=== PATIENT | female | born 1950 | race Caucasian/White ===

== ENCOUNTER 2016-10-14 11:25 | Emergency (ER) | payer OTHER ==
[~2016-10-14] VITALS: Ht 167.6 cm; Wt 85.0 kg
[~2016-10-14 11:25] MED LIST: ATOR40TA PO; ATOR40TA49 PO; ECASA PO; METO25 PO; THIA100T PO; WARF5 PO; WARF5TAB PO
[2016-10-14 11:29] VITALS: BP 147/74; PULSE 93; RESP 15; TEMP 97.9; O2SAT 95
--- NOTE | 2016-10-14 13:16 | PD ---
HPI Chief Complaint: General Weakness Time Seen by Provider: 13:06 Travel History International Travel<30 days: No Contact w/Intl Traveler<30days: No Traveled to known affect area: No History of Present Illness HPI The patient was seen and examined in the presence of the nurse. This patient complains of generalized weakness. Duration is one month. Severity is mild to moderate. No alleviating factors. She denies fever or vomiting or diarrhea or melena or rectal bleeding. She denies feeling depressed or anxious. She has not followed up with her primary physician for this. PFSH Past Medical History Hx Anticoagulant Therapy: Yes (WARFARIN) Cerebrovascular Accident: Yes Diminished Hearing: No Genitourinary: No Hypertension: Yes Musculoskeletal: No Neurologic: No Reproductive: No Respiratory: No ?: Not Menopausal: Yes Social History Alcohol Use: Yes (Last drank 2 weeks ago. ) Tobacco Use: No Substance Use: Yes Allergies-Medications (Allergen,Severity, Reaction): Coded Allergies: No Known Allergies (Unverified , 10/14/16) Reported Meds & Prescriptions Reported Meds & Active Scripts Active Coumadin (Warfarin Sod) 5 Mg Tab 5 Mg PO DAILY@16 30 Days Vitamin B1 (Thiamine HCl) 100 Mg Tab 100 Mg PO DAILY 30 Days Metoprolol Tartrate 25 mg (Metoprolol Tartrate) 25 Mg Tab 12.5 Mg PO Q12HR 30 Days Lipitor 40 Mg Tab (Atorvastatin Calcium) 40 Mg Tab 40 Mg PO HS 30 Days Aspirin EC (Aspirin) 325 Mg Tab 81 Mg PO DAILY 30 Days Review of Systems General / Constitutional: No: Fever Eyes: No: Visual changes HENT: No: Headaches Cardiovascular: No: Chest Pain or Discomfort Respiratory: No: Shortness of Breath Gastrointestinal: No: Abdominal Pain Genitourinary: No: Dysuria Musculoskeletal: Positive: Weakness, No: Pain Skin: No Rash Neurologic: Positive: Weakness Psychiatric: No: Depression Endocrine: No: Polydipsia Hematologic/Lymphatic: No: Easy Bruising Physical Exam Narrative GENERAL: Well-nourished, well-developed patient in no apparent distress. SKIN: Warm and dry. HEAD: Atraumatic. Normocephalic. EYES: Pupils equal and round. No scleral icterus. No injection or drainage. ENT: No nasal bleeding or discharge. Mucous membranes pink and moist. NECK: Trachea midline. No JVD. CARDIOVASCULAR: Regular rate and rhythm. No murmur appreciated. RESPIRATORY: No accessory muscle use. Clear to auscultation. Breath sounds equal bilaterally. GASTROINTESTINAL: Abdomen soft, non-tender, nondistended. Hepatic and splenic margins not palpable. MUSCULOSKELETAL: No obvious deformities. No clubbing. No cyanosis. No edema. NEUROLOGICAL: Awake and alert. No obvious cranial nerve deficits. Motor grossly within normal limits. Normal speech. PSYCHIATRIC: Appropriate mood and affect; insight and judgment normal. Data Data Last Documented VS Vital Signs Date Time Temp Pulse Resp B/P Pulse Ox O2 Delivery O2 Flow Rate FiO2 10/14/16 13:15 16 96 Room Air 10/14/16 11:29 97.9 93 147/74 Orders Complete Blood Count With Diff (10/14/16 13:09) Comprehensive Metabolic Panel (10/14/16 13:09) Urinalysis - C+S If Indicated (10/14/16 13:09) Labs Laboratory Tests Test 10/14/16 13:43 White Blood Count 8.3 TH/MM3 Red Blood Count 4.33 MIL/MM3 Hemoglobin 12.9 GM/DL Hematocrit 37.6 % Mean Corpuscular Volume 87.0 FL Mean Corpuscular Hemoglobin 29.7 PG Mean Corpuscular Hemoglobin 34.2 % Concent Red Cell Distribution Width 13.4 % Platelet Count 300 TH/MM3 Mean Platelet Volume 10.4 FL Neutrophils (%) (Auto) 57.8 % Lymphocytes (%) (Auto) 31.0 % Monocytes (%) (Auto) 5.8 % Eosinophils (%) (Auto) 4.0 % Basophils (%) (Auto) 1.4 % Neutrophils # (Auto) 4.8 TH/MM3 Lymphocytes # (Auto) 2.6 TH/MM3 Monocytes # (Auto) 0.5 TH/MM3 Eosinophils # (Auto) 0.3 TH/MM3 Basophils # (Auto) 0.1 TH/MM3 CBC Comment AUTO DIFF Differential Comment AUTO DIFF CONFIRMED Platelet Estimate NORMAL Platelet Morphology Comment HYPOGRAN Urine Color YELLOW Urine Turbidity CLEAR Urine pH 6.5 Urine Specific [place] 1.021 Urine Protein NEG mg/dL Urine Glucose (UA) NEG mg/dL Urine Ketones NEG mg/dL Urine Occult Blood NEG Urine Nitrite NEG Urine Bilirubin NEG Urine Urobilinogen 2.0 MG/DL Urine Leukocyte Esterase MOD Urine RBC 1 /hpf Urine WBC 3 /hpf Urine Squamous Epithelial 1 /hpf Cells Urine Bacteria RARE /hpf Urine Mucus FEW /lpf Microscopic Urinalysis Comment CULT NOT INDICATED Sodium Level 141 MEQ/L Potassium Level 4.9 MEQ/L Chloride Level 107 MEQ/L Carbon Dioxide Level 25.6 MEQ/L Anion Gap 8 MEQ/L Blood Urea Nitrogen 20 MG/DL Creatinine 0.93 MG/DL Estimat Glomerular Filtration 61 ML/MIN Rate Random Glucose 106 MG/DL Calcium Level 9.2 MG/DL Total Bilirubin 0.5 MG/DL Aspartate Amino Transf 50 U/L (AST/SGOT) Alanine Aminotransferase 33 U/L (ALT/SGPT) Alkaline Phosphatase 78 U/L Total Protein 8.0 GM/DL Albumin 3.9 GM/DL [facility] Medical Decision Making Medical Screen Exam Complete: Yes Emergency Medical Condition: Yes Medical Record Reviewed: Yes Differential Diagnosis Anemia, renal failure, flu syndrome, depression Narrative Course I have reviewed the patient's electronic medical record. Was seen here last year for adjustment disorder with depressed mood as well as intoxication of alcohol IV placed CBC is normal Metabolic profile is normal LFTs are normal Urinalysis is negative Patient's examination and vital signs are normal. Etiology of her jaws weakness is unclear but she is very stable for outpatient follow-up Diagnosis Primary Impression: Generalized weakness Additional Instructions: The patient was advised to follow up with their physician and return if they worsen. Med/Other Pt SpecificInfo: Other Disposition: 01 DISCHARGE HOME Condition: Stable Raul Ballard MD Oct 14, 2016 13:15
[2016-10-14 14:32] LABS: BACTERIA, URINE RARE /hpf; BLOOD, URINE NEG (NEG); COMMENT (UR) CULT NOT INDICATED; CULTURE IF INDICATED CULT NOT INDICATED; GLUCOSE,URINE NEG (NEG); KETONE, URINE NEG (NEG); MUCUS URINE FEW /lpf (OCC); NITRITE,URINE NEG (NEG); PH, URINE 6.5 (5.0-8.5); SQUAMOUS EPITHELIAL CELL URINE 1 /hpf (0-5); URINE COLOR YELLOW (YELLW/STRAW)
[2016-10-14 14:33] LABS: AUTOMATED NEUTROPHIL # 4.8 TH/MM3 (1.8-7.7); BASOPHIL # 0.1 TH/MM3 (0-0.2); BASOPHIL % 1.4 % (0.0-2.0); EOSINOPHIL # 0.3 TH/MM3 (0-0.4); HEMATOCRIT 37.6 % (35.0-46.0); LYMPHOCYTE # 2.6 TH/MM3 (1.0-4.8); MEAN CORPUSCULAR HEMOGLOBIN 29.7 PG (27.0-34.0); MEAN CORPUSCULAR HGB CONC 34.2 % (32.0-36.0); MONO % 5.8 % (0.0-8.0); NEUT % 57.8 % (16.0-70.0); PLATELET COUNT 300 TH/MM3 (150-450); RED BLOOD COUNT 4.33 MIL/MM3 (4.00-5.30); RED CELL DISTRIBUTION WIDTH 13.4 % (11.6-17.2); WHITE BLOOD COUNT 8.3 TH/MM3 (4.0-11.0)
[2016-10-14 14:37] LABS: HEMO FLAGS AUTO DIFF
[2016-10-14 14:49] LABS: ALKALINE PHOSPHATASE 78 U/L (45-117); TOTAL BILIRUBIN ADULT 0.5 MG/DL (0.2-1.0)
[2016-10-14 15:00] LABS: ALT (GPT) 33 U/L (10-53); ANION GAP 8 MEQ/L (5-15); AST (GOT) 50 U/L (15-37); BICARBONATE 25.6 MEQ/L (21.0-32.0); BLOOD UREA NITROGEN 20 MG/DL (7-18); CHLORIDE 107 MEQ/L (98-107); GLOMERULAR FILTRATION RATE 61 ML/MIN (>89); SODIUM (NA) 141 MEQ/L (136-145)
[2016-10-14 15:07] LABS: PLATELET ESTIMATE SMEAR NORMAL (NORMAL); PLATELET MORPHOLOGY HYPOGRAN (NORMAL); SCAN/DIFF AUTO DIFF CONFIRMED
[2016-10-14 15:18] LABS: POTASSIUM 4.9 MEQ/L (3.5-5.1)
[2016-10-14 16:30] VITALS: BP 132/76
[2016-10-28] MEDS ORDERED: VENTAER INH (11:56)
[2016-10-28] MEDS ORDERED: ALBU0.08 NEB (11:56)
[2016-10-28] MEDS ORDERED: ADVA250A INH (11:56)
[2016-10-28] MEDS ORDERED: METH125I2 IM (11:57)
== END 2016-10-14 16:35 | disposition home or self-care (01) ==
LOC: NEPE 11:25 → MERGE 11:25 → NEPE 16:35
DX: R53.1 Weakness (principal); I10 Essential (primary) hypertension; Z79.01 Long term (current) use of anticoagulants
CPT/HCPCS: 80053; 81001; 85025; 99284

== ENCOUNTER 2016-11-04 13:04 | Inpatient (IN) | payer OTHER ==
[2016-11-04] VITALS (7 sets, daily range): BP systolic 129–185; BP diastolic 67–91; PULSE 70–79; RESP 16–20; TEMP 98.2; O2SAT 90–99
[~2016-11-04] VITALS: Ht 165.1 cm; Wt 83.0 kg
[~2016-11-04 13:04] MED LIST changes: +ADVA250A INH; +ALBU0.08 NEB; -ATOR40TA PO; +VENTAER INH; -WARF5TAB PO
--- NOTE | 2016-11-04 13:21 | PD ---
Physical Exam Date Seen by Provider: Nov 04, 2016 Time Seen by Provider: 13:14 Narrative Patient seen in Triage with New onset difficulty with Speech and weakness and difficulty with walking. patient Denies MORGAN. Patient and Daughter are unsure of last time Normal. Patient denies Fever or Chills. Patient Oriented X3 but slow to respond. Patient has normal Finger to nose testing. Cannot spell WORLD backwards. Patient able to Ambulate. Vital Signs Stable. Patient awaiting Bed Placement. Data Data Last Documented VS Vital Signs Date Time Temp Pulse Resp B/P Pulse Ox O2 Delivery O2 Flow Rate FiO2 11/04/16 13:07 98.2 76 20 185/91 92 Room Air [facility] Medical Record Reviewed: Yes Supervised Visit with ANGEL: Yes Condition: Stable Panchito Douglas Nov 04, 2016 13:21
[2016-11-04] MEDS ORDERED: SODIUM CHLORIDE 0.9% FLUSH 10 ML FLUSH IVF PRN (13:45)
[2016-11-04 14:05] LABS: AUTOMATED NEUTROPHIL # 5.2 TH/MM3 (1.8-7.7); BASOPHIL # 0.1 TH/MM3 (0-0.2); BASOPHIL % 0.9 % (0.0-2.0); EOSINOPHIL # 0.1 TH/MM3 (0-0.4); EOSINOPHIL % 1.8 % (0.0-4.0); HEMATOCRIT 41.7 % (35.0-46.0); HEMO FLAGS DIFF FINAL; LYMPH % 24.6 % (9.0-44.0); MEAN CELL VOLUME 84.8 FL (80.0-100.0); MEAN CORPUSCULAR HEMOGLOBIN 28.3 PG (27.0-34.0); MEAN CORPUSCULAR HGB CONC 33.4 % (32.0-36.0); MONO % 7.8 % (0.0-8.0); NEUT % 64.9 % (16.0-70.0); PLATELET COUNT 267 TH/MM3 (150-450); RED BLOOD COUNT 4.92 MIL/MM3 (4.00-5.30); RED CELL DISTRIBUTION WIDTH 13.5 % (11.6-17.2)
[2016-11-04 14:12] LABS: APTT (PATIENT) 28.9 SEC (24.3-30.1)
[2016-11-04 14:17] LABS: ALT (GPT) 50 U/L (10-53); ANION GAP 7 MEQ/L (5-15); AST (GOT) 14 U/L (15-37); BICARBONATE 25.9 MEQ/L (21.0-32.0); BLOOD UREA NITROGEN 18 MG/DL (7-18); CHLORIDE 111 MEQ/L (98-107); GLOMERULAR FILTRATION RATE 76 ML/MIN (>89); POTASSIUM 3.5 MEQ/L (3.5-5.1); SODIUM (NA) 144 MEQ/L (136-145)
[2016-11-04 14:21] LABS: ALKALINE PHOSPHATASE 81 U/L (45-117); TOTAL BILIRUBIN ADULT 0.4 MG/DL (0.2-1.0)
[2016-11-04 14:23] LABS: BACTERIA, URINE FEW /hpf; BLOOD, URINE NEG (NEG); GLUCOSE,URINE NEG (NEG); HYALINE CAST, URINE 1 /lpf (RARE); KETONE, URINE NEG (NEG); MUCUS URINE FEW /lpf (OCC); NITRITE,URINE NEG (NEG); PH, URINE 5.5 (5.0-8.5); SQUAMOUS EPITHELIAL CELL URINE 2 /hpf (0-5); URINE COLOR DARK-YELLOW (YELLW/STRAW)
[2016-11-04 14:24] LABS: CREATINE KINASE 36 U/L (26-192)
[2016-11-04 14:25] LABS: COMMENT (UR) CATH-CULTURE IND; CULTURE IF INDICATED CATH CULTURE IND
[2016-11-04 14:27] LABS: AMPHETAMINE, URINE NEG (NEG); BARBITURATES, URINE NEG (NEG); COCAINE, URINE NEG (NEG)
--- NOTE | 2016-11-04 14:28 | RADRPT ---
EXAM DATE/TIME: 11/04/2016 13:44 [facility] COMPARISON: MRI BRAIN W/O CONTRAST, April 13, 2016, 12:37. CT BRAIN W/O CONTRAST, April 12, 2016, 10:48. INDICATIONS : Aphasia and unsteady gait with left facial droop. RADIATION DOSE: 56.35 CTDIvol (mGy) MEDICAL HISTORY : Stroke. Hypertension. SURGICAL HISTORY : None. ENCOUNTER: Initial ACUITY: 1 day PAIN SCALE: 0/10 LOCATION: cranial TECHNIQUE: Multiple contiguous axial images were obtained of the head. Using automated exposure control and adj ustment of the mA and/or kV according to patient size, radiation dose was kept as low as reasonably a chievable to obtain optimal diagnostic quality images. FINDINGS: CEREBRUM: There is 4.8 x 3.6 cm area of hypodensity in the left frontal lobe that is new compared to the prior studies of April 2016. There is mild mass effect on the anterior horns of the lateral ventricles and 3 mm midline shift to the left frontal lobe. No evidence of acute hemorrhage. POSTERIOR FOSSA: The cerebellum and brainstem are intact. The 4th ventricle is midline. The cerebellopontine angle i s unremarkable. EXTRACRANIAL: The visualized portion of the orbits is intact. SKULL: The calvaria is intact. No evidence of skull fracture. CONCLUSION: Prominent area of left frontal hypodensity indicating an acute infarct in the distrib ution of the left anterior cerebral artery/anterior division middle cerebral artery. Mild mass effect on the anterior horns of the lateral ventricle and mild left to right midline shift. No evidence of acute hemorrhage. Sami Mccarthy MD on November 04, 2016 at 14:14 Board Certified Radiologist. This report was verified electronically.
--- NOTE | 2016-11-04 14:30 | RADRPT ---
EXAM DATE/TIME: 11/04/2016 13:41 [facility] COMPARISON: CHEST SINGLE AP, April 12, 2016, 10:14. INDICATIONS : Patient has had stroke like symptoms since this morning. MEDICAL HISTORY : Hypertension. SURGICAL HISTORY : None. ENCOUNTER: Initial ACUITY: 1 day PAIN SCORE: 0/10 LOCATION: Bilateral chest FINDINGS: The cardiac silhouette is enlarged in transverse diameter. The lungs are free of acute parenchymal op acity. No effusions are identified. The aortic knob is prominent with tortuosity of the descending th oracic aorta. CONCLUSION: 1. Cardiomegaly. No acute pulmonary disease. Terrence Redd MD on November 04, 2016 at 14:16 Board Certified Radiologist. This report was verified electronically.
--- NOTE | 2016-11-04 14:56 | PD ---
HPI Chief Complaint: Neuro Symptoms/ Deficits Time Seen by Provider: 14:51 Travel History International Travel<30 days: No Contact w/Intl Traveler<30days: No Traveled to known affect area: No History of Present Illness HPI 65-year-old female with history of hypertension, CAD, VT, CVA, presents to emergency department for evaluation. She thinks she may have had a stroke. Patient's daughter states that she went to pick her up this morning and noticed that she was acting differently. She states she was very slow to respond and seemed "in a daze." She states when she spoke to her on the phone this morning she seemed very tired in the same way. The patient states that she woke up "in a fog." Denies any headache. No head trauma. No other focal deficits or weakness. Patient has not had any chest or tightness. She has had no recent illnesses, fever, or chills. Patient has not taken any of her prescribed Coumadin, antihypertensives, or antipsychotics for several months by her own will. She has no other symptoms to report at this time. PFSH Past Medical History Hx Anticoagulant Therapy: Yes (WARFARIN) Anxiety: Yes Depression: Yes Cardiovascular Problems: Yes Cerebrovascular Accident: Yes Diminished Hearing: No Genitourinary: No Hypertension: Yes Musculoskeletal: No Neurologic: No Reproductive: No Respiratory: No Myocardial Infarction: Yes (2016) Tetanus Vaccination: Unknown Influenza Vaccination: No ?: Not Menopausal: Yes : 3 Para: 3 Miscarriage: 0 : 0 Past Surgical History Surgical History: No Previous Surgery Social History Alcohol Use: Yes (HX) Tobacco Use: No Substance Use: No Allergies-Medications (Allergen,Severity, Reaction): Coded Allergies: No Known Allergies (Unverified , 10/14/16) Reported Meds & Prescriptions Reported Meds & Active Scripts Active No Active Prescriptions or Reported Medications Review of Systems Except as stated in HPI: all other systems reviewed are Neg Physical Exam Narrative GENERAL: Well-nourished female patient, in no acute distress SKIN: Focused skin assessment warm/dry. HEAD: Atraumatic. Normocephalic. Slight right sided facial paralysis noted most at rest. EYES: Pupils equal and round. No scleral icterus. No injection or drainage. EOMI. ENT: No nasal bleeding or discharge. Mucous membranes pink and moist. NECK: Trachea midline. No JVD. CARDIOVASCULAR: Regular rate and rhythm. No murmur appreciated. RESPIRATORY: No accessory muscle use. Clear to auscultation. Breath sounds equal bilaterally. GASTROINTESTINAL: Abdomen soft, non-tender, nondistended. Hepatic and splenic margins not palpable. MUSCULOSKELETAL: No obvious deformities. No clubbing. No cyanosis. No edema. Slight weakness in the right upper extremity when compared to left on ediscovery project manager strength. No pronator drift. Equal strength bilateral lower extremities. NEUROLOGICAL: Awake and alert. No obvious cranial nerve deficits. Motor grossly within normal limits. Delayed response but Clear speech. PSYCHIATRIC: Flat affect. Data Data Last Documented VS Vital Signs Date Time Temp Pulse Resp B/P Pulse Ox O2 Delivery O2 Flow Rate FiO2 11/04/16 13:42 96 Nasal Cannula 2 11/04/16 13:35 73 17 11/04/16 13:07 98.2 185/91 Orders Electrocardiogram (11/04/16 13:38) Prothrombin Time / Inr (Pt) (11/04/16 13:38) Act Partial Throm Time (Ptt) (11/04/16 13:38) Complete Blood Count With Diff (11/04/16 13:38) Comprehensive Metabolic Panel (11/04/16 13:38) Creatine Kinase (Cpk) (11/04/16 13:38) Drug Screen, Random Urine (11/04/16 13:38) Troponin I (11/04/16 13:38) Urinalysis - C+S If Indicated (11/04/16 13:38) Ct Brain W/O Iv Contrast(Rout) (11/04/16 13:38) Chest, Single Ap (11/04/16 13:38) Ecg Monitoring (11/04/16 13:38) Iv Access Insert/Monitor (11/04/16 13:38) Oximetry (11/04/16 13:38) Sodium Chloride 0.9% Flush (Ns Flush) (11/04/16 13:45) Urine Culture (11/04/16 14:10) Aspirin (Aspirin) (11/04/16 15:15) Consult Neurology (11/04/16 ) Labs Laboratory Tests Test 11/04/16 11/04/16 13:44 14:10 White Blood Count 8.0 TH/MM3 Red Blood Count 4.92 MIL/MM3 Hemoglobin 13.9 GM/DL Hematocrit 41.7 % Mean Corpuscular Volume 84.8 FL Mean Corpuscular Hemoglobin 28.3 PG Mean Corpuscular Hemoglobin 33.4 % Concent Red Cell Distribution Width 13.5 % Platelet Count 267 TH/MM3 Mean Platelet Volume 9.4 FL Neutrophils (%) (Auto) 64.9 % Lymphocytes (%) (Auto) 24.6 % Monocytes (%) (Auto) 7.8 % Eosinophils (%) (Auto) 1.8 % Basophils (%) (Auto) 0.9 % Neutrophils # (Auto) 5.2 TH/MM3 Lymphocytes # (Auto) 2.0 TH/MM3 Monocytes # (Auto) 0.6 TH/MM3 Eosinophils # (Auto) 0.1 TH/MM3 Basophils # (Auto) 0.1 TH/MM3 CBC Comment DIFF FINAL Differential Comment Prothrombin Time 11.0 SEC Prothromb Time International 1.0 RATIO Ratio Activated Partial 28.9 SEC Thromboplast Time Sodium Level 144 MEQ/L Potassium Level 3.5 MEQ/L Chloride Level 111 MEQ/L Carbon Dioxide Level 25.9 MEQ/L Anion Gap 7 MEQ/L Blood Urea Nitrogen 18 MG/DL Creatinine 0.77 MG/DL Estimat Glomerular Filtration 76 ML/MIN Rate Random Glucose 105 MG/DL Calcium Level 9.3 MG/DL Total Bilirubin 0.4 MG/DL Aspartate Amino Transf 14 U/L (AST/SGOT) Alanine Aminotransferase 50 U/L (ALT/SGPT) Alkaline Phosphatase 81 U/L Total Creatine Kinase 36 U/L Troponin I LESS THAN 0.02 NG/ML Total Protein 7.6 GM/DL Albumin 3.7 GM/DL Urine Color DARK-YELLOW Urine Turbidity HAZY Urine pH 5.5 Urine Specific [place] 1.033 Urine Protein TRACE mg/dL Urine Glucose (UA) NEG mg/dL Urine Ketones NEG mg/dL Urine Occult Blood NEG Urine Nitrite NEG Urine Bilirubin NEG Urine Urobilinogen 2.0 MG/DL Urine Leukocyte Esterase SMALL Urine RBC LESS THAN 1 /hpf Urine WBC 4 /hpf Urine Squamous Epithelial 2 /hpf Cells Urine Bacteria FEW /hpf Urine Hyaline Casts 1 /lpf Urine Mucus FEW /lpf Microscopic Urinalysis Comment CATH-CULTURE IND Urine Opiates Screen NEG Urine Barbiturates Screen NEG Urine Amphetamines Screen NEG Urine Benzodiazepines Screen NEG Urine Cocaine Screen NEG Urine Cannabinoids Screen NEG MDM Medical Decision Making Medical Screen Exam Complete: Yes Emergency Medical Condition: Yes Medical Record Reviewed: Yes Differential Diagnosis CVA versus TIA versus electrolyte abnormality Narrative Course 65-year-old female presents to the emergency department. Patient appears without distress. She is slow to respond to my questions but answers them appropriately. Questionable right sided facial paralysis at rest with slight weakness in ediscovery project manager strength of the right upper extremity. CT imaging of the brain is complete and shows Last Impressions Head CT 11/04/16 1338 Signed Impressions: Service Date/Time: October 13:44 - CONCLUSION: Prominent area of left frontal hypodensity indicating an acute infarct in the distribution of the left anterior cerebral artery/anterior division middle cerebral artery. Mild mass effect on the anterior horns of the lateral ventricle and mild left to right midline shift. No evidence of acute hemorrhage. Sami Mccarthy MD Chest X-Ray 11/04/168 Signed Impressions: Service Date/Time: October 13:41 - CONCLUSION: 1. Cardiomegaly. No acute pulmonary disease. Terrence Redd MD CBC and CMP are without acute concern. Troponin is less than 0.02. Urinalysis is hazy with small leukocyte esterase, few bacteria, few mucus. Culture is indicated. I discussed the patient with my attending physician Dr. Ballard. Will wait on culture to treat UTI. A call has a place to Dr. Mcnulty. [id number] Mcnulty regarding CT results. He requests admission to medicine. Aspirin 325 mg daily. He will come and evaluate her in the emergency department. A call has been made to [facility] for admission. Diagnosis Primary Impression: CVA (cerebral vascular accident) Qualified Code: I63.9 - Cerebrovascular accident (CVA), unspecified mechanism Admitting Information Admitting Physician Requests: Admit Scripts No Active Prescriptions or Reported Meds Condition: Stable Shaina Fuentes Nov 04, 2016 14:56
[2016-11-04] MEDS ORDERED: ASPIRIN 325 MG TAB PO ONE (15:15)
[2016-11-04] MEDS ORDERED: SODIUM CHLORIDE 0.9% FLUSH 10 ML FLUSH IV FLUSH PRN (15:30)
[2016-11-04] MEDS ORDERED: DEXTROSE 50% IN WATER 50 ML VIAL(D50) IV PUSH PRN (15:30)
[2016-11-04] MEDS ORDERED: GLUCAGON 1 MG/ML VIAL IM/SQ PRN (15:30)
[2016-11-04] MEDS: SODIUM CHLOR 0.9% 1000 ML INJ 1,000 ML IV SCH (15:55)
[2016-11-04] MEDS: INSULIN ASPART SUPPLEMENTAL SCALE SQ SCH ×2 (16:00→21:00)
[2016-11-04] MEDS ORDERED: RESP: ALBUTEROL 2.5 MG/IPRATROPIUM 0.5 MG NEB (PRN) NEB (16:45)
[2016-11-04] MEDS ORDERED: ENALAPRILAT 1.25 MG/ML VIAL IV PRN (16:45)
--- NOTE | 2016-11-04 16:51 | MB ---
cc: DALLAS HARO M.D. DATE OF CONSULTATION: 11/04/2016 REASON FOR CONSULTATION Stroke. HISTORY OF PRESENT ILLNESS Ms. Rivas is a 65-year-old female who has a history of previous stroke many years ago for which she was on Coumadin but no longer takes Coumadin. This morning she woke up and was having some trouble with her thoughts, was feeling somewhat vague, some difficulty getting words out and thought she had some mild weakness on the right side. She woke up with these symptoms. She came to the emergency room and on CT scan she was found to have a left hemisphere stroke. PAST MEDICAL HISTORY She has a history of previous stroke in the past a number of years ago. No known history of atrial fibrillation, history of coronary artery disease, [place], hypertension. ALLERGIES NONE KNOWN. MEDICATIONS Medications at home are none. NEUROLOGIC EXAMINATION VITAL SIGNS: Blood pressure is 185/91, pulse 76, respirations 20, temperature 98 degrees. Higher cortical function: She is alert, oriented x2. Her speech is somewhat slow but is fluent. No evidence of any definite aphasia. She follows commands well. Cranial nerves intact. On motor exam she has got 5/5 strength of all groups. There is a mild pronator drift right upper extremity. She does have weakness of the right leg at 4/5. Fine motor skills are normal. Reflexes 2+ symmetric in the upper and lower extremities. IMAGING CT of the brain shows an area of hypodensity in the left frontal area consistent with acute stroke in the distribution of the left anterior cerebral artery. LABORATORY DATA The white count is 8000, hemoglobin 13.9, hematocrit 41%, platelets 267,000. PT 11, INR 1, APTT 28.9. Sodium is 144, potassium 3.5, chloride 111, CO2 is 25.9, the BUN is 18, creatinine 0.77, GFR 76, glucose 105, AST 14, ALT is 50. Tox screen negative. EKG sinus rhythm. IMPRESSION Left anterior cerebral artery distribution stroke. RECOMMENDATIONS Start aspirin 325 mg daily. We will obtain an MRI/MRA of the brain, lipid panel, carotid ultrasound and echocardiogram. Monitor cardiac telemetry, rule out atrial fibrillation. MD LINDA Muñiz/RAF /3:29 PM /4:39 PM
--- NOTE | 2016-11-04 16:58 | HHI.HP ---
HPI Service [facility] Primary Care Physician Ronda Mims MD Admission Diagnosis Acute CVA Diagnoses: Chief Complaint: Feeling down Travel History International Travel<30 Days: No Contact w/Intl Traveler <30 Da: No Traveled to Known Affected Are: No History of Present Illness 65-year-old female with past medical history of CAD, CVA, COPD, HTN who presented for altered mental status. The patient states that she's been feeling down for the past few days. She denies any acute worsening today. She complains of feeling generally weak, no focal weakness. She complains of some lightheadedness. She denies any chest pain, shortness breath, palpitations, vision changes, headache, slurred speech. She states she's been able to ambulate. Reportedly, the patient's daughter had noted that the patient was acting strange today and was slow to respond. The patient denies any recent illness, fever, chills, nausea, vomiting, diarrhea. The patient states that she is only taking breathing treatments at home, on no other medications. She states the date is November 08, 2016, knows she's in [place], knows her date. Review of Systems Except as stated in HPI: all other systems reviewed are Neg Past Family Social History Past Medical History Hypertension Coronary artery disease with history of [place] COPD Past Surgical History None Reported Medications "Breathing treatments" Allergies: Coded Allergies: No Known Allergies (Unverified , 10/14/16) Active Ordered Medications Current Medications Medications (Trade) Dose Ordered Sig/Ora Route Start Time Stop Time Status Last Admin (NS Flush) 2 ml BID IV FLUSH 11/04/16 21:00 Sodium Chloride 2 ml 2 ml UNSCH PRN IV FLUSH 11/04/16 15:30 (NS 1000 ml Inj) 1,000 ml @ 70 mls/hr [id number] IV 11/04/16 15:29 11/04/16 15:55 (Aspirin) 325 mg DAILY PO 11/05/16 09:00 (D50w (Vial) Inj) 25 ml UNSCH PRN IV PUSH 11/04/16 15:30 (Glucagon Inj) 1 mg UNSCH PRN IM/SQ 11/04/16 15:30 Family History Reviewed, patient denies any pertinent family history related to current chief complaint Social History 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 In no acute distress. Slow to respond sometimes. Avoids eye contact. SKIN: Warm and dry. No lesions noted. HEENT: Normocephalic. Pupils equal and round. Mucous membranes pink and moist. CARDIOVASCULAR: Regular rate and rhythm. No murmur appreciated. RESPIRATORY: No accessory muscle use. Clear to auscultation. Breath sounds equal bilaterally. GASTROINTESTINAL: Abdomen soft, non-tender, nondistended. Bowel sounds x4. MUSCULOSKELETAL: No obvious deformities. No clubbing or cyanosis. No edema. NEUROLOGICAL: Awake and alert. No focal neurological deficits. Moves upper and lower extremities spontaneously. Normal speech. Cranial nerves grossly intact. Strength 5/5. PSYCHIATRIC: Appropriate mood and a bit odd affect; insight and judgment fair to normal. Laboratory Laboratory Tests Test 11/04/16 11/04/16 13:44 14:10 White Blood Count 8.0 Red Blood Count 4.92 Hemoglobin 13.9 Hematocrit 41.7 Mean Corpuscular Volume 84.8 Mean Corpuscular Hemoglobin 28.3 Mean Corpuscular Hemoglobin 33.4 Concent Red Cell Distribution Width 13.5 Platelet Count 267 Mean Platelet Volume 9.4 Neutrophils (%) (Auto) 64.9 Lymphocytes (%) (Auto) 24.6 Monocytes (%) (Auto) 7.8 Eosinophils (%) (Auto) 1.8 Basophils (%) (Auto) 0.9 Neutrophils # (Auto) 5.2 Lymphocytes # (Auto) 2.0 Monocytes # (Auto) 0.6 Eosinophils # (Auto) 0.1 Basophils # (Auto) 0.1 CBC Comment DIFF FINAL Differential Comment Prothrombin Time 11.0 Prothromb Time International 1.0 Ratio Activated Partial 28.9 Thromboplast Time Sodium Level 144 Potassium Level 3.5 Chloride Level 111 Carbon Dioxide Level 25.9 Anion Gap 7 Blood Urea Nitrogen 18 Creatinine 0.77 Estimat Glomerular Filtration 76 Rate Random Glucose 105 Calcium Level 9.3 Total Bilirubin 0.4 Aspartate Amino Transf 14 (AST/SGOT) Alanine Aminotransferase 50 (ALT/SGPT) Alkaline Phosphatase 81 Total Creatine Kinase 36 Troponin I LESS THAN 0.02 Total Protein 7.6 Albumin 3.7 Urine Color DARK-YELLOW Urine Turbidity HAZY Urine pH 5.5 Urine Specific [place] 1.033 Urine Protein TRACE Urine Glucose (UA) NEG Urine Ketones NEG Urine Occult Blood NEG Urine Nitrite NEG Urine Bilirubin NEG Urine Urobilinogen 2.0 Urine Leukocyte Esterase SMALL Urine RBC LESS THAN 1 Urine WBC 4 Urine Squamous Epithelial 2 Cells Urine Bacteria FEW Urine Hyaline Casts 1 Urine Mucus FEW Microscopic Urinalysis Comment CATH-CULTURE IND Urine Opiates Screen NEG Urine Barbiturates Screen NEG Urine Amphetamines Screen NEG Urine Benzodiazepines Screen NEG Urine Cocaine Screen NEG Urine Cannabinoids Screen NEG Date/Time Procedure Status Source Growth 11/04/16 14:10 Urine Culture Received Urine Catheterized Urine Pending Result Diagram: 11/04/16 1344 11/04/16 1344 Imaging Last Impressions Head CT 11/04/168 Signed Impressions: Service Date/Time: October 13:44 - CONCLUSION: Prominent area of left frontal hypodensity indicating an acute infarct in the distribution of the left anterior cerebral artery/anterior division middle cerebral artery. Mild mass effect on the anterior horns of the lateral ventricle and mild left to right midline shift. No evidence of acute hemorrhage. Sami Mccarthy MD Chest X-Ray 11/04/168 Signed Impressions: Service Date/Time: October 13:41 - CONCLUSION: 1. Cardiomegaly. No acute pulmonary disease. 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 Previously on Coumadin. Head CT today shows prominent area of left frontal hypodensity indicating an possible acute infarct. Neuro exam nonfocal. UDS clean. Neurology contacted from the ED. -Stroke workup, stroke navigator consult, neuro checks -Brain MRI/MRA, carotid ultrasound, echocardiogram -Telemetry monitoring -PT/OT/ST -Started on aspirin -Permissive hypertension, IVF, head of bed flat -Swallow eval prior to diet -Check hemoglobin A1c and lipid profile COPD: O2 and nebs as needed. Abnormal UA: UA with evidence of questionable UTI, however urine sent for culture. No specific urinary complaints. Empiric Macrobid and follow-up urine culture. DVT prophylaxis: SCDs Written by Cristiano Feliz, acting as scribe for Dr. Pacheco on 11/04/16 at 16:56. Discussed Condition With Patient Cristiano Feliz Nov 04, 2016 16:58 Prabha Pacheco MD Nov 05, 2016 12:44
[2016-11-04] MEDS: NITROFURANTOIN MONOHYD MACROCR 100 MG CAP PO SCH (17:31)
--- NOTE | 2016-11-04 17:36 | RADRPT ---
EXAM DATE/TIME: 11/04/2016 17:04 [facility] COMPARISON: CT BRAIN W/O CONTRAST, November 04, 2016, 13:44. MRI BRAIN W/O CONTRAST, April 13, 2016, 12:37. INDICATIONS : CVA. Left sided facial droop, left sided weakness and slurred speech. MEDICAL HISTORY : Myocardial infarction. Hypertension. Stroke SURGICAL HISTORY : None. ENCOUNTER: Initial ACUITY: 1 day PAIN SCORE: 0/10 LOCATION: Head. TECHNIQUE: Multiplanar, multisequence MRI of the brain was performed without contrast. FINDINGS: CEREBRUM: 6.8 x 3.7 cm area of restricted diffusion in the left frontal lobe with corresponding abnormality on ADC map images indicating an acute infarct. Correlating hyperintensity is seen on the T2-weighted ly ges. Multiple small scattered foci of restricted diffusion are noted in the high frontoparietal regio ns bilaterally. There is a 1.3 cm area of restricted diffusion in the paramidline right frontal lobe immediately adjacent to the left frontal lobe infarct. 1.3 cm area of restricted diffusion in the lef t caudate nucleus. Focal 3 mm left to right frontal lobe midline shift. The ventricles are normal for age. No evidence of hemorrhage. No extraaxial fluid collections are seen. The pituitary gland and suprasellar cistern are normal in configuration. WHITE MATTER: No significant signal abnormalities are seen in the white matter. POSTERIOR FOSSA: The cerebellum and brainstem are intact. The 4th ventricle is midline. The cerebellopontine angle is unremarkable. The cerebellar tonsils are normal in position. EXTRACRANIAL: The visualized portions of the orbits and paranasal sinuses are unremarkable. CONCLUSION: Multiple acute infarcts. Large acute infarct in the anterior left frontal lobe involv ing left JOE and anterior MCA distributions. 1 cm acute infarct in the paramidline right frontal lobe . 1 cm infarct in the left caudate nucleus. Multiple small scattered infarcts bilaterally in the fron toparietal lobes. The multifocal nature of the abnormality suggests embolic infarcts. No evidence of hemorrhage. There is mass effect with mild left to right frontal midline shift. Sami Mccarthy MD on November 04, 2016 at 17:27 Board Certified Radiologist. This report was verified electronically.
--- NOTE | 2016-11-04 17:49 | RADRPT ---
EXAM DATE/TIME: 11/04/2016 17:04 [facility] COMPARISON: MRI BRAIN W/O CONTRAST, November 04, 2016, 17:04. MRA BRAIN W/O CONTRAST, April 13, 2016, 12:37. INDICATIONS : CVA. Left sided weakness, left sided facial droop and aphasia. MEDICAL HISTORY : Myocardial infarction. Hypertension. Stroke SURGICAL HISTORY : None. ENCOUNTER: Initial ACUITY: 1 day PAIN SCORE: 0/10 LOCATION: Head. Please note a normal MRA of the brain does not entirely exclude the possibility of a small aneurysm, nor the possibility of distal intracranial vessel disease. TECHNIQUE: 3D time of flight MRA was performed. Source images, multiplanar STS MIP, and 3D volume MIP reconstru ctions were reviewed. FINDINGS: The appearance is very similar to the 2016 exam. Poor signal is seen within the intercavernous ICAs b ilaterally as well as the M1 segments bilaterally. There is poor signal within the A1 segments bilate rally. The poor signal within the left A1 segment is a new finding. There is collateralization as the re is some signal within the peripheral branches of the MCA territories and JOE territories bilateral ly. A focal high grade stenosis is again noted involving the left P1 origin. CONCLUSION: 1. Similar to the 2016 exam with poor flow involving both ICAs and M1 segments. There is collateraliz ation to the peripheral distribution of the middle cerebral arteries bilaterally. 2. Interval development of poor flow within the left A1 segment. The right A1 segment remains without flow. There is faint signal within the anterior cerebral arteries bilaterally suggesting collaterali zation. 3. Unchanged high-grade stenosis of the left P1 origin. Peña Diana Jr., MD on November 04, 2016 at 17:34 Board Certified Radiologist. This report was verified electronically.
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
[2016-11-04 19:00] LABS: HEMOGLOBIN A1a 0.8 %; HEMOGLOBIN A1b 1.6 %; HEMOGLOBIN Ao 86.5 %; HEMOGLOBIN LA1C 2.1 %; HEMOGLOBIN P3 3.6 %
[2016-11-04] MEDS: SODIUM CHLORIDE 0.9% FLUSH 10 ML FLUSH IV FLUSH SCH (20:50)
[2016-11-05] VITALS (12 sets, daily range): BP systolic 112–198; BP diastolic 55–122; PULSE 67–125; RESP 18; TEMP 97.1–98.1; O2SAT 93–98
[2016-11-05] MEDS: SODIUM CHLOR 0.9% 1000 ML INJ 1,000 ML IV SCH ×2 (05:47→20:05)
[2016-11-05] MEDS: INSULIN ASPART SUPPLEMENTAL SCALE SQ SCH ×4 (07:00→21:00)
--- NOTE | 2016-11-05 08:48 | EC ---
Study Study Date:11/04/2016 STUDY CONCLUSIONS SUMMARY - Left ventricle: The cavity size was normal. Wall thickness was normal. Systolic function was normal. The estimated ejection fraction was in the range of 55% to 60%. Hypokinesis of the anteroseptal myocardium. - Mitral valve: Severe regurgitation. If LV function is below 40, please consider prescribing an ACEI or ARB or document rationale for non-use. PROCEDURE DATA STUDY STATUS: Elective. Procedure: Transthoracic echocardiography. Image quality was good. Scanning was performed from the parasternal, apical, and subcostal acoustic windows. Study completion: The patient tolerated the procedure well. Transthoracic echocardiography. M-mode, complete 2D, complete spectral Doppler, and color Doppler. Patient status: Inpatient. CARDIAC ANATOMY LEFT VENTRICLE: The cavity size was normal. Wall thickness was normal. Systolic function was normal. The estimated ejection fraction was in the range of 55% to 60%. Regional wall motion abnormalities: Hypokinesis of the anteroseptal myocardium. AORTIC VALVE: Trileaflet; normal thickness leaflets. Doppler: Transvalvular velocity was within the normal range. There was no stenosis. No regurgitation. AORTA: Aortic root: The aortic root was normal in size. MITRAL VALVE: Structurally normal valve. Doppler: Transvalvular velocity was within the normal range. There was no evidence for stenosis. Severe regurgitation. Mean gradient: 2mm Hg (D). Peak gradient: 5mm Hg (D). LEFT ATRIUM: The atrium was normal in size. RIGHT VENTRICLE: The cavity size was normal. Wall thickness was normal. PULMONIC VALVE: Doppler: Transvalvular velocity was within the normal range. There was no evidence for stenosis. No regurgitation. TRICUSPID VALVE: Structurally normal valve. Doppler: Transvalvular velocity was within the normal range. No regurgitation. PULMONARY ARTERY: The main pulmonary artery was normal-sized. Systolic pressure was within the normal range. RIGHT ATRIUM: The atrium was normal in size. PERICARDIUM: There was no pericardial effusion. SYSTEMIC VEINS: Inferior vena cava: The vessel was normal in size. BASIC MEASUREMENTS ADULT Normal Left ventricle LV internal dimension, ED, chordal level, 50 mm 43-52 PLAX LV internal dimension, ES, chordal level, *39.2 mm 23-38 PLAX Fractional shortening, chordal level, PLAX *22 % >29 LV posterior wall thickness, ED 7.37 mm IVS/LVPW ratio, ED *1.64 <1.3 Ventricular septum Septal thickness, ED 12.1 mm Aortic valve Leaflet separation 18 mm 15-26 Left atrium Anterior-posterior dimension 40 mm Right ventricle RV internal dimension, ED, PLAX *18.8 mm 19-38 BASIC MEASUREMENTS ADULT Normal Aortic valve Leaflet separation 18 mm 15-26 Aorta Root diameter, ED 32 mm 20-37 DOPPLER MEASUREMENTS ADULT Normal Main pulmonary artery Pressure, S 13 mm Hg =30 Aortic valve Peak velocity, S 158 cm/s VTI, S 45 cm Mitral valve Peak E-wave velocity 82.4 cm/s Peak A-wave velocity 49.9 cm/s Mean velocity, D 71.9 cm/s Mean gradient, D 2 mm Hg Peak gradient, D 5 mm Hg Peak E/A ratio 1.7 Maximal regurgitant velocity 592 cm/s Tricuspid valve Regurgitant peak velocity 138 cm/s Peak RV-RA gradient, S 8 mm Hg Maximal regurgitant velocity 138 cm/s Systemic veins Estimated CVP 5 mm Hg Right ventricle RV pressure, S 13 mm Hg <30 LEGEND: Mean values are shown as u=mean value. Asterisk (*) meza values outside specified normal range. Prepared and signed by Aldo Sethi [id number]
[2016-11-05] MEDS: SODIUM CHLORIDE 0.9% FLUSH 10 ML FLUSH IV FLUSH SCH ×2 (09:00→21:00)
[2016-11-05 09:05] LABS: HDL CHOLESTEROL 35.8 MG/DL (40.0-60.0)
[2016-11-05] MEDS: NITROFURANTOIN MONOHYD MACROCR 100 MG CAP PO SCH ×2 (09:15→18:42)
[2016-11-05] MEDS: ASPIRIN 325 MG TAB PO SCH (09:15)
[2016-11-05] MEDS: HEPARIN SODIUM - SQ 10,000 UNITS/ML VIAL SQ SCH ×2 (12:55→21:24)
--- NOTE | 2016-11-05 13:08 | HHI.PR ---
Subjective Remarks pt's daughter told me that the pt never been compliant to her meds including ( coumadin 0which she was supposed to be on Objective Vitals Vital Signs Date Time Temp Pulse Resp B/P Pulse Ox O2 Delivery O2 Flow Rate FiO2 11/05/16 12:00 98.1 72 18 137/69 95 11/05/16 10:28 96 21 11/05/16 08:00 97.4 70 18 112/55 93 11/05/16 07:00 67 11/05/16 04:00 97.4 83 18 160/78 98 11/05/16 02:00 97.4 85 18 164/82 98 11/05/16 01:28 78 18 153/65 98 Nasal Cannula 2 11/04/16 21:22 79 18 143/74 95 Nasal Cannula 2 11/04/16 20:27 72 16 138/67 98 Nasal Cannula 2 11/04/16 19:18 75 17 129/70 99 Nasal Cannula 2 11/04/16 16:08 94 Nasal Cannula 1.00 11/04/16 15:56 70 17 151/73 97 Nasal Cannula 2 11/04/16 13:42 96 Nasal Cannula 2 11/04/16 13:42 90 Room Air 11/04/16 13:35 73 17 93 Room Air I/O 11/04/16 11/04/16 11/04/16 11/05/16 11/05/16 11/05/16 07:00 15:00 23:00 07:00 15:00 23:00 Intake Total 240 ml 200 ml Balance 240 ml 200 ml Intake Oral 240 ml 200 ml # Voids 1 Result Diagram: 11/04/16 1344 11/04/16 1344 Imaging Last Impressions Head CT 11/04/168 Signed Impressions: Service Date/Time: October 13:44 - CONCLUSION: Prominent area of left frontal hypodensity indicating an acute infarct in the distribution of the left anterior cerebral artery/anterior division middle cerebral artery. Mild mass effect on the anterior horns of the lateral ventricle and mild left to right midline shift. No evidence of acute hemorrhage. Sami Mccarthy MD Chest X-Ray 11/04/161337 Signed Impressions: Service Date/Time: October 13:41 - CONCLUSION: 1. Cardiomegaly. No acute pulmonary disease. Terrence Redd MD Head Magnetic Resonance Angiography 11/04/16 Signed Impressions: Service Date/Time: October 17:04 - CONCLUSION: 1. Similar to the 2016 exam with poor flow involving both ICAs and M1 segments. There is collateralization to the peripheral distribution of the middle cerebral arteries bilaterally. 2. Interval development of poor flow within the left A1 segment. The right A1 segment remains without flow. There is faint signal within the anterior cerebral arteries bilaterally suggesting collateralization. 3. Unchanged high-grade stenosis of the left P1 origin. Peña Diana Jr., MD Carotid Artery Ultrasound 11/04/16 Signed Impressions: Service Date/Time: October 17:35 - CONCLUSION: Elevation of the peak systolic velocity of the right proximal internal carotid artery as well as the ICA/CCA ratio suggestive of 50-69%% stenosis of the right proximal internal carotid artery. Roderick Christopher MD Brain MRI 11/04/16 Signed Impressions: Service Date/Time: October 17:04 - CONCLUSION: No evidence of hemorrhage. There is mass effect with mild left to right frontal midline shift. Sami Mccarthy MD Objective Remarks GENERAL: This is a well-nourished, well-developed patient, in no apparent distress. SKIN: No rashes, warm and dry HEAD: Atraumatic. Normocephalic. EYES: Pupils equal round and reactive. Extraocular motions intact. No scleral icterus. ENT: Nose without bleeding, or drainage, Airway patent. NECK: Trachea midline. Supple CARDIOVASCULAR: Regular rate and rhythm without murmurs, gallops, or rubs. RESPIRATORY: Fair air entry bilaterally. No wheezes, rales, or rhonchi. GASTROINTESTINAL: Abdomen soft, non-tender, nondistended. Positive bowel sounds MUSCULOSKELETAL: Extremities without clubbing, cyanosis, or edema. Pedal pulses appreciated NEUROLOGICAL: Cranial nerves II-12 intact, Awake and alert. Moves all extremity. Normal speech.no focal neurological deficit A/P Assessment and Plan 65-year-old female with past medical history of CAD, CVA, COPD, HTN who presented for altered mental status Acute left hemispheric stroke distributed in the frontal lobe MRI of the brain showed Multiple acute infarcts. Large acute infarct in the anterior left frontal lobe involving left JOE and anterior MCA distributions. 1 cm acute infarct in the paramidline right frontal lobe. 1 cm infarct in the left caudate nucleus. Multiple small scattered infarcts bilaterally in the frontoparietal lobes. The multifocal nature of the abnormality suggests embolic infarcts. 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 Previously on Coumadin. Head CT today shows prominent area of left frontal hypodensity indicating an possible acute infarct. Neuro exam nonfocal. UDS clean. Neurology contacted from the ED. -Stroke workup, stroke navigator consult, neuro checks -Brain MRI/MRA, carotid ultrasound all reviewed personally by ks ultrasound showing 50-69%, 2-D echo pending -Telemetry monitoring -PT/OT/ST -Started on aspirin -Permissive hypertension, IVF, head of bed flat -Swallow eval prior to diet - Pending hemoglobin A1c, - lipid profile showing LDL of 104 otherwise within normal limit will defer for neurology to decide on starting statin COPD: O2 and nebs as needed. Abnormal UA: UA with evidence of questionable UTI, however urine sent for culture. No specific urinary complaints. Empiric Macrobid and follow-up urine culture. DVT prophylaxis: Prabha Medina MD Nov 05, 2016 13:08
--- NOTE | 2016-11-05 17:00 | EKG ---
Date Performed: 11/04/2016 Time Performed: 14:02:36 PTAGE: 65 years EKG: Sinus rhythm MODERATE VOLTAGE CRITERIA FOR LVH, CONSIDER NORMAL VARIANT INFERIOR MYOCARDIAL INFARCTION ANTEROSEPT AL MYOCARDIAL INFARCTION ABNORMAL ECG Compared to prior tracing no significant change PREVIOUS TRACING : 04/12/2016 22.36 DOCTOR: Cezar Bean Interpretating Date/Time 02/02/2017 14:30:17
--- NOTE | 2016-11-05 18:32 | HHI.PR ---
Review/Management Diagnosis multiple bialteral CVA, most prominent in left frontal--probably embolic diminished flow in Bilateral ICA, MCA. Plan continue asa for now, but will likely require anticoagulation in near future. Would not anticoagulate now due to hemorrhagic risk CTA neck and brain to follow up on MRA findings---r/o vasculitis start statin for elevated LDL. Diagnosis/Plan: Subjective Subjective Comments No acute events reported still has difficulty expressing words. Active Medications Current Medications Medications (Trade) Dose Ordered Sig/Ora Route Start Time Stop Time Status Last Admin (NS Flush) 2 ml BID IV FLUSH 11/04/16 21:00 11/05/16 09:00 Sodium Chloride 2 ml 2 ml UNSCH PRN IV FLUSH 11/04/16 15:30 (NS 1000 ml Inj) 1,000 ml @ 70 mls/hr [id number] IV 11/04/16 15:29 11/04/16 15:55 (Aspirin) 325 mg DAILY PO 11/05/16 09:00 11/05/16 09:15 (D50w (Vial) Inj) 25 ml UNSCH PRN IV PUSH 11/04/16 15:30 (Glucagon Inj) 1 mg UNSCH PRN IM/SQ 11/04/16 15:30 (Vasotec Inj) 1.25 mg Q4H PRN IV 11/04/16 16:45 (Macrobid) 100 mg BIDPC PO 11/04/16 18:00 11/05/16 09:15 (Heparin Inj) 5,000 units Q8HR SQ 11/05/16 14:00 11/05/16 12:55 Allergies Allergies Coded Allergies No Known Allergies (Unverified10/14/16) Exam I&O / VS 11/04/16 11/04/16 11/05/16 15:00 23:00 07:00 Intake Total 240 ml 200 ml Balance 240 ml 200 ml Intake Oral 240 ml 200 ml # Voids 1 Vital Signs Date Time Temp Pulse Resp B/P Pulse Ox O2 Delivery O2 Flow Rate FiO2 11/05/16 17:18 95 21 11/05/16 16:00 97.7 85 18 135/86 95 11/05/16 15:00 85 11/05/16 12:00 98.1 72 18 137/69 95 11/05/16 10:28 96 21 11/05/16 08:00 97.4 70 18 112/55 93 11/05/16 07:00 67 11/05/16 04:00 97.4 83 18 160/78 98 11/05/16 02:00 97.4 85 18 164/82 98 11/05/16 01:28 78 18 153/65 98 Nasal Cannula 2 11/04/16 21:22 79 18 143/74 95 Nasal Cannula 2 11/04/16 20:27 72 16 138/67 98 Nasal Cannula 2 11/04/16 19:18 75 17 129/70 99 Nasal Cannula 2 Exam Comments alert, moderate expressive aphasia. follows commands cn intact motor 5/5 bue and ble Objective Radiology Results MRA brain--reduced flow in bilateral ICA, M1 segments and posterior circulation carotid US---right ICA stenosis echo--anteroseptal hypokinesies in septum MRI brain--several bilateral strokes, largest in left frontal --likely embolic. Micro and Labs Laboratory Tests Test 11/05/16 08:21 Triglycerides Level 114 Cholesterol Level 163 LDL Cholesterol 104 HDL Cholesterol 35.8 Cholesterol/HDL Ratio 4.55 Date/Time Procedure Status Source Growth 11/04/16 14:10 Urine Culture - Preliminary Resulted Urine Catheterized Urine IMMATURE GROWTH - REINCUBATE [place] Mcnulty PhD Nov 05, 2016 18:32
[2016-11-05] MEDS ORDERED: IOHEXOL 350 MG/ML 10 ML VIAL (for RAD DIAG) IV ONE (20:08)
--- NOTE | 2016-11-05 21:29 | RADRPT ---
EXAM DATE/TIME: 11/05/2016 19:50 [facility] COMPARISON: MRA BRAIN W/O CONTRAST, November 04, 2016, 17:04. CTA BRAIN W 3D RECON, April 15, 2016, 10:35. INDICATIONS : Acute cerebrovascular accident. Abnormal MRA brain. IV CONTRAST: 75 cc Omnipaque 350 (iohexol) IV ; Cumulative dose for multiple exams. RADIATION DOSE: 14.25 CTDIvol (mGy) ; Combined studies MEDICAL HISTORY : Cerebrovascular disease. Hypertension. SURGICAL HISTORY : None. ENCOUNTER: Initial ACUITY: 1 day PAIN SCALE: 0/10 LOCATION: Cranial TECHNIQUE: Volumetric scanning was performed using a multi-row detector CT scanner. The data was post processed with a variety of visualization algorithms including full volume maximum intensity projection, multi -planar sliding thin slab reformation, curved planar reformation, and surface rendering techniques. Using automated exposure control and adjustment of the mA and/or kV according to patient size, radiat ion dose was kept as low as reasonably achievable to obtain optimal diagnostic quality images. FINDINGS: Again, there is poor flow within the proximal middle cerebral arteries bilaterally with visualization of the distal branches of the middle cerebral arteries. Again the findings are similar to previous examination in April of 2016 and are suggestive of vasculitis or moyamoya variant. There is evid ence of filling of the anterior cerebral arteries bilaterally which is somewhat decreased compared to April of 2016 suggesting some degree of vasculitis involving the anterior cerebral arteries on t paula's examination which was not present in April of 2016. The posterior circulation is well raeann led and is normal in appearance. No stenosis or occlusion of the basilar artery or posterior cerebra l arteries is noted on today's examination. No aneurysm formation is noted. CONCLUSION: 1. Chronic poor visualization of the proximal middle cerebral arteries bilaterally with filling of th e distal branches of the middle cerebral arteries. The findings are consistent with probable chronic vasculitis or moyamoya variant. There is filling of the anterior cerebral arteries bilaterally which is somewhat decreased compared to the previous examination in April of 2016 suggesting interval development of vasculitis involving the anterior cerebral arteries on today's examination. 2. Normal appearing posterior circulation. Roderick Christopher MD on November 05, 2016 at 21:11 Board Certified Radiologist. This report was verified electronically.
--- NOTE | 2016-11-05 21:35 | RADRPT ---
EXAM DATE/TIME: 11/05/2016 19:50 [facility] COMPARISON: CTA CAROTID ARTERIES W 3D RECON, April 15, 2016, 10:35. INDICATIONS : Acute cerebrovascular accident. Abnormal ultrasound. IV CONTRAST: 75 cc Omnipaque 350 (iohexol) IV ; Cumulative dose for multiple exams. RADIATION DOSE: 14.25 CTDIvol (mGy) ; Combined studies MEDICAL HISTORY : Cerebrovascular disease. Hypertension. SURGICAL HISTORY : None. ENCOUNTER: Initial ACUITY: 1 day PAIN SCALE: 0/10 LOCATION: Neck Elevated flow velocities and ICA/CCA ratios have been found to correlate with increased degrees of vessel stenosis, calculated as percentage of diameter relative to a normal segment of distal ICA/CCA. TECHNIQUE: Volumetric scanning was performed using a multirow detector CT scanner. The data was post processed with a variety of visualization algorithms including full-volume maximum intensity projection, multip lanar sliding thin-slab reformation, curved-planar reformation, and surface-rendering techniques. Us ing automated exposure control and adjustment of the mA and/or kV according to patient size, radiatio n dose was kept as low as reasonably achievable to obtain optimal diagnostic quality images. FINDINGS: There is evidence of occlusion of the right proximal internal carotid artery with no significant tayla nstitution distally. The left proximal internal carotid artery demonstrates very minimal stenosis se condary to partially calcified atherosclerotic plaque. The bilateral common and external carotid art eries are patent. The arch is unremarkable with a normal three vessel configuration. No stenosis or occlusion of the great vessels is noted. The vertebral arteries are patent bilaterally. CONCLUSION: 1. Occlusion of the right proximal internal carotid artery. 2. Very minimal stenosis involving the left proximal internal carotid artery. Roderick Christopher MD on November 05, 2016 at 21:18 Board Certified Radiologist. This report was verified electronically.
[2016-11-06] VITALS (8 sets, daily range): BP systolic 130–149; BP diastolic 59–84; PULSE 61–93; RESP 18; TEMP 97.2–99.1; O2SAT 95–99
[2016-11-06] MEDS: HEPARIN SODIUM - SQ 10,000 UNITS/ML VIAL SQ SCH ×3 (06:06→22:46)
[2016-11-06] MEDS: INSULIN ASPART SUPPLEMENTAL SCALE SQ SCH ×4 (06:08→21:00)
[2016-11-06] MEDS: ASPIRIN 325 MG TAB PO SCH (08:31)
[2016-11-06] MEDS: NITROFURANTOIN MONOHYD MACROCR 100 MG CAP PO SCH ×2 (08:32→18:27)
[2016-11-06] MEDS: SODIUM CHLORIDE 0.9% FLUSH 10 ML FLUSH IV FLUSH SCH ×2 (08:32→21:00)
[2016-11-06] MEDS ORDERED: ATORVASTATIN 20 MG TAB PO SCH (09:00)
[2016-11-06] MEDS: SODIUM CHLOR 0.9% 1000 ML INJ 1,000 ML IV SCH (10:23)
--- NOTE | 2016-11-06 11:55 | HHI.PR ---
Subjective Remarks Patient is laying in bed, she has a lab affect but she still follow commands, she told me she is not, she denied headache blurry vision chest pain or shortness of breath her daughter was at the bedside she told me that the behavior of her mother is definitely not the normal. Neurology recommending anticoagulation later on,Also Order CTA or brain Objective Vitals Vital Signs Date Time Temp Pulse Resp B/P Pulse Ox O2 Delivery O2 Flow Rate FiO2 11/06/16 09:00 97.2 88 18 149/80 98 11/06/16 04:00 97.4 68 18 130/59 95 11/06/16 00:00 97.3 80 18 132/84 95 11/06/16 00:00 97.3 80 18 132/84 95 11/05/16 20:00 190/115 11/05/16 20:00 97.1 125 198/122 94 11/05/16 19:00 73 11/05/16 17:18 95 21 11/05/16 16:00 97.7 85 18 135/86 95 11/05/16 15:00 85 11/05/16 12:00 98.1 72 18 137/69 95 I/O 11/05/16 11/05/16 11/05/16 11/06/16 11/06/16 11/06/16 07:00 15:00 23:00 07:00 15:00 23:00 Intake Total 200 ml 440 ml Balance 200 ml 440 ml Intake Oral 200 ml 440 ml # Voids 2 3 # Bowel Movements 2 1 Result Diagram: 11/04/16 1344 11/04/16 1344 Objective Remarks GENERAL: This is a well-nourished, well-developed patient, in no apparent distress. SKIN: No rashes, warm and dry HEAD: Atraumatic. Normocephalic. EYES: Pupils equal round and reactive. Extraocular motions intact. No scleral icterus. ENT: Nose without bleeding, or drainage, Airway patent. NECK: Trachea midline. Supple CARDIOVASCULAR: Regular rate and rhythm without murmurs, gallops, or rubs. RESPIRATORY: Fair air entry bilaterally. No wheezes, rales, or rhonchi. GASTROINTESTINAL: Abdomen soft, non-tender, nondistended. Positive bowel sounds MUSCULOSKELETAL: Extremities without clubbing, cyanosis, or edema. Pedal pulses appreciated NEUROLOGICAL: Cranial nerves II-12 intact, Awake and alert. Moves all extremity. Normal speech.Flat affect A/P Assessment and Plan 11/06: Appreciate neurology recommendation, patient will need anticoagulation later on, will avoid now due to risk of hemorrhage Started on Lipitor, continue neurochecks, discussed with the nurse, more of flat affect and behavior changes consistent with frontal lobe stroke A/P: 65-year-old female with past medical history of CAD, CVA, COPD, HTN who presented for altered mental status Acute multiple left hemispheric stroke distributed in the frontal lobe MRI of the brain showed Multiple acute infarcts. Large acute infarct in the anterior left frontal lobe involving left JOE and anterior MCA distributions. 1 cm acute infarct in the paramidline right frontal lobe. 1 cm infarct in the left caudate nucleus. Multiple small scattered infarcts bilaterally in the frontoparietal lobes. The multifocal nature of the abnormality suggests embolic infarcts. 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 Previously on Coumadin. Head CT today shows prominent area of left frontal hypodensity indicating an possible acute infarct. Neuro exam nonfocal. UDS clean. Neurology contacted from the ED. -Stroke workup, stroke navigator consult, neuro checks -Brain MRI/MRA, carotid ultrasound all reviewed personally by [facility] showing right carotid stenosis 50-69%, 2-D echo pending -Telemetry monitoring -PT/OT/ST -Started on aspirin -Permissive hypertension, IVF, head of bed flat -Swallow eval prior to diet - Pending hemoglobin A1c, - lipid profile showing LDL of 104, started Lipitor 20 mg daily COPD: O2 and nebs as needed. Abnormal UA: UA with evidence of questionable UTI, however urine sent for culture. No specific urinary complaints. Empiric Macrobid and follow-up urine culture. DVT prophylaxis: Prabha Medina MD Nov 06, 2016 11:55
--- NOTE | 2016-11-06 15:40 | RADRPT ---
EXAM DATE/TIME: 11/06/2016 15:21 [facility] COMPARISON: MRI BRAIN W/O CONTRAST, November 04, 2016, 17:04. CT BRAIN W/O CONTRAST, November 04, 2016, 13:44. INDICATIONS : Altered mental status. RADIATION DOSE: 49.01 CTDIvol (mGy) MEDICAL HISTORY : Stroke. Cardiovascular disease Hypertension. SURGICAL HISTORY : None. ENCOUNTER: Initial ACUITY: 1 day PAIN SCALE: Non-responsive LOCATION: cranial TECHNIQUE: Multiple contiguous axial images were obtained of the head. Using automated exposure control and adj ustment of the mA and/or kV according to patient size, radiation dose was kept as low as reasonably a chievable to obtain optimal diagnostic quality images. FINDINGS: CEREBRUM: Encephalomalacia in the left frontal and anterior parietal region is similar in distribution to prior examination 2 days ago. No evidence of hemorrhage. There is no midline shift. The old infarction in the white matter left mid convexity parietal region measuring 8 mm is stable in size. No evidence of blood products. No extra-axial fluid or blood. MRI had demonstrated several other small in acut e infarctions; these are not discernible on the CT. POSTERIOR FOSSA: The cerebellum and brainstem are intact. The 4th ventricle is midline. The cerebellopontine angle i s unremarkable. EXTRACRANIAL: The visualized portion of the orbits is intact. SKULL: The calvaria is intact. No evidence of skull fracture. CONCLUSION: Stable size and appearance to the acute left frontal and anterior parietal infarction and compared to CT. No evidence of acute blood products. No new CT findings. Peña Pak MD on November 06, 2016 at 15:34 Board Certified Radiologist. This report was verified electronically.
[2016-11-06] MEDS ORDERED: SODIUM CHLOR 0.9% 1000 ML INJ 1,000 ML IV SCH (18:00)
--- NOTE | 2016-11-06 18:00 | HHI.PR ---
Subjective Remarks talking alittle less acc to nurse Objective Vital Signs Date Time Temp Pulse Resp B/P Pulse Ox O2 Delivery O2 Flow Rate FiO2 11/06/16 17:49 97.7 74 18 138/71 98 11/06/16 13:59 99.1 76 18 148/68 96 11/06/16 09:00 97.2 88 18 149/80 98 11/06/16 08:05 61 11/06/16 04:00 97.4 68 18 130/59 95 11/06/16 00:00 97.3 80 18 132/84 95 11/06/16 00:00 97.3 80 18 132/84 95 11/05/16 20:00 190/115 11/05/16 20:00 97.1 125 198/122 94 11/05/16 19:00 73 I/O 11/05/16 11/05/16 11/05/16 11/06/16 11/06/16 11/06/16 07:00 15:00 23:00 07:00 15:00 23:00 Intake Total 200 ml 440 ml 360 ml Balance 200 ml 440 ml 360 ml Intake Oral 200 ml 440 ml 360 ml # Voids 2 3 2 # Bowel Movements 2 1 Result Diagram: 11/04/16 1344 11/04/16 1344 Objective Remarks vff face sym abulic 5/5 bue and ble toes down Assessment and Plan Assessment and Plan abulic can say some things some confusion and likley some aphasia cta r ica occluded and cta clint less fillling than 2016 she had left>r cva now and likely arango arango disease needs to see [facility] or tertiary center transfer was off her coumadin little to no flow in bilat mca kepp perfusion pressure up recheck mri for any inc cva Terrence Flores MD Nov 06, 2016 18:00
--- NOTE | 2016-11-06 19:44 | RADRPT ---
EXAM DATE/TIME: 11/06/2016 19:02 [facility] COMPARISON: MRI BRAIN W/O CONTRAST, November 04, 2016, 17:04. INDICATIONS : Altered mental status. Unresponsive. MEDICAL HISTORY : Hypertension. Myocardial infarction. CVA SURGICAL HISTORY : None. ENCOUNTER: Initial ACUITY: 1 day PAIN SCORE: 0/10 LOCATION: cranial TECHNIQUE: Multiplanar, multisequence MRI of the brain was performed without contrast. FINDINGS: SUPRATENTORIAL: The overall pattern of multifocal acute infarction is unchanged from prior exam 11/04/16 with a large area of restricted diffusion in the left frontal and parietal region extending to the corpus callosum and with multiple other smaller areas of restricted diffusion in the left high convexity medial beto etal region, right frontal, right mid parietal and right premotor gyrus. There are no new areas rest ricted diffusion. No evidence of acute blood products. No extra-axial fluid collections. The ventr icles are stable in size. No evidence of midline shift. POSTERIOR FOSSA: The cerebellum and brainstem are intact. The 4th ventricle is midline. The cerebellopontine angle is unremarkable. The cerebellar tonsils are normal in position. EXTRACRANIAL: The visualized portions of the orbits and paranasal sinuses are unremarkable. CONCLUSION: Stable distribution and size to the nonhemorrhagic acute infarctions multifocal supratentorial brain with the largest area of involvement in left frontal parietal region. Peña Pak MD on November 06, 2016 at 19:38 Board Certified Radiologist. This report was verified electronically.
[2016-11-08 13:52] LABS: ANA SCREEN NEG (NEG)
[2016-11-08 15:53] LABS: RAPID PLASMA REAGIN SCREEN NON-REACTIVE (NON-REACTVE)
== END 2016-11-07 00:14 | disposition short-term general hospital (02) | DRG 64 ==
LOC: NEPE 13:04 → MERGE 15:46 → NEDA 15:46 → NEDH 19:49 → N05B 11-05 01:45
PROVIDERS: ADMIT Hospitalist; ATTEND Hospitalist
DX: I63.423 Cerebral infarction due to embolism of bilateral anterior cerebral arteries (principal); G93.40 Encephalopathy, unspecified; I67.5 Moyamoya disease; I63.413 Cerebral infarction due to embolism of bilateral middle cerebral arteries; I11.9 Hypertensive heart disease without heart failure; R29.810 Facial weakness; J44.9 Chronic obstructive pulmonary disease, unspecified; I25.2 Old myocardial infarction; I25.10 Atherosclerotic heart disease of native coronary artery without angina pectoris; I65.21 Occlusion and stenosis of right carotid artery; R47.01 Aphasia; F32.9 Major depressive disorder, single episode, unspecified; F41.9 Anxiety disorder, unspecified; Z86.73 Personal history of transient ischemic attack (TIA), and cerebral infarction without residual deficits; Z91.14 Patient's other noncompliance with medication regimen
CPT/HCPCS: 70450; 70496; 70498; 70544; 70551; 71010; 80053; 80061; 80307; 81001; 81240; 81241; 82550; 82948; 83036; 84484; 85025; 85303; 85306; 85610; 85652; 85730; 86038; 86147; 86592; 87086; 93005; 93306; 93880; J1644; J7030; Q9967

== ENCOUNTER 2016-11-17 20:40 | Inpatient (IN) | payer MEDICAID, OTHER ==
[~2016-11-17] VITALS: Ht 165.1 cm; Wt 88.4 kg
[~2016-11-17 20:40] MED LIST changes: -ATOR40TA49 PO; -ECASA PO; -METO25 PO; -THIA100T PO; -WARF5 PO
[2016-11-17 23:00] VITALS: O2SAT 100
[2016-11-17 23:10] VITALS: BP 133/77; PULSE 80; PULSE 81; RESP 17; TEMP 98.5; O2SAT 100
[2016-11-18] VITALS (20 sets, daily range): BP systolic 94–142; BP diastolic 52–74; PULSE 64–90; RESP 11–13; TEMP 98.1–99.3; O2SAT 98–100
[2016-11-18 02:39] LABS: BLOOD GAS BASE EXCESS 4.7 mmol/L (-2-2); BLOOD GAS CARBOXYHEMOGLOBIN 1.5 % (0-4); BLOOD GAS HCO3 28 mmol/L (22-26); BLOOD GAS METHEMOGLOBIN 0.8 % (0-2); BLOOD GAS O2 HGB SATURATION 97 % (90-100); BLOOD GAS OXYGEN CONTENT 12.3 Vol % (12.0-20.0); BLOOD GAS PCO2 35 mmHg (38-42); BLOOD GAS PO2 180 mmHg (61-120); BLOOD GAS TOTAL HGB 8.7 G/DL (12.0-16.0); TEMP CORR TO 98.6
[2016-11-18 02:42] LABS: CRITICAL VALUE YES; FIO2 40 %; OXYGEN DEVICE VENTILATOR; VENT SETTINGS AC 12/500/PEEP5
[2016-11-18 02:43] LABS: DRAW SITE RT RADIAL; NUMBER OF ARTERIAL PUNCTURES 1; STAT NO; ULNAR PULSE PRESENT
[2016-11-18] MEDS ORDERED: MISCELLANEOUS NURSING INFORMATION XX SCH (03:30)
[2016-11-18] MEDS ORDERED: CHLORHEXIDINE GLUCONATE 2 % 1 PACK (2 CLOTHS) TOP PRN (03:30)
[2016-11-18] MEDS: CHLORHEXIDINE GLUCONATE 2 % 1 PACK (2 CLOTHS) TOP SCH (04:00)
[2016-11-18] MEDS: RESP: ALBUTEROL 2.5 MG/IPRATROPIUM 0.5 MG NEB (SCH) INH ×4 (04:02→20:48)
[2016-11-18 04:17] LABS: BLOOD GAS BASE EXCESS 4.7 mmol/L (-2-2); BLOOD GAS CARBOXYHEMOGLOBIN 1.6 % (0-4); BLOOD GAS HCO3 29 mmol/L (22-26); BLOOD GAS METHEMOGLOBIN 0.8 % (0-2); BLOOD GAS O2 HGB SATURATION 97 % (90-100); BLOOD GAS OXYGEN CONTENT 12.5 Vol % (12.0-20.0); BLOOD GAS PCO2 40 mmHg (38-42); BLOOD GAS PO2 146 mmHg (61-120); TEMP CORR TO 98.6
[2016-11-18 04:18] LABS: CRITICAL VALUE NO; DRAW SITE RT RADIAL; FIO2 40 %; NUMBER OF ARTERIAL PUNCTURES 1; OXYGEN DEVICE VENTILATOR; STAT NO; ULNAR PULSE PRESENT; VENT SETTINGS AC 10/450/PEEP5
[2016-11-18 04:50] LABS: AUTOMATED NEUTROPHIL # 8.4 TH/MM3 (1.8-7.7); BASOPHIL # 0.1 TH/MM3 (0-0.2); BASOPHIL % 0.9 % (0.0-2.0); EOSINOPHIL # 0.3 TH/MM3 (0-0.4); EOSINOPHIL % 2.9 % (0.0-4.0); HEMATOCRIT 27.6 % (35.0-46.0); HEMO FLAGS DIFF FINAL; LYMPH % 13.7 % (9.0-44.0); LYMPHOCYTE # 1.5 TH/MM3 (1.0-4.8); MEAN CELL VOLUME 85.4 FL (80.0-100.0); MEAN CORPUSCULAR HEMOGLOBIN 27.8 PG (27.0-34.0); MEAN CORPUSCULAR HGB CONC 32.6 % (32.0-36.0); MONO % 5.8 % (0.0-8.0); NEUT % 76.7 % (16.0-70.0); PLATELET COUNT 296 TH/MM3 (150-450); RED BLOOD COUNT 3.23 MIL/MM3 (4.00-5.30); RED CELL DISTRIBUTION WIDTH 14.2 % (11.6-17.2)
--- NOTE | 2016-11-18 04:55 | RADRPT ---
EXAM DATE/TIME: 11/18/2016 04:06 [facility] COMPARISON: CHEST SINGLE AP, November 04, 2016, 13:41. INDICATIONS : Shortness of breath, possible pulmonary disease. MEDICAL HISTORY : Hypertension. Myocardial infarction. CVA SURGICAL HISTORY : None. ENCOUNTER: Initial ACUITY: 1 day PAIN SCORE: 0/10 LOCATION: Bilateral chest FINDINGS: A single view of the chest demonstrates interstitial densities and left lower lobe density. Heart mil dly enlarged. Endotracheal tube with tip 4.5 cm above ted. Nasogastric tube tip in stomach. The c ardiomediastinal contours are unremarkable. Osseous structures are intact. CONCLUSION: 1. Interval development of interstitial densities likely interstitial edema. 2. Left lower lobe density likely atelectasis. Jason Dominguez MD on November 18, 2016 at 4:51 Board Certified Radiologist. This report was verified electronically.
[2016-11-18 05:14] LABS: MAGNESIUM 2.4 MG/DL (1.5-2.5)
[2016-11-18] MEDS: HEPARIN SODIUM - SQ 10,000 UNITS/ML VIAL SQ SCH ×3 (06:12→21:05)
[2016-11-18] MEDS: SODIUM CHLOR 0.9% 1000 ML INJ 1,000 ML IV SCH ×2 (06:13→15:29)
[2016-11-18] MEDS: FOLIC ACID 1 MG TAB OG-TUBE SCH (08:55)
[2016-11-18] MEDS: PANTOPRAZOLE SODIUM 40 MG VIAL IV SCH (08:55)
[2016-11-18] MEDS: levETIRAcetam INJ 500 MG in SODIUM CHLORIDE 0.9% INJ 100 ML IV SCH ×2 (08:55→20:47)
[2016-11-18] MEDS: levETIRAcetam 1000 MG INJ 100 ML IV SCH ×2 (08:55→20:47)
[2016-11-18] MEDS: ATORVASTATIN 40 MG TAB PO SCH (08:55)
[2016-11-18] MEDS: DOCUSATE SODIUM 100 MG CAP OG-TUBE SCH ×2 (08:56→20:47)
[2016-11-18] MEDS: ASPIRIN 81 MG CHEW TAB NG SCH (08:59)
[2016-11-18] MEDS: BROMOCRIPTINE MESYLATE 2.5 MG TAB OG-TUBE SCH ×2 (09:00→20:46)
[2016-11-18] MEDS: SODIUM CHLORIDE 0.9% FLUSH 10 ML FLUSH IV FLUSH SCH ×2 (09:01→19:58)
[2016-11-18] MEDS: CHLORHEXIDINE 0.12% (ORAL KIT) 15 ML CUP MT SCH ×2 (09:02→20:48)
[2016-11-18 09:19] LABS: BICARBONATE 28.7 MEQ/L (21.0-32.0); POTASSIUM 4.5 MEQ/L (3.5-5.1)
--- NOTE | 2016-11-18 09:28 | MB ---
cc: ADINA TRINH M.D. DATE OF CONSULTATION 11/18/2026 HISTORY OF PRESENT ILLNESS The patient is a 65-year-old woman with a history of stroke in the fall of last year on Coumadin but had come off of it. She woke up on 11/03/2016, had trouble getting her thoughts together, difficulty getting her words out, was found have left frontal more than right frontal infarct and history of Moyamoya disease. She was sent up to the [facility]. Initially when Dr. Mcnulty saw her in 11/04/2016 she was following commands. She had normal strength except some weakness in the right lower extremity, 4/5. She had some abulia, possibly a slight aphasia. She went up to the [facility]; they did an arteriogram consistent with Moyamoya. They were going to go an extracranial/intracranial bypass but then she had a seizure wound up being intubated and was in status epilepticus and then found to have a new right frontal infarct and was still intubated and subsequently transferred back here on Dilantin and Keppra as they felt there was nothing acutely to do. I am asked to see her again. I had seen her on 11/06/2016 covering for the weekend. She was abulic but could say some things. She had some confusion, some aphasia. CTA showed a right internal carotid artery occlusion and the JOE was filling less than it was in 2016. She had very poor flow in the MCAs bilateral proximally. She had a left greater than right stroke. She had an MRI of 11/06/2016 which showed a moderate to moderately large-sized left frontal infarct, an infarct on the medial right frontal lobe was small and some other few scattered infarcts in the right frontal and JOE territory. No hemorrhage was noted. CURRENT MEDICATIONS 1. Protonix. 2. Colace. 3. 325 of aspirin done NG tube. 4. Keppra 1500 q. 12. 5. Lipitor. 6. Bromocriptine 2.5 q. 12. 7. Folic acid. 8. Subcu heparin 5000 q. 8. 9. Some p.r.n. narcotics. PAST MEDICAL HISTORY 1. CAD. 2. Stroke. 3. COPD. 4. Hypertension. MEDICATIONS Just some inhalers when she initially had come in. ALLERGIES No known drug allergies. 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 Does not drink in general. Not a smoker or drug user. FAMILY HISTORY Unable to obtain. PHYSICAL EXAMINATION VITAL SIGNS: 99.3, generally afebrile. 142/74, 77, 98% O2 sats on the vent. GENERAL: She is on the ventilator. NECK: No left carotid bruit. On the right I could not get to that region. HEART: Regular rhythm. I do not detect a murmur. NEUROLOGIC: The pupils are equal. There is no reaction to threat bilaterally. With a pinch she does open her eyes but again no reaction to threat bilaterally. The toes are downgoing to mute bilaterally. She has a normal tone in upper and lower extremities bilaterally, not following any commands. LABORATORY DATA Hematocrit 27.6, otherwise CBC is normal. Sed rate was 17 on last admission. ABGs 7.47, 41, 46. Basic metabolic profile essentially normal. Hemoglobin A1c normal. Calcium, phosphorus, LFTs all normal on the last admission as was the CPK and troponin. LDL cholesterol was 104. B12 was 1200. TSH was slightly elevated at 5.2 last fall. RPR has been negative as was hepatitis screen. MINISTERIO has been normal. IgM antiphospholipid antibody was elevated at 17.5 on last admission. UA on last admission was essentially normal. Urine drug screen was negative. Dilantin level this morning 12.4. Hyper-coag screen otherwise was negative. Prothrombin screen was negative. Albumin was normal in the past. She is no longer on Dilantin here. IMPRESSION AND PLAN Moyamoya disease, evidently bilateral. Significant infarct now. Recheck an MRI of her brain and an EEG and further recommendations at that time. MD ALICE Kendall/LONNY /8:21 AM /9:11 AM
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
--- NOTE | 2016-11-18 12:48 | HHI.HP ---
[facility] Service Critical Care Medicine Primary Care Physician Unknown Admission Diagnosis Diagnosis: (1) Moyamoya disease Diagnosis: Secondary (2) Seizure (3) CVA (cerebral vascular accident) Diagnosis: Principal (4) Respiratory failure, acute Diagnosis: Secondary (5) COPD (chronic obstructive pulmonary disease) Diagnosis: Secondary Travel History International Travel<30 Days: No Contact w/Intl Traveler <30 Da: No Traveled to Known Affected Are: No History of Present Illness 65-year-old female with past medical history of stroke for which she at one point was on warfarin but had been discontinued. She was was admitted to [facility] emergency department 11/04/16 with difficulty getting her thoughts together. She was found to have multifocal nonhemorrhagic infarcts in left frontal and parietal regions, right frontal lobe and history of moyamoya disease. She was initially awake and following commands with weakness of RLE and some aphasia. She was transferred to [facility] where he had an cerebral angiogram consistent with moyamoya. There were plans to perform extracranial/intracranial bypass. However she had a seizure and ended up being intubated for status either 11/09 or 11/10.. She was found to have a new right frontal infarct area and she was started on Dilantin and Keppra and it was felt that she would not be a candidate for intervention. She has been intubated 9-10 days and apparently she has been tolerating C Pap trials to some extent but mental status prevents extubation. Treating team was discussing with family trach/PEG. Apparently family requested transfer back to [place] because they live locally here and wanted her closer to home. Apparently she had been sedated initially with propofol but then was on Precedex from 11/12-11/14. Appears she has been off all continuous sedation since 11/14. Past Family Social History Allergies: Coded Allergies: No Known Allergies (Unverified , 10/14/16) Past Medical History Hypertension Coronary artery disease with history of myocardial infarction COPD Past Surgical History None Reported Medications Nutren 1.5 goal rate 50 mL/h Tylenol when necessary Aspirin 325 mg by mouth daily Lipitor 40 g by mouth daily Bromocriptine 2.5 mill grams by mouth twice a day Colace 100 mg by mouth twice a day Folic acid 1 mg by mouth daily Heparin 5000 units subcutaneous every 8 hours Pantoprazole daily Multivitamin daily Thiamine 100 mg by mouth daily Venlafaxine 25 mg by mouth daily Family History Unable to obtain from patient due to clinical condition. Social History She used to drink wine. No history of tobacco or illicit drug use. Physical Exam Vital Signs Vital Signs Date Time Temp Pulse Resp B/P Pulse Ox O2 Delivery O2 Flow Rate FiO2 11/18/16 11:50 99 40 11/18/16 08:10 99 40 11/18/16 08:00 99.1 75 12 94/52 99 11/18/16 08:00 75 11/18/16 08:00 40 11/18/16 06:45 40 11/18/16 06:00 77 11/18/16 04:01 98 40 11/18/16 04:00 90 11/18/16 04:00 99.3 90 13 142/74 98 11/18/16 02:00 79 11/18/16 01:15 99 40 11/18/16 00:00 73 11/17/16 23:10 98.5 80 17 133/77 100 11/17/16 23:10 81 11/17/16 23:00 100 40 11/17/16 23:00 100 40 Physical Exam GENERAL: Critically ill-appearing female SKIN: Warm and dry. HEAD: Atraumatic. Normocephalic. EYES: Pupils equal and round, 3 mm and reactive. No scleral icterus. No injection or drainage. ENT: No nasal bleeding or discharge. Mucous membranes pink and moist. NECK: Trachea midline. No JVD. CARDIOVASCULAR: Regular rate and rhythm. 2/6 systolic murmur left sternal border. RESPIRATORY: On mechanical ventilation, not over breathing the vent on current settings. Clear to auscultation. Breath sounds equal bilaterally. GASTROINTESTINAL: Abdomen soft, non-tender, nondistended. Bowel sounds present MUSCULOSKELETAL: Extremities without clubbing, cyanosis. NEUROLOGICAL: Eyes open intermittently and open to deep noxious stimuli. She does not track or respond to visual threat. Babinski's are upgoing bilaterally. There is extensor posturing of left upper extremity to noxious stimuli. Appears to withdraw and then extend with right upper extremity to noxious stimuli. Laboratory Laboratory Tests Test 11/17/16 11/18/16 11/18/16 11/18/16 23:30 02:28 04:09 04:35 Nasal Screen MRSA (PCR) NEGATIVE Blood Gas Puncture Site RT RADIAL RT RADIAL Blood Gas Patient Temperature 98.6 98.6 Blood Gas HCO3 28 29 Blood Gas Base Excess 4.7 4.7 Blood Gas Oxygen Saturation 97 97 Arterial Blood pH 7.51 7.47 Arterial Blood Partial 35 40 Pressure CO2 Arterial Blood Partial 180 146 Pressure O2 Arterial Blood Oxygen Content 12.3 12.5 Arterial Blood 1.5 1.6 Carboxyhemoglobin Arterial Blood Methemoglobin 0.8 0.8 Blood Gas Hemoglobin 8.7 9.0 Oxygen Delivery Device VENTILATOR VENTILATOR Blood Gas Ventilator Setting AC AC 12/500/PEEP5 10/450/PEEP5 Blood Gas Inspired Oxygen 40 40 White Blood Count 11.0 Red Blood Count 3.23 Hemoglobin 9.0 Hematocrit 27.6 Mean Corpuscular Volume 85.4 Mean Corpuscular Hemoglobin 27.8 Mean Corpuscular Hemoglobin 32.6 Concent Red Cell Distribution Width 14.2 Platelet Count 296 Mean Platelet Volume 8.7 Neutrophils (%) (Auto) 76.7 Lymphocytes (%) (Auto) 13.7 Monocytes (%) (Auto) 5.8 Eosinophils (%) (Auto) 2.9 Basophils (%) (Auto) 0.9 Neutrophils # (Auto) 8.4 Lymphocytes # (Auto) 1.5 Monocytes # (Auto) 0.6 Eosinophils # (Auto) 0.3 Basophils # (Auto) 0.1 CBC Comment DIFF FINAL Differential Comment Sodium Level 139 Potassium Level 4.5 Chloride Level 102 Carbon Dioxide Level 28.7 Anion Gap 8 Blood Urea Nitrogen 26 Creatinine 0.64 Estimat Glomerular Filtration 94 Rate Random Glucose 103 Calcium Level 8.9 Phosphorus Level 4.1 Magnesium Level 2.4 Aspartate Amino Transf 40 (AST/SGOT) Alanine Aminotransferase 55 (ALT/SGPT) Ammonia 33 Phenytoin (Dilantin) Level 1.4 Result Diagram: 11/18/16 0435 11/18/16 0435 Assessment and Plan Assessment and Plan NEURO: Bifrontal strokes Moyamoya Seizures Keppra 1500 mg IV twice a day Continue aspirin 325 mg by mouth daily Continue bromocriptine 2.5 mg by mouth twice a day Continue atorvastatin 40 mg by mouth daily Obtain EEG Neurology consult to assist with anticonvulsant management Has been evaluated tertiary care center and felt to not be a candidate for further intervention. RESP: Respiratory failure COPD She has been on mechanical ventilation for 9-10 days. At this point will need to discuss with family wishes for trach/PEG versus comfort measures as her mental status precludes safe extubation. Check CXR. CV: Coronary artery disease with prior myocardial infarction Hypertension Statin as per above GI: Dysphagia Jevity 1.5 @60 mL per hour. Follow-up nutrition recommendations. GI consult for PEG if that is what family wants. FEN/RENAL: Brown in place. Monitor intake and output. Monitor electrolytes. Replace electrolyte as indicated per ICU electrolyte replacement protocol. ID: Monitor for signs and symptoms of infection. Patient did complete antibiotic course with Unasyn for aspiration pneumonia HEME: Obtain CBC ENDO: Euglycemic PROPH: Heparin 5000 units subcutaneous q8 hours for DVT prophylaxis. Protonix 40 mg IV daily for stress ulcer prophylaxis. ACCESS: Peripheral IV providing adequate access at this time. No invasive lines from outside hospital. Palliative care medicine consult to assist family with determination of goals of care. Discussed with counseling case manager who indicates patient placement will be challenging. Level 3 H and P Martha Sepulveda MD Nov 18, 2016 12:47
[2016-11-18] MEDS ORDERED: MAGNESIUM SULFATE INJ 2 GM in SODIUM CHLORIDE 0.9% INJ 96 ML IV PRN (13:30)
[2016-11-18] MEDS ORDERED: MAGNESIUM OXIDE 400 MG TAB PO PRN (13:30)
[2016-11-18] MEDS ORDERED: POTASSIUM CHLOR 20 MEQ PREMIX 100 ML IV PRN (13:30)
[2016-11-18] MEDS ORDERED: POTASSIUM PHOSPHATE MONOBASIC 500 MG TAB PO PRN (13:30)
[2016-11-18] MEDS ORDERED: POTASSIUM PHOSPHATE MONOBASIC 500 MG TAB PO/TUBE PRN (13:30)
[2016-11-18] MEDS ORDERED: POTASSIUM CHLOR 40 MEQ PREMIX 100 ML IV PRN ×2 (13:30)
[2016-11-18] MEDS ORDERED: SODIUM PHOSPHATE INJ 30 MMOL in SODIUM CHLOR 0.9% 250 ML INJ 240 ML IV PRN (13:30)
[2016-11-18] MEDS ORDERED: POTASSIUM CHLORIDE 25 MEQ EFFERVESCENT TAB PO PRN (13:30)
[2016-11-18] MEDS ORDERED: MAGNESIUM SULFATE INJ 4 GM in SODIUM CHLORIDE 0.9% INJ 92 ML IV PRN (13:30)
[2016-11-18] MEDS ORDERED: POTASSIUM PHOSPHATE INJ 30 MMOL in SODIUM CHLOR 0.9% 250 ML INJ 250 ML IV PRN (13:30)
--- NOTE | 2016-11-18 18:58 | RADRPT ---
EXAM DATE/TIME: 11/18/2016 18:14 [facility] COMPARISON: CTA BRAIN W 3D RECON, November 05, 2016, 19:50. CTA CAROTID ARTERIES W 3D RECON, November 05, 2016, 19:50. MRI BRAIN W/O CONTRAST, November 06, 2016, 19:02. INDICATIONS : CVA. MEDICAL HISTORY : Hypertension. Chronic obstructive pulmonary disease. Myocardial infarction. Coronary artery disease. SURGICAL HISTORY : None. ENCOUNTER: Subsequent ACUITY: 3 weeks PAIN SCORE: Nonresponsive. LOCATION: Head. TECHNIQUE: Multiplanar, multisequence MRI of the brain was performed without contrast. FINDINGS: Evolving left frontal cortical infarction is noted. There is been interval substantial infarction inv olving the right frontal region the rostrum of the corpus callosum is involved. There is mild raysa sive deformity of the ventricular system. There is no definite evidence of macroscopic hemorrhage at present. CONCLUSION: Large evolving bifrontal infarctions Nghia Pacheco MD on November 18, 2016 at 18:52 Board Certified Radiologist. This report was verified electronically.
--- NOTE | 2016-11-18 22:18 | MG ---
cc: SUZANNE CORNEJO MD Lab No: [id number] Date: 11/18/16 Age: 65 Sex: F [birth year]: 12/21/1960 A 65-year-old female with a history of seizure, stroke, mental status changes. 4-5 Hz theta activity, 20-60 microvolts with admixed 1-3 Hz delta activity occurring. Mild phase reversal type pattern T3-T5 region epoch 54 and 53 a couple of sharp transient epoch 77 T3 in addition to phase reversal at T3 epoch 78, T3-T5 sharp wave epoch 88. Limited driving with photic stimulation. Good EEG variability reactivity. Tiny phase reversal epoch 111 T3. Single lead EKG showing sinus rhythm. INTERPRETATION Moderate encephalopathy with suggestion of left temporal region cortical irritability. No active seizures. Clinical correlation. Suzanne Cornejo MD MG/ /9:06 PM /10:13 PM
[2016-11-19] VITALS (19 sets, daily range): BP systolic 90–132; BP diastolic 40–78; PULSE 52–86; RESP 11–17; TEMP 97.6–100.3; O2SAT 93–100
[2016-11-19] MEDS: SODIUM CHLOR 0.9% 1000 ML INJ 1,000 ML IV SCH (03:14)
[2016-11-19] MEDS: RESP: ALBUTEROL 2.5 MG/IPRATROPIUM 0.5 MG NEB (SCH) INH ×4 (03:44→20:08)
[2016-11-19] MEDS: CHLORHEXIDINE GLUCONATE 2 % 1 PACK (2 CLOTHS) TOP SCH (04:00)
[2016-11-19] MEDS: HEPARIN SODIUM - SQ 10,000 UNITS/ML VIAL SQ SCH ×2 (05:18→14:20)
[2016-11-19 05:30] LABS: AUTOMATED NEUTROPHIL # 6.5 TH/MM3 (1.8-7.7); BASOPHIL # 0.1 TH/MM3 (0-0.2); BASOPHIL % 0.7 % (0.0-2.0); EOSINOPHIL # 0.3 TH/MM3 (0-0.4); EOSINOPHIL % 3.1 % (0.0-4.0); HEMATOCRIT 27.4 % (35.0-46.0); HEMO FLAGS DIFF FINAL; LYMPH % 17.5 % (9.0-44.0); LYMPHOCYTE # 1.6 TH/MM3 (1.0-4.8); MEAN CELL VOLUME 85.5 FL (80.0-100.0); MEAN CORPUSCULAR HEMOGLOBIN 27.9 PG (27.0-34.0); MEAN CORPUSCULAR HGB CONC 32.6 % (32.0-36.0); MONO % 6.1 % (0.0-8.0); NEUT % 72.6 % (16.0-70.0); PLATELET COUNT 286 TH/MM3 (150-450); RED CELL DISTRIBUTION WIDTH 13.8 % (11.6-17.2); WHITE BLOOD COUNT 8.9 TH/MM3 (4.0-11.0)
[2016-11-19 05:36] LABS: BICARBONATE 29.1 MEQ/L (21.0-32.0); POTASSIUM 4.2 MEQ/L (3.5-5.1)
--- NOTE | 2016-11-19 08:10 | HHI.PR ---
Objective Vital Signs Date Time Temp Pulse Resp B/P Pulse Ox O2 Delivery O2 Flow Rate FiO2 11/19/16 04:14 98 40 11/19/16 04:00 83 11/19/16 04:00 40 11/19/16 04:00 98.9 83 11 129/78 98 11/19/16 02:00 75 11/19/16 01:14 93 40 11/19/16 00:00 98.1 64 11 90/52 100 11/19/16 00:00 40 11/19/16 00:00 64 11/18/16 22:12 98 40 11/18/16 22:00 64 11/18/16 20:00 98.1 68 11 109/64 100 11/18/16 20:00 40 11/18/16 20:00 68 11/18/16 19:45 99 40 11/18/16 18:15 100 100 11/18/16 18:00 76 11/18/16 16:02 99 40 11/18/16 16:00 40 11/18/16 16:00 99.1 76 11 112/62 99 11/18/16 16:00 76 11/18/16 14:00 73 11/18/16 12:00 98.7 79 11 108/63 99 11/18/16 12:00 79 11/18/16 12:00 40 11/18/16 11:50 99 40 11/18/16 10:00 82 11/18/16 08:10 99 40 I/O 11/18/16 11/18/16 11/18/16 11/19/16 11/19/16 11/19/16 07:00 15:00 23:00 07:00 15:00 23:00 Intake Total 125 ml 940 ml 585 ml 861 ml Output Total 450 ml 300 ml 275 ml 250 ml Balance -325 ml 640 ml 310 ml 611 ml Intake Oral 0 ml 0 ml IV Total 125 ml 940 ml 494 ml 670 ml Tube Feeding 31 ml 131 ml Other 60 ml 60 ml Output Urine Total 450 ml 300 ml 275 ml 250 ml # Bowel Movements 0 0 Result Diagram: 11/19/16 0502 11/19/16 0502 Objective Remarks not following commands pupils = does moves eyes around a little no rxt threat Assessment and Plan Assessment and Plan imp huge r frontal cva and inc size left frontal cva may eventually awaken in next 6 months eeg some left sharps stay on keppra no anticoag now due to size of cva px overall not great Terrence Flores MD Nov 19, 2016 08:10
[2016-11-19] MEDS: levETIRAcetam 1000 MG INJ 100 ML IV SCH ×2 (08:19→19:51)
[2016-11-19] MEDS: levETIRAcetam INJ 500 MG in SODIUM CHLORIDE 0.9% INJ 100 ML IV SCH ×2 (08:22→19:51)
[2016-11-19] MEDS: ATORVASTATIN 40 MG TAB PO SCH (08:22)
[2016-11-19] MEDS: CHLORHEXIDINE 0.12% (ORAL KIT) 15 ML CUP MT SCH ×2 (08:23→19:50)
[2016-11-19] MEDS: PANTOPRAZOLE SODIUM 40 MG VIAL IV SCH (08:23)
[2016-11-19] MEDS: DOCUSATE SODIUM 100 MG CAP OG-TUBE SCH ×2 (08:23→19:50)
[2016-11-19] MEDS: ASPIRIN 81 MG CHEW TAB NG SCH (08:23)
[2016-11-19] MEDS: BROMOCRIPTINE MESYLATE 2.5 MG TAB OG-TUBE SCH ×2 (08:23→19:50)
[2016-11-19] MEDS: SODIUM CHLORIDE 0.9% FLUSH 10 ML FLUSH IV FLUSH SCH ×2 (08:28→19:51)
[2016-11-19] MEDS: FOLIC ACID 1 MG TAB OG-TUBE SCH (09:00)
--- NOTE | 2016-11-19 12:36 | HHI.HCPN ---
Reason for visit a. To assist with evaluation and management of symptoms including: encephalopathy, seizure, dyspnea. b. To assist medical decision maker(s) with: better understanding of current medical conditions; weighing benefits/burdens of medical treatment options; making medical treatment decisions. . (Grecia Ernst) Subjective/Interval History Remains on vent, unsedated, responds to painful stimuli, breathing over vent rate spontaneously, eupneic. Family/friend interactions Contact established with daughter Ruby with plan for family meeting today () after 2 pm. (Grecia Ernst) Family/friend interactions met with patient 2 daughters at bedside approximately 20 minutes.+With Jennifer DICKERSON. Discussion included: * Palliative care role, team members, reason for consult * Patient and/or family understanding of current medical conditions, prognosis , treatment options * Review of expected trajectory and possible treatments going forward including tracheostomy and PEG tube;for now it sounds as if they are leaning towards proceeding with tracheostomy and PEG to give the patient more time for them to monitor for any signs of recovery. They're going to talk more as a family over the weekend. * CODE STATUS[] for now full code family will talk about further no decisions made at this time * Palliative care contact information provided (Yuridia Almeida) Advance Directives Living Will: Never completed Health Care Surrogate: Never completed Durable Power of [employer]: Never completed (Grecia Ernst) Advance Directive Specifics Health Care Surrogate(s): No known written advance directives. Patient currently incapacitated to make her healthcare decisions. According to [place] statutes health care proxy decision-making falls to the majority of adult children. Patient has 3 children. . (Grecia Ernst) Objective Vital Signs Date Time Temp Pulse Resp B/P Pulse Ox O2 Delivery O2 Flow Rate FiO2 11/19/16 10:53 98 35 11/19/16 10:00 80 11/19/16 08:47 99 35 11/19/16 08:00 98.4 80 14 132/75 98 11/19/16 08:00 40 11/19/16 08:00 80 11/19/16 04:14 98 40 11/19/16 04:00 83 11/19/16 04:00 40 11/19/16 04:00 98.9 83 11 129/78 98 11/19/16 02:00 75 11/19/16 01:14 93 40 11/19/16 00:00 98.1 64 11 90/52 100 11/19/16 00:00 40 11/19/16 00:00 64 11/18/16 22:12 98 40 11/18/16 22:00 64 11/18/16 20:00 98.1 68 11 109/64 100 11/18/16 20:00 40 11/18/16 20:00 68 11/18/16 19:45 99 40 11/18/16 18:15 100 100 11/18/16 18:00 76 11/18/16 16:02 99 40 11/18/16 16:00 40 11/18/16 16:00 99.1 76 11 112/62 99 11/18/16 16:00 76 11/18/16 14:00 73 Intake & Output 11/19/16 11/19/16 07:00 19:00 Intake Total 1446 ml Output Total 525 ml Balance 921 ml Intake Oral 0 ml IV Total 1164 ml Tube Feeding 162 ml Other 120 ml Output Urine Total 525 ml # Bowel Movements 0 Physical Exam CONSTITUTIONAL/GENERAL: critically ill patient, on mechanical ventilation. TUBES/LINES/DRAINS:NG right nare, ETT, PIV right AC, PIV left FA, Brown, SCDs, multipodus boots. SKIN: No jaundice, rashes, or lesions. Ecchymoses on upper extremities. No wounds seen anteriorly. Skin temperature appropriate. Not diaphoretic. HEAD: Atraumatic. Normocephalic. EYES: Pupils equal and round and reactive. No scleral icterus. No injection or drainage. NECK: Trachea midline. No JVD. CARDIOVASCULAR: Regular rate and rhythm with 2/6 systolic murmur left sternal border. RESPIRATORY/CHEST: Symmetric, unlabored respirations. Clear to auscultation. Breath sounds equal bilaterally. No wheezes, rales, or rhonchi. GASTROINTESTINAL: Abdomen soft, nondistended. No guarding. Bowel sounds hypoactive. GENITOURINARY: Without palpable bladder distension. Brown catheter in place. MUSCULOSKELETAL: Extremities without clubbing, cyanosis. + edema. No mottling or clubbing. NEUROLOGICAL: Does not open eyes to voice, exam. Extensor posturing right upper extremity to noxious stimuli. No withdraw to noxious stimuli left upper or bilateral lower extremities. PSYCHIATRIC: off sedation. Limited clinical assessment, non-responsive, no signs of anxiety or delirium (Grecia Ernst) Diagnostic Tests Laboratory Laboratory Tests Test 11/17/16 11/18/16 11/18/16 11/18/16 23:30 02:28 04:09 04:35 Nasal Screen MRSA (PCR) NEGATIVE (NEGATIVE) Blood Gas Puncture Site RT RADIAL RT RADIAL Blood Gas Patient Temperature 98.6 98.6 Blood Gas HCO3 28 mmol/L 29 mmol/L (22-26) (22-26) Blood Gas Base Excess 4.7 mmol/L 4.7 mmol/L (-2-2) (-2-2) Blood Gas Oxygen Saturation 97 % (90-100) 97 % (90-100) Arterial Blood pH 7.51 7.47 (7.380-7.420) (7.380-7.420) Arterial Blood Partial 35 mmHg (38-42) 40 mmHg (38-42) Pressure CO2 Arterial Blood Partial 180 mmHg 146 mmHg Pressure O2 (61-120) (61-120) Arterial Blood Oxygen Content 12.3 Vol % 12.5 Vol % (12.0-20.0) (12.0-20.0) Arterial Blood 1.5 % (0-4) 1.6 % (0-4) Carboxyhemoglobin Arterial Blood Methemoglobin 0.8 % (0-2) 0.8 % (0-2) Blood Gas Hemoglobin 8.7 G/DL 9.0 G/DL (12.0-16.0) (12.0-16.0) Oxygen Delivery Device VENTILATOR VENTILATOR Blood Gas Ventilator Setting AC AC 12/500/PEEP5 10/450/PEEP5 Blood Gas Inspired Oxygen 40 % 40 % White Blood Count 11.0 TH/MM3 (4.0-11.0) Red Blood Count 3.23 MIL/MM3 (4.00-5.30) Hemoglobin 9.0 GM/DL (11.6-15.3) Hematocrit 27.6 % (35.0-46.0) Mean Corpuscular Volume 85.4 FL (80.0-100.0) Mean Corpuscular Hemoglobin 27.8 PG (27.0-34.0) Mean Corpuscular Hemoglobin 32.6 % Concent (32.0-36.0) Red Cell Distribution Width 14.2 % (11.6-17.2) Platelet Count 296 TH/MM3 (150-450) Mean Platelet Volume 8.7 FL (7.0-11.0) Neutrophils (%) (Auto) 76.7 % (16.0-70.0) Lymphocytes (%) (Auto) 13.7 % (9.0-44.0) Monocytes (%) (Auto) 5.8 % (0.0-8.0) Eosinophils (%) (Auto) 2.9 % (0.0-4.0) Basophils (%) (Auto) 0.9 % (0.0-2.0) Neutrophils # (Auto) 8.4 TH/MM3 (1.8-7.7) Lymphocytes # (Auto) 1.5 TH/MM3 (1.0-4.8) Monocytes # (Auto) 0.6 TH/MM3 (0-0.9) Eosinophils # (Auto) 0.3 TH/MM3 (0-0.4) Basophils # (Auto) 0.1 TH/MM3 (0-0.2) CBC Comment DIFF FINAL Differential Comment Sodium Level 139 MEQ/L (136-145) Potassium Level 4.5 MEQ/L (3.5-5.1) Chloride Level 102 MEQ/L (98-107) Carbon Dioxide Level 28.7 MEQ/L (21.0-32.0) Anion Gap 8 MEQ/L (5-15) Blood Urea Nitrogen 26 MG/DL (7-18) Creatinine 0.64 MG/DL (0.50-1.00) Estimat Glomerular Filtration 94 ML/MIN (>89) Rate Random Glucose 103 MG/DL (74-106) Calcium Level 8.9 MG/DL (8.5-10.1) Phosphorus Level 4.1 MG/DL (2.5-4.9) Magnesium Level 2.4 MG/DL (1.5-2.5) Aspartate Amino Transf 40 U/L (15-37) (AST/SGOT) Alanine Aminotransferase 55 U/L (10-53) (ALT/SGPT) Ammonia 33 MCMOL/L (11-32) Phenytoin (Dilantin) Level 1.4 MCG/ML (10.0-20.0) Test 11/19/16 05:02 White Blood Count 8.9 TH/MM3 (4.0-11.0) Red Blood Count 3.20 MIL/MM3 (4.00-5.30) Hemoglobin 8.9 GM/DL (11.6-15.3) Hematocrit 27.4 % (35.0-46.0) Mean Corpuscular Volume 85.5 FL (80.0-100.0) Mean Corpuscular Hemoglobin 27.9 PG (27.0-34.0) Mean Corpuscular Hemoglobin 32.6 % Concent (32.0-36.0) Red Cell Distribution Width 13.8 % (11.6-17.2) Platelet Count 286 TH/MM3 (150-450) Mean Platelet Volume 9.5 FL (7.0-11.0) Neutrophils (%) (Auto) 72.6 % (16.0-70.0) Lymphocytes (%) (Auto) 17.5 % (9.0-44.0) Monocytes (%) (Auto) 6.1 % (0.0-8.0) Eosinophils (%) (Auto) 3.1 % (0.0-4.0) Basophils (%) (Auto) 0.7 % (0.0-2.0) Neutrophils # (Auto) 6.5 TH/MM3 (1.8-7.7) Lymphocytes # (Auto) 1.6 TH/MM3 (1.0-4.8) Monocytes # (Auto) 0.5 TH/MM3 (0-0.9) Eosinophils # (Auto) 0.3 TH/MM3 (0-0.4) Basophils # (Auto) 0.1 TH/MM3 (0-0.2) CBC Comment DIFF FINAL Differential Comment Sodium Level 139 MEQ/L (136-145) Potassium Level 4.2 MEQ/L (3.5-5.1) Chloride Level 104 MEQ/L (98-107) Carbon Dioxide Level 29.1 MEQ/L (21.0-32.0) Anion Gap 6 MEQ/L (5-15) Blood Urea Nitrogen 28 MG/DL (7-18) Creatinine 0.68 MG/DL (0.50-1.00) Estimat Glomerular Filtration 87 ML/MIN (>89) Rate Random Glucose 110 MG/DL (74-106) Calcium Level 8.5 MG/DL (8.5-10.1) (Grecia Ernst) Result Diagram: 11/19/16 0502 11/19/16 0502 Imaging Last Impressions Brain MRI 11/18/16 0825 Signed Impressions: Service Date/Time: November 18:14 - CONCLUSION: Large evolving bifrontal infarctions Nghia Pacheco MD Chest X-Ray 11/18/16 0000 Signed Impressions: Service Date/Time: November 04:06 - CONCLUSION: 1. Interval development of interstitial densities likely interstitial edema. 2. Left lower lobe density likely atelectasis. Jason Dominguez MD (Grecia Ernst) Assessment and Plan Disease Oriented Problem List: (1) (2) (3) Comment: On Keppra . (4) Symptom Scale: (1) 0-10 Scale: 0 (2) 0-10 Scale: Unable to quantify (3) 0-10 Scale: Unable to quantify Comment: On mechanical ventilation Pertinent Non-Medical Issues Psychosocial: Single. Has 2 daughters and one son. Spiritual: unknown. Legal: Ethical issues impacting care: No known concerns at this time. . Important Contacts * Ruby Rob, daughter: [phone] * Stephanie Rivas, daughter: [phone] * Dwight Rivas, son: [phone] . Prognosis MRI/EEG reviewed by neurology, prognosis felt to be poor, infarct noted to be huge. Patient may wake some in 6 months. Given extent of infarct, I would not expect patient to regain significant functional or cognitive status. Code Status: Full Code Plan * Patient is incapacitated to make healthcare decisions. No known written advanced directives. According to [place] Statutes, health care proxy decision making falls to majority of adult children. Patient has 2 daughters (Ruby, Stephanie) and 1 son (Dwight). TELEPHONE CONTACT MADE WITH RUBY AND PLAN FOR FAMILY MEETING TODAY WITH RUBY AND STEPHANIE AFTER 2PM WAS MADE, DWIGHT UNABLE TO ATTEND TODAY. * FULL CODE * Palliative care introduced palliative care service via telephone to nadeem Joyce, offered family meeting. Ruby will attempt to coordinate family meeting and notified palliative care. At this time she indicates children desire continued aggressive care. DaughterRuby indicates she does not think patient would want to be prolonged on life support, however indicates she and her siblings are thinking they may need "more time" to give her a chance to make sure she is just not slow to wake up. This will be reviewed at today's meeting. * MRI/EEG completed, poor prognosis per Dr. Riley's note. * Palliative care will continue to follow in a supportive role at this time. * SYMPTOMS: Seizure: currently controlled on Keppra. Weakness: due to prolonged hospital course, bilateral infarcts. Dyspnea: remains on mech vent. Off sedation. Vent rate 10, respirations 15. No signs of tachypnea now, will continue to monitor. Encephalopathy: minimally responsive at this time off sedation. Will monitor. Constipation: no BM since 11/15. Will initiate stool softener and dulcolax suppository. * Palliative care number provided. * Palliative care will continue to follow to assist with symptom management and clarification of treatment goals as needed. . (Grecia Ernst) Plan * 1600 Goalsmet with family at length at bedside. They appear to have a good overall understanding of conditions and possible trajectory. For now it sounds as if they are leaning towards proceeding with tracheostomy and PEG to give the patient more time for them to monitor for any signs of recovery. They're going to talk more as a family over the weekend, they will additionally review CODE STATUS so for now patient to remain full code. (Yuridia Almeida) Collaborating Comments Dual visit seen with Alicia DICKERSON Pt essentially nonresponsive to stimuli-- does posture slightly to pain. Appears comfortable. Initially seen no family present, they will arrive later, plan to meet after 2pm today. Later met w family @ beside (2/3 children) . (see subjective detail) PE: CONSTITUTIONAL/GENERAL: critically ill patient, on mechanical ventilation, appears comfortable CARDIOVASCULAR: Regular rate and rhythm RESPIRATORY/CHEST: Symmetric, unlabored respirations via ETT to mech vent. Clear to auscultation. GASTROINTESTINAL: Abdomen soft, nondistended. Bowel sounds hypoactive. (Yuridia Almeida) Collaborating Comments . Chart reviewed. Cased discussed with palliative care COMPUTER TECH. Above COMPUTER TECH note reviewed and I concur. . (Stephen Lombardo MD) Grecia Ernst Nov 19, 2016 12:36 Yuridia Almeida Nov 19, 2016 16:42 Stephen Lombardo MD January 03, 2017 15:36
[2016-11-19] MEDS ORDERED: BISACODYL 10 MG SUPP RECTAL PRN (12:45)
--- NOTE | 2016-11-19 14:55 | HHI.CCPN ---
Subjective Remarks/Hospital Course 65-year-old female with past medical history of stroke for which she at one point was on warfarin but had been discontinued. She was was admitted to [facility] emergency department 11/04/16 with difficulty getting her thoughts together. She was found to have multifocal nonhemorrhagic infarcts in left frontal and parietal regions, right frontal lobe and history of moyamoya disease. She was initially awake and following commands with weakness of RLE and some aphasia. She was transferred to [facility] where he had an cerebral angiogram consistent with moyamoya. There were plans to perform extracranial/intracranial bypass. However she had a seizure and ended up being intubated for status either 11/09 or 11/10.. She was found to have a new right frontal infarct area and she was started on Dilantin and Keppra and it was felt that she would not be a candidate for intervention. She has been intubated 9-10 days and apparently she has been tolerating C Pap trials to some extent but mental status prevents extubation. Treating team was discussing with family trach/PEG. Apparently family requested transfer back to [place] because they live locally here and wanted her closer to home. Apparently she had been sedated initially with propofol but then was on Precedex from 11/12-11/14. Appears she has been off all continuous sedation since 11/14. Subjective 11/19 No acute events overnight. Palliative care has been consult at family meeting is scheduled for today. After family meeting will will discuss placement of tracheostomy and/or and PEG, based on family's wishes. Objective Vital Signs Date Time Temp Pulse Resp B/P Pulse Ox O2 Delivery O2 Flow Rate FiO2 11/19/16 14:00 86 11/19/16 12:55 97 35 11/19/16 12:00 97.6 16 116/40 Intake and Output 11/18/16 11/18/16 11/19/16 08:00 16:00 00:00 Intake Total 125 ml 940 ml 585 ml Output Total 450 ml 300 ml 275 ml Balance -325 ml 640 ml 310 ml Result Diagram: 11/19/16 0502 11/19/16 0502 Objective Remarks GENERAL: Critically ill-appearing female SKIN: Warm and dry. HEAD: Atraumatic. Normocephalic. EYES: Pupils equal and round, 3 mm and reactive. No scleral icterus. No injection or drainage. ENT: No nasal bleeding or discharge. Mucous membranes pink and moist. NECK: Trachea midline. No JVD. CARDIOVASCULAR: Regular rate and rhythm. 2/6 systolic murmur left sternal border. RESPIRATORY: On mechanical ventilation, not over breathing the vent on current settings. Clear to auscultation. Breath sounds equal bilaterally. GASTROINTESTINAL: Abdomen soft, non-tender, nondistended. Bowel sounds present MUSCULOSKELETAL: Extremities without clubbing, cyanosis. NEUROLOGICAL: Eyes open intermittently and open to only deep noxious stimuli. She does not track or respond to visual threat. Babinski's are upgoing bilaterally. There is extensor posturing of left upper extremity to noxious stimuli. Appears to withdraw and then extend with right upper extremity to noxious stimuli. Urinary Catheter: Yes Date of Insertion: Nov 19, 2016 A/P Assessment and Plan NEURO: Bifrontal strokes Moyamoya Seizures Keppra 1500 mg IV twice a day Continue aspirin 325 mg by mouth daily Continue bromocriptine 2.5 mg by mouth twice a day Continue atorvastatin 40 mg by mouth daily EEG-noted sharp spikes Neurology consult to assist with anticonvulsant management Has been evaluated tertiary care center and felt to not be a candidate for further intervention. RESP: Respiratory failure COPD She has been on mechanical ventilation for 9-10 days. Post meeting with palliative, plan for possible tracheostomy/PEG 11/18 CXR no active disease CV: Coronary artery disease with prior myocardial infarction Hypertension Statin as per above GI: Dysphagia Jevity 1.5 @60 mL per hour. Follow-up nutrition recommendations. GI consult for PEG dependent on family meeting. Bowel regimen FEN/RENAL: Brown in place. Monitor intake and output. Monitor electrolytes. Replace electrolyte as indicated per ICU electrolyte replacement protocol. ID: Monitor for signs and symptoms of infection. Patient did complete antibiotic course with Unasyn for aspiration pneumonia HEME: Obtain CBC ENDO: Euglycemic PROPH: Hold DVT prophylaxis per neurology secondary to bilateral CVAs. Protonix 40 mg IV daily for stress ulcer prophylaxis. ACCESS: Peripheral IV providing adequate access at this time. No invasive lines from outside hospital. Palliative care medicine consult to assist family with determination of goals of care. Discussed with adult protective caseworker who indicates patient placement will be challenging. Level 3 Physician Nieves Childs MD Nov 19, 2016 14:55
[2016-11-19] MEDS: SENNOSIDES SYRUP 8.8 MG/5 ML CUP PO SCH (19:50)
[2016-11-19] MEDS: DOCUSATE SODIUM 100 MG/10 ML UDC PO SCH (19:50)
[2016-11-20] VITALS (17 sets, daily range): BP systolic 122–143; BP diastolic 59–81; PULSE 81–91; RESP 16–22; TEMP 98.7–99.7; O2SAT 97–99
[2016-11-20] MEDS: CHLORHEXIDINE GLUCONATE 2 % 1 PACK (2 CLOTHS) TOP SCH ×2 (01:19→21:10)
[2016-11-20] MEDS: RESP: ALBUTEROL 2.5 MG/IPRATROPIUM 0.5 MG NEB (SCH) INH ×4 (03:43→20:00)
[2016-11-20 05:13] LABS: HEMATOCRIT 27.9 % (35.0-46.0); MEAN CELL VOLUME 86.6 FL (80.0-100.0); MEAN CORPUSCULAR HEMOGLOBIN 28.6 PG (27.0-34.0); PLATELET COUNT 298 TH/MM3 (150-450); RED BLOOD COUNT 3.22 MIL/MM3 (4.00-5.30); RED CELL DISTRIBUTION WIDTH 14.1 % (11.6-17.2); REVIEW FLAG FINAL; WHITE BLOOD COUNT 9.6 TH/MM3 (4.0-11.0)
[2016-11-20 05:32] LABS: BICARBONATE 25.5 MEQ/L (21.0-32.0); MAGNESIUM 2.3 MG/DL (1.5-2.5); POTASSIUM 3.9 MEQ/L (3.5-5.1)
[2016-11-20] MEDS: CHLORHEXIDINE 0.12% (ORAL KIT) 15 ML CUP MT SCH ×2 (08:19→20:00)
[2016-11-20] MEDS: PANTOPRAZOLE SODIUM 40 MG VIAL IV SCH (08:20)
[2016-11-20] MEDS: SODIUM CHLORIDE 0.9% FLUSH 10 ML FLUSH IV FLUSH SCH ×2 (08:20→21:10)
[2016-11-20] MEDS: levETIRAcetam 1000 MG INJ 100 ML IV SCH ×2 (08:20→21:10)
[2016-11-20] MEDS: DOCUSATE SODIUM 100 MG/10 ML UDC PO SCH ×2 (08:22→21:10)
[2016-11-20] MEDS: SENNOSIDES SYRUP 8.8 MG/5 ML CUP PO SCH ×2 (08:22→21:09)
[2016-11-20] MEDS: FOLIC ACID 1 MG TAB OG-TUBE SCH (08:23)
[2016-11-20] MEDS: ASPIRIN 81 MG CHEW TAB NG SCH (08:23)
[2016-11-20] MEDS: ATORVASTATIN 40 MG TAB PO SCH (08:23)
[2016-11-20] MEDS: BROMOCRIPTINE MESYLATE 2.5 MG TAB OG-TUBE SCH ×2 (08:23→21:09)
[2016-11-20] MEDS: levETIRAcetam INJ 500 MG in SODIUM CHLORIDE 0.9% INJ 100 ML IV SCH ×2 (09:00→21:09)
[2016-11-20] MEDS: ACETAMINOPHEN/HYDROcodone 325 MG/5 MG TAB PO PRN ×2 (16:54→21:15)
--- NOTE | 2016-11-20 17:45 | HHI.CCPN ---
Subjective Remarks/Hospital Course 65-year-old female with past medical history of stroke for which she at one point was on warfarin but had been discontinued. She was was admitted to [facility] emergency department 11/04/16 with difficulty getting her thoughts together. She was found to have multifocal nonhemorrhagic infarcts in left frontal and parietal regions, right frontal lobe and history of moyamoya disease. She was initially awake and following commands with weakness of RLE and some aphasia. She was transferred to [facility] where he had an cerebral angiogram consistent with moyamoya. There were plans to perform extracranial/intracranial bypass. However she had a seizure and ended up being intubated for status either 11/09 or 11/10.. She was found to have a new right frontal infarct area and she was started on Dilantin and Keppra and it was felt that she would not be a candidate for intervention. She has been intubated 9-10 days and apparently she has been tolerating C Pap trials to some extent but mental status prevents extubation. Treating team was discussing with family trach/PEG. Apparently family requested transfer back to [place] because they live locally here and wanted her closer to home. Apparently she had been sedated initially with propofol but then was on Precedex from 11/12-11/14. Appears she has been off all continuous sedation since 11/14. Subjective 11/19 No acute events overnight. Palliative care has been consult at family meeting is scheduled for today. After family meeting will will discuss placement of tracheostomy and/or and PEG, based on family's wishes. 11/20: Afebrile .Change in neurological status. Consult placed for tracheostomy and PEG placement as requested by family yesterday. Objective Vital Signs Date Time Temp Pulse Resp B/P Pulse Ox O2 Delivery O2 Flow Rate FiO2 11/20/16 16:00 99.4 90 17 129/68 98 11/20/16 16:00 35 Intake and Output 11/19/16 11/19/16 11/20/16 08:00 16:00 00:00 Intake Total 861 ml 723 ml 990 ml Output Total 250 ml 275 ml 250 ml Balance 611 ml 448 ml 740 ml Result Diagram: 11/20/16 0410 11/20/16 0426 Objective Remarks GENERAL: Critically ill-appearing female SKIN: Warm and dry. HEAD: Atraumatic. Normocephalic. EYES: Pupils equal and round, 3 mm and reactive. No scleral icterus. No injection or drainage. ENT: No nasal bleeding or discharge. Mucous membranes pink and moist. NECK: Trachea midline. No JVD. CARDIOVASCULAR: Regular rate and rhythm. 2/6 systolic murmur left sternal border. RESPIRATORY: On mechanical ventilation, not over breathing the vent on current settings. Clear to auscultation. Breath sounds equal bilaterally. GASTROINTESTINAL: Abdomen soft, non-tender, nondistended. Bowel sounds present MUSCULOSKELETAL: Extremities without clubbing, cyanosis. NEUROLOGICAL: Eyes open intermittently and open to only deep noxious stimuli. She does not track or respond to visual threat. Babinski's are upgoing bilaterally. There is extensor posturing of left upper extremity to noxious stimuli. Appears to withdraw and then extend with right upper extremity to noxious stimuli. Date of Insertion: Nov 19, 2016 A/P Assessment and Plan NEURO: Bifrontal strokes Moyamoya Seizures Keppra 1500 mg IV twice a day Continue aspirin 325 mg by mouth daily Continue bromocriptine 2.5 mg by mouth twice a day Continue atorvastatin 40 mg by mouth daily EEG-noted sharp spikes Neurology consult to assist with anticonvulsant management Has been evaluated tertiary care center and felt to not be a candidate for further intervention. RESP: Respiratory failure COPD She has been on mechanical ventilation for 9-10 days. Post meeting with palliative, plan for possible tracheostomy/PEG 11/18 CXR no active disease Tracheostomy planned general surgery consulted CV: Coronary artery disease with prior myocardial infarction Hypertension Statin as per above GI: Dysphagia Jevity 1.5 @60 mL per hour. Follow-up nutrition recommendations. GI consulted for PEG placement Bowel regimen-MiraLAX added to regimen FEN/RENAL: Brown in place. Monitor intake and output. Monitor electrolytes. Replace electrolyte as indicated per ICU electrolyte replacement protocol. ID: Monitor for signs and symptoms of infection. Patient did complete antibiotic course with Unasyn for aspiration pneumonia HEME: Obtain CBC ENDO: Euglycemic PROPH: Hold DVT prophylaxis per neurology secondary to bilateral CVAs. Protonix 40 mg IV daily for stress ulcer prophylaxis. ACCESS: Peripheral IV providing adequate access at this time. No invasive lines from outside hospital. Palliative care medicine consult to assist family with determination of goals of care. Level 3 Physician Nieves Childs MD Nov 20, 2016 17:45
--- NOTE | 2016-11-20 21:38 | MB ---
cc: JUAN CREWS MD DATE OF CONSULTATION 11/20/2016 REASON FOR CONSULTATION Tracheostomy placement. HISTORY OF PRESENT ILLNESS The patient is a 65-year-old female with a history of stroke in the fall of last year. The patient had come off of Coumadin and was found to have bilateral frontal infarct with history of Moyamoya disease. MEDICATIONS Currently include 1. MiraLax daily 2. Senna daily, 3. Colace liquid daily 4. Potassium supplements, 5. Magnesium supplements. 6. Protonix 40 mg IV daily 7. Aspirin 324 mg per NG daily 8. Levetiracetam q.12 h by IV 9. Atorvastatin 40 mg p.o. daily, 10. Parlodel 2.5 mg q.12 h, 11. Folic acid 1 mg daily, 12. DuoNebs q.6 h, 13. [place] 5/325 as needed 14. Morphine 2 mg IV as needed. PHYSICAL EXAMINATION GENERAL: A female who opens her eyes but does not follow commands. VITAL SIGNS: BP 129/68, respirations 17, 98% sat on 35% FIO2. Temperature 99.4. HEENT: Sclerae anicteric. CHEST: Clear to auscultation. CARDIAC: Regular rate and rhythm. ABDOMEN: Soft. NECK: Supple and minimally swollen. The trachea can be easily palpated. NEUROLOGIC: As noted above, The patient does not follow commands. LABORATORY DATA Hemoglobin 9.2, platelets 298,000. Chemistries - BUN and creatinine are 24 and 0.58, glucose is 138. Coags are not in the chart. IMAGING STUDIES Chest x-ray from 11/18 shows interstitial edema and left lower lobe density likely atelectasis. ASSESSMENT Bilateral frontal lobe infarcts. Family wishes everything to be done. I have spoken with Dr. Blankenship and we will attempt to do a tracheostomy early next week depending on availability of the videoscope. If the family changes their mind, please let me know as this procedure is not urgent. MD OSEAS Barnes/ /8:53 PM /9:23 PM
[2016-11-21] VITALS (19 sets, daily range): BP systolic 104–160; BP diastolic 61–95; PULSE 70–92; RESP 13–17; TEMP 98.2–99.8; O2SAT 97–99
[2016-11-21] MEDS: RESP: ALBUTEROL 2.5 MG/IPRATROPIUM 0.5 MG NEB (SCH) INH ×4 (03:38→19:27)
[2016-11-21] MEDS: MORPHINE SULFATE 4 MG/ML INJ IV PRN ×2 (04:22→10:20)
[2016-11-21 06:55] LABS: BICARBONATE 26.7 MEQ/L (21.0-32.0); MAGNESIUM 2.2 MG/DL (1.5-2.5); POTASSIUM 3.9 MEQ/L (3.5-5.1)
[2016-11-21] MEDS ORDERED: BISACODYL 10 MG SUPP RECTAL ONE (08:00)
[2016-11-21] MEDS: CHLORHEXIDINE 0.12% (ORAL KIT) 15 ML CUP MT SCH ×2 (08:12→20:53)
[2016-11-21] MEDS: levETIRAcetam 1000 MG INJ 100 ML IV SCH ×2 (08:13→20:53)
[2016-11-21] MEDS: DOCUSATE SODIUM 100 MG/10 ML UDC PO SCH ×2 (08:14→20:53)
[2016-11-21] MEDS: levETIRAcetam INJ 500 MG in SODIUM CHLORIDE 0.9% INJ 100 ML IV SCH ×2 (08:14→20:53)
[2016-11-21] MEDS: PANTOPRAZOLE SODIUM 40 MG VIAL IV SCH (08:14)
[2016-11-21] MEDS: SENNOSIDES SYRUP 8.8 MG/5 ML CUP PO SCH ×2 (08:14→20:53)
[2016-11-21] MEDS: ASPIRIN 81 MG CHEW TAB NG SCH (08:15)
[2016-11-21] MEDS: SODIUM CHLORIDE 0.9% FLUSH 10 ML FLUSH IV FLUSH SCH ×2 (08:15→20:54)
[2016-11-21] MEDS: BROMOCRIPTINE MESYLATE 2.5 MG TAB OG-TUBE SCH ×2 (08:15→20:53)
[2016-11-21] MEDS: ATORVASTATIN 40 MG TAB PO SCH (08:15)
[2016-11-21] MEDS: FOLIC ACID 1 MG TAB OG-TUBE SCH (08:15)
--- NOTE | 2016-11-21 14:26 | HHI.CCPN ---
Subjective Remarks/Hospital Course 65-year-old female with past medical history of stroke for which she at one point was on warfarin but had been discontinued. She was was admitted to [facility] emergency department 11/04/16 with difficulty getting her thoughts together. She was found to have multifocal nonhemorrhagic infarcts in left frontal and parietal regions, right frontal lobe and history of moyamoya disease. She was initially awake and following commands with weakness of RLE and some aphasia. She was transferred to [facility] where he had an cerebral angiogram consistent with moyamoya. There were plans to perform extracranial/intracranial bypass. However she had a seizure and ended up being intubated for status either 11/09 or 11/10.. She was found to have a new right frontal infarct area and she was started on Dilantin and Keppra and it was felt that she would not be a candidate for intervention. She has been intubated 9-10 days and apparently she has been tolerating C Pap trials to some extent but mental status prevents extubation. Treating team was discussing with family trach/PEG. Apparently family requested transfer back to [place] because they live locally here and wanted her closer to home. Apparently she had been sedated initially with propofol but then was on Precedex from 11/12-11/14. Appears she has been off all continuous sedation since 11/14. Subjective 11/19 No acute events overnight. Palliative care has been consult at family meeting is scheduled for today. After family meeting will will discuss placement of tracheostomy and/or and PEG, based on family's wishes. 11/20: Afebrile .No change in neurological status. Consult placed for tracheostomy and PEG placement as requested by family yesterday. 11/21: Afebrile. Tracheostomy plan for some time next week with general surgery , will try to coordinate with GI for PEG placement. Objective Vital Signs Date Time Temp Pulse Resp B/P Pulse Ox O2 Delivery O2 Flow Rate FiO2 11/21/16 12:11 97 35 11/21/16 12:00 98.2 78 13 104/61 Intake and Output 11/20/16 11/20/16 11/21/16 08:00 16:00 00:00 Intake Total 1199 ml 1055 ml 1040 ml Output Total 200 ml 325 ml 400 ml Balance 999 ml 730 ml 640 ml Result Diagram: 11/20/16 0410 11/21/16 0612 Objective Remarks GENERAL: Critically ill-appearing female SKIN: Warm and dry. HEAD: Atraumatic. Normocephalic. EYES: Pupils equal and round, 3 mm and reactive. No scleral icterus. No injection or drainage. ENT: No nasal bleeding or discharge. Mucous membranes pink and moist. NECK: Trachea midline. No JVD. CARDIOVASCULAR: Regular rate and rhythm. 2/6 systolic murmur left sternal border. RESPIRATORY: On mechanical ventilation, not over breathing the vent on current settings. Clear to auscultation. Breath sounds equal bilaterally. GASTROINTESTINAL: Abdomen soft, non-tender, nondistended. Bowel sounds present MUSCULOSKELETAL: Extremities without clubbing, cyanosis. NEUROLOGICAL: Eyes open intermittently and open to only deep noxious stimuli. She does not track or respond to visual threat. Babinski's are upgoing bilaterally. There is extensor posturing of left upper extremity to noxious stimuli. Appears to withdraw and then extend with right upper extremity to noxious stimuli. Urinary Catheter: Yes Date of Insertion: Nov 19, 2016 Vascular Central Line Catheter: No A/P Assessment and Plan NEURO: Bifrontal strokes Moyamoya Seizures Keppra 1500 mg IV twice a day Continue aspirin 325 mg by mouth daily Continue bromocriptine 2.5 mg by mouth twice a day Continue atorvastatin 40 mg by mouth daily EEG-noted sharp spikes Neurology consult to assist with anticonvulsant management Has been evaluated tertiary care center and felt to not be a candidate for further intervention. RESP: Respiratory failure COPD She has been on mechanical ventilation for 9-10 days. Post meeting with palliative, plan for possible tracheostomy/PEG 11/18 CXR no active disease Tracheostomy planned for next week with general surgery consulted CV: Coronary artery disease with prior myocardial infarction Hypertension Statin as per above GI: Dysphagia Constipation Jevity 1.5 @60 mL per hour. Follow-up nutrition recommendations. GI consulted for PEG placement Bowel regimen-MiraLAX added to regimen FEN/RENAL: Brown in place. Monitor intake and output. Monitor electrolytes. Replace electrolyte as indicated per ICU electrolyte replacement protocol. ID: Monitor for signs and symptoms of infection. Patient did complete antibiotic course with Unasyn for aspiration pneumonia HEME: Obtain CBC ENDO: Euglycemic PROPH: Hold DVT prophylaxis per neurology secondary to bilateral CVAs. Protonix 40 mg IV daily for stress ulcer prophylaxis. ACCESS: Peripheral IV providing adequate access at this time. Palliative care medicine consult to assist family with determination of goals of care. Level 3 Physician Nieves Childs MD Nov 21, 2016 14:26
[2016-11-21] MEDS: POLYETHYLENE GLYCOL 17 GM PKG PO SCH (17:53)
--- NOTE | 2016-11-21 18:58 | MB ---
cc: KIARA KENNEY M.D. DATE OF CONSULTATION: 11/21/2016. REASON FOR CONSULTATION: Dysphagia evaluation for possible PEG-tube. DATE OF : 1950. REFERRING PHYSICIAN: Dr. Nichols. HISTORY OF PRESENT ILLNESS: Thank you for the consultation. This is an unfortunate 65-year-old white female who apparently had a stroke and multifocal nonhemorrhagic infarction in the left frontal and parietal regions. The patient was taking Coumadin. The patient is currently intubated, not responsive and it seems will need long-term ventilation so Dr. Aleman was asked to place take a trache and I was asked to evaluate for possible PEG-tube. The patient has been intubated for a few days and it is anticipated that she will be intubated for a while. PAST MEDICAL HISTORY: Her past medical history is significant for: 1. COPD. 2. Coronary artery disease. 3. Hypertension. ALLERGIES: NO KNOWN DRUG ALLERGIES. MEDICATIONS: Medications reviewed in the chart. PAST SURGICAL HISTORY: None. FAMILY HISTORY: Noncontributory. SOCIAL HISTORY: No tobacco or drugs. She used to drink some alcohol. PHYSICAL EXAMINATION: GENERAL: The patient is sedated, intubated. VITAL SIGNS: Vital signs are stable. No fever. HEAD, EYES, EARS, NOSE, THROAT: Pupils are round and reactive to light. No scleral icterus. NECK: The neck is supple. No jugular venous distention. CARDIAC: Regular rate and rhythm. 2/6 systolic ejection murmur. CHEST: The patient is ventilated, clear. ABDOMEN: Abdomen soft and nondistended. Positive bowel sounds. No hepatosplenomegaly. EXTREMITIES: No clubbing or cyanosis. Some edema. NEUROLOGIC: Neurologically the patient is sedated and intubated. PSYCHIATRIC: Psychologically cannot assess. LABORATORY DATA: White count 9.6, hemoglobin 9.2, platelet 298,000. INR 1.0. BUN 21, creatinine 0.49, AST on the 13th was 40 and 55. IMAGING STUDIES: Brain MRI showed large evolving infarction. ASSESSMENT AND PLAN: 65-year-old lady who has history of stroke. The patient seems to be dependent on intubation and mechanical ventilation and seems like she will be that for a long time. I think PEG-tube is reasonable because of family wants everything done medically and she might be intubated for an extended period of time. We will obtain a consent. Will plan on putting a PEG-tube and will give antibiotics per protocol. Her INR is stable and will proceed accordingly. MD KHURRAM Alvarez/BERYL /3:41 PM /6:52 PM
[2016-11-21] MEDS: CHLORHEXIDINE GLUCONATE 2 % 1 PACK (2 CLOTHS) TOP SCH (20:54)
[2016-11-22] VITALS (20 sets, daily range): BP systolic 108–131; BP diastolic 61–80; PULSE 72–94; RESP 10–17; TEMP 98–99.1; O2SAT 96–98
[2016-11-22] MEDS: RESP: ALBUTEROL 2.5 MG/IPRATROPIUM 0.5 MG NEB (SCH) INH (03:35)
[2016-11-22] MEDS ORDERED: ceFAZolin 2 GM PREMIX 50 ML IV ONE (05:00)
[2016-11-22] MEDS: MORPHINE SULFATE 4 MG/ML INJ IV PRN ×3 (05:53→21:23)
[2016-11-22] MEDS ORDERED: GLUCAGON 1 MG/ML VIAL OTHER PRN (08:00)
[2016-11-22] MEDS ORDERED: DEXTROSE 50% IN WATER 50 ML VIAL(D50) IV PUSH PRN (08:00)
[2016-11-22] MEDS: INSULIN NovoLIN REGULAR SUPPLEMENTAL SCALE SQ SCH ×3 (08:00→20:00)
[2016-11-22] MEDS: CHLORHEXIDINE 0.12% (ORAL KIT) 15 ML CUP MT SCH ×2 (08:02→21:17)
--- NOTE | 2016-11-22 08:06 | HHI.CCPN ---
Subjective Remarks/Hospital Course 65-year-old female with past medical history of stroke for which she at one point was on warfarin but had been discontinued. She was was admitted to [facility] emergency department 11/04/16 with difficulty getting her thoughts together. She was found to have multifocal nonhemorrhagic infarcts in left frontal and parietal regions, right frontal lobe and history of moyamoya disease. She was initially awake and following commands with weakness of RLE and some aphasia. She was transferred to [facility] where he had an cerebral angiogram consistent with moyamoya. There were plans to perform extracranial/intracranial bypass. However she had a seizure and ended up being intubated for status either 11/09 or 11/10.. She was found to have a new right frontal infarct area and she was started on Dilantin and Keppra and it was felt that she would not be a candidate for intervention. She has been intubated 9-10 days and apparently she has been tolerating C Pap trials to some extent but mental status prevents extubation. Treating team was discussing with family trach/PEG. Apparently family requested transfer back to [place] because they live locally here and wanted her closer to home. Apparently she had been sedated initially with propofol but then was on Precedex from 11/12-11/14. Appears she has been off all continuous sedation since 11/14. Subjective 11/19 No acute events overnight. Palliative care has been consult at family meeting is scheduled for today. After family meeting will will discuss placement of tracheostomy and/or and PEG, based on family's wishes. 11/20: Afebrile .No change in neurological status. Consult placed for tracheostomy and PEG placement as requested by family yesterday. 11/21: Afebrile. Tracheostomy plan for some time next week with general surgery , will try to coordinate with GI for PEG placement. 11/22 No acute events overnight. FOr PEG tube placement today. Afebrile. On no sedation. Objective Vital Signs Date Time Temp Pulse Resp B/P Pulse Ox O2 Delivery O2 Flow Rate FiO2 11/22/16 06:00 79 11/22/16 04:15 96 35 11/22/16 04:00 98.6 17 110/68 Intake and Output 11/21/16 11/21/16 11/22/16 08:00 16:00 00:00 Intake Total 909 ml 1550 ml 1065 ml Output Total 400 ml 400 ml 350 ml Balance 509 ml 1150 ml 715 ml Result Diagram: 11/20/16 0410 11/21/16 0612 Imaging Last Impressions Brain MRI 11/18/16 0825 Signed Impressions: Service Date/Time: November 18:14 - CONCLUSION: Large evolving bifrontal infarctions Nghia Pacheco MD Chest X-Ray 11/18/16 0000 Signed Impressions: Service Date/Time: November 04:06 - CONCLUSION: 1. Interval development of interstitial densities likely interstitial edema. 2. Left lower lobe density likely atelectasis. Jason Dominguez MD Objective Remarks GENERAL: Patient is 65 yo intubated SKIN: Warm and dry. HEAD: Normocephalic. EYES: No scleral icterus. No injection or drainage. NECK: Supple, trachea midline. No JVD or lymphadenopathy. Orally intubated CARDIOVASCULAR: Regular rate and rhythm without murmurs, gallops, or rubs. RESPIRATORY: Breath sounds equal bilaterally. No accessory muscle use. GASTROINTESTINAL: Abdomen soft, non-tender, nondistended. MUSCULOSKELETAL: No cyanosis, or edema. Neuro: Intubated, unresponsive and does not follow commands. Date of Insertion: Nov 19, 2016 A/P Assessment and Plan NEURO: Bifrontal strokes Moyamoya Seizures Keppra 1500 mg IV twice a day Continue aspirin 325 mg by mouth daily Continue bromocriptine 2.5 mg by mouth twice a day Continue atorvastatin 40 mg by mouth daily EEG-noted sharp spikes Neurology is following Has been evaluated tertiary care center and felt to not be a candidate for further intervention. RESP: Respiratory failure COPD Continue with vent support keep sat >92% Post meeting with palliative, plan for tracheostomy/PEG Check CXR Bronchodilators, ICU vent bundle. CV: Coronary artery disease with prior myocardial infarction Hypertension Monitor HR and BP keep MAP>65mmHg. Continue with ASA and Statins GI: Dysphagia Jevity 1.5 @60 mL per hour on hold for PEG tube placement today On Protonix 40mg IV daily for GI prophylaxis : Monitor renal function, I/O's, electrolytes replacement per protocol. d/c IVF ID: Monitor for signs and symptoms of infection. Patient did complete antibiotic course with Unasyn for aspiration pneumonia HEME: Monitor CBC ENDO: Euglycemic PROPH: Hold DVT prophylaxis per neurology secondary to bilateral CVAs. Protonix 40 mg IV daily for stress ulcer prophylaxis. ACCESS: Peripheral IV providing adequate access at this time. Palliative care medicine is following Check labs today Level 3 Missael Oneill MD Nov 22, 2016 08:06
[2016-11-22 08:46] LABS: AUTOMATED NEUTROPHIL # 7.4 TH/MM3 (1.8-7.7); BASOPHIL # 0.1 TH/MM3 (0-0.2); BASOPHIL % 1.3 % (0.0-2.0); EOSINOPHIL # 0.4 TH/MM3 (0-0.4); EOSINOPHIL % 4.3 % (0.0-4.0); HEMATOCRIT 28.1 % (35.0-46.0); HEMO FLAGS DIFF FINAL; LYMPH % 16.4 % (9.0-44.0); LYMPHOCYTE # 1.7 TH/MM3 (1.0-4.8); MEAN CELL VOLUME 84.9 FL (80.0-100.0); MEAN CORPUSCULAR HEMOGLOBIN 28.4 PG (27.0-34.0); MEAN CORPUSCULAR HGB CONC 33.5 % (32.0-36.0); MONO % 5.7 % (0.0-8.0); NEUT % 72.3 % (16.0-70.0); PLATELET COUNT 378 TH/MM3 (150-450); RED BLOOD COUNT 3.31 MIL/MM3 (4.00-5.30); RED CELL DISTRIBUTION WIDTH 14.2 % (11.6-17.2); WHITE BLOOD COUNT 10.3 TH/MM3 (4.0-11.0)
[2016-11-22] MEDS: levETIRAcetam 1000 MG INJ 100 ML IV SCH ×2 (08:47→21:19)
[2016-11-22] MEDS: levETIRAcetam INJ 500 MG in SODIUM CHLORIDE 0.9% INJ 100 ML IV SCH ×2 (08:48→21:20)
[2016-11-22] MEDS: PANTOPRAZOLE SODIUM 40 MG VIAL IV SCH (08:48)
[2016-11-22] MEDS: SODIUM CHLORIDE 0.9% FLUSH 10 ML FLUSH IV FLUSH SCH ×2 (08:48→21:21)
--- NOTE | 2016-11-22 08:48 | RADRPT ---
EXAM DATE/TIME: 11/22/2016 08:00 [facility] COMPARISON: CHEST SINGLE AP, November 18, 2016, 4:06. INDICATIONS : Respiratory failure. MEDICAL HISTORY : None. SURGICAL HISTORY : None. ENCOUNTER: Subsequent ACUITY: 4 - 6 days PAIN SCORE: Non-responsive. LOCATION: Chest FINDINGS: An endotracheal tube has its tip approximately 4 cm above the ted. A nasogastric tube has its tip below diaphragm. The heart is mildly enlarged. There is interval worsening of pulmonary vascular c ongestion which is now in moderate in degree. Small bilateral pleural effusions are noted. CONCLUSION: 1. Worsening pulmonary vascular congestion which is now moderate in degree. 2. Small bilateral pleural effusions. 3. Stable cardiomegaly. 4. Endotracheal tube and nasogastric tube remain in good positions. Roderick Christopher MD on November 22, 2016 at 8:30 Board Certified Radiologist. This report was verified electronically.
[2016-11-22] MEDS: ASPIRIN 81 MG CHEW TAB NG SCH (08:49)
[2016-11-22] MEDS: BROMOCRIPTINE MESYLATE 2.5 MG TAB OG-TUBE SCH ×2 (08:49→21:21)
[2016-11-22] MEDS: DOCUSATE SODIUM 100 MG/10 ML UDC PO SCH ×2 (08:50→21:00)
[2016-11-22] MEDS: SENNOSIDES SYRUP 8.8 MG/5 ML CUP PO SCH ×2 (08:50→21:00)
[2016-11-22] MEDS: FOLIC ACID 1 MG TAB OG-TUBE SCH (08:50)
[2016-11-22] MEDS: ATORVASTATIN 40 MG TAB PO SCH (08:50)
[2016-11-22] MEDS: POLYETHYLENE GLYCOL 17 GM PKG PO SCH (08:50)
[2016-11-22 09:06] LABS: ANION GAP 5 MEQ/L (5-15); AST (GOT) 43 U/L (15-37); BICARBONATE 27.7 MEQ/L (21.0-32.0); BLOOD UREA NITROGEN 21 MG/DL (7-18); CHLORIDE 107 MEQ/L (98-107); GLOMERULAR FILTRATION RATE 112 ML/MIN (>89); MAGNESIUM 2.4 MG/DL (1.5-2.5); POTASSIUM 4.3 MEQ/L (3.5-5.1); SODIUM (NA) 140 MEQ/L (136-145)
[2016-11-22 09:09] LABS: ALKALINE PHOSPHATASE 106 U/L (45-117); ALT (GPT) 70 U/L (10-53); TOTAL BILIRUBIN ADULT 0.5 MG/DL (0.2-1.0)
[2016-11-22] MEDS: RESP: ALBUTEROL 2.5 MG/IPRATROPIUM 0.5 MG NEB (SCH) NEB ×3 (09:47→20:40)
[2016-11-22] MEDS: BUMETANIDE INJ 1 MG/4 ML VIAL IV PUSH SCH (12:28)
[2016-11-22] MEDS ORDERED: PROPOFOL 200 MG/20 ML AMP IV ONE (14:32)
--- NOTE | 2016-11-22 14:48 | GIPROC ---
[facility] [address] [facility]. [facility], [id number] EGD WITH PEG PROCEDURE REPORT EXAM DATE: 11/22/2016 PATIENT NAME: Hamida Rivas MR#: [id number] BIRTHDATE: 1950 ATTENDING: Antoinette Ruiz MD ORDER #: [id number] RN LACTATION CONSULTANT: Geovanni Tamayo Stienbarger, Terrie, and Azalea Freeman STATUS: inpatient INDICATIONS: The patient is a 65 yr old female here for an EGD with PEG due to dysphagia, feeding difficulties, ventilator dependent PROCEDURE PERFORMED: EGD with PEG placement MEDICATIONS: Per Anesthesia and None. TOPICAL ANESTHETIC: none CONSENT: The patient understands the risks and benefits of the procedure and understands that these risks include, but are not limited to: sedation, allergic reaction, infection, perforation and/or bleeding. Alternative means of evaluation and treatment include, among others: physical exam, x-rays, and/or surgical intervention. The patient elects to proceed with this endoscopic procedure. medical equipment was checked for proper function. Hand hygiene and appropriate measures for infection prevention was taken. After the risks, benefits and alternatives of the procedure were thoroughly explained, Informed consent was verified, confirmed and timeout was successfully executed by the treatment team. The patient was anesthetized with topical anesthesia and the Pentax [id number] endoscope was introduced through the mouth and advanced to the second portion of the duodenum. The instrument was slowly withdrawn as the mucosa was fully examined. The upper, middle, and distal third of the esophagus were carefully inspected and no abnormalities were noted. The z-line was well seen at the GEJ. The endoscope was pushed into the fundus which was normal including a retroflexed view. The antrum, first and second part of the duodenum were unremarkable. The stomach was then inflated with air, and by a combination of transillumination and manual palpation, the site for the gastrostomy tube placement was selected and marked on the anterior abdominal wall. The skin of the anterior abdomen was surgically prepped and draped with sterile towels. Utilizing strict sterile technique, the selected site was then anesthetized with 1% xylocaine by injection into the skin and subcutaneous tissue. A 1 cm incision was made through the skin and subcutaneous tissue, and the needle/cannula assembly was then passed through the abdominal wall and through the anterior wall of the stomach, maintaining visualization with the endoscope. A snare device previously placed through the instrument channel was then opened and placed around the cannula, the needle was removed, and the insertion wire was passed through the cannula and into the stomach lumen. The snare was then loosened from the cannula, and repositioned to snare the insertion wire. The snare was then pulled up to the endoscope distal tip, and the scope was then withdrawn bringing with it the snare and insertion wire. The insertion wire was then released from the snare, and then loop-attached to the gastrostomy tube. Using the "pull technique", the G-tube was then pulled into place by traction on the insertion wire at the abdominal wall end. The G-tube insertion site was then cleansed once again, and the external bolster was placed over the tube to secure it to the abdominal wall. A sterile dressing was then applied, and the procedure terminated. a hiatal hernia The gastroscope was then slowly withdrawn and removed. ADVERSE EVENT: There were no complications. IMPRESSIONS: 1. The upper, middle, and distal third of the esophagus were carefully inspected and no abnormalities were noted. The z-line was well seen at the GEJ. The endoscope was pushed into the fundus which was normal including a retroflexed view. The antrum, first and second part of the duodenum were unremarkable. 2. A hiatal hernia RECOMMENDATIONS: 1. Anti-reflux regimen 2. Continue PPI 3. abdominal binder 4. may use peg for medications only today 5. start tf in am REPEAT EXAM: procedure as needed Antoinette Ruiz MD eSigned: Antoinette Ruiz MD 11/22/2016 2:47 PM cc: PATIENT NAME: Hamida Rivas MR#: [id number]
[2016-11-22] MEDS ORDERED: MISC INFORMATION OTHER ONE (15:45)
--- NOTE | 2016-11-22 16:24 | RADRPT ---
EXAM DATE/TIME: 11/22/2016 15:36 [facility] COMPARISON: No previous studies available for comparison. INDICATIONS : Increased lab values. MEDICAL HISTORY : Myocardial infarction. Stroke Hypertension. Seizures. SURGICAL HISTORY : PEG tube. ENCOUNTER: Initial ACUITY: 1 day PAIN SCORE: Nonresponsive. LOCATION: Bilateral upper quadrant MEASUREMENTS: LIVER: 15.0 cm length COMMON DUCT: 3 mm RIGHT KIDNEY: 10.3 x 4.8 x 4.4 cm SPLEEN: 11.3 cm length FINDINGS: Approximate 2 cm gallstone is present without gallbladder wall thickening, or pericholecystic fluid. The visualized liver, head of the pancreas, and right kidney appear grossly intact for technique. Bi lateral pleural effusions are seen. IMPRESSION: Cholelithiasis and bilateral pleural effusions. Jackson Murillo MD on November 22, 2016 at 16:21 Board Certified Radiologist. This report was verified electronically.
[2016-11-23] VITALS (16 sets, daily range): BP systolic 101–155; BP diastolic 57–84; PULSE 69–87; RESP 10–20; TEMP 98.4–99.3; O2SAT 94–98
[2016-11-23] MEDS: INSULIN NovoLIN REGULAR SUPPLEMENTAL SCALE SQ SCH ×4 (02:00→20:00)
[2016-11-23] MEDS: CHLORHEXIDINE GLUCONATE 2 % 1 PACK (2 CLOTHS) TOP SCH (02:42)
[2016-11-23] MEDS: RESP: ALBUTEROL 2.5 MG/IPRATROPIUM 0.5 MG NEB (SCH) NEB ×4 (04:04→20:28)
[2016-11-23 05:16] LABS: AUTOMATED NEUTROPHIL # 7.1 TH/MM3 (1.8-7.7); BASOPHIL % 0.4 % (0.0-2.0); EOSINOPHIL # 0.3 TH/MM3 (0-0.4); EOSINOPHIL % 3.2 % (0.0-4.0); HEMATOCRIT 26.1 % (35.0-46.0); HEMO FLAGS DIFF FINAL; LYMPH % 11.3 % (9.0-44.0); MEAN CELL VOLUME 83.8 FL (80.0-100.0); MEAN CORPUSCULAR HEMOGLOBIN 28.5 PG (27.0-34.0); MONO % 5.9 % (0.0-8.0); NEUT % 79.2 % (16.0-70.0); PLATELET COUNT 373 TH/MM3 (150-450); RED BLOOD COUNT 3.11 MIL/MM3 (4.00-5.30); RED CELL DISTRIBUTION WIDTH 14.2 % (11.6-17.2)
[2016-11-23 05:36] LABS: BICARBONATE 28.3 MEQ/L (21.0-32.0); POTASSIUM 3.9 MEQ/L (3.5-5.1)
[2016-11-23] MEDS: BUMETANIDE INJ 1 MG/4 ML VIAL IV PUSH SCH (08:53)
[2016-11-23] MEDS: DOCUSATE SODIUM 100 MG/10 ML UDC PO SCH ×2 (08:53→19:53)
[2016-11-23] MEDS: POLYETHYLENE GLYCOL 17 GM PKG PO SCH (08:53)
[2016-11-23] MEDS: levETIRAcetam INJ 500 MG in SODIUM CHLORIDE 0.9% INJ 100 ML IV SCH ×2 (08:53→19:52)
[2016-11-23] MEDS: levETIRAcetam 1000 MG INJ 100 ML IV SCH ×2 (08:53→19:52)
[2016-11-23] MEDS: PANTOPRAZOLE SODIUM 40 MG VIAL IV SCH (08:53)
[2016-11-23] MEDS: BROMOCRIPTINE MESYLATE 2.5 MG TAB OG-TUBE SCH ×2 (08:53→22:25)
[2016-11-23] MEDS: FOLIC ACID 1 MG TAB OG-TUBE SCH (08:54)
[2016-11-23] MEDS: SENNOSIDES SYRUP 8.8 MG/5 ML CUP PO SCH ×2 (08:54→19:53)
[2016-11-23] MEDS: SODIUM CHLORIDE 0.9% FLUSH 10 ML FLUSH IV FLUSH SCH ×2 (08:55→19:53)
[2016-11-23] MEDS: CHLORHEXIDINE 0.12% (ORAL KIT) 15 ML CUP MT SCH ×2 (08:56→19:52)
[2016-11-23] MEDS: ATORVASTATIN 40 MG TAB PO SCH (08:59)
[2016-11-23] MEDS: ASPIRIN 81 MG CHEW TAB NG SCH (08:59)
--- NOTE | 2016-11-23 09:04 | HHI.CCPN ---
Subjective Remarks/Hospital Course 65-year-old female with past medical history of stroke for which she at one point was on warfarin but had been discontinued. She was was admitted to [facility] emergency department 11/04/16 with difficulty getting her thoughts together. She was found to have multifocal nonhemorrhagic infarcts in left frontal and parietal regions, right frontal lobe and history of moyamoya disease. She was initially awake and following commands with weakness of RLE and some aphasia. She was transferred to [facility] where he had an cerebral angiogram consistent with moyamoya. There were plans to perform extracranial/intracranial bypass. However she had a seizure and ended up being intubated for status either 11/09 or 11/10.. She was found to have a new right frontal infarct area and she was started on Dilantin and Keppra and it was felt that she would not be a candidate for intervention. She has been intubated 9-10 days and apparently she has been tolerating C Pap trials to some extent but mental status prevents extubation. Treating team was discussing with family trach/PEG. Apparently family requested transfer back to [facility] because they live locally here and wanted her closer to home. Apparently she had been sedated initially with propofol but then was on Precedex from 11/12-11/14. Appears she has been off all continuous sedation since 11/14. Subjective 11/19 No acute events overnight. Palliative care has been consult at family meeting is scheduled for today. After family meeting will will discuss placement of tracheostomy and/or and PEG, based on family's wishes. 11/20: Afebrile .No change in neurological status. Consult placed for tracheostomy and PEG placement as requested by family yesterday. 11/21: Afebrile. Tracheostomy plan for some time next week with general surgery , will try to coordinate with GI for PEG placement. 11/22 No acute events overnight. FOr PEG tube placement today. Afebrile. On no sedation. 11/23 Patient remains intubated on no sedation s/p PEG tube placement yesterday for trach today. Afebrile. Objective Vital Signs Date Time Temp Pulse Resp B/P Pulse Ox O2 Delivery O2 Flow Rate FiO2 11/23/16 08:05 96 35 11/23/16 06:00 81 11/23/16 04:00 98.5 20 124/69 Intake and Output 11/22/16 11/22/16 11/23/16 08:00 16:00 00:00 Intake Total 622 ml 531 ml 335 ml Output Total 300 ml 800 ml 1305 ml Balance 322 ml -269 ml -970 ml Result Diagram: 11/23/16 0434 11/23/16 0434 Other Results Laboratory Tests Test 11/23/16 04:34 White Blood Count 9.0 TH/MM3 Red Blood Count 3.11 MIL/MM3 Hemoglobin 8.9 GM/DL Hematocrit 26.1 % Mean Corpuscular Volume 83.8 FL Mean Corpuscular Hemoglobin 28.5 PG Mean Corpuscular Hemoglobin 34.0 % Concent Red Cell Distribution Width 14.2 % Platelet Count 373 TH/MM3 Mean Platelet Volume 9.0 FL Neutrophils (%) (Auto) 79.2 % Lymphocytes (%) (Auto) 11.3 % Monocytes (%) (Auto) 5.9 % Eosinophils (%) (Auto) 3.2 % Basophils (%) (Auto) 0.4 % Neutrophils # (Auto) 7.1 TH/MM3 Lymphocytes # (Auto) 1.0 TH/MM3 Monocytes # (Auto) 0.5 TH/MM3 Eosinophils # (Auto) 0.3 TH/MM3 Basophils # (Auto) 0.0 TH/MM3 CBC Comment DIFF FINAL Differential Comment Sodium Level 140 MEQ/L Potassium Level 3.9 MEQ/L Chloride Level 103 MEQ/L Carbon Dioxide Level 28.3 MEQ/L Anion Gap 9 MEQ/L Blood Urea Nitrogen 22 MG/DL Creatinine 0.56 MG/DL Estimat Glomerular Filtration 109 ML/MIN Rate Random Glucose 83 MG/DL Calcium Level 8.6 MG/DL Imaging Last Impressions Chest X-Ray 11/22/16 0000 Signed Impressions: Service Date/Time: Tuesday, November 22, 2016 08:00 - CONCLUSION: 1. Worsening pulmonary vascular congestion which is now moderate in degree. 2. Small bilateral pleural effusions. 3. Stable cardiomegaly. 4. Endotracheal tube and nasogastric tube remain in good positions. Roderick Christopher MD Brain MRI 11/18/16 0825 Signed Impressions: Service Date/Time: November 18:14 - CONCLUSION: Large evolving bifrontal infarctions Nghia Pacheco MD Objective Remarks GENERAL: Patient is 65 yo intubated SKIN: Warm and dry. HEAD: Normocephalic. EYES: No scleral icterus. No injection or drainage. NECK: Supple, trachea midline. No JVD or lymphadenopathy. Orally intubated CARDIOVASCULAR: Regular rate and rhythm without murmurs, gallops, or rubs. RESPIRATORY: Breath sounds equal bilaterally. No accessory muscle use. GASTROINTESTINAL: Abdomen soft, non-tender, nondistended. MUSCULOSKELETAL: No cyanosis, or edema. Neuro: Intubated, unresponsive and does not follow commands. Date of Insertion: Nov 19, 2016 A/P Assessment and Plan NEURO: Bifrontal strokes Moyamoya Seizures Keppra 1500 mg IV twice a day Hold aspirin for trach today Continue bromocriptine 2.5 mg by mouth twice a day Continue atorvastatin 40 mg by mouth daily EEG-noted sharp spikes Neurology is following Has been evaluated tertiary care center and felt to not be a candidate for further intervention. RESP: Respiratory failure COPD Continue with vent support keep sat >92% Bronchodilators, ICU vent bundle. For trach today CV: Coronary artery disease with prior myocardial infarction Hypertension Monitor HR and BP keep MAP>65mmHg. Continue with ASA, hold statin for increase LFT GI: Dysphagia s/p PEG tube placement 11/22 TF(Jevity 1.5 @60 mL per hour) on hold for trach tube placement today On Protonix 40mg IV daily for GI prophylaxis Monitor LFT's. US liver: Cholelithiasis : Monitor renal function, I/O's, electrolytes replacement per protocol. On Bumex 1mg daily ID: Monitor for signs and symptoms of infection. s/p Unasyn course for aspiration pneumonia HEME: Monitor CBC ENDO: Euglycemic PROPH: Hold DVT prophylaxis per neurology secondary to bilateral CVAs. Protonix 40 mg IV daily for stress ulcer prophylaxis. ACCESS: Peripheral IV providing adequate access at this time. Palliative care medicine is following Level 3 Missael Oneill MD Nov 23, 2016 09:04
[2016-11-23] MEDS ORDERED: VECURONIUM BROMIDE 10 MG VIAL IV PUSH ONE (09:15)
[2016-11-23] MEDS ORDERED: MIDAZOLAM HCL 5 MG/ML VIAL (1 ML) IV PUSH ONE (09:15)
[2016-11-23] MEDS ORDERED: fentaNYL CITRATE 250 MCG/5 ML AMP IV PUSH ONE (09:15)
[2016-11-23] MEDS: ACETAMINOPHEN 325 MG TAB PO PRN (15:52)
[2016-11-23] MEDS: MORPHINE SULFATE 4 MG/ML INJ IV PRN (22:22)
[2016-11-23] MEDS ORDERED: METOPROLOL TARTRATE 5 MG/5 ML VIAL IV PUSH PRN (22:45)
[2016-11-24] VITALS (13 sets, daily range): BP systolic 107–163; BP diastolic 60–97; PULSE 68–82; RESP 10–26; TEMP 98.2–98.9; O2SAT 97–100
[2016-11-24] MEDS: INSULIN NovoLIN REGULAR SUPPLEMENTAL SCALE SQ SCH ×4 (02:00→20:00)
[2016-11-24] MEDS: CHLORHEXIDINE GLUCONATE 2 % 1 PACK (2 CLOTHS) TOP SCH (02:52)
[2016-11-24] MEDS: RESP: ALBUTEROL 2.5 MG/IPRATROPIUM 0.5 MG NEB (SCH) NEB ×3 (03:39→21:27)
[2016-11-24 05:22] LABS: AUTOMATED NEUTROPHIL # 5.3 TH/MM3 (1.8-7.7); BASOPHIL % 0.6 % (0.0-2.0); EOSINOPHIL # 0.3 TH/MM3 (0-0.4); EOSINOPHIL % 4.6 % (0.0-4.0); HEMATOCRIT 26.6 % (35.0-46.0); HEMO FLAGS DIFF FINAL; LYMPH % 16.8 % (9.0-44.0); LYMPHOCYTE # 1.2 TH/MM3 (1.0-4.8); MEAN CELL VOLUME 84.1 FL (80.0-100.0); MEAN CORPUSCULAR HEMOGLOBIN 28.1 PG (27.0-34.0); MEAN CORPUSCULAR HGB CONC 33.4 % (32.0-36.0); MONO % 6.2 % (0.0-8.0); NEUT % 71.8 % (16.0-70.0); PLATELET COUNT 389 TH/MM3 (150-450); RED BLOOD COUNT 3.17 MIL/MM3 (4.00-5.30); RED CELL DISTRIBUTION WIDTH 13.7 % (11.6-17.2); WHITE BLOOD COUNT 7.3 TH/MM3 (4.0-11.0)
[2016-11-24 05:45] LABS: ALKALINE PHOSPHATASE 127 U/L (45-117); ALT (GPT) 46 U/L (10-53); ANION GAP 10 MEQ/L (5-15); AST (GOT) 38 U/L (15-37); BICARBONATE 29.2 MEQ/L (21.0-32.0); BLOOD UREA NITROGEN 23 MG/DL (7-18); CHLORIDE 102 MEQ/L (98-107); GLOMERULAR FILTRATION RATE 112 ML/MIN (>89); MAGNESIUM 2.1 MG/DL (1.5-2.5); POTASSIUM 3.4 MEQ/L (3.5-5.1); SODIUM (NA) 141 MEQ/L (136-145); TOTAL BILIRUBIN ADULT 0.5 MG/DL (0.2-1.0)
[2016-11-24] MEDS: levETIRAcetam INJ 500 MG in SODIUM CHLORIDE 0.9% INJ 100 ML IV SCH ×2 (08:07→22:22)
[2016-11-24] MEDS: POLYETHYLENE GLYCOL 17 GM PKG PO SCH (08:08)
[2016-11-24] MEDS: SENNOSIDES SYRUP 8.8 MG/5 ML CUP PO SCH ×2 (08:08→22:22)
[2016-11-24] MEDS: ASPIRIN 81 MG CHEW TAB NG SCH (08:08)
[2016-11-24] MEDS: BUMETANIDE INJ 1 MG/4 ML VIAL IV PUSH SCH (08:08)
[2016-11-24] MEDS: levETIRAcetam 1000 MG INJ 100 ML IV SCH ×2 (08:08→22:21)
[2016-11-24] MEDS: PANTOPRAZOLE SODIUM 40 MG VIAL IV SCH (08:08)
[2016-11-24] MEDS: BROMOCRIPTINE MESYLATE 2.5 MG TAB OG-TUBE SCH ×2 (08:08→22:23)
[2016-11-24] MEDS: DOCUSATE SODIUM 100 MG/10 ML UDC PO SCH ×2 (08:08→22:23)
[2016-11-24] MEDS: FOLIC ACID 1 MG TAB OG-TUBE SCH (08:08)
[2016-11-24] MEDS: SODIUM CHLORIDE 0.9% FLUSH 10 ML FLUSH IV FLUSH SCH ×2 (08:09→22:23)
[2016-11-24] MEDS: CHLORHEXIDINE 0.12% (ORAL KIT) 15 ML CUP MT SCH ×2 (08:11→20:00)
[2016-11-24] MEDS: POTASSIUM CHLOR 20 MEQ PREMIX 100 ML IV PRN (09:15)
--- NOTE | 2016-11-24 09:48 | HHI.CCPN ---
Subjective Remarks/Hospital Course 65-year-old female with past medical history of stroke for which she at one point was on warfarin but had been discontinued. She was was admitted to [facility] emergency department 11/04/16 with difficulty getting her thoughts together. She was found to have multifocal nonhemorrhagic infarcts in left frontal and parietal regions, right frontal lobe and history of moyamoya disease. She was initially awake and following commands with weakness of RLE and some aphasia. She was transferred to [facility] where he had an cerebral angiogram consistent with moyamoya. There were plans to perform extracranial/intracranial bypass. However she had a seizure and ended up being intubated for status either 11/09 or 11/10.. She was found to have a new right frontal infarct area and she was started on Dilantin and Keppra and it was felt that she would not be a candidate for intervention. She has been intubated 9-10 days and apparently she has been tolerating C Pap trials to some extent but mental status prevents extubation. Treating team was discussing with family trach/PEG. Apparently family requested transfer back to [place] because they live locally here and wanted her closer to home. Apparently she had been sedated initially with propofol but then was on Precedex from 11/12-11/14. Appears she has been off all continuous sedation since 11/14. Subjective 11/19 No acute events overnight. Palliative care has been consult at family meeting is scheduled for today. After family meeting will will discuss placement of tracheostomy and/or and PEG, based on family's wishes. 11/20: Afebrile .No change in neurological status. Consult placed for tracheostomy and PEG placement as requested by family yesterday. 11/21: Afebrile. Tracheostomy plan for some time next week with general surgery , will try to coordinate with GI for PEG placement. 11/22 No acute events overnight. FOr PEG tube placement today. Afebrile. On no sedation. 11/23 Patient remains intubated on no sedation s/p PEG tube placement yesterday for trach today. Afebrile. 11/24 No acute events overnight. For trach today. Afebrile. Objective Vital Signs Date Time Temp Pulse Resp B/P Pulse Ox O2 Delivery O2 Flow Rate FiO2 11/24/16 08:32 97 35 11/24/16 04:00 79 11/24/16 04:00 98.8 19 107/97 Intake and Output 11/23/16 11/23/16 11/24/16 08:00 16:00 00:00 Intake Total 290 ml 492 ml Output Total 150 ml 1800 ml 375 ml Balance -150 ml -1510 ml 117 ml Result Diagram: 11/24/16 0436 11/24/16 0436 Other Results Laboratory Tests Test 11/24/16 04:36 White Blood Count 7.3 TH/MM3 Red Blood Count 3.17 MIL/MM3 Hemoglobin 8.9 GM/DL Hematocrit 26.6 % Mean Corpuscular Volume 84.1 FL Mean Corpuscular Hemoglobin 28.1 PG Mean Corpuscular Hemoglobin 33.4 % Concent Red Cell Distribution Width 13.7 % Platelet Count 389 TH/MM3 Mean Platelet Volume 9.3 FL Neutrophils (%) (Auto) 71.8 % Lymphocytes (%) (Auto) 16.8 % Monocytes (%) (Auto) 6.2 % Eosinophils (%) (Auto) 4.6 % Basophils (%) (Auto) 0.6 % Neutrophils # (Auto) 5.3 TH/MM3 Lymphocytes # (Auto) 1.2 TH/MM3 Monocytes # (Auto) 0.5 TH/MM3 Eosinophils # (Auto) 0.3 TH/MM3 Basophils # (Auto) 0.0 TH/MM3 CBC Comment DIFF FINAL Differential Comment Sodium Level 141 MEQ/L Potassium Level 3.4 MEQ/L Chloride Level 102 MEQ/L Carbon Dioxide Level 29.2 MEQ/L Anion Gap 10 MEQ/L Blood Urea Nitrogen 23 MG/DL Creatinine 0.55 MG/DL Estimat Glomerular Filtration 112 ML/MIN Rate Random Glucose 95 MG/DL Calcium Level 8.5 MG/DL Phosphorus Level 3.2 MG/DL Magnesium Level 2.1 MG/DL Total Bilirubin 0.5 MG/DL Aspartate Amino Transf 38 U/L (AST/SGOT) Alanine Aminotransferase 46 U/L (ALT/SGPT) Alkaline Phosphatase 127 U/L Total Protein 6.4 GM/DL Albumin 2.1 GM/DL Imaging Last Impressions Chest X-Ray 11/22/16 0000 Signed Impressions: Service Date/Time: Tuesday, November 22, 2016 08:00 - CONCLUSION: 1. Worsening pulmonary vascular congestion which is now moderate in degree. 2. Small bilateral pleural effusions. 3. Stable cardiomegaly. 4. Endotracheal tube and nasogastric tube remain in good positions. Roderick Christopher MD Brain MRI 11/18/16 0825 Signed Impressions: Service Date/Time: November 18:14 - CONCLUSION: Large evolving bifrontal infarctions Nghia Pacheco MD Objective Remarks GENERAL: Patient is 65 yo intubated SKIN: Warm and dry. HEAD: Normocephalic. EYES: No scleral icterus. No injection or drainage. NECK: Supple, trachea midline. No JVD or lymphadenopathy. Orally intubated CARDIOVASCULAR: Regular rate and rhythm without murmurs, gallops, or rubs. RESPIRATORY: Breath sounds equal bilaterally. No accessory muscle use. GASTROINTESTINAL: Abdomen soft, non-tender, nondistended. MUSCULOSKELETAL: No cyanosis, or edema. Neuro: Intubated, unresponsive and does not follow commands. Date of Insertion: Nov 19, 2016 A/P Assessment and Plan NEURO: Bifrontal strokes Moyamoya Seizures Keppra 1500 mg IV twice a day Hold aspirin for trach today Continue bromocriptine 2.5 mg by mouth twice a day Continue atorvastatin 40 mg by mouth daily EEG-noted sharp spikes Neurology is following Has been evaluated tertiary care center and felt to not be a candidate for further intervention. RESP: Respiratory failure COPD Continue with vent support keep sat >92% Bronchodilators, ICU vent bundle. For trach today CV: Coronary artery disease with prior myocardial infarction Hypertension Monitor HR and BP keep MAP>65mmHg. Continue with ASA, hold statin for increase LFT GI: Dysphagia s/p PEG tube placement 11/22 TF(Jevity 1.5 @60 mL per hour) on hold for trach tube placement today On Protonix 40mg IV daily for GI prophylaxis Monitor LFT's. US liver: Cholelithiasis : Monitor renal function, I/O's, electrolytes replacement per protocol. On Bumex 1mg daily. Will need K replacement today. ID: Monitor for signs and symptoms of infection. s/p Unasyn course for aspiration pneumonia HEME: Monitor CBC ENDO: Euglycemic PROPH: Hold DVT prophylaxis per neurology secondary to bilateral CVAs. Protonix 40 mg IV daily for stress ulcer prophylaxis. ACCESS: Peripheral IV providing adequate access at this time. Palliative care medicine is following Level 3 Missael Oneill MD Nov 24, 2016 09:48
[2016-11-24] MEDS ORDERED: VECURONIUM BROMIDE 10 MG VIAL IV PUSH ONE (12:30)
[2016-11-24] MEDS ORDERED: MIDAZOLAM HCL 2 MG/2 ML VIAL IV PUSH ONE (12:30)
--- NOTE | 2016-11-24 14:50 | RADRPT ---
EXAM DATE/TIME: 11/24/2016 14:13 [place] COMPARISON: CHEST SINGLE AP, November 22, 2016, 8:00. INDICATIONS : Trach placement. MEDICAL HISTORY : Hypertension. Chronic obstructive pulmonary disease. Myocardial infarction. SURGICAL HISTORY : None. ENCOUNTER: Subsequent ACUITY: 2 weeks PAIN SCORE: Non-responsive. LOCATION: Bilateral chest FINDINGS: Trach tube is in good position. The heart is enlarged. Mild interstitial edema is present. [place] dative changes are present in both bases, worse on the left than the right. CONCLUSION: Trach tube in good position. Kenneth Frost MD FACR on November 24, 2016 at 14:46 Board Certified Radiologist. This report was verified electronically.
[2016-11-25] VITALS (18 sets, daily range): BP systolic 142–158; BP diastolic 70–90; PULSE 72–90; RESP 14–20; TEMP 98.1–99.4; O2SAT 95–100
[2016-11-25] MEDS: INSULIN NovoLIN REGULAR SUPPLEMENTAL SCALE SQ SCH ×4 (02:00→20:00)
[2016-11-25] MEDS: RESP: ALBUTEROL 2.5 MG/IPRATROPIUM 0.5 MG NEB (SCH) NEB ×4 (03:12→19:48)
[2016-11-25] MEDS: CHLORHEXIDINE GLUCONATE 2 % 1 PACK (2 CLOTHS) TOP SCH (04:00)
[2016-11-25] MEDS: ONDANSETRON HCL 4 MG/2 ML VIAL IV PRN (05:15)
[2016-11-25 06:32] LABS: BASOPHIL % 0.4 % (0.0-2.0); EOSINOPHIL # 0.1 TH/MM3 (0-0.4); EOSINOPHIL % 1.5 % (0.0-4.0); HEMATOCRIT 27.8 % (35.0-46.0); HEMO FLAGS DIFF FINAL; LYMPH % 5.7 % (9.0-44.0); LYMPHOCYTE # 0.5 TH/MM3 (1.0-4.8); MEAN CELL VOLUME 83.6 FL (80.0-100.0); MEAN CORPUSCULAR HEMOGLOBIN 28.1 PG (27.0-34.0); MEAN CORPUSCULAR HGB CONC 33.6 % (32.0-36.0); MONO % 4.4 % (0.0-8.0); PLATELET COUNT 394 TH/MM3 (150-450); RED BLOOD COUNT 3.33 MIL/MM3 (4.00-5.30); RED CELL DISTRIBUTION WIDTH 13.8 % (11.6-17.2); WHITE BLOOD COUNT 9.1 TH/MM3 (4.0-11.0)
[2016-11-25 07:11] LABS: BICARBONATE 30.1 MEQ/L (21.0-32.0); POTASSIUM 3.9 MEQ/L (3.5-5.1)
[2016-11-25] MEDS: levETIRAcetam INJ 500 MG in SODIUM CHLORIDE 0.9% INJ 100 ML IV SCH ×2 (08:08→20:58)
[2016-11-25] MEDS: levETIRAcetam 1000 MG INJ 100 ML IV SCH ×2 (08:08→20:52)
[2016-11-25] MEDS: PANTOPRAZOLE SODIUM 40 MG VIAL IV SCH (08:09)
[2016-11-25] MEDS: BUMETANIDE INJ 1 MG/4 ML VIAL IV PUSH SCH (08:09)
[2016-11-25] MEDS: DOCUSATE SODIUM 100 MG/10 ML UDC PO SCH ×2 (08:10→20:53)
[2016-11-25] MEDS: POLYETHYLENE GLYCOL 17 GM PKG PO SCH (08:10)
[2016-11-25] MEDS: SENNOSIDES SYRUP 8.8 MG/5 ML CUP PO SCH ×2 (08:10→20:53)
[2016-11-25] MEDS: SODIUM CHLORIDE 0.9% FLUSH 10 ML FLUSH IV FLUSH SCH ×2 (08:10→20:53)
[2016-11-25] MEDS: BROMOCRIPTINE MESYLATE 2.5 MG TAB OG-TUBE SCH ×2 (08:10→20:53)
[2016-11-25] MEDS: ASPIRIN 81 MG CHEW TAB NG SCH (08:11)
[2016-11-25] MEDS: FOLIC ACID 1 MG TAB OG-TUBE SCH (08:15)
[2016-11-25] MEDS: CHLORHEXIDINE 0.12% (ORAL KIT) 15 ML CUP MT SCH ×2 (08:26→20:00)
--- NOTE | 2016-11-25 08:32 | HHI.CCPN ---
Subjective Remarks/Hospital Course 65-year-old female with past medical history of stroke for which she at one point was on warfarin but had been discontinued. She was was admitted to [facility] emergency department 11/04/16 with difficulty getting her thoughts together. She was found to have multifocal nonhemorrhagic infarcts in left frontal and parietal regions, right frontal lobe and history of moyamoya disease. She was initially awake and following commands with weakness of RLE and some aphasia. She was transferred to [facility] where he had an cerebral angiogram consistent with moyamoya. There were plans to perform extracranial/intracranial bypass. However she had a seizure and ended up being intubated for status either 11/09 or 11/10.. She was found to have a new right frontal infarct area and she was started on Dilantin and Keppra and it was felt that she would not be a candidate for intervention. She has been intubated 9-10 days and apparently she has been tolerating C Pap trials to some extent but mental status prevents extubation. Treating team was discussing with family trach/PEG. Apparently family requested transfer back to [place] because they live locally here and wanted her closer to home. Apparently she had been sedated initially with propofol but then was on Precedex from 11/12-11/14. Appears she has been off all continuous sedation since 11/14. Subjective 11/19 No acute events overnight. Palliative care has been consult at family meeting is scheduled for today. After family meeting will will discuss placement of tracheostomy and/or and PEG, based on family's wishes. 11/20: Afebrile .No change in neurological status. Consult placed for tracheostomy and PEG placement as requested by family yesterday. 11/21: Afebrile. Tracheostomy plan for some time next week with general surgery , will try to coordinate with GI for PEG placement. 11/22 No acute events overnight. FOr PEG tube placement today. Afebrile. On no sedation. 11/23 Patient remains intubated on no sedation s/p PEG tube placement yesterday for trach today. Afebrile. 11/24 No acute events overnight. For trach today. Afebrile. 11/25 Patient s/p trach yesterday had an episode of emesis overnight and tube feeds placed on hold. Afebrile. Objective Vital Signs Date Time Temp Pulse Resp B/P Pulse Ox O2 Delivery O2 Flow Rate FiO2 11/25/16 06:00 72 11/25/16 04:37 96 35 11/25/16 04:00 98.7 15 143/90 Intake and Output 11/24/16 11/24/16 11/25/16 08:00 16:00 00:00 Intake Total 545 ml 460 ml Output Total 175 ml 1450 ml 250 ml Balance -175 ml -905 ml 210 ml Result Diagram: 11/25/1618 11/25/1618 Other Results Laboratory Tests Test 11/25/16 06:18 White Blood Count 9.1 TH/MM3 Red Blood Count 3.33 MIL/MM3 Hemoglobin 9.3 GM/DL Hematocrit 27.8 % Mean Corpuscular Volume 83.6 FL Mean Corpuscular Hemoglobin 28.1 PG Mean Corpuscular Hemoglobin 33.6 % Concent Red Cell Distribution Width 13.8 % Platelet Count 394 TH/MM3 Mean Platelet Volume 8.1 FL Neutrophils (%) (Auto) 88.0 % Lymphocytes (%) (Auto) 5.7 % Monocytes (%) (Auto) 4.4 % Eosinophils (%) (Auto) 1.5 % Basophils (%) (Auto) 0.4 % Neutrophils # (Auto) 8.0 TH/MM3 Lymphocytes # (Auto) 0.5 TH/MM3 Monocytes # (Auto) 0.4 TH/MM3 Eosinophils # (Auto) 0.1 TH/MM3 Basophils # (Auto) 0.0 TH/MM3 CBC Comment DIFF FINAL Differential Comment Sodium Level 140 MEQ/L Potassium Level 3.9 MEQ/L Chloride Level 102 MEQ/L Carbon Dioxide Level 30.1 MEQ/L Anion Gap 8 MEQ/L Blood Urea Nitrogen 21 MG/DL Creatinine 0.51 MG/DL Estimat Glomerular Filtration 122 ML/MIN Rate Random Glucose 108 MG/DL Calcium Level 8.6 MG/DL Imaging Last Impressions Chest X-Ray 11/22/16 0000 Signed Impressions: Service Date/Time: Tuesday, November 22, 2016 08:00 - CONCLUSION: 1. Worsening pulmonary vascular congestion which is now moderate in degree. 2. Small bilateral pleural effusions. 3. Stable cardiomegaly. 4. Endotracheal tube and nasogastric tube remain in good positions. Roderick Christopher MD Brain MRI 11/18/16 0825 Signed Impressions: Service Date/Time: November 18:14 - CONCLUSION: Large evolving bifrontal infarctions Nghia Pacheco MD Objective Remarks GENERAL: Patient is 65 yo intubated SKIN: Warm and dry. HEAD: Normocephalic. EYES: No scleral icterus. No injection or drainage. NECK: Supple, trachea midline. No JVD or lymphadenopathy. Trach in place CARDIOVASCULAR: Regular rate and rhythm without murmurs, gallops, or rubs. RESPIRATORY: Breath sounds equal bilaterally. No accessory muscle use. GASTROINTESTINAL: Abdomen soft, non-tender, nondistended. PEG tube in place MUSCULOSKELETAL: No cyanosis, or edema. Neuro: Intubated, unresponsive and does not follow commands. Date of Insertion: Nov 19, 2016 A/P Assessment and Plan NEURO: Bifrontal strokes Moyamoya Seizures Keppra 1500 mg IV twice a day Hold aspirin for trach today Continue bromocriptine 2.5 mg by mouth twice a day Continue atorvastatin 40 mg by mouth daily EEG-noted sharp spikes Neurology is following Has been evaluated tertiary care center and felt to not be a candidate for further intervention. RESP: Respiratory failure COPD Continue with vent support keep sat >92% Bronchodilators, ICU vent bundle. SBT trials as nikolas s/p trach 11/24. Pulm toilet, trach care CV: Coronary artery disease with prior myocardial infarction Hypertension Monitor HR and BP keep MAP>65mmHg. Continue with ASA, statin on hold for increase LFT GI: Dysphagia s/p PEG tube placement 11/22 Resume TF(Jevity 1.5 with goal rate 60 mL per hour) monitor for residuals On Protonix 40mg IV daily for GI prophylaxis Monitor LFT's. US liver: Cholelithiasis : Monitor renal function, I/O's, electrolytes replacement per protocol. On Bumex 1mg daily. ID: Monitor for signs and symptoms of infection. s/p Unasyn course for aspiration pneumonia Check sputum cx and UA with cx if indicated. HEME: Monitor CBC ENDO: Euglycemic PROPH: Hold DVT prophylaxis per neurology secondary to bilateral CVAs. Protonix 40 mg IV daily for stress ulcer prophylaxis. ACCESS: Peripheral IV providing adequate access at this time. Palliative care medicine is following Level 3 Missael Oneill MD Nov 25, 2016 08:32
[2016-11-25 08:54] LABS: INDIRECT BILIRUBIN 0.4 MG/DL (0.0-0.8); TOTAL BILIRUBIN ADULT 0.6 MG/DL (0.2-1.0)
--- NOTE | 2016-11-25 12:21 | HHI.HCPN ---
Reason for visit a. To assist with evaluation and management of symptoms including: encephalopathy, seizure, dyspnea. b. To assist medical decision maker(s) with: better understanding of current medical conditions; weighing benefits/burdens of medical treatment options; making medical treatment decisions. . Subjective/Interval History Pt seen to follow up on comfort post trach/PEG earlier this week. She remains on mech vent, no sedation. Nsg reports periods of eye opening, no consistent tracking. No following of commands.Episode of emesis overnight, TF held. Tube feeding resumed this morning. + Bowel movements, last BM 11/23. Labs stable/unremarkable. CXR yesterday notes tracheostomy in good position. Mild interstitial edema. Consolidative changes bilateral bases, left worse than right. Patient seen in room, dual visit with Alicia DICKERSON. No visitors present. She is lethargic, on mechanical vent.+ Spontaneous respirations on CPAP. Slight eye opening/blinking to allow in vigorous verbal stimuli. Does not keep eyes open, does not track examiner. Does not follow any commands. Does not withdraw extremities to pain. Right upper extremity is somewhat rigid when ROM attempted. No signs of distress or pain. Following exam call to daughter to provide update, voicemail left. . Advance Directives Living Will: Never completed Health Care Surrogate: Never completed Durable Power of Therapist Respiratory: Never completed Advance Directive Specifics Health Care Surrogate(s): No known written advance directives. Patient currently incapacitated to make her healthcare decisions. According to [place] statutes health care proxy decision-making falls to the majority of adult children. Patient has 3 children. . Objective Vital Signs Date Time Temp Pulse Resp B/P Pulse Ox O2 Delivery O2 Flow Rate FiO2 11/25/16 11:25 100 35 11/25/16 10:00 78 11/25/16 09:10 99 35 11/25/16 09:10 35 11/25/16 08:18 40 11/25/16 08:00 35 11/25/16 08:00 80 11/25/16 08:00 99.4 76 14 142/74 98 11/25/16 06:00 72 11/25/16 04:37 96 35 11/25/16 04:00 98.7 81 15 143/90 98 11/25/16 04:00 81 11/25/16 04:00 35 11/25/16 02:00 79 4/20/17 01:30 98 35 11/25/16 00:00 35 11/25/16 00:00 81 11/25/16 00:00 98.7 81 15 143/90 98 11/24/16 22:00 72 11/24/16 21:27 97 35 11/24/16 20:00 74 11/24/16 20:00 98.7 74 10 151/80 98 11/24/16 20:00 35 11/24/16 16:00 98.4 69 21 133/79 100 11/24/16 16:00 35 11/24/16 14:00 35 11/24/16 13:45 99 100 Intake & Output 11/25/16 11/25/16 07:00 19:00 Intake Total 775 ml Output Total 500 ml Balance 275 ml IV Total 205 ml Tube Feeding 390 ml Tube Irrigant 180 ml Output Urine Total 500 ml # Bowel Movements 0 Physical Exam CONSTITUTIONAL/GENERAL: critically ill patient, on mechanical ventilation. TUBES/LINES/DRAINS:NG right nare, ETT, PIV Upper extremity, Tracheostomy, Brown , SCDs, multipodus boots. CARDIOVASCULAR: Regular rate and rhythm RESPIRATORY/CHEST: trach midline. Symmetric, unlabored respirations via trach to mech vent. Clear to auscultation. GASTROINTESTINAL: Abdomen soft, nondistended. Bowel sounds active. +PEG LUQ site asymptomatic, +TF infusing GENITOURINARY: Without palpable bladder distension. Brown catheter in place- clear dark yellow urine. NEUROLOGICAL: Slight eye opening/flutter to vigorous verbal stimuli. Extremities with no withdrawal to pain, slight rigidity to right upper extremity with range of motion. PSYCHIATRIC: off sedation. Limited clinical assessment, non-responsive, no signs of anxiety or delirium Diagnostic Tests Laboratory Laboratory Tests Test 11/23/16 11/24/16 11/25/16 04:34 04:36 06:18 White Blood Count 9.0 TH/MM3 7.3 TH/MM3 9.1 TH/MM3 (4.0-11.0) (4.0-11.0) (4.0-11.0) Red Blood Count 3.11 MIL/MM3 3.17 MIL/MM3 3.33 MIL/MM3 (4.00-5.30) (4.00-5.30) (4.00-5.30) Hemoglobin 8.9 GM/DL 8.9 GM/DL 9.3 GM/DL (11.6-15.3) (11.6-15.3) (11.6-15.3) Hematocrit 26.1 % 26.6 % 27.8 % (35.0-46.0) (35.0-46.0) (35.0-46.0) Mean Corpuscular Volume 83.8 FL 84.1 FL 83.6 FL (80.0-100.0) (80.0-100.0) (80.0-100.0) Mean Corpuscular Hemoglobin 28.5 PG 28.1 PG 28.1 PG (27.0-34.0) (27.0-34.0) (27.0-34.0) Mean Corpuscular Hemoglobin 34.0 % 33.4 % 33.6 % Concent (32.0-36.0) (32.0-36.0) (32.0-36.0) Red Cell Distribution Width 14.2 % 13.7 % 13.8 % (11.6-17.2) (11.6-17.2) (11.6-17.2) Platelet Count 373 TH/MM3 389 TH/MM3 394 TH/MM3 (150-450) (150-450) (150-450) Mean Platelet Volume 9.0 FL 9.3 FL 8.1 FL (7.0-11.0) (7.0-11.0) (7.0-11.0) Neutrophils (%) (Auto) 79.2 % 71.8 % 88.0 % (16.0-70.0) (16.0-70.0) (16.0-70.0) Lymphocytes (%) (Auto) 11.3 % 16.8 % 5.7 % (9.0-44.0) (9.0-44.0) (9.0-44.0) Monocytes (%) (Auto) 5.9 % (0.0-8.0) 6.2 % (0.0-8.0) 4.4 % (0.0-8.0) Eosinophils (%) (Auto) 3.2 % (0.0-4.0) 4.6 % (0.0-4.0) 1.5 % (0.0-4.0) Basophils (%) (Auto) 0.4 % (0.0-2.0) 0.6 % (0.0-2.0) 0.4 % (0.0-2.0) Neutrophils # (Auto) 7.1 TH/MM3 5.3 TH/MM3 8.0 TH/MM3 (1.8-7.7) (1.8-7.7) (1.8-7.7) Lymphocytes # (Auto) 1.0 TH/MM3 1.2 TH/MM3 0.5 TH/MM3 (1.0-4.8) (1.0-4.8) (1.0-4.8) Monocytes # (Auto) 0.5 TH/MM3 0.5 TH/MM3 0.4 TH/MM3 (0-0.9) (0-0.9) (0-0.9) Eosinophils # (Auto) 0.3 TH/MM3 0.3 TH/MM3 0.1 TH/MM3 (0-0.4) (0-0.4) (0-0.4) Basophils # (Auto) 0.0 TH/MM3 0.0 TH/MM3 0.0 TH/MM3 (0-0.2) (0-0.2) (0-0.2) CBC Comment DIFF FINAL DIFF FINAL DIFF FINAL Differential Comment Sodium Level 140 MEQ/L 141 MEQ/L 140 MEQ/L (136-145) (136-145) (136-145) Potassium Level 3.9 MEQ/L 3.4 MEQ/L 3.9 MEQ/L (3.5-5.1) (3.5-5.1) (3.5-5.1) Chloride Level 103 MEQ/L 102 MEQ/L 102 MEQ/L (98-107) (98-107) (98-107) Carbon Dioxide Level 28.3 MEQ/L 29.2 MEQ/L 30.1 MEQ/L (21.0-32.0) (21.0-32.0) (21.0-32.0) Anion Gap 9 MEQ/L (5-15) 10 MEQ/L (5-15) 8 MEQ/L (5-15) Blood Urea Nitrogen 22 MG/DL (7-18) 23 MG/DL (7-18) 21 MG/DL (7-18) Creatinine 0.56 MG/DL 0.55 MG/DL 0.51 MG/DL (0.50-1.00) (0.50-1.00) (0.50-1.00) Estimat Glomerular Filtration 109 ML/MIN 112 ML/MIN 122 ML/MIN Rate (>89) (>89) (>89) Random Glucose 83 MG/DL 95 MG/DL 108 MG/DL (74-106) (74-106) (74-106) Calcium Level 8.6 MG/DL 8.5 MG/DL 8.6 MG/DL (8.5-10.1) (8.5-10.1) (8.5-10.1) Phosphorus Level 3.2 MG/DL (2.5-4.9) Magnesium Level 2.1 MG/DL (1.5-2.5) Total Bilirubin 0.5 MG/DL 0.6 MG/DL (0.2-1.0) (0.2-1.0) Aspartate Amino Transf 38 U/L (15-37) 44 U/L (15-37) (AST/SGOT) Alanine Aminotransferase 46 U/L (10-53) 43 U/L (10-53) (ALT/SGPT) Alkaline Phosphatase 127 U/L 128 U/L (45-117) (45-117) Total Protein 6.4 GM/DL 6.4 GM/DL (6.4-8.2) (6.4-8.2) Albumin 2.1 GM/DL 2.2 GM/DL (3.4-5.0) (3.4-5.0) Direct Bilirubin 0.2 MG/DL (0.0-0.2) Indirect Bilirubin 0.4 MG/DL (0.0-0.8) Result Diagram: 11/25/1618 11/25/1618 Imaging Last Impressions Chest X-Ray 11/22/16 0000 Signed Impressions: Service Date/Time: Tuesday, November 22, 2016 08:00 - CONCLUSION: 1. Worsening pulmonary vascular congestion which is now moderate in degree. 2. Small bilateral pleural effusions. 3. Stable cardiomegaly. 4. Endotracheal tube and nasogastric tube remain in good positions. Roderick Christopher MD Brain MRI 11/18/16 0825 Signed Impressions: Service Date/Time: November 18:14 - CONCLUSION: Large evolving bifrontal infarctions Nghia Pacheco MD Assessment and Plan Disease Oriented Problem List: (1) CVA (cerebral vascular accident) (2) Moyamoya disease (3) Seizure Comment: On Keppra . (4) Generalized weakness Symptom Scale: (1) Seizure 0-10 Scale: 0 (2) Generalized weakness 0-10 Scale: Unable to quantify (3) Dyspnea 0-10 Scale: Unable to quantify Comment: On mechanical ventilation Pertinent Non-Medical Issues Psychosocial: Single. Has 2 daughters and one son. Spiritual: unknown. Legal: Ethical issues impacting care: No known concerns at this time. . Important Contacts * Maria Del Carmen Rivas, daughter: [phone] * Marcelo Rivas, daughter: [phone] * Dwight Rivas, son: [phone] . Prognosis MRI/EEG reviewed by neurology, prognosis felt to be poor, infarct noted to be huge. Patient may wake some in 6 months. Given extent of infarct, I would not expect patient to regain significant functional or cognitive status. Code Status: Full Code Plan * Patient is incapacitated to make healthcare decisions. No known written advanced directives. According to [place] Statutes, health care proxy decision making falls to majority of adult children. Patient has 2 daughters (Marcelo Joyce) and 1 son (Dwight). * CODE STATUSFULL CODE * GOALS: prev met with 2/3 family members. Goals have been aggressive, they verbalized they want to cont all available treatments to give pt more time for possible recovery. Attempted to reach dtr to provide update today 11/25, VM left. * SYMPTOMS: Seizure: currently controlled on Keppra. No reported seizures. Weakness: due to prolonged hospital course, bilateral infarcts. Not regaining any purposeful or spontaneous movements as of yet. Dyspnea: remains on mech vent. Off sedation tolerating CPAP. No signs of tachypnea now, will continue to monitor. Encephalopathy: minimally responsive at this time off sedation. Will monitor. Constipation: resolved. Last BM 11/23 * Palliative care will continue to follow during hospital course as condition evolves, to assist patient/decision-maker with understanding of medical conditions, weighing benefits/burdens of treatment options, for clarification of goals of treatment. Additionally will assist with any symptoms of palliative concern. . Attestation To help prompt me to consider important information that might be impacting today's encounter and assessment, information from prior notes written by myself or my colleagues may have been "brought forward" into today's note. My signature on this note, however, is an attestation that I personally performed the exam, history, and/or decision-making noted today, and, unless otherwise indicated, the interactions with patient, family, and staff as well as the review of records all occurred today. I also attest that the listed assessment and stated plan reflect my best clinical judgment today based on the combination of historical information, prior notes, and today's exam/ interactions. When time spent is documented, it refers only to time spent today by the signer, or if indicated, combined time spent today by collaborating physician/nurse practitioner. Yuridia Almeida Nov 25, 2016 12:21
[2016-11-25 14:28] LABS: BACTERIA, URINE MOD /hpf; BLOOD, URINE NEG (NEG); COMMENT (UR) CULTURE INDICATED; CULTURE IF INDICATED CULTURE INDICATED; GLUCOSE,URINE NEG (NEG); HYALINE CAST, URINE 4 /lpf (RARE); KETONE, URINE 10 mg/dL (NEG); MUCUS URINE FEW /lpf (OCC); NITRITE,URINE NEG (NEG); PH, URINE 5.5 (5.0-8.5); SQUAMOUS EPITHELIAL CELL URINE 1 /hpf (0-5); URINE COLOR YELLOW (YELLW/STRAW)
--- NOTE | 2016-11-25 22:56 | HHI.PR ---
Subjective Subjective Notes No issues overnight Objective Vitals/I&O Vital Signs Date Time Temp Pulse Resp B/P Pulse Ox O2 Delivery O2 Flow Rate FiO2 11/25/16 22:00 89 11/25/16 20:00 35 11/25/16 20:00 98.1 19 156/78 97 Labs Laboratory Tests Test 11/25/16 11/25/16 06:18 13:15 White Blood Count 9.1 Red Blood Count 3.33 Hemoglobin 9.3 Hematocrit 27.8 Mean Corpuscular Volume 83.6 Mean Corpuscular Hemoglobin 28.1 Mean Corpuscular Hemoglobin 33.6 Concent Red Cell Distribution Width 13.8 Platelet Count 394 Mean Platelet Volume 8.1 Neutrophils (%) (Auto) 88.0 Lymphocytes (%) (Auto) 5.7 Monocytes (%) (Auto) 4.4 Eosinophils (%) (Auto) 1.5 Basophils (%) (Auto) 0.4 Neutrophils # (Auto) 8.0 Lymphocytes # (Auto) 0.5 Monocytes # (Auto) 0.4 Eosinophils # (Auto) 0.1 Basophils # (Auto) 0.0 CBC Comment DIFF FINAL Differential Comment Sodium Level 140 Potassium Level 3.9 Chloride Level 102 Carbon Dioxide Level 30.1 Anion Gap 8 Blood Urea Nitrogen 21 Creatinine 0.51 Estimat Glomerular Filtration 122 Rate Random Glucose 108 Calcium Level 8.6 Total Bilirubin 0.6 Direct Bilirubin 0.2 Indirect Bilirubin 0.4 Aspartate Amino Transf 44 (AST/SGOT) Alanine Aminotransferase 43 (ALT/SGPT) Alkaline Phosphatase 128 Total Protein 6.4 Albumin 2.2 Urine Color YELLOW Urine Turbidity CLEAR Urine pH 5.5 Urine Specific Ramona 1.018 Urine Protein NEG Urine Glucose (UA) NEG Urine Ketones 10 Urine Occult Blood NEG Urine Nitrite NEG Urine Bilirubin NEG Urine Urobilinogen 4.0 Urine Leukocyte Esterase MOD Urine RBC 3 Urine WBC 27 Urine Squamous Epithelial 1 Cells Urine Bacteria MOD Urine Hyaline Casts 4 Urine Mucus FEW Microscopic Urinalysis Comment CULTURE INDICATED Date/Time Procedure Status Source Growth 11/25/16 13:15 Urine Culture Received Urine Catheterized Urine Pending 11/25/16 13:15 Gram Stain Received Sputum Endotracheal Pending 11/25/16 13:15 Sputum Culture Received Sputum Endotracheal Pending Narrative Exam Trach site with no new drainage Good lung volumes A/P Assessment and Plan POD #1 perc trach Doing well Plan: Will sign off and see as needed. Lenny Aleman MD Nov 25, 2016 22:56
[2016-11-26] VITALS (17 sets, daily range): BP systolic 125–167; BP diastolic 59–83; PULSE 80–99; RESP 16–19; TEMP 98.1–100.5; O2SAT 94–100
[2016-11-26] MEDS: INSULIN NovoLIN REGULAR SUPPLEMENTAL SCALE SQ SCH ×4 (02:00→20:00)
[2016-11-26] MEDS: RESP: ALBUTEROL 2.5 MG/IPRATROPIUM 0.5 MG NEB (SCH) NEB ×2 (03:01→07:49)
[2016-11-26] MEDS: ONDANSETRON HCL 4 MG/2 ML VIAL IV PRN (03:20)
[2016-11-26] MEDS: CHLORHEXIDINE GLUCONATE 2 % 1 PACK (2 CLOTHS) TOP SCH (04:00)
[2016-11-26 06:48] LABS: AUTOMATED NEUTROPHIL # 9.6 TH/MM3 (1.8-7.7); BASOPHIL # 0.1 TH/MM3 (0-0.2); BASOPHIL % 0.8 % (0.0-2.0); HEMATOCRIT 28.7 % (35.0-46.0); HEMO FLAGS DIFF FINAL; LYMPH % 5.5 % (9.0-44.0); LYMPHOCYTE # 0.6 TH/MM3 (1.0-4.8); MEAN CELL VOLUME 83.4 FL (80.0-100.0); MEAN CORPUSCULAR HEMOGLOBIN 28.1 PG (27.0-34.0); MEAN CORPUSCULAR HGB CONC 33.8 % (32.0-36.0); MONO % 4.9 % (0.0-8.0); NEUT % 88.8 % (16.0-70.0); PLATELET COUNT 443 TH/MM3 (150-450); RED BLOOD COUNT 3.44 MIL/MM3 (4.00-5.30); RED CELL DISTRIBUTION WIDTH 14.1 % (11.6-17.2); WHITE BLOOD COUNT 10.9 TH/MM3 (4.0-11.0)
[2016-11-26 07:04] LABS: POTASSIUM 3.6 MEQ/L (3.5-5.1)
[2016-11-26] MEDS: ASPIRIN 81 MG CHEW TAB NG SCH (08:00)
[2016-11-26] MEDS: FOLIC ACID 1 MG TAB OG-TUBE SCH (08:01)
[2016-11-26] MEDS: BROMOCRIPTINE MESYLATE 2.5 MG TAB OG-TUBE SCH ×2 (08:01→21:39)
[2016-11-26] MEDS: POLYETHYLENE GLYCOL 17 GM PKG PO SCH (08:02)
[2016-11-26] MEDS: BUMETANIDE INJ 1 MG/4 ML VIAL IV PUSH SCH (08:02)
[2016-11-26] MEDS: PANTOPRAZOLE SODIUM 40 MG VIAL IV SCH (08:02)
[2016-11-26] MEDS: DOCUSATE SODIUM 100 MG/10 ML UDC PO SCH ×2 (08:03→21:39)
[2016-11-26] MEDS: SENNOSIDES SYRUP 8.8 MG/5 ML CUP PO SCH ×2 (08:03→21:39)
[2016-11-26] MEDS: levETIRAcetam INJ 500 MG in SODIUM CHLORIDE 0.9% INJ 100 ML IV SCH ×2 (08:03→21:38)
[2016-11-26] MEDS: levETIRAcetam 1000 MG INJ 100 ML IV SCH ×2 (08:03→21:39)
[2016-11-26] MEDS: CHLORHEXIDINE 0.12% (ORAL KIT) 15 ML CUP MT SCH ×2 (08:04→20:00)
--- NOTE | 2016-11-26 08:21 | HHI.PR ---
Subjective Remarks no change Objective Vital Signs Date Time Temp Pulse Resp B/P Pulse Ox O2 Delivery O2 Flow Rate FiO2 11/26/16 07:51 35 11/26/16 07:51 99 35 11/26/16 06:00 85 11/26/16 04:04 100 35 11/26/16 04:00 80 11/26/16 04:00 98.7 80 16 136/62 100 11/26/16 04:00 35 11/26/16 02:00 92 11/26/16 00:05 100 35 11/26/16 00:00 35 11/26/16 00:00 98.1 88 18 167/80 100 11/26/16 00:00 84 11/25/16 22:00 89 11/25/16 20:00 35 11/25/16 20:00 98.1 85 19 156/78 97 11/25/16 20:00 85 11/25/16 19:46 95 35 11/25/16 18:00 83 11/25/16 16:08 95 35 11/25/16 16:00 84 11/25/16 16:00 98.7 90 20 158/80 95 11/25/16 16:00 35 11/25/16 14:00 83 11/25/16 12:00 35 11/25/16 12:00 80 11/25/16 12:00 98.5 76 15 143/70 98 11/25/16 11:25 100 35 11/25/16 10:00 78 11/25/16 09:10 99 35 11/25/16 09:10 35 I/O 11/25/16 11/25/16 11/25/16 11/26/16 11/26/16 11/26/16 07:00 15:00 23:00 07:00 15:00 23:00 Intake Total 315 ml 175 ml 490 ml 304 ml Output Total 250 ml 1350 ml 250 ml 250 ml Balance 65 ml -1175 ml 240 ml 54 ml IV Total 100 ml 0 ml Tube Feeding 255 ml 115 ml 290 ml 304 ml Tube Irrigant 60 ml Other 60 ml 100 ml Output Urine Total 250 ml 1350 ml 250 ml 250 ml # Bowel Movements 0 0 0 0 Result Diagram: 11/26/1660111/26/16601 Objective Remarks not following commands pupils = does moves eyes around a little no rxt threat no command following Assessment and Plan Assessment and Plan imp huge r frontal cva and inc size left frontal cva may eventually awaken in next 6 months eeg some left sharps stay on keppra no anticoag now due to size of cva px overall not great no change this week Terrence Flores MD Nov 26, 2016 08:21
[2016-11-26] MEDS: SODIUM CHLORIDE 0.9% FLUSH 10 ML FLUSH IV FLUSH SCH ×2 (08:25→21:40)
--- NOTE | 2016-11-26 09:07 | HHI.CCPN ---
Subjective Remarks/Hospital Course 65-year-old female with past medical history of stroke for which she at one point was on warfarin but had been discontinued. She was was admitted to [facility] emergency department 11/04/16 with difficulty getting her thoughts together. She was found to have multifocal nonhemorrhagic infarcts in left frontal and parietal regions, right frontal lobe and history of moyamoya disease. She was initially awake and following commands with weakness of RLE and some aphasia. She was transferred to [facility] where he had an cerebral angiogram consistent with moyamoya. There were plans to perform extracranial/intracranial bypass. However she had a seizure and ended up being intubated for status either 11/09 or 11/10.. She was found to have a new right frontal infarct area and she was started on Dilantin and Keppra and it was felt that she would not be a candidate for intervention. She has been intubated 9-10 days and apparently she has been tolerating C Pap trials to some extent but mental status prevents extubation. Treating team was discussing with family trach/PEG. Apparently family requested transfer back to [place] because they live locally here and wanted her closer to home. Apparently she had been sedated initially with propofol but then was on Precedex from 11/12-11/14. Appears she has been off all continuous sedation since 11/14. Subjective 11/19 No acute events overnight. Palliative care has been consult at family meeting is scheduled for today. After family meeting will will discuss placement of tracheostomy and/or and PEG, based on family's wishes. 11/20: Afebrile .No change in neurological status. Consult placed for tracheostomy and PEG placement as requested by family yesterday. 11/21: Afebrile. Tracheostomy plan for some time next week with general surgery , will try to coordinate with GI for PEG placement. 11/22 No acute events overnight. FOr PEG tube placement today. Afebrile. On no sedation. 11/23 Patient remains intubated on no sedation s/p PEG tube placement yesterday for trach today. Afebrile. 11/24 No acute events overnight. For trach today. Afebrile. 11/25 Patient s/p trach yesterday had an episode of emesis overnight and tube feeds placed on hold. Afebrile. 11/26 Patient is on ventilator via trach tolerated tube feeds during day however she had another episdoe of emesis overnight and tube feeds placed on hold. Objective Vital Signs Date Time Temp Pulse Resp B/P Pulse Ox O2 Delivery O2 Flow Rate FiO2 11/26/16 08:00 99.1 95 18 157/78 99 11/26/16 08:00 35 Intake and Output 11/25/16 11/25/16 11/26/16 08:00 16:00 00:00 Intake Total 315 ml 175 ml 490 ml Output Total 250 ml 1350 ml 250 ml Balance 65 ml -1175 ml 240 ml Result Diagram: 11/26/16 0602 11/26/16 0602 Other Results Laboratory Tests Test 11/25/16 11/26/16 13:15 06:02 Urine Color YELLOW Urine Turbidity CLEAR Urine pH 5.5 Urine Specific Crozier 1.018 Urine Protein NEG mg/dL Urine Glucose (UA) NEG mg/dL Urine Ketones 10 mg/dL Urine Occult Blood NEG Urine Nitrite NEG Urine Bilirubin NEG Urine Urobilinogen 4.0 MG/DL Urine Leukocyte Esterase MOD Urine RBC 3 /hpf Urine WBC 27 /hpf Urine Squamous Epithelial 1 /hpf Cells Urine Bacteria MOD /hpf Urine Hyaline Casts 4 /lpf Urine Mucus FEW /lpf Microscopic Urinalysis Comment CULTURE INDICATED White Blood Count 10.9 TH/MM3 Red Blood Count 3.44 MIL/MM3 Hemoglobin 9.7 GM/DL Hematocrit 28.7 % Mean Corpuscular Volume 83.4 FL Mean Corpuscular Hemoglobin 28.1 PG Mean Corpuscular Hemoglobin 33.8 % Concent Red Cell Distribution Width 14.1 % Platelet Count 443 TH/MM3 Mean Platelet Volume 9.1 FL Neutrophils (%) (Auto) 88.8 % Lymphocytes (%) (Auto) 5.5 % Monocytes (%) (Auto) 4.9 % Eosinophils (%) (Auto) 0.0 % Basophils (%) (Auto) 0.8 % Neutrophils # (Auto) 9.6 TH/MM3 Lymphocytes # (Auto) 0.6 TH/MM3 Monocytes # (Auto) 0.5 TH/MM3 Eosinophils # (Auto) 0.0 TH/MM3 Basophils # (Auto) 0.1 TH/MM3 CBC Comment DIFF FINAL Differential Comment Sodium Level 140 MEQ/L Potassium Level 3.6 MEQ/L Chloride Level 101 MEQ/L Carbon Dioxide Level 30.0 MEQ/L Anion Gap 9 MEQ/L Blood Urea Nitrogen 17 MG/DL Creatinine 0.49 MG/DL Estimat Glomerular Filtration 128 ML/MIN Rate Random Glucose 124 MG/DL Calcium Level 8.7 MG/DL Imaging Last Impressions Chest X-Ray 11/22/16 0000 Signed Impressions: Service Date/Time: Tuesday, November 22, 2016 08:00 - CONCLUSION: 1. Worsening pulmonary vascular congestion which is now moderate in degree. 2. Small bilateral pleural effusions. 3. Stable cardiomegaly. 4. Endotracheal tube and nasogastric tube remain in good positions. Roderick Christopher MD Brain MRI 11/18/16 0825 Signed Impressions: Service Date/Time: November 18:14 - CONCLUSION: Large evolving bifrontal infarctions Nghia Pacheco MD Objective Remarks GENERAL: Patient is 65 yo intubated SKIN: Warm and dry. HEAD: Normocephalic. EYES: No scleral icterus. No injection or drainage. NECK: Supple, trachea midline. No JVD or lymphadenopathy. Trach in place CARDIOVASCULAR: Regular rate and rhythm without murmurs, gallops, or rubs. RESPIRATORY: Breath sounds equal bilaterally. No accessory muscle use. GASTROINTESTINAL: Abdomen soft, non-tender, nondistended. PEG tube in place MUSCULOSKELETAL: No cyanosis, or edema. Neuro: Intubated, unresponsive and does not follow commands. Date of Insertion: Nov 19, 2016 A/P Assessment and Plan NEURO: Bifrontal strokes Moyamoya Seizures Keppra 1500 mg IV twice a day Continue ASA Continue bromocriptine 2.5 mg by mouth twice a day Continue atorvastatin 40 mg by mouth daily EEG-noted sharp spikes Neurology is following Has been evaluated tertiary care center and felt to not be a candidate for further intervention. RESP: Respiratory failure COPD Continue with vent support keep sat >92% Bronchodilators, ICU vent bundle. SBT trials as nikolas s/p trach 11/24. Pulm toilet, trach care CV: Coronary artery disease with prior myocardial infarction Hypertension Monitor HR and BP keep MAP>65mmHg. Continue with ASA, statin on hold for increase LFT GI: Dysphagia s/p PEG tube placement 11/22 Resume TF(Jevity 1.5 with goal rate 60 mL per hour) monitor for residuals On Protonix 40mg IV daily for GI prophylaxis Monitor LFT's. US liver: Cholelithiasis Check KUB abdomen r/o ileus Bowel regimen with Colace, Senna , Marcela lax, add Lactulose. : Monitor renal function, I/O's, electrolytes replacement per protocol. On Bumex 1mg daily. ID: Add Rocephin for UTI. Monitor for signs and symptoms of infection. s/p Unasyn course for aspiration pneumonia Follow up on sputum and urine cxs. HEME: Monitor CBC ENDO: Euglycemic PROPH: Hold DVT prophylaxis per neurology secondary to bilateral CVAs. Protonix 40 mg IV daily for stress ulcer prophylaxis. ACCESS: Peripheral IV providing adequate access at this time. Palliative care medicine is following Level 3 Missael Oneill MD Nov 26, 2016 09:07
[2016-11-26] MEDS ORDERED: cefTRIAXone INJ 1,000 MG in SODIUM CHLORIDE 0.9% INJ 100 ML IV SCH (10:00)
--- NOTE | 2016-11-26 10:17 | RADRPT ---
EXAM DATE/TIME: 11/26/2016 10:18 [facility] COMPARISON: No previous studies available for comparison. INDICATIONS : Evaluate for ileus. MEDICAL HISTORY : Hypertension. Chronic obstructive pulmonary disease. Cardiovascular disease. Large evolving bifro ntal infarctions SURGICAL HISTORY : None. ENCOUNTER: Subsequent ACUITY: 4 - 6 days PAIN SCORE: Non-responsive. LOCATION: Abdomen. FINDINGS: The bowel gas is nonspecific. There are no signs of obstruction or free air for technique. No defini te calcified stones are identified for technique. The stomach is distended with air measuring almost 27.4 cm in size. G-tube is in place. CONCLUSION: Distended stomach otherwise nonspecific abdomen. Jackson Murillo MD on November 26, 2016 at 10:13 Board Certified Radiologist. This report was verified electronically.
[2016-11-26] MEDS: LACTULOSE SYRUP 20 GM/30 ML CUP PO SCH ×2 (10:29→21:38)
[2016-11-27] VITALS (19 sets, daily range): BP systolic 121–136; BP diastolic 72–88; PULSE 69–95; RESP 14–20; TEMP 99–101.3; O2SAT 94–100
[2016-11-27] MEDS: INSULIN NovoLIN REGULAR SUPPLEMENTAL SCALE SQ SCH ×4 (02:00→20:00)
[2016-11-27] MEDS ORDERED: VANCOMYCIN INJ 1,000 MG in SODIUM CHLOR 0.9% 250 ML INJ 250 ML IV ONE (03:45)
[2016-11-27] MEDS ORDERED: Vancomycin Consult Pharmacy 1 EA OTHER SCH (03:45)
[2016-11-27] MEDS: CHLORHEXIDINE GLUCONATE 2 % 1 PACK (2 CLOTHS) TOP SCH (04:00)
[2016-11-27] MEDS: ACETAMINOPHEN 325 MG TAB PO PRN (04:01)
[2016-11-27] MEDS: PIPERACIL-TAZO 4.5 GM PREMIX 100 ML IV SCH ×4 (04:01→21:43)
[2016-11-27] MEDS ORDERED: GELATIN 12 MM/7 MM FOAM ONE ×2 (04:08→05:38)
[2016-11-27] MEDS ORDERED: VANCOMYCIN 1,500 MG/NS 500 ML IV ONE ×2 (05:00)
[2016-11-27 05:53] LABS: AUTOMATED NEUTROPHIL # 8.9 TH/MM3 (1.8-7.7); BASOPHIL # 0.1 TH/MM3 (0-0.2); BASOPHIL % 0.5 % (0.0-2.0); EOSINOPHIL # 0.1 TH/MM3 (0-0.4); EOSINOPHIL % 0.9 % (0.0-4.0); HEMATOCRIT 26.7 % (35.0-46.0); HEMO FLAGS DIFF FINAL; LYMPH % 7.4 % (9.0-44.0); LYMPHOCYTE # 0.8 TH/MM3 (1.0-4.8); MEAN CELL VOLUME 84.6 FL (80.0-100.0); MEAN CORPUSCULAR HEMOGLOBIN 28.5 PG (27.0-34.0); MEAN CORPUSCULAR HGB CONC 33.7 % (32.0-36.0); MONO % 4.8 % (0.0-8.0); NEUT % 86.4 % (16.0-70.0); PLATELET COUNT 404 TH/MM3 (150-450); RED BLOOD COUNT 3.16 MIL/MM3 (4.00-5.30); RED CELL DISTRIBUTION WIDTH 14.3 % (11.6-17.2); WHITE BLOOD COUNT 10.3 TH/MM3 (4.0-11.0)
[2016-11-27 06:25] LABS: BICARBONATE 31.5 MEQ/L (21.0-32.0)
[2016-11-27] MEDS: LACTULOSE SYRUP 20 GM/30 ML CUP PO SCH ×2 (07:53→20:08)
[2016-11-27] MEDS: POLYETHYLENE GLYCOL 17 GM PKG PO SCH (07:53)
[2016-11-27] MEDS: DOCUSATE SODIUM 100 MG/10 ML UDC PO SCH ×2 (07:53→20:08)
[2016-11-27] MEDS: BROMOCRIPTINE MESYLATE 2.5 MG TAB OG-TUBE SCH ×2 (07:53→20:08)
[2016-11-27] MEDS: FOLIC ACID 1 MG TAB OG-TUBE SCH (07:53)
[2016-11-27] MEDS: BUMETANIDE INJ 1 MG/4 ML VIAL IV PUSH SCH (07:54)
[2016-11-27] MEDS: PANTOPRAZOLE SODIUM 40 MG VIAL IV SCH (07:54)
[2016-11-27] MEDS: SENNOSIDES SYRUP 8.8 MG/5 ML CUP PO SCH ×2 (07:54→20:08)
[2016-11-27] MEDS: SODIUM CHLORIDE 0.9% FLUSH 10 ML FLUSH IV FLUSH SCH ×2 (07:55→20:09)
[2016-11-27] MEDS: levETIRAcetam 1000 MG INJ 100 ML IV SCH ×2 (07:55→20:08)
[2016-11-27] MEDS: POTASSIUM CHLOR 20 MEQ PREMIX 100 ML IV PRN ×4 (07:55→14:13)
[2016-11-27] MEDS: levETIRAcetam INJ 500 MG in SODIUM CHLORIDE 0.9% INJ 100 ML IV SCH ×2 (07:55→20:09)
[2016-11-27] MEDS: CHLORHEXIDINE 0.12% (ORAL KIT) 15 ML CUP MT SCH ×2 (07:56→20:00)
[2016-11-27] MEDS: ASPIRIN 81 MG CHEW TAB NG SCH (07:56)
--- NOTE | 2016-11-27 08:15 | HHI.CCPN ---
Subjective Remarks/Hospital Course 65-year-old female with past medical history of stroke for which she at one point was on warfarin but had been discontinued. She was was admitted to [facility] emergency department 11/04/16 with difficulty getting her thoughts together. She was found to have multifocal nonhemorrhagic infarcts in left frontal and parietal regions, right frontal lobe and history of moyamoya disease. She was initially awake and following commands with weakness of RLE and some aphasia. She was transferred to [facility] where he had an cerebral angiogram consistent with moyamoya. There were plans to perform extracranial/intracranial bypass. However she had a seizure and ended up being intubated for status either 11/09 or 11/10.. She was found to have a new right frontal infarct area and she was started on Dilantin and Keppra and it was felt that she would not be a candidate for intervention. She has been intubated 9-10 days and apparently she has been tolerating C Pap trials to some extent but mental status prevents extubation. Treating team was discussing with family trach/PEG. Apparently family requested transfer back to [place] because they live locally here and wanted her closer to home. Apparently she had been sedated initially with propofol but then was on Precedex from 11/12-11/14. Appears she has been off all continuous sedation since 11/14. Subjective 11/19 No acute events overnight. Palliative care has been consult at family meeting is scheduled for today. After family meeting will will discuss placement of tracheostomy and/or and PEG, based on family's wishes. 11/20: Afebrile .No change in neurological status. Consult placed for tracheostomy and PEG placement as requested by family yesterday. 11/21: Afebrile. Tracheostomy plan for some time next week with general surgery , will try to coordinate with GI for PEG placement. 11/22 No acute events overnight. FOr PEG tube placement today. Afebrile. On no sedation. 11/23 Patient remains intubated on no sedation s/p PEG tube placement yesterday for trach today. Afebrile. 11/24 No acute events overnight. For trach today. Afebrile. 11/25 Patient s/p trach yesterday had an episode of emesis overnight and tube feeds placed on hold. Afebrile. 11/26 Patient is on ventilator via trach tolerated tube feeds during day however she had another episode of emesis overnight and tube feeds placed on hold. 11/27 Patient noted to have bloody secretions with suctioning and around trach site. Spiked fever with : 101.3 at 3am. Tolerated CPAP x 4 hrs and TP 2.5 hrs yesterday. Objective Vital Signs Date Time Temp Pulse Resp B/P Pulse Ox O2 Delivery O2 Flow Rate FiO2 11/27/16 06:00 83 11/27/16 04:14 94 35 11/27/16 04:00 99.3 19 136/77 11/26/16 20:00 Mechanical Ventilator Intake and Output 11/26/16 11/26/16 11/27/16 08:00 16:00 00:00 Intake Total 304 ml 380 ml 497 ml Output Total 250 ml 1100 ml 200 ml Balance 54 ml -720 ml 297 ml Result Diagram: 11/27/16 0516 11/27/16 0516 Other Results Laboratory Tests Test 11/27/16 05:16 White Blood Count 10.3 TH/MM3 Red Blood Count 3.16 MIL/MM3 Hemoglobin 9.0 GM/DL Hematocrit 26.7 % Mean Corpuscular Volume 84.6 FL Mean Corpuscular Hemoglobin 28.5 PG Mean Corpuscular Hemoglobin 33.7 % Concent Red Cell Distribution Width 14.3 % Platelet Count 404 TH/MM3 Mean Platelet Volume 8.7 FL Neutrophils (%) (Auto) 86.4 % Lymphocytes (%) (Auto) 7.4 % Monocytes (%) (Auto) 4.8 % Eosinophils (%) (Auto) 0.9 % Basophils (%) (Auto) 0.5 % Neutrophils # (Auto) 8.9 TH/MM3 Lymphocytes # (Auto) 0.8 TH/MM3 Monocytes # (Auto) 0.5 TH/MM3 Eosinophils # (Auto) 0.1 TH/MM3 Basophils # (Auto) 0.1 TH/MM3 CBC Comment DIFF FINAL Differential Comment Sodium Level 139 MEQ/L Potassium Level 3.0 MEQ/L Chloride Level 99 MEQ/L Carbon Dioxide Level 31.5 MEQ/L Anion Gap 9 MEQ/L Blood Urea Nitrogen 20 MG/DL Creatinine 0.66 MG/DL Estimat Glomerular Filtration 90 ML/MIN Rate Random Glucose 140 MG/DL Calcium Level 8.4 MG/DL Imaging Last Impressions Abdomen X-Ray 11/26/16 0000 Signed Impressions: Service Date/Time: Saturday, November 26, 2016 10:18 - CONCLUSION: Distended stomach otherwise nonspecific abdomen. K. David Murillo MD Chest X-Ray 11/22/16 0000 Signed Impressions: Service Date/Time: Tuesday, November 22, 2016 08:00 - CONCLUSION: 1. Worsening pulmonary vascular congestion which is now moderate in degree. 2. Small bilateral pleural effusions. 3. Stable cardiomegaly. 4. Endotracheal tube and nasogastric tube remain in good positions. Roderick Christopher MD Brain MRI 11/18/16 0825 Signed Impressions: Service Date/Time: November 18:14 - CONCLUSION: Large evolving bifrontal infarctions Nghia Pacheco MD Objective Remarks GENERAL: Patient is 65 yo intubated SKIN: Warm and dry. HEAD: Normocephalic. EYES: No scleral icterus. No injection or drainage. NECK: Supple, trachea midline. No JVD or lymphadenopathy. Trach in place CARDIOVASCULAR: Regular rate and rhythm without murmurs, gallops, or rubs. RESPIRATORY: Breath sounds equal bilaterally. No accessory muscle use. GASTROINTESTINAL: Abdomen soft, non-tender, nondistended. PEG tube in place MUSCULOSKELETAL: No cyanosis, or edema. Neuro: Intubated, unresponsive and does not follow commands. Date of Insertion: Nov 19, 2016 A/P Assessment and Plan NEURO: Bifrontal strokes Moyamoya Seizures Keppra 1500 mg IV twice a day Continue ASA Continue bromocriptine 2.5 mg by mouth twice a day Continue atorvastatin 40 mg by mouth daily EEG-noted sharp spikes Neurology is following Has been evaluated tertiary care center and felt to not be a candidate for further intervention. RESP: Respiratory failure COPD Continue with vent support keep sat >92% Bronchodilators, ICU vent bundle. SBT trials as nikolas s/p trach 11/24. Pulm toilet, trach care Check CXR today - patient noted to have bloody secretions around trach site and with suctioning - surgery follow up. CV: Coronary artery disease with prior myocardial infarction Hypertension Monitor HR and BP keep MAP>65mmHg. Continue with ASA, statin on hold for increase LFT GI: Dysphagia s/p PEG tube placement 11/22 Resume TF(Jevity 1.5 with goal rate 60 mL per hour) monitor for residuals On Protonix 40mg IV daily for GI prophylaxis Monitor LFT's. US liver: Cholelithiasis KUB abdomen : Distended stomach Bowel regimen with Colace, Senna , Marcela lax, Lactulose. : Monitor renal function, I/O's, electrolytes replacement per protocol. On Bumex 1mg daily. Will need K replacement today ID: [id number] Sputum cx: Staph species, GNR 11/25 Urine: GNR Continue with Zosyn, Vanco. Monitor for signs and symptoms of infection. Follow up on sputum and urine cxs. Check BC x 2 sets HEME: Monitor CBC ENDO: Euglycemic PROPH: Hold DVT prophylaxis per neurology secondary to bilateral CVAs. Protonix 40 mg IV daily for stress ulcer prophylaxis. ACCESS: Peripheral IV providing adequate access at this time. Palliative care medicine is following Level 3 Missael Oneill MD Nov 27, 2016 08:15
--- NOTE | 2016-11-27 10:05 | RADRPT ---
EXAM DATE/TIME: 11/27/2016 08:27 [place] COMPARISON: CHEST SINGLE AP, November 24, 2016, 14:13. INDICATIONS : Bloody secretions around trach site. MEDICAL HISTORY : Hypertension. Chronic obstructive pulmonary disease. Myocardial infarcti on. SURGICAL HISTORY : None. ENCOUNTER: Subsequent ACUITY: 1 day PAIN SCORE: Non-responsive. LOCATION: Bilateral chest. FINDINGS: There is a tracheostomy tube in place. The heart size is borderline enlarged. The patient does appe ar rotated towards the right. There is increased density at the left base with some silhouetting of the left hemidiaphragm. The right lung is free of focal consolidation. CONCLUSION: Left base atelectasis, consolidation and suspected effusion. Nghia Camacho MD on November 27, 2016 at 10:01 Board Certified Radiologist. This report was verified electronically.
[2016-11-27] MEDS: VANCOMYCIN INJ 1,000 MG in SODIUM CHLOR 0.9% 250 ML INJ 250 ML IV SCH (16:07)
[2016-11-28] VITALS (18 sets, daily range): BP systolic 109–141; BP diastolic 60–86; PULSE 69–86; RESP 11–22; TEMP 98.8–99.2; O2SAT 98–100
[2016-11-28] MEDS: INSULIN NovoLIN REGULAR SUPPLEMENTAL SCALE SQ SCH ×4 (02:00→20:00)
[2016-11-28] MEDS: PIPERACIL-TAZO 4.5 GM PREMIX 100 ML IV SCH ×4 (03:12→22:18)
[2016-11-28] MEDS: CHLORHEXIDINE GLUCONATE 2 % 1 PACK (2 CLOTHS) TOP SCH (04:00)
[2016-11-28] MEDS: VANCOMYCIN INJ 1,000 MG in SODIUM CHLOR 0.9% 250 ML INJ 250 ML IV SCH ×2 (04:24→16:12)
[2016-11-28 06:04] LABS: AUTOMATED NEUTROPHIL # 6.5 TH/MM3 (1.8-7.7); BASOPHIL # 0.1 TH/MM3 (0-0.2); BASOPHIL % 0.9 % (0.0-2.0); EOSINOPHIL # 0.3 TH/MM3 (0-0.4); EOSINOPHIL % 3.2 % (0.0-4.0); HEMATOCRIT 24.6 % (35.0-46.0); HEMO FLAGS DIFF FINAL; LYMPH % 12.7 % (9.0-44.0); LYMPHOCYTE # 1.1 TH/MM3 (1.0-4.8); MEAN CELL VOLUME 83.8 FL (80.0-100.0); MEAN CORPUSCULAR HGB CONC 33.4 % (32.0-36.0); MONO % 7.1 % (0.0-8.0); NEUT % 76.1 % (16.0-70.0); PLATELET COUNT 351 TH/MM3 (150-450); RED BLOOD COUNT 2.94 MIL/MM3 (4.00-5.30); RED CELL DISTRIBUTION WIDTH 14.4 % (11.6-17.2); WHITE BLOOD COUNT 8.6 TH/MM3 (4.0-11.0)
[2016-11-28 06:24] LABS: ANION GAP 9 MEQ/L (5-15); AST (GOT) 33 U/L (15-37); BICARBONATE 30.5 MEQ/L (21.0-32.0); BLOOD UREA NITROGEN 16 MG/DL (7-18); CHLORIDE 102 MEQ/L (98-107); GLOMERULAR FILTRATION RATE 109 ML/MIN (>89); MAGNESIUM 2.1 MG/DL (1.5-2.5); POTASSIUM 3.6 MEQ/L (3.5-5.1); SODIUM (NA) 141 MEQ/L (136-145)
[2016-11-28 06:26] LABS: ALKALINE PHOSPHATASE 92 U/L (45-117); ALT (GPT) 33 U/L (10-53); TOTAL BILIRUBIN ADULT 0.5 MG/DL (0.2-1.0)
--- NOTE | 2016-11-28 07:32 | HHI.CCPN ---
Subjective Remarks/Hospital Course 65-year-old female with past medical history of stroke for which she at one point was on warfarin but had been discontinued. She was was admitted to [facility] emergency department 11/04/16 with difficulty getting her thoughts together. She was found to have multifocal nonhemorrhagic infarcts in left frontal and parietal regions, right frontal lobe and history of moyamoya disease. She was initially awake and following commands with weakness of RLE and some aphasia. She was transferred to [facility] where he had an cerebral angiogram consistent with moyamoya. There were plans to perform extracranial/intracranial bypass. However she had a seizure and ended up being intubated for status either 11/09 or 11/10.. She was found to have a new right frontal infarct area and she was started on Dilantin and Keppra and it was felt that she would not be a candidate for intervention. She has been intubated 9-10 days and apparently she has been tolerating C Pap trials to some extent but mental status prevents extubation. Treating team was discussing with family trach/PEG. Apparently family requested transfer back to [place] because they live locally here and wanted her closer to home. Apparently she had been sedated initially with propofol but then was on Precedex from 11/12-11/14. Appears she has been off all continuous sedation since 11/14. Subjective 11/19 No acute events overnight. Palliative care has been consult at family meeting is scheduled for today. After family meeting will will discuss placement of tracheostomy and/or and PEG, based on family's wishes. 11/20: Afebrile .No change in neurological status. Consult placed for tracheostomy and PEG placement as requested by family yesterday. 11/21: Afebrile. Tracheostomy plan for some time next week with general surgery , will try to coordinate with GI for PEG placement. 11/22 No acute events overnight. FOr PEG tube placement today. Afebrile. On no sedation. 11/23 Patient remains intubated on no sedation s/p PEG tube placement yesterday for trach today. Afebrile. 11/24 No acute events overnight. For trach today. Afebrile. 11/25 Patient s/p trach yesterday had an episode of emesis overnight and tube feeds placed on hold. Afebrile. 11/26 Patient is on ventilator via trach tolerated tube feeds during day however she had another episode of emesis overnight and tube feeds placed on hold. 11/27 Patient noted to have bloody secretions with suctioning and around trach site. Spiked fever with : 101.3 at 3am. Tolerated CPAP x 4 hrs and TP 2.5 hrs yesterday. 11/28 No acute events overnight. Afebrile. Tolerated CPAP x 2 hrs yesterday. Bloody secretions resolved. Afebrile. Objective Vital Signs Date Time Temp Pulse Resp B/P Pulse Ox O2 Delivery O2 Flow Rate FiO2 11/28/16 06:00 69 11/28/16 04:12 99 35 11/28/16 04:00 99.2 14 111/60 11/26/16 20:00 Mechanical Ventilator Intake and Output 11/27/16 11/27/16 11/28/16 08:00 16:00 00:00 Intake Total 828 ml 898 ml 929 ml Output Total 250 ml 1475 ml 250 ml Balance 578 ml -577 ml 679 ml Result Diagram: 11/28/16 0515 11/28/16 0515 Other Results Laboratory Tests Test 11/27/16 11/28/16 20:03 05:15 Potassium Level 3.6 MEQ/L 3.6 MEQ/L White Blood Count 8.6 TH/MM3 Red Blood Count 2.94 MIL/MM3 Hemoglobin 8.2 GM/DL Hematocrit 24.6 % Mean Corpuscular Volume 83.8 FL Mean Corpuscular Hemoglobin 28.0 PG Mean Corpuscular Hemoglobin 33.4 % Concent Red Cell Distribution Width 14.4 % Platelet Count 351 TH/MM3 Mean Platelet Volume 8.7 FL Neutrophils (%) (Auto) 76.1 % Lymphocytes (%) (Auto) 12.7 % Monocytes (%) (Auto) 7.1 % Eosinophils (%) (Auto) 3.2 % Basophils (%) (Auto) 0.9 % Neutrophils # (Auto) 6.5 TH/MM3 Lymphocytes # (Auto) 1.1 TH/MM3 Monocytes # (Auto) 0.6 TH/MM3 Eosinophils # (Auto) 0.3 TH/MM3 Basophils # (Auto) 0.1 TH/MM3 CBC Comment DIFF FINAL Differential Comment Sodium Level 141 MEQ/L Chloride Level 102 MEQ/L Carbon Dioxide Level 30.5 MEQ/L Anion Gap 9 MEQ/L Blood Urea Nitrogen 16 MG/DL Creatinine 0.56 MG/DL Estimat Glomerular Filtration 109 ML/MIN Rate Random Glucose 112 MG/DL Calcium Level 8.4 MG/DL Phosphorus Level 2.6 MG/DL Magnesium Level 2.1 MG/DL Total Bilirubin 0.5 MG/DL Aspartate Amino Transf 33 U/L (AST/SGOT) Alanine Aminotransferase 33 U/L (ALT/SGPT) Alkaline Phosphatase 92 U/L Total Protein 5.8 GM/DL Albumin 2.1 GM/DL Imaging Last Impressions Chest X-Ray 11/27/16 0000 Signed Impressions: Service Date/Time: Sunday, November 27, 2016 08:27 - CONCLUSION: Left base atelectasis, consolidation and suspected effusion. Nghia Camacho MD Abdomen X-Ray 11/26/16 0000 Signed Impressions: Service Date/Time: Saturday, November 26, 2016 10:18 - CONCLUSION: Distended stomach otherwise nonspecific abdomen. Jackson Murillo MD Brain MRI 11/18/16 0825 Signed Impressions: Service Date/Time: November 18:14 - CONCLUSION: Large evolving bifrontal infarctions Nghia Pacheco MD Objective Remarks GENERAL: Patient is 65 yo intubated SKIN: Warm and dry. HEAD: Normocephalic. EYES: No scleral icterus. No injection or drainage. NECK: Supple, trachea midline. No JVD or lymphadenopathy. Trach in place CARDIOVASCULAR: Regular rate and rhythm without murmurs, gallops, or rubs. RESPIRATORY: Breath sounds equal bilaterally. No accessory muscle use. GASTROINTESTINAL: Abdomen soft, non-tender, nondistended. PEG tube in place MUSCULOSKELETAL: No cyanosis, or edema. Neuro: Intubated, unresponsive and does not follow commands. Date of Insertion: Nov 19, 2016 A/P Assessment and Plan NEURO: Bifrontal strokes Moyamoya Seizures Keppra 1500 mg IV twice a day Continue ASA Continue bromocriptine 2.5 mg by mouth twice a day Continue atorvastatin 40 mg by mouth daily EEG-noted sharp spikes Neurology is following Has been evaluated tertiary care center and felt to not be a candidate for further intervention. RESP: Respiratory failure COPD Continue with vent support keep sat >92% Bronchodilators, ICU vent bundle. SBT trials as nikolas s/p trach 11/24. Pulm toilet, trach care CXR 11/27 Left base atelectasis vs consolidation CV: Coronary artery disease with prior myocardial infarction Hypertension Monitor HR and BP keep MAP>65mmHg. Continue with ASA, resume statin ( elevated LFT resolved) GI: Dysphagia s/p PEG tube placement 11/22 Continue TF(Jevity 1.5 with goal rate 60 mL per hour) monitor for residuals On Protonix 40mg IV daily for GI prophylaxis Monitor LFT's. US liver: Cholelithiasis KUB abdomen : Distended stomach Bowel regimen with Colace, Senna , Marcela lax, Lactulose. : Monitor renal function, I/O's, electrolytes replacement per protocol. On Bumex 1mg daily. ID: 11/[id number] Sputum cx: Staph species, Kleb pneumonia 11/25 Urine: Kleb pneumonia Continue with Zosyn, Vanco. Monitor for signs and symptoms of infection. Follow up on BC from 11/27 HEME: Monitor CBC ENDO: Euglycemic PROPH: Hold DVT prophylaxis per neurology secondary to bilateral CVAs. Protonix 40 mg IV daily for stress ulcer prophylaxis. ACCESS: Peripheral IV providing adequate access at this time. Palliative care medicine is following Level 3 Missael Oneill MD Nov 28, 2016 07:32
[2016-11-28] MEDS: CHLORHEXIDINE 0.12% (ORAL KIT) 15 ML CUP MT SCH ×2 (07:51→20:00)
[2016-11-28] MEDS: levETIRAcetam 1000 MG INJ 100 ML IV SCH ×2 (08:49→20:57)
[2016-11-28] MEDS: SODIUM CHLORIDE 0.9% FLUSH 10 ML FLUSH IV FLUSH SCH ×2 (08:49→20:57)
[2016-11-28] MEDS: BUMETANIDE INJ 1 MG/4 ML VIAL IV PUSH SCH (08:49)
[2016-11-28] MEDS: PANTOPRAZOLE SODIUM 40 MG VIAL IV SCH (08:49)
[2016-11-28] MEDS: DOCUSATE SODIUM 100 MG/10 ML UDC PO SCH ×2 (08:50→20:56)
[2016-11-28] MEDS: SENNOSIDES SYRUP 8.8 MG/5 ML CUP PO SCH ×2 (08:50→20:56)
[2016-11-28] MEDS: levETIRAcetam INJ 500 MG in SODIUM CHLORIDE 0.9% INJ 100 ML IV SCH ×2 (08:50→20:57)
[2016-11-28] MEDS: POLYETHYLENE GLYCOL 17 GM PKG PO SCH (08:50)
[2016-11-28] MEDS: LACTULOSE SYRUP 20 GM/30 ML CUP PO SCH ×2 (08:50→20:57)
[2016-11-28] MEDS: ASPIRIN 81 MG CHEW TAB NG SCH (08:51)
[2016-11-28] MEDS: FOLIC ACID 1 MG TAB OG-TUBE SCH (08:51)
[2016-11-28] MEDS: BROMOCRIPTINE MESYLATE 2.5 MG TAB OG-TUBE SCH ×2 (08:51→20:57)
[2016-11-28] MEDS ORDERED: PHARMACY ORDERED LAB ONE (15:45)
[2016-11-29] VITALS (18 sets, daily range): BP systolic 106–139; BP diastolic 56–98; PULSE 58–98; RESP 12–20; TEMP 97.9–101; O2SAT 97–100
[2016-11-29] MEDS: INSULIN NovoLIN REGULAR SUPPLEMENTAL SCALE SQ SCH ×3 (02:00→13:06)
[2016-11-29] MEDS: CHLORHEXIDINE GLUCONATE 2 % 1 PACK (2 CLOTHS) TOP SCH (04:00)
[2016-11-29] MEDS: PIPERACIL-TAZO 4.5 GM PREMIX 100 ML IV SCH (04:00)
[2016-11-29 05:46] LABS: BASOPHIL # 0.1 TH/MM3 (0-0.2); BASOPHIL % 0.8 % (0.0-2.0); EOSINOPHIL # 0.4 TH/MM3 (0-0.4); EOSINOPHIL % 6.1 % (0.0-4.0); HEMATOCRIT 27.5 % (35.0-46.0); HEMO FLAGS DIFF FINAL; LYMPH % 17.5 % (9.0-44.0); LYMPHOCYTE # 1.3 TH/MM3 (1.0-4.8); MEAN CELL VOLUME 83.9 FL (80.0-100.0); MEAN CORPUSCULAR HEMOGLOBIN 27.4 PG (27.0-34.0); MEAN CORPUSCULAR HGB CONC 32.7 % (32.0-36.0); MONO % 6.5 % (0.0-8.0); NEUT % 69.1 % (16.0-70.0); PLATELET COUNT 355 TH/MM3 (150-450); RED BLOOD COUNT 3.28 MIL/MM3 (4.00-5.30); RED CELL DISTRIBUTION WIDTH 14.5 % (11.6-17.2); WHITE BLOOD COUNT 7.3 TH/MM3 (4.0-11.0)
[2016-11-29 06:09] LABS: BICARBONATE 34.1 MEQ/L (21.0-32.0); MAGNESIUM 2.2 MG/DL (1.5-2.5); POTASSIUM 3.4 MEQ/L (3.5-5.1)
[2016-11-29] MEDS: CHLORHEXIDINE 0.12% (ORAL KIT) 15 ML CUP MT SCH (08:00)
[2016-11-29] MEDS: LACTULOSE SYRUP 20 GM/30 ML CUP PO SCH (08:16)
[2016-11-29] MEDS: DOCUSATE SODIUM 100 MG/10 ML UDC PO SCH (08:16)
[2016-11-29] MEDS: BROMOCRIPTINE MESYLATE 2.5 MG TAB OG-TUBE SCH (08:16)
[2016-11-29] MEDS: SENNOSIDES SYRUP 8.8 MG/5 ML CUP PO SCH (08:16)
[2016-11-29] MEDS: levETIRAcetam INJ 500 MG in SODIUM CHLORIDE 0.9% INJ 100 ML IV SCH (08:16)
[2016-11-29] MEDS: ASPIRIN 81 MG CHEW TAB NG SCH (08:17)
[2016-11-29] MEDS: POLYETHYLENE GLYCOL 17 GM PKG PO SCH (08:17)
[2016-11-29] MEDS: levETIRAcetam 1000 MG INJ 100 ML IV SCH (08:17)
[2016-11-29] MEDS: PANTOPRAZOLE SODIUM 40 MG VIAL IV SCH (08:17)
[2016-11-29] MEDS: FOLIC ACID 1 MG TAB OG-TUBE SCH (08:17)
[2016-11-29] MEDS: ATORVASTATIN 40 MG TAB PO SCH (08:18)
[2016-11-29] MEDS: BUMETANIDE INJ 1 MG/4 ML VIAL IV PUSH SCH (08:18)
[2016-11-29] MEDS: SODIUM CHLORIDE 0.9% FLUSH 10 ML FLUSH IV FLUSH SCH (08:18)
--- NOTE | 2016-11-29 09:44 | HHI.CCPN ---
Subjective Remarks/Hospital Course 65-year-old female with past medical history of stroke for which she at one point was on warfarin but had been discontinued. She was was admitted to [facility] emergency department 11/04/16 with difficulty getting her thoughts together. She was found to have multifocal nonhemorrhagic infarcts in left frontal and parietal regions, right frontal lobe and history of moyamoya disease. She was initially awake and following commands with weakness of RLE and some aphasia. She was transferred to [facility] where he had an cerebral angiogram consistent with moyamoya. There were plans to perform extracranial/intracranial bypass. However she had a seizure and ended up being intubated for status either 11/09 or 11/10.. She was found to have a new right frontal infarct area and she was started on Dilantin and Keppra and it was felt that she would not be a candidate for intervention. She has been intubated 9-10 days and apparently she has been tolerating C Pap trials to some extent but mental status prevents extubation. Treating team was discussing with family trach/PEG. Apparently family requested transfer back to [place] because they live locally here and wanted her closer to home. Apparently she had been sedated initially with propofol but then was on Precedex from 11/12-11/14. Appears she has been off all continuous sedation since 11/14. Subjective 11/19 No acute events overnight. Palliative care has been consult at family meeting is scheduled for today. After family meeting will will discuss placement of tracheostomy and/or and PEG, based on family's wishes. 11/20: Afebrile .No change in neurological status. Consult placed for tracheostomy and PEG placement as requested by family yesterday. 11/21: Afebrile. Tracheostomy plan for some time next week with general surgery , will try to coordinate with GI for PEG placement. 11/22 No acute events overnight. FOr PEG tube placement today. Afebrile. On no sedation. 11/23 Patient remains intubated on no sedation s/p PEG tube placement yesterday for trach today. Afebrile. 11/24 No acute events overnight. For trach today. Afebrile. 11/25 Patient s/p trach yesterday had an episode of emesis overnight and tube feeds placed on hold. Afebrile. 11/26 Patient is on ventilator via trach tolerated tube feeds during day however she had another episode of emesis overnight and tube feeds placed on hold. 11/27 Patient noted to have bloody secretions with suctioning and around trach site. Spiked fever with : 101.3 at 3am. Tolerated CPAP x 4 hrs and TP 2.5 hrs yesterday. 11/28 No acute events overnight. Afebrile. Tolerated CPAP x 2 hrs yesterday. Bloody secretions resolved. Afebrile. 11/29 Patient remains on ventilator via trach on sedation tolerating CPAP trials.. Objective Vital Signs Date Time Temp Pulse Resp B/P Pulse Ox O2 Delivery O2 Flow Rate FiO2 11/29/16 09:00 100 35 11/29/16 08:00 98.0 83 12 139/91 11/26/16 20:00 Mechanical Ventilator Intake and Output 11/28/16 11/28/16 11/29/16 08:00 16:00 00:00 Intake Total 532 ml 698 ml 873 ml Output Total 200 ml 950 ml 200 ml Balance 332 ml -252 ml 673 ml Result Diagram: 11/29/16 0522 11/29/16 05 Other Results Laboratory Tests Test 11/28/16 11/29/16 15:45 05:22 Vancomycin Level Trough 25.2 MCG/ML White Blood Count 7.3 TH/MM3 Red Blood Count 3.28 MIL/MM3 Hemoglobin 9.0 GM/DL Hematocrit 27.5 % Mean Corpuscular Volume 83.9 FL Mean Corpuscular Hemoglobin 27.4 PG Mean Corpuscular Hemoglobin 32.7 % Concent Red Cell Distribution Width 14.5 % Platelet Count 355 TH/MM3 Mean Platelet Volume 8.1 FL Neutrophils (%) (Auto) 69.1 % Lymphocytes (%) (Auto) 17.5 % Monocytes (%) (Auto) 6.5 % Eosinophils (%) (Auto) 6.1 % Basophils (%) (Auto) 0.8 % Neutrophils # (Auto) 5.0 TH/MM3 Lymphocytes # (Auto) 1.3 TH/MM3 Monocytes # (Auto) 0.5 TH/MM3 Eosinophils # (Auto) 0.4 TH/MM3 Basophils # (Auto) 0.1 TH/MM3 CBC Comment DIFF FINAL Differential Comment Sodium Level 138 MEQ/L Potassium Level 3.4 MEQ/L Chloride Level 99 MEQ/L Carbon Dioxide Level 34.1 MEQ/L Anion Gap 5 MEQ/L Blood Urea Nitrogen 17 MG/DL Creatinine 0.58 MG/DL Estimat Glomerular Filtration 105 ML/MIN Rate Random Glucose 110 MG/DL Calcium Level 8.3 MG/DL Phosphorus Level 2.8 MG/DL Magnesium Level 2.2 MG/DL Imaging Last Impressions Chest X-Ray 11/27/16 0000 Signed Impressions: Service Date/Time: Sunday, November 27, 2016 08:27 - CONCLUSION: Left base atelectasis, consolidation and suspected effusion. Nghia Camacho MD Abdomen X-Ray 11/26/16 0000 Signed Impressions: Service Date/Time: Saturday, November 26, 2016 10:18 - CONCLUSION: Distended stomach otherwise nonspecific abdomen. Jackson Murillo MD Brain MRI 11/18/16 0825 Signed Impressions: Service Date/Time: November 18:14 - CONCLUSION: Large evolving bifrontal infarctions Nghia Pacheco MD Objective Remarks GENERAL: Patient is 65 yo intubated SKIN: Warm and dry. HEAD: Normocephalic. EYES: No scleral icterus. No injection or drainage. NECK: Supple, trachea midline. No JVD or lymphadenopathy. Trach in place CARDIOVASCULAR: Regular rate and rhythm without murmurs, gallops, or rubs. RESPIRATORY: Breath sounds equal bilaterally. No accessory muscle use. GASTROINTESTINAL: Abdomen soft, non-tender, nondistended. PEG tube in place MUSCULOSKELETAL: No cyanosis, or edema. Neuro: Intubated, unresponsive and does not follow commands. Date of Insertion: Nov 19, 2016 A/P Assessment and Plan NEURO: Bifrontal strokes Moyamoya Seizures Keppra 1500 mg IV twice a day Continue ASA Continue bromocriptine 2.5 mg by mouth twice a day Continue atorvastatin 40 mg by mouth daily EEG-noted sharp spikes Neurology is following Has been evaluated tertiary care center and felt to not be a candidate for further intervention. RESP: Respiratory failure COPD Continue with vent support keep sat >92% Bronchodilators, ICU vent bundle. SBT trials as nikolas s/p trach 11/24. Pulm toilet, trach care CXR 11/27 Left base atelectasis vs consolidation CV: Coronary artery disease with prior myocardial infarction Hypertension Monitor HR and BP keep MAP>65mmHg. Continue with ASA, statin GI: Dysphagia s/p PEG tube placement 11/22 Continue TF(Jevity 1.5 with goal rate 60 mL per hour) monitor for residuals On Protonix 40mg IV daily for GI prophylaxis Monitor LFT's. US liver: Cholelithiasis KUB abdomen : Distended stomach Bowel regimen with Colace, Senna , Marcela lax, Lactulose. : Monitor renal function, I/O's, electrolytes replacement per protocol. On Bumex 1mg daily. ID: 11/25 Sputum cx: Staph species, Kleb pneumonia both species sensitive to Rocephin 11/25 Urine: Kleb pneumonia Follow up on from 11/27- NGTD d/c Zosyn and Vanco and place on Rocephin 1gram daily. Monitor for signs and symptoms of infection. HEME: Monitor CBC ENDO: Euglycemic PROPH: Hold DVT prophylaxis per neurology secondary to bilateral CVAs. Protonix 40 mg IV daily for stress ulcer prophylaxis. ACCESS: Peripheral IV providing adequate access at this time. Palliative care medicine is following Level 3 Missael Oneill MD Nov 29, 2016 09:44
[2016-11-29] MEDS: cefTRIAXone INJ 1,000 MG in SODIUM CHLORIDE 0.9% INJ 100 ML IV SCH (10:50)
--- NOTE | 2016-11-29 11:11 | HHI.HCPN ---
Reason for visit a. To assist with evaluation and management of symptoms including: encephalopathy, seizure, dyspnea. b. To assist medical decision maker(s) with: better understanding of current medical conditions; weighing benefits/burdens of medical treatment options; making medical treatment decisions. . Subjective/Interval History Pt seen to follow up on comfort post trach/PEG last week, provide update to family. She remains on mech vent, no sedation. tolerating CPAP for a few hrs a day, still req. high psv, today 15. Tolerating TF. + Bowel movements, last BM . Labs stable/unremarkable. + low grade fever T max 100.0. Urine, sputum cult from 11/25 + Klebsiella pneumoniae,+ sputum-positive staph aureus . Blood cultures 11/26 pending, no growth to date. CXR 11/27=Left base atelectasis, consolidation and suspected effusion. Patient seen in room, dual visit with Alicia DICKERSON. No visitors present. She is lethargic, on mechanical vent.+ Spontaneous respirations on CPAP. Slight eye opening/blinking to vigorous verbal stimuli. Does not track examiner , does not remain awake consistently. No following of commands. Does not withdraw extremities to pain.+ Twitching to right side of mouth, cheek during exam. No apparent distress. . Family/friend interactions Following exam call to daughter Maria Del Carmen -spoke with her approximately 10 minutes. review most recent diagnostics, clinical assessments, treatments in place, overall prognosis. She indicates patient has been opening her eyes when she visits her she feels like she is more alert when family is present. I did explore the patient is not showing signs of processing surroundings though her eyes are open. Goals remain aggressive. . Advance Directives Living Will: Never completed Health Care Surrogate: Never completed Durable Power of Fundraising Sale Representative: Never completed Advance Directive Specifics Health Care Surrogate(s): No known written advance directives. Patient currently incapacitated to make her healthcare decisions. According to [place] statutes health care proxy decision-making falls to the majority of adult children. Patient has 3 children. . Objective Vital Signs Date Time Temp Pulse Resp B/P Pulse Ox O2 Delivery O2 Flow Rate FiO2 11/29/16 09:00 100 35 11/29/16 08:00 98.0 83 12 139/91 100 11/29/16 08:00 35 11/29/16 08:00 83 11/29/16 06:00 58 11/29/16 04:13 100 35 11/29/16 04:00 35 11/29/16 04:00 100.0 86 13 139/98 100 11/29/16 04:00 86 11/29/16 02:00 85 11/29/16 01:23 100 35 11/29/16 00:00 35 11/29/16 00:00 98.6 80 12 127/74 100 11/29/16 00:00 80 11/28/16 22:00 82 11/28/16 21:10 100 35 11/28/16 20:00 98.8 83 22 133/68 99 11/28/16 20:00 35 11/28/16 20:00 83 11/28/16 18:00 86 11/28/16 16:00 99.1 71 22 127/67 99 11/28/16 16:00 35 11/28/16 16:00 72 11/28/16 15:43 100 35 11/28/16 14:00 83 11/28/16 12:00 35 11/28/16 12:00 99.0 71 16 109/61 100 11/28/16 12:00 71 11/28/16 11:57 98 35 Intake & Output 11/29/16 11/29/16 07:00 19:00 Intake Total 1478 ml Output Total 350 ml Balance 1128 ml IV Total 786 ml Tube Feeding 572 ml Other 120 ml Output Urine Total 350 ml # Bowel Movements 0 Physical Exam CONSTITUTIONAL/GENERAL: critically ill patient, on mechanical ventilation. TUBES/LINES/DRAINS: PIV Upper extremity, Tracheostomy, PEG, Brown, SCDs, multipodus boots. CARDIOVASCULAR: Regular rate and rhythm RESPIRATORY/CHEST: trach midline.+ Dried red secretions around site. Symmetric , unlabored respirations via trach to mech vent. Clear to auscultation. GASTROINTESTINAL: Abdomen soft, nondistended. Bowel sounds active. +PEG LUQ site asymptomatic, +TF infusing GENITOURINARY: Without palpable bladder distension. Brown catheter in place- clear dark yellow urine. NEUROLOGICAL: Slight eye opening to vigorous verbal stimuli--does not keep eyes open. Does not track examiner. Extremities with no withdrawal to pain. + Twitching to right side of mouth, cheek during exam. PSYCHIATRIC: off sedation. Limited clinical assessment, non-responsive, no signs of anxiety . Diagnostic Tests Laboratory Laboratory Tests Test 11/27/16 11/27/16 11/28/16 11/28/16 05:16 20:03 05:15 15:45 White Blood Count 10.3 TH/MM3 8.6 TH/MM3 (4.0-11.0) (4.0-11.0) Red Blood Count 3.16 MIL/MM3 2.94 MIL/MM3 (4.00-5.30) (4.00-5.30) Hemoglobin 9.0 GM/DL 8.2 GM/DL (11.6-15.3) (11.6-15.3) Hematocrit 26.7 % 24.6 % (35.0-46.0) (35.0-46.0) Mean Corpuscular Volume 84.6 FL 83.8 FL (80.0-100.0) (80.0-100.0) Mean Corpuscular Hemoglobin 28.5 PG 28.0 PG (27.0-34.0) (27.0-34.0) Mean Corpuscular Hemoglobin 33.7 % 33.4 % Concent (32.0-36.0) (32.0-36.0) Red Cell Distribution Width 14.3 % 14.4 % (11.6-17.2) (11.6-17.2) Platelet Count 404 TH/MM3 351 TH/MM3 (150-450) (150-450) Mean Platelet Volume 8.7 FL 8.7 FL (7.0-11.0) (7.0-11.0) Neutrophils (%) (Auto) 86.4 % 76.1 % (16.0-70.0) (16.0-70.0) Lymphocytes (%) (Auto) 7.4 % 12.7 % (9.0-44.0) (9.0-44.0) Monocytes (%) (Auto) 4.8 % (0.0-8.0) 7.1 % (0.0-8.0) Eosinophils (%) (Auto) 0.9 % (0.0-4.0) 3.2 % (0.0-4.0) Basophils (%) (Auto) 0.5 % (0.0-2.0) 0.9 % (0.0-2.0) Neutrophils # (Auto) 8.9 TH/MM3 6.5 TH/MM3 (1.8-7.7) (1.8-7.7) Lymphocytes # (Auto) 0.8 TH/MM3 1.1 TH/MM3 (1.0-4.8) (1.0-4.8) Monocytes # (Auto) 0.5 TH/MM3 0.6 TH/MM3 (0-0.9) (0-0.9) Eosinophils # (Auto) 0.1 TH/MM3 0.3 TH/MM3 (0-0.4) (0-0.4) Basophils # (Auto) 0.1 TH/MM3 0.1 TH/MM3 (0-0.2) (0-0.2) CBC Comment DIFF FINAL DIFF FINAL Differential Comment Sodium Level 139 MEQ/L 141 MEQ/L (136-145) (136-145) Potassium Level 3.0 MEQ/L 3.6 MEQ/L 3.6 MEQ/L (3.5-5.1) (3.5-5.1) (3.5-5.1) Chloride Level 99 MEQ/L 102 MEQ/L (98-107) (98-107) Carbon Dioxide Level 31.5 MEQ/L 30.5 MEQ/L (21.0-32.0) (21.0-32.0) Anion Gap 9 MEQ/L (5-15) 9 MEQ/L (5-15) Blood Urea Nitrogen 20 MG/DL (7-18) 16 MG/DL (7-18) Creatinine 0.66 MG/DL 0.56 MG/DL (0.50-1.00) (0.50-1.00) Estimat Glomerular Filtration 90 ML/MIN (>89) 109 ML/MIN Rate (>89) Random Glucose 140 MG/DL 112 MG/DL (74-106) (74-106) Calcium Level 8.4 MG/DL 8.4 MG/DL (8.5-10.1) (8.5-10.1) Phosphorus Level 2.6 MG/DL (2.5-4.9) Magnesium Level 2.1 MG/DL (1.5-2.5) Total Bilirubin 0.5 MG/DL (0.2-1.0) Aspartate Amino Transf 33 U/L (15-37) (AST/SGOT) Alanine Aminotransferase 33 U/L (10-53) (ALT/SGPT) Alkaline Phosphatase 92 U/L (45-117) Total Protein 5.8 GM/DL (6.4-8.2) Albumin 2.1 GM/DL (3.4-5.0) Vancomycin Level Trough 25.2 MCG/ML (5.0-10.0) Test 11/29/16 05:22 White Blood Count 7.3 TH/MM3 (4.0-11.0) Red Blood Count 3.28 MIL/MM3 (4.00-5.30) Hemoglobin 9.0 GM/DL (11.6-15.3) Hematocrit 27.5 % (35.0-46.0) Mean Corpuscular Volume 83.9 FL (80.0-100.0) Mean Corpuscular Hemoglobin 27.4 PG (27.0-34.0) Mean Corpuscular Hemoglobin 32.7 % Concent (32.0-36.0) Red Cell Distribution Width 14.5 % (11.6-17.2) Platelet Count 355 TH/MM3 (150-450) Mean Platelet Volume 8.1 FL (7.0-11.0) Neutrophils (%) (Auto) 69.1 % (16.0-70.0) Lymphocytes (%) (Auto) 17.5 % (9.0-44.0) Monocytes (%) (Auto) 6.5 % (0.0-8.0) Eosinophils (%) (Auto) 6.1 % (0.0-4.0) Basophils (%) (Auto) 0.8 % (0.0-2.0) Neutrophils # (Auto) 5.0 TH/MM3 (1.8-7.7) Lymphocytes # (Auto) 1.3 TH/MM3 (1.0-4.8) Monocytes # (Auto) 0.5 TH/MM3 (0-0.9) Eosinophils # (Auto) 0.4 TH/MM3 (0-0.4) Basophils # (Auto) 0.1 TH/MM3 (0-0.2) CBC Comment DIFF FINAL Differential Comment Sodium Level 138 MEQ/L (136-145) Potassium Level 3.4 MEQ/L (3.5-5.1) Chloride Level 99 MEQ/L (98-107) Carbon Dioxide Level 34.1 MEQ/L (21.0-32.0) Anion Gap 5 MEQ/L (5-15) Blood Urea Nitrogen 17 MG/DL (7-18) Creatinine 0.58 MG/DL (0.50-1.00) Estimat Glomerular Filtration 105 ML/MIN Rate (>89) Random Glucose 110 MG/DL (74-106) Calcium Level 8.3 MG/DL (8.5-10.1) Phosphorus Level 2.8 MG/DL (2.5-4.9) Magnesium Level 2.2 MG/DL (1.5-2.5) Result Diagram: 11/29/1652111/29/16521 Microbiology Microbiology Date/Time Procedure Status Source Growth 11/27/16 09:40 Aerobic Blood Culture - Preliminary Resulted Blood Peripheral NO GROWTH IN 1 DAY 11/27/16 09:40 Anaerobic Blood Culture - Preliminary Resulted Blood Peripheral NO GROWTH IN 1 DAY 11/27/16 09:45 Aerobic Blood Culture - Preliminary Resulted Blood Peripheral NO GROWTH IN 1 DAY 11/27/16 09:45 Anaerobic Blood Culture - Preliminary Resulted Blood Peripheral NO GROWTH IN 1 DAY Imaging Last Impressions Chest X-Ray 11/27/16 0000 Signed Impressions: Service Date/Time: Sunday, November 27, 2016 08:27 - CONCLUSION: Left base atelectasis, consolidation and suspected effusion. Nghia Camacho MD Abdomen X-Ray 11/26/16 0000 Signed Impressions: Service Date/Time: Saturday, November 26, 2016 10:18 - CONCLUSION: Distended stomach otherwise nonspecific abdomen. Jackson Murillo MD Brain MRI 11/18/16 0825 Signed Impressions: Service Date/Time: November 18:14 - CONCLUSION: Large evolving bifrontal infarctions Nghia Pacheco MD Assessment and Plan Disease Oriented Problem List: (1) CVA (cerebral vascular accident) (2) Moyamoya disease (3) Seizure Comment: On Keppra . (4) Generalized weakness Symptom Scale: (1) Seizure 0-10 Scale: 0 (2) Generalized weakness 0-10 Scale: Unable to quantify (3) Dyspnea 0-10 Scale: Unable to quantify Comment: On mechanical ventilation Pertinent Non-Medical Issues Psychosocial: Single. Has 2 daughters and one son. Spiritual: unknown. Legal: Ethical issues impacting care: No known concerns at this time. . Important Contacts * Maria Del Carmen Rivas, daughter: [phone] * Marcelo Rivas, daughter: [phone] * Dwight Rivas, son: [phone] . Prognosis MRI/EEG reviewed by neurology, prognosis felt to be poor, infarct noted to be huge. Patient may wake some in 6 months. Given extent of infarct, I would not expect patient to regain significant functional or cognitive status. Code Status: Full Code Plan * Patient is incapacitated to make healthcare decisions. No known written advanced directives. According to [place] Statutes, health care proxy decision making falls to majority of adult children. Patient has 2 daughters (Marcelo Joyce) and 1 son (Dwight). * CODE STATUSFULL CODE * GOALS: prev met with 2/3 family members. Goals have been aggressive, they verbalized they want to cont all available treatments to give pt more time for possible recovery. Update provided to daughter 11/29/16, goals remain aggressive. * SYMPTOMS: Seizure: hx seizures 2/ CVA --visualize right facial twitching today/ patient remains on Keppra Weakness: due to prolonged hospital course, bilateral infarcts. Not regaining any purposeful or spontaneous movements as of yet. Dyspnea: remains on mech vent. Off sedation tolerating CPAP. still req. high psv (15) No signs of tachypnea now, will continue to monitor. Encephalopathy: minimally responsive at this time off sedation. Will monitor. Constipation: resolved. Last 11/28 * Palliative care will continue to follow during hospital course as condition evolves, to assist patient/decision-maker with understanding of medical conditions, weighing benefits/burdens of treatment options, for clarification of goals of treatment. Additionally will assist with any symptoms of palliative concern. . Attestation To help prompt me to consider important information that might be impacting today's encounter and assessment, information from prior notes written by myself or my colleagues may have been "brought forward" into today's note. My signature on this note, however, is an attestation that I personally performed the exam, history, and/or decision-making noted today, and, unless otherwise indicated, the interactions with patient, family, and staff as well as the review of records all occurred today. I also attest that the listed assessment and stated plan reflect my best clinical judgment today based on the combination of historical information, prior notes, and today's exam/ interactions. When time spent is documented, it refers only to time spent today by the signer, or if indicated, combined time spent today by collaborating physician/nurse practitioner. Yuridia Almeida Nov 29, 2016 11:10
[2016-11-29 11:55] LABS: BLOOD, URINE NEG (NEG); CALCIUM OXALATE CRYSTALS,URINE RARE /hpf; GLUCOSE,URINE NEG (NEG); HYALINE CAST, URINE 4 /lpf (RARE); KETONE, URINE NEG (NEG); MUCUS URINE FEW /lpf (OCC); NITRITE,URINE NEG (NEG); SQUAMOUS EPITHELIAL CELL URINE 1 /hpf (0-5); TRANSITIONAL EPI CELLS, URINE <1 /hpf; URINE COLOR YELLOW (YELLW/STRAW)
[2016-11-29 12:00] LABS: COMMENT (UR) CATH-CULTURE IND; CULTURE IF INDICATED CATH CULTURE IND
[2016-11-29] MEDS: MORPHINE SULFATE 4 MG/ML INJ IV PRN (14:55)
[2016-11-29] MEDS ORDERED: VANCOMYCIN INJ 1,250 MG in SODIUM CHLOR 0.9% 250 ML INJ 250 ML IV SCH (16:00)
[2016-11-30] VITALS (19 sets, daily range): BP systolic 123–135; BP diastolic 64–80; PULSE 83–96; RESP 12–22; TEMP 98.8–100.4; O2SAT 96–100
[2016-11-30] MEDS: CHLORHEXIDINE GLUCONATE 2 % 1 PACK (2 CLOTHS) TOP SCH (04:00)
[2016-11-30 05:45] LABS: AUTOMATED NEUTROPHIL # 15.8 TH/MM3 (1.8-7.7); BASOPHIL % 0.1 % (0.0-2.0); EOSINOPHIL # 0.2 TH/MM3 (0-0.4); EOSINOPHIL % 1.1 % (0.0-4.0); HEMATOCRIT 28.1 % (35.0-46.0); HEMO FLAGS DIFF FINAL; LYMPH % 5.2 % (9.0-44.0); LYMPHOCYTE # 0.9 TH/MM3 (1.0-4.8); MEAN CELL VOLUME 82.8 FL (80.0-100.0); MEAN CORPUSCULAR HEMOGLOBIN 27.5 PG (27.0-34.0); MEAN CORPUSCULAR HGB CONC 33.2 % (32.0-36.0); MONO % 3.4 % (0.0-8.0); NEUT % 90.2 % (16.0-70.0); PLATELET COUNT 388 TH/MM3 (150-450); RED BLOOD COUNT 3.39 MIL/MM3 (4.00-5.30); RED CELL DISTRIBUTION WIDTH 15.2 % (11.6-17.2); WHITE BLOOD COUNT 17.5 TH/MM3 (4.0-11.0)
[2016-11-30 05:49] LABS: BICARBONATE 31.3 MEQ/L (21.0-32.0); POTASSIUM 3.8 MEQ/L (3.5-5.1)
[2016-11-30] MEDS: INSULIN NovoLIN REGULAR SUPPLEMENTAL SCALE SQ SCH ×3 (08:00→20:00)
--- NOTE | 2016-11-30 08:26 | HHI.CCPN ---
Subjective Remarks/Hospital Course 65-year-old female with past medical history of stroke for which she at one point was on warfarin but had been discontinued. She was was admitted to [facility] emergency department 11/04/16 with difficulty getting her thoughts together. She was found to have multifocal nonhemorrhagic infarcts in left frontal and parietal regions, right frontal lobe and history of moyamoya disease. She was initially awake and following commands with weakness of RLE and some aphasia. She was transferred to [facility] where he had an cerebral angiogram consistent with moyamoya. There were plans to perform extracranial/intracranial bypass. However she had a seizure and ended up being intubated for status either 11/09 or 11/10.. She was found to have a new right frontal infarct area and she was started on Dilantin and Keppra and it was felt that she would not be a candidate for intervention. She has been intubated 9-10 days and apparently she has been tolerating C Pap trials to some extent but mental status prevents extubation. Treating team was discussing with family trach/PEG. Apparently family requested transfer back to [place] because they live locally here and wanted her closer to home. Apparently she had been sedated initially with propofol but then was on Precedex from 11/12-11/14. Appears she has been off all continuous sedation since 11/14. Subjective 11/19 No acute events overnight. Palliative care has been consult at family meeting is scheduled for today. After family meeting will will discuss placement of tracheostomy and/or and PEG, based on family's wishes. 11/20: Afebrile .No change in neurological status. Consult placed for tracheostomy and PEG placement as requested by family yesterday. 11/21: Afebrile. Tracheostomy plan for some time next week with general surgery , will try to coordinate with GI for PEG placement. 11/22 No acute events overnight. FOr PEG tube placement today. Afebrile. On no sedation. 11/23 Patient remains intubated on no sedation s/p PEG tube placement yesterday for trach today. Afebrile. 11/24 No acute events overnight. For trach today. Afebrile. 11/25 Patient s/p trach yesterday had an episode of emesis overnight and tube feeds placed on hold. Afebrile. 11/26 Patient is on ventilator via trach tolerated tube feeds during day however she had another episode of emesis overnight and tube feeds placed on hold. 11/27 Patient noted to have bloody secretions with suctioning and around trach site. Spiked fever with : 101.3 at 3am. Tolerated CPAP x 4 hrs and TP 2.5 hrs yesterday. 11/28 No acute events overnight. Afebrile. Tolerated CPAP x 2 hrs yesterday. Bloody secretions resolved. Afebrile. 11/29 Patient remains on ventilator via trach on sedation tolerating CPAP trials. 11/30 Patient spiked fever with T: 101.0 last night. On ventilator via trach. Tolerating tube feeds. Objective Vital Signs Date Time Temp Pulse Resp B/P Pulse Ox O2 Delivery O2 Flow Rate FiO2 11/30/16 06:00 84 11/30/16 04:31 100 35 11/30/16 04:00 100.4 14 131/77 11/26/16 20:00 Mechanical Ventilator Intake and Output 11/29/16 11/29/16 11/30/16 08:00 16:00 00:00 Intake Total 605 ml 667 ml 658 ml Output Total 150 ml 1100 ml 300 ml Balance 455 ml -433 ml 358 ml Result Diagram: 11/30/16 0439 11/30/16 0439 Other Results Laboratory Tests Test 11/29/16 11/30/16 10:45 04:39 Urine Color YELLOW Urine Turbidity HAZY Urine pH 7.0 Urine Specific [place] 1.014 Urine Protein NEG mg/dL Urine Glucose (UA) NEG mg/dL Urine Ketones NEG mg/dL Urine Occult Blood NEG Urine Nitrite NEG Urine Bilirubin NEG Urine Urobilinogen 2.0 MG/DL Urine Leukocyte Esterase MOD Urine RBC 1 /hpf Urine WBC 17 /hpf Urine Squamous Epithelial 1 /hpf Cells Urine Transitional Epithelial <1 /hpf Cells Urine Calcium Oxalate Crystals RARE /hpf Urine Hyaline Casts 4 /lpf Urine Mucus FEW /lpf Microscopic Urinalysis Comment CATH-CULTURE IND White Blood Count 17.5 TH/MM3 Red Blood Count 3.39 MIL/MM3 Hemoglobin 9.3 GM/DL Hematocrit 28.1 % Mean Corpuscular Volume 82.8 FL Mean Corpuscular Hemoglobin 27.5 PG Mean Corpuscular Hemoglobin 33.2 % Concent Red Cell Distribution Width 15.2 % Platelet Count 388 TH/MM3 Mean Platelet Volume 8.5 FL Neutrophils (%) (Auto) 90.2 % Lymphocytes (%) (Auto) 5.2 % Monocytes (%) (Auto) 3.4 % Eosinophils (%) (Auto) 1.1 % Basophils (%) (Auto) 0.1 % Neutrophils # (Auto) 15.8 TH/MM3 Lymphocytes # (Auto) 0.9 TH/MM3 Monocytes # (Auto) 0.6 TH/MM3 Eosinophils # (Auto) 0.2 TH/MM3 Basophils # (Auto) 0.0 TH/MM3 CBC Comment DIFF FINAL Differential Comment Sodium Level 137 MEQ/L Potassium Level 3.8 MEQ/L Chloride Level 99 MEQ/L Carbon Dioxide Level 31.3 MEQ/L Anion Gap 7 MEQ/L Blood Urea Nitrogen 14 MG/DL Creatinine 0.53 MG/DL Estimat Glomerular Filtration 117 ML/MIN Rate Random Glucose 118 MG/DL Calcium Level 8.1 MG/DL Imaging Last Impressions Chest X-Ray 11/27/16 0000 Signed Impressions: Service Date/Time: Sunday, November 27, 2016 08:27 - CONCLUSION: Left base atelectasis, consolidation and suspected effusion. Nghia Camacho MD Abdomen X-Ray 11/26/16 0000 Signed Impressions: Service Date/Time: Saturday, November 26, 2016 10:18 - CONCLUSION: Distended stomach otherwise nonspecific abdomen. K. David Murillo MD Brain MRI 11/18/16 0825 Signed Impressions: Service Date/Time: November 18:14 - CONCLUSION: Large evolving bifrontal infarctions Nghia Pacheco MD Objective Remarks GENERAL: Patient is 65 yo on ventilator via trach SKIN: Warm and dry. HEAD: Normocephalic. EYES: No scleral icterus. No injection or drainage. NECK: Supple, trachea midline. No JVD or lymphadenopathy. Trach in place CARDIOVASCULAR: Regular rate and rhythm without murmurs, gallops, or rubs. RESPIRATORY: Breath sounds equal bilaterally. No accessory muscle use. GASTROINTESTINAL: Abdomen soft, non-tender, nondistended. PEG tube in place MUSCULOSKELETAL: No cyanosis, or edema. Neuro: unresponsive and does not follow commands. Date of Insertion: Nov 19, 2016 A/P Assessment and Plan NEURO: Bifrontal strokes Moyamoya Seizures Keppra 1500 mg IV twice a day Continue ASA Continue bromocriptine 2.5 mg by mouth twice a day Continue atorvastatin 40 mg by mouth daily EEG-noted sharp spikes Neurology is following Has been evaluated tertiary care center and felt to not be a candidate for further intervention. RESP: Respiratory failure COPD Continue with vent support keep sat >92% Bronchodilators, ICU vent bundle. SBT trials as nikolas s/p trach 11/24. Pulm toilet, trach care CXR 11/27 Left base atelectasis vs consolidation CV: Coronary artery disease with prior myocardial infarction Hypertension Monitor HR and BP keep MAP>65mmHg. Continue with ASA, statin GI: Dysphagia s/p PEG tube placement 11/22 Continue TF(Jevity 1.5 with goal rate 60 mL per hour) monitor for residuals On Protonix 40mg IV daily for GI prophylaxis Monitor LFT's ( resolved) US liver: Cholelithiasis KUB abdomen : Distended stomach Bowel regimen with Colace, Senna , Marcela lax, Lactulose. : Monitor renal function, I/O's, electrolytes replacement per protocol. On Bumex 1mg daily. ID: [id number] Sputum cx: Staph species, Kleb pneumonia both sensitive to Rocephin 11/25 Urine: Kleb pneumonia Follow up on BC from 11/27- NGTD on Rocephin 1gram daily. Monitor for signs and symptoms of infection. Check BC x 2 sets today, followup on sputum and urine cx 11/29 HEME: Monitor CBC ENDO: Euglycemic PROPH: Hold DVT prophylaxis per neurology secondary to bilateral CVAs. Protonix 40 mg IV daily for stress ulcer prophylaxis. ACCESS: Peripheral IV providing adequate access at this time. Palliative care medicine is following Level 3 Missael Oneill MD Nov 30, 2016 08:26
[2016-11-30] MEDS: CHLORHEXIDINE 0.12% (ORAL KIT) 15 ML CUP MT SCH (08:57)
[2016-11-30] MEDS: levETIRAcetam 1000 MG INJ 100 ML IV SCH ×2 (08:58→21:46)
[2016-11-30] MEDS: levETIRAcetam INJ 500 MG in SODIUM CHLORIDE 0.9% INJ 100 ML IV SCH ×2 (08:59→21:46)
[2016-11-30] MEDS: SODIUM CHLORIDE 0.9% FLUSH 10 ML FLUSH IV FLUSH SCH (09:00)
[2016-11-30] MEDS: ATORVASTATIN 40 MG TAB PO SCH (09:01)
[2016-11-30] MEDS: ASPIRIN 81 MG CHEW TAB NG SCH (09:01)
[2016-11-30] MEDS: POLYETHYLENE GLYCOL 17 GM PKG PO SCH (09:01)
[2016-11-30] MEDS: DOCUSATE SODIUM 100 MG/10 ML UDC PO SCH ×2 (09:01→21:46)
[2016-11-30] MEDS: BROMOCRIPTINE MESYLATE 2.5 MG TAB OG-TUBE SCH ×2 (09:01→21:46)
[2016-11-30] MEDS: SENNOSIDES SYRUP 8.8 MG/5 ML CUP PO SCH ×2 (09:01→21:46)
[2016-11-30] MEDS: LACTULOSE SYRUP 20 GM/30 ML CUP PO SCH ×2 (09:01→21:45)
[2016-11-30] MEDS: PANTOPRAZOLE SODIUM 40 MG VIAL IV SCH (09:02)
[2016-11-30] MEDS: FOLIC ACID 1 MG TAB OG-TUBE SCH (09:02)
[2016-11-30] MEDS: BUMETANIDE INJ 1 MG/4 ML VIAL IV PUSH SCH (09:02)
[2016-11-30 09:41] LABS: AUTOMATED NEUTROPHIL # 14.9 TH/MM3 (1.8-7.7); BASOPHIL % 0.2 % (0.0-2.0); EOSINOPHIL # 0.2 TH/MM3 (0-0.4); EOSINOPHIL % 1.2 % (0.0-4.0); HEMO FLAGS DIFF FINAL; LYMPHOCYTE # 1.2 TH/MM3 (1.0-4.8); MEAN CORPUSCULAR HEMOGLOBIN 26.4 PG (27.0-34.0); MEAN CORPUSCULAR HGB CONC 31.8 % (32.0-36.0); MONO % 3.9 % (0.0-8.0); NEUT % 87.7 % (16.0-70.0); PLATELET COUNT 336 TH/MM3 (150-450); RED BLOOD COUNT 3.49 MIL/MM3 (4.00-5.30); RED CELL DISTRIBUTION WIDTH 14.9 % (11.6-17.2)
[2016-11-30] MEDS: cefTRIAXone INJ 1,000 MG in SODIUM CHLORIDE 0.9% INJ 100 ML IV SCH (11:38)
[2016-12-01] VITALS (18 sets, daily range): BP systolic 120–146; BP diastolic 61–79; PULSE 83–92; RESP 12–21; TEMP 98.3–99.8; O2SAT 14–100
--- NOTE | 2016-12-01 03:50 | RADRPT ---
EXAM DATE/TIME: 12/01/2016 02:37 [facility] COMPARISON: CHEST SINGLE AP, November 27, 2016, 8:27. INDICATIONS : Short of breath. MEDICAL HISTORY : Hypertension. Chronic obstructive pulmonary disease. Myocardial infarction. SURGICAL HISTORY : None. ENCOUNTER: Subsequent ACUITY: 2 weeks PAIN SCORE: Non-responsive. LOCATION: Bilateral chest FINDINGS: The tracheostomy tube remains in place. There is no evidence of pneumothorax. The right lung is clear and well-aerated. There is improving infiltrate in the left lung base. No new infiltrates are seen. No significant pleural effusions. Heart size is stable. CONCLUSION: Improving left lower lung infiltrate. Clif Jacobo MD on December 01, 2016 at 3:48 Board Certified Radiologist. This report was verified electronically.
[2016-12-01] MEDS: CHLORHEXIDINE GLUCONATE 2 % 1 PACK (2 CLOTHS) TOP SCH ×2 (04:00→20:19)
[2016-12-01 06:13] LABS: AUTOMATED NEUTROPHIL # 12.9 TH/MM3 (1.8-7.7); BASOPHIL % 0.2 % (0.0-2.0); EOSINOPHIL # 0.3 TH/MM3 (0-0.4); EOSINOPHIL % 1.9 % (0.0-4.0); HEMATOCRIT 28.4 % (35.0-46.0); HEMO FLAGS DIFF FINAL; LYMPH % 5.8 % (9.0-44.0); LYMPHOCYTE # 0.8 TH/MM3 (1.0-4.8); MEAN CELL VOLUME 83.1 FL (80.0-100.0); MEAN CORPUSCULAR HEMOGLOBIN 27.5 PG (27.0-34.0); MEAN CORPUSCULAR HGB CONC 33.1 % (32.0-36.0); MONO % 3.2 % (0.0-8.0); NEUT % 88.9 % (16.0-70.0); PLATELET COUNT 370 TH/MM3 (150-450); RED BLOOD COUNT 3.42 MIL/MM3 (4.00-5.30); RED CELL DISTRIBUTION WIDTH 15.1 % (11.6-17.2); WHITE BLOOD COUNT 14.5 TH/MM3 (4.0-11.0)
[2016-12-01 06:29] LABS: BICARBONATE 28.3 MEQ/L (21.0-32.0); POTASSIUM 3.7 MEQ/L (3.5-5.1)
[2016-12-01] MEDS: INSULIN NovoLIN REGULAR SUPPLEMENTAL SCALE SQ SCH ×3 (08:00→20:00)
[2016-12-01] MEDS: CHLORHEXIDINE 0.12% (ORAL KIT) 15 ML CUP MT SCH ×2 (08:45→21:33)
[2016-12-01] MEDS: SODIUM CHLORIDE 0.9% FLUSH 10 ML FLUSH IV FLUSH SCH ×2 (08:45→21:34)
[2016-12-01] MEDS: levETIRAcetam 1000 MG INJ 100 ML IV SCH ×2 (08:46→21:33)
[2016-12-01] MEDS: PANTOPRAZOLE SODIUM 40 MG VIAL IV SCH (08:46)
[2016-12-01] MEDS: levETIRAcetam INJ 500 MG in SODIUM CHLORIDE 0.9% INJ 100 ML IV SCH ×2 (08:46→21:33)
[2016-12-01] MEDS: FOLIC ACID 1 MG TAB OG-TUBE SCH (08:47)
[2016-12-01] MEDS: BUMETANIDE INJ 1 MG/4 ML VIAL IV PUSH SCH (08:47)
[2016-12-01] MEDS: POLYETHYLENE GLYCOL 17 GM PKG PO SCH (08:47)
[2016-12-01] MEDS: LACTULOSE SYRUP 20 GM/30 ML CUP PO SCH ×2 (08:47→21:33)
[2016-12-01] MEDS: DOCUSATE SODIUM 100 MG/10 ML UDC PO SCH ×2 (08:47→21:33)
[2016-12-01] MEDS: SENNOSIDES SYRUP 8.8 MG/5 ML CUP PO SCH ×2 (08:47→21:00)
[2016-12-01] MEDS: BROMOCRIPTINE MESYLATE 2.5 MG TAB OG-TUBE SCH ×2 (08:47→21:34)
[2016-12-01] MEDS: ASPIRIN 81 MG CHEW TAB NG SCH (08:47)
[2016-12-01] MEDS: ATORVASTATIN 40 MG TAB PO SCH (08:48)
[2016-12-01] MEDS: cefTRIAXone INJ 1,000 MG in SODIUM CHLORIDE 0.9% INJ 100 ML IV SCH (10:25)
--- NOTE | 2016-12-01 11:10 | MP ---
cc: JUAN CREWS M.D. DATE OF SURGERY: 11/24/2016 PROCEDURE Percutaneous tracheostomy. PREOPERATIVE DIAGNOSIS Ventilator dependence secondary to CVA. POSTOPERATIVE DIAGNOSIS Ventilator dependence secondary to CVA. ANESTHESIA IV sedation. SURGEON Ash LINE PALLETIZER Missael Oneill COMPLICATIONS None. DRAINS None. SPECIMEN None. PROCEDURE IN DETAIL Please see Dr. Oneill's note for the bronchoscopic portion of the procedure. After this was performed. The trach tapes were loosened and the neck was then sterilely prepped and draped. A timeout was taken confirming the correct patient, site and procedure to be performed. The skin and subcutaneous tissue was infiltrated with local anesthetic and a transverse incision made two fingerbreadths above the sternal notch. While observing with the bronchoscope the undersigned inserted an 18-gauge needle with an angiocatheter into the trachea. The needle was withdrawn and a guidewire passed down the angiocatheter. The guidewire was seen to pass into the ted. The angiocatheter was removed. A tracheal punch was passed over the guidewire and seen to be in the trachea. A white catheter guide and Blue Rhino were then slid over the green guidewire. This was removed and a #8 percutaneous tracheostomy tube with a 28-Malawian tracheostomy guide was slid over both the white catheter guide and green guidewire. This was seen by direct visualization with the bronchoscope to pass into the trachea. The green guidewire, white catheter guide and 28-Malawian tracheostomy guide were all removed. Dr. Oneill then visualized via the bronchoscope the trachea by placing the scope into the tracheostomy. At this point the balloon was inflated, the obturator inserted, and the circuit switched over to the tracheostomy tube. The tracheostomy tube was secured in place with four 2-0 Prolene sutures. A tracheostomy dressing was applied underneath this and a Velcro strap applied around the neck. A stat. chest x-ray was obtained which demonstrated no pneumothorax. The patient tolerated the procedure well. MD OSEAS Barnes/SANJEEV /12:39 PM /10:57 AM
--- NOTE | 2016-12-01 15:01 | HHI.CCPN ---
Subjective Remarks/Hospital Course 65-year-old female with past medical history of stroke for which she at one point was on warfarin but had been discontinued. She was was admitted to [facility] emergency department 11/04/16 with difficulty getting her thoughts together. She was found to have multifocal nonhemorrhagic infarcts in left frontal and parietal regions, right frontal lobe and history of moyamoya disease. She was initially awake and following commands with weakness of RLE and some aphasia. She was transferred to [facility] where he had an cerebral angiogram consistent with moyamoya. There were plans to perform extracranial/intracranial bypass. However she had a seizure and ended up being intubated for status either 11/09 or 11/10.. She was found to have a new right frontal infarct area and she was started on Dilantin and Keppra and it was felt that she would not be a candidate for intervention. She has been intubated 9-10 days and apparently she has been tolerating C Pap trials to some extent but mental status prevents extubation. Treating team was discussing with family trach/PEG. Apparently family requested transfer back to [place] because they live locally here and wanted her closer to home. Apparently she had been sedated initially with propofol but then was on Precedex from 11/12-11/14. Appears she has been off all continuous sedation since 11/14. Subjective 11/19 No acute events overnight. Palliative care has been consult at family meeting is scheduled for today. After family meeting will will discuss placement of tracheostomy and/or and PEG, based on family's wishes. 11/20: Afebrile .No change in neurological status. Consult placed for tracheostomy and PEG placement as requested by family yesterday. 11/21: Afebrile. Tracheostomy plan for some time next week with general surgery , will try to coordinate with GI for PEG placement. 11/22 No acute events overnight. FOr PEG tube placement today. Afebrile. On no sedation. 11/23 Patient remains intubated on no sedation s/p PEG tube placement yesterday for trach today. Afebrile. 11/24 No acute events overnight. For trach today. Afebrile. 11/25 Patient s/p trach yesterday had an episode of emesis overnight and tube feeds placed on hold. Afebrile. 11/26 Patient is on ventilator via trach tolerated tube feeds during day however she had another episode of emesis overnight and tube feeds placed on hold. 11/27 Patient noted to have bloody secretions with suctioning and around trach site. Spiked fever with : 101.3 at 3am. Tolerated CPAP x 4 hrs and TP 2.5 hrs yesterday. 11/28 No acute events overnight. Afebrile. Tolerated CPAP x 2 hrs yesterday. Bloody secretions resolved. Afebrile. 11/29 Patient remains on ventilator via trach on sedation tolerating CPAP trials. 11/30 Patient spiked fever with T: 101.0 last night. On ventilator via trach. Tolerating tube feeds. 12/01: Remains on mechanical ventilation via tracheostomy. Objective Vital Signs Date Time Temp Pulse Resp B/P Pulse Ox O2 Delivery O2 Flow Rate FiO2 12/01/16 14:50 98 35 12/01/16 14:00 91 12/01/16 12:00 98.4 19 129/69 Intake and Output 11/30/16 11/30/16 12/01/16 08:00 16:00 00:00 Intake Total 449 ml 1230 ml 658 ml Output Total 400 ml 1125 ml 400 ml Balance 49 ml 105 ml 258 ml Result Diagram: 12/01/16 0540 12/01/16 0540 Other Results Microbiology Date/Time Procedure Status Source Growth 11/29/16 10:45 Gram Stain - Final Complete Sputum Endotracheal 11/29/16 10:45 Sputum Culture - Final Complete Klebsiella Pneumoniae 11/29/16 10:45 Urine Culture - Final Complete Urine Catheterized Urine Klebsiella Pneumoniae Imaging Last Impressions Chest X-Ray 11/27/16 0000 Signed Impressions: Service Date/Time: Sunday, November 27, 2016 08:27 - CONCLUSION: Left base atelectasis, consolidation and suspected effusion. Nghia Camacho MD Abdomen X-Ray 11/26/16 0000 Signed Impressions: Service Date/Time: Saturday, November 26, 2016 10:18 - CONCLUSION: Distended stomach otherwise nonspecific abdomen. Jackson Murillo MD Brain MRI 11/18/16 0825 Signed Impressions: Service Date/Time: November 18:14 - CONCLUSION: Large evolving bifrontal infarctions Nghia Pacheco MD Objective Remarks GENERAL: Patient is 65 yo on ventilator via trach SKIN: Warm and dry. HEAD: Normocephalic. EYES: No scleral icterus. No injection or drainage. NECK: Supple, trachea midline. No JVD or lymphadenopathy. Trach in place CARDIOVASCULAR: Regular rate and rhythm without murmurs, gallops, or rubs. RESPIRATORY: Breath sounds equal bilaterally. No accessory muscle use. GASTROINTESTINAL: Abdomen soft, non-tender, nondistended. PEG tube in place MUSCULOSKELETAL: No cyanosis, or edema. Neuro: unresponsive and does not follow commands. Date of Insertion: Nov 19, 2016 A/P Assessment and Plan NEURO: Bifrontal strokes Moyamoya Seizures Keppra 1500 mg IV twice a day Continue ASA Continue bromocriptine 2.5 mg by mouth twice a day Continue atorvastatin 40 mg by mouth daily EEG-noted sharp spikes Neurology is following Has been evaluated tertiary care center and felt to not be a candidate for further intervention. RESP: Respiratory failure COPD Continue with vent support keep sat >92% Bronchodilators, ICU vent bundle. SBT trials as nikolas s/p trach 11/24. Pulm toilet, trach care CXR 11/27 Left base atelectasis vs consolidation CV: Coronary artery disease with prior myocardial infarction Hypertension Monitor HR and BP keep MAP>65mmHg. Continue with ASA, statin GI: Dysphagia s/p PEG tube placement 11/22 Continue TF(Jevity 1.5 with goal rate 60 mL per hour) monitor for residuals On Protonix 40mg IV daily for GI prophylaxis Monitor LFT's ( resolved) US liver: Cholelithiasis KUB abdomen : Distended stomach Bowel regimen with Colace, Senna , Marcela lax, Lactulose. : Monitor renal function, I/O's, electrolytes replacement per protocol. On Bumex 1mg daily. ID: 11/25 Sputum cx: Staph species, Kleb pneumonia both sensitive to Rocephin 11/25 Urine: Kleb pneumonia Follow up on BC from 11/27- NGTD on Rocephin 1gram daily. Monitor for signs and symptoms of infection. Check BC x 2 sets drawn on 11/30, followup on sputum and urine cx 11/29 HEME: Monitor CBC ENDO: Euglycemic PROPH: Hold DVT prophylaxis per neurology secondary to bilateral CVAs. Protonix 40 mg IV daily for stress ulcer prophylaxis. ACCESS: Peripheral IV providing adequate access at this time. Palliative care medicine is following Level 3 Redi Mcbride MD Dec 01, 2016 15:01
[2016-12-01] MEDS ORDERED: PHARMACY ORDERED LAB ONE (15:45)
[2016-12-02] VITALS (17 sets, daily range): BP systolic 133–150; BP diastolic 64–86; PULSE 75–99; RESP 13–24; TEMP 98.3–99.3; O2SAT 97–100
[2016-12-02] MEDS: INSULIN NovoLIN REGULAR SUPPLEMENTAL SCALE SQ SCH ×4 (01:30→20:00)
[2016-12-02] MEDS: CHLORHEXIDINE 0.12% (ORAL KIT) 15 ML CUP MT SCH ×2 (08:00→20:56)
[2016-12-02] MEDS: SODIUM CHLORIDE 0.9% FLUSH 10 ML FLUSH IV FLUSH SCH ×2 (09:00→20:59)
[2016-12-02] MEDS: ASPIRIN 81 MG CHEW TAB NG SCH (09:14)
[2016-12-02] MEDS: ATORVASTATIN 40 MG TAB PO SCH (09:14)
[2016-12-02] MEDS: BROMOCRIPTINE MESYLATE 2.5 MG TAB OG-TUBE SCH ×2 (09:14→20:59)
[2016-12-02] MEDS: FOLIC ACID 1 MG TAB OG-TUBE SCH (09:14)
[2016-12-02] MEDS: levETIRAcetam 1000 MG INJ 100 ML IV SCH ×2 (09:15→20:57)
[2016-12-02] MEDS: levETIRAcetam INJ 500 MG in SODIUM CHLORIDE 0.9% INJ 100 ML IV SCH ×2 (09:15→20:58)
[2016-12-02] MEDS: PANTOPRAZOLE SODIUM 40 MG VIAL IV SCH (09:15)
[2016-12-02] MEDS: POLYETHYLENE GLYCOL 17 GM PKG PO SCH (09:16)
[2016-12-02] MEDS: BUMETANIDE INJ 1 MG/4 ML VIAL IV PUSH SCH (09:16)
[2016-12-02] MEDS: LACTULOSE SYRUP 20 GM/30 ML CUP PO SCH ×2 (09:17→20:59)
[2016-12-02] MEDS: DOCUSATE SODIUM 100 MG/10 ML UDC PO SCH ×2 (09:17→20:59)
[2016-12-02] MEDS: SENNOSIDES SYRUP 8.8 MG/5 ML CUP PO SCH ×2 (09:17→20:59)
--- NOTE | 2016-12-02 11:18 | HHI.CCPN ---
Subjective Remarks/Hospital Course 65-year-old female with past medical history of stroke for which she at one point was on warfarin but had been discontinued. She was was admitted to [facility] emergency department 11/04/16 with difficulty getting her thoughts together. She was found to have multifocal nonhemorrhagic infarcts in left frontal and parietal regions, right frontal lobe and history of moyamoya disease. She was initially awake and following commands with weakness of RLE and some aphasia. She was transferred to [facility] where he had an cerebral angiogram consistent with moyamoya. There were plans to perform extracranial/intracranial bypass. However she had a seizure and ended up being intubated for status either 11/09 or 11/10.. She was found to have a new right frontal infarct area and she was started on Dilantin and Keppra and it was felt that she would not be a candidate for intervention. She has been intubated 9-10 days and apparently she has been tolerating C Pap trials to some extent but mental status prevents extubation. Treating team was discussing with family trach/PEG. Apparently family requested transfer back to [place] because they live locally here and wanted her closer to home. Apparently she had been sedated initially with propofol but then was on Precedex from 11/12-11/14. Appears she has been off all continuous sedation since 11/14. Subjective 11/19 No acute events overnight. Palliative care has been consult at family meeting is scheduled for today. After family meeting will will discuss placement of tracheostomy and/or and PEG, based on family's wishes. 11/20: Afebrile .No change in neurological status. Consult placed for tracheostomy and PEG placement as requested by family yesterday. 11/21: Afebrile. Tracheostomy plan for some time next week with general surgery , will try to coordinate with GI for PEG placement. 11/22 No acute events overnight. FOr PEG tube placement today. Afebrile. On no sedation. 11/23 Patient remains intubated on no sedation s/p PEG tube placement yesterday for trach today. Afebrile. 11/24 No acute events overnight. For trach today. Afebrile. 11/25 Patient s/p trach yesterday had an episode of emesis overnight and tube feeds placed on hold. Afebrile. 11/26 Patient is on ventilator via trach tolerated tube feeds during day however she had another episode of emesis overnight and tube feeds placed on hold. 11/27 Patient noted to have bloody secretions with suctioning and around trach site. Spiked fever with : 101.3 at 3am. Tolerated CPAP x 4 hrs and TP 2.5 hrs yesterday. 11/28 No acute events overnight. Afebrile. Tolerated CPAP x 2 hrs yesterday. Bloody secretions resolved. Afebrile. 11/29 Patient remains on ventilator via trach on sedation tolerating CPAP trials. 11/30 Patient spiked fever with T: 101.0 last night. On ventilator via trach. Tolerating tube feeds. 12/01: Remains on mechanical ventilation via tracheostomy. 12/02: Remains encephalopathic, on mechanical ventilation via tracheostomy. Tolerating tube feeds. Off all sedation. Objective Vital Signs Date Time Temp Pulse Resp B/P Pulse Ox O2 Delivery O2 Flow Rate FiO2 12/02/16 10:00 90 12/02/16 08:18 35 12/02/16 08:18 100 12/02/16 04:00 98.3 14 136/78 Intake and Output 12/01/16 12/01/16 12/01/16 07:59 15:59 23:59 Intake Total 616 ml 820 ml 620 ml Output Total 300 ml 975 ml 400 ml Balance 316 ml -155 ml 220 ml Result Diagram: 12/01/16 0540 12/01/16 0540 Imaging Last Impressions Chest X-Ray 11/27/16 0000 Signed Impressions: Service Date/Time: Sunday, November 27, 2016 08:27 - CONCLUSION: Left base atelectasis, consolidation and suspected effusion. Nghia Camacho MD Abdomen X-Ray 11/26/16 0000 Signed Impressions: Service Date/Time: Saturday, November 26, 2016 10:18 - CONCLUSION: Distended stomach otherwise nonspecific abdomen. Jackson Murillo MD Brain MRI 11/18/16 0825 Signed Impressions: Service Date/Time: November 18:14 - CONCLUSION: Large evolving bifrontal infarctions Nghia Pacheco MD Objective Remarks GENERAL: Patient is 65 yo on ventilator via trach SKIN: Warm and dry. HEAD: Normocephalic. EYES: No scleral icterus. No injection or drainage. NECK: Supple, trachea midline. No JVD or lymphadenopathy. Trach in place CARDIOVASCULAR: Regular rate and rhythm without murmurs, gallops, or rubs. RESPIRATORY: Breath sounds equal bilaterally. No accessory muscle use. GASTROINTESTINAL: Abdomen soft, non-tender, nondistended. PEG tube in place MUSCULOSKELETAL: No cyanosis, or edema. Neuro: unresponsive and does not follow commands. Date of Insertion: Nov 19, 2016 A/P Assessment and Plan NEURO: Bifrontal strokes Moyamoya Seizures Keppra 1500 mg IV twice a day Continue ASA Continue bromocriptine 2.5 mg by mouth twice a day Continue atorvastatin 40 mg by mouth daily EEG-noted sharp spikes Neurology is following Has been evaluated tertiary care center and felt to not be a candidate for further intervention. RESP: Respiratory failure COPD Continue with vent support keep sat >92% Bronchodilators, ICU vent bundle. SBT trials as nikolas s/p trach 11/24. Pulm toilet, trach care CXR 11/27 Left base atelectasis vs consolidation CV: Coronary artery disease with prior myocardial infarction Hypertension Monitor HR and BP keep MAP>65mmHg. Continue with ASA, statin GI: Dysphagia s/p PEG tube placement 11/22 Continue TF(Jevity 1.5 with goal rate 60 mL per hour) monitor for residuals On Protonix 40mg IV daily for GI prophylaxis Monitor LFT's ( resolved) US liver: Cholelithiasis KUB abdomen : Distended stomach Bowel regimen with Colace, Senna , Marcela lax, Lactulose. : Monitor renal function, I/O's, electrolytes replacement per protocol. On Bumex 1mg daily. ID: 11/25 Sputum cx: Staph species, Kleb pneumonia both sensitive to Rocephin 11/25 Urine: Kleb pneumonia Follow up on BC from 11/27- NGTD on Rocephin 1gram daily. Monitor for signs and symptoms of infection. Check BC x 2 sets drawn on 11/30, followup on sputum and urine cx 11/29 HEME: Monitor CBC ENDO: Euglycemic PROPH: Hold DVT prophylaxis per neurology secondary to bilateral CVAs. Protonix 40 mg IV daily for stress ulcer prophylaxis. ACCESS: Peripheral IV providing adequate access at this time. Palliative care medicine is following Level 3 Reid Mcbride MD Dec 02, 2016 11:18
[2016-12-02] MEDS: cefTRIAXone INJ 1,000 MG in SODIUM CHLORIDE 0.9% INJ 100 ML IV SCH (12:11)
[2016-12-03] VITALS (19 sets, daily range): BP systolic 120–152; BP diastolic 65–92; PULSE 71–99; RESP 16–19; TEMP 99–99.6; O2SAT 96–100
[2016-12-03] MEDS: INSULIN NovoLIN REGULAR SUPPLEMENTAL SCALE SQ SCH ×4 (01:20→20:00)
[2016-12-03] MEDS: CHLORHEXIDINE GLUCONATE 2 % 1 PACK (2 CLOTHS) TOP SCH (03:15)
[2016-12-03 05:22] LABS: AUTOMATED NEUTROPHIL # 7.7 TH/MM3 (1.8-7.7); BASOPHIL % 0.3 % (0.0-2.0); EOSINOPHIL # 0.5 TH/MM3 (0-0.4); HEMATOCRIT 27.6 % (35.0-46.0); HEMO FLAGS DIFF FINAL; LYMPH % 9.2 % (9.0-44.0); LYMPHOCYTE # 0.9 TH/MM3 (1.0-4.8); MEAN CELL VOLUME 82.7 FL (80.0-100.0); MEAN CORPUSCULAR HEMOGLOBIN 26.5 PG (27.0-34.0); MEAN CORPUSCULAR HGB CONC 32.1 % (32.0-36.0); MONO % 6.5 % (0.0-8.0); PLATELET COUNT 327 TH/MM3 (150-450); RED BLOOD COUNT 3.34 MIL/MM3 (4.00-5.30); RED CELL DISTRIBUTION WIDTH 14.8 % (11.6-17.2); WHITE BLOOD COUNT 9.8 TH/MM3 (4.0-11.0)
[2016-12-03 05:44] LABS: ALT (GPT) 40 U/L (10-53); ANION GAP 8 MEQ/L (5-15); AST (GOT) 38 U/L (15-37); BICARBONATE 29.5 MEQ/L (21.0-32.0); BLOOD UREA NITROGEN 17 MG/DL (7-18); CHLORIDE 103 MEQ/L (98-107); GLOMERULAR FILTRATION RATE 152 ML/MIN (>89); POTASSIUM 3.8 MEQ/L (3.5-5.1); SODIUM (NA) 140 MEQ/L (136-145)
[2016-12-03 05:46] LABS: ALKALINE PHOSPHATASE 106 U/L (45-117); TOTAL BILIRUBIN ADULT 0.3 MG/DL (0.2-1.0)
[2016-12-03] MEDS: levETIRAcetam INJ 500 MG in SODIUM CHLORIDE 0.9% INJ 100 ML IV SCH ×2 (09:00→21:11)
[2016-12-03] MEDS: SODIUM CHLORIDE 0.9% FLUSH 10 ML FLUSH IV FLUSH SCH ×2 (09:00→21:12)
[2016-12-03] MEDS: POLYETHYLENE GLYCOL 17 GM PKG PO SCH (09:42)
[2016-12-03] MEDS: levETIRAcetam 1000 MG INJ 100 ML IV SCH ×2 (09:42→21:11)
[2016-12-03] MEDS: ASPIRIN 81 MG CHEW TAB NG SCH (09:42)
[2016-12-03] MEDS: DOCUSATE SODIUM 100 MG/10 ML UDC PO SCH ×2 (09:43→21:11)
[2016-12-03] MEDS: ATORVASTATIN 40 MG TAB PO SCH (09:43)
[2016-12-03] MEDS: FOLIC ACID 1 MG TAB OG-TUBE SCH (09:43)
[2016-12-03] MEDS: BROMOCRIPTINE MESYLATE 2.5 MG TAB OG-TUBE SCH ×2 (09:43→21:12)
[2016-12-03] MEDS: PANTOPRAZOLE SODIUM 40 MG VIAL IV SCH (09:43)
[2016-12-03] MEDS: LACTULOSE SYRUP 20 GM/30 ML CUP PO SCH ×2 (09:44→21:10)
[2016-12-03] MEDS: BUMETANIDE INJ 1 MG/4 ML VIAL IV PUSH SCH (09:44)
[2016-12-03] MEDS: cefTRIAXone INJ 1,000 MG in SODIUM CHLORIDE 0.9% INJ 100 ML IV SCH (09:44)
[2016-12-03] MEDS: SENNOSIDES SYRUP 8.8 MG/5 ML CUP PO SCH ×2 (09:44→21:10)
--- NOTE | 2016-12-03 16:26 | HHI.CCPN ---
Subjective Remarks/Hospital Course 65-year-old female with past medical history of stroke for which she at one point was on warfarin but had been discontinued. She was was admitted to [facility] emergency department 11/04/16 with difficulty getting her thoughts together. She was found to have multifocal nonhemorrhagic infarcts in left frontal and parietal regions, right frontal lobe and history of moyamoya disease. She was initially awake and following commands with weakness of RLE and some aphasia. She was transferred to [facility] where he had an cerebral angiogram consistent with moyamoya. There were plans to perform extracranial/intracranial bypass. However she had a seizure and ended up being intubated for status either 11/09 or 11/10.. She was found to have a new right frontal infarct area and she was started on Dilantin and Keppra and it was felt that she would not be a candidate for intervention. She has been intubated 9-10 days and apparently she has been tolerating C Pap trials to some extent but mental status prevents extubation. Treating team was discussing with family trach/PEG. Apparently family requested transfer back to [place] because they live locally here and wanted her closer to home. Apparently she had been sedated initially with propofol but then was on Precedex from 11/12-11/14. Appears she has been off all continuous sedation since 11/14. Subjective 11/19 No acute events overnight. Palliative care has been consult at family meeting is scheduled for today. After family meeting will will discuss placement of tracheostomy and/or and PEG, based on family's wishes. 11/20: Afebrile .No change in neurological status. Consult placed for tracheostomy and PEG placement as requested by family yesterday. 11/21: Afebrile. Tracheostomy plan for some time next week with general surgery , will try to coordinate with GI for PEG placement. 11/22 No acute events overnight. FOr PEG tube placement today. Afebrile. On no sedation. 11/23 Patient remains intubated on no sedation s/p PEG tube placement yesterday for trach today. Afebrile. 11/24 No acute events overnight. For trach today. Afebrile. 11/25 Patient s/p trach yesterday had an episode of emesis overnight and tube feeds placed on hold. Afebrile. 11/26 Patient is on ventilator via trach tolerated tube feeds during day however she had another episode of emesis overnight and tube feeds placed on hold. 11/27 Patient noted to have bloody secretions with suctioning and around trach site. Spiked fever with : 101.3 at 3am. Tolerated CPAP x 4 hrs and TP 2.5 hrs yesterday. 11/28 No acute events overnight. Afebrile. Tolerated CPAP x 2 hrs yesterday. Bloody secretions resolved. Afebrile. 11/29 Patient remains on ventilator via trach on sedation tolerating CPAP trials. 11/30 Patient spiked fever with T: 101.0 last night. On ventilator via trach. Tolerating tube feeds. 12/01: Remains on mechanical ventilation via tracheostomy. 12/02: Remains encephalopathic, on mechanical ventilation via tracheostomy. Tolerating tube feeds. Off all sedation. 12/03: Remains encephalopathic, on mechanical ventilation via tracheostomy. Remains off all sedation. Tolerating PEG feeds Objective Vital Signs Date Time Temp Pulse Resp B/P Pulse Ox O2 Delivery O2 Flow Rate FiO2 12/03/16 12:38 96 T-piece 6.00 40 12/03/16 12:00 88 12/03/16 04:00 99.5 16 136/82 Intake and Output 12/02/16 12/02/16 12/02/16 07:59 15:59 23:59 Intake Total 420 ml 1462 ml 1143 ml Output Total 380 ml 1070 ml 425 ml Balance 40 ml 392 ml 718 ml Result Diagram: 12/03/16 0430 12/03/16 0430 Imaging Last Impressions Chest X-Ray 11/27/16 0000 Signed Impressions: Service Date/Time: Sunday, November 27, 2016 08:27 - CONCLUSION: Left base atelectasis, consolidation and suspected effusion. Nghia Camacho MD Abdomen X-Ray 11/26/16 0000 Signed Impressions: Service Date/Time: Saturday, November 26, 2016 10:18 - CONCLUSION: Distended stomach otherwise nonspecific abdomen. Jackson Murillo MD Brain MRI 11/18/16 0825 Signed Impressions: Service Date/Time: November 18:14 - CONCLUSION: Large evolving bifrontal infarctions Nghia Pacheco MD Objective Remarks GENERAL: Patient is 65 yo on ventilator via trach SKIN: Warm and dry. HEAD: Normocephalic. EYES: No scleral icterus. No injection or drainage. NECK: Supple, trachea midline. No JVD or lymphadenopathy. Trach in place CARDIOVASCULAR: Regular rate and rhythm without murmurs, gallops, or rubs. RESPIRATORY: Breath sounds equal bilaterally. No accessory muscle use. GASTROINTESTINAL: Abdomen soft, non-tender, nondistended. PEG tube in place MUSCULOSKELETAL: No cyanosis, or edema. Neuro: unresponsive and does not follow commands. Date of Insertion: Nov 19, 2016 A/P Assessment and Plan NEURO: Bifrontal strokes Moyamoya Seizures Keppra 1500 mg IV twice a day Continue ASA Continue bromocriptine 2.5 mg by mouth twice a day Continue atorvastatin 40 mg by mouth daily EEG-noted sharp spikes Neurology is following Has been evaluated tertiary care center and felt to not be a candidate for further intervention. RESP: Respiratory failure COPD Continue with vent support keep sat >92% Bronchodilators, ICU vent bundle. SBT trials as nikolas s/p trach 11/24. Pulm toilet, trach care CXR 11/27 Left base atelectasis vs consolidation CV: Coronary artery disease with prior myocardial infarction Hypertension Monitor HR and BP keep MAP>65mmHg. Continue with ASA, statin GI: Dysphagia s/p PEG tube placement 11/22 Continue TF(Jevity 1.5 with goal rate 60 mL per hour) monitor for residuals On Protonix 40mg IV daily for GI prophylaxis Monitor LFT's ( resolved) US liver: Cholelithiasis KUB abdomen : Distended stomach Bowel regimen with Colace, Senna , Marcela lax, Lactulose. : Monitor renal function, I/O's, electrolytes replacement per protocol. On Bumex 1mg daily. ID: 11/25 Sputum cx: Staph species, Kleb pneumonia both sensitive to Rocephin 11/25 Urine: Kleb pneumonia Follow up on BC from 11/27- NGTD on Rocephin 1gram daily. Monitor for signs and symptoms of infection. Check BC x 2 sets drawn on 11/30, followup on sputum and urine cx 11/29 HEME: Monitor CBC ENDO: Euglycemic PROPH: Hold DVT prophylaxis per neurology secondary to bilateral CVAs. Protonix 40 mg IV daily for stress ulcer prophylaxis. ACCESS: Peripheral IV providing adequate access at this time. Palliative care medicine is following Level 3 Reid Mcbride MD Dec 03, 2016 16:26
[2016-12-03] MEDS: CHLORHEXIDINE 0.12% (ORAL KIT) 15 ML CUP MT SCH ×2 (20:00→21:13)
[2016-12-04] VITALS (18 sets, daily range): BP systolic 132–142; BP diastolic 73–85; PULSE 80–99; RESP 18–24; TEMP 98.5–99.4; O2SAT 100
[2016-12-04] MEDS: CHLORHEXIDINE GLUCONATE 2 % 1 PACK (2 CLOTHS) TOP SCH (04:00)
[2016-12-04] MEDS: INSULIN NovoLIN REGULAR SUPPLEMENTAL SCALE SQ SCH ×3 (08:00→19:59)
[2016-12-04] MEDS: LACTULOSE SYRUP 20 GM/30 ML CUP PO SCH ×2 (09:27→21:08)
[2016-12-04] MEDS: BUMETANIDE INJ 1 MG/4 ML VIAL IV PUSH SCH (09:27)
[2016-12-04] MEDS: DOCUSATE SODIUM 100 MG/10 ML UDC PO SCH ×2 (09:27→21:08)
[2016-12-04] MEDS: BROMOCRIPTINE MESYLATE 2.5 MG TAB OG-TUBE SCH ×2 (09:27→21:09)
[2016-12-04] MEDS: ATORVASTATIN 40 MG TAB PO SCH (09:27)
[2016-12-04] MEDS: POLYETHYLENE GLYCOL 17 GM PKG PO SCH (09:27)
[2016-12-04] MEDS: PANTOPRAZOLE SODIUM 40 MG VIAL IV SCH (09:28)
[2016-12-04] MEDS: SODIUM CHLORIDE 0.9% FLUSH 10 ML FLUSH IV FLUSH SCH ×2 (09:28→21:09)
[2016-12-04] MEDS: levETIRAcetam INJ 500 MG in SODIUM CHLORIDE 0.9% INJ 100 ML IV SCH ×2 (09:28→21:08)
[2016-12-04] MEDS: ASPIRIN 81 MG CHEW TAB NG SCH (09:28)
[2016-12-04] MEDS: levETIRAcetam 1000 MG INJ 100 ML IV SCH ×2 (09:34→21:09)
[2016-12-04] MEDS: FOLIC ACID 1 MG TAB OG-TUBE SCH (09:34)
[2016-12-04] MEDS: SENNOSIDES SYRUP 8.8 MG/5 ML CUP PO SCH ×2 (09:34→21:08)
[2016-12-04] MEDS: CHLORHEXIDINE 0.12% (ORAL KIT) 15 ML CUP MT SCH ×2 (09:53→19:59)
[2016-12-04] MEDS: cefTRIAXone INJ 1,000 MG in SODIUM CHLORIDE 0.9% INJ 100 ML IV SCH (12:13)
--- NOTE | 2016-12-04 13:49 | HHI.CCPN ---
Subjective Remarks/Hospital Course 65-year-old female with past medical history of stroke for which she at one point was on warfarin but had been discontinued. She was was admitted to [facility] emergency department 11/04/16 with difficulty getting her thoughts together. She was found to have multifocal nonhemorrhagic infarcts in left frontal and parietal regions, right frontal lobe and history of moyamoya disease. She was initially awake and following commands with weakness of RLE and some aphasia. She was transferred to [facility] where he had an cerebral angiogram consistent with moyamoya. There were plans to perform extracranial/intracranial bypass. However she had a seizure and ended up being intubated for status either 11/09 or 11/10.. She was found to have a new right frontal infarct area and she was started on Dilantin and Keppra and it was felt that she would not be a candidate for intervention. She has been intubated 9-10 days and apparently she has been tolerating C Pap trials to some extent but mental status prevents extubation. Treating team was discussing with family trach/PEG. Apparently family requested transfer back to [place] because they live locally here and wanted her closer to home. Apparently she had been sedated initially with propofol but then was on Precedex from 11/12-11/14. Appears she has been off all continuous sedation since 11/14. Subjective 11/19 No acute events overnight. Palliative care has been consult at family meeting is scheduled for today. After family meeting will will discuss placement of tracheostomy and/or and PEG, based on family's wishes. 11/20: Afebrile .No change in neurological status. Consult placed for tracheostomy and PEG placement as requested by family yesterday. 11/21: Afebrile. Tracheostomy plan for some time next week with general surgery , will try to coordinate with GI for PEG placement. 11/22 No acute events overnight. FOr PEG tube placement today. Afebrile. On no sedation. 11/23 Patient remains intubated on no sedation s/p PEG tube placement yesterday for trach today. Afebrile. 11/24 No acute events overnight. For trach today. Afebrile. 11/25 Patient s/p trach yesterday had an episode of emesis overnight and tube feeds placed on hold. Afebrile. 11/26 Patient is on ventilator via trach tolerated tube feeds during day however she had another episode of emesis overnight and tube feeds placed on hold. 11/27 Patient noted to have bloody secretions with suctioning and around trach site. Spiked fever with : 101.3 at 3am. Tolerated CPAP x 4 hrs and TP 2.5 hrs yesterday. 11/28 No acute events overnight. Afebrile. Tolerated CPAP x 2 hrs yesterday. Bloody secretions resolved. Afebrile. 11/29 Patient remains on ventilator via trach on sedation tolerating CPAP trials. 11/30 Patient spiked fever with T: 101.0 last night. On ventilator via trach. Tolerating tube feeds. 12/01: Remains on mechanical ventilation via tracheostomy. 12/02: Remains encephalopathic, on mechanical ventilation via tracheostomy. Tolerating tube feeds. Off all sedation. 12/03: Remains encephalopathic, on mechanical ventilation via tracheostomy. Remains off all sedation. Tolerating PEG feeds 12/04: Opens eyes however remains encephalopathic and not following commands. On mechanical ventilation via tracheostomy. Tolerated TPs during daytime yesterday. Tolerating PEG feeds. Objective Vital Signs Date Time Temp Pulse Resp B/P Pulse Ox O2 Delivery O2 Flow Rate FiO2 12/04/16 12:00 35 12/04/16 12:00 98 12/04/16 12:00 100 12/04/16 12:00 99.4 24 135/76 12/03/16 12:38 T-piece 6.00 Intake and Output 12/03/16 12/03/16 12/04/16 08:00 16:00 00:00 Intake Total 546 ml 1298 ml 1014 ml Output Total 300 ml 1000 ml 650 ml Balance 246 ml 298 ml 364 ml Result Diagram: 12/03/16 0430 12/03/16 0430 Imaging Last Impressions Chest X-Ray 11/27/16 0000 Signed Impressions: Service Date/Time: Sunday, November 27, 2016 08:27 - CONCLUSION: Left base atelectasis, consolidation and suspected effusion. Nghia Camacho MD Abdomen X-Ray 11/26/16 0000 Signed Impressions: Service Date/Time: Saturday, November 26, 2016 10:18 - CONCLUSION: Distended stomach otherwise nonspecific abdomen. K. David Murillo MD Brain MRI 11/18/16 0825 Signed Impressions: Service Date/Time: November 18:14 - CONCLUSION: Large evolving bifrontal infarctions Nghia Pacheco MD Objective Remarks GENERAL: Patient is 65 yo on ventilator via trach SKIN: Warm and dry. HEAD: Normocephalic. EYES: No scleral icterus. No injection or drainage. NECK: Supple, trachea midline. No JVD or lymphadenopathy. Trach in place CARDIOVASCULAR: Regular rate and rhythm without murmurs, gallops, or rubs. RESPIRATORY: Breath sounds equal bilaterally. No accessory muscle use. GASTROINTESTINAL: Abdomen soft, non-tender, nondistended. PEG tube in place MUSCULOSKELETAL: No cyanosis, or edema. Neuro: Opens eyes however remains encephalopathic and does not follow commands. Date of Insertion: Nov 19, 2016 A/P Assessment and Plan NEURO: Bifrontal strokes Moyamoya Seizures Keppra 1500 mg IV twice a day Continue ASA Continue bromocriptine 2.5 mg by mouth twice a day Continue atorvastatin 40 mg by mouth daily EEG-noted sharp spikes Neurology is following Has been evaluated tertiary care center and felt to not be a candidate for further intervention. RESP: Respiratory failure COPD Continue with vent support keep sat >92% Bronchodilators, ICU vent bundle. SBT trials as nikolas s/p trach 11/24. Pulm toilet, trach care CXR 11/27 Left base atelectasis vs consolidation CV: Coronary artery disease with prior myocardial infarction Hypertension Monitor HR and BP keep MAP>65mmHg. Continue with ASA, statin GI: Dysphagia s/p PEG tube placement 11/22 Continue TF(Jevity 1.5 with goal rate 60 mL per hour) monitor for residuals On Protonix 40mg IV daily for GI prophylaxis Monitor LFT's ( resolved) US liver: Cholelithiasis KUB abdomen : Distended stomach Bowel regimen with Colace, Senna , Marcela lax, Lactulose. : Monitor renal function, I/O's, electrolytes replacement per protocol. On Bumex 1mg daily. ID: [id number] Sputum cx: Staph species, Kleb pneumonia both sensitive to Rocephin 11/25 Urine: Kleb pneumonia Follow up on BC from 11/27- NGTD on Rocephin 1gram daily. Monitor for signs and symptoms of infection. BC x 2 sets drawn on 11/30 with no growth, sputum and urine cx 11/29 growing klebsiella HEME: Monitor CBC ENDO: Euglycemic PROPH: Hold DVT prophylaxis per neurology secondary to bilateral CVAs. Protonix 40 mg IV daily for stress ulcer prophylaxis. ACCESS: Peripheral IV providing adequate access at this time. Palliative care medicine is following Level 3 Reid Mcbride MD Dec 04, 2016 13:49
[2016-12-04] MEDS: RESP: ALBUTEROL 2.5 MG/3 ML NEB (PRN) INH (19:49)
[2016-12-05] VITALS (17 sets, daily range): BP systolic 123–142; BP diastolic 65–91; PULSE 82–101; RESP 19–26; TEMP 98.4–99.1; O2SAT 100
[2016-12-05] MEDS: INSULIN NovoLIN REGULAR SUPPLEMENTAL SCALE SQ SCH ×4 (02:00→19:27)
[2016-12-05] MEDS: RESP: ALBUTEROL 2.5 MG/3 ML NEB (PRN) INH ×2 (03:25→20:55)
[2016-12-05] MEDS: CHLORHEXIDINE GLUCONATE 2 % 1 PACK (2 CLOTHS) TOP SCH (04:00)
[2016-12-05] MEDS: CHLORHEXIDINE 0.12% (ORAL KIT) 15 ML CUP MT SCH ×2 (08:02→19:28)
[2016-12-05] MEDS: DOCUSATE SODIUM 100 MG/10 ML UDC PO SCH ×2 (08:03→22:23)
[2016-12-05] MEDS: LACTULOSE SYRUP 20 GM/30 ML CUP PO SCH ×2 (08:03→22:23)
[2016-12-05] MEDS: levETIRAcetam INJ 500 MG in SODIUM CHLORIDE 0.9% INJ 100 ML IV SCH ×2 (08:03→22:22)
[2016-12-05] MEDS: levETIRAcetam 1000 MG INJ 100 ML IV SCH ×2 (08:03→22:23)
[2016-12-05] MEDS: POLYETHYLENE GLYCOL 17 GM PKG PO SCH (08:03)
[2016-12-05] MEDS: SENNOSIDES SYRUP 8.8 MG/5 ML CUP PO SCH ×2 (08:03→22:23)
[2016-12-05] MEDS: FOLIC ACID 1 MG TAB OG-TUBE SCH (08:03)
[2016-12-05] MEDS: BUMETANIDE INJ 1 MG/4 ML VIAL IV PUSH SCH (08:04)
[2016-12-05] MEDS: SODIUM CHLORIDE 0.9% FLUSH 10 ML FLUSH IV FLUSH SCH ×2 (08:04→21:00)
[2016-12-05] MEDS: ASPIRIN 81 MG CHEW TAB NG SCH (08:04)
[2016-12-05] MEDS: ATORVASTATIN 40 MG TAB PO SCH (08:04)
[2016-12-05] MEDS: PANTOPRAZOLE SODIUM 40 MG VIAL IV SCH (08:04)
[2016-12-05] MEDS: BROMOCRIPTINE MESYLATE 2.5 MG TAB OG-TUBE SCH ×2 (09:00→22:23)
[2016-12-05] MEDS: cefTRIAXone INJ 1,000 MG in SODIUM CHLORIDE 0.9% INJ 100 ML IV SCH (14:40)
--- NOTE | 2016-12-05 16:33 | HHI.CCPN ---
Subjective Remarks/Hospital Course 65-year-old female with past medical history of stroke for which she at one point was on warfarin but had been discontinued. She was was admitted to [facility] emergency department 11/04/16 with difficulty getting her thoughts together. She was found to have multifocal nonhemorrhagic infarcts in left frontal and parietal regions, right frontal lobe and history of moyamoya disease. She was initially awake and following commands with weakness of RLE and some aphasia. She was transferred to [facility] where he had an cerebral angiogram consistent with moyamoya. There were plans to perform extracranial/intracranial bypass. However she had a seizure and ended up being intubated for status either 11/09 or 11/10.. She was found to have a new right frontal infarct area and she was started on Dilantin and Keppra and it was felt that she would not be a candidate for intervention. She has been intubated 9-10 days and apparently she has been tolerating C Pap trials to some extent but mental status prevents extubation. Treating team was discussing with family trach/PEG. Apparently family requested transfer back to [place] because they live locally here and wanted her closer to home. Apparently she had been sedated initially with propofol but then was on Precedex from 11/12-11/14. Appears she has been off all continuous sedation since 11/14. Subjective 11/19 No acute events overnight. Palliative care has been consult at family meeting is scheduled for today. After family meeting will will discuss placement of tracheostomy and/or and PEG, based on family's wishes. 11/20: Afebrile .No change in neurological status. Consult placed for tracheostomy and PEG placement as requested by family yesterday. 11/21: Afebrile. Tracheostomy plan for some time next week with general surgery , will try to coordinate with GI for PEG placement. 11/22 No acute events overnight. FOr PEG tube placement today. Afebrile. On no sedation. 11/23 Patient remains intubated on no sedation s/p PEG tube placement yesterday for trach today. Afebrile. 11/24 No acute events overnight. For trach today. Afebrile. 11/25 Patient s/p trach yesterday had an episode of emesis overnight and tube feeds placed on hold. Afebrile. 11/26 Patient is on ventilator via trach tolerated tube feeds during day however she had another episode of emesis overnight and tube feeds placed on hold. 11/27 Patient noted to have bloody secretions with suctioning and around trach site. Spiked fever with : 101.3 at 3am. Tolerated CPAP x 4 hrs and TP 2.5 hrs yesterday. 11/28 No acute events overnight. Afebrile. Tolerated CPAP x 2 hrs yesterday. Bloody secretions resolved. Afebrile. 11/29 Patient remains on ventilator via trach on sedation tolerating CPAP trials. 11/30 Patient spiked fever with T: 101.0 last night. On ventilator via trach. Tolerating tube feeds. 12/01: Remains on mechanical ventilation via tracheostomy. 12/02: Remains encephalopathic, on mechanical ventilation via tracheostomy. Tolerating tube feeds. Off all sedation. 12/03: Remains encephalopathic, on mechanical ventilation via tracheostomy. Remains off all sedation. Tolerating PEG feeds 12/04: Opens eyes however remains encephalopathic and not following commands. On mechanical ventilation via tracheostomy. Tolerated TPs during daytime yesterday. Tolerating PEG feeds. 01/04: Remains encephalopathic, on mech vent via trach. Daily C Pap trials. Objective Vital Signs Date Time Temp Pulse Resp B/P Pulse Ox O2 Delivery O2 Flow Rate FiO2 12/05/16 16:00 35 12/05/16 16:00 101 12/05/16 16:00 99.1 26 142/81 100 12/03/16 12:38 T-piece 6.00 Intake and Output 12/04/16 12/04/16 12/05/16 08:00 16:00 00:00 Intake Total 717 ml 1027 ml 701 ml Output Total 300 ml 1650 ml 400 ml Balance 417 ml -623 ml 301 ml Result Diagram: 12/03/16 0430 12/03/16 0430 Imaging Last Impressions Chest X-Ray 11/27/16 0000 Signed Impressions: Service Date/Time: Sunday, November 27, 2016 08:27 - CONCLUSION: Left base atelectasis, consolidation and suspected effusion. Nghia Camacho MD Abdomen X-Ray 11/26/16 0000 Signed Impressions: Service Date/Time: Saturday, November 26, 2016 10:18 - CONCLUSION: Distended stomach otherwise nonspecific abdomen. Jackson Murillo MD Brain MRI 11/18/16 0825 Signed Impressions: Service Date/Time: November 18:14 - CONCLUSION: Large evolving bifrontal infarctions Nghia Pacheco MD Objective Remarks GENERAL: Patient is 65 yo on ventilator via trach SKIN: Warm and dry. HEAD: Normocephalic. EYES: No scleral icterus. No injection or drainage. NECK: Supple, trachea midline. No JVD or lymphadenopathy. Trach in place CARDIOVASCULAR: Regular rate and rhythm without murmurs, gallops, or rubs. RESPIRATORY: Breath sounds equal bilaterally. No accessory muscle use. GASTROINTESTINAL: Abdomen soft, non-tender, nondistended. PEG tube in place MUSCULOSKELETAL: No cyanosis, or edema. Neuro: Opens eyes however remains encephalopathic and does not follow commands. Date of Insertion: Nov 19, 2016 A/P Assessment and Plan NEURO: Bifrontal strokes Moyamoya Seizures Keppra 1500 mg IV twice a day Continue ASA Continue bromocriptine 2.5 mg by mouth twice a day Continue atorvastatin 40 mg by mouth daily EEG-noted sharp spikes Neurology is following Has been evaluated tertiary care center and felt to not be a candidate for further intervention. RESP: Respiratory failure COPD Continue with vent support keep sat >92% Bronchodilators, ICU vent bundle. SBT trials as nikolas s/p trach 11/24. Pulm toilet, trach care CXR 11/27 Left base atelectasis vs consolidation CV: Coronary artery disease with prior myocardial infarction Hypertension Monitor HR and BP keep MAP>65mmHg. Continue with ASA, statin GI: Dysphagia s/p PEG tube placement 11/22 Continue TF(Jevity 1.5 with goal rate 60 mL per hour) monitor for residuals On Protonix 40mg IV daily for GI prophylaxis Monitor LFT's ( resolved) US liver: Cholelithiasis KUB abdomen : Distended stomach Bowel regimen with Colace, Senna , Marcela lax, Lactulose. : Monitor renal function, I/O's, electrolytes replacement per protocol. On Bumex 1mg daily. ID: 11/25 Sputum cx: Staph species, Kleb pneumonia both sensitive to Rocephin 11/25 Urine: Kleb pneumonia Follow up on BC from 11/27- NGTD on Rocephin 1gram daily. Monitor for signs and symptoms of infection. BC x 2 sets drawn on 11/30 with no growth, sputum and urine cx 11/29 growing klebsiella HEME: Monitor CBC ENDO: Euglycemic PROPH: Hold DVT prophylaxis per neurology secondary to bilateral CVAs. Protonix 40 mg IV daily for stress ulcer prophylaxis. ACCESS: Peripheral IV providing adequate access at this time. Palliative care medicine is following Case management eval for LTAC placement. Level 3 Reid Mcbride MD Dec 05, 2016 16:33
[2016-12-06] VITALS (18 sets, daily range): BP systolic 114–137; BP diastolic 59–75; PULSE 90–101; RESP 21–28; TEMP 98.4–99.5; O2SAT 100
[2016-12-06] MEDS: INSULIN NovoLIN REGULAR SUPPLEMENTAL SCALE SQ SCH ×4 (02:00→20:00)
[2016-12-06] MEDS: CHLORHEXIDINE GLUCONATE 2 % 1 PACK (2 CLOTHS) TOP SCH (02:37)
[2016-12-06] MEDS: RESP: ALBUTEROL 2.5 MG/3 ML NEB (PRN) INH (03:26)
[2016-12-06 06:19] LABS: AUTOMATED NEUTROPHIL # 10.2 TH/MM3 (1.8-7.7); BASOPHIL % 0.4 % (0.0-2.0); EOSINOPHIL # 0.5 TH/MM3 (0-0.4); EOSINOPHIL % 4.1 % (0.0-4.0); HEMATOCRIT 26.1 % (35.0-46.0); HEMO FLAGS DIFF FINAL; LYMPH % 8.7 % (9.0-44.0); LYMPHOCYTE # 1.1 TH/MM3 (1.0-4.8); MEAN CELL VOLUME 81.8 FL (80.0-100.0); MONO % 3.4 % (0.0-8.0); NEUT % 83.4 % (16.0-70.0); PLATELET COUNT 371 TH/MM3 (150-450); RED BLOOD COUNT 3.19 MIL/MM3 (4.00-5.30); RED CELL DISTRIBUTION WIDTH 15.2 % (11.6-17.2); WHITE BLOOD COUNT 12.3 TH/MM3 (4.0-11.0)
[2016-12-06 06:42] LABS: ALKALINE PHOSPHATASE 118 U/L (45-117); ALT (GPT) 49 U/L (10-53); ANION GAP 10 MEQ/L (5-15); AST (GOT) 42 U/L (15-37); BICARBONATE 29.9 MEQ/L (21.0-32.0); BLOOD UREA NITROGEN 19 MG/DL (7-18); CHLORIDE 96 MEQ/L (98-107); GLOMERULAR FILTRATION RATE 131 ML/MIN (>89); POTASSIUM 4.2 MEQ/L (3.5-5.1); SODIUM (NA) 136 MEQ/L (136-145); TOTAL BILIRUBIN ADULT 0.3 MG/DL (0.2-1.0)
[2016-12-06] MEDS: POLYETHYLENE GLYCOL 17 GM PKG PO SCH (09:00)
[2016-12-06] MEDS: SENNOSIDES SYRUP 8.8 MG/5 ML CUP PO SCH ×2 (09:00→20:20)
[2016-12-06] MEDS: LACTULOSE SYRUP 20 GM/30 ML CUP PO SCH ×2 (09:00→20:20)
[2016-12-06] MEDS: levETIRAcetam 1000 MG INJ 100 ML IV SCH ×2 (09:15→20:20)
[2016-12-06] MEDS: levETIRAcetam INJ 500 MG in SODIUM CHLORIDE 0.9% INJ 100 ML IV SCH ×2 (09:15→20:20)
[2016-12-06] MEDS: ATORVASTATIN 40 MG TAB PO SCH (09:16)
[2016-12-06] MEDS: BUMETANIDE INJ 1 MG/4 ML VIAL IV PUSH SCH (09:16)
[2016-12-06] MEDS: FOLIC ACID 1 MG TAB OG-TUBE SCH (09:16)
[2016-12-06] MEDS: PANTOPRAZOLE SODIUM 40 MG VIAL IV SCH (09:16)
[2016-12-06] MEDS: ASPIRIN 81 MG CHEW TAB NG SCH (09:17)
[2016-12-06] MEDS: DOCUSATE SODIUM 100 MG/10 ML UDC PO SCH ×2 (09:17→20:20)
[2016-12-06] MEDS: BROMOCRIPTINE MESYLATE 2.5 MG TAB OG-TUBE SCH ×2 (09:17→20:21)
[2016-12-06] MEDS: CHLORHEXIDINE 0.12% (ORAL KIT) 15 ML CUP MT SCH ×2 (09:28→20:20)
[2016-12-06] MEDS: SODIUM CHLORIDE 0.9% FLUSH 10 ML FLUSH IV FLUSH SCH ×2 (09:29→20:20)
[2016-12-06] MEDS: cefTRIAXone INJ 1,000 MG in SODIUM CHLORIDE 0.9% INJ 100 ML IV SCH (13:10)
[2016-12-06] MEDS ORDERED: MAGNESIUM SULFATE 2 GM/NS 100 ML IV ONE ×2 (15:30)
--- NOTE | 2016-12-06 18:53 | HHI.CCPN ---
Subjective Remarks/Hospital Course 65-year-old female with past medical history of stroke for which she at one point was on warfarin but had been discontinued. She was was admitted to [facility] emergency department 11/04/16 with difficulty getting her thoughts together. She was found to have multifocal nonhemorrhagic infarcts in left frontal and parietal regions, right frontal lobe and history of moyamoya disease. She was initially awake and following commands with weakness of RLE and some aphasia. She was transferred to [facility] where he had an cerebral angiogram consistent with moyamoya. There were plans to perform extracranial/intracranial bypass. However she had a seizure and ended up being intubated for status either 11/09 or 11/10.. She was found to have a new right frontal infarct area and she was started on Dilantin and Keppra and it was felt that she would not be a candidate for intervention. She has been intubated 9-10 days and apparently she has been tolerating C Pap trials to some extent but mental status prevents extubation. Treating team was discussing with family trach/PEG. Apparently family requested transfer back to [place] because they live locally here and wanted her closer to home. Apparently she had been sedated initially with propofol but then was on Precedex from 11/12-11/14. Appears she has been off all continuous sedation since 11/14. Subjective 11/19 No acute events overnight. Palliative care has been consult at family meeting is scheduled for today. After family meeting will will discuss placement of tracheostomy and/or and PEG, based on family's wishes. 11/20: Afebrile .No change in neurological status. Consult placed for tracheostomy and PEG placement as requested by family yesterday. 11/21: Afebrile. Tracheostomy plan for some time next week with general surgery , will try to coordinate with GI for PEG placement. 11/22 No acute events overnight. FOr PEG tube placement today. Afebrile. On no sedation. 11/23 Patient remains intubated on no sedation s/p PEG tube placement yesterday for trach today. Afebrile. 11/24 No acute events overnight. For trach today. Afebrile. 11/25 Patient s/p trach yesterday had an episode of emesis overnight and tube feeds placed on hold. Afebrile. 11/26 Patient is on ventilator via trach tolerated tube feeds during day however she had another episode of emesis overnight and tube feeds placed on hold. 11/27 Patient noted to have bloody secretions with suctioning and around trach site. Spiked fever with : 101.3 at 3am. Tolerated CPAP x 4 hrs and TP 2.5 hrs yesterday. 11/28 No acute events overnight. Afebrile. Tolerated CPAP x 2 hrs yesterday. Bloody secretions resolved. Afebrile. 11/29 Patient remains on ventilator via trach on sedation tolerating CPAP trials. 11/30 Patient spiked fever with T: 101.0 last night. On ventilator via trach. Tolerating tube feeds. 12/01: Remains on mechanical ventilation via tracheostomy. 12/02: Remains encephalopathic, on mechanical ventilation via tracheostomy. Tolerating tube feeds. Off all sedation. 12/03: Remains encephalopathic, on mechanical ventilation via tracheostomy. Remains off all sedation. Tolerating PEG feeds 12/04: Opens eyes however remains encephalopathic and not following commands. On mechanical ventilation via tracheostomy. Tolerated TPs during daytime yesterday. Tolerating PEG feeds. 12/05: Remains encephalopathic, on mech vent via trach. Daily C Pap trials. 12/06: Remains encephalopathic. Has spontaneous eye opening however not tracking. Remains on mechanical ventilation via tracheostomy. Daily C Pap trials ongoing. Objective Vital Signs Date Time Temp Pulse Resp B/P Pulse Ox O2 Delivery O2 Flow Rate FiO2 12/06/16 18:02 94 12/06/16 17:47 100 35 12/06/16 16:00 99.5 24 116/72 12/03/16 12:38 T-piece 6.00 Intake and Output 12/05/16 12/05/16 12/06/16 08:00 16:00 00:00 Intake Total 707 ml 1050 ml 673 ml Output Total 500 ml 1600 ml 550 ml Balance 207 ml -550 ml 123 ml Result Diagram: 12/06/16 0531 12/06/16 0531 Imaging Last Impressions Chest X-Ray 11/27/16 0000 Signed Impressions: Service Date/Time: Sunday, November 27, 2016 08:27 - CONCLUSION: Left base atelectasis, consolidation and suspected effusion. Nghia Camahco MD Abdomen X-Ray 11/26/16 0000 Signed Impressions: Service Date/Time: Saturday, November 26, 2016 10:18 - CONCLUSION: Distended stomach otherwise nonspecific abdomen. KKristin Murillo MD Brain MRI 11/18/16 0825 Signed Impressions: Service Date/Time: November 18:14 - CONCLUSION: Large evolving bifrontal infarctions Nghia Pacheco MD Objective Remarks GENERAL: Patient is 65 yo on ventilator via trach SKIN: Warm and dry. HEAD: Normocephalic. EYES: No scleral icterus. No injection or drainage. NECK: Supple, trachea midline. No JVD or lymphadenopathy. Trach in place CARDIOVASCULAR: Regular rate and rhythm without murmurs, gallops, or rubs. RESPIRATORY: Breath sounds equal bilaterally. No accessory muscle use. GASTROINTESTINAL: Abdomen soft, non-tender, nondistended. PEG tube in place MUSCULOSKELETAL: No cyanosis, or edema. Neuro: Opens eyes however remains encephalopathic and does not follow commands. Date of Insertion: Nov 19, 2016 A/P Assessment and Plan NEURO: Bifrontal strokes Moyamoya Seizures Keppra 1500 mg IV twice a day Continue ASA Continue bromocriptine 2.5 mg by mouth twice a day Continue atorvastatin 40 mg by mouth daily EEG-noted sharp spikes Neurology is following Has been evaluated tertiary care center and felt to not be a candidate for further intervention. RESP: Respiratory failure COPD Continue with vent support keep sat >92% Bronchodilators, ICU vent bundle. SBT trials as nikolas s/p trach 11/24. Pulm toilet, trach care CXR 11/27 Left base atelectasis vs consolidation CV: Coronary artery disease with prior myocardial infarction Hypertension Monitor HR and BP keep MAP>65mmHg. Continue with ASA, statin GI: Dysphagia s/p PEG tube placement 11/22 Continue TF(Jevity 1.5 with goal rate 60 mL per hour) monitor for residuals On Protonix 40mg IV daily for GI prophylaxis Monitor LFT's ( resolved) US liver: Cholelithiasis KUB abdomen : Distended stomach Bowel regimen with Colace, Senna , Marcela lax, Lactulose. : Monitor renal function, I/O's, electrolytes replacement per protocol. On Bumex 1mg daily. ID: 11/25 Sputum cx: Staph species, Kleb pneumonia both sensitive to Rocephin 11/25 Urine: Kleb pneumonia Follow up on BC from 11/27- NGTD on Rocephin 1gram daily. Monitor for signs and symptoms of infection. BC x 2 sets drawn on 11/30 with no growth, sputum and urine cx 11/29 growing klebsiella HEME: Monitor CBC ENDO: Euglycemic PROPH: Hold DVT prophylaxis per neurology secondary to bilateral CVAs. Protonix 40 mg IV daily for stress ulcer prophylaxis. ACCESS: Peripheral IV providing adequate access at this time. Palliative care medicine is following Case management eval for LTAC placement. Level 3 Reid Mcbride MD December 06, 2016 18:53
[2016-12-07] VITALS (19 sets, daily range): BP systolic 124–135; BP diastolic 60–75; PULSE 85–98; RESP 17–20; TEMP 98.5–99.2; O2SAT 100
[2016-12-07] MEDS: INSULIN NovoLIN REGULAR SUPPLEMENTAL SCALE SQ SCH ×4 (02:00→20:00)
[2016-12-07] MEDS: CHLORHEXIDINE GLUCONATE 2 % 1 PACK (2 CLOTHS) TOP SCH (04:00)
[2016-12-07] MEDS: levETIRAcetam 1000 MG INJ 100 ML IV SCH ×2 (08:51→20:39)
[2016-12-07] MEDS: levETIRAcetam INJ 500 MG in SODIUM CHLORIDE 0.9% INJ 100 ML IV SCH ×2 (08:51→20:39)
[2016-12-07] MEDS: PANTOPRAZOLE SODIUM 40 MG VIAL IV SCH (08:52)
[2016-12-07] MEDS: DOCUSATE SODIUM 100 MG/10 ML UDC PO SCH ×2 (08:52→20:39)
[2016-12-07] MEDS: ASPIRIN 81 MG CHEW TAB NG SCH (08:52)
[2016-12-07] MEDS: BUMETANIDE INJ 1 MG/4 ML VIAL IV PUSH SCH (08:52)
[2016-12-07] MEDS: BROMOCRIPTINE MESYLATE 2.5 MG TAB OG-TUBE SCH ×2 (08:52→20:39)
[2016-12-07] MEDS: FOLIC ACID 1 MG TAB OG-TUBE SCH (08:53)
[2016-12-07] MEDS: ATORVASTATIN 40 MG TAB PO SCH (08:53)
[2016-12-07] MEDS: SODIUM CHLORIDE 0.9% FLUSH 10 ML FLUSH IV FLUSH SCH ×2 (08:54→20:39)
[2016-12-07] MEDS: CHLORHEXIDINE 0.12% (ORAL KIT) 15 ML CUP MT SCH ×2 (08:54→20:40)
[2016-12-07] MEDS: POLYETHYLENE GLYCOL 17 GM PKG PO SCH (09:00)
[2016-12-07] MEDS: SENNOSIDES SYRUP 8.8 MG/5 ML CUP PO SCH ×2 (09:00→20:39)
[2016-12-07] MEDS: LACTULOSE SYRUP 20 GM/30 ML CUP PO SCH ×2 (09:00→20:39)
[2016-12-07] MEDS: cefTRIAXone INJ 1,000 MG in SODIUM CHLORIDE 0.9% INJ 100 ML IV SCH (11:27)
--- NOTE | 2016-12-07 19:12 | HHI.CCPN ---
Subjective Remarks/Hospital Course 65-year-old female with past medical history of stroke for which she at one point was on warfarin but had been discontinued. She was was admitted to [facility] emergency department 11/04/16 with difficulty getting her thoughts together. She was found to have multifocal nonhemorrhagic infarcts in left frontal and parietal regions, right frontal lobe and history of moyamoya disease. She was initially awake and following commands with weakness of RLE and some aphasia. She was transferred to [facility] where he had an cerebral angiogram consistent with moyamoya. There were plans to perform extracranial/intracranial bypass. However she had a seizure and ended up being intubated for status either 11/09 or 11/10.. She was found to have a new right frontal infarct area and she was started on Dilantin and Keppra and it was felt that she would not be a candidate for intervention. She has been intubated 9-10 days and apparently she has been tolerating C Pap trials to some extent but mental status prevents extubation. Treating team was discussing with family trach/PEG. Apparently family requested transfer back to [place] because they live locally here and wanted her closer to home. Apparently she had been sedated initially with propofol but then was on Precedex from 11/12-11/14. Appears she has been off all continuous sedation since 11/14. Subjective 11/19 No acute events overnight. Palliative care has been consult at family meeting is scheduled for today. After family meeting will will discuss placement of tracheostomy and/or and PEG, based on family's wishes. 11/20: Afebrile .No change in neurological status. Consult placed for tracheostomy and PEG placement as requested by family yesterday. 11/21: Afebrile. Tracheostomy plan for some time next week with general surgery , will try to coordinate with GI for PEG placement. 11/22 No acute events overnight. FOr PEG tube placement today. Afebrile. On no sedation. 11/23 Patient remains intubated on no sedation s/p PEG tube placement yesterday for trach today. Afebrile. 11/24 No acute events overnight. For trach today. Afebrile. 11/25 Patient s/p trach yesterday had an episode of emesis overnight and tube feeds placed on hold. Afebrile. 11/26 Patient is on ventilator via trach tolerated tube feeds during day however she had another episode of emesis overnight and tube feeds placed on hold. 11/27 Patient noted to have bloody secretions with suctioning and around trach site. Spiked fever with : 101.3 at 3am. Tolerated CPAP x 4 hrs and TP 2.5 hrs yesterday. 11/28 No acute events overnight. Afebrile. Tolerated CPAP x 2 hrs yesterday. Bloody secretions resolved. Afebrile. 11/29 Patient remains on ventilator via trach on sedation tolerating CPAP trials. 11/30 Patient spiked fever with T: 101.0 last night. On ventilator via trach. Tolerating tube feeds. 12/01: Remains on mechanical ventilation via tracheostomy. 12/02: Remains encephalopathic, on mechanical ventilation via tracheostomy. Tolerating tube feeds. Off all sedation. 12/03: Remains encephalopathic, on mechanical ventilation via tracheostomy. Remains off all sedation. Tolerating PEG feeds 12/04: Opens eyes however remains encephalopathic and not following commands. On mechanical ventilation via tracheostomy. Tolerated TPs during daytime yesterday. Tolerating PEG feeds. 12/05: Remains encephalopathic, on mech vent via trach. Daily C Pap trials. 12/06: Remains encephalopathic. Has spontaneous eye opening however not tracking. Remains on mechanical ventilation via tracheostomy. Daily C Pap trials ongoing. 12/07: Remains encephalopathic. On mechanical ventilation via tracheostomy. Daily C Pap trials. Objective Vital Signs Date Time Temp Pulse Resp B/P Pulse Ox O2 Delivery O2 Flow Rate FiO2 12/07/16 18:00 89 12/07/16 16:06 100 35 12/07/16 16:00 98.5 18 135/65 12/03/16 12:38 T-piece 6.00 Intake and Output 12/06/16 12/06/16 12/07/16 08:00 16:00 00:00 Intake Total 513 ml 981 ml 707 ml Output Total 300 ml 1425 ml 550 ml Balance 213 ml -444 ml 157 ml Result Diagram: 12/06/16 0531 12/06/16 0531 Imaging Last Impressions Chest X-Ray 11/27/16 0000 Signed Impressions: Service Date/Time: Sunday, November 27, 2016 08:27 - CONCLUSION: Left base atelectasis, consolidation and suspected effusion. Nghia Camacho MD Abdomen X-Ray 11/26/16 0000 Signed Impressions: Service Date/Time: Saturday, November 26, 2016 10:18 - CONCLUSION: Distended stomach otherwise nonspecific abdomen. KKristin Murillo MD Brain MRI 11/18/16 0825 Signed Impressions: Service Date/Time: November 18:14 - CONCLUSION: Large evolving bifrontal infarctions Nghia Pacheco MD Objective Remarks GENERAL: Patient is 65 yo on ventilator via trach SKIN: Warm and dry. HEAD: Normocephalic. EYES: No scleral icterus. No injection or drainage. NECK: Supple, trachea midline. No JVD or lymphadenopathy. Trach in place CARDIOVASCULAR: Regular rate and rhythm without murmurs, gallops, or rubs. RESPIRATORY: Breath sounds equal bilaterally. No accessory muscle use. GASTROINTESTINAL: Abdomen soft, non-tender, nondistended. PEG tube in place MUSCULOSKELETAL: No cyanosis, or edema. Neuro: Opens eyes however remains encephalopathic and does not follow commands. Date of Insertion: Nov 19, 2016 A/P Assessment and Plan NEURO: Bifrontal strokes Moyamoya Seizures Keppra 1500 mg IV twice a day Continue ASA Continue bromocriptine 2.5 mg by mouth twice a day Continue atorvastatin 40 mg by mouth daily EEG-noted sharp spikes Neurology is following Has been evaluated tertiary care center and felt to not be a candidate for further intervention. RESP: Respiratory failure COPD Continue with vent support keep sat >92% Bronchodilators, ICU vent bundle. SBT trials as nikolas s/p trach 11/24. Pulm toilet, trach care CXR 11/27 Left base atelectasis vs consolidation CV: Coronary artery disease with prior myocardial infarction Hypertension Monitor HR and BP keep MAP>65mmHg. Continue with ASA, statin GI: Dysphagia s/p PEG tube placement 11/22 Continue TF(Jevity 1.5 with goal rate 60 mL per hour) monitor for residuals On Protonix 40mg IV daily for GI prophylaxis Monitor LFT's ( resolved) US liver: Cholelithiasis KUB abdomen : Distended stomach Bowel regimen with Colace, Senna , Marcela lax, Lactulose. : Monitor renal function, I/O's, electrolytes replacement per protocol. On Bumex 1mg daily. ID: 11/25 Sputum cx: Staph species, Kleb pneumonia both sensitive to Rocephin 11/25 Urine: Kleb pneumonia Follow up on BC from 11/27- NGTD on Rocephin 1gram daily. Monitor for signs and symptoms of infection. BC x 2 sets drawn on 11/30 with no growth, sputum and urine cx 11/29 growing klebsiella HEME: Monitor CBC ENDO: Euglycemic PROPH: Hold DVT prophylaxis per neurology secondary to bilateral CVAs. Protonix 40 mg IV daily for stress ulcer prophylaxis. ACCESS: Peripheral IV providing adequate access at this time. Palliative care medicine is following Case management eval for LTAC placement. Level 3 Reid Mcbride MD December 07, 2016 19:12
[2016-12-08] VITALS (22 sets, daily range): BP systolic 110–141; BP diastolic 55–78; PULSE 59–98; RESP 16–49; TEMP 98.6–99.4; O2SAT 96–100
[2016-12-08] MEDS: INSULIN NovoLIN REGULAR SUPPLEMENTAL SCALE SQ SCH ×4 (01:41→20:00)
[2016-12-08] MEDS: CHLORHEXIDINE GLUCONATE 2 % 1 PACK (2 CLOTHS) TOP SCH (04:00)
[2016-12-08] MEDS: CHLORHEXIDINE 0.12% (ORAL KIT) 15 ML CUP MT SCH ×2 (07:16→21:12)
[2016-12-08] MEDS: DOCUSATE SODIUM 100 MG/10 ML UDC PO SCH ×2 (08:48→21:13)
[2016-12-08] MEDS: FOLIC ACID 1 MG TAB OG-TUBE SCH (08:48)
[2016-12-08] MEDS: levETIRAcetam 1000 MG INJ 100 ML IV SCH ×2 (08:48→21:13)
[2016-12-08] MEDS: ATORVASTATIN 40 MG TAB PO SCH (08:48)
[2016-12-08] MEDS: ASPIRIN 81 MG CHEW TAB NG SCH (08:48)
[2016-12-08] MEDS: BUMETANIDE INJ 1 MG/4 ML VIAL IV PUSH SCH (08:48)
[2016-12-08] MEDS: BROMOCRIPTINE MESYLATE 2.5 MG TAB OG-TUBE SCH ×2 (08:48→21:13)
[2016-12-08] MEDS: LACTULOSE SYRUP 20 GM/30 ML CUP PO SCH ×2 (08:49→21:13)
[2016-12-08] MEDS: SODIUM CHLORIDE 0.9% FLUSH 10 ML FLUSH IV FLUSH SCH ×2 (08:49→21:00)
[2016-12-08] MEDS: POLYETHYLENE GLYCOL 17 GM PKG PO SCH (08:49)
[2016-12-08] MEDS: SENNOSIDES SYRUP 8.8 MG/5 ML CUP PO SCH ×2 (08:49→21:13)
[2016-12-08] MEDS: PANTOPRAZOLE SODIUM 40 MG VIAL IV SCH (08:49)
[2016-12-08] MEDS: levETIRAcetam INJ 500 MG in SODIUM CHLORIDE 0.9% INJ 100 ML IV SCH ×2 (08:52→21:14)
[2016-12-08] MEDS: cefTRIAXone INJ 1,000 MG in SODIUM CHLORIDE 0.9% INJ 100 ML IV SCH (10:12)
--- NOTE | 2016-12-08 11:27 | HHI.HCPN ---
Reason for visit a. To assist with evaluation and management of symptoms including: encephalopathy, seizure, dyspnea. b. To assist medical decision maker(s) with: better understanding of current medical conditions; weighing benefits/burdens of medical treatment options; making medical treatment decisions. . Subjective/Interval History Pt seen to follow up on comfort , provide update to family. She is s/p trach/PEG. Tolerating CPAP trials alt with T piece. Has had no sedation for > week. Tolerating TF. + Bowel movements, last BM 12/06, x4. Labs stable/unremarkable, last labs 12/06. No new imaging. Will need termite control technician placement- coverage pending per CM. No improvement or changed in neuro status. Patient seen in room, No visitors present. Radio is on. On T piece 35% fio2. Initially w eyes closed, opens eyes slightly to verbal stimuli. Keeps eyes open during stimuli. Does not track examiner. does not follow commands, no withdrawal to pain stimuli on 4 extremities. No apparent distress. Following exam call to pt dtr to provide update.She indicates pt seems to be opening eyes much more appears alert when they visit, and seems to track them at times. Review current condition, underlying condition, prognosis, current assessment/tx in place. She has questions RE termite control technician placement, review pt expected to remain dependent for all care, LTAC placement would be pending financial coverage for, may anticipate xfer to medical floor out of icu in coming days if does not require CPAP/mech vent and remains stable. All questions answered. She is appreciative of weekly updates. . Advance Directives Living Will: Never completed Health Care Surrogate: Never completed Durable Power of Take Away Worker: Never completed Advance Directive Specifics Health Care Surrogate(s): No known written advance directives. Patient currently incapacitated to make her healthcare decisions. According to [place] statutes health care proxy decision-making falls to the majority of adult children. Patient has 3 children. . Objective Vital Signs Date Time Temp Pulse Resp B/P Pulse Ox O2 Delivery O2 Flow Rate FiO2 12/08/16 10:00 96 12/08/16 08:06 100 35 12/08/16 08:00 35 12/08/16 08:00 96 12/08/16 08:00 99.4 97 24 137/67 98 12/08/16 06:00 93 12/08/16 04:22 100 35 12/08/16 04:00 35 12/08/16 04:00 95 12/08/16 04:00 98.6 95 24 128/69 100 12/08/16 02:00 93 12/08/16 00:45 100 35 12/08/16 00:00 99.0 92 36 125/70 100 12/08/16 00:00 92 12/08/16 00:00 35 12/07/16 22:00 91 12/07/16 21:11 100 35 12/07/16 20:00 92 12/07/16 20:00 35 12/07/16 20:00 98.9 92 20 131/65 100 12/07/16 18:00 89 12/07/16 16:06 100 35 12/07/16 16:00 98.5 89 18 135/65 100 12/07/16 16:00 35 12/07/16 16:00 89 12/07/16 14:00 85 12/07/16 12:07 35 12/07/16 12:06 98.8 88 17 125/60 100 12/07/16 12:05 88 Intake & Output 12/08/16 12/08/16 07:00 19:00 Intake Total 1158 ml Output Total 1300 ml Balance -142 ml Intake Oral 0 ml IV Total 285 ml Tube Feeding 753 ml Other 120 ml Output Urine Total 1300 ml # Bowel Movements 0 Physical Exam CONSTITUTIONAL/GENERAL: critically ill patient, lethargic, on T piece TUBES/LINES/DRAINS: PIV LALI extremity, Tracheostomy, PEG, Brown, SCDs, multipodus boots. CARDIOVASCULAR: Regular rate and rhythm RESPIRATORY/CHEST: trach midline. Symmetric, unlabored respirations via trach to 35% fio2 T piece . Clear to auscultation. GASTROINTESTINAL: Abdomen soft, nondistended. Bowel sounds active. +PEG LUQ site asymptomatic, +TF infusing GENITOURINARY: Without palpable bladder distension. Brown catheter in place- clear dark yellow urine. NEUROLOGICAL: Slight eye opening verbal stimuli--keeps eyes open w any stimuli. Does not track examiner. Extremities with no withdrawal to pain. PSYCHIATRIC: off sedation > 1 week. Limited clinical assessment, non-responsive , no signs of anxiety . Diagnostic Tests Laboratory Laboratory Tests Test 12/06/16 05:31 White Blood Count 12.3 TH/MM3 (4.0-11.0) Red Blood Count 3.19 MIL/MM3 (4.00-5.30) Hemoglobin 8.6 GM/DL (11.6-15.3) Hematocrit 26.1 % (35.0-46.0) Mean Corpuscular Volume 81.8 FL (80.0-100.0) Mean Corpuscular Hemoglobin 27.0 PG (27.0-34.0) Mean Corpuscular Hemoglobin 33.0 % Concent (32.0-36.0) Red Cell Distribution Width 15.2 % (11.6-17.2) Platelet Count 371 TH/MM3 (150-450) Mean Platelet Volume 8.2 FL (7.0-11.0) Neutrophils (%) (Auto) 83.4 % (16.0-70.0) Lymphocytes (%) (Auto) 8.7 % (9.0-44.0) Monocytes (%) (Auto) 3.4 % (0.0-8.0) Eosinophils (%) (Auto) 4.1 % (0.0-4.0) Basophils (%) (Auto) 0.4 % (0.0-2.0) Neutrophils # (Auto) 10.2 TH/MM3 (1.8-7.7) Lymphocytes # (Auto) 1.1 TH/MM3 (1.0-4.8) Monocytes # (Auto) 0.4 TH/MM3 (0-0.9) Eosinophils # (Auto) 0.5 TH/MM3 (0-0.4) Basophils # (Auto) 0.0 TH/MM3 (0-0.2) CBC Comment DIFF FINAL Differential Comment Sodium Level 136 MEQ/L (136-145) Potassium Level 4.2 MEQ/L (3.5-5.1) Chloride Level 96 MEQ/L (98-107) Carbon Dioxide Level 29.9 MEQ/L (21.0-32.0) Anion Gap 10 MEQ/L (5-15) Blood Urea Nitrogen 19 MG/DL (7-18) Creatinine 0.48 MG/DL (0.50-1.00) Estimat Glomerular Filtration 131 ML/MIN Rate (>89) Random Glucose 133 MG/DL (74-106) Calcium Level 8.4 MG/DL (8.5-10.1) Magnesium Level 2.2 MG/DL (1.5-2.5) Total Bilirubin 0.3 MG/DL (0.2-1.0) Aspartate Amino Transf 42 U/L (15-37) (AST/SGOT) Alanine Aminotransferase 49 U/L (10-53) (ALT/SGPT) Alkaline Phosphatase 118 U/L (45-117) Total Protein 6.8 GM/DL (6.4-8.2) Albumin 2.1 GM/DL (3.4-5.0) Result Diagram: 12/06/1631 12/06/1631 Imaging Last Impressions Chest X-Ray 12/01/16 0000 Signed Impressions: Service Date/Time: Thursday, December 01, 2016 02:37 - CONCLUSION: Improving left lower lung infiltrate. Clif Jacobo MD Abdomen X-Ray 11/26/16 0000 Signed Impressions: Service Date/Time: Saturday, November 26, 2016 10:18 - CONCLUSION: Distended stomach otherwise nonspecific abdomen. KKristin Murillo MD Brain MRI 11/18/16 0825 Signed Impressions: Service Date/Time: November 18:14 - CONCLUSION: Large evolving bifrontal infarctions Nghia Pacheco MD Assessment and Plan Disease Oriented Problem List: (1) CVA (cerebral vascular accident) (2) Moyamoya disease (3) Seizure Comment: On Keppra . (4) Generalized weakness Symptom Scale: (1) Seizure 0-10 Scale: 0 (2) Generalized weakness 0-10 Scale: Unable to quantify (3) Dyspnea 0-10 Scale: Unable to quantify Comment: On mechanical ventilation Pertinent Non-Medical Issues Psychosocial: Single. Has 2 daughters and one son. Spiritual: unknown. Legal: Ethical issues impacting care: No known concerns at this time. . Important Contacts * Maria Del Carmen Rivas, daughter: [phone] * Marcelo Rivas, daughter: [phone] * Dwight Rivas, son: [phone] . Prognosis MRI/EEG reviewed by neurology, prognosis felt to be poor, infarct noted to be huge. Patient may wake some in 6 months. Given extent of infarct, I would not expect patient to regain significant functional or cognitive status. Code Status: Full Code Plan * Patient is incapacitated to make healthcare decisions. No known written advanced directives. According to [place] Statutes, health care proxy decision making falls to majority of adult children. Patient has 2 daughters (Marcelo Joyce) and 1 son (Dwight). * CODE STATUSFULL CODE * GOALS: prev met with 2/3 family members. Goals have been aggressive, they verbalized they want to cont all available treatments to give pt more time for possible recovery. Update provided to daughter 12/08/16, goals remain aggressive. * SYMPTOMS: Seizure: hx seizures 2/2 CVA --patient remains on Keppra ; no visualized sz reported Weakness: due to prolonged hospital course, bilateral infarcts. Not regaining any purposeful or spontaneous movements as of yet. Dyspnea: remains on mech vent. Off sedation. tolerating CPAP zohaib with T Piece . No signs of tachypnea now, will continue to monitor. Encephalopathy: minimally responsive at this time off sedation > 1 week. Will monitor. Constipation: resolved. Last BM 12/06 x4 * Palliative care will continue to follow during hospital course as condition evolves, to assist patient/decision-maker with understanding of medical conditions, weighing benefits/burdens of treatment options, for clarification of goals of treatment. Additionally will assist with any symptoms of palliative concern. . Attestation To help prompt me to consider important information that might be impacting today's encounter and assessment, information from prior notes written by myself or my colleagues may have been "brought forward" into today's note. My signature on this note, however, is an attestation that I personally performed the exam, history, and/or decision-making noted today, and, unless otherwise indicated, the interactions with patient, family, and staff as well as the review of records all occurred today. I also attest that the listed assessment and stated plan reflect my best clinical judgment today based on the combination of historical information, prior notes, and today's exam/ interactions. When time spent is documented, it refers only to time spent today by the signer, or if indicated, combined time spent today by collaborating physician/nurse practitioner. Yuridia Almeida December 08, 2016 11:27
--- NOTE | 2016-12-08 20:36 | HHI.CCPN ---
Subjective Remarks/Hospital Course 65-year-old female with past medical history of stroke for which she at one point was on warfarin but had been discontinued. She was was admitted to [facility] emergency department 11/04/16 with difficulty getting her thoughts together. She was found to have multifocal nonhemorrhagic infarcts in left frontal and parietal regions, right frontal lobe and history of moyamoya disease. She was initially awake and following commands with weakness of RLE and some aphasia. She was transferred to [facility] where he had an cerebral angiogram consistent with moyamoya. There were plans to perform extracranial/intracranial bypass. However she had a seizure and ended up being intubated for status either 11/09 or 11/10.. She was found to have a new right frontal infarct area and she was started on Dilantin and Keppra and it was felt that she would not be a candidate for intervention. She has been intubated 9-10 days and apparently she has been tolerating C Pap trials to some extent but mental status prevents extubation. Treating team was discussing with family trach/PEG. Apparently family requested transfer back to [place] because they live locally here and wanted her closer to home. Apparently she had been sedated initially with propofol but then was on Precedex from 11/12-11/14. Appears she has been off all continuous sedation since 11/14. Subjective 11/19 No acute events overnight. Palliative care has been consult at family meeting is scheduled for today. After family meeting will will discuss placement of tracheostomy and/or and PEG, based on family's wishes. 11/20: Afebrile .No change in neurological status. Consult placed for tracheostomy and PEG placement as requested by family yesterday. 11/21: Afebrile. Tracheostomy plan for some time next week with general surgery , will try to coordinate with GI for PEG placement. 11/22 No acute events overnight. FOr PEG tube placement today. Afebrile. On no sedation. 11/23 Patient remains intubated on no sedation s/p PEG tube placement yesterday for trach today. Afebrile. 11/24 No acute events overnight. For trach today. Afebrile. 11/25 Patient s/p trach yesterday had an episode of emesis overnight and tube feeds placed on hold. Afebrile. 11/26 Patient is on ventilator via trach tolerated tube feeds during day however she had another episode of emesis overnight and tube feeds placed on hold. 11/27 Patient noted to have bloody secretions with suctioning and around trach site. Spiked fever with : 101.3 at 3am. Tolerated CPAP x 4 hrs and TP 2.5 hrs yesterday. 11/28 No acute events overnight. Afebrile. Tolerated CPAP x 2 hrs yesterday. Bloody secretions resolved. Afebrile. 11/29 Patient remains on ventilator via trach on sedation tolerating CPAP trials. 11/30 Patient spiked fever with T: 101.0 last night. On ventilator via trach. Tolerating tube feeds. 12/01: Remains on mechanical ventilation via tracheostomy. 12/02: Remains encephalopathic, on mechanical ventilation via tracheostomy. Tolerating tube feeds. Off all sedation. 12/03: Remains encephalopathic, on mechanical ventilation via tracheostomy. Remains off all sedation. Tolerating PEG feeds 12/04: Opens eyes however remains encephalopathic and not following commands. On mechanical ventilation via tracheostomy. Tolerated TPs during daytime yesterday. Tolerating PEG feeds. 12/05: Remains encephalopathic, on mech vent via trach. Daily C Pap trials. 12/06: Remains encephalopathic. Has spontaneous eye opening however not tracking. Remains on mechanical ventilation via tracheostomy. Daily C Pap trials ongoing. 12/07: Remains encephalopathic. On mechanical ventilation via tracheostomy. Daily C Pap trials. 12/08: Remains encephalopathic, on mechanical ventilation via tracheostomy. No significant neurologic improvement. Daily C Pap trials ongoing. Objective Vital Signs Date Time Temp Pulse Resp B/P Pulse Ox O2 Delivery O2 Flow Rate FiO2 12/08/16 18:00 93 25 127/65 99 12/08/16 16:00 98.6 12/08/16 10:30 T-Piece 40 Intake and Output 12/07/16 12/07/16 12/08/16 08:00 16:00 00:00 Intake Total 583 ml 907 ml 698 ml Output Total 350 ml 1150 ml 900 ml Balance 233 ml -243 ml -202 ml Result Diagram: 12/06/16 0531 12/06/16 0531 Imaging Last Impressions Chest X-Ray 11/27/16 0000 Signed Impressions: Service Date/Time: Sunday, November 27, 2016 08:27 - CONCLUSION: Left base atelectasis, consolidation and suspected effusion. Nghia Camacho MD Abdomen X-Ray 11/26/16 0000 Signed Impressions: Service Date/Time: Saturday, November 26, 2016 10:18 - CONCLUSION: Distended stomach otherwise nonspecific abdomen. Jackson Murillo MD Brain MRI 11/18/16 0825 Signed Impressions: Service Date/Time: November 18:14 - CONCLUSION: Large evolving bifrontal infarctions Nghia Pacheco MD Objective Remarks GENERAL: Patient is 65 yo on ventilator via trach SKIN: Warm and dry. HEAD: Normocephalic. EYES: No scleral icterus. No injection or drainage. NECK: Supple, trachea midline. No JVD or lymphadenopathy. Trach in place CARDIOVASCULAR: Regular rate and rhythm without murmurs, gallops, or rubs. RESPIRATORY: Breath sounds equal bilaterally. No accessory muscle use. GASTROINTESTINAL: Abdomen soft, non-tender, nondistended. PEG tube in place MUSCULOSKELETAL: No cyanosis, or edema. Neuro: Opens eyes however remains encephalopathic and does not follow commands. Date of Insertion: Nov 19, 2016 A/P Assessment and Plan NEURO: Bifrontal strokes Moyamoya Seizures Keppra 1500 mg IV twice a day Continue ASA Continue bromocriptine 2.5 mg by mouth twice a day Continue atorvastatin 40 mg by mouth daily EEG-noted sharp spikes Neurology is following Has been evaluated tertiary care center and felt to not be a candidate for further intervention. RESP: Respiratory failure COPD Continue with vent support keep sat >92% Bronchodilators, ICU vent bundle. SBT trials as nikolas s/p trach 11/24. Pulm toilet, trach care CXR 11/27 Left base atelectasis vs consolidation CV: Coronary artery disease with prior myocardial infarction Hypertension Monitor HR and BP keep MAP>65mmHg. Continue with ASA, statin GI: Dysphagia s/p PEG tube placement 11/22 Continue TF(Jevity 1.5 with goal rate 60 mL per hour) monitor for residuals On Protonix 40mg IV daily for GI prophylaxis Monitor LFT's ( resolved) US liver: Cholelithiasis KUB abdomen : Distended stomach Bowel regimen with Colace, Senna , Marcela lax, Lactulose. : Monitor renal function, I/O's, electrolytes replacement per protocol. On Bumex 1mg daily. ID: 11/25 Sputum cx: Staph species, Kleb pneumonia both sensitive to Rocephin 11/25 Urine: Kleb pneumonia Follow up on BC from 11/27- NGTD on Rocephin 1gram daily. Monitor for signs and symptoms of infection. BC x 2 sets drawn on 11/30 with no growth, sputum and urine cx 11/29 growing klebsiella HEME: Monitor CBC ENDO: Euglycemic PROPH: Hold DVT prophylaxis per neurology secondary to bilateral CVAs. Protonix 40 mg IV daily for stress ulcer prophylaxis. ACCESS: Peripheral IV providing adequate access at this time. Palliative care medicine is following Case management eval for LTAC placement. Level 3 Reid Mcbride MD December 08, 2016 20:36
[2016-12-09] VITALS (19 sets, daily range): BP systolic 120–155; BP diastolic 63–89; PULSE 83–100; RESP 21–30; TEMP 97.8–98.7; O2SAT 93–100
[2016-12-09] MEDS: INSULIN NovoLIN REGULAR SUPPLEMENTAL SCALE SQ SCH ×4 (02:00→19:30)
[2016-12-09] MEDS: CHLORHEXIDINE GLUCONATE 2 % 1 PACK (2 CLOTHS) TOP SCH (04:00)
[2016-12-09 04:55] LABS: HEMATOCRIT 27.1 % (35.0-46.0); MEAN CELL VOLUME 80.8 FL (80.0-100.0); MEAN CORPUSCULAR HEMOGLOBIN 26.1 PG (27.0-34.0); MEAN CORPUSCULAR HGB CONC 32.3 % (32.0-36.0); PLATELET COUNT 413 TH/MM3 (150-450); RED BLOOD COUNT 3.35 MIL/MM3 (4.00-5.30); RED CELL DISTRIBUTION WIDTH 15.4 % (11.6-17.2); WHITE BLOOD COUNT 10.6 TH/MM3 (4.0-11.0)
[2016-12-09 05:01] LABS: HEMO FLAGS AUTO DIFF
[2016-12-09 05:15] LABS: ALKALINE PHOSPHATASE 137 U/L (45-117); ALT (GPT) 54 U/L (10-53); ANION GAP 9 MEQ/L (5-15); AST (GOT) 45 U/L (15-37); BICARBONATE 30.2 MEQ/L (21.0-32.0); BLOOD UREA NITROGEN 20 MG/DL (7-18); CHLORIDE 98 MEQ/L (98-107); GLOMERULAR FILTRATION RATE 144 ML/MIN (>89); MAGNESIUM 2.2 MG/DL (1.5-2.5); POTASSIUM 4.4 MEQ/L (3.5-5.1); SODIUM (NA) 137 MEQ/L (136-145); TOTAL BILIRUBIN ADULT 0.4 MG/DL (0.2-1.0)
[2016-12-09 07:23] LABS: BANDS 8 % (0-6); EOSINOPHILS 4 % (0-4); NEUTROPHIL # MANUAL DIFF 8.6 TH/MM3 (1.8-7.7); POLYS (SEG NEUTROPHILS) 73 % (16-70); WBC DIFF SAMPLE 100
[2016-12-09 07:24] LABS: PLATELET ESTIMATE SMEAR HIGH (NORMAL); PLATELET MORPHOLOGY NORMAL (NORMAL); SCAN/DIFF FINAL DIFF MANUAL
[2016-12-09] MEDS: CHLORHEXIDINE 0.12% (ORAL KIT) 15 ML CUP MT SCH ×2 (07:26→21:39)
[2016-12-09] MEDS: ATORVASTATIN 40 MG TAB PO SCH (11:47)
[2016-12-09] MEDS: ASPIRIN 81 MG CHEW TAB NG SCH (11:47)
[2016-12-09] MEDS: BROMOCRIPTINE MESYLATE 2.5 MG TAB OG-TUBE SCH ×2 (11:47→21:36)
[2016-12-09] MEDS: FOLIC ACID 1 MG TAB OG-TUBE SCH (11:47)
[2016-12-09] MEDS: levETIRAcetam 1000 MG INJ 100 ML IV SCH ×2 (11:48→21:36)
[2016-12-09] MEDS: PANTOPRAZOLE SODIUM 40 MG VIAL IV SCH (11:48)
[2016-12-09] MEDS: BUMETANIDE INJ 1 MG/4 ML VIAL IV PUSH SCH (11:48)
[2016-12-09] MEDS: SENNOSIDES SYRUP 8.8 MG/5 ML CUP PO SCH ×2 (11:48→21:36)
[2016-12-09] MEDS: LACTULOSE SYRUP 20 GM/30 ML CUP PO SCH ×2 (11:48→21:36)
[2016-12-09] MEDS: DOCUSATE SODIUM 100 MG/10 ML UDC PO SCH ×2 (11:48→21:36)
[2016-12-09] MEDS: POLYETHYLENE GLYCOL 17 GM PKG PO SCH (11:49)
[2016-12-09] MEDS: SODIUM CHLORIDE 0.9% FLUSH 10 ML FLUSH IV FLUSH SCH ×2 (11:49→21:00)
[2016-12-09] MEDS: cefTRIAXone INJ 1,000 MG in SODIUM CHLORIDE 0.9% INJ 100 ML IV SCH (11:49)
[2016-12-09] MEDS: levETIRAcetam INJ 500 MG in SODIUM CHLORIDE 0.9% INJ 100 ML IV SCH ×2 (11:49→21:36)
--- NOTE | 2016-12-09 17:50 | HHI.CCPN ---
Subjective Remarks/Hospital Course 65-year-old female with past medical history of stroke for which she at one point was on warfarin but had been discontinued. She was was admitted to [facility] emergency department 11/04/16 with difficulty getting her thoughts together. She was found to have multifocal nonhemorrhagic infarcts in left frontal and parietal regions, right frontal lobe and history of moyamoya disease. She was initially awake and following commands with weakness of RLE and some aphasia. She was transferred to [facility] where he had an cerebral angiogram consistent with moyamoya. There were plans to perform extracranial/intracranial bypass. However she had a seizure and ended up being intubated for status either 11/09 or 11/10.. She was found to have a new right frontal infarct area and she was started on Dilantin and Keppra and it was felt that she would not be a candidate for intervention. She has been intubated 9-10 days and apparently she has been tolerating C Pap trials to some extent but mental status prevents extubation. Treating team was discussing with family trach/PEG. Apparently family requested transfer back to [place] because they live locally here and wanted her closer to home. Apparently she had been sedated initially with propofol but then was on Precedex from 11/12-11/14. Appears she has been off all continuous sedation since 11/14. Subjective 11/19 No acute events overnight. Palliative care has been consult at family meeting is scheduled for today. After family meeting will will discuss placement of tracheostomy and/or and PEG, based on family's wishes. 11/20: Afebrile .No change in neurological status. Consult placed for tracheostomy and PEG placement as requested by family yesterday. 11/21: Afebrile. Tracheostomy plan for some time next week with general surgery , will try to coordinate with GI for PEG placement. 11/22 No acute events overnight. FOr PEG tube placement today. Afebrile. On no sedation. 11/23 Patient remains intubated on no sedation s/p PEG tube placement yesterday for trach today. Afebrile. 11/24 No acute events overnight. For trach today. Afebrile. 11/25 Patient s/p trach yesterday had an episode of emesis overnight and tube feeds placed on hold. Afebrile. 11/26 Patient is on ventilator via trach tolerated tube feeds during day however she had another episode of emesis overnight and tube feeds placed on hold. 11/27 Patient noted to have bloody secretions with suctioning and around trach site. Spiked fever with : 101.3 at 3am. Tolerated CPAP x 4 hrs and TP 2.5 hrs yesterday. 11/28 No acute events overnight. Afebrile. Tolerated CPAP x 2 hrs yesterday. Bloody secretions resolved. Afebrile. 11/29 Patient remains on ventilator via trach on sedation tolerating CPAP trials. 11/30 Patient spiked fever with T: 101.0 last night. On ventilator via trach. Tolerating tube feeds. 12/01: Remains on mechanical ventilation via tracheostomy. 12/02: Remains encephalopathic, on mechanical ventilation via tracheostomy. Tolerating tube feeds. Off all sedation. 12/03: Remains encephalopathic, on mechanical ventilation via tracheostomy. Remains off all sedation. Tolerating PEG feeds 12/04: Opens eyes however remains encephalopathic and not following commands. On mechanical ventilation via tracheostomy. Tolerated TPs during daytime yesterday. Tolerating PEG feeds. 12/05: Remains encephalopathic, on mech vent via trach. Daily C Pap trials. 12/06: Remains encephalopathic. Has spontaneous eye opening however not tracking. Remains on mechanical ventilation via tracheostomy. Daily C Pap trials ongoing. 12/07: Remains encephalopathic. On mechanical ventilation via tracheostomy. Daily C Pap trials. 12/08: Remains encephalopathic, on mechanical ventilation via tracheostomy. No significant neurologic improvement. Daily C Pap trials ongoing. 12/09: Patient has been maintained on trach collar for greater than 24 hours. Mental status unchanged. Objective Vital Signs Date Time Temp Pulse Resp B/P Pulse Ox O2 Delivery O2 Flow Rate FiO2 12/09/16 16:00 91 12/09/16 16:00 98.7 23 122/66 98 12/09/16 07:38 T-piece 40 Intake and Output 12/08/16 12/08/16 12/09/16 08:00 16:00 00:00 Intake Total 460 ml 759 ml 717 ml Output Total 400 ml 2000 ml 500 ml Balance 60 ml -1241 ml 217 ml Result Diagram: 12/09/16 0420 12/09/16 0420 Imaging Last Impressions Chest X-Ray 11/27/16 0000 Signed Impressions: Service Date/Time: Sunday, November 27, 2016 08:27 - CONCLUSION: Left base atelectasis, consolidation and suspected effusion. Nghia Camacho MD Abdomen X-Ray 11/26/16 0000 Signed Impressions: Service Date/Time: Saturday, November 26, 2016 10:18 - CONCLUSION: Distended stomach otherwise nonspecific abdomen. Jackson Murillo MD Brain MRI 11/18/16 0825 Signed Impressions: Service Date/Time: November 18:14 - CONCLUSION: Large evolving bifrontal infarctions Nghia Pacheco MD Objective Remarks GENERAL: Patient is 65 yo on ventilator via trach SKIN: Warm and dry. HEAD: Normocephalic. EYES: No scleral icterus. No injection or drainage. NECK: Supple, trachea midline. No JVD or lymphadenopathy. Trach in place CARDIOVASCULAR: Regular rate and rhythm without murmurs, gallops, or rubs. RESPIRATORY: Breath sounds equal bilaterally. No accessory muscle use. GASTROINTESTINAL: Abdomen soft, non-tender, nondistended. PEG tube in place MUSCULOSKELETAL: No cyanosis, or edema. Neuro: Opens eyes however remains encephalopathic and does not follow commands. Urinary Catheter: Yes Date of Insertion: Nov 19, 2016 A/P Assessment and Plan NEURO: Bifrontal strokes Moyamoya Seizures Keppra 1500 mg IV twice a day Continue ASA Continue bromocriptine 2.5 mg by mouth twice a day Continue atorvastatin 40 mg by mouth daily EEG-noted sharp spikes Neurology is following Has been evaluated tertiary care center and felt to not be a candidate for further intervention. RESP: Respiratory failure COPD Continue with vent support keep sat >92% Bronchodilators, ICU vent bundle. SBT trials as nikolas s/p trach 11/24. Pulm toilet, trach care CXR 11/27 Left base atelectasis vs consolidation CV: Coronary artery disease with prior myocardial infarction Hypertension Monitor HR and BP keep MAP>65mmHg. Continue with ASA, statin GI: Dysphagia s/p PEG tube placement 11/22 Continue TF(Jevity 1.5 with goal rate 60 mL per hour) monitor for residuals On Protonix 40mg IV daily for GI prophylaxis Monitor LFT's ( resolved) US liver: Cholelithiasis KUB abdomen : Distended stomach Bowel regimen with Colace, Senna , Miralax, Lactulose. : Monitor renal function, I/O's, electrolytes replacement per protocol. On Bumex 1mg daily. ID: 11/[id number] Sputum cx: Staph species, Kleb pneumonia both sensitive to Rocephin 11/25 Urine: Kleb pneumonia Follow up on BC from 11/27- NGTD on Rocephin 1gram daily. Monitor for signs and symptoms of infection. BC x 2 sets drawn on 11/30 with no growth, sputum and urine cx 11/29 growing klebsiella HEME: Monitor CBC ENDO: Euglycemic PROPH: Hold DVT prophylaxis per neurology secondary to bilateral CVAs. Protonix 40 mg IV daily for stress ulcer prophylaxis. ACCESS: Peripheral IV providing adequate access at this time. Palliative care medicine is following Case management continued evaluation for LTAC placement. Level 3 Physician Nieves Childs MD December 09, 2016 17:50
[2016-12-10] VITALS (20 sets, daily range): BP systolic 111–154; BP diastolic 58–78; PULSE 81–99; RESP 18–25; TEMP 97.5–99.1; O2SAT 94–100
[2016-12-10] MEDS: INSULIN NovoLIN REGULAR SUPPLEMENTAL SCALE SQ SCH ×4 (01:37→19:48)
[2016-12-10] MEDS: CHLORHEXIDINE GLUCONATE 2 % 1 PACK (2 CLOTHS) TOP SCH (04:00)
[2016-12-10] MEDS: LACTULOSE SYRUP 20 GM/30 ML CUP PO SCH ×2 (09:00→20:02)
[2016-12-10] MEDS: ATORVASTATIN 40 MG TAB PO SCH (09:52)
[2016-12-10] MEDS: SENNOSIDES SYRUP 8.8 MG/5 ML CUP PO SCH ×2 (09:52→20:02)
[2016-12-10] MEDS: BROMOCRIPTINE MESYLATE 2.5 MG TAB OG-TUBE SCH ×2 (09:52→20:02)
[2016-12-10] MEDS: ASPIRIN 81 MG CHEW TAB NG SCH (09:52)
[2016-12-10] MEDS: DOCUSATE SODIUM 100 MG/10 ML UDC PO SCH ×2 (09:52→20:02)
[2016-12-10] MEDS: POLYETHYLENE GLYCOL 17 GM PKG PO SCH (09:52)
[2016-12-10] MEDS: FOLIC ACID 1 MG TAB OG-TUBE SCH (09:52)
[2016-12-10] MEDS: CHLORHEXIDINE 0.12% (ORAL KIT) 15 ML CUP MT SCH ×2 (09:53→19:48)
[2016-12-10] MEDS: PANTOPRAZOLE SODIUM 40 MG VIAL IV SCH (09:53)
[2016-12-10] MEDS: levETIRAcetam INJ 500 MG in SODIUM CHLORIDE 0.9% INJ 100 ML IV SCH ×2 (09:56→20:02)
[2016-12-10] MEDS: cefTRIAXone INJ 1,000 MG in SODIUM CHLORIDE 0.9% INJ 100 ML IV SCH (09:56)
[2016-12-10] MEDS: BUMETANIDE INJ 1 MG/4 ML VIAL IV PUSH SCH (09:56)
[2016-12-10] MEDS: SODIUM CHLORIDE 0.9% FLUSH 10 ML FLUSH IV FLUSH SCH ×2 (09:57→20:02)
[2016-12-10] MEDS: levETIRAcetam 1000 MG INJ 100 ML IV SCH ×2 (09:57→20:01)
--- NOTE | 2016-12-10 17:19 | HHI.CCPN ---
Subjective Remarks/Hospital Course 65-year-old female with past medical history of stroke for which she at one point was on warfarin but had been discontinued. She was was admitted to [facility] emergency department 11/04/16 with difficulty getting her thoughts together. She was found to have multifocal nonhemorrhagic infarcts in left frontal and parietal regions, right frontal lobe and history of moyamoya disease. She was initially awake and following commands with weakness of RLE and some aphasia. She was transferred to [facility] where he had an cerebral angiogram consistent with moyamoya. There were plans to perform extracranial/intracranial bypass. However she had a seizure and ended up being intubated for status either 11/09 or 11/10.. She was found to have a new right frontal infarct area and she was started on Dilantin and Keppra and it was felt that she would not be a candidate for intervention. She has been intubated 9-10 days and apparently she has been tolerating C Pap trials to some extent but mental status prevents extubation. Treating team was discussing with family trach/PEG. Apparently family requested transfer back to [place] because they live locally here and wanted her closer to home. Apparently she had been sedated initially with propofol but then was on Precedex from 11/12-11/14. Appears she has been off all continuous sedation since 11/14. Subjective 11/19 No acute events overnight. Palliative care has been consult at family meeting is scheduled for today. After family meeting will will discuss placement of tracheostomy and/or and PEG, based on family's wishes. 11/20: Afebrile .No change in neurological status. Consult placed for tracheostomy and PEG placement as requested by family yesterday. 11/21: Afebrile. Tracheostomy plan for some time next week with general surgery , will try to coordinate with GI for PEG placement. 11/22 No acute events overnight. FOr PEG tube placement today. Afebrile. On no sedation. 11/23 Patient remains intubated on no sedation s/p PEG tube placement yesterday for trach today. Afebrile. 11/24 No acute events overnight. For trach today. Afebrile. 11/25 Patient s/p trach yesterday had an episode of emesis overnight and tube feeds placed on hold. Afebrile. 11/26 Patient is on ventilator via trach tolerated tube feeds during day however she had another episode of emesis overnight and tube feeds placed on hold. 11/27 Patient noted to have bloody secretions with suctioning and around trach site. Spiked fever with : 101.3 at 3am. Tolerated CPAP x 4 hrs and TP 2.5 hrs yesterday. 11/28 No acute events overnight. Afebrile. Tolerated CPAP x 2 hrs yesterday. Bloody secretions resolved. Afebrile. 11/29 Patient remains on ventilator via trach on sedation tolerating CPAP trials. 11/30 Patient spiked fever with T: 101.0 last night. On ventilator via trach. Tolerating tube feeds. 12/01: Remains on mechanical ventilation via tracheostomy. 12/02: Remains encephalopathic, on mechanical ventilation via tracheostomy. Tolerating tube feeds. Off all sedation. 12/03: Remains encephalopathic, on mechanical ventilation via tracheostomy. Remains off all sedation. Tolerating PEG feeds 12/04: Opens eyes however remains encephalopathic and not following commands. On mechanical ventilation via tracheostomy. Tolerated TPs during daytime yesterday. Tolerating PEG feeds. 12/05: Remains encephalopathic, on mech vent via trach. Daily C Pap trials. 12/06: Remains encephalopathic. Has spontaneous eye opening however not tracking. Remains on mechanical ventilation via tracheostomy. Daily C Pap trials ongoing. 12/07: Remains encephalopathic. On mechanical ventilation via tracheostomy. Daily C Pap trials. 12/08: Remains encephalopathic, on mechanical ventilation via tracheostomy. No significant neurologic improvement. Daily C Pap trials ongoing. 12/09: Patient has been maintained on trach collar for greater than 24 hours. Mental status unchanged. 12/10: Patient continues on trach collar at 28% FiO2. Antibiotics discontinued. Repeat urine culture obtained. Objective Vital Signs Date Time Temp Pulse Resp B/P Pulse Ox O2 Delivery O2 Flow Rate FiO2 12/10/16 17:07 98.9 12/10/16 16:00 86 22 118/70 12/10/16 15:00 98 12/10/16 08:54 T-piece 6.00 28 Intake and Output 12/09/16 12/09/16 12/10/16 08:00 16:00 00:00 Intake Total 427 ml 607 ml 793 ml Output Total 550 ml 1850 ml 1400 ml Balance -123 ml -1243 ml -607 ml Result Diagram: 12/09/16 0420 12/09/16 0420 Imaging Last Impressions Chest X-Ray 11/27/16 0000 Signed Impressions: Service Date/Time: Sunday, November 27, 2016 08:27 - CONCLUSION: Left base atelectasis, consolidation and suspected effusion. Nghia Camacho MD Abdomen X-Ray 11/26/16 0000 Signed Impressions: Service Date/Time: Saturday, November 26, 2016 10:18 - CONCLUSION: Distended stomach otherwise nonspecific abdomen. Jackson Murillo MD Brain MRI 11/18/16 0825 Signed Impressions: Service Date/Time: November 18:14 - CONCLUSION: Large evolving bifrontal infarctions Nghia Pacheco MD Objective Remarks GENERAL: Patient is 65 yo on ventilator via trach SKIN: Warm and dry. HEAD: Normocephalic. EYES: No scleral icterus. No injection or drainage. NECK: Supple, trachea midline. No JVD or lymphadenopathy. Trach in place CARDIOVASCULAR: Regular rate and rhythm without murmurs, gallops, or rubs. RESPIRATORY: Breath sounds equal bilaterally. No accessory muscle use. GASTROINTESTINAL: Abdomen soft, non-tender, nondistended. PEG tube in place MUSCULOSKELETAL: No cyanosis, or edema. Neuro: Opens eyes however remains encephalopathic and does not follow commands. Urinary Catheter: Yes Date of Insertion: Nov 19, 2016 A/P Assessment and Plan NEURO: Bifrontal strokes Moyamoya Seizures Keppra 1500 mg IV twice a day Continue ASA Continue bromocriptine 2.5 mg by mouth twice a day Continue atorvastatin 40 mg by mouth daily EEG-noted sharp spikes Neurology is following Has been evaluated tertiary care center and felt to not be a candidate for further intervention. RESP: Respiratory failure COPD Continue with vent support keep sat >92% Bronchodilators, ICU vent bundle. SBT trials as nikolas s/p trach 11/24. Pulm toilet, trach care CXR 11/27 Left base atelectasis vs consolidation CV: Coronary artery disease with prior myocardial infarction Hypertension Monitor HR and BP keep MAP>65mmHg. Continue with ASA, statin GI: Dysphagia s/p PEG tube placement 11/22 Continue TF(Jevity 1.5 with goal rate 60 mL per hour) monitor for residuals On Protonix 40mg IV daily for GI prophylaxis Monitor LFT's ( resolved) US liver: Cholelithiasis KUB abdomen : Distended stomach Bowel regimen with Colace, Senna , Miralax, Lactulose. : Monitor renal function, I/O's, electrolytes replacement per protocol. On Bumex 1mg daily. ID: 11/25 Sputum cx: Staph species, Kleb pneumonia both sensitive to Rocephin 11/25 Urine: Kleb pneumonia Follow up on BC from 11/27- NGTD on Rocephin 1gram daily. Monitor for signs and symptoms of infection. Discontinued 12/10 BC x 2 sets drawn on 11/30 with no growth, sputum and urine cx 11/29 growing klebsiella Repeat urine culture HEME: Monitor CBC ENDO: Euglycemic PROPH: Hold DVT prophylaxis per neurology secondary to bilateral CVAs. Protonix 40 mg IV daily for stress ulcer prophylaxis. ACCESS: Peripheral IV providing adequate access at this time. Palliative care medicine is following Case management continued evaluation for LTAC placement. Level 3 Physician Nieves Childs MD December 10, 2016 17:19
[2016-12-11] VITALS (19 sets, daily range): BP systolic 111–138; BP diastolic 60–83; PULSE 80–97; RESP 17–22; TEMP 97.7–99; O2SAT 94–100
[2016-12-11] MEDS: CHLORHEXIDINE GLUCONATE 2 % 1 PACK (2 CLOTHS) TOP SCH (01:48)
[2016-12-11] MEDS: INSULIN NovoLIN REGULAR SUPPLEMENTAL SCALE SQ SCH ×4 (01:48→20:00)
[2016-12-11] MEDS: CHLORHEXIDINE 0.12% (ORAL KIT) 15 ML CUP MT SCH ×2 (08:00→20:39)
[2016-12-11] MEDS: LACTULOSE SYRUP 20 GM/30 ML CUP PO SCH ×2 (08:29→20:39)
[2016-12-11] MEDS: ASPIRIN 81 MG CHEW TAB NG SCH (08:29)
[2016-12-11] MEDS: DOCUSATE SODIUM 100 MG/10 ML UDC PO SCH ×2 (08:29→20:40)
[2016-12-11] MEDS: POLYETHYLENE GLYCOL 17 GM PKG PO SCH (08:29)
[2016-12-11] MEDS: BROMOCRIPTINE MESYLATE 2.5 MG TAB OG-TUBE SCH ×2 (08:30→20:39)
[2016-12-11] MEDS: PANTOPRAZOLE SODIUM 40 MG VIAL IV SCH (08:30)
[2016-12-11] MEDS: BUMETANIDE INJ 1 MG/4 ML VIAL IV PUSH SCH (08:30)
[2016-12-11] MEDS: SENNOSIDES SYRUP 8.8 MG/5 ML CUP PO SCH ×2 (08:30→20:40)
[2016-12-11] MEDS: FOLIC ACID 1 MG TAB OG-TUBE SCH (08:30)
[2016-12-11] MEDS: levETIRAcetam 1000 MG INJ 100 ML IV SCH ×2 (08:30→20:41)
[2016-12-11] MEDS: ATORVASTATIN 40 MG TAB PO SCH (08:30)
[2016-12-11] MEDS: levETIRAcetam INJ 500 MG in SODIUM CHLORIDE 0.9% INJ 100 ML IV SCH ×2 (08:31→20:41)
[2016-12-11] MEDS: SODIUM CHLORIDE 0.9% FLUSH 10 ML FLUSH IV FLUSH SCH ×2 (08:31→20:40)
--- NOTE | 2016-12-11 11:11 | HHI.PR ---
Subjective Remarks no change still Objective Vital Signs Date Time Temp Pulse Resp B/P Pulse Ox O2 Delivery O2 Flow Rate FiO2 12/11/16 08:37 98 T-piece 6.00 28 12/11/16 07:00 99 T-Piece 6.00 35 12/11/16 06:00 82 12/11/16 04:00 98.8 91 21 131/75 100 12/11/16 04:00 91 12/11/16 02:00 87 12/11/16 00:00 90 12/11/16 00:00 99.0 90 21 128/75 98 12/10/16 22:00 90 12/10/16 20:17 99 T-piece 28 12/10/16 20:00 99.1 95 22 123/67 95 12/10/16 20:00 95 12/10/16 19:00 94 T-Piece 35 12/10/16 18:00 85 20 122/58 94 12/10/16 18:00 93 12/10/16 17:07 98.9 12/10/16 17:00 93 22 135/73 12/10/16 16:00 86 22 118/70 12/10/16 16:00 86 22 118/70 12/10/16 15:00 87 20 123/74 98 12/10/16 14:00 90 12/10/16 14:00 88 24 132/70 96 12/10/16 13:00 81 18 125/59 97 12/10/16 12:00 98.1 12/10/16 12:00 95 12/10/16 12:00 82 18 120/65 95 I/O 12/10/16 12/10/16 12/10/16 12/11/16 12/11/16 12/11/16 07:00 15:00 23:00 07:00 15:00 23:00 Intake Total 617 ml 1146 ml 843 ml 532 ml Output Total 900 ml 1900 ml 1000 ml 500 ml Balance -283 ml -754 ml -157 ml 32 ml IV Total 100 ml 403 ml 332 ml 72 ml Tube Feeding 457 ml 503 ml 411 ml 400 ml Other 60 ml 240 ml 100 ml 60 ml Output Urine Total 900 ml 1900 ml 1000 ml 500 ml # Bowel Movements 1 0 0 Result Diagram: 12/09/16 0420 12/09/16 0420 Objective Remarks not following commands pupils = does moves eyes around a little no rxt threat no command following no change Assessment and Plan Assessment and Plan imp huge r frontal cva and inc size left frontal cva may eventually awaken in next 6 months eeg some left sharps stay on keppra no anticoag now due to size of cva px overall not great no change trached and pegged Terrence Flores MD December 11, 2016 11:11
--- NOTE | 2016-12-11 13:58 | HHI.CCPN ---
Subjective Remarks/Hospital Course 65-year-old female with past medical history of stroke for which she at one point was on warfarin but had been discontinued. She was was admitted to [facility] emergency department 11/04/16 with difficulty getting her thoughts together. She was found to have multifocal nonhemorrhagic infarcts in left frontal and parietal regions, right frontal lobe and history of moyamoya disease. She was initially awake and following commands with weakness of RLE and some aphasia. She was transferred to [facility] where he had an cerebral angiogram consistent with moyamoya. There were plans to perform extracranial/intracranial bypass. However she had a seizure and ended up being intubated for status either 11/09 or 11/10.. She was found to have a new right frontal infarct area and she was started on Dilantin and Keppra and it was felt that she would not be a candidate for intervention. She has been intubated 9-10 days and apparently she has been tolerating C Pap trials to some extent but mental status prevents extubation. Treating team was discussing with family trach/PEG. Apparently family requested transfer back to [place] because they live locally here and wanted her closer to home. Apparently she had been sedated initially with propofol but then was on Precedex from 11/12-11/14. Appears she has been off all continuous sedation since 11/14. Subjective 11/19 No acute events overnight. Palliative care has been consult at family meeting is scheduled for today. After family meeting will will discuss placement of tracheostomy and/or and PEG, based on family's wishes. 11/20: Afebrile .No change in neurological status. Consult placed for tracheostomy and PEG placement as requested by family yesterday. 11/21: Afebrile. Tracheostomy plan for some time next week with general surgery , will try to coordinate with GI for PEG placement. 11/22 No acute events overnight. FOr PEG tube placement today. Afebrile. On no sedation. 11/23 Patient remains intubated on no sedation s/p PEG tube placement yesterday for trach today. Afebrile. 11/24 No acute events overnight. For trach today. Afebrile. 11/25 Patient s/p trach yesterday had an episode of emesis overnight and tube feeds placed on hold. Afebrile. 11/26 Patient is on ventilator via trach tolerated tube feeds during day however she had another episode of emesis overnight and tube feeds placed on hold. 11/27 Patient noted to have bloody secretions with suctioning and around trach site. Spiked fever with : 101.3 at 3am. Tolerated CPAP x 4 hrs and TP 2.5 hrs yesterday. 11/28 No acute events overnight. Afebrile. Tolerated CPAP x 2 hrs yesterday. Bloody secretions resolved. Afebrile. 11/29 Patient remains on ventilator via trach on sedation tolerating CPAP trials. 11/30 Patient spiked fever with T: 101.0 last night. On ventilator via trach. Tolerating tube feeds. 12/01: Remains on mechanical ventilation via tracheostomy. 12/02: Remains encephalopathic, on mechanical ventilation via tracheostomy. Tolerating tube feeds. Off all sedation. 12/03: Remains encephalopathic, on mechanical ventilation via tracheostomy. Remains off all sedation. Tolerating PEG feeds 12/04: Opens eyes however remains encephalopathic and not following commands. On mechanical ventilation via tracheostomy. Tolerated TPs during daytime yesterday. Tolerating PEG feeds. 12/05: Remains encephalopathic, on mech vent via trach. Daily C Pap trials. 12/06: Remains encephalopathic. Has spontaneous eye opening however not tracking. Remains on mechanical ventilation via tracheostomy. Daily C Pap trials ongoing. 12/07: Remains encephalopathic. On mechanical ventilation via tracheostomy. Daily C Pap trials. 12/08: Remains encephalopathic, on mechanical ventilation via tracheostomy. No significant neurologic improvement. Daily C Pap trials ongoing. 12/09: Patient has been maintained on trach collar for greater than 24 hours. Mental status unchanged. 12/10: Patient continues on trach collar at 28% FiO2. Antibiotics discontinued. Repeat urine culture obtained. 12/11: No acute events overnight. Trach sutures removed today. The patient continues on trach collar 28%. Afebrile Objective Vital Signs Date Time Temp Pulse Resp B/P Pulse Ox O2 Delivery O2 Flow Rate FiO2 12/11/16 11:00 92 21 133/68 95 12/11/16 08:37 T-piece 6.00 28 12/11/16 04:00 98.8 Intake and Output 12/10/16 12/10/16 12/11/16 08:00 16:00 00:00 Intake Total 617 ml 1146 ml 843 ml Output Total 900 ml 1900 ml 1000 ml Balance -283 ml -754 ml -157 ml Result Diagram: 12/09/1641912/09/16419 Imaging Last Impressions Chest X-Ray 11/27/16 0000 Signed Impressions: Service Date/Time: Sunday, November 27, 2016 08:27 - CONCLUSION: Left base atelectasis, consolidation and suspected effusion. Nghia Camacho MD Abdomen X-Ray 11/26/16 0000 Signed Impressions: Service Date/Time: Saturday, November 26, 2016 10:18 - CONCLUSION: Distended stomach otherwise nonspecific abdomen. Jackson Murillo MD Brain MRI 11/18/16 0825 Signed Impressions: Service Date/Time: November 18:14 - CONCLUSION: Large evolving bifrontal infarctions Nghia Pacheco MD Objective Remarks BP 126/74 P 91 RR 20 O2 [id number]% GENERAL: Patient is 65 yo on ventilator via trach SKIN: Warm and dry. HEAD: Normocephalic. EYES: No scleral icterus. No injection or drainage. NECK: Supple, trachea midline. No JVD or lymphadenopathy. Trach in place CARDIOVASCULAR: Regular rate and rhythm without murmurs, gallops, or rubs. RESPIRATORY: Breath sounds equal bilaterally. No accessory muscle use. GASTROINTESTINAL: Abdomen soft, non-tender, nondistended. PEG tube in place MUSCULOSKELETAL: No cyanosis, or edema. Neuro: Opens eyes however remains encephalopathic and does not follow commands. Urinary Catheter: Yes Date of Insertion: Nov 19, 2016 A/P Assessment and Plan NEURO: Bifrontal strokes Moyamoya Seizures Keppra 1500 mg IV twice a day Continue ASA Continue bromocriptine 2.5 mg by mouth twice a day Continue atorvastatin 40 mg by mouth daily EEG-noted sharp spikes Neurology is following-Dr. Flores Has been evaluated tertiary care center and felt to not be a candidate for further intervention. RESP: Respiratory failure COPD Continue with vent support keep sat >92% Bronchodilators, ICU vent bundle s/p trach 11/24. Pulm toilet, trach care CXR 11/27 Left base atelectasis vs consolidation 12/09 -Trach collar 28% at 6 L/m CV: Coronary artery disease with prior myocardial infarction Hypertension Monitor HR and BP keep MAP>65mmHg. Continue with ASA, statin GI: Dysphagia s/p PEG tube placement 11/22 Continue TF(Jevity 1.5 with goal rate 60 mL per hour) monitor for residuals On Protonix 40mg IV daily for GI prophylaxis Monitor LFT's ( resolved) US liver: Cholelithiasis KUB abdomen : Distended stomach Bowel regimen with Colace, Senna , Miralax, Lactulose. BM 12/10 : Monitor renal function, I/O's, electrolytes replacement per protocol. On Bumex 1mg daily. ID: 11/25 Sputum cx: Staph species, Kleb pneumonia both sensitive to Rocephin 11/25 Urine: Kleb pneumonia Follow up on BC from 11/27- NGTD on Rocephin 1gram daily. Monitor for signs and symptoms of infection. Discontinued 12/10 BC x 2 sets drawn on 11/30 with no growth, sputum and urine cx 11/29 growing klebsiella 12/09 Repeat urine [id number] results HEME: Monitor CBC ENDO: Euglycemic PROPH: Hold DVT prophylaxis per neurology secondary to bilateral CVAs. Protonix 40 mg IV daily for stress ulcer prophylaxis. ACCESS: Peripheral IV's x 2. Palliative care medicine is following Case management continued evaluation for LTAC placement. Level 3 Physician Nieves Childs MD December 11, 2016 13:58
[2016-12-12] VITALS (14 sets, daily range): BP systolic 125–144; BP diastolic 62–74; PULSE 80–103; RESP 18–22; TEMP 98.1–99.1; O2SAT 96–100
[2016-12-12] MEDS: INSULIN NovoLIN REGULAR SUPPLEMENTAL SCALE SQ SCH ×4 (00:48→20:00)
[2016-12-12] MEDS: CHLORHEXIDINE GLUCONATE 2 % 1 PACK (2 CLOTHS) TOP SCH (04:00)
[2016-12-12 05:06] LABS: HEMATOCRIT 27.4 % (35.0-46.0); MEAN CELL VOLUME 80.1 FL (80.0-100.0); MEAN CORPUSCULAR HEMOGLOBIN 26.3 PG (27.0-34.0); MEAN CORPUSCULAR HGB CONC 32.8 % (32.0-36.0); PLATELET COUNT 556 TH/MM3 (150-450); RED BLOOD COUNT 3.42 MIL/MM3 (4.00-5.30); RED CELL DISTRIBUTION WIDTH 15.6 % (11.6-17.2); REVIEW FLAG FINAL; WHITE BLOOD COUNT 8.1 TH/MM3 (4.0-11.0)
[2016-12-12 05:27] LABS: BICARBONATE 33.6 MEQ/L (21.0-32.0); MAGNESIUM 2.3 MG/DL (1.5-2.5)
[2016-12-12] MEDS: levETIRAcetam 1000 MG INJ 100 ML IV SCH ×2 (08:17→21:05)
[2016-12-12] MEDS: PANTOPRAZOLE SODIUM 40 MG VIAL IV SCH (08:18)
[2016-12-12] MEDS: SENNOSIDES SYRUP 8.8 MG/5 ML CUP PO SCH ×2 (08:18→21:06)
[2016-12-12] MEDS: CHLORHEXIDINE 0.12% (ORAL KIT) 15 ML CUP MT SCH ×2 (08:18→21:07)
[2016-12-12] MEDS: SODIUM CHLORIDE 0.9% FLUSH 10 ML FLUSH IV FLUSH SCH ×2 (08:18→21:06)
[2016-12-12] MEDS: BROMOCRIPTINE MESYLATE 2.5 MG TAB OG-TUBE SCH ×2 (08:19→21:06)
[2016-12-12] MEDS: POLYETHYLENE GLYCOL 17 GM PKG PO SCH (08:19)
[2016-12-12] MEDS: levETIRAcetam INJ 500 MG in SODIUM CHLORIDE 0.9% INJ 100 ML IV SCH ×2 (08:19→21:05)
[2016-12-12] MEDS: FOLIC ACID 1 MG TAB OG-TUBE SCH (08:19)
[2016-12-12] MEDS: LACTULOSE SYRUP 20 GM/30 ML CUP PO SCH ×2 (08:19→21:06)
[2016-12-12] MEDS: ASPIRIN 81 MG CHEW TAB NG SCH (08:20)
[2016-12-12] MEDS: BUMETANIDE INJ 1 MG/4 ML VIAL IV PUSH SCH (08:20)
[2016-12-12] MEDS: DOCUSATE SODIUM 100 MG/10 ML UDC PO SCH ×2 (08:20→21:06)
[2016-12-12] MEDS: ATORVASTATIN 40 MG TAB PO SCH (08:21)
--- NOTE | 2016-12-12 14:40 | HHI.CCPN ---
Subjective Remarks/Hospital Course 65-year-old female with past medical history of stroke for which she at one point was on warfarin but had been discontinued. She was was admitted to [facility] emergency department 11/04/16 with difficulty getting her thoughts together. She was found to have multifocal nonhemorrhagic infarcts in left frontal and parietal regions, right frontal lobe and history of moyamoya disease. She was initially awake and following commands with weakness of RLE and some aphasia. She was transferred to [facility] where he had an cerebral angiogram consistent with moyamoya. There were plans to perform extracranial/intracranial bypass. However she had a seizure and ended up being intubated for status either 11/09 or 11/10.. She was found to have a new right frontal infarct area and she was started on Dilantin and Keppra and it was felt that she would not be a candidate for intervention. She has been intubated 9-10 days and apparently she has been tolerating C Pap trials to some extent but mental status prevents extubation. Treating team was discussing with family trach/PEG. Apparently family requested transfer back to [place] because they live locally here and wanted her closer to home. Apparently she had been sedated initially with propofol but then was on Precedex from 11/12-11/14. Appears she has been off all continuous sedation since 11/14. Subjective 11/19 No acute events overnight. Palliative care has been consult at family meeting is scheduled for today. After family meeting will will discuss placement of tracheostomy and/or and PEG, based on family's wishes. 11/20: Afebrile .No change in neurological status. Consult placed for tracheostomy and PEG placement as requested by family yesterday. 11/21: Afebrile. Tracheostomy plan for some time next week with general surgery , will try to coordinate with GI for PEG placement. 11/22 No acute events overnight. FOr PEG tube placement today. Afebrile. On no sedation. 11/23 Patient remains intubated on no sedation s/p PEG tube placement yesterday for trach today. Afebrile. 11/24 No acute events overnight. For trach today. Afebrile. 11/25 Patient s/p trach yesterday had an episode of emesis overnight and tube feeds placed on hold. Afebrile. 11/26 Patient is on ventilator via trach tolerated tube feeds during day however she had another episode of emesis overnight and tube feeds placed on hold. 11/27 Patient noted to have bloody secretions with suctioning and around trach site. Spiked fever with : 101.3 at 3am. Tolerated CPAP x 4 hrs and TP 2.5 hrs yesterday. 11/28 No acute events overnight. Afebrile. Tolerated CPAP x 2 hrs yesterday. Bloody secretions resolved. Afebrile. 11/29 Patient remains on ventilator via trach on sedation tolerating CPAP trials. 11/30 Patient spiked fever with T: 101.0 last night. On ventilator via trach. Tolerating tube feeds. 12/01: Remains on mechanical ventilation via tracheostomy. 12/02: Remains encephalopathic, on mechanical ventilation via tracheostomy. Tolerating tube feeds. Off all sedation. 12/03: Remains encephalopathic, on mechanical ventilation via tracheostomy. Remains off all sedation. Tolerating PEG feeds 12/04: Opens eyes however remains encephalopathic and not following commands. On mechanical ventilation via tracheostomy. Tolerated TPs during daytime yesterday. Tolerating PEG feeds. 12/05: Remains encephalopathic, on mech vent via trach. Daily C Pap trials. 12/06: Remains encephalopathic. Has spontaneous eye opening however not tracking. Remains on mechanical ventilation via tracheostomy. Daily C Pap trials ongoing. 12/07: Remains encephalopathic. On mechanical ventilation via tracheostomy. Daily C Pap trials. 12/08: Remains encephalopathic, on mechanical ventilation via tracheostomy. No significant neurologic improvement. Daily C Pap trials ongoing. 12/09: Patient has been maintained on trach collar for greater than 24 hours. Mental status unchanged. 12/10: Patient continues on trach collar at 28% FiO2. Antibiotics discontinued. Repeat urine culture obtained. 12/11: No acute events overnight. Trach sutures removed today. The patient continues on trach collar 28%. Afebrile 12/12: The patient remains encephalopathic. Patient's on trach collar continues on 28% FiO2. Urine culture negative. Objective Vital Signs Date Time Temp Pulse Resp B/P Pulse Ox O2 Delivery O2 Flow Rate FiO2 12/12/16 09:50 96 T-piece 6.00 28 12/12/16 06:00 89 12/12/16 04:00 98.2 20 134/74 Intake and Output 12/11/16 12/11/1617 08:00 16:00 00:00 Intake Total 532 ml 1132 ml 645 ml Output Total 500 ml 1800 ml 400 ml Balance 32 ml -668 ml 245 ml Result Diagram: 12/12/16 0416 12/12/16 0416 Other Results Microbiology Date/Time Procedure Status Source Growth 12/10/16 20:20 Urine Culture - Final Complete Urine Catheterized Urine NO GROWTH IN 48 HOURS. Imaging Last Impressions Chest X-Ray 11/27/16 0000 Signed Impressions: Service Date/Time: Sunday, November 27, 2016 08:27 - CONCLUSION: Left base atelectasis, consolidation and suspected effusion. Nghia Camacho MD Abdomen X-Ray 11/26/16 0000 Signed Impressions: Service Date/Time: Saturday, November 26, 2016 10:18 - CONCLUSION: Distended stomach otherwise nonspecific abdomen. Jackson Murillo MD Brain MRI 11/18/16 0825 Signed Impressions: Service Date/Time: November 18:14 - CONCLUSION: Large evolving bifrontal infarctions Nghia Pacheco MD Objective Remarks BP 128/66 P 88 RR 16 O2 [id number]% GENERAL: Patient is 65 yo on ventilator via trach, nonresponsive SKIN: Warm and dry. HEAD: Normocephalic. EYES: No scleral icterus. No injection or drainage. NECK: Supple, trachea midline. No JVD or lymphadenopathy. Trach in place CARDIOVASCULAR: Regular rate and rhythm without murmurs, gallops, or rubs. RESPIRATORY: Breath sounds equal bilaterally. No accessory muscle use. GASTROINTESTINAL: Abdomen soft, non-tender, nondistended. PEG tube in place MUSCULOSKELETAL: No cyanosis, or edema. Neuro: Opens eyes however remains encephalopathic and does not follow commands. Date of Insertion: Nov 19, 2016 A/P Assessment and Plan NEURO: Bifrontal strokes Moyamoya Seizures Keppra 1500 mg IV twice a day Continue ASA Continue bromocriptine 2.5 mg by mouth twice a day Continue atorvastatin 40 mg by mouth daily EEG-noted sharp spikes Neurology is following-Dr. Flores Has been evaluated tertiary care center and felt to not be a candidate for further intervention. RESP: Respiratory failure COPD Continue with vent support keep sat >92% Bronchodilators, ICU vent bundle s/p trach 11/24. Pulm toilet, trach care CXR 4/22 Left base atelectasis vs consolidation 12/09 -Trach collar 28% at 6 L/m CV: Coronary artery disease with prior myocardial infarction Hypertension Monitor HR and BP keep MAP>65mmHg. Continue with ASA, statin GI: Dysphagia s/p PEG tube placement 11/22 Continue TF(Jevity 1.5 with goal rate 60 mL per hour) monitor for residuals- minimal On Protonix 40mg IV daily for GI prophylaxis Monitor LFT's ( resolved) US liver: Cholelithiasis Bowel regimen with Colace, Senna , Miralax, Lactulose. BM 12/10 : Monitor renal function, I/O's, electrolytes replacement per protocol. On Bumex 1mg daily. ID: 11/25 Sputum cx: Staph species, Kleb pneumonia both sensitive to Rocephin 11/25 Urine: Kleb pneumonia Follow up on BC from 11/27- NGTD on Rocephin 1gram daily. Monitor for signs and symptoms of infection. Discontinued 12/10 BC x 2 sets drawn on 11/30 with no growth, sputum and urine cx 11/29 growing klebsiella 12/09 Repeat urine [id number] results HEME: Monitor CBC ENDO: Euglycemic PROPH: Hold DVT prophylaxis per neurology secondary to bilateral CVAs. Protonix 40 mg IV daily for stress ulcer prophylaxis. ACCESS: Peripheral IV's x 2. Palliative care medicine is following Case management continued evaluation for LTAC placement. Level 3 Physician Nieves Childs MD December 12, 2016 14:40
[2016-12-13] VITALS (13 sets, daily range): BP systolic 119–159; BP diastolic 60–85; PULSE 71–105; RESP 17–22; TEMP 98.1–98.8; O2SAT 93–97
[2016-12-13] MEDS: INSULIN NovoLIN REGULAR SUPPLEMENTAL SCALE SQ SCH ×3 (02:00→20:00)
[2016-12-13] MEDS: CHLORHEXIDINE GLUCONATE 2 % 1 PACK (2 CLOTHS) TOP SCH (04:00)
[2016-12-13] MEDS: CHLORHEXIDINE 0.12% (ORAL KIT) 15 ML CUP MT SCH ×2 (08:00→21:10)
[2016-12-13] MEDS: levETIRAcetam 1000 MG INJ 100 ML IV SCH ×2 (10:04→21:09)
[2016-12-13] MEDS: ASPIRIN 81 MG CHEW TAB NG SCH (10:05)
[2016-12-13] MEDS: ATORVASTATIN 40 MG TAB PO SCH (10:05)
[2016-12-13] MEDS: levETIRAcetam INJ 500 MG in SODIUM CHLORIDE 0.9% INJ 100 ML IV SCH ×2 (10:05→21:09)
[2016-12-13] MEDS: LACTULOSE SYRUP 20 GM/30 ML CUP PO SCH ×2 (10:06→21:08)
[2016-12-13] MEDS: BUMETANIDE INJ 1 MG/4 ML VIAL IV PUSH SCH (10:06)
[2016-12-13] MEDS: DOCUSATE SODIUM 100 MG/10 ML UDC PO SCH ×2 (10:06→21:08)
[2016-12-13] MEDS: SENNOSIDES SYRUP 8.8 MG/5 ML CUP PO SCH ×2 (10:06→21:00)
[2016-12-13] MEDS: POLYETHYLENE GLYCOL 17 GM PKG PO SCH (10:06)
[2016-12-13] MEDS: BROMOCRIPTINE MESYLATE 2.5 MG TAB OG-TUBE SCH ×2 (10:07→21:08)
[2016-12-13] MEDS: FOLIC ACID 1 MG TAB OG-TUBE SCH (10:07)
[2016-12-13] MEDS: PANTOPRAZOLE SODIUM 40 MG VIAL IV SCH (10:07)
[2016-12-13] MEDS: SODIUM CHLORIDE 0.9% FLUSH 10 ML FLUSH IV FLUSH SCH ×2 (10:07→21:09)
--- NOTE | 2016-12-13 19:03 | HHI.CCPN ---
Subjective Remarks/Hospital Course 65-year-old female with past medical history of stroke for which she at one point was on warfarin but had been discontinued. She was was admitted to [facility] emergency department 11/04/16 with difficulty getting her thoughts together. She was found to have multifocal nonhemorrhagic infarcts in left frontal and parietal regions, right frontal lobe and history of moyamoya disease. She was initially awake and following commands with weakness of RLE and some aphasia. She was transferred to [facility] where he had an cerebral angiogram consistent with moyamoya. There were plans to perform extracranial/intracranial bypass. However she had a seizure and ended up being intubated for status either 11/09 or 11/10.. She was found to have a new right frontal infarct area and she was started on Dilantin and Keppra and it was felt that she would not be a candidate for intervention. She has been intubated 9-10 days and apparently she has been tolerating C Pap trials to some extent but mental status prevents extubation. Treating team was discussing with family trach/PEG. Apparently family requested transfer back to [place] because they live locally here and wanted her closer to home. Apparently she had been sedated initially with propofol but then was on Precedex from 11/12-11/14. Appears she has been off all continuous sedation since 11/14. Subjective 11/19 No acute events overnight. Palliative care has been consult at family meeting is scheduled for today. After family meeting will will discuss placement of tracheostomy and/or and PEG, based on family's wishes. 11/20: Afebrile .No change in neurological status. Consult placed for tracheostomy and PEG placement as requested by family yesterday. 11/21: Afebrile. Tracheostomy plan for some time next week with general surgery , will try to coordinate with GI for PEG placement. 11/22 No acute events overnight. FOr PEG tube placement today. Afebrile. On no sedation. 11/23 Patient remains intubated on no sedation s/p PEG tube placement yesterday for trach today. Afebrile. 11/24 No acute events overnight. For trach today. Afebrile. 11/25 Patient s/p trach yesterday had an episode of emesis overnight and tube feeds placed on hold. Afebrile. 11/26 Patient is on ventilator via trach tolerated tube feeds during day however she had another episode of emesis overnight and tube feeds placed on hold. 11/27 Patient noted to have bloody secretions with suctioning and around trach site. Spiked fever with : 101.3 at 3am. Tolerated CPAP x 4 hrs and TP 2.5 hrs yesterday. 11/28 No acute events overnight. Afebrile. Tolerated CPAP x 2 hrs yesterday. Bloody secretions resolved. Afebrile. 11/29 Patient remains on ventilator via trach on sedation tolerating CPAP trials. 11/30 Patient spiked fever with T: 101.0 last night. On ventilator via trach. Tolerating tube feeds. 12/01: Remains on mechanical ventilation via tracheostomy. 12/02: Remains encephalopathic, on mechanical ventilation via tracheostomy. Tolerating tube feeds. Off all sedation. 12/03: Remains encephalopathic, on mechanical ventilation via tracheostomy. Remains off all sedation. Tolerating PEG feeds 12/04: Opens eyes however remains encephalopathic and not following commands. On mechanical ventilation via tracheostomy. Tolerated TPs during daytime yesterday. Tolerating PEG feeds. 12/05: Remains encephalopathic, on mech vent via trach. Daily C Pap trials. 12/06: Remains encephalopathic. Has spontaneous eye opening however not tracking. Remains on mechanical ventilation via tracheostomy. Daily C Pap trials ongoing. 12/07: Remains encephalopathic. On mechanical ventilation via tracheostomy. Daily C Pap trials. 12/08: Remains encephalopathic, on mechanical ventilation via tracheostomy. No significant neurologic improvement. Daily C Pap trials ongoing. 12/09: Patient has been maintained on trach collar for greater than 24 hours. Mental status unchanged. 12/10: Patient continues on trach collar at 28% FiO2. Antibiotics discontinued. Repeat urine culture obtained. 12/11: No acute events overnight. Trach sutures removed today. The patient continues on trach collar 28%. Afebrile 12/12: The patient remains encephalopathic. Patient's on trach collar continues on 28% FiO2. Urine culture negative. 12/13: The patient was noted to have a slight increase in respiratory rate, appeared to be slightly labored breathing. Patient suctioned well, and closely monitored with resolution of symptomatology. The patient remains encephalopathic. Doing well on trach collar. Objective Vital Signs Date Time Temp Pulse Resp B/P Pulse Ox O2 Delivery O2 Flow Rate FiO2 12/13/16 18:00 76 12/13/16 16:00 98.1 17 119/60 94 12/13/16 09:51 T-piece 6.00 28 Intake and Output 12/12/16 12/12/16 12/13/16 08:00 16:00 00:00 Intake Total 616 ml 802 ml 729 ml Output Total 350 ml 1500 ml 650 ml Balance 266 ml -698 ml 79 ml Result Diagram: 12/12/16 0416 12/12/16 0416 Other Results Microbiology Date/Time Procedure Status Source Growth 12/10/16 20:20 Urine Culture - Final Complete Urine Catheterized Urine NO GROWTH IN 48 HOURS. Imaging Last Impressions Chest X-Ray 11/27/16 0000 Signed Impressions: Service Date/Time: Sunday, November 27, 2016 08:27 - CONCLUSION: Left base atelectasis, consolidation and suspected effusion. Nghia aCmacho MD Abdomen X-Ray 11/26/16 0000 Signed Impressions: Service Date/Time: Saturday, November 26, 2016 10:18 - CONCLUSION: Distended stomach otherwise nonspecific abdomen. KKristin Murillo MD Brain MRI 11/18/16 0825 Signed Impressions: Service Date/Time: November 18:14 - CONCLUSION: Large evolving bifrontal infarctions Nghia Pacheco MD Objective Remarks BP 143/66 P 109 RR 26 O2 [id number]% GENERAL: Patient is 65 yo on ventilator via trach, nonresponsive SKIN: Warm and dry. HEAD: Normocephalic. EYES: No scleral icterus. No injection or drainage. NECK: Supple, trachea midline. No JVD or lymphadenopathy. Trach in place CARDIOVASCULAR: Regular rate and rhythm without murmurs, gallops, or rubs. RESPIRATORY: Breath sounds equal bilaterally. No accessory muscle use. GASTROINTESTINAL: Abdomen soft, non-tender, nondistended. PEG tube in place MUSCULOSKELETAL: No cyanosis, or edema. Neuro: Opens eyes however remains encephalopathic and does not follow commands. Date of Insertion: Nov 19, 2016 A/P Assessment and Plan NEURO: Bifrontal strokes Moyamoya Seizures Keppra 1500 mg IV twice a day Continue ASA Continue bromocriptine 2.5 mg by mouth BID Atorvastatin 40 mg by mouth daily EEG-noted sharp spikes Neurology is following-Dr. Flores Has been evaluated tertiary care center and felt to not be a candidate for further intervention. RESP: Respiratory failure COPD Continue with vent support keep sat >92% Bronchodilators, ICU vent bundle s/p trach 11/24. Pulm toilet, trach care CXR 11/27 Left base atelectasis vs consolidation 12/09 -Trach collar 28% at 6 L/m CV: Coronary artery disease with prior myocardial infarction Hypertension Monitor HR and BP keep MAP>65mmHg. Continue with ASA, statin GI: Dysphagia s/p PEG tube placement 11/22 Continue TF(Jevity 1.5 with goal rate 60 mL per hour) monitor for residuals- minimal On Protonix 40mg IV daily for GI prophylaxis Monitor LFT's ( resolved) US liver: Cholelithiasis Bowel regimen with Colace, Senna , Miralax, Lactulose. BM 12/13 : Monitor renal function, I/O's, electrolytes replacement per protocol. On Bumex 1mg daily. ID: 11/25 Sputum cx: Staph species, Kleb pneumonia both sensitive to Rocephin 11/25 Urine: Kleb pneumonia Follow up on BC from 11/27- NGTD on Rocephin 1gram daily. Monitor for signs and symptoms of infection. Discontinued 12/10 BC x 2 sets drawn on 11/30 with no growth, sputum and urine cx 11/29 growing klebsiella 12/09 Repeat urine culture -NGTD HEME: Monitor CBC ENDO: Euglycemic PROPH: Hold DVT prophylaxis per neurology secondary to bilateral CVAs. Protonix 40 mg IV daily for stress ulcer prophylaxis. ACCESS: Peripheral IV's x 2. Palliative care medicine is following Case management continued evaluation for LTAC placement. Level 3 Physician Nieves Childs MD December 13, 2016 19:03
[2016-12-14] VITALS (25 sets, daily range): BP systolic 113–169; BP diastolic 56–96; PULSE 82–107; RESP 16–21; TEMP 98.2–98.6; O2SAT 94–100
[2016-12-14] MEDS: INSULIN NovoLIN REGULAR SUPPLEMENTAL SCALE SQ SCH ×4 (02:00→20:00)
[2016-12-14] MEDS: CHLORHEXIDINE GLUCONATE 2 % 1 PACK (2 CLOTHS) TOP SCH (02:15)
[2016-12-14 06:03] LABS: HEMATOCRIT 29.9 % (35.0-46.0); MEAN CELL VOLUME 82.9 FL (80.0-100.0); MEAN CORPUSCULAR HEMOGLOBIN 27.7 PG (27.0-34.0); MEAN CORPUSCULAR HGB CONC 33.5 % (32.0-36.0); PLATELET COUNT 615 TH/MM3 (150-450); RED CELL DISTRIBUTION WIDTH 15.9 % (11.6-17.2); REVIEW FLAG FINAL
[2016-12-14 06:27] LABS: BICARBONATE 30.2 MEQ/L (21.0-32.0); MAGNESIUM 2.4 MG/DL (1.5-2.5); POTASSIUM 3.9 MEQ/L (3.5-5.1)
[2016-12-14] MEDS: CHLORHEXIDINE 0.12% (ORAL KIT) 15 ML CUP MT SCH (08:22)
[2016-12-14] MEDS: levETIRAcetam 1000 MG INJ 100 ML IV SCH ×2 (08:24→20:42)
[2016-12-14] MEDS: PANTOPRAZOLE SODIUM 40 MG VIAL IV SCH (08:24)
[2016-12-14] MEDS: FOLIC ACID 1 MG TAB OG-TUBE SCH (08:24)
[2016-12-14] MEDS: DOCUSATE SODIUM 100 MG/10 ML UDC PO SCH ×2 (08:24→20:42)
[2016-12-14] MEDS: LACTULOSE SYRUP 20 GM/30 ML CUP PO SCH ×2 (08:24→20:43)
[2016-12-14] MEDS: ATORVASTATIN 40 MG TAB PO SCH (08:24)
[2016-12-14] MEDS: SENNOSIDES SYRUP 8.8 MG/5 ML CUP PO SCH ×2 (08:25→20:42)
[2016-12-14] MEDS: POLYETHYLENE GLYCOL 17 GM PKG PO SCH (08:25)
[2016-12-14] MEDS: BROMOCRIPTINE MESYLATE 2.5 MG TAB OG-TUBE SCH ×2 (08:25→20:43)
[2016-12-14] MEDS: ASPIRIN 81 MG CHEW TAB NG SCH (08:25)
[2016-12-14] MEDS: SODIUM CHLORIDE 0.9% FLUSH 10 ML FLUSH IV FLUSH SCH ×2 (08:25→20:43)
[2016-12-14] MEDS: BUMETANIDE INJ 1 MG/4 ML VIAL IV PUSH SCH (08:25)
[2016-12-14] MEDS: levETIRAcetam INJ 500 MG in SODIUM CHLORIDE 0.9% INJ 100 ML IV SCH ×2 (09:41→20:42)
--- NOTE | 2016-12-14 15:43 | HHI.CCPN ---
Subjective Remarks/Hospital Course 65-year-old female with past medical history of stroke for which she at one point was on warfarin but had been discontinued. She was was admitted to [facility] emergency department 11/04/16 with difficulty getting her thoughts together. She was found to have multifocal nonhemorrhagic infarcts in left frontal and parietal regions, right frontal lobe and history of moyamoya disease. She was initially awake and following commands with weakness of RLE and some aphasia. She was transferred to [facility] where he had an cerebral angiogram consistent with moyamoya. There were plans to perform extracranial/intracranial bypass. However she had a seizure and ended up being intubated for status either 11/09 or 11/10.. She was found to have a new right frontal infarct area and she was started on Dilantin and Keppra and it was felt that she would not be a candidate for intervention. She has been intubated 9-10 days and apparently she has been tolerating C Pap trials to some extent but mental status prevents extubation. Treating team was discussing with family trach/PEG. Apparently family requested transfer back to [place] because they live locally here and wanted her closer to home. Apparently she had been sedated initially with propofol but then was on Precedex from 11/12-11/14. Appears she has been off all continuous sedation since 11/14. Subjective 11/19 No acute events overnight. Palliative care has been consult at family meeting is scheduled for today. After family meeting will will discuss placement of tracheostomy and/or and PEG, based on family's wishes. 11/20: Afebrile .No change in neurological status. Consult placed for tracheostomy and PEG placement as requested by family yesterday. 11/21: Afebrile. Tracheostomy plan for some time next week with general surgery , will try to coordinate with GI for PEG placement. 11/22 No acute events overnight. FOr PEG tube placement today. Afebrile. On no sedation. 11/23 Patient remains intubated on no sedation s/p PEG tube placement yesterday for trach today. Afebrile. 11/24 No acute events overnight. For trach today. Afebrile. 11/25 Patient s/p trach yesterday had an episode of emesis overnight and tube feeds placed on hold. Afebrile. 11/26 Patient is on ventilator via trach tolerated tube feeds during day however she had another episode of emesis overnight and tube feeds placed on hold. 11/27 Patient noted to have bloody secretions with suctioning and around trach site. Spiked fever with : 101.3 at 3am. Tolerated CPAP x 4 hrs and TP 2.5 hrs yesterday. 11/28 No acute events overnight. Afebrile. Tolerated CPAP x 2 hrs yesterday. Bloody secretions resolved. Afebrile. 11/29 Patient remains on ventilator via trach on sedation tolerating CPAP trials. 11/30 Patient spiked fever with T: 101.0 last night. On ventilator via trach. Tolerating tube feeds. 12/01: Remains on mechanical ventilation via tracheostomy. 12/02: Remains encephalopathic, on mechanical ventilation via tracheostomy. Tolerating tube feeds. Off all sedation. 12/03: Remains encephalopathic, on mechanical ventilation via tracheostomy. Remains off all sedation. Tolerating PEG feeds 12/04: Opens eyes however remains encephalopathic and not following commands. On mechanical ventilation via tracheostomy. Tolerated TPs during daytime yesterday. Tolerating PEG feeds. 12/05: Remains encephalopathic, on mech vent via trach. Daily C Pap trials. 12/06: Remains encephalopathic. Has spontaneous eye opening however not tracking. Remains on mechanical ventilation via tracheostomy. Daily C Pap trials ongoing. 12/07: Remains encephalopathic. On mechanical ventilation via tracheostomy. Daily C Pap trials. 12/08: Remains encephalopathic, on mechanical ventilation via tracheostomy. No significant neurologic improvement. Daily C Pap trials ongoing. 12/09: Patient has been maintained on trach collar for greater than 24 hours. Mental status unchanged. 12/10: Patient continues on trach collar at 28% FiO2. Antibiotics discontinued. Repeat urine culture obtained. 12/11: No acute events overnight. Trach sutures removed today. The patient continues on trach collar 28%. Afebrile 12/12: The patient remains encephalopathic. Patient's on trach collar continues on 28% FiO2. Urine culture negative. 12/13: The patient was noted to have a slight increase in respiratory rate, appeared to be slightly labored breathing. Patient suctioned well, and closely monitored with resolution of symptomatology. The patient remains encephalopathic. Doing well on trach collar 12/14: The patient was noted to have thickened yellow tracheal secretions, culture and Gram stain sent. The patient remains encephalopathic. Continues on FiO2 of 28% Objective Vital Signs Date Time Temp Pulse Resp B/P Pulse Ox O2 Delivery O2 Flow Rate FiO2 12/14/16 14:00 86 12/14/16 14:00 16 118/59 98 12/14/16 12:00 98.5 12/14/16 11:37 T-piece 28 12/14/16 07:00 4.00 Intake and Output 12/13/16 12/13/16 12/13/16 07:59 15:59 23:59 Intake Total 579 ml 746 ml 810 ml Output Total 500 ml 1600 ml 650 ml Balance 79 ml -854 ml 160 ml Result Diagram: 12/14/16 0453 12/14/16 0453 Imaging Last Impressions Chest X-Ray 12/01/16 0000 Signed Impressions: Service Date/Time: Thursday, December 01, 2016 02:37 - CONCLUSION: Improving left lower lung infiltrate. Clif Jacobo MD Abdomen X-Ray 11/26/16 0000 Signed Impressions: Service Date/Time: Saturday, November 26, 2016 10:18 - CONCLUSION: Distended stomach otherwise nonspecific abdomen. Jackson Murillo MD Brain MRI 11/18/16 0825 Signed Impressions: Service Date/Time: November 18:14 - CONCLUSION: Large evolving bifrontal infarctions Nghia Pacheco MD Last Impressions Chest X-Ray 11/27/16 0000 Signed Impressions: Service Date/Time: Sunday, November 27, 2016 08:27 - CONCLUSION: Left base atelectasis, consolidation and suspected effusion. Nghia Camacho MD Abdomen X-Ray 11/26/16 0000 Signed Impressions: Service Date/Time: Saturday, November 26, 2016 10:18 - CONCLUSION: Distended stomach otherwise nonspecific abdomen. Jackson Murillo MD Brain MRI 11/18/16 0825 Signed Impressions: Service Date/Time: November 18:14 - CONCLUSION: Large evolving bifrontal infarctions Nghia Pacheco MD Objective Remarks BP 118/59 P 90 RR 18 O2 [id number]% GENERAL: Patient is 65 yo on ventilator via trach, nonresponsive SKIN: Warm and dry. HEAD: Normocephalic. EYES: No scleral icterus. No injection or drainage. NECK: Supple, trachea midline. No JVD or lymphadenopathy. Trach in place CARDIOVASCULAR: Regular rate and rhythm without murmurs, gallops, or rubs. RESPIRATORY: Breath sounds equal bilaterally. No accessory muscle use. GASTROINTESTINAL: Abdomen soft, non-tender, nondistended. PEG tube in place MUSCULOSKELETAL: No cyanosis, or edema. Neuro: Opens eyes however remains encephalopathic and does not follow commands. Date of Insertion: Nov 19, 2016 A/P Assessment and Plan NEURO: Bifrontal strokes Moyamoya Seizures Keppra 1500 mg IV twice a day Continue ASA Continue bromocriptine 2.5 mg by mouth BID Atorvastatin 40 mg by mouth daily EEG-noted sharp spikes Neurology is following-Dr. Flores Has been evaluated tertiary care center and felt to not be a candidate for further intervention. RESP: Respiratory failure COPD Continue with vent support keep sat >92% Bronchodilators, ICU vent bundle s/p trach 11/24. Pulm toilet, trach care CXR 11/27 Left base atelectasis vs consolidation 12/09 -Trach collar 28% at 6 L/m 12/14 thickened secretions sputum culture obtained CV: Coronary artery disease with prior myocardial infarction Hypertension Monitor HR and BP keep MAP>65mmHg. Continue with ASA, statin GI: Dysphagia s/p PEG tube placement 11/22 Continue TF(Jevity 1.5 with goal rate 60 mL per hour) monitor for residuals- minimal On Protonix 40mg IV daily for GI prophylaxis Monitor LFT's ( resolved) US liver: Cholelithiasis Bowel regimen with Colace, Senna , Miralax, Lactulose. BM 12/13 : Monitor renal function, I/O's, electrolytes replacement per protocol. On Bumex 1mg daily. ID: 11/25 Sputum cx: Staph species, Kleb pneumonia both sensitive to Rocephin 11/25 Urine: Kleb pneumonia Follow up on BC from 11/27- NGTD on Rocephin 1gram daily. Monitor for signs and symptoms of infection. Discontinued 12/10 BC x 2 sets drawn on 11/30 with no growth, sputum and urine cx 11/29 growing klebsiella 12/09 Repeat urine culture -NGTD m 12/14 Sputum culture follow-up results HEME: Monitor CBC- ENDO: Euglycemic PROPH: Hold DVT prophylaxis per neurology secondary to bilateral CVAs. Protonix 40 mg IV daily for stress ulcer prophylaxis. ACCESS: Peripheral IV's x 2. Palliative care medicine is following Case management continued evaluation for LTAC placement. Level 3 Dispo: Discussed with RN BSN at bedside Physician Nieves Childs MD December 14, 2016 15:43
[2016-12-14] MEDS ORDERED: BISACODYL 10 MG SUPP RECTAL PRN (15:45)
--- NOTE | 2016-12-14 16:57 | HHI.HCPN ---
Reason for visit a. To assist with evaluation and management of symptoms including: encephalopathy, seizure, dyspnea. b. To assist medical decision maker(s) with: better understanding of current medical conditions; weighing benefits/burdens of medical treatment options; making medical treatment decisions. . (Yuridia Almeida) Subjective/Interval History Pt seen to follow up on comfort , provide update to family. She is s/p trach/PEG. has been on T piece since 12/08. Episode tachypnea earlier, required sx. Has had no sedation for > week. Tolerating TF. + Bowel movements , last BM 12/13. Labs stable/unremarkable. Will need termite exterminator helper placement- coverage pending per CM, applications/requests to local facilities, no accepting facility yet. Patient seen in room, No visitors present. On T piece 28% fio2. opens eyes spontaneously. Keeps eyes open during stimuli.+blink to threat. Does not track examiner. does not follow commands, no withdrawal to pain stimuli on 4 extremities. + Following exam call to pt dtr Cata to provide update. Review current condition, underlying condition, prognosis, current assessment/tx in place, discharge planning/placement process. All questions answered. She is appreciative of weekly updates. She requests I call her sister Marcelo to provide her update as well. called Marcelo VM left. 1700-- Marcelo later called me back. Provided update/general review of conditions /prognosis. She indicates family would like additional meeting with neurology to discuss pt condition, options etc. She requests additional CT scans and MRI brain to determine if pt has had additional strokes-- review that pt has had no clinical changes and that is not routine to obtain ongoing CTs/MRI unless indicated by condition change etc. She indicates family still wants repeat CT, advise I will share with neurology. She also requests "entire body scan" to make sure other organs are working. Review pt labs WNL, other body systems clinical assess WNL and no indication of organ failure and further body imaging not warranted. All questions answered, she is appreciative of updates. Wants neurology meeting w family soon. . (Yuridia Almeida) Advance Directives Living Will: Never completed Health Care Surrogate: Never completed Durable Power of Information Technology Technician: Never completed (Yuridia Almeida) Advance Directive Specifics Health Care Surrogate(s): No known written advance directives. Patient currently incapacitated to make her healthcare decisions. According to [place] statutes health care proxy decision-making falls to the majority of adult children. Patient has 3 children. . (Yuridia Almeida) Objective Vital Signs Date Time Temp Pulse Resp B/P Pulse Ox O2 Delivery O2 Flow Rate FiO2 12/14/16 14:00 86 12/14/16 14:00 86 16 118/59 98 12/14/16 13:00 97 19 142/72 99 12/14/16 12:00 91 12/14/16 12:00 98.5 91 17 113/56 99 12/14/16 11:37 98 T-piece 28 12/14/16 11:00 99 18 147/77 100 12/14/16 10:00 102 19 159/74 95 12/14/16 10:00 102 12/14/16 10:00 102 19 159/74 95 12/14/16 09:00 107 21 169/96 96 12/14/16 08:00 98.6 104 21 163/85 96 12/14/16 08:00 104 12/14/16 07:00 T-Piece 4.00 28 12/14/16 07:00 101 21 157/86 96 12/14/16 06:00 93 12/14/16 04:00 97 18 158/75 94 12/14/16 04:00 97 12/14/16 02:00 100 12/14/16 01:34 97 T-piece 4.00 28 12/14/16 00:00 90 12/14/16 00:00 98.5 90 20 163/78 94 12/13/16 22:00 100 12/13/16 20:00 98.8 95 22 152/79 95 12/13/16 20:00 71 12/13/16 19:00 T-Piece 6.00 28 12/13/16 18:00 76 Intake & Output 12/14/16 12/14/16 06:59 18:59 Intake Total 1415 ml 730 ml Output Total 1000 ml 800 ml Balance 415 ml -70 ml IV Total 455 ml 193 ml Tube Feeding 880 ml 397 ml Tube Irrigant 80 ml Other 140 ml Output Urine Total 1000 ml 800 ml Stool Total 0 ml Physical Exam CONSTITUTIONAL/GENERAL: critically ill patient, lethargic, on T piece TUBES/LINES/DRAINS: PIV LALI extremity, Tracheostomy, PEG, Brown, SCDs, multipodus boots. CARDIOVASCULAR: Regular rate and rhythm RESPIRATORY/CHEST: trach midline. Symmetric, unlabored respirations via trach to 35% fio2 T piece . Clear to auscultation. GASTROINTESTINAL: Abdomen soft, nondistended. Bowel sounds active. +PEG LUQ site asymptomatic, +TF infusing GENITOURINARY: Without palpable bladder distension. Brown catheter in place- clear dark yellow urine. NEUROLOGICAL: Slight eye opening verbal stimuli--keeps eyes open w any stimuli. Does not track examiner. Extremities with no withdrawal to pain. PSYCHIATRIC: off sedation > 1 week. Limited clinical assessment, non-responsive , no signs of anxiety . (Yuridia Almeida) Diagnostic Tests Laboratory Laboratory Tests Test 12/12/16 12/14/16 04:16 04:53 White Blood Count 8.1 TH/MM3 7.0 TH/MM3 (4.0-11.0) (4.0-11.0) Red Blood Count 3.42 MIL/MM3 3.60 MIL/MM3 (4.00-5.30) (4.00-5.30) Hemoglobin 9.0 GM/DL 10.0 GM/DL (11.6-15.3) (11.6-15.3) Hematocrit 27.4 % 29.9 % (35.0-46.0) (35.0-46.0) Mean Corpuscular Volume 80.1 FL 82.9 FL (80.0-100.0) (80.0-100.0) Mean Corpuscular Hemoglobin 26.3 PG 27.7 PG (27.0-34.0) (27.0-34.0) Mean Corpuscular Hemoglobin 32.8 % 33.5 % Concent (32.0-36.0) (32.0-36.0) Red Cell Distribution Width 15.6 % 15.9 % (11.6-17.2) (11.6-17.2) Platelet Count 556 TH/MM3 615 TH/MM3 (150-450) (150-450) Mean Platelet Volume 7.5 FL 7.7 FL (7.0-11.0) (7.0-11.0) Sodium Level 139 MEQ/L 139 MEQ/L (136-145) (136-145) Potassium Level 4.0 MEQ/L 3.9 MEQ/L (3.5-5.1) (3.5-5.1) Chloride Level 100 MEQ/L 99 MEQ/L (98-107) (98-107) Carbon Dioxide Level 33.6 MEQ/L 30.2 MEQ/L (21.0-32.0) (21.0-32.0) Anion Gap 5 MEQ/L (5-15) 10 MEQ/L (5-15) Blood Urea Nitrogen 21 MG/DL (7-18) 26 MG/DL (7-18) Creatinine 0.44 MG/DL 0.47 MG/DL (0.50-1.00) (0.50-1.00) Estimat Glomerular Filtration 144 ML/MIN 134 ML/MIN Rate (>89) (>89) Random Glucose 111 MG/DL 129 MG/DL (74-106) (74-106) Calcium Level 8.9 MG/DL 9.5 MG/DL (8.5-10.1) (8.5-10.1) Phosphorus Level 3.7 MG/DL 4.0 MG/DL (2.5-4.9) (2.5-4.9) Magnesium Level 2.3 MG/DL 2.4 MG/DL (1.5-2.5) (1.5-2.5) (Yuridia Almeida) Result Diagram: 12/14/1645212/14/16452 Assessment and Plan Disease Oriented Problem List: (1) CVA (cerebral vascular accident) (2) Moyamoya disease (3) Seizure Comment: On Keppra . (4) Generalized weakness Symptom Scale: (1) Seizure 0-10 Scale: 0 (2) Generalized weakness 0-10 Scale: Unable to quantify (3) Dyspnea 0-10 Scale: Unable to quantify Comment: On mechanical ventilation Pertinent Non-Medical Issues Psychosocial: Single. Has 2 daughters and one son. Spiritual: unknown. Legal: Ethical issues impacting care: No known concerns at this time. . Important Contacts * Maria Del Carmen Rivas, daughter: [phone] * Marcelo Rivas, daughter: [phone] * Dwight Rivas, son: [phone] . Prognosis MRI/EEG reviewed by neurology, prognosis felt to be poor, infarct noted to be huge. Patient may wake some in 6 months. Given extent of infarct, I would not expect patient to regain significant functional or cognitive status. Code Status: Full Code Plan * Patient is incapacitated to make healthcare decisions. No known written advanced directives. According to [place] Statutes, health care proxy decision making falls to majority of adult children. Patient has 2 daughters (Marcelo Joyce) and 1 son (Dwight). * CODE STATUSFULL CODE * GOALS: prev met with 2/3 family members. Goals have been aggressive, they verbalized they want to cont all available treatments to give pt more time for possible recovery. Update provided to daughter Maria Del Carmen 12/14/16, goals remain aggressive. Later spoke with other daughter (Marcelo). Family is requesting follow up meeting with neurology to review condition and options, and additional brain imaging. Will attempt to contact neurology to notify of this. * SYMPTOMS: Seizure: hx seizures 2/2 CVA --patient remains on Keppra ; no visualized sz reported Weakness: due to prolonged hospital course, bilateral infarcts. Not regaining any purposeful or spontaneous movements as of yet. Dyspnea: remains on mech vent. Off sedation. tolerating T Piece . No signs of tachypnea now, reported episode earlier, requiring sx. will continue to monitor. Encephalopathy: minimally responsive at this time off sedation > 1 week. Will monitor. Constipation: resolved. Last 12/13 * Palliative care will continue to follow during hospital course as condition evolves, to assist patient/decision-maker with understanding of medical conditions, weighing benefits/burdens of treatment options, for clarification of goals of treatment. Additionally will assist with any symptoms of palliative concern. . (Yuridia Almeida) Attestation To help prompt me to consider important information that might be impacting today's encounter and assessment, information from prior notes written by myself or my colleagues may have been "brought forward" into today's note. My signature on this note, however, is an attestation that I personally performed the exam, history, and/or decision-making noted today, and, unless otherwise indicated, the interactions with patient, family, and staff as well as the review of records all occurred today. I also attest that the listed assessment and stated plan reflect my best clinical judgment today based on the combination of historical information, prior notes, and today's exam/ interactions. When time spent is documented, it refers only to time spent today by the signer, or if indicated, combined time spent today by collaborating physician/nurse practitioner. (Yuridia Almeida) Collaborating MD Comments . Chart reviewed. Cased discussed with palliative care COLLEGE ADMISSIONS COUNSELOR. Above COLLEGE ADMISSIONS COUNSELOR note reviewed and I concur. . (Stephen Lombardo MD) Yuridia Almeida December 14, 2016 16:57 Stephen Lombardo MD January 03, 2017 16:06
[2016-12-15] VITALS (23 sets, daily range): BP systolic 121–174; BP diastolic 57–91; PULSE 89–105; RESP 13–17; TEMP 98.2–99.3; O2SAT 93–98
[2016-12-15] MEDS: INSULIN NovoLIN REGULAR SUPPLEMENTAL SCALE SQ SCH ×4 (02:00→20:00)
[2016-12-15] MEDS: CHLORHEXIDINE 0.12% (ORAL KIT) 15 ML CUP MT SCH ×3 (02:15→21:14)
[2016-12-15] MEDS: CHLORHEXIDINE GLUCONATE 2 % 1 PACK (2 CLOTHS) TOP SCH (02:16)
[2016-12-15] MEDS: RESP: ALBUTEROL 2.5 MG/3 ML NEB (PRN) INH (02:40)
[2016-12-15] MEDS: SODIUM CHLORIDE 0.9% FLUSH 10 ML FLUSH IV FLUSH SCH ×2 (09:00→21:13)
[2016-12-15] MEDS: POLYETHYLENE GLYCOL 17 GM PKG PO SCH (09:49)
[2016-12-15] MEDS: levETIRAcetam INJ 500 MG in SODIUM CHLORIDE 0.9% INJ 100 ML IV SCH ×2 (09:49→21:13)
[2016-12-15] MEDS: ASPIRIN 81 MG CHEW TAB NG SCH (09:49)
[2016-12-15] MEDS: PANTOPRAZOLE SODIUM 40 MG VIAL IV SCH (09:49)
[2016-12-15] MEDS: DOCUSATE SODIUM 100 MG/10 ML UDC PO SCH ×2 (09:49→21:13)
[2016-12-15] MEDS: levETIRAcetam 1000 MG INJ 100 ML IV SCH ×2 (09:49→21:13)
[2016-12-15] MEDS: SENNOSIDES SYRUP 8.8 MG/5 ML CUP PO SCH ×2 (09:50→21:13)
[2016-12-15] MEDS: FOLIC ACID 1 MG TAB OG-TUBE SCH (09:50)
[2016-12-15] MEDS: ATORVASTATIN 40 MG TAB PO SCH (09:50)
[2016-12-15] MEDS: BUMETANIDE INJ 1 MG/4 ML VIAL IV PUSH SCH (09:50)
[2016-12-15] MEDS: BROMOCRIPTINE MESYLATE 2.5 MG TAB OG-TUBE SCH ×2 (09:50→21:13)
[2016-12-15] MEDS: LACTULOSE SYRUP 20 GM/30 ML CUP PO SCH ×2 (09:50→21:13)
--- NOTE | 2016-12-15 17:21 | HHI.CCPN ---
Subjective Remarks/Hospital Course 65-year-old female with past medical history of stroke for which she at one point was on warfarin but had been discontinued. She was was admitted to [facility] emergency department 11/04/16 with difficulty getting her thoughts together. She was found to have multifocal nonhemorrhagic infarcts in left frontal and parietal regions, right frontal lobe and history of moyamoya disease. She was initially awake and following commands with weakness of RLE and some aphasia. She was transferred to [facility] where he had an cerebral angiogram consistent with moyamoya. There were plans to perform extracranial/intracranial bypass. However she had a seizure and ended up being intubated for status either 11/09 or 11/10.. She was found to have a new right frontal infarct area and she was started on Dilantin and Keppra and it was felt that she would not be a candidate for intervention. She has been intubated 9-10 days and apparently she has been tolerating C Pap trials to some extent but mental status prevents extubation. Treating team was discussing with family trach/PEG. Apparently family requested transfer back to [place] because they live locally here and wanted her closer to home. Apparently she had been sedated initially with propofol but then was on Precedex from 11/12-11/14. Appears she has been off all continuous sedation since 11/14. Subjective 11/19 No acute events overnight. Palliative care has been consult at family meeting is scheduled for today. After family meeting will will discuss placement of tracheostomy and/or and PEG, based on family's wishes. 11/20: Afebrile .No change in neurological status. Consult placed for tracheostomy and PEG placement as requested by family yesterday. 11/21: Afebrile. Tracheostomy plan for some time next week with general surgery , will try to coordinate with GI for PEG placement. 11/22 No acute events overnight. FOr PEG tube placement today. Afebrile. On no sedation. 11/23 Patient remains intubated on no sedation s/p PEG tube placement yesterday for trach today. Afebrile. 11/24 No acute events overnight. For trach today. Afebrile. 11/25 Patient s/p trach yesterday had an episode of emesis overnight and tube feeds placed on hold. Afebrile. 11/26 Patient is on ventilator via trach tolerated tube feeds during day however she had another episode of emesis overnight and tube feeds placed on hold. 11/27 Patient noted to have bloody secretions with suctioning and around trach site. Spiked fever with : 101.3 at 3am. Tolerated CPAP x 4 hrs and TP 2.5 hrs yesterday. 11/28 No acute events overnight. Afebrile. Tolerated CPAP x 2 hrs yesterday. Bloody secretions resolved. Afebrile. 11/29 Patient remains on ventilator via trach on sedation tolerating CPAP trials. 11/30 Patient spiked fever with T: 101.0 last night. On ventilator via trach. Tolerating tube feeds. 12/01: Remains on mechanical ventilation via tracheostomy. 12/02: Remains encephalopathic, on mechanical ventilation via tracheostomy. Tolerating tube feeds. Off all sedation. 12/03: Remains encephalopathic, on mechanical ventilation via tracheostomy. Remains off all sedation. Tolerating PEG feeds 12/04: Opens eyes however remains encephalopathic and not following commands. On mechanical ventilation via tracheostomy. Tolerated TPs during daytime yesterday. Tolerating PEG feeds. 12/05: Remains encephalopathic, on mech vent via trach. Daily C Pap trials. 12/06: Remains encephalopathic. Has spontaneous eye opening however not tracking. Remains on mechanical ventilation via tracheostomy. Daily C Pap trials ongoing. 12/07: Remains encephalopathic. On mechanical ventilation via tracheostomy. Daily C Pap trials. 12/08: Remains encephalopathic, on mechanical ventilation via tracheostomy. No significant neurologic improvement. Daily C Pap trials ongoing. 12/09: Patient has been maintained on trach collar for greater than 24 hours. Mental status unchanged. 12/10: Patient continues on trach collar at 28% FiO2. Antibiotics discontinued. Repeat urine culture obtained. 12/11: No acute events overnight. Trach sutures removed today. The patient continues on trach collar 28%. Afebrile 12/12: The patient remains encephalopathic. Patient's on trach collar continues on 28% FiO2. Urine culture negative. 12/13: The patient was noted to have a slight increase in respiratory rate, appeared to be slightly labored breathing. Patient suctioned well, and closely monitored with resolution of symptomatology. The patient remains encephalopathic. Doing well on trach collar 12/14: The patient was noted to have thickened yellow tracheal secretions, culture and Gram stain sent. The patient remains encephalopathic. Continues on FiO2 of 28% 12/15: Afebrile .Remains encephalopathic. The patient continues on trach collar. Sputum culture still pending. Objective Vital Signs Date Time Temp Pulse Resp B/P Pulse Ox O2 Delivery O2 Flow Rate FiO2 12/15/16 11:54 94 T-piece 6.00 28 12/15/16 11:00 91 14 131/68 12/15/16 08:00 98.5 Intake and Output 12/14/16 12/14/16 12/15/16 08:00 16:00 00:00 Intake Total 605 ml 730 ml 580 ml Output Total 350 ml 800 ml 350 ml Balance 255 ml -70 ml 230 ml Result Diagram: 12/14/16 0453 12/14/16 0453 Imaging Last Impressions Chest X-Ray 12/01/16 0000 Signed Impressions: Service Date/Time: Thursday, December 01, 2016 02:37 - CONCLUSION: Improving left lower lung infiltrate. Clif Jacobo MD Abdomen X-Ray 11/26/16 0000 Signed Impressions: Service Date/Time: Saturday, November 26, 2016 10:18 - CONCLUSION: Distended stomach otherwise nonspecific abdomen. Jackson Murillo MD Brain MRI 11/18/16 0825 Signed Impressions: Service Date/Time: November 18:14 - CONCLUSION: Large evolving bifrontal infarctions Nghia Pacheco MD Last Impressions Chest X-Ray 11/27/16 0000 Signed Impressions: Service Date/Time: Sunday, November 27, 2016 08:27 - CONCLUSION: Left base atelectasis, consolidation and suspected effusion. Nghia Camacho MD Abdomen X-Ray 11/26/16 0000 Signed Impressions: Service Date/Time: Saturday, November 26, 2016 10:18 - CONCLUSION: Distended stomach otherwise nonspecific abdomen. Jackson Murillo MD Brain MRI 11/18/16 0825 Signed Impressions: Service Date/Time: November 18:14 - CONCLUSION: Large evolving bifrontal infarctions Nghia Pacheco MD Objective Remarks BP 122/64 P 86 RR 21 O2 [id number] GENERAL: Patient is 65 yo on ventilator via trach, nonresponsive SKIN: Warm and dry. HEAD: Normocephalic. EYES: No scleral icterus. No injection or drainage. NECK: Supple, trachea midline. No JVD or lymphadenopathy. Trach in place CARDIOVASCULAR: Regular rate and rhythm without murmurs, gallops, or rubs. RESPIRATORY: Breath sounds equal bilaterally. No accessory muscle use. GASTROINTESTINAL: Abdomen soft, non-tender, nondistended. PEG tube in place MUSCULOSKELETAL: No cyanosis, or edema. Neuro: Opens eyes however remains encephalopathic and does not follow commands. Date of Insertion: Nov 19, 2016 A/P Assessment and Plan NEURO: Bifrontal strokes Moyamoya Seizures Keppra 1500 mg IV twice a day Continue ASA Continue bromocriptine 2.5 mg by mouth BID Atorvastatin 40 mg by mouth daily EEG-noted sharp spikes Neurology is following-Dr. Flores Has been evaluated tertiary care center and felt to not be a candidate for further intervention. RESP: Respiratory failure COPD Continue with vent support keep sat >92% Bronchodilators, ICU vent bundle s/p trach 11/24. Pulm toilet, trach care CXR 11/27 Left base atelectasis vs consolidation 12/09 -Trach collar 28% at 6 L/m 12/14 thickened secretions sputum culture CV: Coronary artery disease with prior myocardial infarction Hypertension Monitor HR and BP keep MAP>65mmHg. Continue with ASA, statin GI: Dysphagia s/p PEG tube placement 11/22 Continue TF(Jevity 1.5 with goal rate 60 mL per hour) monitor for residuals- minimal On Protonix 40mg IV daily for GI prophylaxis Monitor LFT's ( resolved) US liver: Cholelithiasis Bowel regimen with Colace, Senna , Miralax, Lactulose. BM 12/15 : Monitor renal function, I/O's, electrolytes replacement per protocol. On Bumex 1mg daily. ID: 11/25 Sputum cx: Staph species, Kleb pneumonia both sensitive to Rocephin 11/25 Urine: Kleb pneumonia Follow up on BC from 11/27- NGTD on Rocephin 1gram daily. Monitor for signs and symptoms of infection. Discontinued 12/10 BC x 2 sets drawn on 11/30 with no growth, sputum and urine cx 11/29 growing klebsiella 12/09 Repeat urine culture -NGTD 12/14 Sputum culture follow-up results HEME: Monitor CBC, lab draws every 2-3 days ENDO: Euglycemic PROPH: Hold DVT prophylaxis per neurology secondary to bilateral CVAs. Protonix 40 mg IV daily for stress ulcer prophylaxis. ACCESS: Peripheral IV's x 2. Palliative care medicine is following Case management continued evaluation for LTAC placement. Level 3 Dispo: Discussed with MOTORS AND CONTROLS TESTER at bedside Physician Nieves Childs MD December 15, 2016 17:21
[2016-12-16] VITALS (19 sets, daily range): BP systolic 131–161; BP diastolic 60–84; PULSE 89–119; RESP 14–23; TEMP 97.9–100.3; O2SAT 89–97
[2016-12-16] MEDS: INSULIN NovoLIN REGULAR SUPPLEMENTAL SCALE SQ SCH ×4 (02:00→20:00)
[2016-12-16] MEDS: CHLORHEXIDINE GLUCONATE 2 % 1 PACK (2 CLOTHS) TOP SCH (03:33)
[2016-12-16 06:00] LABS: HEMATOCRIT 30.9 % (35.0-46.0); MEAN CELL VOLUME 80.7 FL (80.0-100.0); MEAN CORPUSCULAR HEMOGLOBIN 26.5 PG (27.0-34.0); MEAN CORPUSCULAR HGB CONC 32.8 % (32.0-36.0); PLATELET COUNT 569 TH/MM3 (150-450); RED BLOOD COUNT 3.83 MIL/MM3 (4.00-5.30); RED CELL DISTRIBUTION WIDTH 16.3 % (11.6-17.2); REVIEW FLAG FINAL; WHITE BLOOD COUNT 8.1 TH/MM3 (4.0-11.0)
[2016-12-16 06:25] LABS: BICARBONATE 33.7 MEQ/L (21.0-32.0); MAGNESIUM 2.4 MG/DL (1.5-2.5)
[2016-12-16] MEDS: PANTOPRAZOLE SODIUM 40 MG VIAL IV SCH (08:59)
[2016-12-16] MEDS: SENNOSIDES SYRUP 8.8 MG/5 ML CUP PO SCH ×2 (08:59→21:24)
[2016-12-16] MEDS: BUMETANIDE INJ 1 MG/4 ML VIAL IV PUSH SCH (08:59)
[2016-12-16] MEDS: FOLIC ACID 1 MG TAB OG-TUBE SCH (08:59)
[2016-12-16] MEDS: LACTULOSE SYRUP 20 GM/30 ML CUP PO SCH ×2 (08:59→21:24)
[2016-12-16] MEDS: levETIRAcetam INJ 500 MG in SODIUM CHLORIDE 0.9% INJ 100 ML IV SCH ×2 (09:00→21:24)
[2016-12-16] MEDS: ASPIRIN 81 MG CHEW TAB NG SCH (09:00)
[2016-12-16] MEDS: POLYETHYLENE GLYCOL 17 GM PKG PO SCH (09:00)
[2016-12-16] MEDS: SODIUM CHLORIDE 0.9% FLUSH 10 ML FLUSH IV FLUSH SCH ×2 (09:00→21:25)
[2016-12-16] MEDS: levETIRAcetam 1000 MG INJ 100 ML IV SCH ×2 (09:00→21:22)
[2016-12-16] MEDS: ATORVASTATIN 40 MG TAB PO SCH (09:00)
[2016-12-16] MEDS: DOCUSATE SODIUM 100 MG/10 ML UDC PO SCH ×2 (09:01→21:24)
[2016-12-16] MEDS: CHLORHEXIDINE 0.12% (ORAL KIT) 15 ML CUP MT SCH ×2 (09:02→20:00)
[2016-12-16] MEDS: BROMOCRIPTINE MESYLATE 2.5 MG TAB OG-TUBE SCH ×2 (09:04→21:27)
--- NOTE | 2016-12-16 15:17 | HHI.CCPN ---
Subjective Remarks/Hospital Course 65-year-old female with past medical history of stroke for which she at one point was on warfarin but had been discontinued. She was was admitted to [facility] emergency department 11/04/16 with difficulty getting her thoughts together. She was found to have multifocal nonhemorrhagic infarcts in left frontal and parietal regions, right frontal lobe and history of moyamoya disease. She was initially awake and following commands with weakness of RLE and some aphasia. She was transferred to [facility] where he had an cerebral angiogram consistent with moyamoya. There were plans to perform extracranial/intracranial bypass. However she had a seizure and ended up being intubated for status either 11/09 or 11/10.. She was found to have a new right frontal infarct area and she was started on Dilantin and Keppra and it was felt that she would not be a candidate for intervention. She has been intubated 9-10 days and apparently she has been tolerating C Pap trials to some extent but mental status prevents extubation. Treating team was discussing with family trach/PEG. Apparently family requested transfer back to [place] because they live locally here and wanted her closer to home. Apparently she had been sedated initially with propofol but then was on Precedex from 11/12-11/14. Appears she has been off all continuous sedation since 11/14. Subjective 11/19 No acute events overnight. Palliative care has been consult at family meeting is scheduled for today. After family meeting will will discuss placement of tracheostomy and/or and PEG, based on family's wishes. 11/20: Afebrile .No change in neurological status. Consult placed for tracheostomy and PEG placement as requested by family yesterday. 11/21: Afebrile. Tracheostomy plan for some time next week with general surgery , will try to coordinate with GI for PEG placement. 11/22 No acute events overnight. FOr PEG tube placement today. Afebrile. On no sedation. 11/23 Patient remains intubated on no sedation s/p PEG tube placement yesterday for trach today. Afebrile. 11/24 No acute events overnight. For trach today. Afebrile. 11/25 Patient s/p trach yesterday had an episode of emesis overnight and tube feeds placed on hold. Afebrile. 11/26 Patient is on ventilator via trach tolerated tube feeds during day however she had another episode of emesis overnight and tube feeds placed on hold. 11/27 Patient noted to have bloody secretions with suctioning and around trach site. Spiked fever with : 101.3 at 3am. Tolerated CPAP x 4 hrs and TP 2.5 hrs yesterday. 11/28 No acute events overnight. Afebrile. Tolerated CPAP x 2 hrs yesterday. Bloody secretions resolved. Afebrile. 11/29 Patient remains on ventilator via trach on sedation tolerating CPAP trials. 11/30 Patient spiked fever with T: 101.0 last night. On ventilator via trach. Tolerating tube feeds. 12/01: Remains on mechanical ventilation via tracheostomy. 12/02: Remains encephalopathic, on mechanical ventilation via tracheostomy. Tolerating tube feeds. Off all sedation. 12/03: Remains encephalopathic, on mechanical ventilation via tracheostomy. Remains off all sedation. Tolerating PEG feeds 12/04: Opens eyes however remains encephalopathic and not following commands. On mechanical ventilation via tracheostomy. Tolerated TPs during daytime yesterday. Tolerating PEG feeds. 12/05: Remains encephalopathic, on mech vent via trach. Daily C Pap trials. 12/06: Remains encephalopathic. Has spontaneous eye opening however not tracking. Remains on mechanical ventilation via tracheostomy. Daily C Pap trials ongoing. 12/07: Remains encephalopathic. On mechanical ventilation via tracheostomy. Daily C Pap trials. 12/08: Remains encephalopathic, on mechanical ventilation via tracheostomy. No significant neurologic improvement. Daily C Pap trials ongoing. 12/09: Patient has been maintained on trach collar for greater than 24 hours. Mental status unchanged. 12/10: Patient continues on trach collar at 28% FiO2. Antibiotics discontinued. Repeat urine culture obtained. 12/11: No acute events overnight. Trach sutures removed today. The patient continues on trach collar 28%. Afebrile 12/12: The patient remains encephalopathic. Patient's on trach collar continues on 28% FiO2. Urine culture negative. 12/13: The patient was noted to have a slight increase in respiratory rate, appeared to be slightly labored breathing. Patient suctioned well, and closely monitored with resolution of symptomatology. The patient remains encephalopathic. Doing well on trach collar 12/14: The patient was noted to have thickened yellow tracheal secretions, culture and Gram stain sent. The patient remains encephalopathic. Continues on FiO2 of 28% 12/15: Afebrile .Remains encephalopathic. The patient continues on trach collar. Sputum culture still pending. 12/16: Afebrile. Sputum culture resulted staph aureus, and gram-negative rods. ID following. The patient remains encephalopathic. Continues on trach collar with FiO2 28%. Objective Vital Signs Date Time Temp Pulse Resp B/P Pulse Ox O2 Delivery O2 Flow Rate FiO2 12/16/16 12:00 98.0 107 18 131/60 92 12/16/16 12:00 T-Piece 28 12/15/16 22:25 6.00 Intake and Output 12/15/16 12/15/16 12/16/16 08:00 16:00 00:00 Intake Total 520 ml 864 ml 693 ml Output Total 350 ml 1000 ml 350 ml Balance 170 ml -136 ml 343 ml Result Diagram: 12/16/16 0529 12/16/16 0529 Imaging Last Impressions Chest X-Ray 12/01/16 0000 Signed Impressions: Service Date/Time: Thursday, December 01, 2016 02:37 - CONCLUSION: Improving left lower lung infiltrate. Clif Jacobo MD Abdomen X-Ray 11/26/16 0000 Signed Impressions: Service Date/Time: Saturday, November 26, 2016 10:18 - CONCLUSION: Distended stomach otherwise nonspecific abdomen. Jackson Murillo MD Brain MRI 11/18/16 0825 Signed Impressions: Service Date/Time: November 18:14 - CONCLUSION: Large evolving bifrontal infarctions Nghia Pacheco MD Last Impressions Chest X-Ray 11/27/16 0000 Signed Impressions: Service Date/Time: Sunday, November 27, 2016 08:27 - CONCLUSION: Left base atelectasis, consolidation and suspected effusion. Nghia Camacho MD Abdomen X-Ray 11/26/16 0000 Signed Impressions: Service Date/Time: Saturday, November 26, 2016 10:18 - CONCLUSION: Distended stomach otherwise nonspecific abdomen. Jackson Murillo MD Brain MRI 11/18/16 0825 Signed Impressions: Service Date/Time: November 18:14 - CONCLUSION: Large evolving bifrontal infarctions Nghia Pacheco MD Objective Remarks BP 138/94 P 104 RR 21 O2 [id number]% GENERAL: Patient is 65 yo on ventilator via trach, nonresponsive SKIN: Warm and dry. HEAD: Normocephalic. EYES: No scleral icterus. No injection or drainage. NECK: Supple, trachea midline. No JVD or lymphadenopathy. Trach in place CARDIOVASCULAR: Regular rate and rhythm without murmurs, gallops, or rubs. RESPIRATORY: Breath sounds equal bilaterally. No accessory muscle use. GASTROINTESTINAL: Abdomen soft, non-tender, nondistended. PEG tube in place MUSCULOSKELETAL: No cyanosis, or edema. Neuro: Opens eyes however remains encephalopathic and does not follow commands. Urinary Catheter: Yes Date of Insertion: Nov 19, 2016 A/P Assessment and Plan NEURO: Bifrontal strokes Moyamoya Seizures Keppra 1500 mg IV twice a day Continue ASA Continue bromocriptine 2.5 mg by mouth BID Atorvastatin 40 mg by mouth daily EEG-noted sharp spikes Neurology is following-Dr. Flores Has been evaluated tertiary care center and felt to not be a candidate for further intervention. RESP: Respiratory failure COPD Continue with vent support keep sat >92% Bronchodilators, ICU vent bundle s/p trach 11/24. Pulm toilet, trach care CXR 11/27 Left base atelectasis vs consolidation 12/09 -Trach collar 28% at 6 L/m 12/14 thickened secretions sputum culture CV: Coronary artery disease with prior myocardial infarction Hypertension Monitor HR and BP keep MAP>65mmHg. Continue with ASA, statin GI: Dysphagia s/p PEG tube placement 11/22 Continue TF(Jevity 1.5 with goal rate 60 mL per hour) monitor for residuals- minimal On Protonix 40mg IV daily for GI prophylaxis Monitor LFT's ( resolved) US liver: Cholelithiasis Bowel regimen with Colace, Senna , Miralax, Lactulose. BM 12/16 : Monitor renal function, I/O's, electrolytes replacement per protocol. On Bumex 1mg daily. ID: 11/25 Sputum cx: Staph species, Kleb pneumonia both sensitive to Rocephin 11/25 Urine: Kleb pneumonia Follow up on BC from 11/27- NGTD on Rocephin 1gram daily. Monitor for signs and symptoms of infection. Discontinued 12/10 BC x 2 sets drawn on 11/30 with no growth, sputum and urine cx 11/29 growing klebsiella 12/09 Repeat urine culture -NGTD 12/14 Sputum culture -staph aureus, gram negative rods HEME: Monitor CBC, lab draws every 2-3 days ENDO: Euglycemic PROPH: Hold DVT prophylaxis per neurology secondary to bilateral CVAs. Protonix 40 mg IV daily for stress ulcer prophylaxis. ACCESS: Peripheral IV's x 2. Palliative care medicine is following Case management continued evaluation for LTAC placement. Level 3 Dispo: Discussed with SENIOR TEST ENGINEER at bedside Physician Nieves Childs MD December 16, 2016 15:17
[2016-12-16] MEDS: ACETAMINOPHEN/HYDROcodone 325 MG/5 MG TAB PO PRN (21:29)
[2016-12-17] VITALS (20 sets, daily range): BP systolic 105–142; BP diastolic 51–84; PULSE 79–116; RESP 15–22; TEMP 97.7–100.4; O2SAT 92–96
[2016-12-17] MEDS: INSULIN NovoLIN REGULAR SUPPLEMENTAL SCALE SQ SCH ×3 (01:29→20:00)
[2016-12-17] MEDS: CHLORHEXIDINE GLUCONATE 2 % 1 PACK (2 CLOTHS) TOP SCH (02:47)
--- NOTE | 2016-12-17 05:31 | RADRPT ---
EXAM DATE/TIME: 12/17/2016 02:52 [facility] COMPARISON: CHEST SINGLE AP, December 01, 2016, 2:37. INDICATIONS : Shortness of breath. MEDICAL HISTORY : Hypertension. Chronic obstructive pulmonary disease. Myocardial infarction. SURGICAL HISTORY : None. ENCOUNTER: Subsequent ACUITY: 1 month PAIN SCORE: Non-responsive. LOCATION: Bilateral chest FINDINGS: The tracheostomy tube remains in place. There is no pneumothorax. There is improving aeration of the left lung base compared to the prior study. No new infiltrates are seen. There are no pleural effusio ns. The heart size is stable. CONCLUSION: Improving aeration of the left lower lung compared to the prior study. No new infiltrates. Clif Jacobo MD on December 17, 2016 at 5:29 Board Certified Radiologist. This report was verified electronically.
--- NOTE | 2016-12-17 08:03 | HHI.CCPN ---
Subjective Remarks/Hospital Course 65-year-old female with past medical history of stroke for which she at one point was on warfarin but had been discontinued. She was was admitted to [facility] emergency department 11/04/16 with difficulty getting her thoughts together. She was found to have multifocal nonhemorrhagic infarcts in left frontal and parietal regions, right frontal lobe and history of moyamoya disease. She was initially awake and following commands with weakness of RLE and some aphasia. She was transferred to [facility] where he had an cerebral angiogram consistent with moyamoya. There were plans to perform extracranial/intracranial bypass. However she had a seizure and ended up being intubated for status either 11/09 or 11/10.. She was found to have a new right frontal infarct area and she was started on Dilantin and Keppra and it was felt that she would not be a candidate for intervention. She has been intubated 9-10 days and apparently she has been tolerating C Pap trials to some extent but mental status prevents extubation. Treating team was discussing with family trach/PEG. Apparently family requested transfer back to [place] because they live locally here and wanted her closer to home. Apparently she had been sedated initially with propofol but then was on Precedex from 11/12-11/14. Appears she has been off all continuous sedation since 11/14. Subjective 11/19 No acute events overnight. Palliative care has been consult at family meeting is scheduled for today. After family meeting will will discuss placement of tracheostomy and/or and PEG, based on family's wishes. 11/20: Afebrile .No change in neurological status. Consult placed for tracheostomy and PEG placement as requested by family yesterday. 11/21: Afebrile. Tracheostomy plan for some time next week with general surgery , will try to coordinate with GI for PEG placement. 11/22 No acute events overnight. FOr PEG tube placement today. Afebrile. On no sedation. 11/23 Patient remains intubated on no sedation s/p PEG tube placement yesterday for trach today. Afebrile. 11/24 No acute events overnight. For trach today. Afebrile. 11/25 Patient s/p trach yesterday had an episode of emesis overnight and tube feeds placed on hold. Afebrile. 11/26 Patient is on ventilator via trach tolerated tube feeds during day however she had another episode of emesis overnight and tube feeds placed on hold. 11/27 Patient noted to have bloody secretions with suctioning and around trach site. Spiked fever with : 101.3 at 3am. Tolerated CPAP x 4 hrs and TP 2.5 hrs yesterday. 11/28 No acute events overnight. Afebrile. Tolerated CPAP x 2 hrs yesterday. Bloody secretions resolved. Afebrile. 11/29 Patient remains on ventilator via trach on sedation tolerating CPAP trials. 11/30 Patient spiked fever with T: 101.0 last night. On ventilator via trach. Tolerating tube feeds. 12/01: Remains on mechanical ventilation via tracheostomy. 12/02: Remains encephalopathic, on mechanical ventilation via tracheostomy. Tolerating tube feeds. Off all sedation. 12/03: Remains encephalopathic, on mechanical ventilation via tracheostomy. Remains off all sedation. Tolerating PEG feeds 12/04: Opens eyes however remains encephalopathic and not following commands. On mechanical ventilation via tracheostomy. Tolerated TPs during daytime yesterday. Tolerating PEG feeds. 12/05: Remains encephalopathic, on mech vent via trach. Daily C Pap trials. 12/06: Remains encephalopathic. Has spontaneous eye opening however not tracking. Remains on mechanical ventilation via tracheostomy. Daily C Pap trials ongoing. 12/07: Remains encephalopathic. On mechanical ventilation via tracheostomy. Daily C Pap trials. 12/08: Remains encephalopathic, on mechanical ventilation via tracheostomy. No significant neurologic improvement. Daily C Pap trials ongoing. 12/09: Patient has been maintained on trach collar for greater than 24 hours. Mental status unchanged. 12/10: Patient continues on trach collar at 28% FiO2. Antibiotics discontinued. Repeat urine culture obtained. 12/11: No acute events overnight. Trach sutures removed today. The patient continues on trach collar 28%. Afebrile 12/12: The patient remains encephalopathic. Patient's on trach collar continues on 28% FiO2. Urine culture negative. 12/13: The patient was noted to have a slight increase in respiratory rate, appeared to be slightly labored breathing. Patient suctioned well, and closely monitored with resolution of symptomatology. The patient remains encephalopathic. Doing well on trach collar 12/14: The patient was noted to have thickened yellow tracheal secretions, culture and Gram stain sent. The patient remains encephalopathic. Continues on FiO2 of 28% 12/15: Afebrile .Remains encephalopathic. The patient continues on trach collar. Sputum culture still pending. 12/16: Afebrile. Sputum culture resulted staph aureus, and gram-negative rods. ID following. The patient remains encephalopathic. Continues on trach collar with FiO2 28%. 12/17 No events overnight. Afebrile. On TP's with 28% FIO2. CXR this morning improved aeration of left lower lung. Objective Vital Signs Date Time Temp Pulse Resp B/P Pulse Ox O2 Delivery O2 Flow Rate FiO2 12/17/16 06:00 79 12/17/16 04:00 97.9 22 128/84 94 12/16/16 22:12 T-piece 6.00 28 Intake and Output 12/16/16 12/16/16 12/17/16 08:00 16:00 00:00 Intake Total 466 ml 767 ml 742 ml Output Total 350 ml 800 ml 650 ml Balance 116 ml -33 ml 92 ml Result Diagram: 12/16/16 0529 12/16/16 0529 Imaging Last Impressions Chest X-Ray 12/17/16 0600 Signed Impressions: Service Date/Time: Saturday, December 17, 2016 02:52 - CONCLUSION: Improving aeration of the left lower lung compared to the prior study. No new infiltrates. Clif Jacobo MD Abdomen X-Ray 11/26/16 0000 Signed Impressions: Service Date/Time: Saturday, November 26, 2016 10:18 - CONCLUSION: Distended stomach otherwise nonspecific abdomen. Jackson Murillo MD Brain MRI 11/18/16 0825 Signed Impressions: Service Date/Time: November 18:14 - CONCLUSION: Large evolving bifrontal infarctions Nghia Pacheco MD Objective Remarks GENERAL: Patient is 65 yo on ventilator via trach, nonresponsive SKIN: Warm and dry. HEAD: Normocephalic. EYES: No scleral icterus. No injection or drainage. NECK: Supple, trachea midline. No JVD or lymphadenopathy. Trach in place CARDIOVASCULAR: Regular rate and rhythm without murmurs, gallops, or rubs. RESPIRATORY: Breath sounds equal bilaterally. No accessory muscle use. GASTROINTESTINAL: Abdomen soft, non-tender, nondistended. PEG tube in place MUSCULOSKELETAL: No cyanosis, or edema. Neuro: Opens eyes however remains encephalopathic and does not follow commands. Date of Insertion: Nov 19, 2016 A/P Assessment and Plan NEURO: Bifrontal strokes Moyamoya Seizures Keppra 1500 mg IV twice a day Continue ASA Continue bromocriptine 2.5 mg by mouth BID Atorvastatin 40 mg by mouth daily EEG-noted sharp spikes Neurology is following-Dr. Flores Has been evaluated tertiary care center and felt to not be a candidate for further intervention. RESP: Respiratory failure COPD Continue with oxygen keep sat >92% Bronchodilators, ICU vent bundle s/p trach 11/24. Pulm toilet, trach care CXR today improved aeration of left lower lung, CV: Coronary artery disease with prior myocardial infarction Hypertension Monitor HR and BP keep MAP>65mmHg. Continue with ASA, statin GI: Dysphagia s/p PEG tube placement 11/22 Continue TF(Jevity 1.5 with goal rate 60 mL per hour) monitor for residuals- minimal On Protonix 40mg IV daily for GI prophylaxis Monitor LFT's ( resolved) US liver: Cholelithiasis Bowel regimen with Colace, Senna , Miralax, Lactulose. : Monitor renal function, I/O's, electrolytes replacement per protocol. d/c Bumex ID: 11/25 Sputum cx: Staph species, Kleb pneumonia both sensitive to Rocephin 11/25 Urine: Kleb pneumonia BC from 11/27- NGTD BC x 2 sets drawn on 11/30 with no growth, sputum and urine cx 11/29 growing klebsiella 12/09 Repeat urine culture -NGTD 12/15 Sputum culture -staph aureus, gram negative rods- likely colonized. Patient is afebrile with no evidence of leukocytosis, CXR today overall improved. Off abx monitor for signs of infections ( Fever, WBC) HEME: Monitor CBC, ENDO: Euglycemic PROPH: Hold DVT prophylaxis per neurology secondary to bilateral CVAs. Protonix 40 mg IV daily for stress ulcer prophylaxis. ACCESS: Peripheral IV's x 2. Palliative care medicine is following Case management continued evaluation for LTAC placement. Level 3 Dispo: Discussed with 1ST GRADE TEACHER at bedside Missael Oneill MD December 17, 2016 08:03
[2016-12-17 08:27] LABS: HEMATOCRIT 31.1 % (35.0-46.0); MEAN CELL VOLUME 80.2 FL (80.0-100.0); MEAN CORPUSCULAR HGB CONC 32.4 % (32.0-36.0); PLATELET COUNT 548 TH/MM3 (150-450); RED BLOOD COUNT 3.87 MIL/MM3 (4.00-5.30); RED CELL DISTRIBUTION WIDTH 16.2 % (11.6-17.2); REVIEW FLAG FINAL; WHITE BLOOD COUNT 9.8 TH/MM3 (4.0-11.0)
[2016-12-17] MEDS: levETIRAcetam 1000 MG INJ 100 ML IV SCH ×2 (08:47→20:37)
[2016-12-17] MEDS: FOLIC ACID 1 MG TAB OG-TUBE SCH (08:49)
[2016-12-17] MEDS: BROMOCRIPTINE MESYLATE 2.5 MG TAB OG-TUBE SCH ×2 (08:49→20:38)
[2016-12-17] MEDS: ATORVASTATIN 40 MG TAB PO SCH (08:49)
[2016-12-17] MEDS: ASPIRIN 81 MG CHEW TAB NG SCH (08:49)
[2016-12-17] MEDS: levETIRAcetam INJ 500 MG in SODIUM CHLORIDE 0.9% INJ 100 ML IV SCH ×2 (08:49→20:43)
[2016-12-17] MEDS: PANTOPRAZOLE SODIUM 40 MG VIAL IV SCH (08:50)
[2016-12-17] MEDS: SODIUM CHLORIDE 0.9% FLUSH 10 ML FLUSH IV FLUSH SCH ×2 (08:50→20:39)
[2016-12-17 09:00] LABS: BICARBONATE 33.2 MEQ/L (21.0-32.0); MAGNESIUM 2.3 MG/DL (1.5-2.5); POTASSIUM 3.4 MEQ/L (3.5-5.1)
[2016-12-17] MEDS: POLYETHYLENE GLYCOL 17 GM PKG PO SCH (09:00)
[2016-12-17] MEDS: CHLORHEXIDINE 0.12% (ORAL KIT) 15 ML CUP MT SCH ×2 (09:03→20:00)
--- NOTE | 2016-12-17 12:00 | HHI.HCPN ---
Reason for visit a. To assist with evaluation and management of symptoms including: encephalopathy, seizure, dyspnea. b. To assist medical decision maker(s) with: better understanding of current medical conditions; weighing benefits/burdens of medical treatment options; making medical treatment decisions. . (Yuridia Almeida) Subjective/Interval History Pt seen to follow up on comfort , provide update to family. She is s/p trach/PEG. on T piece since 12/08. no sedation approx 2 week. Tolerating TF. + Bowel movements.+thick secretions midweek-- sputum culture sent 12/15, = staph aureus, and gram-negative rods. ID following. . CXR today = improved aeration of left lower lung. Will need terminal system operator placement- coverage pending per CM, applications/requests to local facilities, no accepting facility yet. Patient seen in room, No visitors present. On T piece 28% fio2. opens eyes spontaneously. Keeps eyes open during stimuli.+blink to threat. Does not track examiner. does not follow commands, no withdrawal to pain stimuli . D/w primary nurse, informed nurse family requesting update from neuro. Following exam call to pt dtcarolina Joyce -- earlier this week spoke to both dtrs. VM left for Maria Del Carmen today. . Family/friend interactions Call back from aliyah Joyce later, she indicates the family has spoken and requests dnr status. call back to dtcarolina Robertson to verify this, she indicates that she changed her mind , and that Maria Del Carmen and Dylan wanted DNR but that she does not agree. She would like a family meeting with her siblings, palliative if possible. She states she is not ready for DNR. She is going to talk more to her siblings this weekend; for now I will hold off on entering DNR. Call placed again to Maria Del Carmen-- review my conversation leonel Robertson. She indicates Marcelo is struggling w pt prognosis. Maria Del Carmen does not feel Ms Rivas would want resuscitation at this point. She seems to understand Ms Rivas overall prognosis , feels she does not currently have good quality of life. She is in agreement holding off on DNR until family can all be on same page. They will talk more over weekend, and possible family meeting w [facility] planned for Wednesday 12/20. ( Yuridia Almeida) Advance Directives Living Will: Never completed Health Care Surrogate: Never completed Durable Power of Morning Nanny: Never completed (Yuridia Almeida) Advance Directive Specifics Health Care Surrogate(s): No known written advance directives. Patient currently incapacitated to make her healthcare decisions. According to [place] statutes health care proxy decision-making falls to the majority of adult children. Patient has 3 children. . (Yuridia Almeida) Objective Vital Signs Date Time Temp Pulse Resp B/P Pulse Ox O2 Delivery O2 Flow Rate FiO2 12/17/16 08:01 95 T-piece 28 12/17/16 06:00 79 12/17/16 04:00 97.9 107 22 128/84 94 12/17/16 04:00 93 12/17/16 02:00 91 12/17/16 00:00 97.7 97 15 129/69 95 12/17/16 00:00 89 12/16/16 22:12 92 T-piece 6.00 28 12/16/16 22:00 92 12/16/16 20:00 111 12/16/16 20:00 100.3 119 23 155/84 94 12/16/16 20:00 T-Piece 28 Humidified 12/16/16 18:00 109 20 142/75 93 12/16/16 18:00 109 12/16/16 17:00 106 12/16/16 17:00 106 23 140/68 93 12/16/16 16:00 110 20 138/77 93 12/16/16 16:00 110 12/16/16 16:00 98.0 107 18 131/60 92 12/16/16 14:00 102 12/16/16 12:00 98.0 107 18 131/60 92 12/16/16 12:00 107 12/16/16 12:00 T-Piece 28 Intake & Output 12/17/16 12/17/16 07:00 19:00 Intake Total 1213 ml Output Total 1050 ml Balance 163 ml Intake Oral 0 ml IV Total 217 ml Tube Feeding 816 ml Other 180 ml Output Urine Total 1050 ml # Bowel Movements 1 Physical Exam CONSTITUTIONAL/GENERAL: minimally responsive, on T piece TUBES/LINES/DRAINS: PIV LALI extremity, Tracheostomy, PEG, Brown, SCDs, multipodus boots. CARDIOVASCULAR: Regular rate and rhythm RESPIRATORY/CHEST: trach midline. Symmetric, unlabored respirations via trach to 28% fio2 T piece . Clear to auscultation. GASTROINTESTINAL: Abdomen soft, nondistended. Bowel sounds active. +PEG LUQ site asymptomatic, +TF infusing GENITOURINARY: Without palpable bladder distension. Brown catheter in place- clear yellow urine. NEUROLOGICAL: Eyes open spontaneous. Does not track examiner. Extremities with no withdrawal to pain. PSYCHIATRIC: off sedation > 2 week. Limited clinical assessment, non-responsive , no signs of anxiety . (Yuridia Almeida) Diagnostic Tests Laboratory Laboratory Tests Test 12/16/16 12/17/16 05:29 08:00 White Blood Count 8.1 TH/MM3 9.8 TH/MM3 (4.0-11.0) (4.0-11.0) Red Blood Count 3.83 MIL/MM3 3.87 MIL/MM3 (4.00-5.30) (4.00-5.30) Hemoglobin 10.2 GM/DL 10.1 GM/DL (11.6-15.3) (11.6-15.3) Hematocrit 30.9 % 31.1 % (35.0-46.0) (35.0-46.0) Mean Corpuscular Volume 80.7 FL 80.2 FL (80.0-100.0) (80.0-100.0) Mean Corpuscular Hemoglobin 26.5 PG 26.0 PG (27.0-34.0) (27.0-34.0) Mean Corpuscular Hemoglobin 32.8 % 32.4 % Concent (32.0-36.0) (32.0-36.0) Red Cell Distribution Width 16.3 % 16.2 % (11.6-17.2) (11.6-17.2) Platelet Count 569 TH/MM3 548 TH/MM3 (150-450) (150-450) Mean Platelet Volume 7.7 FL 7.9 FL (7.0-11.0) (7.0-11.0) Sodium Level 141 MEQ/L 143 MEQ/L (136-145) (136-145) Potassium Level 4.0 MEQ/L 3.4 MEQ/L (3.5-5.1) (3.5-5.1) Chloride Level 100 MEQ/L 102 MEQ/L (98-107) (98-107) Carbon Dioxide Level 33.7 MEQ/L 33.2 MEQ/L (21.0-32.0) (21.0-32.0) Anion Gap 7 MEQ/L (5-15) 8 MEQ/L (5-15) Blood Urea Nitrogen 32 MG/DL (7-18) 32 MG/DL (7-18) Creatinine 0.49 MG/DL 0.47 MG/DL (0.50-1.00) (0.50-1.00) Estimat Glomerular Filtration 128 ML/MIN 134 ML/MIN Rate (>89) (>89) Random Glucose 102 MG/DL 146 MG/DL (74-106) (74-106) Calcium Level 9.2 MG/DL 9.0 MG/DL (8.5-10.1) (8.5-10.1) Phosphorus Level 3.6 MG/DL 3.6 MG/DL (2.5-4.9) (2.5-4.9) Magnesium Level 2.4 MG/DL 2.3 MG/DL (1.5-2.5) (1.5-2.5) (Yuridia Almeida) Result Diagram: 12/17/16 0800 12/17/16 0800 Microbiology Microbiology Date/Time Procedure Status Source Growth 12/15/16 04:00 Gram Stain - Final Complete Sputum Endotracheal 12/15/16 04:00 Sputum Culture - Final Complete Staphylococcus Aureus Pseudomonas Aeruginosa Imaging Last Impressions Chest X-Ray 12/17/16 0600 Signed Impressions: Service Date/Time: Saturday, December 17, 2016 02:52 - CONCLUSION: Improving aeration of the left lower lung compared to the prior study. No new infiltrates. Clif Jacobo MD Abdomen X-Ray 11/26/16 0000 Signed Impressions: Service Date/Time: Saturday, November 26, 2016 10:18 - CONCLUSION: Distended stomach otherwise nonspecific abdomen. Jackson Murillo MD Brain MRI 11/18/16 0825 Signed Impressions: Service Date/Time: November 18:14 - CONCLUSION: Large evolving bifrontal infarctions Nghia Pacheco MD (Yuridia Almeida) Assessment and Plan Disease Oriented Problem List: (1) CVA (cerebral vascular accident) (2) Moyamoya disease (3) Seizure Comment: On Keppra . (4) Generalized weakness Symptom Scale: (1) Seizure 0-10 Scale: 0 (2) Generalized weakness 0-10 Scale: Unable to quantify (3) Dyspnea 0-10 Scale: Unable to quantify Comment: On mechanical ventilation Pertinent Non-Medical Issues Psychosocial: Single. Has 2 daughters and one son. Spiritual: unknown. Legal: Ethical issues impacting care: No known concerns at this time. . Important Contacts * Maria Del Carmen Riavs, daughter: [phone] * Marcelo Rivas, daughter: [phone] * Dwight Rivas, son: [phone] . Prognosis MRI/EEG reviewed by neurology, prognosis felt to be poor, infarct noted to be huge. Patient may wake some in 6 months. Given extent of infarct, I would not expect patient to regain significant functional or cognitive status. Code Status: Full Code Plan * Patient is incapacitated to make healthcare decisions. No known written advanced directives. According to [place] Statutes, health care proxy decision making falls to majority of adult children. Patient has 2 daughters (Marcelo Joyce) and 1 son (Dwight). * CODE STATUSFULL CODE * GOALS: prev met with 2/3 family members. Goals have been aggressive, they verbalized they want to cont all available treatments to give pt more time for possible recovery. Update provided to daughter Maria Del Carmen 12/14/16, goals remain aggressive. Later spoke with other daughter (Marcelo). Family is requesting follow up meeting with neurology, or phone call to review condition and options , and requesting additional brain imaging. call to Dr ulloa office to notify of this request, left message with wet mix operator Spoke with Both with 2 patient daughters today 12/17 (separate phone conversations); they're having discussions regarding CODE STATUS, nadeem Robertson is struggling with DNR for now patient to remain full code. They're going to talk more as a family over the weekend, possible palliative meeting with family Tuesday12/20/16. * SYMPTOMS: Seizure: hx seizures 2/2 CVA --patient remains on Keppra ; no visualized sz reported Weakness: due to prolonged hospital course, bilateral infarcts. Not regaining any purposeful or spontaneous movements as of yet. Dyspnea: remains on mech vent. Off sedation. tolerating T Piece . No signs of tachypnea now, reported episode earlier, requiring sx. will continue to monitor. Encephalopathy: minimally responsive at this time off sedation > 1 week. Will monitor. Constipation: resolved. Last BM 12/13 * Palliative care will continue to follow during hospital course as condition evolves, to assist patient/decision-maker with understanding of medical conditions, weighing benefits/burdens of treatment options, for clarification of goals of treatment. Additionally will assist with any symptoms of palliative concern. . (Yuridia Almeida) Attestation To help prompt me to consider important information that might be impacting today's encounter and assessment, information from prior notes written by myself or my colleagues may have been "brought forward" into today's note. My signature on this note, however, is an attestation that I personally performed the exam, history, and/or decision-making noted today, and, unless otherwise indicated, the interactions with patient, family, and staff as well as the review of records all occurred today. I also attest that the listed assessment and stated plan reflect my best clinical judgment today based on the combination of historical information, prior notes, and today's exam/ interactions. When time spent is documented, it refers only to time spent today by the signer, or if indicated, combined time spent today by collaborating physician/nurse practitioner. (Yuridia Almeida) Collaborating MD Comments . Chart reviewed. Case discussed with palliative care JEWELRY DEPARTMENT SUPERVISOR. I have reviewed above JAYLA note and I concur. . (Stephen Lombardo MD) Yuridia Almeida December 17, 2016 12:00 Stephen Lombardo MD January 04, 2017 12:32
[2016-12-17] MEDS: LACTULOSE SYRUP 20 GM/30 ML CUP PO SCH (20:37)
[2016-12-17] MEDS: DOCUSATE SODIUM 100 MG/10 ML UDC PO SCH (20:38)
[2016-12-17] MEDS: SENNOSIDES SYRUP 8.8 MG/5 ML CUP PO SCH (20:38)
--- NOTE | 2016-12-17 22:30 | RADRPT ---
EXAM DATE/TIME: 12/17/2016 21:37 [facility] COMPARISON: MRI BRAIN W/O CONTRAST, November 18, 2016, 18:14. INDICATIONS : Decreased level of consciousness. MEDICAL HISTORY : Unknown. SURGICAL HISTORY : Unknown. ENCOUNTER: Initial ACUITY: 1 day PAIN SCORE: 0/10 LOCATION: cranial TECHNIQUE: Multiplanar, multisequence MRI of the brain was performed without contrast. FINDINGS: Extensive bifrontal signal changes are again noted with some additional interval extension of signal change into the orbitofrontal and basilar frontal region on the left by comparison to most recent pre vious exam. Mild ventricular displacement has decreased. There is no evidence of macroscopic hemorrha ge. CONCLUSION: Evolving bifrontal signal changes as described Nghia Pacheco MD on December 17, 2016 at 22:23 Board Certified Radiologist. This report was verified electronically.
[2016-12-18] VITALS (16 sets, daily range): BP systolic 125–148; BP diastolic 65–79; PULSE 72–114; RESP 15–35; TEMP 97.5–101.4; O2SAT 91–97
[2016-12-18] MEDS: INSULIN NovoLIN REGULAR SUPPLEMENTAL SCALE SQ SCH ×4 (02:00→20:00)
[2016-12-18] MEDS: CHLORHEXIDINE GLUCONATE 2 % 1 PACK (2 CLOTHS) TOP SCH (03:03)
[2016-12-18 06:55] LABS: HEMATOCRIT 31.7 % (35.0-46.0); MEAN CELL VOLUME 81.6 FL (80.0-100.0); MEAN CORPUSCULAR HEMOGLOBIN 26.9 PG (27.0-34.0); PLATELET COUNT 550 TH/MM3 (150-450); RED BLOOD COUNT 3.88 MIL/MM3 (4.00-5.30); RED CELL DISTRIBUTION WIDTH 16.7 % (11.6-17.2); WHITE BLOOD COUNT 8.4 TH/MM3 (4.0-11.0)
[2016-12-18 06:58] LABS: HEMO FLAGS AUTO DIFF
[2016-12-18 07:18] LABS: BICARBONATE 31.2 MEQ/L (21.0-32.0); MAGNESIUM 2.5 MG/DL (1.5-2.5); POTASSIUM 3.8 MEQ/L (3.5-5.1)
[2016-12-18] MEDS: FOLIC ACID 1 MG TAB OG-TUBE SCH (07:44)
[2016-12-18] MEDS: BROMOCRIPTINE MESYLATE 2.5 MG TAB OG-TUBE SCH ×2 (07:45→20:22)
[2016-12-18] MEDS: ASPIRIN 81 MG CHEW TAB NG SCH (07:45)
[2016-12-18] MEDS: levETIRAcetam INJ 500 MG in SODIUM CHLORIDE 0.9% INJ 100 ML IV SCH ×2 (07:45→20:22)
[2016-12-18] MEDS: PANTOPRAZOLE SODIUM 40 MG VIAL IV SCH (07:46)
[2016-12-18] MEDS: levETIRAcetam 1000 MG INJ 100 ML IV SCH ×2 (07:46→20:22)
[2016-12-18] MEDS: ATORVASTATIN 40 MG TAB PO SCH (07:47)
[2016-12-18] MEDS: SODIUM CHLORIDE 0.9% FLUSH 10 ML FLUSH IV FLUSH SCH ×2 (07:47→20:23)
[2016-12-18 08:15] LABS: BANDS 4 % (0-6); BASOPHILS 2 % (0-2); EOSINOPHILS 3 % (0-4); PLATELET ESTIMATE SMEAR HIGH (NORMAL); PLATELET MORPHOLOGY NORMAL (NORMAL); POLYS (SEG NEUTROPHILS) 56 % (16-70); SCAN/DIFF FINAL DIFF MANUAL; WBC DIFF SAMPLE 100
[2016-12-18] MEDS: CHLORHEXIDINE 0.12% (ORAL KIT) 15 ML CUP MT SCH ×2 (08:26→20:00)
[2016-12-18] MEDS: LACTULOSE SYRUP 20 GM/30 ML CUP PO SCH ×2 (09:00→20:24)
[2016-12-18] MEDS: SENNOSIDES SYRUP 8.8 MG/5 ML CUP PO SCH ×2 (09:00→20:24)
[2016-12-18] MEDS: POLYETHYLENE GLYCOL 17 GM PKG PO SCH (09:00)
[2016-12-18] MEDS: DOCUSATE SODIUM 100 MG/10 ML UDC PO SCH ×2 (09:00→20:24)
--- NOTE | 2016-12-18 17:35 | HHI.CCPN ---
Subjective Remarks/Hospital Course 65-year-old female with past medical history of stroke for which she at one point was on warfarin but had been discontinued. She was was admitted to [facility] emergency department 11/04/16 with difficulty getting her thoughts together. She was found to have multifocal nonhemorrhagic infarcts in left frontal and parietal regions, right frontal lobe and history of moyamoya disease. She was initially awake and following commands with weakness of RLE and some aphasia. She was transferred to [facility] where he had an cerebral angiogram consistent with moyamoya. There were plans to perform extracranial/intracranial bypass. However she had a seizure and ended up being intubated for status either 11/09 or 11/10.. She was found to have a new right frontal infarct area and she was started on Dilantin and Keppra and it was felt that she would not be a candidate for intervention. She has been intubated 9-10 days and apparently she has been tolerating C Pap trials to some extent but mental status prevents extubation. Treating team was discussing with family trach/PEG. Apparently family requested transfer back to [place] because they live locally here and wanted her closer to home. Apparently she had been sedated initially with propofol but then was on Precedex from 11/12-11/14. Appears she has been off all continuous sedation since 11/14. Subjective 11/19 No acute events overnight. Palliative care has been consult at family meeting is scheduled for today. After family meeting will will discuss placement of tracheostomy and/or and PEG, based on family's wishes. 11/20: Afebrile .No change in neurological status. Consult placed for tracheostomy and PEG placement as requested by family yesterday. 11/21: Afebrile. Tracheostomy plan for some time next week with general surgery , will try to coordinate with GI for PEG placement. 11/22 No acute events overnight. FOr PEG tube placement today. Afebrile. On no sedation. 11/23 Patient remains intubated on no sedation s/p PEG tube placement yesterday for trach today. Afebrile. 11/24 No acute events overnight. For trach today. Afebrile. 11/25 Patient s/p trach yesterday had an episode of emesis overnight and tube feeds placed on hold. Afebrile. 11/26 Patient is on ventilator via trach tolerated tube feeds during day however she had another episode of emesis overnight and tube feeds placed on hold. 11/27 Patient noted to have bloody secretions with suctioning and around trach site. Spiked fever with : 101.3 at 3am. Tolerated CPAP x 4 hrs and TP 2.5 hrs yesterday. 11/28 No acute events overnight. Afebrile. Tolerated CPAP x 2 hrs yesterday. Bloody secretions resolved. Afebrile. 11/29 Patient remains on ventilator via trach on sedation tolerating CPAP trials. 11/30 Patient spiked fever with T: 101.0 last night. On ventilator via trach. Tolerating tube feeds. 12/01: Remains on mechanical ventilation via tracheostomy. 12/02: Remains encephalopathic, on mechanical ventilation via tracheostomy. Tolerating tube feeds. Off all sedation. 12/03: Remains encephalopathic, on mechanical ventilation via tracheostomy. Remains off all sedation. Tolerating PEG feeds 12/04: Opens eyes however remains encephalopathic and not following commands. On mechanical ventilation via tracheostomy. Tolerated TPs during daytime yesterday. Tolerating PEG feeds. 12/05: Remains encephalopathic, on mech vent via trach. Daily C Pap trials. 12/06: Remains encephalopathic. Has spontaneous eye opening however not tracking. Remains on mechanical ventilation via tracheostomy. Daily C Pap trials ongoing. 12/07: Remains encephalopathic. On mechanical ventilation via tracheostomy. Daily C Pap trials. 12/08: Remains encephalopathic, on mechanical ventilation via tracheostomy. No significant neurologic improvement. Daily C Pap trials ongoing. 12/09: Patient has been maintained on trach collar for greater than 24 hours. Mental status unchanged. 12/10: Patient continues on trach collar at 28% FiO2. Antibiotics discontinued. Repeat urine culture obtained. 12/11: No acute events overnight. Trach sutures removed today. The patient continues on trach collar 28%. Afebrile 12/12: The patient remains encephalopathic. Patient's on trach collar continues on 28% FiO2. Urine culture negative. 12/13: The patient was noted to have a slight increase in respiratory rate, appeared to be slightly labored breathing. Patient suctioned well, and closely monitored with resolution of symptomatology. The patient remains encephalopathic. Doing well on trach collar 12/14: The patient was noted to have thickened yellow tracheal secretions, culture and Gram stain sent. The patient remains encephalopathic. Continues on FiO2 of 28% 12/15: Afebrile .Remains encephalopathic. The patient continues on trach collar. Sputum culture still pending. 12/16: Afebrile. Sputum culture resulted staph aureus, and gram-negative rods. ID following. The patient remains encephalopathic. Continues on trach collar with FiO2 28%. 12/17:No events overnight. Afebrile. On TP's with 28% FIO2. CXR this morning improved aeration of left lower lung. 12/18:Patient remains encephalopathic. No acute issues overnight. Continues on trach collar. Sputum culture resulted Pseudomonas, and staph aureus will begin antibiotics. Objective Vital Signs Date Time Temp Pulse Resp B/P Pulse Ox O2 Delivery O2 Flow Rate FiO2 12/18/16 16:00 114 12/18/16 16:00 97.5 27 137/69 96 12/18/16 08:52 T-piece 6.00 28 Intake and Output 12/17/16 12/17/16 12/18/16 08:00 16:00 00:00 Intake Total 471 ml 912 ml 658 ml Output Total 400 ml 450 ml 650 ml Balance 71 ml 462 ml 8 ml Result Diagram: 12/18/16 0552 12/18/16 0552 Imaging Last Impressions Chest X-Ray 12/17/16 0600 Signed Impressions: Service Date/Time: Saturday, December 17, 2016 02:52 - CONCLUSION: Improving aeration of the left lower lung compared to the prior study. No new infiltrates. Clif Jacobo MD Abdomen X-Ray 11/26/16 0000 Signed Impressions: Service Date/Time: Saturday, November 26, 2016 10:18 - CONCLUSION: Distended stomach otherwise nonspecific abdomen. Jackson Murillo MD Brain MRI 11/18/16 0825 Signed Impressions: Service Date/Time: November 18:14 - CONCLUSION: Large evolving bifrontal infarctions Nghia Pacheco MD Objective Remarks GENERAL: Patient is 65 yo on ventilator via trach, nonresponsive SKIN: Warm and dry. HEAD: Normocephalic. EYES: No scleral icterus. No injection or drainage. NECK: Supple, trachea midline. No JVD or lymphadenopathy. Trach in place CARDIOVASCULAR: Regular rate and rhythm without murmurs, gallops, or rubs. RESPIRATORY: Breath sounds equal bilaterally. No accessory muscle use. GASTROINTESTINAL: Abdomen soft, non-tender, nondistended. PEG tube in place MUSCULOSKELETAL: No cyanosis, or edema. Neuro: Opens eyes however remains encephalopathic and does not follow commands. Date of Insertion: Nov 19, 2016 A/P Assessment and Plan NEURO: Bifrontal strokes Moyamoya Seizures Keppra 1500 mg IV twice a day Continue ASA Continue bromocriptine 2.5 mg by mouth BID Atorvastatin 40 mg by mouth daily EEG-noted sharp spikes Neurology is following-Dr. Flores Has been evaluated tertiary care center and felt to not be a candidate for further intervention. RESP: Respiratory failure COPD Continue with oxygen keep sat >92% Bronchodilators, ICU vent bundle s/p trach 11/24. Pulm toilet, trach care CXR today improved aeration of left lower lung, CV: Coronary artery disease with prior myocardial infarction Hypertension Monitor HR and BP keep MAP>65mmHg. Continue with ASA, statin GI: Dysphagia s/p PEG tube placement 11/22 Continue TF(Jevity 1.5 with goal rate 60 mL per hour) monitor for residuals- minimal On Protonix 40mg IV daily for GI prophylaxis Monitor LFT's ( resolved) US liver: Cholelithiasis Bowel regimen with Colace, Senna , Miralax, Lactulose. BM 12/18 : Monitor renal function, I/O's, electrolytes replacement per protocol. d/c Bumex ID: [id number] Sputum cx: Staph species, Kleb pneumonia both sensitive to Rocephin 11/25 Urine: Kleb pneumonia BC from 11/27- NGTD BC x 2 sets drawn on 11/30 with no growth, sputum and urine cx 11/29 growing klebsiella 12/09 Repeat urine culture -NGTD 12/15 Sputum culture -staph aureus, gram negative rods- likely colonized. Patient is afebrile with no evidence of leukocytosis, CXR today overall improved. Off abx monitor for signs of infections ( Fever, WBC) HEME: Monitor CBC, ENDO: Euglycemic PROPH: Hold DVT prophylaxis per neurology secondary to bilateral CVAs. Protonix 40 mg IV daily for stress ulcer prophylaxis. ACCESS: Peripheral IV's x 2. Palliative care medicine is following Case management continued evaluation for LTAC placement. Level 3 Dispo: Discussed with BREAKER TABLE WORKER at bedside Physician Nieves Childs MD December 18, 2016 17:35
[2016-12-18] MEDS: ACETAMINOPHEN/HYDROcodone 325 MG/5 MG TAB PO PRN (20:23)
[2016-12-18] MEDS: ACETAMINOPHEN 325 MG TAB PO PRN (20:23)
[2016-12-19] VITALS (13 sets, daily range): BP systolic 125–145; BP diastolic 63–80; PULSE 84–107; RESP 15–34; TEMP 98.7–100.2; O2SAT 91–96
[2016-12-19] MEDS: RESP: ALBUTEROL 2.5 MG/3 ML NEB (PRN) INH (00:11)
[2016-12-19] MEDS: INSULIN NovoLIN REGULAR SUPPLEMENTAL SCALE SQ SCH ×5 (02:00→23:45)
[2016-12-19] MEDS: ACETAMINOPHEN 325 MG TAB PO PRN (02:56)
[2016-12-19] MEDS: CHLORHEXIDINE GLUCONATE 2 % 1 PACK (2 CLOTHS) TOP SCH (03:43)
[2016-12-19] MEDS: CHLORHEXIDINE 0.12% (ORAL KIT) 15 ML CUP MT SCH ×2 (08:15→20:00)
[2016-12-19] MEDS: levETIRAcetam 1000 MG INJ 100 ML IV SCH ×2 (08:16→20:29)
[2016-12-19] MEDS: ASPIRIN 81 MG CHEW TAB NG SCH (08:17)
[2016-12-19] MEDS: PANTOPRAZOLE SODIUM 40 MG VIAL IV SCH (08:17)
[2016-12-19] MEDS: SODIUM CHLORIDE 0.9% FLUSH 10 ML FLUSH IV FLUSH SCH ×2 (08:17→20:30)
[2016-12-19] MEDS: levETIRAcetam INJ 500 MG in SODIUM CHLORIDE 0.9% INJ 100 ML IV SCH ×2 (08:17→20:30)
[2016-12-19] MEDS: FOLIC ACID 1 MG TAB OG-TUBE SCH (08:18)
[2016-12-19] MEDS: ATORVASTATIN 40 MG TAB PO SCH (08:18)
[2016-12-19] MEDS: BROMOCRIPTINE MESYLATE 2.5 MG TAB OG-TUBE SCH ×2 (08:18→20:30)
[2016-12-19] MEDS: POLYETHYLENE GLYCOL 17 GM PKG PO SCH (09:00)
[2016-12-19] MEDS: SENNOSIDES SYRUP 8.8 MG/5 ML CUP PO SCH ×2 (09:00→20:31)
[2016-12-19] MEDS: LACTULOSE SYRUP 20 GM/30 ML CUP PO SCH ×2 (09:00→20:31)
[2016-12-19] MEDS: DOCUSATE SODIUM 100 MG/10 ML UDC PO SCH ×2 (09:00→20:30)
--- NOTE | 2016-12-19 09:57 | HHI.CCPN ---
Subjective Remarks/Hospital Course 65-year-old female with past medical history of stroke for which she at one point was on warfarin but had been discontinued. She was was admitted to [facility] emergency department 11/04/16 with difficulty getting her thoughts together. She was found to have multifocal nonhemorrhagic infarcts in left frontal and parietal regions, right frontal lobe and history of moyamoya disease. She was initially awake and following commands with weakness of RLE and some aphasia. She was transferred to [facility] where he had an cerebral angiogram consistent with moyamoya. There were plans to perform extracranial/intracranial bypass. However she had a seizure and ended up being intubated for status either 11/09 or 11/10.. She was found to have a new right frontal infarct area and she was started on Dilantin and Keppra and it was felt that she would not be a candidate for intervention. She has been intubated 9-10 days and apparently she has been tolerating C Pap trials to some extent but mental status prevents extubation. Treating team was discussing with family trach/PEG. Apparently family requested transfer back to [place] because they live locally here and wanted her closer to home. Apparently she had been sedated initially with propofol but then was on Precedex from 11/12-11/14. Appears she has been off all continuous sedation since 11/14. Subjective 11/19 No acute events overnight. Palliative care has been consult at family meeting is scheduled for today. After family meeting will will discuss placement of tracheostomy and/or and PEG, based on family's wishes. 11/20: Afebrile .No change in neurological status. Consult placed for tracheostomy and PEG placement as requested by family yesterday. 11/21: Afebrile. Tracheostomy plan for some time next week with general surgery , will try to coordinate with GI for PEG placement. 11/22 No acute events overnight. FOr PEG tube placement today. Afebrile. On no sedation. 11/23 Patient remains intubated on no sedation s/p PEG tube placement yesterday for trach today. Afebrile. 11/24 No acute events overnight. For trach today. Afebrile. 11/25 Patient s/p trach yesterday had an episode of emesis overnight and tube feeds placed on hold. Afebrile. 11/26 Patient is on ventilator via trach tolerated tube feeds during day however she had another episode of emesis overnight and tube feeds placed on hold. 11/27 Patient noted to have bloody secretions with suctioning and around trach site. Spiked fever with : 101.3 at 3am. Tolerated CPAP x 4 hrs and TP 2.5 hrs yesterday. 11/28 No acute events overnight. Afebrile. Tolerated CPAP x 2 hrs yesterday. Bloody secretions resolved. Afebrile. 11/29 Patient remains on ventilator via trach on sedation tolerating CPAP trials. 11/30 Patient spiked fever with T: 101.0 last night. On ventilator via trach. Tolerating tube feeds. 12/01: Remains on mechanical ventilation via tracheostomy. 12/02: Remains encephalopathic, on mechanical ventilation via tracheostomy. Tolerating tube feeds. Off all sedation. 12/03: Remains encephalopathic, on mechanical ventilation via tracheostomy. Remains off all sedation. Tolerating PEG feeds 12/04: Opens eyes however remains encephalopathic and not following commands. On mechanical ventilation via tracheostomy. Tolerated TPs during daytime yesterday. Tolerating PEG feeds. 12/05: Remains encephalopathic, on mech vent via trach. Daily C Pap trials. 12/06: Remains encephalopathic. Has spontaneous eye opening however not tracking. Remains on mechanical ventilation via tracheostomy. Daily C Pap trials ongoing. 12/07: Remains encephalopathic. On mechanical ventilation via tracheostomy. Daily C Pap trials. 12/08: Remains encephalopathic, on mechanical ventilation via tracheostomy. No significant neurologic improvement. Daily C Pap trials ongoing. 12/09: Patient has been maintained on trach collar for greater than 24 hours. Mental status unchanged. 12/10: Patient continues on trach collar at 28% FiO2. Antibiotics discontinued. Repeat urine culture obtained. 12/11: No acute events overnight. Trach sutures removed today. The patient continues on trach collar 28%. Afebrile 12/12: The patient remains encephalopathic. Patient's on trach collar continues on 28% FiO2. Urine culture negative. 12/13: The patient was noted to have a slight increase in respiratory rate, appeared to be slightly labored breathing. Patient suctioned well, and closely monitored with resolution of symptomatology. The patient remains encephalopathic. Doing well on trach collar 12/14: The patient was noted to have thickened yellow tracheal secretions, culture and Gram stain sent. The patient remains encephalopathic. Continues on FiO2 of 28% 12/15: Afebrile .Remains encephalopathic. The patient continues on trach collar. Sputum culture still pending. 12/16: Afebrile. Sputum culture resulted staph aureus, and gram-negative rods. ID following. The patient remains encephalopathic. Continues on trach collar with FiO2 28%. 12/17:No events overnight. Afebrile. On TP's with 28% FIO2. CXR this morning improved aeration of left lower lung. 12/18:Patient remains encephalopathic. No acute issues overnight. Continues on trach collar. Sputum culture resulted Pseudomonas, and staph aureus will begin antibiotics. 12/19: Patient spiked a temp last evening 101.4, T piece FiO2 concentration was increased to 33%, now decreased back to 28%. Patient was placed on vancomycin and Zosyn. Objective Vital Signs Date Time Temp Pulse Resp B/P Pulse Ox O2 Delivery O2 Flow Rate FiO2 12/19/16 09:05 96 T-piece 6.00 28 12/19/16 08:00 107 12/19/16 04:00 100.2 15 129/80 Intake and Output 12/18/16 12/18/16 12/19/16 08:00 16:00 00:00 Intake Total 673 ml 730 ml 838 ml Output Total 500 ml 400 ml 350 ml Balance 173 ml 330 ml 488 ml Result Diagram: 12/18/16 0552 12/18/16 0552 Imaging Last Impressions Chest X-Ray 12/17/16 0600 Signed Impressions: Service Date/Time: Saturday, December 17, 2016 02:52 - CONCLUSION: Improving aeration of the left lower lung compared to the prior study. No new infiltrates. Clif Jacobo MD Abdomen X-Ray 11/26/16 0000 Signed Impressions: Service Date/Time: Saturday, November 26, 2016 10:18 - CONCLUSION: Distended stomach otherwise nonspecific abdomen. K. David Murillo MD Brain MRI 11/18/16 0825 Signed Impressions: Service Date/Time: November 18:14 - CONCLUSION: Large evolving bifrontal infarctions Nghia Pacheco MD Objective Remarks BP 117/55 P 82 94% O2 saturation GENERAL: Patient is 65 yo on ventilator via trach, nonresponsive SKIN: Warm and dry. HEAD: Normocephalic. EYES: No scleral icterus. No injection or drainage. NECK: Supple, trachea midline. No JVD or lymphadenopathy. Trach in place CARDIOVASCULAR: Regular rate and rhythm without murmurs, gallops, or rubs. RESPIRATORY: Breath sounds equal bilaterally. No accessory muscle use. GASTROINTESTINAL: Abdomen soft, non-tender, nondistended. PEG tube in place MUSCULOSKELETAL: No cyanosis, or edema. Neuro: Opens eyes however remains encephalopathic and does not follow commands. Urinary Catheter: Yes Date of Insertion: Nov 19, 2016 A/P Assessment and Plan NEURO: Bifrontal strokes Moyamoya Seizures Keppra 1500 mg IV twice a day Continue ASA Continue bromocriptine 2.5 mg by mouth BID Atorvastatin 40 mg by mouth daily EEG-noted sharp spikes Neurology is following-Dr. Flores Has been evaluated tertiary care center and felt to not be a candidate for further intervention. RESP: Respiratory failure COPD Continue with oxygen keep sat >92% Bronchodilators, ICU vent bundle s/p trach 11/24. Pulm toilet, trach care Trach collar FiO2 28% CV: Coronary artery disease with prior myocardial infarction Hypertension Monitor HR and BP keep MAP>65mmHg. Continue with ASA, statin GI: Dysphagia s/p PEG tube placement 11/22 Continue TF(Jevity 1.5 with goal rate 60 mL per hour) monitor for residuals- minimal On Protonix 40mg IV daily for GI prophylaxis Monitor LFT's ( resolved) US liver: Cholelithiasis Bowel regimen with Colace, Senna , Miralax, Lactulose. BM 12/19 : Monitor renal function, I/O's, electrolytes replacement per protocol. d/c Bumex ID: [id number] Sputum cx: Staph species, Kleb pneumonia both sensitive to Rocephin 11/25 Urine: Kleb pneumonia BC from 11/27- NGTD BC x 2 sets drawn on 11/30 with no growth, sputum and urine cx 11/29 growing klebsiella 12/09 Repeat urine culture -NGTD 12/15 Sputum culture -staph aureus, Pseudomonas- 12/18 placed on vancomycin , and Zosyn (day 1) Off abx monitor for signs of infections ( Fever, WBC) HEME: Monitor CBC, ENDO: Euglycemic PROPH: Hold DVT prophylaxis per neurology secondary to bilateral CVAs. Protonix 40 mg IV daily for stress ulcer prophylaxis. ACCESS: Peripheral IV's x 2. Palliative care medicine is following Case management continued evaluation for LTAC placement. Level 3 Dispo: Discussed with TREASURY REPRESENTATIVE at bedside Physician Nieves Childs MD December 19, 2016 09:57
[2016-12-19] MEDS: PIPERACIL-TAZO 3.375 GM PREMIX 50 ML IV SCH ×3 (10:00→20:31)
[2016-12-19] MEDS ORDERED: Vancomycin Consult Pharmacy 1 EA OTHER SCH (10:00)
[2016-12-19] MEDS: VANCOMYCIN 1,000 MG/NS 250 ML IV SCH ×4 (11:16→23:45)
[2016-12-20] VITALS (15 sets, daily range): BP systolic 113–135; BP diastolic 58–69; PULSE 87–104; RESP 13–20; TEMP 97.7–99.5; O2SAT 92–97
[2016-12-20] MEDS: CHLORHEXIDINE GLUCONATE 2 % 1 PACK (2 CLOTHS) TOP SCH (02:56)
[2016-12-20] MEDS: PIPERACIL-TAZO 3.375 GM PREMIX 50 ML IV SCH ×4 (02:56→21:39)
[2016-12-20 06:49] LABS: HEMATOCRIT 31.7 % (35.0-46.0); MEAN CELL VOLUME 81.7 FL (80.0-100.0); MEAN CORPUSCULAR HEMOGLOBIN 26.5 PG (27.0-34.0); MEAN CORPUSCULAR HGB CONC 32.4 % (32.0-36.0); PLATELET COUNT 468 TH/MM3 (150-450); RED BLOOD COUNT 3.88 MIL/MM3 (4.00-5.30); RED CELL DISTRIBUTION WIDTH 16.7 % (11.6-17.2); REVIEW FLAG FINAL; WHITE BLOOD COUNT 9.4 TH/MM3 (4.0-11.0)
[2016-12-20] MEDS: INSULIN NovoLIN REGULAR SUPPLEMENTAL SCALE SQ SCH ×3 (08:00→20:00)
[2016-12-20] MEDS: levETIRAcetam 1000 MG INJ 100 ML IV SCH ×2 (08:37→20:09)
[2016-12-20] MEDS: levETIRAcetam INJ 500 MG in SODIUM CHLORIDE 0.9% INJ 100 ML IV SCH ×2 (08:42→20:08)
[2016-12-20] MEDS: PANTOPRAZOLE SODIUM 40 MG VIAL IV SCH (08:42)
[2016-12-20] MEDS: SODIUM CHLORIDE 0.9% FLUSH 10 ML FLUSH IV FLUSH SCH ×2 (08:42→20:09)
[2016-12-20] MEDS: ASPIRIN 81 MG CHEW TAB NG SCH (08:42)
[2016-12-20] MEDS: ATORVASTATIN 40 MG TAB PO SCH (08:43)
[2016-12-20] MEDS: BROMOCRIPTINE MESYLATE 2.5 MG TAB OG-TUBE SCH ×2 (08:43→20:08)
[2016-12-20] MEDS: FOLIC ACID 1 MG TAB OG-TUBE SCH (08:43)
[2016-12-20] MEDS: CHLORHEXIDINE 0.12% (ORAL KIT) 15 ML CUP MT SCH ×2 (08:45→20:08)
[2016-12-20] MEDS: DOCUSATE SODIUM 100 MG/10 ML UDC PO SCH ×2 (08:47→20:09)
[2016-12-20] MEDS: SENNOSIDES SYRUP 8.8 MG/5 ML CUP PO SCH ×2 (08:48→20:09)
[2016-12-20] MEDS: POLYETHYLENE GLYCOL 17 GM PKG PO SCH (08:48)
[2016-12-20] MEDS: LACTULOSE SYRUP 20 GM/30 ML CUP PO SCH ×2 (08:48→20:09)
[2016-12-20] MEDS: VANCOMYCIN 1,000 MG/NS 250 ML IV SCH ×4 (09:30→22:58)
--- NOTE | 2016-12-20 17:50 | HHI.CCPN ---
Subjective Remarks/Hospital Course 65-year-old female with past medical history of stroke for which she at one point was on warfarin but had been discontinued. She was was admitted to [facility] emergency department 11/04/16 with difficulty getting her thoughts together. She was found to have multifocal nonhemorrhagic infarcts in left frontal and parietal regions, right frontal lobe and history of moyamoya disease. She was initially awake and following commands with weakness of RLE and some aphasia. She was transferred to [facility] where he had an cerebral angiogram consistent with moyamoya. There were plans to perform extracranial/intracranial bypass. However she had a seizure and ended up being intubated for status either 11/09 or 11/10.. She was found to have a new right frontal infarct area and she was started on Dilantin and Keppra and it was felt that she would not be a candidate for intervention. She has been intubated 9-10 days and apparently she has been tolerating C Pap trials to some extent but mental status prevents extubation. Treating team was discussing with family trach/PEG. Apparently family requested transfer back to [place] because they live locally here and wanted her closer to home. Apparently she had been sedated initially with propofol but then was on Precedex from 11/12-11/14. Appears she has been off all continuous sedation since 11/14. Subjective 11/19 No acute events overnight. Palliative care has been consult at family meeting is scheduled for today. After family meeting will will discuss placement of tracheostomy and/or and PEG, based on family's wishes. 11/20: Afebrile .No change in neurological status. Consult placed for tracheostomy and PEG placement as requested by family yesterday. 11/21: Afebrile. Tracheostomy plan for some time next week with general surgery , will try to coordinate with GI for PEG placement. 11/22 No acute events overnight. FOr PEG tube placement today. Afebrile. On no sedation. 11/23 Patient remains intubated on no sedation s/p PEG tube placement yesterday for trach today. Afebrile. 11/24 No acute events overnight. For trach today. Afebrile. 11/25 Patient s/p trach yesterday had an episode of emesis overnight and tube feeds placed on hold. Afebrile. 11/26 Patient is on ventilator via trach tolerated tube feeds during day however she had another episode of emesis overnight and tube feeds placed on hold. 11/27 Patient noted to have bloody secretions with suctioning and around trach site. Spiked fever with : 101.3 at 3am. Tolerated CPAP x 4 hrs and TP 2.5 hrs yesterday. 11/28 No acute events overnight. Afebrile. Tolerated CPAP x 2 hrs yesterday. Bloody secretions resolved. Afebrile. 11/29 Patient remains on ventilator via trach on sedation tolerating CPAP trials. 11/30 Patient spiked fever with T: 101.0 last night. On ventilator via trach. Tolerating tube feeds. 12/01: Remains on mechanical ventilation via tracheostomy. 12/02: Remains encephalopathic, on mechanical ventilation via tracheostomy. Tolerating tube feeds. Off all sedation. 12/03: Remains encephalopathic, on mechanical ventilation via tracheostomy. Remains off all sedation. Tolerating PEG feeds 12/04: Opens eyes however remains encephalopathic and not following commands. On mechanical ventilation via tracheostomy. Tolerated TPs during daytime yesterday. Tolerating PEG feeds. 12/05: Remains encephalopathic, on mech vent via trach. Daily C Pap trials. 12/06: Remains encephalopathic. Has spontaneous eye opening however not tracking. Remains on mechanical ventilation via tracheostomy. Daily C Pap trials ongoing. 12/07: Remains encephalopathic. On mechanical ventilation via tracheostomy. Daily C Pap trials. 12/08: Remains encephalopathic, on mechanical ventilation via tracheostomy. No significant neurologic improvement. Daily C Pap trials ongoing. 12/09: Patient has been maintained on trach collar for greater than 24 hours. Mental status unchanged. 12/10: Patient continues on trach collar at 28% FiO2. Antibiotics discontinued. Repeat urine culture obtained. 12/11: No acute events overnight. Trach sutures removed today. The patient continues on trach collar 28%. Afebrile 12/12: The patient remains encephalopathic. Patient's on trach collar continues on 28% FiO2. Urine culture negative. 12/13: The patient was noted to have a slight increase in respiratory rate, appeared to be slightly labored breathing. Patient suctioned well, and closely monitored with resolution of symptomatology. The patient remains encephalopathic. Doing well on trach collar 12/14: The patient was noted to have thickened yellow tracheal secretions, culture and Gram stain sent. The patient remains encephalopathic. Continues on FiO2 of 28% 12/15: Afebrile .Remains encephalopathic. The patient continues on trach collar. Sputum culture still pending. 12/16: Afebrile. Sputum culture resulted staph aureus, and gram-negative rods. ID following. The patient remains encephalopathic. Continues on trach collar with FiO2 28%. 12/17:No events overnight. Afebrile. On TP's with 28% FIO2. CXR this morning improved aeration of left lower lung. 12/18:Patient remains encephalopathic. No acute issues overnight. Continues on trach collar. Sputum culture resulted Pseudomonas, and staph aureus will begin antibiotics. 12/19: Patient spiked a temp last evening 101.4, T piece FiO2 concentration was increased to 33%, now decreased back to 28%. Patient was placed on vancomycin and Zosyn. 12/20: Afebrile .Sputum cultures yesterday revealed Pseudomonas, and staph aureus. The patient continues on antibiotics, and trach collar. Objective Vital Signs Date Time Temp Pulse Resp B/P Pulse Ox O2 Delivery O2 Flow Rate FiO2 12/20/16 16:00 99.5 96 15 135/62 92 12/20/16 09:54 T-piece 12/20/16 07:00 28 12/19/16 20:00 6.00 Intake and Output 12/19/16 12/19/16 12/20/16 08:00 16:00 00:00 Intake Total 532 ml 1040 ml 798 ml Output Total 500 ml 375 ml 500 ml Balance 32 ml 665 ml 298 ml Result Diagram: 12/20/16 0557 12/20/16 0557 Imaging Last Impressions Chest X-Ray 12/17/16 0600 Signed Impressions: Service Date/Time: Saturday, December 17, 2016 02:52 - CONCLUSION: Improving aeration of the left lower lung compared to the prior study. No new infiltrates. Clif Jacobo MD Abdomen X-Ray 11/26/16 0000 Signed Impressions: Service Date/Time: Saturday, November 26, 2016 10:18 - CONCLUSION: Distended stomach otherwise nonspecific abdomen. Jackson Mruillo MD Brain MRI 11/18/16 0825 Signed Impressions: Service Date/Time: November 18:14 - CONCLUSION: Large evolving bifrontal infarctions Nghia Pacheco MD Objective Remarks GENERAL: Patient is 65 yo on ventilator via trach, nonresponsive SKIN: Warm and dry. HEAD: Normocephalic. EYES: No scleral icterus. No injection or drainage. NECK: Supple, trachea midline. No JVD or lymphadenopathy. Trach in place CARDIOVASCULAR: Regular rate and rhythm without murmurs, gallops, or rubs. RESPIRATORY: Breath sounds equal bilaterally. No accessory muscle use. GASTROINTESTINAL: Abdomen soft, non-tender, nondistended. PEG tube in place MUSCULOSKELETAL: No cyanosis, or edema. Neuro: Opens eyes however remains encephalopathic and does not follow commands. Date of Insertion: Nov 19, 2016 A/P Assessment and Plan NEURO: Bifrontal strokes Moyamoya Seizures Keppra 1500 mg IV twice a day Continue ASA Continue bromocriptine 2.5 mg by mouth BID Atorvastatin 40 mg by mouth daily EEG-noted sharp spikes Neurology is following-Dr. Flores Has been evaluated tertiary care center and felt to not be a candidate for further intervention. RESP: Respiratory failure COPD Multilobular pneumonia Continue with oxygen keep sat >92% Bronchodilators, ICU vent bundle s/p trach 11/24. Pulm toilet, trach care Trach collar FiO2 28% CV: Coronary artery disease with prior myocardial infarction Hypertension Monitor HR and BP keep MAP>65mmHg. Continue with ASA, statin GI: Dysphagia s/p PEG tube placement 11/22 Continue TF(Jevity 1.5 with goal rate 60 mL per hour) monitor for residuals- minimal On Protonix 40mg IV daily for GI prophylaxis Monitor LFT's ( resolved) US liver: Cholelithiasis Bowel regimen with Colace, Senna , Miralax, Lactulose. BM 12/19 : Monitor renal function, I/O's, electrolytes replacement per protocol. d/c Bumex ID: [id number] Sputum cx: Staph species, Kleb pneumonia both sensitive to Rocephin 11/25 Urine: Kleb pneumonia BC from 11/27- NGTD BC x 2 sets drawn on 11/30 with no growth, sputum and urine cx 11/29 growing klebsiella 12/09 Repeat urine culture -NGTD 12/15 Sputum culture -staph aureus, Pseudomonas- 12/18 placed on vancomycin , and Zosyn (day 2) Off abx monitor for signs of infections ( Fever, WBC) HEME: Monitor CBC, ENDO: Euglycemic PROPH: Hold DVT prophylaxis per neurology secondary to bilateral CVAs. Protonix 40 mg IV daily for stress ulcer prophylaxis. ACCESS: Peripheral IV's x 2. Palliative care medicine is following Case management continued evaluation for LTAC placement. Level 3 Dispo: Discussed with DIRECTOR OF ASSESSMENT at bedside Physician Nieves Childs MD December 20, 2016 17:50
[2016-12-20] MEDS ORDERED: PHARMACY ORDERED LAB ONE (22:45)
[2016-12-21] VITALS (14 sets, daily range): BP systolic 125–160; BP diastolic 69–90; PULSE 90–109; RESP 19–22; TEMP 98–99.4; O2SAT 91–96
[2016-12-21] MEDS: INSULIN NovoLIN REGULAR SUPPLEMENTAL SCALE SQ SCH ×4 (01:44→20:00)
[2016-12-21] MEDS: CHLORHEXIDINE GLUCONATE 2 % 1 PACK (2 CLOTHS) TOP SCH (03:59)
[2016-12-21] MEDS: PIPERACIL-TAZO 3.375 GM PREMIX 50 ML IV SCH ×4 (03:59→21:43)
--- NOTE | 2016-12-21 07:51 | HHI.PR ---
Objective Vital Signs Date Time Temp Pulse Resp B/P Pulse Ox O2 Delivery O2 Flow Rate FiO2 12/21/16 06:00 109 12/21/16 04:00 100 12/21/16 04:00 98.9 100 19 136/72 92 12/21/16 02:00 99 12/21/16 00:00 99.4 96 19 125/69 92 12/21/16 00:00 96 12/20/16 22:00 97 12/20/16 21:00 94 T-piece 5.00 28 12/20/16 20:00 99.0 99 19 131/69 92 12/20/16 20:00 99 12/20/16 19:03 94 T-piece 28 12/20/16 19:00 95 T-Piece 28 Humidified 12/20/16 18:00 96 12/20/16 16:00 96 12/20/16 16:00 99.5 96 15 135/62 92 12/20/16 14:00 94 12/20/16 12:00 98.3 90 16 115/58 92 12/20/16 12:00 90 12/20/16 10:00 104 12/20/16 09:54 97 T-piece 12/20/16 08:00 87 12/20/16 08:00 98.0 97 13 113/59 95 I/O 12/20/16 12/20/16 12/20/16 12/21/16 12/21/16 12/21/16 07:00 15:00 23:00 07:00 15:00 23:00 Intake Total 1142 ml 1060 ml 934 ml 792 ml Output Total 1350 ml 300 ml 400 ml 450 ml Balance -208 ml 760 ml 534 ml 342 ml IV Total 583 ml 557 ml 346 ml 359 ml Tube Feeding 439 ml 443 ml 498 ml 433 ml Other 120 ml 60 ml 90 ml Output Urine Total 1350 ml 300 ml 400 ml 450 ml # Bowel Movements 1 0 0 1 Result Diagram: 12/20/16 0557 12/20/16 0557 Objective Remarks not following commands pupils = does moves eyes around and tracks me and rxt to threat nl no command following Assessment and Plan Assessment and Plan imp huge r frontal cva and inc size left frontal cva may eventually awaken and interact more mri no change resolving cva eeg some left sharps stay on keppra no anticoag now due to size of cva trached and pegged I THINK SHE LOOKS BETTER AND EVENTUALLY MAY INTERACT MORE AND SPEAK WE WILL HAVE TO WAIT AND SEE SOME DAMAGE TO LANGUAGE AREA IN FRONT I THINK BY MRI ANDREW DW DAUGHTER Sandra,Terrence Haynes MD December 21, 2016 07:51
[2016-12-21] MEDS: CHLORHEXIDINE 0.12% (ORAL KIT) 15 ML CUP MT SCH ×2 (08:00→20:26)
[2016-12-21] MEDS: BROMOCRIPTINE MESYLATE 2.5 MG TAB OG-TUBE SCH ×2 (08:30→20:26)
[2016-12-21] MEDS: levETIRAcetam INJ 500 MG in SODIUM CHLORIDE 0.9% INJ 100 ML IV SCH (08:30)
[2016-12-21] MEDS: PANTOPRAZOLE SODIUM 40 MG VIAL IV SCH (08:30)
[2016-12-21] MEDS: ASPIRIN 81 MG CHEW TAB NG SCH (08:30)
[2016-12-21] MEDS: levETIRAcetam 1000 MG INJ 100 ML IV SCH (08:30)
[2016-12-21] MEDS: SODIUM CHLORIDE 0.9% FLUSH 10 ML FLUSH IV FLUSH SCH ×2 (08:30→20:27)
[2016-12-21] MEDS: FOLIC ACID 1 MG TAB OG-TUBE SCH (08:30)
[2016-12-21] MEDS: POLYETHYLENE GLYCOL 17 GM PKG PO SCH (08:31)
[2016-12-21] MEDS: LACTULOSE SYRUP 20 GM/30 ML CUP PO SCH ×2 (08:31→20:27)
[2016-12-21] MEDS: ATORVASTATIN 40 MG TAB PO SCH (08:31)
[2016-12-21] MEDS: SENNOSIDES SYRUP 8.8 MG/5 ML CUP PO SCH ×2 (08:31→20:27)
[2016-12-21] MEDS: DOCUSATE SODIUM 100 MG/10 ML UDC PO SCH ×2 (08:31→20:27)
[2016-12-21] MEDS ORDERED: VANCOMYCIN INJ 1,250 MG in SODIUM CHLOR 0.9% 250 ML INJ 250 ML IV SCH (11:00)
--- NOTE | 2016-12-21 11:43 | HHI.CCPN ---
Subjective Remarks/Hospital Course 65-year-old female with past medical history of stroke for which she at one point was on warfarin but had been discontinued. She was was admitted to [facility] emergency department 11/04/16 with difficulty getting her thoughts together. She was found to have multifocal nonhemorrhagic infarcts in left frontal and parietal regions, right frontal lobe and history of moyamoya disease. She was initially awake and following commands with weakness of RLE and some aphasia. She was transferred to [facility] where he had an cerebral angiogram consistent with moyamoya. There were plans to perform extracranial/intracranial bypass. However she had a seizure and ended up being intubated for status either 11/09 or 11/10.. She was found to have a new right frontal infarct area and she was started on Dilantin and Keppra and it was felt that she would not be a candidate for intervention. She has been intubated 9-10 days and apparently she has been tolerating C Pap trials to some extent but mental status prevents extubation. Treating team was discussing with family trach/PEG. Apparently family requested transfer back to [place] because they live locally here and wanted her closer to home. Apparently she had been sedated initially with propofol but then was on Precedex from 11/12-11/14. Appears she has been off all continuous sedation since 11/14. 11/19 No acute events overnight. Palliative care has been consult at family meeting is scheduled for today. After family meeting will will discuss placement of tracheostomy and/or and PEG, based on family's wishes. 11/20: Afebrile .No change in neurological status. Consult placed for tracheostomy and PEG placement as requested by family yesterday. 11/21: Afebrile. Tracheostomy plan for some time next week with general surgery , will try to coordinate with GI for PEG placement. 11/22 No acute events overnight. FOr PEG tube placement today. Afebrile. On no sedation. 11/23 Patient remains intubated on no sedation s/p PEG tube placement yesterday for trach today. Afebrile. 11/24 No acute events overnight. For trach today. Afebrile. 11/25 Patient s/p trach yesterday had an episode of emesis overnight and tube feeds placed on hold. Afebrile. 11/26 Patient is on ventilator via trach tolerated tube feeds during day however she had another episode of emesis overnight and tube feeds placed on hold. 11/27 Patient noted to have bloody secretions with suctioning and around trach site. Spiked fever with : 101.3 at 3am. Tolerated CPAP x 4 hrs and TP 2.5 hrs yesterday. 11/28 No acute events overnight. Afebrile. Tolerated CPAP x 2 hrs yesterday. Bloody secretions resolved. Afebrile. 11/29 Patient remains on ventilator via trach on sedation tolerating CPAP trials. 11/30 Patient spiked fever with T: 101.0 last night. On ventilator via trach. Tolerating tube feeds. 12/01: Remains on mechanical ventilation via tracheostomy. 12/02: Remains encephalopathic, on mechanical ventilation via tracheostomy. Tolerating tube feeds. Off all sedation. 12/03: Remains encephalopathic, on mechanical ventilation via tracheostomy. Remains off all sedation. Tolerating PEG feeds 12/04: Opens eyes however remains encephalopathic and not following commands. On mechanical ventilation via tracheostomy. Tolerated TPs during daytime yesterday. Tolerating PEG feeds. 12/05: Remains encephalopathic, on mech vent via trach. Daily C Pap trials. 12/06: Remains encephalopathic. Has spontaneous eye opening however not tracking. Remains on mechanical ventilation via tracheostomy. Daily C Pap trials ongoing. 12/07: Remains encephalopathic. On mechanical ventilation via tracheostomy. Daily C Pap trials. 12/08: Remains encephalopathic, on mechanical ventilation via tracheostomy. No significant neurologic improvement. Daily C Pap trials ongoing. 12/09: Patient has been maintained on trach collar for greater than 24 hours. Mental status unchanged. 12/10: Patient continues on trach collar at 28% FiO2. Antibiotics discontinued. Repeat urine culture obtained. 12/11: No acute events overnight. Trach sutures removed today. The patient continues on trach collar 28%. Afebrile 12/12: The patient remains encephalopathic. Patient's on trach collar continues on 28% FiO2. Urine culture negative. 12/13: The patient was noted to have a slight increase in respiratory rate, appeared to be slightly labored breathing. Patient suctioned well, and closely monitored with resolution of symptomatology. The patient remains encephalopathic. Doing well on trach collar 12/14: The patient was noted to have thickened yellow tracheal secretions, culture and Gram stain sent. The patient remains encephalopathic. Continues on FiO2 of 28% 12/15: Afebrile .Remains encephalopathic. The patient continues on trach collar. Sputum culture still pending. 12/16: Afebrile. Sputum culture resulted staph aureus, and gram-negative rods. ID following. The patient remains encephalopathic. Continues on trach collar with FiO2 28%. 12/17:No events overnight. Afebrile. On TP's with 28% FIO2. CXR this morning improved aeration of left lower lung. 12/18:Patient remains encephalopathic. No acute issues overnight. Continues on trach collar. Sputum culture resulted Pseudomonas, and staph aureus will begin antibiotics. 12/19: Patient spiked a temp last evening 101.4, T piece FiO2 concentration was increased to 33%, now decreased back to 28%. Patient was placed on vancomycin and Zosyn. 12/20: Afebrile .Sputum cultures yesterday revealed Pseudomonas, and staph aureus. The patient continues on antibiotics, and trach collar. Subjective 12/21: Currently afebrile. On T piece FiO2 28% tolerating well. Some secretions noted. Tolerating tube feeds. Positive BM Objective Vital Signs Date Time Temp Pulse Resp B/P Pulse Ox O2 Delivery O2 Flow Rate FiO2 12/21/16 10:00 109 12/21/16 08:44 95 T-piece 5.00 28 12/21/16 08:00 98.7 21 160/90 Intake and Output 12/20/16 12/20/16 12/21/16 08:00 16:00 00:00 Intake Total 1142 ml 1060 ml 934 ml Output Total 1350 ml 300 ml 400 ml Balance -208 ml 760 ml 534 ml Result Diagram: 12/20/16 0557 12/20/16 0557 Imaging Last Impressions Chest X-Ray 12/17/16 0600 Signed Impressions: Service Date/Time: Saturday, December 17, 2016 02:52 - CONCLUSION: Improving aeration of the left lower lung compared to the prior study. No new infiltrates. Clif Jacobo MD Brain MRI 12/17/16 0000 Signed Impressions: Service Date/Time: Saturday, December 17, 2016 21:37 - CONCLUSION: Evolving bifrontal signal changes as described Nghia Pacheco MD Abdomen X-Ray 11/26/16 0000 Signed Impressions: Service Date/Time: Saturday, November 26, 2016 10:18 - CONCLUSION: Distended stomach otherwise nonspecific abdomen. Jackson Murillo MD Objective Remarks GENERAL: Patient is 65 yo on ventilator via trach collar and currently nonresponsive SKIN: Warm and dry. Unresponsive HEAD: Normocephalic. EYES: No scleral icterus. No injection or drainage. NECK: Supple, trachea midline. No JVD or lymphadenopathy. Trach in place without erythema CARDIOVASCULAR: Regular rate and rhythm S1, S2 no S4 without murmur without murmurs, gallops, or rubs. RESPIRATORY: Breath sounds equal bilaterally. No accessory muscle use. GASTROINTESTINAL: Abdomen soft, non-tender, nondistended. PEG tube in place and is clean dry and intact without erythema MUSCULOSKELETAL: Trace nonpitting lower extremity edema Neuro: Opens eyes however remains encephalopathic and does not follow commands. Date of Insertion: Nov 19, 2016 A/P Assessment and Plan NEURO/PSYCH: Bilateral frontal CVA left greater than right Moyamoya - confirmed by arteriogram at [facility] 10/22 Seizure disorder NOS Noted significant JOE/MCA disease bilaterally from previous imaging of brain Keppra 1500 mg switch to by PEG twice a day for seizures or will be continued Continue ASA 324 mg daily Continue bromocriptine 2.5 mg by mouth BID EEG-noted sharp spikes Neurology is following-Dr. Flores Has been evaluated tertiary care center and felt to not be a candidate for further intervention. RESP: Vent dependent respiratory failure COPD Multilobular pneumonia Continue with oxygen keep sat >92% Bronchodilators 4 times a day ICU vent bundle s/p trach 11/[address] Aleman. Pulm toilet, trach care Trach collar FiO2 28% CV: Coronary artery disease with prior myocardial infarction Hypertension Right ICA occlusion Dyslipidemia Monitor HR and BP keep MAP>65mmHg. Continue with ASA 324 mg daily and, atorvastatin 40 mg by mouth daily for dyslipidemia Echocardiogram revealed EF 55-60%. Severe MR. Normal systolic function GI: Dysphagia s/p PEG tube placement 11/22 Cholelithiasis Continue TF(Jevity 1.5 with goal rate 60 mL per hour) monitor for residuals- minimal On Pepcid 20 mg by PEG twice a dayfor GI prophylaxis Monitor LFT's ( resolved) US liver: Cholelithiasis Bowel regimen with Colace, Senna , Miralax, Lactulose. /Renal: Monitor renal function, Accurate I/O's, ID: Klebsiella/MSSA pneumonia 12/18 placed on Zosyn (day 3) discontinued vancomycin Pertinent cultures 11/25 Sputum cx: Staph species, Kleb pneumonia both sensitive to Rocephin 11/25 Urine: Kleb pneumonia BC from 11/27- NGTD BC x 2 sets drawn on 11/30 with no growth, sputum and urine cx 11/29 growing klebsiella 12/09 Repeat urine culture -NGTD 12/15 Sputum culture -MSSA, Pseudomonas- HEME: Thrombocytosis Leukocytosis Monitor CBC, ENDO: Euglycemic currently not requiring insulin scale insulin PROPH: Hold DVT prophylaxis per neurology secondary to bilateral CVAs. Pepcid 20 mg twice a day daily for stress ulcer prophylaxis. ACCESS: Peripheral IV's x 2. Palliative care medicine is following Case management continued evaluation for LTAC placement. Level 2 Dispo: Discussed with TAX ASSOCIATE at bedside Bipin Shah MD December 21, 2016 11:43
[2016-12-21] MEDS: RESP: ALBUTEROL 2.5 MG/IPRATROPIUM 0.5 MG NEB (SCH) NEB ×3 (11:58→20:59)
[2016-12-21] MEDS: FAMOTIDINE 20 MG TAB NG SCH (20:26)
[2016-12-21] MEDS: levETIRAcetam 500 MG/5 ML UDC NG SCH (20:26)
[2016-12-22] VITALS (17 sets, daily range): BP systolic 95–148; BP diastolic 50–84; PULSE 83–109; RESP 15–30; TEMP 97.7–98.2; O2SAT 92–98
[2016-12-22] MEDS: INSULIN NovoLIN REGULAR SUPPLEMENTAL SCALE SQ SCH ×4 (02:00→20:00)
[2016-12-22] MEDS: CHLORHEXIDINE GLUCONATE 2 % 1 PACK (2 CLOTHS) TOP SCH (04:00)
[2016-12-22] MEDS: PIPERACIL-TAZO 3.375 GM PREMIX 50 ML IV SCH ×4 (04:36→21:28)
--- NOTE | 2016-12-22 04:56 | RADRPT ---
EXAM DATE/TIME: 12/22/2016 04:18 [place] COMPARISON: CHEST SINGLE AP, December 17, 2016, 2:52. INDICATIONS : Shortness of breath. MEDICAL HISTORY : Hypertension. Chronic obstructive pulmonary disease. Myocardial infarction. SURGICAL HISTORY : None. ENCOUNTER: Subsequent ACUITY: 1 week PAIN SCORE: 0/10 LOCATION: Bilateral chest FINDINGS: A single view of the chest demonstrates the lungs to be symmetrically aerated without evidence of mas s, infiltrate or effusion. The tracheostomy tube remains in place. The cardiomediastinal contours ar e unremarkable. Osseous structures are intact. There is overlying electrocardiogram leads. CONCLUSION: No acute disease. Lenny Kerns MD on December 22, 2016 at 4:53 Board Certified Radiologist. This report was verified electronically.
[2016-12-22 06:02] LABS: AUTOMATED NEUTROPHIL # 5.9 TH/MM3 (1.8-7.7); BASOPHIL # 0.1 TH/MM3 (0-0.2); BASOPHIL % 0.7 % (0.0-2.0); EOSINOPHIL # 0.6 TH/MM3 (0-0.4); EOSINOPHIL % 6.2 % (0.0-4.0); HEMATOCRIT 28.8 % (35.0-46.0); HEMO FLAGS DIFF FINAL; LYMPH % 22.1 % (9.0-44.0); LYMPHOCYTE # 2.1 TH/MM3 (1.0-4.8); MEAN CELL VOLUME 80.7 FL (80.0-100.0); MEAN CORPUSCULAR HEMOGLOBIN 25.3 PG (27.0-34.0); MEAN CORPUSCULAR HGB CONC 31.4 % (32.0-36.0); MONO % 7.8 % (0.0-8.0); NEUT % 63.2 % (16.0-70.0); PLATELET COUNT 401 TH/MM3 (150-450); RED BLOOD COUNT 3.57 MIL/MM3 (4.00-5.30); RED CELL DISTRIBUTION WIDTH 16.9 % (11.6-17.2); WHITE BLOOD COUNT 9.4 TH/MM3 (4.0-11.0)
[2016-12-22 06:37] LABS: ALKALINE PHOSPHATASE 100 U/L (45-117); ALT (GPT) 69 U/L (10-53); ANION GAP 6 MEQ/L (5-15); AST (GOT) 38 U/L (15-37); BICARBONATE 29.4 MEQ/L (21.0-32.0); BLOOD UREA NITROGEN 23 MG/DL (7-18); CHLORIDE 110 MEQ/L (98-107); GLOMERULAR FILTRATION RATE 140 ML/MIN (>89); MAGNESIUM 2.4 MG/DL (1.5-2.5); POTASSIUM 3.8 MEQ/L (3.5-5.1); SODIUM (NA) 145 MEQ/L (136-145); TOTAL BILIRUBIN ADULT 0.3 MG/DL (0.2-1.0)
[2016-12-22] MEDS: CHLORHEXIDINE 0.12% (ORAL KIT) 15 ML CUP MT SCH ×2 (07:43→21:29)
[2016-12-22] MEDS: ATORVASTATIN 40 MG TAB PO SCH (07:45)
[2016-12-22] MEDS: BROMOCRIPTINE MESYLATE 2.5 MG TAB OG-TUBE SCH ×2 (07:45→21:34)
[2016-12-22] MEDS: FOLIC ACID 1 MG TAB OG-TUBE SCH (07:45)
[2016-12-22] MEDS: ASPIRIN 81 MG CHEW TAB NG SCH (07:45)
[2016-12-22] MEDS: FAMOTIDINE 20 MG TAB NG SCH ×2 (07:45→21:34)
[2016-12-22] MEDS: SODIUM CHLORIDE 0.9% FLUSH 10 ML FLUSH IV FLUSH SCH ×2 (07:46→21:28)
[2016-12-22] MEDS: levETIRAcetam 500 MG/5 ML UDC NG SCH ×2 (07:46→21:28)
[2016-12-22] MEDS: SENNOSIDES SYRUP 8.8 MG/5 ML CUP PO SCH ×2 (07:48→21:28)
[2016-12-22] MEDS: POLYETHYLENE GLYCOL 17 GM PKG PO SCH (07:48)
[2016-12-22] MEDS: LACTULOSE SYRUP 20 GM/30 ML CUP PO SCH ×2 (07:48→21:28)
[2016-12-22] MEDS: DOCUSATE SODIUM 100 MG/10 ML UDC PO SCH ×2 (07:48→21:28)
--- NOTE | 2016-12-22 08:51 | HHI.CCPN ---
Subjective Remarks/Hospital Course 65-year-old female with past medical history of stroke for which she at one point was on warfarin but had been discontinued. She was was admitted to [facility] emergency department 11/04/16 with difficulty getting her thoughts together. She was found to have multifocal nonhemorrhagic infarcts in left frontal and parietal regions, right frontal lobe and history of moyamoya disease. She was initially awake and following commands with weakness of RLE and some aphasia. She was transferred to [facility] where he had an cerebral angiogram consistent with moyamoya. There were plans to perform extracranial/intracranial bypass. However she had a seizure and ended up being intubated for status either 11/09 or 11/10.. She was found to have a new right frontal infarct area and she was started on Dilantin and Keppra and it was felt that she would not be a candidate for intervention. She has been intubated 9-10 days and apparently she has been tolerating C Pap trials to some extent but mental status prevents extubation. Treating team was discussing with family trach/PEG. Apparently family requested transfer back to [place] because they live locally here and wanted her closer to home. Apparently she had been sedated initially with propofol but then was on Precedex from 11/12-11/14. Appears she has been off all continuous sedation since 11/14. 11/19 No acute events overnight. Palliative care has been consult at family meeting is scheduled for today. After family meeting will will discuss placement of tracheostomy and/or and PEG, based on family's wishes. 11/20: Afebrile .No change in neurological status. Consult placed for tracheostomy and PEG placement as requested by family yesterday. 11/21: Afebrile. Tracheostomy plan for some time next week with general surgery , will try to coordinate with GI for PEG placement. 11/22 No acute events overnight. FOr PEG tube placement today. Afebrile. On no sedation. 11/23 Patient remains intubated on no sedation s/p PEG tube placement yesterday for trach today. Afebrile. 11/24 No acute events overnight. For trach today. Afebrile. 11/25 Patient s/p trach yesterday had an episode of emesis overnight and tube feeds placed on hold. Afebrile. 11/26 Patient is on ventilator via trach tolerated tube feeds during day however she had another episode of emesis overnight and tube feeds placed on hold. 11/27 Patient noted to have bloody secretions with suctioning and around trach site. Spiked fever with : 101.3 at 3am. Tolerated CPAP x 4 hrs and TP 2.5 hrs yesterday. 11/28 No acute events overnight. Afebrile. Tolerated CPAP x 2 hrs yesterday. Bloody secretions resolved. Afebrile. 11/29 Patient remains on ventilator via trach on sedation tolerating CPAP trials. 11/30 Patient spiked fever with T: 101.0 last night. On ventilator via trach. Tolerating tube feeds. 12/01: Remains on mechanical ventilation via tracheostomy. 12/02: Remains encephalopathic, on mechanical ventilation via tracheostomy. Tolerating tube feeds. Off all sedation. 12/03: Remains encephalopathic, on mechanical ventilation via tracheostomy. Remains off all sedation. Tolerating PEG feeds 12/04: Opens eyes however remains encephalopathic and not following commands. On mechanical ventilation via tracheostomy. Tolerated TPs during daytime yesterday. Tolerating PEG feeds. 12/05: Remains encephalopathic, on mech vent via trach. Daily C Pap trials. 12/06: Remains encephalopathic. Has spontaneous eye opening however not tracking. Remains on mechanical ventilation via tracheostomy. Daily C Pap trials ongoing. 12/07: Remains encephalopathic. On mechanical ventilation via tracheostomy. Daily C Pap trials. 12/08: Remains encephalopathic, on mechanical ventilation via tracheostomy. No significant neurologic improvement. Daily C Pap trials ongoing. 12/09: Patient has been maintained on trach collar for greater than 24 hours. Mental status unchanged. 12/10: Patient continues on trach collar at 28% FiO2. Antibiotics discontinued. Repeat urine culture obtained. 12/11: No acute events overnight. Trach sutures removed today. The patient continues on trach collar 28%. Afebrile 12/12: The patient remains encephalopathic. Patient's on trach collar continues on 28% FiO2. Urine culture negative. 12/13: The patient was noted to have a slight increase in respiratory rate, appeared to be slightly labored breathing. Patient suctioned well, and closely monitored with resolution of symptomatology. The patient remains encephalopathic. Doing well on trach collar 12/14: The patient was noted to have thickened yellow tracheal secretions, culture and Gram stain sent. The patient remains encephalopathic. Continues on FiO2 of 28% 12/15: Afebrile .Remains encephalopathic. The patient continues on trach collar. Sputum culture still pending. 12/16: Afebrile. Sputum culture resulted staph aureus, and gram-negative rods. ID following. The patient remains encephalopathic. Continues on trach collar with FiO2 28%. 12/17:No events overnight. Afebrile. On TP's with 28% FIO2. CXR this morning improved aeration of left lower lung. 12/18:Patient remains encephalopathic. No acute issues overnight. Continues on trach collar. Sputum culture resulted Pseudomonas, and staph aureus will begin antibiotics. 12/19: Patient spiked a temp last evening 101.4, T piece FiO2 concentration was increased to 33%, now decreased back to 28%. Patient was placed on vancomycin and Zosyn. 12/20: Afebrile .Sputum cultures yesterday revealed Pseudomonas, and staph aureus. The patient continues on antibiotics, and trach collar. 12/21: Currently afebrile. On T piece FiO2 28% tolerating well. Some secretions noted. Tolerating tube feeds. Positive BM Subjective 12/22: Afebrile. On T piece. Minimal secretions. Tolerating tube feeds. Positive BM. Awake and interactive. Objective Vital Signs Date Time Temp Pulse Resp B/P Pulse Ox O2 Delivery O2 Flow Rate FiO2 12/22/16 06:00 102 12/22/16 04:00 97.8 17 120/59 92 12/21/16 20:59 T-piece 6.00 28 Intake and Output 12/21/16 12/21/16 12/22/16 08:00 16:00 00:00 Intake Total 792 ml 1014 ml 761 ml Output Total 450 ml 300 ml 450 ml Balance 342 ml 714 ml 311 ml Result Diagram: 12/22/16 0519 12/22/16 0519 Imaging Last Impressions Chest X-Ray 12/22/16 0600 Signed Impressions: Service Date/Time: Thursday, December 22, 2016 04:18 - CONCLUSION: No acute disease. Lenny Kerns MD Brain MRI 12/17/16 0000 Signed Impressions: Service Date/Time: Saturday, December 17, 2016 21:37 - CONCLUSION: Evolving bifrontal signal changes as described Nghia Pacheco MD Abdomen X-Ray 4/21/17 0000 Signed Impressions: Service Date/Time: Saturday, November 26, 2016 10:18 - CONCLUSION: Distended stomach otherwise nonspecific abdomen. Jackson Murillo MD Objective Remarks GENERAL: Patient is 65 yo on ventilator via trach collar and currently nonresponsive SKIN: Warm and dry. Unresponsive HEAD: Normocephalic. EYES: No scleral icterus. No injection or drainage. NECK: Supple, trachea midline. No JVD or lymphadenopathy. Trach in place without erythema CARDIOVASCULAR: Regular rate and rhythm S1, S2 no S4 without murmur without murmurs, gallops, or rubs. RESPIRATORY: Breath sounds equal bilaterally. No accessory muscle use. GASTROINTESTINAL: Abdomen soft, non-tender, nondistended. PEG tube in place and is clean dry and intact without erythema MUSCULOSKELETAL: Trace nonpitting lower extremity edema Neuro: Opens eyes however remains encephalopathic and does not follow commands. 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 Flores Has been evaluated tertiary care center and felt to not be a candidate for further intervention. RESP: Vent dependent respiratory failure COPD Multilobular pneumonia Continue with oxygen keep sat >92% Bronchodilators 4 times a day ICU vent bundle s/p trach 11/[address] Aleman. Pulm toilet, trach care Trach collar FiO2 28% CV: Coronary artery disease with prior myocardial infarction Hypertension Right ICA occlusion Dyslipidemia Monitor HR and BP keep MAP>65mmHg. Continue with ASA 324 mg daily and, atorvastatin 40 mg by mouth daily for dyslipidemia Echocardiogram revealed EF 55-60%. Severe MR. Normal systolic function GI: Dysphagia s/p PEG tube placement 11/22 Cholelithiasis Continue TF(Jevity 1.5 with goal rate 60 mL per hour) monitor for residuals- minimal On Pepcid 20 mg by PEG twice a dayfor GI prophylaxis Monitor LFT's ( resolved) US liver: Cholelithiasis Bowel regimen with Colace, Senna , Miralax, Lactulose. /Renal: Monitor renal function, Accurate I/O's, ID: Klebsiella/MSSA pneumonia 12/18 placed on Zosyn (day 4) discontinued vancomycin Pertinent cultures 11/25 Sputum cx: Staph species, Kleb pneumonia both sensitive to Rocephin 11/25 Urine: Kleb pneumonia BC from 11/27- NGTD BC x 2 sets drawn on 11/30 with no growth, sputum and urine cx 11/29 growing klebsiella 12/09 Repeat urine culture -NGTD 12/15 Sputum culture -MSSA, Pseudomonas- HEME: Normocytic anemia Monitor CBC intermittently ENDO: Euglycemic currently not requiring insulin scale insulin PROPH: Hold DVT prophylaxis per neurology secondary to bilateral CVAs. Pepcid 20 mg twice a day daily for stress ulcer prophylaxis. ACCESS: Peripheral IV's x 2. Palliative care medicine is following Case management continued evaluation for LTAC placement. Level 2 Bipin Shah MD December 22, 2016 08:51
[2016-12-22] MEDS: RESP: ALBUTEROL 2.5 MG/IPRATROPIUM 0.5 MG NEB (SCH) NEB ×4 (09:10→20:08)
--- NOTE | 2016-12-22 15:17 | HHI.HCPN ---
Reason for visit a. To assist with evaluation and management of symptoms including: encephalopathy, seizure, dyspnea. b. To assist medical decision maker(s) with: better understanding of current medical conditions; weighing benefits/burdens of medical treatment options; making medical treatment decisions. . Subjective/Interval History Seen to follow up on comfort, neurological status. Seen today with no family in the room. Family meeting previously scheduled for 12/20, however, no family came to the meeting. There is some difference of opinion between the sister Maria Del Carmen, who feels that her mother would not wish to live in this condition, and the sister, Marcelo, who wishes more aggressive measures. There is also one son who is more in agreement with Teresa that a DNR status would be more appropriate. Separate telephone conversations were held between JAYLA Guthrie and the sister's Maria Del Carmen and Marcelo with the resulting decision to hold off on DNR until all family members can come to an agreement. Neurology was contacted to update the family at the request of the sister, Marcelo. Dr. Flores did evaluate the patient and felt that she looked better and may eventually interact and possibly speak however feels that some damage was done to the language area per his interpretation on the MRI. She remains on Keppra for seizure prophylaxis. 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 She remains on full support including tube feeding she is tolerating well. She remains mildly anemic by current lab studies with hemoglobin 9.0 and hematocrit 28.8 with stable chemistries total albumin has shown minimal improvement to 2.3 from a low of 1.9. Sputum cultures done 12/15 shows staph aureus and pseudomonas aeruginosa resistant to Levaquin but sensitive to Zosyn which she is currently receiving. Chest x-ray shows no acute disease. She shows minimal response to painful stimuli opens her eyes spontaneously but not to command. Blinks to visual threat but does not track examiner. She is pending placement and I did discuss this with the director of casework, Rita Nichols , who states that she is still pending SSI/Medicaid and at this time has no payor source and has been declined by all queried facilities. Case management continues to follow the SSI/Medicaid application to facilitate processing. . Advance Directives Living Will: Never completed Health Care Surrogate: Never completed Durable Power of Transportation Sales Consultant: Never completed Advance Directive Specifics Health Care Surrogate(s): No known written advance directives. Patient currently incapacitated to make her healthcare decisions. According to [place] statutes health care proxy decision-making falls to the majority of adult children. Patient has 3 children. . Objective Vital Signs Date Time Temp Pulse Resp B/P Pulse Ox O2 Delivery O2 Flow Rate FiO2 12/22/16 14:00 89 12/22/16 12:00 97.9 89 17 95/50 95 12/22/16 12:00 83 12/22/16 10:00 97 12/22/16 09:11 95 T-piece 6.00 28 12/22/16 08:00 97 12/22/16 08:00 98.2 97 22 148/78 92 12/22/16 07:00 91 T-Piece 28 Humidified 12/22/16 06:00 102 12/22/16 04:00 89 12/22/16 04:00 97.8 89 17 120/59 92 12/22/16 02:00 99 12/22/16 01:00 85 12/22/16 00:00 95 12/22/16 00:00 98.2 95 28 134/74 94 12/22/16 00:00 95 12/21/16 22:00 90 12/21/16 20:59 96 T-piece 6.00 28 12/21/16 20:00 98.0 100 19 141/69 96 12/21/16 20:00 100 12/21/16 19:00 95 T-Piece 28 Humidified 12/21/16 18:00 100 12/21/16 16:00 108 12/21/16 16:00 98.8 108 22 146/85 95 Intake & Output 12/22/16 12/22/16 06:59 18:59 Intake Total 1239 ml 599 ml Output Total 800 ml 250 ml Balance 439 ml 349 ml IV Total 299 ml 126 ml Tube Feeding 820 ml 423 ml Tube Irrigant 50 ml Other 120 ml Output Urine Total 800 ml 250 ml # Bowel Movements 1 Physical Exam CONSTITUTIONAL/GENERAL: minimally responsive, on T piece TUBES/LINES/DRAINS: PIV LALI extremity, Tracheostomy, PEG, Brown, SCDs, multipodus boots. CARDIOVASCULAR: Regular rate and rhythm, S1, S2 no murmur or gallop RESPIRATORY/CHEST: trach midline. Symmetric, unlabored respirations via trach to 28% fio2 T piece . Clear to auscultation. GASTROINTESTINAL: Abdomen soft, nondistended. Bowel sounds active. +PEG LUQ site asymptomatic, +TF infusing GENITOURINARY: Without palpable bladder distension. Brown catheter in place- clear yellow urine. NEUROLOGICAL: Eyes open spontaneous. Does not track examiner. Extremities with no withdrawal to pain but some facial grimacing to painful stimuli. PSYCHIATRIC: off sedation > 2 week. Limited clinical assessment, non-responsive , no signs of anxiety . Diagnostic Tests Laboratory Laboratory Tests Test 12/20/16 12/20/16 12/22/16 05:57 22:39 05:19 White Blood Count 9.4 TH/MM3 9.4 TH/MM3 (4.0-11.0) (4.0-11.0) Red Blood Count 3.88 MIL/MM3 3.57 MIL/MM3 (4.00-5.30) (4.00-5.30) Hemoglobin 10.3 GM/DL 9.0 GM/DL (11.6-15.3) (11.6-15.3) Hematocrit 31.7 % 28.8 % (35.0-46.0) (35.0-46.0) Mean Corpuscular Volume 81.7 FL 80.7 FL (80.0-100.0) (80.0-100.0) Mean Corpuscular Hemoglobin 26.5 PG 25.3 PG (27.0-34.0) (27.0-34.0) Mean Corpuscular Hemoglobin 32.4 % 31.4 % Concent (32.0-36.0) (32.0-36.0) Red Cell Distribution Width 16.7 % 16.9 % (11.6-17.2) (11.6-17.2) Platelet Count 468 TH/MM3 401 TH/MM3 (150-450) (150-450) Mean Platelet Volume 8.8 FL 8.6 FL (7.0-11.0) (7.0-11.0) Creatinine 0.51 MG/DL 0.45 MG/DL (0.50-1.00) (0.50-1.00) Estimat Glomerular Filtration 122 ML/MIN 140 ML/MIN Rate (>89) (>89) Vancomycin Level Trough 12.4 MCG/ML (5.0-10.0) Neutrophils (%) (Auto) 63.2 % (16.0-70.0) Lymphocytes (%) (Auto) 22.1 % (9.0-44.0) Monocytes (%) (Auto) 7.8 % (0.0-8.0) Eosinophils (%) (Auto) 6.2 % (0.0-4.0) Basophils (%) (Auto) 0.7 % (0.0-2.0) Neutrophils # (Auto) 5.9 TH/MM3 (1.8-7.7) Lymphocytes # (Auto) 2.1 TH/MM3 (1.0-4.8) Monocytes # (Auto) 0.7 TH/MM3 (0-0.9) Eosinophils # (Auto) 0.6 TH/MM3 (0-0.4) Basophils # (Auto) 0.1 TH/MM3 (0-0.2) CBC Comment DIFF FINAL Differential Comment Sodium Level 145 MEQ/L (136-145) Potassium Level 3.8 MEQ/L (3.5-5.1) Chloride Level 110 MEQ/L (98-107) Carbon Dioxide Level 29.4 MEQ/L (21.0-32.0) Anion Gap 6 MEQ/L (5-15) Blood Urea Nitrogen 23 MG/DL (7-18) Random Glucose 114 MG/DL (74-106) Calcium Level 8.6 MG/DL (8.5-10.1) Phosphorus Level 3.3 MG/DL (2.5-4.9) Magnesium Level 2.4 MG/DL (1.5-2.5) Total Bilirubin 0.3 MG/DL (0.2-1.0) Aspartate Amino Transf 38 U/L (15-37) (AST/SGOT) Alanine Aminotransferase 69 U/L (10-53) (ALT/SGPT) Alkaline Phosphatase 100 U/L (45-117) Total Protein 6.8 GM/DL (6.4-8.2) Albumin 2.3 GM/DL (3.4-5.0) Result Diagram: 12/22/16 0519 12/22/16 05 Imaging Last Impressions Chest X-Ray 12/22/16 0600 Signed Impressions: Service Date/Time: Thursday, December 22, 2016 04:18 - CONCLUSION: No acute disease. Lenny Kerns MD Brain MRI 12/17/16 0000 Signed Impressions: Service Date/Time: Saturday, December 17, 2016 21:37 - CONCLUSION: Evolving bifrontal signal changes as described Nghia Pacheco MD Abdomen X-Ray 11/26/16 0000 Signed Impressions: Service Date/Time: Saturday, November 26, 2016 10:18 - CONCLUSION: Distended stomach otherwise nonspecific abdomen. K. David Murillo MD Procedures 11/22 - PEG placement 11/30 - tracheostomy Assessment and Plan Disease Oriented Problem List: (1) CVA (cerebral vascular accident) (2) Moyamoya disease (3) Seizure Comment: On Keppra . (4) Generalized weakness Symptom Scale: (1) Seizure 0-10 Scale: 0 (2) Generalized weakness 0-10 Scale: Unable to quantify (3) Dyspnea 0-10 Scale: Unable to quantify Comment: On mechanical ventilation Pertinent Non-Medical Issues Psychosocial: Single. Has 2 daughters and one son. Spiritual: unknown. Legal: Ethical issues impacting care: No known concerns at this time. . Important Contacts * Maria Del Carmen Rivas, daughter: [phone] * Marcelo Rivas, daughter: [phone] * Dwight Rivas, son: [phone] . Prognosis MRI/EEG reviewed by neurology, prognosis felt to be poor, infarct noted to be huge. Repeat MRI done 12/[address] Flores and he feels that she may regain some ability to speak but does note that the infarct was a huge right frontal CVA and increased size of the left frontal CVA. EEG showed some left "sharps" and his recommendation was to continue Keppra. Prognosis remains poor in light of the most current studies. Code Status: Full Code Plan * Patient is incapacitated to make healthcare decisions. No known written advanced directives. According to [place] Statutes, health care proxy decision making falls to majority of adult children. Patient has 2 daughters (Marcelo Joyce) and 1 son (Dwight). * CODE STATUSFULL CODE * GOALS: Currently remain aggressive. There are differing opinions between the 2 daughters regarding DNR status and repeat neurology evaluation has been requested and completed. MRI showed an increasing size of the left frontal CVA which is felt to indicate some damage to the language area, however Dr. Flores states that he feels eventually she may speak and interact more. As the daughter Marcelo, is struggling with the DNR option, it was the opinion of the other daughter, Maria Del Carmen, that they would continue full CODE STATUS at this time until the family could reach a consensus. A family meeting was potentially scheduled for 12/20/16 however, family members did not make contact. * SYMPTOMS: Seizure: hx seizures 2/2 CVA; EEG showed "left sharps" and was continued per neurology. Weakness: due to prolonged hospital course, bilateral infarcts. Not regaining any purposeful or spontaneous movements as of yet. PT continues to follow working with bed mobility requiring maximum assistance Dyspnea: Off sedation. tolerating T Piece . No signs of tachypnea, or dyspnea. She remains at risk for complications due to severe mitral regurgitation, tracheostomy and immobility. Encephalopathy: minimally responsive at this time off sedation > 2 week. Will monitor. Constipation: Regular stooling via rectal tube. In summary the patient remains encephalopathic with a poor prognosis. Neurology is of the opinion that the patient may possibly regain some function in the future however does note the huge size of the infarct. Family members continue to struggle with the patient's prognosis and resuscitation status. We will continue conversations to assist their understanding of the patient's function to facilitate their decision-making. Placement continues to be difficult due to lack of a payor source. Case management is following. Palliative care will continue to follow during hospital course as condition evolves, to assist patient/decision-maker with understanding of medical conditions, weighing benefits/burdens of treatment options, for clarification of goals of treatment. Additionally will assist with any symptoms of palliative concern. . Attestation To help prompt me to consider important information that might be impacting today's encounter and assessment, information from prior notes written by myself or my colleagues may have been "brought forward" into today's note. My signature on this note, however, is an attestation that I personally performed the exam, history, and/or decision-making noted today, and, unless otherwise indicated, the interactions with patient, family, and staff as well as the review of records all occurred today. I also attest that the listed assessment and stated plan reflect my best clinical judgment today based on the combination of historical information, prior notes, and today's exam/ interactions. When time spent is documented, it refers only to time spent today by the signer, or if indicated, combined time spent today by collaborating physician/nurse practitioner. Grecia Ernst December 22, 2016 3:17 pm
[2016-12-23] VITALS (16 sets, daily range): BP systolic 105–144; BP diastolic 64–80; PULSE 95–109; RESP 17–28; TEMP 98–99; O2SAT 93–97
[2016-12-23] MEDS: INSULIN NovoLIN REGULAR SUPPLEMENTAL SCALE SQ SCH ×4 (02:00→19:55)
[2016-12-23] MEDS: CHLORHEXIDINE GLUCONATE 2 % 1 PACK (2 CLOTHS) TOP SCH (04:00)
[2016-12-23] MEDS: PIPERACIL-TAZO 3.375 GM PREMIX 50 ML IV SCH ×4 (04:14→19:54)
[2016-12-23] MEDS: ACETAMINOPHEN/HYDROcodone 325 MG/5 MG TAB PO PRN ×2 (04:14→09:23)
[2016-12-23] MEDS: RESP: ALBUTEROL 2.5 MG/IPRATROPIUM 0.5 MG NEB (SCH) NEB ×4 (07:58→21:20)
[2016-12-23] MEDS: CHLORHEXIDINE 0.12% (ORAL KIT) 15 ML CUP MT SCH ×2 (08:00→19:56)
--- NOTE | 2016-12-23 08:52 | HHI.CCPN ---
Subjective Remarks/Hospital Course 65-year-old female with past medical history of stroke for which she at one point was on warfarin but had been discontinued. She was was admitted to [facility] emergency department 11/04/16 with difficulty getting her thoughts together. She was found to have multifocal nonhemorrhagic infarcts in left frontal and parietal regions, right frontal lobe and history of moyamoya disease. She was initially awake and following commands with weakness of RLE and some aphasia. She was transferred to [facility] where he had an cerebral angiogram consistent with moyamoya. There were plans to perform extracranial/intracranial bypass. However she had a seizure and ended up being intubated for status either 11/09 or 11/10.. She was found to have a new right frontal infarct area and she was started on Dilantin and Keppra and it was felt that she would not be a candidate for intervention. She has been intubated 9-10 days and apparently she has been tolerating C Pap trials to some extent but mental status prevents extubation. Treating team was discussing with family trach/PEG. Apparently family requested transfer back to [place] because they live locally here and wanted her closer to home. Apparently she had been sedated initially with propofol but then was on Precedex from 11/12-11/14. Appears she has been off all continuous sedation since 11/14. 11/19 No acute events overnight. Palliative care has been consult at family meeting is scheduled for today. After family meeting will will discuss placement of tracheostomy and/or and PEG, based on family's wishes. 11/20: Afebrile .No change in neurological status. Consult placed for tracheostomy and PEG placement as requested by family yesterday. 11/21: Afebrile. Tracheostomy plan for some time next week with general surgery , will try to coordinate with GI for PEG placement. 11/22 No acute events overnight. FOr PEG tube placement today. Afebrile. On no sedation. 11/23 Patient remains intubated on no sedation s/p PEG tube placement yesterday for trach today. Afebrile. 11/24 No acute events overnight. For trach today. Afebrile. 11/25 Patient s/p trach yesterday had an episode of emesis overnight and tube feeds placed on hold. Afebrile. 11/26 Patient is on ventilator via trach tolerated tube feeds during day however she had another episode of emesis overnight and tube feeds placed on hold. 11/27 Patient noted to have bloody secretions with suctioning and around trach site. Spiked fever with : 101.3 at 3am. Tolerated CPAP x 4 hrs and TP 2.5 hrs yesterday. 11/28 No acute events overnight. Afebrile. Tolerated CPAP x 2 hrs yesterday. Bloody secretions resolved. Afebrile. 11/29 Patient remains on ventilator via trach on sedation tolerating CPAP trials. 11/30 Patient spiked fever with T: 101.0 last night. On ventilator via trach. Tolerating tube feeds. 12/01: Remains on mechanical ventilation via tracheostomy. 12/02: Remains encephalopathic, on mechanical ventilation via tracheostomy. Tolerating tube feeds. Off all sedation. 12/03: Remains encephalopathic, on mechanical ventilation via tracheostomy. Remains off all sedation. Tolerating PEG feeds 12/04: Opens eyes however remains encephalopathic and not following commands. On mechanical ventilation via tracheostomy. Tolerated TPs during daytime yesterday. Tolerating PEG feeds. 12/05: Remains encephalopathic, on mech vent via trach. Daily C Pap trials. 12/06: Remains encephalopathic. Has spontaneous eye opening however not tracking. Remains on mechanical ventilation via tracheostomy. Daily C Pap trials ongoing. 12/07: Remains encephalopathic. On mechanical ventilation via tracheostomy. Daily C Pap trials. 12/08: Remains encephalopathic, on mechanical ventilation via tracheostomy. No significant neurologic improvement. Daily C Pap trials ongoing. 12/09: Patient has been maintained on trach collar for greater than 24 hours. Mental status unchanged. 12/10: Patient continues on trach collar at 28% FiO2. Antibiotics discontinued. Repeat urine culture obtained. 12/11: No acute events overnight. Trach sutures removed today. The patient continues on trach collar 28%. Afebrile 12/12: The patient remains encephalopathic. Patient's on trach collar continues on 28% FiO2. Urine culture negative. 12/13: The patient was noted to have a slight increase in respiratory rate, appeared to be slightly labored breathing. Patient suctioned well, and closely monitored with resolution of symptomatology. The patient remains encephalopathic. Doing well on trach collar 12/14: The patient was noted to have thickened yellow tracheal secretions, culture and Gram stain sent. The patient remains encephalopathic. Continues on FiO2 of 28% 12/15: Afebrile .Remains encephalopathic. The patient continues on trach collar. Sputum culture still pending. 12/16: Afebrile. Sputum culture resulted staph aureus, and gram-negative rods. ID following. The patient remains encephalopathic. Continues on trach collar with FiO2 28%. 12/17:No events overnight. Afebrile. On TP's with 28% FIO2. CXR this morning improved aeration of left lower lung. 12/18:Patient remains encephalopathic. No acute issues overnight. Continues on trach collar. Sputum culture resulted Pseudomonas, and staph aureus will begin antibiotics. 12/19: Patient spiked a temp last evening 101.4, T piece FiO2 concentration was increased to 33%, now decreased back to 28%. Patient was placed on vancomycin and Zosyn. 12/20: Afebrile .Sputum cultures yesterday revealed Pseudomonas, and staph aureus. The patient continues on antibiotics, and trach collar. 12/21: Currently afebrile. On T piece FiO2 28% tolerating well. Some secretions noted. Tolerating tube feeds. Positive BM 12/22: Afebrile. On T piece. Minimal secretions. Tolerating tube feeds. Positive BM. Awake and interactive. Subjective 12/23: Resting comfortably in bed in no acute distress. Currently on trach collar trials. Tmax 99. Tolerating tube feeding. One bowel movement. Objective Vital Signs Date Time Temp Pulse Resp B/P Pulse Ox O2 Delivery O2 Flow Rate FiO2 12/23/16 08:00 98.6 98 28 105/64 95 12/23/16 07:00 T-Piece 28 Humidified 12/22/16 20:08 6.00 Intake and Output 12/22/16 12/22/16 12/23/16 08:00 16:00 00:00 Intake Total 478 ml 599 ml 693 ml Output Total 350 ml 250 ml 600 ml Balance 128 ml 349 ml 93 ml Result Diagram: 12/22/16 0512/22/16 05 Imaging Last Impressions Chest X-Ray 12/22/16 0600 Signed Impressions: Service Date/Time: Thursday, December 22, 2016 04:18 - CONCLUSION: No acute disease. Lenny Kerns MD Brain MRI 12/17/16 0000 Signed Impressions: Service Date/Time: Saturday, December 17, 2016 21:37 - CONCLUSION: Evolving bifrontal signal changes as described Nghia Pacheco MD Abdomen X-Ray 11/26/16 0000 Signed Impressions: Service Date/Time: Saturday, November 26, 2016 10:18 - CONCLUSION: Distended stomach otherwise nonspecific abdomen. Jackson Murillo MD Objective Remarks GENERAL: Patient is 65 yo on ventilator via trach collar with eyes open SKIN: Warm and dry. HEAD: Normocephalic. EYES: No scleral icterus. No injection or drainage. NECK: Supple, trachea midline. No JVD or lymphadenopathy. Trach in place without erythema CARDIOVASCULAR: Regular rate and rhythm S1, S2 no S4 without murmur without murmurs, gallops, or rubs. RESPIRATORY: Breath sounds equal bilaterally. No accessory muscle use. GASTROINTESTINAL: Abdomen soft, non-tender, nondistended. PEG tube in place and is clean dry and intact without erythema MUSCULOSKELETAL: Trace nonpitting lower extremity edema Neuro: Opens eyes and looking [id number]. Withdraws to pain. 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 Flores Has been evaluated tertiary care center and felt to not be a candidate for further intervention. RESP: Vent dependent respiratory failure COPD Multilobular pneumonia Continue with oxygen keep sat >92% Bronchodilators 4 times a day ICU vent bundle s/p trach 11/[address] Aleman. Pulm toilet, trach care Trach collar FiO2 28% CV: Coronary artery disease with prior myocardial infarction Hypertension Right ICA occlusion Dyslipidemia Monitor HR and BP keep MAP>65mmHg. Continue with ASA 324 mg daily and, atorvastatin 40 mg by mouth daily for dyslipidemia Echocardiogram revealed EF 55-60%. Severe MR. Normal systolic function GI: Dysphagia s/p PEG tube placement 11/22 Cholelithiasis Continue TF(Jevity 1.5 with goal rate 60 mL per hour) monitor for residuals- minimal On Pepcid 20 mg by PEG twice a day for GI prophylaxis Monitor LFT's ( resolved) US liver: Cholelithiasis Bowel regimen with Colace, Senna , Miralax, Lactulose. /Renal: Monitor renal function, Accurate I/O's, ID: Klebsiella/MSSA pneumonia 12/18 placed on Zosyn (day 6 of 8) discontinued vancomycin after 3 days Pertinent cultures 11/25 Sputum cx: Staph species, Kleb pneumonia both sensitive to Rocephin 11/25 Urine: Kleb pneumonia BC from 11/27- NGTD BC x 2 sets drawn on 11/30 with no growth, sputum and urine cx 11/29 growing klebsiella 12/09 Repeat urine culture -NGTD 12/15 Sputum culture -MSSA, Pseudomonas- HEME: Normocytic anemia Monitor CBC intermittently ENDO: Euglycemic currently not requiring insulin scale insulin PROPH: Hold DVT prophylaxis per neurology secondary to bilateral CVAs. Pepcid 20 mg twice a day daily for stress ulcer prophylaxis. ACCESS: Peripheral IV's x 2. Palliative care medicine is following Case management continued evaluation for LTAC placement. Level 2 Bipin Shah MD December 23, 2016 08:51
[2016-12-23] MEDS: SODIUM CHLORIDE 0.9% FLUSH 10 ML FLUSH IV FLUSH SCH ×2 (09:00→19:55)
[2016-12-23] MEDS: SENNOSIDES SYRUP 8.8 MG/5 ML CUP PO SCH ×2 (09:00→19:56)
[2016-12-23] MEDS: ASPIRIN 81 MG CHEW TAB NG SCH (09:19)
[2016-12-23] MEDS: LACTULOSE SYRUP 20 GM/30 ML CUP PO SCH ×2 (09:19→19:55)
[2016-12-23] MEDS: levETIRAcetam 500 MG/5 ML UDC NG SCH ×2 (09:19→19:54)
[2016-12-23] MEDS: FAMOTIDINE 20 MG TAB NG SCH ×2 (09:20→19:55)
[2016-12-23] MEDS: BROMOCRIPTINE MESYLATE 2.5 MG TAB OG-TUBE SCH ×2 (09:20→19:55)
[2016-12-23] MEDS: FOLIC ACID 1 MG TAB OG-TUBE SCH (09:20)
[2016-12-23] MEDS: ATORVASTATIN 40 MG TAB PO SCH (09:23)
[2016-12-23] MEDS: DOCUSATE SODIUM 100 MG/10 ML UDC PO SCH ×2 (09:23→19:57)
[2016-12-23] MEDS: POLYETHYLENE GLYCOL 17 GM PKG PO SCH (09:23)
[2016-12-23] MEDS ORDERED: PHARMACY ORDERED LAB ONE (10:45)
[2016-12-24] VITALS (14 sets, daily range): BP systolic 104–150; BP diastolic 55–98; PULSE 94–113; RESP 19–22; TEMP 98.1–98.6; O2SAT 94–97
[2016-12-24] MEDS: INSULIN NovoLIN REGULAR SUPPLEMENTAL SCALE SQ SCH ×4 (02:00→19:53)
[2016-12-24] MEDS: PIPERACIL-TAZO 3.375 GM PREMIX 50 ML IV SCH ×4 (02:58→19:52)
[2016-12-24] MEDS: CHLORHEXIDINE GLUCONATE 2 % 1 PACK (2 CLOTHS) TOP SCH (02:59)
[2016-12-24] MEDS: POLYETHYLENE GLYCOL 17 GM PKG PO SCH (07:49)
[2016-12-24] MEDS: CHLORHEXIDINE 0.12% (ORAL KIT) 15 ML CUP MT SCH ×2 (07:49→19:56)
[2016-12-24] MEDS: BROMOCRIPTINE MESYLATE 2.5 MG TAB OG-TUBE SCH ×2 (07:49→19:51)
[2016-12-24] MEDS: levETIRAcetam 500 MG/5 ML UDC NG SCH ×2 (07:49→19:52)
[2016-12-24] MEDS: DOCUSATE SODIUM 100 MG/10 ML UDC PO SCH ×2 (07:49→19:52)
[2016-12-24] MEDS: SENNOSIDES SYRUP 8.8 MG/5 ML CUP PO SCH ×2 (07:50→19:53)
[2016-12-24] MEDS: ASPIRIN 81 MG CHEW TAB NG SCH (07:50)
[2016-12-24] MEDS: LACTULOSE SYRUP 20 GM/30 ML CUP PO SCH ×2 (07:50→19:56)
[2016-12-24] MEDS: FOLIC ACID 1 MG TAB OG-TUBE SCH (07:50)
[2016-12-24] MEDS: ATORVASTATIN 40 MG TAB PO SCH (07:50)
[2016-12-24] MEDS: FAMOTIDINE 20 MG TAB NG SCH ×2 (07:50→19:52)
[2016-12-24] MEDS: RESP: ALBUTEROL 2.5 MG/IPRATROPIUM 0.5 MG NEB (SCH) NEB ×4 (08:03→19:58)
[2016-12-24] MEDS: SODIUM CHLORIDE 0.9% FLUSH 10 ML FLUSH IV FLUSH SCH ×2 (09:00→19:53)
[2016-12-24 10:11] LABS: MEAN CORPUSCULAR HEMOGLOBIN 25.9 PG (27.0-34.0); MEAN CORPUSCULAR HGB CONC 32.3 % (32.0-36.0); PLATELET COUNT 406 TH/MM3 (150-450); RED BLOOD COUNT 3.87 MIL/MM3 (4.00-5.30); RED CELL DISTRIBUTION WIDTH 17.4 % (11.6-17.2); REVIEW FLAG FINAL; WHITE BLOOD COUNT 10.7 TH/MM3 (4.0-11.0)
[2016-12-24 10:43] LABS: ALKALINE PHOSPHATASE 115 U/L (45-117); ALT (GPT) 57 U/L (10-53); ANION GAP 10 MEQ/L (5-15); AST (GOT) 32 U/L (15-37); BICARBONATE 26.2 MEQ/L (21.0-32.0); BLOOD UREA NITROGEN 20 MG/DL (7-18); CHLORIDE 106 MEQ/L (98-107); GLOMERULAR FILTRATION RATE 140 ML/MIN (>89); MAGNESIUM 2.5 MG/DL (1.5-2.5); POTASSIUM 3.8 MEQ/L (3.5-5.1); SODIUM (NA) 142 MEQ/L (136-145); TOTAL BILIRUBIN ADULT 0.4 MG/DL (0.2-1.0)
[2016-12-24] MEDS: ACETAMINOPHEN/HYDROcodone 325 MG/5 MG TAB PO PRN (12:50)
--- NOTE | 2016-12-24 12:58 | HHI.CCPN ---
Subjective Remarks/Hospital Course 65-year-old female with past medical history of stroke for which she at one point was on warfarin but had been discontinued. She was was admitted to [facility] emergency department 11/04/16 with difficulty getting her thoughts together. She was found to have multifocal nonhemorrhagic infarcts in left frontal and parietal regions, right frontal lobe and history of moyamoya disease. She was initially awake and following commands with weakness of RLE and some aphasia. She was transferred to [facility] where he had an cerebral angiogram consistent with moyamoya. There were plans to perform extracranial/intracranial bypass. However she had a seizure and ended up being intubated for status either 11/09 or 11/10.. She was found to have a new right frontal infarct area and she was started on Dilantin and Keppra and it was felt that she would not be a candidate for intervention. She has been intubated 9-10 days and apparently she has been tolerating C Pap trials to some extent but mental status prevents extubation. Treating team was discussing with family trach/PEG. Apparently family requested transfer back to [place] because they live locally here and wanted her closer to home. Apparently she had been sedated initially with propofol but then was on Precedex from 11/12-11/14. Appears she has been off all continuous sedation since 11/14. 11/19 No acute events overnight. Palliative care has been consult at family meeting is scheduled for today. After family meeting will will discuss placement of tracheostomy and/or and PEG, based on family's wishes. 11/20: Afebrile .No change in neurological status. Consult placed for tracheostomy and PEG placement as requested by family yesterday. 11/21: Afebrile. Tracheostomy plan for some time next week with general surgery , will try to coordinate with GI for PEG placement. 11/22 No acute events overnight. FOr PEG tube placement today. Afebrile. On no sedation. 11/23 Patient remains intubated on no sedation s/p PEG tube placement yesterday for trach today. Afebrile. 11/24 No acute events overnight. For trach today. Afebrile. 11/25 Patient s/p trach yesterday had an episode of emesis overnight and tube feeds placed on hold. Afebrile. 11/26 Patient is on ventilator via trach tolerated tube feeds during day however she had another episode of emesis overnight and tube feeds placed on hold. 11/27 Patient noted to have bloody secretions with suctioning and around trach site. Spiked fever with : 101.3 at 3am. Tolerated CPAP x 4 hrs and TP 2.5 hrs yesterday. 11/28 No acute events overnight. Afebrile. Tolerated CPAP x 2 hrs yesterday. Bloody secretions resolved. Afebrile. 11/29 Patient remains on ventilator via trach on sedation tolerating CPAP trials. 11/30 Patient spiked fever with T: 101.0 last night. On ventilator via trach. Tolerating tube feeds. 12/01: Remains on mechanical ventilation via tracheostomy. 12/02: Remains encephalopathic, on mechanical ventilation via tracheostomy. Tolerating tube feeds. Off all sedation. 12/03: Remains encephalopathic, on mechanical ventilation via tracheostomy. Remains off all sedation. Tolerating PEG feeds 12/04: Opens eyes however remains encephalopathic and not following commands. On mechanical ventilation via tracheostomy. Tolerated TPs during daytime yesterday. Tolerating PEG feeds. 12/05: Remains encephalopathic, on mech vent via trach. Daily C Pap trials. 12/06: Remains encephalopathic. Has spontaneous eye opening however not tracking. Remains on mechanical ventilation via tracheostomy. Daily C Pap trials ongoing. 12/07: Remains encephalopathic. On mechanical ventilation via tracheostomy. Daily C Pap trials. 12/08: Remains encephalopathic, on mechanical ventilation via tracheostomy. No significant neurologic improvement. Daily C Pap trials ongoing. 12/09: Patient has been maintained on trach collar for greater than 24 hours. Mental status unchanged. 12/10: Patient continues on trach collar at 28% FiO2. Antibiotics discontinued. Repeat urine culture obtained. 12/11: No acute events overnight. Trach sutures removed today. The patient continues on trach collar 28%. Afebrile 12/12: The patient remains encephalopathic. Patient's on trach collar continues on 28% FiO2. Urine culture negative. 12/13: The patient was noted to have a slight increase in respiratory rate, appeared to be slightly labored breathing. Patient suctioned well, and closely monitored with resolution of symptomatology. The patient remains encephalopathic. Doing well on trach collar 12/14: The patient was noted to have thickened yellow tracheal secretions, culture and Gram stain sent. The patient remains encephalopathic. Continues on FiO2 of 28% 12/15: Afebrile .Remains encephalopathic. The patient continues on trach collar. Sputum culture still pending. 12/16: Afebrile. Sputum culture resulted staph aureus, and gram-negative rods. ID following. The patient remains encephalopathic. Continues on trach collar with FiO2 28%. 12/17:No events overnight. Afebrile. On TP's with 28% FIO2. CXR this morning improved aeration of left lower lung. 12/18:Patient remains encephalopathic. No acute issues overnight. Continues on trach collar. Sputum culture resulted Pseudomonas, and staph aureus will begin antibiotics. 12/19: Patient spiked a temp last evening 101.4, T piece FiO2 concentration was increased to 33%, now decreased back to 28%. Patient was placed on vancomycin and Zosyn. 12/20: Afebrile .Sputum cultures yesterday revealed Pseudomonas, and staph aureus. The patient continues on antibiotics, and trach collar. 12/21: Currently afebrile. On T piece FiO2 28% tolerating well. Some secretions noted. Tolerating tube feeds. Positive BM 12/22: Afebrile. On T piece. Minimal secretions. Tolerating tube feeds. Positive BM. Awake and interactive. 12/23: Resting comfortably in bed in no acute distress. Currently on trach collar trials. Tmax 99. Tolerating tube feeding. One bowel movement. Subjective 12/24: Currently on trach collar. Afebrile. Tolerating tube feeds. Positive BM. Looks at you with eyes. Objective Vital Signs Date Time Temp Pulse Resp B/P Pulse Ox O2 Delivery O2 Flow Rate FiO2 12/24/16 12:00 98.6 108 22 150/98 97 12/24/16 08:04 Trach Collar 6.00 28 Intake and Output 12/23/16 12/23/16 12/24/16 08:00 16:00 00:00 Intake Total 532 ml 576 ml 805 ml Output Total 500 ml 650 ml 550 ml Balance 32 ml -74 ml 255 ml Result Diagram: 12/24/16 0947 12/24/16 0947 Imaging Last Impressions Chest X-Ray 12/22/16 0600 Signed Impressions: Service Date/Time: Thursday, December 22, 2016 04:18 - CONCLUSION: No acute disease. Lenny Kerns MD Brain MRI 12/17/16 0000 Signed Impressions: Service Date/Time: Saturday, December 17, 2016 21:37 - CONCLUSION: Evolving bifrontal signal changes as described Ngiha Pacheco MD Abdomen X-Ray 11/26/16 0000 Signed Impressions: Service Date/Time: Saturday, November 26, 2016 10:18 - CONCLUSION: Distended stomach otherwise nonspecific abdomen. Jackson Murillo MD Objective Remarks GENERAL: Patient is 65 yo on ventilator via trach collar with eyes open SKIN: Warm and dry. HEAD: Normocephalic. EYES: No scleral icterus. No injection or drainage. NECK: Supple, trachea midline. No JVD or lymphadenopathy. Trach in place without erythema CARDIOVASCULAR: Regular rate and rhythm S1, S2 no S4 without murmur without murmurs, gallops, or rubs. RESPIRATORY: Breath sounds equal bilaterally. No accessory muscle use. GASTROINTESTINAL: Abdomen soft, non-tender, nondistended. PEG tube in place and is clean dry and intact without erythema MUSCULOSKELETAL: Trace nonpitting lower extremity edema Neuro: Opens eyes and looking [id number]. Withdraws to pain. 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 Flores Has been evaluated tertiary care center [place] and felt to not be a candidate for further intervention. RESP: Vent dependent respiratory failure COPD Multilobular pneumonia Continue with oxygen keep sat >92% Bronchodilators with DuoNeb's 4 times a day ICU vent bundle s/p trach 11/[address] Aleman. Pulm toilet, trach care Trach collar FiO2 28% CV: Coronary artery disease with prior myocardial infarction Hypertension Right ICA occlusion Dyslipidemia Monitor HR and BP keep MAP>65mmHg. Continue with ASA 324 mg daily and, atorvastatin 40 mg by mouth daily for dyslipidemia Echocardiogram revealed EF 55-60%. Severe MR. Normal systolic function GI: Dysphagia s/p PEG tube placement 11/22 Cholelithiasis Continue TF(Jevity 1.5 with goal rate 60 mL per hour) monitor for residuals- minimal On Pepcid 20 mg by PEG twice a day for GI prophylaxis Monitor LFT's ( resolved) US liver: Cholelithiasis Bowel regimen with Colace, Senna , Miralax, Lactulose. /Renal: Monitor renal function, Accurate I/O's, ID: Klebsiella/MSSA pneumonia 12/18 placed on Zosyn (day of ) discontinued vancomycin after 3 days Pertinent cultures 11/25 Sputum cx: Staph species, Kleb pneumonia both sensitive to Rocephin 11/25 Urine: Kleb pneumonia BC from 11/27- NGTD BC x 2 sets drawn on 11/30 with no growth, sputum and urine cx 11/29 growing klebsiella 12/09 Repeat urine culture -NGTD 12/15 Sputum culture -MSSA, Pseudomonas- HEME: Normocytic anemia Monitor CBC intermittently ENDO: Euglycemic currently not requiring insulin scale insulin PROPH: Hold DVT prophylaxis per neurology secondary to bilateral CVAs. Pepcid 20 mg twice a day daily for stress ulcer prophylaxis. ACCESS: Peripheral IV's x 2. Palliative care medicine is following Case management continued evaluation for LTAC placement. Level 2 Patient is stable from a critical care medicine standpoint. We'll assign care to hospitalist in a.m. 12/25 consult pulmonology for tracheostomy management Bipin Shah MD December 24, 2016 12:58
--- NOTE | 2016-12-24 19:26 | MB ---
cc: YANIQUE ERICKSON DATE OF CONSULTATION 12/24/[address] Shah REASON FOR CONSULTATION Evaluate for trache management HISTORY OF PRESENT ILLNESS Ms. Rivas is a pleasant 65-year-old female with history of CVA. The patient was admitted into this hospital. She was on Coumadin which was discontinued. She had multifocal lesions. She was sent to [facility] and she was diagnosed with Jensen Jensen disease with angiogram and she was being planned for extracranial bypass. She developed seizure disorder and the procedure was postponed. She had developed respiratory failure, required tracheostomy tube. Currently she is on trache collar. She has significant amount of secretions and requires frequent suctioning, does not have any fever. PAST MEDICAL HISTORY 1. History of multiple strokes 2. Jensen Jensen disease, 3. Coronary artery disease, 4. COPD, 5. Hypertension. MEDICATIONS Currently 1. Famotidine 20 mg a day 2. Keppra 1500 mg q. 12-hour. 3. Albuterol/Atrovent nebulizer treatment. 4. Zosyn IV. 5. Metoprolol 5 mg p.r.n. 6. Insulin on sliding scale. 7. Colace twice a day. 8. Aspirin 324 mg a day. 9. Lipitor 40 mg a day, 10. Bromocriptine 2.5 mg q. 12-hour. 11. Folic acid 1 mg a day. ALLERGIES PABLO RELAXING MEDICATION. SOCIAL HISTORY She has a history of alcohol use in the past. No smoking. FAMILY HISTORY Noncontributory. PHYSICAL EXAMINATION GENERAL: Elderly female, opens eyes, looks around. She is on trache collar. VITAL SIGNS: Her blood pressure 135/65, heart rate 113, respiration 22, temperature 98.6 HEENT: Pupils are equal and reactive. NECK: Supple. She has a tracheostomy tube in place. CHEST: Equal bilaterally. No rhonchi. CARDIOVASCULAR: S1, S2 normal. ABDOMEN: Soft, nondistended. She has PEG tube in place. EXTREMITIES: No edema. LABORATORY FINDINGS WBC count is 10.7, hemoglobin 10, hematocrit 31, MCV 80, platelet count 406, INR 1.0. Sodium 142, potassium 3.8, chloride 106, CO2 26, BUN 20, creatinine 0.45. IMAGING STUDIES Her chest x-ray done on 12/22 shows no acute disease. IMPRESSION 1. Respiratory failure status post tracheostomy tube. 2. CVA 3. Jensen Jensen disease 4. COPD. 5. History of coronary artery disease. PLAN She will be maintained on tracheostomy tube. I will put her on T-tube which will facilitate frequent suctioning and avoid infections. Continue aerosol treatment and antibiotics and continue tube feeding. Further treatment will depend on the course in the hospital. Thank you, Dr. Shah, for this consultation. MD EDGAR Ryder/ /6:14 PM /7:07 PM [email or web address]
[2016-12-25] VITALS (17 sets, daily range): BP systolic 100–140; BP diastolic 54–85; PULSE 95–111; RESP 19–27; TEMP 98.2–99.9; O2SAT 92–97
[2016-12-25] MEDS: INSULIN NovoLIN REGULAR SUPPLEMENTAL SCALE SQ SCH ×4 (02:00→20:17)
[2016-12-25] MEDS: CHLORHEXIDINE GLUCONATE 2 % 1 PACK (2 CLOTHS) TOP SCH ×2 (02:51→20:19)
[2016-12-25] MEDS: PIPERACIL-TAZO 3.375 GM PREMIX 50 ML IV SCH ×4 (02:51→20:17)
[2016-12-25] MEDS: RESP: ALBUTEROL 2.5 MG/3 ML NEB (PRN) INH (04:02)
--- NOTE | 2016-12-25 05:55 | RADRPT ---
EXAM DATE/TIME: 12/25/2016 04:09 [place] COMPARISON: CHEST SINGLE AP, December 22, 2016, 4:18. INDICATIONS : Shortness of breath, possible pulmonary disease. MEDICAL HISTORY : Hypertension. Chronic obstructive pulmonary disease. Myocardial infarction. SURGICAL HISTORY : None. ENCOUNTER: Subsequent ACUITY: 1 week PAIN SCORE: Non-responsive. LOCATION: Bilateral chest FINDINGS: Tracheostomy in satisfactory position. Mild cardiomegaly. Hazy opacity in the lungs could represent e colette changes of edema. No significant effusion. CONCLUSION: 1. Questionable early changes of edema. Dependent atelectasis. Tracheostomy unchanged. Samuel Simons MD on December 25, 2016 at 5:52 Board Certified Radiologist. This report was verified electronically.
[2016-12-25 05:57] LABS: HEMATOCRIT 29.6 % (35.0-46.0); MEAN CELL VOLUME 80.3 FL (80.0-100.0); MEAN CORPUSCULAR HEMOGLOBIN 24.9 PG (27.0-34.0); PLATELET COUNT 343 TH/MM3 (150-450); RED BLOOD COUNT 3.69 MIL/MM3 (4.00-5.30); RED CELL DISTRIBUTION WIDTH 16.8 % (11.6-17.2); REVIEW FLAG FINAL; WHITE BLOOD COUNT 8.8 TH/MM3 (4.0-11.0)
[2016-12-25 06:10] LABS: BICARBONATE 27.8 MEQ/L (21.0-32.0); MAGNESIUM 2.3 MG/DL (1.5-2.5); POTASSIUM 3.5 MEQ/L (3.5-5.1)
[2016-12-25] MEDS: RESP: ALBUTEROL 2.5 MG/IPRATROPIUM 0.5 MG NEB (SCH) NEB ×4 (07:44→20:04)
[2016-12-25] MEDS: DOCUSATE SODIUM 100 MG/10 ML UDC PO SCH ×2 (09:00→20:18)
[2016-12-25] MEDS: POLYETHYLENE GLYCOL 17 GM PKG PO SCH (09:00)
[2016-12-25] MEDS: LACTULOSE SYRUP 20 GM/30 ML CUP PO SCH ×2 (09:00→20:18)
[2016-12-25] MEDS: SENNOSIDES SYRUP 8.8 MG/5 ML CUP PO SCH ×2 (09:00→20:18)
[2016-12-25] MEDS: levETIRAcetam 500 MG/5 ML UDC NG SCH ×2 (09:53→20:18)
[2016-12-25] MEDS: ATORVASTATIN 40 MG TAB PO SCH (09:53)
[2016-12-25] MEDS: CHLORHEXIDINE 0.12% (ORAL KIT) 15 ML CUP MT SCH ×2 (09:53→20:16)
[2016-12-25] MEDS: FOLIC ACID 1 MG TAB OG-TUBE SCH (09:54)
[2016-12-25] MEDS: BROMOCRIPTINE MESYLATE 2.5 MG TAB OG-TUBE SCH ×2 (09:54→20:17)
[2016-12-25] MEDS: ASPIRIN 81 MG CHEW TAB NG SCH (09:54)
[2016-12-25] MEDS: FAMOTIDINE 20 MG TAB NG SCH ×2 (09:55→20:17)
[2016-12-25] MEDS: SODIUM CHLORIDE 0.9% FLUSH 10 ML FLUSH IV FLUSH SCH ×2 (09:55→20:18)
--- NOTE | 2016-12-25 15:41 | HHI.PR ---
Subjective Remarks Follow-up bilateral frontal stroke, respiratory failure, pneumonia. Patient is alert, does not follow any commands. Tracks with her eyes. Remains afebrile. Objective Vitals Vital Signs Date Time Temp Pulse Resp B/P Pulse Ox O2 Delivery O2 Flow Rate FiO2 12/25/16 11:00 106 27 140/74 94 12/25/16 10:00 103 19 127/62 92 12/25/16 09:00 108 22 131/85 96 12/25/16 08:00 98.7 100 23 122/70 95 12/25/16 07:44 93 Trach Collar 8.00 35 12/25/16 07:00 T-Piece 28 Humidified 12/25/16 06:00 95 12/25/16 04:00 98 12/25/16 04:00 98.3 111 25 131/79 96 12/25/16 02:00 109 12/25/16 00:00 98.2 100 21 113/65 95 12/25/16 00:00 102 12/24/16 22:00 99 12/24/16 20:00 98.5 94 19 104/55 96 12/24/16 20:00 105 12/24/16 19:58 95 Trach Collar 5.00 28 12/24/16 19:00 96 T-Piece 28 Humidified 12/24/16 18:00 104 12/24/16 16:00 98.6 113 22 135/65 97 12/24/16 16:00 104 I/O 12/24/16 12/24/16 12/24/16 12/25/16 12/25/16 12/25/16 07:00 15:00 23:00 07:00 15:00 23:00 Intake Total 1270 ml 611 ml 739 ml 598 ml Output Total 450 ml 450 ml 500 ml 600 ml Balance 820 ml 161 ml 239 ml -2 ml IV Total 785 ml 125 ml 185 ml 83 ml Tube Feeding 365 ml 366 ml 434 ml 415 ml Other 120 ml 120 ml 120 ml 100 ml Output Urine Total 450 ml 450 ml 500 ml 600 ml # Bowel Movements 0 0 1 Result Diagram: 12/25/16 0532 12/25/16 0532 Imaging Last Impressions Chest X-Ray 12/25/16 0600 Signed Impressions: Service Date/Time: Sunday, December 25, 2016 04:09 - CONCLUSION: 1. Questionable early changes of edema. Dependent atelectasis. Tracheostomy unchanged. Samuel Simons MD Brain MRI 12/17/16 0000 Signed Impressions: Service Date/Time: Saturday, December 17, 2016 21:37 - CONCLUSION: Evolving bifrontal signal changes as described Nghia Pacheco MD Abdomen X-Ray 11/26/16 0000 Signed Impressions: Service Date/Time: Saturday, November 26, 2016 10:18 - CONCLUSION: Distended stomach otherwise nonspecific abdomen. K. David Murillo MD Objective Remarks GENERAL: Alert, eyes open, does not respond to verbal commands. Currently on T piece. SKIN: Warm and dry. HEAD: Normocephalic. EYES: No scleral icterus. No injection or drainage. NECK: Supple, trachea midline. No JVD or lymphadenopathy. CARDIOVASCULAR: Regular rhythm, tachycardic without murmurs, gallops, or rubs. RESPIRATORY: Breath sounds equal bilaterally. No accessory muscle use. GASTROINTESTINAL: Abdomen soft, non-tender, nondistended. MUSCULOSKELETAL: No cyanosis, or edema. Procedures 11/24/2016 Percutaneous tracheostomy. 11/18/2016 Moderate encephalopathy with suggestion of left temporal region cortical irritability. No active seizures. Clinical correlation. 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 Rivas is a 66-year-old female with a history of stroke who was admitted to the [facility] on 11/04/2016 due to difficulty getting her thoughts together. She was found to have multifocal nonhemorrhagic infarctions in the frontal and parietal regions. She was initially awake and following commands with weakness of RLE and some aphasia. She was transferred to [facility] where he had an cerebral angiogram consistent with moyamoya. There were plans to perform extracranial/intracranial bypass. However she had a seizure and ended up being intubated for status either 11/09 or 11/10.. She was found to have a new right frontal infarct area and she was started on Dilantin and Keppra and it was felt that she would not be a candidate for intervention. She has been intubated 9-10 days and apparently she has been tolerating C Pap trials to some extent but mental status prevents extubation. Treating team was discussing with family trach/PEG. Apparently family requested transfer back to [place] because they live locally here and wanted her closer to home. Patient remained under critical care medicine until 12/24/2016. - Bilateral frontal CVA - Moyamoya - confirmed by arteriogram at [facility] October 2016. - Seizure disorder Noted significant JOE/MCA disease bilaterally from previous imaging of brain Keppra 1500 mg switch to by PEG twice a day for seizures Continue ASA 324 mg daily, atorvastatin 40 mg by mouth daily Continue bromocriptine 2.5 mg by mouth BID EEG-noted sharp spikes Neurology is following at a distance-Dr. Flores Has been evaluated tertiary care center [place] and felt to not be a candidate for further intervention. - COPD - Acute respiratory failure - currently on T piece. - Multilobar pneumonia Status post tracheostomy on 11/24/2016. Pulmonary following. Continue Zosyn 3.375 g every 6 hours DuoNeb when necessary - Nutrition - continue Jevity 1.5 through PEG tube. Full code. SCDs. Famotidine twice a day Discharge plan: Difficult placement. Lucy Clayton DO December 25, 2016 3:41 pm
[2016-12-25] MEDS: ACETAMINOPHEN 325 MG TAB PO PRN (16:54)
[2016-12-26] VITALS (14 sets, daily range): BP systolic 113–143; BP diastolic 64–77; PULSE 91–125; RESP 21–25; TEMP 97.8–98.9; O2SAT 89–100
[2016-12-26] MEDS: PIPERACIL-TAZO 3.375 GM PREMIX 50 ML IV SCH ×4 (03:14→21:50)
[2016-12-26] MEDS: INSULIN NovoLIN REGULAR SUPPLEMENTAL SCALE SQ SCH ×4 (03:16→20:00)
[2016-12-26] MEDS: RESP: ALBUTEROL 2.5 MG/IPRATROPIUM 0.5 MG NEB (SCH) NEB ×4 (07:47→21:23)
[2016-12-26] MEDS: CHLORHEXIDINE 0.12% (ORAL KIT) 15 ML CUP MT SCH ×2 (08:00→20:00)
[2016-12-26] MEDS: SODIUM CHLORIDE 0.9% FLUSH 10 ML FLUSH IV FLUSH SCH ×2 (09:00→21:39)
[2016-12-26] MEDS: levETIRAcetam 500 MG/5 ML UDC NG SCH ×2 (09:00→21:49)
[2016-12-26] MEDS: SENNOSIDES SYRUP 8.8 MG/5 ML CUP PO SCH ×2 (09:00→21:00)
[2016-12-26] MEDS: POLYETHYLENE GLYCOL 17 GM PKG PO SCH (09:45)
[2016-12-26] MEDS: FAMOTIDINE 20 MG TAB NG SCH ×2 (09:45→21:49)
[2016-12-26] MEDS: FOLIC ACID 1 MG TAB OG-TUBE SCH (09:45)
[2016-12-26] MEDS: LACTULOSE SYRUP 20 GM/30 ML CUP PO SCH ×2 (09:46→21:00)
[2016-12-26] MEDS: DOCUSATE SODIUM 100 MG/10 ML UDC PO SCH ×2 (09:46→21:00)
[2016-12-26] MEDS: BROMOCRIPTINE MESYLATE 2.5 MG TAB OG-TUBE SCH ×2 (09:52→21:49)
[2016-12-26] MEDS: ATORVASTATIN 40 MG TAB PO SCH (09:52)
[2016-12-26] MEDS: ASPIRIN 81 MG CHEW TAB NG SCH (09:52)
--- NOTE | 2016-12-26 13:57 | HHI.PR ---
Subjective Remarks Follow-up bilateral frontal stroke, respiratory failure, pneumonia. Patient has her eyes open, tracks with her eyes. However, non-verbal and does not follow any commands. Objective Vitals Vital Signs Date Time Temp Pulse Resp B/P Pulse Ox O2 Delivery O2 Flow Rate FiO2 12/26/16 12:00 95 12/26/16 10:00 95 12/26/16 08:00 98 12/26/16 07:47 99 T-piece 8.00 35 12/26/16 07:00 T-Piece 30 Humidified 12/26/16 06:05 102 12/26/16 04:00 97.8 100 22 138/77 97 12/26/16 04:00 100 12/26/16 02:00 101 12/26/16 00:00 98.4 103 25 113/74 89 12/26/16 00:00 103 12/25/16 22:00 100 12/25/16 20:04 97 Trach Collar 8.00 35 12/25/16 20:00 98.9 107 26 134/74 97 12/25/16 20:00 107 12/25/16 19:00 98 Trach Collar 28 Humidified 12/25/16 16:00 98.8 109 22 121/63 93 12/25/16 15:00 104 27 111/71 92 12/25/16 14:00 104 21 100/54 92 I/O 12/25/16 12/25/16 12/25/16 12/26/16 12/26/16 12/26/16 07:00 15:00 23:00 07:00 15:00 23:00 Intake Total 598 ml 830 ml 857 ml 487 ml Output Total 600 ml 375 ml 650 ml 425 ml Balance -2 ml 455 ml 207 ml 62 ml IV Total 83 ml 115 ml 128 ml 152 ml Tube Feeding 415 ml 515 ml 509 ml 335 ml Tube Irrigant 200 ml 220 ml Other 100 ml Output Urine Total 600 ml 375 ml 650 ml 425 ml # Bowel Movements 1 1 1 Result Diagram: 12/25/16 0532 12/25/16 0532 Objective Remarks GENERAL: Alert, eyes open, does not respond to verbal commands. Currently on T piece. SKIN: Warm and dry. HEAD: Normocephalic. EYES: No scleral icterus. No injection or drainage. NECK: Supple, trachea midline. No JVD or lymphadenopathy. CARDIOVASCULAR: Regular rhythm, tachycardic without murmurs, gallops, or rubs. RESPIRATORY: Breath sounds equal bilaterally. No accessory muscle use. GASTROINTESTINAL: Abdomen soft, non-tender, nondistended. MUSCULOSKELETAL: No cyanosis, or edema. Procedures 11/24/2016 Percutaneous tracheostomy. 11/18/2016 Moderate encephalopathy with suggestion of left temporal region cortical irritability. No active seizures. Clinical correlation. 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 Rivas is a 66-year-old female with a history of stroke who was admitted to the [facility] on 11/04/2016 due to difficulty getting her thoughts together. She was found to have multifocal nonhemorrhagic infarctions in the frontal and parietal regions. She was initially awake and following commands with weakness of RLE and some aphasia. She was transferred to [facility] where he had an cerebral angiogram consistent with moyamoya. There were plans to perform extracranial/intracranial bypass. However she had a seizure and ended up being intubated for status either 4/4 or 4/5.. She was found to have a new right frontal infarct area and she was started on Dilantin and Keppra and it was felt that she would not be a candidate for intervention. She has been intubated 9-10 days and apparently she has been tolerating C Pap trials to some extent but mental status prevents extubation. Treating team was discussing with family trach/PEG. Apparently family requested transfer back to [place] because they live locally here and wanted her closer to home. Patient remained under critical care medicine until 12/24/2016. - Bilateral frontal CVA - Moyamoya - confirmed by arteriogram at [facility] October 2016. - Seizure disorder Noted significant JOE/MCA disease bilaterally from previous imaging of brain Keppra 1500 mg switch to by PEG twice a day for seizures Continue ASA 324 mg daily, atorvastatin 40 mg by mouth daily Continue bromocriptine 2.5 mg by mouth BID EEG-noted sharp spikes Neurology is following at a distance-Dr. Flores Has been evaluated tertiary care center [facility] and felt to not be a candidate for further intervention. - COPD - Acute respiratory failure - currently on T piece. - Multilobar pneumonia Status post tracheostomy on 11/24/2016. Pulmonary following. Continue Zosyn 3.375 g every 6 hours DuoNeb when necessary - Nutrition - continue Jevity 1.5 through PEG tube. Full code. SCDs. Famotidine twice a day 12/26/2016 : No acute change in management. Lucy Clayton DO December 26, 2016 1:57 pm
[2016-12-26] MEDS: MORPHINE SULFATE 4 MG/ML INJ IV PRN (17:19)
[2016-12-26] MEDS: CHLORHEXIDINE GLUCONATE 2 % 1 PACK (2 CLOTHS) TOP SCH (21:50)
[2016-12-27] VITALS (14 sets, daily range): BP systolic 91–145; BP diastolic 51–106; PULSE 85–113; RESP 13–23; TEMP 97.3–98.2; O2SAT 92–99
[2016-12-27] MEDS: INSULIN NovoLIN REGULAR SUPPLEMENTAL SCALE SQ SCH ×4 (02:00→21:28)
[2016-12-27] MEDS: PIPERACIL-TAZO 3.375 GM PREMIX 50 ML IV SCH ×4 (04:20→21:29)
[2016-12-27] MEDS: RESP: ALBUTEROL 2.5 MG/IPRATROPIUM 0.5 MG NEB (SCH) NEB ×4 (08:36→20:29)
[2016-12-27] MEDS: SODIUM CHLORIDE 0.9% FLUSH 10 ML FLUSH IV FLUSH SCH ×2 (09:00→21:27)
[2016-12-27] MEDS: LACTULOSE SYRUP 20 GM/30 ML CUP PO SCH ×2 (10:04→21:00)
[2016-12-27] MEDS: levETIRAcetam 500 MG/5 ML UDC NG SCH ×2 (10:04→21:27)
[2016-12-27] MEDS: DOCUSATE SODIUM 100 MG/10 ML UDC PO SCH ×2 (10:04→21:00)
[2016-12-27] MEDS: FAMOTIDINE 20 MG TAB NG SCH ×2 (10:05→21:29)
[2016-12-27] MEDS: SENNOSIDES SYRUP 8.8 MG/5 ML CUP PO SCH ×2 (10:05→21:00)
[2016-12-27] MEDS: ATORVASTATIN 40 MG TAB PO SCH (10:05)
[2016-12-27] MEDS: POLYETHYLENE GLYCOL 17 GM PKG PO SCH (10:05)
[2016-12-27] MEDS: FOLIC ACID 1 MG TAB OG-TUBE SCH (10:05)
[2016-12-27] MEDS: BROMOCRIPTINE MESYLATE 2.5 MG TAB OG-TUBE SCH ×2 (10:05→21:29)
[2016-12-27] MEDS: ASPIRIN 81 MG CHEW TAB NG SCH (10:05)
--- NOTE | 2016-12-27 15:26 | HHI.PR ---
Subjective Remarks In bed, she is sleepy. Doesn't appear in acute distress. Opens eyes, doesn't follow commands. No change. VSS. Objective Vitals Vital Signs Date Time Temp Pulse Resp B/P Pulse Ox O2 Delivery O2 Flow Rate FiO2 12/27/16 14:00 93 12/27/16 12:00 97 12/27/16 10:00 98 12/27/16 08:38 98 T-piece 6.00 35 12/27/16 08:00 85 12/27/16 08:00 94 Trach Collar 28 Humidified 12/27/16 06:00 100 12/27/16 04:00 97.3 86 17 91/52 92 12/27/16 04:00 86 12/27/16 02:00 96 12/27/16 00:00 93 12/27/16 00:00 97.5 93 13 96/51 96 12/26/16 22:00 91 12/26/16 21:26 97 Trach Collar 35 12/26/16 20:00 98.1 92 21 113/64 96 12/26/16 20:00 92 12/26/16 19:00 96 Trach Collar 28 Humidified 12/26/16 18:00 91 12/26/16 17:24 18 12/26/16 16:00 98.9 125 21 142/68 94 12/26/16 16:00 98 I/O 12/26/16 12/26/16 12/26/16 12/27/16 12/27/16 12/27/16 07:00 15:00 23:00 07:00 15:00 23:00 Intake Total 487 ml 962 ml 301 ml 475 ml Output Total 425 ml 670 ml 250 ml 250 ml Balance 62 ml 292 ml 51 ml 225 ml IV Total 152 ml 225 ml 54 ml 130 ml Tube Feeding 335 ml 737 ml 247 ml 345 ml Output Urine Total 425 ml 670 ml 250 ml 250 ml # Bowel Movements 1 Result Diagram: 12/25/16 0532 12/25/16 0532 Imaging Last Impressions Chest X-Ray 12/25/16 0600 Signed Impressions: Service Date/Time: Sunday, December 25, 2016 04:09 - CONCLUSION: 1. Questionable early changes of edema. Dependent atelectasis. Tracheostomy unchanged. Samuel Simons MD Brain MRI 12/17/16 0000 Signed Impressions: Service Date/Time: Saturday, December 17, 2016 21:37 - CONCLUSION: Evolving bifrontal signal changes as described Nghia Pacheco MD Abdomen X-Ray 11/26/16 0000 Signed Impressions: Service Date/Time: Saturday, November 26, 2016 10:18 - CONCLUSION: Distended stomach otherwise nonspecific abdomen. Jackson Murillo MD Objective Remarks GENERAL: Alert, sleepy, eyes open, does not respond to verbal commands. Currently on T piece. SKIN: Warm and dry. HEAD: Normocephalic. EYES: No scleral icterus. No injection or drainage. NECK: Supple, trachea midline. No JVD or lymphadenopathy. CARDIOVASCULAR: Regular rhythm, tachycardic without murmurs, gallops, or rubs. RESPIRATORY: Breath sounds equal bilaterally. No accessory muscle use. GASTROINTESTINAL: Abdomen soft, obese, non-tender, nondistended. MUSCULOSKELETAL: No cyanosis, or edema. Procedures 11/24/2016 Percutaneous tracheostomy. 11/18/2016 Moderate encephalopathy with suggestion of left temporal region cortical irritability. No active seizures. Clinical correlation. 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 Rivas is a 66-year-old female with a history of stroke who was admitted to the [facility] on 11/04/2016 due to difficulty getting her thoughts together. She was found to have multifocal nonhemorrhagic infarctions in the frontal and parietal regions. She was initially awake and following commands with weakness of RLE and some aphasia. She was transferred to [facility] where he had an cerebral angiogram consistent with moyamoya. There were plans to perform extracranial/intracranial bypass. However she had a seizure and ended up being intubated for status either 11/09 or 11/10.. She was found to have a new right frontal infarct area and she was started on Dilantin and Keppra and it was felt that she would not be a candidate for intervention. She has been intubated 9-10 days and apparently she has been tolerating C Pap trials to some extent but mental status prevents extubation. Treating team was discussing with family trach/PEG. Apparently family requested transfer back to [place] because they live locally here and wanted her closer to home. Patient remained under critical care medicine until 12/24/2016. - Bilateral frontal CVA - Moyamoya - confirmed by arteriogram at [facility] October 2016. - Seizure disorder Noted significant JOE/MCA disease bilaterally from previous imaging of brain Keppra 1500 mg switch to by PEG twice a day for seizures Continue ASA 324 mg daily, atorvastatin 40 mg by mouth daily Continue bromocriptine 2.5 mg by mouth BID EEG-noted sharp spikes Neurology is following at a distance-Dr. Flores Has been evaluated tertiary care center [place] and felt to not be a candidate for further intervention. - COPD - Acute respiratory failure - currently on T piece. - Multilobar pneumonia Status post tracheostomy on 11/24/2016. Pulmonary following. Continue Zosyn 3.375 g every 6 hours DuoNeb when necessary - Nutrition - continue Jevity 1.5 through PEG tube. Full code. SCDs. Famotidine twice a day 12/26/2016 : No acute change in management. 12/27/16: continue same management . Will monitor patient in ICU. Watch pulm status, suction as need. Case management consult for DC plan. Angela Trejo MD December 27, 2016 15:26
--- NOTE | 2016-12-27 17:42 | HHI.HCPN ---
Reason for visit a. To assist with evaluation and management of symptoms including: encephalopathy, seizure, dyspnea, weakness, constipation. b. To assist medical decision maker(s) with: better understanding of current medical conditions; weighing benefits/burdens of medical treatment options; making medical treatment decisions. . (Grecia Ernst) Subjective/Interval History Seen to follow up on comfort, neurological status. Seen today with no family in the room. Her eyes are open and she looks at examiner, tracks to the left, but has difficulty tracking to the right. Interacts by blinking more consistently to noxious stimuli. 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 She remains on full support including tube feeding she is tolerating well. She remains mildly anemic by current lab studies with hemoglobin 9.2 and hematocrit 29.6 with stable chemistries total albumin has shown minimal improvement to 2.4 from a low of 1.9. Sputum cultures done 12/25 shows staph aureus and pseudomonas aeruginosa final sensitivity pending. Chest x-ray shows no acute disease. She shows minimal response to painful stimuli opens her eyes spontaneously but not to command. Blinks to visual threat. She is pending placement and has so far been declined by all queried facilities. . Family/friend interactions Spoke with daughter, Maria Del Carmen, to update and discussed pertinent physical findings. She states Dr. Flores has not contacted her to update her regarding the findings most recent MRI. These were discussed with her as well as Dr. Flores's impressions from his note. She states that her mother does have a significant other, Patrick, that she encourages visitation as he provides her additional stimulation. The goals remain aggressive as sister, Marcelo, is hopeful for some recovery. Per the sister Maria Del Carmen, she remains a full code. ( Grecia Ernst) Advance Directives Living Will: Never completed Health Care Surrogate: Never completed Durable Power of Ultrasound Specialist: Never completed (Grecia Ernst) Advance Directive Specifics Health Care Surrogate(s): No known written advance directives. Patient currently incapacitated to make her healthcare decisions. According to [place] statutes health care proxy decision-making falls to the majority of adult children. Patient has 3 children. . (Sujata,Grecia E. AUTOMOTIVE TECHNOLOGY INSTRUCTOR) Objective Vital Signs Date Time Temp Pulse Resp B/P Pulse Ox O2 Delivery O2 Flow Rate FiO2 12/27/16 16:00 98.0 107 17 137/68 95 12/27/16 16:00 96 12/27/16 14:00 93 12/27/16 12:00 97 12/27/16 12:00 98.2 113 18 145/106 97 12/27/16 10:00 98 12/27/16 08:38 98 T-piece 6.00 35 12/27/16 08:00 85 12/27/16 08:00 97.9 104 15 113/86 96 12/27/16 08:00 94 Trach Collar 28 Humidified 12/27/16 06:00 100 12/27/16 04:00 97.3 86 17 91/52 92 12/27/16 04:00 86 12/27/16 02:00 96 12/27/16 00:00 93 12/27/16 00:00 97.5 93 13 96/51 96 12/26/16 22:00 91 12/26/16 21:26 97 Trach Collar 35 12/26/16 20:00 98.1 92 21 113/64 96 12/26/16 20:00 92 12/26/16 19:00 96 Trach Collar 28 Humidified 12/26/16 18:00 91 12/26/16 17:24 18 Intake & Output 12/27/16 12/27/16 06:59 18:59 Intake Total 776 ml 667 ml Output Total 500 ml 350 ml Balance 276 ml 317 ml IV Total 184 ml 226 ml Tube Feeding 592 ml 441 ml Output Urine Total 500 ml 350 ml Physical Exam CONSTITUTIONAL/GENERAL: Awake, alert, eyes open, on T piece TUBES/LINES/DRAINS: PIV LALI extremity, Tracheostomy, PEG, Brown, SCDs, multipodus boots. CARDIOVASCULAR: Regular rate and rhythm, S1, S2 no murmur or gallop RESPIRATORY/CHEST: trach midline. Symmetric, unlabored respirations via trach to 35% fio2 T piece . Clear to auscultation. GASTROINTESTINAL: Abdomen soft, nondistended. Bowel sounds active. +PEG LUQ site asymptomatic, +TF infusing GENITOURINARY: Without palpable bladder distension. Brown catheter in place- clear yellow urine. NEUROLOGICAL: Eyes open, tracking examiner. Blinks eyes to note discomfort to noxious stimuli as requested by examiner consistently in all 4 extremities. PSYCHIATRIC: no signs of anxiety . (Grecia Ernst) Diagnostic Tests Laboratory Laboratory Tests Test 12/25/16 05:32 White Blood Count 8.8 TH/MM3 (4.0-11.0) Red Blood Count 3.69 MIL/MM3 (4.00-5.30) Hemoglobin 9.2 GM/DL (11.6-15.3) Hematocrit 29.6 % (35.0-46.0) Mean Corpuscular Volume 80.3 FL (80.0-100.0) Mean Corpuscular Hemoglobin 24.9 PG (27.0-34.0) Mean Corpuscular Hemoglobin 31.0 % Concent (32.0-36.0) Red Cell Distribution Width 16.8 % (11.6-17.2) Platelet Count 343 TH/MM3 (150-450) Mean Platelet Volume 8.9 FL (7.0-11.0) Sodium Level 144 MEQ/L (136-145) Potassium Level 3.5 MEQ/L (3.5-5.1) Chloride Level 108 MEQ/L (98-107) Carbon Dioxide Level 27.8 MEQ/L (21.0-32.0) Anion Gap 8 MEQ/L (5-15) Blood Urea Nitrogen 21 MG/DL (7-18) Creatinine 0.44 MG/DL (0.50-1.00) Estimat Glomerular Filtration 144 ML/MIN Rate (>89) Random Glucose 127 MG/DL (74-106) Calcium Level 8.8 MG/DL (8.5-10.1) Phosphorus Level 3.4 MG/DL (2.5-4.9) Magnesium Level 2.3 MG/DL (1.5-2.5) (Grecia Ernst) Result Diagram: 12/25/16 0532 12/25/16 0532 Microbiology Microbiology Date/Time Procedure Status Source Growth 12/25/16 04:55 Gram Stain - Final Resulted Sputum Oral Tracheal Aspirate 12/25/16 04:55 Sputum Culture - Preliminary Resulted Staphylococcus Aureus Pseudomonas Aeruginosa Imaging Last Impressions Chest X-Ray 12/25/16 0600 Signed Impressions: Service Date/Time: Sunday, December 25, 2016 04:09 - CONCLUSION: 1. Questionable early changes of edema. Dependent atelectasis. Tracheostomy unchanged. Samuel Simons MD Brain MRI 12/17/16 0000 Signed Impressions: Service Date/Time: Saturday, December 17, 2016 21:37 - CONCLUSION: Evolving bifrontal signal changes as described Nghia Pacheco MD Abdomen X-Ray 11/26/16 0000 Signed Impressions: Service Date/Time: Saturday, November 26, 2016 10:18 - CONCLUSION: Distended stomach otherwise nonspecific abdomen. K. David Murillo MD Procedures 11/22 - PEG placement 11/30 - tracheostomy (Grecia Ernst) Assessment and Plan Disease Oriented Problem List: (1) CVA (cerebral vascular accident) (2) Moyamoya disease (3) Seizure Comment: On Keppra . (4) Generalized weakness Symptom Scale: (1) Seizure 0-10 Scale: 0 (2) Generalized weakness 0-10 Scale: Unable to quantify (3) Dyspnea 0-10 Scale: Unable to quantify Comment: On mechanical ventilation (4) Constipation 0-10 Scale: Unable to quantify (5) Encephalopathy 0-10 Scale: Unable to quantify Pertinent Non-Medical Issues Psychosocial: Single. Has 2 daughters and one son. Spiritual: unknown. Legal: Ethical issues impacting care: No known concerns at this time. . Important Contacts * Maria Del Carmen Rivas, daughter: [phone] * Marcelo Rvias, daughter: [phone] * Dwight Rivas, son: [phone] . Prognosis MRI/EEG reviewed by neurology, prognosis felt to be poor, infarct noted to be huge. Repeat MRI done 12/[address] Flores and he feels that she may regain some ability to speak but does note that the infarct was a huge right frontal CVA and increased size of the left frontal CVA. EEG showed some left "sharps" and his recommendation was to continue Keppra. Prognosis remains poor in light of the most current studies. Code Status: Full Code Plan * Patient is incapacitated to make healthcare decisions. No known written advanced directives. According to [place] Statutes, health care proxy decision making falls to majority of adult children. Patient has 2 daughters (Maria Del Carmen, Marcelo) and 1 son (Dwight). * CODE STATUSFULL CODE * GOALS: Currently remain aggressive. There are differing opinions between the 2 daughters regarding DNR status and repeat neurology evaluation has been requested and completed. MRI showed an increasing size of the left frontal CVA which is felt to indicate some damage to the language area, however Dr. Flores states that he feels eventually she may speak and interact more. As the daughter Marcelo, is struggling with the DNR option, it was the opinion of the other daughter, Maria Del Carmen, that they would continue full CODE STATUS at this time until the family could reach a consensus. Per my conversation with Maria Del Carmen , 12/27/16 they would continue aggressive measures at this time. SYMPTOMS: * Seizure: hx seizures 2/2 CVA; EEG showed "left sharps" and was continued per neurology. She remains on Keppra with no seizures. * Weakness: due to prolonged hospital course, bilateral infarcts. Not regaining any purposeful or spontaneous movements as of yet. PT continues to follow working with bed mobility requiring maximum assistance. Placement is pending. She has thus far been declined by all queried facilities. Case management following. * Dyspnea: Off sedation. tolerating T Piece. Sputum culture shows Staphylococcus aureus and pseudomonas aeruginosa unchanged since sputum culture done 12/15 showing the same 2 organisms. Final sensitivity is pending. No signs of tachypnea, or dyspnea. She remains at risk for complications due to severe mitral regurgitation, tracheostomy and immobility. * Encephalopathy: Improving alertness and response at this time. Dr. Flores following. Continuing to update family to facilitate decision-making. * Constipation: Resolved with regular bowel movements. In summary the patient remains encephalopathic with a poor prognosis. Neurology is of the opinion that the patient may possibly regain some function in the future however does note the huge size of the infarct. Family members continue to struggle with the patient's prognosis and resuscitation status. We will continue conversations to assist their understanding of the patient's function to facilitate their decision-making. Placement continues to be difficult due to lack of a payor source. Case management is following. Palliative care will continue to follow during hospital course as condition evolves, to assist patient/decision-maker with understanding of medical conditions, weighing benefits/burdens of treatment options, for clarification of goals of treatment. Additionally will assist with any symptoms of palliative concern. . (Grecia Ernst) Attestation To help prompt me to consider important information that might be impacting today's encounter and assessment, information from prior notes written by myself or my colleagues may have been "brought forward" into today's note. My signature on this note, however, is an attestation that I personally performed the exam, history, and/or decision-making noted today, and, unless otherwise indicated, the interactions with patient, family, and staff as well as the review of records all occurred today. I also attest that the listed assessment and stated plan reflect my best clinical judgment today based on the combination of historical information, prior notes, and today's exam/ interactions. When time spent is documented, it refers only to time spent today by the signer, or if indicated, combined time spent today by collaborating physician/nurse practitioner. (Grecia Ernst) Collaborating MD Comments . Chart reviewed. Case discussed with palliative care AUTOMOTIVE TECHNOLOGY INSTRUCTOR. I have reviewed above AUTOMOTIVE TECHNOLOGY INSTRUCTOR note and I concur. . (Stephen Lombardo MD) Grecia Ernst December 27, 2016 17:42 Stephen Lombardo MD January 04, 2017 12:41
--- NOTE | 2016-12-27 18:55 | HHI.PR ---
Subjective Remarks 66 YOWF with Rf, s/p trach H/O CVA,Arango Arango disease On trach collar Awake, does't follow commands No fever No sig trach secretions. Objective Vital Signs Vital Signs Date Time Temp Pulse Resp B/P Pulse Ox O2 Delivery O2 Flow Rate FiO2 12/27/16 18:00 94 12/27/16 16:00 98.0 107 17 137/68 95 12/27/16 16:00 96 12/27/16 14:00 93 12/27/16 12:00 97 12/27/16 12:00 98.2 113 18 145/106 97 12/27/16 10:00 98 12/27/16 08:38 98 T-piece 6.00 35 12/27/16 08:00 85 12/27/16 08:00 97.9 104 15 113/86 96 12/27/16 08:00 94 Trach Collar 28 Humidified 12/27/16 06:00 100 12/27/16 04:00 97.3 86 17 91/52 92 12/27/16 04:00 86 12/27/16 02:00 96 12/27/16 00:00 93 12/27/16 00:00 97.5 93 13 96/51 96 12/26/16 22:00 91 12/26/16 21:26 97 Trach Collar 35 12/26/16 20:00 98.1 92 21 113/64 96 12/26/16 20:00 92 12/26/16 19:00 96 Trach Collar 28 Humidified I/O 12/26/16 12/26/16 12/26/16 12/27/16 12/27/16 12/27/16 07:00 15:00 23:00 07:00 15:00 23:00 Intake Total 487 ml 962 ml 301 ml 475 ml 667 ml Output Total 425 ml 670 ml 250 ml 250 ml 350 ml Balance 62 ml 292 ml 51 ml 225 ml 317 ml IV Total 152 ml 225 ml 54 ml 130 ml 226 ml Tube Feeding 335 ml 737 ml 247 ml 345 ml 441 ml Output Urine Total 425 ml 670 ml 250 ml 250 ml 350 ml # Bowel Movements 1 Result Diagram: 12/25/16 0532 12/25/16 0532 Objective Remarks GENERAL: MBMN WF, on Trach collar SKIN: Warm and dry. HEAD: Normocephalic. EYES: No scleral icterus. No injection or drainage. NECK: Supple, trachea midline. No JVD or lymphadenopathy. has trach CARDIOVASCULAR: Regular rate and rhythm without murmurs, gallops, or rubs. RESPIRATORY: Breath sounds equal bilaterally. No accessory muscle use. GASTROINTESTINAL: Abdomen soft, non-tender, nondistended. has PEG MUSCULOSKELETAL: No cyanosis, or edema. BACK: Nontender without obvious deformity. No CVA tenderness. A/P Assessment and Plan RF, s/P Trach CVA Arango arango disease CAD COPD PLAN: Aerosol nebs Cont trach collar supplement 02 Cont TF Vernon Marx MD December 27, 2016 18:54
[2016-12-27] MEDS: CHLORHEXIDINE 0.12% (ORAL KIT) 15 ML CUP MT SCH (21:26)
[2016-12-27] MEDS: CHLORHEXIDINE GLUCONATE 2 % 1 PACK (2 CLOTHS) TOP SCH (21:30)
[2016-12-28] VITALS (16 sets, daily range): BP systolic 103–147; BP diastolic 58–85; PULSE 91–108; RESP 15–29; TEMP 98–99; O2SAT 89–99
[2016-12-28] MEDS: INSULIN NovoLIN REGULAR SUPPLEMENTAL SCALE SQ SCH ×4 (02:00→20:00)
[2016-12-28] MEDS: RESP: ALBUTEROL 2.5 MG/3 ML NEB (PRN) INH (03:54)
[2016-12-28] MEDS: PIPERACIL-TAZO 3.375 GM PREMIX 50 ML IV SCH ×4 (04:21→21:52)
--- NOTE | 2016-12-28 07:08 | HHI.PR ---
Subjective Remarks Patient is in bed. She is nonverbal. Eyes open , appears tracking. She is calm, appears in nad. No events overnight. VSS. Objective Vitals Vital Signs Date Time Temp Pulse Resp B/P Pulse Ox O2 Delivery O2 Flow Rate FiO2 12/28/16 04:00 96 12/28/16 04:00 98.0 96 21 120/75 94 12/28/16 02:00 104 12/28/16 00:00 98 12/28/16 00:00 99.0 98 22 126/75 95 12/27/16 22:00 99 12/27/16 20:29 99 T-piece 6.00 28 12/27/16 20:00 104 12/27/16 20:00 97 T-Piece 28 Humidified 12/27/16 20:00 97.9 104 23 142/77 96 12/27/16 18:00 94 12/27/16 16:00 98.0 107 17 137/68 95 12/27/16 16:00 96 12/27/16 14:00 93 12/27/16 12:00 97 12/27/16 12:00 98.2 113 18 145/106 97 12/27/16 10:00 98 12/27/16 08:38 98 T-piece 6.00 35 12/27/16 08:00 85 12/27/16 08:00 97.9 104 15 113/86 96 12/27/16 08:00 94 Trach Collar 28 Humidified I/O 12/27/16 12/27/16 12/27/16 12/28/16 12/28/16 12/28/16 07:00 15:00 23:00 07:00 15:00 23:00 Intake Total 475 ml 667 ml 441 ml 290 ml Output Total 250 ml 350 ml 500 ml 300 ml Balance 225 ml 317 ml -59 ml -10 ml IV Total 130 ml 226 ml 182 ml 67 ml Tube Feeding 345 ml 441 ml 259 ml 223 ml Output Urine Total 250 ml 350 ml 500 ml 300 ml # Bowel Movements 1 Result Diagram: 12/25/16 0532 12/25/16 0532 Imaging Last Impressions Chest X-Ray 12/25/16 0600 Signed Impressions: Service Date/Time: Sunday, December 25, 2016 04:09 - CONCLUSION: 1. Questionable early changes of edema. Dependent atelectasis. Tracheostomy unchanged. Samuel Simons MD Brain MRI 12/17/16 0000 Signed Impressions: Service Date/Time: Saturday, December 17, 2016 21:37 - CONCLUSION: Evolving bifrontal signal changes as described Nghia Pacheco MD Abdomen X-Ray 11/26/16 0000 Signed Impressions: Service Date/Time: Saturday, November 26, 2016 10:18 - CONCLUSION: Distended stomach otherwise nonspecific abdomen. K. David Murillo MD Objective Remarks GENERAL: Alert, sleepy, eyes open, does not respond to verbal commands. Currently on T piece. SKIN: Warm and dry. HEAD: Normocephalic. EYES: No scleral icterus. No injection or drainage. NECK: Supple, trachea midline. No JVD or lymphadenopathy. CARDIOVASCULAR: Regular rhythm, tachycardic without murmurs, gallops, or rubs. RESPIRATORY: Breath sounds equal bilaterally. No accessory muscle use. GASTROINTESTINAL: Abdomen soft, obese, non-tender, nondistended. MUSCULOSKELETAL: No cyanosis, or edema. Procedures 11/24/2016 Percutaneous tracheostomy. 11/18/2016 Moderate encephalopathy with suggestion of left temporal region cortical irritability. No active seizures. Clinical correlation. 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 Rivas is a 66-year-old female with a history of stroke who was admitted to the [facility] on 11/04/2016 due to difficulty getting her thoughts together. She was found to have multifocal nonhemorrhagic infarctions in the frontal and parietal regions. She was initially awake and following commands with weakness of RLE and some aphasia. She was transferred to [facility] where he had an cerebral angiogram consistent with moyamoya. There were plans to perform extracranial/intracranial bypass. However she had a seizure and ended up being intubated for status either 11/09 or 11/10.. She was found to have a new right frontal infarct area and she was started on Dilantin and Keppra and it was felt that she would not be a candidate for intervention. She has been intubated 9-10 days and apparently she has been tolerating C Pap trials to some extent but mental status prevents extubation. Treating team was discussing with family trach/PEG. Apparently family requested transfer back to [place] because they live locally here and wanted her closer to home. Patient remained under critical care medicine until 12/24/2016. - Bilateral frontal CVA - Moyamoya - confirmed by arteriogram at [facility] October 2016. - Seizure disorder Noted significant JOE/MCA disease bilaterally from previous imaging of brain Keppra 1500 mg switch to by PEG twice a day for seizures Continue ASA 324 mg daily, atorvastatin 40 mg by mouth daily Continue bromocriptine 2.5 mg by mouth BID EEG-noted sharp spikes Neurology is following at a distance-Dr. Flores Has been evaluated tertiary care center [place] and felt to not be a candidate for further intervention. - COPD - Acute respiratory failure - currently on T piece. - Multilobar pneumonia Status post tracheostomy on 11/24/2016. Pulmonary following. Continue Zosyn 3.375 g every 6 hours DuoNeb when necessary - Nutrition - continue Jevity 1.5 through PEG tube. Full code. SCDs. Famotidine twice a day 12/26/2016 : No acute change in management. 12/27/16: continue same management . Will monitor patient in ICU. Watch pulm status, suction as need. Case management consult for DC plan. 12/28/16: VSS. Patient at baseline. no change in management. Fairly stable, can transfer to med/surg floor, need close nursing obs. Angela Trejo MD December 28, 2016 07:08
[2016-12-28] MEDS: CHLORHEXIDINE 0.12% (ORAL KIT) 15 ML CUP MT SCH ×2 (08:00→20:32)
[2016-12-28] MEDS: RESP: ALBUTEROL 2.5 MG/IPRATROPIUM 0.5 MG NEB (SCH) NEB ×2 (08:19→12:04)
[2016-12-28] MEDS: levETIRAcetam 500 MG/5 ML UDC NG SCH ×2 (08:53→21:51)
[2016-12-28] MEDS: FOLIC ACID 1 MG TAB OG-TUBE SCH (08:53)
[2016-12-28] MEDS: ATORVASTATIN 40 MG TAB PO SCH (08:54)
[2016-12-28] MEDS: BROMOCRIPTINE MESYLATE 2.5 MG TAB OG-TUBE SCH ×2 (08:54→21:51)
[2016-12-28] MEDS: FAMOTIDINE 20 MG TAB NG SCH ×2 (08:54→21:51)
[2016-12-28] MEDS: ASPIRIN 81 MG CHEW TAB NG SCH (08:55)
[2016-12-28] MEDS: SODIUM CHLORIDE 0.9% FLUSH 10 ML FLUSH IV FLUSH SCH ×2 (08:55→20:32)
[2016-12-28] MEDS: POLYETHYLENE GLYCOL 17 GM PKG PO SCH (08:56)
[2016-12-28] MEDS: DOCUSATE SODIUM 100 MG/10 ML UDC PO SCH ×2 (08:56→21:51)
[2016-12-28] MEDS: LACTULOSE SYRUP 20 GM/30 ML CUP PO SCH ×2 (08:56→21:51)
[2016-12-28] MEDS: SENNOSIDES SYRUP 8.8 MG/5 ML CUP PO SCH ×2 (08:56→21:51)
--- NOTE | 2016-12-28 18:56 | HHI.PR ---
Subjective Remarks 66 YOWF with Rf, s/p trach H/O CVA,Arango Arango disease On trach collar Awake, does't follow commands No fever No significant trach secretions. Objective Vital Signs Vital Signs Date Time Temp Pulse Resp B/P Pulse Ox O2 Delivery O2 Flow Rate FiO2 12/28/16 18:00 91 12/28/16 16:00 108 12/28/16 16:00 98.3 103 22 127/79 94 12/28/16 14:00 93 12/28/16 12:00 98.5 104 20 137/79 95 12/28/16 12:00 106 12/28/16 10:00 96 12/28/16 08:19 99 T-piece 6.00 28 12/28/16 08:00 98 12/28/16 08:00 98.9 98 23 120/62 95 12/28/16 07:00 97 T-Piece 28 Humidified 12/28/16 06:00 96 12/28/16 04:00 96 12/28/16 04:00 98.0 96 21 120/75 94 12/28/16 02:00 104 12/28/16 00:00 98 12/28/16 00:00 99.0 98 22 126/75 95 12/27/16 22:00 99 12/27/16 20:29 99 T-piece 6.00 28 12/27/16 20:00 104 12/27/16 20:00 97 T-Piece 28 Humidified 12/27/16 20:00 97.9 104 23 142/77 96 I/O 12/27/16 12/27/16 12/27/16 12/28/16 12/28/16 12/28/16 06:59 14:59 22:59 06:59 14:59 22:59 Intake Total 475 ml 667 ml 441 ml 290 ml 588 ml Output Total 250 ml 350 ml 500 ml 300 ml 400 ml Balance 225 ml 317 ml -59 ml -10 ml 188 ml IV Total 130 ml 226 ml 182 ml 67 ml 62 ml Tube Feeding 345 ml 441 ml 259 ml 223 ml 466 ml Other 60 ml Output Urine Total 250 ml 350 ml 500 ml 300 ml 400 ml # Bowel Movements 1 1 Result Diagram: 12/25/16 0532 12/25/16 0532 Objective Remarks GENERAL: MBMN WF, on Trach collar SKIN: Warm and dry. HEAD: Normocephalic. EYES: No scleral icterus. No injection or drainage. NECK: Supple, trachea midline. No JVD or lymphadenopathy. has trach CARDIOVASCULAR: Regular rate and rhythm without murmurs, gallops, or rubs. RESPIRATORY: Breath sounds equal bilaterally. No accessory muscle use. GASTROINTESTINAL: Abdomen soft, non-tender, nondistended. has PEG MUSCULOSKELETAL: No cyanosis, or edema. BACK: Nontender without obvious deformity. No CVA tenderness. A/P Assessment and Plan RF, S/P Trach CVA Arango arango disease CAD COPD PLAN: Aerosol nebs Cont trach collar supplement 02 Cont TF Vernon Marx MD December 28, 2016 18:56
[2016-12-29] VITALS (14 sets, daily range): BP systolic 98–160; BP diastolic 54–87; PULSE 86–99; RESP 14–23; TEMP 97.6–98.6; O2SAT 88–100
[2016-12-29] MEDS: INSULIN NovoLIN REGULAR SUPPLEMENTAL SCALE SQ SCH ×4 (02:26→20:49)
[2016-12-29] MEDS: CHLORHEXIDINE GLUCONATE 2 % 1 PACK (2 CLOTHS) TOP SCH (03:58)
[2016-12-29] MEDS: PIPERACIL-TAZO 3.375 GM PREMIX 50 ML IV SCH ×4 (03:58→20:45)
--- NOTE | 2016-12-29 08:13 | HHI.PR ---
Subjective Remarks In bed, eyes open appears tracking at times. opens eyes when calling her name. No events overnight. She is noted however with some secretions. Needs frequent suctioning. No n/v/d/c. Satting well on T piece. Objective Vitals Vital Signs Date Time Temp Pulse Resp B/P Pulse Ox O2 Delivery O2 Flow Rate FiO2 12/29/16 08:12 100 T-piece 6.00 28 12/29/16 06:00 93 12/29/16 04:00 98.0 92 18 110/63 96 12/29/16 04:00 92 12/29/16 03:00 95 19 115/68 96 12/29/16 02:00 92 12/29/16 02:00 92 19 129/65 95 12/29/16 01:00 86 14 98/54 88 12/29/16 00:00 98.2 95 20 129/74 96 12/29/16 00:00 95 12/28/16 23:00 95 17 127/73 96 12/28/16 22:00 96 29 120/82 91 12/28/16 22:00 96 Trach Collar 6.00 28 12/28/16 22:00 96 12/28/16 21:00 97 19 123/85 92 12/28/16 20:00 99 12/28/16 20:00 97 T-Piece 28 Humidified 12/28/16 20:00 98.3 99 20 147/78 97 12/28/16 19:00 91 15 103/58 89 12/28/16 18:00 91 12/28/16 16:00 108 12/28/16 16:00 98.3 103 22 127/79 94 12/28/16 14:00 93 12/28/16 12:00 98.5 104 20 137/79 95 12/28/16 12:00 106 12/28/16 10:00 96 12/28/16 08:19 99 T-piece 6.00 28 I/O 12/28/16 12/28/16 12/28/16 12/29/16 12/29/16 12/29/16 07:00 15:00 23:00 07:00 15:00 23:00 Intake Total 290 ml 588 ml 461 ml 632 ml Output Total 300 ml 400 ml 300 ml 450 ml Balance -10 ml 188 ml 161 ml 182 ml IV Total 67 ml 62 ml 67 ml 173 ml Tube Feeding 223 ml 466 ml 334 ml 399 ml Other 60 ml 60 ml 60 ml Output Urine Total 300 ml 400 ml 300 ml 450 ml Tube Feeding Residual Discard 0 ml # Bowel Movements 1 1 2 Result Diagram: 12/25/16 0532 12/25/16 0532 Imaging Last Impressions Chest X-Ray 12/25/16 0600 Signed Impressions: Service Date/Time: Sunday, December 25, 2016 04:09 - CONCLUSION: 1. Questionable early changes of edema. Dependent atelectasis. Tracheostomy unchanged. Samuel Simons MD Brain MRI 12/17/16 0000 Signed Impressions: Service Date/Time: Saturday, December 17, 2016 21:37 - CONCLUSION: Evolving bifrontal signal changes as described Nghia Pacheco MD Abdomen X-Ray 11/26/16 0000 Signed Impressions: Service Date/Time: Saturday, November 26, 2016 10:18 - CONCLUSION: Distended stomach otherwise nonspecific abdomen. K. David Murillo MD Objective Remarks GENERAL: Alert, sleepy, eyes open, does not respond to verbal commands. Currently on T piece. SKIN: Warm and dry. HEAD: Normocephalic. EYES: No scleral icterus. No injection or drainage. NECK: Supple, trachea midline. No JVD or lymphadenopathy. CARDIOVASCULAR: Regular rhythm, tachycardic without murmurs, gallops, or rubs. RESPIRATORY: Breath sounds equal bilaterally. No accessory muscle use. GASTROINTESTINAL: Abdomen soft, obese, non-tender, nondistended. MUSCULOSKELETAL: No cyanosis, or edema. Procedures 11/24/2016 Percutaneous tracheostomy. 11/18/2016 Moderate encephalopathy with suggestion of left temporal region cortical irritability. No active seizures. Clinical correlation. 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 Rivas is a 66-year-old female with a history of stroke who was admitted to the [facility] on 11/04/2016 due to difficulty getting her thoughts together. She was found to have multifocal nonhemorrhagic infarctions in the frontal and parietal regions. She was initially awake and following commands with weakness of RLE and some aphasia. She was transferred to [facility] where he had an cerebral angiogram consistent with moyamoya. There were plans to perform extracranial/intracranial bypass. However she had a seizure and ended up being intubated for status either 11/09 or 11/10.. She was found to have a new right frontal infarct area and she was started on Dilantin and Keppra and it was felt that she would not be a candidate for intervention. She has been intubated 9-10 days and apparently she has been tolerating C Pap trials to some extent but mental status prevents extubation. Treating team was discussing with family trach/PEG. Apparently family requested transfer back to [place] because they live locally here and wanted her closer to home. Patient remained under critical care medicine until 12/24/2016. - Bilateral frontal CVA - Moyamoya - confirmed by arteriogram at [facility] October 2016. - Seizure disorder Noted significant JOE/MCA disease bilaterally from previous imaging of brain Keppra 1500 mg switch to by PEG twice a day for seizures Continue ASA 324 mg daily, atorvastatin 40 mg by mouth daily Continue bromocriptine 2.5 mg by mouth BID EEG-noted sharp spikes Neurology is following at a distance-Dr. Flores Has been evaluated tertiary care center [facility] and felt to not be a candidate for further intervention. - COPD - Acute respiratory failure - currently on T piece. - Multilobar pneumonia Status post tracheostomy on 11/24/2016. Pulmonary following. Continue Zosyn 3.375 g every 6 hours DuoNeb when necessary - Nutrition - continue Jevity 1.5 through PEG tube. Full code. SCDs. Famotidine twice a day Patient needs LTAC likely 12/26/2016 : No acute change in management. 12/27/16: continue same management . Will monitor patient in ICU. Watch pulm status, suction as need. Case management consult for DC plan. 12/28/16: VSS. Patient at baseline. no change in management. Fairly stable, can transfer to med/surg floor, need close nursing obs. 12/29/16: VSS. With secretions. Start levsin, suction frequently.Monitor VS. patient needs LTAC Angela Trejo MD December 29, 2016 08:13
[2016-12-29] MEDS: levETIRAcetam 500 MG/5 ML UDC NG SCH ×2 (09:00→20:46)
[2016-12-29] MEDS: SENNOSIDES SYRUP 8.8 MG/5 ML CUP PO SCH ×2 (09:00→20:47)
[2016-12-29] MEDS: SODIUM CHLORIDE 0.9% FLUSH 10 ML FLUSH IV FLUSH SCH ×2 (09:00→20:44)
[2016-12-29] MEDS: DOCUSATE SODIUM 100 MG/10 ML UDC PO SCH ×2 (09:00→20:45)
[2016-12-29] MEDS: POLYETHYLENE GLYCOL 17 GM PKG PO SCH (09:00)
[2016-12-29] MEDS: LACTULOSE SYRUP 20 GM/30 ML CUP PO SCH ×2 (09:00→20:44)
[2016-12-29] MEDS: FAMOTIDINE 20 MG TAB NG SCH ×2 (09:01→20:45)
[2016-12-29] MEDS: ASPIRIN 81 MG CHEW TAB NG SCH (09:01)
[2016-12-29] MEDS: ATORVASTATIN 40 MG TAB PO SCH (09:01)
[2016-12-29] MEDS: FOLIC ACID 1 MG TAB OG-TUBE SCH (09:01)
[2016-12-29] MEDS: BROMOCRIPTINE MESYLATE 2.5 MG TAB OG-TUBE SCH ×2 (09:01→20:45)
[2016-12-29] MEDS: CHLORHEXIDINE 0.12% (ORAL KIT) 15 ML CUP MT SCH ×2 (09:07→20:44)
--- NOTE | 2016-12-29 15:41 | HHI.PR ---
Subjective Remarks 66 YOWF with Rf, s/p trach H/O CVA,Arango Arango disease On trach collar Awake, does't follow commands No fever Small amount of trach secretions.. Objective Vital Signs Vital Signs Date Time Temp Pulse Resp B/P Pulse Ox O2 Delivery O2 Flow Rate FiO2 12/29/16 12:00 93 12/29/16 12:00 98.2 93 17 146/76 95 12/29/16 10:00 99 12/29/16 08:12 100 T-piece 6.00 28 12/29/16 08:00 98 12/29/16 08:00 97.6 97 22 150/87 98 12/29/16 07:00 98 T-Piece 28 Humidified 12/29/16 06:00 93 12/29/16 04:00 98.0 92 18 110/63 96 12/29/16 04:00 92 12/29/16 03:00 95 19 115/68 96 12/29/16 02:00 92 12/29/16 02:00 92 19 129/65 95 12/29/16 01:00 86 14 98/54 88 12/29/16 00:00 98.2 95 20 129/74 96 12/29/16 00:00 95 12/28/16 23:00 95 17 127/73 96 12/28/16 22:00 96 29 120/82 91 12/28/16 22:00 96 Trach Collar 6.00 28 12/28/16 22:00 96 12/28/16 21:00 97 19 123/85 92 12/28/16 20:00 99 12/28/16 20:00 97 T-Piece 28 Humidified 12/28/16 20:00 98.3 99 20 147/78 97 12/28/16 19:00 91 15 103/58 89 12/28/16 18:00 91 12/28/16 16:00 108 12/28/16 16:00 98.3 103 22 127/79 94 I/O 12/28/16 12/28/16 12/28/16 12/29/16 12/29/16 12/29/16 07:00 15:00 23:00 07:00 15:00 23:00 Intake Total 290 ml 588 ml 461 ml 632 ml 974 ml Output Total 300 ml 400 ml 300 ml 450 ml 250 ml Balance -10 ml 188 ml 161 ml 182 ml 724 ml IV Total 67 ml 62 ml 67 ml 173 ml 65 ml Tube Feeding 223 ml 466 ml 334 ml 399 ml 849 ml Other 60 ml 60 ml 60 ml 60 ml Output Urine Total 300 ml 400 ml 300 ml 450 ml 250 ml Tube Feeding Residual Discard 0 ml # Bowel Movements 1 1 2 1 Result Diagram: 12/25/1653112/25/16531 Objective Remarks GENERAL: MBMN WF, on Trach collar SKIN: Warm and dry. HEAD: Normocephalic. EYES: No scleral icterus. No injection or drainage. NECK: Supple, trachea midline. No JVD or lymphadenopathy. has trach CARDIOVASCULAR: Regular rate and rhythm without murmurs, gallops, or rubs. RESPIRATORY: Breath sounds equal bilaterally. No accessory muscle use. GASTROINTESTINAL: Abdomen soft, non-tender, nondistended. has PEG MUSCULOSKELETAL: No cyanosis, or edema. BACK: Nontender without obvious deformity. No CVA tenderness. A/P Assessment and Plan RF, S/P Trach CVA Arango arango disease CAD COPD PLAN: Aerosol nebs Cont trach collar supplement 02 Cont TF Vernon Marx MD December 29, 2016 15:41
[2016-12-30] VITALS (11 sets, daily range): BP systolic 111–165; BP diastolic 61–91; PULSE 85–104; RESP 17–22; TEMP 98.1–98.8; O2SAT 91–97
[2016-12-30] MEDS: INSULIN NovoLIN REGULAR SUPPLEMENTAL SCALE SQ SCH ×4 (02:00→19:50)
[2016-12-30] MEDS: CHLORHEXIDINE GLUCONATE 2 % 1 PACK (2 CLOTHS) TOP SCH ×2 (03:07→19:33)
[2016-12-30] MEDS: PIPERACIL-TAZO 3.375 GM PREMIX 50 ML IV SCH ×4 (03:12→20:11)
--- NOTE | 2016-12-30 07:38 | HHI.PR ---
Subjective Remarks Ms. Rivas is a 66-year-old female with a history of stroke who was admitted to the [facility] on 11/04/2016 due to difficulty getting her thoughts together. She was found to have multifocal nonhemorrhagic infarctions in the frontal and parietal regions. She was initially awake and following commands with weakness of RLE and some aphasia. She was transferred to [facility] where he had an cerebral angiogram consistent with moyamoya. There were plans to perform extracranial/intracranial bypass. However she had a seizure and ended up being intubated for status either 4/ or 4/.. She was found to have a new right frontal infarct area and she was started on Dilantin and Keppra and it was felt that she would not be a candidate for intervention. She has been intubated 9-10 days and apparently she has been tolerating C Pap trials to some extent but mental status prevents extubation. Treating team was discussing with family trach/PEG. Apparently family requested transfer back to [place] because they live locally here and wanted her closer to home. Patient remained under critical care medicine until 12/24/2016. 12/30: Seen in intensive care unit, stable discussed with nurse and with Nurse Charge Rn awaiting for Placement. Objective Vital Signs Date Time Temp Pulse Resp B/P Pulse Ox O2 Delivery O2 Flow Rate FiO2 12/30/16 04:00 98.6 87 22 111/61 96 12/30/16 00:00 98.8 90 22 130/71 96 12/29/16 20:00 98.6 97 20 137/70 91 12/29/16 19:44 99 T-piece 12/29/16 19:00 92 T-Piece 28 12/29/16 16:00 98.0 97 23 160/85 94 12/29/16 16:00 97 12/29/16 14:00 96 12/29/16 12:00 93 12/29/16 12:00 98.2 93 17 146/76 95 12/29/16 10:00 99 12/29/16 08:12 100 T-piece 6.00 28 12/29/16 08:00 98 12/29/16 08:00 97.6 97 22 150/87 98 I/O 12/29/16 12/29/16 12/29/16 12/30/16 12/30/16 12/30/16 07:00 15:00 23:00 07:00 15:00 23:00 Intake Total 632 ml 974 ml 705 ml 738 ml Output Total 450 ml 250 ml 200 ml 400 ml Balance 182 ml 724 ml 505 ml 338 ml IV Total 173 ml 65 ml 98 ml 111 ml Tube Feeding 399 ml 849 ml 407 ml 427 ml Albumin 100 ml Other 60 ml 60 ml 200 ml 100 ml Output Urine Total 450 ml 250 ml 200 ml 400 ml # Bowel Movements 2 1 Imaging Last Impressions Chest X-Ray 12/25/16 0600 Signed Impressions: Service Date/Time: Sunday, December 25, 2016 04:09 - CONCLUSION: 1. Questionable early changes of edema. Dependent atelectasis. Tracheostomy unchanged. Samuel Simons MD Brain MRI 12/17/16 0000 Signed Impressions: Service Date/Time: Saturday, December 17, 2016 21:37 - CONCLUSION: Evolving bifrontal signal changes as described Nghia Pacheco MD Abdomen X-Ray 11/26/16 0000 Signed Impressions: Service Date/Time: Saturday, November 26, 2016 10:18 - CONCLUSION: Distended stomach otherwise nonspecific abdomen. Jackson Murillo MD Procedures 11/24/2016 Percutaneous tracheostomy. Other Results No new laboratory. Objective Remarks GENERAL: Alert, sleepy, eyes open, does not respond to verbal commands. Currently on T piece. SKIN: Warm and dry. HEAD: Normocephalic. EYES: No scleral icterus. No injection or drainage. NECK: Supple, trachea midline. No JVD or lymphadenopathy. CARDIOVASCULAR: Regular rhythm, tachycardic without murmurs, gallops, or rubs. RESPIRATORY: Breath sounds equal bilaterally. No accessory muscle use. GASTROINTESTINAL: Abdomen soft, obese, non-tender, nondistended. MUSCULOSKELETAL: No cyanosis, or edema. Medications and IVs Current Medications Medications (Trade) Dose Ordered Sig/Ora Route Start Time Stop Time Status Last Admin (Peridex 0.12% Liq) 15 ml BID@08,20 MT 11/18/16 08:00 12/29/16 20:44 (NS Flush) 2 ml BID IV FLUSH 11/18/16 09:00 12/29/16 20:44 (Tylenol) 650 mg Q6H PRN PO 11/18/16 03:30 12/25/16 16:54 ([place] 5-325 Mg) 1 tab Q4H PRN PO 11/18/16 03:30 12/24/16 12:50 (Morphine Inj) 2 mg Q2H PRN IV 11/18/16 03:30 12/26/16 17:19 (Zofran Inj) 4 mg Q6H PRN IV 11/18/16 03:30 11/26/16 03:20 Miscellaneous Information 1 Q361D XX 11/18/16 03:30 11/18/16 03:30 (Chlorhexidine 2% Cloth) 3 pack Taper DAILY@04 TOP 11/18/16 04:00 11/14/17 03:59 12/30/16 03:07 (Chlorhexidine 2% Cloth) 3 pack UNSCH PRN TOP 11/18/16 03:30 (Aspirin Chew) 324 mg DAILY NG 11/18/16 09:00 12/29/16 09:01 (Lipitor) 40 mg DAILY PO 11/18/16 09:00 12/29/16 09:01 (Parlodel) 2.5 mg Q12HR OG-TUBE 11/18/16 09:00 12/29/16 20:45 Folic Acid 1 mg 1 mg DAILY OG-TUBE 11/18/16 09:00 12/29/16 09:01 Potassium Chloride 100 ml @ 50 mls/hr Q2H PRN IV 11/18/16 13:30 (KCl 20 Meq Premix Inj) 100 ml @ 50 mls/hr Q2H PRN IV 11/18/16 13:30 11/27/16 14:13 Potassium Bicarb/ Potassium Chloride 50 meq 50 meq UNSCH PRN PO 11/18/16 13:30 11/29/16 06:20 Potassium Chloride 100 ml @ 25 mls/hr UNSCH PRN IV 11/18/16 13:30 Potassium Chloride 100 ml @ 50 mls/hr Q2H PRN IV 11/18/16 13:30 11/24/16 06:27 (Magnesium Sulfate Inj/NS Inj) 100 ml @ 50 mls/hr UNSCH PRN IV 11/18/16 13:30 Magnesium Oxide 800 mg 800 mg UNSCH PRN PO 11/18/16 13:30 (Magnesium Sulfate Inj/NS Inj) 100 ml @ 50 mls/hr UNSCH PRN IV 11/18/16 13:30 Potassium Phosphate 2000 mg 2,000 mg Q4H PRN PO 11/18/16 13:30 (Sodium Phosphate Inj/NS 250 ml Inj) 250 ml @ 42 mls/hr UNSCH PRN IV 11/18/16 13:30 Potassium Phosphate 2000 mg 2,000 mg UNSCH PRN PO/TUBE 11/18/16 13:30 (Potassium Phosphate Inj/NS 250 ml Inj) 260 ml @ 42 mls/hr UNSCH PRN IV 11/18/16 13:30 (Senna Liq) 8.8 mg BID PO 11/19/16 21:00 12/29/16 20:47 (Colace Liq) 100 mg Q12HR PO 11/19/16 21:00 12/29/16 20:45 (Miralax) 17 gm DAILY PO 11/21/16 18:00 12/27/16 10:05 (D50w (Vial) Inj) 25 ml UNSCH PRN IV PUSH 11/22/16 08:00 (Glucagon Inj) 1 mg UNSCH PRN OTHER 11/22/16 08:00 (NovoLIN R SUPPLEMENTAL SCALE) 1 Q6H SQ 11/22/16 08:00 12/29/16 20:49 (Lopressor Inj) 5 mg Q6H PRN IV PUSH 11/23/16 22:45 (Lactulose Liq) 15 ml BID PO 11/26/16 09:00 12/29/16 20:44 Bisacodyl 10 mg 10 mg DAILY PRN RECTAL 12/14/16 15:45 (Zosyn 3.375 Gm Premix) 50 ml @ 100 mls/hr Q6H IV 12/19/16 10:00 12/30/16 03:12 (Pepcid) 20 mg BID NG 12/21/16 21:00 12/29/16 20:45 (Keppra Liq) 1,500 mg Q12HR NG 12/21/16 21:00 12/29/16 20:46 (Levsin Liq) 0.125 mg Q4H PRN PO 12/28/16 07:15 A/P Assessment and Plan - Bilateral frontal CVA - Moyamoya - confirmed by arteriogram at [facility] October 2016. - Seizure disorder Noted significant JOE/MCA disease bilaterally from previous imaging of brain Keppra 1500 mg switch to by PEG twice a day for seizures Continue ASA 324 mg daily, atorvastatin 40 mg by mouth daily Continue bromocriptine 2.5 mg by mouth BID EEG-noted sharp spikes Neurology is following at a distance-Dr. Flores Has been evaluated tertiary care center [place] and felt to not be a candidate for further intervention. - COPD stable - Acute respiratory failure - currently on T piece. - Multilobar pneumonia Status post tracheostomy on 11/24/2016. Pulmonary following. Continue Zosyn 3.375 g every 6 hours DuoNeb when necessary - Nutrition - continue Jevity 1.5 through PEG tube. Full code. SCDs. Famotidine twice a day Discharge Planning Discussed with Nurse Charge Rn awaiting for placement. Adrian Chang MD December 30, 2016 07:38
[2016-12-30] MEDS: ASPIRIN 81 MG CHEW TAB NG SCH (08:37)
[2016-12-30] MEDS: levETIRAcetam 500 MG/5 ML UDC NG SCH ×2 (08:37→19:53)
[2016-12-30] MEDS: SODIUM CHLORIDE 0.9% FLUSH 10 ML FLUSH IV FLUSH SCH ×2 (08:37→19:39)
[2016-12-30] MEDS: ATORVASTATIN 40 MG TAB PO SCH (08:38)
[2016-12-30] MEDS: FAMOTIDINE 20 MG TAB NG SCH ×2 (08:38→19:54)
[2016-12-30] MEDS: FOLIC ACID 1 MG TAB OG-TUBE SCH (08:38)
[2016-12-30] MEDS: DOCUSATE SODIUM 100 MG/10 ML UDC PO SCH ×2 (08:50→19:53)
[2016-12-30] MEDS: SENNOSIDES SYRUP 8.8 MG/5 ML CUP PO SCH ×2 (08:50→19:53)
[2016-12-30] MEDS: POLYETHYLENE GLYCOL 17 GM PKG PO SCH (08:50)
[2016-12-30] MEDS: LACTULOSE SYRUP 20 GM/30 ML CUP PO SCH ×2 (08:50→19:53)
[2016-12-30] MEDS: CHLORHEXIDINE 0.12% (ORAL KIT) 15 ML CUP MT SCH ×2 (08:51→19:39)
[2016-12-30] MEDS: BROMOCRIPTINE MESYLATE 2.5 MG TAB OG-TUBE SCH ×2 (08:54→19:54)
--- NOTE | 2016-12-30 17:33 | HHI.HCPN ---
Reason for visit a. To assist with evaluation and management of symptoms including: encephalopathy, seizure, dyspnea, weakness, constipation. b. To assist medical decision maker(s) with: better understanding of current medical conditions; weighing benefits/burdens of medical treatment options; making medical treatment decisions. . (Grecia Ernst) Subjective/Interval History Seen to follow up on comfort, neurological status. Seen today with no family in the room. Her eyes are open, she makes eye contact and tracks to the left, but has difficulty tracking to the right. Interacts by blinking more consistently to examiner's questions and noxious stimuli. 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 She remains on full support including tube feeding which she is tolerating well. She remains mildly anemic by current lab studies with hemoglobin 9.2 and hematocrit 29.6 with stable chemistries total albumin has shown minimal improvement to 2.4 from a low of 1.9. Sputum cultures done 12/25 shows staph aureus and pseudomonas aeruginosa sensitive to Zosyn which she is currently receiving. Chest x-ray shows no acute disease. She interacts with examiner blinking to yes and no questions consistently. She also blinks to indicate pain when noxious stimuli applied. She is pending placement and has so far been declined by all queried facilities. . Family/friend interactions Contacted the daughter, Marcelo, via telephone and updated her as to the opinion of neurology regarding the most recent MRI and EEG as well as the patient's current clinical status including physical exam findings from today. We did discuss the possibility of recurrent seizures, recurrent strokes, sepsis, pneumonia, cardiac events, thromboembolic events and other complications of immobility and long-term hospitalization. We did discuss CODE STATUS again as these complications may necessitate revisiting those decisions. Currently patient is a full code because Marcelo is uncomfortable making that decision and her sister, Maria Del Carmen, who prefers a DNR status, is willing to continue full CODE STATUS until consensus can be reached. Marcelo became quite tearful and emotional and stated that her mother had never had that discussion with them and she would like to wait a little longer to see if her mother's condition improves enough to be able to have her mother's input. I did advise her that we would continue to update her on her mother's clinical status and continue to support her and her siblings in those decisions and provided her with contact information for any further questions or concerns. (Grecia Ernst) Advance Directives Living Will: Never completed Health Care Surrogate: Never completed Durable Power of Hairspring Vibrator: Never completed (Grecia Ernst) Advance Directive Specifics Health Care Surrogate(s): No known written advance directives. Patient currently incapacitated to make her healthcare decisions. According to [place] statutes health care proxy decision-making falls to the majority of adult children. Patient has 3 children. . (Grecia Ernst) Objective Vital Signs Date Time Temp Pulse Resp B/P Pulse Ox O2 Delivery O2 Flow Rate FiO2 12/30/16 16:00 98.1 100 17 164/83 97 12/30/16 16:00 100 12/30/16 16:00 97 T-Piece 28 Humidified 12/30/16 14:00 87 12/30/16 12:00 91 T-Piece 28 Humidified 12/30/16 12:00 98.4 86 21 132/71 91 12/30/16 12:00 86 12/30/16 10:00 85 12/30/16 08:28 96 T-piece 5.00 28 12/30/16 08:00 96 T-Piece 28 Humidified 12/30/16 08:00 93 12/30/16 08:00 98.8 93 22 130/78 96 12/30/16 04:00 98.6 87 22 111/61 96 12/30/16 00:00 98.8 90 22 130/71 96 12/29/16 20:00 98.6 97 20 137/70 91 12/29/16 19:44 99 T-piece 28 12/29/16 19:00 92 T-Piece 28 Humidified Intake & Output 12/30/16 12/30/16 06:59 18:59 Intake Total 1443 ml 823 ml Output Total 600 ml 350 ml Balance 843 ml 473 ml IV Total 209 ml 104 ml Tube Feeding 834 ml 479 ml Albumin 100 ml Other 300 ml 240 ml Output Urine Total 600 ml 350 ml # Bowel Movements 1 Physical Exam CONSTITUTIONAL/GENERAL: Awake, alert, eyes open, interacting on T piece TUBES/LINES/DRAINS: PIV LFA , Tracheostomy, PEG, Brown, SCDs, multipodus boots. CARDIOVASCULAR: Regular rate and rhythm, S1, S2 no murmur or gallop RESPIRATORY/CHEST: trach midline. Symmetric, unlabored respirations via trach to 28% FIO2 on T piece . Clear to auscultation. GASTROINTESTINAL: Abdomen soft, nondistended. Bowel sounds active. +PEG LUQ site asymptomatic, +TF infusing GENITOURINARY: Without palpable bladder distension. Brown catheter in place- clear yellow urine. NEUROLOGICAL: Eyes open, tracking examiner. Blinks eyes to note discomfort to noxious stimuli as requested by examiner consistently in all 4 extremities. PSYCHIATRIC: no signs of anxiety . (Grecia Ernst) Diagnostic Tests Procedures 11/22 - PEG placement 11/30 - tracheostomy (Grecia Ernst) Assessment and Plan Disease Oriented Problem List: (1) CVA (cerebral vascular accident) (2) Moyamoya disease (3) Seizure Comment: On Keppra . (4) Generalized weakness Symptom Scale: (1) Seizure 0-10 Scale: Unable to quantify (2) Generalized weakness 0-10 Scale: Unable to quantify (3) Dyspnea 0-10 Scale: Unable to quantify (4) Constipation 0-10 Scale: Unable to quantify (5) Encephalopathy 0-10 Scale: Unable to quantify Pertinent Non-Medical Issues Psychosocial: Single. Has 2 daughters and one son. Spiritual: unknown. Legal: Ethical issues impacting care: No known concerns at this time. . Important Contacts * Maria Del Carmen Rivas, daughter: [phone] * Marcelo Rivas, daughter: [phone] * Dwight Rivas, son: [phone] . Prognosis MRI/EEG reviewed by neurology, prognosis felt to be poor, infarct noted to be huge. Repeat MRI done 12/[address] Flores and he feels that she may regain some ability to speak but does note that the infarct was a huge right frontal CVA and increased size of the left frontal CVA. EEG showed some left "sharps" and his recommendation was to continue Keppra. Prognosis remains poor in light of the most current studies. Code Status: Full Code Plan * Patient is incapacitated to make healthcare decisions. No known written advanced directives. According to [place] Statutes, health care proxy decision making falls to majority of adult children. Patient has 2 daughters (Maria Del Carmen, Marcelo) and 1 son (Dwight). * CODE STATUSFULL CODE * GOALS: Currently remain aggressive. There are differing opinions between the 2 daughters regarding DNR status and repeat neurology evaluation has been requested and completed. MRI showed an increasing size of the left frontal CVA which is felt to indicate some damage to the language area, however Dr. Flores states that he feels eventually she may speak and interact more. As the daughter Marcelo, is struggling with the DNR option, it was the opinion of the other daughter, Maria Del Carmen, that they would continue full CODE STATUS at this time until the family could reach a consensus. Per my conversation with Maria Del Carmen , 12/27/16 and my conversation with Marcelo, 12/30/16, they would continue aggressive measures at this time. SYMPTOMS: * Seizure: hx seizures 2/2 CVA; EEG showed "left sharps" and was continued per neurology. She remains on Keppra with no seizures. * Weakness: due to prolonged hospital course, bilateral infarcts. Not regaining any purposeful or spontaneous movements as of yet. PT continues to follow working with bed mobility requiring maximum assistance. Placement is pending. She has thus far been declined by all queried facilities. Case management following. * Dyspnea: Off sedation. tolerating T Piece. Sputum culture shows Staphylococcus aureus and pseudomonas aeruginosa unchanged since sputum culture done 12/15 showing the same 2 organisms. Sensitive to Zosyn which she is receiving. No signs of tachypnea, or dyspnea. She remains at risk for complications due to severe mitral regurgitation, tracheostomy and immobility. * Encephalopathy: Improving alertness and response at this time. Dr. Flores following. Continuing to update family to facilitate decision-making. * Constipation: Resolved with regular bowel movements. Palliative care will continue to follow during hospital course as condition evolves, to assist patient/decision-maker with understanding of medical conditions, weighing benefits/burdens of treatment options, for clarification of goals of treatment. Additionally will assist with any symptoms of palliative concern. . (Grecia Ernst) Attestation To help prompt me to consider important information that might be impacting today's encounter and assessment, information from prior notes written by myself or my colleagues may have been "brought forward" into today's note. My signature on this note, however, is an attestation that I personally performed the exam, history, and/or decision-making noted today, and, unless otherwise indicated, the interactions with patient, family, and staff as well as the review of records all occurred today. I also attest that the listed assessment and stated plan reflect my best clinical judgment today based on the combination of historical information, prior notes, and today's exam/ interactions. When time spent is documented, it refers only to time spent today by the signer, or if indicated, combined time spent today by collaborating physician/nurse practitioner. (Grecia Ernst) Collaborating MD Comments . Chart reviewed. Case discussed with palliative care JEWELRY TECHNICIAN. Above JEWELRY TECHNICIAN note reviewed and I concur. . (Stephen Lombardo MD) Grecia Ernst December 30, 2016 17:33 Stephen Lombardo MD January 04, 2017 16:41
--- NOTE | 2016-12-30 18:38 | HHI.PR ---
Subjective Remarks 66 YOWF with Rf, s/p trach H/O CVA,Arango Arango disease On trach collar Awake, does't follow commands No fever Small amount of trach secretions.. Objective Vital Signs Vital Signs Date Time Temp Pulse Resp B/P Pulse Ox O2 Delivery O2 Flow Rate FiO2 12/30/16 18:00 98 12/30/16 16:00 98.1 100 17 164/83 97 12/30/16 16:00 100 12/30/16 16:00 97 T-Piece 28 Humidified 12/30/16 14:00 87 12/30/16 12:00 91 T-Piece 28 Humidified 12/30/16 12:00 98.4 86 21 132/71 91 12/30/16 12:00 86 12/30/16 10:00 85 12/30/16 08:28 96 T-piece 5.00 28 12/30/16 08:00 96 T-Piece 28 Humidified 12/30/16 08:00 93 12/30/16 08:00 98.8 93 22 130/78 96 12/30/16 04:00 98.6 87 22 111/61 96 12/30/16 00:00 98.8 90 22 130/71 96 12/29/16 20:00 98.6 97 20 137/70 91 12/29/16 19:44 99 T-piece 28 12/29/16 19:00 92 T-Piece 28 Humidified I/O 12/29/16 12/29/16 12/29/16 12/30/16 12/30/16 12/30/16 07:00 15:00 23:00 07:00 15:00 23:00 Intake Total 632 ml 974 ml 705 ml 738 ml 823 ml Output Total 450 ml 250 ml 200 ml 400 ml 350 ml Balance 182 ml 724 ml 505 ml 338 ml 473 ml IV Total 173 ml 65 ml 98 ml 111 ml 104 ml Tube Feeding 399 ml 849 ml 407 ml 427 ml 479 ml Albumin 100 ml Other 60 ml 60 ml 200 ml 100 ml 240 ml Output Urine Total 450 ml 250 ml 200 ml 400 ml 350 ml # Bowel Movements 2 1 1 Objective Remarks GENERAL: MBMN WF, on Trach collar SKIN: Warm and dry. HEAD: Normocephalic. EYES: No scleral icterus. No injection or drainage. NECK: Supple, trachea midline. No JVD or lymphadenopathy. has trach CARDIOVASCULAR: Regular rate and rhythm without murmurs, gallops, or rubs. RESPIRATORY: Breath sounds equal bilaterally. No accessory muscle use. GASTROINTESTINAL: Abdomen soft, non-tender, nondistended. has PEG MUSCULOSKELETAL: No cyanosis, or edema. BACK: Nontender without obvious deformity. No CVA tenderness. A/P Assessment and Plan RF, S/P Trach CVA Arango arango disease CAD COPD PLAN: Aerosol nebs Cont trach collar supplement 02 Cont TF DW RN Downsize trach#6 Vernon Marx MD December 30, 2016 18:38
[2016-12-31] VITALS (23 sets, daily range): BP systolic 120–173; BP diastolic 73–100; PULSE 91–152; RESP 11–37; TEMP 98–99.8; O2SAT 88–98
[2016-12-31] MEDS: INSULIN NovoLIN REGULAR SUPPLEMENTAL SCALE SQ SCH ×4 (01:50→19:39)
[2016-12-31] MEDS: PIPERACIL-TAZO 3.375 GM PREMIX 50 ML IV SCH ×4 (02:26→19:53)
[2016-12-31] MEDS: CHLORHEXIDINE 0.12% (ORAL KIT) 15 ML CUP MT SCH ×2 (08:00→19:43)
[2016-12-31] MEDS: LACTULOSE SYRUP 20 GM/30 ML CUP PO SCH ×2 (08:38→19:43)
[2016-12-31] MEDS: DOCUSATE SODIUM 100 MG/10 ML UDC PO SCH ×2 (08:38→19:43)
[2016-12-31] MEDS: FAMOTIDINE 20 MG TAB NG SCH ×2 (08:39→19:43)
[2016-12-31] MEDS: ASPIRIN 81 MG CHEW TAB NG SCH (08:39)
[2016-12-31] MEDS: BROMOCRIPTINE MESYLATE 2.5 MG TAB OG-TUBE SCH ×2 (08:39→19:48)
[2016-12-31] MEDS: ACETAMINOPHEN/HYDROcodone 325 MG/5 MG TAB PO PRN ×2 (08:40→19:15)
[2016-12-31] MEDS: FOLIC ACID 1 MG TAB OG-TUBE SCH (08:40)
[2016-12-31] MEDS: ATORVASTATIN 40 MG TAB PO SCH (08:40)
[2016-12-31] MEDS: levETIRAcetam 500 MG/5 ML UDC NG SCH ×2 (08:41→19:43)
[2016-12-31] MEDS: SENNOSIDES SYRUP 8.8 MG/5 ML CUP PO SCH ×2 (08:41→19:43)
[2016-12-31] MEDS: POLYETHYLENE GLYCOL 17 GM PKG PO SCH (08:41)
[2016-12-31] MEDS: SODIUM CHLORIDE 0.9% FLUSH 10 ML FLUSH IV FLUSH SCH ×2 (09:00→19:43)
--- NOTE | 2016-12-31 14:35 | HHI.PR ---
Subjective Remarks Ms. Rivas is a 66-year-old female with a history of stroke who was admitted to the [facility] on 11/04/2016 due to difficulty getting her thoughts together. She was found to have multifocal nonhemorrhagic infarctions in the frontal and parietal regions. She was initially awake and following commands with weakness of RLE and some aphasia. She was transferred to [facility] where he had an cerebral angiogram consistent with moyamoya. There were plans to perform extracranial/intracranial bypass. However she had a seizure and ended up being intubated for status either 4/4 or 4/5.. She was found to have a new right frontal infarct area and she was started on Dilantin and Keppra and it was felt that she would not be a candidate for intervention. She has been intubated 9-10 days and apparently she has been tolerating C Pap trials to some extent but mental status prevents extubation. Treating team was discussing with family trach/PEG. Apparently family requested transfer back to [place] because they live locally here and wanted her closer to home. Patient remained under critical care medicine until 12/24/2016. 12/31: Patient stable discussed again today with Purchasing Administrative Assistant continue awaiting for placement, ict security specialist and health promotion specialist following. Objective Vital Signs Date Time Temp Pulse Resp B/P Pulse Ox O2 Delivery O2 Flow Rate FiO2 12/31/16 12:00 98.3 99 18 156/94 97 12/31/16 12:00 97 T-Piece 28 Humidified 12/31/16 12:00 98 12/31/16 10:00 98 12/31/16 08:00 97 T-Piece 28 Humidified 12/31/16 08:00 98.0 92 17 140/75 97 12/31/16 08:00 98 12/31/16 07:20 98 12/31/16 06:00 98 12/31/16 04:00 98.7 92 17 143/75 97 12/31/16 04:00 97 T-Piece 28 Humidified 12/31/16 04:00 98 12/31/16 02:00 98 12/31/16 00:00 98 12/31/16 00:00 95 T-Piece 28 Humidified 12/31/16 00:00 98.3 152 17 165/82 97 12/30/16 22:00 98 12/30/16 20:00 95 T-Piece 28 Humidified 12/30/16 20:00 98 12/30/16 20:00 98.1 104 17 165/91 97 12/30/16 18:00 98 12/30/16 16:00 98.1 100 17 164/83 97 12/30/16 16:00 100 12/30/16 16:00 97 T-piece 28 12/30/16 16:00 97 T-Piece 28 Humidified I/O 12/30/16 12/30/16 12/30/16 12/31/16 12/31/16 12/31/16 07:00 15:00 23:00 07:00 15:00 23:00 Intake Total 738 ml 823 ml 661 ml 615 ml Output Total 400 ml 350 ml 375 ml 450 ml Balance 338 ml 473 ml 286 ml 165 ml IV Total 111 ml 104 ml 111 ml 115 ml Tube Feeding 427 ml 479 ml 425 ml 375 ml Albumin 100 ml Other 100 ml 240 ml 125 ml 125 ml Output Urine Total 400 ml 350 ml 375 ml 450 ml # Bowel Movements 1 1 2 Imaging Last Impressions Chest X-Ray 12/25/16 0600 Signed Impressions: Service Date/Time: Sunday, December 25, 2016 04:09 - CONCLUSION: 1. Questionable early changes of edema. Dependent atelectasis. Tracheostomy unchanged. Samuel Simons MD Brain MRI 12/17/16 0000 Signed Impressions: Service Date/Time: Saturday, December 17, 2016 21:37 - CONCLUSION: Evolving bifrontal signal changes as described Nghia Pacheco MD Abdomen X-Ray 11/26/16 0000 Signed Impressions: Service Date/Time: Saturday, November 26, 2016 10:18 - CONCLUSION: Distended stomach otherwise nonspecific abdomen. K. David Murillo MD Procedures 11/24/2016 Percutaneous tracheostomy. Other Results No new laboratory Objective Remarks GENERAL: Alert, sleepy, eyes open, does not respond to verbal commands. Currently on T piece. SKIN: Warm and dry. HEAD: Normocephalic. EYES: No scleral icterus. No injection or drainage. NECK: Supple, trachea midline. No JVD or lymphadenopathy. CARDIOVASCULAR: Regular rhythm, tachycardic without murmurs, gallops, or rubs. RESPIRATORY: Breath sounds equal bilaterally. No accessory muscle use. GASTROINTESTINAL: Abdomen soft, obese, non-tender, nondistended. PEG tube in place. MUSCULOSKELETAL: No cyanosis, or edema. Medications and IVs Current Medications Medications (Trade) Dose Ordered Sig/Ora Route Start Time Stop Time Status Last Admin (Peridex 0.12% Liq) 15 ml BID@08,20 MT 11/18/16 08:00 12/30/16 19:39 (NS Flush) 2 ml BID IV FLUSH 11/18/16 09:00 12/31/16 09:00 (Tylenol) 650 mg Q6H PRN PO 11/18/16 03:30 12/25/16 16:54 ([place] 5-325 Mg) 1 tab Q4H PRN PO 11/18/16 03:30 12/31/16 08:40 (Morphine Inj) 2 mg Q2H PRN IV 11/18/16 03:30 12/26/16 17:19 (Zofran Inj) 4 mg Q6H PRN IV 11/18/16 03:30 11/26/16 03:20 Miscellaneous Information 1 Q361D XX 11/18/16 03:30 11/18/16 03:30 (Chlorhexidine 2% Cloth) Taper DAILY@04 TOP 11/18/16 04:00 11/14/17 03:59 12/30/16 19:33 (Chlorhexidine 2% Cloth) 3 pack UNSCH PRN TOP 11/18/16 03:30 (Aspirin Chew) 324 mg DAILY NG 11/18/16 09:00 12/31/16 08:39 (Lipitor) 40 mg DAILY PO 11/18/16 09:00 12/31/16 08:40 (Parlodel) 2.5 mg Q12HR OG-TUBE 11/18/16 09:00 12/31/16 08:39 Folic Acid 1 mg 1 mg DAILY OG-TUBE 11/18/16 09:00 12/31/16 08:40 Potassium Chloride 100 ml @ 50 mls/hr Q2H PRN IV 11/18/16 13:30 (KCl 20 Meq Premix Inj) 100 ml @ 50 mls/hr Q2H PRN IV 11/18/16 13:30 11/27/16 14:13 Potassium Bicarb/ Potassium Chloride 50 meq 50 meq UNSCH PRN PO 11/18/16 13:30 11/29/16 06:20 Potassium Chloride 100 ml @ 25 mls/hr UNSCH PRN IV 11/18/16 13:30 Potassium Chloride 100 ml @ 50 mls/hr Q2H PRN IV 11/18/16 13:30 11/24/16 06:27 (Magnesium Sulfate Inj/NS Inj) 100 ml @ 50 mls/hr UNSCH PRN IV 11/18/16 13:30 Magnesium Oxide 800 mg 800 mg UNSCH PRN PO 11/18/16 13:30 (Magnesium Sulfate Inj/NS Inj) 100 ml @ 50 mls/hr UNSCH PRN IV 11/18/16 13:30 Potassium Phosphate 2000 mg 2,000 mg Q4H PRN PO 11/18/16 13:30 (Sodium Phosphate Inj/NS 250 ml Inj) 250 ml @ 42 mls/hr UNSCH PRN IV 11/18/16 13:30 Potassium Phosphate 2000 mg 2,000 mg UNSCH PRN PO/TUBE 11/18/16 13:30 (Potassium Phosphate Inj/NS 250 ml Inj) 260 ml @ 42 mls/hr UNSCH PRN IV 11/18/16 13:30 (Senna Liq) 8.8 mg BID PO 11/19/16 21:00 12/31/16 08:41 (Colace Liq) 100 mg Q12HR PO 11/19/16 21:00 12/31/16 08:38 (Miralax) 17 gm DAILY PO 11/21/16 18:00 12/31/16 08:41 (D50w (Vial) Inj) 25 ml UNSCH PRN IV PUSH 11/22/16 08:00 (Glucagon Inj) 1 mg UNSCH PRN OTHER 11/22/16 08:00 (NovoLIN R SUPPLEMENTAL SCALE) 1 Q6H SQ 11/22/16 08:00 12/30/16 19:50 (Lopressor Inj) 5 mg Q6H PRN IV PUSH 11/23/16 22:45 (Lactulose Liq) 15 ml BID PO 11/26/16 09:00 12/31/16 08:38 Bisacodyl 10 mg 10 mg DAILY PRN RECTAL 12/14/16 15:45 (Zosyn 3.375 Gm Premix) 50 ml @ 100 mls/hr Q6H IV 12/19/16 10:00 5/26/17 10:00 (Pepcid) 20 mg BID NG 12/21/16 21:00 12/31/16 08:39 (Keppra Liq) 1,500 mg Q12HR NG 12/21/16 21:00 12/31/16 08:41 (Levsin Liq) 0.125 mg Q4H PRN PO 12/28/16 07:15 A/P Assessment and Plan - Bilateral frontal CVA - Moyamoya - confirmed by arteriogram at [facility] October 2016. - Seizure disorder Noted significant JOE/MCA disease bilaterally from previous imaging of brain Keppra 1500 mg switch to by PEG twice a day for seizures Continue ASA 324 mg daily, atorvastatin 40 mg by mouth daily Continue bromocriptine 2.5 mg by mouth BID EEG-noted sharp spikes Neurology is following at a distance-Dr. Flores Has been evaluated tertiary care center [place] and felt to not be a candidate for further intervention. - COPD stable - Acute respiratory failure - currently on T piece. - Multilobar pneumonia Status post tracheostomy on 11/24/2016. Pulmonary following. Continue Zosyn 3.375 g every 6 hours DuoNeb when necessary - Nutrition - continue Jevity 1.5 through PEG tube. Full code. SCDs. Famotidine twice a day No changes to anterior assessment. Discharge Planning Discussed with Purchasing Administrative Assistant awaiting for placement. Adrian Chang MD December 31, 2016 14:35
[2016-12-31] MEDS: MORPHINE SULFATE 4 MG/ML INJ IV PRN (16:18)
--- NOTE | 2016-12-31 17:00 | HHI.PR ---
Subjective Remarks 66 YOWF with Rf, s/p trach H/O CVA,Arango Arango disease On trach collar Awake, does't follow commands No fever no new complaint Objective Vital Signs Vital Signs Date Time Temp Pulse Resp B/P Pulse Ox O2 Delivery O2 Flow Rate FiO2 12/31/16 16:00 98 12/31/16 16:00 97 T-Piece 28 Humidified 12/31/16 16:00 98.3 99 18 166/100 97 12/31/16 14:00 98 12/31/16 12:00 98.3 99 18 156/94 97 12/31/16 12:00 97 T-Piece 28 Humidified 12/31/16 12:00 98 12/31/16 10:00 98 12/31/16 08:00 97 T-Piece 28 Humidified 12/31/16 08:00 98.0 92 17 140/75 97 12/31/16 08:00 98 12/31/16 07:20 98 12/31/16 06:00 98 12/31/16 04:00 98.7 92 17 143/75 97 12/31/16 04:00 97 T-Piece 28 Humidified 12/31/16 04:00 98 12/31/16 02:00 98 12/31/16 00:00 98 12/31/16 00:00 95 T-Piece 28 Humidified 12/31/16 00:00 98.3 152 17 165/82 97 12/30/16 22:00 98 12/30/16 20:00 95 T-Piece 28 Humidified 12/30/16 20:00 98 12/30/16 20:00 98.1 104 17 165/91 97 12/30/16 18:00 98 I/O 12/30/16 12/30/16 12/30/16 12/31/16 12/31/16 12/31/16 07:00 15:00 23:00 07:00 15:00 23:00 Intake Total 738 ml 823 ml 661 ml 615 ml 574 ml Output Total 400 ml 350 ml 375 ml 450 ml 525 ml Balance 338 ml 473 ml 286 ml 165 ml 49 ml IV Total 111 ml 104 ml 111 ml 115 ml 110 ml Tube Feeding 427 ml 479 ml 425 ml 375 ml 364 ml Albumin 100 ml Other 100 ml 240 ml 125 ml 125 ml 100 ml Output Urine Total 400 ml 350 ml 375 ml 450 ml 525 ml # Bowel Movements 1 1 2 2 Objective Remarks GENERAL: MBMN WF, on Trach collar SKIN: Warm and dry. HEAD: Normocephalic. EYES: No scleral icterus. No injection or drainage. NECK: Supple, trachea midline. No JVD or lymphadenopathy. has trach CARDIOVASCULAR: Regular rate and rhythm without murmurs, gallops, or rubs. RESPIRATORY: Breath sounds equal bilaterally. No accessory muscle use. GASTROINTESTINAL: Abdomen soft, non-tender, nondistended. has PEG MUSCULOSKELETAL: No cyanosis, or edema. BACK: Nontender without obvious deformity. No CVA tenderness. A/P Assessment and Plan RF, S/P Trach CVA Arango arango disease CAD COPD PLAN: Aerosol nebs Cont trach collar supplement 02 Cont TF Vernon Catalan RN, MD December 31, 2016 17:00
[2016-12-31] MEDS: RESP: ALBUTEROL 2.5 MG/3 ML NEB (PRN) INH ×2 (18:18→19:19)
[2016-12-31] MEDS: ACETAMINOPHEN 325 MG TAB PO PRN (19:15)
--- NOTE | 2016-12-31 19:39 | HHI.PR ---
Subjective Remarks Patient became hypoxemic and tachypneic after attempted trach change. Diffuse rhonchi noted, temp 99.7. Moving air well now and sats 96% on 28%. Presently she is comfortable and we will not formally re-consult. [facility] will call me with any acute respiratory problems tonight. Objective Vital Signs Date Time Temp Pulse Resp B/P Pulse Ox O2 Delivery O2 Flow Rate FiO2 12/31/16 18:00 104 17 173/95 91 12/31/16 18:00 98 12/31/16 17:30 108 23 151/90 93 12/31/16 17:00 100 24 153/89 95 12/31/16 16:30 101 37 151/91 88 12/31/16 16:22 101 11 148/83 90 12/31/16 16:19 103 26 167/90 88 12/31/16 16:00 98 12/31/16 16:00 109 26 166/100 93 12/31/16 16:00 97 T-Piece 28 Humidified 12/31/16 16:00 98.3 99 18 166/100 97 12/31/16 15:00 104 20 96 12/31/16 14:00 98 12/31/16 14:00 100 21 96 12/31/16 13:00 98 20 95 12/31/16 12:00 98.3 99 18 156/94 97 12/31/16 12:00 97 T-Piece 28 Humidified 12/31/16 12:00 98 12/31/16 12:00 99 23 156/94 94 12/31/16 11:00 93 20 96 12/31/16 10:00 98 12/31/16 10:00 100 22 96 12/31/16 09:00 98 23 92 12/31/16 08:00 97 T-Piece 28 Humidified 12/31/16 08:00 91 19 140/79 94 12/31/16 08:00 98.0 92 17 140/75 97 12/31/16 08:00 98 12/31/16 07:20 98 12/31/16 06:00 98 12/31/16 04:00 98.7 92 17 143/75 97 12/31/16 04:00 97 T-Piece 28 Humidified 12/31/16 04:00 98 12/31/16 02:00 98 12/31/16 00:00 98 12/31/16 00:00 95 T-Piece 28 Humidified 12/31/16 00:00 98.3 152 17 165/82 97 12/30/16 22:00 98 12/30/16 20:00 95 T-Piece 28 Humidified 12/30/16 20:00 98 12/30/16 20:00 98.1 104 17 165/91 97 I/O 12/30/16 12/30/16 12/30/16 12/31/16 12/31/16 12/31/16 07:00 15:00 23:00 07:00 15:00 23:00 Intake Total 738 ml 823 ml 661 ml 615 ml 574 ml Output Total 400 ml 350 ml 375 ml 450 ml 525 ml Balance 338 ml 473 ml 286 ml 165 ml 49 ml IV Total 111 ml 104 ml 111 ml 115 ml 110 ml Tube Feeding 427 ml 479 ml 425 ml 375 ml 364 ml Albumin 100 ml Other 100 ml 240 ml 125 ml 125 ml 100 ml Output Urine Total 400 ml 350 ml 375 ml 450 ml 525 ml # Bowel Movements 1 1 2 2 Procedures 11/24/2016 Percutaneous tracheostomy. Patrick Avila MD December 31, 2016 19:39
[2016-12-31] MEDS: CHLORHEXIDINE GLUCONATE 2 % 1 PACK (2 CLOTHS) TOP SCH (19:48)
--- NOTE | 2016-12-31 20:47 | RADRPT ---
EXAM DATE/TIME: 12/31/2016 19:39 [place] COMPARISON: CHEST SINGLE AP, December 25, 2016, 4:09. INDICATIONS : Hypoxia. Respiratory failure. MEDICAL HISTORY : Stroke. SURGICAL HISTORY : None. ENCOUNTER: Subsequent ACUITY: 4 - 6 days PAIN SCORE: Non-responsive. LOCATION: Bilateral chest FINDINGS: A single view of the chest demonstrates the lungs to be symmetrically aerated without evidence of mas s, infiltrate or effusion. Unchanged mild cardiomegaly. Tracheostomy tube. Osseous structures are int act. CONCLUSION: Stable cardiomegaly. Clear lungs. Peña Diana Jr., MD on December 31, 2016 at 20:45 Board Certified Radiologist. This report was verified electronically.
[2016-12-31 22:00] LABS: AUTOMATED NEUTROPHIL # 7.8 TH/MM3 (1.8-7.7); BASOPHIL # 0.1 TH/MM3 (0-0.2); BASOPHIL % 0.9 % (0.0-2.0); EOSINOPHIL # 0.3 TH/MM3 (0-0.4); EOSINOPHIL % 2.7 % (0.0-4.0); HEMATOCRIT 31.5 % (35.0-46.0); HEMO FLAGS DIFF FINAL; LYMPH % 15.3 % (9.0-44.0); LYMPHOCYTE # 1.6 TH/MM3 (1.0-4.8); MEAN CELL VOLUME 79.3 FL (80.0-100.0); MEAN CORPUSCULAR HEMOGLOBIN 25.4 PG (27.0-34.0); MONO % 5.3 % (0.0-8.0); NEUT % 75.8 % (16.0-70.0); PLATELET COUNT 371 TH/MM3 (150-450); RED BLOOD COUNT 3.97 MIL/MM3 (4.00-5.30); RED CELL DISTRIBUTION WIDTH 17.8 % (11.6-17.2); WHITE BLOOD COUNT 10.2 TH/MM3 (4.0-11.0)
[2017-01-01] VITALS (29 sets, daily range): BP systolic 99–160; BP diastolic 56–92; PULSE 81–109; RESP 16–25; TEMP 98.1–101.4; O2SAT 91–98
[2017-01-01] MEDS: INSULIN NovoLIN REGULAR SUPPLEMENTAL SCALE SQ SCH ×4 (01:30→19:15)
[2017-01-01] MEDS: PIPERACIL-TAZO 3.375 GM PREMIX 50 ML IV SCH ×4 (03:00→19:18)
[2017-01-01] MEDS: BROMOCRIPTINE MESYLATE 2.5 MG TAB OG-TUBE SCH ×2 (08:00→19:17)
[2017-01-01] MEDS: DOCUSATE SODIUM 100 MG/10 ML UDC PO SCH ×2 (08:00→19:18)
[2017-01-01] MEDS: ATORVASTATIN 40 MG TAB PO SCH (08:00)
[2017-01-01] MEDS: CHLORHEXIDINE 0.12% (ORAL KIT) 15 ML CUP MT SCH ×2 (08:00→19:18)
[2017-01-01] MEDS: FOLIC ACID 1 MG TAB OG-TUBE SCH (08:00)
[2017-01-01] MEDS: FAMOTIDINE 20 MG TAB NG SCH ×2 (08:00→19:17)
[2017-01-01] MEDS: LACTULOSE SYRUP 20 GM/30 ML CUP PO SCH ×2 (08:00→19:18)
[2017-01-01] MEDS: ASPIRIN 81 MG CHEW TAB NG SCH (08:00)
[2017-01-01] MEDS: SENNOSIDES SYRUP 8.8 MG/5 ML CUP PO SCH ×2 (08:01→19:18)
[2017-01-01] MEDS: POLYETHYLENE GLYCOL 17 GM PKG PO SCH (08:01)
[2017-01-01] MEDS: levETIRAcetam 500 MG/5 ML UDC NG SCH ×2 (08:01→19:17)
--- NOTE | 2017-01-01 08:11 | HHI.PR ---
Subjective Remarks Ms. Rivas is a 66-year-old female with a history of stroke who was admitted to the [facility] on 11/04/2016 due to difficulty getting her thoughts together. She was found to have multifocal nonhemorrhagic infarctions in the frontal and parietal regions. She was initially awake and following commands with weakness of RLE and some aphasia. She was transferred to [facility] where he had an cerebral angiogram consistent with moyamoya. There were plans to perform extracranial/intracranial bypass. However she had a seizure and ended up being intubated for status either 4/ or 4/.. She was found to have a new right frontal infarct area and she was started on Dilantin and Keppra and it was felt that she would not be a candidate for intervention. She has been intubated 9-10 days and apparently she has been tolerating C Pap trials to some extent but mental status prevents extubation. Treating team was discussing with family trach/PEG. Apparently family requested transfer back to [place] because they live locally here and wanted her closer to home. Patient remained under critical care medicine until 12/24/2016. 12/31: Patient stable discussed again today with Evidence Custodian continue awaiting for placement, hematology specialist and employee placement specialist following. 01/01: Seen in her bedroom in intensive Care Unit, discussed with nurse Miss Marrufo, no nausea, vomit or diarrhea, status post downgrade of her Tracheostomy tube interacts more with her surroundings, Neurology specialist Following. hematology specialist following. Objective Vital Signs Date Time Temp Pulse Resp B/P Pulse Ox O2 Delivery O2 Flow Rate FiO2 01/01/17 06:00 95 01/01/17 04:00 98.3 93 17 126/79 91 01/01/17 04:00 81 01/01/17 04:00 97 T-Piece 28 Humidified 01/01/17 02:00 81 01/01/17 00:00 97 T-Piece 28 Humidified 01/01/17 00:00 81 01/01/17 00:00 98.1 82 17 123/62 91 12/31/16 22:00 98 12/31/16 20:00 99.8 95 17 120/73 91 12/31/16 20:00 95 T-Piece 28 Humidified 12/31/16 20:00 98 12/31/16 19:15 98 T-piece 5.00 28 12/31/16 18:00 104 17 173/95 91 12/31/16 18:00 98 12/31/16 17:30 108 23 151/90 93 12/31/16 17:00 100 24 153/89 95 12/31/16 16:30 101 37 151/91 88 12/31/16 16:22 101 11 148/83 90 12/31/16 16:19 103 26 167/90 88 12/31/16 16:00 98 12/31/16 16:00 109 26 166/100 93 12/31/16 16:00 97 T-Piece 28 Humidified 12/31/16 16:00 98.3 99 18 166/100 97 12/31/16 15:00 104 20 96 12/31/16 14:00 98 12/31/16 14:00 100 21 96 12/31/16 13:00 98 20 95 12/31/16 12:00 98.3 99 18 156/94 97 12/31/16 12:00 97 T-Piece 28 Humidified 12/31/16 12:00 98 12/31/16 12:00 99 23 156/94 94 12/31/16 11:00 93 20 96 12/31/16 10:00 98 12/31/16 10:00 100 22 96 12/31/16 09:00 98 23 92 I/O 12/31/16 12/31/16 12/31/16 01/01/17 01/01/17 01/01/17 07:00 15:00 23:00 07:00 15:00 23:00 Intake Total 615 ml 574 ml 625 ml 653 ml Output Total 450 ml 525 ml 425 ml 375 ml Balance 165 ml 49 ml 200 ml 278 ml IV Total 115 ml 110 ml 125 ml 111 ml Tube Feeding 375 ml 364 ml 375 ml 417 ml Other 125 ml 100 ml 125 ml 125 ml Output Urine Total 450 ml 525 ml 425 ml 375 ml # Bowel Movements 2 2 1 1 Result Diagram: 12/31/16 2143 Imaging Last Impressions Chest X-Ray 12/31/16 0000 Signed Impressions: Service Date/Time: Saturday, December 31, 2016 19:39 - CONCLUSION: Stable cardiomegaly. Clear lungs. Peña Diana Jr., MD Brain MRI 12/17/16 0000 Signed Impressions: Service Date/Time: Saturday, December 17, 2016 21:37 - CONCLUSION: Evolving bifrontal signal changes as described Nghia Pacheco MD Abdomen X-Ray 11/26/16 0000 Signed Impressions: Service Date/Time: Saturday, November 26, 2016 10:18 - CONCLUSION: Distended stomach otherwise nonspecific abdomen. Jackson Murillo MD Procedures 11/24/2016 Percutaneous tracheostomy. Other Results Laboratory Tests Test 12/31/16 21:43 White Blood Count 10.2 TH/MM3 Red Blood Count 3.97 MIL/MM3 Hemoglobin 10.1 GM/DL Hematocrit 31.5 % Mean Corpuscular Volume 79.3 FL Mean Corpuscular Hemoglobin 25.4 PG Mean Corpuscular Hemoglobin 32.0 % Concent Red Cell Distribution Width 17.8 % Platelet Count 371 TH/MM3 Mean Platelet Volume 8.8 FL Neutrophils (%) (Auto) 75.8 % Lymphocytes (%) (Auto) 15.3 % Monocytes (%) (Auto) 5.3 % Eosinophils (%) (Auto) 2.7 % Basophils (%) (Auto) 0.9 % Neutrophils # (Auto) 7.8 TH/MM3 Lymphocytes # (Auto) 1.6 TH/MM3 Monocytes # (Auto) 0.5 TH/MM3 Eosinophils # (Auto) 0.3 TH/MM3 Basophils # (Auto) 0.1 TH/MM3 CBC Comment DIFF FINAL Differential Comment Objective Remarks GENERAL: Alert, sleepy, eyes open, does not respond to verbal commands. Currently on T piece. SKIN: Warm and dry. HEAD: Normocephalic. EYES: No scleral icterus. No injection or drainage. NECK: Supple, trachea midline. No JVD or lymphadenopathy. CARDIOVASCULAR: Regular rhythm, tachycardic without murmurs, gallops, or rubs. RESPIRATORY: Breath sounds equal bilaterally. No accessory muscle use. GASTROINTESTINAL: Abdomen soft, obese, non-tender, nondistended. PEG tube in place. MUSCULOSKELETAL: No cyanosis, or edema. Medications and IVs Current Medications Medications (Trade) Dose Ordered Sig/Ora Route Start Time Stop Time Status Last Admin (Peridex 0.12% Liq) 15 ml BID@08,20 MT 11/18/16 08:00 12/31/16 19:43 (NS Flush) 2 ml BID IV FLUSH 11/18/16 09:00 12/31/16 19:43 (Tylenol) 650 mg Q6H PRN PO 11/18/16 03:30 12/31/16 19:15 ([place] 5-325 Mg) 1 tab Q4H PRN PO 11/18/16 03:30 12/31/16 19:15 (Morphine Inj) 2 mg Q2H PRN IV 11/18/16 03:30 12/31/16 16:18 (Zofran Inj) 4 mg Q6H PRN IV 11/18/16 03:30 11/26/16 03:20 Miscellaneous Information 1 Q361D XX 11/18/16 03:30 11/18/16 03:30 (Chlorhexidine 2% Cloth) Taper DAILY@04 TOP 11/18/16 04:00 11/14/17 03:59 12/31/16 19:48 (Chlorhexidine 2% Cloth) 3 pack UNSCH PRN TOP 11/18/16 03:30 (Aspirin Chew) 324 mg DAILY NG 11/18/16 09:00 01/01/17 08:00 (Lipitor) 40 mg DAILY PO 11/18/16 09:00 01/01/17 08:00 (Parlodel) 2.5 mg Q12HR OG-TUBE 11/18/16 09:00 01/01/17 08:00 Folic Acid 1 mg 1 mg DAILY OG-TUBE 11/18/16 09:00 01/01/17 08:00 Potassium Chloride 100 ml @ 50 mls/hr Q2H PRN IV 11/18/16 13:30 (KCl 20 Meq Premix Inj) 100 ml @ 50 mls/hr Q2H PRN IV 11/18/16 13:30 11/27/16 14:13 Potassium Bicarb/ Potassium Chloride 50 meq 50 meq UNSCH PRN PO 11/18/16 13:30 11/29/16 06:20 Potassium Chloride 100 ml @ 25 mls/hr UNSCH PRN IV 11/18/16 13:30 Potassium Chloride 100 ml @ 50 mls/hr Q2H PRN IV 11/18/16 13:30 11/24/16 06:27 (Magnesium Sulfate Inj/NS Inj) 100 ml @ 50 mls/hr UNSCH PRN IV 11/18/16 13:30 Magnesium Oxide 800 mg 800 mg UNSCH PRN PO 11/18/16 13:30 (Magnesium Sulfate Inj/NS Inj) 100 ml @ 50 mls/hr UNSCH PRN IV 11/18/16 13:30 Potassium Phosphate 2000 mg 2,000 mg Q4H PRN PO 11/18/16 13:30 (Sodium Phosphate Inj/NS 250 ml Inj) 250 ml @ 42 mls/hr UNSCH PRN IV 11/18/16 13:30 Potassium Phosphate 2000 mg 2,000 mg UNSCH PRN PO/TUBE 11/18/16 13:30 (Potassium Phosphate Inj/NS 250 ml Inj) 260 ml @ 42 mls/hr UNSCH PRN IV 11/18/16 13:30 (Senna Liq) 8.8 mg BID PO 11/19/16 21:00 01/01/17 08:01 (Colace Liq) 100 mg Q12HR PO 11/19/16 21:00 01/01/17 08:00 (Miralax) 17 gm DAILY PO 11/21/16 18:00 01/01/17 08:01 (D50w (Vial) Inj) 25 ml UNSCH PRN IV PUSH 11/22/16 08:00 (Glucagon Inj) 1 mg UNSCH PRN OTHER 11/22/16 08:00 (NovoLIN R SUPPLEMENTAL SCALE) 1 Q6H SQ 11/22/16 08:00 01/01/17 01:30 (Lopressor Inj) 5 mg Q6H PRN IV PUSH 11/23/16 22:45 (Lactulose Liq) 15 ml BID PO 11/26/16 09:00 01/01/17 08:00 Bisacodyl 10 mg 10 mg DAILY PRN RECTAL 12/14/16 15:45 (Zosyn 3.375 Gm Premix) 50 ml @ 100 mls/hr Q6H IV 12/19/16 10:00 01/01/17 03:00 (Pepcid) 20 mg BID NG 12/21/16 21:00 01/01/17 08:00 (Keppra Liq) 1,500 mg Q12HR NG 12/21/16 21:00 01/01/17 08:01 (Levsin Liq) 0.125 mg Q4H PRN PO 12/28/16 07:15 A/P Assessment and Plan - Bilateral frontal CVA - Moyamoya - confirmed by arteriogram at [facility] October 2016. - Seizure disorder Noted significant JOE/MCA disease bilaterally from previous imaging of brain Keppra 1500 mg switch to by PEG twice a day for seizures Continue ASA 324 mg daily, atorvastatin 40 mg by mouth daily Continue bromocriptine 2.5 mg by mouth BID EEG-noted sharp spikes Neurology is following at a distance-Dr. Flores Has been evaluated tertiary care center [place] and felt to not be a candidate for further intervention. - COPD stable - Acute respiratory failure - currently on T piece. - Multilobar pneumonia Status post tracheostomy on 11/24/2016. Pulmonary following. Continue Zosyn 3.375 g every 6 hours DuoNeb when necessary - Nutrition - continue Jevity 1.5 through PEG tube. Full code. SCDs. Famotidine twice a day Status post Downgrade of her Tracheostomy tube, next step to cap it. Discharge Planning Discussed with Patient in the room and Nurse Miss Marrufo. Adrian Chang MD January 01, 2017 08:11
[2017-01-01] MEDS: ACETAMINOPHEN/HYDROcodone 325 MG/5 MG TAB PO PRN (08:14)
[2017-01-01] MEDS: SODIUM CHLORIDE 0.9% FLUSH 10 ML FLUSH IV FLUSH SCH ×2 (09:00→19:18)
--- NOTE | 2017-01-01 12:10 | HHI.PR ---
Objective Vital Signs Date Time Temp Pulse Resp B/P Pulse Ox O2 Delivery O2 Flow Rate FiO2 01/01/17 10:00 98 01/01/17 09:39 97 T-Piece 28 Humidified 01/01/17 08:46 98 T-piece 6.00 28 01/01/17 08:00 97 T-Piece 28 Humidified 01/01/17 08:00 98 01/01/17 08:00 98.8 107 18 160/90 95 01/01/17 06:00 95 01/01/17 04:00 98.3 93 17 126/79 91 01/01/17 04:00 81 01/01/17 04:00 97 T-Piece 28 Humidified 01/01/17 02:00 81 01/01/17 00:00 97 T-Piece 28 Humidified 01/01/17 00:00 81 01/01/17 00:00 98.1 82 17 123/62 91 12/31/16 22:00 98 12/31/16 20:00 99.8 95 17 120/73 91 12/31/16 20:00 95 T-Piece 28 Humidified 12/31/16 20:00 98 12/31/16 19:15 98 T-piece 5.00 28 12/31/16 18:00 104 17 173/95 91 12/31/16 18:00 98 12/31/16 17:30 108 23 151/90 93 12/31/16 17:00 100 24 153/89 95 12/31/16 16:30 101 37 151/91 88 12/31/16 16:22 101 11 148/83 90 12/31/16 16:19 103 26 167/90 88 12/31/16 16:00 98 12/31/16 16:00 109 26 166/100 93 12/31/16 16:00 97 T-Piece 28 Humidified 12/31/16 16:00 98.3 99 18 166/100 97 12/31/16 15:00 104 20 96 12/31/16 14:00 98 12/31/16 14:00 100 21 96 12/31/16 13:00 98 20 95 I/O 12/31/16 12/31/16 12/31/16 01/01/17 01/01/17 01/01/17 07:00 15:00 23:00 07:00 15:00 23:00 Intake Total 615 ml 574 ml 625 ml 653 ml Output Total 450 ml 525 ml 425 ml 375 ml Balance 165 ml 49 ml 200 ml 278 ml IV Total 115 ml 110 ml 125 ml 111 ml Tube Feeding 375 ml 364 ml 375 ml 417 ml Other 125 ml 100 ml 125 ml 125 ml Output Urine Total 450 ml 525 ml 425 ml 375 ml # Bowel Movements 2 2 1 1 Result Diagram: 12/31/16 2143 Procedures 11/24/2016 Percutaneous tracheostomy. Objective Remarks not following commands pupils = does moves eyes around and tracks me and rxt to threat nl no command following no change Assessment and Plan Assessment and Plan imp huge r frontal cva and inc size left frontal cva may eventually awaken and interact more mri no change resolving cva eeg some left sharps stay on keppra no anticoag now due to size of cva trached and pegged I THINK SHE LOOKS BETTER AND EVENTUALLY MAY INTERACT MORE AND SPEAK WE WILL HAVE TO WAIT AND SEE SOME DAMAGE TO LANGUAGE AREA IN FRONT I THINK BY MRI no change here Terrence Flores MD January 01, 2017 12:10
[2017-01-01] MEDS: MORPHINE SULFATE 4 MG/ML INJ IV PRN (14:33)
[2017-01-01] MEDS: ACETAMINOPHEN 325 MG TAB PO PRN (16:01)
--- NOTE | 2017-01-01 16:12 | HHI.PR ---
Subjective Remarks 66 YOWF with Rf, s/p trach H/O CVA,Arango Arango disease On trach collar Awake, does't follow commands No fever Trach changed to size 6 Objective Vital Signs Vital Signs Date Time Temp Pulse Resp B/P Pulse Ox O2 Delivery O2 Flow Rate FiO2 01/01/17 14:00 98 01/01/17 12:00 98 01/01/17 12:00 101.4 109 18 144/84 97 01/01/17 12:00 97 T-Piece 28 Humidified 01/01/17 10:30 98 6.00 28 01/01/17 10:00 98 01/01/17 09:39 97 T-Piece 28 Humidified 01/01/17 08:46 98 T-piece 6.00 28 01/01/17 08:01 98 01/01/17 08:01 100.4 107 18 160/90 95 01/01/17 08:01 97 T-Piece 28 Humidified 01/01/17 08:00 97 T-Piece 28 Humidified 01/01/17 08:00 98 01/01/17 08:00 98.8 107 18 160/90 95 01/01/17 06:00 95 01/01/17 04:00 98.3 93 17 126/79 91 01/01/17 04:00 81 01/01/17 04:00 97 T-Piece 28 Humidified 01/01/17 02:00 81 01/01/17 00:00 97 T-Piece 28 Humidified 01/01/17 00:00 81 01/01/17 00:00 98.1 82 17 123/62 91 12/31/16 22:00 98 12/31/16 20:00 99.8 95 17 120/73 91 12/31/16 20:00 95 T-Piece 28 Humidified 12/31/16 20:00 98 12/31/16 19:15 98 T-piece 5.00 28 12/31/16 18:00 104 17 173/95 91 12/31/16 18:00 98 12/31/16 17:30 108 23 151/90 93 12/31/16 17:00 100 24 153/89 95 12/31/16 16:30 101 37 151/91 88 12/31/16 16:22 101 11 148/83 90 12/31/16 16:19 103 26 167/90 88 I/O 12/31/16 12/31/16 12/31/16 01/01/17 01/01/17 01/01/17 07:00 15:00 23:00 07:00 15:00 23:00 Intake Total 615 ml 574 ml 625 ml 653 ml 836 ml Output Total 450 ml 525 ml 425 ml 375 ml 450 ml Balance 165 ml 49 ml 200 ml 278 ml 386 ml IV Total 115 ml 110 ml 125 ml 111 ml 150 ml Tube Feeding 375 ml 364 ml 375 ml 417 ml 586 ml Other 125 ml 100 ml 125 ml 125 ml 100 ml Output Urine Total 450 ml 525 ml 425 ml 375 ml 450 ml # Bowel Movements 2 2 1 1 1 Result Diagram: 12/31/162142 Objective Remarks GENERAL: MBMN WF, on Trach collar SKIN: Warm and dry. HEAD: Normocephalic. EYES: No scleral icterus. No injection or drainage. NECK: Supple, trachea midline. No JVD or lymphadenopathy. has trach CARDIOVASCULAR: Regular rate and rhythm without murmurs, gallops, or rubs. RESPIRATORY: Breath sounds equal bilaterally. No accessory muscle use. GASTROINTESTINAL: Abdomen soft, non-tender, nondistended. has PEG MUSCULOSKELETAL: No cyanosis, or edema. BACK: Nontender without obvious deformity. No CVA tenderness. A/P Assessment and Plan RF, S/P Trach CVA Arango arango disease CAD COPD PLAN: Aerosol nebs Cont trach collar supplement 02 Cont TF Vernon Catalan RN, MD January 01, 2017 16:12
[2017-01-01] MEDS: RESP: ALBUTEROL 2.5 MG/3 ML NEB (PRN) INH (20:44)
[2017-01-01] MEDS: CHLORHEXIDINE GLUCONATE 2 % 1 PACK (2 CLOTHS) TOP SCH (21:38)
[2017-01-02] VITALS (14 sets, daily range): BP systolic 129–161; BP diastolic 65–87; PULSE 89–111; RESP 15–18; TEMP 98.3–100.5; O2SAT 93–97
[2017-01-02] MEDS: INSULIN NovoLIN REGULAR SUPPLEMENTAL SCALE SQ SCH ×4 (01:17→20:00)
[2017-01-02] MEDS: PIPERACIL-TAZO 3.375 GM PREMIX 50 ML IV SCH ×4 (01:36→21:43)
[2017-01-02] MEDS: CHLORHEXIDINE 0.12% (ORAL KIT) 15 ML CUP MT SCH ×2 (08:00→21:39)
--- NOTE | 2017-01-02 08:08 | HHI.PR ---
Subjective Remarks Ms. Rivas is a 66-year-old female with a history of stroke who was admitted to the [facility] on 11/04/2016 due to difficulty getting her thoughts together. She was found to have multifocal nonhemorrhagic infarctions in the frontal and parietal regions. She was initially awake and following commands with weakness of RLE and some aphasia. She was transferred to [facility] where he had an cerebral angiogram consistent with moyamoya. There were plans to perform extracranial/intracranial bypass. However she had a seizure and ended up being intubated for status either 11/09 or 11/10.. She was found to have a new right frontal infarct area and she was started on Dilantin and Keppra and it was felt that she would not be a candidate for intervention. She has been intubated 9-10 days and apparently she has been tolerating C Pap trials to some extent but mental status prevents extubation. Treating team was discussing with family trach/PEG. Apparently family requested transfer back to [place] because they live locally here and wanted her closer to home. Patient remained under critical care medicine until 12/24/2016. 12/31: Patient stable discussed again today with Installment Account Checker continue awaiting for placement, microchip specialist and relations specialist following. 01/01: Seen in her bedroom in intensive Care Unit, discussed with nurse Miss Marrufo, status post downgrade of her Tracheostomy tube interacts more with her surroundings, Neurology specialist Following. microchip specialist following. 01/02: Seen in Intensive Care unit, discussed with nurse Miss Bhakta no changes to anterior assessments, she is not having nausea, vomit or diarrhea. Objective Vital Signs Date Time Temp Pulse Resp B/P Pulse Ox O2 Delivery O2 Flow Rate FiO2 01/02/17 06:00 103 01/02/17 04:00 103 01/02/17 04:00 98.7 105 18 130/87 97 01/02/17 04:00 95 T-Piece Humidified 01/02/17 02:00 103 01/02/17 00:00 103 01/02/17 00:00 98.3 89 18 129/65 97 01/02/17 00:00 97 T-Piece 28 Humidified 01/01/17 22:00 103 01/01/17 20:45 95 T-piece 28 01/01/17 20:00 103 01/01/17 20:00 98.7 103 18 141/73 97 01/01/17 20:00 95 T-Piece 28 Humidified 01/01/17 18:00 98 01/01/17 16:30 93 16 129/76 94 01/01/17 16:00 98 01/01/17 16:00 98.9 94 18 99/56 97 01/01/17 16:00 98 19 132/86 92 01/01/17 16:00 97 T-Piece 28 Humidified 01/01/17 15:30 101 20 138/89 91 01/01/17 15:00 96 17 121/69 92 01/01/17 14:30 106 24 142/88 91 01/01/17 14:00 98 01/01/17 14:00 107 24 153/92 94 01/01/17 13:30 102 22 155/72 94 01/01/17 13:00 107 24 147/79 93 01/01/17 12:30 105 24 144/84 94 01/01/17 12:00 98 01/01/17 12:00 101.4 109 18 144/84 97 01/01/17 12:00 106 23 140/88 94 01/01/17 12:00 97 T-Piece 28 Humidified 01/01/17 11:30 101 24 143/86 93 01/01/17 11:00 105 22 143/76 94 01/01/17 10:30 98 6.00 28 01/01/17 10:30 101 23 151/85 94 01/01/17 10:00 98 01/01/17 10:00 94 16 134/76 96 01/01/17 09:39 97 T-Piece 28 Humidified 01/01/17 09:30 101 25 141/86 95 01/01/17 09:23 101 22 145/84 94 01/01/17 09:00 101 22 160/90 95 01/01/17 08:46 98 T-piece 6.00 28 01/01/17 08:30 94 20 145/88 94 I/O 01/01/17 01/01/17 01/01/17 01/02/17 01/02/17 01/02/17 07:00 15:00 23:00 07:00 15:00 23:00 Intake Total 653 ml 836 ml 722 ml 636 ml Output Total 375 ml 450 ml 450 ml 375 ml Balance 278 ml 386 ml 272 ml 261 ml IV Total 111 ml 150 ml 147 ml 111 ml Tube Feeding 417 ml 586 ml 475 ml 425 ml Other 125 ml 100 ml 100 ml 100 ml Output Urine Total 375 ml 450 ml 450 ml 375 ml # Bowel Movements 1 1 1 2 Result Diagram: 12/31/16 2143 Imaging Last Impressions Chest X-Ray 12/31/16 0000 Signed Impressions: Service Date/Time: Saturday, December 31, 2016 19:39 - CONCLUSION: Stable cardiomegaly. Clear lungs. Peña Diana Jr., MD Brain MRI 12/17/16 0000 Signed Impressions: Service Date/Time: Saturday, December 17, 2016 21:37 - CONCLUSION: Evolving bifrontal signal changes as described Nghia Pacheco MD Abdomen X-Ray 11/26/16 0000 Signed Impressions: Service Date/Time: Saturday, November 26, 2016 10:18 - CONCLUSION: Distended stomach otherwise nonspecific abdomen. K. David Murillo MD Procedures 11/24/2016 Percutaneous tracheostomy. Other Results Laboratory Tests Test 12/31/16 21:43 White Blood Count 10.2 TH/MM3 Red Blood Count 3.97 MIL/MM3 Hemoglobin 10.1 GM/DL Hematocrit 31.5 % Mean Corpuscular Volume 79.3 FL Mean Corpuscular Hemoglobin 25.4 PG Mean Corpuscular Hemoglobin 32.0 % Concent Red Cell Distribution Width 17.8 % Platelet Count 371 TH/MM3 Mean Platelet Volume 8.8 FL Neutrophils (%) (Auto) 75.8 % Lymphocytes (%) (Auto) 15.3 % Monocytes (%) (Auto) 5.3 % Eosinophils (%) (Auto) 2.7 % Basophils (%) (Auto) 0.9 % Neutrophils # (Auto) 7.8 TH/MM3 Lymphocytes # (Auto) 1.6 TH/MM3 Monocytes # (Auto) 0.5 TH/MM3 Eosinophils # (Auto) 0.3 TH/MM3 Basophils # (Auto) 0.1 TH/MM3 CBC Comment DIFF FINAL Differential Comment Objective Remarks GENERAL: Alert, sleepy, eyes open, does not respond to verbal commands. Currently on T piece. SKIN: Warm and dry. HEAD: Normocephalic. EYES: No scleral icterus. No injection or drainage. NECK: Supple, trachea midline. No JVD or lymphadenopathy. CARDIOVASCULAR: Regular rhythm, tachycardic without murmurs, gallops, or rubs. RESPIRATORY: Breath sounds equal bilaterally. No accessory muscle use. GASTROINTESTINAL: Abdomen soft, obese, non-tender, nondistended. PEG tube in place. MUSCULOSKELETAL: No cyanosis, or edema. Medications and IVs Current Medications Medications (Trade) Dose Ordered Sig/Ora Route Start Time Stop Time Status Last Admin (Peridex 0.12% Liq) 15 ml BID@08,20 MT 11/18/16 08:00 01/01/17 19:18 (NS Flush) 2 ml BID IV FLUSH 11/18/16 09:00 01/01/17 19:18 (Tylenol) 650 mg Q6H PRN PO 11/18/16 03:30 01/01/17 16:01 ([place] 5-325 Mg) 1 tab Q4H PRN PO 11/18/16 03:30 01/01/17 08:14 (Morphine Inj) 2 mg Q2H PRN IV 11/18/16 03:30 01/01/17 14:33 (Zofran Inj) 4 mg Q6H PRN IV 11/18/16 03:30 11/26/16 03:20 Miscellaneous Information 1 Q361D XX 11/18/16 03:30 11/18/16 03:30 (Chlorhexidine 2% Cloth) Taper DAILY@04 TOP 11/18/16 04:00 11/14/17 03:59 01/01/17 21:38 (Chlorhexidine 2% Cloth) 3 pack UNSCH PRN TOP 11/18/16 03:30 (Aspirin Chew) 324 mg DAILY NG 11/18/16 09:00 01/01/17 08:00 (Lipitor) 40 mg DAILY PO 11/18/16 09:00 01/01/17 08:00 (Parlodel) 2.5 mg Q12HR OG-TUBE 11/18/16 09:00 01/01/17 19:17 Folic Acid 1 mg 1 mg DAILY OG-TUBE 11/18/16 09:00 01/01/17 08:00 Potassium Chloride 100 ml @ 50 mls/hr Q2H PRN IV 11/18/16 13:30 (KCl 20 Meq Premix Inj) 100 ml @ 50 mls/hr Q2H PRN IV 11/18/16 13:30 11/27/16 14:13 Potassium Bicarb/ Potassium Chloride 50 meq 50 meq UNSCH PRN PO 11/18/16 13:30 11/29/16 06:20 Potassium Chloride 100 ml @ 25 mls/hr UNSCH PRN IV 11/18/16 13:30 Potassium Chloride 100 ml @ 50 mls/hr Q2H PRN IV 11/18/16 13:30 11/24/16 06:27 (Magnesium Sulfate Inj/NS Inj) 100 ml @ 50 mls/hr UNSCH PRN IV 11/18/16 13:30 Magnesium Oxide 800 mg 800 mg UNSCH PRN PO 11/18/16 13:30 (Magnesium Sulfate Inj/NS Inj) 100 ml @ 50 mls/hr UNSCH PRN IV 11/18/16 13:30 Potassium Phosphate 2000 mg 2,000 mg Q4H PRN PO 11/18/16 13:30 (Sodium Phosphate Inj/NS 250 ml Inj) 250 ml @ 42 mls/hr UNSCH PRN IV 11/18/16 13:30 Potassium Phosphate 2000 mg 2,000 mg UNSCH PRN PO/TUBE 11/18/16 13:30 (Potassium Phosphate Inj/NS 250 ml Inj) 260 ml @ 42 mls/hr UNSCH PRN IV 11/18/16 13:30 (Senna Liq) 8.8 mg BID PO 11/19/16 21:00 01/01/17 19:18 (Colace Liq) 100 mg Q12HR PO 11/19/16 21:00 01/01/17 19:18 (Miralax) 17 gm DAILY PO 11/21/16 18:00 01/01/17 08:01 (D50w (Vial) Inj) 25 ml UNSCH PRN IV PUSH 11/22/16 08:00 (Glucagon Inj) 1 mg UNSCH PRN OTHER 11/22/16 08:00 (NovoLIN R SUPPLEMENTAL SCALE) 1 Q6H SQ 11/22/16 08:00 01/02/17 01:17 (Lopressor Inj) 5 mg Q6H PRN IV PUSH 11/23/16 22:45 (Lactulose Liq) 15 ml BID PO 11/26/16 09:00 01/01/17 19:18 Bisacodyl 10 mg 10 mg DAILY PRN RECTAL 12/14/16 15:45 (Zosyn 3.375 Gm Premix) 50 ml @ 100 mls/hr Q6H IV 12/19/16 10:00 01/02/17 01:36 (Pepcid) 20 mg BID NG 12/21/16 21:00 01/01/17 19:17 (Keppra Liq) 1,500 mg Q12HR NG 12/21/16 21:00 01/01/17 19:17 (Levsin Liq) 0.125 mg Q4H PRN PO 12/28/16 07:15 A/P Assessment and Plan - Bilateral frontal CVA - Moyamoya - confirmed by arteriogram at [facility] October 2016. - Seizure disorder Noted significant JOE/MCA disease bilaterally from previous imaging of brain Keppra 1500 mg switch to by PEG twice a day for seizures Continue ASA 324 mg daily, atorvastatin 40 mg by mouth daily Continue bromocriptine 2.5 mg by mouth BID EEG-noted sharp spikes Neurology is following at a distance-Dr. Flroes Has been evaluated tertiary care center [place] and felt to not be a candidate for further intervention. - COPD stable - Acute respiratory failure - currently on T piece. decreased Tracheostomy tube size by microchip specialist. - Multilobar pneumonia Status post tracheostomy on 11/24/2016. Pulmonary following. Continue Zosyn 3.375 g every 6 hours DuoNeb when necessary -Anemia iron deficiency stable will give Iron IV. - Nutrition - continue Jevity 1.5 through PEG tube. Full code. SCDs. Famotidine twice a day Status post Downgrade of her Tracheostomy tube, next step to cap it. No changes to anterior assessment. Laboratory was reviewed. Discharge Planning Discussed with Patient in the room and Nurse Adrian Ni MD January 02, 2017 08:08
[2017-01-02] MEDS: SODIUM CHLORIDE 0.9% FLUSH 10 ML FLUSH IV FLUSH SCH ×2 (09:00→21:37)
[2017-01-02 09:26] LABS: BICARBONATE 28.9 MEQ/L (21.0-32.0); MAGNESIUM 2.4 MG/DL (1.5-2.5); POTASSIUM 3.9 MEQ/L (3.5-5.1)
[2017-01-02] MEDS: levETIRAcetam 500 MG/5 ML UDC NG SCH ×2 (09:28→21:37)
[2017-01-02] MEDS: FOLIC ACID 1 MG TAB OG-TUBE SCH (09:29)
[2017-01-02] MEDS: LACTULOSE SYRUP 20 GM/30 ML CUP PO SCH ×2 (09:29→21:38)
[2017-01-02] MEDS: ASPIRIN 81 MG CHEW TAB NG SCH (09:29)
[2017-01-02] MEDS: FAMOTIDINE 20 MG TAB NG SCH ×2 (09:29→21:37)
[2017-01-02] MEDS: POLYETHYLENE GLYCOL 17 GM PKG PO SCH (09:29)
[2017-01-02] MEDS: SENNOSIDES SYRUP 8.8 MG/5 ML CUP PO SCH ×2 (09:29→21:38)
[2017-01-02] MEDS: BROMOCRIPTINE MESYLATE 2.5 MG TAB OG-TUBE SCH ×2 (09:29→21:43)
[2017-01-02] MEDS: DOCUSATE SODIUM 100 MG/10 ML UDC PO SCH ×2 (09:29→21:37)
[2017-01-02] MEDS: ATORVASTATIN 40 MG TAB PO SCH (09:29)
[2017-01-02] MEDS: IRON SUCROSE INJ 100 MG in SODIUM CHLORIDE 0.9% INJ 100 ML IV SCH (16:45)
--- NOTE | 2017-01-02 19:05 | HHI.PR ---
Subjective Remarks 66 YOWF with Rf, s/p trach H/O CVA,Arango Arango disease On trach collar Awake, does't follow commands No fever. Objective Vital Signs Vital Signs Date Time Temp Pulse Resp B/P Pulse Ox O2 Delivery O2 Flow Rate FiO2 01/02/17 18:00 103 01/02/17 16:00 111 01/02/17 16:00 98.5 102 15 161/85 95 01/02/17 16:00 94 T-Piece 28 Humidified 01/02/17 14:00 102 01/02/17 12:00 95 T-Piece 28 Humidified 01/02/17 12:00 98.5 104 16 150/80 93 01/02/17 12:00 104 01/02/17 10:00 104 01/02/17 09:20 97 T-piece 28 01/02/17 08:00 96 T-Piece 28 Humidified 01/02/17 08:00 98.3 107 17 146/86 95 01/02/17 08:00 110 01/02/17 06:00 103 01/02/17 04:00 103 01/02/17 04:00 98.7 105 18 130/87 97 01/02/17 04:00 95 T-Piece 28 Humidified 01/02/17 02:00 103 01/02/17 00:00 103 01/02/17 00:00 98.3 89 18 129/65 97 01/02/17 00:00 97 T-Piece 28 Humidified 01/01/17 22:00 103 01/01/17 20:45 95 T-piece 28 01/01/17 20:00 103 01/01/17 20:00 98.7 103 18 141/73 97 01/01/17 20:00 95 T-Piece 28 Humidified I/O 01/01/17 01/01/17 01/01/17 01/02/17 01/02/17 01/02/17 07:00 15:00 23:00 07:00 15:00 23:00 Intake Total 653 ml 836 ml 722 ml 636 ml 960 ml Output Total 375 ml 450 ml 450 ml 375 ml 650 ml Balance 278 ml 386 ml 272 ml 261 ml 310 ml IV Total 111 ml 150 ml 147 ml 111 ml 180 ml Tube Feeding 417 ml 586 ml 475 ml 425 ml 780 ml Other 125 ml 100 ml 100 ml 100 ml Output Urine Total 375 ml 450 ml 450 ml 375 ml 650 ml # Bowel Movements 1 1 1 2 1 Result Diagram: 12/31/16 2143 01/02/17 0844 Objective Remarks GENERAL: MBMN WF, on Trach collar SKIN: Warm and dry. HEAD: Normocephalic. EYES: No scleral icterus. No injection or drainage. NECK: Supple, trachea midline. No JVD or lymphadenopathy. has trach CARDIOVASCULAR: Regular rate and rhythm without murmurs, gallops, or rubs. RESPIRATORY: Breath sounds equal bilaterally. No accessory muscle use. GASTROINTESTINAL: Abdomen soft, non-tender, nondistended. has PEG MUSCULOSKELETAL: No cyanosis, or edema. BACK: Nontender without obvious deformity. No CVA tenderness. A/P Assessment and Plan RF, S/P Trach CVA Arango arango disease CAD COPD PLAN: Aerosol nebs Cont trach collar supplement 02 Cont TF DW Vernon Wagner MD January 02, 2017 19:05
[2017-01-02] MEDS: ACETAMINOPHEN/HYDROcodone 325 MG/5 MG TAB PO PRN (22:19)
[2017-01-03] VITALS (31 sets, daily range): BP systolic 133–160; BP diastolic 73–109; PULSE 79–121; RESP 16–29; TEMP 97.9–98.7; O2SAT 84–96
[2017-01-03] MEDS: INSULIN NovoLIN REGULAR SUPPLEMENTAL SCALE SQ SCH ×4 (02:00→20:00)
[2017-01-03] MEDS: PIPERACIL-TAZO 3.375 GM PREMIX 50 ML IV SCH ×4 (03:26→21:36)
[2017-01-03] MEDS: CHLORHEXIDINE GLUCONATE 2 % 1 PACK (2 CLOTHS) TOP SCH (04:00)
[2017-01-03] MEDS: ASPIRIN 81 MG CHEW TAB NG SCH (09:00)
[2017-01-03] MEDS: SODIUM CHLORIDE 0.9% FLUSH 10 ML FLUSH IV FLUSH SCH ×2 (09:00→21:35)
[2017-01-03] MEDS: SENNOSIDES SYRUP 8.8 MG/5 ML CUP PO SCH ×2 (09:00→21:35)
[2017-01-03] MEDS: POLYETHYLENE GLYCOL 17 GM PKG PO SCH (10:01)
[2017-01-03] MEDS: DOCUSATE SODIUM 100 MG/10 ML UDC PO SCH ×2 (10:01→21:35)
[2017-01-03] MEDS: levETIRAcetam 500 MG/5 ML UDC NG SCH ×2 (10:01→21:35)
[2017-01-03] MEDS: FOLIC ACID 1 MG TAB OG-TUBE SCH (10:01)
[2017-01-03] MEDS: LACTULOSE SYRUP 20 GM/30 ML CUP PO SCH ×2 (10:01→21:35)
[2017-01-03] MEDS: ATORVASTATIN 40 MG TAB PO SCH (10:02)
[2017-01-03] MEDS: CHLORHEXIDINE 0.12% (ORAL KIT) 15 ML CUP MT SCH ×2 (10:02→21:33)
[2017-01-03] MEDS: FAMOTIDINE 20 MG TAB NG SCH ×2 (10:02→21:35)
[2017-01-03] MEDS: BROMOCRIPTINE MESYLATE 2.5 MG TAB OG-TUBE SCH ×2 (10:02→21:38)
--- NOTE | 2017-01-03 13:03 | HHI.PR ---
Subjective Remarks Ms. Rivas is a 66-year-old female with a history of stroke who was admitted to the [facility] on 11/04/2016 due to difficulty getting her thoughts together. She was found to have multifocal nonhemorrhagic infarctions in the frontal and parietal regions. She was initially awake and following commands with weakness of RLE and some aphasia. She was transferred to [facility] where he had an cerebral angiogram consistent with moyamoya. There were plans to perform extracranial/intracranial bypass. However she had a seizure and ended up being intubated for status either 11/09 or 11/10.. She was found to have a new right frontal infarct area and she was started on Dilantin and Keppra and it was felt that she would not be a candidate for intervention. She has been intubated 9-10 days and apparently she has been tolerating C Pap trials to some extent but mental status prevents extubation. Treating team was discussing with family trach/PEG. Apparently family requested transfer back to [place] because they live locally here and wanted her closer to home. Patient remained under critical care medicine until 12/24/2016. 12/31: Patient stable discussed again today with Account Executive Sales Representative continue awaiting for placement, web marketing specialist and energy conservation specialist following. 01/01: Seen in her bedroom in intensive Care Unit, discussed with nurse Miss Marrufo, status post downgrade of her Tracheostomy tube interacts more with her surroundings, Neurology specialist Following. web marketing specialist following. 01/02: Seen in Intensive Care unit. 01/03: stable no changes discussed with nurse Objective Vital Signs Date Time Temp Pulse Resp B/P Pulse Ox O2 Delivery O2 Flow Rate FiO2 01/03/17 10:00 88 01/03/17 08:00 102 01/03/17 08:00 96 T-Piece 28 Humidified 01/03/17 07:52 94 T-piece 6.00 28 01/03/17 06:30 97 19 138/73 93 01/03/17 06:15 105 23 94 01/03/17 06:00 112 01/03/17 06:00 112 22 160/86 94 01/03/17 05:45 121 28 84 01/03/17 05:30 101 29 140/109 91 01/03/17 05:15 101 22 93 01/03/17 05:00 100 22 147/84 93 01/03/17 04:45 99 22 94 01/03/17 04:30 98 23 149/80 93 01/03/17 04:15 90 18 90 01/03/17 04:00 96 T-Piece 28 Humidified 01/03/17 04:00 95 21 147/81 92 01/03/17 04:00 95 01/03/17 04:00 98.5 01/03/17 03:45 96 20 93 01/03/17 03:30 98 23 146/81 93 01/03/17 03:15 99 21 92 01/03/17 03:00 100 25 155/82 93 01/03/17 02:45 99 23 94 01/03/17 02:30 97 21 148/82 91 01/03/17 02:30 97 21 148/82 91 01/03/17 02:00 99 24 150/84 94 01/03/17 01:30 99 22 153/81 92 01/03/17 01:00 100 23 150/80 93 01/03/17 00:30 100 22 146/73 90 01/03/17 00:00 97 T-Piece 28 Humidified 01/03/17 00:00 101 01/03/17 00:00 97.9 101 16 146/74 93 01/03/17 00:00 101 24 146/74 93 01/02/17 22:00 104 01/02/17 20:44 97 T-piece 6.00 01/02/17 20:00 96 T-Piece 28 Humidified 01/02/17 20:00 106 01/02/17 20:00 100.5 106 17 161/86 94 01/02/17 18:00 103 01/02/17 16:00 111 01/02/17 16:00 98.5 102 15 161/85 95 01/02/17 16:00 94 T-Piece 28 Humidified 01/02/17 14:00 102 I/O 01/02/17 01/02/17 01/02/17 01/03/17 01/03/17 01/03/17 07:00 15:00 23:00 07:00 15:00 23:00 Intake Total 636 ml 960 ml 704 ml 588 ml Output Total 375 ml 650 ml 275 ml 500 ml Balance 261 ml 310 ml 429 ml 88 ml IV Total 111 ml 180 ml 228 ml 50 ml Tube Feeding 425 ml 780 ml 326 ml 438 ml Other 100 ml 150 ml 100 ml Output Urine Total 375 ml 650 ml 275 ml 500 ml # Bowel Movements 2 1 1 Result Diagram: 12/31/16 2143 01/02/17 0844 Imaging Last Impressions Chest X-Ray 12/31/16 0000 Signed Impressions: Service Date/Time: Saturday, December 31, 2016 19:39 - CONCLUSION: Stable cardiomegaly. Clear lungs. Peña Diana Jr., MD Brain MRI 12/17/16 0000 Signed Impressions: Service Date/Time: Saturday, December 17, 2016 21:37 - CONCLUSION: Evolving bifrontal signal changes as described Nghia Pacheco MD Abdomen X-Ray 11/26/16 0000 Signed Impressions: Service Date/Time: Saturday, November 26, 2016 10:18 - CONCLUSION: Distended stomach otherwise nonspecific abdomen. Jackson Murillo MD Procedures 11/24/2016 Percutaneous tracheostomy. Other Results Laboratory Tests Test 12/31/16 01/02/17 21:43 08:44 White Blood Count 10.2 TH/MM3 Red Blood Count 3.97 MIL/MM3 Hemoglobin 10.1 GM/DL Hematocrit 31.5 % Mean Corpuscular Volume 79.3 FL Mean Corpuscular Hemoglobin 25.4 PG Mean Corpuscular Hemoglobin 32.0 % Concent Red Cell Distribution Width 17.8 % Platelet Count 371 TH/MM3 Mean Platelet Volume 8.8 FL Neutrophils (%) (Auto) 75.8 % Lymphocytes (%) (Auto) 15.3 % Monocytes (%) (Auto) 5.3 % Eosinophils (%) (Auto) 2.7 % Basophils (%) (Auto) 0.9 % Neutrophils # (Auto) 7.8 TH/MM3 Lymphocytes # (Auto) 1.6 TH/MM3 Monocytes # (Auto) 0.5 TH/MM3 Eosinophils # (Auto) 0.3 TH/MM3 Basophils # (Auto) 0.1 TH/MM3 CBC Comment DIFF FINAL Differential Comment Sodium Level 146 MEQ/L Potassium Level 3.9 MEQ/L Chloride Level 110 MEQ/L Carbon Dioxide Level 28.9 MEQ/L Anion Gap 7 MEQ/L Blood Urea Nitrogen 22 MG/DL Creatinine 0.48 MG/DL Estimat Glomerular Filtration 130 ML/MIN Rate Random Glucose 144 MG/DL Calcium Level 9.0 MG/DL Phosphorus Level 3.1 MG/DL Magnesium Level 2.4 MG/DL Objective Remarks GENERAL: Alert, sleepy, eyes open, does not respond to verbal commands. Currently on T piece. SKIN: Warm and dry. HEAD: Normocephalic. EYES: No scleral icterus. No injection or drainage. NECK: Supple, trachea midline. No JVD or lymphadenopathy. CARDIOVASCULAR: Regular rhythm, tachycardic without murmurs, gallops, or rubs. RESPIRATORY: Breath sounds equal bilaterally. No accessory muscle use. GASTROINTESTINAL: Abdomen soft, obese, non-tender, nondistended. PEG tube in place. MUSCULOSKELETAL: No cyanosis, or edema. Medications and IVs Current Medications Medications (Trade) Dose Ordered Sig/Ora Route Start Time Stop Time Status Last Admin (Peridex 0.12% Liq) 15 ml BID@08,20 MT 11/18/16 08:00 01/03/17 10:02 (NS Flush) 2 ml BID IV FLUSH 11/18/16 09:00 01/03/17 09:00 (Tylenol) 650 mg Q6H PRN PO 11/18/16 03:30 01/01/17 16:01 (Herman 5-325 Mg) 1 tab Q4H PRN PO 11/18/16 03:30 01/02/17 22:19 (Morphine Inj) 2 mg Q2H PRN IV 11/18/16 03:30 01/01/17 14:33 (Zofran Inj) 4 mg Q6H PRN IV 11/18/16 03:30 11/26/16 03:20 Miscellaneous Information 1 Q361D XX 11/18/16 03:30 11/18/16 03:30 (Chlorhexidine 2% Cloth) Taper DAILY@04 TOP 11/18/16 04:00 11/14/17 03:59 01/01/17 21:38 (Chlorhexidine 2% Cloth) 3 pack UNSCH PRN TOP 11/18/16 03:30 (Aspirin Chew) 324 mg DAILY NG 11/18/16 09:00 01/03/17 09:00 (Lipitor) 40 mg DAILY PO 11/18/16 09:00 01/03/17 10:02 (Parlodel) 2.5 mg Q12HR OG-TUBE 11/18/16 09:00 01/03/17 10:02 Folic Acid 1 mg 1 mg DAILY OG-TUBE 11/18/16 09:00 01/03/17 10:01 Potassium Chloride 100 ml @ 50 mls/hr Q2H PRN IV 11/18/16 13:30 (KCl 20 Meq Premix Inj) 100 ml @ 50 mls/hr Q2H PRN IV 11/18/16 13:30 11/27/16 14:13 Potassium Bicarb/ Potassium Chloride 50 meq 50 meq UNSCH PRN PO 11/18/16 13:30 11/29/16 06:20 Potassium Chloride 100 ml @ 25 mls/hr UNSCH PRN IV 11/18/16 13:30 Potassium Chloride 100 ml @ 50 mls/hr Q2H PRN IV 11/18/16 13:30 11/24/16 06:27 (Magnesium Sulfate Inj/NS Inj) 100 ml @ 50 mls/hr UNSCH PRN IV 11/18/16 13:30 Magnesium Oxide 800 mg 800 mg UNSCH PRN PO 11/18/16 13:30 (Magnesium Sulfate Inj/NS Inj) 100 ml @ 50 mls/hr UNSCH PRN IV 11/18/16 13:30 Potassium Phosphate 2000 mg 2,000 mg Q4H PRN PO 11/18/16 13:30 (Sodium Phosphate Inj/NS 250 ml Inj) 250 ml @ 42 mls/hr UNSCH PRN IV 11/18/16 13:30 Potassium Phosphate 2000 mg 2,000 mg UNSCH PRN PO/TUBE 11/18/16 13:30 (Potassium Phosphate Inj/NS 250 ml Inj) 260 ml @ 42 mls/hr UNSCH PRN IV 11/18/16 13:30 (Senna Liq) 8.8 mg BID PO 11/19/16 21:00 01/03/17 09:00 (Colace Liq) 100 mg Q12HR PO 11/19/16 21:00 01/03/17 10:01 (Miralax) 17 gm DAILY PO 11/21/16 18:00 01/03/17 10:01 (D50w (Vial) Inj) 25 ml UNSCH PRN IV PUSH 11/22/16 08:00 (Glucagon Inj) 1 mg UNSCH PRN OTHER 11/22/16 08:00 (NovoLIN R SUPPLEMENTAL SCALE) 1 Q6H SQ 11/22/16 08:00 01/03/17 08:00 (Lopressor Inj) 5 mg Q6H PRN IV PUSH 11/23/16 22:45 (Lactulose Liq) 15 ml BID PO 11/26/16 09:00 01/03/17 10:01 Bisacodyl 10 mg 10 mg DAILY PRN RECTAL 12/14/16 15:45 (Zosyn 3.375 Gm Premix) 50 ml @ 100 mls/hr Q6H IV 12/19/16 10:00 01/03/17 10:01 (Pepcid) 20 mg BID NG 12/21/16 21:00 01/03/17 10:02 (Keppra Liq) 1,500 mg Q12HR NG 12/21/16 21:00 01/03/17 10:01 Hyoscyamine Sulfate 0.125 mg 0.125 mg Q4H PRN PO 12/28/16 07:15 (Venofer Inj/NS Inj) 105 ml @ 105 mls/hr Q24H IV 01/02/17 15:00 01/04/17 15:59 01/02/17 16:45 A/P Assessment and Plan - 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 - Seizure disorder Noted significant JOE/MCA disease bilaterally from previous imaging of brain Keppra 1500 mg switch to by PEG twice a day for seizures Continue ASA 324 mg daily, atorvastatin 40 mg by mouth daily Continue bromocriptine 2.5 mg by mouth BID EEG-noted sharp spikes Neurology is following at a distance-Dr. Flores Has been evaluated tertiary care center [place] and felt to not be a candidate for further intervention. - COPD stable - Acute respiratory failure - currently on T piece. decreased Tracheostomy tube size by web marketing specialist. - Multilobar pneumonia Status post tracheostomy on 11/24/2016. Pulmonary following. Continue Zosyn 3.375 g every 6 hours DuoNeb when necessary -Anemia iron deficiency stable will give Iron IV. - Nutrition - continue Jevity 1.5 through PEG tube. Full code. SCDs. Famotidine twice a day Status post Downgrade of her Tracheostomy tube, next step to cap it. No changes to anterior assessment. Laboratory was reviewed. Discharge Planning Discussed with Patient in the room and Nurse Adrian Ni MD January 03, 2017 13:03
[2017-01-03] MEDS: IRON SUCROSE INJ 100 MG in SODIUM CHLORIDE 0.9% INJ 100 ML IV SCH (16:46)
--- NOTE | 2017-01-03 17:03 | HHI.PR ---
Subjective Remarks 66 YOWF with Rf, s/p trach H/O CVA,Arango Arango disease On trach collar Awake, does't follow commands No fever. No new complaint Objective Vital Signs Vital Signs Date Time Temp Pulse Resp B/P Pulse Ox O2 Delivery O2 Flow Rate FiO2 01/03/17 16:00 94 T-Piece 28 Humidified 01/03/17 16:00 81 01/03/17 14:00 85 01/03/17 12:00 95 T-Piece 28 Humidified 01/03/17 12:00 95 01/03/17 10:00 88 01/03/17 08:00 102 01/03/17 08:00 96 T-Piece 28 Humidified 01/03/17 07:52 94 T-piece 6.00 28 01/03/17 06:30 97 19 138/73 93 01/03/17 06:15 105 23 94 01/03/17 06:00 112 01/03/17 06:00 112 22 160/86 94 01/03/17 05:45 121 28 84 01/03/17 05:30 101 29 140/109 91 01/03/17 05:15 101 22 93 01/03/17 05:00 100 22 147/84 93 01/03/17 04:45 99 22 94 01/03/17 04:30 98 23 149/80 93 01/03/17 04:15 90 18 90 01/03/17 04:00 96 T-Piece 28 Humidified 01/03/17 04:00 95 21 147/81 92 01/03/17 04:00 95 01/03/17 04:00 98.5 01/03/17 03:45 96 20 93 01/03/17 03:30 98 23 146/81 93 01/03/17 03:15 99 21 92 01/03/17 03:00 100 25 155/82 93 01/03/17 02:45 99 23 94 01/03/17 02:30 97 21 148/82 91 01/03/17 02:30 97 21 148/82 91 01/03/17 02:00 99 24 150/84 94 01/03/17 01:30 99 22 153/81 92 01/03/17 01:00 100 23 150/80 93 01/03/17 00:30 100 22 146/73 90 01/03/17 00:00 97 T-Piece 28 Humidified 01/03/17 00:00 101 01/03/17 00:00 97.9 101 16 146/74 93 01/03/17 00:00 101 24 146/74 93 01/02/17 22:00 104 01/02/17 20:44 97 T-piece 6.00 28 01/02/17 20:00 96 T-Piece 28 Humidified 01/02/17 20:00 106 01/02/17 20:00 100.5 106 17 161/86 94 01/02/17 18:00 103 I/O 01/02/17 01/02/17 01/02/17 01/03/17 01/03/17 01/03/17 06:59 14:59 22:59 06:59 14:59 22:59 Intake Total 636 ml 960 ml 704 ml 588 ml 660 ml Output Total 375 ml 650 ml 275 ml 500 ml 351 ml Balance 261 ml 310 ml 429 ml 88 ml 309 ml IV Total 111 ml 180 ml 228 ml 50 ml 56 ml Tube Feeding 425 ml 780 ml 326 ml 438 ml 604 ml Other 100 ml 150 ml 100 ml Output Urine Total 375 ml 650 ml 275 ml 500 ml 350 ml Stool Total 1 ml # Bowel Movements 2 1 1 Result Diagram: 12/31/16 2143 01/02/17 0844 Objective Remarks GENERAL: MBMN WF, on Trach collar SKIN: Warm and dry. HEAD: Normocephalic. EYES: No scleral icterus. No injection or drainage. NECK: Supple, trachea midline. No JVD or lymphadenopathy. has trach CARDIOVASCULAR: Regular rate and rhythm without murmurs, gallops, or rubs. RESPIRATORY: Breath sounds equal bilaterally. No accessory muscle use. GASTROINTESTINAL: Abdomen soft, non-tender, nondistended. has PEG MUSCULOSKELETAL: No cyanosis, or edema. BACK: Nontender without obvious deformity. No CVA tenderness. A/P Assessment and Plan RF, S/P Trach CVA Arango arango disease CAD COPD PLAN: Aerosol nebs Cont trach collar supplement 02 Cont TF DW Vernon Wagner MD January 03, 2017 17:03
[2017-01-04] VITALS (13 sets, daily range): BP systolic 130–160; BP diastolic 71–87; PULSE 80–106; RESP 15–19; TEMP 98–99.1; O2SAT 92–98
[2017-01-04] MEDS: INSULIN NovoLIN REGULAR SUPPLEMENTAL SCALE SQ SCH ×4 (02:00→20:00)
[2017-01-04] MEDS: CHLORHEXIDINE GLUCONATE 2 % 1 PACK (2 CLOTHS) TOP SCH (04:00)
[2017-01-04] MEDS: PIPERACIL-TAZO 3.375 GM PREMIX 50 ML IV SCH ×3 (08:39→22:16)
[2017-01-04] MEDS: CHLORHEXIDINE 0.12% (ORAL KIT) 15 ML CUP MT SCH ×2 (08:39→20:00)
[2017-01-04] MEDS: ASPIRIN 81 MG CHEW TAB NG SCH (08:40)
[2017-01-04] MEDS: SODIUM CHLORIDE 0.9% FLUSH 10 ML FLUSH IV FLUSH SCH ×2 (08:40→20:20)
[2017-01-04] MEDS: BROMOCRIPTINE MESYLATE 2.5 MG TAB OG-TUBE SCH ×2 (08:41→20:21)
[2017-01-04] MEDS: FAMOTIDINE 20 MG TAB NG SCH ×2 (08:41→20:20)
[2017-01-04] MEDS: ATORVASTATIN 40 MG TAB PO SCH (08:41)
[2017-01-04] MEDS: FOLIC ACID 1 MG TAB OG-TUBE SCH (08:41)
[2017-01-04] MEDS: LACTULOSE SYRUP 20 GM/30 ML CUP PO SCH ×2 (08:42→20:20)
[2017-01-04] MEDS: DOCUSATE SODIUM 100 MG/10 ML UDC PO SCH ×2 (08:42→20:20)
[2017-01-04] MEDS: POLYETHYLENE GLYCOL 17 GM PKG PO SCH (08:43)
[2017-01-04] MEDS: SENNOSIDES SYRUP 8.8 MG/5 ML CUP PO SCH ×2 (08:43→20:20)
[2017-01-04] MEDS: levETIRAcetam 500 MG/5 ML UDC NG SCH ×2 (08:51→20:20)
[2017-01-04] MEDS: IRON SUCROSE INJ 100 MG in SODIUM CHLORIDE 0.9% INJ 100 ML IV SCH (13:33)
[2017-01-04] MEDS: COLLAGENASE OINT 30 GM TUBE TOPICAL SCH (15:24)
--- NOTE | 2017-01-04 16:16 | HHI.PR ---
Subjective Remarks Appears in nad. Less secretions. opens eyes. no change. Objective Vitals Vital Signs Date Time Temp Pulse Resp B/P Pulse Ox O2 Delivery O2 Flow Rate FiO2 01/04/17 12:00 97 01/04/17 12:00 98.0 97 19 131/79 92 01/04/17 12:00 92 T-Piece 28 01/04/17 10:00 85 01/04/17 08:00 98 T-Piece 28 01/04/17 08:00 81 01/04/17 08:00 98.2 81 15 140/71 98 01/04/17 06:00 92 01/04/17 04:00 99.1 83 18 139/79 97 01/04/17 04:00 95 T-Piece 28 01/04/17 04:00 83 01/04/17 02:00 82 01/04/17 00:00 80 01/04/17 00:00 95 T-Piece 28 Humidified 01/04/17 00:00 98.5 80 17 136/74 95 01/03/17 22:00 79 01/03/17 20:00 82 01/03/17 20:00 94 T-Piece 28 Humidified 01/03/17 20:00 98.6 82 21 133/78 94 01/03/17 20:00 96 T-piece 28 01/03/17 18:00 92 I/O 01/03/17 01/03/17 01/03/17 01/04/17 01/04/17 01/04/17 07:00 15:00 23:00 07:00 15:00 23:00 Intake Total 588 ml 660 ml 388 ml 462 ml Output Total 500 ml 351 ml 250 ml 241 ml Balance 88 ml 309 ml 138 ml 221 ml Intake Oral 0 ml 0 ml IV Total 50 ml 56 ml 50 ml 0 ml Tube Feeding 438 ml 604 ml 238 ml 362 ml Other 100 ml 100 ml 100 ml Output Urine Total 500 ml 350 ml 250 ml 240 ml Stool Total 1 ml 1 ml # Bowel Movements 1 Result Diagram: 12/31/16 2143 01/02/17 0844 Imaging Last Impressions Chest X-Ray 12/31/16 0000 Signed Impressions: Service Date/Time: Saturday, December 31, 2016 19:39 - CONCLUSION: Stable cardiomegaly. Clear lungs. Peña Diana Jr., MD Brain MRI 12/17/16 0000 Signed Impressions: Service Date/Time: Saturday, December 17, 2016 21:37 - CONCLUSION: Evolving bifrontal signal changes as described Nghia Pacheco MD Abdomen X-Ray 11/26/16 0000 Signed Impressions: Service Date/Time: Saturday, November 26, 2016 10:18 - CONCLUSION: Distended stomach otherwise nonspecific abdomen. Jackson Murillo MD Objective Remarks GENERAL: Alert, sleepy, eyes open, does not respond to verbal commands. Currently on T piece. SKIN: Warm and dry. HEAD: Normocephalic. EYES: No scleral icterus. No injection or drainage. NECK: Supple, trachea midline. No JVD or lymphadenopathy. CARDIOVASCULAR: Regular rhythm, tachycardic without murmurs, gallops, or rubs. RESPIRATORY: Breath sounds equal bilaterally. No accessory muscle use. GASTROINTESTINAL: Abdomen soft, obese, non-tender, nondistended. MUSCULOSKELETAL: No cyanosis, or edema. Procedures 11/24/2016 Percutaneous tracheostomy. 11/18/2016 Moderate encephalopathy with suggestion of left temporal region cortical irritability. No active seizures. Clinical correlation. 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 Rivas is a 66-year-old female with a history of stroke who was admitted to the [facility] on 11/04/2016 due to difficulty getting her thoughts together. She was found to have multifocal nonhemorrhagic infarctions in the frontal and parietal regions. She was initially awake and following commands with weakness of RLE and some aphasia. She was transferred to [facility] where he had an cerebral angiogram consistent with moyamoya. There were plans to perform extracranial/intracranial bypass. However she had a seizure and ended up being intubated for status either 11/09 or 11/10.. She was found to have a new right frontal infarct area and she was started on Dilantin and Keppra and it was felt that she would not be a candidate for intervention. She has been intubated 9-10 days and apparently she has been tolerating C Pap trials to some extent but mental status prevents extubation. Treating team was discussing with family trach/PEG. Apparently family requested transfer back to [place] because they live locally here and wanted her closer to home. Patient remained under critical care medicine until 12/24/2016. 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 October 2016. Seizure disorder Noted significant JOE/MCA disease bilaterally from previous imaging of brain Keppra 1500 mg switch to by PEG twice a day for seizures Continue ASA 324 mg daily, atorvastatin 40 mg by mouth daily Continue bromocriptine 2.5 mg by mouth BID EEG-noted sharp spikes Neurology is following at a distance-Dr. Flores Has been evaluated tertiary care center [place] and felt to not be a candidate for further intervention. - COPD stable - Acute respiratory failure - currently on T piece. decreased Tracheostomy tube size by transition of care specialist. - Multilobar pneumonia Status post tracheostomy on 11/24/2016. Pulmonary following. Continue Zosyn 3.375 g every 6 hours DuoNeb when necessary -Anemia iron deficiency stable will give Iron IV. - Nutrition - continue Jevity 1.5 through PEG tube. Full code. SCDs. Famotidine twice a day Status post Downgrade of her Tracheostomy tube, next step to cap it. No changes to anterior assessment. Laboratory was reviewed. Patient needs LTAC Angela Trejo MD January 04, 2017 16:16
--- NOTE | 2017-01-04 19:06 | HHI.PR ---
Subjective Remarks 66 YOWF with Rf, s/p trach H/O CVA,Arango Arango disease On trach collar Awake, does't follow commands No fever. Objective Vital Signs Vital Signs Date Time Temp Pulse Resp B/P Pulse Ox O2 Delivery O2 Flow Rate FiO2 01/04/17 18:00 101 01/04/17 16:00 97 T-Piece 28 01/04/17 16:00 94 01/04/17 16:00 98.3 94 18 130/84 97 01/04/17 14:00 86 01/04/17 12:00 97 01/04/17 12:00 98.0 97 19 131/79 92 01/04/17 12:00 92 T-Piece 28 01/04/17 10:00 85 01/04/17 08:00 98 T-Piece 28 01/04/17 08:00 81 01/04/17 08:00 98.2 81 15 140/71 98 01/04/17 06:00 92 01/04/17 04:00 99.1 83 18 139/79 97 01/04/17 04:00 95 T-Piece 28 01/04/17 04:00 83 01/04/17 02:00 82 01/04/17 00:00 80 01/04/17 00:00 95 T-Piece 28 Humidified 01/04/17 00:00 98.5 80 17 136/74 95 01/03/17 22:00 79 01/03/17 20:00 82 01/03/17 20:00 94 T-Piece 28 Humidified 01/03/17 20:00 98.6 82 21 133/78 94 01/03/17 20:00 96 T-piece 28 I/O 01/03/17 01/03/17 01/03/17 01/04/17 01/04/17 01/04/17 07:00 15:00 23:00 07:00 15:00 23:00 Intake Total 588 ml 660 ml 388 ml 462 ml 562 ml Output Total 500 ml 351 ml 250 ml 241 ml 251 ml Balance 88 ml 309 ml 138 ml 221 ml 311 ml Intake Oral 0 ml 0 ml 0 ml IV Total 50 ml 56 ml 50 ml 0 ml 0 ml Tube Feeding 438 ml 604 ml 238 ml 362 ml 502 ml Other 100 ml 100 ml 100 ml 60 ml Output Urine Total 500 ml 350 ml 250 ml 240 ml 250 ml Stool Total 1 ml 1 ml 1 ml # Bowel Movements 1 Result Diagram: 12/31/16 2143 01/02/17 0844 Objective Remarks GENERAL: MBMN WF, on Trach collar SKIN: Warm and dry. HEAD: Normocephalic. EYES: No scleral icterus. No injection or drainage. NECK: Supple, trachea midline. No JVD or lymphadenopathy. has trach CARDIOVASCULAR: Regular rate and rhythm without murmurs, gallops, or rubs. RESPIRATORY: Breath sounds equal bilaterally. No accessory muscle use. GASTROINTESTINAL: Abdomen soft, non-tender, nondistended. has PEG MUSCULOSKELETAL: No cyanosis, or edema. BACK: Nontender without obvious deformity. No CVA tenderness. A/P Assessment and Plan RF, S/P Trach CVA Arango arango disease CAD COPD PLAN: Aerosol nebs Cont trach collar supplement 02 Cont TF DW Vernon Wagner MD January 04, 2017 19:05
[2017-01-04] MEDS: RESP: ALBUTEROL 2.5 MG/3 ML NEB (PRN) INH (20:35)
[2017-01-05] VITALS (14 sets, daily range): BP systolic 117–166; BP diastolic 56–101; PULSE 96–111; RESP 17–23; TEMP 98.1–99.4; O2SAT 89–97
[2017-01-05] MEDS: INSULIN NovoLIN REGULAR SUPPLEMENTAL SCALE SQ SCH ×4 (02:00→21:20)
[2017-01-05] MEDS: CHLORHEXIDINE GLUCONATE 2 % 1 PACK (2 CLOTHS) TOP SCH (04:00)
[2017-01-05] MEDS: PIPERACIL-TAZO 3.375 GM PREMIX 50 ML IV SCH ×4 (04:32→21:29)
[2017-01-05] MEDS: CHLORHEXIDINE 0.12% (ORAL KIT) 15 ML CUP MT SCH ×2 (08:32→21:15)
[2017-01-05] MEDS: ASPIRIN 81 MG CHEW TAB NG SCH (08:36)
[2017-01-05] MEDS: SODIUM CHLORIDE 0.9% FLUSH 10 ML FLUSH IV FLUSH SCH ×2 (08:36→21:15)
[2017-01-05] MEDS: ATORVASTATIN 40 MG TAB PO SCH (08:37)
[2017-01-05] MEDS: FAMOTIDINE 20 MG TAB NG SCH ×2 (08:37→21:28)
[2017-01-05] MEDS: POLYETHYLENE GLYCOL 17 GM PKG PO SCH (08:37)
[2017-01-05] MEDS: LACTULOSE SYRUP 20 GM/30 ML CUP PO SCH ×2 (08:37→21:30)
[2017-01-05] MEDS: levETIRAcetam 500 MG/5 ML UDC NG SCH ×2 (08:37→21:29)
[2017-01-05] MEDS: FOLIC ACID 1 MG TAB OG-TUBE SCH (08:37)
[2017-01-05] MEDS: SENNOSIDES SYRUP 8.8 MG/5 ML CUP PO SCH ×2 (08:37→21:30)
[2017-01-05] MEDS: DOCUSATE SODIUM 100 MG/10 ML UDC PO SCH ×2 (08:38→21:30)
[2017-01-05] MEDS: COLLAGENASE OINT 30 GM TUBE TOPICAL SCH (08:38)
--- NOTE | 2017-01-05 08:58 | HHI.PR ---
Subjective Remarks Opens eyes, appears in nad. No events overnight. No change, at baseline. Objective Vitals Vital Signs Date Time Temp Pulse Resp B/P Pulse Ox O2 Delivery O2 Flow Rate FiO2 01/05/17 08:38 96 T-piece 6.00 28 01/05/17 06:00 99 01/05/17 04:00 102 01/05/17 04:00 98.4 102 23 146/77 95 01/05/17 04:00 95 T-Piece 28 01/05/17 02:00 109 01/05/17 00:00 98.1 96 17 117/56 89 01/05/17 00:00 94 T-Piece 01/05/17 00:00 96 01/04/17 22:00 96 01/04/17 20:36 95 Nasal Cannula 6.00 28 01/04/17 20:00 106 01/04/17 20:00 94 T-Piece 01/04/17 20:00 98.4 106 17 160/87 94 01/04/17 18:00 101 01/04/17 16:00 97 T-Piece 01/04/17 16:00 94 01/04/17 16:00 98.3 94 18 130/84 97 01/04/17 14:00 86 01/04/17 12:00 97 01/04/17 12:00 98.0 97 19 131/79 92 01/04/17 12:00 92 T-Piece 01/04/17 10:00 85 I/O 01/04/17 01/04/17 01/04/17 01/05/17 01/05/17 01/05/17 07:00 15:00 23:00 07:00 15:00 23:00 Intake Total 462 ml 562 ml 469 ml 531 ml Output Total 241 ml 251 ml 240 ml 401 ml Balance 221 ml 311 ml 229 ml 130 ml Intake Oral 0 ml 0 ml 0 ml 0 ml IV Total 0 ml 0 ml 74 ml 131 ml Tube Feeding 362 ml 502 ml 395 ml 400 ml Other 100 ml 60 ml Output Urine Total 240 ml 250 ml 240 ml 400 ml Stool Total 1 ml 1 ml 0 ml 1 ml Result Diagram: 01/02/17 0844 Imaging Last Impressions Chest X-Ray 12/31/16 0000 Signed Impressions: Service Date/Time: Saturday, December 31, 2016 19:39 - CONCLUSION: Stable cardiomegaly. Clear lungs. Peña Diana Jr., MD Brain MRI 12/17/16 0000 Signed Impressions: Service Date/Time: Saturday, December 17, 2016 21:37 - CONCLUSION: Evolving bifrontal signal changes as described Nghia Pacheco MD Abdomen X-Ray 11/26/16 0000 Signed Impressions: Service Date/Time: Saturday, November 26, 2016 10:18 - CONCLUSION: Distended stomach otherwise nonspecific abdomen. K. David Murillo MD Objective Remarks GENERAL: Alert, sleepy, eyes open, does not respond to verbal commands. Currently on T piece. SKIN: Warm and dry. HEAD: Normocephalic. EYES: No scleral icterus. No injection or drainage. NECK: Supple, trachea midline. No JVD or lymphadenopathy. CARDIOVASCULAR: Regular rhythm, tachycardic without murmurs, gallops, or rubs. RESPIRATORY: Breath sounds equal bilaterally. No accessory muscle use. GASTROINTESTINAL: Abdomen soft, obese, non-tender, nondistended. MUSCULOSKELETAL: No cyanosis, or edema. Procedures 11/24/2016 Percutaneous tracheostomy. 11/18/2016 Moderate encephalopathy with suggestion of left temporal region cortical irritability. No active seizures. Clinical correlation. 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 Rivas is a 66-year-old female with a history of stroke who was admitted to the [facility] on 11/04/2016 due to difficulty getting her thoughts together. She was found to have multifocal nonhemorrhagic infarctions in the frontal and parietal regions. She was initially awake and following commands with weakness of RLE and some aphasia. She was transferred to [facility] where he had an cerebral angiogram consistent with moyamoya. There were plans to perform extracranial/intracranial bypass. However she had a seizure and ended up being intubated for status either 11/09 or 11/10.. She was found to have a new right frontal infarct area and she was started on Dilantin and Keppra and it was felt that she would not be a candidate for intervention. She has been intubated 9-10 days and apparently she has been tolerating C Pap trials to some extent but mental status prevents extubation. Treating team was discussing with family trach/PEG. Apparently family requested transfer back to [place] because they live locally here and wanted her closer to home. Patient remained under critical care medicine until 12/24/2016. Bilateral frontal CVA Moyamoya - confirmed by arteriogram at [facility] October 2016. Seizure disorder Noted significant JOE/MCA disease bilaterally from previous imaging of brain Keppra 1500 mg switch to by PEG twice a day for seizures Continue ASA 324 mg daily, atorvastatin 40 mg by mouth daily Continue bromocriptine 2.5 mg by mouth BID EEG-noted sharp spikes Neurology is following at a distance-Dr. Flores Has been evaluated tertiary care center [place] and felt to not be a candidate for further intervention. - COPD stable - Acute respiratory failure - currently on T piece. decreased Tracheostomy tube size by auricular detoxification specialist. - Multilobar pneumonia Status post tracheostomy on 11/24/2016. Pulmonary following. Continue Zosyn 3.375 g every 6 hours DuoNeb when necessary -Anemia iron deficiency stable will give Iron IV. - Nutrition - continue Jevity 1.5 through PEG tube. Full code. SCDs. Famotidine twice a day Status post Downgrade of her Tracheostomy tube, next step to cap it. No changes to anterior assessment. Laboratory was reviewed. Patient needs LTAC Angela Trejo MD January 05, 2017 08:57
[2017-01-05] MEDS: BROMOCRIPTINE MESYLATE 2.5 MG TAB OG-TUBE SCH ×2 (11:43→21:28)
--- NOTE | 2017-01-05 20:20 | HHI.PR ---
Subjective Remarks 66 YOWF with Rf, s/p trach H/O CVA,Arango Arango disease On trach collar Awake, does't follow commands No fever. no new complaint Objective Vital Signs Vital Signs Date Time Temp Pulse Resp B/P Pulse Ox O2 Delivery O2 Flow Rate FiO2 01/05/17 18:00 107 01/05/17 16:00 95 T-Piece 28 01/05/17 16:00 102 01/05/17 16:00 99.4 102 21 165/89 95 01/05/17 14:00 98 01/05/17 12:00 99.1 104 20 141/80 95 01/05/17 12:00 99.1 102 18 153/91 96 01/05/17 12:00 96 T-Piece 28 01/05/17 12:00 102 01/05/17 10:00 107 01/05/17 08:38 96 T-piece 6.00 28 01/05/17 08:00 104 01/05/17 08:00 98.8 104 20 141/80 95 01/05/17 08:00 95 T-Piece 28 01/05/17 06:00 99 01/05/17 04:00 102 01/05/17 04:00 98.4 102 23 146/77 95 01/05/17 04:00 95 T-Piece 28 01/05/17 02:00 109 01/05/17 00:00 98.1 96 17 117/56 89 01/05/17 00:00 94 T-Piece 28 01/05/17 00:00 96 01/04/17 22:00 96 01/04/17 20:36 95 Nasal Cannula 6.00 28 I/O 01/04/17 01/04/17 01/04/17 01/05/17 01/05/17 01/05/17 07:00 15:00 23:00 07:00 15:00 23:00 Intake Total 462 ml 562 ml 469 ml 531 ml 523 ml Output Total 241 ml 251 ml 240 ml 401 ml 352 ml Balance 221 ml 311 ml 229 ml 130 ml 171 ml Intake Oral 0 ml 0 ml 0 ml 0 ml 0 ml IV Total 0 ml 0 ml 74 ml 131 ml 94 ml Tube Feeding 362 ml 502 ml 395 ml 400 ml 429 ml Other 100 ml 60 ml Output Urine Total 240 ml 250 ml 240 ml 400 ml 350 ml Stool Total 1 ml 1 ml 0 ml 1 ml 2 ml Result Diagram: 01/02/17 0844 Objective Remarks GENERAL: MBMN WF, on Trach collar SKIN: Warm and dry. HEAD: Normocephalic. EYES: No scleral icterus. No injection or drainage. NECK: Supple, trachea midline. No JVD or lymphadenopathy. has trach CARDIOVASCULAR: Regular rate and rhythm without murmurs, gallops, or rubs. RESPIRATORY: Breath sounds equal bilaterally. No accessory muscle use. GASTROINTESTINAL: Abdomen soft, non-tender, nondistended. has PEG MUSCULOSKELETAL: No cyanosis, or edema. BACK: Nontender without obvious deformity. No CVA tenderness. A/P Assessment and Plan RF, S/P Trach CVA Arango arango disease CAD COPD PLAN: Aerosol nebs Cont trach collar supplement 02 Cont TF DW RN cont same treatment plan Vernon Marx MD January 05, 2017 20:20
[2017-01-06] VITALS (14 sets, daily range): BP systolic 148–164; BP diastolic 73–99; PULSE 90–119; RESP 16–23; TEMP 98.3–99.1; O2SAT 93–98
[2017-01-06] MEDS: CHLORHEXIDINE GLUCONATE 2 % 1 PACK (2 CLOTHS) TOP SCH (02:00)
[2017-01-06] MEDS: INSULIN NovoLIN REGULAR SUPPLEMENTAL SCALE SQ SCH ×4 (02:21→21:49)
[2017-01-06] MEDS: PIPERACIL-TAZO 3.375 GM PREMIX 50 ML IV SCH ×4 (04:30→21:50)
[2017-01-06] MEDS: CHLORHEXIDINE 0.12% (ORAL KIT) 15 ML CUP MT SCH (08:01)
[2017-01-06] MEDS: ASPIRIN 81 MG CHEW TAB NG SCH (08:02)
[2017-01-06] MEDS: FAMOTIDINE 20 MG TAB NG SCH ×2 (08:02→21:00)
[2017-01-06] MEDS: levETIRAcetam 500 MG/5 ML UDC NG SCH ×2 (08:02→21:52)
[2017-01-06] MEDS: ATORVASTATIN 40 MG TAB PO SCH (08:02)
[2017-01-06] MEDS: FOLIC ACID 1 MG TAB OG-TUBE SCH (08:02)
[2017-01-06] MEDS: SENNOSIDES SYRUP 8.8 MG/5 ML CUP PO SCH ×2 (08:03→21:00)
[2017-01-06] MEDS: DOCUSATE SODIUM 100 MG/10 ML UDC PO SCH ×2 (08:03→21:00)
[2017-01-06] MEDS: COLLAGENASE OINT 30 GM TUBE TOPICAL SCH (08:03)
[2017-01-06] MEDS: POLYETHYLENE GLYCOL 17 GM PKG PO SCH (08:03)
[2017-01-06] MEDS: LACTULOSE SYRUP 20 GM/30 ML CUP PO SCH ×2 (08:03→21:00)
[2017-01-06] MEDS: SODIUM CHLORIDE 0.9% FLUSH 10 ML FLUSH IV FLUSH SCH (08:04)
--- NOTE | 2017-01-06 09:25 | HHI.PR ---
Subjective Remarks Breakthrough seizures in the morning. Had approx 10 min left arm seizure this am. Otherwise VSS. Dr Flores has been notified. Patient is in bed, she has her eyes opened, no seizure at this time. Patient appears in nad. Objective Vitals Vital Signs Date Time Temp Pulse Resp B/P Pulse Ox O2 Delivery O2 Flow Rate FiO2 01/06/17 06:00 95 01/06/17 04:00 97 T-Piece 28 01/06/17 04:00 98.8 95 17 152/75 97 01/06/17 04:00 95 01/06/17 02:00 90 01/06/17 00:10 97 T-piece 7.00 28 01/06/17 00:00 93 T-Piece 28 01/06/17 00:00 99.0 103 23 162/99 93 01/06/17 00:00 119 01/05/17 22:00 111 01/05/17 20:12 97 T-piece 6.00 28 01/05/17 20:00 99.1 108 23 166/101 93 01/05/17 20:00 93 T-Piece 28 01/05/17 20:00 108 01/05/17 18:00 107 01/05/17 16:00 95 T-Piece 28 01/05/17 16:00 102 01/05/17 16:00 99.4 102 21 165/89 95 01/05/17 14:00 98 01/05/17 12:00 99.1 104 20 141/80 95 01/05/17 12:00 99.1 102 18 153/91 96 01/05/17 12:00 96 T-Piece 28 01/05/17 12:00 102 01/05/17 10:00 107 I/O 01/05/17 01/05/17 01/05/17 01/06/17 01/06/17 01/06/17 07:00 15:00 23:00 07:00 15:00 23:00 Intake Total 531 ml 523 ml 771 ml 422 ml Output Total 401 ml 352 ml 375 ml 251 ml Balance 130 ml 171 ml 396 ml 171 ml Intake Oral 0 ml 0 ml IV Total 131 ml 94 ml 140 ml 76 ml Tube Feeding 400 ml 429 ml 541 ml 286 ml Tube Irrigant 90 ml 60 ml Output Urine Total 400 ml 350 ml 375 ml 250 ml Stool Total 1 ml 2 ml 1 ml Result Diagram: 01/02/17 0844 Imaging Last Impressions Chest X-Ray 12/31/16 0000 Signed Impressions: Service Date/Time: Saturday, December 31, 2016 19:39 - CONCLUSION: Stable cardiomegaly. Clear lungs. Peña Diana Jr., MD Brain MRI 12/17/16 0000 Signed Impressions: Service Date/Time: Saturday, December 17, 2016 21:37 - CONCLUSION: Evolving bifrontal signal changes as described Nghia Pacheco MD Abdomen X-Ray 11/26/16 0000 Signed Impressions: Service Date/Time: Saturday, November 26, 2016 10:18 - CONCLUSION: Distended stomach otherwise nonspecific abdomen. K. David Murillo MD Objective Remarks GENERAL: Alert, sleepy, eyes open, does not respond to verbal commands. Currently on T piece. SKIN: Warm and dry. HEAD: Normocephalic. EYES: No scleral icterus. No injection or drainage. NECK: Supple, trachea midline. No JVD or lymphadenopathy. CARDIOVASCULAR: Regular rhythm, tachycardic without murmurs, gallops, or rubs. RESPIRATORY: Breath sounds equal bilaterally. No accessory muscle use. GASTROINTESTINAL: Abdomen soft, obese, non-tender, nondistended. MUSCULOSKELETAL: No cyanosis, or edema. Procedures 11/24/2016 Percutaneous tracheostomy. 11/18/2016 Moderate encephalopathy with suggestion of left temporal region cortical irritability. No active seizures. Clinical correlation. 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 Rivas is a 66-year-old female with a history of stroke who was admitted to the [facility] on 11/04/2016 due to difficulty getting her thoughts together. She was found to have multifocal nonhemorrhagic infarctions in the frontal and parietal regions. She was initially awake and following commands with weakness of RLE and some aphasia. She was transferred to [facility] where he had an cerebral angiogram consistent with moyamoya. There were plans to perform extracranial/intracranial bypass. However she had a seizure and ended up being intubated for status either 11/09 or 11/10.. She was found to have a new right frontal infarct area and she was started on Dilantin and Keppra and it was felt that she would not be a candidate for intervention. She has been intubated 9-10 days and apparently she has been tolerating C Pap trials to some extent but mental status prevents extubation. Treating team was discussing with family trach/PEG. Apparently family requested transfer back to [place] because they live locally here and wanted her closer to home. Patient remained under critical care medicine until 12/24/2016. Bilateral large frontal CVA Moyamoya - confirmed by arteriogram at [facility] October 2016. Seizure disorder Breakthrough seizures noted 01/06/17. Dr Flores neuro following . Plan for EEG and MRI. Continue keppra. Started tegretol per neuro. 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 Added tegretol as noted breaktrheough seizures 01/06. EEG, MRI pending Continue ASA 324 mg daily, atorvastatin 40 mg by mouth daily Continue bromocriptine 2.5 mg by mouth BID EEG-noted sharp spikes Neurology is following at a distance-Dr. Flores Has been evaluated tertiary care center [place] and felt to not be a candidate for further intervention. - COPD stable - Acute respiratory failure - currently on T piece. decreased Tracheostomy tube size by medicaid specialist. - Multilobar pneumonia Status post tracheostomy on 11/24/2016. Pulmonary following. Continue Zosyn 3.375 g every 6 hours DuoNeb when necessary -Anemia iron deficiency stable will give Iron IV. - Nutrition - continue Jevity 1.5 through PEG tube. Full code. SCDs. Famotidine twice a day Status post Downgrade of her Tracheostomy tube, next step to cap it. No changes to anterior assessment. Laboratory was reviewed. Patient needs LTAC Dc pending improvement Patient had breakthrough seizures, EEG, MRI pending. Cont keppra and added tegretol. Keep patient in ICU for now per Dr Flores neuro Angela Trejo MD Jan 06, 2017 09:24
--- NOTE | 2017-01-06 09:34 | HHI.PR ---
Subjective Remarks had 10 min left arm sz this am on keppra 1500 bid Objective Vital Signs Date Time Temp Pulse Resp B/P Pulse Ox O2 Delivery O2 Flow Rate FiO2 01/06/17 06:00 95 01/06/17 04:00 97 T-Piece 28 01/06/17 04:00 98.8 95 17 152/75 97 01/06/17 04:00 95 01/06/17 02:00 90 01/06/17 00:10 97 T-piece 7.00 28 01/06/17 00:00 93 T-Piece 28 01/06/17 00:00 99.0 103 23 162/99 93 01/06/17 00:00 119 01/05/17 22:00 111 01/05/17 20:12 97 T-piece 6.00 28 01/05/17 20:00 99.1 108 23 166/101 93 01/05/17 20:00 93 T-Piece 01/05/17 20:00 108 01/05/17 18:00 107 01/05/17 16:00 95 T-Piece 28 01/05/17 16:00 102 01/05/17 16:00 99.4 102 21 165/89 95 01/05/17 14:00 98 01/05/17 12:00 99.1 104 20 141/80 95 01/05/17 12:00 99.1 102 18 153/91 96 01/05/17 12:00 96 T-Piece 01/05/17 12:00 102 01/05/17 10:00 107 I/O 01/05/17 01/05/17 01/05/17 01/06/17 01/06/17 01/06/17 07:00 15:00 23:00 07:00 15:00 23:00 Intake Total 531 ml 523 ml 771 ml 422 ml Output Total 401 ml 352 ml 375 ml 251 ml Balance 130 ml 171 ml 396 ml 171 ml Intake Oral 0 ml 0 ml IV Total 131 ml 94 ml 140 ml 76 ml Tube Feeding 400 ml 429 ml 541 ml 286 ml Tube Irrigant 90 ml 60 ml Output Urine Total 400 ml 350 ml 375 ml 250 ml Stool Total 1 ml 2 ml 1 ml Result Diagram: 01/02/17 0844 Procedures 11/24/2016 Percutaneous tracheostomy. Objective Remarks not following commands pupils = does moves eyes around and tracks me and rxt to threat nl no command following no change stable now no left arm jerk now Assessment and Plan Assessment and Plan imp huge r frontal cva and inc size left frontal cva may eventually awaken and interact more mri no change resolving cva eeg some left sharps stay on keppra no anticoag now due to size of cva trached and pegged I THINK SHE LOOKS BETTER AND EVENTUALLY MAY INTERACT MORE AND SPEAK WE WILL HAVE TO WAIT AND SEE SOME DAMAGE TO LANGUAGE AREA IN FRONT I THINK BY MRI no change here 01/06/17 focal sz add tegretol check eeg and mri Terrence Flores MD Jan 06, 2017 09:34
[2017-01-06] MEDS: carBAMazepine SUSP 200 MG/10 ML UDC PEG SCH ×2 (10:32→21:51)
[2017-01-06] MEDS: BROMOCRIPTINE MESYLATE 2.5 MG TAB OG-TUBE SCH (10:32)
--- NOTE | 2017-01-06 16:19 | RADRPT ---
EXAM DATE/TIME: 01/06/2017 14:19 [place] COMPARISON: MRI BRAIN W/O CONTRAST, November 18, 2016, 18:14. MRI BRAIN W/O CONTRAST, December 17, 2016, 21:37. INDICATIONS : Seizures. MEDICAL HISTORY : Hypertension. Seizures. SURGICAL HISTORY : None. ENCOUNTER: Sequela ACUITY: 2 months PAIN SCORE: Nonresponsive. LOCATION: head. TECHNIQUE: Multiplanar, multisequence MRI of the brain was performed without contrast. FINDINGS: CEREBRUM: Large areas of signal abnormality are again seen in the frontal lobes bilaterally. There is evidence of evolutionary changes. No new signal abnormality or mass effect. No evidence of hemorrhage. WHITE MATTER: No significant signal abnormalities are seen in the white matter. POSTERIOR FOSSA: The cerebellum and brainstem are intact. The 4th ventricle is midline. The cerebellopontine angle is unremarkable. The cerebellar tonsils are normal in position. DIFFUSION IMAGING: No new restricted diffusion. EXTRACRANIAL: The visualized portions of the orbits and paranasal sinuses are unremarkable. CONCLUSION: Continued evolutionary changes of large bilateral frontal lobe infarcts. Sami Mccarthy MD on January 06, 2017 at 16:15 Board Certified Radiologist. This report was verified electronically.
--- NOTE | 2017-01-06 19:46 | HHI.PR ---
Subjective Remarks 66 YOWF with Rf, s/p trach H/O CVA,Arango Arango disease On trach collar Awake, does't follow commands No fever. no new complaint Objective Vital Signs Vital Signs Date Time Temp Pulse Resp B/P Pulse Ox O2 Delivery O2 Flow Rate FiO2 01/06/17 18:00 109 01/06/17 17:21 96 T-piece 6.00 28 01/06/17 16:00 99.1 100 22 148/88 98 01/06/17 16:00 100 01/06/17 16:00 96 T-Piece 28 01/06/17 14:00 103 01/06/17 12:00 98.3 95 21 153/73 96 01/06/17 12:00 95 T-Piece 28 01/06/17 12:00 106 01/06/17 10:00 104 01/06/17 08:00 96 T-Piece 28 01/06/17 08:00 98.6 96 21 153/73 96 01/06/17 08:00 96 01/06/17 06:00 95 01/06/17 04:00 97 T-Piece 01/06/17 04:00 98.8 95 17 152/75 97 01/06/17 04:00 95 01/06/17 02:00 90 01/06/17 00:10 97 T-piece 7.00 01/06/17 00:00 93 T-Piece 01/06/17 00:00 99.0 103 23 162/99 93 01/06/17 00:00 119 01/05/17 22:00 111 01/05/17 20:12 97 T-piece 6.00 01/05/17 20:00 99.1 108 23 166/101 93 01/05/17 20:00 93 T-Piece 01/05/17 20:00 108 I/O 01/05/17 01/05/17 01/05/17 01/06/17 01/06/17 01/06/17 07:00 15:00 23:00 07:00 15:00 23:00 Intake Total 531 ml 523 ml 771 ml 422 ml 634 ml Output Total 401 ml 352 ml 375 ml 251 ml 376 ml Balance 130 ml 171 ml 396 ml 171 ml 258 ml Intake Oral 0 ml 0 ml IV Total 131 ml 94 ml 140 ml 76 ml 89 ml Tube Feeding 400 ml 429 ml 541 ml 286 ml 425 ml Tube Irrigant 90 ml 60 ml 120 ml Output Urine Total 400 ml 350 ml 375 ml 250 ml 375 ml Stool Total 1 ml 2 ml 1 ml 1 ml Result Diagram: 01/02/17 0844 Objective Remarks GENERAL: MBMN WF, on Trach collar SKIN: Warm and dry. HEAD: Normocephalic. EYES: No scleral icterus. No injection or drainage. NECK: Supple, trachea midline. No JVD or lymphadenopathy. has trach CARDIOVASCULAR: Regular rate and rhythm without murmurs, gallops, or rubs. RESPIRATORY: Breath sounds equal bilaterally. No accessory muscle use. GASTROINTESTINAL: Abdomen soft, non-tender, nondistended. has PEG MUSCULOSKELETAL: No cyanosis, or edema. BACK: Nontender without obvious deformity. No CVA tenderness. A/P Assessment and Plan RF, S/P Trach CVA Arango arango disease CAD COPD PLAN: Aerosol nebs Cont trach collar supplement 02 Cont TF DW Vernon Wagner MD Jan 06, 2017 19:46
[2017-01-07] VITALS (23 sets, daily range): BP systolic 106–161; BP diastolic 59–109; PULSE 91–128; RESP 14–34; TEMP 98.4–100.1; O2SAT 92–99
[2017-01-07] MEDS: INSULIN NovoLIN REGULAR SUPPLEMENTAL SCALE SQ SCH ×4 (02:00→21:29)
[2017-01-07] MEDS: BROMOCRIPTINE MESYLATE 2.5 MG TAB OG-TUBE SCH ×3 (04:10→21:29)
[2017-01-07] MEDS: PIPERACIL-TAZO 3.375 GM PREMIX 50 ML IV SCH ×4 (04:11→21:30)
--- NOTE | 2017-01-07 05:13 | MG ---
cc: DRE SEYMOUR Lab No: Date: 01/06/2017 Age: 66 Sex: F Race: DATE OF 1950 MEDICAL HISTORY The patient does not follow commands. Bifrontal infarction. Recent stroke November 2016. MEDICATIONS 1. Keppra progressively in the hospital. 2. Lipitor. 3. Folic acid. DESCRIPTION The background activity was 5-6 Hz theta superimposed by excessive beta activity. This is associated with polymorphic high amplitude delta and theta waves throughout the recording. The EEG was contaminated with excessive movement artifact. Phase reversal at left frontal region. No hyperventilation was performed. Unable to do photic stimulation. There is marked slowing in the bifrontal regions, more so to the right hemisphere. There were no electrographic seizures noted. INTERPRETATION This is an abnormal EEG with moderate to severe encephalopathy with notable bifrontal slowing, right greater than the left hemisphere region. This may be related to a structural lesion. No electrographic seizures were noted. Absence of electrographic seizures does not without diagnosis of epilepsy. Clinical correlation is recommended. MD ROSENDO Norris/LONNY /4:32 PM /5:04 AM MTDMike
[2017-01-07 06:06] LABS: AUTOMATED NEUTROPHIL # 6.8 TH/MM3 (1.8-7.7); BASOPHIL # 0.1 TH/MM3 (0-0.2); BASOPHIL % 0.7 % (0.0-2.0); EOSINOPHIL # 0.4 TH/MM3 (0-0.4); EOSINOPHIL % 4.3 % (0.0-4.0); HEMATOCRIT 32.1 % (35.0-46.0); HEMO FLAGS DIFF FINAL; LYMPH % 18.4 % (9.0-44.0); LYMPHOCYTE # 1.7 TH/MM3 (1.0-4.8); MEAN CELL VOLUME 80.5 FL (80.0-100.0); MEAN CORPUSCULAR HEMOGLOBIN 26.3 PG (27.0-34.0); MEAN CORPUSCULAR HGB CONC 32.6 % (32.0-36.0); MONO % 4.9 % (0.0-8.0); NEUT % 71.7 % (16.0-70.0); PLATELET COUNT 319 TH/MM3 (150-450); RED BLOOD COUNT 3.98 MIL/MM3 (4.00-5.30); RED CELL DISTRIBUTION WIDTH 18.5 % (11.6-17.2); WHITE BLOOD COUNT 9.4 TH/MM3 (4.0-11.0)
[2017-01-07 06:34] LABS: BICARBONATE 31.9 MEQ/L (21.0-32.0); POTASSIUM 3.6 MEQ/L (3.5-5.1)
[2017-01-07] MEDS: CHLORHEXIDINE 0.12% (ORAL KIT) 15 ML CUP MT SCH (07:04)
[2017-01-07] MEDS: COLLAGENASE OINT 30 GM TUBE TOPICAL SCH (09:00)
[2017-01-07] MEDS: SODIUM CHLORIDE 0.9% FLUSH 10 ML FLUSH IV FLUSH SCH (09:00)
[2017-01-07] MEDS: LACTULOSE SYRUP 20 GM/30 ML CUP PO SCH ×2 (09:00→21:00)
[2017-01-07] MEDS: POLYETHYLENE GLYCOL 17 GM PKG PO SCH (09:00)
[2017-01-07] MEDS: DOCUSATE SODIUM 100 MG/10 ML UDC PO SCH ×2 (09:00→21:00)
[2017-01-07] MEDS: SENNOSIDES SYRUP 8.8 MG/5 ML CUP PO SCH ×2 (09:00→21:30)
--- NOTE | 2017-01-07 09:32 | HHI.PR ---
Subjective Remarks had 10 min left arm szyest am on keppra 1500 bid Objective Vital Signs Date Time Temp Pulse Resp B/P Pulse Ox O2 Delivery O2 Flow Rate FiO2 01/07/17 08:00 94 T-Piece 6.00 28 01/07/17 08:00 100 01/07/17 08:00 98.4 102 24 140/83 96 01/07/17 06:00 102 01/07/17 04:00 96 01/07/17 04:00 94 T-Piece 6.00 28 01/07/17 04:00 100.1 96 20 118/59 96 01/07/17 02:00 128 01/07/17 01:30 96 T-piece 6.00 28 01/07/17 00:00 106 01/07/17 00:00 93 T-Piece 28 01/07/17 00:00 99.5 107 14 143/91 93 01/06/17 22:00 99 01/06/17 20:00 93 T-Piece 01/06/17 20:00 104 01/06/17 20:00 98.4 104 16 164/82 94 01/06/17 18:00 109 01/06/17 17:21 96 T-piece 6.00 28 01/06/17 16:00 99.1 100 22 148/88 98 01/06/17 16:00 100 01/06/17 16:00 96 T-Piece 28 01/06/17 14:00 103 01/06/17 12:00 98.3 95 21 153/73 96 01/06/17 12:00 95 T-Piece 01/06/17 12:00 106 01/06/17 10:00 104 I/O 01/06/17 01/06/17 01/06/17 01/07/17 01/07/17 01/07/17 07:00 15:00 23:00 07:00 15:00 23:00 Intake Total 422 ml 634 ml 512 ml 484 ml Output Total 251 ml 376 ml 301 ml 400 ml Balance 171 ml 258 ml 211 ml 84 ml IV Total 76 ml 89 ml 88 ml 124 ml Tube Feeding 286 ml 425 ml 424 ml 360 ml Tube Irrigant 60 ml 120 ml Output Urine Total 250 ml 375 ml 300 ml 400 ml Stool Total 1 ml 1 ml 1 ml # Bowel Movements 1 Result Diagram: 01/07/1751617 0517 Procedures 11/24/2016 Percutaneous tracheostomy. Objective Remarks not following commands pupils = does moves eyes around and tracks me and rxt to threat nl no command following no change stable now no left arm jerk now Assessment and Plan Assessment and Plan imp huge r frontal cva and inc size left frontal cva may eventually awaken and interact more mri no change resolving cva eeg some left sharps stay on keppra no anticoag now due to size of cva trached and pegged I THINK SHE LOOKS BETTER AND EVENTUALLY MAY INTERACT MORE AND SPEAK WE WILL HAVE TO WAIT AND SEE SOME DAMAGE TO LANGUAGE AREA IN FRONT I THINK BY MRI no change here 01/06/17 focal sz add tegretol check eeg and mri - 01/07/17 no more sz mri not new eeg neg on cbz 4.6 and keppra follow level i will be out of town call neuro isf any new sz Terrence Flores MD Jan 07, 2017 09:32
[2017-01-07] MEDS: levETIRAcetam 500 MG/5 ML UDC NG SCH ×2 (09:40→21:30)
[2017-01-07] MEDS: FOLIC ACID 1 MG TAB OG-TUBE SCH (09:40)
[2017-01-07] MEDS: FAMOTIDINE 20 MG TAB NG SCH ×2 (09:40→21:29)
[2017-01-07] MEDS: ATORVASTATIN 40 MG TAB PO SCH (09:40)
[2017-01-07] MEDS: carBAMazepine SUSP 200 MG/10 ML UDC PEG SCH ×2 (09:40→21:29)
[2017-01-07] MEDS: ASPIRIN 81 MG CHEW TAB NG SCH (09:40)
--- NOTE | 2017-01-07 10:52 | HHI.HCPN ---
Reason for visit a. To assist with evaluation and management of symptoms including: encephalopathy, seizure, dyspnea, weakness, constipation. b. To assist medical decision maker(s) with: better understanding of current medical conditions; weighing benefits/burdens of medical treatment options; making medical treatment decisions. . Subjective/Interval History Seen to follow up on comfort, neurological status; palliative rcvd VM from carolina Joyce prior to arrival to unit, requesting update. Nsg reports approx 10 min seizure yesterday, noted to left arm. Neurology following-- repeat MRI, EEG ordered. EEG without sz activity noted, +mod to severe encephalopathy. MRI with no new findings/no changes from prior exam. VSS. low grade temp 100.1. WBC wnl. other labs unremarkable. Cont to tolerate 28% T piece x several weeks. Tolerating TF via peg. No changes in neuro assessment. manager terminal placement pending facility acceptance. Pt seen in room no visitors present. She is with eyes closed, opens some to loud verbal touch. Does not track me. No withdraw to pain on extremities, + blinks to pain. Eyes closed/lethargic when not stimulating pt. Following exam call to carolina Joyce, she has questions RE neuro assess, seizure , recent diagnostics. Review EEG, MRI findings, neuro recommendations. Review current clinical assess, other recent diagnostics. All questions answered. She indicates she has occasionally seen a twitching motion which she wondered if it was sz activity. Advise she can notify nsg if she sees when visiting, pt remains at risk for ongoing sz r/t brain injury/neuro prognosis. D/w primary RN. . Advance Directives Living Will: Never completed Health Care Surrogate: Never completed Durable Power of Artificial Stone Applicator: Never completed Advance Directive Specifics Health Care Surrogate(s): No known written advance directives. Patient currently incapacitated to make her healthcare decisions. According to [place] statutes health care proxy decision-making falls to the majority of adult children. Patient has 3 children. . Objective Vital Signs Date Time Temp Pulse Resp B/P Pulse Ox O2 Delivery O2 Flow Rate FiO2 01/07/17 08:00 94 T-Piece 6.00 28 01/07/17 08:00 100 01/07/17 08:00 98.4 102 24 140/83 96 01/07/17 06:00 102 01/07/17 04:00 96 01/07/17 04:00 94 T-Piece 6.00 28 01/07/17 04:00 100.1 96 20 118/59 96 01/07/17 02:00 128 01/07/17 01:30 96 T-piece 6.00 28 01/07/17 00:00 106 01/07/17 00:00 93 T-Piece 28 01/07/17 00:00 99.5 107 14 143/91 93 01/06/17 22:00 99 01/06/17 20:00 93 T-Piece 28 01/06/17 20:00 104 01/06/17 20:00 98.4 104 16 164/82 94 01/06/17 18:00 109 01/06/17 17:21 96 T-piece 6.00 28 01/06/17 16:00 99.1 100 22 148/88 98 01/06/17 16:00 100 01/06/17 16:00 96 T-Piece 28 01/06/17 14:00 103 01/06/17 12:00 98.3 95 21 153/73 96 01/06/17 12:00 95 T-Piece 01/06/17 12:00 106 Intake & Output 01/07/17 01/07/17 07:00 19:00 Intake Total 996 ml Output Total 701 ml Balance 295 ml IV Total 212 ml Tube Feeding 784 ml Output Urine Total 700 ml Stool Total 1 ml # Bowel Movements 1 Physical Exam CONSTITUTIONAL/GENERAL: lethargic, minimally responsive pt on tpiece. TUBES/LINES/DRAINS: PIV LFA , Tracheostomy, PEG, Brown, SCDs, multipodus boots. CARDIOVASCULAR: Regular rate and rhythm, no murmur. RESPIRATORY/CHEST: trach midline. Symmetric, unlabored respirations via trach to 28% FIO2 on T piece . Clear to auscultation. GASTROINTESTINAL: Abdomen soft, nondistended. Bowel sounds active. +PEG LUQ site asymptomatic, +TF infusing GENITOURINARY: Without palpable bladder distension. Brown catheter in place- clear yellow urine. NEUROLOGICAL: Eyes closed, intermittently opens to stimuli. Does not track examiner. Blinks to pain stimuli to extremities. No withdrawal to pain stimuli to extremities. Does not keep eyes open/lethargic. PSYCHIATRIC: limited assess due to clinical condition-- no signs of anxiety or distress . Diagnostic Tests Laboratory Laboratory Tests Test 01/06/17 01/07/17 10:25 05:17 Carbamazepine (Tegretol) Level LESS THAN 0.5 4.6 MCG/ML MCG/ML (4.0-12.0) (4.0-12.0) White Blood Count 9.4 TH/MM3 (4.0-11.0) Red Blood Count 3.98 MIL/MM3 (4.00-5.30) Hemoglobin 10.5 GM/DL (11.6-15.3) Hematocrit 32.1 % (35.0-46.0) Mean Corpuscular Volume 80.5 FL (80.0-100.0) Mean Corpuscular Hemoglobin 26.3 PG (27.0-34.0) Mean Corpuscular Hemoglobin 32.6 % Concent (32.0-36.0) Red Cell Distribution Width 18.5 % (11.6-17.2) Platelet Count 319 TH/MM3 (150-450) Mean Platelet Volume 9.0 FL (7.0-11.0) Neutrophils (%) (Auto) 71.7 % (16.0-70.0) Lymphocytes (%) (Auto) 18.4 % (9.0-44.0) Monocytes (%) (Auto) 4.9 % (0.0-8.0) Eosinophils (%) (Auto) 4.3 % (0.0-4.0) Basophils (%) (Auto) 0.7 % (0.0-2.0) Neutrophils # (Auto) 6.8 TH/MM3 (1.8-7.7) Lymphocytes # (Auto) 1.7 TH/MM3 (1.0-4.8) Monocytes # (Auto) 0.5 TH/MM3 (0-0.9) Eosinophils # (Auto) 0.4 TH/MM3 (0-0.4) Basophils # (Auto) 0.1 TH/MM3 (0-0.2) CBC Comment DIFF FINAL Differential Comment Sodium Level 151 MEQ/L (136-145) Potassium Level 3.6 MEQ/L (3.5-5.1) Chloride Level 112 MEQ/L (98-107) Carbon Dioxide Level 31.9 MEQ/L (21.0-32.0) Anion Gap 7 MEQ/L (5-15) Blood Urea Nitrogen 23 MG/DL (7-18) Creatinine 0.48 MG/DL (0.50-1.00) Estimat Glomerular Filtration 130 ML/MIN Rate (>89) Random Glucose 108 MG/DL (74-106) Calcium Level 8.8 MG/DL (8.5-10.1) Result Diagram: 01/07/17 0517 01/07/17 0517 Imaging Last Impressions Brain MRI 01/06/17 0000 Signed Impressions: Service Date/Time: January 14:19 - CONCLUSION: Continued evolutionary changes of large bilateral frontal lobe infarcts. Sami Mccarthy MD Chest X-Ray 12/31/16 0000 Signed Impressions: Service Date/Time: Saturday, December 31, 2016 19:39 - CONCLUSION: Stable cardiomegaly. Clear lungs. Peña Diana Jr., MD Abdomen X-Ray 11/26/16 0000 Signed Impressions: Service Date/Time: Saturday, November 26, 2016 10:18 - CONCLUSION: Distended stomach otherwise nonspecific abdomen. K. David Murillo MD Procedures 11/22 - PEG placement 11/30 - tracheostomy Assessment and Plan Disease Oriented Problem List: (1) CVA (cerebral vascular accident) (2) Moyamoya disease (3) Seizure Comment: On Keppra . (4) Generalized weakness Symptom Scale: (1) Seizure 0-10 Scale: Unable to quantify (2) Generalized weakness 0-10 Scale: Unable to quantify (3) Dyspnea 0-10 Scale: Unable to quantify (4) Constipation 0-10 Scale: Unable to quantify (5) Encephalopathy 0-10 Scale: Unable to quantify Pertinent Non-Medical Issues Psychosocial: Single. Has 2 daughters and one son. Spiritual: unknown. Legal: Patient is incapacitated to make healthcare decisions. No known written advanced directives. According to [place] Statutes, health care proxy decision making falls to majority of adult children. Patient has 2 daughters (Marcelo Joyce) and 1 son (Dwight). Ethical issues impacting care: No known concerns at this time. . Important Contacts * Maria Del Carmen Rivas, daughter: [phone] * Marcelo Rivas, daughter: [phone] * Dwight Rivas, son: [phone] . Prognosis MRI/EEG reviewed by neurology, prognosis felt to be poor, infarct noted to be huge. Repeat MRI done 12/[address] Flores and he feels that she may regain some ability to speak but does note that the infarct was a huge right frontal CVA and increased size of the left frontal CVA. EEG showed some left "sharps" and his recommendation was to continue Keppra. Prognosis remains poor in light of the most current studies. Code Status: Full Code Plan * Patient is incapacitated to make healthcare decisions. No known written advanced directives. According to [place] Statutes, health care proxy decision making falls to majority of adult children. Patient has 2 daughters (Marcelo Joyce) and 1 son (Dwight). * CODE STATUSFULL CODE * GOALS: Currently remain aggressive. There are differing opinions between the 2 daughters regarding DNR status ; they would continue full CODE STATUS until the family could reach a consensus. SYMPTOMS: * Seizure: hx seizures 2/2 CVA; EEG showed "left sharps" and was continued per neurology. She remains on Keppra, + sz reported yesterday (repeat eeg= no seizure, + mod to severe encephalopathy) Tegratol added by neuro * Weakness: due to prolonged hospital course, bilateral infarcts. Not regaining any purposeful or spontaneous movements as of yet. PT continues to follow working with bed mobility requiring maximum assistance, not demonstrating any participation. Placement is pending. She has thus far been declined by all queried facilities. Case management following. * Dyspnea: Off sedation. tolerating T Piece. Prior Sputum culture shows Staphylococcus aureus and pseudomonas aeruginosa unchanged since sputum culture done 12/15 showing the same 2 organisms. Sensitive to Zosyn. No signs of tachypnea, or dyspnea. She remains at risk for complications due to severe mitral regurgitation, tracheostomy and immobility. * Encephalopathy: no change in alertness or responsiveness. Dr. Flores following. Repeat MRI with no changes. repeat eeg= no seizure, + mod to severe encephalopathy * Constipation: Resolved with regular bowel movements. Palliative care will continue to follow during hospital course as condition evolves, to assist patient/decision-maker with understanding of medical conditions, weighing benefits/burdens of treatment options, for clarification of goals of treatment. Additionally will assist with any symptoms of palliative concern. . Attestation To help prompt me to consider important information that might be impacting today's encounter and assessment, information from prior notes written by myself or my colleagues may have been "brought forward" into today's note. My signature on this note, however, is an attestation that I personally performed the exam, history, and/or decision-making noted today, and, unless otherwise indicated, the interactions with patient, family, and staff as well as the review of records all occurred today. I also attest that the listed assessment and stated plan reflect my best clinical judgment today based on the combination of historical information, prior notes, and today's exam/ interactions. When time spent is documented, it refers only to time spent today by the signer, or if indicated, combined time spent today by collaborating physician/nurse practitioner. Yuridia Almeida Jan 07, 2017 10:52
--- NOTE | 2017-01-07 13:55 | HHI.PR ---
Subjective Remarks No new seizures overnight. VSS. No change. Objective Vitals Vital Signs Date Time Temp Pulse Resp B/P Pulse Ox O2 Delivery O2 Flow Rate FiO2 01/07/17 12:00 92 01/07/17 12:00 99.2 96 21 121/67 96 01/07/17 11:00 97 19 138/96 97 01/07/17 10:00 102 01/07/17 10:00 91 18 139/79 99 01/07/17 09:00 94 14 133/84 98 01/07/17 08:38 99 T-piece 5.00 28 01/07/17 08:00 94 T-Piece 6.00 28 01/07/17 08:00 100 01/07/17 08:00 98.4 102 24 140/83 96 01/07/17 08:00 102 24 140/83 96 01/07/17 07:00 95 19 137/77 96 01/07/17 06:00 102 01/07/17 04:00 96 01/07/17 04:00 94 T-Piece 6.00 01/07/17 04:00 100.1 96 20 118/59 96 01/07/17 02:00 128 01/07/17 01:30 96 T-piece 6.00 01/07/17 00:00 106 01/07/17 00:00 93 T-Piece 01/07/17 00:00 99.5 107 14 143/91 93 01/06/17 22:00 99 01/06/17 20:00 93 T-Piece 01/06/17 20:00 104 01/06/17 20:00 98.4 104 16 164/82 94 01/06/17 18:00 109 01/06/17 17:21 96 T-piece 6.00 28 01/06/17 16:00 99.1 100 22 148/88 98 01/06/17 16:00 100 01/06/17 16:00 96 T-Piece 01/06/17 14:00 103 I/O 01/06/17 01/06/17 01/06/17 01/07/17 01/07/17 01/07/17 07:00 15:00 23:00 07:00 15:00 23:00 Intake Total 422 ml 634 ml 512 ml 484 ml Output Total 251 ml 376 ml 301 ml 400 ml Balance 171 ml 258 ml 211 ml 84 ml IV Total 76 ml 89 ml 88 ml 124 ml Tube Feeding 286 ml 425 ml 424 ml 360 ml Tube Irrigant 60 ml 120 ml Output Urine Total 250 ml 375 ml 300 ml 400 ml Stool Total 1 ml 1 ml 1 ml # Bowel Movements 1 Result Diagram: 01/07/1751601/07/17516 Imaging Last Impressions Brain MRI 01/06/17 0000 Signed Impressions: Service Date/Time: January 14:19 - CONCLUSION: Continued evolutionary changes of large bilateral frontal lobe infarcts. Sami Mccarthy MD Chest X-Ray 12/31/16 0000 Signed Impressions: Service Date/Time: Saturday, December 31, 2016 19:39 - CONCLUSION: Stable cardiomegaly. Clear lungs. Peña Diana Jr., MD Abdomen X-Ray 11/26/16 0000 Signed Impressions: Service Date/Time: Saturday, November 26, 2016 10:18 - CONCLUSION: Distended stomach otherwise nonspecific abdomen. K. David Murillo MD Objective Remarks GENERAL: Alert, sleepy, eyes open, does not respond to verbal commands. Currently on T piece. SKIN: Warm and dry. HEAD: Normocephalic. EYES: No scleral icterus. No injection or drainage. NECK: Supple, trachea midline. No JVD or lymphadenopathy. CARDIOVASCULAR: Regular rhythm, tachycardic without murmurs, gallops, or rubs. RESPIRATORY: Breath sounds equal bilaterally. No accessory muscle use. GASTROINTESTINAL: Abdomen soft, obese, non-tender, nondistended. MUSCULOSKELETAL: No cyanosis, or edema. Procedures 11/24/2016 Percutaneous tracheostomy. 11/18/2016 Moderate encephalopathy with suggestion of left temporal region cortical irritability. No active seizures. Clinical correlation. 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 Rivas is a 66-year-old female with a history of stroke who was admitted to the [facility] on 11/04/2016 due to difficulty getting her thoughts together. She was found to have multifocal nonhemorrhagic infarctions in the frontal and parietal regions. She was initially awake and following commands with weakness of RLE and some aphasia. She was transferred to [facility] where he had an cerebral angiogram consistent with moyamoya. There were plans to perform extracranial/intracranial bypass. However she had a seizure and ended up being intubated for status either 11/09 or 11/10.. She was found to have a new right frontal infarct area and she was started on Dilantin and Keppra and it was felt that she would not be a candidate for intervention. She has been intubated 9-10 days and apparently she has been tolerating C Pap trials to some extent but mental status prevents extubation. Treating team was discussing with family trach/PEG. Apparently family requested transfer back to [place] because they live locally here and wanted her closer to home. Patient remained under critical care medicine until 12/24/2016. Bilateral large frontal CVA Moyamoya - confirmed by arteriogram at [facility] October 2016. Seizure disorder Breakthrough seizures noted 01/06/17. Dr Flores neuro following. Repeat EEG no seizures and MRI no new findings. Continue keppra. Started tegretol per neuro. 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 Added tegretol as noted breaktrheough seizures 01/06. EEG, MRI no new changes. Continue ASA 324 mg daily, atorvastatin 40 mg by mouth daily Continue bromocriptine 2.5 mg by mouth BID EEG-noted sharp spikes Neurology is following at a distance-Dr. Flores Has been evaluated tertiary care center [place] and felt to not be a candidate for further intervention. - COPD stable - Acute respiratory failure - currently on T piece. decreased Tracheostomy tube size by [employer] redevelopment specialist. - Multilobar pneumonia Status post tracheostomy on 11/24/2016. Pulmonary following. Continue Zosyn 3.375 g every 6 hours DuoNeb when necessary -Anemia iron deficiency stable will give Iron IV. - Nutrition - continue Jevity 1.5 through PEG tube. Full code. SCDs. Famotidine twice a day Status post Downgrade of her Tracheostomy tube, next step to cap it. No changes to anterior assessment. Laboratory was reviewed. Patient needs LTAC Dc pending improvement and clearance from consultants. Patient had breakthrough seizures, EEG, MRI no new changes. Angela Trejo MD Jan 07, 2017 13:55
--- NOTE | 2017-01-07 18:11 | HHI.PR ---
Subjective Remarks 66 YOWF with Rf, s/p trach H/O CVA,Arango Arango disease On trach collar Awake, does't follow commands No fever. Objective Vital Signs Vital Signs Date Time Temp Pulse Resp B/P Pulse Ox O2 Delivery O2 Flow Rate FiO2 01/07/17 18:00 93 01/07/17 16:00 104 01/07/17 16:00 98.4 102 22 140/73 97 01/07/17 15:00 100 27 129/83 96 01/07/17 14:00 100 20 98 01/07/17 14:00 101 01/07/17 13:00 97 26 122/76 95 01/07/17 12:00 92 01/07/17 12:00 99.2 96 21 121/67 96 01/07/17 11:00 97 19 138/96 97 01/07/17 10:00 102 01/07/17 10:00 91 18 139/79 99 01/07/17 09:00 94 14 133/84 98 01/07/17 08:38 99 T-piece 5.00 28 01/07/17 08:00 94 T-Piece 6.00 28 01/07/17 08:00 100 01/07/17 08:00 98.4 102 24 140/83 96 01/07/17 08:00 102 24 140/83 96 01/07/17 07:00 95 19 137/77 96 01/07/17 06:00 102 01/07/17 04:00 96 01/07/17 04:00 94 T-Piece 6.00 01/07/17 04:00 100.1 96 20 118/59 96 01/07/17 02:00 128 01/07/17 01:30 96 T-piece 6.00 28 01/07/17 00:00 106 01/07/17 00:00 93 T-Piece 28 01/07/17 00:00 99.5 107 14 143/91 93 01/06/17 22:00 99 01/06/17 20:00 93 T-Piece 28 01/06/17 20:00 104 01/06/17 20:00 98.4 104 16 164/82 94 I/O 01/06/17 01/06/17 01/06/17 01/07/17 01/07/17 01/07/17 06:59 14:59 22:59 06:59 14:59 22:59 Intake Total 422 ml 634 ml 512 ml 484 ml 626 ml Output Total 251 ml 376 ml 301 ml 400 ml 400 ml Balance 171 ml 258 ml 211 ml 84 ml 226 ml IV Total 76 ml 89 ml 88 ml 124 ml 98 ml Tube Feeding 286 ml 425 ml 424 ml 360 ml 528 ml Tube Irrigant 60 ml 120 ml Output Urine Total 250 ml 375 ml 300 ml 400 ml 400 ml Stool Total 1 ml 1 ml 1 ml # Bowel Movements 1 Result Diagram: 01/07/1751601/07/17516 Objective Remarks GENERAL: MBMN WF, on Trach collar SKIN: Warm and dry. HEAD: Normocephalic. EYES: No scleral icterus. No injection or drainage. NECK: Supple, trachea midline. No JVD or lymphadenopathy. has trach CARDIOVASCULAR: Regular rate and rhythm without murmurs, gallops, or rubs. RESPIRATORY: Breath sounds equal bilaterally. No accessory muscle use. GASTROINTESTINAL: Abdomen soft, non-tender, nondistended. has PEG MUSCULOSKELETAL: No cyanosis, or edema. BACK: Nontender without obvious deformity. No CVA tenderness. A/P Assessment and Plan RF, S/P Trach CVA Arango arango disease CAD COPD SZ disorder PLAN: Aerosol nebs Cont trach collar supplement 02 Cont TF DW Vernon Wagner MD Jan 07, 2017 18:11
[2017-01-08] VITALS (14 sets, daily range): BP systolic 116–131; BP diastolic 60–79; PULSE 94–115; RESP 17–24; TEMP 98.5–100; O2SAT 95–100
[2017-01-08] MEDS: INSULIN NovoLIN REGULAR SUPPLEMENTAL SCALE SQ SCH ×4 (02:00→20:00)
[2017-01-08] MEDS: PIPERACIL-TAZO 3.375 GM PREMIX 50 ML IV SCH ×4 (04:22→22:56)
[2017-01-08] MEDS: SODIUM CHLORIDE 0.9% FLUSH 10 ML FLUSH IV FLUSH SCH ×3 (04:23→21:02)
--- NOTE | 2017-01-08 07:47 | HHI.PR ---
Subjective Remarks Brief episode of right hand twitching overnight, will do EEG. Otherwise VSS. Objective Vitals Vital Signs Date Time Temp Pulse Resp B/P Pulse Ox O2 Delivery O2 Flow Rate FiO2 01/08/17 06:00 105 01/08/17 04:00 98.7 99 24 131/79 97 01/08/17 04:00 99 01/08/17 02:00 102 01/08/17 00:00 99.4 94 18 126/70 96 01/08/17 00:00 102 01/07/17 23:00 94 15 106/59 92 01/07/17 22:00 102 01/07/17 22:00 110 27 156/100 96 01/07/17 21:00 110 31 158/109 93 01/07/17 20:45 95 T-piece 5.00 01/07/17 20:00 111 26 161/93 96 01/07/17 20:00 99.1 103 18 161/93 98 01/07/17 20:00 94 T-Piece 01/07/17 20:00 103 01/07/17 18:00 100 34 131/73 97 01/07/17 18:00 93 01/07/17 17:00 103 27 133/89 96 01/07/17 16:00 104 01/07/17 16:00 98.4 102 22 140/73 97 01/07/17 15:00 100 27 129/83 96 01/07/17 14:00 100 20 98 01/07/17 14:00 101 01/07/17 13:00 97 26 122/76 95 01/07/17 12:00 92 01/07/17 12:00 99.2 96 21 121/67 96 01/07/17 11:00 97 19 138/96 97 01/07/17 10:00 102 01/07/17 10:00 91 18 139/79 99 01/07/17 09:00 94 14 133/84 98 01/07/17 08:38 99 T-piece 5.00 01/07/17 08:00 94 T-Piece 6.00 01/07/17 08:00 100 01/07/17 08:00 98.4 102 24 140/83 96 01/07/17 08:00 102 24 140/83 96 I/O 6/2/17 01/07/17 01/07/17 01/08/17 01/08/17 01/08/17 07:00 15:00 23:00 07:00 15:00 23:00 Intake Total 484 ml 626 ml 650 ml 484 ml Output Total 400 ml 400 ml 300 ml 400 ml Balance 84 ml 226 ml 350 ml 84 ml IV Total 124 ml 98 ml 180 ml 80 ml Tube Feeding 360 ml 528 ml 470 ml 404 ml Output Urine Total 400 ml 400 ml 300 ml 400 ml # Bowel Movements 1 1 Result Diagram: 01/07/17 0517 01/07/17 0517 Imaging Last Impressions Brain MRI 01/06/17 0000 Signed Impressions: Service Date/Time: January 14:19 - CONCLUSION: Continued evolutionary changes of large bilateral frontal lobe infarcts. Sami Mccarthy MD Chest X-Ray 12/31/16 0000 Signed Impressions: Service Date/Time: Saturday, December 31, 2016 19:39 - CONCLUSION: Stable cardiomegaly. Clear lungs. Peña Diana Jr., MD Abdomen X-Ray 11/26/16 0000 Signed Impressions: Service Date/Time: Saturday, November 26, 2016 10:18 - CONCLUSION: Distended stomach otherwise nonspecific abdomen. K. David Murillo MD Objective Remarks GENERAL: Alert, sleepy, eyes open, does not respond to verbal commands. Currently on T piece. SKIN: Warm and dry. HEAD: Normocephalic. EYES: No scleral icterus. No injection or drainage. NECK: Supple, trachea midline. No JVD or lymphadenopathy. CARDIOVASCULAR: Regular rhythm, tachycardic without murmurs, gallops, or rubs. RESPIRATORY: Breath sounds equal bilaterally. No accessory muscle use. GASTROINTESTINAL: Abdomen soft, obese, non-tender, nondistended. MUSCULOSKELETAL: No cyanosis, or edema. Procedures 11/24/2016 Percutaneous tracheostomy. 11/18/2016 Moderate encephalopathy with suggestion of left temporal region cortical irritability. No active seizures. Clinical correlation. 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 Rivas is a 66-year-old female with a history of stroke who was admitted to the [facility] on 11/04/2016 due to difficulty getting her thoughts together. She was found to have multifocal nonhemorrhagic infarctions in the frontal and parietal regions. She was initially awake and following commands with weakness of RLE and some aphasia. She was transferred to [facility] where he had an cerebral angiogram consistent with moyamoya. There were plans to perform extracranial/intracranial bypass. However she had a seizure and ended up being intubated for status either 11/09 or 11/10.. She was found to have a new right frontal infarct area and she was started on Dilantin and Keppra and it was felt that she would not be a candidate for intervention. She has been intubated 9-10 days and apparently she has been tolerating C Pap trials to some extent but mental status prevents extubation. Treating team was discussing with family trach/PEG. Apparently family requested transfer back to [place] because they live locally here and wanted her closer to home. Patient remained under critical care medicine until 12/24/2016. Bilateral large frontal CVA Moyamoya - confirmed by arteriogram at [facility] October 2016. Seizure disorder Breakthrough seizures noted 01/06/17. Dr Flores neuro following. Repeat EEG no seizures and MRI no new findings. Continue keppra. Started tegretol per neuro. Brief episode of seizure -twitching of right arm overnight . Will repeat EEG. Neurology notified. 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 Added tegretol as noted breaktrheough seizures 01/06. EEG, MRI no new changes. Continue ASA 324 mg daily, atorvastatin 40 mg by mouth daily Continue bromocriptine 2.5 mg by mouth BID EEG-noted sharp spikes Neurology is following at a distance-Dr. Flores Has been evaluated tertiary care center [place] and felt to not be a candidate for further intervention. - COPD stable - Acute respiratory failure - currently on T piece. decreased Tracheostomy tube size by field support specialist. - Multilobar pneumonia Status post tracheostomy on 11/24/2016. Pulmonary following. Continue Zosyn 3.375 g every 6 hours DuoNeb when necessary -Anemia iron deficiency stable will give Iron IV. - Nutrition - continue Jevity 1.5 through PEG tube. Full code. SCDs. Famotidine twice a day Status post Downgrade of her Tracheostomy tube, next step to cap it. No changes to anterior assessment. Laboratory was reviewed. Patient needs LTAC Dc pending improvement and clearance from consultants. Patient had breakthrough seizures 01/06 EEG, MRI no new changes. Seizure episode overnight 01/08, EEG pending , neuro notified Angela Trejo MD Jan 08, 2017 07:47
[2017-01-08] MEDS: CHLORHEXIDINE 0.12% (ORAL KIT) 15 ML CUP MT SCH ×2 (08:17→20:42)
[2017-01-08] MEDS: ASPIRIN 81 MG CHEW TAB NG SCH (08:18)
[2017-01-08] MEDS: ATORVASTATIN 40 MG TAB PO SCH (08:18)
[2017-01-08] MEDS: POLYETHYLENE GLYCOL 17 GM PKG PO SCH (08:18)
[2017-01-08] MEDS: levETIRAcetam 500 MG/5 ML UDC NG SCH ×2 (08:18→20:43)
[2017-01-08] MEDS: FAMOTIDINE 20 MG TAB NG SCH ×2 (08:18→20:44)
[2017-01-08] MEDS: carBAMazepine SUSP 200 MG/10 ML UDC PEG SCH ×2 (08:19→20:43)
[2017-01-08] MEDS: LACTULOSE SYRUP 20 GM/30 ML CUP PO SCH ×2 (08:19→20:43)
[2017-01-08] MEDS: DOCUSATE SODIUM 100 MG/10 ML UDC PO SCH ×2 (08:19→20:44)
[2017-01-08] MEDS: BROMOCRIPTINE MESYLATE 2.5 MG TAB OG-TUBE SCH ×2 (08:19→20:44)
[2017-01-08] MEDS: FOLIC ACID 1 MG TAB OG-TUBE SCH (08:19)
[2017-01-08] MEDS: SENNOSIDES SYRUP 8.8 MG/5 ML CUP PO SCH ×2 (08:19→20:43)
[2017-01-08] MEDS: COLLAGENASE OINT 30 GM TUBE TOPICAL SCH (08:21)
--- NOTE | 2017-01-08 13:34 | HHI.PR ---
Subjective Remarks 66 YOWF with Rf, s/p trach H/O CVA,Arango Arango disease On trach collar Awake, does't follow commands No fever. Had twitching movements of hand Objective Vital Signs Vital Signs Date Time Temp Pulse Resp B/P Pulse Ox O2 Delivery O2 Flow Rate FiO2 01/08/17 08:06 97 T-piece 5.00 28 01/08/17 08:00 98 01/08/17 08:00 99.0 98 22 118/75 100 01/08/17 08:00 100 T-Piece 28 01/08/17 06:00 105 01/08/17 04:00 98.7 99 24 131/79 97 01/08/17 04:00 99 01/08/17 02:00 102 01/08/17 00:00 99.4 94 18 126/70 96 01/08/17 00:00 102 01/07/17 23:00 94 15 106/59 92 01/07/17 22:00 102 01/07/17 22:00 110 27 156/100 96 01/07/17 21:00 110 31 158/109 93 01/07/17 20:45 95 T-piece 5.00 01/07/17 20:00 111 26 161/93 96 01/07/17 20:00 99.1 103 18 161/93 98 01/07/17 20:00 94 T-Piece 01/07/17 20:00 103 01/07/17 18:00 100 34 131/73 97 01/07/17 18:00 93 01/07/17 17:00 103 27 133/89 96 01/07/17 16:00 104 01/07/17 16:00 98.4 102 22 140/73 97 01/07/17 15:00 100 27 129/83 96 01/07/17 14:00 100 20 98 01/07/17 14:00 101 I/O 01/07/17 01/07/17 01/07/17 01/08/17 01/08/17 01/08/17 07:00 15:00 23:00 07:00 15:00 23:00 Intake Total 484 ml 626 ml 650 ml 484 ml Output Total 400 ml 400 ml 300 ml 400 ml Balance 84 ml 226 ml 350 ml 84 ml IV Total 124 ml 98 ml 180 ml 80 ml Tube Feeding 360 ml 528 ml 470 ml 404 ml Output Urine Total 400 ml 400 ml 300 ml 400 ml # Bowel Movements 1 1 Result Diagram: 01/07/1751601/07/17516 Objective Remarks GENERAL: MBMN WF, on Trach collar SKIN: Warm and dry. HEAD: Normocephalic. EYES: No scleral icterus. No injection or drainage. NECK: Supple, trachea midline. No JVD or lymphadenopathy. has trach CARDIOVASCULAR: Regular rate and rhythm without murmurs, gallops, or rubs. RESPIRATORY: Breath sounds equal bilaterally. No accessory muscle use. GASTROINTESTINAL: Abdomen soft, non-tender, nondistended. has PEG MUSCULOSKELETAL: No cyanosis, or edema. BACK: Nontender without obvious deformity. No CVA tenderness. A/P Assessment and Plan RF, S/P Trach CVA Arango arango disease CAD COPD SZ disorder PLAN: Aerosol nebs Cont trach collar supplement 02 Cont TF Vernon Catalan RN, MD Jan 08, 2017 13:34
[2017-01-08] MEDS: CHLORHEXIDINE GLUCONATE 2 % 1 PACK (2 CLOTHS) TOP SCH (19:46)
[2017-01-08] MEDS: RESP: ALBUTEROL 2.5 MG/3 ML NEB (PRN) INH (22:43)
[2017-01-09] VITALS (14 sets, daily range): BP systolic 128–171; BP diastolic 73–96; PULSE 98–116; RESP 24–35; TEMP 98.5–99.4; O2SAT 95–98
[2017-01-09] MEDS: INSULIN NovoLIN REGULAR SUPPLEMENTAL SCALE SQ SCH ×4 (02:00→20:00)
[2017-01-09] MEDS: PIPERACIL-TAZO 3.375 GM PREMIX 50 ML IV SCH ×2 (05:56→09:04)
[2017-01-09] MEDS: ASPIRIN 81 MG CHEW TAB NG SCH (07:57)
[2017-01-09] MEDS: POLYETHYLENE GLYCOL 17 GM PKG PO SCH (07:58)
[2017-01-09] MEDS: SODIUM CHLORIDE 0.9% FLUSH 10 ML FLUSH IV FLUSH SCH ×2 (07:58→20:20)
[2017-01-09] MEDS: LACTULOSE SYRUP 20 GM/30 ML CUP PO SCH ×2 (07:58→20:20)
[2017-01-09] MEDS: DOCUSATE SODIUM 100 MG/10 ML UDC PO SCH ×2 (07:59→20:20)
[2017-01-09] MEDS: FOLIC ACID 1 MG TAB OG-TUBE SCH (07:59)
[2017-01-09] MEDS: levETIRAcetam 500 MG/5 ML UDC NG SCH ×2 (07:59→20:20)
[2017-01-09] MEDS: ATORVASTATIN 40 MG TAB PO SCH (07:59)
[2017-01-09] MEDS: carBAMazepine SUSP 200 MG/10 ML UDC PEG SCH ×2 (07:59→20:20)
[2017-01-09] MEDS: FAMOTIDINE 20 MG TAB NG SCH ×2 (07:59→20:21)
[2017-01-09] MEDS: SENNOSIDES SYRUP 8.8 MG/5 ML CUP PO SCH ×2 (08:00→20:20)
[2017-01-09] MEDS: CHLORHEXIDINE 0.12% (ORAL KIT) 15 ML CUP MT SCH ×2 (08:00→20:20)
[2017-01-09] MEDS: COLLAGENASE OINT 30 GM TUBE TOPICAL SCH (08:00)
[2017-01-09] MEDS: HYOSCYAMINE SOLN 0.125 MG/ML 15 ML BTL PO PRN (08:03)
[2017-01-09] MEDS: BROMOCRIPTINE MESYLATE 2.5 MG TAB OG-TUBE SCH ×2 (09:00→20:21)
--- NOTE | 2017-01-09 11:18 | HHI.PR ---
Subjective Remarks Follow up for CVA Pt encountered laying a bed, eyes open, not responding to commands. Pt's RN reported pt with thick secretions, otherwise stable. Other than above, no new issues reported or noted. Objective Vitals Vital Signs Date Time Temp Pulse Resp B/P Pulse Ox O2 Delivery O2 Flow Rate FiO2 01/09/17 08:00 107 01/09/17 08:00 99.1 101 24 128/76 95 01/09/17 08:00 98 T-Piece 28 01/09/17 07:35 98 T-piece 6.00 28 01/09/17 06:00 113 01/09/17 04:00 98.5 115 29 152/89 96 01/09/17 04:00 115 01/09/17 02:00 116 01/09/17 00:00 98.6 109 35 153/86 96 01/09/17 00:00 109 01/08/17 22:00 115 01/08/17 20:06 98 T-piece 6.00 28 01/08/17 20:00 97 01/08/17 20:00 98.5 97 17 116/60 98 01/08/17 20:00 98 T-Piece 28 01/08/17 18:00 107 01/08/17 16:00 101 01/08/17 16:00 100.0 95 24 122/69 95 01/08/17 14:00 108 01/08/17 12:00 97 01/08/17 12:00 99.0 97 22 129/62 96 I/O 01/08/17 01/08/17 01/08/17 01/09/17 01/09/17 01/09/17 07:00 15:00 23:00 07:00 15:00 23:00 Intake Total 484 ml 661 ml 450 ml 464 ml Output Total 400 ml 440 ml 300 ml 400 ml Balance 84 ml 221 ml 150 ml 64 ml IV Total 80 ml 111 ml 50 ml 50 ml Tube Feeding 404 ml 550 ml 400 ml 414 ml Output Urine Total 400 ml 440 ml 300 ml 400 ml # Bowel Movements 1 1 1 Result Diagram: 01/07/1751601/07/17516 Imaging Last Impressions Brain MRI 01/06/17 0000 Signed Impressions: Service Date/Time: January 14:19 - CONCLUSION: Continued evolutionary changes of large bilateral frontal lobe infarcts. Sami R Mccarthy, MD Chest X-Ray 12/31/16 0000 Signed Impressions: Service Date/Time: Saturday, December 31, 2016 19:39 - CONCLUSION: Stable cardiomegaly. Clear lungs. Peña Diana Jr., MD Abdomen X-Ray 11/26/16 0000 Signed Impressions: Service Date/Time: Saturday, November 26, 2016 10:18 - CONCLUSION: Distended stomach otherwise nonspecific abdomen. K. David Murillo MD Objective Remarks GENERAL: Pt encountered laying a bed, T-piece in place, eyes open and closing, in NAD. SKIN: Warm and dry. HEAD: Normocephalic. EYES: No scleral icterus. No injection or drainage. NECK: Supple, t-piece in place. CARDIOVASCULAR: Tachycardic rate and regular rhythm without murmurs, gallops, or rubs. RESPIRATORY: Breath sounds equal bilaterally. On respirator. GASTROINTESTINAL: Abdomen soft, non-tender, nondistended. G-tube in place MUSCULOSKELETAL: No cyanosis, or edema. bilateral SCD's in place as were bilateral off loading boots. Neurological: Pt not responding to commands, no spontaneous movement observed except for eye blink. Pt being prepared for EEG as permit technician was observed to place electrodes. Procedures 11/24/2016 Percutaneous tracheostomy. 11/18/2016 Moderate encephalopathy with suggestion of left temporal region cortical irritability. No active seizures. Clinical correlation. Medications and IVs Current Medications Medications (Trade) Dose Ordered Sig/Ora Route Start Time Stop Time Status Last Admin (Peridex 0.12% Liq) 15 ml BID@08,20 MT 11/18/16 08:00 01/09/17 08:00 (NS Flush) 2 ml BID IV FLUSH 11/18/16 09:00 01/09/17 07:58 (Tylenol) 650 mg Q6H PRN PO 11/18/16 03:30 01/01/17 16:01 (Adrian 5-325 Mg) 1 tab Q4H PRN PO 11/18/16 03:30 01/02/17 22:19 (Morphine Inj) 2 mg Q2H PRN IV 11/18/16 03:30 01/01/17 14:33 (Zofran Inj) 4 mg Q6H PRN IV 11/18/16 03:30 11/26/16 03:20 Miscellaneous Information 1 Q361D XX 11/18/16 03:30 11/18/16 03:30 (Chlorhexidine 2% Cloth) Taper DAILY@04 TOP 11/18/16 04:00 11/14/17 03:59 01/06/17 02:00 (Chlorhexidine 2% Cloth) 3 pack UNSCH PRN TOP 11/18/16 03:30 (Aspirin Chew) 324 mg DAILY NG 11/18/16 09:00 01/09/17 07:57 (Lipitor) 40 mg DAILY PO 11/18/16 09:00 01/09/17 07:59 (Parlodel) 2.5 mg Q12HR OG-TUBE 11/18/16 09:00 01/08/17 20:44 Folic Acid 1 mg 1 mg DAILY OG-TUBE 11/18/16 09:00 01/09/17 07:59 Potassium Chloride 100 ml @ 50 mls/hr Q2H PRN IV 11/18/16 13:30 (KCl 20 Meq Premix Inj) 100 ml @ 50 mls/hr Q2H PRN IV 11/18/16 13:30 11/27/16 14:13 Potassium Bicarb/ Potassium Chloride 50 meq 50 meq UNSCH PRN PO 11/18/16 13:30 11/29/16 06:20 Potassium Chloride 100 ml @ 25 mls/hr UNSCH PRN IV 11/18/16 13:30 Potassium Chloride 100 ml @ 50 mls/hr Q2H PRN IV 11/18/16 13:30 11/24/16 06:27 (Magnesium Sulfate Inj/NS Inj) 100 ml @ 50 mls/hr UNSCH PRN IV 11/18/16 13:30 Magnesium Oxide 800 mg 800 mg UNSCH PRN PO 11/18/16 13:30 (Magnesium Sulfate Inj/NS Inj) 100 ml @ 50 mls/hr UNSCH PRN IV 11/18/16 13:30 Potassium Phosphate 2000 mg 2,000 mg Q4H PRN PO 11/18/16 13:30 (Sodium Phosphate Inj/NS 250 ml Inj) 250 ml @ 42 mls/hr UNSCH PRN IV 11/18/16 13:30 Potassium Phosphate 2000 mg 2,000 mg UNSCH PRN PO/TUBE 11/18/16 13:30 (Potassium Phosphate Inj/NS 250 ml Inj) 260 ml @ 42 mls/hr UNSCH PRN IV 11/18/16 13:30 (Senna Liq) 8.8 mg BID PO 11/19/16 21:00 01/09/17 08:00 (Colace Liq) 100 mg Q12HR PO 11/19/16 21:00 01/09/17 07:59 (Miralax) 17 gm DAILY PO 11/21/16 18:00 01/09/17 07:58 (D50w (Vial) Inj) 25 ml UNSCH PRN IV PUSH 11/22/16 08:00 (Glucagon Inj) 1 mg UNSCH PRN OTHER 11/22/16 08:00 (NovoLIN R SUPPLEMENTAL SCALE) 1 Q6H SQ 11/22/16 08:00 01/09/17 09:03 (Lopressor Inj) 5 mg Q6H PRN IV PUSH 11/23/16 22:45 (Lactulose Liq) 15 ml BID PO 11/26/16 09:00 01/09/17 07:58 Bisacodyl 10 mg 10 mg DAILY PRN RECTAL 12/14/16 15:45 (Zosyn 3.375 Gm Premix) 50 ml @ 100 mls/hr Q6H IV 12/19/16 10:00 01/09/17 09:04 (Pepcid) 20 mg BID NG 12/21/16 21:00 01/09/17 07:59 (Keppra Liq) 1,500 mg Q12HR NG 12/21/16 21:00 01/09/17 07:59 (Levsin Liq) 0.125 mg Q4H PRN PO 12/28/16 07:15 01/09/17 08:03 (Santyl Oint) 1 applic DAILY TOPICAL 01/04/17 11:30 01/09/17 08:00 (TEGretol LIQ) 200 mg Q12HR PEG 01/06/17 09:00 01/09/17 07:59 (Free Water) 200 ml Q8HR G-TUBE 01/09/17 14:00 UNV Urinary Catheter: Yes Assessment to: Continue Brown insert reason: Prolonged Immobilization Date of Insertion: Nov 19, 2016 A/P Problem List: (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 She was was admitted to [facility] emergency department 11/04/16 with difficulty getting her thoughts together. She was found to have multifocal nonhemorrhagic infarcts in left frontal and parietal regions, right frontal lobe and history of moyamoya disease. She was initially awake and following commands with weakness of RLE and some aphasia. She was transferred to [facility] where he had an cerebral angiogram consistent with moyamoya. There were plans to perform extracranial/intracranial bypass. However she had a seizure and ended up being intubated for status either 4 or 11/10.. She was found to have a new right frontal infarct area and she was started on Dilantin and Keppra and it was felt that she would not be a candidate for intervention. She has been intubated 9-10 days and apparently she has been tolerating C Pap trials to some extent but mental status prevents extubation. Treating team was discussing with family trach/PEG. Apparently family requested transfer back to [place] because they live locally here and wanted her closer to home. Patient remained under critical care medicine until 12/24/2016. Bilateral large frontal CVA Moyamoya - confirmed by arteriogram at [facility] October 2016. Seizure disorder Breakthrough seizures noted 01/06/17. Dr Flores neuro following. Repeat EEG no seizures and MRI no new findings. Continue keppra. Started tegretol per neuro. Brief episode of seizure -twitching of right arm overnight . Will repeat EEG. Neurology notified. 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 Added Tegretol as noted breakthrough seizures 01/06. EEG, MRI no new changes. Continue ASA 324 mg daily, atorvastatin 40 mg by mouth daily Continue bromocriptine 2.5 mg by mouth BID EEG-noted sharp spikes Neurology is following at a distance-Dr. Flores Has been evaluated tertiary care center [place] and felt to not be a candidate for further intervention. - COPD stable - Acute respiratory failure - currently on T piece. decreased Tracheostomy tube size by recruiter specialist. - Multilobar pneumonia Status post tracheostomy on 11/24/2016. Pulmonary following. Continue Zosyn 3.375 g every 6 hours DuoNeb when necessary -Anemia iron deficiency stable will give Iron IV. -Acute hypernatremia Sodium has been trending upwards. While pt has been receiving magnesium sulfate in Sodium chloride, the levels may not be enough to warrant the observed elevation. Discussed with Dr. Trejo and she has ordered free water. Check labs in am - Nutrition - continue Jevity 1.5 through PEG tube. Full code. SCDs. Famotidine twice a day Status post Downgrade of her Tracheostomy tube, next step to cap it. No changes to anterior assessment. Laboratory was reviewed. Patient needs LTAC Dc pending improvement and clearance from consultants. Patient had breakthrough seizures 01/06 EEG, MRI no new changes. Seizure episode overnight 01/08, EEG pending , neuro notified Case discussed with pt's RN (Aldo) and Dr. Trejo Discharge Planning Per CM note of 01/06, placement is continuing to be pursued. Trell Torres Jr. MADISYN Jan 09, 2017 11:18
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
--- NOTE | 2017-01-09 12:36 | RADRPT ---
EXAM DATE/TIME: 01/09/2017 11:56 [place] COMPARISON: CHEST SINGLE AP, December 31, 2016, 19:39. INDICATIONS : Evaluate for pneumonia MEDICAL HISTORY : Stroke. SURGICAL HISTORY : None. ENCOUNTER: Subsequent ACUITY: 4 - 6 days PAIN SCORE: Non-responsive. LOCATION: Bilateral chest FINDINGS: Single AP view of the chest. Tracheostomy tube remains in place. Cardiac silhouette is enlarged but u nchanged. Mild new bilateral pulmonary vasculature indistinctness suggesting mild pulmonary edema/pul monary vascular congestion. No evidence of pleural effusion or pneumothorax. CONCLUSION: Mild bilateral pulmonary vasculature indistinctness suggesting pulmonary vascular congestion/mild pul monary edema. Sami Mccarthy MD on January 09, 2017 at 12:33 Board Certified Radiologist. This report was verified electronically.
[2017-01-09] MEDS: FREE WATER G-TUBE SCH ×2 (14:00→20:21)
--- NOTE | 2017-01-09 14:29 | HHI.PR ---
Subjective Remarks 66 YOWF with Rf, s/p trach H/O CVA,Arango Arango disease On trach collar Awake, does't follow commands No fever. Seen by ID, gordy mcguire Objective Vital Signs Vital Signs Date Time Temp Pulse Resp B/P Pulse Ox O2 Delivery O2 Flow Rate FiO2 01/09/17 12:00 108 01/09/17 12:00 99.0 109 28 137/73 97 01/09/17 10:00 109 01/09/17 08:00 107 01/09/17 08:00 99.1 101 24 128/76 95 01/09/17 08:00 98 T-Piece 28 01/09/17 07:35 98 T-piece 6.00 28 01/09/17 06:00 113 01/09/17 04:00 98.5 115 29 152/89 96 01/09/17 04:00 115 01/09/17 02:00 116 01/09/17 00:00 98.6 109 35 153/86 96 01/09/17 00:00 109 01/08/17 22:00 115 01/08/17 20:06 98 T-piece 6.00 28 01/08/17 20:00 97 01/08/17 20:00 98.5 97 17 116/60 98 01/08/17 20:00 98 T-Piece 28 01/08/17 18:00 107 01/08/17 16:00 101 01/08/17 16:00 100.0 95 24 122/69 95 I/O 01/08/17 01/08/17 01/08/17 01/09/17 01/09/17 01/09/17 07:00 15:00 23:00 07:00 15:00 23:00 Intake Total 484 ml 661 ml 450 ml 464 ml Output Total 400 ml 440 ml 300 ml 400 ml Balance 84 ml 221 ml 150 ml 64 ml IV Total 80 ml 111 ml 50 ml 50 ml Tube Feeding 404 ml 550 ml 400 ml 414 ml Output Urine Total 400 ml 440 ml 300 ml 400 ml # Bowel Movements 1 1 1 Result Diagram: 01/07/1751601/07/17516 Objective Remarks GENERAL: MBMN WF, on Trach collar SKIN: Warm and dry. HEAD: Normocephalic. EYES: No scleral icterus. No injection or drainage. NECK: Supple, trachea midline. No JVD or lymphadenopathy. has trach CARDIOVASCULAR: Regular rate and rhythm without murmurs, gallops, or rubs. RESPIRATORY: Breath sounds equal bilaterally. No accessory muscle use. GASTROINTESTINAL: Abdomen soft, non-tender, nondistended. has PEG MUSCULOSKELETAL: No cyanosis, or edema. BACK: Nontender without obvious deformity. No CVA tenderness. A/P Assessment and Plan RF, S/P Trach CVA Arango arango disease CAD COPD SZ disorder PLAN: Aerosol nebs Cont trach collar supplement 02 Cont TF DW RN Tobra nebs per ID Vernon Marx MD Jan 09, 2017 14:28
[2017-01-09] MEDS: CHLORHEXIDINE GLUCONATE 2 % 1 PACK (2 CLOTHS) TOP SCH (19:50)
[2017-01-09] MEDS: RESP: TOBRAMYCIN SULFATE 80 MG/2 ML NEB NEB SCH (20:03)
[2017-01-10] VITALS (14 sets, daily range): BP systolic 131–157; BP diastolic 60–90; PULSE 73–115; RESP 24–32; TEMP 98.1–99.9; O2SAT 92–100
[2017-01-10] MEDS: INSULIN NovoLIN REGULAR SUPPLEMENTAL SCALE SQ SCH ×4 (02:00→20:00)
[2017-01-10 05:09] LABS: AUTOMATED NEUTROPHIL # 8.4 TH/MM3 (1.8-7.7); BASOPHIL # 0.1 TH/MM3 (0-0.2); BASOPHIL % 0.6 % (0.0-2.0); EOSINOPHIL # 0.3 TH/MM3 (0-0.4); EOSINOPHIL % 2.2 % (0.0-4.0); HEMATOCRIT 35.7 % (35.0-46.0); HEMO FLAGS DIFF FINAL; LYMPH % 20.9 % (9.0-44.0); LYMPHOCYTE # 2.4 TH/MM3 (1.0-4.8); MEAN CELL VOLUME 81.7 FL (80.0-100.0); MEAN CORPUSCULAR HGB CONC 30.6 % (32.0-36.0); MONO % 4.8 % (0.0-8.0); NEUT % 71.5 % (16.0-70.0); PLATELET COUNT 297 TH/MM3 (150-450); RED BLOOD COUNT 4.37 MIL/MM3 (4.00-5.30); RED CELL DISTRIBUTION WIDTH 18.6 % (11.6-17.2); WHITE BLOOD COUNT 11.7 TH/MM3 (4.0-11.0)
[2017-01-10 05:22] LABS: POTASSIUM 3.9 MEQ/L (3.5-5.1)
[2017-01-10] MEDS: FREE WATER G-TUBE SCH ×3 (05:36→21:55)
[2017-01-10] MEDS: CHLORHEXIDINE 0.12% (ORAL KIT) 15 ML CUP MT SCH ×2 (07:34→20:00)
--- NOTE | 2017-01-10 08:06 | HHI.PR ---
Subjective Remarks With coupious secretions, tachycardic. suctioned by the nurse at bedside. No seizures resported by the nurse overnight. Objective Vitals Vital Signs Date Time Temp Pulse Resp B/P Pulse Ox O2 Delivery O2 Flow Rate FiO2 01/10/17 06:00 108 01/10/17 04:00 98.8 115 32 151/88 94 01/10/17 04:00 115 01/10/17 02:00 111 01/10/17 00:00 98.1 106 24 133/71 93 01/10/17 00:00 106 01/09/17 22:00 98 01/09/17 22:00 115 01/09/17 20:03 96 T-piece 5.00 28 01/09/17 20:00 115 01/09/17 20:00 95 T-Piece 28 01/09/17 20:00 99.4 115 29 171/96 95 01/09/17 18:00 112 01/09/17 16:00 99.3 106 26 147/84 95 01/09/17 16:00 106 01/09/17 14:00 113 01/09/17 12:00 108 01/09/17 12:00 99.0 109 28 137/73 97 01/09/17 10:00 109 I/O 01/09/17 01/09/17 01/09/17 01/10/17 01/10/17 01/10/17 07:00 15:00 23:00 07:00 15:00 23:00 Intake Total 464 ml 925 ml 426 ml 625 ml Output Total 400 ml 440 ml 325 ml 375 ml Balance 64 ml 485 ml 101 ml 250 ml IV Total 50 ml 161 ml Tube Feeding 414 ml 564 ml 226 ml 425 ml Other 200 ml 200 ml 200 ml Output Urine Total 400 ml 440 ml 325 ml 375 ml # Bowel Movements 1 1 1 Result Diagram: 01/10/17 0428 01/10/17 0428 Imaging Last Impressions Chest X-Ray 01/09/17 0000 Signed Impressions: Service Date/Time: Monday, January 09, 2017 11:56 - CONCLUSION: Mild bilateral pulmonary vasculature indistinctness suggesting pulmonary vascular congestion/mild pulmonary edema. Sami Mccarthy MD Brain MRI 01/06/17 0000 Signed Impressions: Service Date/Time: January 14:19 - CONCLUSION: Continued evolutionary changes of large bilateral frontal lobe infarcts. Sami Mccarthy MD Abdomen X-Ray 11/26/16 0000 Signed Impressions: Service Date/Time: Saturday, November 26, 2016 10:18 - CONCLUSION: Distended stomach otherwise nonspecific abdomen. Jacksno Murillo MD Objective Remarks GENERAL: Alert, sleepy, eyes open, does not respond to verbal commands. Currently on T piece. SKIN: Warm and dry. HEAD: Normocephalic. EYES: No scleral icterus. No injection or drainage. NECK: Supple, trachea midline. No JVD or lymphadenopathy. CARDIOVASCULAR: Regular rhythm, tachycardic without murmurs, gallops, or rubs. RESPIRATORY: Breath sounds equal bilaterally. No accessory muscle use. GASTROINTESTINAL: Abdomen soft, obese, non-tender, nondistended. MUSCULOSKELETAL: No cyanosis, or edema. Procedures 11/24/2016 Percutaneous tracheostomy. 11/18/2016 Moderate encephalopathy with suggestion of left temporal region cortical irritability. No active seizures. Clinical correlation. 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 Rivas is a 66-year-old female with a history of stroke who was admitted to the [facility] on 11/04/2016 due to difficulty getting her thoughts together. She was found to have multifocal nonhemorrhagic infarctions in the frontal and parietal regions. She was initially awake and following commands with weakness of RLE and some aphasia. She was transferred to [facility] where he had an cerebral angiogram consistent with moyamoya. There were plans to perform extracranial/intracranial bypass. However she had a seizure and ended up being intubated for status either 4/4 or 4/5.. She was found to have a new right frontal infarct area and she was started on Dilantin and Keppra and it was felt that she would not be a candidate for intervention. She has been intubated 9-10 days and apparently she has been tolerating C Pap trials to some extent but mental status prevents extubation. Treating team was discussing with family trach/PEG. Apparently family requested transfer back to [place] because they live locally here and wanted her closer to home. Patient remained under critical care medicine until 12/24/2016. Bilateral large frontal CVA Moyamoya - confirmed by arteriogram at [facility] October 2016. Seizure disorder Breakthrough seizures noted 01/06/17. Dr Flores neuro following. Repeat EEG no seizures and MRI no new findings. Continue keppra. Started tegretol per neuro. Brief episode of seizure -twitching of right arm overnight 01/08/. Will repeat EEG. Neurology notified. 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 Added tegretol as noted breaktrheough seizures 01/06. EEG, MRI no new changes. Continue ASA 324 mg daily, atorvastatin 40 mg by mouth daily Continue bromocriptine 2.5 mg by mouth BID EEG-noted sharp spikes Neurology is following at a distance-Dr. Flores Has been evaluated tertiary care center [place] and felt to not be a candidate for further intervention. - COPD stable - Acute respiratory failure - currently on T piece. decreased Tracheostomy tube size by sports medicine specialist. - Multilobar pneumonia Status post tracheostomy on 11/24/2016. Pulmonary following. Continue Zosyn 3.375 g every 6 hours DuoNeb when necessary -Hypernatremia 2.2 likely zosyn. Consult ID for abx recommendations. Started flush water 200 cc Q8Hrs. Monitor BMP. -Anemia iron deficiency stable will give Iron IV. - Nutrition - continue Jevity 1.5 through PEG tube. Full code. SCDs. Famotidine twice a day Status post Downgrade of her Tracheostomy tube, next step to cap it. No changes to anterior assessment. Laboratory was reviewed. Patient needs LTAC Dc pending improvement and clearance from consultants. Patient had breakthrough seizures 01/06 EEG, MRI no new changes. Seizure episode overnight 01/08, EEG no new seizures. Hyponatremia 2/2 zosyn ID will eval for change of abx. Started free water 2000 cc q8 hrs , monitor Na Angela Trejo MD Jan 10, 2017 08:06
[2017-01-10] MEDS: SENNOSIDES SYRUP 8.8 MG/5 ML CUP PO SCH ×2 (08:19→20:00)
[2017-01-10] MEDS: SODIUM CHLORIDE 0.9% FLUSH 10 ML FLUSH IV FLUSH SCH ×2 (08:19→20:01)
[2017-01-10] MEDS: POLYETHYLENE GLYCOL 17 GM PKG PO SCH (08:19)
[2017-01-10] MEDS: ATORVASTATIN 40 MG TAB PO SCH (08:20)
[2017-01-10] MEDS: FAMOTIDINE 20 MG TAB NG SCH ×2 (08:20→20:00)
[2017-01-10] MEDS: BROMOCRIPTINE MESYLATE 2.5 MG TAB OG-TUBE SCH ×2 (08:20→20:00)
[2017-01-10] MEDS: RESP: TOBRAMYCIN SULFATE 80 MG/2 ML NEB NEB SCH ×2 (08:20→21:24)
[2017-01-10] MEDS: FOLIC ACID 1 MG TAB OG-TUBE SCH (08:20)
[2017-01-10] MEDS: ASPIRIN 81 MG CHEW TAB NG SCH (08:20)
[2017-01-10] MEDS: COLLAGENASE OINT 30 GM TUBE TOPICAL SCH (08:20)
[2017-01-10] MEDS: LACTULOSE SYRUP 20 GM/30 ML CUP PO SCH ×2 (08:20→20:00)
[2017-01-10] MEDS: carBAMazepine SUSP 200 MG/10 ML UDC PEG SCH ×2 (08:21→20:00)
[2017-01-10] MEDS: DOCUSATE SODIUM 100 MG/10 ML UDC PO SCH ×2 (08:21→20:00)
[2017-01-10] MEDS: levETIRAcetam 500 MG/5 ML UDC NG SCH ×2 (08:21→20:00)
--- NOTE | 2017-01-10 09:35 | MG ---
cc: DRE LEMA MD Lab No: Date: 01/10/2017 Age: 66 Sex: F Race: DATE OF 1950 MEDICAL HISTORY History of recent stroke. Seizures. Weakness. Heart attack. Hypertension. Depression, anxiety. Substance abuse. MEDICATIONS 1. Tegretol. 2. Pepcid. 3. Keppra. 4. Piperacillin. 5. Lactulose. 6. Lipitor. 7. Glycerine. 8. Aspirin. 9. Folate. DESCRIPTION The background activity on the EEG is polymorphic, delta and theta of high amplitude. There is bilateral frontal slowing greater on the right than the left. Photic stimulation did not elicit driving response. Hyperventilation was not done. There were no electrographic seizures or epileptiform discharges. INTERPRETATION This is an abnormal EEG with bifrontal slowing, right greater than the left that may indicate moderate to severe encephalopathy, may be related to structural lesion. The absence of the electrographic seizures of epileptiform discharges does not rule out the diagnosis of epilepsy. Clinical correlation. Dre Lema MD RGO/SSB /8:35 AM /9:25 AM MTDD
--- NOTE | 2017-01-10 11:23 | HHI.IDPN ---
Subjective Subjective Remarks Ms. Rivas is a 66-year-old female with past medical history significant for stroke who was on warfarin but had discontinued it, prior history of moyamoya disease. With this background patient was admitted to [facility] on November 04, 2016 with history of difficulty getting her thoughts together. She was found to have multifocal nonhemorrhagic infarcts in the left frontal and parietal regions, right frontal lobe and history of moyamoya disease. Review of records it appears that there were plans for extracranial intracranial bypass. However she had a seizure and ended up being intubated for status epilepticus. Subsequently she was found to have a new right frontal infarct and she was started on Dilantin and Keppra and deemed to be a suitable candidate for any further surgical intervention at that point. At the request of the family patient was transferred back to [facility]. At [place] palliative care has been involved and per review of the records it appears that patient is currently full code and patient's family agreed to a trach and PEG tube placement. Upon further review of records it appears that patient isn't being treated for pneumonia due to a fever on November 27 with Zosyn IV and cultures with MSSA and pseudomonas aeruginosa. No reported seizures recently. Neurologically patient opens eyes spontaneously, but remains nonresponsive does not follow any commands. At the time of my evaluation patient is is in the [facility]MC currently not on any pressors, has a Brown in place. RN reports take white secretions moderate amounts. Infectious disease is consulted for evaluation and management of fever and pneumonia in a patient with multiple strokes. Overnight events reviewed. No fevers No rash No diarrhea Neuro unchanged. Antibiotics Tobramycin nebs Lines Line sites with no e.o infection. Past Medical History reviewed Allergies: Uncoded Allergies: YES, CAN'T REM. RELAXING MED. (Adverse Reaction, Intermediate, NECK TWISTS TO SIDE, 12/07/09) Objective . Vital Signs Date Time Temp Pulse Resp B/P Pulse Ox O2 Delivery O2 Flow Rate FiO2 01/10/17 10:00 98 01/10/17 08:21 92 T-piece 6.00 28 01/10/17 08:00 92 T-Piece 28 01/10/17 08:00 99.1 106 24 131/60 92 01/10/17 08:00 106 01/10/17 06:00 108 01/10/17 04:00 98.8 115 32 151/88 94 01/10/17 04:00 115 01/10/17 02:00 111 01/10/17 00:00 98.1 106 24 133/71 93 01/10/17 00:00 106 01/09/17 22:00 98 01/09/17 22:00 115 01/09/17 20:03 96 T-piece 5.00 28 01/09/17 20:00 115 01/09/17 20:00 95 T-Piece 28 01/09/17 20:00 99.4 115 29 171/96 95 01/09/17 18:00 112 01/09/17 16:00 99.3 106 26 147/84 95 01/09/17 16:00 106 01/09/17 14:00 113 01/09/17 12:00 108 01/09/17 12:00 99.0 109 28 137/73 97 01/09/17 01/09/17 01/10/17 15:00 23:00 07:00 Intake Total 925 ml 426 ml 625 ml Output Total 440 ml 325 ml 375 ml Balance 485 ml 101 ml 250 ml IV Total 161 ml Tube Feeding 564 ml 226 ml 425 ml Other 200 ml 200 ml 200 ml Output Urine Total 440 ml 325 ml 375 ml # Bowel Movements 1 1 . Laboratory Tests Test 01/10/17 04:28 White Blood Count 11.7 TH/MM3 Red Blood Count 4.37 MIL/MM3 Hemoglobin 10.9 GM/DL Hematocrit 35.7 % Mean Corpuscular Volume 81.7 FL Mean Corpuscular Hemoglobin 25.0 PG Mean Corpuscular Hemoglobin 30.6 % Concent Red Cell Distribution Width 18.6 % Platelet Count 297 TH/MM3 Mean Platelet Volume 9.3 FL Neutrophils (%) (Auto) 71.5 % Lymphocytes (%) (Auto) 20.9 % Monocytes (%) (Auto) 4.8 % Eosinophils (%) (Auto) 2.2 % Basophils (%) (Auto) 0.6 % Neutrophils # (Auto) 8.4 TH/MM3 Lymphocytes # (Auto) 2.4 TH/MM3 Monocytes # (Auto) 0.6 TH/MM3 Eosinophils # (Auto) 0.3 TH/MM3 Basophils # (Auto) 0.1 TH/MM3 CBC Comment DIFF FINAL Differential Comment Laboratory Tests Test 01/09/17 01/10/17 15:19 04:28 Procalcitonin 0.34 ng/mL Sodium Level 152 MEQ/L Potassium Level 3.9 MEQ/L Chloride Level 114 MEQ/L Carbon Dioxide Level 29.0 MEQ/L Anion Gap 9 MEQ/L Blood Urea Nitrogen 24 MG/DL Creatinine 0.54 MG/DL Estimat Glomerular Filtration 114 ML/MIN Rate Random Glucose 158 MG/DL Calcium Level 8.2 MG/DL Imaging Last Impressions Chest X-Ray 01/09/17 0000 Signed Impressions: Service Date/Time: Monday, January 09, 2017 11:56 - CONCLUSION: Mild bilateral pulmonary vasculature indistinctness suggesting pulmonary vascular congestion/mild pulmonary edema. Sami Mccarthy MD Brain MRI 01/06/17 0000 Signed Impressions: Service Date/Time: January 14:19 - CONCLUSION: Continued evolutionary changes of large bilateral frontal lobe infarcts. Smai Mccarthy MD Abdomen X-Ray 11/26/16 0000 Signed Impressions: Service Date/Time: Saturday, November 26, 2016 10:18 - CONCLUSION: Distended stomach otherwise nonspecific abdomen. KKristin Murillo MD Assessment & Plan Remarks Possible Tracheobronchitis New fevers: DDX: Infection, stroke/central, drug induced. Bilateral frontal CVA left greater than right Moyamoya - confirmed by arteriogram at [facility] 10/22 Seizure disorder NOS Vent dependent respiratory failure COPD Coronary artery disease with prior myocardial infarction Hypertension Right ICA occlusion Dyslipidemia Recs Normal Procalcitonin Continue Tobramycin nebs stop date in chart. Continue Levisin. Reviewed CXR Follow cultures Follow clinically. d/w RN and Cheyenne Rg MD Jan 10, 2017 11:22 Cheyenne Mcbride MD Jan 10, 2017 11:22
--- NOTE | 2017-01-10 18:27 | HHI.PR ---
Subjective Remarks 66 YOWF with Rf, s/p trach H/O CVA,Arango Arango disease On trach collar Awake, does't follow commands No fever.lot of trach secretions Requires frequent trach suction Objective Vital Signs Vital Signs Date Time Temp Pulse Resp B/P Pulse Ox O2 Delivery O2 Flow Rate FiO2 01/10/17 16:00 99.9 105 26 143/90 96 01/10/17 16:00 105 01/10/17 14:00 94 01/10/17 12:00 99.0 95 26 134/79 94 01/10/17 12:00 95 01/10/17 10:00 98 01/10/17 08:21 92 T-piece 6.00 28 01/10/17 08:00 92 T-Piece 28 01/10/17 08:00 99.1 106 24 131/60 92 01/10/17 08:00 106 01/10/17 06:00 108 01/10/17 04:00 98.8 115 32 151/88 94 01/10/17 04:00 115 01/10/17 02:00 111 01/10/17 00:00 98.1 106 24 133/71 93 01/10/17 00:00 106 01/09/17 22:00 98 01/09/17 22:00 115 01/09/17 20:03 96 T-piece 5.00 28 01/09/17 20:00 115 01/09/17 20:00 95 T-Piece 28 01/09/17 20:00 99.4 115 29 171/96 95 I/O 01/09/17 01/09/17 01/09/17 01/10/17 01/10/17 01/10/17 07:00 15:00 23:00 07:00 15:00 23:00 Intake Total 464 ml 925 ml 426 ml 625 ml 615 ml Output Total 400 ml 440 ml 325 ml 375 ml 400 ml Balance 64 ml 485 ml 101 ml 250 ml 215 ml IV Total 50 ml 161 ml Tube Feeding 414 ml 564 ml 226 ml 425 ml 355 ml Tube Irrigant 60 ml Other 200 ml 200 ml 200 ml 200 ml Output Urine Total 400 ml 440 ml 325 ml 375 ml 400 ml # Bowel Movements 1 1 1 2 Result Diagram: 01/10/17 0428 01/10/17 0428 Objective Remarks GENERAL: MBMN WF, on Trach collar SKIN: Warm and dry. HEAD: Normocephalic. EYES: No scleral icterus. No injection or drainage. NECK: Supple, trachea midline. No JVD or lymphadenopathy. has trach CARDIOVASCULAR: Regular rate and rhythm without murmurs, gallops, or rubs. RESPIRATORY: Breath sounds equal bilaterally. No accessory muscle use. GASTROINTESTINAL: Abdomen soft, non-tender, nondistended. has PEG MUSCULOSKELETAL: No cyanosis, or edema. BACK: Nontender without obvious deformity. No CVA tenderness. A/P Assessment and Plan RF, S/P Trach CVA Arango arango disease CAD COPD SZ disorder PLAN: Aerosol nebs Cont trach collar supplement 02 Cont TF DW RN Tobra nebs per ID Trach suction prn. Vernon Marx MD Jan 10, 2017 18:27
[2017-01-11] VITALS (14 sets, daily range): BP systolic 134–147; BP diastolic 71–97; PULSE 97–115; RESP 24–44; TEMP 97.9–99.1; O2SAT 92–100
[2017-01-11] MEDS: INSULIN NovoLIN REGULAR SUPPLEMENTAL SCALE SQ SCH ×4 (01:55→19:55)
[2017-01-11] MEDS: CHLORHEXIDINE GLUCONATE 2 % 1 PACK (2 CLOTHS) TOP SCH (01:55)
[2017-01-11] MEDS: FREE WATER G-TUBE SCH ×3 (04:43→21:47)
[2017-01-11 06:32] LABS: BASOPHIL # 0.1 TH/MM3 (0-0.2); BASOPHIL % 0.8 % (0.0-2.0); EOSINOPHIL # 0.3 TH/MM3 (0-0.4); EOSINOPHIL % 2.5 % (0.0-4.0); HEMATOCRIT 33.8 % (35.0-46.0); HEMO FLAGS DIFF FINAL; LYMPH % 16.7 % (9.0-44.0); MEAN CELL VOLUME 80.6 FL (80.0-100.0); MEAN CORPUSCULAR HEMOGLOBIN 25.2 PG (27.0-34.0); MEAN CORPUSCULAR HGB CONC 31.3 % (32.0-36.0); MONO % 4.6 % (0.0-8.0); NEUT % 75.4 % (16.0-70.0); PLATELET COUNT 262 TH/MM3 (150-450); RED BLOOD COUNT 4.19 MIL/MM3 (4.00-5.30); RED CELL DISTRIBUTION WIDTH 18.7 % (11.6-17.2); WHITE BLOOD COUNT 11.9 TH/MM3 (4.0-11.0)
[2017-01-11 06:53] LABS: MAGNESIUM 2.4 MG/DL (1.5-2.5); POTASSIUM 3.6 MEQ/L (3.5-5.1)
--- NOTE | 2017-01-11 07:45 | HHI.PR ---
Subjective Remarks No seizures overnight. Some secretions. Appears in nad. Objective Vitals Vital Signs Date Time Temp Pulse Resp B/P Pulse Ox O2 Delivery O2 Flow Rate FiO2 01/11/17 06:00 100 01/11/17 04:00 98.9 109 30 141/71 92 01/11/17 04:00 105 01/11/17 02:00 115 01/11/17 00:00 107 01/11/17 00:00 99.0 108 44 142/89 97 01/10/17 22:00 107 01/10/17 21:24 100 T-piece 6.00 28 01/10/17 20:00 109 01/10/17 20:00 98.7 109 27 157/89 97 01/10/17 20:00 97 T-Piece 28 01/10/17 18:00 73 01/10/17 16:00 99.9 105 26 143/90 96 01/10/17 16:00 105 01/10/17 14:00 94 01/10/17 12:00 99.0 95 26 134/79 94 01/10/17 12:00 95 01/10/17 10:00 98 01/10/17 08:21 92 T-piece 6.00 28 01/10/17 08:00 92 T-Piece 28 01/10/17 08:00 99.1 106 24 131/60 92 01/10/17 08:00 106 I/O 01/10/17 01/10/17 01/10/17 01/11/17 01/11/17 01/11/17 07:00 15:00 23:00 07:00 15:00 23:00 Intake Total 625 ml 615 ml 530 ml 560 ml Output Total 375 ml 400 ml 250 ml 250 ml Balance 250 ml 215 ml 280 ml 310 ml Tube Feeding 425 ml 355 ml 500 ml 360 ml Tube Irrigant 60 ml Other 200 ml 200 ml 30 ml 200 ml Output Urine Total 375 ml 400 ml 250 ml 250 ml # Bowel Movements 1 2 Result Diagram: 01/11/1721 01/11/17520 Imaging Last Impressions Chest X-Ray 01/09/17 0000 Signed Impressions: Service Date/Time: Monday, January 09, 2017 11:56 - CONCLUSION: Mild bilateral pulmonary vasculature indistinctness suggesting pulmonary vascular congestion/mild pulmonary edema. Sami Mccarthy MD Brain MRI 01/06/17 0000 Signed Impressions: Service Date/Time: January 14:19 - CONCLUSION: Continued evolutionary changes of large bilateral frontal lobe infarcts. Sami Mccarthy MD Abdomen X-Ray 11/26/16 0000 Signed Impressions: Service Date/Time: Saturday, November 26, 2016 10:18 - CONCLUSION: Distended stomach otherwise nonspecific abdomen. K. David Murillo MD Objective Remarks GENERAL: Alert, sleepy, eyes open, does not respond to verbal commands. Currently on T piece. SKIN: Warm and dry. HEAD: Normocephalic. EYES: No scleral icterus. No injection or drainage. NECK: Supple, trachea midline. No JVD or lymphadenopathy. CARDIOVASCULAR: Regular rhythm, tachycardic without murmurs, gallops, or rubs. RESPIRATORY: Breath sounds equal bilaterally. No accessory muscle use. GASTROINTESTINAL: Abdomen soft, obese, non-tender, nondistended. MUSCULOSKELETAL: No cyanosis, or edema. Procedures 11/24/2016 Percutaneous tracheostomy. 11/18/2016 Moderate encephalopathy with suggestion of left temporal region cortical irritability. No active seizures. Clinical correlation. 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 Rivas is a 66-year-old female with a history of stroke who was admitted to the [facility] on 11/04/2016 due to difficulty getting her thoughts together. She was found to have multifocal nonhemorrhagic infarctions in the frontal and parietal regions. She was initially awake and following commands with weakness of RLE and some aphasia. She was transferred to [facility] where he had an cerebral angiogram consistent with moyamoya. There were plans to perform extracranial/intracranial bypass. However she had a seizure and ended up being intubated for status either 11/09 or 11/10.. She was found to have a new right frontal infarct area and she was started on Dilantin and Keppra and it was felt that she would not be a candidate for intervention. She has been intubated 9-10 days and apparently she has been tolerating C Pap trials to some extent but mental status prevents extubation. Treating team was discussing with family trach/PEG. Apparently family requested transfer back to [place] because they live locally here and wanted her closer to home. Patient remained under critical care medicine until 12/24/2016. Bilateral large frontal CVA Moyamoya - confirmed by arteriogram at [facility] October 2016. Seizure disorder Breakthrough seizures noted 01/06/17. Dr Flores neuro following. Repeat EEG no seizures and MRI no new findings. Continue keppra. Started tegretol per neuro. Brief episode of seizure -twitching of right arm overnight . Will repeat EEG. Neurology notified. 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 Added tegretol as noted breaktrheough seizures 01/06. EEG, MRI no new changes. Continue ASA 324 mg daily, atorvastatin 40 mg by mouth daily Continue bromocriptine 2.5 mg by mouth BID EEG-noted sharp spikes Neurology is following at a distance-Dr. Flores Has been evaluated tertiary care center [place] and felt to not be a candidate for further intervention. - COPD stable - Acute respiratory failure - currently on T piece. decreased Tracheostomy tube size by patient support specialist. - Multilobar pneumonia Status post tracheostomy on 11/24/2016. Pulmonary following. DC Zosyn 3.375 g every 6 hours. On tobramycin with nebulizers last dose 01/20 per ID DuoNeb when necessary. ID consulted, appreciate recommendations. -Hypernatremia, improving. - 2.2 likely zosyn. Consult ID for abx recommendations. DC zosyn. Started flush water 200 cc Q8Hrs. Monitor BMP. -Anemia iron deficiency stable will give Iron IV. - Nutrition - continue Jevity 1.5 through PEG tube. Full code. SCDs. Famotidine twice a day Status post Downgrade of her Tracheostomy tube, next step to cap it. No changes to anterior assessment. Laboratory was reviewed. Patient needs LTAC Dc pending improvement and clearance from consultants. Patient had breakthrough seizures 01/06 EEG, MRI no new changes. Seizure episode overnight 01/08, EEG no new seizures. Hyponatremia / zosyn ID will eval for change of abx, DC zosyn started tobramycin with nebs. Started free water 2000 cc q8 hrs, monitor Na Angela Trejo MD Jan 11, 2017 07:45
[2017-01-11] MEDS: RESP: TOBRAMYCIN SULFATE 80 MG/2 ML NEB NEB SCH ×2 (08:22→20:46)
[2017-01-11] MEDS: CHLORHEXIDINE 0.12% (ORAL KIT) 15 ML CUP MT SCH ×2 (08:26→19:55)
[2017-01-11] MEDS: levETIRAcetam 500 MG/5 ML UDC NG SCH ×2 (08:26→19:54)
[2017-01-11] MEDS: COLLAGENASE OINT 30 GM TUBE TOPICAL SCH (08:26)
[2017-01-11] MEDS: POLYETHYLENE GLYCOL 17 GM PKG PO SCH (08:26)
[2017-01-11] MEDS: carBAMazepine SUSP 200 MG/10 ML UDC PEG SCH ×2 (08:26→19:54)
[2017-01-11] MEDS: DOCUSATE SODIUM 100 MG/10 ML UDC PO SCH ×2 (08:27→19:54)
[2017-01-11] MEDS: FOLIC ACID 1 MG TAB OG-TUBE SCH (08:27)
[2017-01-11] MEDS: ASPIRIN 81 MG CHEW TAB NG SCH (08:27)
[2017-01-11] MEDS: LACTULOSE SYRUP 20 GM/30 ML CUP PO SCH ×2 (08:27→19:54)
[2017-01-11] MEDS: FAMOTIDINE 20 MG TAB NG SCH ×2 (08:27→19:55)
[2017-01-11] MEDS: ATORVASTATIN 40 MG TAB PO SCH (08:27)
[2017-01-11] MEDS: SENNOSIDES SYRUP 8.8 MG/5 ML CUP PO SCH ×2 (08:28→19:54)
[2017-01-11] MEDS: SODIUM CHLORIDE 0.9% FLUSH 10 ML FLUSH IV FLUSH SCH ×2 (08:28→19:55)
[2017-01-11] MEDS: ACETAMINOPHEN/HYDROcodone 325 MG/5 MG TAB PO PRN (08:38)
[2017-01-11] MEDS: BROMOCRIPTINE MESYLATE 2.5 MG TAB OG-TUBE SCH ×2 (08:38→19:55)
[2017-01-11] MEDS ORDERED: TOBR40IN5 NEB (08:43)
[2017-01-11] MEDS ORDERED: BROM2.5 OG-TUBE (08:43)
[2017-01-11] MEDS ORDERED: ATOR40TA16 PO (08:43)
[2017-01-11] MEDS ORDERED: LEVE500S NG (08:43)
[2017-01-11] MEDS ORDERED: ASPI81CH25 NG (08:43)
[2017-01-11] MEDS ORDERED: HYOS0.1231 PO (08:43)
[2017-01-11] MEDS ORDERED: FAMO20TA2 NG (08:43)
[2017-01-11] MEDS ORDERED: DOCU100S PO (08:43)
[2017-01-11] MEDS ORDERED: CARB100S2 PO (08:43)
[2017-01-11] MEDS ORDERED: COLL30T TOPICAL (08:43)
[2017-01-11] MEDS ORDERED: NORC5TAB PO (08:44)
--- NOTE | 2017-01-11 19:18 | HHI.PR ---
Subjective Remarks 66 YOWF with Rf, s/p trach H/O CVA,Arango Arango disease On trach collar Awake, does't follow commands No fever.lot of trach secretions Requires frequent trach suction Breathing better today Objective Vital Signs Vital Signs Date Time Temp Pulse Resp B/P Pulse Ox O2 Delivery O2 Flow Rate FiO2 01/11/17 18:00 97 01/11/17 16:00 107 01/11/17 16:00 99.1 107 26 134/90 95 01/11/17 14:00 107 01/11/17 12:00 98.9 105 24 134/77 94 01/11/17 12:00 105 01/11/17 11:22 24 01/11/17 10:00 101 01/11/17 08:28 100 T-piece 6.00 28 01/11/17 08:00 107 01/11/17 08:00 93 T-Piece 28 01/11/17 08:00 97.9 107 28 147/80 93 01/11/17 06:00 100 01/11/17 04:00 98.9 109 30 141/71 92 01/11/17 04:00 105 01/11/17 02:00 115 01/11/17 00:00 107 01/11/17 00:00 99.0 108 44 142/89 97 01/10/17 22:00 107 01/10/17 21:24 100 T-piece 6.00 28 01/10/17 20:00 109 01/10/17 20:00 98.7 109 27 157/89 97 01/10/17 20:00 97 T-Piece 28 I/O 01/10/17 01/10/17 01/10/17 01/11/17 01/11/17 01/11/17 07:00 15:00 23:00 07:00 15:00 23:00 Intake Total 625 ml 615 ml 530 ml 560 ml 727 ml Output Total 375 ml 400 ml 250 ml 250 ml 325 ml Balance 250 ml 215 ml 280 ml 310 ml 402 ml Tube Feeding 425 ml 355 ml 500 ml 360 ml 527 ml Tube Irrigant 60 ml Other 200 ml 200 ml 30 ml 200 ml 200 ml Output Urine Total 375 ml 400 ml 250 ml 250 ml 325 ml # Bowel Movements 1 2 2 Result Diagram: 01/11/1752001/11/17520 Objective Remarks GENERAL: MBMN WF, on Trach collar SKIN: Warm and dry. HEAD: Normocephalic. EYES: No scleral icterus. No injection or drainage. NECK: Supple, trachea midline. No JVD or lymphadenopathy. has trach CARDIOVASCULAR: Regular rate and rhythm without murmurs, gallops, or rubs. RESPIRATORY: Breath sounds equal bilaterally. No accessory muscle use. GASTROINTESTINAL: Abdomen soft, non-tender, nondistended. has PEG MUSCULOSKELETAL: No cyanosis, or edema. BACK: Nontender without obvious deformity. No CVA tenderness. A/P Assessment and Plan RF, S/P Trach CVA Arango arango disease CAD COPD SZ disorder PLAN: Aerosol nebs Cont trach collar supplement 02 Cont TF DW RN Trach suction prn. Vernon Marx MD Jan 11, 2017 19:18
[2017-01-11] MEDS: RESP: ALBUTEROL 2.5 MG/3 ML NEB (PRN) INH (20:30)
[2017-01-12] VITALS (19 sets, daily range): BP systolic 106–156; BP diastolic 59–95; PULSE 91–119; RESP 15–27; TEMP 98.8–99.1; O2SAT 87–100
[2017-01-12] MEDS: INSULIN NovoLIN REGULAR SUPPLEMENTAL SCALE SQ SCH ×4 (01:26→20:00)
[2017-01-12] MEDS: CHLORHEXIDINE GLUCONATE 2 % 1 PACK (2 CLOTHS) TOP SCH (03:20)
[2017-01-12] MEDS: RESP: ALBUTEROL 2.5 MG/3 ML NEB (PRN) INH (03:56)
[2017-01-12] MEDS: MORPHINE SULFATE 4 MG/ML INJ IV PRN (04:30)
[2017-01-12] MEDS: FREE WATER G-TUBE SCH ×3 (04:33→21:38)
[2017-01-12] MEDS: CHLORHEXIDINE 0.12% (ORAL KIT) 15 ML CUP MT SCH ×2 (07:59→20:00)
[2017-01-12] MEDS: DOCUSATE SODIUM 100 MG/10 ML UDC PO SCH ×2 (08:00→21:38)
[2017-01-12] MEDS: LACTULOSE SYRUP 20 GM/30 ML CUP PO SCH ×2 (08:00→21:38)
[2017-01-12] MEDS: SENNOSIDES SYRUP 8.8 MG/5 ML CUP PO SCH ×2 (08:00→21:38)
[2017-01-12] MEDS: ASPIRIN 81 MG CHEW TAB NG SCH (08:00)
[2017-01-12] MEDS: levETIRAcetam 500 MG/5 ML UDC NG SCH ×2 (08:00→21:37)
[2017-01-12] MEDS: carBAMazepine SUSP 200 MG/10 ML UDC PEG SCH ×2 (08:00→21:38)
[2017-01-12] MEDS: POLYETHYLENE GLYCOL 17 GM PKG PO SCH (08:00)
[2017-01-12] MEDS: FAMOTIDINE 20 MG TAB NG SCH ×2 (08:00→21:37)
[2017-01-12] MEDS: ATORVASTATIN 40 MG TAB PO SCH (08:01)
[2017-01-12] MEDS: FOLIC ACID 1 MG TAB OG-TUBE SCH (08:01)
[2017-01-12] MEDS: SODIUM CHLORIDE 0.9% FLUSH 10 ML FLUSH IV FLUSH SCH ×2 (08:01→21:36)
[2017-01-12] MEDS: BROMOCRIPTINE MESYLATE 2.5 MG TAB OG-TUBE SCH ×2 (08:01→21:37)
[2017-01-12] MEDS: RESP: TOBRAMYCIN SULFATE 80 MG/2 ML NEB NEB SCH ×2 (08:11→21:14)
--- NOTE | 2017-01-12 16:17 | HHI.IDPN ---
Subjective Subjective Remarks Ms. Rivas is a 66-year-old female with past medical history significant for stroke who was on warfarin but had discontinued it, prior history of moyamoya disease. With this background patient was admitted to [facility] on November 04, 2016 with history of difficulty getting her thoughts together. She was found to have multifocal nonhemorrhagic infarcts in the left frontal and parietal regions, right frontal lobe and history of moyamoya disease. Review of records it appears that there were plans for extracranial intracranial bypass. However she had a seizure and ended up being intubated for status epilepticus. Subsequently she was found to have a new right frontal infarct and she was started on Dilantin and Keppra and deemed to be a suitable candidate for any further surgical intervention at that point. At the request of the family patient was transferred back to [facility]. At [place] palliative care has been involved and per review of the records it appears that patient is currently full code and patient's family agreed to a trach and PEG tube placement. Upon further review of records it appears that patient isn't being treated for pneumonia due to a fever on November 27 with Zosyn IV and cultures with MSSA and pseudomonas aeruginosa. No reported seizures recently. Neurologically patient opens eyes spontaneously, but remains nonresponsive does not follow any commands. At the time of my evaluation patient is is in the [facility]MC currently not on any pressors, has a Brown in place. RN reports take white secretions moderate amounts. Infectious disease is consulted for evaluation and management of fever and pneumonia in a patient with multiple strokes. Overnight events reviewed. No fevers No rash No diarrhea Neuro unchanged. Antibiotics Tobramycin nebs Lines Line sites with no e.o infection. Past Medical History reviewed Allergies: Uncoded Allergies: YES, CAN'T REM. RELAXING MED. (Adverse Reaction, Intermediate, NECK TWISTS TO SIDE, 12/07/09) Objective . Vital Signs Date Time Temp Pulse Resp B/P Pulse Ox O2 Delivery O2 Flow Rate FiO2 01/12/17 15:00 106 25 127/87 89 01/12/17 14:00 104 26 119/77 87 01/12/17 13:00 92 21 107/67 91 01/12/17 12:00 98.8 104 27 113/77 94 01/12/17 12:00 98 01/12/17 11:00 91 18 106/59 94 6/7/17 10:00 98 01/12/17 10:00 102 26 126/78 89 01/12/17 09:00 94 15 120/74 92 01/12/17 08:13 94 T-piece 6.00 28 01/12/17 08:00 98 01/12/17 08:00 99.1 101 22 126/76 91 01/12/17 08:00 99 T-Piece 28 01/12/17 06:00 98 01/12/17 04:38 20 01/12/17 04:00 119 01/12/17 04:00 98.9 113 23 156/95 99 01/12/17 02:00 117 01/12/17 00:00 104 01/12/17 00:00 98.8 104 27 146/90 96 01/11/17 22:00 101 01/11/17 20:30 98 T-piece 6.00 28 01/11/17 20:00 101 01/11/17 20:00 99 T-Piece 28 01/11/17 20:00 98.7 101 28 134/97 99 01/11/17 18:00 97 01/11/17 01/11/17 01/12/17 15:00 23:00 07:00 Intake Total 727 ml 461 ml 389 ml Output Total 325 ml 250 ml 200 ml Balance 402 ml 211 ml 189 ml IV Total 389 ml Tube Feeding 527 ml 461 ml Other 200 ml Output Urine Total 325 ml 250 ml 200 ml # Bowel Movements 2 . Laboratory Tests Test 01/11/17 05:21 White Blood Count 11.9 TH/MM3 Red Blood Count 4.19 MIL/MM3 Hemoglobin 10.6 GM/DL Hematocrit 33.8 % Mean Corpuscular Volume 80.6 FL Mean Corpuscular Hemoglobin 25.2 PG Mean Corpuscular Hemoglobin 31.3 % Concent Red Cell Distribution Width 18.7 % Platelet Count 262 TH/MM3 Mean Platelet Volume 10.0 FL Neutrophils (%) (Auto) 75.4 % Lymphocytes (%) (Auto) 16.7 % Monocytes (%) (Auto) 4.6 % Eosinophils (%) (Auto) 2.5 % Basophils (%) (Auto) 0.8 % Neutrophils # (Auto) 9.0 TH/MM3 Lymphocytes # (Auto) 2.0 TH/MM3 Monocytes # (Auto) 0.5 TH/MM3 Eosinophils # (Auto) 0.3 TH/MM3 Basophils # (Auto) 0.1 TH/MM3 CBC Comment DIFF FINAL Differential Comment Laboratory Tests Test 01/11/17 05:21 Sodium Level 151 MEQ/L Potassium Level 3.6 MEQ/L Chloride Level 115 MEQ/L Carbon Dioxide Level 28.0 MEQ/L Anion Gap 8 MEQ/L Blood Urea Nitrogen 23 MG/DL Creatinine 0.45 MG/DL Estimat Glomerular Filtration 140 ML/MIN Rate Random Glucose 141 MG/DL Calcium Level 8.7 MG/DL Phosphorus Level 3.0 MG/DL Magnesium Level 2.4 MG/DL Imaging Last Impressions Chest X-Ray 01/09/17 0000 Signed Impressions: Service Date/Time: Monday, January 09, 2017 11:56 - CONCLUSION: Mild bilateral pulmonary vasculature indistinctness suggesting pulmonary vascular congestion/mild pulmonary edema. Sami Mccarthy MD Brain MRI 01/06/17 0000 Signed Impressions: Service Date/Time: January 14:19 - CONCLUSION: Continued evolutionary changes of large bilateral frontal lobe infarcts. Sami Mccarthy MD Abdomen X-Ray 11/26/16 0000 Signed Impressions: Service Date/Time: Saturday, November 26, 2016 10:18 - CONCLUSION: Distended stomach otherwise nonspecific abdomen. K. David Murillo MD Assessment & Plan Remarks Possible Tracheobronchitis New fevers: DDX: Infection, stroke/central, drug induced. Bilateral frontal CVA left greater than right Moyamoya - confirmed by arteriogram at [facility] 10/22 Seizure disorder NOS Vent dependent respiratory failure COPD Coronary artery disease with prior myocardial infarction Hypertension Right ICA occlusion Dyslipidemia Recs Normal Procalcitonin Continue Tobramycin nebs Continue Levisin. Reviewed CXR Follow cultures Follow clinically. d/w RN and Will sign off please call back if any change in clinical condition or questions. I will be OOT from 01/13/17 to 01/16/17. covering for me 01/13/17 to 01/14/17. Dr Mcmahon covering for me the weekend. Cheyenne Mcbride MD Jan 12, 2017 16:16
[2017-01-12] MEDS: COLLAGENASE OINT 30 GM TUBE TOPICAL SCH (16:26)
--- NOTE | 2017-01-12 18:25 | HHI.PR ---
Subjective Remarks 66 YOWF with Rf, s/p trach H/O CVA,Arango Arango disease On trach collar Awake, does't follow commands No fever.lot of trach secretions Requires frequent trach suction No new complaint reported Objective Vital Signs Vital Signs Date Time Temp Pulse Resp B/P Pulse Ox O2 Delivery O2 Flow Rate FiO2 01/12/17 17:00 98 01/12/17 16:00 97 01/12/17 15:00 106 25 127/87 89 01/12/17 15:00 106 01/12/17 14:00 104 26 119/77 87 01/12/17 14:00 104 01/12/17 13:00 92 21 107/67 91 01/12/17 12:00 98.8 104 27 113/77 94 01/12/17 12:00 98 01/12/17 11:00 91 18 106/59 94 01/12/17 10:00 98 01/12/17 10:00 102 26 126/78 89 01/12/17 09:00 94 15 120/74 92 01/12/17 08:13 94 T-piece 6.00 28 01/12/17 08:00 98 01/12/17 08:00 99.1 101 22 126/76 91 01/12/17 08:00 99 T-Piece 28 01/12/17 06:00 98 01/12/17 04:38 20 01/12/17 04:00 119 01/12/17 04:00 98.9 113 23 156/95 99 01/12/17 02:00 117 01/12/17 00:00 104 01/12/17 00:00 98.8 104 27 146/90 96 01/11/17 22:00 101 01/11/17 20:30 98 T-piece 6.00 28 01/11/17 20:00 101 01/11/17 20:00 99 T-Piece 28 01/11/17 20:00 98.7 101 28 134/97 99 I/O 01/11/17 01/11/17 01/11/17 01/12/17 01/12/17 01/12/17 07:00 15:00 23:00 07:00 15:00 23:00 Intake Total 560 ml 727 ml 461 ml 389 ml 811 ml Output Total 250 ml 325 ml 250 ml 200 ml 400 ml Balance 310 ml 402 ml 211 ml 189 ml 411 ml IV Total 389 ml 0 ml Tube Feeding 360 ml 527 ml 461 ml 611 ml Other 200 ml 200 ml 200 ml Output Urine Total 250 ml 325 ml 250 ml 200 ml 400 ml # Bowel Movements 2 1 Result Diagram: 01/11/1752001/11/17520 Objective Remarks GENERAL: MBMN WF, on Trach collar SKIN: Warm and dry. HEAD: Normocephalic. EYES: No scleral icterus. No injection or drainage. NECK: Supple, trachea midline. No JVD or lymphadenopathy. has trach CARDIOVASCULAR: Regular rate and rhythm without murmurs, gallops, or rubs. RESPIRATORY: Breath sounds equal bilaterally. No accessory muscle use. GASTROINTESTINAL: Abdomen soft, non-tender, nondistended. has PEG MUSCULOSKELETAL: No cyanosis, or edema. BACK: Nontender without obvious deformity. No CVA tenderness. A/P Assessment and Plan RF, S/P Trach CVA Arango arango disease CAD COPD SZ disorder PLAN: Aerosol nebs Cont trach collar supplement 02 Cont TF PARTHA RN Trach suction prn. Vernon Marx MD Jan 12, 2017 18:25
[2017-01-13] VITALS (19 sets, daily range): BP systolic 109–158; BP diastolic 63–93; PULSE 94–116; RESP 18–26; TEMP 98.9–99.4; O2SAT 88–98
[2017-01-13] MEDS: INSULIN NovoLIN REGULAR SUPPLEMENTAL SCALE SQ SCH ×4 (02:00→20:00)
[2017-01-13] MEDS: CHLORHEXIDINE GLUCONATE 2 % 1 PACK (2 CLOTHS) TOP SCH (04:00)
[2017-01-13] MEDS: FREE WATER G-TUBE SCH ×3 (06:00→21:26)
[2017-01-13] MEDS: CHLORHEXIDINE 0.12% (ORAL KIT) 15 ML CUP MT SCH ×2 (07:46→21:28)
[2017-01-13] MEDS: COLLAGENASE OINT 30 GM TUBE TOPICAL SCH (07:46)
[2017-01-13] MEDS: FOLIC ACID 1 MG TAB OG-TUBE SCH (07:47)
[2017-01-13] MEDS: LACTULOSE SYRUP 20 GM/30 ML CUP PO SCH ×2 (07:47→21:26)
[2017-01-13] MEDS: ATORVASTATIN 40 MG TAB PO SCH (07:47)
[2017-01-13] MEDS: DOCUSATE SODIUM 100 MG/10 ML UDC PO SCH ×2 (07:47→21:26)
[2017-01-13] MEDS: FAMOTIDINE 20 MG TAB NG SCH ×2 (07:47→21:27)
[2017-01-13] MEDS: levETIRAcetam 500 MG/5 ML UDC NG SCH ×2 (07:47→21:27)
[2017-01-13] MEDS: BROMOCRIPTINE MESYLATE 2.5 MG TAB OG-TUBE SCH ×2 (07:47→21:27)
[2017-01-13] MEDS: ASPIRIN 81 MG CHEW TAB NG SCH (07:47)
[2017-01-13] MEDS: carBAMazepine SUSP 200 MG/10 ML UDC PEG SCH ×2 (07:47→21:26)
[2017-01-13] MEDS: SENNOSIDES SYRUP 8.8 MG/5 ML CUP PO SCH ×2 (07:48→21:26)
[2017-01-13] MEDS: POLYETHYLENE GLYCOL 17 GM PKG PO SCH (07:48)
[2017-01-13] MEDS: SODIUM CHLORIDE 0.9% FLUSH 10 ML FLUSH IV FLUSH SCH ×2 (07:48→21:27)
[2017-01-13] MEDS: RESP: TOBRAMYCIN SULFATE 80 MG/2 ML NEB NEB SCH ×2 (08:50→21:39)
[2017-01-13] MEDS: JUVEN POWDER 1 PACK G-TUBE SCH ×2 (09:00→21:00)
[2017-01-13] MEDS: HYOSCYAMINE SOLN 0.125 MG/ML 15 ML BTL PO PRN ×2 (09:01→17:11)
--- NOTE | 2017-01-13 12:29 | HHI.PR ---
Subjective Remarks In bed. No events overnight. No seizures. Patient however is noted with more secretions. Discussed with the nurse to administer levsin and also for suctioning more often. Objective Vitals Vital Signs Date Time Temp Pulse Resp B/P Pulse Ox O2 Delivery O2 Flow Rate FiO2 01/13/17 08:50 98 T-piece 5.00 28 01/13/17 08:00 99.0 104 18 131/71 97 01/13/17 08:00 104 01/13/17 08:00 97 T-Piece 28 01/13/17 07:00 101 01/13/17 07:00 101 22 139/76 95 01/13/17 06:00 114 01/13/17 04:00 99.2 116 18 150/85 98 01/13/17 04:00 116 01/13/17 02:00 114 01/13/17 00:00 108 01/13/17 00:00 99.4 108 21 158/93 96 01/12/17 22:00 101 01/12/17 21:17 99 T-piece 6.00 28 01/12/17 20:00 99.0 104 18 125/79 100 01/12/17 20:00 100 T-Piece 28 01/12/17 20:00 102 01/12/17 18:00 106 20 123/82 91 01/12/17 18:00 106 01/12/17 17:00 98 20 118/84 98 01/12/17 17:00 98 01/12/17 16:00 97 01/12/17 16:00 98.9 97 18 137/68 93 01/12/17 15:00 106 25 127/87 89 01/12/17 15:00 106 01/12/17 14:00 104 26 119/77 87 01/12/17 14:00 104 01/12/17 13:00 92 21 107/67 91 I/O 01/12/17 01/12/17 01/12/17 01/13/17 01/13/17 01/13/17 07:00 15:00 23:00 07:00 15:00 23:00 Intake Total 389 ml 811 ml 597 ml 312 ml Output Total 200 ml 400 ml 300 ml 200 ml Balance 189 ml 411 ml 297 ml 112 ml IV Total 389 ml 0 ml 0 ml 0 ml Tube Feeding 611 ml 397 ml 252 ml Other 200 ml 200 ml 60 ml Output Urine Total 200 ml 400 ml 300 ml 200 ml # Bowel Movements 1 0 0 Result Diagram: 01/11/17 0521 01/11/17 0521 Imaging Last Impressions Chest X-Ray 01/09/17 0000 Signed Impressions: Service Date/Time: Monday, January 09, 2017 11:56 - CONCLUSION: Mild bilateral pulmonary vasculature indistinctness suggesting pulmonary vascular congestion/mild pulmonary edema. Sami Mccarthy MD Brain MRI 01/06/17 0000 Signed Impressions: Service Date/Time: January 14:19 - CONCLUSION: Continued evolutionary changes of large bilateral frontal lobe infarcts. Sami Mccarthy MD Abdomen X-Ray 11/26/16 0000 Signed Impressions: Service Date/Time: Saturday, November 26, 2016 10:18 - CONCLUSION: Distended stomach otherwise nonspecific abdomen. Jackson Murillo MD Objective Remarks GENERAL: Alert, sleepy, eyes open, does not respond to verbal commands. Currently on T piece. SKIN: Warm and dry. HEAD: Normocephalic. EYES: No scleral icterus. No injection or drainage. NECK: Supple, trachea midline. No JVD or lymphadenopathy. CARDIOVASCULAR: Regular rhythm, tachycardic without murmurs, gallops, or rubs. RESPIRATORY: Breath sounds equal bilaterally. No accessory muscle use. GASTROINTESTINAL: Abdomen soft, obese, non-tender, nondistended. MUSCULOSKELETAL: No cyanosis, or edema. Procedures 11/24/2016 Percutaneous tracheostomy. 11/18/2016 Moderate encephalopathy with suggestion of left temporal region cortical irritability. No active seizures. Clinical correlation. 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 Rivas is a 66-year-old female with a history of stroke who was admitted to the [facility] on 11/04/2016 due to difficulty getting her thoughts together. She was found to have multifocal nonhemorrhagic infarctions in the frontal and parietal regions. She was initially awake and following commands with weakness of RLE and some aphasia. She was transferred to [facility] where he had an cerebral angiogram consistent with moyamoya. There were plans to perform extracranial/intracranial bypass. However she had a seizure and ended up being intubated for status either 11/09 or 11/10.. She was found to have a new right frontal infarct area and she was started on Dilantin and Keppra and it was felt that she would not be a candidate for intervention. She has been intubated 9-10 days and apparently she has been tolerating C Pap trials to some extent but mental status prevents extubation. Treating team was discussing with family trach/PEG. Apparently family requested transfer back to [place] because they live locally here and wanted her closer to home. Patient remained under critical care medicine until 12/24/2016. Bilateral large frontal CVA Moyamoya - confirmed by arteriogram at [facility] October 2016. Seizure disorder Breakthrough seizures noted 01/06/17. Dr Flores neuro following. Repeat EEG no seizures and MRI no new findings. Continue keppra. Started tegretol per neuro. Brief episode of seizure -twitching of right arm overnight . Will repeat EEG. Neurology notified. 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 Added tegretol as noted breaktrheough seizures 01/06. EEG, MRI no new changes. Continue ASA 324 mg daily, atorvastatin 40 mg by mouth daily Continue bromocriptine 2.5 mg by mouth BID EEG-noted sharp spikes Neurology is following at a distance-Dr. Flores Has been evaluated tertiary care center [place] and felt to not be a candidate for further intervention. - COPD stable - Acute respiratory failure - currently on T piece. decreased Tracheostomy tube size by vendor specialist. - Multilobar pneumonia Status post tracheostomy on 11/24/2016. Pulmonary following. DC Zosyn 3.375 g every 6 hours. On tobramycin with nebulizers last dose 01/20 per ID DuoNeb when necessary. ID consulted, appreciate recommendations. -Hypernatremia, improving. - 2.2 likely zosyn. Consult ID for abx recommendations. DC zosyn. Started flush water 200 cc Q8Hrs. Monitor BMP. -Anemia iron deficiency stable will give Iron IV. - Nutrition - continue Jevity 1.5 through PEG tube. Full code. SCDs. Famotidine twice a day Status post Downgrade of her Tracheostomy tube, next step to cap it. No changes to anterior assessment. Laboratory was reviewed. Patient needs LTAC Dc pending improvement and clearance from consultants. Patient had breakthrough seizures 01/06 EEG, MRI no new changes. Seizure episode overnight 01/08, EEG no new seizures. Hyponatremia 2/2 zosyn ID will eval for change of abx, DC zosyn started tobramycin with nebs. Started free water 2000 cc q8 hrs, monitor Na Angela Trejo MD Jan 13, 2017 12:29
[2017-01-13 14:10] LABS: BICARBONATE 28.3 MEQ/L (21.0-32.0); POTASSIUM 4.3 MEQ/L (3.5-5.1)
--- NOTE | 2017-01-13 14:20 | HHI.HCPN ---
Reason for visit a. To assist with evaluation and management of symptoms including: encephalopathy, seizure, dyspnea, weakness, constipation. b. To assist medical decision maker(s) with: better understanding of current medical conditions; weighing benefits/burdens of medical treatment options; making medical treatment decisions. . Subjective/Interval History Seen to follow up on comfort, neurological status. No new witnessed seizures. Afebrile, ID has signed off. +tobramycin nebs. + copious secretions req. suctioning, + levsin. last labs 01/11, wbc 11. Remains on t-piece 28% fio2. Possible wean to trach cap. No changes in neuro assess reported- cont to be nonresponsive. 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 Pt seen in room no visitors present. She is with eyes closed, opens some to loud verbal + vigorous touch. Possible tracking. No withdraw to pain on extremities, +grimace to pain. Eyes closed/lethargic when not stimulating pt. After exam call to dtcarolina Joyce to provide update--VM left. D/w primary RN. . Advance Directives Living Will: Never completed Health Care Surrogate: Never completed Durable Power of Tipple Operator: Never completed Advance Directive Specifics Health Care Surrogate(s): No known written advance directives. Patient currently incapacitated to make her healthcare decisions. According to [place] statutes health care proxy decision-making falls to the majority of adult children. Patient has 3 children. . Objective Vital Signs Date Time Temp Pulse Resp B/P Pulse Ox O2 Delivery O2 Flow Rate FiO2 01/13/17 08:50 98 T-piece 5.00 28 01/13/17 08:00 99.0 104 18 131/71 97 01/13/17 08:00 104 01/13/17 08:00 97 T-Piece 28 01/13/17 07:00 101 01/13/17 07:00 101 22 139/76 95 01/13/17 06:00 114 01/13/17 04:00 99.2 116 18 150/85 98 01/13/17 04:00 116 01/13/17 02:00 114 01/13/17 00:00 108 01/13/17 00:00 99.4 108 21 158/93 96 01/12/17 22:00 101 01/12/17 21:17 99 T-piece 6.00 28 01/12/17 20:00 99.0 104 18 125/79 100 01/12/17 20:00 100 T-Piece 28 01/12/17 20:00 102 01/12/17 18:00 106 20 123/82 91 01/12/17 18:00 106 01/12/17 17:00 98 20 118/84 98 01/12/17 17:00 98 01/12/17 16:00 97 01/12/17 16:00 98.9 97 18 137/68 93 01/12/17 15:00 106 25 127/87 89 01/12/17 15:00 106 Intake & Output 01/13/17 01/13/17 07:00 19:00 Intake Total 909 ml Output Total 500 ml Balance 409 ml IV Total 0 ml Tube Feeding 649 ml Other 260 ml Output Urine Total 500 ml # Bowel Movements 0 Physical Exam CONSTITUTIONAL/GENERAL: lethargic, minimally responsive pt on tpiece. TUBES/LINES/DRAINS: PIV LFA , Tracheostomy, PEG, Brown, SCDs, multipodus boots. CARDIOVASCULAR: Regular rate and rhythm, no murmur. RESPIRATORY/CHEST: trach midline. Symmetric, unlabored respirations via trach to 28% FIO2 on T piece .+ mod amt beige secretions visible in trach tubing. Clear to auscultation. GASTROINTESTINAL: Abdomen soft, nondistended. Bowel sounds active. +PEG LUQ site asymptomatic, +TF infusing GENITOURINARY: Without palpable bladder distension. Brown catheter in place- clear yellow urine. NEUROLOGICAL: Eyes closed, intermittently opens to stimuli. Does not track examiner. +grimaces to pain stimuli to extremities. No withdrawal to pain stimuli to extremities. PSYCHIATRIC: limited assess due to clinical condition-- no signs of anxiety or distress . Diagnostic Tests Laboratory Laboratory Tests Test 01/11/17 05:21 White Blood Count 11.9 TH/MM3 (4.0-11.0) Red Blood Count 4.19 MIL/MM3 (4.00-5.30) Hemoglobin 10.6 GM/DL (11.6-15.3) Hematocrit 33.8 % (35.0-46.0) Mean Corpuscular Volume 80.6 FL (80.0-100.0) Mean Corpuscular Hemoglobin 25.2 PG (27.0-34.0) Mean Corpuscular Hemoglobin 31.3 % Concent (32.0-36.0) Red Cell Distribution Width 18.7 % (11.6-17.2) Platelet Count 262 TH/MM3 (150-450) Mean Platelet Volume 10.0 FL (7.0-11.0) Neutrophils (%) (Auto) 75.4 % (16.0-70.0) Lymphocytes (%) (Auto) 16.7 % (9.0-44.0) Monocytes (%) (Auto) 4.6 % (0.0-8.0) Eosinophils (%) (Auto) 2.5 % (0.0-4.0) Basophils (%) (Auto) 0.8 % (0.0-2.0) Neutrophils # (Auto) 9.0 TH/MM3 (1.8-7.7) Lymphocytes # (Auto) 2.0 TH/MM3 (1.0-4.8) Monocytes # (Auto) 0.5 TH/MM3 (0-0.9) Eosinophils # (Auto) 0.3 TH/MM3 (0-0.4) Basophils # (Auto) 0.1 TH/MM3 (0-0.2) CBC Comment DIFF FINAL Differential Comment Sodium Level 151 MEQ/L (136-145) Potassium Level 3.6 MEQ/L (3.5-5.1) Chloride Level 115 MEQ/L (98-107) Carbon Dioxide Level 28.0 MEQ/L (21.0-32.0) Anion Gap 8 MEQ/L (5-15) Blood Urea Nitrogen 23 MG/DL (7-18) Creatinine 0.45 MG/DL (0.50-1.00) Estimat Glomerular Filtration 140 ML/MIN Rate (>89) Random Glucose 141 MG/DL (74-106) Calcium Level 8.7 MG/DL (8.5-10.1) Phosphorus Level 3.0 MG/DL (2.5-4.9) Magnesium Level 2.4 MG/DL (1.5-2.5) Carbamazepine (Tegretol) Level 7.3 MCG/ML (4.0-12.0) Result Diagram: 01/11/17 0521 01/11/17 0521 Procedures 11/22 - PEG placement 11/30 - tracheostomy Assessment and Plan Disease Oriented Problem List: (1) CVA (cerebral vascular accident) (2) Moyamoya disease (3) Seizure Comment: On Keppra . (4) Generalized weakness Symptom Scale: (1) Seizure 0-10 Scale: Unable to quantify (2) Generalized weakness 0-10 Scale: Unable to quantify (3) Dyspnea 0-10 Scale: Unable to quantify (4) Constipation 0-10 Scale: Unable to quantify (5) Encephalopathy 0-10 Scale: Unable to quantify Pertinent Non-Medical Issues Psychosocial: Single. Has 2 daughters and one son. Spiritual: unknown. Legal: Patient is incapacitated to make healthcare decisions. No known written advanced directives. According to [place] Statutes, health care proxy decision making falls to majority of adult children. Patient has 2 daughters (Marcelo Joyce) and 1 son (Dwight). Ethical issues impacting care: No known concerns at this time. . Important Contacts * Maria Del Carmen Rivas, daughter: [phone] * Marcelo Rivas, daughter: [phone] * Dwight Rivas, son: [phone] . Prognosis MRI/EEG reviewed by neurology, prognosis felt to be poor, infarct noted to be huge. Repeat MRI done 12/[address] Flores and he feels that she may regain some ability to speak but does note that the infarct was a huge right frontal CVA and increased size of the left frontal CVA. EEG showed some left "sharps" and his recommendation was to continue Keppra. Prognosis remains poor in light of the most current studies. Code Status: Full Code Plan * Patient is incapacitated to make healthcare decisions. No known written advanced directives. According to [place] Statutes, health care proxy decision making falls to majority of adult children. Patient has 2 daughters (Marcelo Joyce) and 1 son (Dwight). * CODE STATUSFULL CODE * GOALS: Goals remain aggressive. There are differing opinions between the 2 daughters regarding DNR status ; they would continue full CODE STATUS until the family could reach a consensus. SYMPTOMS: * Seizure: hx seizures 2/2 CVA; EEG showed "left sharps" and was continued per neurology. She remains on Keppra, + sz reported last week (repeat eeg= no seizure, + mod to severe encephalopathy) Tegratol added by neuro. no new witnessed sz activity * Weakness: due to prolonged hospital course, bilateral infarcts. Not regaining any purposeful or spontaneous movements as of yet. PT continues to follow working with bed mobility requiring maximum assistance, not demonstrating any participation. Placement is pending. She has thus far been declined by all queried facilities. Case management following. * Dyspnea: Off sedation. tolerating T Piece. Prior Sputum culture shows Staphylococcus aureus and pseudomonas aeruginosa unchanged since sputum culture done 12/15 showing the same 2 organisms. zosyn d/c, now w tobramycin nebs. + copious beige secretions req freq. sx. No signs of tachypnea, or dyspnea. She remains at risk for complications due to severe mitral regurgitation, tracheostomy and immobility. * Encephalopathy: no change in alertness or responsiveness. Dr. Flores following. Repeat MRI with no changes. recent repeat eeg= no seizure, + mod to severe encephalopathy * Constipation: Resolved with regular bowel movements. Palliative care will continue to follow during hospital course as condition evolves, to assist patient/decision-maker with understanding of medical conditions, weighing benefits/burdens of treatment options, for clarification of goals of treatment. Additionally will assist with any symptoms of palliative concern. . Attestation To help prompt me to consider important information that might be impacting today's encounter and assessment, information from prior notes written by myself or my colleagues may have been "brought forward" into today's note. My signature on this note, however, is an attestation that I personally performed the exam, history, and/or decision-making noted today, and, unless otherwise indicated, the interactions with patient, family, and staff as well as the review of records all occurred today. I also attest that the listed assessment and stated plan reflect my best clinical judgment today based on the combination of historical information, prior notes, and today's exam/ interactions. When time spent is documented, it refers only to time spent today by the signer, or if indicated, combined time spent today by collaborating physician/nurse practitioner. Yuridia Almeida Jan 13, 2017 14:20
--- NOTE | 2017-01-13 18:54 | HHI.PR ---
Subjective Remarks 66 YOWF with Rf, s/p trach H/O CVA,Arango Arango disease On trach collar Awake, does't follow commands No fever.lot of trach secretions Requires frequent trach suction had Levsin twice today. Objective Vital Signs Vital Signs Date Time Temp Pulse Resp B/P Pulse Ox O2 Delivery O2 Flow Rate FiO2 01/13/17 18:00 98 01/13/17 16:00 101 01/13/17 16:00 98.9 101 26 122/78 95 01/13/17 15:00 101 23 136/87 96 01/13/17 15:00 101 01/13/17 14:00 101 01/13/17 14:00 101 19 139/82 95 01/13/17 13:00 94 01/13/17 13:00 94 19 109/63 92 01/13/17 12:00 103 01/13/17 12:00 98.9 103 25 130/79 95 01/13/17 11:00 101 01/13/17 11:00 101 21 130/75 93 01/13/17 10:00 103 01/13/17 10:00 103 18 128/71 95 01/13/17 09:00 100 23 129/69 88 01/13/17 08:50 98 T-piece 5.00 28 01/13/17 08:00 99.0 104 18 131/71 97 01/13/17 08:00 104 01/13/17 08:00 97 T-Piece 28 01/13/17 07:00 101 01/13/17 07:00 101 22 139/76 95 01/13/17 06:00 114 01/13/17 04:00 99.2 116 18 150/85 98 01/13/17 04:00 116 01/13/17 02:00 114 01/13/17 00:00 108 01/13/17 00:00 99.4 108 21 158/93 96 01/12/17 22:00 101 01/12/17 21:17 99 T-piece 6.00 28 01/12/17 20:00 99.0 104 18 125/79 100 01/12/17 20:00 100 T-Piece 28 01/12/17 20:00 102 I/O 01/12/17 01/12/17 01/12/17 01/13/17 01/13/17 01/13/17 07:00 15:00 23:00 07:00 15:00 23:00 Intake Total 389 ml 811 ml 597 ml 312 ml 794 ml Output Total 200 ml 400 ml 300 ml 200 ml 500 ml Balance 189 ml 411 ml 297 ml 112 ml 294 ml IV Total 389 ml 0 ml 0 ml 0 ml 0 ml Tube Feeding 611 ml 397 ml 252 ml 594 ml Other 200 ml 200 ml 60 ml 200 ml Output Urine Total 200 ml 400 ml 300 ml 200 ml 500 ml # Bowel Movements 1 0 0 1 Result Diagram: 01/11/17 0521 01/13/17 1330 Objective Remarks GENERAL: MBMN WF, on Trach collar SKIN: Warm and dry. HEAD: Normocephalic. EYES: No scleral icterus. No injection or drainage. NECK: Supple, trachea midline. No JVD or lymphadenopathy. has trach CARDIOVASCULAR: Regular rate and rhythm without murmurs, gallops, or rubs. RESPIRATORY: Breath sounds equal bilaterally. No accessory muscle use. GASTROINTESTINAL: Abdomen soft, non-tender, nondistended. has PEG MUSCULOSKELETAL: No cyanosis, or edema. BACK: Nontender without obvious deformity. No CVA tenderness. A/P Assessment and Plan RF, S/P Trach CVA Arango arango disease CAD COPD SZ disorder PLAN: Aerosol nebs Cont trach collar supplement 02 Cont TF DW RN Trach suction prn. Cont Levsin. Vernon Marx MD Jan 13, 2017 18:54
[2017-01-14] VITALS (16 sets, daily range): BP systolic 102–150; BP diastolic 62–95; PULSE 92–107; RESP 12–24; TEMP 97.8–99.3; O2SAT 93–100
[2017-01-14] MEDS: INSULIN NovoLIN REGULAR SUPPLEMENTAL SCALE SQ SCH ×4 (02:00→20:00)
[2017-01-14] MEDS: CHLORHEXIDINE GLUCONATE 2 % 1 PACK (2 CLOTHS) TOP SCH (04:00)
[2017-01-14] MEDS: FREE WATER G-TUBE SCH ×3 (04:51→18:00)
[2017-01-14] MEDS: HYOSCYAMINE SOLN 0.125 MG/ML 15 ML BTL PO PRN (04:53)
[2017-01-14 07:03] LABS: AUTOMATED NEUTROPHIL # 8.6 TH/MM3 (1.8-7.7); BASOPHIL % 0.4 % (0.0-2.0); EOSINOPHIL # 0.6 TH/MM3 (0-0.4); EOSINOPHIL % 4.7 % (0.0-4.0); HEMATOCRIT 38.8 % (35.0-46.0); HEMO FLAGS DIFF FINAL; LYMPH % 19.7 % (9.0-44.0); LYMPHOCYTE # 2.4 TH/MM3 (1.0-4.8); MEAN CELL VOLUME 81.8 FL (80.0-100.0); MEAN CORPUSCULAR HEMOGLOBIN 25.6 PG (27.0-34.0); MEAN CORPUSCULAR HGB CONC 31.3 % (32.0-36.0); MONO % 3.5 % (0.0-8.0); NEUT % 71.7 % (16.0-70.0); PLATELET COUNT 306 TH/MM3 (150-450); RED BLOOD COUNT 4.75 MIL/MM3 (4.00-5.30); RED CELL DISTRIBUTION WIDTH 19.2 % (11.6-17.2)
[2017-01-14 07:31] LABS: BICARBONATE 31.2 MEQ/L (21.0-32.0); POTASSIUM 4.1 MEQ/L (3.5-5.1)
[2017-01-14] MEDS: RESP: TOBRAMYCIN SULFATE 80 MG/2 ML NEB NEB SCH ×2 (07:43→19:52)
[2017-01-14] MEDS: SENNOSIDES SYRUP 8.8 MG/5 ML CUP PO SCH ×2 (07:49→21:10)
[2017-01-14] MEDS: levETIRAcetam 500 MG/5 ML UDC NG SCH ×2 (07:49→21:09)
[2017-01-14] MEDS: ATORVASTATIN 40 MG TAB PO SCH (07:50)
[2017-01-14] MEDS: DOCUSATE SODIUM 100 MG/10 ML UDC PO SCH ×2 (07:50→21:08)
[2017-01-14] MEDS: carBAMazepine SUSP 200 MG/10 ML UDC PEG SCH ×2 (07:50→21:09)
[2017-01-14] MEDS: FAMOTIDINE 20 MG TAB NG SCH ×2 (07:50→21:08)
[2017-01-14] MEDS: LACTULOSE SYRUP 20 GM/30 ML CUP PO SCH ×2 (07:50→21:09)
[2017-01-14] MEDS: ASPIRIN 81 MG CHEW TAB NG SCH (07:50)
[2017-01-14] MEDS: BROMOCRIPTINE MESYLATE 2.5 MG TAB OG-TUBE SCH ×2 (07:50→21:08)
[2017-01-14] MEDS: POLYETHYLENE GLYCOL 17 GM PKG PO SCH (07:50)
[2017-01-14] MEDS: FOLIC ACID 1 MG TAB OG-TUBE SCH (07:50)
[2017-01-14] MEDS: SODIUM CHLORIDE 0.9% FLUSH 10 ML FLUSH IV FLUSH SCH ×2 (07:51→21:09)
[2017-01-14] MEDS: JUVEN POWDER 1 PACK G-TUBE SCH ×2 (07:51→21:00)
[2017-01-14] MEDS: CHLORHEXIDINE 0.12% (ORAL KIT) 15 ML CUP MT SCH ×2 (07:51→21:10)
--- NOTE | 2017-01-14 09:35 | HHI.PR ---
Subjective Remarks Less secretions today. She is sleepy. No seizures overnight. Objective Vitals Vital Signs Date Time Temp Pulse Resp B/P Pulse Ox O2 Delivery O2 Flow Rate FiO2 01/14/17 08:00 107 01/14/17 08:00 98 T-Piece 28 01/14/17 08:00 99.3 107 24 131/84 98 01/14/17 07:43 99 T-piece 6.00 40 01/14/17 06:00 107 01/14/17 04:00 98.1 105 22 150/92 97 01/14/17 04:00 105 01/14/17 02:00 101 01/14/17 00:00 101 01/14/17 00:00 99.1 101 24 143/95 93 01/13/17 22:00 96 01/13/17 21:42 96 T-piece 6.00 40 01/13/17 20:00 99.3 101 24 128/85 88 01/13/17 20:00 101 01/13/17 20:00 88 T-Piece 28 01/13/17 18:00 98 01/13/17 16:00 101 01/13/17 16:00 98.9 101 26 122/78 95 01/13/17 15:00 101 23 136/87 96 01/13/17 15:00 101 01/13/17 14:00 101 01/13/17 14:00 101 19 139/82 95 01/13/17 13:00 94 01/13/17 13:00 94 19 109/63 92 01/13/17 12:00 103 01/13/17 12:00 98.9 103 25 130/79 95 01/13/17 11:00 101 01/13/17 11:00 101 21 130/75 93 01/13/17 10:00 103 01/13/17 10:00 103 18 128/71 95 I/O 01/13/17 01/13/17 01/13/17 01/14/17 01/14/17 01/14/17 06:59 14:59 22:59 06:59 14:59 22:59 Intake Total 312 ml 794 ml 554 ml 417 ml Output Total 200 ml 500 ml 250 ml 300 ml Balance 112 ml 294 ml 304 ml 117 ml IV Total 0 ml 0 ml 0 ml 0 ml Tube Feeding 252 ml 594 ml 354 ml 417 ml Other 60 ml 200 ml 200 ml Output Urine Total 200 ml 500 ml 250 ml 300 ml # Bowel Movements 0 1 0 0 Result Diagram: 01/14/1731 01/14/1731 Objective Remarks GENERAL: Alert, sleepy, eyes open, does not respond to verbal commands. Currently on T piece. SKIN: Warm and dry. HEAD: Normocephalic. EYES: No scleral icterus. No injection or drainage. NECK: Supple, trachea midline. No JVD or lymphadenopathy. CARDIOVASCULAR: Regular rhythm, tachycardic without murmurs, gallops, or rubs. RESPIRATORY: Breath sounds equal bilaterally. No accessory muscle use. GASTROINTESTINAL: Abdomen soft, obese, non-tender, nondistended. MUSCULOSKELETAL: No cyanosis, or edema. Procedures 11/24/2016 Percutaneous tracheostomy. 11/18/2016 Moderate encephalopathy with suggestion of left temporal region cortical irritability. No active seizures. Clinical correlation. 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 Rivas is a 66-year-old female with a history of stroke who was admitted to the [facility] on 11/04/2016 due to difficulty getting her thoughts together. She was found to have multifocal nonhemorrhagic infarctions in the frontal and parietal regions. She was initially awake and following commands with weakness of RLE and some aphasia. She was transferred to [facility] where he had an cerebral angiogram consistent with moyamoya. There were plans to perform extracranial/intracranial bypass. However she had a seizure and ended up being intubated for status either 11/09 or 11/10.. She was found to have a new right frontal infarct area and she was started on Dilantin and Keppra and it was felt that she would not be a candidate for intervention. She has been intubated 9-10 days and apparently she has been tolerating C Pap trials to some extent but mental status prevents extubation. Treating team was discussing with family trach/PEG. Apparently family requested transfer back to [place] because they live locally here and wanted her closer to home. Patient remained under critical care medicine until 12/24/2016. Bilateral large frontal CVA Moyamoya - confirmed by arteriogram at [facility] October 2016. Seizure disorder Breakthrough seizures noted 01/06/17. Dr Flores neuro following. Repeat EEG no seizures and MRI no new findings. Continue keppra. Started tegretol per neuro. Brief episode of seizure -twitching of right arm overnight 01/08/. Will repeat EEG. Neurology notified. 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 Added tegretol as noted breaktrheough seizures 01/06. EEG, MRI no new changes. Continue ASA 324 mg daily, atorvastatin 40 mg by mouth daily Continue bromocriptine 2.5 mg by mouth BID EEG-noted sharp spikes Neurology is following at a distance-Dr. Flores Has been evaluated tertiary care center [place] and felt to not be a candidate for further intervention. - COPD stable - Acute respiratory failure - currently on T piece. decreased Tracheostomy tube size by pharmacy clinical specialist. - Multilobar pneumonia Status post tracheostomy on 11/24/2016. Pulmonary following. DC Zosyn 3.375 g every 6 hours. On tobramycin with nebulizers last dose 01/20 per ID DuoNeb when necessary. ID consulted, appreciate recommendations. -Hypernatremia, improving. - 2.2 likely zosyn. Consult ID for abx recommendations. DC zosyn. Started flush water 200 cc Q8Hrs. Monitor BMP. -Anemia iron deficiency stable will give Iron IV. - Nutrition - continue Jevity 1.5 through PEG tube. Full code. SCDs. Famotidine twice a day Status post Downgrade of her Tracheostomy tube, next step to cap it. No changes to anterior assessment. Laboratory was reviewed. Patient needs LTAC Dc pending improvement and clearance from consultants. Patient had breakthrough seizures 01/06 EEG, MRI no new changes. Seizure episode overnight 01/08, EEG no new seizures. Hyponatremia 2/2 zosyn ID will eval for change of abx, DC zosyn started tobramycin with nebs. Started free water 2000 cc q8 hrs, monitor Na Angela Trejo MD Jan 14, 2017 09:35
[2017-01-14] MEDS: COLLAGENASE OINT 30 GM TUBE TOPICAL SCH (10:06)
--- NOTE | 2017-01-14 16:44 | HHI.PR ---
Subjective Remarks 66 YOWF with Rf, s/p trach H/O CVA,Arango Arango disease On trach collar Awake, does't follow commands No fever.lot of trach secretions Requires frequent trach suction Objective Vital Signs Vital Signs Date Time Temp Pulse Resp B/P Pulse Ox O2 Delivery O2 Flow Rate FiO2 01/14/17 14:00 104 01/14/17 12:00 98 T-Piece 28 01/14/17 12:00 102 01/14/17 12:00 98.6 102 14 113/69 98 01/14/17 10:00 97 01/14/17 08:00 107 01/14/17 08:00 98 T-Piece 28 01/14/17 08:00 99.3 107 24 131/84 98 01/14/17 07:43 99 T-piece 6.00 40 01/14/17 06:00 107 01/14/17 04:00 98.1 105 22 150/92 97 01/14/17 04:00 105 01/14/17 02:00 101 01/14/17 00:00 101 01/14/17 00:00 99.1 101 24 143/95 93 01/13/17 22:00 96 01/13/17 21:42 96 T-piece 6.00 40 01/13/17 20:00 99.3 101 24 128/85 88 01/13/17 20:00 101 01/13/17 20:00 88 T-Piece 28 01/13/17 18:00 98 I/O 01/13/17 01/13/17 01/13/17 01/14/17 01/14/17 01/14/17 06:59 14:59 22:59 06:59 14:59 22:59 Intake Total 312 ml 794 ml 554 ml 417 ml 780 ml Output Total 200 ml 500 ml 250 ml 300 ml 200 ml Balance 112 ml 294 ml 304 ml 117 ml 580 ml IV Total 0 ml 0 ml 0 ml 0 ml Tube Feeding 252 ml 594 ml 354 ml 417 ml 420 ml Other 60 ml 200 ml 200 ml 360 ml Output Urine Total 200 ml 500 ml 250 ml 300 ml 200 ml # Bowel Movements 0 1 0 0 1 Result Diagram: 01/14/1753001/14/17530 Objective Remarks GENERAL: MBMN WF, on Trach collar SKIN: Warm and dry. HEAD: Normocephalic. EYES: No scleral icterus. No injection or drainage. NECK: Supple, trachea midline. No JVD or lymphadenopathy. has trach CARDIOVASCULAR: Regular rate and rhythm without murmurs, gallops, or rubs. RESPIRATORY: Breath sounds equal bilaterally. No accessory muscle use. GASTROINTESTINAL: Abdomen soft, non-tender, nondistended. has PEG MUSCULOSKELETAL: No cyanosis, or edema. BACK: Nontender without obvious deformity. No CVA tenderness. A/P Assessment and Plan RF, S/P Trach CVA Arango arango disease CAD COPD SZ disorder PLAN: Aerosol nebs Cont trach collar supplement 02 Cont TF DW RN Trach suction prn. Cont Levsin. Stable pulm status Vernon Marx MD Jan 14, 2017 16:44
[2017-01-15] VITALS (14 sets, daily range): BP systolic 116–129; BP diastolic 68–80; PULSE 91–108; RESP 16–28; TEMP 97.3–99; O2SAT 95–99
[2017-01-15] MEDS: FREE WATER G-TUBE SCH ×5 (01:54→22:52)
[2017-01-15] MEDS: INSULIN NovoLIN REGULAR SUPPLEMENTAL SCALE SQ SCH ×4 (01:55→20:00)
[2017-01-15] MEDS: CHLORHEXIDINE GLUCONATE 2 % 1 PACK (2 CLOTHS) TOP SCH (04:00)
[2017-01-15] MEDS: DOCUSATE SODIUM 100 MG/10 ML UDC PO SCH ×2 (07:46→21:00)
[2017-01-15] MEDS: carBAMazepine SUSP 200 MG/10 ML UDC PEG SCH ×2 (07:46→21:27)
[2017-01-15] MEDS: CHLORHEXIDINE 0.12% (ORAL KIT) 15 ML CUP MT SCH ×2 (07:46→21:25)
[2017-01-15] MEDS: ASPIRIN 81 MG CHEW TAB NG SCH (07:47)
[2017-01-15] MEDS: FAMOTIDINE 20 MG TAB NG SCH ×2 (07:47→21:26)
[2017-01-15] MEDS: BROMOCRIPTINE MESYLATE 2.5 MG TAB OG-TUBE SCH ×2 (07:47→21:26)
[2017-01-15] MEDS: FOLIC ACID 1 MG TAB OG-TUBE SCH (07:47)
[2017-01-15] MEDS: ATORVASTATIN 40 MG TAB PO SCH (07:47)
[2017-01-15] MEDS: SODIUM CHLORIDE 0.9% FLUSH 10 ML FLUSH IV FLUSH SCH ×2 (07:48→21:26)
[2017-01-15] MEDS: COLLAGENASE OINT 30 GM TUBE TOPICAL SCH (07:49)
[2017-01-15] MEDS: levETIRAcetam 500 MG/5 ML UDC NG SCH ×2 (07:52→21:26)
[2017-01-15] MEDS: SENNOSIDES SYRUP 8.8 MG/5 ML CUP PO SCH ×2 (07:52→21:00)
[2017-01-15] MEDS: POLYETHYLENE GLYCOL 17 GM PKG PO SCH (07:52)
[2017-01-15] MEDS: LACTULOSE SYRUP 20 GM/30 ML CUP PO SCH ×2 (07:52→21:00)
[2017-01-15 08:06] LABS: AUTOMATED NEUTROPHIL # 7.8 TH/MM3 (1.8-7.7); BASOPHIL # 0.1 TH/MM3 (0-0.2); BASOPHIL % 0.7 % (0.0-2.0); EOSINOPHIL # 0.7 TH/MM3 (0-0.4); EOSINOPHIL % 6.3 % (0.0-4.0); HEMATOCRIT 31.7 % (35.0-46.0); HEMO FLAGS DIFF FINAL; LYMPH % 17.1 % (9.0-44.0); LYMPHOCYTE # 1.9 TH/MM3 (1.0-4.8); MEAN CELL VOLUME 81.1 FL (80.0-100.0); MEAN CORPUSCULAR HEMOGLOBIN 25.6 PG (27.0-34.0); MEAN CORPUSCULAR HGB CONC 31.5 % (32.0-36.0); MONO % 4.3 % (0.0-8.0); NEUT % 71.6 % (16.0-70.0); PLATELET COUNT 302 TH/MM3 (150-450); RED BLOOD COUNT 3.91 MIL/MM3 (4.00-5.30); RED CELL DISTRIBUTION WIDTH 18.5 % (11.6-17.2)
[2017-01-15] MEDS: RESP: TOBRAMYCIN SULFATE 80 MG/2 ML NEB NEB SCH ×2 (08:09→20:02)
[2017-01-15 08:47] LABS: BICARBONATE 26.3 MEQ/L (21.0-32.0); POTASSIUM 3.9 MEQ/L (3.5-5.1)
[2017-01-15] MEDS: JUVEN POWDER 1 PACK G-TUBE SCH ×2 (09:00→21:00)
--- NOTE | 2017-01-15 09:53 | HHI.PR ---
Subjective Remarks Patient appears distress. She was suctioned by the nurse, patient still with patient's. She was noted with low urine output, now better after increasing her water flushes. No seizures overnight. Objective Vitals Vital Signs Date Time Temp Pulse Resp B/P Pulse Ox O2 Delivery O2 Flow Rate FiO2 01/15/17 08:10 98 T-piece 6.00 28 01/15/17 08:00 97.3 96 16 129/80 96 01/15/17 08:00 T-Piece 6.00 28 01/15/17 08:00 96 01/15/17 06:00 104 01/15/17 04:00 99 T-Piece 01/15/17 04:00 97.8 108 22 121/77 95 01/15/17 04:00 108 01/15/17 02:00 98 01/15/17 00:00 96 T-Piece 01/15/17 00:00 98.2 103 22 119/79 96 01/15/17 00:00 103 01/14/17 22:00 94 01/14/17 20:00 98 T-Piece 01/14/17 20:00 97.8 100 22 124/78 99 01/14/17 20:00 100 01/14/17 19:52 100 5.00 35 01/14/17 18:00 104 01/14/17 17:00 96 17 122/68 98 01/14/17 16:00 99.0 99 12 141/73 98 01/14/17 16:00 T-Piece 01/14/17 15:00 92 17 102/62 96 01/14/17 14:00 104 01/14/17 14:00 104 18 131/82 99 01/14/17 12:00 98 T-Piece 01/14/17 12:00 102 01/14/17 12:00 98.6 102 14 113/69 98 01/14/17 10:00 97 I/O 01/14/17 01/14/17 01/14/17 01/15/17 01/15/17 01/15/17 07:00 15:00 23:00 07:00 15:00 23:00 Intake Total 417 ml 780 ml 794 ml 636 ml Output Total 300 ml 200 ml 250 ml 200 ml 0 ml Balance 117 ml 580 ml 544 ml 436 ml 0 ml IV Total 0 ml Tube Feeding 417 ml 420 ml 394 ml 436 ml Other 360 ml 400 ml 200 ml Output Urine Total 300 ml 200 ml 250 ml 200 ml Tube Feeding Residual Discard 0 ml # Bowel Movements 0 1 2 Result Diagram: 01/15/17 0635 01/15/17 0635 Imaging Last Impressions Chest X-Ray 01/09/17 0000 Signed Impressions: Service Date/Time: Monday, January 09, 2017 11:56 - CONCLUSION: Mild bilateral pulmonary vasculature indistinctness suggesting pulmonary vascular congestion/mild pulmonary edema. Sami Mccarthy MD Brain MRI 01/06/17 0000 Signed Impressions: Service Date/Time: January 14:19 - CONCLUSION: Continued evolutionary changes of large bilateral frontal lobe infarcts. Sami Mccarthy MD Abdomen X-Ray 11/26/16 0000 Signed Impressions: Service Date/Time: Saturday, November 26, 2016 10:18 - CONCLUSION: Distended stomach otherwise nonspecific abdomen. Jackson Murillo MD Objective Remarks GENERAL: Alert, sleepy, eyes open, does not respond to verbal commands. Currently on T piece. SKIN: Warm and dry. HEAD: Normocephalic. EYES: No scleral icterus. No injection or drainage. NECK: Supple, trachea midline. No JVD or lymphadenopathy. CARDIOVASCULAR: Regular rhythm, tachycardic without murmurs, gallops, or rubs. RESPIRATORY: Breath sounds equal bilaterally. No accessory muscle use. GASTROINTESTINAL: Abdomen soft, obese, non-tender, nondistended. MUSCULOSKELETAL: No cyanosis, or edema. Procedures 11/24/2016 Percutaneous tracheostomy. 11/18/2016 Moderate encephalopathy with suggestion of left temporal region cortical irritability. No active seizures. Clinical correlation. 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 Rivas is a 66-year-old female with a history of stroke who was admitted to the [facility] on 11/04/2016 due to difficulty getting her thoughts together. She was found to have multifocal nonhemorrhagic infarctions in the frontal and parietal regions. She was initially awake and following commands with weakness of RLE and some aphasia. She was transferred to [facility] where he had an cerebral angiogram consistent with moyamoya. There were plans to perform extracranial/intracranial bypass. However she had a seizure and ended up being intubated for status either 11/09 or 11/10.. She was found to have a new right frontal infarct area and she was started on Dilantin and Keppra and it was felt that she would not be a candidate for intervention. She has been intubated 9-10 days and apparently she has been tolerating C Pap trials to some extent but mental status prevents extubation. Treating team was discussing with family trach/PEG. Apparently family requested transfer back to [place] because they live locally here and wanted her closer to home. Patient remained under critical care medicine until 12/24/2016. Bilateral large frontal CVA Moyamoya - confirmed by arteriogram at [facility] October 2016. Seizure disorder Breakthrough seizures noted 01/06/17. Dr Flores neuro following. Repeat EEG no seizures and MRI no new findings. Continue keppra. Started tegretol per neuro. Brief episode of seizure -twitching of right arm overnight . Will repeat EEG. Neurology notified. 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 Added tegretol as noted breaktrheough seizures 01/06. EEG, MRI no new changes. Continue ASA 324 mg daily, atorvastatin 40 mg by mouth daily Continue bromocriptine 2.5 mg by mouth BID EEG-noted sharp spikes Neurology is following at a distance-Dr. Flores Has been evaluated tertiary care center [place] and felt to not be a candidate for further intervention. - COPD stable - Acute respiratory failure - currently on T piece. decreased Tracheostomy tube size by principal technical specialist. - Multilobar pneumonia Status post tracheostomy on 11/24/2016. Pulmonary following. DC Zosyn 3.375 g every 6 hours. On tobramycin with nebulizers last dose 01/20 per ID DuoNeb when necessary. ID consulted, appreciate recommendations. -Hypernatremia, improving. - 2.2 likely zosyn. Consult ID for abx recommendations. DC zosyn. Started flush water 200 cc Q8Hrs. Monitor BMP. -Anemia iron deficiency stable will give Iron IV. - Nutrition - continue Jevity 1.5 through PEG tube. Full code. SCDs. Famotidine twice a day Status post Downgrade of her Tracheostomy tube, next step to cap it. No changes to anterior assessment. Laboratory was reviewed. Patient needs LTAC Dc pending improvement and clearance from consultants. Patient had breakthrough seizures 01/06 EEG, MRI no new changes. Seizure episode overnight 01/08, EEG no new seizures. Hyponatremia 2/2 zosyn ID will eval for change of abx, DC zosyn started tobramycin with nebs. Started free water 200 cc q8 hrs, monitor Na. Noted with low UOP, and hyponatremia. Increased free water flushes at 200 qid. UOP better. Na improving. Monitor. Angela Trejo MD Jan 15, 2017 09:53
[2017-01-15] MEDS: HYOSCYAMINE SOLN 0.125 MG/ML 15 ML BTL PO PRN ×2 (18:07→22:52)
[2017-01-15] MEDS: RESP: ALBUTEROL 2.5 MG/3 ML NEB (PRN) INH (19:41)
[2017-01-16] VITALS (19 sets, daily range): BP systolic 107–148; BP diastolic 57–100; PULSE 88–109; RESP 17–35; TEMP 96.7–99.1; O2SAT 91–98
[2017-01-16] MEDS: INSULIN NovoLIN REGULAR SUPPLEMENTAL SCALE SQ SCH ×4 (02:00→20:00)
[2017-01-16] MEDS: CHLORHEXIDINE GLUCONATE 2 % 1 PACK (2 CLOTHS) TOP SCH (05:35)
[2017-01-16] MEDS: FREE WATER G-TUBE SCH ×4 (05:36→23:54)
[2017-01-16 06:33] LABS: AUTOMATED NEUTROPHIL # 8.9 TH/MM3 (1.8-7.7); BASOPHIL # 0.1 TH/MM3 (0-0.2); BASOPHIL % 0.4 % (0.0-2.0); EOSINOPHIL # 0.7 TH/MM3 (0-0.4); EOSINOPHIL % 5.5 % (0.0-4.0); HEMATOCRIT 32.6 % (35.0-46.0); HEMO FLAGS DIFF FINAL; LYMPH % 16.4 % (9.0-44.0); MEAN CELL VOLUME 80.4 FL (80.0-100.0); MEAN CORPUSCULAR HEMOGLOBIN 25.1 PG (27.0-34.0); MEAN CORPUSCULAR HGB CONC 31.2 % (32.0-36.0); MONO % 3.8 % (0.0-8.0); NEUT % 73.9 % (16.0-70.0); PLATELET COUNT 350 TH/MM3 (150-450); RED BLOOD COUNT 4.05 MIL/MM3 (4.00-5.30); RED CELL DISTRIBUTION WIDTH 18.2 % (11.6-17.2)
[2017-01-16 06:57] LABS: BICARBONATE 26.9 MEQ/L (21.0-32.0); POTASSIUM 3.8 MEQ/L (3.5-5.1)
[2017-01-16] MEDS: RESP: TOBRAMYCIN SULFATE 80 MG/2 ML NEB NEB SCH ×2 (07:26→20:21)
[2017-01-16] MEDS: SENNOSIDES SYRUP 8.8 MG/5 ML CUP PO SCH ×2 (07:36→21:45)
[2017-01-16] MEDS: POLYETHYLENE GLYCOL 17 GM PKG PO SCH (07:36)
[2017-01-16] MEDS: ATORVASTATIN 40 MG TAB PO SCH (08:22)
[2017-01-16] MEDS: JUVEN POWDER 1 PACK G-TUBE SCH ×2 (08:22→21:00)
[2017-01-16] MEDS: ASPIRIN 81 MG CHEW TAB NG SCH (08:22)
[2017-01-16] MEDS: DOCUSATE SODIUM 100 MG/10 ML UDC PO SCH ×2 (08:22→21:46)
[2017-01-16] MEDS: carBAMazepine SUSP 200 MG/10 ML UDC PEG SCH ×2 (08:22→21:45)
[2017-01-16] MEDS: BROMOCRIPTINE MESYLATE 2.5 MG TAB OG-TUBE SCH ×2 (08:22→21:45)
[2017-01-16] MEDS: FOLIC ACID 1 MG TAB OG-TUBE SCH (08:22)
[2017-01-16] MEDS: HYOSCYAMINE SOLN 0.125 MG/ML 15 ML BTL PO PRN (08:23)
[2017-01-16] MEDS: levETIRAcetam 500 MG/5 ML UDC NG SCH ×2 (08:23→21:45)
[2017-01-16] MEDS: MORPHINE SULFATE 4 MG/ML INJ IV PRN (08:23)
[2017-01-16] MEDS: FAMOTIDINE 20 MG TAB NG SCH ×2 (08:23→21:45)
[2017-01-16] MEDS: LACTULOSE SYRUP 20 GM/30 ML CUP PO SCH ×2 (08:24→21:45)
[2017-01-16] MEDS: SODIUM CHLORIDE 0.9% FLUSH 10 ML FLUSH IV FLUSH SCH ×2 (08:24→21:46)
[2017-01-16] MEDS: CHLORHEXIDINE 0.12% (ORAL KIT) 15 ML CUP MT SCH ×2 (08:24→21:44)
[2017-01-16] MEDS: COLLAGENASE OINT 30 GM TUBE TOPICAL SCH (08:28)
--- NOTE | 2017-01-16 12:43 | HHI.PR ---
Subjective Remarks Patient is nonverbal with minimal responsiveness. Responds to noises. No changes in last 24 hours. No acute concerns. Objective Vital Signs Date Time Temp Pulse Resp B/P Pulse Ox O2 Delivery O2 Flow Rate FiO2 01/16/17 11:00 93 17 114/68 96 01/16/17 10:00 92 17 107/57 92 01/16/17 10:00 92 01/16/17 09:00 91 21 111/63 91 01/16/17 08:00 97 T-Piece 28 01/16/17 08:00 109 01/16/17 08:00 98.1 109 35 148/94 97 01/16/17 07:27 98 T-piece 6.00 28 01/16/17 07:00 105 35 139/100 97 01/16/17 06:00 102 01/16/17 04:00 98.3 98 28 139/87 96 01/16/17 04:00 96 T-Piece 28 01/16/17 04:00 98 01/16/17 02:00 104 01/16/17 00:00 99 01/16/17 00:00 99 T-Piece 28 01/16/17 00:00 96.7 99 27 136/86 95 01/15/17 22:00 98 01/15/17 20:00 99 T-Piece 28 01/15/17 20:00 99.0 91 20 117/68 99 01/15/17 20:00 91 01/15/17 19:41 96 T-piece 6.00 28 01/15/17 18:00 105 01/15/17 16:00 98 01/15/17 16:00 T-Piece 6.00 28 01/15/17 16:00 97.9 98 28 116/69 96 01/15/17 14:00 103 I/O 01/15/17 01/15/17 01/15/17 01/16/17 01/16/17 01/16/17 07:00 15:00 23:00 07:00 15:00 23:00 Intake Total 636 ml 710 ml 441 ml 430 ml Output Total 200 ml 1000.0 ml 275 ml 175 ml Balance 436 ml -290.0 ml 166 ml 255 ml Intake Oral 0 ml 0 ml IV Total 0 ml 0 ml Tube Feeding 436 ml 450 ml 441 ml 430 ml Tube Irrigant 60 ml Other 200 ml 200 ml Output Urine Total 200 ml 1000 ml 275 ml 175 ml Tube Feeding Residual Discard 0 ml 0 ml # Bowel Movements 1 1 0 Result Diagram: 01/16/17 0557 01/16/17 0557 Procedures 11/24/2016 Percutaneous tracheostomy. Objective Remarks GENERAL: Awake but unresponsive, alert and oriented 0 SKIN: Warm and dry. HEAD/NECK: Normocephalic. Tracheostomy in place. EYES: No scleral icterus. No injection or drainage. NECK: Supple, trachea midline. No JVD or lymphadenopathy. CARDIOVASCULAR: Regular rate and rhythm without murmurs, gallops, or rubs. RESPIRATORY: Breath sounds equal bilaterally. No accessory muscle use. GASTROINTESTINAL: Abdomen soft, non-tender, nondistended. MUSCULOSKELETAL: No cyanosis, or edema. Bedbound. NEURO: Global and extreme neurological deficits. Medications and IVs Administered Medications Medications (Trade) Dose Ordered Sig/Ora Route PRN Reason Start Time Stop Time Status Last Admin Dose Admin Chlorhexidine Gluconate (Peridex 0.12% Liq) 15 ml BID@08,20 MT 11/18/16 08:00 01/16/17 08:24 Sodium Chloride (NS Flush) 2 ml BID IV FLUSH 11/18/16 09:00 01/16/17 08:24 Acetaminophen (Tylenol) 650 mg Q6H PRN PO FEVER >101F 11/18/16 03:30 01/01/17 16:01 Acetaminophen/ Hydrocodone Bitart ([place] 5-325 Mg) 1 tab Q4H PRN PO PAIN SCALE 1 - 5 11/18/16 03:30 01/11/17 08:38 Morphine Sulfate (Morphine Inj) 2 mg Q2H PRN IV PAIN SCALE 6 TO 10 11/18/16 03:30 01/16/17 08:23 Ondansetron HCl (Zofran Inj) 4 mg Q6H PRN IV NAUSEA OR VOMITING 11/18/16 03:30 11/26/16 03:20 Miscellaneous Information 1 Q361D XX 11/18/16 03:30 11/18/16 03:30 Chlorhexidine Gluconate (Chlorhexidine 2% Cloth) 3 pack Taper DAILY@04 TOP 11/18/16 04:00 11/14/17 03:59 01/16/17 05:35 Aspirin (Aspirin Chew) 324 mg DAILY NG 11/18/16 09:00 6/11/17 08:22 Atorvastatin Calcium (Lipitor) 40 mg DAILY PO 11/18/16 09:00 01/16/17 08:22 Bromocriptine Mesylate (Parlodel) 2.5 mg Q12HR OG-TUBE 11/18/16 09:00 01/16/17 08:22 Folic Acid 1 mg 1 mg DAILY OG-TUBE 11/18/16 09:00 01/16/17 08:22 Potassium Chloride (KCl 20 Meq Premix Inj) 100 ml @ 50 mls/hr Q2H PRN IV For Potassium 2.8 - 3.2 mEq/L 11/18/16 13:30 11/27/16 14:13 Potassium Bicarb/ Potassium Chloride 50 meq 50 meq UNSCH PRN PO For Potassium 3.3 - 3.5 mEq/L 11/18/16 13:30 11/29/16 06:20 Potassium Chloride (KCl 20 Meq Premix Inj) 100 ml @ 50 mls/hr Q2H PRN IV For Potassium 3.3 - 3.5 mEq/L 11/18/16 13:30 11/24/16 06:27 Sennosides (Senna Liq) 8.8 mg BID PO 11/19/16 21:00 01/15/17 07:52 Docusate Sodium (Colace Liq) 100 mg Q12HR PO 11/19/16 21:00 01/16/17 08:22 Polyethylene Glycol (Miralax) 17 gm DAILY PO 11/21/16 18:00 01/15/17 07:52 Insulin Human Regular (NovoLIN R SUPPLEMENTAL SCALE) 1 Q6H SQ 11/22/16 08:00 01/15/17 01:55 Metoprolol Tartrate (Lopressor Inj) 5 mg Q6H PRN IV PUSH SBP > 170 11/23/16 22:45 01/12/17 03:20 Lactulose (Lactulose Liq) 15 ml BID PO 11/26/16 09:00 01/15/17 07:52 Famotidine (Pepcid) 20 mg BID NG 12/21/16 21:00 01/16/17 08:23 Levetriacetam (Keppra Liq) 1,500 mg Q12HR NG 12/21/16 21:00 01/16/17 08:23 Hyoscyamine Sulfate (Levsin Liq) 0.125 mg Q4H PRN PO secretions 12/28/16 07:15 01/16/17 08:23 Collagenase (Santyl Oint) 1 applic DAILY TOPICAL 01/04/17 11:30 01/16/17 08:28 Carbamazepine (TEGretol LIQ) 200 mg Q12HR PEG 01/06/17 09:00 01/16/17 08:22 Arginine HCl ([place] Powder) 1 pack BID G-TUBE 01/13/17 09:00 01/16/17 08:22 Water (Free Water) 200 ml Q6HR G-TUBE 01/14/17 18:00 01/16/17 11:26 A/P Problem List: (1) CVA (cerebral vascular accident) ICD Code: I63.9 (2) Encephalopathy ICD Code: G93.40 (3) Generalized weakness ICD Code: R53.1 (4) Respiratory failure, acute ICD Code: J96.00 (5) Seizure ICD Code: R56.9 Assessment and Plan Assessment and plan 66-year-old female status post large frontal 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 Patient is unresponsive at baseline, since CVA. Plan to transition patient out of ICU. She will need long -term care placement. Bilateral large frontal CVA Moyamoya Disease Seizure Disorder Neuro following Continue Keppra Continue tegretol Follow for seizure activity Daily Aspirin Bromocriptine Chronic Respiratory Failure Hx of COPD No exacerbations Continue tracheostomy with oxygen. Multilobar pneumonia Tobramycin provided as treatment ID following Dysphagia Jevity 1.5 through PEG tube. Next DVT prophylaxis SCDs Discharge planning Patient will need long-term care facility Aramis Yuan MD Jan 16, 2017 12:43 pm
[2017-01-16] MEDS: RESP: ALBUTEROL 2.5 MG/3 ML NEB (PRN) INH (19:58)
[2017-01-17] VITALS (19 sets, daily range): BP systolic 120–141; BP diastolic 66–93; PULSE 75–104; RESP 8–36; TEMP 96.7–99.1; O2SAT 91–100
[2017-01-17] MEDS: INSULIN NovoLIN REGULAR SUPPLEMENTAL SCALE SQ SCH ×4 (01:44→20:00)
[2017-01-17] MEDS: RESP: ALBUTEROL 2.5 MG/3 ML NEB (PRN) INH (02:21)
[2017-01-17] MEDS: CHLORHEXIDINE GLUCONATE 2 % 1 PACK (2 CLOTHS) TOP SCH (04:00)
[2017-01-17] MEDS: FREE WATER G-TUBE SCH ×3 (05:28→16:59)
[2017-01-17 06:54] LABS: AUTOMATED NEUTROPHIL # 6.2 TH/MM3 (1.8-7.7); BASOPHIL # 0.1 TH/MM3 (0-0.2); BASOPHIL % 0.7 % (0.0-2.0); EOSINOPHIL # 0.5 TH/MM3 (0-0.4); HEMATOCRIT 32.8 % (35.0-46.0); HEMO FLAGS DIFF FINAL; LYMPH % 20.1 % (9.0-44.0); LYMPHOCYTE # 1.8 TH/MM3 (1.0-4.8); MEAN CELL VOLUME 80.6 FL (80.0-100.0); MEAN CORPUSCULAR HEMOGLOBIN 24.5 PG (27.0-34.0); MEAN CORPUSCULAR HGB CONC 30.4 % (32.0-36.0); MONO % 4.5 % (0.0-8.0); NEUT % 68.7 % (16.0-70.0); PLATELET COUNT 347 TH/MM3 (150-450); RED BLOOD COUNT 4.06 MIL/MM3 (4.00-5.30); RED CELL DISTRIBUTION WIDTH 18.3 % (11.6-17.2)
[2017-01-17 07:08] LABS: BICARBONATE 31.1 MEQ/L (21.0-32.0); POTASSIUM 3.8 MEQ/L (3.5-5.1)
[2017-01-17] MEDS: RESP: TOBRAMYCIN SULFATE 80 MG/2 ML NEB NEB SCH ×2 (08:22→19:59)
[2017-01-17] MEDS: JUVEN POWDER 1 PACK G-TUBE SCH ×2 (09:00→21:00)
[2017-01-17] MEDS: CHLORHEXIDINE 0.12% (ORAL KIT) 15 ML CUP MT SCH ×2 (09:12→20:00)
[2017-01-17] MEDS: carBAMazepine SUSP 200 MG/10 ML UDC PEG SCH ×2 (09:12→22:14)
[2017-01-17] MEDS: SENNOSIDES SYRUP 8.8 MG/5 ML CUP PO SCH ×2 (09:12→22:15)
[2017-01-17] MEDS: LACTULOSE SYRUP 20 GM/30 ML CUP PO SCH ×2 (09:12→22:15)
[2017-01-17] MEDS: BROMOCRIPTINE MESYLATE 2.5 MG TAB OG-TUBE SCH ×2 (09:13→22:22)
[2017-01-17] MEDS: levETIRAcetam 500 MG/5 ML UDC NG SCH ×2 (09:13→22:15)
[2017-01-17] MEDS: ATORVASTATIN 40 MG TAB PO SCH (09:13)
[2017-01-17] MEDS: POLYETHYLENE GLYCOL 17 GM PKG PO SCH (09:13)
[2017-01-17] MEDS: DOCUSATE SODIUM 100 MG/10 ML UDC PO SCH ×2 (09:13→22:14)
[2017-01-17] MEDS: FAMOTIDINE 20 MG TAB NG SCH ×2 (09:13→22:15)
[2017-01-17] MEDS: ASPIRIN 81 MG CHEW TAB NG SCH (09:14)
[2017-01-17] MEDS: ACETAMINOPHEN/HYDROcodone 325 MG/5 MG TAB PO PRN (09:16)
[2017-01-17] MEDS: FOLIC ACID 1 MG TAB OG-TUBE SCH (09:17)
--- NOTE | 2017-01-17 11:03 | HHI.PR ---
Subjective Remarks Unchanged compared to yesterday. Patient is nonverbal with minimal responsiveness. Responds to noises. No acute concerns. Objective Vital Signs Date Time Temp Pulse Resp B/P Pulse Ox O2 Delivery O2 Flow Rate FiO2 01/17/17 08:22 100 T-piece 6.00 28 01/17/17 08:00 88 29 121/71 94 01/17/17 08:00 T-Piece 28 01/17/17 07:57 98.3 01/17/17 07:00 89 26 120/88 94 01/17/17 06:00 75 01/17/17 04:00 99 01/17/17 04:00 99.1 99 22 133/74 94 01/17/17 04:00 94 T-Piece 01/17/17 02:00 100 01/17/17 00:00 101 01/17/17 00:00 95 T-Piece 28 01/17/17 00:00 98.8 101 24 135/66 95 01/16/17 22:00 93 01/16/17 20:00 88 01/16/17 20:00 99.1 88 18 112/61 94 01/16/17 20:00 94 T-Piece 28 01/16/17 19:58 95 T-piece 6.00 28 01/16/17 18:00 93 01/16/17 16:00 98.2 89 23 117/69 95 01/16/17 16:00 89 01/16/17 16:00 95 T-Piece 01/16/17 15:00 98 31 115/71 93 01/16/17 14:00 101 01/16/17 14:00 101 26 130/70 95 01/16/17 13:00 105 22 130/79 95 01/16/17 12:00 96 T-Piece 01/16/17 12:00 95 01/16/17 12:00 98.6 95 27 121/69 96 I/O 01/16/17 01/16/17 01/16/17 01/17/17 01/17/17 01/17/17 07:00 15:00 23:00 07:00 15:00 23:00 Intake Total 430 ml 842 ml 429 ml 785 ml Output Total 175 ml 225 ml 275 ml 250 ml Balance 255 ml 617 ml 154 ml 535 ml Intake Oral 0 ml 0 ml 0 ml 0 ml IV Total 0 ml 0 ml 0 ml 0 ml Tube Feeding 430 ml 442 ml 429 ml 385 ml Other 400 ml 400 ml Output Urine Total 175 ml 225 ml 275 ml 250 ml # Bowel Movements 0 1 0 1 Result Diagram: 01/17/17 0606 01/17/17 0606 Procedures 11/24/2016 Percutaneous tracheostomy. Objective Remarks GENERAL: Awake but unresponsive, alert and oriented 0 SKIN: Warm and dry. HEAD/NECK: Normocephalic. Tracheostomy in place. EYES: No scleral icterus. No injection or drainage. NECK: Supple, trachea midline. No JVD or lymphadenopathy. CARDIOVASCULAR: Regular rate and rhythm without murmurs, gallops, or rubs. RESPIRATORY: Breath sounds equal bilaterally. No accessory muscle use. GASTROINTESTINAL: Abdomen soft, non-tender, nondistended. MUSCULOSKELETAL: No cyanosis, or edema. Bedbound. NEURO: Global and extreme neurological deficits. 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 No change compared to yesterday. Patient is unresponsive at baseline, since CVA. Plan to transition patient out of ICU. She will need long-term care placement. Bilateral large frontal CVA Moyamoya Disease Seizure Disorder Neuro following Continue Keppra Continue tegretol Follow for seizure activity Daily Aspirin Bromocriptine Chronic Respiratory Failure Hx of COPD No exacerbations Continue tracheostomy with oxygen. Multilobar pneumonia Tobramycin provided as treatment ID following Dysphagia Jevity 1.5 through PEG tube. Next DVT prophylaxis SCDs Discharge planning Patient will need long-term care facility Aramis Yuan MD Jan 17, 2017 11:03
[2017-01-17] MEDS: SODIUM CHLORIDE 0.9% FLUSH 10 ML FLUSH IV FLUSH SCH ×2 (12:58→22:15)
[2017-01-17] MEDS: COLLAGENASE OINT 30 GM TUBE TOPICAL SCH (16:58)
--- NOTE | 2017-01-17 20:17 | HHI.PR ---
Subjective Remarks 66 YOWF with Rf, s/p trach H/O CVA,Arango Arango disease On trach collar Awake, does't follow commands No fever. Objective Vital Signs Vital Signs Date Time Temp Pulse Resp B/P Pulse Ox O2 Delivery O2 Flow Rate FiO2 01/17/17 20:01 98 T-piece 28 01/17/17 16:00 98.7 96 23 125/67 91 01/17/17 16:00 T-Piece 28 01/17/17 15:00 104 36 141/87 91 01/17/17 14:00 102 23 137/84 92 01/17/17 13:00 97 19 134/78 95 01/17/17 12:00 T-Piece 01/17/17 12:00 97.9 95 25 133/82 95 01/17/17 11:01 97 8 125/93 92 01/17/17 10:01 93 16 121/75 93 01/17/17 09:00 96 24 123/74 95 01/17/17 08:22 100 T-piece 6.00 28 01/17/17 08:00 88 29 121/71 94 01/17/17 08:00 T-Piece 01/17/17 07:57 98.3 01/17/17 07:00 89 26 120/88 94 01/17/17 06:00 75 01/17/17 04:00 99 01/17/17 04:00 99.1 99 22 133/74 94 01/17/17 04:00 94 T-Piece 01/17/17 02:00 100 01/17/17 00:00 101 01/17/17 00:00 95 T-Piece 01/17/17 00:00 98.8 101 24 135/66 95 01/16/17 22:00 93 I/O 01/16/17 01/16/17 01/16/17 01/17/17 01/17/17 01/17/17 07:00 15:00 23:00 07:00 15:00 23:00 Intake Total 430 ml 842 ml 429 ml 785 ml 709 ml Output Total 175 ml 225 ml 275 ml 250 ml 275 ml Balance 255 ml 617 ml 154 ml 535 ml 434 ml Intake Oral 0 ml 0 ml 0 ml 0 ml 0 ml IV Total 0 ml 0 ml 0 ml 0 ml 2 ml Tube Feeding 430 ml 442 ml 429 ml 385 ml 507 ml Other 400 ml 400 ml 200 ml Output Urine Total 175 ml 225 ml 275 ml 250 ml 275 ml # Bowel Movements 0 1 0 1 2 Result Diagram: 01/17/1760501/17/17 06 Objective Remarks GENERAL: MBMN WF, on Trach collar SKIN: Warm and dry. HEAD: Normocephalic. EYES: No scleral icterus. No injection or drainage. NECK: Supple, trachea midline. No JVD or lymphadenopathy. has trach CARDIOVASCULAR: Regular rate and rhythm without murmurs, gallops, or rubs. RESPIRATORY: Breath sounds equal bilaterally. No accessory muscle use. GASTROINTESTINAL: Abdomen soft, non-tender, nondistended. has PEG MUSCULOSKELETAL: No cyanosis, or edema. BACK: Nontender without obvious deformity. No CVA tenderness. A/P Assessment and Plan RF, S/P Trach CVA Arango arango disease CAD COPD SZ disorder PLAN: Aerosol nebs Cont trach collar supplement 02 Cont TF DW RN Trach suction prn. Cont Levsin. Vernon Marx MD Jan 17, 2017 20:17
[2017-01-18] VITALS (9 sets, daily range): BP systolic 123–144; BP diastolic 76–94; PULSE 96–108; RESP 15–22; TEMP 96.4–100.5; O2SAT 92–99
[2017-01-18] MEDS: RESP: ALBUTEROL 2.5 MG/3 ML NEB (PRN) INH (00:50)
[2017-01-18] MEDS: INSULIN NovoLIN REGULAR SUPPLEMENTAL SCALE SQ SCH ×4 (02:00→20:00)
[2017-01-18] MEDS: CHLORHEXIDINE GLUCONATE 2 % 1 PACK (2 CLOTHS) TOP SCH (03:21)
[2017-01-18] MEDS: FREE WATER G-TUBE SCH ×4 (06:00→18:00)
[2017-01-18 07:19] LABS: BICARBONATE 31.9 MEQ/L (21.0-32.0); POTASSIUM 3.8 MEQ/L (3.5-5.1)
[2017-01-18] MEDS: CHLORHEXIDINE 0.12% (ORAL KIT) 15 ML CUP MT SCH ×2 (08:00→20:00)
[2017-01-18] MEDS: RESP: TOBRAMYCIN SULFATE 80 MG/2 ML NEB NEB SCH ×2 (08:45→21:22)
[2017-01-18] MEDS: FOLIC ACID 1 MG TAB OG-TUBE SCH (08:52)
[2017-01-18] MEDS: carBAMazepine SUSP 200 MG/10 ML UDC PEG SCH ×2 (08:52→22:46)
[2017-01-18] MEDS: FAMOTIDINE 20 MG TAB NG SCH ×2 (08:52→22:46)
[2017-01-18] MEDS: ASPIRIN 81 MG CHEW TAB NG SCH (08:52)
[2017-01-18] MEDS: DOCUSATE SODIUM 100 MG/10 ML UDC PO SCH ×2 (08:52→21:00)
[2017-01-18] MEDS: LACTULOSE SYRUP 20 GM/30 ML CUP PO SCH ×2 (08:53→21:00)
[2017-01-18] MEDS: ATORVASTATIN 40 MG TAB PO SCH (08:53)
[2017-01-18] MEDS: levETIRAcetam 500 MG/5 ML UDC NG SCH ×2 (08:54→22:46)
[2017-01-18] MEDS: SENNOSIDES SYRUP 8.8 MG/5 ML CUP PO SCH ×2 (08:54→21:00)
[2017-01-18] MEDS: POLYETHYLENE GLYCOL 17 GM PKG PO SCH (08:54)
[2017-01-18] MEDS: JUVEN POWDER 1 PACK G-TUBE SCH ×2 (09:00→21:00)
[2017-01-18] MEDS: SODIUM CHLORIDE 0.9% FLUSH 10 ML FLUSH IV FLUSH SCH ×2 (09:00→22:47)
--- NOTE | 2017-01-18 09:06 | HHI.PR ---
Subjective Remarks Follow up. Patient is non verbal and does not follow commands. Discussed with RN , she is concerned patient at times drops to a low saturation and then pops back up to the 90's. Seems to be periods of sleep apnea, pulmonology is following. Objective Vitals Vital Signs Date Time Temp Pulse Resp B/P Pulse Ox O2 Delivery O2 Flow Rate FiO2 01/18/17 08:46 99 T-piece 5.00 28 01/18/17 08:46 99 T-piece 5.00 28 01/18/17 06:58 97.4 01/18/17 05:20 T-Piece 28 01/18/17 04:45 100.5 108 15 136/81 98 01/18/17 03:00 T-Piece 35 01/18/17 02:22 100 T-Piece 28 01/18/17 00:51 92 T-piece 28 01/18/17 00:51 92 T-piece 01/18/17 00:00 97.4 105 22 136/85 97 01/17/17 20:30 100 24 124/79 01/17/17 20:01 98 T-piece 28 01/17/17 20:00 96.7 102 28 124/79 96 01/17/17 16:00 98.7 96 23 125/67 91 01/17/17 16:00 T-Piece 01/17/17 15:00 104 36 141/87 91 01/17/17 14:00 102 23 137/84 92 01/17/17 13:00 97 19 134/78 95 01/17/17 12:00 T-Piece 01/17/17 12:00 97.9 95 25 133/82 95 01/17/17 11:01 97 8 125/93 92 01/17/17 10:01 93 16 121/75 93 01/17/17 09:00 96 24 123/74 95 I/O 01/17/17 01/17/17 01/17/17 01/18/17 01/18/17 01/18/17 07:00 15:00 23:00 07:00 15:00 23:00 Intake Total 785 ml 709 ml 1111 ml Output Total 250 ml 925 ml 350 ml Balance 535 ml -216 ml 761 ml Intake Oral 0 ml 0 ml IV Total 0 ml 2 ml Tube Feeding 385 ml 507 ml 711 ml Other 400 ml 200 ml 400 ml Output Urine Total 250 ml 925 ml 350 ml # Bowel Movements 1 2 1 Result Diagram: 01/17/17 0606 01/18/17 0620 Objective Remarks GENERAL: In NAD SKIN: Warm and dry. HEAD: Atraumatic. Normocephalic. EYES: Pupils equal and round. No scleral icterus. ENT: No nasal bleeding or discharge. Mucous membranes pink and moist. NECK: Trachea midline. No JVD. CARDIOVASCULAR: Regular rate and rhythm. RESPIRATORY: No accessory muscle use. Upper bronchial rhonchi, no wheezes. Tracheostomy in place attached to trach collar. GASTROINTESTINAL: Abdomen soft, non-tender, nondistended. Hepatic and splenic margins not palpable. MUSCULOSKELETAL: Extremities without clubbing, cyanosis, or edema. No obvious deformities. NEUROLOGICAL: Obtunded, nonverbal, does not follow commands Procedures 11/24/2016 Percutaneous tracheostomy. 11/18/2016 Moderate encephalopathy with suggestion of left temporal region cortical irritability. No active seizures. Clinical correlation. Medications and IVs Current Medications Medications (Trade) Dose Ordered Sig/Ora Route Start Time Stop Time Status Last Admin (Peridex 0.12% Liq) 15 ml BID@08,20 MT 11/18/16 08:00 01/17/17 09:12 (NS Flush) 2 ml BID IV FLUSH 11/18/16 09:00 01/17/17 22:15 (Tylenol) 650 mg Q6H PRN PO 11/18/16 03:30 01/01/17 16:01 ([place] 5-325 Mg) 1 tab Q4H PRN PO 11/18/16 03:30 01/17/17 09:16 (Morphine Inj) 2 mg Q2H PRN IV 11/18/16 03:30 01/16/17 08:23 (Zofran Inj) 4 mg Q6H PRN IV 11/18/16 03:30 11/26/16 03:20 Miscellaneous Information 1 Q361D XX 11/18/16 03:30 11/18/16 03:30 (Chlorhexidine 2% Cloth) 3 pack Taper DAILY@04 TOP 11/18/16 04:00 11/14/17 03:59 01/17/17 04:00 (Chlorhexidine 2% Cloth) 3 pack UNSCH PRN TOP 11/18/16 03:30 (Aspirin Chew) 324 mg DAILY NG 11/18/16 09:00 01/17/17 09:14 (Lipitor) 40 mg DAILY PO 11/18/16 09:00 01/17/17 09:13 (Parlodel) 2.5 mg Q12HR OG-TUBE 11/18/16 09:00 01/17/17 22:22 Folic Acid 1 mg 1 mg DAILY OG-TUBE 11/18/16 09:00 01/17/17 09:17 Potassium Chloride 100 ml @ 50 mls/hr Q2H PRN IV 11/18/16 13:30 (KCl 20 Meq Premix Inj) 100 ml @ 50 mls/hr Q2H PRN IV 11/18/16 13:30 11/27/16 14:13 Potassium Bicarb/ Potassium Chloride 50 meq 50 meq UNSCH PRN PO 11/18/16 13:30 11/29/16 06:20 Potassium Chloride 100 ml @ 25 mls/hr UNSCH PRN IV 11/18/16 13:30 Potassium Chloride 100 ml @ 50 mls/hr Q2H PRN IV 11/18/16 13:30 11/24/16 06:27 (Magnesium Sulfate Inj/NS Inj) 100 ml @ 50 mls/hr UNSCH PRN IV 11/18/16 13:30 Magnesium Oxide 800 mg 800 mg UNSCH PRN PO 11/18/16 13:30 (Magnesium Sulfate Inj/NS Inj) 100 ml @ 50 mls/hr UNSCH PRN IV 11/18/16 13:30 Potassium Phosphate 2000 mg 2,000 mg Q4H PRN PO 11/18/16 13:30 (Sodium Phosphate Inj/NS 250 ml Inj) 250 ml @ 42 mls/hr UNSCH PRN IV 11/18/16 13:30 Potassium Phosphate 2000 mg 2,000 mg UNSCH PRN PO/TUBE 11/18/16 13:30 (Potassium Phosphate Inj/NS 250 ml Inj) 260 ml @ 42 mls/hr UNSCH PRN IV 11/18/16 13:30 (Senna Liq) 8.8 mg BID PO 11/19/16 21:00 01/17/17 22:15 (Colace Liq) 100 mg Q12HR PO 11/19/16 21:00 01/17/17 22:14 (Miralax) 17 gm DAILY PO 11/21/16 18:00 01/17/17 09:13 (D50w (Vial) Inj) 25 ml UNSCH PRN IV PUSH 11/22/16 08:00 (Glucagon Inj) 1 mg UNSCH PRN OTHER 11/22/16 08:00 (NovoLIN R SUPPLEMENTAL SCALE) 1 Q6H SQ 11/22/16 08:00 01/17/17 01:44 (Lopressor Inj) 5 mg Q6H PRN IV PUSH 11/23/16 22:45 01/12/17 03:20 (Lactulose Liq) 15 ml BID PO 11/26/16 09:00 01/17/17 22:15 (Dulcolax Supp) 10 mg DAILY PRN RECTAL 12/14/16 15:45 (Pepcid) 20 mg BID NG 12/21/16 21:00 01/17/17 22:15 (Keppra Liq) 1,500 mg Q12HR NG 12/21/16 21:00 01/17/17 22:15 (Levsin Liq) 0.125 mg Q4H PRN PO 12/28/16 07:15 01/16/17 08:23 (Santyl Oint) 1 applic DAILY TOPICAL 01/04/17 11:30 01/17/17 16:58 (TEGretol LIQ) 200 mg Q12HR PEG 01/06/17 09:00 01/17/17 22:14 ([place] Powder) 1 pack BID G-TUBE 01/13/17 09:00 01/17/17 09:00 (Free Water) 200 ml Q6HR G-TUBE 01/14/17 18:00 01/18/17 06:00 Date of Insertion: Nov 19, 2016 A/P Problem List: (1) 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 Patient is unresponsive at baseline, since CVA. She will need long-term care placement. Bilateral large frontal CVA, hx of Moyamoya Disease, Seizure Disorder -Neuro following, Dr. Flores -Continue Keppra -Continue tegretol -Seizure precautions -Daily Aspirin -Cont Bromocriptine Chronic Respiratory Failure, possible sleep apnea as well Hx of COPD,No exacerbations -Continue tracheostomy with oxygen. -Followed by pulmonology -Cont Levsin for increased secretions Multilobar pneumonia -Tobramycin nebs provided as treatment until 01/20 -ID has signed off, reconsult if needed Dysphagia, due to CVA -Cont Jevity 1.5 through PEG tube with free water flushes DVT prophylaxis: SCDs, no anticoagulation until cleared by neurology Discharge Planning Will need jail placement, CM attempting to find facility. Leann Flanagan Jan 18, 2017 09:06
[2017-01-18] MEDS: BROMOCRIPTINE MESYLATE 2.5 MG TAB OG-TUBE SCH ×2 (09:33→22:47)
--- NOTE | 2017-01-18 11:12 | HHI.PR ---
Subjective Remarks Follow up for CVA. Patient is non verbal and does not follow commands. Pt's RN (Crystal), reported pt's vitals will "go up and down".She reported oxygenation will drop in to the low 80's and "come right back on up into the 90' s". RN reported suctioning out some "yellowish fluid" for pt's T- tube. Pt was reported to have rhonchus breathing No other issues/concerns noted or reported Objective Vitals Vital Signs Date Time Temp Pulse Resp B/P Pulse Ox O2 Delivery O2 Flow Rate FiO2 01/18/17 08:46 99 T-piece 5.00 28 01/18/17 08:46 99 T-piece 5.00 28 01/18/17 08:00 97.8 102 17 133/86 99 01/18/17 06:58 97.4 01/18/17 05:20 T-Piece 28 01/18/17 04:45 100.5 108 15 136/81 98 01/18/17 03:00 T-Piece 35 01/18/17 02:22 100 T-Piece 28 01/18/17 00:51 92 T-piece 28 01/18/17 00:51 92 T-piece 28 01/18/17 00:00 97.4 105 22 136/85 97 01/17/17 20:30 100 24 124/79 01/17/17 20:01 98 T-piece 28 01/17/17 20:00 96.7 102 28 124/79 96 01/17/17 16:00 98.7 96 23 125/67 91 01/17/17 16:00 T-Piece 28 01/17/17 15:00 104 36 141/87 91 01/17/17 14:00 102 23 137/84 92 01/17/17 13:00 97 19 134/78 95 01/17/17 12:00 T-Piece 28 01/17/17 12:00 97.9 95 25 133/82 95 I/O 01/17/17 01/17/17 01/17/17 01/18/17 01/18/17 01/18/17 06:59 14:59 22:59 06:59 14:59 22:59 Intake Total 785 ml 709 ml 1111 ml Output Total 250 ml 925 ml 350 ml Balance 535 ml -216 ml 761 ml Intake Oral 0 ml 0 ml IV Total 0 ml 2 ml Tube Feeding 385 ml 507 ml 711 ml Other 400 ml 200 ml 400 ml Output Urine Total 250 ml 925 ml 350 ml # Bowel Movements 1 2 1 Result Diagram: 01/17/17 0601/18/17 0620 Objective Remarks GENERAL: Pt encountered laying a bed, T-piece in place, eyes open and closing, in NAD. SKIN: Warm and dry. HEAD: Normocephalic. EYES: No scleral icterus. No injection or drainage. NECK: Supple, t-piece in place. CARDIOVASCULAR: Tachycardic rate and regular rhythm without murmurs, gallops, or rubs. RESPIRATORY: Breath sounds equal bilaterally, bilateral rhonchi present. On respirator. GASTROINTESTINAL: Abdomen soft, non-tender, nondistended. G-tube in place MUSCULOSKELETAL: No cyanosis, or edema. bilateral SCD's in place as were bilateral off loading boots. Neurological: Pt not responding to commands, no spontaneous movement observed except for eye blink. Procedures 11/24/2016 Percutaneous tracheostomy. 11/18/2016 Moderate encephalopathy with suggestion of left temporal region cortical irritability. No active seizures. Clinical correlation. Medications and IVs Current Medications Medications (Trade) Dose Ordered Sig/Ora Route Start Time Stop Time Status Last Admin (Peridex 0.12% Liq) 15 ml BID@08,20 MT 11/18/16 08:00 01/17/17 09:12 (NS Flush) 2 ml BID IV FLUSH 11/18/16 09:00 01/18/17 09:00 (Tylenol) 650 mg Q6H PRN PO 11/18/16 03:30 01/01/17 16:01 ([place] 5-325 Mg) 1 tab Q4H PRN PO 11/18/16 03:30 01/17/17 09:16 (Morphine Inj) 2 mg Q2H PRN IV 11/18/16 03:30 01/16/17 08:23 (Zofran Inj) 4 mg Q6H PRN IV 11/18/16 03:30 11/26/16 03:20 Miscellaneous Information 1 Q361D XX 11/18/16 03:30 11/18/16 03:30 (Chlorhexidine 2% Cloth) 3 pack Taper DAILY@04 TOP 11/18/16 04:00 11/14/17 03:59 01/17/17 04:00 (Chlorhexidine 2% Cloth) 3 pack UNSCH PRN TOP 11/18/16 03:30 (Aspirin Chew) 324 mg DAILY NG 11/18/16 09:00 01/18/17 08:52 (Lipitor) 40 mg DAILY PO 11/18/16 09:00 01/18/17 08:53 (Parlodel) 2.5 mg Q12HR OG-TUBE 11/18/16 09:00 01/18/17 09:33 Folic Acid 1 mg 1 mg DAILY OG-TUBE 11/18/16 09:00 01/18/17 08:52 Potassium Chloride 100 ml @ 50 mls/hr Q2H PRN IV 11/18/16 13:30 (KCl 20 Meq Premix Inj) 100 ml @ 50 mls/hr Q2H PRN IV 11/18/16 13:30 11/27/16 14:13 Potassium Bicarb/ Potassium Chloride 50 meq 50 meq UNSCH PRN PO 11/18/16 13:30 11/29/16 06:20 Potassium Chloride 100 ml @ 25 mls/hr UNSCH PRN IV 11/18/16 13:30 Potassium Chloride 100 ml @ 50 mls/hr Q2H PRN IV 11/18/16 13:30 11/24/16 06:27 (Magnesium Sulfate Inj/NS Inj) 100 ml @ 50 mls/hr UNSCH PRN IV 11/18/16 13:30 Magnesium Oxide 800 mg 800 mg UNSCH PRN PO 11/18/16 13:30 (Magnesium Sulfate Inj/NS Inj) 100 ml @ 50 mls/hr UNSCH PRN IV 11/18/16 13:30 Potassium Phosphate 2000 mg 2,000 mg Q4H PRN PO 11/18/16 13:30 (Sodium Phosphate Inj/NS 250 ml Inj) 250 ml @ 42 mls/hr UNSCH PRN IV 11/18/16 13:30 Potassium Phosphate 2000 mg 2,000 mg UNSCH PRN PO/TUBE 11/18/16 13:30 (Potassium Phosphate Inj/NS 250 ml Inj) 260 ml @ 42 mls/hr UNSCH PRN IV 11/18/16 13:30 (Senna Liq) 8.8 mg BID PO 11/19/16 21:00 01/18/17 08:54 (Colace Liq) 100 mg Q12HR PO 11/19/16 21:00 01/18/17 08:52 (Miralax) 17 gm DAILY PO 11/21/16 18:00 01/18/17 08:54 (D50w (Vial) Inj) 25 ml UNSCH PRN IV PUSH 11/22/16 08:00 (Glucagon Inj) 1 mg UNSCH PRN OTHER 11/22/16 08:00 (NovoLIN R SUPPLEMENTAL SCALE) 1 Q6H SQ 11/22/16 08:00 01/18/17 09:54 (Lopressor Inj) 5 mg Q6H PRN IV PUSH 11/23/16 22:45 01/12/17 03:20 (Lactulose Liq) 15 ml BID PO 11/26/16 09:00 01/18/17 08:53 (Dulcolax Supp) 10 mg DAILY PRN RECTAL 12/14/16 15:45 (Pepcid) 20 mg BID NG 12/21/16 21:00 01/18/17 08:52 (Keppra Liq) 1,500 mg Q12HR NG 12/21/16 21:00 01/18/17 08:54 (Levsin Liq) 0.125 mg Q4H PRN PO 12/28/16 07:15 01/16/17 08:23 (Santyl Oint) 1 applic DAILY TOPICAL 01/04/17 11:30 01/17/17 16:58 (TEGretol LIQ) 200 mg Q12HR PEG 01/06/17 09:00 01/18/17 08:52 ([place] Powder) 1 pack BID G-TUBE 01/13/17 09:00 01/18/17 09:00 (Free Water) 200 ml Q6HR G-TUBE 01/14/17 18:00 01/18/17 06:00 Urinary Catheter: Yes Brown insert reason: Prolonged Immobilization Date of Insertion: Nov 19, 2016 Vascular Central Line Catheter: No A/P Problem List: (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 She was was admitted to [facility] emergency department 11/04/16 with difficulty getting her thoughts together. She was found to have multifocal nonhemorrhagic infarcts in left frontal and parietal regions, right frontal lobe and history of moyamoya disease. She was initially awake and following commands with weakness of RLE and some aphasia. She was transferred to [facility] where he had an cerebral angiogram consistent with moyamoya. There were plans to perform extracranial/intracranial bypass. However she had a seizure and ended up being intubated for status either 4/4 or 4/5.. She was found to have a new right frontal infarct area and she was started on Dilantin and Keppra and it was felt that she would not be a candidate for intervention. She has been intubated 9-10 days and apparently she has been tolerating C Pap trials to some extent but mental status prevents extubation. Treating team was discussing with family trach/PEG. Apparently family requested transfer back to [place] because they live locally here and wanted her closer to home. Patient remained under critical care medicine until 12/24/2016. Bilateral large frontal CVA Moyamoya Disease Seizure Disorder Neuro following Continue Keppra Continue tegretol Follow for seizure activity Daily Aspirin Bromocriptine Chronic Respiratory Failure Hx of COPD No exacerbations Continue tracheostomy with oxygen. Multilobar pneumonia Tobramycin provided as treatment ID following Dysphagia Jevity 1.5 through PEG tube. Next DVT prophylaxis SCDs Case discussed with pt's RN (Crystal) and Dr. Yuan Discharge Planning Patient will need long-term care facility Trell Torres Jr. Jan 18, 2017 11:12
[2017-01-18] MEDS: COLLAGENASE OINT 30 GM TUBE TOPICAL SCH (18:47)
--- NOTE | 2017-01-18 20:10 | HHI.PR ---
Subjective Remarks 66 YOWF with Rf, s/p trach H/O CVA,Arango Arango disease On trach collar Thin tarch secretions No fever. Objective Vital Signs Vital Signs Date Time Temp Pulse Resp B/P Pulse Ox O2 Delivery O2 Flow Rate FiO2 01/18/17 16:00 96.4 97 18 144/94 98 01/18/17 12:00 98.0 98 17 123/83 96 01/18/17 08:46 99 T-piece 5.00 28 01/18/17 08:46 99 T-piece 5.00 28 01/18/17 08:00 97.8 102 17 133/86 99 01/18/17 06:58 97.4 01/18/17 05:20 T-Piece 28 01/18/17 04:45 100.5 108 15 136/81 98 01/18/17 03:00 T-Piece 35 01/18/17 02:22 100 T-Piece 28 01/18/17 00:51 92 T-piece 28 01/18/17 00:51 92 T-piece 28 01/18/17 00:00 97.4 105 22 136/85 97 01/17/17 20:30 100 24 124/79 I/O 01/17/17 01/17/17 01/17/17 01/18/17 01/18/17 01/18/17 07:00 15:00 23:00 07:00 15:00 23:00 Intake Total 785 ml 709 ml 1111 ml Output Total 250 ml 925 ml 350 ml 550 ml Balance 535 ml -216 ml 761 ml -550 ml Intake Oral 0 ml 0 ml IV Total 0 ml 2 ml Tube Feeding 385 ml 507 ml 711 ml Other 400 ml 200 ml 400 ml Output Urine Total 250 ml 925 ml 350 ml 550 ml # Bowel Movements 1 2 1 2 Result Diagram: 01/17/17 0606 01/18/17 0620 Objective Remarks GENERAL: MBMN WF, on Trach collar SKIN: Warm and dry. HEAD: Normocephalic. EYES: No scleral icterus. No injection or drainage. NECK: Supple, trachea midline. No JVD or lymphadenopathy. has trach CARDIOVASCULAR: Regular rate and rhythm without murmurs, gallops, or rubs. RESPIRATORY: Breath sounds equal bilaterally. No accessory muscle use. GASTROINTESTINAL: Abdomen soft, non-tender, nondistended. has PEG MUSCULOSKELETAL: No cyanosis, or edema. BACK: Nontender without obvious deformity. No CVA tenderness. A/P Assessment and Plan RF, S/P Trach CVA Arango arango disease CAD COPD SZ disorder PLAN: Aerosol nebs Cont trach collar supplement 02 Cont TF DW RN Trach suction prn. Cont Levsin. Vernon Marx MD Jan 18, 2017 20:10
[2017-01-19] VITALS (9 sets, daily range): BP systolic 127–151; BP diastolic 74–91; PULSE 94–106; RESP 17–20; TEMP 96.2–98.8; O2SAT 94–100
[2017-01-19] MEDS: INSULIN NovoLIN REGULAR SUPPLEMENTAL SCALE SQ SCH ×4 (02:44→20:00)
[2017-01-19] MEDS: CHLORHEXIDINE GLUCONATE 2 % 1 PACK (2 CLOTHS) TOP SCH (04:00)
[2017-01-19] MEDS: FREE WATER G-TUBE SCH ×4 (06:00→17:23)
[2017-01-19] MEDS: RESP: TOBRAMYCIN SULFATE 80 MG/2 ML NEB NEB SCH ×2 (08:55→20:00)
[2017-01-19] MEDS: LACTULOSE SYRUP 20 GM/30 ML CUP PO SCH (09:00)
[2017-01-19] MEDS: DOCUSATE SODIUM 100 MG/10 ML UDC PO SCH (09:00)
[2017-01-19] MEDS: SENNOSIDES SYRUP 8.8 MG/5 ML CUP PO SCH (09:00)
[2017-01-19] MEDS: JUVEN POWDER 1 PACK G-TUBE SCH ×2 (09:13→21:00)
[2017-01-19] MEDS: CHLORHEXIDINE 0.12% (ORAL KIT) 15 ML CUP MT SCH ×2 (09:13→20:00)
[2017-01-19] MEDS: POLYETHYLENE GLYCOL 17 GM PKG PO SCH (09:13)
[2017-01-19] MEDS: BROMOCRIPTINE MESYLATE 2.5 MG TAB OG-TUBE SCH (09:14)
[2017-01-19] MEDS: ATORVASTATIN 40 MG TAB PO SCH (09:14)
[2017-01-19] MEDS: FAMOTIDINE 20 MG TAB NG SCH (09:14)
[2017-01-19] MEDS: FOLIC ACID 1 MG TAB OG-TUBE SCH (09:14)
[2017-01-19] MEDS: ASPIRIN 81 MG CHEW TAB NG SCH (09:14)
[2017-01-19] MEDS: SODIUM CHLORIDE 0.9% FLUSH 10 ML FLUSH IV FLUSH SCH (09:15)
[2017-01-19] MEDS: carBAMazepine SUSP 200 MG/10 ML UDC PEG SCH (09:15)
[2017-01-19] MEDS: COLLAGENASE OINT 30 GM TUBE TOPICAL SCH (09:15)
[2017-01-19] MEDS: levETIRAcetam 500 MG/5 ML UDC NG SCH (09:18)
--- NOTE | 2017-01-19 12:50 | HHI.PR ---
Subjective Remarks Follow up for CVA. Patient is non verbal and does not follow commands. Pt laying a bed, eyes closed, not responding to commands, NAD. Per pt's RN (Dianne), no acute changes overnight. Per Rn pt is having diarrhea ( 3 episodes on day shift and two overnight). Rn stated events may be related to pt's stool softener No other issues/concerns noted or reported Objective Vitals Vital Signs Date Time Temp Pulse Resp B/P Pulse Ox O2 Delivery O2 Flow Rate FiO2 01/19/17 09:30 98 T-Piece 28 01/19/17 08:55 99 T-piece 5.00 28 01/19/17 08:16 96 01/19/17 08:00 101 17 144/91 97 01/19/17 05:17 97.8 104 18 151/88 96 01/19/17 05:11 95 T-Piece 28 01/19/17 00:17 97.7 106 19 134/90 99 01/18/17 21:29 98.0 96 19 128/76 99 01/18/17 21:29 99 T-piece 5.00 28 01/18/17 16:00 96.4 97 18 144/94 98 I/O 01/18/17 01/18/17 01/18/17 01/19/17 01/19/17 01/19/17 07:00 15:00 23:00 07:00 15:00 23:00 Intake Total 1111 ml 200 ml 1520 ml Output Total 350 ml 550 ml 600 ml Balance 761 ml -550 ml -400 ml 1520 ml Tube Feeding 711 ml 720 ml Tube Irrigant 400 ml Other 400 ml 200 ml 400 ml Output Urine Total 350 ml 550 ml 600 ml # Bowel Movements 1 2 2 Result Diagram: 01/17/17 0606 01/18/17 0620 Imaging No new imaging studies ordered, pending, or resulted over the past 24 hours. Objective Remarks GENERAL: Pt encountered laying a bed, T-piece in place, eyes closed, in NAD. SKIN: Warm and dry. HEAD: Normocephalic. EYES: No scleral icterus. No injection or drainage. Pt with eyes closed during exam, required lids to be opened in order to inspect. NECK: Supple, t-piece in place. CARDIOVASCULAR: Tachycardic rate and regular rhythm without murmurs, gallops, or rubs. RESPIRATORY: Breath sounds equal bilaterally, without rhonchi or wheezes. On respirator. sats dropped to 88 at one pint and quickly recovered to low 90's GASTROINTESTINAL: Abdomen soft, non-tender, nondistended. G-tube in place MUSCULOSKELETAL: No cyanosis, or edema. bilateral SCD's in place as were bilateral off loading boots. Neurological: Pt not responding to commands, no spontaneous movement observed Procedures 11/24/2016 Percutaneous tracheostomy. 11/18/2016 Moderate encephalopathy with suggestion of left temporal region cortical irritability. No active seizures. Clinical correlation. Medications and IVs Current Medications Medications (Trade) Dose Ordered Sig/Ora Route Start Time Stop Time Status Last Admin (Peridex 0.12% Liq) 15 ml BID@08,20 MT 11/18/16 08:00 01/19/17 09:13 (NS Flush) 2 ml BID IV FLUSH 11/18/16 09:00 01/19/17 09:15 (Tylenol) 650 mg Q6H PRN PO 11/18/16 03:30 01/01/17 16:01 ([place] 5-325 Mg) 1 tab Q4H PRN PO 11/18/16 03:30 01/17/17 09:16 (Morphine Inj) 2 mg Q2H PRN IV 11/18/16 03:30 01/16/17 08:23 (Zofran Inj) 4 mg Q6H PRN IV 11/18/16 03:30 11/26/16 03:20 Miscellaneous Information 1 Q361D XX 11/18/16 03:30 11/18/16 03:30 (Chlorhexidine 2% Cloth) Taper DAILY@04 TOP 11/18/16 04:00 11/14/17 03:59 01/17/17 04:00 (Chlorhexidine 2% Cloth) 3 pack UNSCH PRN TOP 11/18/16 03:30 (Aspirin Chew) 324 mg DAILY NG 11/18/16 09:00 01/19/17 09:14 (Lipitor) 40 mg DAILY PO 11/18/16 09:00 01/19/17 09:14 (Parlodel) 2.5 mg Q12HR OG-TUBE 11/18/16 09:00 01/19/17 09:14 (Folate) 1 mg DAILY OG-TUBE 11/18/16:00 01/19/17 09:14 (Senna Liq) 8.8 mg BID PO 11/19/16 21:00 01/18/17 08:54 (Miralax) 17 gm DAILY PO 11/21/16 18:00 01/18/17 08:54 (D50w (Vial) Inj) 25 ml UNSCH PRN IV PUSH 11/22/16 08:00 (Glucagon Inj) 1 mg UNSCH PRN OTHER 11/22/16 08:00 (NovoLIN R SUPPLEMENTAL SCALE) 1 Q6H SQ 11/22/16 08:00 01/19/17 02:44 (Lopressor Inj) 5 mg Q6H PRN IV PUSH 11/23/16 22:45 01/12/17 03:20 (Lactulose Liq) 15 ml BID PO 11/26/16 09:00 01/18/17 08:53 (Dulcolax Supp) 10 mg DAILY PRN RECTAL 12/14/16 15:45 (Pepcid) 20 mg BID NG 12/21/16 21:00 01/19/17 09:14 (Keppra Liq) 1,500 mg Q12HR NG 12/21/16 21:00 01/19/17 09:18 (Levsin Liq) 0.125 mg Q4H PRN PO 12/28/16 07:15 01/16/17 08:23 (Santyl Oint) 1 applic DAILY TOPICAL 01/04/17 11:30 01/19/17 09:15 (TEGretol LIQ) 200 mg Q12HR PEG 01/06/17 09:00 01/19/17 09:15 (Corby Powder) 1 pack BID G-TUBE 01/13/17 09:00 01/19/17 09:13 (Free Water) 200 ml Q6HR G-TUBE 01/14/17 18:00 01/19/17 12:02 Urinary Catheter: Yes Brown insert reason: Prolonged Immobilization Date of Insertion: Nov 19, 2016 A/P Problem List: (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 She was was admitted to [facility] emergency department 11/04/16 with difficulty getting her thoughts together. She was found to have multifocal nonhemorrhagic infarcts in left frontal and parietal regions, right frontal lobe and history of moyamoya disease. She was initially awake and following commands with weakness of RLE and some aphasia. She was transferred to [facility] where he had an cerebral angiogram consistent with moyamoya. There were plans to perform extracranial/intracranial bypass. However she had a seizure and ended up being intubated for status either 4/4 or 4/5.. She was found to have a new right frontal infarct area and she was started on Dilantin and Keppra and it was felt that she would not be a candidate for intervention. She has been intubated 9-10 days and apparently she has been tolerating C Pap trials to some extent but mental status prevents extubation. Treating team was discussing with family trach/PEG. Apparently family requested transfer back to [place] because they live locally here and wanted her closer to home. Patient remained under critical care medicine until 12/24/2016. Bilateral large frontal CVA Moyamoya Disease Seizure Disorder -Neuro following -Continue Keppra -Continue tegretol -Follow for seizure activity -Daily Aspirin -Bromocriptine Chronic Respiratory Failure Hx of COPD -No exacerbations -Continue tracheostomy with oxygen. Multilobar pneumonia -Tobramycin provided as treatment -ID following Dysphagia -Jevity 1.5 through PEG tube. Next Diarrhea -Hold stool softener -labs for today and in am -current antibiotic is tobramycin 80 mg q 12 hrs NEB. Sacral/Coccyx wound -Specialty bed ordered -Wound care following DVT prophylaxis -SCDs Case discussed with pt's RN (Dianne) and Dr. Yuan Discharge Planning Patient will need long-term care facility Trell Torres Jr. Jan 19, 2017 12:50
[2017-01-19 16:05] LABS: BASOPHIL # 0.1 TH/MM3 (0-0.2); BASOPHIL % 0.7 % (0.0-2.0); EOSINOPHIL # 0.5 TH/MM3 (0-0.4); EOSINOPHIL % 4.5 % (0.0-4.0); HEMATOCRIT 35.2 % (35.0-46.0); HEMO FLAGS DIFF FINAL; LYMPHOCYTE # 2.5 TH/MM3 (1.0-4.8); MEAN CORPUSCULAR HEMOGLOBIN 24.6 PG (27.0-34.0); MEAN CORPUSCULAR HGB CONC 30.8 % (32.0-36.0); MONO % 4.3 % (0.0-8.0); NEUT % 66.5 % (16.0-70.0); PLATELET COUNT 421 TH/MM3 (150-450); RED CELL DISTRIBUTION WIDTH 19.4 % (11.6-17.2); WHITE BLOOD COUNT 10.5 TH/MM3 (4.0-11.0)
[2017-01-19 16:19] LABS: ALT (GPT) 27 U/L (10-53); ANION GAP 6 MEQ/L (5-15); AST (GOT) 22 U/L (15-37); BICARBONATE 29.9 MEQ/L (21.0-32.0); BLOOD UREA NITROGEN 30 MG/DL (7-18); CHLORIDE 107 MEQ/L (98-107); GLOMERULAR FILTRATION RATE 181 ML/MIN (>89); POTASSIUM 4.1 MEQ/L (3.5-5.1); SODIUM (NA) 143 MEQ/L (136-145)
[2017-01-19 16:22] LABS: ALKALINE PHOSPHATASE 113 U/L (45-117); TOTAL BILIRUBIN ADULT 0.3 MG/DL (0.2-1.0)
--- NOTE | 2017-01-19 17:29 | HHI.PR ---
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 Has lot of trach secretions Objective Vital Signs Vital Signs Date Time Temp Pulse Resp B/P Pulse Ox O2 Delivery O2 Flow Rate FiO2 01/19/17 16:00 96.2 97 17 129/81 100 01/19/17 12:00 98.8 94 18 127/74 100 01/19/17 09:30 98 T-Piece 28 01/19/17 08:55 99 T-piece 5.00 28 01/19/17 08:16 96 01/19/17 08:00 101 17 144/91 97 01/19/17 05:17 97.8 104 18 151/88 96 01/19/17 05:11 95 T-Piece 28 01/19/17 00:17 97.7 106 19 134/90 99 01/18/17 21:29 98.0 96 19 128/76 99 01/18/17 21:29 99 T-piece 5.00 28 I/O 01/18/17 01/18/17 01/18/17 01/19/17 01/19/17 01/19/17 07:00 15:00 23:00 07:00 15:00 23:00 Intake Total 1111 ml 200 ml 1620 ml Output Total 350 ml 550 ml 600 ml 350 ml Balance 761 ml -550 ml -400 ml 1270 ml Tube Feeding 711 ml 720 ml Tube Irrigant 500 ml Other 400 ml 200 ml 400 ml Output Urine Total 350 ml 550 ml 600 ml 350 ml # Bowel Movements 1 2 2 1 Result Diagram: 01/19/17 1548 01/19/17 1548 Objective Remarks GENERAL: MBMN WF, on Trach collar SKIN: Warm and dry. HEAD: Normocephalic. EYES: No scleral icterus. No injection or drainage. NECK: Supple, trachea midline. No JVD or lymphadenopathy. has trach CARDIOVASCULAR: Regular rate and rhythm without murmurs, gallops, or rubs. RESPIRATORY: Breath sounds equal bilaterally. No accessory muscle use. GASTROINTESTINAL: Abdomen soft, non-tender, nondistended. has PEG MUSCULOSKELETAL: No cyanosis, or edema. BACK: Nontender without obvious deformity. No CVA tenderness. A/P Assessment and Plan RF, S/P Trach CVA Arango arango disease CAD COPD SZ disorder PLAN: Aerosol nebs Cont trach collar supplement 02 Cont TF DW RN Trach suction prn. renew Levsin 0.125 mg q 8 hrs Vernon Marx MD Jan 19, 2017 17:29
[2017-01-20] VITALS (8 sets, daily range): BP systolic 120–156; BP diastolic 74–90; PULSE 93–108; RESP 20–30; TEMP 97–98.9; O2SAT 95–97
[2017-01-20] MEDS: carBAMazepine SUSP 200 MG/10 ML UDC PEG SCH ×3 (00:33→21:37)
[2017-01-20] MEDS: SODIUM CHLORIDE 0.9% FLUSH 10 ML FLUSH IV FLUSH SCH ×3 (00:33→21:38)
[2017-01-20] MEDS: HYOSCYAMINE 0.125 MG TAB PO SCH ×4 (00:34→21:38)
[2017-01-20] MEDS: FAMOTIDINE 20 MG TAB NG SCH ×3 (00:34→21:38)
[2017-01-20] MEDS: BROMOCRIPTINE MESYLATE 2.5 MG TAB OG-TUBE SCH ×3 (00:34→21:38)
[2017-01-20] MEDS: levETIRAcetam 500 MG/5 ML UDC NG SCH ×3 (00:34→21:37)
[2017-01-20] MEDS: LACTULOSE SYRUP 20 GM/30 ML CUP PO SCH ×3 (00:34→21:54)
[2017-01-20] MEDS: INSULIN NovoLIN REGULAR SUPPLEMENTAL SCALE SQ SCH ×4 (01:08→21:43)
[2017-01-20] MEDS: CHLORHEXIDINE GLUCONATE 2 % 1 PACK (2 CLOTHS) TOP SCH (04:00)
[2017-01-20] MEDS: FREE WATER G-TUBE SCH ×4 (06:00→16:02)
[2017-01-20] MEDS: CHLORHEXIDINE 0.12% (ORAL KIT) 15 ML CUP MT SCH ×2 (08:00→20:00)
[2017-01-20] MEDS: POLYETHYLENE GLYCOL 17 GM PKG PO SCH ×2 (08:59→16:02)
[2017-01-20] MEDS: ATORVASTATIN 40 MG TAB PO SCH (09:00)
[2017-01-20] MEDS: ASPIRIN 81 MG CHEW TAB NG SCH (09:00)
[2017-01-20] MEDS: FOLIC ACID 1 MG TAB OG-TUBE SCH (09:00)
[2017-01-20] MEDS: JUVEN POWDER 1 PACK G-TUBE SCH ×2 (09:00→21:00)
[2017-01-20] MEDS: COLLAGENASE OINT 30 GM TUBE TOPICAL SCH (09:01)
[2017-01-20] MEDS: RESP: TOBRAMYCIN SULFATE 80 MG/2 ML NEB NEB SCH ×2 (09:13→19:01)
[2017-01-20 09:32] LABS: BICARBONATE 25.3 MEQ/L (21.0-32.0)
[2017-01-20 09:35] LABS: POTASSIUM 4.1 MEQ/L (3.5-5.1)
--- NOTE | 2017-01-20 13:16 | HHI.PR ---
Subjective Remarks Follow up for CVA. Patient is non verbal and does not follow commands. Pt laying a bed, eyes closed, not responding to commands, NAD. Per pt's RN (Aug), no acute changes overnight. Per RN pt continues having diarrhea: 1 episode this shift so far. No other issues/concerns noted or reported. VSS stable. Objective Vitals Vital Signs Date Time Temp Pulse Resp B/P Pulse Ox O2 Delivery O2 Flow Rate FiO2 01/20/17 11:25 97.7 99 26 131/83 95 01/20/17 08:20 97.0 94 24 156/90 96 01/20/17 07:15 99 T-Piece 28 01/20/17 07:15 101 01/20/17 04:00 97.6 98 20 133/85 95 01/20/17 00:00 97.3 108 20 140/86 95 01/19/17 21:10 92 Trach Collar 6.00 28 T-Piece 01/19/17 20:00 97.7 95 20 136/76 94 01/19/17 20:00 102 01/19/17 18:29 103 01/19/17 16:00 96.2 97 17 129/81 100 I/O 01/19/17 01/19/17 01/19/17 01/20/17 01/20/17 01/20/17 07:00 15:00 23:00 07:00 15:00 23:00 Intake Total 200 ml 1620 ml 800 ml 943 ml Output Total 600 ml 350 ml 325 ml 550 ml Balance -400 ml 1270 ml -325 ml 250 ml 943 ml Tube Feeding 720 ml 600 ml 943 ml Tube Irrigant 500 ml 200 ml Other 200 ml 400 ml Output Urine Total 600 ml 350 ml 325 ml 550 ml # Bowel Movements 2 1 0 1 Result Diagram: 01/19/17 1548 01/20/17 0840 Imaging No new imaging ordered, pending or reported within the past 24 hours. Objective Remarks GENERAL: Pt encountered laying a bed, T-piece in place, eyes closed for much of visit yet she would spontaneously open for brief periods of time, in NAD. SKIN: Warm and dry. HEAD: Normocephalic. EYES: No scleral icterus. No injection or drainage. NECK: Supple, t-piece in place. CARDIOVASCULAR: Tachycardic rate and regular rhythm without murmurs, gallops, or rubs. RESPIRATORY: Breath sounds equal bilaterally, without rhonchi or wheezes. On respirator. GASTROINTESTINAL: Abdomen soft, non-tender, nondistended. G-tube in place MUSCULOSKELETAL: No cyanosis, or edema. bilateral SCD's in place as were bilateral off loading boots. Neurological: Pt not responding to commands, no spontaneous movement observed Procedures 11/24/2016 Percutaneous tracheostomy. 11/18/2016 Moderate encephalopathy with suggestion of left temporal region cortical irritability. No active seizures. Clinical correlation. Medications and IVs Current Medications Medications (Trade) Dose Ordered Sig/Ora Route Start Time Stop Time Status Last Admin (Peridex 0.12% Liq) 15 ml BID@08,20 MT 11/18/16 08:00 01/19/17 09:13 (NS Flush) 2 ml BID IV FLUSH 11/18/16 09:00 01/20/17 09:00 (Tylenol) 650 mg Q6H PRN PO 11/18/16 03:30 01/01/17 16:01 ([place] 5-325 Mg) 1 tab Q4H PRN PO 11/18/16 03:30 01/17/17 09:16 (Morphine Inj) 2 mg Q2H PRN IV 11/18/16 03:30 01/16/17 08:23 (Zofran Inj) 4 mg Q6H PRN IV 11/18/16 03:30 11/26/16 03:20 Miscellaneous Information 1 Q361D XX 11/18/16 03:30 11/18/16 03:30 (Chlorhexidine 2% Cloth) Taper DAILY@04 TOP 11/18/16 04:00 11/14/17 03:59 01/17/17 04:00 (Chlorhexidine 2% Cloth) 3 pack UNSCH PRN TOP 11/18/16 03:30 (Aspirin Chew) 324 mg DAILY NG 11/18/16 09:00 01/20/17 09:00 (Lipitor) 40 mg DAILY PO 11/18/16 09:00 01/20/17 09:00 (Parlodel) 2.5 mg Q12HR OG-TUBE 11/18/16 09:00 01/20/17 11:33 (Folate) 1 mg DAILY OG-TUBE 11/18/16 09:00 01/20/17 09:00 (Senna Liq) 8.8 mg BID PO 11/19/16 21:00 Hold 01/18/17 08:54 (Miralax) 17 gm DAILY PO 11/21/16 18:00 01/18/17 08:54 (D50w (Vial) Inj) 25 ml UNSCH PRN IV PUSH 11/22/16 08:00 (Glucagon Inj) 1 mg UNSCH PRN OTHER 11/22/16 08:00 (NovoLIN R SUPPLEMENTAL SCALE) 1 Q6H SQ 11/22/16 08:00 01/20/17 01:08 (Lopressor Inj) 5 mg Q6H PRN IV PUSH 11/23/16 22:45 01/12/17 03:20 (Lactulose Liq) 15 ml BID PO 11/26/16 09:00 01/20/17 00:34 (Dulcolax Supp) 10 mg DAILY PRN RECTAL 12/14/16 15:45 (Pepcid) 20 mg BID NG 12/21/16 21:00 01/20/17 09:00 (Keppra Liq) 1,500 mg Q12HR NG 12/21/16 21:00 01/20/17 08:59 (Levsin Liq) 0.125 mg Q4H PRN PO 12/28/16 07:15 01/16/17 08:23 (Santyl Oint) 1 applic DAILY TOPICAL 01/04/17 11:30 01/20/17 09:01 (TEGretol LIQ) 200 mg Q12HR PEG 01/06/17 09:00 01/20/17 08:59 (Corby Powder) 1 pack BID G-TUBE 01/13/17 09:00 01/20/17 09:00 (Free Water) 200 ml Q6HR G-TUBE 01/14/17 18:00 01/20/17 11:33 (Levsin) 0.125 mg Q8HR PO 01/19/17 22:00 01/20/17 06:12 Urinary Catheter: Yes Assessment to: Continue Brown insert reason: Prolonged Immobilization Date of Insertion: Nov 19, 2016 A/P Problem List: (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 She was was admitted to [facility] emergency department 11/04/16 with difficulty getting her thoughts together. She was found to have multifocal nonhemorrhagic infarcts in left frontal and parietal regions, right frontal lobe and history of moyamoya disease. She was initially awake and following commands with weakness of RLE and some aphasia. She was transferred to [facility] where he had an cerebral angiogram consistent with moyamoya. There were plans to perform extracranial/intracranial bypass. However she had a seizure and ended up being intubated for status either 4/4 or 4/5.. She was found to have a new right frontal infarct area and she was started on Dilantin and Keppra and it was felt that she would not be a candidate for intervention. She has been intubated 9-10 days and apparently she has been tolerating C Pap trials to some extent but mental status prevents extubation. Treating team was discussing with family trach/PEG. Apparently family requested transfer back to [place] because they live locally here and wanted her closer to home. Patient remained under critical care medicine until 12/24/2016. Bilateral large frontal CVA Moyamoya Disease Seizure Disorder -Neuro following -Continue Keppra -Continue tegretol -Follow for seizure activity -Daily Aspirin -Bromocriptine Chronic Respiratory Failure Hx of COPD -No exacerbations -Continue tracheostomy with oxygen. Multilobar pneumonia -Tobramycin provided as treatment -ID following Dysphagia -Jevity 1.5 through PEG tube. Next Diarrhea -Hold stool softener -labs for today and in am -current antibiotic is tobramycin 80 mg q 12 hrs NEB. -Pt not dehydrated. C. Diff assay ordered, results pending. Sacral/Coccyx wound -Specialty bed ordered -Wound care following DVT prophylaxis -SCDs Case discussed with pt's RN (Dianne) and Dr. Yuan Discharge Planning Patient will need long-term care facility Trell Torres Jr. PA Jan 20, 2017 13:16
[2017-01-20 17:52] LABS: C. DIFF EPI 027 PRESUMPTIVE NEGATIVE (NEGATIVE)
[2017-01-20] MEDS: RESP: ALBUTEROL 2.5 MG/3 ML NEB (PRN) INH (19:00)
--- NOTE | 2017-01-20 19:29 | HHI.PR ---
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 Has lot of trach secretions Opens eyes , looks around Does't track Objective Vital Signs Vital Signs Date Time Temp Pulse Resp B/P Pulse Ox O2 Delivery O2 Flow Rate FiO2 01/20/17 19:01 97 T-piece 6.00 28 01/20/17 19:01 97 T-piece 6.00 28 01/20/17 16:35 98.9 93 28 120/74 97 01/20/17 11:25 97.7 99 28 131/83 95 01/20/17 08:20 97.0 94 24 156/90 96 01/20/17 07:15 99 T-Piece 28 01/20/17 07:15 101 01/20/17 04:00 97.6 98 20 133/85 95 01/20/17 00:00 97.3 108 20 140/86 95 01/19/17 21:10 92 Trach Collar 6.00 28 T-Piece 01/19/17 20:00 97.7 95 20 136/76 94 01/19/17 20:00 102 I/O 01/19/17 01/19/17 01/19/17 01/20/17 01/20/17 01/20/17 07:00 15:00 23:00 07:00 15:00 23:00 Intake Total 200 ml 1620 ml 800 ml 943 ml Output Total 600 ml 350 ml 325 ml 550 ml 300 ml Balance -400 ml 1270 ml -325 ml 250 ml 943 ml -300 ml Tube Feeding 720 ml 600 ml 943 ml Tube Irrigant 500 ml 200 ml Other 200 ml 400 ml Output Urine Total 600 ml 350 ml 325 ml 550 ml 300 ml # Bowel Movements 2 1 0 1 1 Result Diagram: 01/19/17 1548 01/20/17 0840 Objective Remarks GENERAL: MBMN WF, on Trach collar SKIN: Warm and dry. HEAD: Normocephalic. EYES: No scleral icterus. No injection or drainage. NECK: Supple, trachea midline. No JVD or lymphadenopathy. has trach CARDIOVASCULAR: Regular rate and rhythm without murmurs, gallops, or rubs. RESPIRATORY: Breath sounds equal bilaterally. No accessory muscle use. GASTROINTESTINAL: Abdomen soft, non-tender, nondistended. has PEG MUSCULOSKELETAL: No cyanosis, or edema. BACK: Nontender without obvious deformity. No CVA tenderness. A/P Assessment and Plan RF, S/P Trach CVA Arango arango disease CAD COPD SZ disorder PLAN: Aerosol nebs Cont trach collar supplement 02 Cont TF DW RN Trach suction prn. Levsin 0.125 mg q 8 hrs Vernon Marx MD Jan 20, 2017 19:29
[2017-01-21] VITALS (10 sets, daily range): BP systolic 105–149; BP diastolic 8–95; PULSE 86–103; RESP 18–20; TEMP 96.8–99.8; O2SAT 93–98
[2017-01-21] MEDS: INSULIN NovoLIN REGULAR SUPPLEMENTAL SCALE SQ SCH ×4 (01:55→20:00)
[2017-01-21] MEDS: CHLORHEXIDINE GLUCONATE 2 % 1 PACK (2 CLOTHS) TOP SCH (04:00)
[2017-01-21] MEDS: HYOSCYAMINE 0.125 MG TAB PO SCH ×3 (06:00→21:34)
[2017-01-21] MEDS: FREE WATER G-TUBE SCH ×4 (06:00→17:28)
[2017-01-21] MEDS: CHLORHEXIDINE 0.12% (ORAL KIT) 15 ML CUP MT SCH ×2 (08:00→21:23)
[2017-01-21] MEDS: COLLAGENASE OINT 30 GM TUBE TOPICAL SCH (09:00)
[2017-01-21] MEDS: JUVEN POWDER 1 PACK G-TUBE SCH ×2 (09:00→21:22)
[2017-01-21] MEDS: SODIUM CHLORIDE 0.9% FLUSH 10 ML FLUSH IV FLUSH SCH ×2 (09:00→21:21)
[2017-01-21] MEDS: LACTULOSE SYRUP 20 GM/30 ML CUP PO SCH ×2 (09:39→21:21)
[2017-01-21] MEDS: carBAMazepine SUSP 200 MG/10 ML UDC PEG SCH ×2 (09:39→21:21)
[2017-01-21] MEDS: levETIRAcetam 500 MG/5 ML UDC NG SCH ×2 (09:39→21:21)
[2017-01-21] MEDS: ASPIRIN 81 MG CHEW TAB NG SCH (09:39)
[2017-01-21] MEDS: BROMOCRIPTINE MESYLATE 2.5 MG TAB OG-TUBE SCH ×2 (09:39→21:21)
[2017-01-21] MEDS: FOLIC ACID 1 MG TAB OG-TUBE SCH (09:39)
[2017-01-21] MEDS: ATORVASTATIN 40 MG TAB PO SCH (09:39)
[2017-01-21] MEDS: FAMOTIDINE 20 MG TAB NG SCH ×2 (09:39→21:21)
--- NOTE | 2017-01-21 13:22 | HHI.PR ---
Subjective Remarks Follow up for CVA. Patient is non verbal and does not follow commands. Pt laying a bed, eyes closed, not responding to commands, NAD. Per pt's RN (Aamir), no acute changes overnight. Per RN pt not having diarrhea but "soft stools." No other issues/concerns noted or reported. VSS . Objective Vitals Vital Signs Date Time Temp Pulse Resp B/P Pulse Ox O2 Delivery O2 Flow Rate FiO2 01/21/17 11:53 97.0 99 18 124/75 97 01/21/17 09:33 97 T-piece 98 01/21/17 08:12 96.8 98 18 143/66 98 01/21/17 07:15 98 01/21/17 04:00 98.7 94 20 132/86 94 01/21/17 01:00 92 01/21/17 00:00 97.3 86 20 105/62 93 01/20/17 22:10 100 T-Piece 6.00 28 01/20/17 20:00 98.1 96 30 136/75 96 01/20/17 19:01 97 T-piece 6.00 28 01/20/17 19:01 97 T-piece 6.00 28 01/20/17 16:35 98.9 93 28 120/74 97 I/O 01/20/17 01/20/17 01/20/17 01/21/17 01/21/17 01/21/17 07:00 15:00 23:00 07:00 15:00 23:00 Intake Total 800 ml 943 ml 1120 ml 220 ml Output Total 550 ml 550 ml 275 ml Balance 250 ml 943 ml -550 ml 845 ml 220 ml Tube Feeding 600 ml 943 ml 720 ml 220 ml Tube Irrigant 200 ml Other 400 ml Output Urine Total 550 ml 550 ml 275 ml # Bowel Movements 1 2 3 Result Diagram: 01/19/17 1548 01/20/17 0840 Imaging No new imaging studies ordered, pending, or reported within the past 24 hours. Objective Remarks GENERAL: Pt encountered laying a bed, T-piece in place, eyes closed for entirety of visit, in NAD. SKIN: Warm and dry. HEAD: Normocephalic. EYES: No scleral icterus. No injection or drainage. NECK: Supple, t-piece in place. CARDIOVASCULAR: Tachycardic rate (101) and regular rhythm without murmurs, gallops, or rubs. RESPIRATORY: Breath sounds equal bilaterally, without rhonchi or wheezes. On respirator. Sats noted to be mostly in the 90's, yet had period where she decreased to upper 80's and quickly rebounded. GASTROINTESTINAL: Abdomen soft, non-tender, nondistended. G-tube in place MUSCULOSKELETAL: No cyanosis, or edema. bilateral SCD's in place as were bilateral off loading boots. Neurological: Pt not responding to commands, no spontaneous movement observed Procedures 11/24/2016 Percutaneous tracheostomy. 11/18/2016 Moderate encephalopathy with suggestion of left temporal region cortical irritability. No active seizures. Clinical correlation. Medications and IVs Current Medications Medications (Trade) Dose Ordered Sig/Ora Route Start Time Stop Time Status Last Admin (Peridex 0.12% Liq) 15 ml BID@08,20 MT 11/18/16 08:00 01/19/17 09:13 (NS Flush) 2 ml BID IV FLUSH 11/18/16 09:00 01/21/17 09:00 (Tylenol) 650 mg Q6H PRN PO 11/18/16 03:30 01/01/17 16:01 ([place]av[place] 5-325 Mg) 1 tab Q4H PRN PO 11/18/16 03:30 01/17/17 09:16 (Morphine Inj) 2 mg Q2H PRN IV 11/18/16 03:30 01/16/17 08:23 (Zofran Inj) 4 mg Q6H PRN IV 11/18/16 03:30 11/26/16 03:20 Miscellaneous Information 1 Q361D XX 11/18/16 03:30 11/18/16 03:30 (Chlorhexidine 2% Cloth) Taper DAILY@04 TOP 11/18/16 04:00 11/14/17 03:59 01/17/17 04:00 (Chlorhexidine 2% Cloth) 3 pack UNSCH PRN TOP 11/18/16 03:30 (Aspirin Chew) 324 mg DAILY NG 11/18/16 09:00 01/21/17 09:39 (Lipitor) 40 mg DAILY PO 11/18/16 09:00 01/21/17 09:39 (Parlodel) 2.5 mg Q12HR OG-TUBE 11/18/16 09:00 01/21/17 09:39 (Folate) 1 mg DAILY OG-TUBE 11/18/16 09:00 01/21/17 09:39 (Senna Liq) 8.8 mg BID PO 11/19/16 21:00 Hold 01/18/17 08:54 (D50w (Vial) Inj) 25 ml UNSCH PRN IV PUSH 11/22/16 08:00 (Glucagon Inj) 1 mg UNSCH PRN OTHER 11/22/16 08:00 (NovoLIN R SUPPLEMENTAL SCALE) 1 Q6H SQ 11/22/16 08:00 01/21/17 01:55 (Lopressor Inj) 5 mg Q6H PRN IV PUSH 11/23/16 22:45 01/12/17 03:20 (Lactulose Liq) 15 ml BID PO 11/26/16 09:00 01/21/17 09:39 (Dulcolax Supp) 10 mg DAILY PRN RECTAL 12/14/16 15:45 (Pepcid) 20 mg BID NG 12/21/16 21:00 01/21/17 09:39 (Keppra Liq) 1,500 mg Q12HR NG 12/21/16 21:00 01/21/17 09:39 (Levsin Liq) 0.125 mg Q4H PRN PO 12/28/16 07:15 01/16/17 08:23 (Santyl Oint) 1 applic DAILY TOPICAL 01/04/17 11:30 01/21/17 09:00 (TEGretol LIQ) 200 mg Q12HR PEG 01/06/17 09:00 01/21/17 09:39 (Corby Powder) 1 pack BID G-TUBE 01/13/17 09:00 01/21/17 09:00 (Free Water) 200 ml Q6HR G-TUBE 01/14/17 18:00 01/21/17 11:18 (Levsin) 0.125 mg Q8HR PO 01/19/17 22:00 01/21/17 06:00 (Miralax) 17 gm DAILY@18 PO 01/20/17 18:00 Urinary Catheter: Yes Assessment to: Continue Brown insert reason: Prolonged Immobilization Date of Insertion: Nov 19, 2016 A/P Problem List: (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 She was was admitted to [facility] emergency department 11/04/16 with difficulty getting her thoughts together. She was found to have multifocal nonhemorrhagic infarcts in left frontal and parietal regions, right frontal lobe and history of moyamoya disease. She was initially awake and following commands with weakness of RLE and some aphasia. She was transferred to [facility] where he had an cerebral angiogram consistent with moyamoya. There were plans to perform extracranial/intracranial bypass. However she had a seizure and ended up being intubated for status either 4/4 or 4/5.. She was found to have a new right frontal infarct area and she was started on Dilantin and Keppra and it was felt that she would not be a candidate for intervention. She has been intubated 9-10 days and apparently she has been tolerating C Pap trials to some extent but mental status prevents extubation. Treating team was discussing with family trach/PEG. Apparently family requested transfer back to [place] because they live locally here and wanted her closer to home. Patient remained under critical care medicine until 12/24/2016. Bilateral large frontal CVA Moyamoya Disease Seizure Disorder -Neuro following -Continue Keppra -Continue tegretol -Follow for seizure activity -Daily Aspirin -Bromocriptine Chronic Respiratory Failure Hx of COPD -No exacerbations -Continue tracheostomy with oxygen. Multilobar pneumonia -Tobramycin provided as treatment -ID following Dysphagia -Jevity 1.5 through PEG tube. Next Diarrhea -Hold stool softener -labs for today and in am -current antibiotic is tobramycin 80 mg q 12 hrs NEB. -Pt not dehydrated. C. Diff assay ordered, results pending. -C'Diff assay negative. Sacral/Coccyx wound -Specialty bed ordered -Wound care following DVT prophylaxis -SCDs Case discussed with pt's RN (Aamir) and Dr. Yuan Discharge Planning Patient will need long-term care facility Trell Torres Jr. Jan 21, 2017 13:22
[2017-01-21] MEDS: POLYETHYLENE GLYCOL 17 GM PKG PO SCH (17:28)
--- NOTE | 2017-01-21 18:17 | HHI.PR ---
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 Has Moderate amount of trach secretions Objective Vital Signs Vital Signs Date Time Temp Pulse Resp B/P Pulse Ox O2 Delivery O2 Flow Rate FiO2 01/21/17 16:22 99.8 96 20 131/69 98 01/21/17 11:53 97.0 99 18 124/75 97 01/21/17 09:33 97 T-piece 98 01/21/17 08:12 96.8 98 18 143/66 98 01/21/17 07:15 99 T-Piece 28 01/21/17 07:15 98 01/21/17 04:00 98.7 94 20 132/86 94 01/21/17 01:00 92 01/21/17 00:00 97.3 86 20 105/62 93 01/20/17 22:10 100 T-Piece 6.00 28 01/20/17 20:00 98.1 96 30 136/75 96 01/20/17 19:01 97 T-piece 6.00 28 01/20/17 19:01 97 T-piece 6.00 28 I/O 01/20/17 01/20/17 01/20/17 01/21/17 01/21/17 01/21/17 07:00 15:00 23:00 07:00 15:00 23:00 Intake Total 800 ml 943 ml 1120 ml 220 ml 0 ml Output Total 550 ml 550 ml 275 ml 725 ml Balance 250 ml 943 ml -550 ml 845 ml 220 ml -725 ml Intake Oral 0 ml Tube Feeding 600 ml 943 ml 720 ml 220 ml Tube Irrigant 200 ml Other 400 ml Output Urine Total 550 ml 550 ml 275 ml 725 ml # Bowel Movements 1 2 3 1 Result Diagram: 01/19/17 1548 01/20/17 0840 Objective Remarks GENERAL: MBMN WF, on Trach collar SKIN: Warm and dry. HEAD: Normocephalic. EYES: No scleral icterus. No injection or drainage. NECK: Supple, trachea midline. No JVD or lymphadenopathy. has trach CARDIOVASCULAR: Regular rate and rhythm without murmurs, gallops, or rubs. RESPIRATORY: Breath sounds equal bilaterally. No accessory muscle use. GASTROINTESTINAL: Abdomen soft, non-tender, nondistended. has PEG MUSCULOSKELETAL: No cyanosis, or edema. BACK: Nontender without obvious deformity. No CVA tenderness. A/P Assessment and Plan RF, S/P Trach CVA Arango arango disease CAD COPD SZ disorder PLAN: Aerosol nebs Cont trach collar supplement 02 Cont TF DW RN Trach suction prn. Levsin 0.125 mg q 8 hrs Vernon Marx MD Jan 21, 2017 18:17
[2017-01-22] VITALS (11 sets, daily range): BP systolic 102–140; BP diastolic 62–89; PULSE 84–104; RESP 18–20; TEMP 97.1–99; O2SAT 90–100
[2017-01-22] MEDS: INSULIN NovoLIN REGULAR SUPPLEMENTAL SCALE SQ SCH ×4 (02:00→20:00)
[2017-01-22] MEDS: CHLORHEXIDINE GLUCONATE 2 % 1 PACK (2 CLOTHS) TOP SCH (03:44)
[2017-01-22] MEDS: HYOSCYAMINE 0.125 MG TAB PO SCH ×3 (05:47→13:00)
[2017-01-22] MEDS: FREE WATER G-TUBE SCH ×5 (05:55→23:51)
[2017-01-22] MEDS: CHLORHEXIDINE 0.12% (ORAL KIT) 15 ML CUP MT SCH ×2 (08:00→23:51)
[2017-01-22] MEDS: ASPIRIN 81 MG CHEW TAB NG SCH (09:00)
[2017-01-22] MEDS: JUVEN POWDER 1 PACK G-TUBE SCH ×2 (09:00→21:00)
[2017-01-22] MEDS: COLLAGENASE OINT 30 GM TUBE TOPICAL SCH (09:00)
[2017-01-22] MEDS: SODIUM CHLORIDE 0.9% FLUSH 10 ML FLUSH IV FLUSH SCH ×2 (09:00→23:51)
[2017-01-22] MEDS: carBAMazepine SUSP 200 MG/10 ML UDC PEG SCH ×2 (10:45→21:39)
[2017-01-22] MEDS: levETIRAcetam 500 MG/5 ML UDC NG SCH ×2 (10:45→21:39)
[2017-01-22] MEDS: FAMOTIDINE 20 MG TAB NG SCH ×2 (10:45→21:37)
[2017-01-22] MEDS: BROMOCRIPTINE MESYLATE 2.5 MG TAB OG-TUBE SCH ×2 (10:45→21:39)
[2017-01-22] MEDS: FOLIC ACID 1 MG TAB OG-TUBE SCH (10:45)
[2017-01-22] MEDS: ATORVASTATIN 40 MG TAB PO SCH (10:46)
[2017-01-22 11:12] LABS: BICARBONATE 28.2 MEQ/L (21.0-32.0); POTASSIUM 3.8 MEQ/L (3.5-5.1)
--- NOTE | 2017-01-22 13:09 | HHI.PR ---
Subjective Remarks Follow up for CVA. Patient is non verbal and does not follow commands. Pt laying a bed, eyes closed, not responding to commands, NAD. Per pt's RN (Art), no acute changes overnight. Per RN, soft stools present, no diarrhea. No other issues/concerns noted or reported. VSS . Objective Vitals Vital Signs Date Time Temp Pulse Resp B/P Pulse Ox O2 Delivery O2 Flow Rate FiO2 01/22/17 12:47 97 T-piece 28 01/22/17 12:15 97.1 92 20 102/64 100 01/22/17 08:16 98.1 96 18 132/89 100 01/22/17 05:20 99 T-Piece 28 01/22/17 04:00 98.0 103 20 137/89 90 01/22/17 01:34 104 01/22/17 00:00 98.0 84 20 134/76 97 01/21/17 21:37 96 T-piece 35 01/21/17 21:37 96 T-piece 35 01/21/17 21:20 99 T-Piece 28 01/21/17 20:00 98.0 103 20 149/95 98 01/21/17 16:22 99.8 96 20 131/69 98 I/O 01/21/17 01/21/17 01/21/17 01/22/17 01/22/17 01/22/17 07:00 15:00 23:00 07:00 15:00 23:00 Intake Total 1120 ml 220 ml 938 ml 850 ml Output Total 275 ml 725 ml 700 ml Balance 845 ml 220 ml 213 ml 150 ml Intake Oral 0 ml Tube Feeding 720 ml 220 ml 538 ml 450 ml Other 400 ml 400 ml 400 ml Output Urine Total 275 ml 725 ml 700 ml # Bowel Movements 3 1 Result Diagram: 01/19/17 1548 01/22/17 1030 Imaging No new imaging ordered, pending or resulted within past 24 hours. Objective Remarks GENERAL: Pt encountered laying a bed, T-piece in place, eyes closed for entirety of visit, in NAD. SKIN: Warm and dry. HEAD: Normocephalic. EYES: No scleral icterus. No injection or drainage. NECK: Supple, t-piece in place. CARDIOVASCULAR: Regular rate and rhythm without murmurs, gallops, or rubs. RESPIRATORY: Breath sounds equal bilaterally, without rhonchi or wheezes. On respirator. GASTROINTESTINAL: Abdomen soft, non-tender, nondistended. G-tube in place MUSCULOSKELETAL: No cyanosis, or edema. bilateral SCD's in place as were bilateral off loading boots. Neurological: Pt not responding to commands, no spontaneous movement observed Procedures 11/24/2016 Percutaneous tracheostomy. 11/18/2016 Moderate encephalopathy with suggestion of left temporal region cortical irritability. No active seizures. Clinical correlation. Medications and IVs Current Medications Medications (Trade) Dose Ordered Sig/Ora Route Start Time Stop Time Status Last Admin (Peridex 0.12% Liq) 15 ml BID@08,20 MT 11/18/16 08:00 01/22/17 08:00 (NS Flush) 2 ml BID IV FLUSH 11/18/16 09:00 01/22/17 09:00 (Tylenol) 650 mg Q6H PRN PO 11/18/16 03:30 01/01/17 16:01 (Drummonds 5-325 Mg) 1 tab Q4H PRN PO 11/18/16 03:30 01/17/17 09:16 (Morphine Inj) 2 mg Q2H PRN IV 11/18/16 03:30 01/16/17 08:23 (Zofran Inj) 4 mg Q6H PRN IV 11/18/16 03:30 11/26/16 03:20 Miscellaneous Information 1 Q361D XX 11/18/16 03:30 11/18/16 03:30 (Chlorhexidine 2% Cloth) Taper DAILY@04 TOP 11/18/16 04:00 11/14/17 03:59 01/17/17 04:00 (Chlorhexidine 2% Cloth) 3 pack UNSCH PRN TOP 11/18/16 03:30 (Aspirin Chew) 324 mg DAILY NG 11/18/16 09:00 01/21/17 09:39 (Lipitor) 40 mg DAILY PO 11/18/16 09:00 01/22/17 10:46 (Parlodel) 2.5 mg Q12HR OG-TUBE 11/18/16 09:00 01/22/17 10:45 (Folate) 1 mg DAILY OG-TUBE 11/18/16 09:00 01/22/17 10:45 (Senna Liq) 8.8 mg BID PO 11/19/16 21:00 Hold 01/18/17 08:54 (D50w (Vial) Inj) 25 ml UNSCH PRN IV PUSH 11/22/16 08:00 (Glucagon Inj) 1 mg UNSCH PRN OTHER 11/22/16 08:00 (NovoLIN R SUPPLEMENTAL SCALE) 1 Q6H SQ 11/22/16 08:00 01/21/17 01:55 (Lopressor Inj) 5 mg Q6H PRN IV PUSH 11/23/16 22:45 01/12/17 03:20 (Dulcolax Supp) 10 mg DAILY PRN RECTAL 12/14/16 15:45 (Pepcid) 20 mg BID NG 12/21/16 21:00 01/22/17 10:45 (Keppra Liq) 1,500 mg Q12HR NG 12/21/16 21:00 01/22/17 10:45 (Levsin Liq) 0.125 mg Q4H PRN PO 12/28/16 07:15 01/16/17 08:23 (Santyl Oint) 1 applic DAILY TOPICAL 01/04/17 11:30 01/21/17 09:00 (TEGretol LIQ) 200 mg Q12HR PEG 01/06/17 09:00 01/22/17 10:45 (Corby Powder) 1 pack BID G-TUBE 01/13/17 09:00 01/22/17 09:00 (Free Water) 200 ml Q6HR G-TUBE 01/14/17 18:00 01/22/17 05:55 (Levsin) 0.125 mg Q8HR PO 01/19/17 22:00 01/22/17 05:48 Urinary Catheter: Yes Assessment to: Continue Brown insert reason: Prolonged Immobilization Date of Insertion: Nov 19, 2016 Vascular Central Line Catheter: No A/P Problem List: (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 She was was admitted to [facility] emergency department 11/04/16 with difficulty getting her thoughts together. She was found to have multifocal nonhemorrhagic infarcts in left frontal and parietal regions, right frontal lobe and history of moyamoya disease. She was initially awake and following commands with weakness of RLE and some aphasia. She was transferred to [facility] where he had an cerebral angiogram consistent with moyamoya. There were plans to perform extracranial/intracranial bypass. However she had a seizure and ended up being intubated for status either 4 or 4.. She was found to have a new right frontal infarct area and she was started on Dilantin and Keppra and it was felt that she would not be a candidate for intervention. She has been intubated 9-10 days and apparently she has been tolerating C Pap trials to some extent but mental status prevents extubation. Treating team was discussing with family trach/PEG. Apparently family requested transfer back to [place] because they live locally here and wanted her closer to home. Patient remained under critical care medicine until 12/24/2016. Bilateral large frontal CVA Moyamoya Disease Seizure Disorder -Neuro following -Continue Keppra -Continue Tegretol -Follow for seizure activity -Daily Aspirin -Bromocriptine -Check Tegretol level, CBC/CMP, and ammonia level Chronic Respiratory Failure Hx of COPD -No exacerbations -Continue tracheostomy with oxygen. Multilobar pneumonia -Tobramycin provided as treatment -ID following Dysphagia -Jevity 1.5 through PEG tube. Next Diarrhea -Hold stool softener -labs for today and in am -current antibiotic is tobramycin 80 mg q 12 hrs NEB. -Pt not dehydrated. C. Diff assay ordered, results pending. -C'Diff assay negative. Sacral/Coccyx wound -Specialty bed ordered -Wound care following DVT prophylaxis -SCDs Case discussed with pt's RN (Art) and Dr. Yuan Discharge Planning Patient will need long-term care facility Trell Torres Jr. Jan 22, 2017 13:09
[2017-01-23] VITALS (10 sets, daily range): BP systolic 113–140; BP diastolic 63–87; PULSE 83–110; RESP 19–24; TEMP 97.2–98.6; O2SAT 97–100
[2017-01-23] MEDS: INSULIN NovoLIN REGULAR SUPPLEMENTAL SCALE SQ SCH ×4 (02:00→20:00)
[2017-01-23] MEDS: CHLORHEXIDINE GLUCONATE 2 % 1 PACK (2 CLOTHS) TOP SCH (03:09)
[2017-01-23] MEDS: HYOSCYAMINE 0.125 MG TAB PO SCH ×3 (05:19→21:51)
[2017-01-23] MEDS: FREE WATER G-TUBE SCH ×3 (05:19→18:00)
[2017-01-23] MEDS: RESP: ALBUTEROL 2.5 MG/3 ML NEB (PRN) INH (07:59)
[2017-01-23] MEDS: CHLORHEXIDINE 0.12% (ORAL KIT) 15 ML CUP MT SCH ×2 (08:00→21:52)
[2017-01-23] MEDS: COLLAGENASE OINT 30 GM TUBE TOPICAL SCH (09:00)
[2017-01-23] MEDS: SODIUM CHLORIDE 0.9% FLUSH 10 ML FLUSH IV FLUSH SCH ×2 (09:00→22:07)
[2017-01-23] MEDS: JUVEN POWDER 1 PACK G-TUBE SCH ×2 (09:00→21:00)
[2017-01-23 09:27] LABS: AUTOMATED NEUTROPHIL # 9.8 TH/MM3 (1.8-7.7); BASOPHIL % 0.4 % (0.0-2.0); EOSINOPHIL # 0.2 TH/MM3 (0-0.4); EOSINOPHIL % 1.9 % (0.0-4.0); HEMATOCRIT 32.8 % (35.0-46.0); HEMO FLAGS DIFF FINAL; LYMPH % 16.5 % (9.0-44.0); LYMPHOCYTE # 2.1 TH/MM3 (1.0-4.8); MEAN CELL VOLUME 78.7 FL (80.0-100.0); MEAN CORPUSCULAR HGB CONC 31.8 % (32.0-36.0); MONO % 2.7 % (0.0-8.0); NEUT % 78.5 % (16.0-70.0); PLATELET COUNT 392 TH/MM3 (150-450); RED BLOOD COUNT 4.16 MIL/MM3 (4.00-5.30); WHITE BLOOD COUNT 12.4 TH/MM3 (4.0-11.0)
[2017-01-23 09:48] LABS: ANION GAP 10 MEQ/L (5-15); AST (GOT) 23 U/L (15-37); BLOOD UREA NITROGEN 32 MG/DL (7-18); CHLORIDE 103 MEQ/L (98-107); GLOMERULAR FILTRATION RATE 137 ML/MIN (>89); POTASSIUM 3.8 MEQ/L (3.5-5.1); SODIUM (NA) 140 MEQ/L (136-145)
[2017-01-23 09:50] LABS: ALT (GPT) 26 U/L (10-53)
[2017-01-23 10:02] LABS: ALKALINE PHOSPHATASE 110 U/L (45-117); TOTAL BILIRUBIN ADULT 0.3 MG/DL (0.2-1.0)
[2017-01-23] MEDS: ATORVASTATIN 40 MG TAB PO SCH (10:02)
[2017-01-23] MEDS: carBAMazepine SUSP 200 MG/10 ML UDC PEG SCH ×2 (10:02→21:51)
[2017-01-23] MEDS: FAMOTIDINE 20 MG TAB NG SCH ×2 (10:03→21:51)
[2017-01-23] MEDS: BROMOCRIPTINE MESYLATE 2.5 MG TAB OG-TUBE SCH ×2 (10:03→21:51)
[2017-01-23] MEDS: ASPIRIN 81 MG CHEW TAB NG SCH (10:03)
[2017-01-23] MEDS: FOLIC ACID 1 MG TAB OG-TUBE SCH (10:12)
[2017-01-23] MEDS: levETIRAcetam 500 MG/5 ML UDC NG SCH ×2 (10:12→21:52)
[2017-01-23] MEDS: LACTULOSE SYRUP 20 GM/30 ML CUP PO SCH ×2 (10:38→21:51)
--- NOTE | 2017-01-23 14:08 | HHI.PR ---
Subjective Remarks Follow up for CVA. Patient is non verbal and does not follow commands. Pt laying a bed, eyes closed, not responding to commands, NAD. Per pt's RN (Art), no acute changes overnight. Per RN, soft stools present, no diarrhea. No other issues/concerns noted or reported. VSS . Objective Vitals Vital Signs Date Time Temp Pulse Resp B/P Pulse Ox O2 Delivery O2 Flow Rate FiO2 01/23/17 10:00 98.4 86 24 113/70 97 01/23/17 08:02 99 T-piece 28 01/23/17 08:02 99 T-piece 28 01/23/17 08:00 97.7 96 22 133/87 99 01/23/17 04:36 97.6 92 19 136/84 99 01/23/17 00:27 97.2 90 19 120/80 100 01/22/17 22:21 Trach Collar 6.00 28 T-Piece 01/22/17 22:19 101 01/22/17 20:33 96 T-piece 6.00 28 01/22/17 20:33 96 T-piece 6.00 28 01/22/17 20:17 99.0 97 19 140/83 100 01/22/17 16:06 97.3 89 20 121/62 100 I/O 01/22/17 01/22/17 01/22/17 01/23/17 01/23/17 01/23/17 07:00 15:00 23:00 07:00 15:00 23:00 Intake Total 850 ml 979 ml 625 ml Output Total 700 ml 450 ml 300 ml Balance 150 ml -450 ml 979 ml 325 ml Tube Feeding 450 ml 979 ml 625 ml Other 400 ml Output Urine Total 700 ml 450 ml 300 ml # Bowel Movements 2 2 Result Diagram: 01/23/17 0855 01/23/17 0855 Imaging Last Impressions Chest X-Ray 01/09/17 0000 Signed Impressions: Service Date/Time: Monday, January 09, 2017 11:56 - CONCLUSION: Mild bilateral pulmonary vasculature indistinctness suggesting pulmonary vascular congestion/mild pulmonary edema. Sami Mccarthy MD Brain MRI 01/06/17 0000 Signed Impressions: Service Date/Time: January 14:19 - CONCLUSION: Continued evolutionary changes of large bilateral frontal lobe infarcts. Sami Mccarthy MD Abdomen X-Ray 11/26/16 0000 Signed Impressions: Service Date/Time: Saturday, November 26, 2016 10:18 - CONCLUSION: Distended stomach otherwise nonspecific abdomen. K. David Murillo MD Objective Remarks GENERAL: Pt encountered laying a bed, T-piece in place, eyes closed for entirety of visit, in NAD. SKIN: Warm and dry. HEAD: Normocephalic. EYES: No scleral icterus. No injection or drainage. Eye lids in order to visualize eyes. NECK: Supple, t-piece in place. CARDIOVASCULAR: Regular rate and rhythm without murmurs, gallops, or rubs. RESPIRATORY: Breath sounds equal bilaterally, without rhonchi or wheezes. On respirator. GASTROINTESTINAL: Abdomen soft, non-tender, nondistended. G-tube in place MUSCULOSKELETAL: No cyanosis, or edema. bilateral SCD's in place as were bilateral off loading boots. Neurological: Pt not responding to commands, no spontaneous movement observed Procedures 11/24/2016 Percutaneous tracheostomy. 11/18/2016 Moderate encephalopathy with suggestion of left temporal region cortical irritability. No active seizures. Clinical correlation. Medications and IVs Current Medications Medications (Trade) Dose Ordered Sig/Ora Route Start Time Stop Time Status Last Admin (Peridex 0.12% Liq) 15 ml BID@08,20 MT 11/18/16 08:00 01/23/17 08:00 (NS Flush) 2 ml BID IV FLUSH 11/18/16 09:00 01/23/17 09:00 (Tylenol) 650 mg Q6H PRN PO 11/18/16 03:30 01/01/17 16:01 (Bruno 5-325 Mg) 1 tab Q4H PRN PO 11/18/16 03:30 01/17/17 09:16 (Morphine Inj) 2 mg Q2H PRN IV 11/18/16 03:30 01/16/17 08:23 (Zofran Inj) 4 mg Q6H PRN IV 11/18/16 03:30 11/26/16 03:20 Miscellaneous Information 1 Q361D XX 11/18/16 03:30 11/18/16 03:30 (Chlorhexidine 2% Cloth) Taper DAILY@04 TOP 11/18/16 04:00 11/14/17 03:59 01/17/17 04:00 (Chlorhexidine 2% Cloth) 3 pack UNSCH PRN TOP 11/18/16 03:30 (Aspirin Chew) 324 mg DAILY NG 11/18/16 09:00 01/23/17 10:03 (Lipitor) 40 mg DAILY PO 11/18/16 09:00 01/23/17 10:02 (Parlodel) 2.5 mg Q12HR OG-TUBE 11/18/16 09:00 01/23/17 10:03 (Folate) 1 mg DAILY OG-TUBE 11/18/16 09:00 01/23/17 10:12 (Senna Liq) 8.8 mg BID PO 11/19/16 21:00 Hold 01/18/17 08:54 (D50w (Vial) Inj) 25 ml UNSCH PRN IV PUSH 11/22/16 08:00 (Glucagon Inj) 1 mg UNSCH PRN OTHER 11/22/16 08:00 (NovoLIN R SUPPLEMENTAL SCALE) 1 Q6H SQ 11/22/16 08:00 01/23/17 10:30 (Lopressor Inj) 5 mg Q6H PRN IV PUSH 11/23/16 22:45 01/12/17 03:20 (Dulcolax Supp) 10 mg DAILY PRN RECTAL 12/14/16 15:45 (Pepcid) 20 mg BID NG 12/21/16 21:00 01/23/17 10:03 (Keppra Liq) 1,500 mg Q12HR NG 12/21/16 21:00 01/23/17 10:12 (Levsin Liq) 0.125 mg Q4H PRN PO 12/28/16 07:15 01/16/17 08:23 (Santyl Oint) 1 applic DAILY TOPICAL 01/04/17 11:30 01/23/17 09:00 (TEGretol LIQ) 200 mg Q12HR PEG 01/06/17 09:00 01/23/17 10:02 (Corby Powder) 1 pack BID G-TUBE 01/13/17 09:00 01/23/17 09:00 (Free Water) 200 ml Q6HR G-TUBE 01/14/17 18:00 01/23/17 10:04 (Levsin) 0.125 mg Q8HR PO 01/19/17 22:00 01/23/17 05:19 (Lactulose Liq) 15 ml BID PO 01/23/17 11:00 01/23/17 10:38 Urinary Catheter: Yes Assessment to: Continue Brown insert reason: Prolonged Immobilization Date of Insertion: Nov 19, 2016 A/P Problem List: (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 She was was admitted to [facility] emergency department 11/04/16 with difficulty getting her thoughts together. She was found to have multifocal nonhemorrhagic infarcts in left frontal and parietal regions, right frontal lobe and history of moyamoya disease. She was initially awake and following commands with weakness of RLE and some aphasia. She was transferred to [facility] where he had an cerebral angiogram consistent with moyamoya. There were plans to perform extracranial/intracranial bypass. However she had a seizure and ended up being intubated for status either 4/4 or 4/5.. She was found to have a new right frontal infarct area and she was started on Dilantin and Keppra and it was felt that she would not be a candidate for intervention. She has been intubated 9-10 days and apparently she has been tolerating C Pap trials to some extent but mental status prevents extubation. Treating team was discussing with family trach/PEG. Apparently family requested transfer back to [place] because they live locally here and wanted her closer to home. Patient remained under critical care medicine until 12/24/2016. Bilateral large frontal CVA Moyamoya Disease Seizure Disorder -Neuro following -Continue Keppra -Continue Tegretol -Follow for seizure activity -Daily Aspirin -Bromocriptine -Check Tegretol level, CBC/CMP, and ammonia level -Tegretol level WNL. Ammonia level elevated-reinstituted pts. order of lactulose 15 ml q 12 hrs Chronic Respiratory Failure Hx of COPD -No exacerbations -Continue tracheostomy with oxygen. Multilobar pneumonia -Tobramycin provided as treatment, course ended on 01/20/17. -ID following Dysphagia -Jevity 1.5 through PEG tube. Diarrhea -Hold stool softener -labs for today and in am -current antibiotic is tobramycin 80 mg q 12 hrs NEB. -Pt not dehydrated. C. Diff assay ordered, results pending. -C'Diff assay negative. Sacral/Coccyx wound -Specialty bed ordered -Wound care following DVT prophylaxis -SCDs Case discussed with pt's RN (Art) and Dr. Yuan Discharge Planning Patient will need long-term care facility Trell Torres Jr. Jan 23, 2017 14:08
[2017-01-24] VITALS (9 sets, daily range): BP systolic 120–135; BP diastolic 64–87; PULSE 78–108; RESP 22–24; TEMP 96.6–99.7; O2SAT 95–99
[2017-01-24] MEDS: RESP: ALBUTEROL 2.5 MG/3 ML NEB (PRN) INH ×2 (01:08→06:11)
[2017-01-24] MEDS: INSULIN NovoLIN REGULAR SUPPLEMENTAL SCALE SQ SCH ×4 (01:45→20:00)
[2017-01-24] MEDS: HYOSCYAMINE SOLN 0.125 MG/ML 15 ML BTL PO PRN (01:45)
[2017-01-24] MEDS: CHLORHEXIDINE GLUCONATE 2 % 1 PACK (2 CLOTHS) TOP SCH (01:45)
[2017-01-24] MEDS: FREE WATER G-TUBE SCH ×4 (06:00→18:00)
[2017-01-24] MEDS: HYOSCYAMINE 0.125 MG TAB PO SCH ×3 (06:11→22:20)
[2017-01-24] MEDS: CHLORHEXIDINE 0.12% (ORAL KIT) 15 ML CUP MT SCH ×2 (08:00→20:00)
--- NOTE | 2017-01-24 08:05 | HHI.PR ---
Subjective Remarks no sz reported to me recently Objective Vital Signs Date Time Temp Pulse Resp B/P Pulse Ox O2 Delivery O2 Flow Rate FiO2 01/24/17 04:45 96.6 101 24 129/79 95 01/24/17 00:00 97.4 108 24 135/81 97 01/23/17 22:46 110 01/23/17 22:21 Trach Collar 5.00 28 T-Piece 01/23/17 22:13 100 T-piece 28 01/23/17 20:00 97.9 91 20 140/63 97 01/23/17 16:00 98.6 91 22 123/83 98 01/23/17 14:00 83 01/23/17 10:00 98.4 86 24 113/70 97 I/O 01/23/17 01/23/17 01/23/17 01/24/17 01/24/17 01/24/17 07:00 15:00 23:00 07:00 15:00 23:00 Intake Total 625 ml 1336 ml Output Total 300 ml 400 ml 750 ml Balance 325 ml -400 ml 586 ml Tube Feeding 625 ml 1336 ml Output Urine Total 300 ml 400 ml 750 ml # Bowel Movements 2 1 1 Result Diagram: 01/23/17 0855 01/23/17 0855 Procedures 11/24/2016 Percutaneous tracheostomy. Objective Remarks not following commands pupils = does moves eyes around and tracks me and rxt to threat nl no command following no change stable Assessment and Plan Assessment and Plan imp huge r frontal cva and inc size left frontal cva may eventually awaken and interact more mri no change resolving cva eeg some left sharps stay on keppra no anticoag now due to size of cva trached and pegged I THINK SHE LOOKS BETTER AND EVENTUALLY MAY INTERACT MORE AND SPEAK WE WILL HAVE TO WAIT AND SEE SOME DAMAGE TO LANGUAGE AREA IN FRONT I THINK BY MRI no change here 01/06/17 focal sz add tegretol check eeg and mri - 01/07/17 no more sz mri not new eeg neg on cbz 4.6 and keppra follow level i will be out of town call neuro isf any new sz 01/24/17 no more sz reported on cbz level 7 and keppra eeg neg sz mri no major change stable neuro check cbz labs ast alt cbc bmp in one month Terrence Flores MD Jan 24, 2017 08:05
[2017-01-24 08:43] LABS: HEMATOCRIT 31.6 % (35.0-46.0); MEAN CELL VOLUME 79.2 FL (80.0-100.0); MEAN CORPUSCULAR HEMOGLOBIN 25.2 PG (27.0-34.0); MEAN CORPUSCULAR HGB CONC 31.8 % (32.0-36.0); PLATELET COUNT 362 TH/MM3 (150-450); RED BLOOD COUNT 3.98 MIL/MM3 (4.00-5.30); RED CELL DISTRIBUTION WIDTH 19.8 % (11.6-17.2); REVIEW FLAG FINAL; WHITE BLOOD COUNT 12.7 TH/MM3 (4.0-11.0)
[2017-01-24] MEDS: COLLAGENASE OINT 30 GM TUBE TOPICAL SCH (09:00)
[2017-01-24] MEDS: LACTULOSE SYRUP 20 GM/30 ML CUP PO SCH ×2 (09:00→22:19)
[2017-01-24] MEDS: SODIUM CHLORIDE 0.9% FLUSH 10 ML FLUSH IV FLUSH SCH ×2 (09:00→22:21)
[2017-01-24] MEDS: JUVEN POWDER 1 PACK G-TUBE SCH ×2 (09:00→21:00)
[2017-01-24 09:11] LABS: BICARBONATE 26.2 MEQ/L (21.0-32.0); POTASSIUM 4.1 MEQ/L (3.5-5.1)
[2017-01-24] MEDS: levETIRAcetam 500 MG/5 ML UDC NG SCH ×2 (09:39→22:18)
[2017-01-24] MEDS: carBAMazepine SUSP 200 MG/10 ML UDC PEG SCH ×2 (09:41→22:19)
[2017-01-24] MEDS: ASPIRIN 81 MG CHEW TAB NG SCH (09:42)
[2017-01-24] MEDS: FAMOTIDINE 20 MG TAB NG SCH ×2 (09:42→22:19)
[2017-01-24] MEDS: FOLIC ACID 1 MG TAB OG-TUBE SCH (09:42)
[2017-01-24] MEDS: ATORVASTATIN 40 MG TAB PO SCH (09:48)
[2017-01-24] MEDS: BROMOCRIPTINE MESYLATE 2.5 MG TAB OG-TUBE SCH ×2 (09:53→22:20)
--- NOTE | 2017-01-24 11:26 | HHI.HCPN ---
Reason for visit a. To assist with evaluation and management of symptoms including: encephalopathy, seizure, dyspnea, weakness b. To assist medical decision maker(s) with: better understanding of current medical conditions; weighing benefits/burdens of medical treatment options; making medical treatment decisions. . Subjective/Interval History Seen to follow up on comfort, neurological status. No new witnessed seizures. Afebrile, ID has signed off. still w secretions req. suctioning of trach, PRN levsin. labs WNL. Afebrile, no new micro since 12/25. Remains on t-piece 28% fio2. No changes in neuro assess reported- cont to be nonresponsive. Neuro following. 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 Pt seen in room no visitors present. She is with eyes closed, opens some to loud verbal + vigorous touch. Does not track me, does not keep eyes open during exam. No withdraw to pain on extremities. After exam call to dtr Maria Del Carmen to provide update--VM left. D/w primary RN. . Family/friend interactions 1630 later received call back from daughter Maria Del Carmen, provided update on current condition, assessment, treatments in place, breathing status. She has questions regarding reported episodes of apnea or etc. the patient will occasionally have apnea periods in which her sats dropped to the ED and then she recovers and resumes respirations again. Advised that this is likely secondary to severe brain injury, that her saturation etc. are being monitored and that if she is not correct or rebound from any site episode it would likely she'll be placed back on a ventilator and additional respiratory support. She has additional questions about physical therapy and any possible reports that patient could be participating more-- . Advance Directives Living Will: Never completed Health Care Surrogate: Never completed Durable Power of Casing Crew Pusher: Never completed Advance Directive Specifics Health Care Surrogate(s): No known written advance directives. Patient currently incapacitated to make her healthcare decisions. According to [place] statutes health care proxy decision-making falls to the majority of adult children. Patient has 3 children. . Objective Vital Signs Date Time Temp Pulse Resp B/P Pulse Ox O2 Delivery O2 Flow Rate FiO2 01/24/17 09:15 98 T-piece 28 01/24/17 09:15 97 T-piece 28 01/24/17 08:34 98.4 94 22 126/87 99 01/24/17 04:45 96.6 101 24 129/79 95 01/24/17 00:00 97.4 108 24 135/81 97 01/23/17 22:46 110 01/23/17 22:21 Trach Collar 5.00 28 T-Piece 01/23/17 22:13 100 T-piece 28 01/23/17 20:00 97.9 91 20 140/63 97 01/23/17 16:00 98.6 91 22 123/83 98 01/23/17 14:00 83 Intake & Output 01/24/17 01/24/17 07:00 19:00 Intake Total 1336 ml Output Total 750 ml Balance 586 ml Tube Feeding 1336 ml Output Urine Total 750 ml # Bowel Movements 1 Physical Exam CONSTITUTIONAL/GENERAL: lethargic, minimally responsive pt on t-piece. TUBES/LINES/DRAINS: PIV L wrist , Tracheostomy, PEG, Brown, SCDs, multipodus boots. CARDIOVASCULAR: Regular rate and rhythm, no murmur. RESPIRATORY/CHEST: trach midline. Symmetric, unlabored respirations via trach to 28% FIO2 on T piece . Clear to auscultation. GASTROINTESTINAL: Abdomen soft, nondistended. Bowel sounds active. +PEG LUQ site asymptomatic, +TF infusing GENITOURINARY: Without palpable bladder distension. Brown catheter in place- clear yellow urine. NEUROLOGICAL: Eyes closed, intermittently opens to stimuli. Does not track examiner. No withdrawal to pain stimuli to extremities. PSYCHIATRIC: limited assess due to clinical condition-- no signs of anxiety or distress . Diagnostic Tests Laboratory Laboratory Tests Test 01/22/17 01/23/17 01/24/17 10:30 08:55 08:29 Sodium Level 142 MEQ/L 140 MEQ/L 139 MEQ/L (136-145) (136-145) (136-145) Potassium Level 3.8 MEQ/L 3.8 MEQ/L 4.1 MEQ/L (3.5-5.1) (3.5-5.1) (3.5-5.1) Chloride Level 106 MEQ/L 103 MEQ/L 103 MEQ/L (98-107) (98-107) (98-107) Carbon Dioxide Level 28.2 MEQ/L 27.0 MEQ/L 26.2 MEQ/L (21.0-32.0) (21.0-32.0) (21.0-32.0) Anion Gap 8 MEQ/L (5-15) 10 MEQ/L (5-15) 10 MEQ/L (5-15) Blood Urea Nitrogen 29 MG/DL (7-18) 32 MG/DL (7-18) 29 MG/DL (7-18) Creatinine 0.45 MG/DL 0.46 MG/DL 0.41 MG/DL (0.50-1.00) (0.50-1.00) (0.50-1.00) Estimat Glomerular Filtration 140 ML/MIN 137 ML/MIN 156 ML/MIN Rate (>89) (>89) (>89) Random Glucose 148 MG/DL 167 MG/DL 173 MG/DL (74-106) (74-106) (74-106) Calcium Level 8.6 MG/DL 8.2 MG/DL 8.8 MG/DL (8.5-10.1) (8.5-10.1) (8.5-10.1) White Blood Count 12.4 TH/MM3 12.7 TH/MM3 (4.0-11.0) (4.0-11.0) Red Blood Count 4.16 MIL/MM3 3.98 MIL/MM3 (4.00-5.30) (4.00-5.30) Hemoglobin 10.4 GM/DL 10.1 GM/DL (11.6-15.3) (11.6-15.3) Hematocrit 32.8 % 31.6 % (35.0-46.0) (35.0-46.0) Mean Corpuscular Volume 78.7 FL 79.2 FL (80.0-100.0) (80.0-100.0) Mean Corpuscular Hemoglobin 25.0 PG 25.2 PG (27.0-34.0) (27.0-34.0) Mean Corpuscular Hemoglobin 31.8 % 31.8 % Concent (32.0-36.0) (32.0-36.0) Red Cell Distribution Width 19.0 % 19.8 % (11.6-17.2) (11.6-17.2) Platelet Count 392 TH/MM3 362 TH/MM3 (150-450) (150-450) Mean Platelet Volume 9.4 FL 8.9 FL (7.0-11.0) (7.0-11.0) Neutrophils (%) (Auto) 78.5 % (16.0-70.0) Lymphocytes (%) (Auto) 16.5 % (9.0-44.0) Monocytes (%) (Auto) 2.7 % (0.0-8.0) Eosinophils (%) (Auto) 1.9 % (0.0-4.0) Basophils (%) (Auto) 0.4 % (0.0-2.0) Neutrophils # (Auto) 9.8 TH/MM3 (1.8-7.7) Lymphocytes # (Auto) 2.1 TH/MM3 (1.0-4.8) Monocytes # (Auto) 0.3 TH/MM3 (0-0.9) Eosinophils # (Auto) 0.2 TH/MM3 (0-0.4) Basophils # (Auto) 0.0 TH/MM3 (0-0.2) CBC Comment DIFF FINAL Differential Comment Total Bilirubin 0.3 MG/DL (0.2-1.0) Aspartate Amino Transf 23 U/L (15-37) (AST/SGOT) Alanine Aminotransferase 26 U/L (10-53) (ALT/SGPT) Alkaline Phosphatase 110 U/L (45-117) Ammonia 40 MCMOL/L 39 MCMOL/L (11-32) (11-32) Total Protein 7.0 GM/DL (6.4-8.2) Albumin 2.1 GM/DL (3.4-5.0) Carbamazepine (Tegretol) Level 7.0 MCG/ML (4.0-12.0) Result Diagram: 01/24/17 0829 01/24/17 0829 Imaging Last Impressions Chest X-Ray 01/09/17 0000 Signed Impressions: Service Date/Time: Monday, January 09, 2017 11:56 - CONCLUSION: Mild bilateral pulmonary vasculature indistinctness suggesting pulmonary vascular congestion/mild pulmonary edema. Sami Mccarthy MD Brain MRI 01/06/17 0000 Signed Impressions: Service Date/Time: January 14:19 - CONCLUSION: Continued evolutionary changes of large bilateral frontal lobe infarcts. Sami Mccarthy MD Abdomen X-Ray 11/26/16 0000 Signed Impressions: Service Date/Time: Saturday, November 26, 2016 10:18 - CONCLUSION: Distended stomach otherwise nonspecific abdomen. Jackson Murillo MD Procedures 11/22 - PEG placement 11/30 - tracheostomy Assessment and Plan Disease Oriented Problem List: (1) CVA (cerebral vascular accident) (2) Moyamoya disease (3) Seizure Comment: On Keppra . (4) Generalized weakness Symptom Scale: (1) Seizure 0-10 Scale: Unable to quantify (2) Generalized weakness 0-10 Scale: Unable to quantify (3) Dyspnea 0-10 Scale: Unable to quantify (4) Constipation 0-10 Scale: Unable to quantify (5) Encephalopathy 0-10 Scale: Unable to quantify Pertinent Non-Medical Issues Psychosocial: Single. Has 2 daughters and one son. Spiritual: unknown. Legal: Patient is incapacitated to make healthcare decisions. No known written advanced directives. According to [place] Statutes, health care proxy decision making falls to majority of adult children. Patient has 2 daughters (Marcelo Joyce) and 1 son (Dwight). Ethical issues impacting care: No known concerns at this time. . Important Contacts * Maria Del Carmen Rivas, daughter: [phone] * Marcelo Rivas, daughter: [phone] * Dwight Rivas, son: [phone] . Prognosis MRI/EEG reviewed by neurology, prognosis felt to be poor, infarct noted to be huge. Repeat MRI done 12/[address] Flores and he feels that she may regain some ability to speak but does note that the infarct was a huge right frontal CVA and increased size of the left frontal CVA. EEG showed some left "sharps" and his recommendation was to continue Keppra. Prognosis remains poor in light of the most current studies. Code Status: Full Code Plan * Patient is incapacitated to make healthcare decisions. No known written advanced directives. According to [place] Statutes, health care proxy decision making falls to majority of adult children. Patient has 2 daughters (Marcelo Joyce) and 1 son (Dwight). * CODE STATUSFULL CODE * GOALS: Goals have been established as aggressive. There have been differing opinions between the 2 daughters regarding DNR status ; they would continue full CODE STATUS until the family could reach a consensus. Palliative available as needed if there is a change in condition/to revisit goals with family as needed. SYMPTOMS: * Seizure: hx seizures 2/2 CVA; EEG showed "left sharps" and was continued per neurology. She remains on Keppra, no recent seizures reported. Neuro cont to follow. Tegratol added by neuro. * Weakness: due to prolonged hospital course, bilateral infarcts. Not regaining any purposeful or spontaneous movements as of yet. PT continues to follow working with bed mobility requiring maximum assistance, not demonstrating any participation. Placement is pending-- possible acceptance at [facility] pending bed availability. Case management following. * Dyspnea: Off sedation. tolerating T Piece. Off abx. + some beige secretions req . sx. O2 sats stable. No signs of tachypnea, or dyspnea. She remains at risk for complications due to severe mitral regurgitation, tracheostomy and immobility. * Encephalopathy: no change in alertness or responsiveness. Dr. Flores following. Repeat MRI with no changes. recent repeat eeg= no seizure, + mod to severe encephalopathy * Constipation: Resolved with regular bowel movements. Palliative care has established goals with pt family. Palliative available PRN for any changes in condition for clarification of goals of treatment / weighing benefits/burdens of treatment options, or for any symptoms of palliative concern. . Attestation To help prompt me to consider important information that might be impacting today's encounter and assessment, information from prior notes written by myself or my colleagues may have been "brought forward" into today's note. My signature on this note, however, is an attestation that I personally performed the exam, history, and/or decision-making noted today, and, unless otherwise indicated, the interactions with patient, family, and staff as well as the review of records all occurred today. I also attest that the listed assessment and stated plan reflect my best clinical judgment today based on the combination of historical information, prior notes, and today's exam/ interactions. When time spent is documented, it refers only to time spent today by the signer, or if indicated, combined time spent today by collaborating physician/nurse practitioner. Yuridia Almeida Jan 24, 2017 11:26
--- NOTE | 2017-01-24 16:31 | HHI.PR ---
Subjective Remarks Follow-up for CVA. Patient is nonverbal and does not follow any commands. Patient is resting in bed, eyes closed. She opens her eyes slightly on verbal commands. No acute distress. Remains afebrile. Objective Vitals Vital Signs Date Time Temp Pulse Resp B/P Pulse Ox O2 Delivery O2 Flow Rate FiO2 01/24/17 12:28 98.2 97 22 126/86 99 01/24/17 09:15 98 T-piece 28 01/24/17 09:15 97 T-piece 28 01/24/17 08:34 98.4 94 22 126/87 99 01/24/17 04:45 96.6 101 24 129/79 95 01/24/17 00:00 97.4 108 24 135/81 97 01/23/17 22:46 110 01/23/17 22:21 Trach Collar 5.00 28 T-Piece 01/23/17 22:13 100 T-piece 28 01/23/17 20:00 97.9 91 20 140/63 97 I/O 01/23/17 01/23/17 01/23/17 01/24/17 01/24/17 01/24/17 07:00 15:00 23:00 07:00 15:00 23:00 Intake Total 625 ml 1336 ml Output Total 300 ml 400 ml 750 ml 250 ml Balance 325 ml -400 ml 586 ml -250 ml Tube Feeding 625 ml 1336 ml Output Urine Total 300 ml 400 ml 750 ml 250 ml # Bowel Movements 2 1 1 1 Result Diagram: 01/24/17 0829 01/24/17 0829 Objective Remarks GENERAL: Alert, eyes open on verbal commands, does not respond to verbal commands. SKIN: Warm and dry. HEAD: Normocephalic. EYES: No scleral icterus. No injection or drainage. NECK: Supple, trachea midline. No JVD or lymphadenopathy. CARDIOVASCULAR: Regular rhythm, tachycardic without murmurs, gallops, or rubs. RESPIRATORY: Breath sounds equal bilaterally. No accessory muscle use. GASTROINTESTINAL: Abdomen soft, non-tender, nondistended. MUSCULOSKELETAL: No cyanosis, or edema. Procedures 11/24/2016 Percutaneous tracheostomy. 11/18/2016 Moderate encephalopathy with suggestion of left temporal region cortical irritability. No active seizures. Clinical correlation. 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 Rivas is a 66-year-old female with a history of stroke who was admitted to the [facility] on 11/04/2016 due to difficulty getting her thoughts together. She was found to have multifocal nonhemorrhagic infarctions in the frontal and parietal regions. She was initially awake and following commands with weakness of RLE and some aphasia. She was transferred to [facility] where he had an cerebral angiogram consistent with moyamoya. There were plans to perform extracranial/intracranial bypass. However she had a seizure and ended up being intubated for status either 11/09 or 11/10.. She was found to have a new right frontal infarct area and she was started on Dilantin and Keppra and it was felt that she would not be a candidate for intervention. She has been intubated 9-10 days and apparently she has been tolerating C Pap trials to some extent but mental status prevents extubation. Treating team was discussing with family trach/PEG. Apparently family requested transfer back to [place] because they live locally here and wanted her closer to home. Patient remained under critical care medicine until 12/24/2016. - Bilateral frontal CVA - Moyamoya - confirmed by arteriogram at [facility] October 2016. - Seizure disorder -Neuro following -Continue Keppra -Continue Tegretol -Follow for seizure activity -Daily Aspirin -Bromocriptine -Check Tegretol level, CBC/CMP, and ammonia level -Tegretol level WNL. Ammonia level elevated-reinstituted pts. order of lactulose 15 ml q 12 hrs - COPD - Acute respiratory failure - currently on T piece. - Multilobar pneumonia Status post tracheostomy on 11/24/2016. Pulmonary following. DuoNeb when necessary Multilobar pneumonia -Tobramycin provided as treatment, course ended on 01/20/17. -ID following - Nutrition - continue Jevity 1.5 through PEG tube. Sacral/Coccyx wound -Specialty bed ordered -Wound care following Full code. SCDs. Lucy Clayton DO Jan 24, 2017 4:30 pm
--- NOTE | 2017-01-24 18:29 | HHI.PR ---
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 Has Moderate amount of trach secretions no new complaint reported Objective Vital Signs Vital Signs Date Time Temp Pulse Resp B/P Pulse Ox O2 Delivery O2 Flow Rate FiO2 01/24/17 16:25 99.7 88 22 120/64 95 01/24/17 12:28 98.2 97 22 126/86 99 01/24/17 09:15 98 T-piece 28 01/24/17 09:15 97 T-piece 28 01/24/17 08:34 98.4 94 22 126/87 99 01/24/17 04:45 96.6 101 24 129/79 95 01/24/17 00:00 97.4 108 24 135/81 97 01/23/17 22:46 110 01/23/17 22:21 Trach Collar 5.00 28 T-Piece 01/23/17 22:13 100 T-piece 28 01/23/17 20:00 97.9 91 20 140/63 97 I/O 01/23/17 01/23/17 01/23/17 01/24/17 01/24/17 01/24/17 07:00 15:00 23:00 07:00 15:00 23:00 Intake Total 625 ml 1336 ml Output Total 300 ml 400 ml 750 ml 250 ml Balance 325 ml -400 ml 586 ml -250 ml Tube Feeding 625 ml 1336 ml Output Urine Total 300 ml 400 ml 750 ml 250 ml # Bowel Movements 2 1 1 1 Result Diagram: 01/24/1782801/24/17 0829 Objective Remarks GENERAL: MBMN WF, on Trach collar SKIN: Warm and dry. HEAD: Normocephalic. EYES: No scleral icterus. No injection or drainage. NECK: Supple, trachea midline. No JVD or lymphadenopathy. has trach CARDIOVASCULAR: Regular rate and rhythm without murmurs, gallops, or rubs. RESPIRATORY: Breath sounds equal bilaterally. No accessory muscle use. GASTROINTESTINAL: Abdomen soft, non-tender, nondistended. has PEG MUSCULOSKELETAL: No cyanosis, or edema. BACK: Nontender without obvious deformity. No CVA tenderness. A/P Assessment and Plan RF, S/P Trach CVA Arango arango disease CAD COPD SZ disorder PLAN: Aerosol nebs Cont trach collar supplement 02 Cont TF DW RN Trach suction prn. Levsin 0.125 mg q 8 hrs Vernon Marx MD Jan 24, 2017 18:29
[2017-01-25] VITALS (10 sets, daily range): BP systolic 109–143; BP diastolic 60–92; PULSE 88–109; RESP 19–26; TEMP 97.2–99.2; O2SAT 91–100
[2017-01-25] MEDS: INSULIN NovoLIN REGULAR SUPPLEMENTAL SCALE SQ SCH ×4 (02:00→20:00)
[2017-01-25] MEDS: CHLORHEXIDINE GLUCONATE 2 % 1 PACK (2 CLOTHS) TOP SCH (04:00)
[2017-01-25] MEDS: FREE WATER G-TUBE SCH ×4 (06:00→17:14)
[2017-01-25] MEDS: HYOSCYAMINE 0.125 MG TAB PO SCH ×3 (06:14→22:00)
[2017-01-25] MEDS: levETIRAcetam 500 MG/5 ML UDC NG SCH ×2 (08:58→22:46)
[2017-01-25] MEDS: BROMOCRIPTINE MESYLATE 2.5 MG TAB OG-TUBE SCH ×2 (08:58→22:46)
[2017-01-25] MEDS: FAMOTIDINE 20 MG TAB NG SCH ×2 (08:59→22:46)
[2017-01-25] MEDS: FOLIC ACID 1 MG TAB OG-TUBE SCH (09:00)
[2017-01-25] MEDS: ASPIRIN 81 MG CHEW TAB NG SCH (09:00)
[2017-01-25] MEDS: SODIUM CHLORIDE 0.9% FLUSH 10 ML FLUSH IV FLUSH SCH ×2 (09:00→22:46)
[2017-01-25] MEDS: ATORVASTATIN 40 MG TAB PO SCH (09:00)
[2017-01-25] MEDS: COLLAGENASE OINT 30 GM TUBE TOPICAL SCH (09:00)
[2017-01-25] MEDS: carBAMazepine SUSP 200 MG/10 ML UDC PEG SCH ×2 (09:01→22:46)
[2017-01-25] MEDS: LACTULOSE SYRUP 20 GM/30 ML CUP PO SCH ×2 (09:11→22:46)
[2017-01-25] MEDS: CHLORHEXIDINE 0.12% (ORAL KIT) 15 ML CUP MT SCH ×2 (09:12→22:47)
[2017-01-25] MEDS: JUVEN POWDER 1 PACK G-TUBE SCH ×2 (09:12→21:00)
--- NOTE | 2017-01-25 09:28 | HHI.PR ---
Subjective Remarks Follow up on patient with bilateral frontal CVA, Moyamoya disease, seizure d/o, COPD, multilobar pneumonia and acute respiratory failure currently on T piece. Patient remains nonverbal. She does not follow any commands. Does open her eyes to voice command but only briefly. Patient does not appear to be in any acute distress. No issues with diarrhea or constipation per nursing staff. Objective Vitals Vital Signs Date Time Temp Pulse Resp B/P Pulse Ox O2 Delivery O2 Flow Rate FiO2 01/25/17 08:26 97.2 96 22 138/88 99 01/25/17 05:27 99.2 88 26 109/60 91 01/25/17 00:21 97.6 109 24 121/70 97 01/25/17 00:00 97 T-Piece 5.00 28 01/24/17 23:00 98 01/24/17 20:19 98.2 94 24 128/77 95 01/24/17 16:25 99.7 88 22 120/64 95 01/24/17 12:28 98.2 97 22 126/86 99 01/24/17 09:15 98 T-piece 28 01/24/17 09:15 97 T-piece 28 I/O 01/24/17 01/24/17 01/24/17 01/25/17 01/25/17 01/25/17 07:00 15:00 23:00 07:00 15:00 23:00 Intake Total 1336 ml 1086 ml Output Total 750 ml 250 ml 550 ml Balance 586 ml -250 ml 536 ml Tube Feeding 1336 ml 1086 ml Output Urine Total 750 ml 250 ml 550 ml # Bowel Movements 1 1 1 Result Diagram: 01/24/17 0829 01/24/17 0829 Imaging Last Impressions Chest X-Ray 01/09/17 0000 Signed Impressions: Service Date/Time: Monday, January 09, 2017 11:56 - CONCLUSION: Mild bilateral pulmonary vasculature indistinctness suggesting pulmonary vascular congestion/mild pulmonary edema. Sami Mccarthy MD Brain MRI 01/06/17 0000 Signed Impressions: Service Date/Time: January 14:19 - CONCLUSION: Continued evolutionary changes of large bilateral frontal lobe infarcts. Sami Mccarthy MD Abdomen X-Ray 11/26/16 0000 Signed Impressions: Service Date/Time: Saturday, November 26, 2016 10:18 - CONCLUSION: Distended stomach otherwise nonspecific abdomen. Jackson Murillo MD Objective Remarks GENERAL: WDWN female, lying in hospital bed, on trach collar. Eyes open on verbal commands but only briefly. Does not respond to any other verbal commands. Nonverbal. SKIN: Warm and dry. HEAD: Normocephalic. EYES: No scleral icterus. No injection or drainage. NECK: Supple, trachea midline. No JVD or lymphadenopathy. CARDIOVASCULAR: Regular rhythm, tachycardic without murmurs, gallops, or rubs. RESPIRATORY: s/p tracheostomy. Breath sounds equal bilaterally. No accessory muscle use. GASTROINTESTINAL: Abdomen soft, non-tender, nondistended. PEG in place. MUSCULOSKELETAL: No cyanosis, or edema. Procedures 11/24/2016 Percutaneous tracheostomy. 11/18/2016 Moderate encephalopathy with suggestion of left temporal region cortical irritability. No active seizures. Clinical correlation. Medications and IVs Current Medications Medications (Trade) Dose Ordered Sig/Ora Route Start Time Stop Time Status Last Admin (Peridex 0.12% Liq) 15 ml BID@08,20 MT 11/18/16 08:00 01/24/17 20:00 (NS Flush) 2 ml BID IV FLUSH 11/18/16 09:00 01/24/17 22:21 (Tylenol) 650 mg Q6H PRN PO 11/18/16 03:30 01/01/17 16:01 ([place] 5-325 Mg) 1 tab Q4H PRN PO 11/18/16 03:30 01/17/17 09:16 (Morphine Inj) 2 mg Q2H PRN IV 11/18/16 03:30 01/16/17 08:23 (Zofran Inj) 4 mg Q6H PRN IV 11/18/16 03:30 11/26/16 03:20 Miscellaneous Information 1 Q361D XX 11/18/16 03:30 11/18/16 03:30 (Chlorhexidine 2% Cloth) Taper DAILY@04 TOP 11/18/16 04:00 11/14/17 03:59 01/17/17 04:00 (Chlorhexidine 2% Cloth) 3 pack UNSCH PRN TOP 11/18/16 03:30 (Aspirin Chew) 324 mg DAILY NG 11/18/16 09:00 01/24/17 09:42 (Lipitor) 40 mg DAILY PO 11/18/16 09:00 01/24/17 09:48 (Parlodel) 2.5 mg Q12HR OG-TUBE 11/18/16 09:00 01/24/17 22:20 (Folate) 1 mg DAILY OG-TUBE 11/18/16 09:00 01/24/17 09:42 (Senna Liq) 8.8 mg BID PO 11/19/16 21:00 Hold 01/18/17 08:54 (D50w (Vial) Inj) 25 ml UNSCH PRN IV PUSH 11/22/16 08:00 (Glucagon Inj) 1 mg UNSCH PRN OTHER 11/22/16 08:00 (NovoLIN R SUPPLEMENTAL SCALE) 1 Q6H SQ 11/22/16 08:00 01/25/17 02:00 (Lopressor Inj) 5 mg Q6H PRN IV PUSH 11/23/16 22:45 01/12/17 03:20 (Dulcolax Supp) 10 mg DAILY PRN RECTAL 12/14/16 15:45 (Pepcid) 20 mg BID NG 12/21/16 21:00 01/24/17 22:19 (Keppra Liq) 1,500 mg Q12HR NG 12/21/16 21:00 01/24/17 22:18 (Levsin Liq) 0.125 mg Q4H PRN PO 12/28/16 07:15 01/24/17 01:45 (Santyl Oint) 1 applic DAILY TOPICAL 01/04/17 11:30 01/24/17 09:00 (TEGretol LIQ) 200 mg Q12HR PEG 01/06/17 09:00 01/24/17 22:19 (Corby Powder) 1 pack BID G-TUBE 01/13/17 09:00 01/24/17 21:00 (Free Water) 200 ml Q6HR G-TUBE 01/14/17 18:00 01/25/17 06:00 (Levsin) 0.125 mg Q8HR PO 01/19/17 22:00 01/25/17 06:14 (Lactulose Liq) 15 ml BID PO 01/23/17 11:00 01/24/17 22:19 Date of Insertion: Nov 19, 2016 A/P Problem List: (1) 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 Rivas is a 66-year-old female with a history of stroke who was admitted to the [facility] on 11/04/2016 due to difficulty getting her thoughts together. She was found to have multifocal nonhemorrhagic infarctions in the frontal and parietal regions. She was initially awake and following commands with weakness of RLE and some aphasia. She was transferred to [facility] where he had an cerebral angiogram consistent with moyamoya. There were plans to perform extracranial/intracranial bypass. However she had a seizure and ended up being intubated for status either 11/09 or 11/10.. She was found to have a new right frontal infarct area and she was started on Dilantin and Keppra and it was felt that she would not be a candidate for intervention. She has been intubated 9-10 days and apparently she has been tolerating C Pap trials to some extent but mental status prevents extubation. Treating team was discussing with family trach/PEG. Apparently family requested transfer back to [place] because they live locally here and wanted her closer to home. Patient remained under critical care medicine until 12/24/2016. - Bilateral frontal CVA - Moyamoya - confirmed by arteriogram at [facility] October 2016. - Seizure disorder -Neuro following -Continue Keppra - obtain level -Continue Tegretol -Follow for seizure activity -Daily Aspirin -Bromocriptine -Tegretol level WNL. Ammonia level elevated-reinstituted pts. order of lactulose 15 ml q 12 hrs - COPD - Acute respiratory failure - currently on T piece. - Multilobar pneumonia Status post tracheostomy on 11/24/2016. Pulmonary following. DuoNeb when necessary - Multilobar pneumonia -Tobramycin provided as treatment, course ended on 01/20/17. -ID following - Leukocytosis -white count 9.0 --> 12.7 -Tmax 99.2 -Obtain UA and CXR -repeat labs in am - Hyperglycemia -BS 170 -continue ISS -Last A1c 11/04/16 was 5.2 - Nutrition - continue Jevity 1.5 through PEG tube. - Sacral/Coccyx wound -Specialty bed ordered -Wound care following - Anemia, microcytic, hypochromic -appears stable -iron studies ordered -monitor intermittently Full code. SCDs. Discussed with nursing staff, patient and Dr. Clayton. Tova March Jan 25, 2017 09:28 Tova March Jan 25, 2017 09:28
--- NOTE | 2017-01-25 13:13 | RADRPT ---
EXAM DATE/TIME: 01/25/2017 12:34 [place] COMPARISON: CHEST SINGLE AP, January 09, 2017, 11:56. INDICATIONS : Patient is short of breath. MEDICAL HISTORY : Hypertension. Seizures. SURGICAL HISTORY : None. ENCOUNTER: Subsequent ACUITY: 3 days PAIN SCORE: 0/10 LOCATION: Bilateral chest FINDINGS: The patient's tracheostomy is in good position. The heart is mildly enlarged. The appearance of the p ulmonary parenchyma is stable compared to previous exam. No definite focal or segmental pneumonia is identified. The visualized bony structures are intact. CONCLUSION: 1. Tracheostomy in satisfactory position. The lungs appear clear. Aramis Frost MD on January 25, 2017 at 13:07 Board Certified Radiologist. This report was verified electronically.
[2017-01-25 15:35] LABS: TRANSFERRIN IRON PROFILE 219 MG/DL (200-360)
[2017-01-25 15:38] LABS: FERRITIN 346 NG/ML (8-252)
--- NOTE | 2017-01-25 18:14 | HHI.PR ---
Subjective Remarks 66 YOWF with Rf, s/p trach H/O CVA,Aranog Arango disease On trach collar No fever. Has Moderate amount of trach secretions Objective Vital Signs Vital Signs Date Time Temp Pulse Resp B/P Pulse Ox O2 Delivery O2 Flow Rate FiO2 01/25/17 16:11 97.7 90 24 122/72 96 01/25/17 12:57 97.4 102 24 143/92 98 01/25/17 09:26 99 T-piece 5.00 28 01/25/17 09:19 100 T-piece 5.00 28 01/25/17 08:26 97.2 96 22 138/88 99 01/25/17 05:27 99.2 88 26 109/60 91 01/25/17 00:21 97.6 109 24 121/70 97 01/25/17 00:00 97 T-Piece 5.00 28 01/24/17 23:00 98 01/24/17 20:19 98.2 94 24 128/77 95 I/O 01/24/17 01/24/17 01/24/17 01/25/17 01/25/17 01/25/17 07:00 15:00 23:00 07:00 15:00 23:00 Intake Total 1336 ml 1086 ml Output Total 750 ml 250 ml 550 ml 250 ml Balance 586 ml -250 ml 536 ml -250 ml Tube Feeding 1336 ml 1086 ml Output Urine Total 750 ml 250 ml 550 ml 250 ml # Bowel Movements 1 1 1 2 Result Diagram: 01/24/1782801/24/17 0829 Objective Remarks GENERAL: MBMN WF, on Trach collar SKIN: Warm and dry. HEAD: Normocephalic. EYES: No scleral icterus. No injection or drainage. NECK: Supple, trachea midline. No JVD or lymphadenopathy. has trach CARDIOVASCULAR: Regular rate and rhythm without murmurs, gallops, or rubs. RESPIRATORY: Breath sounds equal bilaterally. No accessory muscle use. GASTROINTESTINAL: Abdomen soft, non-tender, nondistended. has PEG MUSCULOSKELETAL: No cyanosis, or edema. BACK: Nontender without obvious deformity. No CVA tenderness. A/P Assessment and Plan RF, S/P Trach CVA Arango arango disease CAD COPD SZ disorder PLAN: Aerosol nebs Cont trach collar supplement 02 Cont TF Trach suction prn. Levsin 0.125 mg q 8 hrs Vernon Marx MD Jan 25, 2017 18:14
[2017-01-25 19:04] LABS: BLOOD, URINE NEG (NEG); GLUCOSE,URINE NEG (NEG); KETONE, URINE NEG (NEG); MUCUS URINE FEW /lpf (OCC); NITRITE,URINE NEG (NEG); PH, URINE 5.5 (5.0-8.5); URINE COLOR DARK-YELLOW (YELLW/STRAW)
[2017-01-25 19:05] LABS: COMMENT (UR) CATH-CULTURE IND; CULTURE IF INDICATED CATH CULTURE IND
[2017-01-26] VITALS (10 sets, daily range): BP systolic 122–141; BP diastolic 68–93; PULSE 85–98; RESP 19–26; TEMP 95.3–97.5; O2SAT 94–100
[2017-01-26] MEDS: RESP: ALBUTEROL 2.5 MG/3 ML NEB (PRN) INH (00:54)
[2017-01-26] MEDS: INSULIN NovoLIN REGULAR SUPPLEMENTAL SCALE SQ SCH ×4 (02:20→20:00)
[2017-01-26] MEDS: CHLORHEXIDINE GLUCONATE 2 % 1 PACK (2 CLOTHS) TOP SCH (04:00)
[2017-01-26] MEDS: FREE WATER G-TUBE SCH ×4 (06:00→16:25)
[2017-01-26] MEDS: HYOSCYAMINE 0.125 MG TAB PO SCH ×3 (06:07→21:44)
[2017-01-26 07:48] LABS: AUTOMATED NEUTROPHIL # 8.7 TH/MM3 (1.8-7.7); BASOPHIL # 0.1 TH/MM3 (0-0.2); BASOPHIL % 0.7 % (0.0-2.0); EOSINOPHIL # 0.3 TH/MM3 (0-0.4); EOSINOPHIL % 2.6 % (0.0-4.0); HEMATOCRIT 31.2 % (35.0-46.0); HEMO FLAGS DIFF FINAL; LYMPH % 18.7 % (9.0-44.0); LYMPHOCYTE # 2.2 TH/MM3 (1.0-4.8); MEAN CELL VOLUME 79.4 FL (80.0-100.0); MEAN CORPUSCULAR HEMOGLOBIN 25.1 PG (27.0-34.0); MEAN CORPUSCULAR HGB CONC 31.6 % (32.0-36.0); MONO % 4.1 % (0.0-8.0); NEUT % 73.9 % (16.0-70.0); PLATELET COUNT 340 TH/MM3 (150-450); RED BLOOD COUNT 3.93 MIL/MM3 (4.00-5.30); RED CELL DISTRIBUTION WIDTH 19.5 % (11.6-17.2); WHITE BLOOD COUNT 11.7 TH/MM3 (4.0-11.0)
[2017-01-26] MEDS: CHLORHEXIDINE 0.12% (ORAL KIT) 15 ML CUP MT SCH ×2 (08:00→21:57)
[2017-01-26] MEDS: JUVEN POWDER 1 PACK G-TUBE SCH ×2 (09:00→21:00)
[2017-01-26] MEDS: ASPIRIN 81 MG CHEW TAB NG SCH (09:13)
[2017-01-26] MEDS: BROMOCRIPTINE MESYLATE 2.5 MG TAB OG-TUBE SCH ×2 (09:14→21:43)
[2017-01-26] MEDS: FOLIC ACID 1 MG TAB OG-TUBE SCH (09:14)
[2017-01-26] MEDS: FAMOTIDINE 20 MG TAB NG SCH ×2 (09:14→21:44)
[2017-01-26] MEDS: SODIUM CHLORIDE 0.9% FLUSH 10 ML FLUSH IV FLUSH SCH ×2 (09:14→21:44)
[2017-01-26] MEDS: LACTULOSE SYRUP 20 GM/30 ML CUP PO SCH ×2 (09:14→21:43)
[2017-01-26] MEDS: ATORVASTATIN 40 MG TAB PO SCH (09:15)
[2017-01-26] MEDS: carBAMazepine SUSP 200 MG/10 ML UDC PEG SCH ×2 (09:15→21:43)
[2017-01-26] MEDS: levETIRAcetam 500 MG/5 ML UDC NG SCH ×2 (09:15→21:43)
[2017-01-26] MEDS: COLLAGENASE OINT 30 GM TUBE TOPICAL SCH (09:16)
[2017-01-26] MEDS: cefTRIAXone INJ 1,000 MG in SODIUM CHLORIDE 0.9% INJ 100 ML IV SCH (09:22)
--- NOTE | 2017-01-26 09:50 | HHI.PR ---
Subjective Remarks Follow up on patient with bilateral frontal CVA, Moyamoya disease, seizure d/o, COPD, multilobar pneumonia and acute respiratory failure currently on T piece. Patient seen and examined today. She remains nonverbal. Opens her eyes to voice but does not track. Does not follow commands. She does not appear to be in any distress at this time. UA indicative of UTI. Objective Vitals Vital Signs Date Time Temp Pulse Resp B/P Pulse Ox O2 Delivery O2 Flow Rate FiO2 01/26/17 08:52 91 01/26/17 08:18 97.5 98 24 141/93 94 01/26/17 04:26 97.1 85 19 136/79 100 01/26/17 00:08 97.4 94 19 135/82 100 01/26/17 00:00 98 T-Piece 5.00 28 01/25/17 22:01 100 T-piece 28 01/25/17 20:19 98.3 97 19 134/85 98 01/25/17 16:11 97.7 90 24 122/72 96 01/25/17 12:57 97.4 102 24 143/92 98 I/O 01/25/17 01/25/17 01/25/17 01/26/17 01/26/17 01/26/17 07:00 15:00 23:00 07:00 15:00 23:00 Intake Total 1086 ml 1092 ml Output Total 550 ml 250 ml 550 ml Balance 536 ml -250 ml 1092 ml -550 ml Tube Feeding 1086 ml 1092 ml Output Urine Total 550 ml 250 ml 550 ml # Bowel Movements 1 2 2 Result Diagram: 01/26/17 0644 01/24/17 0829 Imaging Last Impressions Chest X-Ray 01/25/17 0000 Signed Impressions: Service Date/Time: Wednesday, January 25, 2017 12:34 - CONCLUSION: 1. Tracheostomy in satisfactory position. The lungs appear clear. Aramis Frost MD Brain MRI 01/06/17 0000 Signed Impressions: Service Date/Time: January 14:19 - CONCLUSION: Continued evolutionary changes of large bilateral frontal lobe infarcts. Sami Mccarthy MD Abdomen X-Ray 11/26/16 0000 Signed Impressions: Service Date/Time: Saturday, November 26, 2016 10:18 - CONCLUSION: Distended stomach otherwise nonspecific abdomen. K. David Shamlou, MD Objective Remarks GENERAL: WDWN female, lying in hospital bed. T piece in place. Nonverbal. Eyes open on verbal commands but only briefly. Does not respond to any other verbal commands. SKIN: Warm and dry. HEAD: Normocephalic. EYES: No scleral icterus. No injection or drainage. NECK: Supple, trachea midline. No JVD or lymphadenopathy. CARDIOVASCULAR: Regular rhythm, tachycardic without murmurs, gallops, or rubs. RESPIRATORY: s/p tracheostomy. Breath sounds equal bilaterally. No accessory muscle use. GASTROINTESTINAL: Abdomen soft, non-tender, nondistended. PEG in place. MUSCULOSKELETAL: No cyanosis, or edema. Procedures 11/24/2016 Percutaneous tracheostomy. 11/18/2016 Moderate encephalopathy with suggestion of left temporal region cortical irritability. No active seizures. Clinical correlation. Medications and IVs Current Medications Medications (Trade) Dose Ordered Sig/Ora Route Start Time Stop Time Status Last Admin (Peridex 0.12% Liq) 15 ml BID@08,20 MT 11/18/16 08:00 01/26/17 08:00 (NS Flush) 2 ml BID IV FLUSH 11/18/16 09:00 01/25/17 22:46 (Tylenol) 650 mg Q6H PRN PO 11/18/16 03:30 01/01/17 16:01 ([place] 5-325 Mg) 1 tab Q4H PRN PO 11/18/16 03:30 01/17/17 09:16 (Morphine Inj) 2 mg Q2H PRN IV 11/18/16 03:30 01/16/17 08:23 (Zofran Inj) 4 mg Q6H PRN IV 11/18/16 03:30 11/26/16 03:20 Miscellaneous Information 1 Q361D XX 11/18/16 03:30 11/18/16 03:30 (Chlorhexidine 2% Cloth) Taper DAILY@04 TOP 11/18/16 04:00 11/14/17 03:59 01/17/17 04:00 (Chlorhexidine 2% Cloth) 3 pack UNSCH PRN TOP 11/18/16 03:30 (Aspirin Chew) 324 mg DAILY NG 11/18/16 09:00 01/25/17 09:00 (Lipitor) 40 mg DAILY PO 11/18/16 09:00 01/25/17 09:00 (Parlodel) 2.5 mg Q12HR OG-TUBE 11/18/16 09:00 01/25/17 22:46 (Folate) 1 mg DAILY OG-TUBE 11/18/16 09:00 01/25/17 09:00 (Senna Liq) 8.8 mg BID PO 11/19/16 21:00 Hold 01/18/17 08:54 (D50w (Vial) Inj) 25 ml UNSCH PRN IV PUSH 11/22/16 08:00 (Glucagon Inj) 1 mg UNSCH PRN OTHER 11/22/16 08:00 (NovoLIN R SUPPLEMENTAL SCALE) 1 Q6H SQ 11/22/16 08:00 01/26/17 02:20 (Lopressor Inj) 5 mg Q6H PRN IV PUSH 11/23/16 22:45 01/12/17 03:20 (Dulcolax Supp) 10 mg DAILY PRN RECTAL 12/14/16 15:45 (Pepcid) 20 mg BID NG 12/21/16 21:00 01/25/17 22:46 (Keppra Liq) 1,500 mg Q12HR NG 12/21/16 21:00 01/25/17 22:46 (Levsin Liq) 0.125 mg Q4H PRN PO 12/28/16 07:15 01/24/17 01:45 (Santyl Oint) 1 applic DAILY TOPICAL 01/04/17 11:30 01/25/17 09:00 (TEGretol LIQ) 200 mg Q12HR PEG 01/06/17 09:00 01/25/17 22:46 (Corby Powder) 1 pack BID G-TUBE 01/13/17 09:00 01/25/17 21:00 (Free Water) 200 ml Q6HR G-TUBE 01/14/17 18:00 01/26/17 06:00 (Levsin) 0.125 mg Q8HR PO 01/19/17 22:00 01/26/17 06:07 Lactulose 15 ml 15 ml BID PO 01/23/17 11:00 01/25/17 22:46 (Rocephin Inj/NS Inj) 100 ml @ 200 mls/hr Q24H IV 01/26/17 08:00 02/05/17 07:59 Date of Insertion: Nov 19, 2016 A/P Problem List: (1) 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 Rivsa is a 66-year-old female with a history of stroke who was admitted to the [facility] on 11/04/2016 due to difficulty getting her thoughts together. She was found to have multifocal nonhemorrhagic infarctions in the frontal and parietal regions. She was initially awake and following commands with weakness of RLE and some aphasia. She was transferred to [facility] where he had an cerebral angiogram consistent with moyamoya. There were plans to perform extracranial/intracranial bypass. However she had a seizure and ended up being intubated for status either 4/ or 4/.. She was found to have a new right frontal infarct area and she was started on Dilantin and Keppra and it was felt that she would not be a candidate for intervention. She has been intubated 9-10 days and apparently she has been tolerating C Pap trials to some extent but mental status prevents extubation. Treating team was discussing with family trach/PEG. Apparently family requested transfer back to [place] because they live locally here and wanted her closer to home. Patient remained under critical care medicine until 12/24/2016. - Bilateral frontal CVA - Moyamoya - confirmed by arteriogram at [facility] October 2016. - Seizure disorder -Neuro following -Continue Keppra - level pending -Continue Tegretol -Follow for seizure activity -Daily Aspirin -Bromocriptine -Tegretol level WNL. Ammonia level elevated-reinstituted pts. order of lactulose 15 ml q 12 hrs - COPD - Acute respiratory failure - currently on T piece. - Multilobar pneumonia -Status post tracheostomy on 11/24/2016. Pulmonary following. -DuoNeb when necessary - Multilobar pneumonia -Tobramycin provided as treatment, course ended on 01/20/17. -ID following -CXR 01/25/17 personally reviewed, shows no acute cardiopulmonary disease - Leukocytosis -white count 9.0 --> 12.7 --> 11.7 -patient is afebrile -CXR negative. UA indicative of UTI with proteinuria, moderate leukocytes, 10 RBC and 29 WBCs. Begin Ceftriaxone and follow up on culture results. - Hyperglycemia -BS 160 -continue ISS -Last A1c 11/04/16 was 5.2 - Nutrition - continue Jevity 1.5 through PEG tube. - Sacral/Coccyx wound -Specialty bed ordered -Wound care following - Anemia, microcytic, hypochromic -hemoglobin 10.8 --> 9.9 -iron studies-iron 33, TIBC 307, % sat 10.8, ferritin 346. begin iron supplementation. -check stool hemoccult -monitor intermittently Full code. SCDs. Discussed with nursing staff, patient and Dr. Clayton. Tova March Jan 26, 2017 09:50
--- NOTE | 2017-01-26 19:16 | HHI.PR ---
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 Trach secretions decreased Objective Vital Signs Vital Signs Date Time Temp Pulse Resp B/P Pulse Ox O2 Delivery O2 Flow Rate FiO2 01/26/17 16:11 95.3 94 24 122/76 97 01/26/17 15:56 99 T-piece 4.00 28 01/26/17 15:56 99 T-piece 28 01/26/17 12:41 96.1 95 26 139/83 100 01/26/17 09:30 100 T-Piece 5.00 28 01/26/17 08:52 91 01/26/17 08:18 97.5 98 24 141/93 94 01/26/17 04:26 97.1 85 19 136/79 100 01/26/17 00:08 97.4 94 19 135/82 100 01/26/17 00:00 98 T-Piece 5.00 28 01/25/17 22:01 100 T-piece 28 01/25/17 20:19 98.3 97 19 134/85 98 I/O 01/25/17 01/25/17 01/25/17 01/26/17 01/26/17 01/26/17 07:00 15:00 23:00 07:00 15:00 23:00 Intake Total 1086 ml 1092 ml 300 ml 800 ml Output Total 550 ml 250 ml 550 ml Balance 536 ml -250 ml 1092 ml -550 ml 300 ml 800 ml IV Total 100 ml Tube Feeding 1086 ml 1092 ml 600 ml Other 200 ml 200 ml Output Urine Total 550 ml 250 ml 550 ml # Bowel Movements 1 2 2 Result Diagram: 01/26/17 0644 01/24/17 0829 Objective Remarks GENERAL: MBMN WF, on Trach collar SKIN: Warm and dry. HEAD: Normocephalic. EYES: No scleral icterus. No injection or drainage. NECK: Supple, trachea midline. No JVD or lymphadenopathy. has trach CARDIOVASCULAR: Regular rate and rhythm without murmurs, gallops, or rubs. RESPIRATORY: Breath sounds equal bilaterally. No accessory muscle use. GASTROINTESTINAL: Abdomen soft, non-tender, nondistended. has PEG MUSCULOSKELETAL: No cyanosis, or edema. BACK: Nontender without obvious deformity. No CVA tenderness. A/P Assessment and Plan RF, S/P Trach CVA Arango arango disease CAD COPD SZ disorder PLAN: Aerosol nebs Cont trach collar supplement 02 Cont TF Trach suction prn. Levsin 0.125 mg q 8 hrs Vernon Marx MD Jan 26, 2017 19:16
[2017-01-26] MEDS: FERROUS SULFATE 300 MG /5ML UDC PEG SCH (21:43)
[2017-01-26] MEDS: ASCORBIC ACID 500 MG TAB PEG SCH (21:44)
[2017-01-27] VITALS (10 sets, daily range): BP systolic 112–128; BP diastolic 67–87; PULSE 81–87; RESP 20–22; TEMP 95.3–97.1; O2SAT 99–100
[2017-01-27] MEDS: INSULIN NovoLIN REGULAR SUPPLEMENTAL SCALE SQ SCH ×4 (02:00→20:00)
[2017-01-27] MEDS: CHLORHEXIDINE GLUCONATE 2 % 1 PACK (2 CLOTHS) TOP SCH (04:00)
[2017-01-27] MEDS: FREE WATER G-TUBE SCH ×4 (05:55→16:10)
[2017-01-27] MEDS: HYOSCYAMINE 0.125 MG TAB PO SCH ×3 (05:55→22:06)
[2017-01-27] MEDS: CHLORHEXIDINE 0.12% (ORAL KIT) 15 ML CUP MT SCH ×2 (08:00→22:18)
[2017-01-27] MEDS: COLLAGENASE OINT 30 GM TUBE TOPICAL SCH (09:00)
[2017-01-27] MEDS: JUVEN POWDER 1 PACK G-TUBE SCH ×2 (09:00→23:13)
[2017-01-27] MEDS: SODIUM CHLORIDE 0.9% FLUSH 10 ML FLUSH IV FLUSH SCH ×2 (09:00→22:04)
[2017-01-27] MEDS: LACTULOSE SYRUP 20 GM/30 ML CUP PO SCH ×2 (09:00→22:06)
[2017-01-27] MEDS: FERROUS SULFATE 300 MG /5ML UDC PEG SCH ×2 (09:00→22:05)
[2017-01-27] MEDS: BROMOCRIPTINE MESYLATE 2.5 MG TAB OG-TUBE SCH ×2 (09:28→22:05)
[2017-01-27] MEDS: carBAMazepine SUSP 200 MG/10 ML UDC PEG SCH ×2 (09:28→22:05)
[2017-01-27] MEDS: levETIRAcetam 500 MG/5 ML UDC NG SCH ×2 (09:28→22:05)
[2017-01-27] MEDS: ASCORBIC ACID 500 MG TAB PEG SCH ×2 (09:28→22:06)
[2017-01-27] MEDS: FAMOTIDINE 20 MG TAB NG SCH ×2 (09:29→22:05)
[2017-01-27] MEDS: FOLIC ACID 1 MG TAB OG-TUBE SCH (09:29)
[2017-01-27] MEDS: ATORVASTATIN 40 MG TAB PO SCH (09:29)
[2017-01-27] MEDS: ASPIRIN 81 MG CHEW TAB NG SCH (09:29)
[2017-01-27] MEDS: cefTRIAXone INJ 1,000 MG in SODIUM CHLORIDE 0.9% INJ 100 ML IV SCH (09:30)
--- NOTE | 2017-01-27 09:43 | HHI.PR ---
Subjective Remarks Follow up on patient with bilateral frontal CVA, Moyamoya disease, seizure d/o, COPD, multilobar pneumonia and acute respiratory failure currently on T piece. Patient seen and examined today. Patient lying in hospital bed with eyes closed but easily open to voice. Does not track. Does not follow any commands. Discussed with nursing staff - only issue reported is occasional drop in O2 sats for brief periods. Objective Vitals Vital Signs Date Time Temp Pulse Resp B/P Pulse Ox O2 Delivery O2 Flow Rate FiO2 01/27/17 08:43 95.5 81 20 120/69 100 01/27/17 04:00 97.1 82 22 122/67 99 01/27/17 00:00 96.9 87 22 112/73 100 01/26/17 23:25 99 T-Piece 5.00 28 01/26/17 23:00 95 01/26/17 21:43 100 T-piece 5.00 28 01/26/17 20:00 96.5 88 22 125/68 100 01/26/17 16:11 95.3 94 24 122/76 97 01/26/17 15:56 99 T-piece 4.00 28 01/26/17 15:56 99 T-piece 28 01/26/17 12:41 96.1 95 26 139/83 100 I/O 01/26/17 01/26/17 01/26/17 01/27/17 01/27/17 01/27/17 07:00 15:00 23:00 07:00 15:00 23:00 Intake Total 300 ml 800 ml Output Total 550 ml 200 ml 400 ml Balance -550 ml 300 ml 600 ml -400 ml IV Total 100 ml Tube Feeding 600 ml Other 200 ml 200 ml Output Urine Total 550 ml 200 ml 400 ml # Bowel Movements 2 0 0 Result Diagram: 01/26/17 0644 01/24/17 0829 Imaging Last Impressions Chest X-Ray 01/25/17 0000 Signed Impressions: Service Date/Time: Wednesday, January 25, 2017 12:34 - CONCLUSION: 1. Tracheostomy in satisfactory position. The lungs appear clear. Aramis Frost MD Brain MRI 01/06/17 0000 Signed Impressions: Service Date/Time: January 14:19 - CONCLUSION: Continued evolutionary changes of large bilateral frontal lobe infarcts. Sami Mccarthy MD Abdomen X-Ray 11/26/16 0000 Signed Impressions: Service Date/Time: Saturday, November 26, 2016 10:18 - CONCLUSION: Distended stomach otherwise nonspecific abdomen. K. David Murillo MD Objective Remarks GENERAL: WDWN female, lying in hospital bed. T piece in place. Remains nonverbal. Eyes open on verbal commands but only briefly. Does not track. Does not respond to any verbal commands. SKIN: Warm and dry. HEAD: Normocephalic. No scleral icterus. No injection or drainage. MMM. CARDIOVASCULAR: Regular rate and rhythm without murmurs, gallops, or rubs. RESPIRATORY: s/p tracheostomy. Breath sounds equal bilaterally. No accessory muscle use. GASTROINTESTINAL: Abdomen soft, non-tender, nondistended. PEG in place. MUSCULOSKELETAL: No cyanosis, or edema. Procedures 11/24/2016 Percutaneous tracheostomy. 11/18/2016 Moderate encephalopathy with suggestion of left temporal region cortical irritability. No active seizures. Clinical correlation. Medications and IVs Current Medications Medications (Trade) Dose Ordered Sig/Ora Route Start Time Stop Time Status Last Admin (Peridex 0.12% Liq) 15 ml BID@08,20 MT 11/18/16 08:00 01/26/17 21:57 (NS Flush) 2 ml BID IV FLUSH 11/18/16 09:00 01/27/17 09:00 (Tylenol) 650 mg Q6H PRN PO 11/18/16 03:30 01/01/17 16:01 (Tuttle 5-325 Mg) 1 tab Q4H PRN PO 11/18/16 03:30 01/17/17 09:16 (Morphine Inj) 2 mg Q2H PRN IV 11/18/16 03:30 01/16/17 08:23 (Zofran Inj) 4 mg Q6H PRN IV 11/18/16 03:30 11/26/16 03:20 Miscellaneous Information 1 Q361D XX 11/18/16 03:30 11/18/16 03:30 (Chlorhexidine 2% Cloth) Taper DAILY@04 TOP 11/18/16 04:00 11/14/17 03:59 01/17/17 04:00 (Chlorhexidine 2% Cloth) 3 pack UNSCH PRN TOP 11/18/16 03:30 (Aspirin Chew) 324 mg DAILY NG 11/18/16 09:00 01/27/17 09:29 (Lipitor) 40 mg DAILY PO 11/18/16 09:00 01/27/17 09:29 (Parlodel) 2.5 mg Q12HR OG-TUBE 11/18/16 09:00 01/27/17 09:28 (Folate) 1 mg DAILY OG-TUBE 11/18/16 09:00 01/27/17 09:29 (Senna Liq) 8.8 mg BID PO 11/19/16 21:00 Hold 01/18/17 08:54 (D50w (Vial) Inj) 25 ml UNSCH PRN IV PUSH 11/22/16 08:00 (Glucagon Inj) 1 mg UNSCH PRN OTHER 11/22/16 08:00 (NovoLIN R SUPPLEMENTAL SCALE) 1 Q6H SQ 11/22/16 08:00 01/26/17 20:00 (Lopressor Inj) 5 mg Q6H PRN IV PUSH 11/23/16 22:45 01/12/17 03:20 (Dulcolax Supp) 10 mg DAILY PRN RECTAL 12/14/16 15:45 (Pepcid) 20 mg BID NG 12/21/16 21:00 01/27/17 09:29 (Keppra Liq) 1,500 mg Q12HR NG 12/21/16 21:00 01/27/17 09:28 (Levsin Liq) 0.125 mg Q4H PRN PO 12/28/16 07:15 01/24/17 01:45 (Santyl Oint) 1 applic DAILY TOPICAL 01/04/17 11:30 01/27/17 09:00 (TEGretol LIQ) 200 mg Q12HR PEG 01/06/17 09:00 01/27/17 09:28 (Corby Powder) 1 pack BID G-TUBE 01/13/17 09:00 01/27/17 09:00 (Free Water) 200 ml Q6HR G-TUBE 01/14/17 18:00 01/27/17 05:55 (Levsin) 0.125 mg Q8HR PO 01/19/17 22:00 01/27/17 05:55 Lactulose 15 ml 15 ml BID PO 01/23/17 11:00 01/26/17 21:43 (Rocephin Inj/NS Inj) 100 ml @ 200 mls/hr Q24H IV 01/26/17 08:00 02/05/17 07:59 01/27/17 09:30 (Ferrous Sulfate Liq) 300 mg BID PEG 01/26/17 21:00 01/27/17 09:00 (Vitamin C) 500 mg BID PEG 01/26/17 21:00 01/27/17 09:28 Date of Insertion: Nov 19, 2016 A/P Problem List: (1) 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 Rivas is a 66-year-old female with a history of stroke who was admitted to the [facility] on 11/04/2016 due to difficulty getting her thoughts together. She was found to have multifocal nonhemorrhagic infarctions in the frontal and parietal regions. She was initially awake and following commands with weakness of RLE and some aphasia. She was transferred to [facility] where he had an cerebral angiogram consistent with moyamoya. There were plans to perform extracranial/intracranial bypass. However she had a seizure and ended up being intubated for status either 4/4 or 4/5.. She was found to have a new right frontal infarct area and she was started on Dilantin and Keppra and it was felt that she would not be a candidate for intervention. She has been intubated 9-10 days and apparently she has been tolerating C Pap trials to some extent but mental status prevents extubation. Treating team was discussing with family trach/PEG. Apparently family requested transfer back to [place] because they live locally here and wanted her closer to home. Patient remained under critical care medicine until 12/24/2016. - Bilateral frontal CVA - Moyamoya - confirmed by arteriogram at [facility] October 2016. - Seizure disorder -Neuro following -Continue Keppra - level 38.3 -Continue Tegretol -Follow for seizure activity - no recent seizure activity noted -continue Aspirin daily -Continue Bromocriptine -Tegretol level WNL. Ammonia level elevated-reinstituted pts. order of lactulose 15 ml q 12 hrs - on hold for episodes of diarrhea. Recheck ammonia level in am. - COPD - Acute respiratory failure - currently on T piece. - Multilobar pneumonia -Status post tracheostomy on 11/24/2016. Pulmonary following. -DuoNeb when necessary -Continue Levsin - Multilobar pneumonia -Tobramycin provided as treatment, course ended on 01/20/17. -ID following but signed off -CXR 01/25/17 personally reviewed, shows no acute cardiopulmonary disease - Leukocytosis -white count 9.0 --> 12.7 --> 11.7 -patient is afebrile -CXR negative. -repeat lab in am to monitor trend - Suspect UTI -UA indicative of UTI with proteinuria, moderate leukocytes, 10 RBC and 29 WBCs. -follow up urine culture shows no growth x 48hrs. -d/c Ceftriaxone - Hyperglycemia -BS 145 -continue ISS -Last A1c 11/04/16 was 5.2 - Nutrition - continue Jevity 1.5 through PEG tube. - Sacral/Coccyx wound -Specialty bed ordered -Wound care following -continue frequent turning/off loading Q2H - Anemia, microcytic, hypochromic -hemoglobin 10.8 --> 9.9 -iron studies-iron 33, TIBC 307, % sat 10.8, ferritin 346. Continue iron supplementation. -stool hemoccult negative -monitor intermittently Full code. SCDs. Discussed with nursing staff, patient and Dr. Clayton. Tova March Jan 27, 2017 09:43
--- NOTE | 2017-01-27 16:06 | PD.WCN.NOT ---
Wound Consult Description: Reconsulted for "WOUND MANAGEMENT of sacral/coccyx wound" per MADISYN Naqvi Communicated with: Wolf Gunderson RN, PA Recommendation: Sacrum, Right buttock, Right ischium- Apply Single layer Xeroform over open wound beds. Prep periwounds with Cavilon skin prep. Cover Xeroform with bordered gauze dressing. Change dressings EVERY OTHER DAY and PRN for dislodgement or soiling. Additional Information: Patient was seen on for re-evaluation of patient known to staff writer from [facility]. Patient was positioned to her right side for assessment. Bordered gauze dressings removed from all wounds prior to bath and transferring to specialty bed. Sacrum wound presents as a pressure related full thickness skinloss measuring 3.3cm x 3.3cm x 0.1cm with ~60% fascia, ~20% purple discolored tissue, and ~20% red non granulating tissue indicating a Stage IV pressure injury. Periwound is blanchable erythema. There is no active drainage and no odor noted at this time. Wound was cleansed with NS and Santyl ointment was applied to gauze dressing and secured with bordered gauze as ordered. Right buttock wound measures 3cm x 2.5cm x 0.1cm with ~80% red non granulating tissue and 20% yellow adipose tissue noted in wound bed indicating full thickness skinloss (Stage III) that was previously a DTI opening to partial thickness skinloss. Wound is measuring smaller than when last assessed and no longer purple and non blanching discoloration. Wound was cleansed with NS and gauze, no active drainage noted. Bordered gauze dressing was placed over wound bed. Right ischium wound measures 3.2cm x 2.8cm x 0.1cm of 100% adipose tissue indicating a Stage III pressure injury that was previously a DTI opening to partial thickness skinloss on last assessment by staff writer. Wound was cleansed with NS and gauze, no active drainage noted, no odor noted. Bordered gauze dressing was placed over wound bed. Patient had a BM and was cleansed with a new underpad placed prior to leaving room with SLASHER TENDER HELPER at bedside for assistance with repositioning. Patient is to be transferred to a specialty surface that was ordered (presently outside room). Patient is being followed by wound care team. Stephany Fang [facility] Jan 27, 2017 16:06
--- NOTE | 2017-01-27 18:42 | HHI.PR ---
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 Trach secretions decreased Sleeping Objective Vital Signs Vital Signs Date Time Temp Pulse Resp B/P Pulse Ox O2 Delivery O2 Flow Rate FiO2 01/27/17 16:40 95.8 85 20 116/85 100 01/27/17 13:00 96.1 82 20 123/74 100 01/27/17 10:51 85 01/27/17 10:05 100 T-piece 5.00 28 01/27/17 10:05 100 T-piece 28 01/27/17 09:42 100 T-Piece 5.00 28 01/27/17 08:43 95.5 81 20 120/69 100 01/27/17 04:00 97.1 82 22 122/67 99 01/27/17 00:00 96.9 87 22 112/73 100 01/26/17 23:25 99 T-Piece 5.00 28 01/26/17 23:00 95 01/26/17 21:43 100 T-piece 5.00 28 01/26/17 20:00 96.5 88 22 125/68 100 I/O 01/26/17 01/26/17 01/26/17 01/27/17 01/27/17 01/27/17 07:00 15:00 23:00 07:00 15:00 23:00 Intake Total 300 ml 800 ml Output Total 550 ml 200 ml 400 ml Balance -550 ml 300 ml 600 ml -400 ml IV Total 100 ml Tube Feeding 600 ml Other 200 ml 200 ml Output Urine Total 550 ml 200 ml 400 ml # Bowel Movements 2 0 0 1 Result Diagram: 01/26/17 0644 01/24/17 0829 Objective Remarks GENERAL: MBMN WF, on Trach collar SKIN: Warm and dry. HEAD: Normocephalic. EYES: No scleral icterus. No injection or drainage. NECK: Supple, trachea midline. No JVD or lymphadenopathy. has trach CARDIOVASCULAR: Regular rate and rhythm without murmurs, gallops, or rubs. RESPIRATORY: Breath sounds equal bilaterally. No accessory muscle use. GASTROINTESTINAL: Abdomen soft, non-tender, nondistended. has PEG MUSCULOSKELETAL: No cyanosis, or edema. BACK: Nontender without obvious deformity. No CVA tenderness. A/P Assessment and Plan RF, S/P Trach CVA Arango arango disease CAD COPD SZ disorder PLAN: Aerosol nebs Cont trach collar supplement 02 Cont TF Trach suction prn. Levsin 0.125 mg q 8 hrs Vernon Marx MD Jan 27, 2017 18:42
[2017-01-28] VITALS (10 sets, daily range): BP systolic 112–140; BP diastolic 84–96; PULSE 79–93; RESP 20–24; TEMP 95.2–96.7; O2SAT 95–100
[2017-01-28] MEDS: INSULIN NovoLIN REGULAR SUPPLEMENTAL SCALE SQ SCH ×4 (01:21→22:00)
[2017-01-28] MEDS: CHLORHEXIDINE GLUCONATE 2 % 1 PACK (2 CLOTHS) TOP SCH (04:00)
[2017-01-28] MEDS: FREE WATER G-TUBE SCH ×4 (05:50→17:02)
[2017-01-28] MEDS: HYOSCYAMINE 0.125 MG TAB PO SCH ×3 (05:50→22:22)
[2017-01-28] MEDS: levETIRAcetam 500 MG/5 ML UDC NG SCH ×2 (07:42→22:21)
[2017-01-28] MEDS: FOLIC ACID 1 MG TAB OG-TUBE SCH (07:42)
[2017-01-28] MEDS: CHLORHEXIDINE 0.12% (ORAL KIT) 15 ML CUP MT SCH ×2 (07:42→20:00)
[2017-01-28] MEDS: FERROUS SULFATE 300 MG /5ML UDC PEG SCH ×2 (07:42→22:22)
[2017-01-28] MEDS: JUVEN POWDER 1 PACK G-TUBE SCH ×2 (07:43→21:00)
[2017-01-28] MEDS: LACTULOSE SYRUP 20 GM/30 ML CUP PO SCH ×2 (07:43→22:21)
[2017-01-28] MEDS: ASPIRIN 81 MG CHEW TAB NG SCH (07:43)
[2017-01-28] MEDS: BROMOCRIPTINE MESYLATE 2.5 MG TAB OG-TUBE SCH ×2 (07:43→22:22)
[2017-01-28] MEDS: ASCORBIC ACID 500 MG TAB PEG SCH ×2 (07:43→22:22)
[2017-01-28] MEDS: carBAMazepine SUSP 200 MG/10 ML UDC PEG SCH ×2 (07:43→22:22)
[2017-01-28] MEDS: FAMOTIDINE 20 MG TAB NG SCH ×2 (07:43→22:22)
[2017-01-28] MEDS: SODIUM CHLORIDE 0.9% FLUSH 10 ML FLUSH IV FLUSH SCH ×2 (07:43→22:23)
[2017-01-28] MEDS: ATORVASTATIN 40 MG TAB PO SCH (07:43)
--- NOTE | 2017-01-28 09:05 | HHI.PR ---
Subjective Remarks Follow up on patient with bilateral frontal CVA, Moyamoya disease, seizure d/o, COPD, multilobar pneumonia and acute respiratory failure currently on T piece. Patient seen and examined today. Opens eyes to voice, does not follow commands, will track with eyes. Vitals signs stable overnight. Afebrile. Positive BM noted. Spoke to RN at bedside, no acute events overnight. Objective Vitals Vital Signs Date Time Temp Pulse Resp B/P Pulse Ox O2 Delivery O2 Flow Rate FiO2 01/28/17 08:33 95.7 89 20 140/85 95 01/28/17 07:35 87 01/28/17 07:33 100 T-Piece 5.00 28 01/28/17 04:00 95.4 93 22 140/96 100 01/28/17 00:00 95.2 79 24 118/84 100 01/27/17 22:00 85 01/27/17 21:37 100 T-piece 6.00 28 01/27/17 21:37 100 T-piece 6.00 28 01/27/17 20:00 95.3 85 22 128/87 100 01/27/17 20:00 100 T-Piece 5.00 28 01/27/17 16:40 95.8 85 20 116/85 100 01/27/17 13:00 96.1 82 20 123/74 100 01/27/17 10:51 85 01/27/17 10:05 100 T-piece 5.00 28 01/27/17 10:05 100 T-piece 28 01/27/17 09:42 100 T-Piece 5.00 28 I/O 01/27/17 01/27/17 01/27/17 01/28/17 01/28/17 01/28/17 06:59 14:59 22:59 06:59 14:59 22:59 Output Total 400 ml 400 ml 300 ml Balance -400 ml -400 ml -300 ml Output Urine Total 400 ml 400 ml 300 ml # Bowel Movements 0 2 1 Result Diagram: 01/26/17 0644 01/24/17 0829 Imaging Last Impressions Chest X-Ray 01/25/17 0000 Signed Impressions: Service Date/Time: Wednesday, January 25, 2017 12:34 - CONCLUSION: 1. Tracheostomy in satisfactory position. The lungs appear clear. Aramis Frost MD Brain MRI 01/06/17 0000 Signed Impressions: Service Date/Time: January 14:19 - CONCLUSION: Continued evolutionary changes of large bilateral frontal lobe infarcts. Sami Mccarthy MD Abdomen X-Ray 11/26/16 0000 Signed Impressions: Service Date/Time: Saturday, November 26, 2016 10:18 - CONCLUSION: Distended stomach otherwise nonspecific abdomen. K. David Murillo MD Objective Remarks GENERAL: WDWN female, lying in hospital bed. T piece in place. Remains nonverbal. Eyes open on verbal commands, tracked intermittently today. Not following commands. SKIN: Warm and dry. HEAD: Normocephalic. No scleral icterus. No injection or drainage. MMM. CARDIOVASCULAR: Regular rate and rhythm. No murmur appreciated. RESPIRATORY: s/p tracheostomy. Breath sounds equal bilaterally. No accessory muscle use. GASTROINTESTINAL: Abdomen soft, non-tender, nondistended. PEG in place, site is clean, no erythema, dressing intact. MUSCULOSKELETAL: No cyanosis, or edema. Procedures 11/24/2016 Percutaneous tracheostomy. 11/18/2016 Moderate encephalopathy with suggestion of left temporal region cortical irritability. No active seizures. Clinical correlation. Urinary Catheter: Yes Assessment to: Continue Brown insert reason: Measure Accurate Output Date of Insertion: December 29, 2016 A/P Problem List: (1) 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 Rivas is a 66-year-old female with a history of stroke who was admitted to the [facility] on 11/04/2016 due to difficulty getting her thoughts together. She was found to have multifocal nonhemorrhagic infarctions in the frontal and parietal regions. She was initially awake and following commands with weakness of RLE and some aphasia. She was transferred to [facility] where he had an cerebral angiogram consistent with moyamoya. There were plans to perform extracranial/intracranial bypass. However she had a seizure and ended up being intubated for status either 11/09 or 11/10.. She was found to have a new right frontal infarct area and she was started on Dilantin and Keppra and it was felt that she would not be a candidate for intervention. She has been intubated 9-10 days and apparently she has been tolerating C Pap trials to some extent but mental status prevents extubation. Treating team was discussing with family trach/PEG. Apparently family requested transfer back to [place] because they live locally here and wanted her closer to home. Patient remained under critical care medicine until 12/24/2016. - Bilateral frontal CVA - Moyamoya - confirmed by arteriogram at [facility] October 2016. - Seizure disorder -Neuro following -Continue Keppra - level 38.3 -Continue Tegretol -Follow for seizure activity - no recent seizure activity noted -continue Aspirin daily -Continue Bromocriptine -Tegretol level WNL. Ammonia level 39. Continue Lactulose. - COPD - Acute respiratory failure - currently on T piece. - Multilobar pneumonia -Status post tracheostomy on 11/24/2016. Pulmonary following, appreciate input. -DuoNeb when necessary -Continue Levsin - Multilobar pneumonia -Tobramycin provided as treatment, course ended on 01/20/17. -ID signed off. -CXR 01/25/17 reviewed, shows no acute cardiopulmonary disease - Leukocytosis -white count 9.0 --> 12.7 --> 11.7, awaiting am labs. -Afebrile. -CXR negative. - Suspect UTI -UA indicative of UTI with proteinuria, moderate leukocytes, 10 RBC and 29 WBCs. -follow up urine culture shows no growth x 48hrs. -d/c Ceftriaxone - Hyperglycemia -continue ISS, blood sugars relatively controlled. -Last A1c 11/04/16 was 5.2 - Nutrition - continue Jevity 1.5 through PEG tube, tolerating well. - Sacral/Coccyx wound -Specialty bed ordered -Wound care following, saw patient 01/27/17. New recommendations: Sacrum, Right buttock, Right ischium apply Single layer Xeroform over open wound beds. Prep periwounds with Cavilon skin prep. Cover Xeroform with bordered gauze dressing. Change dressings EVERY OTHER DAY and PRN for dislodgement or soiling. -continue frequent turning/off loading Q2H - Anemia, microcytic, hypochromic -hemoglobin 10.8 --> 9.9 -iron studies-iron 33, TIBC 307, % sat 10.8, ferritin 346. Continue iron supplementation. -stool hemoccult negative - DVT Prophylaxis: SCDs. Full code. Jackie Walsh Jan 28, 2017 09:05
[2017-01-28 09:34] LABS: AUTOMATED NEUTROPHIL # 8.4 TH/MM3 (1.8-7.7); BASOPHIL # 0.1 TH/MM3 (0-0.2); BASOPHIL % 0.5 % (0.0-2.0); EOSINOPHIL # 0.3 TH/MM3 (0-0.4); EOSINOPHIL % 2.6 % (0.0-4.0); HEMATOCRIT 30.8 % (35.0-46.0); HEMO FLAGS DIFF FINAL; LYMPH % 18.3 % (9.0-44.0); LYMPHOCYTE # 2.1 TH/MM3 (1.0-4.8); MEAN CORPUSCULAR HEMOGLOBIN 25.1 PG (27.0-34.0); MEAN CORPUSCULAR HGB CONC 31.7 % (32.0-36.0); MONO % 4.4 % (0.0-8.0); NEUT % 74.2 % (16.0-70.0); PLATELET COUNT 332 TH/MM3 (150-450); RED CELL DISTRIBUTION WIDTH 19.3 % (11.6-17.2); WHITE BLOOD COUNT 11.3 TH/MM3 (4.0-11.0)
[2017-01-28 10:59] LABS: BICARBONATE 27.6 MEQ/L (21.0-32.0); MAGNESIUM 2.1 MG/DL (1.5-2.5); POTASSIUM 3.5 MEQ/L (3.5-5.1)
--- NOTE | 2017-01-28 11:47 | HHI.PR ---
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 Trach secretions decreased Opens eyes, not tracking Objective Vital Signs Vital Signs Date Time Temp Pulse Resp B/P Pulse Ox O2 Delivery O2 Flow Rate FiO2 01/28/17 09:58 96 Trach Collar 6.00 28 01/28/17 08:33 95.7 89 20 140/85 95 01/28/17 07:35 87 01/28/17 07:33 100 T-Piece 5.00 28 01/28/17 04:00 95.4 93 22 140/96 100 01/28/17 00:00 95.2 79 24 118/84 100 01/27/17 22:00 85 01/27/17 21:37 100 T-piece 6.00 28 01/27/17 21:37 100 T-piece 6.00 28 01/27/17 20:00 95.3 85 22 128/87 100 01/27/17 20:00 100 T-Piece 5.00 28 01/27/17 16:40 95.8 85 20 116/85 100 01/27/17 13:00 96.1 82 20 123/74 100 I/O 01/27/17 01/27/17 01/27/17 01/28/17 01/28/17 01/28/17 07:00 15:00 23:00 07:00 15:00 23:00 Output Total 400 ml 400 ml 300 ml Balance -400 ml -400 ml -300 ml Output Urine Total 400 ml 400 ml 300 ml # Bowel Movements 0 2 1 Result Diagram: 01/28/1759 01/28/17 0859 Objective Remarks GENERAL: MBMN WF, on Trach collar SKIN: Warm and dry. HEAD: Normocephalic. EYES: No scleral icterus. No injection or drainage. NECK: Supple, trachea midline. No JVD or lymphadenopathy. has trach CARDIOVASCULAR: Regular rate and rhythm without murmurs, gallops, or rubs. RESPIRATORY: Breath sounds equal bilaterally. No accessory muscle use. GASTROINTESTINAL: Abdomen soft, non-tender, nondistended. has PEG MUSCULOSKELETAL: No cyanosis, or edema. BACK: Nontender without obvious deformity. No CVA tenderness. A/P Assessment and Plan RF, S/P Trach CVA Arango arango disease CAD COPD SZ disorder PLAN: Aerosol nebs Cont trach collar supplement 02 Cont TF Trach suction prn. Levsin 0.125 mg q 8 hrs Vernon Marx MD Jan 28, 2017 11:47
[2017-01-29] VITALS (12 sets, daily range): BP systolic 117–148; BP diastolic 82–90; PULSE 79–96; RESP 18–24; TEMP 96.3–97.9; O2SAT 95–100
[2017-01-29] MEDS: CHLORHEXIDINE GLUCONATE 2 % 1 PACK (2 CLOTHS) TOP SCH (04:00)
[2017-01-29] MEDS: INSULIN NovoLIN REGULAR SUPPLEMENTAL SCALE SQ SCH ×4 (04:00→20:00)
[2017-01-29] MEDS: FREE WATER G-TUBE SCH ×4 (05:05→18:00)
[2017-01-29] MEDS: HYOSCYAMINE 0.125 MG TAB PO SCH ×3 (05:05→22:33)
[2017-01-29] MEDS: CHLORHEXIDINE 0.12% (ORAL KIT) 15 ML CUP MT SCH ×2 (10:01→22:30)
[2017-01-29] MEDS: LACTULOSE SYRUP 20 GM/30 ML CUP PO SCH ×2 (10:01→22:30)
[2017-01-29] MEDS: FERROUS SULFATE 300 MG /5ML UDC PEG SCH ×2 (10:02→22:30)
[2017-01-29] MEDS: carBAMazepine SUSP 200 MG/10 ML UDC PEG SCH ×2 (10:02→22:30)
[2017-01-29] MEDS: levETIRAcetam 500 MG/5 ML UDC NG SCH ×2 (10:08→22:31)
[2017-01-29] MEDS: ATORVASTATIN 40 MG TAB PO SCH (10:08)
[2017-01-29] MEDS: FAMOTIDINE 20 MG TAB NG SCH ×2 (10:09→22:32)
[2017-01-29] MEDS: BROMOCRIPTINE MESYLATE 2.5 MG TAB OG-TUBE SCH ×2 (10:09→22:32)
[2017-01-29] MEDS: ASPIRIN 81 MG CHEW TAB NG SCH (10:09)
[2017-01-29] MEDS: ASCORBIC ACID 500 MG TAB PEG SCH ×2 (10:10→22:29)
[2017-01-29] MEDS: FOLIC ACID 1 MG TAB OG-TUBE SCH (10:10)
[2017-01-29] MEDS: SODIUM CHLORIDE 0.9% FLUSH 10 ML FLUSH IV FLUSH SCH ×2 (10:28→22:29)
--- NOTE | 2017-01-29 13:55 | HHI.PR ---
Subjective Remarks Follow up on patient with bilateral frontal CVA, Moyamoya disease, seizure d/o, COPD, multilobar pneumonia and acute respiratory failure currently on T piece. Patient seen and examined, RN at bedside. T-collar in place. Patient O2 sats 99 % after suctioning. Noticed occasional tachypnea with assessment and stimulation. Does not follow commands. Occasionally opens eyes to stimulation, does not track today. Spoke to RN, some intermittent, asymptomatic bradycardia overnight. Afebrile. Positive BM. Objective Vitals Vital Signs Date Time Temp Pulse Resp B/P Pulse Ox O2 Delivery O2 Flow Rate FiO2 01/29/17 12:07 97.2 96 21 146/90 100 01/29/17 10:45 83 01/29/17 10:12 100 28 01/29/17 10:11 100 T-piece 28 01/29/17 08:37 96.3 83 19 120/83 95 01/29/17 04:00 97.8 79 18 117/82 98 01/29/17 03:12 100 T-piece 28 01/29/17 00:00 97.9 86 20 128/88 100 01/28/17 23:00 90 01/28/17 23:00 99 T-Piece 6.00 28 01/28/17 21:45 100 T-piece 28 01/28/17 20:00 96.3 87 22 131/91 100 01/28/17 15:54 96.3 89 20 112/88 95 I/O 01/28/17 01/28/17 01/28/17 01/29/17 01/29/17 01/29/17 07:00 15:00 23:00 07:00 15:00 23:00 Intake Total 1320 ml Output Total 300 ml 1700 ml 450 ml Balance -300 ml -380 ml -450 ml Tube Feeding 720 ml Other 600 ml Output Urine Total 300 ml 1700 ml 450 ml # Bowel Movements 1 1 2 Result Diagram: 01/28/17 0859 01/28/17 0859 Imaging Last Impressions Chest X-Ray 01/25/17 0000 Signed Impressions: Service Date/Time: Wednesday, January 25, 2017 12:34 - CONCLUSION: 1. Tracheostomy in satisfactory position. The lungs appear clear. Aramis Frost MD Brain MRI 01/06/17 0000 Signed Impressions: Service Date/Time: January 14:19 - CONCLUSION: Continued evolutionary changes of large bilateral frontal lobe infarcts. Sami Mccarthy MD Abdomen X-Ray 11/26/16 0000 Signed Impressions: Service Date/Time: Saturday, November 26, 2016 10:18 - CONCLUSION: Distended stomach otherwise nonspecific abdomen. Jackson Murillo MD Objective Remarks GENERAL: WDWN female, lying in hospital bed. T piece in place. Remains nonverbal. Eyes open on verbal commands, tracked intermittently today. Not following commands. SKIN: Warm and dry. HEAD: Normocephalic. No scleral icterus. No injection or drainage. MMM. CARDIOVASCULAR: Regular rate and rhythm. No murmur appreciated. RESPIRATORY: s/p tracheostomy. Breath sounds equal bilaterally. No accessory muscle use. GASTROINTESTINAL: Abdomen soft, non-tender, nondistended. PEG in place, site is clean, no erythema, dressing intact. MUSCULOSKELETAL: No cyanosis, or edema. Procedures 11/24/2016 Percutaneous tracheostomy. 11/18/2016 Moderate encephalopathy with suggestion of left temporal region cortical irritability. No active seizures. Clinical correlation. Urinary Catheter: Yes Assessment to: Continue Date of Insertion: December 29, 2016 A/P Problem List: (1) 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 Rivas is a 66-year-old female with a history of stroke who was admitted to the [facility] on 11/04/2016 due to difficulty getting her thoughts together. She was found to have multifocal nonhemorrhagic infarctions in the frontal and parietal regions. She was initially awake and following commands with weakness of RLE and some aphasia. She was transferred to [facility] where he had an cerebral angiogram consistent with moyamoya. There were plans to perform extracranial/intracranial bypass. However she had a seizure and ended up being intubated for status either 11/09 or 11/10.. She was found to have a new right frontal infarct area and she was started on Dilantin and Keppra and it was felt that she would not be a candidate for intervention. She has been intubated 9-10 days and apparently she has been tolerating C Pap trials to some extent but mental status prevents extubation. Treating team was discussing with family trach/PEG. Apparently family requested transfer back to [place] because they live locally here and wanted her closer to home. Patient remained under critical care medicine until 12/24/2016. Bilateral frontal CVA Moyamoya - confirmed by arteriogram at [facility] October 2016. Seizure disorder -Neuro following, appreciate input. -Continue Keppra - level 38.3 -Continue Tegretol. -Follow for seizure activity - no recent seizure activity noted -continue Aspirin daily -Continue Bromocriptine -Tegretol level WNL. Ammonia level 39. Continue Lactulose. COPD Acute respiratory failure Multilobar pneumonia -Status post tracheostomy on 11/24/2016. Pulmonary following, appreciate input. Currently on T piece. Occasional Radha stoke breathing. Pulmonology aware. -DuoNeb when necessary -Continue Levsin Multilobar pneumonia -Tobramycin provided as treatment, course ended on 01/20/17. -ID signed off. -CXR 01/25/17 reviewed, shows no acute cardiopulmonary disease Leukocytosis -white count 9.0 --> 12.7 --> 11.7, 11.3. -Afebrile. NO signs of infection. Monitor. Hyponatremia - NA 133. Decrease FWF from 200 to 100 ml q6h. - BMP in am. Hyperammonemia: ammonia level 60. Increase Lactulose from 15 ml PO BID to 30 ml PO BID. Repeat in am. Follow. UTI resolved -UA indicative of UTI with proteinuria, moderate leukocytes, 10 RBC and 29 WBCs. Previously on ceftriaxone, finished course. -follow up urine culture shows no growth x 48hrs. Hyperglycemia -continue ISS, blood sugars relatively controlled. -Last A1c 11/04/16 was 5.2 Sacral/Coccyx wound -Specialty bed ordered -Wound care following, saw patient 01/27/17. New recommendations: Sacrum, Right buttock, Right ischium apply Single layer Xeroform over open wound beds. Prep periwounds with Cavilon skin prep. Cover Xeroform with bordered gauze dressing. Change dressing EVERY OTHER DAY and PRN for dislodgement or soiling. -continue frequent turning/off loading Q2H Anemia, microcytic, hypochromic, chronic -hemoglobin 10.8 --> 9.8 -iron studies-iron 33, TIBC 307, % sat 10.8, ferritin 346. - On iron supplementation. - DVT Prophylaxis: SCDs. Full code. Jackie Walsh Jan 29, 2017 13:55
[2017-01-29] MEDS: JUVEN POWDER 1 PACK G-TUBE SCH ×2 (14:20→22:28)
[2017-01-30] VITALS (10 sets, daily range): BP systolic 123–167; BP diastolic 70–100; PULSE 79–95; RESP 18–22; TEMP 95.5–98.4; O2SAT 93–100
[2017-01-30] MEDS: INSULIN NovoLIN REGULAR SUPPLEMENTAL SCALE SQ SCH ×4 (02:00→20:00)
[2017-01-30] MEDS: CHLORHEXIDINE GLUCONATE 2 % 1 PACK (2 CLOTHS) TOP SCH ×2 (02:42→21:50)
[2017-01-30] MEDS: HYOSCYAMINE 0.125 MG TAB PO SCH ×3 (06:28→21:41)
[2017-01-30] MEDS: FREE WATER G-TUBE SCH ×5 (06:29→23:51)
[2017-01-30] MEDS: CHLORHEXIDINE 0.12% (ORAL KIT) 15 ML CUP MT SCH ×2 (08:00→21:41)
[2017-01-30 08:13] LABS: AUTOMATED NEUTROPHIL # 8.4 TH/MM3 (1.8-7.7); BASOPHIL # 0.1 TH/MM3 (0-0.2); BASOPHIL % 0.7 % (0.0-2.0); EOSINOPHIL # 0.2 TH/MM3 (0-0.4); EOSINOPHIL % 2.2 % (0.0-4.0); HEMATOCRIT 30.9 % (35.0-46.0); HEMO FLAGS DIFF FINAL; LYMPH % 16.3 % (9.0-44.0); LYMPHOCYTE # 1.8 TH/MM3 (1.0-4.8); MEAN CELL VOLUME 79.4 FL (80.0-100.0); MEAN CORPUSCULAR HEMOGLOBIN 24.8 PG (27.0-34.0); MEAN CORPUSCULAR HGB CONC 31.3 % (32.0-36.0); MONO % 5.4 % (0.0-8.0); NEUT % 75.4 % (16.0-70.0); PLATELET COUNT 370 TH/MM3 (150-450); RED BLOOD COUNT 3.89 MIL/MM3 (4.00-5.30); WHITE BLOOD COUNT 11.1 TH/MM3 (4.0-11.0)
[2017-01-30 08:25] LABS: BICARBONATE 31.4 MEQ/L (21.0-32.0); POTASSIUM 3.6 MEQ/L (3.5-5.1)
[2017-01-30] MEDS: JUVEN POWDER 1 PACK G-TUBE SCH ×2 (09:00→21:44)
[2017-01-30] MEDS: SODIUM CHLORIDE 0.9% FLUSH 10 ML FLUSH IV FLUSH SCH ×2 (09:16→21:42)
[2017-01-30] MEDS: levETIRAcetam 500 MG/5 ML UDC NG SCH ×2 (09:16→21:42)
[2017-01-30] MEDS: FERROUS SULFATE 300 MG /5ML UDC PEG SCH ×2 (09:17→21:41)
[2017-01-30] MEDS: FOLIC ACID 1 MG TAB OG-TUBE SCH (09:17)
[2017-01-30] MEDS: ASPIRIN 81 MG CHEW TAB NG SCH (09:17)
[2017-01-30] MEDS: FAMOTIDINE 20 MG TAB NG SCH ×2 (09:17→21:42)
[2017-01-30] MEDS: ASCORBIC ACID 500 MG TAB PEG SCH ×2 (09:17→21:43)
[2017-01-30] MEDS: BROMOCRIPTINE MESYLATE 2.5 MG TAB OG-TUBE SCH ×2 (09:17→21:42)
[2017-01-30] MEDS: ATORVASTATIN 40 MG TAB PO SCH (09:17)
[2017-01-30] MEDS: carBAMazepine SUSP 200 MG/10 ML UDC PEG SCH ×2 (09:17→21:43)
[2017-01-30] MEDS: LACTULOSE SYRUP 20 GM/30 ML CUP PO SCH ×2 (09:17→21:41)
--- NOTE | 2017-01-30 11:35 | HHI.PR ---
Subjective Remarks Follow up on patient with bilateral frontal CVA, Moyamoya disease, seizure d/o, COPD, multilobar pneumonia and acute respiratory failure currently on T piece. Patient seen and examined, lying in bed. Patient becomes tachypneic when assessed. Mahad marcelo breathing noted. Sats 99%. Trach collar in place. Does not follow commands, does not track. Afebrile. Positive BM. Objective Vitals Vital Signs Date Time Temp Pulse Resp B/P Pulse Ox O2 Delivery O2 Flow Rate FiO2 01/30/17 09:12 100 T-piece 5.00 28 01/30/17 09:12 100 T-piece 5.00 28 01/30/17 08:14 95.5 84 22 154/96 100 01/30/17 08:10 79 01/30/17 08:00 100 T-Piece 28 01/30/17 04:00 98.4 80 18 127/70 99 01/30/17 00:00 98.2 85 20 132/71 100 01/29/17 20:45 99 T-piece 6.00 28 01/29/17 20:00 96.7 83 24 148/86 100 01/29/17 17:32 99 T-piece 6.00 28 01/29/17 16:28 97.9 87 19 131/85 100 01/29/17 12:07 97.2 96 21 146/90 100 I/O 01/29/17 01/29/17 01/29/17 01/30/17 01/30/17 01/30/17 06:59 14:59 22:59 06:59 14:59 22:59 Intake Total 1320 ml 939 ml 863 ml Output Total 1700 ml 450 ml 750 ml 600 ml Balance -380 ml -450 ml 189 ml 263 ml Tube Feeding 720 ml 939 ml 463 ml Other 600 ml 400 ml Output Urine Total 1700 ml 450 ml 750 ml 600 ml # Bowel Movements 1 Result Diagram: 01/30/17 0742 01/30/17 0742 Imaging Last Impressions Chest X-Ray 01/25/17 0000 Signed Impressions: Service Date/Time: Wednesday, January 25, 2017 12:34 - CONCLUSION: 1. Tracheostomy in satisfactory position. The lungs appear clear. Aramis Frost MD Brain MRI 01/06/17 0000 Signed Impressions: Service Date/Time: January 14:19 - CONCLUSION: Continued evolutionary changes of large bilateral frontal lobe infarcts. Sami Mccarthy MD Abdomen X-Ray 11/26/16 0000 Signed Impressions: Service Date/Time: Saturday, November 26, 2016 10:18 - CONCLUSION: Distended stomach otherwise nonspecific abdomen. Jackson Murillo MD Objective Remarks GENERAL: WDWN female, lying in hospital bed. T piece in place. Remains nonverbal. Eyes open on verbal commands, no tracking today. Not following commands. SKIN: Warm and dry. HEAD: Normocephalic. No scleral icterus. No injection or drainage. CARDIOVASCULAR: Regular rate and rhythm. No murmur appreciated. RESPIRATORY: s/p tracheostomy. Breath sounds equal bilaterally. No accessory muscle use. GASTROINTESTINAL: Abdomen soft, non-tender, nondistended. PEG in place, site is clean, no erythema, dressing intact. MUSCULOSKELETAL: No cyanosis, or edema. Procedures 11/24/2016 Percutaneous tracheostomy. 11/18/2016 Moderate encephalopathy with suggestion of left temporal region cortical irritability. No active seizures. Clinical correlation. Date of Insertion: December 29, 2016 A/P Problem List: (1) 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 Rivas is a 66-year-old female with a history of stroke who was admitted to the [facility] on 11/04/2016 due to difficulty getting her thoughts together. She was found to have multifocal nonhemorrhagic infarctions in the frontal and parietal regions. She was initially awake and following commands with weakness of RLE and some aphasia. She was transferred to [facility] where he had an cerebral angiogram consistent with moyamoya. There were plans to perform extracranial/intracranial bypass. However she had a seizure and ended up being intubated for status either 11/09 or 11/10.. She was found to have a new right frontal infarct area and she was started on Dilantin and Keppra and it was felt that she would not be a candidate for intervention. She has been intubated 9-10 days and apparently she has been tolerating C Pap trials to some extent but mental status prevents extubation. Treating team was discussing with family trach/PEG. Apparently family requested transfer back to [place] because they live locally here and wanted her closer to home. Patient remained under critical care medicine until 12/24/2016. Bilateral frontal CVA Moyamoya - confirmed by arteriogram at [facility] October 2016. Seizure disorder -Neuro following, appreciate input. -Continue Keppra - level 38.3 -Continue Tegretol. -Follow for seizure activity - no recent seizure activity noted -continue Aspirin daily -Continue Bromocriptine -Tegretol level WNL. Ammonia level 39. Continue Lactulose. COPD Acute respiratory failure Multilobar pneumonia -Status post tracheostomy on 11/24/2016. Pulmonary following, appreciate input. Currently on T piece. Occasional Radha stoke breathing. Pulmonology aware. -DuoNeb when necessary -Continue Levsin Multilobar pneumonia -Tobramycin provided as treatment, course ended on 01/20/17. -ID signed off. -CXR 01/25/17 reviewed, shows no acute cardiopulmonary disease Leukocytosis -white count 9.0 --> 12.7 --> 11.7, 11.3, 11.1. -Afebrile. No signs of infection. Monitor. Hyponatremia, resolved. - NA 133-->138. Continue FWF from 200 to 100 ml q6h. Hyperammonemia: ammonia level 60 --> 52. Continue Lactulose from 15 ml PO BID to 30 ml PO BID. Repeat in am. Follow. UTI resolved -UA indicative of UTI with proteinuria, moderate leukocytes, 10 RBC and 29 WBCs. Previously on ceftriaxone, finished course. -follow up urine culture shows no growth x 48hrs. Hyperglycemia -continue ISS, blood sugars relatively controlled. -Last A1c 11/04/16 was 5.2 Sacral/Coccyx wound -Specialty bed ordered -Wound care following, saw patient 01/27/17. New recommendations: Sacrum, Right buttock, Right ischium apply Single layer Xeroform over open wound beds. Prep periwounds with Cavilon skin prep. Cover Xeroform with bordered gauze dressing. Change dressing EVERY OTHER DAY and PRN for dislodgement or soiling. -continue frequent turning/off loading Q2H Anemia, microcytic, hypochromic, chronic -hemoglobin 10.8 --> 9.7 -iron studies-iron 33, TIBC 307, % sat 10.8, ferritin 346. - On iron supplementation. - DVT Prophylaxis: SCDs. Full code. Jackie Walsh Jan 30, 2017 11:35
[2017-01-31] VITALS (10 sets, daily range): BP systolic 108–151; BP diastolic 67–90; PULSE 82–101; RESP 20–26; TEMP 96.9–97.9; O2SAT 95–100
[2017-01-31] MEDS: INSULIN NovoLIN REGULAR SUPPLEMENTAL SCALE SQ SCH ×4 (02:00→20:00)
[2017-01-31] MEDS: HYOSCYAMINE 0.125 MG TAB PO SCH ×3 (06:31→21:19)
[2017-01-31] MEDS: FREE WATER G-TUBE SCH ×3 (06:31→18:00)
[2017-01-31] MEDS: carBAMazepine SUSP 200 MG/10 ML UDC PEG SCH ×2 (08:35→21:21)
[2017-01-31] MEDS: CHLORHEXIDINE 0.12% (ORAL KIT) 15 ML CUP MT SCH ×2 (08:35→21:17)
[2017-01-31] MEDS: levETIRAcetam 500 MG/5 ML UDC NG SCH ×2 (08:35→21:19)
[2017-01-31] MEDS: LACTULOSE SYRUP 20 GM/30 ML CUP PO SCH ×2 (08:35→21:21)
[2017-01-31] MEDS: ASPIRIN 81 MG CHEW TAB NG SCH (08:36)
[2017-01-31] MEDS: FERROUS SULFATE 300 MG /5ML UDC PEG SCH ×2 (08:36→21:21)
[2017-01-31] MEDS: BROMOCRIPTINE MESYLATE 2.5 MG TAB OG-TUBE SCH ×2 (08:37→21:19)
[2017-01-31] MEDS: FAMOTIDINE 20 MG TAB NG SCH ×2 (08:37→21:19)
[2017-01-31] MEDS: ASCORBIC ACID 500 MG TAB PEG SCH ×2 (08:37→21:19)
[2017-01-31] MEDS: FOLIC ACID 1 MG TAB OG-TUBE SCH (08:37)
[2017-01-31] MEDS: ATORVASTATIN 40 MG TAB PO SCH (08:37)
[2017-01-31] MEDS: JUVEN POWDER 1 PACK G-TUBE SCH ×2 (08:44→21:18)
[2017-01-31] MEDS: SODIUM CHLORIDE 0.9% FLUSH 10 ML FLUSH IV FLUSH SCH ×2 (09:00→21:18)
--- NOTE | 2017-01-31 19:04 | HHI.PR ---
Subjective Remarks Follow up on patient with bilateral frontal CVA, Moyamoya disease, seizure d/o, COPD, multilobar pneumonia and acute respiratory failure currently on T piece. Sats 100% Patient seen and examined, lying in bed. Eyes were closed for much of the session. However, she briefly opened her eyes towards the end of the visit. She did not track people in the room. Per RN (Vitaly) pt does have periods of tachypnea and oxygen desaturation. Per RN, no acute changes noted over night or since start of shift. VSS Objective Vitals Vital Signs Date Time Temp Pulse Resp B/P Pulse Ox O2 Delivery O2 Flow Rate FiO2 01/31/17 16:18 97.7 101 24 108/67 99 01/31/17 14:22 99 T-piece 5.00 28 01/31/17 12:06 97.9 100 23 151/85 99 01/31/17 08:00 97.2 100 26 151/87 95 01/31/17 04:00 96.9 89 20 145/90 100 01/31/17 00:00 97.0 82 22 141/76 100 01/30/17 21:56 86 147/84 01/30/17 20:00 96.9 84 22 155/100 93 I/O 01/30/17 01/30/17 01/30/17 01/31/17 01/31/17 01/31/17 07:00 15:00 23:00 07:00 15:00 23:00 Intake Total 863 ml 401 ml 662 ml 870 ml Output Total 600 ml 850 ml 500 ml Balance 263 ml 401 ml -188 ml 870 ml -500 ml Tube Feeding 463 ml 401 ml 462 ml 470 ml Other 400 ml 200 ml 400 ml Output Urine Total 600 ml 850 ml 500 ml # Bowel Movements 0 Result Diagram: 01/30/17 0742 01/30/17 0742 Imaging Last Impressions Chest X-Ray 01/25/17 0000 Signed Impressions: Service Date/Time: Wednesday, January 25, 2017 12:34 - CONCLUSION: 1. Tracheostomy in satisfactory position. The lungs appear clear. Aramis Frost MD Brain MRI 01/06/17 0000 Signed Impressions: Service Date/Time: January 14:19 - CONCLUSION: Continued evolutionary changes of large bilateral frontal lobe infarcts. Sami Mccarthy MD Abdomen X-Ray 11/26/16 0000 Signed Impressions: Service Date/Time: Saturday, November 26, 2016 10:18 - CONCLUSION: Distended stomach otherwise nonspecific abdomen. Jackson Murillo MD Objective Remarks GENERAL: Pt encountered laying a bed, T-piece in place, eyes closed for much of visit, in NAD. SKIN: Warm and dry. HEAD: Normocephalic. EYES: No scleral icterus. No injection or drainage. NECK: Supple, t-piece in place. CARDIOVASCULAR: Regular rate and rhythm without murmurs, gallops, or rubs. RESPIRATORY: Breath sounds equal bilaterally, without rhonchi or wheezes. On respirator. GASTROINTESTINAL: Abdomen soft, non-tender, nondistended. G-tube in place MUSCULOSKELETAL: No cyanosis, or edema. bilateral SCD's in place as were bilateral off loading boots. Physical therapy present at time of visit and working with pt. Neurological: Pt not responding to commands, no spontaneous movement observed Procedures 11/24/2016 Percutaneous tracheostomy. 11/18/2016 Moderate encephalopathy with suggestion of left temporal region cortical irritability. No active seizures. Clinical correlation. Medications and IVs Current Medications Medications (Trade) Dose Ordered Sig/Ora Route Start Time Stop Time Status Last Admin (Peridex 0.12% Liq) 15 ml BID@08,20 MT 11/18/16 08:00 01/31/17 08:35 (NS Flush) 2 ml BID IV FLUSH 11/18/16 09:00 01/30/17 21:42 (Tylenol) 650 mg Q6H PRN PO 11/18/16 03:30 01/01/17 16:01 (Friona 5-325 Mg) 1 tab Q4H PRN PO 11/18/16 03:30 01/17/17 09:16 (Morphine Inj) 2 mg Q2H PRN IV 11/18/16 03:30 01/16/17 08:23 (Zofran Inj) 4 mg Q6H PRN IV 11/18/16 03:30 11/26/16 03:20 Miscellaneous Information 1 Q361D XX 11/18/16 03:30 11/18/16 03:30 (Chlorhexidine 2% Cloth) Taper DAILY@04 TOP 11/18/16 04:00 11/14/17 03:59 01/17/17 04:00 (Chlorhexidine 2% Cloth) 3 pack UNSCH PRN TOP 11/18/16 03:30 (Aspirin Chew) 324 mg DAILY NG 11/18/16 09:00 01/31/17 08:36 (Lipitor) 40 mg DAILY PO 11/18/16 09:00 01/31/17 08:37 (Parlodel) 2.5 mg Q12HR OG-TUBE 11/18/16 09:00 01/31/17 08:37 (Folate) 1 mg DAILY OG-TUBE 11/18/16 09:00 01/31/17 08:37 (Senna Liq) 8.8 mg BID PO 11/19/16 21:00 Hold 01/18/17 08:54 (D50w (Vial) Inj) 25 ml UNSCH PRN IV PUSH 11/22/16 08:00 (Glucagon Inj) 1 mg UNSCH PRN OTHER 11/22/16 08:00 (NovoLIN R SUPPLEMENTAL SCALE) 1 Q6H SQ 11/22/16 08:00 01/31/17 08:00 (Lopressor Inj) 5 mg Q6H PRN IV PUSH 11/23/16 22:45 01/12/17 03:20 (Dulcolax Supp) 10 mg DAILY PRN RECTAL 12/14/16 15:45 (Pepcid) 20 mg BID NG 12/21/16 21:00 01/31/17 08:37 (Keppra Liq) 1,500 mg Q12HR NG 12/21/16 21:00 01/31/17 08:35 (Levsin Liq) 0.125 mg Q4H PRN PO 12/28/16 07:15 01/24/17 01:45 (TEGretol LIQ) 200 mg Q12HR PEG 01/06/17 09:00 01/31/17 08:35 (Corby Powder) 1 pack BID G-TUBE 01/13/17 09:00 01/31/17 08:44 (Levsin) 0.125 mg Q8HR PO 01/19/17 22:00 01/31/17 14:35 (Ferrous Sulfate Liq) 300 mg BID PEG 01/26/17 21:00 01/31/17 08:36 (Vitamin C) 500 mg BID PEG 01/26/17 21:00 01/31/17 08:37 (Lactulose Liq) 30 ml BID PO 01/29/17 09:00 01/31/17 08:35 (Free Water) 100 ml Q6HR G-TUBE 01/29/17 12:00 01/31/17 12:00 Urinary Catheter: Yes Assessment to: Continue Brown insert reason: Prolonged Immobilization Date of Insertion: December 29, 2016 A/P Problem List: (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 She was was admitted to [facility] emergency department 11/04/16 with difficulty getting her thoughts together. She was found to have multifocal nonhemorrhagic infarcts in left frontal and parietal regions, right frontal lobe and history of moyamoya disease. She was initially awake and following commands with weakness of RLE and some aphasia. She was transferred to [facility] where he had an cerebral angiogram consistent with moyamoya. There were plans to perform extracranial/intracranial bypass. However she had a seizure and ended up being intubated for status either 4/4 or 4/5.. She was found to have a new right frontal infarct area and she was started on Dilantin and Keppra and it was felt that she would not be a candidate for intervention. She has been intubated 9-10 days and apparently she has been tolerating C Pap trials to some extent but mental status prevents extubation. Treating team was discussing with family trach/PEG. Apparently family requested transfer back to [place] because they live locally here and wanted her closer to home. Patient remained under critical care medicine until 12/24/2016. Bilateral large frontal CVA Moyamoya Disease Seizure Disorder -Neuro following -Continue Keppra -Continue Tegretol -Follow for seizure activity -Daily Aspirin -Bromocriptine -Check Tegretol level, CBC/CMP, and ammonia level -Tegretol level WNL. Ammonia level elevated-reinstituted pts. order of lactulose 15 ml q 12 hrs -lactulose increased to 30 ml BId on 01/29/17, ammonia level noted to be 52 on 01/30/17. Chronic Respiratory Failure Hx of COPD -No exacerbations -Continue tracheostomy with oxygen. Multilobar pneumonia -Tobramycin provided as treatment, course ended on 01/20/17. -ID following Dysphagia -Jevity 1.5 through PEG tube. Diarrhea -Hold stool softener -labs for today and in am -current antibiotic is tobramycin 80 mg q 12 hrs NEB. -Pt not dehydrated. C. Diff assay ordered, results pending. -C'Diff assay negative. Sacral/Coccyx wound -Specialty bed ordered -Wound care following DVT prophylaxis -SCDs Case discussed with pt's RN (Vitaly), Physical Therapist (Nathalia) and Dr. Obrien Discharge Planning Patient will need long-term care facility Trell Torres Jr. Jan 31, 2017 19:04
--- NOTE | 2017-01-31 19:44 | HHI.PR ---
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 Trach secretions decreased Opens eyes, not tracking Has episodes of Cheyyne Suazo breathing Objective Vital Signs Vital Signs Date Time Temp Pulse Resp B/P Pulse Ox O2 Delivery O2 Flow Rate FiO2 01/31/17 16:18 97.7 101 24 108/67 99 01/31/17 14:22 99 T-piece 5.00 28 01/31/17 12:06 97.9 100 23 151/85 99 01/31/17 08:00 97.2 100 26 151/87 95 01/31/17 04:00 96.9 89 20 145/90 100 01/31/17 00:00 97.0 82 22 141/76 100 01/30/17 21:56 86 147/84 01/30/17 20:00 96.9 84 22 155/100 93 I/O 01/30/17 01/30/17 01/30/17 01/31/17 01/31/17 01/31/17 07:00 15:00 23:00 07:00 15:00 23:00 Intake Total 863 ml 401 ml 662 ml 870 ml Output Total 600 ml 850 ml 500 ml Balance 263 ml 401 ml -188 ml 870 ml -500 ml Tube Feeding 463 ml 401 ml 462 ml 470 ml Other 400 ml 200 ml 400 ml Output Urine Total 600 ml 850 ml 500 ml # Bowel Movements 0 Result Diagram: 01/30/17 0742 01/30/17 0742 Objective Remarks GENERAL: MBMN WF, on Trach collar SKIN: Warm and dry. HEAD: Normocephalic. EYES: No scleral icterus. No injection or drainage. NECK: Supple, trachea midline. No JVD or lymphadenopathy. has trach CARDIOVASCULAR: Regular rate and rhythm without murmurs, gallops, or rubs. RESPIRATORY: Breath sounds equal bilaterally. No accessory muscle use. GASTROINTESTINAL: Abdomen soft, non-tender, nondistended. has PEG MUSCULOSKELETAL: No cyanosis, or edema. BACK: Nontender without obvious deformity. No CVA tenderness. A/P Assessment and Plan RF, S/P Trach CVA Arango arango disease CAD COPD SZ disorder PLAN: Aerosol nebs Cont trach collar supplement 02 Cont TF Trach suction prn. Levsin 0.125 mg q 8 hrs Vernon Marx MD Jan 31, 2017 19:44
[2017-02-01] VITALS (10 sets, daily range): BP systolic 120–165; BP diastolic 69–101; PULSE 79–159; RESP 20–28; TEMP 95.3–98.4; O2SAT 97–100
[2017-02-01] MEDS: CHLORHEXIDINE GLUCONATE 2 % 1 PACK (2 CLOTHS) TOP SCH (01:37)
[2017-02-01] MEDS: INSULIN NovoLIN REGULAR SUPPLEMENTAL SCALE SQ SCH ×3 (02:00→20:40)
[2017-02-01] MEDS: HYOSCYAMINE 0.125 MG TAB PO SCH (05:26)
[2017-02-01] MEDS: FREE WATER G-TUBE SCH ×5 (05:27→22:42)
[2017-02-01] MEDS: ASCORBIC ACID 500 MG TAB PEG SCH ×2 (07:45→20:43)
[2017-02-01] MEDS: FOLIC ACID 1 MG TAB OG-TUBE SCH (07:45)
[2017-02-01] MEDS: FERROUS SULFATE 300 MG /5ML UDC PEG SCH ×2 (07:45→20:43)
[2017-02-01] MEDS: BROMOCRIPTINE MESYLATE 2.5 MG TAB OG-TUBE SCH ×2 (07:50→20:43)
[2017-02-01] MEDS: carBAMazepine SUSP 200 MG/10 ML UDC PEG SCH ×2 (07:50→20:43)
[2017-02-01] MEDS: ASPIRIN 81 MG CHEW TAB NG SCH (07:50)
[2017-02-01] MEDS: FAMOTIDINE 20 MG TAB NG SCH ×2 (07:50→20:43)
[2017-02-01] MEDS: SODIUM CHLORIDE 0.9% FLUSH 10 ML FLUSH IV FLUSH SCH ×2 (07:50→20:42)
[2017-02-01] MEDS: levETIRAcetam 500 MG/5 ML UDC NG SCH ×2 (08:00→20:43)
[2017-02-01] MEDS: CHLORHEXIDINE 0.12% (ORAL KIT) 15 ML CUP MT SCH ×2 (08:00→20:40)
[2017-02-01] MEDS: ATORVASTATIN 40 MG TAB G-TUBE SCH (08:00)
[2017-02-01] MEDS ORDERED: DILTIAZEM HCL 25 MG/5 ML VIAL IV ONE (08:45)
--- NOTE | 2017-02-01 08:56 | HHI.PR ---
Subjective Remarks F/U CRF and CVA. Called by RN secondary to tachycardia. Immediately saw patient she is in A. fib with RVR with no history. Patient also having intermittent Rfaiq-Suazo breathing. Discussed with nursing staff and rapid response team, ordered Cardizem 15 mg IV push with improvement of heart rate Objective Vitals Vital Signs Date Time Temp Pulse Resp B/P Pulse Ox O2 Delivery O2 Flow Rate FiO2 02/01/17 08:23 98.4 159 28 155/91 99 02/01/17 07:32 100 T-piece 5.00 28 02/01/17 07:32 100 T-piece 5.00 28 02/01/17 04:00 97.6 89 20 140/72 97 02/01/17 00:00 95.3 87 20 128/78 100 01/31/17 22:00 89 01/31/17 20:55 100 Trach Collar 5.00 28 01/31/17 20:55 100 Trach Collar 5.00 28 01/31/17 20:30 T-Piece 28 01/31/17 20:00 97.2 86 20 138/79 95 01/31/17 16:18 97.7 101 24 108/67 99 01/31/17 14:22 99 T-piece 5.00 01/31/17 12:06 97.9 100 23 151/85 99 01/31/17 11:11 96 I/O 01/31/17 01/31/17 01/31/17 02/01/17 02/01/17 02/01/17 07:00 15:00 23:00 07:00 15:00 23:00 Intake Total 870 ml 300 ml 840 ml Output Total 500 ml 500 ml 500 ml Balance 870 ml -500 ml -200 ml 340 ml Tube Feeding 470 ml 720 ml Other 400 ml 300 ml 120 ml Output Urine Total 500 ml 500 ml 500 ml # Bowel Movements 0 Result Diagram: 01/30/17 0742 01/30/1742 Imaging Last Impressions Chest X-Ray 01/25/17 0000 Signed Impressions: Service Date/Time: Wednesday, January 25, 2017 12:34 - CONCLUSION: 1. Tracheostomy in satisfactory position. The lungs appear clear. Aramis Frost MD Brain MRI 01/06/17 0000 Signed Impressions: Service Date/Time: January 14:19 - CONCLUSION: Continued evolutionary changes of large bilateral frontal lobe infarcts. Sami Mccarthy MD Abdomen X-Ray 11/26/16 0000 Signed Impressions: Service Date/Time: Saturday, November 26, 2016 10:18 - CONCLUSION: Distended stomach otherwise nonspecific abdomen. Jackson Murillo MD Objective Remarks GENERAL: Pt encountered laying a bed, T-piece in place, eyes closed with rafiq Suazo breathing SKIN: Warm and dry. HEAD: Normocephalic. EYES: No scleral icterus. No injection or drainage. NECK: Supple, t-piece in place. CARDIOVASCULAR: Tachycardic without murmurs, gallops, or rubs. RESPIRATORY: Breath sounds equal bilaterally, without rhonchi or wheezes. On respirator. GASTROINTESTINAL: Abdomen soft, non-tender, nondistended. G-tube in place MUSCULOSKELETAL: No cyanosis, or edema. bilateral SCD's in place as were bilateral off loading boots. Neurological: Pt not responding to commands, no spontaneous movement observed Procedures PEG 11/24/2016 Percutaneous tracheostomy. 11/18/2016 Moderate encephalopathy with suggestion of left temporal region cortical irritability. No active seizures. Clinical correlation. Date of Insertion: December 29, 2016 A/P Problem List: (1) 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 Status: Acute (2) Seizure ICD Code: R56.9 Status: Acute (3) CVA (cerebral vascular accident) ICD Code: I63.9 Status: Acute (4) Respiratory failure, acute ICD Code: J96.00 Status: Acute (5) COPD (chronic obstructive pulmonary disease) ICD Code: J44.9 Status: Chronic (6) Acute hypernatremia ICD Code: E87.0 Status: Acute Assessment and Plan 65-year-old female with past medical history of stroke for which she at one point was on warfarin but had been discontinued. She was was admitted to [facility] emergency department 11/04/16 with difficulty getting her thoughts together. She was found to have multifocal nonhemorrhagic infarcts in left frontal and parietal regions, right frontal lobe and history of moyamoya disease. She was initially awake and following commands with weakness of RLE and some aphasia. She was transferred to [facility] where he had an cerebral angiogram consistent with moyamoya. There were plans to perform extracranial/intracranial bypass. However she had a seizure and ended up being intubated. She was found to have a new right frontal infarct area and she was started on Dilantin and Keppra and it was felt that she would not be a candidate for intervention. She has been intubated and apparently she has been tolerating C Pap trials to some extent but mental status prevents extubation. Treating team was discussing with family trach/PEG. Apparently family requested transfer back to [place] because they live locally here and wanted her closer to home. Patient remained under critical care medicine until . Bilateral large frontal CVA Moyamoya Disease Seizure Disorder -Neuro following -Continue Keppra -Continue Tegretol -Follow for seizure activity -Daily Aspirin -Bromocriptine -Elevated ammonia level will increase lactulose to 45 mL 3 times a day to titrate to 3 loose stools a day. New onset A. fib with RVR. [id number] of 4. After Cardizem 15 mg IV push, heart rate is currently controlled start Lopressor 25 mg twice a day. Family agrees with anticoagulation with Lovenox and Coumadin. Discontinue aspirin when INR therapeutic. Check CBC, CMP, TSH and echocardiogram Chronic Respiratory Failure Hx of COPD Rafiq Suazo breathing -No exacerbations -Continue tracheostomy with oxygen. Multilobar pneumonia -Tobramycin provided as treatment, course ended on 01/20/17. -Monitor Dysphagia -Jevity 1.5 through PEG tube. Sacral/Coccyx wound -Specialty bed ordered -Wound care following DVT prophylaxis -SCDs Discharge Planning Patient is critical high likelihood of hemodynamic decompensation without emergent intervention. Critical care time spent 35 minutes Shahram Obrien MD Feb 01, 2017 08:56
[2017-02-01] MEDS: JUVEN POWDER 1 PACK G-TUBE SCH ×2 (09:00→20:41)
[2017-02-01] MEDS: SENNOSIDES SYRUP 8.8 MG/5 ML CUP G-TUBE SCH ×2 (09:00→20:44)
[2017-02-01] MEDS ORDERED: LACTULOSE SYRUP 20 GM/30 ML CUP PO SCH (09:00)
[2017-02-01] MEDS ORDERED: DEXTROSE 50% IN WATER 50 ML VIAL(D50) IV PUSH PRN (09:15)
[2017-02-01] MEDS ORDERED: GLUCAGON 1 MG/ML VIAL OTHER PRN (09:15)
--- NOTE | 2017-02-01 09:31 | RADRPT ---
EXAM DATE/TIME: 02/01/2017 08:45 [facility] COMPARISON: CHEST SINGLE AP, January 25, 2017, 12:34. INDICATIONS : Short of breath. MEDICAL HISTORY : Hypertension. Seizures. SURGICAL HISTORY : None. ENCOUNTER: Subsequent ACUITY: 2 weeks PAIN SCORE: Non-responsive. LOCATION: Bilateral chest FINDINGS: There is a stable tracheostomy in place. Mild interstitial prominence likely exaggerated by technique . Cardiomediastinal contours are stable. Remainder of the exam is unchanged. CONCLUSION: 1. Stable tracheostomy. 2. Mild interstitial prominence may reflect slight positive fluid balance. Christiano Villagran MD on February 01, 2017 at 9:27 Board Certified Radiologist. This report was verified electronically.
[2017-02-01] MEDS: LACTULOSE SYRUP 20 GM/30 ML CUP G-TUBE SCH ×3 (11:07→19:49)
[2017-02-01] MEDS: ENOXAPARIN SODIUM 100 MG/ML SYRINGE SQ SCH ×2 (11:08→22:42)
[2017-02-01] MEDS: METOPROLOL TARTRATE 25 MG TAB G-TUBE SCH ×2 (11:08→20:43)
[2017-02-01 13:35] LABS: AUTOMATED NEUTROPHIL # 6.4 TH/MM3 (1.8-7.7); BASOPHIL # 0.1 TH/MM3 (0-0.2); BASOPHIL % 1.3 % (0.0-2.0); EOSINOPHIL # 0.3 TH/MM3 (0-0.4); EOSINOPHIL % 3.8 % (0.0-4.0); HEMATOCRIT 28.7 % (35.0-46.0); HEMO FLAGS DIFF FINAL; LYMPHOCYTE # 1.7 TH/MM3 (1.0-4.8); MEAN CELL VOLUME 78.8 FL (80.0-100.0); MEAN CORPUSCULAR HEMOGLOBIN 24.9 PG (27.0-34.0); MEAN CORPUSCULAR HGB CONC 31.6 % (32.0-36.0); MONO % 7.2 % (0.0-8.0); NEUT % 69.7 % (16.0-70.0); PLATELET COUNT 337 TH/MM3 (150-450); RED BLOOD COUNT 3.64 MIL/MM3 (4.00-5.30); RED CELL DISTRIBUTION WIDTH 19.9 % (11.6-17.2); WHITE BLOOD COUNT 9.2 TH/MM3 (4.0-11.0)
[2017-02-01 13:44] LABS: APTT (PATIENT) 34.5 SEC (24.3-30.1); INTERNATIONAL NORMALIZED RATIO 1.1 RATIO; PROTHROMBIN TIME - PATIENT 11.9 SEC (9.8-11.6)
[2017-02-01 13:57] LABS: ALT (GPT) 32 U/L (10-53); ANION GAP 9 MEQ/L (5-15); AST (GOT) 26 U/L (15-37); BICARBONATE 31.2 MEQ/L (21.0-32.0); BLOOD UREA NITROGEN 29 MG/DL (7-18); CHLORIDE 100 MEQ/L (98-107); GLOMERULAR FILTRATION RATE 137 ML/MIN (>89); POTASSIUM 3.2 MEQ/L (3.5-5.1); SODIUM (NA) 140 MEQ/L (136-145)
--- NOTE | 2017-02-01 14:05 | RADRPT ---
EXAM DATE/TIME: 02/01/2017 13:23 [facility] COMPARISON: No previous studies available for comparison. INDICATIONS : Bilateral leg swelling. MEDICAL HISTORY : Myocardial infarction. Stroke. Seizures. Hypertension. SURGICAL HISTORY : None. ENCOUNTER: Initial ACUITY: 1 day PAIN SCORE: Non-responsive LOCATION: Bilateral legs. TECHNIQUE: Venous ultrasound of the left and right leg was performed from the inguinal ligament to the proximal calf. Real-time, color Doppler and spectral tracing, compression and augmentation techniques were us ed. FINDINGS: RIGHT LEG: There is normal compressibility of the deep venous system from the inguinal region to the proximal ca lf. No echogenic clot is seen in the lumen of the common femoral, femoral, popliteal, and posterior tibial veins. There is a normal response of the venous system to proximal and distal augmentation an d respiration. LEFT LEG: There is normal compressibility of the deep venous system from the inguinal region to the proximal ca lf. No echogenic clot is seen in the lumen of the common femoral, femoral, popliteal, and posterior tibial veins. There is a normal response of the venous system to proximal and distal augmentation an d respiration. CONCLUSION: Normal examination. Gray Veronica MD on February 01, 2017 at 14:03 Board Certified Radiologist. This report was verified electronically.
[2017-02-01 14:06] LABS: ALKALINE PHOSPHATASE 120 U/L (45-117); TOTAL BILIRUBIN ADULT 0.4 MG/DL (0.2-1.0)
[2017-02-01] MEDS ORDERED: FUROSEMIDE 20 MG/2 ML VIAL IV PUSH ONE (14:45)
[2017-02-01] MEDS ORDERED: POTASSIUM CHLORIDE 25 MEQ EFFERVESCENT TAB G-TUBE ONE (14:45)
[2017-02-01] MEDS ORDERED: WARFARIN SOD 10 MG TAB PO ONE (16:00)
--- NOTE | 2017-02-01 16:02 | EKG ---
Date Performed: 02/01/2017 Time Performed: 08:38:15 PTAGE: 66 years EKG: NORMAL Sinus rhythm LOW QRS VOLTAGE IN PRECORDIAL LEADS ANTEROSEPTAL MYOCARDIAL INFARCTION , OF INDETERMINATE AGE Baseli ne artifact significantly limits accurate interpretation. ABNORMAL ECG PREVIOUS TRACING : 11/09/2015 19.32 DOCTOR: Chintan Beach Interpretating Date/Time 02/01/2017 16:01:44
--- NOTE | 2017-02-01 16:04 | EKG ---
Date Performed: 02/01/2017 Time Performed: 08:42:00 PTAGE: 66 years EKG: Sinus rhythm POSSIBLE LEFT ATRIAL ENLARGEMENT MARKED LEFT AXIS DEVIATION ANTERIOR MYOCARDIAL INFARCTION , OF INDE TERMINATE AGE ABNORMAL ECG Baseline artifact significantly limits accuracy of interpretation. PREVIOUS TRACING : 11/09/2015 19.32 DOCTOR: Chintan Beach Interpretating Date/Time 02/01/2017 16:02:14
[2017-02-01] MEDS: HYOSCYAMINE 0.125 MG TAB G-TUBE SCH ×2 (16:24→22:42)
--- NOTE | 2017-02-01 16:58 | HHI.HCPN ---
Reason for visit a. To assist with evaluation and management of symptoms including: encephalopathy, seizure, dyspnea, weakness b. To assist medical decision maker(s) with: better understanding of current medical conditions; weighing benefits/burdens of medical treatment options; making medical treatment decisions. . (Yuridia Almeida) Subjective/Interval History Received VM from family requesting update on condition, Seen to follow up on assessment, condition, comfort, provide update to family. No new witnessed seizures. Afebrile, VS essentially wnl. Episode of Afib RVR earlier this am, treated immediately w cardizem bolus, with immediate response per medical attending. still w some secretions from trach, req. suctioning, Remains on t-piece increased 50% fio2 this morning, O2 sats WNL. No changes in neuro assess reported- cont to be nonresponsive- though less eye opening today, yesterday per report. 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 CXR stable. Ultrasound bilateral lower extremity negative for DVT. TSH 3rd gen minimally elevated, likely not contributing factor. Pt seen in room no visitors present, nurse at bedside administering meds. Pt with eyes closed, no eye opening or response to my exam are stimuli. No signs of distress. After exam call to dtr Maria Del Carmen to provide update-- review of this morning's documented assessments, diagnostics, treatments initiated, potential risks associated, ongoing condition and prognosis, patient remains high risk for ongoing setbacks asked complications related to prolonged hospitalization and immobile, chronically ill status. All questions answered, she is appreciative of update. D/w primary RN. . (Yuridia Almeida) Advance Directives Living Will: Never completed Health Care Surrogate: Never completed Durable Power of Head Charger: Never completed (Yuridia Almeida) Advance Directive Specifics Health Care Surrogate(s): No known written advance directives. Patient currently incapacitated to make her healthcare decisions. According to [place] statutes health care proxy decision-making falls to the majority of adult children. Patient has 3 children. . (Yuridia Almeida) Objective Vital Signs Date Time Temp Pulse Resp B/P Pulse Ox O2 Delivery O2 Flow Rate FiO2 02/01/17 16:18 97.5 79 25 125/80 100 02/01/17 12:19 96.7 79 23 120/85 100 02/01/17 09:00 97 T-Piece 50 02/01/17 08:23 98.4 159 28 155/91 99 02/01/17 08:00 97 T-Piece 28 02/01/17 07:32 100 T-piece 5.00 28 02/01/17 07:32 100 T-piece 5.00 28 02/01/17 04:00 97.6 89 20 140/72 97 02/01/17 00:00 95.3 87 20 128/78 100 01/31/17 22:00 89 01/31/17 20:55 100 Trach Collar 5.00 28 01/31/17 20:55 100 Trach Collar 5.00 28 01/31/17 20:30 T-Piece 28 01/31/17 20:00 97.2 86 20 138/79 95 Intake & Output 02/01/17 02/01/17 07:00 19:00 Intake Total 1140 ml Output Total 1000 ml 575 ml Balance 140 ml -575 ml Tube Feeding 720 ml Other 420 ml Output Urine Total 1000 ml 575 ml # Bowel Movements 0 Physical Exam CONSTITUTIONAL/GENERAL: Eyes closed non-responsive to exam, on T piece TUBES/LINES/DRAINS: Peripheral IV upper extremity, Tracheostomy, PEG, Brown, SCDs, multipodus boots. CARDIOVASCULAR: Irregular rate and rhythm, no murmur. RESPIRATORY/CHEST: trach midline. Symmetric, unlabored respirations via trach to 50% FIO2 on T piece . Clear to auscultation. GASTROINTESTINAL: Abdomen soft, nondistended. Bowel sounds active. +PEG LUQ site asymptomatic, +TF infusing GENITOURINARY: Without palpable bladder distension. Brown catheter in place- clear yellow urine. NEUROLOGICAL: Eyes closed, does not open to exam. No Response to stimuli. No withdrawal to pain stimuli to extremities. PSYCHIATRIC: limited assess due to clinical condition-- no signs of anxiety or distress . (Yuridia Almeida) Diagnostic Tests Laboratory Laboratory Tests Test 01/30/17 01/31/17 02/01/17 07:42 10:27 13:12 White Blood Count 11.1 TH/MM3 9.2 TH/MM3 (4.0-11.0) (4.0-11.0) Red Blood Count 3.89 MIL/MM3 3.64 MIL/MM3 (4.00-5.30) (4.00-5.30) Hemoglobin 9.7 GM/DL 9.1 GM/DL (11.6-15.3) (11.6-15.3) Hematocrit 30.9 % 28.7 % (35.0-46.0) (35.0-46.0) Mean Corpuscular Volume 79.4 FL 78.8 FL (80.0-100.0) (80.0-100.0) Mean Corpuscular Hemoglobin 24.8 PG 24.9 PG (27.0-34.0) (27.0-34.0) Mean Corpuscular Hemoglobin 31.3 % 31.6 % Concent (32.0-36.0) (32.0-36.0) Red Cell Distribution Width 20.0 % 19.9 % (11.6-17.2) (11.6-17.2) Platelet Count 370 TH/MM3 337 TH/MM3 (150-450) (150-450) Mean Platelet Volume 9.0 FL 8.4 FL (7.0-11.0) (7.0-11.0) Neutrophils (%) (Auto) 75.4 % 69.7 % (16.0-70.0) (16.0-70.0) Lymphocytes (%) (Auto) 16.3 % 18.0 % (9.0-44.0) (9.0-44.0) Monocytes (%) (Auto) 5.4 % (0.0-8.0) 7.2 % (0.0-8.0) Eosinophils (%) (Auto) 2.2 % (0.0-4.0) 3.8 % (0.0-4.0) Basophils (%) (Auto) 0.7 % (0.0-2.0) 1.3 % (0.0-2.0) Neutrophils # (Auto) 8.4 TH/MM3 6.4 TH/MM3 (1.8-7.7) (1.8-7.7) Lymphocytes # (Auto) 1.8 TH/MM3 1.7 TH/MM3 (1.0-4.8) (1.0-4.8) Monocytes # (Auto) 0.6 TH/MM3 0.7 TH/MM3 (0-0.9) (0-0.9) Eosinophils # (Auto) 0.2 TH/MM3 0.3 TH/MM3 (0-0.4) (0-0.4) Basophils # (Auto) 0.1 TH/MM3 0.1 TH/MM3 (0-0.2) (0-0.2) CBC Comment DIFF FINAL DIFF FINAL Differential Comment Sodium Level 138 MEQ/L 140 MEQ/L (136-145) (136-145) Potassium Level 3.6 MEQ/L 3.2 MEQ/L (3.5-5.1) (3.5-5.1) Chloride Level 98 MEQ/L 100 MEQ/L (98-107) (98-107) Carbon Dioxide Level 31.4 MEQ/L 31.2 MEQ/L (21.0-32.0) (21.0-32.0) Anion Gap 9 MEQ/L (5-15) 9 MEQ/L (5-15) Blood Urea Nitrogen 26 MG/DL (7-18) 29 MG/DL (7-18) Creatinine 0.35 MG/DL 0.46 MG/DL (0.50-1.00) (0.50-1.00) Estimat Glomerular Filtration 187 ML/MIN 137 ML/MIN Rate (>89) (>89) Random Glucose 128 MG/DL 151 MG/DL (74-106) (74-106) Calcium Level 8.9 MG/DL 8.4 MG/DL (8.5-10.1) (8.5-10.1) Ammonia 52 MCMOL/L 70 MCMOL/L (11-32) (11-32) Prothrombin Time 11.9 SEC (9.8-11.6) Prothromb Time International 1.1 RATIO Ratio Activated Partial 34.5 SEC Thromboplast Time (24.3-30.1) Total Bilirubin 0.4 MG/DL (0.2-1.0) Aspartate Amino Transf 26 U/L (15-37) (AST/SGOT) Alanine Aminotransferase 32 U/L (10-53) (ALT/SGPT) Alkaline Phosphatase 120 U/L (45-117) B-Type Natriuretic Peptide 689 PG/ML (0-100) Total Protein 6.5 GM/DL (6.4-8.2) Albumin 2.0 GM/DL (3.4-5.0) Thyroid Stimulating Hormone 4.160 uIU/ML 3rd Gen (0.358-3.740) (Yuridia Almeida) Result Diagram: 02/01/17 1312 02/01/17 1312 Imaging Last Impressions Lower Extremity Ultrasound 02/01/17 0000 Signed Impressions: Service Date/Time: Wednesday, February 01, 2017 13:23 - CONCLUSION: Normal examination. Gray Veronica MD Chest X-Ray 02/01/17 0000 Signed Impressions: Service Date/Time: Wednesday, February 01, 2017 08:45 - CONCLUSION: 1. Stable tracheostomy. 2. Mild interstitial prominence may reflect slight positive fluid balance. Christiano Villagran MD Brain MRI 01/06/17 0000 Signed Impressions: Service Date/Time: January 14:19 - CONCLUSION: Continued evolutionary changes of large bilateral frontal lobe infarcts. Sami Mccarthy MD Abdomen X-Ray 11/26/16 0000 Signed Impressions: Service Date/Time: Saturday, November 26, 2016 10:18 - CONCLUSION: Distended stomach otherwise nonspecific abdomen. K. David Murillo MD Procedures 11/22 - PEG placement 11/30 - tracheostomy (Yuridia Almeida) Assessment and Plan Disease Oriented Problem List: (1) CVA (cerebral vascular accident) (2) Moyamoya disease (3) Seizure Comment: On Keppra . (4) Generalized weakness Symptom Scale: (1) Seizure 0-10 Scale: Unable to quantify (2) Generalized weakness 0-10 Scale: Unable to quantify (3) Dyspnea 0-10 Scale: Unable to quantify (4) Constipation 0-10 Scale: Unable to quantify (5) Encephalopathy 0-10 Scale: Unable to quantify Pertinent Non-Medical Issues Psychosocial: Single. Has 2 daughters and one son. Spiritual: unknown. Legal: Patient is incapacitated to make healthcare decisions. No known written advanced directives. According to [place] Statutes, health care proxy decision making falls to majority of adult children. Patient has 2 daughters (Maria Del Carmen, Marcelo) and 1 son (Dwight). Ethical issues impacting care: No known concerns at this time. . Important Contacts * Maria Del Carmen Rob, daughter: [phone] * Marcelo Rivas, daughter: [phone] * Dwight Rivas, son: [phone] . Prognosis MRI/EEG reviewed by neurology, prognosis felt to be poor, infarct noted to be huge. Repeat MRI done 12/[address] Flores and he feels that she may regain some ability to speak but does note that the infarct was a huge right frontal CVA and increased size of the left frontal CVA. EEG showed some left "sharps" and his recommendation was to continue Keppra. Prognosis remains poor in light of the most current studies. Code Status: Full Code Plan * Patient is incapacitated to make healthcare decisions. No known written advanced directives. According to [place] Statutes, health care proxy decision making falls to majority of adult children. Patient has 2 daughters (Marcelo Joyce) and 1 son (Dwight). * CODE STATUSFULL CODE * GOALS: Goals have been established as aggressive. There have been differing opinions between the 2 daughters regarding DNR status ; they would continue full CODE STATUS until the family could reach a consensus. Palliative available as needed if there is a change in condition/to revisit goals with family as needed. 02/01/17 : Spoke w dtcarolina Joyce, update provided , goals remain aggressive. SYMPTOMS: * Seizure: hx seizures 2/2 CVA; EEG showed "left sharps" and was continued per neurology. She remains on Keppra, no recent seizures reported. Neuro cont to follow. Tegratol added by neuro. * Weakness: due to prolonged hospital course, bilateral infarcts. Not regaining any purposeful or spontaneous movements as of yet. PT continues to follow working with bed mobility requiring maximum assistance, not demonstrating any participation. Placement is pending-- possible acceptance at [facility] pending bed availability. Case management following. * Dyspnea: Off sedation. tolerating T Piece. Off abx. + some beige secretions req . sx. O2 sats stable. No signs of tachypnea, or dyspnea. She remains at risk for complications due to severe mitral regurgitation, tracheostomy and immobility. * Encephalopathy: no change in alertness or responsiveness. Dr. Flores following. Repeat MRI with no changes. recent repeat eeg= no seizure, + mod to severe encephalopathy * Constipation: Resolved with regular bowel movements. Palliative care has established goals with pt family. Palliative available PRN for any changes in condition for clarification of goals of treatment / weighing benefits/burdens of treatment options, or for any symptoms of palliative concern. . (Yuridia Almeida) Attestation To help prompt me to consider important information that might be impacting today's encounter and assessment, information from prior notes written by myself or my colleagues may have been "brought forward" into today's note. My signature on this note, however, is an attestation that I personally performed the exam, history, and/or decision-making noted today, and, unless otherwise indicated, the interactions with patient, family, and staff as well as the review of records all occurred today. I also attest that the listed assessment and stated plan reflect my best clinical judgment today based on the combination of historical information, prior notes, and today's exam/ interactions. When time spent is documented, it refers only to time spent today by the signer, or if indicated, combined time spent today by collaborating physician/nurse practitioner. (Yuridia Almeida) Collaborating MD Comments Chart reviewed. Cased discussed with palliative care OFFICE LEAD. Above note reviewed and I concur. . (Stephen Lombardo MD) Yuridia Almeida Feb 01, 2017 16:58 Stephen Lombardo MD May 14, 2017 14:48
--- NOTE | 2017-02-01 18:08 | HHI.PR ---
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 Opens eyes, not tracking Has episodes of Cheyyne Suazo breathing Objective Vital Signs Vital Signs Date Time Temp Pulse Resp B/P Pulse Ox O2 Delivery O2 Flow Rate FiO2 02/01/17 16:18 97.5 79 25 125/80 100 02/01/17 12:19 96.7 79 23 120/85 100 02/01/17 09:00 97 T-Piece 50 02/01/17 08:23 98.4 159 28 155/91 99 02/01/17 08:00 97 T-Piece 28 02/01/17 07:32 100 T-piece 5.00 28 02/01/17 07:32 100 T-piece 5.00 28 02/01/17 04:00 97.6 89 20 140/72 97 02/01/17 00:00 95.3 87 20 128/78 100 01/31/17 22:00 89 01/31/17 20:55 100 Trach Collar 5.00 01/31/17 20:55 100 Trach Collar 5.00 28 01/31/17 20:30 T-Piece 28 01/31/17 20:00 97.2 86 20 138/79 95 I/O 01/31/17 01/31/17 01/31/17 02/01/17 02/01/17 02/01/17 07:00 15:00 23:00 07:00 15:00 23:00 Intake Total 870 ml 300 ml 840 ml Output Total 500 ml 500 ml 500 ml 575 ml Balance 870 ml -500 ml -200 ml 340 ml -575 ml Tube Feeding 470 ml 720 ml Other 400 ml 300 ml 120 ml Output Urine Total 500 ml 500 ml 500 ml 575 ml # Bowel Movements 0 0 Result Diagram: 02/01/17 1312 02/01/17 1312 Objective Remarks GENERAL: MBMN WF, on Trach collar SKIN: Warm and dry. HEAD: Normocephalic. EYES: No scleral icterus. No injection or drainage. NECK: Supple, trachea midline. No JVD or lymphadenopathy. has trach CARDIOVASCULAR: Regular rate and rhythm without murmurs, gallops, or rubs. RESPIRATORY: Breath sounds equal bilaterally. No accessory muscle use. GASTROINTESTINAL: Abdomen soft, non-tender, nondistended. has PEG MUSCULOSKELETAL: No cyanosis, or edema. BACK: Nontender without obvious deformity. No CVA tenderness. A/P Assessment and Plan RF, S/P Trach CVA Arango arango disease CAD COPD SZ disorder PLAN: Aerosol nebs Cont trach collar supplement 02 Cont TF Trach suction prn. Levsin 0.125 mg q 8 hrs DW RT at [facility] MD Feb 01, 2017 18:08
[2017-02-01] MEDS ORDERED: POTASSIUM CHLORIDE 25 MEQ EFFERVESCENT TAB PO ONE (19:00)
[2017-02-02] VITALS (9 sets, daily range): BP systolic 104–142; BP diastolic 65–90; PULSE 76–87; RESP 18–26; TEMP 95.1–97.5; O2SAT 95–100
[2017-02-02] MEDS: INSULIN NovoLIN REGULAR SUPPLEMENTAL SCALE SQ SCH (02:26)
[2017-02-02] MEDS: CHLORHEXIDINE GLUCONATE 2 % 1 PACK (2 CLOTHS) TOP SCH (03:33)
[2017-02-02] MEDS: FREE WATER G-TUBE SCH ×3 (05:01→17:50)
[2017-02-02] MEDS: HYOSCYAMINE 0.125 MG TAB G-TUBE SCH ×3 (05:01→21:24)
[2017-02-02] MEDS: SENNOSIDES SYRUP 8.8 MG/5 ML CUP G-TUBE SCH ×2 (09:00→21:23)
[2017-02-02] MEDS: FOLIC ACID 1 MG TAB OG-TUBE SCH (09:00)
[2017-02-02] MEDS: JUVEN POWDER 1 PACK G-TUBE SCH ×2 (09:00→21:20)
[2017-02-02] MEDS: SODIUM CHLORIDE 0.9% FLUSH 10 ML FLUSH IV FLUSH SCH ×2 (09:00→21:23)
[2017-02-02] MEDS: FERROUS SULFATE 300 MG /5ML UDC PEG SCH ×2 (09:35→21:22)
[2017-02-02] MEDS: levETIRAcetam 500 MG/5 ML UDC NG SCH ×2 (09:35→21:21)
[2017-02-02] MEDS: carBAMazepine SUSP 200 MG/10 ML UDC PEG SCH ×2 (09:35→21:22)
[2017-02-02] MEDS: ENOXAPARIN SODIUM 100 MG/ML SYRINGE SQ SCH ×2 (09:35→21:22)
[2017-02-02] MEDS: FAMOTIDINE 20 MG TAB NG SCH ×2 (09:37→21:22)
[2017-02-02] MEDS: LACTULOSE SYRUP 20 GM/30 ML CUP G-TUBE SCH ×3 (09:37→17:50)
[2017-02-02] MEDS: ASCORBIC ACID 500 MG TAB PEG SCH ×2 (09:37→21:22)
[2017-02-02] MEDS: METOPROLOL TARTRATE 25 MG TAB G-TUBE SCH ×2 (09:38→21:22)
[2017-02-02] MEDS: ATORVASTATIN 40 MG TAB G-TUBE SCH (09:38)
[2017-02-02] MEDS: BROMOCRIPTINE MESYLATE 2.5 MG TAB OG-TUBE SCH ×2 (09:38→21:22)
[2017-02-02] MEDS: ASPIRIN 81 MG CHEW TAB NG SCH (09:38)
[2017-02-02 10:15] LABS: INTERNATIONAL NORMALIZED RATIO 1.1 RATIO; PROTHROMBIN TIME - PATIENT 12.2 SEC (9.8-11.6)
--- NOTE | 2017-02-02 10:22 | HHI.PR ---
Subjective Remarks Follow-up A. fib. Telemetry shows sinus rhythm. Discussed with RN, patient having loose stools from lactulose. Patient also received one-time dose of Lasix yesterday from [facility] because of abnormal chest x-ray showing congestion with elevated BNP. Objective Vitals Vital Signs Date Time Temp Pulse Resp B/P Pulse Ox O2 Delivery O2 Flow Rate FiO2 02/02/17 08:17 95.9 86 26 121/77 100 02/02/17 04:00 97.5 82 20 104/65 95 02/02/17 01:04 83 02/02/17 00:00 97.0 83 20 125/80 100 02/01/17 22:35 97 T-Piece 7.00 40 02/01/17 20:00 100 T-piece 7.00 40 02/01/17 20:00 95.5 82 20 121/69 97 02/01/17 16:18 97.5 79 25 125/80 100 02/01/17 12:19 96.7 79 23 120/85 100 I/O 02/01/17 02/01/17 02/01/17 02/02/17 02/02/17 02/02/17 07:00 15:00 23:00 07:00 15:00 23:00 Intake Total 840 ml 784 ml 550 ml Output Total 500 ml 575 ml 200 ml 300 ml Balance 340 ml -575 ml 584 ml 250 ml Tube Feeding 720 ml 584 ml 350 ml Other 120 ml 200 ml 200 ml Output Urine Total 500 ml 575 ml 200 ml 300 ml # Voids 1 # Bowel Movements 0 Result Diagram: 02/01/17 1312 02/01/17 1312 Imaging Last Impressions Lower Extremity Ultrasound 02/01/17 0000 Signed Impressions: Service Date/Time: Wednesday, February 01, 2017 13:23 - CONCLUSION: Normal examination. Gray Veronica MD Chest X-Ray 02/01/17 0000 Signed Impressions: Service Date/Time: Wednesday, February 01, 2017 08:45 - CONCLUSION: 1. Stable tracheostomy. 2. Mild interstitial prominence may reflect slight positive fluid balance. Christiano Villagran MD Brain MRI 01/06/17 0000 Signed Impressions: Service Date/Time: January 14:19 - CONCLUSION: Continued evolutionary changes of large bilateral frontal lobe infarcts. Sami Mccarthy MD Abdomen X-Ray 11/26/16 0000 Signed Impressions: Service Date/Time: Saturday, November 26, 2016 10:18 - CONCLUSION: Distended stomach otherwise nonspecific abdomen. Jackson Murillo MD Objective Remarks GENERAL: Pt encountered laying a bed, T-piece in place, eyes closed with rafiq Suazo breathing SKIN: Warm and dry. HEAD: Normocephalic. EYES: No scleral icterus. No injection or drainage. NECK: Supple, t-piece in place. CARDIOVASCULAR: Rate and rhythm without murmurs, gallops, or rubs. RESPIRATORY: Breath sounds equal bilaterally, without rhonchi or wheezes. On respirator. GASTROINTESTINAL: Abdomen soft, non-tender, nondistended. G-tube in place MUSCULOSKELETAL: No cyanosis, or edema. bilateral SCD's in place as were bilateral off loading boots. Neurological: Pt not responding to commands, no spontaneous movement observed Procedures PEG 11/24/2016 Percutaneous tracheostomy. 11/18/2016 Moderate encephalopathy with suggestion of left temporal region cortical irritability. No active seizures. Clinical correlation. 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 She was was admitted to [facility] emergency department 11/04/16 with difficulty getting her thoughts together. She was found to have multifocal nonhemorrhagic infarcts in left frontal and parietal regions, right frontal lobe and history of moyamoya disease. She was initially awake and following commands with weakness of RLE and some aphasia. She was transferred to [facility] where he had an cerebral angiogram consistent with moyamoya. There were plans to perform extracranial/intracranial bypass. However she had a seizure and ended up being intubated. She was found to have a new right frontal infarct area and she was started on Dilantin and Keppra and it was felt that she would not be a candidate for intervention. She has been intubated and apparently she has been tolerating C Pap trials to some extent but mental status prevents extubation. Treating team was discussing with family trach/PEG. Apparently family requested transfer back to [place] because they live locally here and wanted her closer to home. Patient remained under critical care medicine until . New onset A. fib with RVR. Two5URkssu of 4. Now with sinus rhythm status post Cardizem bolus, continue Lopressor 25 mg twice a day. Family agrees with anticoagulation with Lovenox and Coumadin. Discontinue aspirin when INR therapeutic. Follow-up echocardiogram Fluid overload with abnormal chest x-ray and elevated BNP likely related to A. fib with RVR. Patient improved after receiving Lasix. Repeat BMP and magnesium unremarkable. We'll continue to monitor Hypokalemia. Replaced with by mouth. Bilateral large frontal CVA Moyamoya Disease Seizure Disorder -Neuro following -Continue Keppra -Continue Tegretol -Follow for seizure activity -Daily Aspirin until INR therapeutic -Bromocriptine -Elevated ammonia level will increase lactulose to 45 mL 3 times a day to titrate to 3 loose stools a day. Patient having loose stools Chronic Respiratory Failure Hx of COPD Rafiq Suazo breathing -No exacerbations -Continue tracheostomy with oxygen. Multilobar pneumonia -Tobramycin provided as treatment, course ended on 01/20/17. -Monitor Dysphagia -Jevity 1.5 through PEG tube. Sacral/Coccyx wound -Specialty bed ordered -Wound care following DVT prophylaxis -SCDs Discharge Planning Placement pending, case management following Shahram Obrien MD Feb 02, 2017 10:22
[2017-02-02 10:48] LABS: BICARBONATE 30.6 MEQ/L (21.0-32.0); MAGNESIUM 2.1 MG/DL (1.5-2.5); POTASSIUM 4.1 MEQ/L (3.5-5.1)
[2017-02-02] MEDS: CHLORHEXIDINE 0.12% (ORAL KIT) 15 ML CUP MT SCH ×2 (13:25→19:52)
--- NOTE | 2017-02-02 15:21 | HHI.PR ---
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 Opens eyes, not tracking Has episodes of Cheyyne Suazo breathing has mod amount of trach secretions. Objective Vital Signs Vital Signs Date Time Temp Pulse Resp B/P Pulse Ox O2 Delivery O2 Flow Rate FiO2 02/02/17 12:15 95.6 79 24 141/90 100 02/02/17 10:59 100 T-piece 40 02/02/17 08:17 95.9 86 26 121/77 100 02/02/17 04:00 97.5 82 20 104/65 95 02/02/17 01:04 83 02/02/17 00:00 97.0 83 20 125/80 100 02/01/17 22:35 97 T-Piece 7.00 40 02/01/17 20:00 100 T-piece 7.00 40 02/01/17 20:00 95.5 82 20 121/69 97 02/01/17 16:18 97.5 79 25 125/80 100 I/O 02/01/17 02/01/17 02/01/17 02/02/17 02/02/17 02/02/17 07:00 15:00 23:00 07:00 15:00 23:00 Intake Total 840 ml 784 ml 550 ml Output Total 500 ml 575 ml 200 ml 300 ml Balance 340 ml -575 ml 584 ml 250 ml Tube Feeding 720 ml 584 ml 350 ml Other 120 ml 200 ml 200 ml Output Urine Total 500 ml 575 ml 200 ml 300 ml # Voids 1 # Bowel Movements 0 Result Diagram: 02/01/17 1312 02/02/17 0943 Objective Remarks GENERAL: MBMN WF, on Trach collar SKIN: Warm and dry. HEAD: Normocephalic. EYES: No scleral icterus. No injection or drainage. NECK: Supple, trachea midline. No JVD or lymphadenopathy. has trach CARDIOVASCULAR: Regular rate and rhythm without murmurs, gallops, or rubs. RESPIRATORY: Breath sounds equal bilaterally. No accessory muscle use. GASTROINTESTINAL: Abdomen soft, non-tender, nondistended. has PEG MUSCULOSKELETAL: No cyanosis, or edema. BACK: Nontender without obvious deformity. No CVA tenderness. A/P Assessment and Plan RF, S/P Trach CVA Arango arango disease CAD COPD SZ disorder PLAN: Aerosol nebs Cont trach collar supplement 02 Cont TF Trach suction prn. Levsin 0.125 mg q 8 hrs DW RN at BS. Vernon Marx MD Feb 02, 2017 15:21
[2017-02-02] MEDS ORDERED: WARFARIN SOD 10 MG TAB PO SCH (16:00)
--- NOTE | 2017-02-02 16:09 | ECHRPT ---
Indication: Paroxysmal atrial fibrillation CONCLUSIONS Severe dilated left ventricle. Wall thickness is normal. The left ventricular systolic function is moderately reduced with an estimated ejection fraction in the range of 35-40%. Doppler parameters are consistent with a restrictive left ventricular filling pattern indicative of decreased left ventricular diastolic compliance and increase left atrial pressure (grade 3 diastolic dysfuncti on). There is severe tricuspid regurgitation. There is severe pulmonary hypertension present ( > 70 mmHg). Severe mitral valve regurgitation. BP: 155 / 91 HR: 159 Rhythm: Sinus MEASUREMENTS (Male / Female) Normal Values Technical Quality:Good 2D ECHO LV Diastolic Diameter PLAX 5.6 cm 4.2 - 5.9 / 3.9 - 5.3 cm LV Systolic Diameter PLAX 4.6 cm IVS Diastolic Thickness 0.9 cm 0.6 - 1.0 / 0.6 - 0.9 cm LVPW Diastolic Thickness 0.9 cm 0.6 - 1.0 / 0.6 - 0.9 cm LV Relative Wall Thickness 0.3 LVOT Diameter 2.1 cm Aortic Root Diameter 2.9 cm LA Systolic Diameter LX 4.6 cm 3.0 - 4.0 / 2.7 - 3.8 cm LA Volume Index 63.3 cm/m 16 - 28 cm/m M-MODE AV Cusp Separation MM 1.9 cm DOPPLER AV Peak Velocity 111.0 cm/s AV Peak Gradient 4.9 mmHg AV Mean Gradient 2.0 mmHg AV Velocity Time Integral 15.4 cm LVOT Peak Velocity 56.4 cm/s LVOT Peak Gradient 1.3 mmHg LVOT Velocity Time Integral 7.7 cm LVOT Cardiac Index 1956.2 cm/minm AV Area Cont Eq vti 1.7 cm AV Area Cont Eq pk 1.8 cm Mitral E Point Velocity 147.0 cm/s Mitral A Point Velocity 54.9 cm/s Mitral E to A Ratio 2.7 LV E' Lateral Velocity 7.9 cm/s Mitral E to LV E' Lateral Ratio 18.6 LV E' Septal Velocity 2.1 cm/s Mitral E to LV E' Septal Ratio 68.7 TR Peak Velocity 398.0 cm/s TR Peak Gradient 63.4 mmHg PV Peak Velocity 56.4 cm/s PV Peak Gradient 1.3 mmHg FINDINGS LEFT VENTRICLE Mildly dilated left ventricle. Wall thickness is normal. The left ventricular systolic function is moderately reduced with an estimated ejection fraction in the range of 40-45%. There is akinesis of the apical 1/3, but with an overall EF of 40-45%. This is represented best in t he apical views. Doppler parameters are consistent with a restrictive left ventricular filling pattern indicat beto of decreased left ventricular diastolic compliance and increase left atrial pressure (grade 3 diastolic dysfunction). RIGHT VENTRICLE Normal right ventricular size and systolic function. LEFT ATRIUM The left atrial size is moderately dilated. The Biplane measurement for the LA waas 58.5 ml/m2 RIGHT ATRIUM The right atrial size is moderately dilated ATRIAL SEPTUM Normal atrial septal thickness without atrial level shunting by limited color doppler interrogation. Normal atrial septal thickness without atrial level shunting by limited color doppler interrogation. AORTA The aortic root and proximal ascending aorta are normal in size on limited imaging. MITRAL VALVE Mild thickening of the mitral valve leaflets. Severe mitral valve regurgitation. AORTIC VALVE Trileaflet aortic valve. No aortic valve stenosis or regurgitation. TRICUSPID VALVE Structurally normal tricuspid valve. There is severe tricuspid regurgitation. There is estimated severe pulmonary hypertension present ( > 70 mmHg). PULMONARY VALVE Trivial pulmonary valve regurgitation. PERICARDIUM No pericardial effusion. Aldo Sethi MD (Electronically Signed) Final Date:02 February 2017 16:07
[2017-02-03] VITALS (11 sets, daily range): BP systolic 116–142; BP diastolic 76–88; PULSE 80–89; RESP 18–22; TEMP 96.5–97.5; O2SAT 96–100
[2017-02-03] MEDS: FREE WATER G-TUBE SCH ×4 (00:07→16:58)
[2017-02-03] MEDS: CHLORHEXIDINE GLUCONATE 2 % 1 PACK (2 CLOTHS) TOP SCH (03:12)
[2017-02-03] MEDS: HYOSCYAMINE 0.125 MG TAB G-TUBE SCH ×3 (05:13→22:35)
[2017-02-03] MEDS: SENNOSIDES SYRUP 8.8 MG/5 ML CUP G-TUBE SCH ×2 (07:56→21:00)
[2017-02-03] MEDS: FERROUS SULFATE 300 MG /5ML UDC PEG SCH ×2 (07:56→22:35)
[2017-02-03] MEDS: LACTULOSE SYRUP 20 GM/30 ML CUP G-TUBE SCH ×3 (07:56→16:50)
[2017-02-03] MEDS: levETIRAcetam 500 MG/5 ML UDC NG SCH ×2 (07:56→22:35)
[2017-02-03] MEDS: carBAMazepine SUSP 200 MG/10 ML UDC PEG SCH ×2 (07:56→22:35)
[2017-02-03] MEDS: FAMOTIDINE 20 MG TAB NG SCH ×2 (07:57→22:35)
[2017-02-03] MEDS: METOPROLOL TARTRATE 25 MG TAB G-TUBE SCH ×2 (07:57→22:35)
[2017-02-03] MEDS: ASCORBIC ACID 500 MG TAB PEG SCH ×2 (07:57→22:35)
[2017-02-03] MEDS: BROMOCRIPTINE MESYLATE 2.5 MG TAB OG-TUBE SCH ×2 (07:57→22:42)
[2017-02-03] MEDS: ATORVASTATIN 40 MG TAB G-TUBE SCH (07:58)
[2017-02-03] MEDS: ASPIRIN 81 MG CHEW TAB NG SCH (07:58)
[2017-02-03] MEDS: FOLIC ACID 1 MG TAB OG-TUBE SCH (07:58)
[2017-02-03] MEDS: CHLORHEXIDINE 0.12% (ORAL KIT) 15 ML CUP MT SCH (08:00)
[2017-02-03 08:08] LABS: INTERNATIONAL NORMALIZED RATIO 1.3 RATIO
[2017-02-03] MEDS: SODIUM CHLORIDE 0.9% FLUSH 10 ML FLUSH IV FLUSH SCH ×2 (08:18→22:36)
[2017-02-03] MEDS: JUVEN POWDER 1 PACK G-TUBE SCH ×2 (08:18→21:00)
--- NOTE | 2017-02-03 08:23 | HHI.PR ---
Subjective Remarks Follow-up A. fib. Echo results noted. Patient about the same no significant change discussed with RN. She is having loose stools from lactulose. Objective Vitals Vital Signs Date Time Temp Pulse Resp B/P Pulse Ox O2 Delivery O2 Flow Rate FiO2 02/03/17 04:10 96.5 83 18 137/84 100 02/03/17 01:59 97 T-Piece 7.00 40 02/03/17 01:01 96.7 83 20 133/77 100 02/03/17 00:49 100 T-piece 40 02/02/17 20:26 96.8 76 18 123/75 96 02/02/17 19:20 86 02/02/17 18:00 T-piece 6.00 40 02/02/17 16:00 95.1 87 22 142/89 100 02/02/17 12:15 95.6 79 24 141/90 100 02/02/17 10:59 100 T-piece 40 02/02/17 09:30 99 T-Piece 7.00 40 I/O 02/02/17 02/02/17 02/02/17 02/03/17 02/03/17 02/03/17 07:00 15:00 23:00 07:00 15:00 23:00 Intake Total 550 ml 777 ml 570 ml Output Total 300 ml 325 ml 300 ml 450 ml Balance 250 ml -325 ml 477 ml 120 ml Tube Feeding 350 ml 577 ml 370 ml Other 200 ml 200 ml 200 ml Output Urine Total 300 ml 325 ml 300 ml 450 ml # Bowel Movements 1 Result Diagram: 02/01/17 1312 02/02/17 0943 Imaging Last Impressions Lower Extremity Ultrasound 02/01/17 0000 Signed Impressions: Service Date/Time: Wednesday, February 01, 2017 13:23 - CONCLUSION: Normal examination. Gray Veronica MD Chest X-Ray 02/01/17 0000 Signed Impressions: Service Date/Time: Wednesday, February 01, 2017 08:45 - CONCLUSION: 1. Stable tracheostomy. 2. Mild interstitial prominence may reflect slight positive fluid balance. Christiano Villagran MD Brain MRI 01/06/17 0000 Signed Impressions: Service Date/Time: January 14:19 - CONCLUSION: Continued evolutionary changes of large bilateral frontal lobe infarcts. Sami Mccarthy MD Abdomen X-Ray 11/26/16 0000 Signed Impressions: Service Date/Time: Saturday, November 26, 2016 10:18 - CONCLUSION: Distended stomach otherwise nonspecific abdomen. Jackson Murillo MD Objective Remarks GENERAL: Pt encountered laying a bed, T-piece in place, eyes closed SKIN: Warm and dry. HEAD: Normocephalic. EYES: No scleral icterus. No injection or drainage. NECK: Supple, t-piece in place. CARDIOVASCULAR: Rate and rhythm without gallops, or rubs. RESPIRATORY: Breath sounds equal bilaterally, without rhonchi or wheezes. On respirator. GASTROINTESTINAL: Abdomen soft, non-tender, nondistended. G-tube in place MUSCULOSKELETAL: No cyanosis, or edema. bilateral SCD's in place as were bilateral off loading boots. Neurological: Pt not responding to commands, no spontaneous movement observed Procedures PEG 11/24/2016 Percutaneous tracheostomy. 11/18/2016 Moderate encephalopathy with suggestion of left temporal region cortical irritability. No active seizures. Clinical correlation. Echocardiogram Severe dilated left ventricle. Wall thickness is normal. The left ventricular systolic function is moderately reduced with an estimated ejection fraction in the range of 35-40%. Doppler parameters are consistent with a restrictive left ventricular filling pattern indicative of decreased left ventricular diastolic compliance and increase left atrial pressure (grade 3 diastolic dysfunction). There is severe tricuspid regurgitation. There is severe pulmonary hypertension present ( > 70 mmHg). Severe mitral valve regurgitation. 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 She was was admitted to [facility] emergency department 11/04/16 with difficulty getting her thoughts together. She was found to have multifocal nonhemorrhagic infarcts in left frontal and parietal regions, right frontal lobe and history of moyamoya disease. She was initially awake and following commands with weakness of RLE and some aphasia. She was transferred to [facility] where he had an cerebral angiogram consistent with moyamoya. There were plans to perform extracranial/intracranial bypass. However she had a seizure and ended up being intubated. She was found to have a new right frontal infarct area and she was started on Dilantin and Keppra and it was felt that she would not be a candidate for intervention. She has been intubated and apparently she has been tolerating C Pap trials to some extent but mental status prevents extubation. Treating team was discussing with family trach/PEG. Apparently family requested transfer back to [place] because they live locally here and wanted her closer to home. Patient remained under critical care medicine until . New onset A. fib with RVR. [id number] of 4. Now with sinus rhythm status post Cardizem bolus, continue Lopressor 25 mg twice a day. Family agrees with anticoagulation with Lovenox and Coumadin. Discontinue aspirin when INR therapeutic. Acute systolic and diastolic heart failure. Patient improved after receiving Lasix. Start Lasix and MACKENZIE inhibitor continue Lopressor. Monitor electrolytes and renal function Hypokalemia. Replaced with by mouth. Bilateral large frontal CVA Moyamoya Disease Seizure Disorder -Neuro following -Continue Keppra -Continue Tegretol -Follow for seizure activity -Daily Aspirin until INR therapeutic -Bromocriptine -Elevated ammonia level will increase lactulose to 45 mL 3 times a day to titrate to 3 loose stools a day. Patient having loose stools Chronic Respiratory Failure Hx of COPD Mahad Suazo breathing -No exacerbations -Continue tracheostomy with oxygen. Multilobar pneumonia -Tobramycin provided as treatment, course ended on 01/20/17. -Monitor Dysphagia -Jevity 1.5 through PEG tube. Sacral/Coccyx wound -Specialty bed ordered -Wound care following DVT prophylaxis -SCDs Discharge Planning Placement pending, case management following Shahram Obrien MD Feb 03, 2017 08:23
[2017-02-03] MEDS: ENOXAPARIN SODIUM 100 MG/ML SYRINGE SQ SCH ×2 (11:37→22:34)
[2017-02-03] MEDS: FUROSEMIDE 20 MG TAB PO SCH (11:48)
[2017-02-03] MEDS ORDERED: WARFARIN SOD 10 MG TAB PO ONE (16:00)
[2017-02-03] MEDS: LISINOPRIL 5 MG TAB PO SCH (16:49)
--- NOTE | 2017-02-03 18:03 | HHI.PR ---
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 Has episodes of Cheyyne Suazo breathing has mod amount of trach secretions. Objective Vital Signs Vital Signs Date Time Temp Pulse Resp B/P Pulse Ox O2 Delivery O2 Flow Rate FiO2 02/03/17 16:22 97.4 87 22 141/80 100 02/03/17 12:38 97.2 82 18 116/81 100 02/03/17 08:55 100 T-piece 40 02/03/17 08:55 100 T-piece 40 02/03/17 08:25 96.5 89 18 125/88 100 02/03/17 04:10 96.5 83 18 137/84 100 02/03/17 01:59 97 T-Piece 7.00 40 02/03/17 01:01 96.7 83 20 133/77 100 02/03/17 00:49 100 T-piece 40 02/02/17 20:26 96.8 76 18 123/75 96 02/02/17 19:20 86 I/O 02/02/17 02/02/17 02/02/17 02/03/17 02/03/17 02/03/17 07:00 15:00 23:00 07:00 15:00 23:00 Intake Total 550 ml 777 ml 570 ml Output Total 300 ml 325 ml 300 ml 450 ml 350 ml Balance 250 ml -325 ml 477 ml 120 ml -350 ml Tube Feeding 350 ml 577 ml 370 ml Other 200 ml 200 ml 200 ml Output Urine Total 300 ml 325 ml 300 ml 450 ml 350 ml # Bowel Movements 1 1 Result Diagram: 02/01/17 1312 02/02/17 0943 Objective Remarks GENERAL: MBMN WF, on Trach collar SKIN: Warm and dry. HEAD: Normocephalic. EYES: No scleral icterus. No injection or drainage. NECK: Supple, trachea midline. No JVD or lymphadenopathy. has trach CARDIOVASCULAR: Regular rate and rhythm without murmurs, gallops, or rubs. RESPIRATORY: Breath sounds equal bilaterally. No accessory muscle use. GASTROINTESTINAL: Abdomen soft, non-tender, nondistended. has PEG MUSCULOSKELETAL: No cyanosis, or edema. BACK: Nontender without obvious deformity. No CVA tenderness. A/P Assessment and Plan RF, S/P Trach CVA Arango arango disease CAD COPD SZ disorder PLAN: Aerosol nebs Cont trach collar supplement 02 Cont TF Trach suction prn. Levsin 0.125 mg q 8 hrs DW RN at BS. Vernon Marx MD Feb 03, 2017 18:02
[2017-02-04] VITALS (8 sets, daily range): BP systolic 111–157; BP diastolic 69–89; PULSE 72–88; RESP 18–22; TEMP 95.6–97.5; O2SAT 92–100
[2017-02-04] MEDS: CHLORHEXIDINE GLUCONATE 2 % 1 PACK (2 CLOTHS) TOP SCH ×2 (04:00→23:04)
[2017-02-04] MEDS: FREE WATER G-TUBE SCH ×5 (06:00→23:04)
[2017-02-04] MEDS: HYOSCYAMINE 0.125 MG TAB G-TUBE SCH ×3 (06:19→23:00)
[2017-02-04] MEDS: CHLORHEXIDINE 0.12% (ORAL KIT) 15 ML CUP MT SCH ×2 (08:00→20:00)
[2017-02-04] MEDS: JUVEN POWDER 1 PACK G-TUBE SCH ×2 (09:00→21:00)
[2017-02-04] MEDS: ASPIRIN 81 MG CHEW TAB NG SCH (09:09)
[2017-02-04] MEDS: carBAMazepine SUSP 200 MG/10 ML UDC PEG SCH ×2 (09:09→22:56)
[2017-02-04] MEDS: LACTULOSE SYRUP 20 GM/30 ML CUP G-TUBE SCH ×3 (09:09→17:35)
[2017-02-04] MEDS: ENOXAPARIN SODIUM 100 MG/ML SYRINGE SQ SCH (09:09)
[2017-02-04] MEDS: levETIRAcetam 500 MG/5 ML UDC NG SCH ×2 (09:09→22:57)
[2017-02-04] MEDS: SODIUM CHLORIDE 0.9% FLUSH 10 ML FLUSH IV FLUSH SCH ×2 (09:10→21:00)
[2017-02-04] MEDS: SENNOSIDES SYRUP 8.8 MG/5 ML CUP G-TUBE SCH ×2 (09:10→22:56)
[2017-02-04] MEDS: ATORVASTATIN 40 MG TAB G-TUBE SCH (09:10)
[2017-02-04] MEDS: METOPROLOL TARTRATE 25 MG TAB G-TUBE SCH ×2 (09:10→23:00)
[2017-02-04] MEDS: FAMOTIDINE 20 MG TAB NG SCH ×2 (09:10→23:00)
[2017-02-04] MEDS: BROMOCRIPTINE MESYLATE 2.5 MG TAB OG-TUBE SCH ×2 (09:10→23:00)
[2017-02-04] MEDS: FERROUS SULFATE 300 MG /5ML UDC PEG SCH ×2 (09:10→22:56)
[2017-02-04] MEDS: FUROSEMIDE 20 MG TAB PO SCH (09:10)
[2017-02-04] MEDS: ASCORBIC ACID 500 MG TAB PEG SCH ×2 (09:10→22:57)
[2017-02-04] MEDS: FOLIC ACID 1 MG TAB OG-TUBE SCH (09:10)
[2017-02-04 09:36] LABS: INTERNATIONAL NORMALIZED RATIO 2.1 RATIO; PROTHROMBIN TIME - PATIENT 24.1 SEC (9.8-11.6)
[2017-02-04 10:19] LABS: BICARBONATE 28.7 MEQ/L (21.0-32.0); MAGNESIUM 2.1 MG/DL (1.5-2.5); POTASSIUM 3.7 MEQ/L (3.5-5.1)
--- NOTE | 2017-02-04 12:42 | PD.WCN.NOT ---
Wound Consult Description: Follow up of sacral/coccyx, right buttock, right ischium wounds Communicated with: ANDRE Alvarez Dr Recommendation: Sacrococcygeal wound- Santyl daily packed with 4x4's and dry cover Right buttock, Right ischium- Apply Single layer Xeroform over open wound beds. Prep periwounds with Cavilon skin prep. Cover Xeroform with bordered gauze dressing. Change dressings EVERY OTHER DAY and PRN for dislodgement or soiling. Additional Information: Patient was seen on for re-evaluation of patient known to advertising copy writer from [facility]. Patient was positioned to her left side for assessment and is noted on a specialty surface. Bordered gauze dressings and oil emulsion gauze removed from all 3 wounds. Sacrum wound presents as a pressure related full thickness skinloss measuring 3.34cm x 2.5cm x 3cm with 100% adherent yellow slough. Periwound is blanchable erythema. There is minimal drainage and mild odor noted. Wound was cleansed with NS and packed with Maxorb II cut into a long strip and secured with bordered gauze. Right buttock wound measures 2.3cm x 2cm x <0.1cm with ~100% red non granulating tissue in wound bed indicating partial thickness skinloss. Wound is measuring smaller than when last assessed and wound appears to be resolving. Wound was cleansed with NS and gauze, no active drainage noted. Xeroform was applied as ordered and gauze dressing was placed over wound bed with periwound skin prepped with Cavilon spray. Right ischium wound measures 2.3cm x 1.2cm x 0.2cm of 80% adipose tissue and ~20 % pink tissue indicating this is still a Stage III pressure injury compared to last assessment when seen by advertising copy writer. Wound was cleansed with NS and gauze, no active drainage noted, no odor noted. Maxorb II was placed over moist wound bed and secured with bordered gauze dressing. Patient is being followed by wound care team. Stephany Fang [facility] Feb 04, 2017 12:42 Reconsulted for "WOUND MANAGEMENT of sacral/coccyx wound" per MADISYN Naqvi Audra [facility] Feb 04, 2017 12:42
[2017-02-04] MEDS: COLLAGENASE OINT 30 GM TUBE TOPICAL SCH (15:00)
--- NOTE | 2017-02-04 15:06 | HHI.PR ---
Subjective Remarks Follow up on patient with bilateral frontal CVA, Moyamoya disease, seizure d/o, COPD, multilobar pneumonia and acute respiratory failure currently on T piece. Patient seen and examined, lying in bed. Eyes were closed for much of the session. However, she briefly opened her eyes towards the end of the visit. She did not track people in the room. Per RN (Kim) pt does have thich secretions requiring multiple suctioning events and having frequent stools. Per RN, no acute changes noted over night or since start of shift. VSS Objective Vitals Vital Signs Date Time Temp Pulse Resp B/P Pulse Ox O2 Delivery O2 Flow Rate FiO2 02/04/17 12:50 99 T-piece 5.00 40 02/04/17 12:50 99 T-piece 02/04/17 12:45 96.8 72 22 111/69 99 02/04/17 08:35 97.5 88 18 130/78 100 02/04/17 04:14 96.1 80 20 113/69 92 02/04/17 04:07 99 T-Piece 50 02/03/17 23:46 97.5 88 20 142/85 96 02/03/17 21:58 100 T-piece 50 02/03/17 21:58 100 T-piece 50 02/03/17 20:38 97.3 80 20 131/76 96 02/03/17 20:00 85 02/03/17 16:22 97.4 87 22 141/80 100 I/O 02/03/17 02/03/17 02/03/17 02/04/17 02/04/17 02/04/17 07:00 15:00 23:00 07:00 15:00 23:00 Intake Total 570 ml 1010 ml 620 ml Output Total 450 ml 350 ml Balance 120 ml -350 ml 1010 ml 620 ml Tube Feeding 370 ml 910 ml 420 ml Other 200 ml 100 ml 200 ml Output Urine Total 450 ml 350 ml # Bowel Movements 1 Result Diagram: 02/01/17 1312 02/04/17 0849 Imaging Last Impressions Lower Extremity Ultrasound 02/01/17 0000 Signed Impressions: Service Date/Time: Wednesday, February 01, 2017 13:23 - CONCLUSION: Normal examination. Gray Veronica MD Chest X-Ray 02/01/17 0000 Signed Impressions: Service Date/Time: Wednesday, February 01, 2017 08:45 - CONCLUSION: 1. Stable tracheostomy. 2. Mild interstitial prominence may reflect slight positive fluid balance. Christiano Villagran MD Brain MRI 01/06/17 0000 Signed Impressions: Service Date/Time: January 14:19 - CONCLUSION: Continued evolutionary changes of large bilateral frontal lobe infarcts. Sami Mccarthy MD Abdomen X-Ray 11/26/16 0000 Signed Impressions: Service Date/Time: Saturday, November 26, 2016 10:18 - CONCLUSION: Distended stomach otherwise nonspecific abdomen. Jackson Murillo MD Objective Remarks GENERAL: Pt encountered laying a bed, T-piece in place, eyes closed for much of visit, in NAD. SKIN: Warm and dry. HEAD: Normocephalic. EYES: No scleral icterus. No injection or drainage. NECK: Supple, t-piece in place. CARDIOVASCULAR: Regular rate and rhythm without murmurs, gallops, or rubs. RESPIRATORY: Breath sounds equal bilaterally, without rhonchi or wheezes. On respirator. At times sats noted to drop into the 80's whereupon pt would become tachypneic and sats would return to the 90's. GASTROINTESTINAL: Abdomen soft, non-tender, nondistended. G-tube in place MUSCULOSKELETAL: No cyanosis, or edema. bilateral SCD's in place as were bilateral off loading boots. Neurological: Pt not responding to commands, no spontaneous movement observed Procedures PEG 11/24/2016 Percutaneous tracheostomy. 11/18/2016 Moderate encephalopathy with suggestion of left temporal region cortical irritability. No active seizures. Clinical correlation. Echocardiogram Severe dilated left ventricle. Wall thickness is normal. The left ventricular systolic function is moderately reduced with an estimated ejection fraction in the range of 35-40%. Doppler parameters are consistent with a restrictive left ventricular filling pattern indicative of decreased left ventricular diastolic compliance and increase left atrial pressure (grade 3 diastolic dysfunction). There is severe tricuspid regurgitation. There is severe pulmonary hypertension present ( > 70 mmHg). Severe mitral valve regurgitation. Medications and IVs Current Medications Medications (Trade) Dose Ordered Sig/Ora Route Start Time Stop Time Status Last Admin (Peridex 0.12% Liq) 15 ml BID@08,20 MT 11/18/16 08:00 02/04/17 08:00 (NS Flush) 2 ml BID IV FLUSH 11/18/16 09:00 02/04/17 09:10 (Morphine Inj) 2 mg Q2H PRN IV 11/18/16 03:30 01/16/17 08:23 (Zofran Inj) 4 mg Q6H PRN IV 11/18/16 03:30 11/26/16 03:20 Miscellaneous Information 1 Q361D XX 11/18/16 03:30 11/18/16 03:30 (Chlorhexidine 2% Cloth) 3 pack Taper DAILY@04 TOP 11/18/16 04:00 11/14/17 03:59 01/17/17 04:00 (Chlorhexidine 2% Cloth) 3 pack UNSCH PRN TOP 11/18/16 03:30 (Aspirin Chew) 324 mg DAILY NG 11/18/16 09:00 02/04/17 09:09 (Parlodel) 2.5 mg Q12HR OG-TUBE 11/18/16 09:00 02/04/17 09:10 (Folate) 1 mg DAILY OG-TUBE 11/18/16 09:00 02/04/17 09:10 (Lopressor Inj) 5 mg Q6H PRN IV PUSH 11/23/16 22:45 01/12/17 03:20 (Dulcolax Supp) 10 mg DAILY PRN RECTAL 12/14/16 15:45 (Pepcid) 20 mg BID NG 12/21/16 21:00 02/04/17 09:10 (Keppra Liq) 1,500 mg Q12HR NG 12/21/16 21:00 02/04/17 09:09 (TEGretol LIQ) 200 mg Q12HR PEG 01/06/17 09:00 02/04/17 09:09 (Corby Powder) 1 pack BID G-TUBE 01/13/17 09:00 02/04/17 09:00 (Ferrous Sulfate Liq) 300 mg BID PEG 01/26/17 21:00 02/04/17 09:10 (Vitamin C) 500 mg BID PEG 01/26/17 21:00 02/04/17 09:10 (Free Water) 100 ml Q6HR G-TUBE 01/29/17 12:00 02/04/17 12:00 (Lopressor) 25 mg Q12HR G-TUBE 02/01/17 09:00 02/04/17 09:10 ([place] 5-325 Mg) 1 tab Q4H PRN G-TUBE 02/01/17 11:30 (Tylenol) 650 mg Q6H PRN G-TUBE 02/01/17 09:30 (Lipitor) 40 mg DAILY G-TUBE 02/01/17 09:00 02/04/17 09:10 (Levsin Liq) 0.125 mg Q4H PRN G-TUBE 02/01/17 11:15 (Levsin) 0.125 mg Q8HR G-TUBE 02/01/17 14:00 02/04/17 14:00 (Lactulose Liq) 45 ml TID G-TUBE 02/01/17 09:00 02/04/17 13:00 (Senna Liq) 8.8 mg BID G-TUBE 02/01/17 09:00 02/04/17 09:10 (D50w (Vial) Inj) 25 ml UNSCH PRN IV PUSH 02/01/17 09:15 Glucagon 1 mg 1 mg UNSCH PRN OTHER 02/01/17 09:15 (Coumadin Consult Pharmacy) 0 ml @ 0 mls/hr UNSCH OTHER 02/01/17 09:15 (Lasix) 20 mg DAILY PO 02/03/17 09:00 02/04/17 09:10 (Prinivil) 5 mg DAILY@1600 PO 02/03/17 16:00 02/03/17 16:49 (Coumadin) 5 mg DAILY@1600 PO 02/04/17 16:00 Urinary Catheter: Yes Assessment to: Continue Brown insert reason: Prolonged Immobilization Date of Insertion: December 29, 2016 A/P Problem List: (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 She was was admitted to [facility] emergency department 11/04/16 with difficulty getting her thoughts together. She was found to have multifocal nonhemorrhagic infarcts in left frontal and parietal regions, right frontal lobe and history of moyamoya disease. She was initially awake and following commands with weakness of RLE and some aphasia. She was transferred to [facility] where he had an cerebral angiogram consistent with moyamoya. There were plans to perform extracranial/intracranial bypass. However she had a seizure and ended up being intubated for status either 11/09 or 11/10.. She was found to have a new right frontal infarct area and she was started on Dilantin and Keppra and it was felt that she would not be a candidate for intervention. She has been intubated 9-10 days and apparently she has been tolerating C Pap trials to some extent but mental status prevents extubation. Treating team was discussing with family trach/PEG. Apparently family requested transfer back to [place] because they live locally here and wanted her closer to home. Patient remained under critical care medicine until 12/24/2016. Acute systolic and diastolic heart failure. -Patient improved after receiving Lasix. Start Lasix and MACKENZIE inhibitor continue Lopressor. Monitor electrolytes and renal function Hypokalemia. -Replaced with by mouth. Bilateral large frontal CVA Moyamoya Disease Seizure Disorder -Neuro following -Continue Keppra -Continue Tegretol -Follow for seizure activity -Daily Aspirin -Bromocriptine -Check Tegretol level, CBC/CMP, and ammonia level -Tegretol level WNL. Ammonia level elevated-reinstituted pts. order of lactulose 15 ml q 12 hrs -lactulose increased to 30 ml BId on 01/29/17, ammonia level noted to be 52 on 01/30/17. Chronic Respiratory Failure Hx of COPD -No exacerbations -Continue tracheostomy with oxygen. Multilobar pneumonia -Tobramycin provided as treatment, course ended on 01/20/17. -ID following Dysphagia -Jevity 1.5 through PEG tube. Diarrhea -Hold stool softener -labs for today and in am -current antibiotic is tobramycin 80 mg q 12 hrs NEB. -Pt not dehydrated. C. Diff assay ordered, results pending. -C'Diff assay negative. Sacral/Coccyx wound -Specialty bed ordered -Wound care following -Santyl ointment ordered DVT prophylaxis -SCDs Case discussed with pt's RN (Kim), and Dr. Obrien Discharge Planning Patient will need long-term care facility Trell Torres Jr. Feb 04, 2017 15:06
[2017-02-04] MEDS: WARFARIN SOD 5 MG TAB PO SCH (17:35)
[2017-02-04] MEDS: LISINOPRIL 5 MG TAB PO SCH (17:35)
--- NOTE | 2017-02-04 19:43 | HHI.PR ---
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 Has episodes of Cheyyne Suazo breathing Objective Vital Signs Vital Signs Date Time Temp Pulse Resp B/P Pulse Ox O2 Delivery O2 Flow Rate FiO2 02/04/17 18:15 100 T-piece 6.00 40 02/04/17 16:15 95.6 75 22 129/86 100 02/04/17 12:50 99 T-piece 5.00 40 02/04/17 12:50 99 T-piece 02/04/17 12:45 96.8 72 22 111/69 99 02/04/17 08:35 97.5 88 18 130/78 100 02/04/17 04:14 96.1 80 20 113/69 92 02/04/17 04:07 99 T-Piece 50 02/03/17 23:46 97.5 88 20 142/85 96 02/03/17 21:58 100 T-piece 50 02/03/17 21:58 100 T-piece 50 02/03/17 20:38 97.3 80 20 131/76 96 02/03/17 20:00 85 I/O 02/03/17 02/03/17 02/03/17 02/04/17 02/04/17 02/04/17 07:00 15:00 23:00 07:00 15:00 23:00 Intake Total 570 ml 1010 ml 620 ml Output Total 450 ml 350 ml 400 ml Balance 120 ml -350 ml 1010 ml 620 ml -400 ml Tube Feeding 370 ml 910 ml 420 ml Other 200 ml 100 ml 200 ml Output Urine Total 450 ml 350 ml 400 ml # Bowel Movements 1 Result Diagram: 02/01/17 1312 02/04/17 0849 Objective Remarks GENERAL: MBMN WF, on Trach collar SKIN: Warm and dry. HEAD: Normocephalic. EYES: No scleral icterus. No injection or drainage. NECK: Supple, trachea midline. No JVD or lymphadenopathy. has trach CARDIOVASCULAR: Regular rate and rhythm without murmurs, gallops, or rubs. RESPIRATORY: Breath sounds equal bilaterally. No accessory muscle use. GASTROINTESTINAL: Abdomen soft, non-tender, nondistended. has PEG MUSCULOSKELETAL: No cyanosis, or edema. BACK: Nontender without obvious deformity. No CVA tenderness. A/P Assessment and Plan RF, S/P Trach CVA Arango arango disease CAD COPD SZ disorder PLAN: Aerosol nebs Cont trach collar supplement 02 Cont TF Trach suction prn. Levsin 0.125 mg q 8 hrs DW RN at BS. Vernon Marx MD Feb 04, 2017 19:43
[2017-02-05] VITALS (9 sets, daily range): BP systolic 112–145; BP diastolic 69–95; PULSE 76–87; RESP 18–20; TEMP 95.8–98; O2SAT 94–100
[2017-02-05] MEDS: FREE WATER G-TUBE SCH ×3 (05:50→16:45)
[2017-02-05] MEDS: HYOSCYAMINE 0.125 MG TAB G-TUBE SCH ×3 (05:50→22:24)
[2017-02-05 07:49] LABS: INTERNATIONAL NORMALIZED RATIO 2.1 RATIO; PROTHROMBIN TIME - PATIENT 23.4 SEC (9.8-11.6)
[2017-02-05 07:52] LABS: BICARBONATE 29.6 MEQ/L (21.0-32.0); POTASSIUM 3.7 MEQ/L (3.5-5.1)
[2017-02-05] MEDS: CHLORHEXIDINE 0.12% (ORAL KIT) 15 ML CUP MT SCH ×2 (08:00→20:00)
[2017-02-05] MEDS: SENNOSIDES SYRUP 8.8 MG/5 ML CUP G-TUBE SCH ×2 (08:09→21:00)
[2017-02-05] MEDS: levETIRAcetam 500 MG/5 ML UDC NG SCH ×2 (08:10→22:24)
[2017-02-05] MEDS: carBAMazepine SUSP 200 MG/10 ML UDC PEG SCH ×2 (08:10→22:25)
[2017-02-05] MEDS: LACTULOSE SYRUP 20 GM/30 ML CUP G-TUBE SCH ×3 (08:11→16:40)
[2017-02-05] MEDS: FERROUS SULFATE 300 MG /5ML UDC PEG SCH ×2 (08:11→22:26)
[2017-02-05] MEDS: JUVEN POWDER 1 PACK G-TUBE SCH ×2 (08:11→21:00)
[2017-02-05] MEDS: FOLIC ACID 1 MG TAB OG-TUBE SCH (08:13)
[2017-02-05] MEDS: ASPIRIN 81 MG CHEW TAB NG SCH (08:13)
[2017-02-05] MEDS: BROMOCRIPTINE MESYLATE 2.5 MG TAB OG-TUBE SCH ×2 (08:13→22:26)
[2017-02-05] MEDS: FUROSEMIDE 20 MG TAB PO SCH (08:14)
[2017-02-05] MEDS: ASCORBIC ACID 500 MG TAB PEG SCH ×2 (08:15→22:25)
[2017-02-05] MEDS: ATORVASTATIN 40 MG TAB G-TUBE SCH (08:15)
[2017-02-05] MEDS: SODIUM CHLORIDE 0.9% FLUSH 10 ML FLUSH IV FLUSH SCH ×2 (08:15→21:00)
[2017-02-05] MEDS: FAMOTIDINE 20 MG TAB NG SCH ×2 (08:15→21:00)
[2017-02-05] MEDS: METOPROLOL TARTRATE 25 MG TAB G-TUBE SCH ×2 (08:15→22:24)
[2017-02-05] MEDS: COLLAGENASE OINT 30 GM TUBE TOPICAL SCH (08:16)
--- NOTE | 2017-02-05 15:52 | HHI.PR ---
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 Has episodes of Cheyyne Suazo breathing no new complaint Objective Vital Signs Vital Signs Date Time Temp Pulse Resp B/P Pulse Ox O2 Delivery O2 Flow Rate FiO2 02/05/17 12:52 95.8 76 20 112/73 94 02/05/17 09:18 100 T-piece 28 02/05/17 08:11 94 Trach Collar 6.00 40 02/05/17 08:11 95.9 84 20 142/86 99 02/05/17 05:30 97.8 84 18 134/71 96 02/04/17 20:00 97.0 77 20 157/89 100 02/04/17 19:15 86 02/04/17 19:15 100 Trach Collar 6.00 40 02/04/17 18:15 100 T-piece 6.00 40 02/04/17 16:15 95.6 75 22 129/86 100 I/O 02/04/17 02/04/17 02/04/17 02/05/17 02/05/17 02/05/17 07:00 15:00 23:00 07:00 15:00 23:00 Intake Total 620 ml Output Total 400 ml 800 ml Balance 620 ml -400 ml -800 ml Tube Feeding 420 ml Other 200 ml Output Urine Total 400 ml 800 ml Result Diagram: 02/01/17 1312 02/05/17 0724 Objective Remarks GENERAL: MBMN WF, on Trach collar SKIN: Warm and dry. HEAD: Normocephalic. EYES: No scleral icterus. No injection or drainage. NECK: Supple, trachea midline. No JVD or lymphadenopathy. has trach CARDIOVASCULAR: Regular rate and rhythm without murmurs, gallops, or rubs. RESPIRATORY: Breath sounds equal bilaterally. No accessory muscle use. GASTROINTESTINAL: Abdomen soft, non-tender, nondistended. has PEG MUSCULOSKELETAL: No cyanosis, or edema. BACK: Nontender without obvious deformity. No CVA tenderness. A/P Assessment and Plan RF, S/P Trach CVA Arango arango disease CAD COPD SZ disorder PLAN: Aerosol nebs Cont trach collar supplement 02 Cont TF Trach suction prn. Levsin 0.125 mg q 8 hrs Vernon Marx MD Feb 05, 2017 15:52
[2017-02-05] MEDS: LISINOPRIL 5 MG TAB PO SCH (16:45)
[2017-02-05] MEDS: WARFARIN SOD 5 MG TAB PO SCH (16:45)
--- NOTE | 2017-02-05 18:38 | HHI.PR ---
Subjective Remarks Follow up on patient with bilateral frontal CVA, Moyamoya disease, seizure d/o, COPD, multilobar pneumonia and acute respiratory failure currently on T piece. Patient seen and examined, lying in bed. Eyes were closed for much of the session. However, she briefly opened her eyes towards the end of the visit. She did not track people in the room. Per RN (Jose) pt having frequent stools.She did report pt evidencing Mahad- Suazo breathing. Per RN, no acute changes noted over night or since start of shift. VSS Objective Vitals Vital Signs Date Time Temp Pulse Resp B/P Pulse Ox O2 Delivery O2 Flow Rate FiO2 02/05/17 16:45 86 02/05/17 16:29 96.5 81 20 145/95 100 02/05/17 12:52 95.8 76 20 112/73 94 02/05/17 09:18 100 T-piece 28 02/05/17 08:11 94 Trach Collar 6.00 40 02/05/17 08:11 95.9 84 20 142/86 99 02/05/17 05:30 97.8 84 18 134/71 96 02/04/17 20:00 97.0 77 20 157/89 100 02/04/17 19:15 86 02/04/17 19:15 100 Trach Collar 6.00 40 I/O 02/04/17 02/04/17 02/04/17 02/05/17 02/05/17 02/05/17 07:00 15:00 23:00 07:00 15:00 23:00 Intake Total 620 ml Output Total 400 ml 800 ml Balance 620 ml -400 ml -800 ml Tube Feeding 420 ml Other 200 ml Output Urine Total 400 ml 800 ml # Bowel Movements 1 Result Diagram: 02/01/17 1312 02/05/17 0724 Objective Remarks GENERAL: Pt encountered laying a bed, T-piece in place, eyes closed for much of visit, in NAD. SKIN: Warm and dry. HEAD: Normocephalic. EYES: No scleral icterus. No injection or drainage. NECK: Supple, t-piece in place. CARDIOVASCULAR: Regular rate and rhythm without murmurs, gallops, or rubs. RESPIRATORY: Breath sounds equal bilaterally, without rhonchi or wheezes. On respirator. GASTROINTESTINAL: Abdomen soft, non-tender, nondistended. G-tube in place MUSCULOSKELETAL: No cyanosis, or edema. bilateral SCD's in place as were bilateral off loading boots. Neurological: Pt not responding to commands, no spontaneous movement observed Procedures PEG 11/24/2016 Percutaneous tracheostomy. 11/18/2016 Moderate encephalopathy with suggestion of left temporal region cortical irritability. No active seizures. Clinical correlation. Echocardiogram Severe dilated left ventricle. Wall thickness is normal. The left ventricular systolic function is moderately reduced with an estimated ejection fraction in the range of 35-40%. Doppler parameters are consistent with a restrictive left ventricular filling pattern indicative of decreased left ventricular diastolic compliance and increase left atrial pressure (grade 3 diastolic dysfunction). There is severe tricuspid regurgitation. There is severe pulmonary hypertension present ( > 70 mmHg). Severe mitral valve regurgitation. 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 She was was admitted to [facility] emergency department 11/04/16 with difficulty getting her thoughts together. She was found to have multifocal nonhemorrhagic infarcts in left frontal and parietal regions, right frontal lobe and history of moyamoya disease. She was initially awake and following commands with weakness of RLE and some aphasia. She was transferred to [facility] where he had an cerebral angiogram consistent with moyamoya. There were plans to perform extracranial/intracranial bypass. However she had a seizure and ended up being intubated for status either 11/09 or 11/10.. She was found to have a new right frontal infarct area and she was started on Dilantin and Keppra and it was felt that she would not be a candidate for intervention. She has been intubated 9-10 days and apparently she has been tolerating C Pap trials to some extent but mental status prevents extubation. Treating team was discussing with family trach/PEG. Apparently family requested transfer back to [place] because they live locally here and wanted her closer to home. Patient remained under critical care medicine until 12/24/2016. Acute systolic and diastolic heart failure. -Patient improved after receiving Lasix. Start Lasix and MACKENZIE inhibitor continue Lopressor. Monitor electrolytes and renal function Hypokalemia. -Replaced with by mouth. Bilateral large frontal CVA Moyamoya Disease Seizure Disorder -Neuro following -Continue Keppra -Continue Tegretol -Follow for seizure activity -Daily Aspirin -Bromocriptine -Check Tegretol level, CBC/CMP, and ammonia level -Tegretol level WNL. Ammonia level elevated-reinstituted pts. order of lactulose 15 ml q 12 hrs -lactulose increased to 30 ml BId on 01/29/17, ammonia level noted to be 52 on 01/30/17. Chronic Respiratory Failure Hx of COPD -No exacerbations -Continue tracheostomy with oxygen. Multilobar pneumonia -Tobramycin provided as treatment, course ended on 01/20/17. -ID following Dysphagia -Jevity 1.5 through PEG tube. Diarrhea -Hold stool softener -labs for today and in am -current antibiotic is tobramycin 80 mg q 12 hrs NEB. -Pt not dehydrated. C. Diff assay ordered, results pending. -C'Diff assay negative. Sacral/Coccyx wound -Specialty bed ordered -Wound care following -Santyl ointment ordered DVT prophylaxis -SCDs Case discussed with pt's RN (Jose), and Dr. Obrien Discharge Planning Patient will need long-term care facility Trell Torres Jr. Feb 05, 2017 18:38 Trell Torres Jr. Feb 05, 2017 18:38
[2017-02-06] VITALS (9 sets, daily range): BP systolic 117–143; BP diastolic 75–90; PULSE 76–84; RESP 16–22; TEMP 95.5–98; O2SAT 95–100
[2017-02-06] MEDS: CHLORHEXIDINE GLUCONATE 2 % 1 PACK (2 CLOTHS) TOP SCH (01:53)
[2017-02-06] MEDS: FREE WATER G-TUBE SCH ×4 (05:34→17:28)
[2017-02-06] MEDS: HYOSCYAMINE 0.125 MG TAB G-TUBE SCH ×3 (05:34→22:11)
[2017-02-06] MEDS: CHLORHEXIDINE 0.12% (ORAL KIT) 15 ML CUP MT SCH ×2 (08:00→20:00)
[2017-02-06] MEDS: SENNOSIDES SYRUP 8.8 MG/5 ML CUP G-TUBE SCH ×2 (09:00→22:11)
[2017-02-06] MEDS: JUVEN POWDER 1 PACK G-TUBE SCH ×2 (09:00→22:10)
[2017-02-06] MEDS: FAMOTIDINE 20 MG TAB NG SCH ×2 (09:00→22:11)
[2017-02-06] MEDS: SODIUM CHLORIDE 0.9% FLUSH 10 ML FLUSH IV FLUSH SCH ×2 (09:00→22:12)
[2017-02-06] MEDS: LACTULOSE SYRUP 20 GM/30 ML CUP G-TUBE SCH ×3 (09:00→17:28)
[2017-02-06] MEDS: COLLAGENASE OINT 30 GM TUBE TOPICAL SCH (09:00)
[2017-02-06] MEDS: carBAMazepine SUSP 200 MG/10 ML UDC PEG SCH ×2 (09:28→22:12)
[2017-02-06] MEDS: FERROUS SULFATE 300 MG /5ML UDC PEG SCH ×2 (09:29→22:11)
[2017-02-06] MEDS: levETIRAcetam 500 MG/5 ML UDC NG SCH ×2 (09:29→22:12)
[2017-02-06] MEDS: FUROSEMIDE 20 MG TAB PO SCH (09:30)
[2017-02-06] MEDS: ASPIRIN 81 MG CHEW TAB NG SCH (09:30)
[2017-02-06] MEDS: METOPROLOL TARTRATE 25 MG TAB G-TUBE SCH ×2 (09:32→22:11)
[2017-02-06] MEDS: ASCORBIC ACID 500 MG TAB PEG SCH ×2 (09:32→22:10)
[2017-02-06] MEDS: ATORVASTATIN 40 MG TAB G-TUBE SCH (09:33)
[2017-02-06] MEDS: BROMOCRIPTINE MESYLATE 2.5 MG TAB OG-TUBE SCH ×2 (09:33→22:10)
[2017-02-06] MEDS: FOLIC ACID 1 MG TAB OG-TUBE SCH (09:34)
[2017-02-06 09:59] LABS: BICARBONATE 29.1 MEQ/L (21.0-32.0); INTERNATIONAL NORMALIZED RATIO 1.8 RATIO; MAGNESIUM 2.1 MG/DL (1.5-2.5); POTASSIUM 3.9 MEQ/L (3.5-5.1); PROTHROMBIN TIME - PATIENT 20.9 SEC (9.8-11.6)
[2017-02-06] MEDS: ALBUMIN HUMAN 5% 12.5 GM/250 ML BOTTLE IV SCH (14:51)
[2017-02-06] MEDS: FUROSEMIDE 20 MG/2 ML VIAL IV PUSH SCH ×2 (14:51→22:11)
--- NOTE | 2017-02-06 15:59 | HHI.PR ---
Subjective Remarks 66 YOWF with Rf, s/p trach H/O CVA,Aarngo Arango disease On trach collar No fever. Has episodes of Cheyyne Suazo breathing no new complaint DW RN and charge at BS Objective Vital Signs Vital Signs Date Time Temp Pulse Resp B/P Pulse Ox O2 Delivery O2 Flow Rate FiO2 02/06/17 11:25 96.0 76 16 143/90 100 02/06/17 10:25 83 02/06/17 09:32 98 Trach Collar 6.00 28 02/06/17 09:29 98 T-piece 28 02/06/17 09:29 98 T-piece 28 02/06/17 08:11 95.5 84 16 138/75 100 02/06/17 04:00 98.0 84 20 130/81 97 02/06/17 00:00 97.0 83 22 117/84 95 02/05/17 22:25 87 02/05/17 22:25 Trach Collar 6.00 28 02/05/17 20:00 98.0 77 20 117/69 97 02/05/17 19:55 100 T-piece 6.00 28 02/05/17 16:45 86 02/05/17 16:29 96.5 81 20 145/95 100 I/O 02/05/17 02/05/17 02/05/17 02/06/17 02/06/17 02/06/17 07:00 15:00 23:00 07:00 15:00 23:00 Intake Total 1138 ml Output Total 800 ml 900 ml Balance -800 ml 238 ml Tube Feeding 1138 ml Output Urine Total 800 ml 900 ml # Bowel Movements 1 1 1 Result Diagram: 02/06/17 0816 Objective Remarks GENERAL: MBMN WF, on Trach collar SKIN: Warm and dry. HEAD: Normocephalic. EYES: No scleral icterus. No injection or drainage. NECK: Supple, trachea midline. No JVD or lymphadenopathy. has trach CARDIOVASCULAR: Regular rate and rhythm without murmurs, gallops, or rubs. RESPIRATORY: Breath sounds equal bilaterally. No accessory muscle use. GASTROINTESTINAL: Abdomen soft, non-tender, nondistended. has PEG MUSCULOSKELETAL: No cyanosis, or edema. BACK: Nontender without obvious deformity. No CVA tenderness. A/P Assessment and Plan RF, S/P Trach CVA Arango arango disease CAD COPD SZ disorder PLAN: Aerosol nebs Cont trach collar supplement 02 Cont TF Trach suction prn. Levsin 0.125 mg q 8 hrs Vernon Marx MD Feb 06, 2017 15:59
[2017-02-06] MEDS ORDERED: WARFARIN SOD 4 MG TAB PO SCH (16:00)
[2017-02-06] MEDS ORDERED: WARFARIN SOD 10 MG TAB PO SCH (16:00)
--- NOTE | 2017-02-06 16:07 | HHI.PR ---
Subjective Remarks Follow up on patient with bilateral frontal CVA, Moyamoya disease, seizure d/o, COPD, multilobar pneumonia and acute respiratory failure currently on T piece. Patient seen and examined, lying in bed. Eyes were closed for much of the session. However, she briefly opened her eyes towards the end of the visit. She did not track people in the room. Per RN (Jose) no acute changes noted over night or since start of shift. VSS, afebrile. Objective Vitals Vital Signs Date Time Temp Pulse Resp B/P Pulse Ox O2 Delivery O2 Flow Rate FiO2 02/06/17 11:25 96.0 76 16 143/90 100 02/06/17 10:25 83 02/06/17 09:32 98 Trach Collar 6.00 28 02/06/17 09:29 98 T-piece 28 02/06/17 09:29 98 T-piece 28 02/06/17 08:11 95.5 84 16 138/75 100 02/06/17 04:00 98.0 84 20 130/81 97 02/06/17 00:00 97.0 83 22 117/84 95 02/05/17 22:25 87 02/05/17 22:25 Trach Collar 6.00 28 02/05/17 20:00 98.0 77 20 117/69 97 02/05/17 19:55 100 T-piece 6.00 28 02/05/17 16:45 86 02/05/17 16:29 96.5 81 20 145/95 100 I/O 02/05/17 02/05/17 02/05/17 02/06/17 02/06/17 02/06/17 07:00 15:00 23:00 07:00 15:00 23:00 Intake Total 1138 ml Output Total 800 ml 900 ml Balance -800 ml 238 ml Tube Feeding 1138 ml Output Urine Total 800 ml 900 ml # Bowel Movements 1 1 1 Result Diagram: 02/06/17 0816 Objective Remarks GENERAL: Pt encountered laying a bed, T-piece in place, eyes closed for much of visit, in NAD. SKIN: Warm and dry. Pitting edema noted along flanks. HEAD: Normocephalic. EYES: No scleral icterus. No injection or drainage. NECK: Supple, t-piece in place. CARDIOVASCULAR: Regular rate and rhythm without murmurs, gallops, or rubs. RESPIRATORY: Breath sounds equal bilaterally, without rhonchi or wheezes. On respirator. GASTROINTESTINAL: Abdomen soft, non-tender. Distention noted. G-tube in place MUSCULOSKELETAL: No cyanosis, or edema. bilateral SCD's in place as were bilateral off loading boots. Neurological: Pt not responding to commands, no spontaneous movement observed Procedures PEG 11/24/2016 Percutaneous tracheostomy. 11/18/2016 Moderate encephalopathy with suggestion of left temporal region cortical irritability. No active seizures. Clinical correlation. Echocardiogram Severe dilated left ventricle. Wall thickness is normal. The left ventricular systolic function is moderately reduced with an estimated ejection fraction in the range of 35-40%. Doppler parameters are consistent with a restrictive left ventricular filling pattern indicative of decreased left ventricular diastolic compliance and increase left atrial pressure (grade 3 diastolic dysfunction). There is severe tricuspid regurgitation. There is severe pulmonary hypertension present ( > 70 mmHg). Severe mitral valve regurgitation. Medications and IVs Current Medications Medications (Trade) Dose Ordered Sig/Ora Route Start Time Stop Time Status Last Admin (Peridex 0.12% Liq) 15 ml BID@08,20 MT 11/18/16 08:00 02/06/17 08:00 (NS Flush) 2 ml BID IV FLUSH 11/18/16 09:00 02/06/17 09:00 (Morphine Inj) 2 mg Q2H PRN IV 11/18/16 03:30 01/16/17 08:23 (Zofran Inj) 4 mg Q6H PRN IV 11/18/16 03:30 11/26/16 03:20 Miscellaneous Information 1 Q361D XX 11/18/16 03:30 11/18/16 03:30 (Chlorhexidine 2% Cloth) 3 pack Taper DAILY@04 TOP 11/18/16 04:00 11/14/17 03:59 01/17/17 04:00 (Chlorhexidine 2% Cloth) 3 pack UNSCH PRN TOP 11/18/16 03:30 (Aspirin Chew) 324 mg DAILY NG 11/18/16 09:00 02/06/17 09:30 (Parlodel) 2.5 mg Q12HR OG-TUBE 11/18/16 09:00 02/06/17 09:33 (Folate) 1 mg DAILY OG-TUBE 11/18/16 09:00 02/06/17 09:34 (Lopressor Inj) 5 mg Q6H PRN IV PUSH 11/23/16 22:45 01/12/17 03:20 (Dulcolax Supp) 10 mg DAILY PRN RECTAL 12/14/16 15:45 (Pepcid) 20 mg BID NG 12/21/16 21:00 02/06/17 09:00 (Keppra Liq) 1,500 mg Q12HR NG 12/21/16 21:00 02/06/17 09:29 (TEGretol LIQ) 200 mg Q12HR PEG 01/06/17 09:00 02/06/17 09:28 (Corby Powder) 1 pack BID G-TUBE 01/13/17 09:00 02/06/17 09:00 (Ferrous Sulfate Liq) 300 mg BID PEG 01/26/17 21:00 02/06/17 09:29 (Vitamin C) 500 mg BID PEG 01/26/17 21:00 02/06/17 09:32 (Free Water) 100 ml Q6HR G-TUBE 01/29/17 12:00 02/06/17 12:00 (Lopressor) 25 mg Q12HR G-TUBE 02/01/17 09:00 02/06/17 09:32 ([place] 5-325 Mg) 1 tab Q4H PRN G-TUBE 02/01/17 11:30 (Tylenol) 650 mg Q6H PRN G-TUBE 02/01/17 09:30 (Lipitor) 40 mg DAILY G-TUBE 02/01/17 09:00 02/06/17 09:33 (Levsin Liq) 0.125 mg Q4H PRN G-TUBE 02/01/17 11:15 (Levsin) 0.125 mg Q8HR G-TUBE 02/01/17 14:00 02/06/17 14:51 (Lactulose Liq) 45 ml TID G-TUBE 02/01/17 09:00 02/05/17 13:16 (Senna Liq) 8.8 mg BID G-TUBE 02/01/17 09:00 02/05/17 08:09 (D50w (Vial) Inj) 25 ml UNSCH PRN IV PUSH 02/01/17 09:15 Glucagon 1 mg 1 mg UNSCH PRN OTHER 02/01/17 09:15 (Coumadin Consult Pharmacy) 0 ml @ 0 mls/hr UNSCH OTHER 02/01/17 09:15 (Prinivil) 5 mg DAILY@1600 PO 02/03/17 16:00 02/05/17 16:45 (Santyl Oint) 1 applic DAILY TOPICAL 02/04/17 15:00 02/06/17 09:00 (Coumadin) 10 mg DAILY@1600 PO 02/06/17 16:00 (Albumin 5% Inj) 12.5 gm Q12H IV 02/06/17 14:00 02/06/17 14:51 (Lasix Inj) 20 mg BID IV PUSH 02/06/17 14:00 02/06/17 14:51 Urinary Catheter: Yes Assessment to: Continue Brown insert reason: Prolonged Immobilization Date of Insertion: December 29, 2016 A/P Problem List: (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 She was was admitted to [facility] emergency department 11/04/16 with difficulty getting her thoughts together. She was found to have multifocal nonhemorrhagic infarcts in left frontal and parietal regions, right frontal lobe and history of moyamoya disease. She was initially awake and following commands with weakness of RLE and some aphasia. She was transferred to [facility] where he had an cerebral angiogram consistent with moyamoya. There were plans to perform extracranial/intracranial bypass. However she had a seizure and ended up being intubated for status either 4/ or 45.. She was found to have a new right frontal infarct area and she was started on Dilantin and Keppra and it was felt that she would not be a candidate for intervention. She has been intubated 9-10 days and apparently she has been tolerating C Pap trials to some extent but mental status prevents extubation. Treating team was discussing with family trach/PEG. Apparently family requested transfer back to [place] because they live locally here and wanted her closer to home. Patient remained under critical care medicine until 12/24/2016. Acute systolic and diastolic heart failure. -Patient improved after receiving Lasix. Start Lasix and MACKENZIE inhibitor continue Lopressor. Monitor electrolytes and renal function Atrial Fibrillation -Pt has been bridged from Lovenox to Coumadin. Anasarca -Consulted Dr. Obrien who advised Albumin 5% 12.5g q 12 hrs followed by Lasix 20 mg IV with Lasix being held for SBP less than 110. Hypokalemia. -Replaced with by mouth. Bilateral large frontal CVA Moyamoya Disease Seizure Disorder -Neuro following -Continue Keppra -Continue Tegretol -Follow for seizure activity -Daily Aspirin -Bromocriptine -Check Tegretol level, CBC/CMP, and ammonia level -Tegretol level WNL. Ammonia level elevated-reinstituted pts. order of lactulose 15 ml q 12 hrs -lactulose increased to 30 ml BId on 01/29/17, ammonia level noted to be 52 on 01/30/17. Chronic Respiratory Failure Hx of COPD -No exacerbations -Continue tracheostomy with oxygen. Multilobar pneumonia -Tobramycin provided as treatment, course ended on 01/20/17. -ID following Dysphagia -Jevity 1.5 through PEG tube. Diarrhea -Hold stool softener -labs for today and in am -current antibiotic is tobramycin 80 mg q 12 hrs NEB. -Pt not dehydrated. C. Diff assay ordered, results pending. -C'Diff assay negative. Sacral/Coccyx wound -Specialty bed ordered -Wound care following -Santyl ointment ordered DVT prophylaxis -SCDs Case discussed with pt's RN (Jose), and Dr. Obrien Discharge Planning Patient will need long-term care facility Trell Torres Jr. Feb 06, 2017 16:07
[2017-02-06] MEDS: LISINOPRIL 5 MG TAB PO SCH (17:28)
[2017-02-07] VITALS (9 sets, daily range): BP systolic 109–133; BP diastolic 63–73; PULSE 73–87; RESP 20–26; TEMP 95.3–97; O2SAT 95–100
[2017-02-07] MEDS: CHLORHEXIDINE GLUCONATE 2 % 1 PACK (2 CLOTHS) TOP SCH (00:05)
[2017-02-07] MEDS: ALBUMIN HUMAN 5% 12.5 GM/250 ML BOTTLE IV SCH ×2 (01:44→14:33)
[2017-02-07] MEDS: HYOSCYAMINE 0.125 MG TAB G-TUBE SCH ×3 (05:55→20:30)
[2017-02-07] MEDS: FREE WATER G-TUBE SCH ×3 (05:55→12:20)
[2017-02-07] MEDS: CHLORHEXIDINE 0.12% (ORAL KIT) 15 ML CUP MT SCH ×2 (08:05→20:00)
[2017-02-07 08:49] LABS: PROTHROMBIN TIME - PATIENT 23.1 SEC (9.8-11.6)
[2017-02-07 09:18] LABS: BICARBONATE 26.2 MEQ/L (21.0-32.0); POTASSIUM 5.5 MEQ/L (3.5-5.1)
[2017-02-07] MEDS: JUVEN POWDER 1 PACK G-TUBE SCH ×2 (09:31→20:34)
[2017-02-07] MEDS: carBAMazepine SUSP 200 MG/10 ML UDC PEG SCH ×2 (09:32→23:18)
[2017-02-07] MEDS: FERROUS SULFATE 300 MG /5ML UDC PEG SCH ×2 (09:32→20:31)
[2017-02-07] MEDS: levETIRAcetam 500 MG/5 ML UDC NG SCH ×2 (09:32→20:31)
[2017-02-07] MEDS: LACTULOSE SYRUP 20 GM/30 ML CUP G-TUBE SCH ×3 (09:32→17:47)
[2017-02-07] MEDS: METOPROLOL TARTRATE 25 MG TAB G-TUBE SCH ×2 (09:33→20:30)
[2017-02-07] MEDS: ATORVASTATIN 40 MG TAB G-TUBE SCH (09:33)
[2017-02-07] MEDS: FUROSEMIDE 20 MG/2 ML VIAL IV PUSH SCH ×2 (09:33→20:31)
[2017-02-07] MEDS: FOLIC ACID 1 MG TAB OG-TUBE SCH (09:33)
[2017-02-07] MEDS: FAMOTIDINE 20 MG TAB NG SCH ×2 (09:33→20:30)
[2017-02-07] MEDS: ASCORBIC ACID 500 MG TAB PEG SCH ×2 (09:34→20:30)
[2017-02-07] MEDS: ASPIRIN 81 MG CHEW TAB NG SCH (09:34)
[2017-02-07] MEDS: SODIUM CHLORIDE 0.9% FLUSH 10 ML FLUSH IV FLUSH SCH ×2 (09:34→20:32)
[2017-02-07] MEDS: SENNOSIDES SYRUP 8.8 MG/5 ML CUP G-TUBE SCH ×4 (09:34→21:00)
[2017-02-07] MEDS: BROMOCRIPTINE MESYLATE 2.5 MG TAB OG-TUBE SCH ×2 (09:34→20:30)
[2017-02-07] MEDS: COLLAGENASE OINT 30 GM TUBE TOPICAL SCH (09:34)
--- NOTE | 2017-02-07 09:35 | HHI.PR ---
Subjective Remarks Follow up on patient with bilateral frontal CVA, Moyamoya disease, seizure d/o, COPD, multilobar pneumonia and acute respiratory failure. Patient seen and examined today. Patient lying in bed comfortably, occasional Mahad stoke breathing noted. Opens eyes to vocalization, does not track with eyes nor follow any commands. T-collar continued. Spoke to RN at bedside, no acute issues or events overnight. Tolerating TF. Afebrile. Objective Vitals Vital Signs Date Time Temp Pulse Resp B/P Pulse Ox O2 Delivery O2 Flow Rate FiO2 02/07/17 09:21 95.4 87 24 133/73 97 02/07/17 04:00 97.0 83 20 116/69 95 02/07/17 00:00 97.0 73 20 112/65 100 02/06/17 22:11 80 02/06/17 22:11 100 Trach Collar 6.00 28 02/06/17 20:00 97.5 81 22 119/81 100 02/06/17 16:52 95.9 78 16 133/79 100 02/06/17 11:25 96.0 76 16 143/90 100 02/06/17 10:25 83 I/O 02/06/17 02/06/17 02/06/17 02/07/17 02/07/17 02/07/17 07:00 15:00 23:00 07:00 15:00 23:00 Intake Total 1138 ml 863 ml Output Total 900 ml 0 ml 1800 ml Balance 238 ml 863 ml -1800 ml Tube Feeding 1138 ml 863 ml Output Urine Total 900 ml 1800 ml Tube Feeding Residual Discard 0 ml # Bowel Movements 1 1 2 1 Result Diagram: 02/07/17 0736 Imaging Last Impressions Lower Extremity Ultrasound 02/01/17 0000 Signed Impressions: Service Date/Time: Wednesday, February 01, 2017 13:23 - CONCLUSION: Normal examination. Gray Veronica MD Chest X-Ray 02/01/17 0000 Signed Impressions: Service Date/Time: Wednesday, February 01, 2017 08:45 - CONCLUSION: 1. Stable tracheostomy. 2. Mild interstitial prominence may reflect slight positive fluid balance. Christiano Villagran MD Brain MRI 01/06/17 0000 Signed Impressions: Service Date/Time: January 14:19 - CONCLUSION: Continued evolutionary changes of large bilateral frontal lobe infarcts. Smai Mccarthy MD Abdomen X-Ray 11/26/16 0000 Signed Impressions: Service Date/Time: Saturday, November 26, 2016 10:18 - CONCLUSION: Distended stomach otherwise nonspecific abdomen. Jackson Murillo MD Objective Remarks GENERAL: WDWN female, lying in hospital bed. T piece in place. Remains nonverbal. Eyes open on verbal commands, does not track with eyes, does not follow commands. SKIN: Warm and dry. HEAD: Normocephalic. No scleral icterus. No injection or drainage. CARDIOVASCULAR: Regular rate and rhythm. No murmur appreciated. RESPIRATORY: Tracheostomy with t-collar in place. Breath sounds equal bilaterally. No accessory muscle use. GASTROINTESTINAL: Abdomen soft, non-tender, nondistended. PEG in place, site is clean, no erythema, dressing intact. MUSCULOSKELETAL: No cyanosis, or edema. Procedures PEG 11/24/2016 Percutaneous tracheostomy. 11/18/2016 Moderate encephalopathy with suggestion of left temporal region cortical irritability. No active seizures. Clinical correlation. Echocardiogram Severe dilated left ventricle. Wall thickness is normal. The left ventricular systolic function is moderately reduced with an estimated ejection fraction in the range of 35-40%. Doppler parameters are consistent with a restrictive left ventricular filling pattern indicative of decreased left ventricular diastolic compliance and increase left atrial pressure (grade 3 diastolic dysfunction). There is severe tricuspid regurgitation. There is severe pulmonary hypertension present ( > 70 mmHg). Severe mitral valve regurgitation. Urinary Catheter: Yes Date of Insertion: Jan 29, 2017 A/P Problem List: (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 She was was admitted to [facility] emergency department 11/04/16 with difficulty getting her thoughts together. She was found to have multifocal nonhemorrhagic infarcts in left frontal and parietal regions, right frontal lobe and history of moyamoya disease. She was initially awake and following commands with weakness of RLE and some aphasia. She was transferred to [facility] where he had an cerebral angiogram consistent with moyamoya. There were plans to perform extracranial/intracranial bypass. However she had a seizure and ended up being intubated for status either 11/09 or 11/10.. She was found to have a new right frontal infarct area and she was started on Dilantin and Keppra and it was felt that she would not be a candidate for intervention. She has been intubated 9-10 days and apparently she has been tolerating C Pap trials to some extent but mental status prevents extubation. Treating team was discussing with family trach/PEG. Apparently family requested transfer back to [place] because they live locally here and wanted her closer to home. Patient remained under critical care medicine until 12/24/2016. Bilateral large frontal CVA Moyamoya Disease Seizure Disorder -Continue Keppra -Continue Tegretol -Follow for seizure activity - Continue aspirin - Continue Bromocriptine -Tegretol level WNL. Ammonia level elevated, Continue lactulose. Monitor for loose BMs. Systolic and diastolic heart failure, acute - Continue Lasix and MACKENZIE inhibitor. - Monitor electrolytes and renal function Atrial Fibrillation, acute: Controlled. - INR therapeutic, 2.0. Follow daily INR. - Continue Coumadin. Lovenox discontinued. 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 Will hold FWF and recheck in am. Follow. Hyperkalemia: K 5.5 today 02/07. Will recheck in am. Tele unremarkable. Lactulose continued. Lasix continued, without potassium supplementation. Will follow. Anasarca - Continue Albumin 5% 12.5g q 12 hrs followed by Lasix 20 mg IV with Lasix being held for SBP less than 110. Chronic Respiratory Failure Chronic obstructive pulmonary disease Multilobar pneumonia - Pulmonology following, appreciate input. - Continue tracheostomy with supplemental oxygen. - Tobramycin completed, course ended on 01/20/17. Dysphagia Hypoalbuminemia - Jevity 1.5 through PEG tube with Corby supplementation. Sacral/Coccyx wound - Continue specialty bed. -Wound care following, appreciate input. Last note with recommendations to pack wound daily with Santyl to sacrococcygeal wound. On right buttock, right ischium apply single layer Xeroform over open wound beds. Prep periwounds with Cavilon skin prep. Cover Xeroform with bordered gauze dressing. Change dressings EVERY OTHER DAY and PRN for dislodgement or soiling. GI Prophylaxis: Pepcid. DVT prophylaxis: SCDs. Coumadin. PARTHA RN and Dr. Obrien. Discharge Planning Last CM note: 02/04/17 CM s/w Erika from [facility] who stated that pt is too low level for [facility] so they will not be able to accept. Jackie Walsh Feb 07, 2017 09:35
[2017-02-07] MEDS: LISINOPRIL 5 MG TAB PO SCH (15:55)
[2017-02-07] MEDS: WARFARIN SOD 7.5 MG TAB PO SCH (15:55)
--- NOTE | 2017-02-07 20:27 | HHI.PR ---
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 Has episodes of Cheyyne Suazo breathing DW RN and charge at BS Awake, desaturates but spontaneously recovers quickly Objective Vital Signs Vital Signs Date Time Temp Pulse Resp B/P Pulse Ox O2 Delivery O2 Flow Rate FiO2 02/07/17 17:21 95.3 76 24 116/68 98 02/07/17 11:00 96.0 79 26 109/63 100 02/07/17 10:20 99 T-piece 5.00 28 02/07/17 09:21 95.4 87 24 133/73 97 02/07/17 08:20 97 Trach Collar 3.50 28 02/07/17 07:15 81 02/07/17 04:00 97.0 83 20 116/69 95 02/07/17 00:00 97.0 73 20 112/65 100 02/06/17 22:11 80 02/06/17 22:11 100 Trach Collar 6.00 28 I/O 02/06/17 02/06/17 02/06/17 02/07/17 02/07/17 02/07/17 07:00 15:00 23:00 07:00 15:00 23:00 Intake Total 1138 ml 863 ml 840 ml Output Total 900 ml 0 ml 1800 ml 900 ml 250 ml Balance 238 ml 863 ml -1800 ml -60 ml -250 ml Tube Feeding 1138 ml 863 ml 840 ml Output Urine Total 900 ml 1800 ml 900 ml 250 ml Tube Feeding Residual Discard 0 ml # Bowel Movements 1 1 2 1 1 Result Diagram: 02/07/17 0736 Objective Remarks GENERAL: MBMN WF, on Trach collar SKIN: Warm and dry. HEAD: Normocephalic. EYES: No scleral icterus. No injection or drainage. NECK: Supple, trachea midline. No JVD or lymphadenopathy. has trach CARDIOVASCULAR: Regular rate and rhythm without murmurs, gallops, or rubs. RESPIRATORY: Breath sounds equal bilaterally. No accessory muscle use. GASTROINTESTINAL: Abdomen soft, non-tender, nondistended. has PEG MUSCULOSKELETAL: No cyanosis, or edema. BACK: Nontender without obvious deformity. No CVA tenderness. A/P Assessment and Plan RF, S/P Trach CVA Arango arango disease CAD COPD SZ disorder PLAN: Aerosol nebs Cont trach collar supplement 02 Cont TF Trach suction prn. Levsin 0.125 mg q 8 hrs Vernon Marx MD Feb 07, 2017 20:27
[2017-02-08] VITALS (9 sets, daily range): BP systolic 110–150; BP diastolic 66–86; PULSE 72–92; RESP 18–22; TEMP 96.4–98.8; O2SAT 96–100
[2017-02-08] MEDS: ALBUMIN HUMAN 5% 12.5 GM/250 ML BOTTLE IV SCH ×2 (02:36→13:50)
[2017-02-08] MEDS: CHLORHEXIDINE GLUCONATE 2 % 1 PACK (2 CLOTHS) TOP SCH (03:46)
[2017-02-08] MEDS: HYOSCYAMINE 0.125 MG TAB G-TUBE SCH ×3 (06:20→22:50)
[2017-02-08 07:36] LABS: INTERNATIONAL NORMALIZED RATIO 2.2 RATIO; PROTHROMBIN TIME - PATIENT 25.5 SEC (9.8-11.6)
[2017-02-08 08:04] LABS: BICARBONATE 32.8 MEQ/L (21.0-32.0); POTASSIUM 3.8 MEQ/L (3.5-5.1)
[2017-02-08] MEDS: ASPIRIN 81 MG CHEW TAB NG SCH (09:36)
[2017-02-08] MEDS: FUROSEMIDE 20 MG/2 ML VIAL IV PUSH SCH ×2 (09:36→22:48)
[2017-02-08] MEDS: ASCORBIC ACID 500 MG TAB PEG SCH ×2 (09:37→22:50)
[2017-02-08] MEDS: METOPROLOL TARTRATE 25 MG TAB G-TUBE SCH ×2 (09:37→22:50)
[2017-02-08] MEDS: carBAMazepine SUSP 200 MG/10 ML UDC PEG SCH ×2 (09:37→22:50)
[2017-02-08] MEDS: BROMOCRIPTINE MESYLATE 2.5 MG TAB OG-TUBE SCH ×2 (09:37→22:50)
[2017-02-08] MEDS: ATORVASTATIN 40 MG TAB G-TUBE SCH (09:37)
[2017-02-08] MEDS: FAMOTIDINE 20 MG TAB NG SCH ×2 (09:37→22:51)
[2017-02-08] MEDS: FOLIC ACID 1 MG TAB OG-TUBE SCH (09:37)
[2017-02-08] MEDS: SENNOSIDES SYRUP 8.8 MG/5 ML CUP G-TUBE SCH ×2 (09:38→21:00)
[2017-02-08] MEDS: FERROUS SULFATE 300 MG /5ML UDC PEG SCH ×2 (09:38→22:48)
[2017-02-08] MEDS: levETIRAcetam 500 MG/5 ML UDC NG SCH ×2 (09:38→22:49)
[2017-02-08] MEDS: LACTULOSE SYRUP 20 GM/30 ML CUP G-TUBE SCH ×3 (09:38→17:00)
[2017-02-08] MEDS: SODIUM CHLORIDE 0.9% FLUSH 10 ML FLUSH IV FLUSH SCH ×2 (09:38→21:00)
[2017-02-08] MEDS: JUVEN POWDER 1 PACK G-TUBE SCH ×2 (09:39→21:00)
[2017-02-08] MEDS: CHLORHEXIDINE 0.12% (ORAL KIT) 15 ML CUP MT SCH ×2 (09:39→20:00)
[2017-02-08] MEDS: COLLAGENASE OINT 30 GM TUBE TOPICAL SCH (09:39)
--- NOTE | 2017-02-08 10:39 | HHI.PR ---
Subjective Remarks Follow up on patient with bilateral frontal CVA, Moyamoya disease, seizure d/o, COPD, multilobar pneumonia and acute respiratory failure. Patient seen and examined today. Spoke to RN at bedside, no acute events overnight. Patient lying in bed comfortably, in NAD. Trach collar in place. Tolerating TF. No recent fever, vomiting. RN does state BM have been liquid, patient on lactulose for elevated ammonia. Afebrile. Objective Vitals Vital Signs Date Time Temp Pulse Resp B/P Pulse Ox O2 Delivery O2 Flow Rate FiO2 02/08/17 08:30 96 T-piece 28 02/08/17 08:00 98.0 84 21 113/75 100 02/08/17 05:44 96.4 84 20 150/86 100 02/08/17 01:30 96.6 73 21 110/70 97 02/07/17 21:00 Trach Collar 5.00 28 02/07/17 21:00 85 02/07/17 20:49 95.6 80 21 123/70 100 02/07/17 17:21 95.3 76 24 116/68 98 02/07/17 11:00 96.0 79 26 109/63 100 I/O 02/07/17 02/07/17 02/07/17 02/08/17 02/08/17 02/08/17 07:00 15:00 23:00 07:00 15:00 23:00 Intake Total 840 ml 1070 ml Output Total 1800 ml 900 ml 250 ml 600 ml Balance -1800 ml -60 ml -250 ml 470 ml IV Total 250 ml Tube Feeding 840 ml 720 ml Tube Irrigant 100 ml Output Urine Total 1800 ml 900 ml 250 ml 600 ml # Bowel Movements 1 1 1 Result Diagram: 02/08/17 0719 Imaging Last Impressions Lower Extremity Ultrasound 02/01/17 0000 Signed Impressions: Service Date/Time: Wednesday, February 01, 2017 13:23 - CONCLUSION: Normal examination. Gray Veronica MD Chest X-Ray 02/01/17 0000 Signed Impressions: Service Date/Time: Wednesday, February 01, 2017 08:45 - CONCLUSION: 1. Stable tracheostomy. 2. Mild interstitial prominence may reflect slight positive fluid balance. Christiano Villagran MD Brain MRI 01/06/17 0000 Signed Impressions: Service Date/Time: January 14:19 - CONCLUSION: Continued evolutionary changes of large bilateral frontal lobe infarcts. Sami Mccarthy MD Abdomen X-Ray 11/26/16 0000 Signed Impressions: Service Date/Time: Saturday, November 26, 2016 10:18 - CONCLUSION: Distended stomach otherwise nonspecific abdomen. Jackson Murillo MD Objective Remarks GENERAL: WDWN female, lying in hospital bed. T piece in place. Remains nonverbal. Eyes open on verbal commands, does not track with eyes, does not follow commands. SKIN: Warm and dry. HEAD: Normocephalic. No scleral icterus. No injection or drainage. CARDIOVASCULAR: Regular rate and rhythm. No murmur appreciated. RESPIRATORY: Tracheostomy with t-collar in place. Breath sounds equal bilaterally. No accessory muscle use. GASTROINTESTINAL: Abdomen soft, non-tender, nondistended. PEG in place, site is clean, no erythema, dressing intact. MUSCULOSKELETAL: No cyanosis, or edema. Procedures PEG 11/24/2016 Percutaneous tracheostomy. 11/18/2016 Moderate encephalopathy with suggestion of left temporal region cortical irritability. No active seizures. Clinical correlation. Echocardiogram Severe dilated left ventricle. Wall thickness is normal. The left ventricular systolic function is moderately reduced with an estimated ejection fraction in the range of 35-40%. Doppler parameters are consistent with a restrictive left ventricular filling pattern indicative of decreased left ventricular diastolic compliance and increase left atrial pressure (grade 3 diastolic dysfunction). There is severe tricuspid regurgitation. There is severe pulmonary hypertension present ( > 70 mmHg). Severe mitral valve regurgitation. Urinary Catheter: Yes Assessment to: Continue Date of Insertion: Jan 29, 2017 A/P Problem List: (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 She was was admitted to [facility] emergency department 11/04/16 with difficulty getting her thoughts together. She was found to have multifocal nonhemorrhagic infarcts in left frontal and parietal regions, right frontal lobe and history of moyamoya disease. She was initially awake and following commands with weakness of RLE and some aphasia. She was transferred to [facility] where he had an cerebral angiogram consistent with moyamoya. There were plans to perform extracranial/intracranial bypass. However she had a seizure and ended up being intubated for status either 11/09 or 11/10.. She was found to have a new right frontal infarct area and she was started on Dilantin and Keppra and it was felt that she would not be a candidate for intervention. She has been intubated 9-10 days and apparently she has been tolerating C Pap trials to some extent but mental status prevents extubation. Treating team was discussing with family trach/PEG. Apparently family requested transfer back to [place] because they live locally here and wanted her closer to home. Patient remained under critical care medicine until 12/24/2016. Bilateral large frontal CVA Moyamoya Disease Seizure Disorder - Continue Keppra 1,500 mg q12h - Continue Tegretol 200 mg q12h - Follow for seizure activity - Continue aspirin - Continue Bromocriptine - Tegretol level WNL. Ammonia level elevated, Continue lactulose. Monitor for loose BMs. Systolic and diastolic heart failure, acute - Continue Lasix and MACKENZIE inhibitor. - Monitor electrolytes and renal function Atrial Fibrillation, acute: Controlled. - INR therapeutic, 2.2. Follow daily INR. - Continue Coumadin. Oral thrush: Start patient on nystatin swish and swallow QID. Requested RN to swab tongue since patient cannot swallow. Hyponatremia, resolved: BMP reviewed today, Na 129 --> 134. Monitor. Continue hold of FWF for now. Hyperkalemia, resolved: BMP reviewed today, K 5.5 --> 3.8. Anasarca: Continue Albumin 5% 12.5g q 12 hrs followed by Lasix 20 mg IV with Lasix being held for SBP less than 110. Chronic Respiratory Failure Chronic obstructive pulmonary disease Multilobar pneumonia - Pulmonology following, appreciate input. - Continue tracheostomy with supplemental oxygen. - Tobramycin completed, course ended on 01/20/17. Dysphagia Hypoalbuminemia - Jevity 1.5 through PEG tube with Corby supplementation. Sacral/Coccyx wound - Continue specialty bed. - Wound care following, appreciate input. Last note with recommendations to pack wound daily with Santyl to sacrococcygeal wound. On right buttock, right ischium apply single layer Xeroform over open wound beds. Prep periwounds with Cavilon skin prep. Cover Xeroform with bordered gauze dressing. Change dressings EVERY OTHER DAY and PRN for dislodgement or soiling. GI Prophylaxis: Pepcid. DVT prophylaxis: SCDs. Coumadin. PARTHA RN and Dr. Obrien. Discharge Planning Last CM note: 02/04/17 CM s/w Erika from [facility] who stated that pt is too low level for [facility] so they will not be able to accept. Jackie Walsh Feb 08, 2017 10:39
--- NOTE | 2017-02-08 15:54 | HHI.PR ---
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 Has episodes of Cheyyne Suazo breathing Awake, desaturates but spontaneously recovers quickly Objective Vital Signs Vital Signs Date Time Temp Pulse Resp B/P Pulse Ox O2 Delivery O2 Flow Rate FiO2 02/08/17 13:06 84 02/08/17 12:00 98.7 72 22 125/78 100 02/08/17 09:50 Blow By 28 T-Piece Humidified 02/08/17 08:30 96 T-piece 28 02/08/17 08:00 98.0 84 21 113/75 100 02/08/17 05:44 96.4 84 20 150/86 100 02/08/17 01:30 96.6 73 21 110/70 97 02/07/17 21:00 Trach Collar 5.00 28 02/07/17 21:00 85 02/07/17 20:49 95.6 80 21 123/70 100 02/07/17 17:21 95.3 76 24 116/68 98 I/O 02/07/17 02/07/17 02/07/17 02/08/17 02/08/17 02/08/17 07:00 15:00 23:00 07:00 15:00 23:00 Intake Total 840 ml 1070 ml 680 ml Output Total 1800 ml 900 ml 250 ml 600 ml 1050 ml Balance -1800 ml -60 ml -250 ml 470 ml -370 ml IV Total 250 ml Tube Feeding 840 ml 720 ml 480 ml Tube Irrigant 100 ml 200 ml Output Urine Total 1800 ml 900 ml 250 ml 600 ml 1050 ml # Bowel Movements 1 1 1 Result Diagram: 02/08/17 0719 Objective Remarks GENERAL: MBMN WF, on Trach collar SKIN: Warm and dry. HEAD: Normocephalic. EYES: No scleral icterus. No injection or drainage. NECK: Supple, trachea midline. No JVD or lymphadenopathy. has trach CARDIOVASCULAR: Regular rate and rhythm without murmurs, gallops, or rubs. RESPIRATORY: Breath sounds equal bilaterally. No accessory muscle use. GASTROINTESTINAL: Abdomen soft, non-tender, nondistended. has PEG MUSCULOSKELETAL: No cyanosis, or edema. BACK: Nontender without obvious deformity. No CVA tenderness. A/P Assessment and Plan RF, S/P Trach CVA Arango arango disease CAD COPD SZ disorder PLAN: Aerosol nebs Cont trach collar supplement 02 Trach suction prn. Levsin 0.125 mg q 8 hrs tolerates TF Vernon Marx MD Feb 08, 2017 15:54
[2017-02-08] MEDS: WARFARIN SOD 7.5 MG TAB PO SCH (16:53)
[2017-02-08] MEDS: LISINOPRIL 5 MG TAB PO SCH (16:53)
[2017-02-08] MEDS: NYSTATIN SUSP 500,000 U/5 ML CUP SWISH-SWAL SCH ×2 (17:00→22:48)
[2017-02-09] VITALS (11 sets, daily range): BP systolic 125–136; BP diastolic 65–86; PULSE 80–90; RESP 18–22; TEMP 97.6–98.8; O2SAT 98–100
[2017-02-09] MEDS: ALBUMIN HUMAN 5% 12.5 GM/250 ML BOTTLE IV SCH ×2 (01:43→14:18)
[2017-02-09] MEDS: CHLORHEXIDINE GLUCONATE 2 % 1 PACK (2 CLOTHS) TOP SCH ×2 (02:42→22:24)
[2017-02-09] MEDS: HYOSCYAMINE 0.125 MG TAB G-TUBE SCH ×3 (06:19→22:22)
[2017-02-09] MEDS: CHLORHEXIDINE 0.12% (ORAL KIT) 15 ML CUP MT SCH ×2 (08:00→20:00)
--- NOTE | 2017-02-09 08:32 | HHI.PR ---
Subjective Remarks no sz reported to me recently Objective Vital Signs Date Time Temp Pulse Resp B/P Pulse Ox O2 Delivery O2 Flow Rate FiO2 02/09/17 04:00 97.9 90 19 131/86 100 02/09/17 01:54 99 T-Piece 28 Humidified 02/09/17 00:15 98.8 84 19 125/65 100 02/08/17 21:40 98.8 92 18 134/75 100 02/08/17 20:00 81 02/08/17 16:00 97.7 72 21 116/66 97 02/08/17 13:06 84 02/08/17 12:00 98.7 72 22 125/78 100 02/08/17 09:50 Blow By 28 T-Piece Humidified I/O 02/08/17 02/08/17 02/08/17 02/09/17 02/09/17 02/09/17 07:00 15:00 23:00 07:00 15:00 23:00 Intake Total 1070 ml 680 ml 0 ml 522 ml Output Total 600 ml 1050 ml 400 ml 500 ml Balance 470 ml -370 ml -400 ml 22 ml Intake Oral 0 ml 0 ml IV Total 250 ml Tube Feeding 720 ml 480 ml 422 ml Tube Irrigant 100 ml 200 ml Other 100 ml Output Urine Total 600 ml 1050 ml 400 ml 500 ml # Bowel Movements 1 2 2 Result Diagram: 02/08/17 0719 Procedures 11/24/2016 Percutaneous tracheostomy. Objective Remarks not following commands pupils = does moves eyes around and tracks me and rxt to threat nl no command following no change stable again Assessment and Plan Assessment and Plan imp huge r frontal cva and inc size left frontal cva may eventually awaken and interact more mri no change resolving cva eeg some left sharps stay on keppra no anticoag now due to size of cva trached and pegged I THINK SHE LOOKS BETTER AND EVENTUALLY MAY INTERACT MORE AND SPEAK WE WILL HAVE TO WAIT AND SEE SOME DAMAGE TO LANGUAGE AREA IN FRONT I THINK BY MRI no change here 01/06/17 focal sz add tegretol check eeg and mri - 01/07/17 no more sz mri not new eeg neg on cbz 4.6 and keppra follow level i will be out of town call neuro isf any new sz 01/24/17 no more sz reported on cbz level 7 and keppra eeg neg sz mri no major change stable neuro check cbz labs ast alt cbc bmp in one month 02/09/17 stable neuro no improvement na down recently if no other reason could be tegretol let me know if u think that is cause call me Terrence Flores MD Feb 09, 2017 08:32
[2017-02-09] MEDS: LACTULOSE SYRUP 20 GM/30 ML CUP G-TUBE SCH ×3 (09:00→18:00)
[2017-02-09] MEDS: SENNOSIDES SYRUP 8.8 MG/5 ML CUP G-TUBE SCH ×2 (09:00→21:00)
[2017-02-09] MEDS: JUVEN POWDER 1 PACK G-TUBE SCH ×2 (09:00→21:00)
[2017-02-09] MEDS: NYSTATIN SUSP 500,000 U/5 ML CUP SWISH-SWAL SCH ×4 (09:18→22:22)
[2017-02-09] MEDS: carBAMazepine SUSP 200 MG/10 ML UDC PEG SCH ×2 (09:18→22:22)
[2017-02-09] MEDS: BROMOCRIPTINE MESYLATE 2.5 MG TAB OG-TUBE SCH ×2 (09:19→22:22)
[2017-02-09] MEDS: FAMOTIDINE 20 MG TAB NG SCH ×2 (09:19→22:23)
[2017-02-09] MEDS: ASPIRIN 81 MG CHEW TAB NG SCH (09:19)
[2017-02-09] MEDS: FERROUS SULFATE 300 MG /5ML UDC PEG SCH ×2 (09:19→22:23)
[2017-02-09] MEDS: ATORVASTATIN 40 MG TAB G-TUBE SCH (09:19)
[2017-02-09] MEDS: ASCORBIC ACID 500 MG TAB PEG SCH ×2 (09:19→22:23)
[2017-02-09] MEDS: METOPROLOL TARTRATE 25 MG TAB G-TUBE SCH ×2 (09:19→22:22)
[2017-02-09] MEDS: FOLIC ACID 1 MG TAB OG-TUBE SCH (09:19)
[2017-02-09] MEDS: levETIRAcetam 500 MG/5 ML UDC NG SCH ×2 (09:19→22:22)
[2017-02-09] MEDS: SODIUM CHLORIDE 0.9% FLUSH 10 ML FLUSH IV FLUSH SCH ×2 (09:20→22:23)
[2017-02-09] MEDS: COLLAGENASE OINT 30 GM TUBE TOPICAL SCH (09:20)
[2017-02-09] MEDS: FUROSEMIDE 20 MG/2 ML VIAL IV PUSH SCH ×2 (09:21→22:23)
--- NOTE | 2017-02-09 09:32 | HHI.PR ---
Subjective Remarks Follow up on patient with bilateral frontal CVA, Moyamoya disease, seizure d/o, COPD, multilobar pneumonia and acute respiratory failure. Patient seen and examined today. Lying in bed, eyes open, not tracking. Spoke to bedside RN, no acute events overnight. T-collar in place, supplemental O2 continued, O2 sats 98 %. Afebrile. Per RN stool has been liquid diarrhea. Tolerating TF. Objective Vitals Vital Signs Date Time Temp Pulse Resp B/P Pulse Ox O2 Delivery O2 Flow Rate FiO2 02/09/17 08:00 97.9 86 22 130/79 100 02/09/17 04:00 97.9 90 19 131/86 100 02/09/17 01:54 99 T-Piece 28 Humidified 02/09/17 00:15 98.8 84 19 125/65 100 02/08/17 21:40 98.8 92 18 134/75 100 02/08/17 20:00 81 02/08/17 16:00 97.7 72 21 116/66 97 02/08/17 13:06 84 02/08/17 12:00 98.7 72 22 125/78 100 02/08/17 09:50 Blow By 28 T-Piece Humidified I/O 02/08/17 02/08/17 02/08/17 02/09/17 02/09/17 02/09/17 07:00 15:00 23:00 07:00 15:00 23:00 Intake Total 1070 ml 680 ml 0 ml 522 ml Output Total 600 ml 1050 ml 400 ml 500 ml Balance 470 ml -370 ml -400 ml 22 ml Intake Oral 0 ml 0 ml IV Total 250 ml Tube Feeding 720 ml 480 ml 422 ml Tube Irrigant 100 ml 200 ml Other 100 ml Output Urine Total 600 ml 1050 ml 400 ml 500 ml # Bowel Movements 1 2 2 Result Diagram: 02/08/17 0719 Imaging Last Impressions Lower Extremity Ultrasound 02/01/17 0000 Signed Impressions: Service Date/Time: Wednesday, February 01, 2017 13:23 - CONCLUSION: Normal examination. Gray Veronica MD Chest X-Ray 02/01/17 0000 Signed Impressions: Service Date/Time: Wednesday, February 01, 2017 08:45 - CONCLUSION: 1. Stable tracheostomy. 2. Mild interstitial prominence may reflect slight positive fluid balance. Christiano Villagran MD Brain MRI 01/06/17 0000 Signed Impressions: Service Date/Time: January 14:19 - CONCLUSION: Continued evolutionary changes of large bilateral frontal lobe infarcts. Sami Mccarthy MD Abdomen X-Ray 11/26/16 0000 Signed Impressions: Service Date/Time: Saturday, November 26, 2016 10:18 - CONCLUSION: Distended stomach otherwise nonspecific abdomen. K. David Murillo MD Objective Remarks GENERAL: WDWN female, lying in hospital bed. T piece in place. Remains nonverbal. Eyes open on verbal commands, does not track with eyes, does not follow commands. SKIN: Warm and dry. HEAD: Normocephalic. No scleral icterus. No injection or drainage. CARDIOVASCULAR: Regular rate and rhythm. No murmur appreciated. RESPIRATORY: Tracheostomy with t-collar in place. Breath sounds equal bilaterally. No accessory muscle use. GASTROINTESTINAL: Abdomen soft, non-tender, nondistended. PEG in place, site is clean, no erythema, dressing intact. MUSCULOSKELETAL: No cyanosis, or edema. Procedures PEG 11/24/2016 Percutaneous tracheostomy. 11/18/2016 Moderate encephalopathy with suggestion of left temporal region cortical irritability. No active seizures. Clinical correlation. Echocardiogram Severe dilated left ventricle. Wall thickness is normal. The left ventricular systolic function is moderately reduced with an estimated ejection fraction in the range of 35-40%. Doppler parameters are consistent with a restrictive left ventricular filling pattern indicative of decreased left ventricular diastolic compliance and increase left atrial pressure (grade 3 diastolic dysfunction). There is severe tricuspid regurgitation. There is severe pulmonary hypertension present ( > 70 mmHg). Severe mitral valve regurgitation. Urinary Catheter: Yes Assessment to: Continue Date of Insertion: Jan 29, 2017 A/P Problem List: (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 She was was admitted to [facility] emergency department 11/04/16 with difficulty getting her thoughts together. She was found to have multifocal nonhemorrhagic infarcts in left frontal and parietal regions, right frontal lobe and history of moyamoya disease. She was initially awake and following commands with weakness of RLE and some aphasia. She was transferred to [facility] where he had an cerebral angiogram consistent with moyamoya. There were plans to perform extracranial/intracranial bypass. However she had a seizure and ended up being intubated for status either 4 or 4.. She was found to have a new right frontal infarct area and she was started on Dilantin and Keppra and it was felt that she would not be a candidate for intervention. She has been intubated 9-10 days and apparently she has been tolerating C Pap trials to some extent but mental status prevents extubation. Treating team was discussing with family trach/PEG. Apparently family requested transfer back to [place] because they live locally here and wanted her closer to home. Patient remained under critical care medicine until 12/24/2016. Bilateral large frontal CVA Moyamoya Disease Seizure Disorder - Continue Keppra 1,500 mg q12h - Continue Tegretol 200 mg q12h - Follow for seizure activity - Continue aspirin - Continue Bromocriptine - Tegretol level WNL. Ammonia level elevated, Continue lactulose. Monitor for loose BMs. Systolic and diastolic heart failure, acute - Continue Lasix and MACKENZIE inhibitor. - Monitor electrolytes and renal function Atrial Fibrillation, acute: Controlled. - INR therapeutic, 2.2. Follow daily INR. - Continue Coumadin. Oral thrush: Start patient on nystatin swish and swallow QID. Requested RN to swab tongue since patient cannot swallow. Hyponatremia, resolved: Na 129 --> 134. Monitor. Continue hold of FWF for now. Hyperkalemia, resolved: K 5.5 --> 3.8. Anasarca: Continue Albumin 5% 12.5g q 12 hrs followed by Lasix 20 mg IV with Lasix being held for SBP less than 110. Chronic Respiratory Failure Chronic obstructive pulmonary disease Multilobar pneumonia - Pulmonology following, appreciate input. - Continue tracheostomy with supplemental oxygen. - Tobramycin completed, course ended on 01/20/17. Dysphagia Hypoalbuminemia - Jevity 1.5 through PEG tube with Corby supplementation. Sacral/Coccyx wound - Continue specialty bed. - Wound care following, appreciate input. Last note with recommendations to pack wound daily with Santyl to sacrococcygeal wound. On right buttock, right ischium apply single layer Xeroform over open wound beds. Prep periwounds with Cavilon skin prep. Cover Xeroform with bordered gauze dressing. Change dressings EVERY OTHER DAY and PRN for dislodgement or soiling. GI Prophylaxis: Pepcid. DVT prophylaxis: SCDs. Coumadin. Discharge Planning Last CM note: 02/04/17 CM s/w Erika from [facility] who stated that pt is too low level for [facility] so they will not be able to accept. Jackie Walsh Feb 09, 2017 09:32
[2017-02-09 11:24] LABS: INTERNATIONAL NORMALIZED RATIO 2.2 RATIO; PROTHROMBIN TIME - PATIENT 25.4 SEC (9.8-11.6)
[2017-02-09] MEDS: LISINOPRIL 5 MG TAB PO SCH (15:05)
[2017-02-09] MEDS: WARFARIN SOD 7.5 MG TAB PO SCH (15:05)
--- NOTE | 2017-02-09 18:42 | HHI.PR ---
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 Has episodes of Cheyyne Suazo breathing Awake, desaturates but spontaneously recovers quicklno New complaints reported Objective Vital Signs Vital Signs Date Time Temp Pulse Resp B/P Pulse Ox O2 Delivery O2 Flow Rate FiO2 02/09/17 18:23 98 T-piece 6.00 28 02/09/17 18:22 98 T-piece 6.00 02/09/17 16:00 97.6 86 19 128/74 98 02/09/17 15:22 99 T-Piece 5.00 28 Humidified 02/09/17 12:00 97.7 80 19 136/69 02/09/17 10:29 83 02/09/17 10:06 100 T-piece 5.00 02/09/17 10:06 100 T-piece 5.00 02/09/17 09:44 99 T-Piece 5.00 28 02/09/17 08:00 97.9 86 22 130/79 100 02/09/17 04:00 97.9 90 19 131/86 100 02/09/17 01:54 99 T-Piece 28 Humidified 02/09/17 00:15 98.8 84 19 125/65 100 02/08/17 21:40 98.8 92 18 134/75 100 02/08/17 20:00 81 I/O 02/08/17 02/08/17 02/08/17 02/09/17 02/09/17 02/09/17 07:00 15:00 23:00 07:00 15:00 23:00 Intake Total 1070 ml 680 ml 0 ml 522 ml 200 ml 993 ml Output Total 600 ml 1050 ml 400 ml 500 ml 500 ml Balance 470 ml -370 ml -400 ml 22 ml -300 ml 993 ml Intake Oral 0 ml 0 ml IV Total 250 ml 250 ml Tube Feeding 720 ml 480 ml 422 ml 683 ml Tube Irrigant 100 ml 200 ml Other 100 ml 200 ml 60 ml Output Urine Total 600 ml 1050 ml 400 ml 500 ml 500 ml # Bowel Movements 1 2 2 0 Result Diagram: 02/08/17 0719 Objective Remarks GENERAL: MBMN WF, on Trach collar SKIN: Warm and dry. HEAD: Normocephalic. EYES: No scleral icterus. No injection or drainage. NECK: Supple, trachea midline. No JVD or lymphadenopathy. has trach CARDIOVASCULAR: Regular rate and rhythm without murmurs, gallops, or rubs. RESPIRATORY: Breath sounds equal bilaterally. No accessory muscle use. GASTROINTESTINAL: Abdomen soft, non-tender, nondistended. has PEG MUSCULOSKELETAL: No cyanosis, or edema. BACK: Nontender without obvious deformity. No CVA tenderness. A/P Assessment and Plan RF, S/P Trach CVA Arango arango disease CAD COPD SZ disorder PLAN: Aerosol nebs Cont trach collar supplement 02 Trach suction prn. Levsin 0.125 mg q 8 hrs tolerates TF PARTHA RN at [facility] Vernon Marx MD Feb 09, 2017 18:42
[2017-02-10] VITALS (8 sets, daily range): BP systolic 127–156; BP diastolic 66–90; PULSE 82–99; RESP 20–22; TEMP 96.2–98.8; O2SAT 96–100
[2017-02-10] MEDS: ALBUMIN HUMAN 5% 12.5 GM/250 ML BOTTLE IV SCH ×2 (02:44→15:44)
[2017-02-10] MEDS: HYOSCYAMINE 0.125 MG TAB G-TUBE SCH ×3 (04:58→21:28)
[2017-02-10] MEDS: CHLORHEXIDINE 0.12% (ORAL KIT) 15 ML CUP MT SCH ×2 (08:00→20:00)
[2017-02-10] MEDS: ATORVASTATIN 40 MG TAB G-TUBE SCH (08:07)
[2017-02-10] MEDS: METOPROLOL TARTRATE 25 MG TAB G-TUBE SCH ×2 (08:07→21:28)
[2017-02-10] MEDS: JUVEN POWDER 1 PACK G-TUBE SCH ×2 (08:07→21:00)
[2017-02-10] MEDS: SENNOSIDES SYRUP 8.8 MG/5 ML CUP G-TUBE SCH ×2 (08:07→21:28)
[2017-02-10] MEDS: LACTULOSE SYRUP 20 GM/30 ML CUP G-TUBE SCH ×3 (08:07→16:38)
[2017-02-10] MEDS: FOLIC ACID 1 MG TAB OG-TUBE SCH (08:08)
[2017-02-10] MEDS: BROMOCRIPTINE MESYLATE 2.5 MG TAB OG-TUBE SCH ×2 (08:08→21:28)
[2017-02-10] MEDS: FAMOTIDINE 20 MG TAB NG SCH ×2 (08:08→21:28)
[2017-02-10] MEDS: FERROUS SULFATE 300 MG /5ML UDC PEG SCH ×2 (08:08→21:28)
[2017-02-10] MEDS: carBAMazepine SUSP 200 MG/10 ML UDC PEG SCH ×2 (08:08→21:28)
[2017-02-10] MEDS: levETIRAcetam 500 MG/5 ML UDC NG SCH ×2 (08:08→21:28)
[2017-02-10] MEDS: ASPIRIN 81 MG CHEW TAB NG SCH (08:08)
[2017-02-10] MEDS: ASCORBIC ACID 500 MG TAB PEG SCH ×2 (08:08→21:28)
[2017-02-10] MEDS: NYSTATIN SUSP 500,000 U/5 ML CUP SWISH-SWAL SCH ×4 (08:12→21:28)
[2017-02-10] MEDS: SODIUM CHLORIDE 0.9% FLUSH 10 ML FLUSH IV FLUSH SCH ×2 (08:13→21:28)
[2017-02-10] MEDS: FUROSEMIDE 20 MG/2 ML VIAL IV PUSH SCH ×2 (08:13→21:28)
[2017-02-10] MEDS: COLLAGENASE OINT 30 GM TUBE TOPICAL SCH (08:15)
--- NOTE | 2017-02-10 11:35 | HHI.PR ---
Subjective Remarks Follow up on patient with bilateral frontal CVA, Moyamoya disease, seizure d/o, COPD, multilobar pneumonia and acute respiratory failure. Patient seen and examined, t- piece continued on 28%. Patient lying in bed, awake, tracking with eyes. Does not follow any commands. Does not appear to be in pain. PEG dislodged this am. Awaiting IR for placement. Afebrile. Vitals stable. Objective Vitals Vital Signs Date Time Temp Pulse Resp B/P Pulse Ox O2 Delivery O2 Flow Rate FiO2 02/10/17 09:43 85 02/10/17 08:39 100 T-Piece 6.00 28 Humidified 02/10/17 08:24 96 T-piece 28 02/10/17 08:24 96 T-piece 28 02/10/17 08:00 98.8 87 20 136/77 100 02/10/17 06:05 96.2 99 20 156/90 97 02/10/17 01:37 97.9 82 20 128/67 96 02/09/17 21:30 97.6 82 18 127/74 99 02/09/17 20:35 81 02/09/17 18:23 98 T-piece 6.00 28 02/09/17 18:22 98 T-piece 6.00 28 02/09/17 16:00 97.6 86 19 128/74 98 02/09/17 15:22 99 T-Piece 5.00 28 Humidified 02/09/17 12:00 97.7 80 19 136/69 I/O 02/09/17 02/09/17 02/09/17 02/10/17 02/10/17 02/10/17 07:00 15:00 23:00 07:00 15:00 23:00 Intake Total 522 ml 200 ml 993 ml Output Total 500 ml 500 ml 800 ml Balance 22 ml -300 ml 993 ml -800 ml Intake Oral 0 ml IV Total 250 ml Tube Feeding 422 ml 683 ml Other 100 ml 200 ml 60 ml Output Urine Total 500 ml 500 ml 800 ml # Bowel Movements 2 0 Result Diagram: 02/08/17 0719 Imaging Last Impressions Lower Extremity Ultrasound 02/01/17 0000 Signed Impressions: Service Date/Time: Wednesday, February 01, 2017 13:23 - CONCLUSION: Normal examination. Gray Veronica MD Chest X-Ray 02/01/17 0000 Signed Impressions: Service Date/Time: Wednesday, February 01, 2017 08:45 - CONCLUSION: 1. Stable tracheostomy. 2. Mild interstitial prominence may reflect slight positive fluid balance. Christiano Villagran MD Brain MRI 01/06/17 0000 Signed Impressions: Service Date/Time: January 14:19 - CONCLUSION: Continued evolutionary changes of large bilateral frontal lobe infarcts. Sami Mccarthy MD Abdomen X-Ray 11/26/16 0000 Signed Impressions: Service Date/Time: Saturday, November 26, 2016 10:18 - CONCLUSION: Distended stomach otherwise nonspecific abdomen. K. David Murillo MD Objective Remarks GENERAL: WDWN female, lying in hospital bed. T piece in place. Remains nonverbal. Eyes open on verbal commands, does not track with eyes, does not follow commands. SKIN: Warm and dry. HEAD: Normocephalic. No scleral icterus. No injection or drainage. CARDIOVASCULAR: Regular rate and rhythm. No murmur appreciated. RESPIRATORY: Tracheostomy with t-collar in place. Breath sounds equal bilaterally. No accessory muscle use. GASTROINTESTINAL: Abdomen soft, non-tender, nondistended. PEG in place, site is clean, no erythema, dressing intact. MUSCULOSKELETAL: No cyanosis, or edema. Procedures PEG 11/24/2016 Percutaneous tracheostomy. 11/18/2016 Moderate encephalopathy with suggestion of left temporal region cortical irritability. No active seizures. Clinical correlation. Echocardiogram Severe dilated left ventricle. Wall thickness is normal. The left ventricular systolic function is moderately reduced with an estimated ejection fraction in the range of 35-40%. Doppler parameters are consistent with a restrictive left ventricular filling pattern indicative of decreased left ventricular diastolic compliance and increase left atrial pressure (grade 3 diastolic dysfunction). There is severe tricuspid regurgitation. There is severe pulmonary hypertension present ( > 70 mmHg). Severe mitral valve regurgitation. Urinary Catheter: Yes Assessment to: Continue Date of Insertion: Jan 29, 2017 A/P Problem List: (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 She was was admitted to [facility] emergency department 11/04/16 with difficulty getting her thoughts together. She was found to have multifocal nonhemorrhagic infarcts in left frontal and parietal regions, right frontal lobe and history of moyamoya disease. She was initially awake and following commands with weakness of RLE and some aphasia. She was transferred to [facility] where he had an cerebral angiogram consistent with moyamoya. There were plans to perform extracranial/intracranial bypass. However she had a seizure and ended up being intubated for status either 4/ or 4.. She was found to have a new right frontal infarct area and she was started on Dilantin and Keppra and it was felt that she would not be a candidate for intervention. She has been intubated 9-10 days and apparently she has been tolerating C Pap trials to some extent but mental status prevents extubation. Treating team was discussing with family trach/PEG. Apparently family requested transfer back to [place] because they live locally here and wanted her closer to home. Patient remained under critical care medicine until 12/24/2016. Bilateral large frontal CVA Moyamoya Disease Seizure Disorder - Continue Keppra 1,500 mg q12h - Continue Tegretol 200 mg q12h - Follow for seizure activity - Continue aspirin - Continue Bromocriptine - Tegretol level WNL. Hyperalbuminemia: 70 --> 49 --> 56 --> 54 today 02/10/17. Continue Lactulose 45 ml PO TID. Per RN, BMs have been frequent and loose. Systolic and diastolic heart failure, acute - Continue Lasix and MACKENZIE inhibitor. - Monitor electrolytes and renal function Atrial Fibrillation, acute: Controlled. - INR 2.1. Follow daily INR. - Continue Coumadin. Oral thrush: Nystatin swish and swallow QID. Requested RN to swab tongue since patient cannot swallow. Hyponatremia, resolved: Na 129 --> 134. Monitor. Continue hold of FWF for now. Hyperkalemia, resolved: K 5.5 --> 3.8. Anasarca: Continue Albumin 5% 12.5g q 12 hrs followed by Lasix 20 mg IV with Lasix being held for SBP less than 110. Chronic Respiratory Failure Chronic obstructive pulmonary disease Multilobar pneumonia - Pulmonology following, appreciate input. - Continue tracheostomy with supplemental oxygen. - Tobramycin completed, course ended on 01/20/17. Dysphagia Hypoalbuminemia - PEG dislodged overnight. Plan for IR to replace PEG today. Patient NPO at this time. - After procedure, resume diet as ordered by IR. Jevity 1.5 through PEG tube with Corby supplementation. Sacral/Coccyx wound - Continue specialty bed. - Wound care following, appreciate input. Last note with recommendations to pack wound daily with Santyl to sacrococcygeal wound. On right buttock, right ischium apply single layer Xeroform over open wound beds. Prep periwounds with Cavilon skin prep. Cover Xeroform with bordered gauze dressing. Change dressings EVERY OTHER DAY and PRN for dislodgement or soiling. GI Prophylaxis: Pepcid. DVT prophylaxis: SCDs. Coumadin. Discharge Planning Last CM note: 02/09/17- Sent referral to [facility] for review. Awaiting reply. Attending Statement Patient seen in her bedroom, discussed with PA Mrs. Jackie Walsh evaluated and read chart, has stable vital signs and Laboratory evaluated and also within normal limits, Awaiting for placement. Jackie Walsh Feb 10, 2017 11:35 Adrian Chang MD Feb 11, 2017 16:20
[2017-02-10 11:37] LABS: INTERNATIONAL NORMALIZED RATIO 2.1 RATIO; PROTHROMBIN TIME - PATIENT 24.1 SEC (9.8-11.6)
[2017-02-10] MEDS ORDERED: IOHEXOL 350 MG/ML 50 ML BTL (for RAD DIAG) G-TUBE ONE (15:17)
[2017-02-10] MEDS: WARFARIN SOD 7.5 MG TAB PO SCH (15:47)
[2017-02-10] MEDS: LISINOPRIL 5 MG TAB PO SCH (15:47)
--- NOTE | 2017-02-10 15:54 | RADRPT ---
EXAM DATE/TIME: 02/10/2017 13:47 [facility] COMPARISON: No previous studies available for comparison. INDICATIONS : Patient presents with a gastrostomy tube that fell out and is in need of an exchange for nutrition. MEDICAL HISTORY : Hypertension Coronary artery disease with history of myocardial infarction COPD SURGICAL HISTORY : N/A ENCOUNTER: Initial ACUITY: 3 months PAIN SCORE: 0/10 LOCATION: Unresponsive FLUORO TIME: 0.4 minutes IMAGE SERIES: 3 CONTRAST: 10 cc Omnipaque (iohexol) 350 DEVICE(S): 1.) 18 Divehi gastrostomy tube PROCEDURE : 1. Fluoroscopically guided gastrostomy tube exchange. 2. Conscious sedation with continuous EKG and oximetry monitoring. TECHNIQUE: The existing gastrostomy tube was removed intact. The tract was lubricated with lidoca ine jelly. A new 18 Divehi gastrostomy feeding tube was introduced. The retention balloon was inflate d. The collar was appropriately adjusted. Water-soluble contrast was injected and a fluoroscopic imag e was obtained, this revealing good positioning of the tube with contrast in the stomach and no evide nce of peritoneal leakage of contrast. The patient tolerated the replacement well. CONCLUSION: Uncomplicated fluoroscopic guided gastrostomy tube replacement. Positioning confirmed. Th e tube can be used immediately. Nghia Pacheco MD on February 10, 2017 at 15:49 Board Certified Radiologist. This report was verified electronically.
--- NOTE | 2017-02-10 19:08 | HHI.PR ---
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 Has episodes of Cheyyne Suazo breathing Awake, desaturates but spontaneously recovers quicklno New complaints reported. No new complaint Objective Vital Signs Vital Signs Date Time Temp Pulse Resp B/P Pulse Ox O2 Delivery O2 Flow Rate FiO2 02/10/17 16:00 96.7 87 22 127/66 100 02/10/17 09:43 85 02/10/17 08:39 100 T-Piece 6.00 28 Humidified 02/10/17 08:24 96 T-piece 28 02/10/17 08:24 96 T-piece 28 02/10/17 08:00 98.8 87 20 136/77 100 02/10/17 06:05 96.2 99 20 156/90 97 02/10/17 01:37 97.9 82 20 128/67 96 02/09/17 21:30 97.6 82 18 127/74 99 02/09/17 20:35 81 I/O 02/09/17 02/09/17 02/09/17 02/10/17 02/10/17 02/10/17 07:00 15:00 23:00 07:00 15:00 23:00 Intake Total 522 ml 200 ml 993 ml 60 ml 150 ml Output Total 500 ml 500 ml 800 ml 850 ml Balance 22 ml -300 ml 993 ml -800 ml -790 ml 150 ml Intake Oral 0 ml IV Total 250 ml Tube Feeding 422 ml 683 ml 90 ml Other 100 ml 200 ml 60 ml 60 ml 60 ml Output Urine Total 500 ml 500 ml 800 ml 850 ml # Bowel Movements 2 0 0 Result Diagram: 02/08/17 0719 Objective Remarks GENERAL: MBMN WF, on Trach collar SKIN: Warm and dry. HEAD: Normocephalic. EYES: No scleral icterus. No injection or drainage. NECK: Supple, trachea midline. No JVD or lymphadenopathy. has trach CARDIOVASCULAR: Regular rate and rhythm without murmurs, gallops, or rubs. RESPIRATORY: Breath sounds equal bilaterally. No accessory muscle use. GASTROINTESTINAL: Abdomen soft, non-tender, nondistended. has PEG MUSCULOSKELETAL: No cyanosis, or edema. BACK: Nontender without obvious deformity. No CVA tenderness. A/P Assessment and Plan RF, S/P Trach CVA Arango arango disease CAD COPD SZ disorder PLAN: Aerosol nebs Cont trach collar supplement 02 Trach suction prn. Levsin 0.125 mg q 8 hrs tolerates TF PARTHA RN at [facility] Marx MD Feb 10, 2017 19:08
[2017-02-11] VITALS (10 sets, daily range): BP systolic 125–182; BP diastolic 64–104; PULSE 88–98; RESP 18–24; TEMP 96.4–98.9; O2SAT 94–100
[2017-02-11] MEDS: ALBUMIN HUMAN 5% 12.5 GM/250 ML BOTTLE IV SCH ×2 (01:58→13:31)
[2017-02-11] MEDS: CHLORHEXIDINE GLUCONATE 2 % 1 PACK (2 CLOTHS) TOP SCH (02:18)
[2017-02-11] MEDS: HYOSCYAMINE 0.125 MG TAB G-TUBE SCH ×2 (05:37→13:30)
[2017-02-11] MEDS: SENNOSIDES SYRUP 8.8 MG/5 ML CUP G-TUBE SCH ×2 (07:37→22:17)
[2017-02-11] MEDS: CHLORHEXIDINE 0.12% (ORAL KIT) 15 ML CUP MT SCH (07:37)
[2017-02-11] MEDS: SODIUM CHLORIDE 0.9% FLUSH 10 ML FLUSH IV FLUSH SCH ×2 (07:40→22:18)
[2017-02-11] MEDS: FUROSEMIDE 20 MG/2 ML VIAL IV PUSH SCH ×2 (07:40→22:19)
[2017-02-11] MEDS: LACTULOSE SYRUP 20 GM/30 ML CUP G-TUBE SCH ×3 (07:42→17:27)
[2017-02-11] MEDS: NYSTATIN SUSP 500,000 U/5 ML CUP SWISH-SWAL SCH ×4 (07:42→22:21)
[2017-02-11] MEDS: FERROUS SULFATE 300 MG /5ML UDC PEG SCH ×2 (07:42→22:21)
[2017-02-11] MEDS: carBAMazepine SUSP 200 MG/10 ML UDC PEG SCH ×2 (07:43→22:21)
[2017-02-11] MEDS: BROMOCRIPTINE MESYLATE 2.5 MG TAB OG-TUBE SCH ×2 (07:44→22:21)
[2017-02-11] MEDS: ASCORBIC ACID 500 MG TAB PEG SCH ×2 (07:44→22:21)
[2017-02-11] MEDS: FAMOTIDINE 20 MG TAB NG SCH ×2 (07:44→22:20)
[2017-02-11] MEDS: levETIRAcetam 500 MG/5 ML UDC NG SCH ×2 (07:44→22:20)
[2017-02-11] MEDS: METOPROLOL TARTRATE 25 MG TAB G-TUBE SCH ×2 (07:44→22:17)
[2017-02-11] MEDS: ATORVASTATIN 40 MG TAB G-TUBE SCH (07:44)
[2017-02-11] MEDS: ASPIRIN 81 MG CHEW TAB NG SCH (07:44)
[2017-02-11] MEDS: FOLIC ACID 1 MG TAB OG-TUBE SCH (07:44)
[2017-02-11] MEDS: COLLAGENASE OINT 30 GM TUBE TOPICAL SCH (07:45)
[2017-02-11] MEDS: JUVEN POWDER 1 PACK G-TUBE SCH ×2 (07:52→22:17)
[2017-02-11 09:36] LABS: INTERNATIONAL NORMALIZED RATIO 2.5 RATIO; PROTHROMBIN TIME - PATIENT 28.9 SEC (9.8-11.6)
--- NOTE | 2017-02-11 11:03 | HHI.PR ---
Subjective Remarks Follow up on patient with bilateral frontal CVA, Moyamoya disease, seizure d/o, COPD, multilobar pneumonia and acute respiratory failure. Patient seen and examined. RN at bedside. Patient lying in bed, no apparent distress. Patient does not open eyes to vocalization today, grimaces to pain. Does not follow, does not track with eyes. T-collar in place. Abdomen round, soft and somewhat distended. No BM yesterday, + BS. Tolerating TF well, no residuals. No pain to palpation. Will monitor. Afebrile. Objective Vitals Vital Signs Date Time Temp Pulse Resp B/P Pulse Ox O2 Delivery O2 Flow Rate FiO2 02/11/17 09:12 96 02/11/17 08:10 100 T-Piece 6.00 28 Humidified 02/11/17 08:00 97.0 94 18 136/78 100 02/11/17 07:37 96.4 96 24 136/78 100 02/11/17 04:00 97.0 94 20 182/104 99 02/11/17 00:00 98.4 98 20 140/72 94 02/10/17 21:25 96 T-piece 5.00 28 02/10/17 20:00 93 02/10/17 20:00 93 T-Piece 28 02/10/17 16:00 96.7 87 22 127/66 100 I/O 02/10/17 02/10/17 02/10/17 02/11/17 02/11/17 02/11/17 07:00 15:00 23:00 07:00 15:00 23:00 Intake Total 60 ml 150 ml 1014 ml Output Total 800 ml 850 ml 0 ml 2400 ml Balance -800 ml -790 ml 150 ml -1386 ml IV Total 200 ml Tube Feeding 90 ml 414 ml Other 60 ml 60 ml 400 ml Output Urine Total 800 ml 850 ml 2400 ml Tube Feeding Residual Discard 0 ml # Bowel Movements 0 2 Result Diagram: 02/08/17 0719 Imaging Last Impressions Catheter Change 02/10/17 0000 Signed Impressions: Service Date/Time: February 13:47 - CONCLUSION: Uncomplicated fluoroscopic guided gastrostomy tube replacement. Positioning confirmed. The tube can be used immediately. Nghia Pacheco MD Lower Extremity Ultrasound 02/01/17 0000 Signed Impressions: Service Date/Time: Wednesday, February 01, 2017 13:23 - CONCLUSION: Normal examination. Gray Veronica MD Chest X-Ray 02/01/17 0000 Signed Impressions: Service Date/Time: Wednesday, February 01, 2017 08:45 - CONCLUSION: 1. Stable tracheostomy. 2. Mild interstitial prominence may reflect slight positive fluid balance. Christiano Villagran MD Brain MRI 01/06/17 0000 Signed Impressions: Service Date/Time: January 14:19 - CONCLUSION: Continued evolutionary changes of large bilateral frontal lobe infarcts. Sami Mccarthy MD Abdomen X-Ray 11/26/16 0000 Signed Impressions: Service Date/Time: Saturday, November 26, 2016 10:18 - CONCLUSION: Distended stomach otherwise nonspecific abdomen. Jackson Murillo MD Objective Remarks GENERAL: WDWN female, lying in hospital bed. T piece in place. Remains nonverbal. Eyes open on verbal commands, does not track with eyes, does not follow commands. SKIN: Warm and dry. HEAD: Normocephalic. No scleral icterus. No injection or drainage. CARDIOVASCULAR: Regular rate and rhythm. No murmur appreciated. RESPIRATORY: Tracheostomy with t-collar in place. Breath sounds equal bilaterally. No accessory muscle use. GASTROINTESTINAL: Abdomen soft, non-tender, round, somewhat distended. PEG in place, site is clean, no erythema, dressing intact. MUSCULOSKELETAL: No cyanosis, or edema. Procedures PEG 11/24/2016 Percutaneous tracheostomy. 11/18/2016 Moderate encephalopathy with suggestion of left temporal region cortical irritability. No active seizures. Clinical correlation. Echocardiogram Severe dilated left ventricle. Wall thickness is normal. The left ventricular systolic function is moderately reduced with an estimated ejection fraction in the range of 35-40%. Doppler parameters are consistent with a restrictive left ventricular filling pattern indicative of decreased left ventricular diastolic compliance and increase left atrial pressure (grade 3 diastolic dysfunction). There is severe tricuspid regurgitation. There is severe pulmonary hypertension present ( > 70 mmHg). Severe mitral valve regurgitation. Date of Insertion: Jan 29, 2017 A/P Problem List: (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 She was was admitted to [facility] emergency department 11/04/16 with difficulty getting her thoughts together. She was found to have multifocal nonhemorrhagic infarcts in left frontal and parietal regions, right frontal lobe and history of moyamoya disease. She was initially awake and following commands with weakness of RLE and some aphasia. She was transferred to [facility] where he had an cerebral angiogram consistent with moyamoya. There were plans to perform extracranial/intracranial bypass. However she had a seizure and ended up being intubated for status either 4/4 or 4/5.. She was found to have a new right frontal infarct area and she was started on Dilantin and Keppra and it was felt that she would not be a candidate for intervention. She has been intubated 9-10 days and apparently she has been tolerating C Pap trials to some extent but mental status prevents extubation. Treating team was discussing with family trach/PEG. Apparently family requested transfer back to [place] because they live locally here and wanted her closer to home. Patient remained under critical care medicine until 12/24/2016. Bilateral large frontal CVA Moyamoya Disease Seizure Disorder - Continue Keppra 1,500 mg q12h - Continue Tegretol 200 mg q12h - Follow for seizure activity - Continue aspirin - Continue Bromocriptine - Tegretol level WNL. Hyperammonemia: 70 --> 49 --> 56 --> 54. Continue Lactulose 45 ml PO TID. No BM yesterday, prior patient was having loose liquid stools. Systolic and diastolic heart failure, acute - Continue Lasix and MACKENZIE inhibitor. - Monitor electrolytes and renal function Atrial Fibrillation, acute: Controlled. - INR 2.1. Follow daily INR. - Continue Coumadin. Oral thrush: Nystatin swish and swallow QID. Requested RN to swab tongue since patient cannot swallow. Hyponatremia, resolved: Na 129 --> 134. Monitor. Continue hold of FWF for now. Hyperkalemia, resolved: K 5.5 --> 3.8. Anasarca: Continue Albumin 5% 12.5g q 12 hrs followed by Lasix 20 mg IV with Lasix being held for SBP less than 110. Mildly improving. Will decrease medications when improvement seen. Follow clinically. Chronic Respiratory Failure Chronic obstructive pulmonary disease Multilobar pneumonia - Pulmonology following, appreciate input. - Continue tracheostomy with supplemental oxygen. - Tobramycin completed, course ended on 01/20/17. Dysphagia Hypoalbuminemia - PEG placed. Continue TF. - Jevity 1.5 through PEG tube with Corby supplementation. Tolerating well. Sacral/Coccyx wound - Continue specialty bed. - Wound care following, appreciate input. Last note with recommendations to pack wound daily with Santyl to sacrococcygeal wound. On right buttock, right ischium apply single layer Xeroform over open wound beds. Prep periwounds with Cavilon skin prep. Cover Xeroform with bordered gauze dressing. Change dressings EVERY OTHER DAY and PRN for dislodgement or soiling. GI Prophylaxis: Pepcid. DVT prophylaxis: SCDs. Coumadin. Discharge Planning Last CM note: 02/09/17- Sent referral to [facility] for review. Awaiting reply. Attending Statement Patient seen in her bedroom, discussed with PA Mrs. Jackie Walsh evaluated and read chart, has stable vital signs and Laboratory evaluated and also within normal limits, Awaiting for placement. Discussed with health plan specialist Miss Hammond she states the patient is not improving and will need Surgical Consult will follow recommendations. Jackie Walsh Feb 11, 2017 11:03 Adrian Chang MD Feb 11, 2017 16:21
--- NOTE | 2017-02-11 13:51 | PD.WCN.NOT ---
Wound Consult Description: Follow up evaluation of wounds to sacrococcygeal, right ischium, right buttock. Communicated with: ANDRE Holm Dr Recommendation: Sacrococcygeal wound: Plastics consult for surgical sharp debridement if patient is a candidate. *New recommendations of 1/4 strength Dakins moistened gauze lightly packed into wound bed, cover with dry 4x4, and secure with bordered gauze daily. Right buttock, Right ischium: Apply Single layer Xeroform over open wound beds and cover with bordered gauze EVERY OTHER DAY and PRN for soiling or dislodgement. Prep all periwounds with skin barrier film. Date all dressings Additional Information: Patient seen on for wound evaluation of Stage IV sacrococcygeal pressure injury that was cleansed with wound cleanser and is noted with ~80% yellow and brown loosely adherent slough and ~20% pink tissue to vascular wound bed with mild odor, no active drainage. Wound margins are partially open and noted with brown adherent slough extending out ~2.5cm to periwound and periwound is noted with partial thickness skinloss. Wound is measuring 3cm x 2cm x 3cm with circumferential undermining with the deepest noted at 4 o'clock. Removed dressing was noted with yellow/brown exudate and mild odor. Wound was gently packed with NS moistened gauze, covered with dry 4x4 and secured with bordered gauze dated today. Santyl was not applied as ordered due to worsening of wound appearance, exudate, and odor. Physician was contacted for new recommendations of Dakins 1/4 strength wet to dry with light gauze packing. Right buttock wound is measuring 1cm x 1cm x <0.1cm and is partial thickness with 100% red non granulating tissue. Wound was cleansed with wound cleanser and covered with single layer Xeroform and secured with bordered gauze dressing dated today. Wound appears to have improved. Right ischium wound is measuring 2cm x 2cm x 0.1cm of ~100% adipose tissue that was cleansed with wound cleanser and covered with single layer Xeroform and secured with bordered gauze dressing dated today. Wound appears stable. Stephany Fang [facility] Feb 11, 2017 13:51
[2017-02-11] MEDS: WARFARIN SOD 7.5 MG TAB PO SCH (17:28)
[2017-02-11] MEDS: LISINOPRIL 5 MG TAB PO SCH (17:28)
--- NOTE | 2017-02-11 18:00 | HHI.PR ---
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 Has episodes of Cheyyne Suazo breathing Awake, desaturates but spontaneously recovers quicklno New complaints reported. Trach secretions thick Objective Vital Signs Vital Signs Date Time Temp Pulse Resp B/P Pulse Ox O2 Delivery O2 Flow Rate FiO2 02/11/17 12:00 97.1 94 20 128/79 97 02/11/17 10:40 100 T-piece 6.00 28 02/11/17 10:40 100 T-piece 6.00 28 02/11/17 09:12 96 02/11/17 08:10 100 T-Piece 6.00 28 Humidified 02/11/17 08:00 97.0 94 18 136/78 100 02/11/17 07:37 96.4 96 24 136/78 100 02/11/17 04:00 97.0 94 20 182/104 99 02/11/17 00:00 98.4 98 20 140/72 94 02/10/17 21:25 96 T-piece 5.00 28 02/10/17 20:00 93 02/10/17 20:00 93 T-Piece 28 I/O 02/10/17 02/10/17 02/10/17 02/11/17 02/11/17 02/11/17 07:00 15:00 23:00 07:00 15:00 23:00 Intake Total 60 ml 150 ml 1014 ml 120 ml 926 ml Output Total 800 ml 850 ml 0 ml 2400 ml Balance -800 ml -790 ml 150 ml -1386 ml 120 ml 926 ml IV Total 200 ml 250 ml Tube Feeding 90 ml 414 ml 616 ml Other 60 ml 60 ml 400 ml 120 ml 60 ml Output Urine Total 800 ml 850 ml 2400 ml Tube Feeding Residual Discard 0 ml # Bowel Movements 0 2 Result Diagram: 02/08/17 0719 Objective Remarks GENERAL: MBMN WF, on Trach collar SKIN: Warm and dry. HEAD: Normocephalic. EYES: No scleral icterus. No injection or drainage. NECK: Supple, trachea midline. No JVD or lymphadenopathy. has trach CARDIOVASCULAR: Regular rate and rhythm without murmurs, gallops, or rubs. RESPIRATORY: Breath sounds equal bilaterally. No accessory muscle use. GASTROINTESTINAL: Abdomen soft, non-tender, nondistended. has PEG MUSCULOSKELETAL: No cyanosis, or edema. BACK: Nontender without obvious deformity. No CVA tenderness. A/P Assessment and Plan RF, S/P Trach CVA Aarngo arango disease CAD COPD SZ disorder PLAN: Aerosol nebs Cont trach collar supplement 02 Trach suction prn. tolerates TF DW RN at [facility] Vernon Stapleton MD Feb 11, 2017 18:00
--- NOTE | 2017-02-11 18:53 | RADRPT ---
EXAM DATE/TIME: 02/11/2017 17:52 [facility] COMPARISON: ABDOMEN KUB ONLY, November 26, 2016, 10:18. INDICATIONS : Abdominal distention and pain. MEDICAL HISTORY : Myocardial infarction. Stroke. Seizures. Hypertension. SURGICAL HISTORY : None. ENCOUNTER: Subsequent ACUITY: 1 day PAIN SCORE: Non-responsive. LOCATION: Abdomen FINDINGS: Lung bases are clear. Scattered gas is seen in the colon. There is no free air or obstruction. Deg enerative changes are present in the lumbar spine. CONCLUSION: Minimal colonic distention. Kenneth Frost MD FACR on February 11, 2017 at 18:47 Board Certified Radiologist. This report was verified electronically.
[2017-02-12] VITALS (10 sets, daily range): BP systolic 136–173; BP diastolic 83–97; PULSE 85–98; RESP 18–22; TEMP 95–98.6; O2SAT 95–100
[2017-02-12] MEDS: CHLORHEXIDINE 0.12% (ORAL KIT) 15 ML CUP MT SCH ×3 (00:31→20:00)
[2017-02-12] MEDS: ALBUMIN HUMAN 5% 12.5 GM/250 ML BOTTLE IV SCH ×2 (02:30→14:00)
[2017-02-12] MEDS: CHLORHEXIDINE GLUCONATE 2 % 1 PACK (2 CLOTHS) TOP SCH (04:00)
[2017-02-12 08:47] LABS: INTERNATIONAL NORMALIZED RATIO 2.3 RATIO; PROTHROMBIN TIME - PATIENT 26.2 SEC (9.8-11.6)
[2017-02-12] MEDS: COLLAGENASE OINT 30 GM TUBE TOPICAL SCH (09:00)
[2017-02-12] MEDS: JUVEN POWDER 1 PACK G-TUBE SCH ×2 (09:00→21:00)
[2017-02-12] MEDS: NYSTATIN SUSP 500,000 U/5 ML CUP SWISH-SWAL SCH ×4 (09:00→23:28)
[2017-02-12] MEDS: FERROUS SULFATE 300 MG /5ML UDC PEG SCH ×2 (09:34→23:27)
[2017-02-12] MEDS: levETIRAcetam 500 MG/5 ML UDC NG SCH ×2 (09:35→23:27)
[2017-02-12] MEDS: LACTULOSE SYRUP 20 GM/30 ML CUP G-TUBE SCH ×3 (09:35→18:00)
[2017-02-12] MEDS: carBAMazepine SUSP 200 MG/10 ML UDC PEG SCH ×2 (09:39→23:28)
[2017-02-12] MEDS: SENNOSIDES SYRUP 8.8 MG/5 ML CUP G-TUBE SCH ×3 (09:39→23:27)
[2017-02-12] MEDS: ASPIRIN 81 MG CHEW TAB NG SCH (09:40)
[2017-02-12] MEDS: FAMOTIDINE 20 MG TAB NG SCH ×2 (09:40→23:28)
[2017-02-12] MEDS: METOPROLOL TARTRATE 25 MG TAB G-TUBE SCH ×2 (09:40→23:28)
[2017-02-12] MEDS: ASCORBIC ACID 500 MG TAB PEG SCH ×2 (09:41→23:28)
[2017-02-12] MEDS: ATORVASTATIN 40 MG TAB G-TUBE SCH (09:41)
[2017-02-12] MEDS: FOLIC ACID 1 MG TAB OG-TUBE SCH (09:41)
[2017-02-12] MEDS: BROMOCRIPTINE MESYLATE 2.5 MG TAB OG-TUBE SCH ×2 (09:41→23:28)
[2017-02-12] MEDS: FUROSEMIDE 20 MG/2 ML VIAL IV PUSH SCH ×2 (09:42→23:28)
[2017-02-12] MEDS: SODIUM CHLORIDE 0.9% FLUSH 10 ML FLUSH IV FLUSH SCH ×2 (10:12→23:28)
--- NOTE | 2017-02-12 11:31 | HHI.PR ---
Subjective Remarks Follow up on patient with bilateral frontal CVA, Moyamoya disease, seizure d/o, COPD, multilobar pneumonia and acute respiratory failure. Patient seen and examined. RN at bedside. Patient lying in bed with eyes closed, awakens to voice and noxious stimuli. Does not follow commands or track with eyes. Abdomen less distended today, soft and round. Positive BM. Objective Vitals Vital Signs Date Time Temp Pulse Resp B/P Pulse Ox O2 Delivery O2 Flow Rate FiO2 02/12/17 08:39 95 T-piece 28 02/12/17 08:39 95 T-piece 02/12/17 08:11 97.9 98 20 155/85 99 02/12/17 07:15 93 02/12/17 07:15 Trach Collar 5.00 02/12/17 07:10 Trach Collar 5.00 02/12/17 04:20 100 T-piece 5.00 02/12/17 04:20 100 T-piece 5.00 02/12/17 04:00 95.0 94 20 162/84 95 02/12/17 00:00 98.0 98 18 136/87 98 02/11/17 22:15 96 T-piece 28 02/11/17 20:00 98 02/11/17 20:00 96 T-Piece 6.00 02/11/17 20:00 98.9 95 20 141/79 98 02/11/17 16:00 96.7 88 18 125/64 98 02/11/17 12:00 97.1 94 20 128/79 97 I/O 02/11/17 02/11/17 02/11/17 02/12/17 02/12/17 02/12/17 07:00 15:00 23:00 07:00 15:00 23:00 Intake Total 1014 ml 120 ml 926 ml 180 ml Output Total 2400 ml 950 ml Balance -1386 ml 120 ml 926 ml -950 ml 180 ml IV Total 200 ml 250 ml Tube Feeding 414 ml 616 ml 180 ml Other 400 ml 120 ml 60 ml Output Urine Total 2400 ml 950 ml # Bowel Movements 2 1 Result Diagram: 02/08/17 0719 Imaging Last Impressions Abdomen X-Ray 02/11/17 0000 Signed Impressions: Service Date/Time: Saturday, February 11, 2017 17:52 - CONCLUSION: Minimal colonic distention. Kenneth Frost MD FACR Catheter Change 02/10/17 0000 Signed Impressions: Service Date/Time: February 13:47 - CONCLUSION: Uncomplicated fluoroscopic guided gastrostomy tube replacement. Positioning confirmed. The tube can be used immediately. Nghia Pacheco MD Lower Extremity Ultrasound 02/01/17 0000 Signed Impressions: Service Date/Time: Wednesday, February 01, 2017 13:23 - CONCLUSION: Normal examination. Gray Veronica MD Chest X-Ray 02/01/17 0000 Signed Impressions: Service Date/Time: Wednesday, February 01, 2017 08:45 - CONCLUSION: 1. Stable tracheostomy. 2. Mild interstitial prominence may reflect slight positive fluid balance. Christiano Villagran MD Brain MRI 01/06/17 0000 Signed Impressions: Service Date/Time: January 14:19 - CONCLUSION: Continued evolutionary changes of large bilateral frontal lobe infarcts. Sami Mccarthy MD Objective Remarks GENERAL: WDWN female, lying in hospital bed. T piece in place. Remains nonverbal. Eyes open on verbal commands and noxious stimuli, does not track with eyes, does not follow commands. SKIN: Warm and dry. HEAD: Normocephalic. No scleral icterus. No injection or drainage. CARDIOVASCULAR: Regular rate and rhythm. No murmur appreciated. RESPIRATORY: Tracheostomy with t-collar in place. Breath sounds equal bilaterally. No accessory muscle use. GASTROINTESTINAL: Abdomen soft, non-tender, round, somewhat distended. PEG in place, site is clean, no erythema, dressing intact. MUSCULOSKELETAL: No cyanosis, or edema. Procedures PEG 11/24/2016 Percutaneous tracheostomy. 11/18/2016 Moderate encephalopathy with suggestion of left temporal region cortical irritability. No active seizures. Clinical correlation. Echocardiogram Severe dilated left ventricle. Wall thickness is normal. The left ventricular systolic function is moderately reduced with an estimated ejection fraction in the range of 35-40%. Doppler parameters are consistent with a restrictive left ventricular filling pattern indicative of decreased left ventricular diastolic compliance and increase left atrial pressure (grade 3 diastolic dysfunction). There is severe tricuspid regurgitation. There is severe pulmonary hypertension present ( > 70 mmHg). Severe mitral valve regurgitation. Urinary Catheter: Yes Assessment to: Continue Brown insert reason: Stage III/IV Press Ulcer Date of Insertion: Jan 29, 2017 A/P Problem List: (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 She was was admitted to [facility] emergency department 11/04/16 with difficulty getting her thoughts together. She was found to have multifocal nonhemorrhagic infarcts in left frontal and parietal regions, right frontal lobe and history of moyamoya disease. She was initially awake and following commands with weakness of RLE and some aphasia. She was transferred to [facility] where he had an cerebral angiogram consistent with moyamoya. There were plans to perform extracranial/intracranial bypass. However she had a seizure and ended up being intubated for status either 4/4 or 4/5.. She was found to have a new right frontal infarct area and she was started on Dilantin and Keppra and it was felt that she would not be a candidate for intervention. She has been intubated 9-10 days and apparently she has been tolerating C Pap trials to some extent but mental status prevents extubation. Treating team was discussing with family trach/PEG. Apparently family requested transfer back to [place] because they live locally here and wanted her closer to home. Patient remained under critical care medicine until 12/24/2016. Bilateral large frontal CVA Moyamoya Disease Seizure Disorder - Continue Keppra 1,500 mg q12h - Continue Tegretol 200 mg q12h - Follow for seizure activity - Continue aspirin - Continue Bromocriptine - Tegretol level WNL. Hyperammonemia: 70 --> 49 --> 56 --> 54. Continue Lactulose 45 ml PO TID. Positive BM. Monitor. Systolic and diastolic heart failure, acute - Continue Lasix and MACKENZIE inhibitor. - Monitor electrolytes and renal function. - Urine kevan in color today. Will restart FWF 100 ml per PEG q 6hr to avoid dehydration with lasix. Will recheck BMP in am, follow. Atrial Fibrillation, acute: Controlled. - INR 2.1. Follow daily INR. - Continue Coumadin. Oral thrush: Nystatin swish and swallow QID. Requested RN to swab tongue since patient cannot swallow. Hyponatremia, resolved: Na 129 --> 134. Hyperkalemia, resolved: K 5.5 --> 3.8. - Recheck BMP in am. Follow. Anasarca: Continue Albumin 5% 12.5g q 12 hrs followed by Lasix 20 mg IV with Lasix being held for SBP less than 110. Mildly improving. Will decrease medications when improvement seen. Follow clinically. Chronic Respiratory Failure Chronic obstructive pulmonary disease Multilobar pneumonia - Pulmonology following, appreciate input. - Continue tracheostomy with supplemental oxygen. - Tobramycin completed, course ended on 01/20/17. Dysphagia Hypoalbuminemia - PEG placed. Continue TF. - Jevity 1.5 through PEG tube with Corby supplementation. Tolerating well. Sacral/Coccyx wound - Continue specialty bed. - Wound care following, appreciate input. Last note with recommendations to pack wound daily with Santyl to sacrococcygeal wound. On right buttock, right ischium apply single layer Xeroform over open wound beds. Prep periwounds with Cavilon skin prep. Cover Xeroform with bordered gauze dressing. Change dressings EVERY OTHER DAY and PRN for dislodgement or soiling. - Wound care recommending plastics consult for additional recommendations, appreciate input. Abdominal distention: KUB ordered and reviewed showing mild colonic distention. Positive BM. Positive bowel sounds x 4 quadrants. Tolerating TF per RN, will continue to monitor. GI Prophylaxis: Pepcid. DVT prophylaxis: SCDs. Coumadin. Discharge Planning Last CM note: 02/09/17- Sent referral to [facility] for review. Awaiting reply. Jackie Walsh Feb 12, 2017 11:31
[2017-02-12] MEDS: FREE WATER G-TUBE SCH ×3 (12:00→23:29)
[2017-02-12] MEDS: WARFARIN SOD 7.5 MG TAB PO SCH (16:00)
[2017-02-12] MEDS: LISINOPRIL 5 MG TAB PO SCH (16:00)
[2017-02-12] MEDS: SODIUM HYPOCHLORITE 0.25% 500 ML BTL TOPICAL SCH (18:00)
[2017-02-13] VITALS (9 sets, daily range): BP systolic 118–140; BP diastolic 72–82; PULSE 82–96; RESP 20–24; TEMP 97.5–98.9; O2SAT 98–100
[2017-02-13] MEDS: ALBUMIN HUMAN 5% 12.5 GM/250 ML BOTTLE IV SCH ×2 (02:00→13:38)
[2017-02-13] MEDS: CHLORHEXIDINE GLUCONATE 2 % 1 PACK (2 CLOTHS) TOP SCH (04:00)
[2017-02-13] MEDS: FREE WATER G-TUBE SCH ×4 (06:00→23:21)
[2017-02-13 07:01] LABS: AUTOMATED NEUTROPHIL # 8.6 TH/MM3 (1.8-7.7); BASOPHIL # 0.1 TH/MM3 (0-0.2); BASOPHIL % 0.7 % (0.0-2.0); EOSINOPHIL # 0.1 TH/MM3 (0-0.4); EOSINOPHIL % 1.1 % (0.0-4.0); HEMATOCRIT 30.5 % (35.0-46.0); HEMO FLAGS DIFF FINAL; LYMPH % 14.8 % (9.0-44.0); LYMPHOCYTE # 1.7 TH/MM3 (1.0-4.8); MEAN CELL VOLUME 78.1 FL (80.0-100.0); MEAN CORPUSCULAR HEMOGLOBIN 24.2 PG (27.0-34.0); MONO % 10.5 % (0.0-8.0); NEUT % 72.9 % (16.0-70.0); PLATELET COUNT 369 TH/MM3 (150-450); RED BLOOD COUNT 3.91 MIL/MM3 (4.00-5.30); RED CELL DISTRIBUTION WIDTH 20.2 % (11.6-17.2); WHITE BLOOD COUNT 11.8 TH/MM3 (4.0-11.0)
[2017-02-13 07:06] LABS: INTERNATIONAL NORMALIZED RATIO 2.3 RATIO
[2017-02-13] MEDS: CHLORHEXIDINE 0.12% (ORAL KIT) 15 ML CUP MT SCH ×2 (08:00→20:00)
[2017-02-13 08:56] LABS: BICARBONATE 32.3 MEQ/L (21.0-32.0); POTASSIUM 4.4 MEQ/L (3.5-5.1)
[2017-02-13] MEDS: JUVEN POWDER 1 PACK G-TUBE SCH ×2 (09:00→21:00)
[2017-02-13] MEDS: SODIUM HYPOCHLORITE 0.25% 500 ML BTL TOPICAL SCH (09:00)
[2017-02-13] MEDS: COLLAGENASE OINT 30 GM TUBE TOPICAL SCH (09:00)
[2017-02-13] MEDS: SENNOSIDES SYRUP 8.8 MG/5 ML CUP G-TUBE SCH ×2 (09:35→21:00)
[2017-02-13] MEDS: LACTULOSE SYRUP 20 GM/30 ML CUP G-TUBE SCH ×3 (09:35→18:00)
[2017-02-13] MEDS: FERROUS SULFATE 300 MG /5ML UDC PEG SCH ×2 (09:36→23:20)
[2017-02-13] MEDS: carBAMazepine SUSP 200 MG/10 ML UDC PEG SCH ×2 (09:36→23:20)
[2017-02-13] MEDS: levETIRAcetam 500 MG/5 ML UDC NG SCH ×2 (09:36→23:19)
[2017-02-13] MEDS: BROMOCRIPTINE MESYLATE 2.5 MG TAB OG-TUBE SCH ×2 (09:37→23:20)
[2017-02-13] MEDS: FAMOTIDINE 20 MG TAB NG SCH ×2 (09:37→23:19)
[2017-02-13] MEDS: FUROSEMIDE 20 MG/2 ML VIAL IV PUSH SCH ×2 (09:37→23:20)
[2017-02-13] MEDS: ATORVASTATIN 40 MG TAB G-TUBE SCH (09:37)
[2017-02-13] MEDS: NYSTATIN SUSP 500,000 U/5 ML CUP SWISH-SWAL SCH ×4 (09:37→23:20)
[2017-02-13] MEDS: ASPIRIN 81 MG CHEW TAB NG SCH (09:38)
[2017-02-13] MEDS: ASCORBIC ACID 500 MG TAB PEG SCH ×2 (09:38→23:19)
[2017-02-13] MEDS: METOPROLOL TARTRATE 25 MG TAB G-TUBE SCH ×2 (09:38→23:19)
[2017-02-13] MEDS: FOLIC ACID 1 MG TAB OG-TUBE SCH (09:38)
[2017-02-13] MEDS: SODIUM CHLORIDE 0.9% FLUSH 10 ML FLUSH IV FLUSH SCH ×2 (09:38→21:00)
--- NOTE | 2017-02-13 11:53 | HHI.PR ---
Subjective Remarks Follow up on patient with bilateral frontal CVA, Moyamoya disease, seizure d/o, COPD, multilobar pneumonia and acute respiratory failure. Patient seen and examined, no new acute changes overnight. Lying in bed on t-collar, O2 sats 100% , heart rate 75 bpm. Opens eyes to noxious stimuli. Does not track nor follow commands. Continued anasarca despite diuretics. Afebrile. VSS. Objective Vitals Vital Signs Date Time Temp Pulse Resp B/P Pulse Ox O2 Delivery O2 Flow Rate FiO2 02/13/17 10:45 100 T-piece 5.00 02/13/17 10:45 100 T-piece 5.00 02/13/17 08:22 98.9 87 20 124/82 99 02/13/17 04:00 98.3 82 24 118/72 100 02/13/17 00:00 97.5 85 24 130/72 100 02/12/17 23:55 Trach Collar 5.00 02/12/17 21:48 98 T-piece 02/12/17 21:48 98 T-piece 02/12/17 20:00 98.0 90 22 136/93 99 02/12/17 16:57 98.5 93 18 173/97 97 02/12/17 13:01 98.6 85 20 157/83 99 I/O 02/12/17 02/12/17 02/12/17 02/13/17 02/13/17 02/13/17 07:00 15:00 23:00 07:00 15:00 23:00 Intake Total 280 ml 90 ml Output Total 950 ml 2400 ml 450 ml Balance -950 ml 280 ml -2310 ml -450 ml Tube Feeding 280 ml Tube Irrigant 90 ml Output Urine Total 950 ml 2400 ml 450 ml # Bowel Movements 1 1 0 Result Diagram: 02/13/17 0553 02/13/17 0815 Imaging Last Impressions Abdomen X-Ray 02/11/17 0000 Signed Impressions: Service Date/Time: Saturday, February 11, 2017 17:52 - CONCLUSION: Minimal colonic distention. Kenneth Frost MD FACR Catheter Change 02/10/17 0000 Signed Impressions: Service Date/Time: February 13:47 - CONCLUSION: Uncomplicated fluoroscopic guided gastrostomy tube replacement. Positioning confirmed. The tube can be used immediately. Nghia Pacheco MD Lower Extremity Ultrasound 02/01/17 0000 Signed Impressions: Service Date/Time: Wednesday, February 01, 2017 13:23 - CONCLUSION: Normal examination. Gray Veronica MD Chest X-Ray 02/01/17 0000 Signed Impressions: Service Date/Time: Wednesday, February 01, 2017 08:45 - CONCLUSION: 1. Stable tracheostomy. 2. Mild interstitial prominence may reflect slight positive fluid balance. Christiano Villagran MD Brain MRI 01/06/17 0000 Signed Impressions: Service Date/Time: January 14:19 - CONCLUSION: Continued evolutionary changes of large bilateral frontal lobe infarcts. Sami Mccarthy MD Objective Remarks GENERAL: WDWN female, lying in hospital bed. T piece in place. Remains nonverbal. Eyes open on verbal commands and noxious stimuli, does not track with eyes, does not follow commands. SKIN: Warm and dry. HEAD: Normocephalic. No scleral icterus. No injection or drainage. CARDIOVASCULAR: Regular rate and rhythm. No murmur appreciated. RESPIRATORY: Tracheostomy with t-collar in place. Breath sounds equal bilaterally. No accessory muscle use. GASTROINTESTINAL: Abdomen soft, non-tender, round, somewhat distended. PEG in place, site is clean, no erythema, dressing intact. MUSCULOSKELETAL: No cyanosis, or edema. Procedures PEG 11/24/2016 Percutaneous tracheostomy. 11/18/2016 Moderate encephalopathy with suggestion of left temporal region cortical irritability. No active seizures. Clinical correlation. Echocardiogram Severe dilated left ventricle. Wall thickness is normal. The left ventricular systolic function is moderately reduced with an estimated ejection fraction in the range of 35-40%. Doppler parameters are consistent with a restrictive left ventricular filling pattern indicative of decreased left ventricular diastolic compliance and increase left atrial pressure (grade 3 diastolic dysfunction). There is severe tricuspid regurgitation. There is severe pulmonary hypertension present ( > 70 mmHg). Severe mitral valve regurgitation. Urinary Catheter: Yes Assessment to: Continue Brown insert reason: Stage III/IV Press Ulcer Date of Insertion: Jan 29, 2017 A/P Problem List: (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 She was was admitted to [facility] emergency department 11/04/16 with difficulty getting her thoughts together. She was found to have multifocal nonhemorrhagic infarcts in left frontal and parietal regions, right frontal lobe and history of moyamoya disease. She was initially awake and following commands with weakness of RLE and some aphasia. She was transferred to [facility] where he had an cerebral angiogram consistent with moyamoya. There were plans to perform extracranial/intracranial bypass. However she had a seizure and ended up being intubated for status either 4/4 or 4/5.. She was found to have a new right frontal infarct area and she was started on Dilantin and Keppra and it was felt that she would not be a candidate for intervention. She has been intubated 9-10 days and apparently she has been tolerating C Pap trials to some extent but mental status prevents extubation. Treating team was discussing with family trach/PEG. Apparently family requested transfer back to [place] because they live locally here and wanted her closer to home. Patient remained under critical care medicine until 12/24/2016. Bilateral large frontal CVA Moyamoya Disease Seizure Disorder - Continue Keppra 1,500 mg q12h - Continue Tegretol 200 mg q12h - Follow for seizure activity - Continue aspirin - Continue Bromocriptine - Tegretol level WNL. Hyperammonemia: 70 --> 49 --> 56 --> 54. Continue Lactulose 45 ml PO TID. Positive BM. Systolic and diastolic heart failure, acute - Continue Lasix and MACKENZIE inhibitor. - Monitor electrolytes and renal function - BMP reviewed today 02/13/17, unremarkable. Atrial Fibrillation, acute: Controlled. - INR 2.3. Follow daily INR. - Continue Coumadin. Oral thrush: Nystatin swish and swallow QID. Requested RN to swab tongue since patient cannot swallow. Hyponatremia, resolved: Na 129 --> 134. Monitor. Continue hold of FWF for now. Hyperkalemia, resolved: K 5.5 --> 3.8. Anasarca: Continue Albumin 5% 12.5g q 12 hrs followed by Lasix 20 mg IV with Lasix being held for SBP less than 110. Will decrease medications when improvement seen. Still present. Follow clinically. Chronic Respiratory Failure Chronic obstructive pulmonary disease Multilobar pneumonia - Pulmonology following, appreciate input. - Continue tracheostomy with supplemental oxygen. - Tobramycin completed, course ended on 01/20/17. Dysphagia Hypoalbuminemia - PEG placed. Continue TF. - Jevity 1.5 through PEG tube with Corby supplementation. Tolerating well. Sacral/Coccyx wound - Continue specialty bed. - Wound care following, appreciate input. Last note with recommendations to pack wound daily with Santyl to sacrococcygeal wound. On right buttock, right ischium apply single layer Xeroform over open wound beds. Prep periwounds with Cavilon skin prep. Cover Xeroform with bordered gauze dressing. Change dressings EVERY OTHER DAY and PRN for dislodgement or soiling. GI Prophylaxis: Pepcid. DVT prophylaxis: SCDs. Coumadin. Discharge Planning Last CM note: 02/09/17- Sent referral to [facility] for review. Awaiting reply. Jackie Walsh Feb 13, 2017 11:53
[2017-02-13] MEDS: WARFARIN SOD 7.5 MG TAB PO SCH (18:38)
[2017-02-13] MEDS: LISINOPRIL 5 MG TAB PO SCH (18:39)
[2017-02-14] VITALS (8 sets, daily range): BP systolic 114–139; BP diastolic 68–81; PULSE 76–93; RESP 19–22; TEMP 96.3–98.5; O2SAT 95–99
[2017-02-14] MEDS: ALBUMIN HUMAN 5% 12.5 GM/250 ML BOTTLE IV SCH ×2 (02:00→12:48)
[2017-02-14] MEDS: CHLORHEXIDINE GLUCONATE 2 % 1 PACK (2 CLOTHS) TOP SCH (04:00)
[2017-02-14] MEDS: FREE WATER G-TUBE SCH ×3 (05:51→18:13)
[2017-02-14] MEDS: JUVEN POWDER 1 PACK G-TUBE SCH ×2 (09:50→21:00)
[2017-02-14] MEDS: CHLORHEXIDINE 0.12% (ORAL KIT) 15 ML CUP MT SCH ×2 (09:50→21:41)
[2017-02-14] MEDS: carBAMazepine SUSP 200 MG/10 ML UDC PEG SCH ×2 (09:51→21:38)
[2017-02-14] MEDS: levETIRAcetam 500 MG/5 ML UDC NG SCH ×2 (09:52→21:00)
[2017-02-14] MEDS: BROMOCRIPTINE MESYLATE 2.5 MG TAB OG-TUBE SCH ×2 (09:52→21:37)
[2017-02-14] MEDS: NYSTATIN SUSP 500,000 U/5 ML CUP SWISH-SWAL SCH ×4 (09:52→21:38)
[2017-02-14] MEDS: FAMOTIDINE 20 MG TAB NG SCH ×2 (09:52→21:37)
[2017-02-14] MEDS: FERROUS SULFATE 300 MG /5ML UDC PEG SCH ×2 (09:52→21:38)
[2017-02-14] MEDS: LACTULOSE SYRUP 20 GM/30 ML CUP G-TUBE SCH ×3 (09:52→18:13)
[2017-02-14] MEDS: SODIUM CHLORIDE 0.9% FLUSH 10 ML FLUSH IV FLUSH SCH ×2 (09:53→21:00)
[2017-02-14] MEDS: ASCORBIC ACID 500 MG TAB PEG SCH ×2 (09:53→21:37)
[2017-02-14] MEDS: SENNOSIDES SYRUP 8.8 MG/5 ML CUP G-TUBE SCH ×2 (09:53→21:38)
[2017-02-14] MEDS: ASPIRIN 81 MG CHEW TAB NG SCH (09:53)
[2017-02-14] MEDS: FOLIC ACID 1 MG TAB OG-TUBE SCH (09:53)
[2017-02-14] MEDS: FUROSEMIDE 20 MG/2 ML VIAL IV PUSH SCH ×2 (09:53→21:38)
[2017-02-14] MEDS: ATORVASTATIN 40 MG TAB G-TUBE SCH (09:53)
[2017-02-14] MEDS: METOPROLOL TARTRATE 25 MG TAB G-TUBE SCH ×2 (09:53→21:37)
[2017-02-14] MEDS: SODIUM HYPOCHLORITE 0.25% 500 ML BTL TOPICAL SCH (09:54)
[2017-02-14] MEDS: COLLAGENASE OINT 30 GM TUBE TOPICAL SCH (09:54)
[2017-02-14 12:16] LABS: INTERNATIONAL NORMALIZED RATIO 1.5 RATIO; PROTHROMBIN TIME - PATIENT 16.7 SEC (9.8-11.6)
--- NOTE | 2017-02-14 15:57 | PD.CONS ---
History of Present Illness Service Wound Care/Plastics Consult Requested By Reason for Consult Sacral pressure ulcer Primary Care Physician Diagnoses: History of Present Illness This is a 66 year old female who was admitted on 11/04/16. She has a history of MoyaMoya disease and was brought it complaining of "difficulty getting her thoughts together." She was scheduled for extracranial intracranial bypass for multifocal nonhemorrhagic infarcts to the left frontal and parietal regions. Before surgery could be done, she had a siezure and was intubated and has since been found to have a new right frontal infarct. She is currently intubated. She opens eyes, but does not follow commands or track. Plastic surgery has been asked to evaluate the pressure ulcer of the sacrum/coccyx. Review of Systems ROS Limitations: Clinical Condition, Altered Mental Status Past Family Social History Allergies: Uncoded Allergies: YES, CAN'T REM. RELAXING MED. (Adverse Reaction, Intermediate, NECK TWISTS TO SIDE, 12/07/09) Past Medical History HTN CAD with NE COPD MoyaMoya Disease Past Surgical History None Active Ordered Medications Current Medications Medications (Trade) Dose Ordered Sig/Ora Route Start Time Stop Time Status Last Admin (Peridex 0.12% Liq) 15 ml BID@08,20 MT 11/18/16 08:00 02/14/17 09:50 (NS Flush) 2 ml BID IV FLUSH 11/18/16 09:00 02/14/17 09:53 (Morphine Inj) 2 mg Q2H PRN IV 11/18/16 03:30 01/16/17 08:23 (Zofran Inj) 4 mg Q6H PRN IV 11/18/16 03:30 11/26/16 03:20 Miscellaneous Information 1 Q361D XX 11/18/16 03:30 11/18/16 03:30 (Chlorhexidine 2% Cloth) Taper DAILY@04 TOP 11/18/16 04:00 11/14/17 03:59 01/17/17 04:00 (Chlorhexidine 2% Cloth) 3 pack UNSCH PRN TOP 11/18/16 03:30 (Aspirin Chew) 324 mg DAILY NG 11/18/16 09:00 02/14/17 09:53 (Parlodel) 2.5 mg Q12HR OG-TUBE 11/18/16 09:00 02/14/17 09:52 (Folate) 1 mg DAILY OG-TUBE 11/18/16 09:00 02/14/17 09:53 (Lopressor Inj) 5 mg Q6H PRN IV PUSH 11/23/16 22:45 01/12/17 03:20 (Dulcolax Supp) 10 mg DAILY PRN RECTAL 12/14/16 15:45 (Pepcid) 20 mg BID NG 12/21/16 21:00 02/14/17 09:52 (Keppra Liq) 1,500 mg Q12HR NG 12/21/16 21:00 02/14/17 09:52 (TEGretol LIQ) 200 mg Q12HR PEG 01/06/17 09:00 02/14/17 09:51 (Corby Powder) 1 pack BID G-TUBE 01/13/17 09:00 02/14/17 09:50 (Ferrous Sulfate Liq) 300 mg BID PEG 01/26/17 21:00 02/14/17 09:52 (Vitamin C) 500 mg BID PEG 01/26/17 21:00 02/14/17 09:53 (Free Water) 100 ml Q6HR G-TUBE 01/29/17 12:00 02/14/17 12:48 (Lopressor) 25 mg Q12HR G-TUBE 02/01/17 09:00 02/14/17 09:53 (Bristol 5-325 Mg) 1 tab Q4H PRN G-TUBE 02/01/17 11:30 (Tylenol) 650 mg Q6H PRN G-TUBE 02/01/17 09:30 (Lipitor) 40 mg DAILY G-TUBE 02/01/17 09:00 02/14/17 09:53 (Levsin Liq) 0.125 mg Q4H PRN G-TUBE 02/01/17 11:15 (Lactulose Liq) 45 ml TID G-TUBE 02/01/17 09:00 02/14/17 12:48 (Senna Liq) 8.8 mg BID G-TUBE 02/01/17 09:00 02/13/17 09:35 (D50w (Vial) Inj) 25 ml UNSCH PRN IV PUSH 02/01/17 09:15 Glucagon 1 mg 1 mg UNSCH PRN OTHER 02/01/17 09:15 (Coumadin Consult Pharmacy) 0 ml @ 0 mls/hr UNSCH OTHER 02/01/17 09:15 (Prinivil) 5 mg DAILY@1600 PO 02/03/17 16:00 02/13/17 18:39 (Santyl Oint) 1 applic DAILY TOPICAL 02/04/17 15:00 02/14/17 09:54 (Albumin 5% Inj) 12.5 gm Q12H IV 02/06/17 14:00 02/14/17 12:48 (Lasix Inj) 20 mg BID IV PUSH 02/06/17 14:00 02/14/17 09:53 (Coumadin) 7.5 mg DAILY@16 PO 02/07/17 16:00 02/13/17 18:38 (Mycostatin Liq) 5 ml QID SWISH-SWAL 02/08/17 18:00 02/14/17 12:48 (Dakin'S 0.25% Soln) USE DAILY WITH DRESS... DAILY TOPICAL 02/12/17 18:00 02/14/17 09:54 Family History Unable to obtain Social History Unable to obtain. Physical Exam Vital Signs Vital Signs Date Time Temp Pulse Resp B/P Pulse Ox O2 Delivery O2 Flow Rate FiO2 02/14/17 13:32 90 02/14/17 12:00 98.5 76 22 126/68 97 02/14/17 10:06 99 T-piece 6.00 28 02/14/17 10:06 99 T-piece 6.00 28 02/14/17 08:44 98.2 88 20 134/78 97 02/14/17 08:00 97 Blow By 28 T-Piece Humidified 02/14/17 04:00 97.0 87 22 121/80 95 02/14/17 00:00 96.5 80 22 114/71 99 02/13/17 21:50 Trach Collar 5.00 28 02/13/17 20:00 97.6 96 22 140/78 99 02/13/17 16:35 Trach Collar 5.00 28 02/13/17 16:35 82 02/13/17 16:20 97.6 88 20 139/78 99 Physical Exam GENERAL: This is a well-nourished, well-developed patient. She is lying in bed and unresponsive. SKIN: There is an open wound to the sacrum/coccyx area measuring approximately 3cm X 2cm X 3cm with circumferential undermining. Tissue in wound bed is mixed , with some black/brown necrotic tissue present. There are also 2 excoriations on the right buttock. There is no evidence of infection. HEAD: Atraumatic. Normocephalic. EYES: No scleral icterus. No injection or drainage. ENT: Nose without bleeding, purulent drainage. Trach in place. NECK: Trach in place. CARDIOVASCULAR: Regular rate and rhythm without murmurs, gallops, or rubs. RESPIRATORY: Trach on vent. NEUROLOGICAL: Patient unresponsive. Opens eyes but does not respond to voice or track. Laboratory Laboratory Tests Test 02/14/17 11:49 Prothrombin Time 16.7 Prothromb Time International 1.5 Ratio Albumin 2.8 Date/Time Procedure Status Source Growth 02/12/17 18:15 Urine Culture - Final Complete Urine Catheterized Urine Enterococcus Faecalis Result Diagram: 02/13/17 0553 02/13/17 0815 Assessment and Plan Problem List: (1) Pressure ulcer of sacral region, stage 4 Status: Acute Plan: Patient is not a candidate for surgical intervention at this time. Continue with Dakin's wet to dry dressings to the sacral wound, change BID. Apply povidone iodine ointment to excoriations of the right buttock and cover with border gauze or mepilex dressing. Protect periwound skin with barrier cream. Discussed with RN. Physician Attestation The exam, history, and the medical decision-making described in the above note were completed with the assistance of the mid-level provider. I reviewed and agree with the findings presented. I attest that I had a [id number] encounter with the patient on the same day, and personally performed and documented my assessment and findings in the medical record. Ermelinda Viera M.D. Yuliana Lopez Feb 14, 2017 15:57
[2017-02-14] MEDS: LISINOPRIL 5 MG TAB PO SCH (16:39)
[2017-02-14] MEDS: WARFARIN SOD 7.5 MG TAB PO SCH (16:39)
--- NOTE | 2017-02-14 17:53 | HHI.PR ---
Subjective Remarks Follow up on patient with bilateral frontal CVA, Moyamoya disease, seizure d/o, COPD, multilobar pneumonia and acute respiratory failure. Patient seen and examined.nt. Lying in bed on t-collar, O2 sats 100%.. Opens eyes intermittently. Does not track nor follow commands. Continued anasarca despite diuretics. Afebrile. VSS. Per RN (Katelin) no new acute changes overnight or since start of shift. RN reported infrequent Mahad-Suazo events. Objective Vitals Vital Signs Date Time Temp Pulse Resp B/P Pulse Ox O2 Delivery O2 Flow Rate FiO2 02/14/17 16:00 98.0 93 19 139/69 99 02/14/17 13:32 90 02/14/17 12:00 98.5 76 22 126/68 97 02/14/17 10:06 99 T-piece 6.00 28 02/14/17 10:06 99 T-piece 6.00 28 02/14/17 08:44 98.2 88 20 134/78 97 02/14/17 08:00 97 Blow By 28 T-Piece Humidified 02/14/17 04:00 97.0 87 22 121/80 95 02/14/17 00:00 96.5 80 22 114/71 99 02/13/17 21:50 Trach Collar 5.00 28 02/13/17 20:00 97.6 96 22 140/78 99 I/O 02/13/17 02/13/17 02/13/17 02/14/17 02/14/17 02/14/17 07:00 15:00 23:00 07:00 15:00 23:00 Intake Total 0 ml 1104 ml Output Total 450 ml 225 ml 300 ml Balance -450 ml 0 ml 879 ml -300 ml Intake Oral 0 ml Tube Feeding 1104 ml Output Urine Total 450 ml 225 ml 300 ml # Bowel Movements 0 1 Result Diagram: 02/13/17 0553 02/13/17 0815 Objective Remarks GENERAL: Pt encountered laying a bed, T-piece in place, eyes intermittently open /closed during visit, in NAD. SKIN: Warm and dry. Pitting edema noted along flanks and forearms. HEAD: Normocephalic. EYES: No scleral icterus. No injection or drainage. NECK: Supple, t-piece in place. CARDIOVASCULAR: Regular rate and rhythm without murmurs, gallops, or rubs. RESPIRATORY: Breath sounds equal bilaterally, without rhonchi or wheezes. On respirator. No episodes of Mahad-Suazo respirations noted during visit. GASTROINTESTINAL: Abdomen soft, non-tender. Distention noted. G-tube in place MUSCULOSKELETAL: No cyanosis, or edema. bilateral SCD's in place as were bilateral off loading boots. Neurological: Pt not responding to commands, no spontaneous movement observed Procedures PEG 11/24/2016 Percutaneous tracheostomy. 11/18/2016 Moderate encephalopathy with suggestion of left temporal region cortical irritability. No active seizures. Clinical correlation. Echocardiogram Severe dilated left ventricle. Wall thickness is normal. The left ventricular systolic function is moderately reduced with an estimated ejection fraction in the range of 35-40%. Doppler parameters are consistent with a restrictive left ventricular filling pattern indicative of decreased left ventricular diastolic compliance and increase left atrial pressure (grade 3 diastolic dysfunction). There is severe tricuspid regurgitation. There is severe pulmonary hypertension present ( > 70 mmHg). Severe mitral valve regurgitation. Urinary Catheter: Yes Assessment to: Continue Brown insert reason: Prolonged Immobilization Date of Insertion: Jan 29, 2017 A/P Problem List: (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 She was was admitted to [facility] emergency department 11/04/16 with difficulty getting her thoughts together. She was found to have multifocal nonhemorrhagic infarcts in left frontal and parietal regions, right frontal lobe and history of moyamoya disease. She was initially awake and following commands with weakness of RLE and some aphasia. She was transferred to [facility] where he had an cerebral angiogram consistent with moyamoya. There were plans to perform extracranial/intracranial bypass. However she had a seizure and ended up being intubated for status either 11/09 or .. She was found to have a new right frontal infarct area and she was started on Dilantin and Keppra and it was felt that she would not be a candidate for intervention. She has been intubated 9-10 days and apparently she has been tolerating C Pap trials to some extent but mental status prevents extubation. Treating team was discussing with family trach/PEG. Apparently family requested transfer back to [place] because they live locally here and wanted her closer to home. Patient remained under critical care medicine until 12/24/2016. Bilateral large frontal CVA Moyamoya Disease Seizure Disorder - Continue Keppra 1,500 mg q12h - Continue Tegretol 200 mg q12h - Follow for seizure activity - Continue aspirin - Continue Bromocriptine - Tegretol level WNL. Hyperammonemia: 70 --> 49 --> 56 --> 54. Continue Lactulose 45 ml PO TID. Positive BM several times a day. Systolic and diastolic heart failure, acute - Continue Lasix and MACKENZIE inhibitor. - Monitor electrolytes and renal function - BMP of 02/13/17 reviewed. Atrial Fibrillation, acute: Controlled. - INR 2.3. Follow daily INR. - Continue Coumadin. -INR noted to be low,[facility] pharmacy. Oral thrush: Nystatin swish and swallow QID. Requested RN to swab tongue since patient cannot swallow. Hyponatremia, resolved: Na 129 --> 134. Monitor. Continue hold of FWF for now. Hyperkalemia, resolved: K 5.5 --> 3.8. Anasarca: Continue Albumin 5% 12.5g q 12 hrs followed by Lasix 20 mg IV with Lasix being held for SBP less than 110. Will decrease medications when improvement seen. Still present. Follow clinically. Chronic Respiratory Failure Chronic obstructive pulmonary disease Multilobar pneumonia - Pulmonology following, appreciate input. - Continue tracheostomy with supplemental oxygen. - Tobramycin completed, course ended on 01/20/17. Dysphagia Hypoalbuminemia - PEG placed. Continue TF. - Jevity 1.5 through PEG tube with Corby supplementation. Tolerating well. Sacral/Coccyx wound - Continue specialty bed. - Wound care following, appreciate input. Last note with recommendations to pack wound daily with Santyl to sacrococcygeal wound. On right buttock, right ischium apply single layer Xeroform over open wound beds. Prep periwounds with Cavilon skin prep. Cover Xeroform with bordered gauze dressing. Change dressings EVERY OTHER DAY and PRN for dislodgement or soiling. Consults have been placed to general and plastic surgery. Surgical intervention does not appear to be an option. Wound care continues. GI Prophylaxis: Pepcid. DVT prophylaxis: SCDs. Coumadin. Discharge Planning Patient will need long-term care facility Trell Torres Jr. MADISYN Feb 14, 2017 17:52
--- NOTE | 2017-02-14 18:54 | HHI.PR ---
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 Has episodes of Cheyyne Suazo breathing Trach secretions thick DW RN at BS Objective Vital Signs Vital Signs Date Time Temp Pulse Resp B/P Pulse Ox O2 Delivery O2 Flow Rate FiO2 02/14/17 16:00 98.0 93 19 139/69 99 02/14/17 13:32 90 02/14/17 12:00 98.5 76 22 126/68 97 02/14/17 10:06 99 T-piece 6.00 28 02/14/17 10:06 99 T-piece 6.00 28 02/14/17 08:44 98.2 88 20 134/78 97 02/14/17 08:00 97 Blow By 28 T-Piece Humidified 02/14/17 04:00 97.0 87 22 121/80 95 02/14/17 00:00 96.5 80 22 114/71 99 02/13/17 21:50 Trach Collar 5.00 28 02/13/17 20:00 97.6 96 22 140/78 99 I/O 02/13/17 02/13/17 02/13/17 02/14/17 02/14/17 02/14/17 07:00 15:00 23:00 07:00 15:00 23:00 Intake Total 0 ml 1104 ml Output Total 450 ml 225 ml 300 ml Balance -450 ml 0 ml 879 ml -300 ml Intake Oral 0 ml Tube Feeding 1104 ml Output Urine Total 450 ml 225 ml 300 ml # Bowel Movements 0 1 2 Result Diagram: 02/13/17 0553 02/13/17 0815 Objective Remarks GENERAL: MBMN WF, on Trach collar SKIN: Warm and dry. HEAD: Normocephalic. EYES: No scleral icterus. No injection or drainage. NECK: Supple, trachea midline. No JVD or lymphadenopathy. has trach CARDIOVASCULAR: Regular rate and rhythm without murmurs, gallops, or rubs. RESPIRATORY: Breath sounds equal bilaterally. No accessory muscle use. GASTROINTESTINAL: Abdomen soft, non-tender, nondistended. has PEG MUSCULOSKELETAL: No cyanosis, or edema. BACK: Nontender without obvious deformity. No CVA tenderness. A/P Assessment and Plan RF, S/P Trach CVA Arango arango disease CAD COPD SZ disorder PLAN: Aerosol nebs Cont trach collar supplement 02 Trach suction prn. tolerates TF PARTHA RN at [facility] MD Feb 14, 2017 18:54
[2017-02-15] VITALS (8 sets, daily range): BP systolic 112–144; BP diastolic 55–87; PULSE 75–100; RESP 19–22; TEMP 95.7–98.4; O2SAT 99–100
[2017-02-15] MEDS: ALBUMIN HUMAN 5% 12.5 GM/250 ML BOTTLE IV SCH ×2 (02:24→14:06)
[2017-02-15] MEDS: CHLORHEXIDINE GLUCONATE 2 % 1 PACK (2 CLOTHS) TOP SCH (04:00)
[2017-02-15] MEDS: FREE WATER G-TUBE SCH ×5 (06:00→23:07)
[2017-02-15 08:02] LABS: INTERNATIONAL NORMALIZED RATIO 1.3 RATIO
[2017-02-15] MEDS: FOLIC ACID 1 MG TAB OG-TUBE SCH (08:44)
[2017-02-15] MEDS: LACTULOSE SYRUP 20 GM/30 ML CUP G-TUBE SCH ×3 (08:44→18:13)
[2017-02-15] MEDS: CHLORHEXIDINE 0.12% (ORAL KIT) 15 ML CUP MT SCH ×2 (08:44→22:55)
[2017-02-15] MEDS: ATORVASTATIN 40 MG TAB G-TUBE SCH (08:44)
[2017-02-15] MEDS: levETIRAcetam 500 MG/5 ML UDC NG SCH ×2 (08:44→22:54)
[2017-02-15] MEDS: BROMOCRIPTINE MESYLATE 2.5 MG TAB OG-TUBE SCH ×2 (08:44→23:07)
[2017-02-15] MEDS: FAMOTIDINE 20 MG TAB NG SCH ×2 (08:44→22:53)
[2017-02-15] MEDS: JUVEN POWDER 1 PACK G-TUBE SCH ×2 (08:44→22:55)
[2017-02-15] MEDS: FUROSEMIDE 20 MG/2 ML VIAL IV PUSH SCH ×2 (08:44→22:52)
[2017-02-15] MEDS: METOPROLOL TARTRATE 25 MG TAB G-TUBE SCH ×2 (08:45→22:55)
[2017-02-15] MEDS: NYSTATIN SUSP 500,000 U/5 ML CUP SWISH-SWAL SCH ×4 (08:45→22:56)
[2017-02-15] MEDS: COLLAGENASE OINT 30 GM TUBE TOPICAL SCH (08:45)
[2017-02-15] MEDS: FERROUS SULFATE 300 MG /5ML UDC PEG SCH ×2 (08:45→22:52)
[2017-02-15] MEDS: SODIUM HYPOCHLORITE 0.25% 500 ML BTL TOPICAL SCH (08:45)
[2017-02-15] MEDS: ASPIRIN 81 MG CHEW TAB NG SCH (08:45)
[2017-02-15] MEDS: POVIDONE IODINE 10% OINT 30 GM TUBE TOPICAL SCH (08:45)
[2017-02-15] MEDS: ASCORBIC ACID 500 MG TAB PEG SCH ×2 (08:45→22:53)
[2017-02-15] MEDS: carBAMazepine SUSP 200 MG/10 ML UDC PEG SCH ×2 (08:45→22:52)
[2017-02-15] MEDS: SENNOSIDES SYRUP 8.8 MG/5 ML CUP G-TUBE SCH ×2 (08:46→22:54)
[2017-02-15] MEDS: SODIUM CHLORIDE 0.9% FLUSH 10 ML FLUSH IV FLUSH SCH ×2 (08:46→22:54)
[2017-02-15] MEDS: HYOSCYAMINE SOLN 0.125 MG/ML 15 ML BTL G-TUBE PRN ×2 (12:57→23:06)
--- NOTE | 2017-02-15 15:17 | HHI.PR ---
Subjective Remarks Follow up on patient with bilateral frontal CVA, Moyamoya disease, seizure d/o, COPD, multilobar pneumonia and acute respiratory failure. Patient seen and examined.nt. Lying in bed on t-collar, O2 sats 95-97% with pulse of 75. Opens eyes intermittently. Does not track nor follow commands. Continued anasarca despite diuretics. Afebrile. VSS. Per RN (Katelin) no new acute changes overnight or since start of shift. RN reported secretions continue and pt has been suctioned at least twice since start of shift. RN reported Mahad-Suazo events seem to be decreasing. Objective Vitals Vital Signs Date Time Temp Pulse Resp B/P Pulse Ox O2 Delivery O2 Flow Rate FiO2 02/15/17 12:00 96.3 75 20 118/55 100 02/15/17 10:44 85 02/15/17 09:20 97 Blow By 28 T-Piece Humidified 02/15/17 09:05 100 T-piece 5.00 28 02/15/17 08:00 98.3 89 22 130/82 99 02/15/17 04:00 95.7 88 20 142/82 100 02/15/17 00:00 95.9 76 20 112/72 100 02/14/17 20:00 96.3 90 20 130/81 97 02/14/17 16:00 98.0 93 19 139/69 99 I/O 02/14/17 02/14/17 02/14/17 02/15/17 02/15/17 02/15/17 07:00 15:00 23:00 07:00 15:00 23:00 Intake Total 1104 ml 60 ml 315 ml Output Total 225 ml 300 ml 525 ml 150 ml Balance 879 ml -300 ml -525 ml -90 ml 315 ml Tube Feeding 1104 ml 60 ml 240 ml Tube Irrigant 75 ml Output Urine Total 225 ml 300 ml 525 ml 150 ml # Bowel Movements 1 2 Result Diagram: 02/13/17 0553 02/13/17 0815 Objective Remarks GENERAL: Pt encountered laying a bed, T-piece in place, eyes intermittently open /closed during visit, in NAD. SKIN: Warm and dry. Pitting edema noted along flanks and forearms. HEAD: Normocephalic. EYES: No scleral icterus. No injection or drainage. NECK: Supple, t-piece in place. CARDIOVASCULAR: Regular rate and rhythm without murmurs, gallops, or rubs. RESPIRATORY: Breath sounds equal bilaterally, without rhonchi or wheezes. On respirator. No episodes of Mahad-Suazo respirations noted during visit. GASTROINTESTINAL: Abdomen soft, non-tender. Distention noted. G-tube in place MUSCULOSKELETAL: No cyanosis. Bilateral SCD's in place as were bilateral off loading boots. Neurological: Pt not responding to commands, no spontaneous movement observed Procedures PEG 11/24/2016 Percutaneous tracheostomy. 11/18/2016 Moderate encephalopathy with suggestion of left temporal region cortical irritability. No active seizures. Clinical correlation. Echocardiogram Severe dilated left ventricle. Wall thickness is normal. The left ventricular systolic function is moderately reduced with an estimated ejection fraction in the range of 35-40%. Doppler parameters are consistent with a restrictive left ventricular filling pattern indicative of decreased left ventricular diastolic compliance and increase left atrial pressure (grade 3 diastolic dysfunction). There is severe tricuspid regurgitation. There is severe pulmonary hypertension present ( > 70 mmHg). Severe mitral valve regurgitation. Medications and IVs Current Medications Medications (Trade) Dose Ordered Sig/Ora Route Start Time Stop Time Status Last Admin (Peridex 0.12% Liq) 15 ml BID@08,20 MT 11/18/16 08:00 02/15/17 08:44 (NS Flush) 2 ml BID IV FLUSH 11/18/16 09:00 02/15/17 08:46 (Morphine Inj) 2 mg Q2H PRN IV 11/18/16 03:30 01/16/17 08:23 (Zofran Inj) 4 mg Q6H PRN IV 11/18/16 03:30 11/26/16 03:20 Miscellaneous Information 1 Q361D XX 11/18/16 03:30 11/18/16 03:30 (Chlorhexidine 2% Cloth) Taper DAILY@04 TOP 11/18/16 04:00 11/14/17 03:59 02/15/17 04:00 (Chlorhexidine 2% Cloth) 3 pack UNSCH PRN TOP 11/18/16 03:30 (Aspirin Chew) 324 mg DAILY NG 11/18/16 09:00 02/15/17 08:45 (Parlodel) 2.5 mg Q12HR OG-TUBE 11/18/16 09:00 02/15/17 08:44 (Folate) 1 mg DAILY OG-TUBE 11/18/16 09:00 02/15/17 08:44 (Lopressor Inj) 5 mg Q6H PRN IV PUSH 11/23/16 22:45 01/12/17 03:20 (Dulcolax Supp) 10 mg DAILY PRN RECTAL 12/14/16 15:45 (Pepcid) 20 mg BID NG 12/21/16 21:00 02/15/17 08:44 (Keppra Liq) 1,500 mg Q12HR NG 12/21/16 21:00 02/15/17 08:44 (TEGretol LIQ) 200 mg Q12HR PEG 01/06/17 09:00 02/15/17 08:45 (Corby Powder) 1 pack BID G-TUBE 01/13/17 09:00 02/15/17 08:44 (Ferrous Sulfate Liq) 300 mg BID PEG 01/26/17 21:00 02/15/17 08:45 (Vitamin C) 500 mg BID PEG 01/26/17 21:00 02/15/17 08:45 (Free Water) 100 ml Q6HR G-TUBE 01/29/17 12:00 02/15/17 12:57 (Lopressor) 25 mg Q12HR G-TUBE 02/01/17 09:00 02/15/17 08:45 ([place] 5-325 Mg) 1 tab Q4H PRN G-TUBE 02/01/17 11:30 (Tylenol) 650 mg Q6H PRN G-TUBE 02/01/17 09:30 (Lipitor) 40 mg DAILY G-TUBE 02/01/17 09:00 02/15/17 08:44 (Levsin Liq) 0.125 mg Q4H PRN G-TUBE 02/01/17 11:15 02/15/17 12:57 (Lactulose Liq) 45 ml TID G-TUBE 02/01/17 09:00 02/15/17 12:57 (Senna Liq) 8.8 mg BID G-TUBE 02/01/17 09:00 02/14/17 21:38 (D50w (Vial) Inj) 25 ml UNSCH PRN IV PUSH 02/01/17 09:15 Glucagon 1 mg 1 mg UNSCH PRN OTHER 02/01/17 09:15 (Coumadin Consult Pharmacy) 0 ml @ 0 mls/hr UNSCH OTHER 02/01/17 09:15 (Prinivil) 5 mg DAILY@1600 PO 02/03/17 16:00 02/14/17 16:39 (Santyl Oint) 1 applic DAILY TOPICAL 02/04/17 15:00 02/14/17 09:54 (Albumin 5% Inj) 12.5 gm Q12H IV 02/06/17 14:00 02/15/17 14:06 (Lasix Inj) 20 mg BID IV PUSH 02/06/17 14:00 02/15/17 08:44 (Coumadin) 7.5 mg DAILY@16 PO 02/07/17 16:00 02/14/17 16:39 (Mycostatin Liq) 5 ml QID SWISH-SWAL 02/08/17 18:00 02/15/17 12:57 (Dakin'S 0.25% Soln) USE DAILY WITH DRESS... DAILY TOPICAL 02/12/17 18:00 02/15/17 08:45 (Betadine 10% Oint) 1 applic DAILY TOPICAL 02/15/17 09:00 02/15/17 08:45 (Coumadin) 2.5 mg ONCE@1600 ONCE PO 02/15/17 16:00 02/15/17 16:01 Urinary Catheter: Yes Date of Insertion: Jan 29, 2017 A/P Problem List: (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 She was was admitted to [facility] emergency department 11/04/16 with difficulty getting her thoughts together. She was found to have multifocal nonhemorrhagic infarcts in left frontal and parietal regions, right frontal lobe and history of moyamoya disease. She was initially awake and following commands with weakness of RLE and some aphasia. She was transferred to [facility] where he had an cerebral angiogram consistent with moyamoya. There were plans to perform extracranial/intracranial bypass. However she had a seizure and ended up being intubated for status either 11/09 or 11/10.. She was found to have a new right frontal infarct area and she was started on Dilantin and Keppra and it was felt that she would not be a candidate for intervention. She has been intubated 9-10 days and apparently she has been tolerating C Pap trials to some extent but mental status prevents extubation. Treating team was discussing with family trach/PEG. Apparently family requested transfer back to [place] because they live locally here and wanted her closer to home. Patient remained under critical care medicine until 12/24/2016. Bilateral large frontal CVA Moyamoya Disease Seizure Disorder - Continue Keppra 1,500 mg q12h - Continue Tegretol 200 mg q12h - Follow for seizure activity - Continue aspirin - Continue Bromocriptine - Tegretol level WNL. Hyperammonemia: 70 --> 49 --> 56 --> 54. Continue Lactulose 45 ml PO TID. Positive BM several times a day. Systolic and diastolic heart failure, acute - Continue Lasix and MACKENZIE inhibitor. - Monitor electrolytes and renal function - BMP of 02/13/17 reviewed. Atrial Fibrillation, acute: Controlled. - INR 2.3. Follow daily INR. - Continue Coumadin. -INR noted to be low,consulted pharmacy. -INR again noted to be low, pt to receive increased dose of Coumadin today. Oral thrush: Nystatin swish and swallow QID. Requested RN to swab tongue since patient cannot swallow. Hyponatremia, resolved: Na 129 --> 134. Monitor. Continue hold of FWF for now. Hyperkalemia, resolved: K 5.5 --> 3.8. Anasarca: Continue Albumin 5% 12.5g q 12 hrs followed by Lasix 20 mg IV with Lasix being held for SBP less than 110. Will decrease medications when improvement seen. Still present. Follow clinically. Chronic Respiratory Failure Chronic obstructive pulmonary disease Multilobar pneumonia - Pulmonology following, appreciate input. - Continue tracheostomy with supplemental oxygen. - Tobramycin completed, course ended on 01/20/17. -Secretions reported to be present, Levsin is available. Dysphagia Hypoalbuminemia - PEG placed. Continue TF. - Jevity 1.5 through PEG tube with Corby supplementation. Tolerating well. Sacral/Coccyx wound - Continue specialty bed. - Wound care following, appreciate input. Last note with recommendations to pack wound daily with Santyl to sacrococcygeal wound. On right buttock, right ischium apply single layer Xeroform over open wound beds. Prep periwounds with Cavilon skin prep. Cover Xeroform with bordered gauze dressing. Change dressings EVERY OTHER DAY and PRN for dislodgement or soiling. Consults have been placed to general and plastic surgery. Surgical intervention does not appear to be an option. Wound care continues. GI Prophylaxis: Pepcid. DVT prophylaxis: SCDs. Coumadin. case discussed with RN (Katelin) and Discharge Planning Patient will need long-term care facility Trell Torres Jr. Feb 15, 2017 15:17
[2017-02-15] MEDS: LISINOPRIL 5 MG TAB PO SCH (15:19)
[2017-02-15] MEDS: WARFARIN SOD 7.5 MG TAB PO SCH (15:19)
[2017-02-15] MEDS ORDERED: WARFARIN SOD 2.5 MG TAB PO ONE (16:00)
[2017-02-15] MEDS: ENOXAPARIN SODIUM 100 MG/ML SYRINGE SQ SCH (18:13)
--- NOTE | 2017-02-15 20:25 | HHI.PR ---
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 Has episodes of Cheyyne Suazo breathing Trach secretions thick Objective Vital Signs Vital Signs Date Time Temp Pulse Resp B/P Pulse Ox O2 Delivery O2 Flow Rate FiO2 02/15/17 20:12 97.8 100 19 144/87 99 02/15/17 16:00 98.4 92 20 141/70 99 02/15/17 12:00 96.3 75 20 118/55 100 02/15/17 10:44 85 02/15/17 09:20 97 Blow By 28 T-Piece Humidified 02/15/17 09:05 100 T-piece 5.00 28 02/15/17 08:00 98.3 89 22 130/82 99 02/15/17 04:00 95.7 88 20 142/82 100 02/15/17 00:00 95.9 76 20 112/72 100 I/O 02/14/17 02/14/17 02/14/17 02/15/17 02/15/17 02/15/17 07:00 15:00 23:00 07:00 15:00 23:00 Intake Total 1104 ml 60 ml 730 ml Output Total 225 ml 300 ml 525 ml 150 ml Balance 879 ml -300 ml -525 ml -90 ml 730 ml Tube Feeding 1104 ml 60 ml 480 ml Tube Irrigant 150 ml Other 100 ml Output Urine Total 225 ml 300 ml 525 ml 150 ml # Bowel Movements 1 2 1 Result Diagram: 02/13/17 0553 02/13/17 0815 Objective Remarks GENERAL: MBMN WF, on Trach collar SKIN: Warm and dry. HEAD: Normocephalic. EYES: No scleral icterus. No injection or drainage. NECK: Supple, trachea midline. No JVD or lymphadenopathy. has trach CARDIOVASCULAR: Regular rate and rhythm without murmurs, gallops, or rubs. RESPIRATORY: Breath sounds equal bilaterally. No accessory muscle use. GASTROINTESTINAL: Abdomen soft, non-tender, nondistended. has PEG MUSCULOSKELETAL: No cyanosis, or edema. BACK: Nontender without obvious deformity. No CVA tenderness. A/P Assessment and Plan RF, S/P Trach CVA Arango arango disease CAD COPD SZ disorder PLAN: Aerosol nebs Cont trach collar supplement 02 Trach suction prn. tolerates TF DW RN at [facility] MD Feb 15, 2017 20:25
[2017-02-16] VITALS (10 sets, daily range): BP systolic 126–165; BP diastolic 67–95; PULSE 78–93; RESP 19–22; TEMP 96.2–98.1; O2SAT 93–100
[2017-02-16] MEDS: ALBUMIN HUMAN 5% 12.5 GM/250 ML BOTTLE IV SCH ×2 (02:18→16:51)
[2017-02-16] MEDS: CHLORHEXIDINE GLUCONATE 2 % 1 PACK (2 CLOTHS) TOP SCH (04:00)
[2017-02-16] MEDS: ENOXAPARIN SODIUM 100 MG/ML SYRINGE SQ SCH ×2 (06:14→16:50)
[2017-02-16] MEDS: FREE WATER G-TUBE SCH ×4 (06:15→23:11)
[2017-02-16] MEDS: JUVEN POWDER 1 PACK G-TUBE SCH ×2 (09:00→23:09)
[2017-02-16] MEDS: SODIUM HYPOCHLORITE 0.25% 500 ML BTL TOPICAL SCH (09:00)
[2017-02-16] MEDS: SENNOSIDES SYRUP 8.8 MG/5 ML CUP G-TUBE SCH ×2 (09:00→23:09)
[2017-02-16] MEDS: POVIDONE IODINE 10% OINT 30 GM TUBE TOPICAL SCH (09:00)
[2017-02-16] MEDS: COLLAGENASE OINT 30 GM TUBE TOPICAL SCH (09:00)
[2017-02-16] MEDS: NYSTATIN SUSP 500,000 U/5 ML CUP SWISH-SWAL SCH ×4 (09:50→23:05)
[2017-02-16] MEDS: FERROUS SULFATE 300 MG /5ML UDC PEG SCH ×2 (09:50→23:05)
[2017-02-16] MEDS: LACTULOSE SYRUP 20 GM/30 ML CUP G-TUBE SCH ×3 (09:50→18:00)
[2017-02-16] MEDS: levETIRAcetam 500 MG/5 ML UDC NG SCH ×2 (09:50→23:05)
[2017-02-16] MEDS: METOPROLOL TARTRATE 25 MG TAB G-TUBE SCH ×2 (09:51→23:06)
[2017-02-16] MEDS: BROMOCRIPTINE MESYLATE 2.5 MG TAB OG-TUBE SCH ×2 (09:51→23:05)
[2017-02-16] MEDS: FOLIC ACID 1 MG TAB OG-TUBE SCH (09:51)
[2017-02-16] MEDS: ATORVASTATIN 40 MG TAB G-TUBE SCH (09:51)
[2017-02-16] MEDS: ASCORBIC ACID 500 MG TAB PEG SCH ×2 (09:51→23:06)
[2017-02-16] MEDS: ASPIRIN 81 MG CHEW TAB NG SCH (09:52)
[2017-02-16] MEDS: FUROSEMIDE 20 MG/2 ML VIAL IV PUSH SCH ×2 (09:52→23:11)
[2017-02-16] MEDS: FAMOTIDINE 20 MG TAB NG SCH ×2 (09:52→23:06)
[2017-02-16] MEDS: carBAMazepine SUSP 200 MG/10 ML UDC PEG SCH ×2 (09:55→23:05)
[2017-02-16] MEDS: HYOSCYAMINE SOLN 0.125 MG/ML 15 ML BTL G-TUBE PRN (10:05)
[2017-02-16] MEDS: CHLORHEXIDINE 0.12% (ORAL KIT) 15 ML CUP MT SCH ×2 (10:10→23:10)
[2017-02-16] MEDS: SODIUM CHLORIDE 0.9% FLUSH 10 ML FLUSH IV FLUSH SCH ×2 (10:17→23:10)
[2017-02-16 10:39] LABS: INTERNATIONAL NORMALIZED RATIO 1.6 RATIO; PROTHROMBIN TIME - PATIENT 18.6 SEC (9.8-11.6)
--- NOTE | 2017-02-16 13:48 | HHI.PR ---
Subjective Remarks Follow up on patient with bilateral frontal CVA, Moyamoya disease, seizure d/o, COPD, multilobar pneumonia and acute respiratory failure. Patient seen and examined.nt. Lying in bed on t-collar. Opens eyes intermittently. Does not track nor follow commands. Continued anasarca despite diuretics. Afebrile. VSS. Per RN (Vitaly) no new acute changes overnight or since start of shift. RN reported secretions continue and reviewed Levsin was available to treat. Objective Vitals Vital Signs Date Time Temp Pulse Resp B/P Pulse Ox O2 Delivery O2 Flow Rate FiO2 02/16/17 12:06 96.2 82 22 126/80 100 02/16/17 10:15 99 T-piece 5.00 28 02/16/17 08:02 96.3 81 20 145/85 100 02/16/17 05:33 100 T-piece 28 02/16/17 05:11 97.8 78 19 153/67 97 02/16/17 04:13 82 02/16/17 00:28 98.1 85 19 155/76 93 02/16/17 00:00 95 Blow By 28 T-Piece Humidified 02/15/17 20:12 97.8 100 19 144/87 99 02/15/17 16:00 98.4 92 20 141/70 99 I/O 02/15/17 02/15/17 02/15/17 02/16/17 02/16/17 02/16/17 07:00 15:00 23:00 07:00 15:00 23:00 Intake Total 60 ml 730 ml 920 ml Output Total 150 ml 700 ml Balance -90 ml 730 ml 220 ml Tube Feeding 60 ml 480 ml 720 ml Tube Irrigant 150 ml Other 100 ml 200 ml Output Urine Total 150 ml 700 ml # Bowel Movements 1 1 Result Diagram: 02/13/17 0553 02/13/17 0815 Objective Remarks GENERAL: Pt encountered laying a bed, T-piece in place, eyes mostly closed during visit, in NAD. SKIN: Warm and dry. Pitting edema noted along flanks and forearms. HEAD: Normocephalic. EYES: No scleral icterus. No injection or drainage. NECK: Supple, t-piece in place. CARDIOVASCULAR: Regular rate and rhythm without murmurs, gallops, or rubs. RESPIRATORY: Breath sounds equal bilaterally, without rhonchi or wheezes. On respirator. Several episodes of Mahad-Suazo respirations noted during visit. GASTROINTESTINAL: Abdomen soft, non-tender. Distention noted. G-tube in place MUSCULOSKELETAL: No cyanosis. Bilateral SCD's in place as were bilateral off loading boots. Neurological: Pt not responding to commands, no spontaneous movement observed Procedures PEG 11/24/2016 Percutaneous tracheostomy. 11/18/2016 Moderate encephalopathy with suggestion of left temporal region cortical irritability. No active seizures. Clinical correlation. Echocardiogram Severe dilated left ventricle. Wall thickness is normal. The left ventricular systolic function is moderately reduced with an estimated ejection fraction in the range of 35-40%. Doppler parameters are consistent with a restrictive left ventricular filling pattern indicative of decreased left ventricular diastolic compliance and increase left atrial pressure (grade 3 diastolic dysfunction). There is severe tricuspid regurgitation. There is severe pulmonary hypertension present ( > 70 mmHg). Severe mitral valve regurgitation. Medications and IVs Current Medications Medications (Trade) Dose Ordered Sig/Ora Route Start Time Stop Time Status Last Admin (Peridex 0.12% Liq) 15 ml BID@08,20 MT 11/18/16 08:00 02/16/17 10:10 (NS Flush) 2 ml BID IV FLUSH 11/18/16 09:00 02/16/17 10:17 (Morphine Inj) 2 mg Q2H PRN IV 11/18/16 03:30 01/16/17 08:23 (Zofran Inj) 4 mg Q6H PRN IV 11/18/16 03:30 11/26/16 03:20 Miscellaneous Information 1 Q361D XX 11/18/16 03:30 11/18/16 03:30 (Chlorhexidine 2% Cloth) Taper DAILY@04 TOP 11/18/16 04:00 11/14/17 03:59 02/15/17 04:00 (Chlorhexidine 2% Cloth) 3 pack UNSCH PRN TOP 11/18/16 03:30 (Aspirin Chew) 324 mg DAILY NG 11/18/16 09:00 02/16/17 09:52 (Parlodel) 2.5 mg Q12HR OG-TUBE 11/18/16 09:00 02/16/17 09:51 (Folate) 1 mg DAILY OG-TUBE 11/18/16 09:00 02/16/17 09:51 (Lopressor Inj) 5 mg Q6H PRN IV PUSH 11/23/16 22:45 01/12/17 03:20 (Dulcolax Supp) 10 mg DAILY PRN RECTAL 12/14/16 15:45 (Pepcid) 20 mg BID NG 12/21/16 21:00 02/16/17 09:52 (Keppra Liq) 1,500 mg Q12HR NG 12/21/16 21:00 02/16/17 09:50 (TEGretol LIQ) 200 mg Q12HR PEG 01/06/17 09:00 02/16/17 09:55 (Corby Powder) 1 pack BID G-TUBE 01/13/17 09:00 02/16/17 09:00 (Ferrous Sulfate Liq) 300 mg BID PEG 01/26/17 21:00 02/16/17 09:50 (Vitamin C) 500 mg BID PEG 01/26/17 21:00 02/16/17 09:51 (Free Water) 100 ml Q6HR G-TUBE 01/29/17 12:00 02/16/17 12:00 (Lopressor) 25 mg Q12HR G-TUBE 02/01/17 09:00 02/16/17 09:51 ([place] 5-325 Mg) 1 tab Q4H PRN G-TUBE 02/01/17 11:30 (Tylenol) 650 mg Q6H PRN G-TUBE 02/01/17 09:30 (Lipitor) 40 mg DAILY G-TUBE 02/01/17 09:00 02/16/17 09:51 (Levsin Liq) 0.125 mg Q4H PRN G-TUBE 02/01/17 11:15 02/16/17 10:05 (Lactulose Liq) 45 ml TID G-TUBE 02/01/17 09:00 02/16/17 13:04 (Senna Liq) 8.8 mg BID G-TUBE 02/01/17 09:00 02/16/17 09:00 (D50w (Vial) Inj) 25 ml UNSCH PRN IV PUSH 02/01/17 09:15 Glucagon 1 mg 1 mg UNSCH PRN OTHER 02/01/17 09:15 (Coumadin Consult Pharmacy) 0 ml @ 0 mls/hr UNSCH OTHER 02/01/17 09:15 (Prinivil) 5 mg DAILY@1600 PO 02/03/17 16:00 02/15/17 15:19 (Santyl Oint) 1 applic DAILY TOPICAL 02/04/17 15:00 02/14/17 09:54 (Albumin 5% Inj) 12.5 gm Q12H IV 02/06/17 14:00 02/16/17 02:18 (Lasix Inj) 20 mg BID IV PUSH 02/06/17 14:00 02/16/17 09:52 (Coumadin) 7.5 mg DAILY@16 PO 02/07/17 16:00 02/15/17 15:19 (Mycostatin Liq) 5 ml QID SWISH-SWAL 02/08/17 18:00 02/16/17 13:04 (Dakin'S 0.25% Soln) USE DAILY WITH DRESS... DAILY TOPICAL 02/12/17 18:00 02/15/17 08:45 (Betadine 10% Oint) 1 applic DAILY TOPICAL 02/15/17 09:00 02/15/17 08:45 (Lovenox Inj) 100 mg Q12H SQ 02/15/17 16:30 02/16/17 06:14 Urinary Catheter: Yes Date of Insertion: Jan 29, 2017 A/P Problem List: (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 She was was admitted to [facility] emergency department 11/04/16 with difficulty getting her thoughts together. She was found to have multifocal nonhemorrhagic infarcts in left frontal and parietal regions, right frontal lobe and history of moyamoya disease. She was initially awake and following commands with weakness of RLE and some aphasia. She was transferred to [facility] where he had an cerebral angiogram consistent with moyamoya. There were plans to perform extracranial/intracranial bypass. However she had a seizure and ended up being intubated for status either 11/09 or 11/10.. She was found to have a new right frontal infarct area and she was started on Dilantin and Keppra and it was felt that she would not be a candidate for intervention. She has been intubated 9-10 days and apparently she has been tolerating C Pap trials to some extent but mental status prevents extubation. Treating team was discussing with family trach/PEG. Apparently family requested transfer back to [place] because they live locally here and wanted her closer to home. Patient remained under critical care medicine until 12/24/2016. Bilateral large frontal CVA Moyamoya Disease Seizure Disorder - Continue Keppra 1,500 mg q12h - Continue Tegretol 200 mg q12h - Follow for seizure activity - Continue aspirin - Continue Bromocriptine - Tegretol level WNL. Hyperammonemia: 70 --> 49 --> 56 --> 54. Continue Lactulose 45 ml PO TID. Positive BM several times a day. Systolic and diastolic heart failure, acute - Continue Lasix and MACKENZIE inhibitor. - Monitor electrolytes and renal function - BMP of 02/13/17 reviewed. Atrial Fibrillation, acute: Controlled. - INR 2.3. Follow daily INR. - Continue Coumadin. -INR noted to be low,consulted pharmacy. -INR again noted to be low, Dr. Packer initiated Lovenox coverage and Coumadin was discontinued (02/15/17) Oral thrush: Nystatin swish and swallow QID. Requested RN to swab tongue since patient cannot swallow. Hyponatremia, resolved: Na 129 --> 134. Monitor. Continue hold of FWF for now. Hyperkalemia, resolved: K 5.5 --> 3.8. Anasarca: Continue Albumin 5% 12.5g q 12 hrs followed by Lasix 20 mg IV with Lasix being held for SBP less than 110. Will decrease medications when improvement seen. Still present. Follow clinically. Chronic Respiratory Failure Chronic obstructive pulmonary disease Multilobar pneumonia - Pulmonology following, appreciate input. - Continue tracheostomy with supplemental oxygen. - Tobramycin completed, course ended on 01/20/17. -Secretions reported to be present, Levsin is available. Dysphagia Hypoalbuminemia - PEG placed. Continue TF. - Jevity 1.5 through PEG tube with Corby supplementation. Tolerating well. Sacral/Coccyx wound - Continue specialty bed. - Wound care following, appreciate input. Last note with recommendations to pack wound daily with Santyl to sacrococcygeal wound. On right buttock, right ischium apply single layer Xeroform over open wound beds. Prep periwounds with Cavilon skin prep. Cover Xeroform with bordered gauze dressing. Change dressings EVERY OTHER DAY and PRN for dislodgement or soiling. Consults have been placed to general and plastic surgery. Surgical intervention does not appear to be an option. Wound care continues. GI Prophylaxis: Pepcid. DVT prophylaxis: SCDs. Lovenox case discussed with RN (Vitaly) and Dr. Yuan Discharge Planning Patient will need long-term care facility Trell Torres Jr. Feb 16, 2017 13:48
[2017-02-16] MEDS ORDERED: WARFARIN SOD 2.5 MG TAB PO ONE (16:00)
[2017-02-16] MEDS: LISINOPRIL 5 MG TAB PO SCH (16:50)
[2017-02-16] MEDS: WARFARIN SOD 7.5 MG TAB PO SCH (16:51)
--- NOTE | 2017-02-16 17:14 | HHI.PR ---
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 Has episodes of Cheyyne Suazo breathing Trach secretions thick DW RN, no new complaint Objective Vital Signs Vital Signs Date Time Temp Pulse Resp B/P Pulse Ox O2 Delivery O2 Flow Rate FiO2 02/16/17 16:13 96.4 85 20 154/80 98 02/16/17 12:06 96.2 82 22 126/80 100 02/16/17 10:15 99 T-piece 5.00 28 02/16/17 08:02 96.3 81 20 145/85 100 02/16/17 05:33 100 T-piece 28 02/16/17 05:11 97.8 78 19 153/67 97 02/16/17 04:13 82 02/16/17 00:28 98.1 85 19 155/76 93 02/16/17 00:00 95 Blow By 28 T-Piece Humidified 02/15/17 20:12 97.8 100 19 144/87 99 I/O 02/15/17 02/15/17 02/15/17 02/16/17 02/16/17 02/16/17 07:00 15:00 23:00 07:00 15:00 23:00 Intake Total 60 ml 730 ml 920 ml Output Total 150 ml 700 ml 400 ml Balance -90 ml 730 ml 220 ml -400 ml Tube Feeding 60 ml 480 ml 720 ml Tube Irrigant 150 ml Other 100 ml 200 ml Output Urine Total 150 ml 700 ml 400 ml # Bowel Movements 1 1 Result Diagram: 02/13/17 0553 02/13/17 0815 Objective Remarks GENERAL: MBMN WF, on Trach collar SKIN: Warm and dry. HEAD: Normocephalic. EYES: No scleral icterus. No injection or drainage. NECK: Supple, trachea midline. No JVD or lymphadenopathy. has trach CARDIOVASCULAR: Regular rate and rhythm without murmurs, gallops, or rubs. RESPIRATORY: Breath sounds equal bilaterally. No accessory muscle use. GASTROINTESTINAL: Abdomen soft, non-tender, nondistended. has PEG MUSCULOSKELETAL: No cyanosis, or edema. BACK: Nontender without obvious deformity. No CVA tenderness. A/P Assessment and Plan RF, S/P Trach CVA Arango arango disease CAD COPD SZ disorder PLAN: Aerosol nebs Cont trach collar supplement 02 Trach suction prn. tolerates TF PARTHA RN at [facility] Marx MD Feb 16, 2017 17:14
[2017-02-17] VITALS (10 sets, daily range): BP systolic 118–155; BP diastolic 74–86; PULSE 81–96; RESP 18–22; TEMP 95.2–97.6; O2SAT 96–100
[2017-02-17] MEDS: ALBUMIN HUMAN 5% 12.5 GM/250 ML BOTTLE IV SCH ×2 (03:31→14:32)
[2017-02-17] MEDS: CHLORHEXIDINE GLUCONATE 2 % 1 PACK (2 CLOTHS) TOP SCH (03:32)
[2017-02-17] MEDS: ENOXAPARIN SODIUM 100 MG/ML SYRINGE SQ SCH ×2 (03:32→18:00)
[2017-02-17] MEDS: FREE WATER G-TUBE SCH ×3 (03:59→18:00)
[2017-02-17] MEDS: carBAMazepine SUSP 200 MG/10 ML UDC PEG SCH ×2 (08:02→22:02)
[2017-02-17] MEDS: levETIRAcetam 500 MG/5 ML UDC NG SCH ×2 (08:02→22:02)
[2017-02-17] MEDS: ASCORBIC ACID 500 MG TAB PEG SCH ×2 (08:03→22:01)
[2017-02-17] MEDS: BROMOCRIPTINE MESYLATE 2.5 MG TAB OG-TUBE SCH ×2 (08:03→21:00)
[2017-02-17] MEDS: METOPROLOL TARTRATE 25 MG TAB G-TUBE SCH ×2 (08:03→22:00)
[2017-02-17] MEDS: FOLIC ACID 1 MG TAB OG-TUBE SCH (08:03)
[2017-02-17] MEDS: ATORVASTATIN 40 MG TAB G-TUBE SCH (08:03)
[2017-02-17] MEDS: FUROSEMIDE 20 MG/2 ML VIAL IV PUSH SCH ×2 (08:03→22:01)
[2017-02-17] MEDS: FAMOTIDINE 20 MG TAB NG SCH ×2 (08:03→22:01)
[2017-02-17] MEDS: ASPIRIN 81 MG CHEW TAB NG SCH (08:04)
[2017-02-17] MEDS: LACTULOSE SYRUP 20 GM/30 ML CUP G-TUBE SCH ×3 (08:04→18:00)
[2017-02-17] MEDS: FERROUS SULFATE 300 MG /5ML UDC PEG SCH ×2 (08:04→22:02)
[2017-02-17] MEDS: SODIUM CHLORIDE 0.9% FLUSH 10 ML FLUSH IV FLUSH SCH ×2 (08:09→22:01)
[2017-02-17] MEDS: JUVEN POWDER 1 PACK G-TUBE SCH ×2 (08:23→22:00)
[2017-02-17] MEDS: NYSTATIN SUSP 500,000 U/5 ML CUP SWISH-SWAL SCH ×4 (08:32→21:00)
[2017-02-17] MEDS: CHLORHEXIDINE 0.12% (ORAL KIT) 15 ML CUP MT SCH ×2 (08:32→22:00)
[2017-02-17] MEDS: COLLAGENASE OINT 30 GM TUBE TOPICAL SCH (09:00)
[2017-02-17] MEDS: SENNOSIDES SYRUP 8.8 MG/5 ML CUP G-TUBE SCH ×2 (09:00→22:02)
[2017-02-17 12:27] LABS: INTERNATIONAL NORMALIZED RATIO 2.1 RATIO; PROTHROMBIN TIME - PATIENT 23.6 SEC (9.8-11.6)
--- NOTE | 2017-02-17 14:04 | HHI.PR ---
Subjective Remarks Follow up on patient with bilateral frontal CVA, Moyamoya disease, seizure d/o, COPD, multilobar pneumonia and acute respiratory failure. Patient seen and examined.nt. Lying in bed on t-collar. Opens eyes intermittently. Does not track nor follow commands. Continued anasarca despite diuretics. Afebrile. VSS. Oxygen saturation noted to be 99% and pulse was 84 per bedside monitor. Per RN (Vitaly) no new acute changes overnight or since start of shift. RN reported secretions continue and reviewed Levsin was available to treat.Rn stated he had suctioned pt three times since start of shift. Rn reported wheezing yet improved breathing with repositioning pt. Objective Vitals Vital Signs Date Time Temp Pulse Resp B/P Pulse Ox O2 Delivery O2 Flow Rate FiO2 02/17/17 12:05 95.2 82 22 125/74 99 02/17/17 09:29 96 T-piece 6.00 28 02/17/17 08:10 96.9 89 22 147/77 100 02/17/17 04:00 95.6 88 18 123/81 98 02/17/17 04:00 95.6 88 18 123/81 98 02/17/17 01:00 95 Blow By 28 T-Piece Humidified 02/17/17 00:00 96.1 87 20 130/86 99 02/16/17 20:00 97.2 93 20 165/95 97 02/16/17 20:00 90 02/16/17 19:52 98 T-piece 28 02/16/17 16:13 96.4 85 20 154/80 98 I/O 02/16/17 02/16/17 02/16/17 02/17/17 02/17/17 02/17/17 07:00 15:00 23:00 07:00 15:00 23:00 Intake Total 920 ml 1170 ml Output Total 700 ml 400 ml 500 ml Balance 220 ml -400 ml 1170 ml -500 ml IV Total 250 ml Tube Feeding 720 ml 720 ml Other 200 ml 200 ml Output Urine Total 700 ml 400 ml 500 ml # Bowel Movements 1 1 Result Diagram: 02/13/17 0553 02/13/17 0815 Objective Remarks GENERAL: Pt encountered laying a bed, T-piece in place, eyes mostly closed throughout visit, in NAD. SKIN: Warm and dry. Pitting edema noted along flanks and forearms. HEAD: Normocephalic. EYES: No scleral icterus. No injection or drainage. As pt's eyes were closed for the entirety of visit, eye lids were manually opened in order to inspect them. NECK: Supple, t-piece in place. CARDIOVASCULAR: Regular rate and rhythm without murmurs, gallops, or rubs. RESPIRATORY: Breath sounds equal bilaterally, without rhonchi or wheezes. On respirator. Several episodes of Mahad-Suazo respirations noted during visit. GASTROINTESTINAL: Abdomen soft, non-tender. Distention noted. G-tube in place MUSCULOSKELETAL: No cyanosis. Bilateral SCD's in place as were bilateral off loading boots. Neurological: Pt not responding to commands, no spontaneous movement observed Procedures PEG 11/24/2016 Percutaneous tracheostomy. 11/18/2016 Moderate encephalopathy with suggestion of left temporal region cortical irritability. No active seizures. Clinical correlation. Echocardiogram Severe dilated left ventricle. Wall thickness is normal. The left ventricular systolic function is moderately reduced with an estimated ejection fraction in the range of 35-40%. Doppler parameters are consistent with a restrictive left ventricular filling pattern indicative of decreased left ventricular diastolic compliance and increase left atrial pressure (grade 3 diastolic dysfunction). There is severe tricuspid regurgitation. There is severe pulmonary hypertension present ( > 70 mmHg). Severe mitral valve regurgitation. Medications and IVs Current Medications Medications (Trade) Dose Ordered Sig/Ora Route Start Time Stop Time Status Last Admin (Peridex 0.12% Liq) 15 ml BID@08,20 MT 11/18/16 08:00 02/17/17 08:32 (NS Flush) 2 ml BID IV FLUSH 11/18/16 09:00 02/17/17 08:09 (Morphine Inj) 2 mg Q2H PRN IV 11/18/16 03:30 01/16/17 08:23 (Zofran Inj) 4 mg Q6H PRN IV 11/18/16 03:30 11/26/16 03:20 Miscellaneous Information 1 Q361D XX 11/18/16 03:30 11/18/16 03:30 (Chlorhexidine 2% Cloth) Taper DAILY@04 TOP 11/18/16 04:00 11/14/17 03:59 02/15/17 04:00 (Chlorhexidine 2% Cloth) 3 pack UNSCH PRN TOP 11/18/16 03:30 (Aspirin Chew) 324 mg DAILY NG 11/18/16 09:00 02/17/17 08:04 (Parlodel) 2.5 mg Q12HR OG-TUBE 11/18/16 09:00 02/17/17 08:03 (Folate) 1 mg DAILY OG-TUBE 11/18/16 09:00 02/17/17 08:03 (Lopressor Inj) 5 mg Q6H PRN IV PUSH 11/23/16 22:45 01/12/17 03:20 (Dulcolax Supp) 10 mg DAILY PRN RECTAL 12/14/16 15:45 (Pepcid) 20 mg BID NG 12/21/16 21:00 02/17/17 08:03 (Keppra Liq) 1,500 mg Q12HR NG 12/21/16 21:00 02/17/17 08:02 (TEGretol LIQ) 200 mg Q12HR PEG 01/06/17 09:00 02/17/17 08:02 (Corby Powder) 1 pack BID G-TUBE 01/13/17 09:00 02/17/17 08:23 (Ferrous Sulfate Liq) 300 mg BID PEG 01/26/17 21:00 02/17/17 08:04 (Vitamin C) 500 mg BID PEG 01/26/17 21:00 02/17/17 08:03 (Free Water) 100 ml Q6HR G-TUBE 01/29/17 12:00 02/17/17 03:59 (Lopressor) 25 mg Q12HR G-TUBE 02/01/17 09:00 02/17/17 08:03 ([place] 5-325 Mg) 1 tab Q4H PRN G-TUBE 02/01/17 11:30 (Tylenol) 650 mg Q6H PRN G-TUBE 02/01/17 09:30 (Lipitor) 40 mg DAILY G-TUBE 02/01/17 09:00 02/17/17 08:03 (Levsin Liq) 0.125 mg Q4H PRN G-TUBE 02/01/17 11:15 02/16/17 10:05 (Lactulose Liq) 45 ml TID G-TUBE 02/01/17 09:00 02/17/17 08:04 (Senna Liq) 8.8 mg BID G-TUBE 02/01/17 09:00 02/16/17 23:09 (D50w (Vial) Inj) 25 ml UNSCH PRN IV PUSH 02/01/17 09:15 Glucagon 1 mg 1 mg UNSCH PRN OTHER 02/01/17 09:15 (Coumadin Consult Pharmacy) 0 ml @ 0 mls/hr UNSCH OTHER 02/01/17 09:15 (Prinivil) 5 mg DAILY@1600 PO 02/03/17 16:00 02/16/17 16:50 (Santyl Oint) 1 applic DAILY TOPICAL 02/04/17 15:00 02/14/17 09:54 (Albumin 5% Inj) 12.5 gm Q12H IV 02/06/17 14:00 02/17/17 03:31 (Lasix Inj) 20 mg BID IV PUSH 02/06/17 14:00 02/17/17 08:03 (Coumadin) 7.5 mg DAILY@16 PO 02/07/17 16:00 02/16/17 16:51 (Mycostatin Liq) 5 ml QID SWISH-SWAL 02/08/17 18:00 02/17/17 08:32 (Dakin'S 0.25% Soln) USE DAILY WITH DRESS... DAILY TOPICAL 02/12/17 18:00 02/15/17 08:45 (Betadine 10% Oint) 1 applic DAILY TOPICAL 02/15/17 09:00 02/15/17 08:45 (Lovenox Inj) 100 mg Q12H SQ 02/15/17 16:30 02/17/17 03:32 Urinary Catheter: Yes Date of Insertion: Jan 29, 2017 A/P Problem List: (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 She was was admitted to [facility] emergency department 11/04/16 with difficulty getting her thoughts together. She was found to have multifocal nonhemorrhagic infarcts in left frontal and parietal regions, right frontal lobe and history of moyamoya disease. She was initially awake and following commands with weakness of RLE and some aphasia. She was transferred to [facility] where he had an cerebral angiogram consistent with moyamoya. There were plans to perform extracranial/intracranial bypass. However she had a seizure and ended up being intubated for status either 11/09 or 11/10.. She was found to have a new right frontal infarct area and she was started on Dilantin and Keppra and it was felt that she would not be a candidate for intervention. She has been intubated 9-10 days and apparently she has been tolerating C Pap trials to some extent but mental status prevents extubation. Treating team was discussing with family trach/PEG. Apparently family requested transfer back to [place] because they live locally here and wanted her closer to home. Patient remained under critical care medicine until 12/24/2016. Bilateral large frontal CVA Moyamoya Disease Seizure Disorder - Continue Keppra 1,500 mg q12h - Continue Tegretol 200 mg q12h - Follow for seizure activity - Continue aspirin - Continue Bromocriptine - Tegretol level WNL. Hyperammonemia: 70 --> 49 --> 56 --> 54. Continue Lactulose 45 ml PO TID. Positive BM several times a day. Systolic and diastolic heart failure, acute - Continue Lasix and MACKENZIE inhibitor. - Monitor electrolytes and renal function - BMP of 02/13/17 reviewed. Atrial Fibrillation, acute: Controlled. - INR 2.3. Follow daily INR. - Continue Coumadin. -INR noted to be low,consulted pharmacy. -INR again noted to be low, Dr. Packer initiated Lovenox coverage and Coumadin was discontinued (02/15/17) Oral thrush: Nystatin swish and swallow QID. Requested RN to swab tongue since patient cannot swallow. Hyponatremia, resolved: Na 129 --> 134. Monitor. Continue hold of FWF for now. Hyperkalemia, resolved: K 5.5 --> 3.8. Anasarca: Continue Albumin 5% 12.5g q 12 hrs followed by Lasix 20 mg IV with Lasix being held for SBP less than 110. Will decrease medications when improvement seen. Still present. Follow clinically. Chronic Respiratory Failure Chronic obstructive pulmonary disease Multilobar pneumonia - Pulmonology following, appreciate input. - Continue tracheostomy with supplemental oxygen. - Tobramycin completed, course ended on 01/20/17. -Secretions reported to be present, Levsin is available. Dysphagia Hypoalbuminemia - PEG placed. Continue TF. - Jevity 1.5 through PEG tube with Corby supplementation. Tolerating well. Sacral/Coccyx wound - Continue specialty bed. - Wound care following, appreciate input. Last note with recommendations to pack wound daily with Santyl to sacrococcygeal wound. On right buttock, right ischium apply single layer Xeroform over open wound beds. Prep periwounds with Cavilon skin prep. Cover Xeroform with bordered gauze dressing. Change dressings EVERY OTHER DAY and PRN for dislodgement or soiling. Consults have been placed to general and plastic surgery. Surgical intervention does not appear to be an option. Wound care continues. GI Prophylaxis: Pepcid. DVT prophylaxis: SCDs. Lovenox case discussed with RN (Vitaly) and Dr. Yuan Discharge Planning Patient will need long-term care facility. CM continuing to seek placement. Trell Torres Jr. Feb 17, 2017 14:04
[2017-02-17] MEDS: WARFARIN SOD 7.5 MG TAB PO SCH (16:00)
[2017-02-17] MEDS: SODIUM HYPOCHLORITE 0.25% 500 ML BTL TOPICAL SCH (18:00)
[2017-02-17] MEDS: LISINOPRIL 5 MG TAB PO SCH (18:00)
[2017-02-17] MEDS: POVIDONE IODINE 10% OINT 30 GM TUBE TOPICAL SCH (18:20)
--- NOTE | 2017-02-17 18:49 | HHI.PR ---
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 Has episodes of Cheyyne Suazo breathing Trach secretions thick had lactulose, loose stools Objective Vital Signs Vital Signs Date Time Temp Pulse Resp B/P Pulse Ox O2 Delivery O2 Flow Rate FiO2 02/17/17 18:03 97 T-piece 28 02/17/17 18:02 97 T-piece 6.00 28 02/17/17 16:03 96.6 81 20 118/83 97 02/17/17 12:05 95.2 82 22 125/74 99 02/17/17 09:29 96 T-piece 6.00 28 02/17/17 08:10 96.9 89 22 147/77 100 02/17/17 04:00 95.6 88 18 123/81 98 02/17/17 04:00 95.6 88 18 123/81 98 02/17/17 01:00 95 Blow By 28 T-Piece Humidified 02/17/17 00:00 96.1 87 20 130/86 99 02/16/17 20:00 97.2 93 20 165/95 97 02/16/17 20:00 90 02/16/17 19:52 98 T-piece 28 I/O 02/16/17 02/16/17 02/16/17 02/17/17 02/17/17 02/17/17 07:00 15:00 23:00 07:00 15:00 23:00 Intake Total 920 ml 1170 ml Output Total 700 ml 400 ml 1100 ml Balance 220 ml -400 ml 1170 ml -1100 ml IV Total 250 ml Tube Feeding 720 ml 720 ml Other 200 ml 200 ml Output Urine Total 700 ml 400 ml 1100 ml # Bowel Movements 1 2 Result Diagram: 02/13/17 0553 02/13/17 0815 Objective Remarks GENERAL: MBMN WF, on Trach collar SKIN: Warm and dry. HEAD: Normocephalic. EYES: No scleral icterus. No injection or drainage. NECK: Supple, trachea midline. No JVD or lymphadenopathy. has trach CARDIOVASCULAR: Regular rate and rhythm without murmurs, gallops, or rubs. RESPIRATORY: Breath sounds equal bilaterally. No accessory muscle use. GASTROINTESTINAL: Abdomen soft, non-tender, nondistended. has PEG MUSCULOSKELETAL: No cyanosis, or edema. BACK: Nontender without obvious deformity. No CVA tenderness. A/P Assessment and Plan RF, S/P Trach CVA Arango arango disease CAD COPD SZ disorder PLAN: Aerosol nebs Cont trach collar supplement 02 Trach suction prn. tolerates TF DW RN at [facility] MD Feb 17, 2017 18:49
[2017-02-17] MEDS: HYOSCYAMINE SOLN 0.125 MG/ML 15 ML BTL G-TUBE PRN (22:10)
[2017-02-18] VITALS (9 sets, daily range): BP systolic 108–181; BP diastolic 60–94; PULSE 76–98; RESP 18–20; TEMP 96.2–98.1; O2SAT 96–100
[2017-02-18] MEDS: ALBUMIN HUMAN 5% 12.5 GM/250 ML BOTTLE IV SCH ×2 (02:10→17:33)
[2017-02-18] MEDS: CHLORHEXIDINE GLUCONATE 2 % 1 PACK (2 CLOTHS) TOP SCH (04:00)
[2017-02-18] MEDS: ENOXAPARIN SODIUM 100 MG/ML SYRINGE SQ SCH ×2 (04:19→17:47)
[2017-02-18] MEDS: FREE WATER G-TUBE SCH ×4 (06:00→17:48)
[2017-02-18] MEDS: CHLORHEXIDINE 0.12% (ORAL KIT) 15 ML CUP MT SCH ×2 (08:00→20:52)
[2017-02-18] MEDS: POVIDONE IODINE 10% OINT 30 GM TUBE TOPICAL SCH (09:00)
[2017-02-18] MEDS: JUVEN POWDER 1 PACK G-TUBE SCH ×2 (09:00→20:52)
[2017-02-18] MEDS: SODIUM CHLORIDE 0.9% FLUSH 10 ML FLUSH IV FLUSH SCH ×2 (09:00→20:50)
[2017-02-18 09:13] LABS: INTERNATIONAL NORMALIZED RATIO 2.3 RATIO; PROTHROMBIN TIME - PATIENT 26.4 SEC (9.8-11.6)
[2017-02-18] MEDS: FAMOTIDINE 20 MG TAB NG SCH ×2 (12:31→20:50)
[2017-02-18] MEDS: METOPROLOL TARTRATE 25 MG TAB G-TUBE SCH ×2 (12:31→20:50)
[2017-02-18] MEDS: LACTULOSE SYRUP 20 GM/30 ML CUP G-TUBE SCH ×3 (12:31→18:49)
[2017-02-18] MEDS: ASCORBIC ACID 500 MG TAB PEG SCH ×2 (12:32→20:50)
[2017-02-18] MEDS: ASPIRIN 81 MG CHEW TAB NG SCH (12:32)
[2017-02-18] MEDS: FOLIC ACID 1 MG TAB OG-TUBE SCH (12:32)
[2017-02-18] MEDS: ATORVASTATIN 40 MG TAB G-TUBE SCH (12:32)
[2017-02-18] MEDS: BROMOCRIPTINE MESYLATE 2.5 MG TAB OG-TUBE SCH ×2 (12:32→20:50)
[2017-02-18] MEDS: FERROUS SULFATE 300 MG /5ML UDC PEG SCH ×2 (12:33→20:49)
[2017-02-18] MEDS: NYSTATIN SUSP 500,000 U/5 ML CUP SWISH-SWAL SCH ×4 (12:33→20:49)
[2017-02-18] MEDS: carBAMazepine SUSP 200 MG/10 ML UDC PEG SCH ×2 (12:33→20:49)
[2017-02-18] MEDS: levETIRAcetam 500 MG/5 ML UDC NG SCH ×2 (12:33→20:50)
[2017-02-18] MEDS: FUROSEMIDE 20 MG/2 ML VIAL IV PUSH SCH ×2 (12:34→20:49)
[2017-02-18] MEDS: SENNOSIDES SYRUP 8.8 MG/5 ML CUP G-TUBE SCH ×2 (12:35→20:50)
[2017-02-18] MEDS: SODIUM HYPOCHLORITE 0.25% 500 ML BTL TOPICAL SCH (12:57)
[2017-02-18] MEDS: COLLAGENASE OINT 30 GM TUBE TOPICAL SCH (12:57)
--- NOTE | 2017-02-18 14:26 | HHI.PR ---
Subjective Remarks Follow up on patient with bilateral frontal CVA, Moyamoya disease, seizure d/o, COPD, multilobar pneumonia and acute respiratory failure. Patient seen and examined.nt. Lying in bed on t-collar. Opens eyes intermittently. Does not track nor follow commands. Continued anasarca despite diuretics. Afebrile. VSS. Oxygen saturation noted to be 100% and pulse was 75 per bedside monitor. Per RN ([place]) no new acute changes overnight or since start of shift. RN reported secretions continue and reviewed Levsin was available to treat. Rn stated he had suctioned ptat least twice since start of shift. Objective Vitals Vital Signs Date Time Temp Pulse Resp B/P Pulse Ox O2 Delivery O2 Flow Rate FiO2 02/18/17 12:57 96.2 92 20 181/94 99 02/18/17 09:35 100 T-piece 6.00 28 02/18/17 04:00 96.3 76 19 108/60 100 02/18/17 00:39 97.7 86 19 133/80 96 02/17/17 21:10 96 02/17/17 21:10 99 Blow By 28 T-Piece Humidified 02/17/17 21:06 97.6 86 19 155/83 100 02/17/17 18:03 97 T-piece 28 02/17/17 18:02 97 T-piece 6.00 28 02/17/17 16:03 96.6 81 20 118/83 97 I/O 02/17/17 02/17/17 02/17/17 02/18/17 02/18/17 02/18/17 06:59 14:59 22:59 06:59 14:59 22:59 Intake Total 1170 ml Output Total 1100 ml 250 ml 550 ml Balance 1170 ml -1100 ml -250 ml -550 ml IV Total 250 ml Tube Feeding 720 ml Other 200 ml Output Urine Total 1100 ml 250 ml 550 ml # Bowel Movements 2 1 1 Objective Remarks GENERAL: Pt encountered laying a bed, T-piece in place, eyes mostly intermittently closed throughout visit, in NAD. SKIN: Warm and dry. Pitting edema noted along flanks and forearms. HEAD: Normocephalic. EYES: No scleral icterus. No injection or drainage. NECK: Supple, t-piece in place. CARDIOVASCULAR: Regular rate and rhythm without murmurs, gallops, or rubs. RESPIRATORY: Breath sounds equal bilaterally, without rhonchi or wheezes. On respirator. No episodes of Mahad-Suazo respirations noted during visit. GASTROINTESTINAL: Abdomen soft, non-tender. Distention noted. G-tube in place MUSCULOSKELETAL: No cyanosis. Bilateral SCD's in place as were bilateral off loading boots. Neurological: Pt not responding to commands, no spontaneous movement observed Procedures PEG 11/24/2016 Percutaneous tracheostomy. 11/18/2016 Moderate encephalopathy with suggestion of left temporal region cortical irritability. No active seizures. Clinical correlation. Echocardiogram Severe dilated left ventricle. Wall thickness is normal. The left ventricular systolic function is moderately reduced with an estimated ejection fraction in the range of 35-40%. Doppler parameters are consistent with a restrictive left ventricular filling pattern indicative of decreased left ventricular diastolic compliance and increase left atrial pressure (grade 3 diastolic dysfunction). There is severe tricuspid regurgitation. There is severe pulmonary hypertension present ( > 70 mmHg). Severe mitral valve regurgitation. Medications and IVs Current Medications Medications (Trade) Dose Ordered Sig/Ora Route Start Time Stop Time Status Last Admin (Peridex 0.12% Liq) 15 ml BID@08,20 MT 11/18/16 08:00 02/18/17 08:00 (NS Flush) 2 ml BID IV FLUSH 11/18/16 09:00 02/18/17 09:00 (Morphine Inj) 2 mg Q2H PRN IV 11/18/16 03:30 01/16/17 08:23 (Zofran Inj) 4 mg Q6H PRN IV 11/18/16 03:30 11/26/16 03:20 Miscellaneous Information 1 Q361D XX 11/18/16 03:30 11/18/16 03:30 (Chlorhexidine 2% Cloth) Taper DAILY@04 TOP 11/18/16 04:00 11/14/17 03:59 02/15/17 04:00 (Chlorhexidine 2% Cloth) 3 pack UNSCH PRN TOP 11/18/16 03:30 (Aspirin Chew) 324 mg DAILY NG 11/18/16 09:00 02/18/17 12:32 (Parlodel) 2.5 mg Q12HR OG-TUBE 11/18/16 09:00 02/18/17 12:32 (Folate) 1 mg DAILY OG-TUBE 11/18/16 09:00 02/18/17 12:32 (Lopressor Inj) 5 mg Q6H PRN IV PUSH 11/23/16 22:45 01/12/17 03:20 (Dulcolax Supp) 10 mg DAILY PRN RECTAL 12/14/16 15:45 (Pepcid) 20 mg BID NG 12/21/16 21:00 02/18/17 12:31 (Keppra Liq) 1,500 mg Q12HR NG 12/21/16 21:00 02/18/17 12:33 (TEGretol LIQ) 200 mg Q12HR PEG 01/06/17 09:00 02/18/17 12:33 (Corby Powder) 1 pack BID G-TUBE 01/13/17 09:00 02/18/17 09:00 (Ferrous Sulfate Liq) 300 mg BID PEG 01/26/17 21:00 02/18/17 12:33 (Vitamin C) 500 mg BID PEG 01/26/17 21:00 02/18/17 12:32 (Free Water) 100 ml Q6HR G-TUBE 01/29/17 12:00 02/18/17 12:00 (Lopressor) 25 mg Q12HR G-TUBE 02/01/17 09:00 02/18/17 12:31 (Turner 5-325 Mg) 1 tab Q4H PRN G-TUBE 02/01/17 11:30 (Tylenol) 650 mg Q6H PRN G-TUBE 02/01/17 09:30 (Lipitor) 40 mg DAILY G-TUBE 02/01/17 09:00 02/18/17 12:32 (Levsin Liq) 0.125 mg Q4H PRN G-TUBE 02/01/17 11:15 02/17/17 22:10 (Lactulose Liq) 45 ml TID G-TUBE 02/01/17 09:00 02/18/17 12:31 (Senna Liq) 8.8 mg BID G-TUBE 02/01/17 09:00 02/18/17 12:35 (D50w (Vial) Inj) 25 ml UNSCH PRN IV PUSH 02/01/17 09:15 Glucagon 1 mg 1 mg UNSCH PRN OTHER 02/01/17 09:15 (Coumadin Consult Pharmacy) 0 ml @ 0 mls/hr UNSCH OTHER 02/01/17 09:15 (Prinivil) 5 mg DAILY@1600 PO 02/03/17 16:00 02/17/17 18:00 (Santyl Oint) 1 applic DAILY TOPICAL 02/04/17 15:00 02/18/17 12:57 (Albumin 5% Inj) 12.5 gm Q12H IV 02/06/17 14:00 02/18/17 02:10 (Lasix Inj) 20 mg BID IV PUSH 02/06/17 14:00 02/18/17 12:34 (Coumadin) 7.5 mg DAILY@16 PO 02/07/17 16:00 02/17/17 16:00 (Mycostatin Liq) 5 ml QID SWISH-SWAL 02/08/17 18:00 02/18/17 12:33 (Dakin'S 0.25% Soln) USE DAILY WITH DRESS... DAILY TOPICAL 02/12/17 18:00 02/18/17 12:57 (Betadine 10% Oint) 1 applic DAILY TOPICAL 02/15/17 09:00 02/18/17 09:00 (Lovenox Inj) 100 mg Q12H SQ 02/15/17 16:30 02/18/17 04:19 Urinary Catheter: Yes Date of Insertion: Jan 29, 2017 A/P Problem List: (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 She was was admitted to [facility] emergency department 11/04/16 with difficulty getting her thoughts together. She was found to have multifocal nonhemorrhagic infarcts in left frontal and parietal regions, right frontal lobe and history of moyamoya disease. She was initially awake and following commands with weakness of RLE and some aphasia. She was transferred to [facility] where he had an cerebral angiogram consistent with moyamoya. There were plans to perform extracranial/intracranial bypass. However she had a seizure and ended up being intubated for status either 11/09 or 11/10.. She was found to have a new right frontal infarct area and she was started on Dilantin and Keppra and it was felt that she would not be a candidate for intervention. She has been intubated 9-10 days and apparently she has been tolerating C Pap trials to some extent but mental status prevents extubation. Treating team was discussing with family trach/PEG. Apparently family requested transfer back to [place] because they live locally here and wanted her closer to home. Patient remained under critical care medicine until 12/24/2016. Reviewed labs with Dr. Yuan, will continue IV Albumin and oral Lactulose. Monitor labs. Bilateral large frontal CVA Moyamoya Disease Seizure Disorder - Continue Keppra 1,500 mg q12h - Continue Tegretol 200 mg q12h - Follow for seizure activity - Continue aspirin - Continue Bromocriptine - Tegretol level WNL. Hyperammonemia: 70 --> 49 --> 56 --> 54. Continue Lactulose 45 ml PO TID. Positive BM several times a day. Systolic and diastolic heart failure, acute - Continue Lasix and MACKENZIE inhibitor. - Monitor electrolytes and renal function - BMP of 02/13/17 reviewed. Atrial Fibrillation, acute: Controlled. - INR 2.3. Follow daily INR. - Continue Coumadin. -INR noted to be low,consulted pharmacy. -INR again noted to be low, Dr. Packer initiated Lovenox coverage and Coumadin was discontinued (02/15/17) Oral thrush: Nystatin swish and swallow QID. Requested RN to swab tongue since patient cannot swallow. Hyponatremia, resolved: Na 129 --> 134. Monitor. Continue hold of FWF for now. Hyperkalemia, resolved: K 5.5 --> 3.8. Anasarca: Continue Albumin 5% 12.5g q 12 hrs followed by Lasix 20 mg IV with Lasix being held for SBP less than 110. Will decrease medications when improvement seen. Still present. Follow clinically. Chronic Respiratory Failure Chronic obstructive pulmonary disease Multilobar pneumonia - Pulmonology following, appreciate input. - Continue tracheostomy with supplemental oxygen. - Tobramycin completed, course ended on 01/20/17. -Secretions reported to be present, Levsin is available. Dysphagia Hypoalbuminemia - PEG placed. Continue TF. - Jevity 1.5 through PEG tube with Corby supplementation. Tolerating well. Sacral/Coccyx wound - Continue specialty bed. - Wound care following, appreciate input. Last note with recommendations to pack wound daily with Santyl to sacrococcygeal wound. On right buttock, right ischium apply single layer Xeroform over open wound beds. Prep periwounds with Cavilon skin prep. Cover Xeroform with bordered gauze dressing. Change dressings EVERY OTHER DAY and PRN for dislodgement or soiling. Consults have been placed to general and plastic surgery. Surgical intervention does not appear to be an option. Wound care continues. GI Prophylaxis: Pepcid. DVT prophylaxis: SCDs. Lovenox case discussed with RN ([place]) and Dr. Yuan Discharge Planning Patient will need long-term care facility. CM continuing to seek placement. Trell Torres Jr. MADISYN Feb 18, 2017 14:26
[2017-02-18] MEDS: LISINOPRIL 5 MG TAB PO SCH (17:34)
[2017-02-18] MEDS: WARFARIN SOD 7.5 MG TAB PO SCH (17:35)
--- NOTE | 2017-02-18 18:45 | HHI.PR ---
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 Has episodes of Cheyyne Suazo breathing Trach secretions thick Objective Vital Signs Vital Signs Date Time Temp Pulse Resp B/P Pulse Ox O2 Delivery O2 Flow Rate FiO2 02/18/17 18:07 99 6.00 28 02/18/17 18:06 99 T-piece 6.00 28 02/18/17 14:20 99 Blow By 28 T-Piece Humidified 02/18/17 14:19 90 02/18/17 12:57 96.2 92 20 181/94 99 02/18/17 09:35 100 T-piece 6.00 28 02/18/17 04:00 96.3 76 19 108/60 100 02/18/17 00:39 97.7 86 19 133/80 96 02/17/17 21:10 96 02/17/17 21:10 99 Blow By 28 T-Piece Humidified 02/17/17 21:06 97.6 86 19 155/83 100 I/O 02/17/17 02/17/17 02/17/17 02/18/17 02/18/17 02/18/17 07:00 15:00 23:00 07:00 15:00 23:00 Intake Total 1170 ml Output Total 1100 ml 250 ml 550 ml 800 ml Balance 1170 ml -1100 ml -250 ml -550 ml -800 ml IV Total 250 ml Tube Feeding 720 ml Other 200 ml Output Urine Total 1100 ml 250 ml 550 ml 800 ml # Bowel Movements 2 1 1 Objective Remarks GENERAL: MBMN WF, on Trach collar SKIN: Warm and dry. HEAD: Normocephalic. EYES: No scleral icterus. No injection or drainage. NECK: Supple, trachea midline. No JVD or lymphadenopathy. has trach CARDIOVASCULAR: Regular rate and rhythm without murmurs, gallops, or rubs. RESPIRATORY: Breath sounds equal bilaterally. No accessory muscle use. GASTROINTESTINAL: Abdomen soft, non-tender, nondistended. has PEG MUSCULOSKELETAL: No cyanosis, or edema. BACK: Nontender without obvious deformity. No CVA tenderness. A/P Assessment and Plan RF, S/P Trach CVA Arango arango disease CAD COPD SZ disorder PLAN: Aerosol nebs Cont trach collar supplement 02 Trach suction prn. tolerates TF DW RN at BS Available prn over weekend Aneja,Vernon Dev MD Feb 18, 2017 18:45
[2017-02-18] MEDS: HYOSCYAMINE SOLN 0.125 MG/ML 15 ML BTL G-TUBE PRN (20:52)
[2017-02-19] VITALS (8 sets, daily range): BP systolic 124–170; BP diastolic 70–97; PULSE 66–94; RESP 18–28; TEMP 95.3–97.5; O2SAT 97–100
[2017-02-19] MEDS: ALBUMIN HUMAN 5% 12.5 GM/250 ML BOTTLE IV SCH ×2 (02:14→17:18)
[2017-02-19] MEDS: CHLORHEXIDINE GLUCONATE 2 % 1 PACK (2 CLOTHS) TOP SCH (04:00)
[2017-02-19] MEDS: FREE WATER G-TUBE SCH ×4 (05:18→18:00)
[2017-02-19] MEDS: ENOXAPARIN SODIUM 100 MG/ML SYRINGE SQ SCH (05:18)
[2017-02-19 05:32] LABS: C. DIFF EPI 027 PRESUMPTIVE NEGATIVE (NEGATIVE)
[2017-02-19] MEDS: CHLORHEXIDINE 0.12% (ORAL KIT) 15 ML CUP MT SCH (08:00)
[2017-02-19] MEDS: ASCORBIC ACID 500 MG TAB PEG SCH (08:09)
[2017-02-19] MEDS: METOPROLOL TARTRATE 25 MG TAB G-TUBE SCH (08:10)
[2017-02-19] MEDS: ATORVASTATIN 40 MG TAB G-TUBE SCH (08:10)
[2017-02-19] MEDS: BROMOCRIPTINE MESYLATE 2.5 MG TAB OG-TUBE SCH (08:10)
[2017-02-19] MEDS: FAMOTIDINE 20 MG TAB NG SCH (08:11)
[2017-02-19] MEDS: FOLIC ACID 1 MG TAB OG-TUBE SCH (08:11)
[2017-02-19] MEDS: ASPIRIN 81 MG CHEW TAB NG SCH (08:11)
[2017-02-19] MEDS: FERROUS SULFATE 300 MG /5ML UDC PEG SCH (08:12)
[2017-02-19] MEDS: NYSTATIN SUSP 500,000 U/5 ML CUP SWISH-SWAL SCH ×3 (08:12→17:27)
[2017-02-19] MEDS: LACTULOSE SYRUP 20 GM/30 ML CUP G-TUBE SCH ×3 (08:12→17:27)
[2017-02-19] MEDS: levETIRAcetam 500 MG/5 ML UDC NG SCH (08:13)
[2017-02-19] MEDS: carBAMazepine SUSP 200 MG/10 ML UDC PEG SCH (08:13)
[2017-02-19] MEDS: FUROSEMIDE 20 MG/2 ML VIAL IV PUSH SCH (08:39)
[2017-02-19] MEDS: JUVEN POWDER 1 PACK G-TUBE SCH (08:39)
[2017-02-19] MEDS: SODIUM CHLORIDE 0.9% FLUSH 10 ML FLUSH IV FLUSH SCH (08:39)
[2017-02-19] MEDS: SODIUM HYPOCHLORITE 0.25% 500 ML BTL TOPICAL SCH (08:39)
[2017-02-19] MEDS: SENNOSIDES SYRUP 8.8 MG/5 ML CUP G-TUBE SCH ×2 (08:39→21:00)
[2017-02-19] MEDS: POVIDONE IODINE 10% OINT 30 GM TUBE TOPICAL SCH (08:39)
[2017-02-19] MEDS: COLLAGENASE OINT 30 GM TUBE TOPICAL SCH (08:40)
[2017-02-19 08:53] LABS: INTERNATIONAL NORMALIZED RATIO 2.6 RATIO; PROTHROMBIN TIME - PATIENT 29.9 SEC (9.8-11.6)
--- NOTE | 2017-02-19 13:27 | HHI.PR ---
Subjective Remarks Follow up on patient with bilateral frontal CVA, Moyamoya disease, seizure d/o, COPD, multilobar pneumonia and acute respiratory failure. Patient seen and examined. Lying in bed on t-collar. Eyes were closed most of the visit. Does not track nor follow commands. Continued anasarca despite diuretics. Afebrile. VSS. Oxygen saturation noted to be 100% and pulse was 85 per bedside monitor. Per RN ([place]) no new acute changes overnight or since start of shift. RN reported secretions continue and reported Levsin had been administered. Rn stated noticing red tinged sputum Objective Vitals Vital Signs Date Time Temp Pulse Resp B/P Pulse Ox O2 Delivery O2 Flow Rate FiO2 02/19/17 12:05 95.3 80 19 135/70 98 02/19/17 09:23 99 T-piece 6.00 28 02/19/17 08:41 91 02/19/17 08:41 99 Blow By 28 T-Piece Humidified 02/19/17 08:19 95.5 84 19 131/84 98 02/19/17 04:52 97.5 94 18 158/85 99 02/18/17 23:04 98 02/18/17 23:04 99 Blow By 28 T-Piece Humidified 02/18/17 19:00 98.1 86 18 159/85 97 02/18/17 18:07 99 6.00 28 02/18/17 18:06 99 T-piece 6.00 28 02/18/17 14:20 99 Blow By 28 T-Piece Humidified 02/18/17 14:19 90 I/O 02/18/17 02/18/17 02/18/17 02/19/17 02/19/17 02/19/17 07:00 15:00 23:00 07:00 15:00 23:00 Intake Total 953 ml 914 ml Output Total 550 ml 800 ml 475 ml Balance -550 ml 153 ml 439 ml Tube Feeding 953 ml 714 ml Other 200 ml Output Urine Total 550 ml 800 ml 475 ml # Bowel Movements 1 4 Objective Remarks GENERAL: Pt encountered laying a bed, T-piece in place, eyes mostly closed throughout visit, in NAD. SKIN: Warm and dry. Pitting edema noted along flanks and forearms, though improvement is noted. HEAD: Normocephalic. EYES: No scleral icterus. No injection or drainage. Eyes needed to be pried open in order to evaluate. NECK: Supple, t-piece in place. CARDIOVASCULAR: Regular rate and rhythm without murmurs, gallops, or rubs. RESPIRATORY: Breath sounds equal bilaterally, without rhonchi or wheezes. On respirator. One episode of Mahad-Suazo respiration noted during visit. GASTROINTESTINAL: Abdomen soft, non-tender. Distention noted. G-tube in place MUSCULOSKELETAL: No cyanosis. Bilateral SCD's in place as were bilateral off loading boots. Neurological: Pt not responding to commands, no spontaneous movement observed Procedures PEG 11/24/2016 Percutaneous tracheostomy. 11/18/2016 Moderate encephalopathy with suggestion of left temporal region cortical irritability. No active seizures. Clinical correlation. Echocardiogram Severe dilated left ventricle. Wall thickness is normal. The left ventricular systolic function is moderately reduced with an estimated ejection fraction in the range of 35-40%. Doppler parameters are consistent with a restrictive left ventricular filling pattern indicative of decreased left ventricular diastolic compliance and increase left atrial pressure (grade 3 diastolic dysfunction). There is severe tricuspid regurgitation. There is severe pulmonary hypertension present ( > 70 mmHg). Severe mitral valve regurgitation. Medications and IVs Current Medications Medications (Trade) Dose Ordered Sig/Ora Route Start Time Stop Time Status Last Admin (Peridex 0.12% Liq) 15 ml BID@08,20 MT 11/18/16 08:00 02/19/17 08:00 (NS Flush) 2 ml BID IV FLUSH 11/18/16 09:00 02/19/17 08:39 (Morphine Inj) 2 mg Q2H PRN IV 11/18/16 03:30 01/16/17 08:23 (Zofran Inj) 4 mg Q6H PRN IV 11/18/16 03:30 11/26/16 03:20 Miscellaneous Information 1 Q361D XX 11/18/16 03:30 11/18/16 03:30 (Chlorhexidine 2% Cloth) Taper DAILY@04 TOP 11/18/16 04:00 11/14/17 03:59 02/15/17 04:00 (Chlorhexidine 2% Cloth) 3 pack UNSCH PRN TOP 11/18/16 03:30 (Aspirin Chew) 324 mg DAILY NG 11/18/16 09:00 02/19/17 08:11 (Parlodel) 2.5 mg Q12HR OG-TUBE 11/18/16 09:00 02/19/17 08:10 (Folate) 1 mg DAILY OG-TUBE 11/18/16 09:00 02/19/17 08:11 (Lopressor Inj) 5 mg Q6H PRN IV PUSH 11/23/16 22:45 01/12/17 03:20 (Dulcolax Supp) 10 mg DAILY PRN RECTAL 12/14/16 15:45 (Pepcid) 20 mg BID NG 12/21/16 21:00 02/19/17 08:11 (Keppra Liq) 1,500 mg Q12HR NG 12/21/16 21:00 02/19/17 08:13 (TEGretol LIQ) 200 mg Q12HR PEG 01/06/17 09:00 02/19/17 08:13 (Corby Powder) 1 pack BID G-TUBE 01/13/17 09:00 02/19/17 08:39 (Ferrous Sulfate Liq) 300 mg BID PEG 01/26/17 21:00 02/19/17 08:12 (Vitamin C) 500 mg BID PEG 01/26/17 21:00 02/19/17 08:09 (Free Water) 100 ml Q6HR G-TUBE 01/29/17 12:00 02/19/17 12:00 (Lopressor) 25 mg Q12HR G-TUBE 02/01/17 09:00 02/19/17 08:10 ([place] 5-325 Mg) 1 tab Q4H PRN G-TUBE 02/01/17 11:30 (Tylenol) 650 mg Q6H PRN G-TUBE 02/01/17 09:30 (Lipitor) 40 mg DAILY G-TUBE 02/01/17 09:00 02/19/17 08:10 (Levsin Liq) 0.125 mg Q4H PRN G-TUBE 02/01/17 11:15 02/18/17 20:52 (Lactulose Liq) 45 ml TID G-TUBE 02/01/17 09:00 02/19/17 13:04 (Senna Liq) 8.8 mg BID G-TUBE 02/01/17 09:00 02/19/17 08:39 (D50w (Vial) Inj) 25 ml UNSCH PRN IV PUSH 02/01/17 09:15 Glucagon 1 mg 1 mg UNSCH PRN OTHER 02/01/17 09:15 (Coumadin Consult Pharmacy) 0 ml @ 0 mls/hr UNSCH OTHER 02/01/17 09:15 (Prinivil) 5 mg DAILY@1600 PO 02/03/17 16:00 02/18/17 17:34 (Santyl Oint) 1 applic DAILY TOPICAL 02/04/17 15:00 02/19/17 08:40 (Albumin 5% Inj) 12.5 gm Q12H IV 02/06/17 14:00 02/19/17 02:14 (Lasix Inj) 20 mg BID IV PUSH 02/06/17 14:00 02/19/17 08:39 (Coumadin) 7.5 mg DAILY@16 PO 02/07/17 16:00 02/18/17 17:35 (Mycostatin Liq) 5 ml QID SWISH-SWAL 02/08/17 18:00 02/19/17 13:03 (Dakin'S 0.25% Soln) USE DAILY WITH DRESS... DAILY TOPICAL 02/12/17 18:00 02/19/17 08:39 (Betadine 10% Oint) 1 applic DAILY TOPICAL 02/15/17 09:00 02/19/17 08:39 (Lovenox Inj) 100 mg Q12H SQ 02/15/17 16:30 02/19/17 05:18 Urinary Catheter: Yes Assessment to: Continue Brown insert reason: Prolonged Immobilization Date of Insertion: Jan 29, 2017 A/P Problem List: (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 She was was admitted to [facility] emergency department 11/04/16 with difficulty getting her thoughts together. She was found to have multifocal nonhemorrhagic infarcts in left frontal and parietal regions, right frontal lobe and history of moyamoya disease. She was initially awake and following commands with weakness of RLE and some aphasia. She was transferred to [facility] where he had an cerebral angiogram consistent with moyamoya. There were plans to perform extracranial/intracranial bypass. However she had a seizure and ended up being intubated for status either 11/09 or 11/10.. She was found to have a new right frontal infarct area and she was started on Dilantin and Keppra and it was felt that she would not be a candidate for intervention. She has been intubated 9-10 days and apparently she has been tolerating C Pap trials to some extent but mental status prevents extubation. Treating team was discussing with family trach/PEG. Apparently family requested transfer back to [place] because they live locally here and wanted her closer to home. Patient remained under critical care medicine until 12/24/2016. Discussed red sputum presentation with Dr. Yuan who advised obtaining CBC. Lab ordered. Bilateral large frontal CVA Moyamoya Disease Seizure Disorder - Continue Keppra 1,500 mg q12h - Continue Tegretol 200 mg q12h - Follow for seizure activity - Continue aspirin - Continue Bromocriptine - Tegretol level WNL. Hyperammonemia: 70 --> 49 --> 56 --> 54. Continue Lactulose 45 ml PO TID. Positive BM several times a day. Systolic and diastolic heart failure, acute - Continue Lasix and MACKENZIE inhibitor. - Monitor electrolytes and renal function - BMP of 02/13/17 reviewed. Atrial Fibrillation, acute: Controlled. - INR 2.3. Follow daily INR. - Continue Coumadin. -INR noted to be low,consulted pharmacy. -INR again noted to be low, Dr. Packer initiated Lovenox coverage and Coumadin was discontinued (02/15/17) Oral thrush: Nystatin swish and swallow QID. Requested RN to swab tongue since patient cannot swallow. Hyponatremia, resolved: Na 129 --> 134. Monitor. Continue hold of FWF for now. Hyperkalemia, resolved: K 5.5 --> 3.8. Anasarca: Continue Albumin 5% 12.5g q 12 hrs followed by Lasix 20 mg IV with Lasix being held for SBP less than 110. Will decrease medications when improvement seen. Still present. Follow clinically. Chronic Respiratory Failure Chronic obstructive pulmonary disease Multilobar pneumonia - Pulmonology following, appreciate input. - Continue tracheostomy with supplemental oxygen. - Tobramycin completed, course ended on 01/20/17. -Secretions reported to be present, Levsin is available. Dysphagia Hypoalbuminemia - PEG placed. Continue TF. - Jevity 1.5 through PEG tube with Corby supplementation. Tolerating well. Sacral/Coccyx wound - Continue specialty bed. - Wound care following, appreciate input. Last note with recommendations to pack wound daily with Santyl to sacrococcygeal wound. On right buttock, right ischium apply single layer Xeroform over open wound beds. Prep periwounds with Cavilon skin prep. Cover Xeroform with bordered gauze dressing. Change dressings EVERY OTHER DAY and PRN for dislodgement or soiling. Consults have been placed to general and plastic surgery. Surgical intervention does not appear to be an option. Wound care continues. GI Prophylaxis: Pepcid. DVT prophylaxis: SCDs. Lovenox case discussed with RN and Dr. Yuan Discharge Planning Patient will need long-term care facility. CM continuing to seek placement. Trell Torres Jr. MADISYN Feb 19, 2017 13:27
[2017-02-19] MEDS ORDERED: WARFARIN SOD 5 MG TAB PO SCH (16:00)
[2017-02-19] MEDS ORDERED: WARFARIN SOD 4 MG TAB PO SCH (16:15)
[2017-02-19 17:16] LABS: MEAN CELL VOLUME 76.5 FL (80.0-100.0); MEAN CORPUSCULAR HEMOGLOBIN 24.5 PG (27.0-34.0); MEAN CORPUSCULAR HGB CONC 32.1 % (32.0-36.0); PLATELET COUNT 338 TH/MM3 (150-450); RED BLOOD COUNT 3.66 MIL/MM3 (4.00-5.30); RED CELL DISTRIBUTION WIDTH 19.9 % (11.6-17.2); REVIEW FLAG FINAL; WHITE BLOOD COUNT 11.4 TH/MM3 (4.0-11.0)
[2017-02-19] MEDS: LISINOPRIL 5 MG TAB PO SCH (17:23)
[2017-02-20] VITALS (9 sets, daily range): BP systolic 113–139; BP diastolic 68–80; PULSE 72–96; RESP 18–26; TEMP 96.1–98.1; O2SAT 97–99
[2017-02-20] MEDS: levETIRAcetam 500 MG/5 ML UDC NG SCH ×3 (00:12→23:35)
[2017-02-20] MEDS: NYSTATIN SUSP 500,000 U/5 ML CUP SWISH-SWAL SCH ×5 (00:12→23:34)
[2017-02-20] MEDS: SENNOSIDES SYRUP 8.8 MG/5 ML CUP G-TUBE SCH ×3 (00:13→21:00)
[2017-02-20] MEDS: FUROSEMIDE 20 MG/2 ML VIAL IV PUSH SCH ×3 (00:13→23:37)
[2017-02-20] MEDS: FERROUS SULFATE 300 MG /5ML UDC PEG SCH ×3 (00:14→23:35)
[2017-02-20] MEDS: BROMOCRIPTINE MESYLATE 2.5 MG TAB OG-TUBE SCH ×3 (00:14→23:34)
[2017-02-20] MEDS: carBAMazepine SUSP 200 MG/10 ML UDC PEG SCH ×3 (00:14→23:35)
[2017-02-20] MEDS: METOPROLOL TARTRATE 25 MG TAB G-TUBE SCH ×3 (00:15→23:34)
[2017-02-20] MEDS: JUVEN POWDER 1 PACK G-TUBE SCH ×3 (00:15→23:36)
[2017-02-20] MEDS: CHLORHEXIDINE 0.12% (ORAL KIT) 15 ML CUP MT SCH ×3 (00:15→20:00)
[2017-02-20] MEDS: ASCORBIC ACID 500 MG TAB PEG SCH ×3 (00:15→23:34)
[2017-02-20] MEDS: FAMOTIDINE 20 MG TAB NG SCH ×3 (00:15→23:34)
[2017-02-20] MEDS: SODIUM CHLORIDE 0.9% FLUSH 10 ML FLUSH IV FLUSH SCH ×3 (00:16→23:37)
[2017-02-20] MEDS: FREE WATER G-TUBE SCH ×5 (00:16→23:38)
[2017-02-20] MEDS: ALBUMIN HUMAN 5% 12.5 GM/250 ML BOTTLE IV SCH ×2 (00:45→14:38)
[2017-02-20] MEDS: CHLORHEXIDINE GLUCONATE 2 % 1 PACK (2 CLOTHS) TOP SCH (04:00)
[2017-02-20 07:15] LABS: INTERNATIONAL NORMALIZED RATIO 2.1 RATIO; PROTHROMBIN TIME - PATIENT 23.4 SEC (9.8-11.6)
[2017-02-20] MEDS: COLLAGENASE OINT 30 GM TUBE TOPICAL SCH (09:00)
[2017-02-20] MEDS: POVIDONE IODINE 10% OINT 30 GM TUBE TOPICAL SCH (09:00)
[2017-02-20] MEDS: FOLIC ACID 1 MG TAB OG-TUBE SCH (09:44)
[2017-02-20] MEDS: ATORVASTATIN 40 MG TAB G-TUBE SCH (09:44)
[2017-02-20] MEDS: ASPIRIN 81 MG CHEW TAB NG SCH (09:45)
[2017-02-20] MEDS: LACTULOSE SYRUP 20 GM/30 ML CUP G-TUBE SCH ×3 (09:45→18:00)
--- NOTE | 2017-02-20 14:32 | HHI.PR ---
Subjective Remarks Follow up on patient with bilateral frontal CVA, Moyamoya disease, seizure d/o, COPD, multilobar pneumonia and acute respiratory failure. Patient seen and examined. Lying in bed on t-collar. Eyes were closed most of the visit. Does not track nor follow commands. Continued anasarca despite diuretics. Afebrile. VSS. Oxygen saturation noted to be 100% and pulse was 87 per bedside monitor. Per RN (Vitaly) no new acute changes overnight or since start of shift. RN reported secretions continue. Objective Vitals Vital Signs Date Time Temp Pulse Resp B/P Pulse Ox O2 Delivery O2 Flow Rate FiO2 02/20/17 12:17 96.4 78 20 113/77 98 02/20/17 11:03 72 02/20/17 09:48 99 Nasal Cannula 5.00 28 02/20/17 09:40 98 Blow By 28 T-Piece Humidified 02/20/17 08:16 96.6 76 19 118/76 97 02/20/17 04:00 96.1 76 26 119/68 98 02/20/17 00:00 98.1 82 26 122/70 99 02/19/17 20:00 96.1 91 28 154/97 98 02/19/17 19:15 99 T-piece 5.00 28 02/19/17 19:15 99 T-piece 5.00 28 02/19/17 16:45 96.0 89 19 170/77 100 I/O 02/19/17 02/19/17 02/19/17 02/20/17 02/20/17 02/20/17 07:00 15:00 23:00 07:00 15:00 23:00 Intake Total 914 ml Output Total 475 ml 200 ml 100 ml Balance 439 ml -200 ml -100 ml Tube Feeding 714 ml Other 200 ml Output Urine Total 475 ml 200 ml 100 ml # Bowel Movements 4 2 0 Result Diagram: 02/19/17 3295 Objective Remarks GENERAL: Pt encountered laying a bed, T-piece in place, eyes mostly closed throughout visit, in NAD. SKIN: Warm and dry. Pitting edema noted along flanks and forearms, though improvement is noted. Small degree of edema without erythema noted medial aspect of skin below right eye. HEAD: Normocephalic. EYES: No scleral icterus. No injection or drainage. Eyes needed to be pried open in order to evaluate. NECK: Supple, t-piece in place. CARDIOVASCULAR: Regular rate and rhythm without murmurs, gallops, or rubs. RESPIRATORY: Breath sounds equal bilaterally, without rhonchi or wheezes. On respirator. One episode of Mahad-Suazo respiration noted during visit. GASTROINTESTINAL: Abdomen soft, non-tender. Distention noted. G-tube in place MUSCULOSKELETAL: No cyanosis. Bilateral SCD's in place as were bilateral off loading boots. Neurological: Pt not responding to commands, no spontaneous movement observed Procedures PEG 11/24/2016 Percutaneous tracheostomy. 11/18/2016 Moderate encephalopathy with suggestion of left temporal region cortical irritability. No active seizures. Clinical correlation. Echocardiogram Severe dilated left ventricle. Wall thickness is normal. The left ventricular systolic function is moderately reduced with an estimated ejection fraction in the range of 35-40%. Doppler parameters are consistent with a restrictive left ventricular filling pattern indicative of decreased left ventricular diastolic compliance and increase left atrial pressure (grade 3 diastolic dysfunction). There is severe tricuspid regurgitation. There is severe pulmonary hypertension present ( > 70 mmHg). Severe mitral valve regurgitation. Medications and IVs Current Medications Medications (Trade) Dose Ordered Sig/Ora Route Start Time Stop Time Status Last Admin (Peridex 0.12% Liq) 15 ml BID@08,20 MT 11/18/16 08:00 02/20/17 00:15 (NS Flush) 2 ml BID IV FLUSH 11/18/16 09:00 02/20/17 09:51 (Morphine Inj) 2 mg Q2H PRN IV 11/18/16 03:30 01/16/17 08:23 (Zofran Inj) 4 mg Q6H PRN IV 11/18/16 03:30 11/26/16 03:20 Miscellaneous Information 1 Q361D XX 11/18/16 03:30 11/18/16 03:30 (Chlorhexidine 2% Cloth) Taper DAILY@04 TOP 11/18/16 04:00 11/14/17 03:59 02/15/17 04:00 (Chlorhexidine 2% Cloth) 3 pack UNSCH PRN TOP 11/18/16 03:30 (Aspirin Chew) 324 mg DAILY NG 11/18/16 09:00 02/20/17 09:45 (Parlodel) 2.5 mg Q12HR OG-TUBE 11/18/16 09:00 02/20/17 09:44 (Folate) 1 mg DAILY OG-TUBE 11/18/16 09:00 02/20/17 09:44 (Lopressor Inj) 5 mg Q6H PRN IV PUSH 11/23/16 22:45 01/12/17 03:20 (Dulcolax Supp) 10 mg DAILY PRN RECTAL 12/14/16 15:45 (Pepcid) 20 mg BID NG 12/21/16 21:00 02/20/17 09:44 (Keppra Liq) 1,500 mg Q12HR NG 12/21/16 21:00 02/20/17 09:46 (TEGretol LIQ) 200 mg Q12HR PEG 01/06/17 09:00 02/20/17 09:46 (Corby Powder) 1 pack BID G-TUBE 01/13/17 09:00 02/20/17 09:00 (Ferrous Sulfate Liq) 300 mg BID PEG 01/26/17 21:00 02/20/17 09:45 (Vitamin C) 500 mg BID PEG 01/26/17 21:00 02/20/17 09:44 (Free Water) 100 ml Q6HR G-TUBE 01/29/17 12:00 02/20/17 12:00 (Lopressor) 25 mg Q12HR G-TUBE 02/01/17 09:00 02/20/17 09:45 ([place] 5-325 Mg) 1 tab Q4H PRN G-TUBE 02/01/17 11:30 (Tylenol) 650 mg Q6H PRN G-TUBE 02/01/17 09:30 (Lipitor) 40 mg DAILY G-TUBE 02/01/17 09:00 02/20/17 09:44 (Levsin Liq) 0.125 mg Q4H PRN G-TUBE 02/01/17 11:15 02/18/17 20:52 (Lactulose Liq) 45 ml TID G-TUBE 02/01/17 09:00 02/20/17 09:45 (Senna Liq) 8.8 mg BID G-TUBE 02/01/17 09:00 02/19/17 08:39 (D50w (Vial) Inj) 25 ml UNSCH PRN IV PUSH 02/01/17 09:15 Glucagon 1 mg 1 mg UNSCH PRN OTHER 02/01/17 09:15 (Coumadin Consult Pharmacy) 0 ml @ 0 mls/hr UNSCH OTHER 02/01/17 09:15 (Prinivil) 5 mg DAILY@1600 PO 02/03/17 16:00 02/19/17 17:23 (Santyl Oint) 1 applic DAILY TOPICAL 02/04/17 15:00 02/19/17 08:40 (Albumin 5% Inj) 12.5 gm Q12H IV 02/06/17 14:00 02/20/17 00:45 (Lasix Inj) 20 mg BID IV PUSH 02/06/17 14:00 02/20/17 09:45 (Mycostatin Liq) 5 ml QID SWISH-SWAL 02/08/17 18:00 02/20/17 09:46 (Dakin'S 0.25% Soln) USE DAILY WITH DRESS... DAILY TOPICAL 02/12/17 18:00 02/19/17 08:39 (Betadine 10% Oint) 1 applic DAILY TOPICAL 02/15/17 09:00 02/19/17 08:39 (Coumadin) 8 mg DAILY@1600 PO 02/21/17 16:00 (Coumadin) 10 mg ONCE ONCE PO 02/20/17 16:00 02/20/17 16:01 Urinary Catheter: Yes Assessment to: Continue Brown insert reason: Prolonged Immobilization Date of Insertion: Jan 29, 2017 A/P Problem List: (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 She was was admitted to [facility] emergency department 11/04/16 with difficulty getting her thoughts together. She was found to have multifocal nonhemorrhagic infarcts in left frontal and parietal regions, right frontal lobe and history of moyamoya disease. She was initially awake and following commands with weakness of RLE and some aphasia. She was transferred to [facility] where he had an cerebral angiogram consistent with moyamoya. There were plans to perform extracranial/intracranial bypass. However she had a seizure and ended up being intubated for status either 4/4 or 4/5.. She was found to have a new right frontal infarct area and she was started on Dilantin and Keppra and it was felt that she would not be a candidate for intervention. She has been intubated 9-10 days and apparently she has been tolerating C Pap trials to some extent but mental status prevents extubation. Treating team was discussing with family trach/PEG. Apparently family requested transfer back to [place] because they live locally here and wanted her closer to home. Patient remained under critical care medicine until 12/24/2016. Sputum culture evidenced gram positive cocci in pairs and gram negative rods, culture and herbert to follow. Per Dr. Yuan, awaiting those reports in order to determine if antibiotic coverage is warranted. RN to apply warm compress to pt' s face (right side). Pt had diarrhea that hospitalist bread supervisor ordered C-diff testing; negative result. Pt's INR is 2.1 this morning. Bilateral large frontal CVA Moyamoya Disease Seizure Disorder - Continue Keppra 1,500 mg q12h - Continue Tegretol 200 mg q12h - Follow for seizure activity - Continue aspirin - Continue Bromocriptine - Tegretol level WNL. Hyperammonemia: 70 --> 49 --> 56 --> 54. Continue Lactulose 45 ml PO TID. Positive BM several times a day. Systolic and diastolic heart failure, acute - Continue Lasix and MACKENZIE inhibitor. - Monitor electrolytes and renal function - BMP of 02/13/17 reviewed. Atrial Fibrillation, acute: Controlled. - INR 2.3. Follow daily INR. - Continue Coumadin. -INR noted to be low,consulted pharmacy. -INR again noted to be low, Dr. Packer initiated Lovenox coverage and Coumadin was discontinued (02/15/17) Oral thrush: Nystatin swish and swallow QID. Requested RN to swab tongue since patient cannot swallow. Hyponatremia, resolved: Na 129 --> 134. Monitor. Continue hold of FWF for now. Hyperkalemia, resolved: K 5.5 --> 3.8. Anasarca: Continue Albumin 5% 12.5g q 12 hrs followed by Lasix 20 mg IV with Lasix being held for SBP less than 110. Will decrease medications when improvement seen. Still present. Follow clinically. Chronic Respiratory Failure Chronic obstructive pulmonary disease Multilobar pneumonia - Pulmonology following, appreciate input. - Continue tracheostomy with supplemental oxygen. - Tobramycin completed, course ended on 01/20/17. -Secretions reported to be present, Levsin is available. Dysphagia Hypoalbuminemia - PEG placed. Continue TF. - Jevity 1.5 through PEG tube with Corby supplementation. Tolerating well. Sacral/Coccyx wound - Continue specialty bed. - Wound care following, appreciate input. Last note with recommendations to pack wound daily with Santyl to sacrococcygeal wound. On right buttock, right ischium apply single layer Xeroform over open wound beds. Prep periwounds with Cavilon skin prep. Cover Xeroform with bordered gauze dressing. Change dressings EVERY OTHER DAY and PRN for dislodgement or soiling. Consults have been placed to general and plastic surgery. Surgical intervention does not appear to be an option. Wound care continues. GI Prophylaxis: Pepcid. DVT prophylaxis: SCDs. Lovenox case discussed with RN and Dr. Yuan Discharge Planning Patient will need long-term care facility. CM continuing to seek placement. Trell Torres Jr. Feb 20, 2017 14:32
[2017-02-20] MEDS ORDERED: WARFARIN SOD 10 MG TAB PO SCH (16:00)
[2017-02-20] MEDS ORDERED: WARFARIN SOD 10 MG TAB PO ONE (16:00)
[2017-02-20] MEDS: LISINOPRIL 5 MG TAB PO SCH (17:58)
[2017-02-20] MEDS: SODIUM HYPOCHLORITE 0.25% 500 ML BTL TOPICAL SCH (17:58)
[2017-02-21] VITALS (9 sets, daily range): BP systolic 112–138; BP diastolic 67–88; PULSE 81–101; RESP 20–22; TEMP 96.3–98.8; O2SAT 97–100
[2017-02-21] MEDS: ALBUMIN HUMAN 5% 12.5 GM/250 ML BOTTLE IV SCH ×2 (01:34→14:13)
[2017-02-21] MEDS: CHLORHEXIDINE GLUCONATE 2 % 1 PACK (2 CLOTHS) TOP SCH (04:00)
[2017-02-21] MEDS: FREE WATER G-TUBE SCH ×3 (06:00→18:00)
[2017-02-21] MEDS: CHLORHEXIDINE 0.12% (ORAL KIT) 15 ML CUP MT SCH ×2 (08:00→22:19)
[2017-02-21] MEDS: LACTULOSE SYRUP 20 GM/30 ML CUP G-TUBE SCH ×3 (08:08→18:02)
[2017-02-21] MEDS: SENNOSIDES SYRUP 8.8 MG/5 ML CUP G-TUBE SCH ×2 (08:08→22:04)
[2017-02-21] MEDS: NYSTATIN SUSP 500,000 U/5 ML CUP SWISH-SWAL SCH (08:09)
[2017-02-21] MEDS: SODIUM CHLORIDE 0.9% FLUSH 10 ML FLUSH IV FLUSH SCH ×2 (08:09→22:04)
[2017-02-21] MEDS: FAMOTIDINE 20 MG TAB NG SCH ×2 (08:10→22:04)
[2017-02-21] MEDS: ASPIRIN 81 MG CHEW TAB NG SCH (08:10)
[2017-02-21] MEDS: FOLIC ACID 1 MG TAB OG-TUBE SCH (08:10)
[2017-02-21] MEDS: BROMOCRIPTINE MESYLATE 2.5 MG TAB OG-TUBE SCH ×2 (08:10→22:04)
[2017-02-21] MEDS: ATORVASTATIN 40 MG TAB G-TUBE SCH (08:11)
[2017-02-21] MEDS: FUROSEMIDE 20 MG/2 ML VIAL IV PUSH SCH ×2 (08:12→22:04)
[2017-02-21] MEDS: levETIRAcetam 500 MG/5 ML UDC NG SCH ×2 (08:12→22:03)
[2017-02-21] MEDS: carBAMazepine SUSP 200 MG/10 ML UDC PEG SCH ×2 (08:12→22:03)
[2017-02-21] MEDS: FERROUS SULFATE 300 MG /5ML UDC PEG SCH ×2 (08:12→22:03)
[2017-02-21] MEDS: METOPROLOL TARTRATE 25 MG TAB G-TUBE SCH ×2 (08:12→22:04)
[2017-02-21] MEDS: JUVEN POWDER 1 PACK G-TUBE SCH ×2 (08:13→22:05)
[2017-02-21] MEDS: SODIUM HYPOCHLORITE 0.25% 500 ML BTL TOPICAL SCH (08:15)
[2017-02-21] MEDS: COLLAGENASE OINT 30 GM TUBE TOPICAL SCH (08:15)
[2017-02-21] MEDS: POVIDONE IODINE 10% OINT 30 GM TUBE TOPICAL SCH (09:00)
--- NOTE | 2017-02-21 11:05 | HHI.PR ---
Subjective Remarks Follow up on patient with bilateral frontal CVA, Moyamoya disease, seizure d/o, COPD, multilobar pneumonia and acute respiratory failure. Patient seen and examined, lying in bed with eyes closed. Does open and occasionally track with eyes. Does not follow commands. T-collar in place. No new events overnight. Afebrile. VSS. Positive BM. Objective Vitals Vital Signs Date Time Temp Pulse Resp B/P Pulse Ox O2 Delivery O2 Flow Rate FiO2 02/21/17 08:15 97 T-piece 5.00 02/21/17 08:07 97.2 85 20 130/88 98 02/21/17 06:09 81 02/21/17 05:00 97.9 86 22 128/76 97 02/21/17 00:30 98.8 87 21 135/75 100 02/20/17 21:45 97.1 96 20 125/80 99 02/20/17 21:02 99 T-piece 5.00 28 02/20/17 16:17 97.4 84 18 139/78 99 02/20/17 12:17 96.4 78 20 113/77 98 02/20/17 11:03 72 I/O 02/20/17 02/20/17 02/20/17 02/21/17 02/21/17 02/21/17 07:00 15:00 23:00 07:00 15:00 23:00 Intake Total 0 ml 0 ml Output Total 100 ml 650 ml 600 ml Balance -100 ml -650 ml -600 ml Intake Oral 0 ml 0 ml Output Urine Total 100 ml 650 ml 600 ml # Voids 7 # Bowel Movements 0 1 1 Result Diagram: 02/19/17 1635 Imaging Last Impressions Abdomen X-Ray 02/11/17 0000 Signed Impressions: Service Date/Time: Saturday, February 11, 2017 17:52 - CONCLUSION: Minimal colonic distention. Kenneth Frost MD FACR Catheter Change 02/10/17 0000 Signed Impressions: Service Date/Time: February 13:47 - CONCLUSION: Uncomplicated fluoroscopic guided gastrostomy tube replacement. Positioning confirmed. The tube can be used immediately. Nghia Pacheco MD Lower Extremity Ultrasound 02/01/17 0000 Signed Impressions: Service Date/Time: Wednesday, February 01, 2017 13:23 - CONCLUSION: Normal examination. Gray Veronica MD Chest X-Ray 02/01/17 0000 Signed Impressions: Service Date/Time: Wednesday, February 01, 2017 08:45 - CONCLUSION: 1. Stable tracheostomy. 2. Mild interstitial prominence may reflect slight positive fluid balance. Christiano Villagran MD Brain MRI 01/06/17 0000 Signed Impressions: Service Date/Time: January 14:19 - CONCLUSION: Continued evolutionary changes of large bilateral frontal lobe infarcts. Sami Mccarthy MD Objective Remarks GENERAL: Well-nourished, well-developed female patient lying in bed in NAD, t- collar in place. SKIN: Warm and dry. Anasarca noted. HEENT: Normocephalic. Pupils equal and round. No scleral icterus. No injection or drainage. No nasal bleeding or discharge. Mucous membranes pink and moist. NECK: Supple. Trachea midline. CARDIOVASCULAR: Regular rate and rhythm. S1, S2 noted. No murmur appreciated. RESPIRATORY: No accessory muscle use. Distant breath sounds noted. Breath sounds equal bilaterally. GASTROINTESTINAL: Abdomen soft, non-tender, nondistended. Normoactive bowel sounds x4. MUSCULOSKELETAL: No obvious deformities. Extremities without clubbing, cyanosis. Generalized edema noted. NEUROLOGICAL: Awake and alert. No obvious cranial nerve deficits. Motor grossly within normal limits. 5/5 muscle strength in bilateral upper and lower extremities. Normal speech. PSYCHIATRIC: Appropriate mood and affect; insight and judgment normal. Procedures PEG 11/24/2016 Percutaneous tracheostomy. 11/18/2016 Moderate encephalopathy with suggestion of left temporal region cortical irritability. No active seizures. Clinical correlation. Echocardiogram Severe dilated left ventricle. Wall thickness is normal. The left ventricular systolic function is moderately reduced with an estimated ejection fraction in the range of 35-40%. Doppler parameters are consistent with a restrictive left ventricular filling pattern indicative of decreased left ventricular diastolic compliance and increase left atrial pressure (grade 3 diastolic dysfunction). There is severe tricuspid regurgitation. There is severe pulmonary hypertension present ( > 70 mmHg). Severe mitral valve regurgitation. Urinary Catheter: Yes Assessment to: Continue Brown insert reason: Stage III/IV Press Ulcer Date of Insertion: Jan 29, 2017 A/P Problem List: (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 She was was admitted to [facility] emergency department 11/04/16 with difficulty getting her thoughts together. She was found to have multifocal nonhemorrhagic infarcts in left frontal and parietal regions, right frontal lobe and history of moyamoya disease. She was initially awake and following commands with weakness of RLE and some aphasia. She was transferred to [facility] where he had an cerebral angiogram consistent with moyamoya. There were plans to perform extracranial/intracranial bypass. However she had a seizure and ended up being intubated for status either 4/ or 4/5.. She was found to have a new right frontal infarct area and she was started on Dilantin and Keppra and it was felt that she would not be a candidate for intervention. She has been intubated 9- 10 days and apparently she has been tolerating C Pap trials to some extent but mental status prevents extubation. Treating team was discussing with family trach/PEG. Apparently family requested transfer back to [place] because they live locally here and wanted her closer to home. Patient remained under critical care medicine until 12/24/2016. Bilateral large frontal CVA Moyamoya Disease Seizure Disorder - Continue Keppra 1,500 mg q12h - Continue Tegretol 200 mg q12h - Follow for seizure activity - Continue aspirin - Continue Bromocriptine - Tegretol level WNL. Hyperammonemia: 70 --> 49 --> 56 --> 54 --> 30 --> 37. Decrease Lactulose from 45 to 30 ml PO TID. Positive BM noted. RN to please continue administration. Systolic and diastolic heart failure, acute - Continue Lasix and MACKENZIE inhibitor. - Monitor electrolytes and renal function - BMP ordered for tomorrow am, follow. Atrial Fibrillation, acute: Controlled. - INR 2.1. Follow daily INR. Pharmacy to manage. - Continue Coumadin. Oral thrush, resolved: Nystatin swish and swallow dc'd. QID. Hyponatremia, resolved: Na 129 --> 137. Continue FWF. Hyperkalemia, resolved: K 5.5 --> 3.8. Anasarca: Continue Albumin 5% 12.5g q 12 hrs followed by Lasix 20 mg IV with Lasix being held for SBP less than 110. Will decrease medications when improvement seen. Still present. Follow clinically. Chronic Respiratory Failure Chronic obstructive pulmonary disease Multilobar pneumonia - Pulmonology following, appreciate input. - Continue tracheostomy with supplemental oxygen. - Tobramycin completed, course ended on 01/20/17. - Levsin PRN for increased secretions. Dysphagia Hypoalbuminemia - PEG placed. Continue TF. - Jevity 1.5 through PEG tube with Corby supplementation. Tolerating well. Sacral/Coccyx wound - Continue specialty bed. - Wound care following, appreciate input. Last note with recommendations to pack wound daily with Santyl to sacrococcygeal wound. On right buttock, right ischium apply single layer Xeroform over open wound beds. Prep periwounds with Cavilon skin prep. Cover Xeroform with bordered gauze dressing. Change dressings EVERY OTHER DAY and PRN for dislodgement or soiling. GI Prophylaxis: Pepcid. DVT prophylaxis: SCDs. Coumadin. Discussed with Dr. Yuan Discharge Planning Patient will need long-term care facility. CM continuing to seek placement. Last CM note:02/17/17- [facility]- pt is declined, no medicaid accepted. LM with [facility]. Quita Teague CM Addendum: [facility]- unable to accept, pt is too expensive with peg AND trach. They could do one or the other. Sw daughter- she expressed understanding about the cost issue and stated the CAR UNLOADER HELPER talked to her about potentially weening pt off the trach. Jackie Walsh [employer] HEL[employer] Feb 21, 2017 11:05
[2017-02-21 11:09] LABS: INTERNATIONAL NORMALIZED RATIO 1.8 RATIO; PROTHROMBIN TIME - PATIENT 20.2 SEC (9.8-11.6)
[2017-02-21] MEDS: ASCORBIC ACID 500 MG TAB PEG SCH ×2 (11:11→22:04)
[2017-02-21] MEDS: LISINOPRIL 5 MG TAB PO SCH (18:03)
[2017-02-21] MEDS: WARFARIN SOD 4 MG TAB PO SCH (18:03)
--- NOTE | 2017-02-21 20:04 | HHI.PR ---
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 Has episodes of Cheyyne Suazo breathing Trach secretions thick no new complaint reported Objective Vital Signs Vital Signs Date Time Temp Pulse Resp B/P Pulse Ox O2 Delivery O2 Flow Rate FiO2 02/21/17 16:45 99 T-piece 28 02/21/17 16:19 96.9 94 22 138/79 98 02/21/17 12:27 96.3 85 20 112/77 100 02/21/17 08:15 97 5.00 28 02/21/17 08:15 97 T-piece 5.00 02/21/17 08:07 97.2 85 20 130/88 98 02/21/17 06:09 81 02/21/17 05:00 97.9 86 22 128/76 97 02/21/17 00:30 98.8 87 21 135/75 100 02/20/17 21:45 97.1 96 20 125/80 99 02/20/17 21:02 99 T-piece 5.00 28 I/O 02/20/17 02/20/17 02/20/17 02/21/17 02/21/17 02/21/17 07:00 15:00 23:00 07:00 15:00 23:00 Intake Total 0 ml 0 ml 532 ml 493 ml Output Total 100 ml 650 ml 600 ml 450 ml Balance -100 ml -650 ml -600 ml 82 ml 493 ml Intake Oral 0 ml 0 ml Tube Feeding 332 ml 293 ml Other 200 ml 200 ml Output Urine Total 100 ml 650 ml 600 ml 450 ml # Voids 7 # Bowel Movements 0 1 1 0 Result Diagram: 02/19/17 1635 Objective Remarks GENERAL: MBMN WF, on Trach collar SKIN: Warm and dry. HEAD: Normocephalic. EYES: No scleral icterus. No injection or drainage. NECK: Supple, trachea midline. No JVD or lymphadenopathy. has trach CARDIOVASCULAR: Regular rate and rhythm without murmurs, gallops, or rubs. RESPIRATORY: Breath sounds equal bilaterally. No accessory muscle use. GASTROINTESTINAL: Abdomen soft, non-tender, nondistended. has PEG MUSCULOSKELETAL: No cyanosis, or edema. BACK: Nontender without obvious deformity. No CVA tenderness. A/P Assessment and Plan RF, S/P Trach CVA Arango arango disease CAD COPD SZ disorder PLAN: Aerosol nebs Cont trach collar supplement 02 Trach suction prn. tolerates TF PARTHA RN at [facility] Marx MD Feb 21, 2017 20:03
[2017-02-22] VITALS (9 sets, daily range): BP systolic 133–150; BP diastolic 76–98; PULSE 78–92; RESP 19–22; TEMP 95.4–97.4; O2SAT 96–100
[2017-02-22] MEDS: ALBUMIN HUMAN 5% 12.5 GM/250 ML BOTTLE IV SCH ×2 (02:12→12:41)
[2017-02-22] MEDS: CHLORHEXIDINE GLUCONATE 2 % 1 PACK (2 CLOTHS) TOP SCH (03:10)
[2017-02-22] MEDS: FREE WATER G-TUBE SCH ×5 (05:18→22:16)
[2017-02-22] MEDS: CHLORHEXIDINE 0.12% (ORAL KIT) 15 ML CUP MT SCH ×2 (08:00→22:15)
[2017-02-22] MEDS: SENNOSIDES SYRUP 8.8 MG/5 ML CUP G-TUBE SCH ×2 (08:27→22:15)
[2017-02-22] MEDS: FUROSEMIDE 20 MG/2 ML VIAL IV PUSH SCH ×2 (08:30→22:16)
[2017-02-22] MEDS: carBAMazepine SUSP 200 MG/10 ML UDC PEG SCH ×2 (08:32→22:15)
[2017-02-22] MEDS: FERROUS SULFATE 300 MG /5ML UDC PEG SCH ×2 (08:32→22:15)
[2017-02-22] MEDS: LACTULOSE SYRUP 20 GM/30 ML CUP G-TUBE SCH ×3 (08:32→17:23)
[2017-02-22] MEDS: ATORVASTATIN 40 MG TAB G-TUBE SCH (08:33)
[2017-02-22] MEDS: BROMOCRIPTINE MESYLATE 2.5 MG TAB OG-TUBE SCH ×2 (08:33→22:15)
[2017-02-22] MEDS: METOPROLOL TARTRATE 25 MG TAB G-TUBE SCH ×2 (08:33→22:16)
[2017-02-22] MEDS: levETIRAcetam 500 MG/5 ML UDC NG SCH ×2 (08:33→22:15)
[2017-02-22] MEDS: FOLIC ACID 1 MG TAB OG-TUBE SCH (08:33)
[2017-02-22] MEDS: ASPIRIN 81 MG CHEW TAB NG SCH (08:33)
[2017-02-22] MEDS: ASCORBIC ACID 500 MG TAB PEG SCH ×2 (08:33→22:16)
[2017-02-22] MEDS: FAMOTIDINE 20 MG TAB NG SCH ×2 (08:33→22:16)
[2017-02-22] MEDS: POVIDONE IODINE 10% OINT 30 GM TUBE TOPICAL SCH (08:34)
[2017-02-22] MEDS: COLLAGENASE OINT 30 GM TUBE TOPICAL SCH (08:34)
[2017-02-22] MEDS: SODIUM HYPOCHLORITE 0.25% 500 ML BTL TOPICAL SCH (08:34)
[2017-02-22] MEDS: JUVEN POWDER 1 PACK G-TUBE SCH ×2 (08:40→22:15)
[2017-02-22] MEDS: SODIUM CHLORIDE 0.9% FLUSH 10 ML FLUSH IV FLUSH SCH ×2 (08:43→22:16)
[2017-02-22 08:50] LABS: INTERNATIONAL NORMALIZED RATIO 1.6 RATIO; PROTHROMBIN TIME - PATIENT 17.9 SEC (9.8-11.6)
[2017-02-22 09:15] LABS: POTASSIUM 3.6 MEQ/L (3.5-5.1)
--- NOTE | 2017-02-22 10:01 | HHI.PR ---
Subjective Remarks Follow up on patient with bilateral frontal CVA, Moyamoya disease, seizure d/o, COPD, multilobar pneumonia and acute respiratory failure. Patient seen and examined. Spoke with RN at bedside, no acute events overnight. Continued liquid stool with use of Lactulose. Ammonia slightly elevated. Afebrile. VSS. Objective Vitals Vital Signs Date Time Temp Pulse Resp B/P Pulse Ox O2 Delivery O2 Flow Rate FiO2 02/22/17 09:44 97 T-piece 28 02/22/17 09:44 97 T-piece 28 02/22/17 08:11 95.4 79 22 133/77 96 02/22/17 07:06 80 02/22/17 06:00 96.2 78 21 136/86 99 02/22/17 03:20 92 02/22/17 02:16 98 T-Piece 5.00 28 Humidified 02/22/17 00:39 96.5 79 21 143/98 99 02/21/17 20:31 96.6 90 20 126/67 99 02/21/17 16:45 99 T-piece 28 02/21/17 16:19 96.9 94 22 138/79 98 02/21/17 12:27 96.3 85 20 112/77 100 I/O 02/21/17 02/21/17 02/21/17 02/22/17 02/22/17 02/22/17 06:59 14:59 22:59 06:59 14:59 22:59 Intake Total 0 ml 532 ml 493 ml 1119 ml Output Total 600 ml 450 ml 600 ml Balance -600 ml 82 ml 493 ml 519 ml Intake Oral 0 ml Tube Feeding 332 ml 293 ml 719 ml Other 200 ml 200 ml 400 ml Output Urine Total 600 ml 450 ml 600 ml # Bowel Movements 1 0 Result Diagram: 02/19/17 1635 02/22/17 0817 Imaging Last Impressions Abdomen X-Ray 02/11/17 0000 Signed Impressions: Service Date/Time: Saturday, February 11, 2017 17:52 - CONCLUSION: Minimal colonic distention. Kenneth Frost MD FACR Catheter Change 02/10/17 0000 Signed Impressions: Service Date/Time: February 13:47 - CONCLUSION: Uncomplicated fluoroscopic guided gastrostomy tube replacement. Positioning confirmed. The tube can be used immediately. Nghia Pacheco MD Lower Extremity Ultrasound 02/01/17 0000 Signed Impressions: Service Date/Time: Wednesday, February 01, 2017 13:23 - CONCLUSION: Normal examination. Gray Veronica MD Chest X-Ray 02/01/17 0000 Signed Impressions: Service Date/Time: Wednesday, February 01, 2017 08:45 - CONCLUSION: 1. Stable tracheostomy. 2. Mild interstitial prominence may reflect slight positive fluid balance. Christiano Villagran MD Brain MRI 01/06/17 0000 Signed Impressions: Service Date/Time: January 14:19 - CONCLUSION: Continued evolutionary changes of large bilateral frontal lobe infarcts. Sami Mccarthy MD Objective Remarks GENERAL: Well-nourished, well-developed female patient lying in bed in NAD, t- collar in place. SKIN: Warm and dry. Anasarca. HEENT: Normocephalic. Pupils equal and round. No scleral icterus. No injection or drainage. No nasal bleeding or discharge. Mucous membranes pink and moist. NECK: Supple. Trachea midline. CARDIOVASCULAR: Regular rate and rhythm. S1, S2 noted. No murmur appreciated. RESPIRATORY: No accessory muscle use. Distant breath sounds noted. Breath sounds equal bilaterally. GASTROINTESTINAL: Abdomen soft, non-tender, nondistended. Normoactive bowel sounds x4. MUSCULOSKELETAL: No obvious deformities. Extremities without clubbing, cyanosis. Generalized pitting edema noted. NEUROLOGICAL: Does not track with eyes. Occasionally opens to vocal and noxious stimuli. No spontaneous movement in upper and lower extremities. Procedures PEG 11/24/2016 Percutaneous tracheostomy. 11/18/2016 Moderate encephalopathy with suggestion of left temporal region cortical irritability. No active seizures. Clinical correlation. Echocardiogram Severe dilated left ventricle. Wall thickness is normal. The left ventricular systolic function is moderately reduced with an estimated ejection fraction in the range of 35-40%. Doppler parameters are consistent with a restrictive left ventricular filling pattern indicative of decreased left ventricular diastolic compliance and increase left atrial pressure (grade 3 diastolic dysfunction). There is severe tricuspid regurgitation. There is severe pulmonary hypertension present ( > 70 mmHg). Severe mitral valve regurgitation. Urinary Catheter: Yes Assessment to: Continue Brown insert reason: Stage III/IV Press Ulcer Date of Insertion: Jan 29, 2017 A/P Problem List: (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 She was was admitted to [facility] emergency department 11/04/16 with difficulty getting her thoughts together. She was found to have multifocal nonhemorrhagic infarcts in left frontal and parietal regions, right frontal lobe and history of moyamoya disease. She was initially awake and following commands with weakness of RLE and some aphasia. She was transferred to [facility] where he had an cerebral angiogram consistent with moyamoya. There were plans to perform extracranial/intracranial bypass. However she had a seizure and ended up being intubated for status either 4/4 or 4/5.. She was found to have a new right frontal infarct area and she was started on Dilantin and Keppra and it was felt that she would not be a candidate for intervention. She has been intubated 9- 10 days and apparently she has been tolerating C Pap trials to some extent but mental status prevents extubation. Treating team was discussing with family trach/PEG. Apparently family requested transfer back to [place] because they live locally here and wanted her closer to home. Patient remained under critical care medicine until 12/24/2016. Bilateral large frontal CVA Moyamoya Disease Seizure Disorder - Continue Keppra 1,500 mg q12h - Continue Tegretol 200 mg q12h - Follow for seizure activity - Continue aspirin - Continue Bromocriptine - Tegretol level WNL. Hyperammonemia: 70 --> 49 --> 56 --> 54 --> 30 --> 37. Lactulose 30 ml PO TID. Positive BM noted. RN to please continue administration. Systolic and diastolic heart failure, acute - Continue Lasix and MACKENZIE inhibitor. - Monitor electrolytes and renal function - BMP ordered for tomorrow am, follow. Atrial Fibrillation, acute: Controlled. - INR 1.6. Follow daily INR. Pharmacy to manage, dose 10 mg of Coumadin today. Watch closely. - Continue Coumadin. Oral thrush, resolved: Nystatin swish and swallow dc'd. QID. Hyponatremia, resolved: Na 129 --> 137. BMP reviewed today, 135. Continue FWF. Hyperkalemia, resolved: K 5.5 --> 3.8. Stable today on BMP, 3.6. Anasarca: Continue Albumin 5% 12.5g q 12 hrs followed by Lasix 20 mg IV with Lasix being held for SBP less than 110. Will decrease medications when improvement seen. Still present. Follow clinically. Chronic Respiratory Failure Chronic obstructive pulmonary disease Multilobar pneumonia - Pulmonology following, appreciate input. - Continue tracheostomy with supplemental oxygen. - Tobramycin completed, course ended on 01/20/17. - Levsin PRN for increased secretions. Dysphagia Hypoalbuminemia - PEG placed. Continue TF. - Jevity 1.5 through PEG tube with Corby supplementation. Tolerating well. Sacral/Coccyx wound - Continue specialty bed. - Wound care following, appreciate input. Last note with recommendations to pack wound daily with Santyl to sacrococcygeal wound. On right buttock, right ischium apply single layer Xeroform over open wound beds. Prep periwounds with Cavilon skin prep. Cover Xeroform with bordered gauze dressing. Change dressings EVERY OTHER DAY and PRN for dislodgement or soiling. GI Prophylaxis: Pepcid. DVT prophylaxis: SCDs. Coumadin. Discussed with Dr. Yuan Discharge Planning Patient will need long-term care facility. CM continuing to seek placement. Last CM note:02/22/17- No accepting facility at this time. Barrier: payer is Medicaid and pt is too expensive with PEG and trach. Possibly can be placed with one or the other but not both. Jackie Walsh Feb 22, 2017 10:01
[2017-02-22] MEDS: WARFARIN SOD 4 MG TAB PO SCH (15:34)
[2017-02-22] MEDS: LISINOPRIL 5 MG TAB PO SCH (15:34)
[2017-02-22] MEDS ORDERED: WARFARIN SOD 2 MG TAB PO ONE (16:00)
--- NOTE | 2017-02-22 19:16 | HHI.PR ---
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 Has episodes of Cheyyne Suazo breathing Trach secretions thick DW RN at BS Objective Vital Signs Vital Signs Date Time Temp Pulse Resp B/P Pulse Ox O2 Delivery O2 Flow Rate FiO2 02/22/17 16:27 97.2 86 20 146/79 100 02/22/17 12:47 100 T-Piece 5.00 28 Humidified 02/22/17 12:40 97.4 79 22 139/77 99 02/22/17 09:44 97 T-piece 28 02/22/17 09:44 97 T-piece 28 02/22/17 08:11 95.4 79 22 133/77 96 02/22/17 07:06 80 02/22/17 06:00 96.2 78 21 136/86 99 02/22/17 03:20 92 02/22/17 02:16 98 T-Piece 5.00 28 Humidified 02/22/17 00:39 96.5 79 21 143/98 99 02/21/17 20:31 96.6 90 20 126/67 99 I/O 02/21/17 02/21/17 02/21/17 02/22/17 02/22/17 02/22/17 07:00 15:00 23:00 07:00 15:00 23:00 Intake Total 0 ml 532 ml 493 ml 1119 ml 200 ml 1002 ml Output Total 600 ml 450 ml 600 ml 400 ml Balance -600 ml 82 ml 493 ml 519 ml -200 ml 1002 ml Intake Oral 0 ml IV Total 250 ml Tube Feeding 332 ml 293 ml 719 ml 552 ml Other 200 ml 200 ml 400 ml 200 ml 200 ml Output Urine Total 600 ml 450 ml 600 ml 400 ml # Bowel Movements 1 0 1 Result Diagram: 02/19/17 1635 02/22/17 0817 Objective Remarks GENERAL: MBMN WF, on Trach collar SKIN: Warm and dry. HEAD: Normocephalic. EYES: No scleral icterus. No injection or drainage. NECK: Supple, trachea midline. No JVD or lymphadenopathy. has trach CARDIOVASCULAR: Regular rate and rhythm without murmurs, gallops, or rubs. RESPIRATORY: Breath sounds equal bilaterally. No accessory muscle use. GASTROINTESTINAL: Abdomen soft, non-tender, nondistended. has PEG MUSCULOSKELETAL: No cyanosis, or edema. BACK: Nontender without obvious deformity. No CVA tenderness. A/P Assessment and Plan RF, S/P Trach CVA Arango arango disease CAD COPD SZ disorder PLAN: Aerosol nebs Cont trach collar supplement 02 Trach suction prn. tolerates TF PARTHA RN at [facility] Marx MD Feb 22, 2017 19:16
[2017-02-23] VITALS (8 sets, daily range): BP systolic 104–148; BP diastolic 59–83; PULSE 80–95; RESP 19–20; TEMP 95.8–98.2; O2SAT 96–100
[2017-02-23] MEDS: ALBUMIN HUMAN 5% 12.5 GM/250 ML BOTTLE IV SCH ×2 (01:23→15:13)
[2017-02-23] MEDS: CHLORHEXIDINE GLUCONATE 2 % 1 PACK (2 CLOTHS) TOP SCH (04:29)
[2017-02-23] MEDS: FREE WATER G-TUBE SCH ×3 (05:08→17:40)
[2017-02-23 08:00] LABS: INTERNATIONAL NORMALIZED RATIO 1.6 RATIO
[2017-02-23] MEDS: CHLORHEXIDINE 0.12% (ORAL KIT) 15 ML CUP MT SCH ×2 (08:00→20:00)
[2017-02-23] MEDS: COLLAGENASE OINT 30 GM TUBE TOPICAL SCH (08:26)
[2017-02-23] MEDS: SENNOSIDES SYRUP 8.8 MG/5 ML CUP G-TUBE SCH ×2 (08:26→22:51)
[2017-02-23] MEDS: JUVEN POWDER 1 PACK G-TUBE SCH ×2 (09:00→21:00)
[2017-02-23] MEDS: POVIDONE IODINE 10% OINT 30 GM TUBE TOPICAL SCH (09:00)
[2017-02-23] MEDS: carBAMazepine SUSP 200 MG/10 ML UDC PEG SCH ×2 (10:46→22:51)
[2017-02-23] MEDS: FOLIC ACID 1 MG TAB OG-TUBE SCH (10:46)
[2017-02-23] MEDS: ATORVASTATIN 40 MG TAB G-TUBE SCH (10:46)
[2017-02-23] MEDS: BROMOCRIPTINE MESYLATE 2.5 MG TAB OG-TUBE SCH ×2 (10:46→22:52)
[2017-02-23] MEDS: ASCORBIC ACID 500 MG TAB PEG SCH ×2 (10:46→22:52)
[2017-02-23] MEDS: LACTULOSE SYRUP 20 GM/30 ML CUP G-TUBE SCH ×3 (10:46→17:40)
[2017-02-23] MEDS: levETIRAcetam 500 MG/5 ML UDC NG SCH ×2 (10:46→22:50)
[2017-02-23] MEDS: METOPROLOL TARTRATE 25 MG TAB G-TUBE SCH ×2 (10:46→22:52)
[2017-02-23] MEDS: FERROUS SULFATE 300 MG /5ML UDC PEG SCH ×2 (10:46→22:51)
[2017-02-23] MEDS: FAMOTIDINE 20 MG TAB NG SCH ×2 (10:46→22:53)
[2017-02-23] MEDS: ASPIRIN 81 MG CHEW TAB NG SCH (10:47)
[2017-02-23] MEDS: SODIUM HYPOCHLORITE 0.25% 500 ML BTL TOPICAL SCH (10:47)
[2017-02-23] MEDS: SODIUM CHLORIDE 0.9% FLUSH 10 ML FLUSH IV FLUSH SCH ×2 (10:47→23:10)
--- NOTE | 2017-02-23 13:33 | HHI.PR ---
Subjective Remarks Follow up on patient with bilateral frontal CVA, Moyamoya disease, seizure d/o, COPD, multilobar pneumonia and acute respiratory failure. Patient seen and examined. Lying in bed comfortably with presence of t-collar. Spoke to RN, no acute events overnight. Thick secretions noted. Afebrile. Anasarca continued. Objective Vitals Vital Signs Date Time Temp Pulse Resp B/P Pulse Ox O2 Delivery O2 Flow Rate FiO2 02/23/17 12:22 96.2 89 20 141/83 99 02/23/17 11:50 100 T-Piece 5.00 28 Humidified 02/23/17 10:39 95 02/23/17 10:29 100 T-piece 28 02/23/17 08:03 95.8 82 20 104/59 98 02/23/17 04:39 97.2 80 19 110/66 99 02/23/17 01:53 91 02/23/17 00:36 98.2 80 19 126/67 96 02/22/17 20:26 97.2 89 19 150/76 97 02/22/17 19:35 99 T-Piece 5.00 28 Humidified 02/22/17 16:27 97.2 86 20 146/79 100 I/O 02/22/17 02/22/17 02/22/17 02/23/17 02/23/17 02/23/17 06:59 14:59 22:59 06:59 14:59 22:59 Intake Total 1119 ml 200 ml 1002 ml 1160 ml 200 ml Output Total 600 ml 400 ml 350 ml Balance 519 ml -200 ml 652 ml 1160 ml 200 ml IV Total 250 ml 100 ml Tube Feeding 719 ml 552 ml 660 ml Other 400 ml 200 ml 200 ml 400 ml 200 ml Output Urine Total 600 ml 400 ml 350 ml # Bowel Movements 2 1 Result Diagram: 02/19/17 1635 02/22/17 0817 Imaging Last Impressions Abdomen X-Ray 02/11/17 0000 Signed Impressions: Service Date/Time: Saturday, February 11, 2017 17:52 - CONCLUSION: Minimal colonic distention. Kenneth Frost MD FACR Catheter Change 02/10/17 0000 Signed Impressions: Service Date/Time: February 13:47 - CONCLUSION: Uncomplicated fluoroscopic guided gastrostomy tube replacement. Positioning confirmed. The tube can be used immediately. Nghia Pacheco MD Lower Extremity Ultrasound 02/01/17 0000 Signed Impressions: Service Date/Time: Wednesday, February 01, 2017 13:23 - CONCLUSION: Normal examination. Gray Veronica MD Chest X-Ray 02/01/17 0000 Signed Impressions: Service Date/Time: Wednesday, February 01, 2017 08:45 - CONCLUSION: 1. Stable tracheostomy. 2. Mild interstitial prominence may reflect slight positive fluid balance. Christiano Villagran MD Brain MRI 01/06/17 0000 Signed Impressions: Service Date/Time: January 14:19 - CONCLUSION: Continued evolutionary changes of large bilateral frontal lobe infarcts. Sami Mccarthy MD Objective Remarks GENERAL: Well-nourished, well-developed female patient lying in bed in NAD, t- collar in place. SKIN: Warm and dry. Anasarca. HEENT: Normocephalic. Pupils equal and round. No scleral icterus. No injection or drainage. No nasal bleeding or discharge. Mucous membranes pink and moist. NECK: Supple. Trachea midline. CARDIOVASCULAR: Regular rate and rhythm. S1, S2 noted. No murmur appreciated. RESPIRATORY: No accessory muscle use. Distant breath sounds noted. Breath sounds equal bilaterally. GASTROINTESTINAL: Abdomen soft, non-tender, nondistended. Normoactive bowel sounds x4. MUSCULOSKELETAL: No obvious deformities. Extremities without clubbing, cyanosis. Generalized pitting edema noted. NEUROLOGICAL: Does not track with eyes. Occasionally opens to vocal and noxious stimuli. No spontaneous movement in upper and lower extremities. Procedures PEG 11/24/2016 Percutaneous tracheostomy. 11/18/2016 Moderate encephalopathy with suggestion of left temporal region cortical irritability. No active seizures. Clinical correlation. Echocardiogram Severe dilated left ventricle. Wall thickness is normal. The left ventricular systolic function is moderately reduced with an estimated ejection fraction in the range of 35-40%. Doppler parameters are consistent with a restrictive left ventricular filling pattern indicative of decreased left ventricular diastolic compliance and increase left atrial pressure (grade 3 diastolic dysfunction). There is severe tricuspid regurgitation. There is severe pulmonary hypertension present ( > 70 mmHg). Severe mitral valve regurgitation. Urinary Catheter: Yes Assessment to: Continue Brown insert reason: Stage III/IV Press Ulcer Date of Insertion: Jan 29, 2017 A/P Problem List: (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 She was was admitted to [facility] emergency department 11/04/16 with difficulty getting her thoughts together. She was found to have multifocal nonhemorrhagic infarcts in left frontal and parietal regions, right frontal lobe and history of moyamoya disease. She was initially awake and following commands with weakness of RLE and some aphasia. She was transferred to [facility] where he had an cerebral angiogram consistent with moyamoya. There were plans to perform extracranial/intracranial bypass. However she had a seizure and ended up being intubated for status either 4/4 or 4/5.. She was found to have a new right frontal infarct area and she was started on Dilantin and Keppra and it was felt that she would not be a candidate for intervention. She has been intubated 9- 10 days and apparently she has been tolerating C Pap trials to some extent but mental status prevents extubation. Treating team was discussing with family trach/PEG. Apparently family requested transfer back to [place] because they live locally here and wanted her closer to home. Patient remained under critical care medicine until 12/24/2016. Bilateral large frontal CVA Moyamoya Disease Seizure Disorder - Continue Keppra 1,500 mg q12h - Continue Tegretol 200 mg q12h - Follow for seizure activity - Continue aspirin - Continue Bromocriptine - Tegretol level WNL. Hyperammonemia: 70 --> 49 --> 56 --> 54 --> 30 --> 37. Lactulose 30 ml PO TID. Positive BM noted. RN to please continue administration. Systolic and diastolic heart failure, acute - Continue Lasix and MACKENZIE inhibitor. - Monitor electrolytes and renal function Atrial Fibrillation, acute: Controlled. - INR 1.6. Follow daily INR. Pharmacy to manage, dose 10 mg of Coumadin today. Watch closely. - Continue Coumadin. Oral thrush, resolved: Nystatin swish and swallow dc'd. QID. Hyponatremia, resolved: Na 129 --> 135. Continue FWF. Hyperkalemia, resolved: K 5.5 --> 3.6. Anasarca: Continue Albumin 5% 12.5g q 12 hrs. Change Lasix 20 mg IV from BID To TID. Anasarca still present. Follow clinically. Chronic Respiratory Failure Chronic obstructive pulmonary disease Multilobar pneumonia - Pulmonology following, appreciate input. - Continue tracheostomy with supplemental oxygen. - Tobramycin completed, course ended on 01/20/17. - Levsin PRN for increased secretions. Dysphagia Hypoalbuminemia - PEG placed. Continue TF. - Jevity 1.5 through PEG tube with Corby supplementation. Tolerating well. Sacral/Coccyx wound - Continue specialty bed. - Wound care following, appreciate input. Last note with recommendations to pack wound daily with Santyl to sacrococcygeal wound. On right buttock, right ischium apply single layer Xeroform over open wound beds. Prep periwounds with Cavilon skin prep. Cover Xeroform with bordered gauze dressing. Change dressings EVERY OTHER DAY and PRN for dislodgement or soiling. GI Prophylaxis: Pepcid. DVT prophylaxis: SCDs. Coumadin. Discussed with Dr. Yuan Discharge Planning Patient will need long-term care facility. CM continuing to seek placement. Last CM note:02/22/17- No accepting facility at this time. Barrier: payer is Medicaid and pt is too expensive with PEG and trach. Possibly can be placed with one or the other but not both. Jackie Walsh Feb 23, 2017 13:33
[2017-02-23] MEDS: LISINOPRIL 5 MG TAB PO SCH (15:12)
[2017-02-23] MEDS: FUROSEMIDE 20 MG/2 ML VIAL IV PUSH SCH ×2 (15:12→22:53)
[2017-02-23] MEDS: WARFARIN SOD 4 MG TAB PO SCH (15:12)
[2017-02-23] MEDS ORDERED: WARFARIN SOD 2 MG TAB PO ONE (16:00)
--- NOTE | 2017-02-23 18:27 | HHI.PR ---
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 Trach secretions thick DW RN at BS Objective Vital Signs Vital Signs Date Time Temp Pulse Resp B/P Pulse Ox O2 Delivery O2 Flow Rate FiO2 02/23/17 17:50 T-piece 6.00 28 02/23/17 16:19 96.0 82 20 148/80 100 02/23/17 12:22 96.2 89 20 141/83 99 02/23/17 11:50 100 T-Piece 5.00 28 Humidified 02/23/17 10:39 95 02/23/17 10:29 100 T-piece 28 02/23/17 08:03 95.8 82 20 104/59 98 02/23/17 04:39 97.2 80 19 110/66 99 02/23/17 01:53 91 02/23/17 00:36 98.2 80 19 126/67 96 02/22/17 20:26 97.2 89 19 150/76 97 02/22/17 19:35 99 T-Piece 5.00 28 Humidified I/O 02/22/17 02/22/17 02/22/17 02/23/17 02/23/17 02/23/17 07:00 15:00 23:00 07:00 15:00 23:00 Intake Total 1119 ml 200 ml 1002 ml 1160 ml 200 ml 1162 ml Output Total 600 ml 400 ml 350 ml Balance 519 ml -200 ml 652 ml 1160 ml 200 ml 1162 ml IV Total 250 ml 100 ml 250 ml Tube Feeding 719 ml 552 ml 660 ml 712 ml Other 400 ml 200 ml 200 ml 400 ml 200 ml 200 ml Output Urine Total 600 ml 400 ml 350 ml # Bowel Movements 2 2 1 Result Diagram: 02/19/17 1635 02/22/17 0817 Objective Remarks GENERAL: MBMN WF, on Trach collar SKIN: Warm and dry. HEAD: Normocephalic. EYES: No scleral icterus. No injection or drainage. NECK: Supple, trachea midline. No JVD or lymphadenopathy. has trach CARDIOVASCULAR: Regular rate and rhythm without murmurs, gallops, or rubs. RESPIRATORY: Breath sounds equal bilaterally. No accessory muscle use. GASTROINTESTINAL: Abdomen soft, non-tender, nondistended. has PEG MUSCULOSKELETAL: No cyanosis, or edema. BACK: Nontender without obvious deformity. No CVA tenderness. A/P Assessment and Plan RF, S/P Trach CVA Arango arango disease CAD COPD SZ disorder PLAN: Aerosol nebs Cont trach collar supplement 02, keep sat >90% Trach suction prn. tolerates TF PARTHA RN at [facility] MD Feb 23, 2017 18:27
[2017-02-24] VITALS (10 sets, daily range): BP systolic 113–148; BP diastolic 60–94; PULSE 72–99; RESP 18–22; TEMP 97–98.2; O2SAT 92–100
[2017-02-24] MEDS: CHLORHEXIDINE GLUCONATE 2 % 1 PACK (2 CLOTHS) TOP SCH (04:00)
[2017-02-24] MEDS: FREE WATER G-TUBE SCH ×4 (04:41→17:45)
[2017-02-24] MEDS: ALBUMIN HUMAN 5% 12.5 GM/250 ML BOTTLE IV SCH ×2 (04:42→14:25)
[2017-02-24] MEDS: FUROSEMIDE 20 MG/2 ML VIAL IV PUSH SCH ×3 (06:24→21:45)
[2017-02-24] MEDS: SENNOSIDES SYRUP 8.8 MG/5 ML CUP G-TUBE SCH ×2 (07:57→21:42)
[2017-02-24] MEDS: CHLORHEXIDINE 0.12% (ORAL KIT) 15 ML CUP MT SCH ×2 (07:57→21:46)
[2017-02-24] MEDS: METOPROLOL TARTRATE 25 MG TAB G-TUBE SCH ×2 (08:09→21:46)
[2017-02-24] MEDS: ATORVASTATIN 40 MG TAB G-TUBE SCH (08:09)
[2017-02-24] MEDS: FAMOTIDINE 20 MG TAB NG SCH ×2 (08:09→21:45)
[2017-02-24] MEDS: ASCORBIC ACID 500 MG TAB PEG SCH ×2 (08:09→21:44)
[2017-02-24] MEDS: FOLIC ACID 1 MG TAB OG-TUBE SCH (08:09)
[2017-02-24] MEDS: BROMOCRIPTINE MESYLATE 2.5 MG TAB OG-TUBE SCH ×2 (08:10→21:44)
[2017-02-24] MEDS: FERROUS SULFATE 300 MG /5ML UDC PEG SCH ×2 (08:10→21:44)
[2017-02-24] MEDS: JUVEN POWDER 1 PACK G-TUBE SCH ×2 (08:10→21:42)
[2017-02-24] MEDS: levETIRAcetam 500 MG/5 ML UDC NG SCH ×2 (08:10→21:44)
[2017-02-24] MEDS: carBAMazepine SUSP 200 MG/10 ML UDC PEG SCH ×2 (08:10→21:44)
[2017-02-24] MEDS: SODIUM CHLORIDE 0.9% FLUSH 10 ML FLUSH IV FLUSH SCH ×2 (08:10→22:06)
[2017-02-24] MEDS: ASPIRIN 81 MG CHEW TAB NG SCH (08:10)
[2017-02-24] MEDS: LACTULOSE SYRUP 20 GM/30 ML CUP G-TUBE SCH ×3 (08:10→17:45)
[2017-02-24] MEDS: SODIUM HYPOCHLORITE 0.25% 500 ML BTL TOPICAL SCH (08:11)
[2017-02-24] MEDS: POVIDONE IODINE 10% OINT 30 GM TUBE TOPICAL SCH (08:11)
[2017-02-24 08:40] LABS: INTERNATIONAL NORMALIZED RATIO 1.8 RATIO
--- NOTE | 2017-02-24 10:12 | HHI.PR ---
Subjective Remarks Follow up on patient with bilateral frontal CVA, Moyamoya disease, seizure d/o, COPD, multilobar pneumonia and acute respiratory failure. Patient seen and examined. Patient nonverbal. Lying in bed. (+)T piece with thick secretions. Discussed with nursing staff, no acute issues. Tolerating tube feeds. Objective Vitals Vital Signs Date Time Temp Pulse Resp B/P Pulse Ox O2 Delivery O2 Flow Rate FiO2 02/24/17 08:53 100 T-piece 5.00 28 02/24/17 08:00 97.7 90 22 128/60 100 02/24/17 07:06 90 02/24/17 04:00 97.0 92 22 142/94 100 02/24/17 01:18 95 T-piece 6.00 28 02/24/17 00:00 98.2 72 18 115/74 92 02/23/17 20:00 96 T-Piece 5.00 28 02/23/17 17:50 T-piece 6.00 28 02/23/17 16:19 96.0 82 20 148/80 100 02/23/17 12:22 96.2 89 20 141/83 99 02/23/17 11:50 100 T-Piece 5.00 28 Humidified 02/23/17 10:39 95 02/23/17 10:29 100 T-piece 28 I/O 02/23/17 02/23/17 02/23/17 02/24/17 02/24/17 02/24/17 07:00 15:00 23:00 07:00 15:00 23:00 Intake Total 1160 ml 200 ml 1282 ml 408 ml Output Total 1000 ml Balance 1160 ml 200 ml 1282 ml -592 ml IV Total 100 ml 250 ml Tube Feeding 660 ml 712 ml 208 ml Other 400 ml 200 ml 320 ml 200 ml Output Urine Total 1000 ml # Voids 2 # Bowel Movements 2 1 Result Diagram: 02/22/17816 Imaging Last Impressions Abdomen X-Ray 02/11/17 0000 Signed Impressions: Service Date/Time: Saturday, February 11, 2017 17:52 - CONCLUSION: Minimal colonic distention. Kenneth Frost MD FACR Catheter Change 02/10/17 0000 Signed Impressions: Service Date/Time: February 13:47 - CONCLUSION: Uncomplicated fluoroscopic guided gastrostomy tube replacement. Positioning confirmed. The tube can be used immediately. Nghia Pacheco MD Lower Extremity Ultrasound 02/01/17 0000 Signed Impressions: Service Date/Time: Wednesday, February 01, 2017 13:23 - CONCLUSION: Normal examination. Gray Veronica MD Chest X-Ray 02/01/17 0000 Signed Impressions: Service Date/Time: Wednesday, February 01, 2017 08:45 - CONCLUSION: 1. Stable tracheostomy. 2. Mild interstitial prominence may reflect slight positive fluid balance. Christiano Villagran MD Brain MRI 01/06/17 0000 Signed Impressions: Service Date/Time: January 14:19 - CONCLUSION: Continued evolutionary changes of large bilateral frontal lobe infarcts. Sami Mccarthy MD Objective Remarks GENERAL: WDWN female, lying in hospital bed. T piece in place. Remains nonverbal. Does not open her eyes. Does not follow any commands. SKIN: Warm and dry. HEENT: Normocephalic. No scleral icterus. No injection or drainage. MMM. NECK: Trachea midline. T piece in place. CARDIOVASCULAR: Regular rate and rhythm without murmurs, gallops, or rubs. RESPIRATORY: Distant breath sounds noted. BS equal bilaterally. No accessory muscle use. GASTROINTESTINAL: Abdomen soft, non-tender. Mildly distended. PEG in place, site with some mild erythema. MUSCULOSKELETAL: Generalized edema noted. NEUROLOGICAL: Nonverbal. Does not respond to voice or noxious stimulus. No spontaneous movement appreciated. Procedures PEG 11/24/2016 Percutaneous tracheostomy. 11/18/2016 Moderate encephalopathy with suggestion of left temporal region cortical irritability. No active seizures. Clinical correlation. Echocardiogram Severe dilated left ventricle. Wall thickness is normal. The left ventricular systolic function is moderately reduced with an estimated ejection fraction in the range of 35-40%. Doppler parameters are consistent with a restrictive left ventricular filling pattern indicative of decreased left ventricular diastolic compliance and increase left atrial pressure (grade 3 diastolic dysfunction). There is severe tricuspid regurgitation. There is severe pulmonary hypertension present ( > 70 mmHg). Severe mitral valve regurgitation. Medications and IVs Current Medications Medications (Trade) Dose Ordered Sig/Ora Route Start Time Stop Time Status Last Admin (Peridex 0.12% Liq) 15 ml BID@08,20 MT 11/18/16 08:00 02/24/17 07:57 (NS Flush) 2 ml BID IV FLUSH 11/18/16 09:00 02/24/17 08:10 (Morphine Inj) 2 mg Q2H PRN IV 11/18/16 03:30 01/16/17 08:23 (Zofran Inj) 4 mg Q6H PRN IV 11/18/16 03:30 11/26/16 03:20 Miscellaneous Information 1 Q361D XX 11/18/16 03:30 11/18/16 03:30 (Chlorhexidine 2% Cloth) 3 pack Taper DAILY@04 TOP 11/18/16 04:00 11/14/17 03:59 02/15/17 04:00 (Chlorhexidine 2% Cloth) 3 pack UNSCH PRN TOP 11/18/16 03:30 (Aspirin Chew) 324 mg DAILY NG 11/18/16 09:00 02/24/17 08:10 (Parlodel) 2.5 mg Q12HR OG-TUBE 11/18/16 09:00 02/24/17 08:10 (Folate) 1 mg DAILY OG-TUBE 11/18/16 09:00 02/24/17 08:09 (Lopressor Inj) 5 mg Q6H PRN IV PUSH 11/23/16 22:45 01/12/17 03:20 (Dulcolax Supp) 10 mg DAILY PRN RECTAL 12/14/16 15:45 (Pepcid) 20 mg BID NG 12/21/16 21:00 02/24/17 08:09 (Keppra Liq) 1,500 mg Q12HR NG 12/21/16 21:00 02/24/17 08:10 (TEGretol LIQ) 200 mg Q12HR PEG 01/06/17 09:00 02/24/17 08:10 (Corby Powder) 1 pack BID G-TUBE 01/13/17 09:00 02/24/17 08:10 (Ferrous Sulfate Liq) 300 mg BID PEG 01/26/17 21:00 02/24/17 08:10 (Vitamin C) 500 mg BID PEG 01/26/17 21:00 02/24/17 08:09 (Free Water) 100 ml Q6HR G-TUBE 01/29/17 12:00 02/24/17 04:41 (Lopressor) 25 mg Q12HR G-TUBE 02/01/17 09:00 02/24/17 08:09 ([place] 5-325 Mg) 1 tab Q4H PRN G-TUBE 02/01/17 11:30 (Tylenol) 650 mg Q6H PRN G-TUBE 02/01/17 09:30 (Lipitor) 40 mg DAILY G-TUBE 02/01/17 09:00 02/24/17 08:09 (Levsin Liq) 0.125 mg Q4H PRN G-TUBE 02/01/17 11:15 02/18/17 20:52 (Senna Liq) 8.8 mg BID G-TUBE 02/01/17 09:00 02/23/17 22:51 (D50w (Vial) Inj) 25 ml UNSCH PRN IV PUSH 02/01/17 09:15 Glucagon 1 mg 1 mg UNSCH PRN OTHER 02/01/17 09:15 (Coumadin Consult Pharmacy) 0 ml @ 0 mls/hr UNSCH OTHER 02/01/17 09:15 (Prinivil) 5 mg DAILY@1600 PO 02/03/17 16:00 02/23/17 15:12 (Albumin 5% Inj) 12.5 gm Q12H IV 02/06/17 14:00 02/24/17 04:42 (Dakin'S 0.25% Soln) USE DAILY WITH DRESS... DAILY TOPICAL 02/12/17 18:00 02/24/17 08:11 (Betadine 10% Oint) 1 applic DAILY TOPICAL 02/15/17 09:00 02/24/17 08:11 (Coumadin) 8 mg DAILY@1600 PO 02/21/17 16:00 02/23/17 15:12 (Lactulose Liq) 30 ml TID G-TUBE 02/21/17 13:00 02/24/17 08:10 (Lasix Inj) 20 mg Q8HR IV PUSH 02/23/17 14:00 02/24/17 06:24 Date of Insertion: Jan 29, 2017 A/P Problem List: (1) 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 Status: Acute (2) Seizure ICD Code: R56.9 Status: Acute (3) CVA (cerebral vascular accident) ICD Code: I63.9 Status: Acute (4) Respiratory failure, acute ICD Code: J96.00 Status: Acute (5) COPD (chronic obstructive pulmonary disease) ICD Code: J44.9 Status: Chronic (6) Acute hypernatremia ICD Code: E87.0 Status: Resolved Assessment and Plan Ms. Rivas is a 66-year-old female with a history of stroke who was admitted to the [facility] on 11/04/2016 due to difficulty getting her thoughts together. She was found to have multifocal nonhemorrhagic infarctions in the frontal and parietal regions. She was initially awake and following commands with weakness of RLE and some aphasia. She was transferred to [facility] where he had an cerebral angiogram consistent with moyamoya. There were plans to perform extracranial/intracranial bypass. However she had a seizure and ended up being intubated for status either 11/09 or 11/10.. She was found to have a new right frontal infarct area and she was started on Dilantin and Keppra and it was felt that she would not be a candidate for intervention. She has been intubated 9-10 days and apparently she has been tolerating C Pap trials to some extent but mental status prevents extubation. Treating team was discussing with family trach/PEG. Apparently family requested transfer back to [place] because they live locally here and wanted her closer to home. Patient remained under critical care medicine until 12/24/2016. - Bilateral frontal CVA - Moyamoya - confirmed by arteriogram at [facility] October 2016. - Seizure disorder - Continue Keppra - level 38.3 01/25/17. - Continue Tegretol - Follow for seizure activity - no recent seizure activity noted - continue Aspirin daily - Continue Bromocriptine - Obtain new Keppra and Tegretol levels - Hyperammonemia - trending down - continue Lactulose 30mg TID - continue to monitor ammonia level as indicated - (+)multiple soft BMs per nursing staff - Chronic respiratory failure - COPD - Multilobar pneumonia, resolved - Pulmonary medicine following, appreciate assistance - Status post tracheostomy on 11/24/2016. Currently on T piece. - completed antibiotic course with Tobramycin, course ended on 01/20/17. - DuoNeb when necessary - Continue Levsin prn - Atrial fibrillation - rate controlled - Continue Metoprolol 25mg q12hr - Continue on Coumadin at increased dose of 10mg daily - INR 1.8. Pharmacy to dose. Continue to monitor INR. - Systolic and diastolic heart failure, acute - echocardiogram 02/02/17 shows EF 35-40%, grade 3 diastolic dysfunction, severe tricuspid regurgitation, severe pulmonary HTN and severe mitral valve regurgitation. - Continue Lasix 20mg IV q 8h and Lisinopril 5mg po daily - Monitor electrolytes and renal function - 18.7kg wt gain in past month - Anasarca - Continue Albumin 5% 12.5g q 12 hrs - Continue Lasix 20 mg IV q 8h - Dysphagia - Hypoalbuminemia - s/p PEG placement - continue Jevity 1.5 through PEG tube with Corby supplementation. - Continue TF - Sacral/Coccyx wound -Specialty bed ordered -Wound care following - per their recs, pack wound daily with Santyl to sacrococcygeal wound. On right buttock, right ischium apply single layer Xeroform over open wound beds. Prep periwounds with Cavilon skin prep. Cover Xeroform with bordered gauze dressing. Change dressings EVERY OTHER DAY and PRN for dislodgement or soiling. -continue frequent turning/off loading Q2H - Anemia, microcytic, hypochromic -hemoglobin 10.8 --> 9.9 -iron studies-iron 33, TIBC 307, % sat 10.8, ferritin 346. Continue iron supplementation. -stool hemoccult negative -monitor intermittently GI Prophylaxis: Pepcid. DVT prophylaxis: SCDs. Coumadin. Full code. SCDs. Discussed with nursing staff, patient and Dr. Yuan. Discharge Planning Patient will need long-term care facility. CM continuing to seek placement. Last CM note:02/22/17- No accepting facility at this time. Barrier: payer is Medicaid and pt is too expensive with PEG and trach. Possibly can be placed with one or the other but not both. Tova March Feb 24, 2017 10:12
--- NOTE | 2017-02-24 15:32 | HHI.PR ---
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 Trach secretions thick DW RN at BS No new complaint Objective Vital Signs Vital Signs Date Time Temp Pulse Resp B/P Pulse Ox O2 Delivery O2 Flow Rate FiO2 02/24/17 12:34 100 T-Piece 5.00 28 Humidified 02/24/17 11:55 98.2 88 20 113/62 100 02/24/17 08:53 100 T-piece 5.00 28 02/24/17 08:00 97.7 90 22 128/60 100 02/24/17 07:06 90 02/24/17 04:00 97.0 92 22 142/94 100 02/24/17 01:18 95 T-piece 6.00 28 02/24/17 00:00 98.2 72 18 115/74 92 02/23/17 20:00 96 T-Piece 5.00 28 02/23/17 17:50 T-piece 6.00 28 02/23/17 16:19 96.0 82 20 148/80 100 I/O 02/23/17 02/23/17 02/23/17 02/24/17 02/24/17 02/24/17 07:00 15:00 23:00 07:00 15:00 23:00 Intake Total 1160 ml 200 ml 1282 ml 408 ml 320 ml 250 ml Output Total 1000 ml Balance 1160 ml 200 ml 1282 ml -592 ml 320 ml 250 ml IV Total 100 ml 250 ml 250 ml Tube Feeding 660 ml 712 ml 208 ml Other 400 ml 200 ml 320 ml 200 ml 320 ml Output Urine Total 1000 ml # Voids 2 # Bowel Movements 2 1 Result Diagram: 02/22/17816 Objective Remarks GENERAL: MBMN WF, on Trach collar SKIN: Warm and dry. HEAD: Normocephalic. EYES: No scleral icterus. No injection or drainage. NECK: Supple, trachea midline. No JVD or lymphadenopathy. has trach CARDIOVASCULAR: Regular rate and rhythm without murmurs, gallops, or rubs. RESPIRATORY: Breath sounds equal bilaterally. No accessory muscle use. GASTROINTESTINAL: Abdomen soft, non-tender, nondistended. has PEG MUSCULOSKELETAL: No cyanosis, or edema. BACK: Nontender without obvious deformity. No CVA tenderness. A/P Assessment and Plan RF, S/P Trach CVA Arango arango disease CAD COPD SZ disorder PLAN: Aerosol nebs Cont trach collar supplement 02, keep sat >90% Trach suction prn. tolerates TF Vernon Marx MD Feb 24, 2017 15:32
[2017-02-24] MEDS: WARFARIN SOD 10 MG TAB PO SCH (16:21)
[2017-02-24] MEDS: LISINOPRIL 5 MG TAB PO SCH (16:21)
[2017-02-25] VITALS (9 sets, daily range): BP systolic 103–165; BP diastolic 66–82; PULSE 80–90; RESP 18–20; TEMP 97–98.1; O2SAT 96–100
[2017-02-25] MEDS: ALBUMIN HUMAN 5% 12.5 GM/250 ML BOTTLE IV SCH ×2 (02:02→13:29)
[2017-02-25] MEDS: FREE WATER G-TUBE SCH ×4 (02:03→16:29)
[2017-02-25] MEDS: CHLORHEXIDINE GLUCONATE 2 % 1 PACK (2 CLOTHS) TOP SCH (04:00)
[2017-02-25] MEDS: FUROSEMIDE 20 MG/2 ML VIAL IV PUSH SCH ×3 (05:02→21:40)
[2017-02-25] MEDS: CHLORHEXIDINE 0.12% (ORAL KIT) 15 ML CUP MT SCH ×2 (08:00→20:00)
[2017-02-25 08:06] LABS: PROTHROMBIN TIME - PATIENT 22.7 SEC (9.8-11.6)
--- NOTE | 2017-02-25 08:42 | HHI.PR ---
Subjective Remarks Follow up on patient with bilateral frontal CVA, Moyamoya disease, seizure d/o, COPD, multilobar pneumonia and acute respiratory failure. Patient seen and examined. Patient opens her eyes to voice. Does not track. Does not follow any commands. O2 sats 100%. D/W nursing staff, continues to have thick secretions. BM x 3 last night. No acute issues over night. Tolerating tube feeds. Objective Vitals Vital Signs Date Time Temp Pulse Resp B/P Pulse Ox O2 Delivery O2 Flow Rate FiO2 02/25/17 08:38 98.1 87 20 103/74 100 02/25/17 04:00 98.0 80 20 117/73 100 02/25/17 00:00 97.0 83 18 127/71 99 02/24/17 23:44 99 T-piece 28 02/24/17 20:00 91 02/24/17 20:00 97.0 84 20 141/78 100 02/24/17 19:15 100 T-Piece 5.00 28 02/24/17 16:00 98.1 99 22 148/88 100 02/24/17 12:34 100 T-Piece 5.00 28 Humidified 02/24/17 11:55 98.2 88 20 113/62 100 02/24/17 08:53 100 T-piece 5.00 28 I/O 02/24/17 02/24/17 02/24/17 02/25/17 02/25/17 02/25/17 07:00 15:00 23:00 07:00 15:00 23:00 Intake Total 408 ml 320 ml 1393 ml Output Total 1000 ml 650 ml 400 ml 975 ml Balance -592 ml -330 ml 993 ml -975 ml IV Total 250 ml Tube Feeding 208 ml 943 ml Other 200 ml 320 ml 200 ml Output Urine Total 1000 ml 650 ml 400 ml 975 ml # Voids 2 # Bowel Movements 1 3 Result Diagram: 02/22/17816 Imaging Last Impressions Abdomen X-Ray 02/11/17 0000 Signed Impressions: Service Date/Time: Saturday, February 11, 2017 17:52 - CONCLUSION: Minimal colonic distention. Kenneth Frost MD FACR Catheter Change 02/10/17 0000 Signed Impressions: Service Date/Time: February 13:47 - CONCLUSION: Uncomplicated fluoroscopic guided gastrostomy tube replacement. Positioning confirmed. The tube can be used immediately. Nghia Pacheco MD Lower Extremity Ultrasound 02/01/17 0000 Signed Impressions: Service Date/Time: Wednesday, February 01, 2017 13:23 - CONCLUSION: Normal examination. Gray Veronica MD Chest X-Ray 02/01/17 0000 Signed Impressions: Service Date/Time: Wednesday, February 01, 2017 08:45 - CONCLUSION: 1. Stable tracheostomy. 2. Mild interstitial prominence may reflect slight positive fluid balance. Christiano Villagran MD Brain MRI 01/06/17 0000 Signed Impressions: Service Date/Time: January 14:19 - CONCLUSION: Continued evolutionary changes of large bilateral frontal lobe infarcts. Sami Mccarthy MD Objective Remarks GENERAL: WDWN female, lying in hospital bed. T piece in place. Opens her eyes to voice. Does not track. Does not follow any commands. SKIN: Warm and dry. HEENT: Normocephalic. No scleral icterus. No injection or drainage. MMM. NECK: Trachea midline. T piece in place. CARDIOVASCULAR: Regular rate and rhythm without murmurs, gallops, or rubs. RESPIRATORY: Coarse BS noted. No accessory muscle use. GASTROINTESTINAL: Abdomen soft, non-tender. Mildly distended. PEG in place, site with some mild erythema. MUSCULOSKELETAL: Generalized edema noted. NEUROLOGICAL: Nonverbal. Does not respond to voice or noxious stimulus. No spontaneous movement appreciated. Procedures PEG 11/24/2016 Percutaneous tracheostomy. 11/18/2016 Moderate encephalopathy with suggestion of left temporal region cortical irritability. No active seizures. Clinical correlation. Echocardiogram Severe dilated left ventricle. Wall thickness is normal. The left ventricular systolic function is moderately reduced with an estimated ejection fraction in the range of 35-40%. Doppler parameters are consistent with a restrictive left ventricular filling pattern indicative of decreased left ventricular diastolic compliance and increase left atrial pressure (grade 3 diastolic dysfunction). There is severe tricuspid regurgitation. There is severe pulmonary hypertension present ( > 70 mmHg). Severe mitral valve regurgitation. Medications and IVs Current Medications Medications (Trade) Dose Ordered Sig/Ora Route Start Time Stop Time Status Last Admin (Peridex 0.12% Liq) 15 ml BID@08,20 MT 11/18/16 08:00 02/24/17 21:46 (NS Flush) 2 ml BID IV FLUSH 11/18/16 09:00 02/24/17 22:06 (Morphine Inj) 2 mg Q2H PRN IV 11/18/16 03:30 01/16/17 08:23 (Zofran Inj) 4 mg Q6H PRN IV 11/18/16 03:30 11/26/16 03:20 Miscellaneous Information 1 Q361D XX 11/18/16 03:30 11/18/16 03:30 (Chlorhexidine 2% Cloth) 3 pack Taper DAILY@04 TOP 11/18/16 04:00 11/14/17 03:59 02/15/17 04:00 (Chlorhexidine 2% Cloth) 3 pack UNSCH PRN TOP 11/18/16 03:30 (Aspirin Chew) 324 mg DAILY NG 11/18/16 09:00 02/24/17 08:10 (Parlodel) 2.5 mg Q12HR OG-TUBE 11/18/16 09:00 02/24/17 21:44 (Folate) 1 mg DAILY OG-TUBE 11/18/16 09:00 02/24/17 08:09 (Lopressor Inj) 5 mg Q6H PRN IV PUSH 11/23/16 22:45 01/12/17 03:20 (Dulcolax Supp) 10 mg DAILY PRN RECTAL 12/14/16 15:45 (Pepcid) 20 mg BID NG 12/21/16 21:00 02/24/17 21:45 (Keppra Liq) 1,500 mg Q12HR NG 12/21/16 21:00 02/24/17 21:44 (TEGretol LIQ) 200 mg Q12HR PEG 01/06/17 09:00 02/24/17 21:44 (Corby Powder) 1 pack BID G-TUBE 01/13/17 09:00 02/24/17 21:42 (Ferrous Sulfate Liq) 300 mg BID PEG 01/26/17 21:00 02/24/17 21:44 (Vitamin C) 500 mg BID PEG 01/26/17 21:00 02/24/17 21:44 (Free Water) 100 ml Q6HR G-TUBE 01/29/17 12:00 02/25/17 05:01 (Lopressor) 25 mg Q12HR G-TUBE 02/01/17 09:00 02/24/17 21:46 ([place] 5-325 Mg) 1 tab Q4H PRN G-TUBE 02/01/17 11:30 (Tylenol) 650 mg Q6H PRN G-TUBE 02/01/17 09:30 (Lipitor) 40 mg DAILY G-TUBE 02/01/17 09:00 02/24/17 08:09 (Levsin Liq) 0.125 mg Q4H PRN G-TUBE 02/01/17 11:15 02/18/17 20:52 (Senna Liq) 8.8 mg BID G-TUBE 02/01/17 09:00 02/24/17 21:42 (D50w (Vial) Inj) 25 ml UNSCH PRN IV PUSH 02/01/17 09:15 Glucagon 1 mg 1 mg UNSCH PRN OTHER 02/01/17 09:15 (Coumadin Consult Pharmacy) 0 ml @ 0 mls/hr UNSCH OTHER 02/01/17 09:15 (Prinivil) 5 mg DAILY@1600 PO 02/03/17 16:00 02/24/17 16:21 (Albumin 5% Inj) 12.5 gm Q12H IV 02/06/17 14:00 02/25/17 02:02 (Dakin'S 0.25% Soln) USE DAILY WITH DRESS... DAILY TOPICAL 02/12/17 18:00 02/24/17 08:11 (Betadine 10% Oint) 1 applic DAILY TOPICAL 02/15/17 09:00 02/24/17 08:11 (Lactulose Liq) 30 ml TID G-TUBE 02/21/17 13:00 02/24/17 17:45 (Lasix Inj) 20 mg Q8HR IV PUSH 02/23/17 14:00 02/25/17 05:02 (Coumadin) 10 mg DAILY@16 PO 02/24/17 16:00 02/24/17 16:21 Date of Insertion: Jan 29, 2017 A/P Problem List: (1) 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 Status: Acute (2) Seizure ICD Code: R56.9 Status: Acute (3) CVA (cerebral vascular accident) ICD Code: I63.9 Status: Acute (4) Respiratory failure, acute ICD Code: J96.00 Status: Acute (5) COPD (chronic obstructive pulmonary disease) ICD Code: J44.9 Status: Chronic (6) Acute hypernatremia ICD Code: E87.0 Status: Resolved Assessment and Plan Ms. Rivas is a 66-year-old female with a history of stroke who was admitted to the [facility] on 11/04/2016 due to difficulty getting her thoughts together. She was found to have multifocal nonhemorrhagic infarctions in the frontal and parietal regions. She was initially awake and following commands with weakness of RLE and some aphasia. She was transferred to [facility] where he had an cerebral angiogram consistent with moyamoya. There were plans to perform extracranial/intracranial bypass. However she had a seizure and ended up being intubated for status either 11/09 or 11/10.. She was found to have a new right frontal infarct area and she was started on Dilantin and Keppra and it was felt that she would not be a candidate for intervention. She has been intubated 9-10 days and apparently she has been tolerating C Pap trials to some extent but mental status prevents extubation. Treating team was discussing with family trach/PEG. Apparently family requested transfer back to [place] because they live locally here and wanted her closer to home. Patient remained under critical care medicine until 12/24/2016. - Bilateral frontal CVA - Moyamoya - confirmed by arteriogram at [facility] October 2016. - Seizure disorder - Continue Keppra - level 38.3 01/25/17. - Continue Tegretol - Follow for seizure activity - no recent seizure activity noted - continue Aspirin daily - Continue Bromocriptine - Obtain new Keppra level/pending - Tegretol level 9.5 - Hyperammonemia - trending down - continue Lactulose 30mg TID - continue to monitor ammonia level as indicated - (+)3 soft BMs per nursing staff over night - Chronic respiratory failure - COPD - Multilobar pneumonia, resolved - Pulmonary medicine following, appreciate assistance - Status post tracheostomy on 11/24/2016. Currently on T piece. Still with thick secretions. O2 sats 100%. - completed antibiotic course with Tobramycin, course ended on 01/20/17. - Continue DuoNebs when necessary - Continue Levsin prn - Atrial fibrillation - rate controlled - Continue Metoprolol 25mg q12hr - Continue on Coumadin at increased dose - INR 2.0. Pharmacy to dose. Continue to monitor INR. - Systolic and diastolic heart failure, acute - echocardiogram 02/02/17 shows EF 35-40%, grade 3 diastolic dysfunction, severe tricuspid regurgitation, severe pulmonary HTN and severe mitral valve regurgitation. - Continue Lasix 20mg IV q 8h and Lisinopril 5mg po daily - Monitor electrolytes and renal function - 18.7kg wt gain in past month - Anasarca - Continue Albumin 5% 12.5g q 12 hrs - Continue Lasix 20 mg IV q 8h - Dysphagia - Hypoalbuminemia - s/p PEG placement - continue Jevity 1.5 through PEG tube with Corby supplementation. - Continue TF - slight irritation around PEG tube site, nursing order to clean area and apply bacitracin. Monitor. - Sacral/Coccyx wound -Specialty bed ordered -Wound care following - per their recs, pack wound daily with Santyl to sacrococcygeal wound. On right buttock, right ischium apply single layer Xeroform over open wound beds. Prep periwounds with Cavilon skin prep. Cover Xeroform with bordered gauze dressing. Change dressings EVERY OTHER DAY and PRN for dislodgement or soiling. -continue frequent turning/off loading Q2H - Anemia, microcytic, hypochromic -hemoglobin 10.8 --> 9.9 -iron studies-iron 33, TIBC 307, % sat 10.8, ferritin 346. Continue iron supplementation. -stool hemoccult negative -monitor intermittently GI Prophylaxis: Pepcid. DVT prophylaxis: SCDs. Coumadin. Full code. SCDs. Discussed with nursing staff, patient and Dr. Yuan. Discharge Planning Patient will need long-term care facility. CM continuing to seek placement. Last CM note:02/22/17- No accepting facility at this time. Barrier: payer is Medicaid and pt is too expensive with PEG and trach. Possibly can be placed with one or the other but not both. Tova March Feb 25, 2017 08:42
[2017-02-25] MEDS: levETIRAcetam 500 MG/5 ML UDC NG SCH ×2 (08:47→21:39)
[2017-02-25] MEDS: FERROUS SULFATE 300 MG /5ML UDC PEG SCH ×2 (08:48→21:38)
[2017-02-25] MEDS: ASCORBIC ACID 500 MG TAB PEG SCH ×2 (08:48→21:38)
[2017-02-25] MEDS: LACTULOSE SYRUP 20 GM/30 ML CUP G-TUBE SCH ×3 (08:48→16:30)
[2017-02-25] MEDS: FAMOTIDINE 20 MG TAB NG SCH ×2 (08:49→21:39)
[2017-02-25] MEDS: carBAMazepine SUSP 200 MG/10 ML UDC PEG SCH ×2 (08:49→21:38)
[2017-02-25] MEDS: ASPIRIN 81 MG CHEW TAB NG SCH (08:49)
[2017-02-25] MEDS: FOLIC ACID 1 MG TAB OG-TUBE SCH (08:49)
[2017-02-25] MEDS: METOPROLOL TARTRATE 25 MG TAB G-TUBE SCH ×2 (08:50→21:38)
[2017-02-25] MEDS: SENNOSIDES SYRUP 8.8 MG/5 ML CUP G-TUBE SCH ×2 (08:50→21:39)
[2017-02-25] MEDS: ATORVASTATIN 40 MG TAB G-TUBE SCH (08:50)
[2017-02-25] MEDS: JUVEN POWDER 1 PACK G-TUBE SCH ×2 (08:50→21:00)
[2017-02-25] MEDS: BROMOCRIPTINE MESYLATE 2.5 MG TAB OG-TUBE SCH ×2 (08:51→21:38)
[2017-02-25] MEDS: SODIUM CHLORIDE 0.9% FLUSH 10 ML FLUSH IV FLUSH SCH ×2 (08:51→21:40)
[2017-02-25] MEDS: POVIDONE IODINE 10% OINT 30 GM TUBE TOPICAL SCH (08:52)
[2017-02-25] MEDS: SODIUM HYPOCHLORITE 0.25% 500 ML BTL TOPICAL SCH (08:52)
[2017-02-25] MEDS ORDERED: BACITRACIN OINT 0.9 GM PKT TOPICAL ONE (09:00)
[2017-02-25] MEDS: WARFARIN SOD 10 MG TAB PO SCH (16:25)
[2017-02-25] MEDS: LISINOPRIL 5 MG TAB PO SCH (16:26)
--- NOTE | 2017-02-25 18:30 | HHI.PR ---
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 Trach secretions thick DW RN at BS Objective Vital Signs Vital Signs Date Time Temp Pulse Resp B/P Pulse Ox O2 Delivery O2 Flow Rate FiO2 02/25/17 16:22 97.5 82 20 156/82 100 02/25/17 13:33 98 T-piece 6.00 28 02/25/17 12:17 97.4 80 20 117/66 96 02/25/17 08:38 98.1 87 20 103/74 100 02/25/17 08:30 100 T-Piece 5.00 28 Humidified 02/25/17 08:05 90 02/25/17 04:00 98.0 80 20 117/73 100 02/25/17 00:00 97.0 83 18 127/71 99 02/24/17 23:44 99 T-piece 28 02/24/17 20:00 91 02/24/17 20:00 97.0 84 20 141/78 100 02/24/17 19:15 100 T-Piece 5.00 28 I/O 02/24/17 02/24/17 02/24/17 02/25/17 02/25/17 02/25/17 07:00 15:00 23:00 07:00 15:00 23:00 Intake Total 408 ml 320 ml 1393 ml 436 ml 328 ml Output Total 1000 ml 650 ml 400 ml 975 ml 750 ml Balance -592 ml -330 ml 993 ml -975 ml 436 ml -422 ml IV Total 250 ml Tube Feeding 208 ml 943 ml 336 ml 228 ml Tube Irrigant 100 ml 100 ml Other 200 ml 320 ml 200 ml Output Urine Total 1000 ml 650 ml 400 ml 975 ml 750 ml # Voids 2 # Bowel Movements 1 3 2 Result Diagram: 02/22/17 0817 Objective Remarks GENERAL: MBMN WF, on Trach collar SKIN: Warm and dry. HEAD: Normocephalic. EYES: No scleral icterus. No injection or drainage. NECK: Supple, trachea midline. No JVD or lymphadenopathy. has trach CARDIOVASCULAR: Regular rate and rhythm without murmurs, gallops, or rubs. RESPIRATORY: Breath sounds equal bilaterally. No accessory muscle use. GASTROINTESTINAL: Abdomen soft, non-tender, nondistended. has PEG MUSCULOSKELETAL: No cyanosis, or edema. BACK: Nontender without obvious deformity. No CVA tenderness. A/P Assessment and Plan RF, S/P Trach CVA Arango arango disease CAD COPD SZ disorder PLAN: Aerosol nebs Cont trach collar supplement 02, keep sat >90% Trach suction prn. tolerates TF Stable pulm, available prn over weekend. Vernon Marx MD Feb 25, 2017 18:30
[2017-02-26] VITALS (10 sets, daily range): BP systolic 102–161; BP diastolic 59–93; PULSE 82–98; RESP 20–22; TEMP 97.2–98.5; O2SAT 98–100
[2017-02-26] MEDS: ALBUMIN HUMAN 5% 12.5 GM/250 ML BOTTLE IV SCH ×2 (01:50→13:03)
[2017-02-26] MEDS: FREE WATER G-TUBE SCH ×5 (01:50→23:21)
[2017-02-26] MEDS: CHLORHEXIDINE GLUCONATE 2 % 1 PACK (2 CLOTHS) TOP SCH (04:00)
[2017-02-26] MEDS: FUROSEMIDE 20 MG/2 ML VIAL IV PUSH SCH ×3 (05:32→23:19)
[2017-02-26] MEDS: CHLORHEXIDINE 0.12% (ORAL KIT) 15 ML CUP MT SCH ×2 (08:00→20:00)
[2017-02-26 08:31] LABS: PROTHROMBIN TIME - PATIENT 22.8 SEC (9.8-11.6)
[2017-02-26] MEDS: carBAMazepine SUSP 200 MG/10 ML UDC PEG SCH ×2 (09:00→23:18)
[2017-02-26] MEDS: SENNOSIDES SYRUP 8.8 MG/5 ML CUP G-TUBE SCH ×2 (09:00→23:19)
[2017-02-26] MEDS: JUVEN POWDER 1 PACK G-TUBE SCH ×2 (09:00→21:00)
[2017-02-26] MEDS: POVIDONE IODINE 10% OINT 30 GM TUBE TOPICAL SCH (09:00)
[2017-02-26] MEDS: BROMOCRIPTINE MESYLATE 2.5 MG TAB OG-TUBE SCH ×2 (09:00→23:19)
[2017-02-26] MEDS: LACTULOSE SYRUP 20 GM/30 ML CUP G-TUBE SCH ×3 (09:15→16:35)
[2017-02-26] MEDS: FERROUS SULFATE 300 MG /5ML UDC PEG SCH ×2 (09:16→23:18)
[2017-02-26] MEDS: ASPIRIN 81 MG CHEW TAB NG SCH (09:17)
[2017-02-26] MEDS: ASCORBIC ACID 500 MG TAB PEG SCH ×2 (09:17→23:19)
[2017-02-26] MEDS: FOLIC ACID 1 MG TAB OG-TUBE SCH (09:18)
[2017-02-26] MEDS: FAMOTIDINE 20 MG TAB NG SCH ×2 (09:18→23:19)
[2017-02-26] MEDS: ATORVASTATIN 40 MG TAB G-TUBE SCH (09:18)
[2017-02-26] MEDS: METOPROLOL TARTRATE 25 MG TAB G-TUBE SCH ×2 (09:18→23:18)
[2017-02-26] MEDS: levETIRAcetam 500 MG/5 ML UDC NG SCH ×2 (09:19→23:18)
[2017-02-26] MEDS: SODIUM HYPOCHLORITE 0.25% 500 ML BTL TOPICAL SCH (09:20)
[2017-02-26] MEDS: SODIUM CHLORIDE 0.9% FLUSH 10 ML FLUSH IV FLUSH SCH ×2 (09:21→23:19)
--- NOTE | 2017-02-26 15:56 | HHI.PR ---
Subjective Remarks Follow up on patient with bilateral frontal CVA, Moyamoya disease, seizure d/o, COPD, multilobar pneumonia and acute respiratory failure. Patient seen and examined, RN at bedside denies any new acute complaints or changes overnight. Patient lying in bed comfortably, in no apparent distress. TF continued. Tolerating well. Afebrile. T-piece in place. Objective Vitals Vital Signs Date Time Temp Pulse Resp B/P Pulse Ox O2 Delivery O2 Flow Rate FiO2 02/26/17 12:09 97.3 82 20 102/67 100 02/26/17 11:07 100 T-piece 28 02/26/17 11:07 100 T-piece 28 02/26/17 08:23 97.4 86 22 161/93 100 02/26/17 08:20 100 T-Piece 5.00 28 02/26/17 08:05 85 02/26/17 04:20 97.2 85 20 147/84 99 02/26/17 00:14 98.0 82 20 131/59 100 02/25/17 20:07 97.5 88 20 165/69 98 02/25/17 20:00 83 02/25/17 19:15 98 Trach Collar 6.00 28 02/25/17 16:22 97.5 82 20 156/82 100 I/O 02/25/17 02/25/17 02/25/17 02/26/17 02/26/17 02/26/17 06:59 14:59 22:59 06:59 14:59 22:59 Intake Total 436 ml 328 ml 722 ml 100 ml Output Total 975 ml 1050 ml 150 ml Balance -975 ml 436 ml -722 ml 572 ml 100 ml Tube Feeding 336 ml 228 ml 722 ml Tube Irrigant 100 ml 100 ml 100 ml Output Urine Total 975 ml 1050 ml 150 ml # Bowel Movements 3 2 1 Result Diagram: 02/22/1717 Imaging Last Impressions Abdomen X-Ray 02/11/17 0000 Signed Impressions: Service Date/Time: Saturday, February 11, 2017 17:52 - CONCLUSION: Minimal colonic distention. Kenneth Frost MD FACR Catheter Change 02/10/17 0000 Signed Impressions: Service Date/Time: February 13:47 - CONCLUSION: Uncomplicated fluoroscopic guided gastrostomy tube replacement. Positioning confirmed. The tube can be used immediately. Nghia Pacheco MD Lower Extremity Ultrasound 02/01/17 0000 Signed Impressions: Service Date/Time: Wednesday, February 01, 2017 13:23 - CONCLUSION: Normal examination. Gray Veronica MD Chest X-Ray 02/01/17 0000 Signed Impressions: Service Date/Time: Wednesday, February 01, 2017 08:45 - CONCLUSION: 1. Stable tracheostomy. 2. Mild interstitial prominence may reflect slight positive fluid balance. Christiano Villagran MD Brain MRI 01/06/17 0000 Signed Impressions: Service Date/Time: January 14:19 - CONCLUSION: Continued evolutionary changes of large bilateral frontal lobe infarcts. Sami Mccarthy MD Objective Remarks GENERAL: Well-nourished, well-developed female patient lying in bed in NAD, t- collar in place. SKIN: Warm and dry. Anasarca. HEENT: Normocephalic. Pupils equal and round. No scleral icterus. No injection or drainage. No nasal bleeding or discharge. Mucous membranes pink and moist. NECK: Supple. Trachea midline. CARDIOVASCULAR: Regular rate and rhythm. S1, S2 noted. No murmur appreciated. RESPIRATORY: No accessory muscle use. Distant breath sounds noted. Breath sounds equal bilaterally. GASTROINTESTINAL: Abdomen soft, non-tender, nondistended. Normoactive bowel sounds x4. MUSCULOSKELETAL: No obvious deformities. Extremities without clubbing, cyanosis. NEUROLOGICAL: Does not track with eyes. Occasionally opens to vocal and noxious stimuli. No spontaneous movement in upper and lower extremities. Procedures PEG 11/24/2016 Percutaneous tracheostomy. 11/18/2016 Moderate encephalopathy with suggestion of left temporal region cortical irritability. No active seizures. Clinical correlation. Echocardiogram Severe dilated left ventricle. Wall thickness is normal. The left ventricular systolic function is moderately reduced with an estimated ejection fraction in the range of 35-40%. Doppler parameters are consistent with a restrictive left ventricular filling pattern indicative of decreased left ventricular diastolic compliance and increase left atrial pressure (grade 3 diastolic dysfunction). There is severe tricuspid regurgitation. There is severe pulmonary hypertension present ( > 70 mmHg). Severe mitral valve regurgitation. Date of Insertion: Jan 29, 2017 A/P Problem List: (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 She was was admitted to [facility] emergency department 11/04/16 with difficulty getting her thoughts together. She was found to have multifocal nonhemorrhagic infarcts in left frontal and parietal regions, right frontal lobe and history of moyamoya disease. She was initially awake and following commands with weakness of RLE and some aphasia. She was transferred to [facility] where he had an cerebral angiogram consistent with moyamoya. There were plans to perform extracranial/intracranial bypass. However she had a seizure and ended up being intubated for status either 4/4 or 4/5.. She was found to have a new right frontal infarct area and she was started on Dilantin and Keppra and it was felt that she would not be a candidate for intervention. She has been intubated 9- 10 days and apparently she has been tolerating C Pap trials to some extent but mental status prevents extubation. Treating team was discussing with family trach/PEG. Apparently family requested transfer back to [place] because they live locally here and wanted her closer to home. Patient remained under critical care medicine until 12/24/2016. Bilateral large frontal CVA Moyamoya Disease Seizure Disorder - Continue Keppra 1,500 mg q12h - Continue Tegretol 200 mg q12h - Follow for seizure activity - Continue aspirin - Continue Bromocriptine - Tegretol level WNL. Hyperammonemia: 70 --> 49 --> 56 --> 54 --> 30 --> 37. Lactulose 30 ml PO TID. Positive BM noted. RN to please continue administration. Systolic and diastolic heart failure, acute - Continue Lasix and MACKENZIE inhibitor. - Monitor electrolytes and renal function Atrial Fibrillation, acute: Controlled. - INR 2. Follow daily INR. Pharmacy to manage. Watch closely. - Continue Coumadin. Hyponatremia, resolved: Na 129 --> 135. Continue FWF. Recheck in am. Follow. Hyperkalemia, resolved: K 5.5 --> 3.6. Recheck BMP in am. Follow. Anasarca: DC Albumin 5% 12.5g q 12 hrs. Continue Lasix 20 mg IV from BID To TID. Chronic Respiratory Failure Chronic obstructive pulmonary disease Multilobar pneumonia - Pulmonology following, appreciate input. - Continue tracheostomy with supplemental oxygen. - Tobramycin completed, course ended on 01/20/17. - Levsin PRN for increased secretions. Dysphagia Hypoalbuminemia - PEG placed. Continue TF. - Jevity 1.5 through PEG tube with Corby supplementation. Tolerating well. Sacral/Coccyx wound - Continue specialty bed. - Wound care following, appreciate input. Last note with recommendations to pack wound daily with Santyl to sacrococcygeal wound. On right buttock, right ischium apply single layer Xeroform over open wound beds. Prep periwounds with Cavilon skin prep. Cover Xeroform with bordered gauze dressing. Change dressings EVERY OTHER DAY and PRN for dislodgement or soiling. GI Prophylaxis: Pepcid. DVT prophylaxis: SCDs. Coumadin. Discussed with Dr. Obrien Discharge Planning Patient will need long-term care facility. CM continuing to seek placement. Last CM note:02/25/17- No accepting facility at this time. Barrier: payer is Medicaid and pt is too expensive with PEG and trach. Possibly can be placed with one or the other but not both. Jackie Walsh Feb 26, 2017 15:56 Jackie Walsh Feb 26, 2017 15:56
[2017-02-26] MEDS: WARFARIN SOD 10 MG TAB PO SCH (16:34)
[2017-02-26] MEDS: LISINOPRIL 5 MG TAB PO SCH (16:34)
[2017-02-27] VITALS (8 sets, daily range): BP systolic 123–154; BP diastolic 56–77; PULSE 85–96; RESP 18–22; TEMP 97.3–98.6; O2SAT 91–100
[2017-02-27] MEDS: CHLORHEXIDINE GLUCONATE 2 % 1 PACK (2 CLOTHS) TOP SCH (04:00)
[2017-02-27] MEDS: FREE WATER G-TUBE SCH ×4 (06:00→23:10)
[2017-02-27] MEDS: FUROSEMIDE 20 MG/2 ML VIAL IV PUSH SCH ×3 (06:07→23:27)
[2017-02-27] MEDS: CHLORHEXIDINE 0.12% (ORAL KIT) 15 ML CUP MT SCH ×2 (08:00→20:00)
[2017-02-27 08:23] LABS: AUTOMATED NEUTROPHIL # 6.1 TH/MM3 (1.8-7.7); BASOPHIL # 0.1 TH/MM3 (0-0.2); BASOPHIL % 0.9 % (0.0-2.0); EOSINOPHIL # 0.1 TH/MM3 (0-0.4); EOSINOPHIL % 1.5 % (0.0-4.0); HEMATOCRIT 26.9 % (35.0-46.0); HEMO FLAGS DIFF FINAL; LYMPH % 12.6 % (9.0-44.0); MEAN CELL VOLUME 76.8 FL (80.0-100.0); MEAN CORPUSCULAR HEMOGLOBIN 24.9 PG (27.0-34.0); MEAN CORPUSCULAR HGB CONC 32.4 % (32.0-36.0); MONO % 5.7 % (0.0-8.0); NEUT % 79.3 % (16.0-70.0); PLATELET COUNT 406 TH/MM3 (150-450); RED BLOOD COUNT 3.51 MIL/MM3 (4.00-5.30); RED CELL DISTRIBUTION WIDTH 20.5 % (11.6-17.2); WHITE BLOOD COUNT 7.7 TH/MM3 (4.0-11.0)
[2017-02-27] MEDS: JUVEN POWDER 1 PACK G-TUBE SCH ×2 (08:37→21:00)
[2017-02-27] MEDS: LACTULOSE SYRUP 20 GM/30 ML CUP G-TUBE SCH ×3 (08:38→17:25)
[2017-02-27] MEDS: FERROUS SULFATE 300 MG /5ML UDC PEG SCH ×2 (08:38→23:09)
[2017-02-27] MEDS: SENNOSIDES SYRUP 8.8 MG/5 ML CUP G-TUBE SCH ×2 (08:38→23:09)
[2017-02-27] MEDS: METOPROLOL TARTRATE 25 MG TAB G-TUBE SCH ×2 (08:39→23:09)
[2017-02-27] MEDS: ASPIRIN 81 MG CHEW TAB NG SCH (08:39)
[2017-02-27] MEDS: carBAMazepine SUSP 200 MG/10 ML UDC PEG SCH ×2 (08:39→23:09)
[2017-02-27] MEDS: ATORVASTATIN 40 MG TAB G-TUBE SCH (08:39)
[2017-02-27] MEDS: ASCORBIC ACID 500 MG TAB PEG SCH ×2 (08:40→23:09)
[2017-02-27] MEDS: FOLIC ACID 1 MG TAB OG-TUBE SCH (08:40)
[2017-02-27] MEDS: FAMOTIDINE 20 MG TAB NG SCH ×2 (08:40→23:09)
[2017-02-27] MEDS: levETIRAcetam 500 MG/5 ML UDC NG SCH ×2 (08:41→23:09)
[2017-02-27] MEDS: BROMOCRIPTINE MESYLATE 2.5 MG TAB OG-TUBE SCH ×2 (08:41→23:09)
[2017-02-27 08:42] LABS: INTERNATIONAL NORMALIZED RATIO 1.9 RATIO
[2017-02-27] MEDS: POVIDONE IODINE 10% OINT 30 GM TUBE TOPICAL SCH (08:42)
[2017-02-27] MEDS: SODIUM CHLORIDE 0.9% FLUSH 10 ML FLUSH IV FLUSH SCH ×2 (08:42→23:10)
[2017-02-27] MEDS: SODIUM HYPOCHLORITE 0.25% 500 ML BTL TOPICAL SCH (08:43)
[2017-02-27 08:44] LABS: BICARBONATE 30.4 MEQ/L (21.0-32.0); POTASSIUM 3.7 MEQ/L (3.5-5.1)
--- NOTE | 2017-02-27 09:00 | HHI.PR ---
Subjective Remarks Follow up on patient with bilateral frontal CVA, Moyamoya disease, seizure d/o, COPD, multilobar pneumonia and acute respiratory failure. Patient seen and examined. Spoke to RN, no new acute events overnight. Positive BM. Tolerating tube feeds. Anasarca continued despite diuretics. Objective Vitals Vital Signs Date Time Temp Pulse Resp B/P Pulse Ox O2 Delivery O2 Flow Rate FiO2 02/27/17 08:34 98.5 91 19 154/66 100 02/27/17 04:00 98.6 94 20 123/56 91 02/27/17 00:00 97.7 85 18 125/76 96 02/26/17 21:55 T-Piece 5.00 28 02/26/17 21:03 99 T-piece 6.00 02/26/17 20:45 92 02/26/17 20:00 98.5 98 20 136/61 98 02/26/17 16:54 97.4 82 20 125/59 100 02/26/17 12:09 97.3 82 20 102/67 100 02/26/17 11:07 100 T-piece 28 02/26/17 11:07 100 T-piece 28 I/O 02/26/17 02/26/17 02/26/17 02/27/17 02/27/17 02/27/17 07:00 15:00 23:00 07:00 15:00 23:00 Intake Total 722 ml 100 ml 740 ml 744 ml Output Total 150 ml 1700 ml 300 ml Balance 572 ml 100 ml -960 ml 444 ml Tube Feeding 722 ml 640 ml 744 ml Tube Irrigant 100 ml 100 ml Output Urine Total 150 ml 1700 ml 300 ml # Bowel Movements 1 1 Result Diagram: 02/27/17 0657 02/27/17 0657 Imaging Last Impressions Abdomen X-Ray 02/11/17 0000 Signed Impressions: Service Date/Time: Saturday, February 11, 2017 17:52 - CONCLUSION: Minimal colonic distention. Kenneth Frost MD FACR Catheter Change 02/10/17 0000 Signed Impressions: Service Date/Time: February 13:47 - CONCLUSION: Uncomplicated fluoroscopic guided gastrostomy tube replacement. Positioning confirmed. The tube can be used immediately. Nghia Pacheco MD Lower Extremity Ultrasound 02/01/17 0000 Signed Impressions: Service Date/Time: Wednesday, February 01, 2017 13:23 - CONCLUSION: Normal examination. Gray Veronica MD Chest X-Ray 02/01/17 0000 Signed Impressions: Service Date/Time: Wednesday, February 01, 2017 08:45 - CONCLUSION: 1. Stable tracheostomy. 2. Mild interstitial prominence may reflect slight positive fluid balance. Christiano Villagran MD Brain MRI 01/06/17 0000 Signed Impressions: Service Date/Time: January 14:19 - CONCLUSION: Continued evolutionary changes of large bilateral frontal lobe infarcts. Sami Mccarthy MD Objective Remarks GENERAL: Well-nourished, well-developed female patient lying in bed in NAD, t- collar in place. SKIN: Warm and dry. Anasarca. HEENT: Normocephalic. Pupils equal and round. No scleral icterus. No injection or drainage. No nasal bleeding or discharge. Mucous membranes pink and moist. NECK: Supple. Trachea midline. CARDIOVASCULAR: Regular rate and rhythm. S1, S2 noted. No murmur appreciated. RESPIRATORY: No accessory muscle use. Distant breath sounds noted. Breath sounds equal bilaterally. GASTROINTESTINAL: Abdomen soft, non-tender, nondistended. Normoactive bowel sounds x4. MUSCULOSKELETAL: No obvious deformities. Extremities without clubbing, cyanosis. NEUROLOGICAL: Does not track with eyes. Occasionally opens to vocal and noxious stimuli. No spontaneous movement in upper and lower extremities. Procedures PEG 11/24/2016 Percutaneous tracheostomy. 11/18/2016 Moderate encephalopathy with suggestion of left temporal region cortical irritability. No active seizures. Clinical correlation. Echocardiogram Severe dilated left ventricle. Wall thickness is normal. The left ventricular systolic function is moderately reduced with an estimated ejection fraction in the range of 35-40%. Doppler parameters are consistent with a restrictive left ventricular filling pattern indicative of decreased left ventricular diastolic compliance and increase left atrial pressure (grade 3 diastolic dysfunction). There is severe tricuspid regurgitation. There is severe pulmonary hypertension present ( > 70 mmHg). Severe mitral valve regurgitation. Urinary Catheter: Yes Assessment to: Continue Date of Insertion: Jan 29, 2017 A/P Problem List: (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 She was was admitted to [facility] emergency department 11/04/16 with difficulty getting her thoughts together. She was found to have multifocal nonhemorrhagic infarcts in left frontal and parietal regions, right frontal lobe and history of moyamoya disease. She was initially awake and following commands with weakness of RLE and some aphasia. She was transferred to [facility] where he had an cerebral angiogram consistent with moyamoya. There were plans to perform extracranial/intracranial bypass. However she had a seizure and ended up being intubated for status either 4/4 or 4/5.. She was found to have a new right frontal infarct area and she was started on Dilantin and Keppra and it was felt that she would not be a candidate for intervention. She has been intubated 9- 10 days and apparently she has been tolerating C Pap trials to some extent but mental status prevents extubation. Treating team was discussing with family trach/PEG. Apparently family requested transfer back to [place] because they live locally here and wanted her closer to home. Patient remained under critical care medicine until 12/24/2016. Bilateral large frontal CVA Moyamoya Disease Seizure Disorder - Continue Keppra 1,500 mg q12h - Continue Tegretol 200 mg q12h - Follow for seizure activity - Continue aspirin - Continue Bromocriptine - Tegretol level WNL. Hyperammonemia: 70 -->37. Lactulose 30 ml PO TID. Positive BM noted. Systolic and diastolic heart failure, acute - Continue Lasix and MACKENZIE inhibitor. - Monitor electrolytes and renal function Atrial Fibrillation, acute: Controlled. - INR 1.9. Follow daily INR. Pharmacy to manage. Watch closely. - Continue Coumadin. Hyponatremia, resolved: BMP reviewed today. Na 129 --> 134. Continue FWF. Hyperkalemia, resolved: BMP reviewed today. K 5.5 --> 3.7. Anasarca: Worsening. Continue Lasix 20 mg IV from BID To TID. Add Zaroxolyn 5 mg PO daily. Continue to monitor. Chronic Respiratory Failure Chronic obstructive pulmonary disease Multilobar pneumonia - Pulmonology following, appreciate input. - Continue tracheostomy with supplemental oxygen. - Tobramycin completed, course ended on 01/20/17. - Levsin PRN for increased secretions. Dysphagia Hypoalbuminemia - PEG placed. Continue TF. - Jevity 1.5 through PEG tube with Corby supplementation. Tolerating well. Sacral/Coccyx wound - Continue specialty bed. - Wound care following, appreciate input. Last note with recommendations to pack wound daily with Santyl to sacrococcygeal wound. On right buttock, right ischium apply single layer Xeroform over open wound beds. Prep periwounds with Cavilon skin prep. Cover Xeroform with bordered gauze dressing. Change dressings EVERY OTHER DAY and PRN for dislodgement or soiling. GI Prophylaxis: Pepcid. DVT prophylaxis: SCDs. Coumadin. Discussed with Dr. Obrien Discharge Planning Patient will need long-term care facility. CM continuing to seek placement. Last CM note:02/25/17- No accepting facility at this time. Barrier: payer is Medicaid and pt is too expensive with PEG and trach. Possibly can be placed with one or the other but not both. Jackie Walsh Feb 27, 2017 09:00
[2017-02-27] MEDS: METOLAZONE 5 MG TAB PO SCH (17:25)
[2017-02-27] MEDS: LISINOPRIL 5 MG TAB PO SCH (17:25)
[2017-02-27] MEDS: WARFARIN SOD 10 MG TAB PO SCH (17:25)
[2017-02-28] VITALS (9 sets, daily range): BP systolic 125–144; BP diastolic 69–88; PULSE 72–96; RESP 17–20; TEMP 97.2–97.7; O2SAT 97–100
[2017-02-28] MEDS: SODIUM CHLORIDE 0.9% FLUSH 10 ML FLUSH IV FLUSH SCH ×2 (00:50→09:00)
[2017-02-28] MEDS: CHLORHEXIDINE GLUCONATE 2 % 1 PACK (2 CLOTHS) TOP SCH (04:00)
[2017-02-28] MEDS: FREE WATER G-TUBE SCH ×3 (06:00→16:30)
[2017-02-28] MEDS: FUROSEMIDE 20 MG/2 ML VIAL IV PUSH SCH ×3 (06:03→22:32)
[2017-02-28] MEDS: CHLORHEXIDINE 0.12% (ORAL KIT) 15 ML CUP MT SCH ×2 (08:00→20:00)
[2017-02-28 08:48] LABS: PROTHROMBIN TIME - PATIENT 22.4 SEC (9.8-11.6)
[2017-02-28] MEDS: SODIUM HYPOCHLORITE 0.25% 500 ML BTL TOPICAL SCH (09:00)
[2017-02-28] MEDS: carBAMazepine SUSP 200 MG/10 ML UDC PEG SCH ×2 (09:00→22:31)
[2017-02-28] MEDS: POVIDONE IODINE 10% OINT 30 GM TUBE TOPICAL SCH (09:00)
[2017-02-28] MEDS: METOLAZONE 5 MG TAB PO SCH (09:00)
[2017-02-28] MEDS: JUVEN POWDER 1 PACK G-TUBE SCH ×2 (09:00→21:00)
[2017-02-28] MEDS: ATORVASTATIN 40 MG TAB G-TUBE SCH (09:47)
[2017-02-28] MEDS: levETIRAcetam 500 MG/5 ML UDC NG SCH ×2 (09:47→22:31)
[2017-02-28] MEDS: FOLIC ACID 1 MG TAB OG-TUBE SCH (09:47)
[2017-02-28] MEDS: SENNOSIDES SYRUP 8.8 MG/5 ML CUP G-TUBE SCH ×2 (09:47→21:00)
[2017-02-28] MEDS: METOPROLOL TARTRATE 25 MG TAB G-TUBE SCH ×2 (09:47→22:30)
[2017-02-28] MEDS: BROMOCRIPTINE MESYLATE 2.5 MG TAB OG-TUBE SCH ×2 (09:47→22:30)
[2017-02-28] MEDS: ASCORBIC ACID 500 MG TAB PEG SCH ×2 (09:47→22:30)
[2017-02-28] MEDS: ASPIRIN 81 MG CHEW TAB NG SCH (09:48)
[2017-02-28] MEDS: LACTULOSE SYRUP 20 GM/30 ML CUP G-TUBE SCH ×3 (09:48→16:30)
[2017-02-28] MEDS: FERROUS SULFATE 300 MG /5ML UDC PEG SCH ×2 (09:48→22:31)
[2017-02-28] MEDS: FAMOTIDINE 20 MG TAB NG SCH ×2 (09:48→22:30)
[2017-02-28] MEDS: WARFARIN SOD 10 MG TAB PO SCH (16:30)
[2017-02-28] MEDS: LISINOPRIL 5 MG TAB PO SCH (16:30)
--- NOTE | 2017-02-28 17:46 | HHI.PR ---
Subjective Remarks Follow up on patient with bilateral frontal CVA, Moyamoya disease, seizure d/o, COPD, multilobar pneumonia, acute respiratory failure Anasarca, and systolic/ diastolic heart failure. Patient seen and examined. Spoke to RN (Aamir), no new acute events overnight or since start of shift.. Positive BM (loose stools; lactulose continues).. Objective Vitals Vital Signs Date Time Temp Pulse Resp B/P Pulse Ox O2 Delivery O2 Flow Rate FiO2 02/28/17 12:21 97.4 72 18 125/80 100 02/28/17 08:00 97.2 76 17 144/77 97 02/28/17 07:15 T-Piece 5.00 28 02/28/17 07:00 83 02/28/17 04:00 97.5 96 20 133/88 98 02/28/17 00:59 98 Trach Collar 28 02/28/17 00:30 T-Piece 5.00 28 02/28/17 00:00 97.2 88 20 131/77 97 02/27/17 21:50 T-Piece 5.00 28 02/27/17 20:00 97.4 96 22 137/77 99 I/O 02/27/17 02/27/17 02/27/17 02/28/17 02/28/17 02/28/17 07:00 15:00 23:00 07:00 15:00 23:00 Intake Total 744 ml 100 ml 778 ml 746 ml Output Total 300 ml 450 ml 1750 ml Balance 444 ml -350 ml 778 ml -1750 ml 746 ml Tube Feeding 744 ml 678 ml 746 ml Tube Irrigant 100 ml 100 ml Output Urine Total 300 ml 450 ml 1750 ml # Bowel Movements 2 2 2 Result Diagram: 02/27/1757 02/27/17 06 Objective Remarks GENERAL: Pt encountered laying a bed, T-piece in place, eyes mostly closed throughout visit, in NAD. SKIN: Warm and dry. Pitting edema noted along flanks and forearms, though improvement is noted. Edema noted under right eye in past no longer present. HEAD: Normocephalic. EYES: No scleral icterus. No injection or drainage. Eyes needed to be pried open in order to evaluate. NECK: Supple, t-piece in place. CARDIOVASCULAR: Regular rate and rhythm without murmurs, gallops, or rubs. Per bedside monitor, 80 BPM RESPIRATORY: Breath sounds equal bilaterally, without rhonchi or wheezes. 100% oxygenation per bedside monitor. GASTROINTESTINAL: Abdomen soft, non-tender. Distention noted. G-tube in place MUSCULOSKELETAL: No cyanosis. Bilateral SCD's in place as were bilateral off loading boots. Neurological: Pt not responding to commands, no spontaneous movement observed Procedures PEG 11/24/2016 Percutaneous tracheostomy. 11/18/2016 Moderate encephalopathy with suggestion of left temporal region cortical irritability. No active seizures. Clinical correlation. Echocardiogram Severe dilated left ventricle. Wall thickness is normal. The left ventricular systolic function is moderately reduced with an estimated ejection fraction in the range of 35-40%. Doppler parameters are consistent with a restrictive left ventricular filling pattern indicative of decreased left ventricular diastolic compliance and increase left atrial pressure (grade 3 diastolic dysfunction). There is severe tricuspid regurgitation. There is severe pulmonary hypertension present ( > 70 mmHg). Severe mitral valve regurgitation. Medications and IVs Current Medications Medications (Trade) Dose Ordered Sig/Ora Route Start Time Stop Time Status Last Admin (Peridex 0.12% Liq) 15 ml BID@08,20 MT 11/18/16 08:00 02/28/17 08:00 (NS Flush) 2 ml BID IV FLUSH 11/18/16 09:00 02/28/17 09:00 (Morphine Inj) 2 mg Q2H PRN IV 11/18/16 03:30 01/16/17 08:23 (Zofran Inj) 4 mg Q6H PRN IV 11/18/16 03:30 11/26/16 03:20 Miscellaneous Information 1 Q361D XX 11/18/16 03:30 11/18/16 03:30 (Chlorhexidine 2% Cloth) Taper DAILY@04 TOP 11/18/16 04:00 11/14/17 03:59 02/15/17 04:00 (Chlorhexidine 2% Cloth) 3 pack UNSCH PRN TOP 11/18/16 03:30 (Aspirin Chew) 324 mg DAILY NG 11/18/16 09:00 02/28/17 09:48 (Parlodel) 2.5 mg Q12HR OG-TUBE 11/18/16 09:00 02/28/17 09:47 (Folate) 1 mg DAILY OG-TUBE 11/18/16 09:00 02/28/17 09:47 (Lopressor Inj) 5 mg Q6H PRN IV PUSH 11/23/16 22:45 01/12/17 03:20 (Dulcolax Supp) 10 mg DAILY PRN RECTAL 12/14/16 15:45 (Pepcid) 20 mg BID NG 12/21/16 21:00 02/28/17 09:48 (Keppra Liq) 1,500 mg Q12HR NG 12/21/16 21:00 02/28/17 09:47 (TEGretol LIQ) 200 mg Q12HR PEG 01/06/17 09:00 02/27/17 23:09 (Corby Powder) 1 pack BID G-TUBE 01/13/17 09:00 02/28/17 09:00 (Ferrous Sulfate Liq) 300 mg BID PEG 01/26/17 21:00 02/28/17 09:48 (Vitamin C) 500 mg BID PEG 01/26/17 21:00 02/28/17 09:47 (Free Water) 100 ml Q6HR G-TUBE 01/29/17 12:00 02/28/17 16:30 (Lopressor) 25 mg Q12HR G-TUBE 02/01/17 09:00 02/28/17 09:47 ([place] 5-325 Mg) 1 tab Q4H PRN G-TUBE 02/01/17 11:30 (Tylenol) 650 mg Q6H PRN G-TUBE 02/01/17 09:30 (Lipitor) 40 mg DAILY G-TUBE 02/01/17 09:00 02/28/17 09:47 (Levsin Liq) 0.125 mg Q4H PRN G-TUBE 02/01/17 11:15 02/18/17 20:52 (Senna Liq) 8.8 mg BID G-TUBE 02/01/17 09:00 02/28/17 09:47 (D50w (Vial) Inj) 25 ml UNSCH PRN IV PUSH 02/01/17 09:15 Glucagon 1 mg 1 mg UNSCH PRN OTHER 02/01/17 09:15 (Coumadin Consult Pharmacy) 0 ml @ 0 mls/hr UNSCH OTHER 02/01/17 09:15 (Prinivil) 5 mg DAILY@1600 PO 02/03/17 16:00 02/28/17 16:30 (Dakin'S 0.25% Soln) USE DAILY WITH DRESS... DAILY TOPICAL 02/12/17 18:00 02/28/17 09:00 (Betadine 10% Oint) 1 applic DAILY TOPICAL 02/15/17 09:00 02/28/17 09:00 (Lactulose Liq) 30 ml TID G-TUBE 02/21/17 13:00 02/28/17 16:30 (Lasix Inj) 20 mg Q8HR IV PUSH 02/23/17 14:00 02/28/17 12:15 (Coumadin) 10 mg DAILY@16 PO 02/24/17 16:00 02/28/17 16:30 (Zaroxolyn) 5 mg DAILY PO 02/27/17 17:00 02/27/17 17:25 Urinary Catheter: Yes Assessment to: Continue Brown insert reason: Prolonged Immobilization Date of Insertion: Jan 29, 2017 A/P Problem List: (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 She was was admitted to [facility] emergency department 11/04/16 with difficulty getting her thoughts together. She was found to have multifocal nonhemorrhagic infarcts in left frontal and parietal regions, right frontal lobe and history of moyamoya disease. She was initially awake and following commands with weakness of RLE and some aphasia. She was transferred to [facility] where he had an cerebral angiogram consistent with moyamoya. There were plans to perform extracranial/intracranial bypass. However she had a seizure and ended up being intubated for status either 4/4 or 4/5.. She was found to have a new right frontal infarct area and she was started on Dilantin and Keppra and it was felt that she would not be a candidate for intervention. She has been intubated 9- 10 days and apparently she has been tolerating C Pap trials to some extent but mental status prevents extubation. Treating team was discussing with family trach/PEG. Apparently family requested transfer back to [place] because they live locally here and wanted her closer to home. Patient remained under critical care medicine until 12/24/2016. Will start Entresto for systolic heart failure on 03/02. Pt is estimated to be stage II heart failure. Will discontinue MACKENZIE inhibitor for washout period of 36 hours. Treat blood pressure elevations on PRN basis. Monitor labs. Bilateral large frontal CVA Moyamoya Disease Seizure Disorder - Continue Keppra 1,500 mg q12h - Continue Tegretol 200 mg q12h - Follow for seizure activity - Continue aspirin - Continue Bromocriptine - Tegretol level WNL. Hyperammonemia: 70 -->37. Lactulose 30 ml PO TID. Positive BM noted. Systolic and diastolic heart failure, acute - Continue Lasix and MACKENZIE inhibitor. - Monitor electrolytes and renal function Atrial Fibrillation, acute: Controlled. - INR 1.9. Follow daily INR. Pharmacy to manage. Watch closely. - Continue Coumadin. Hyponatremia, resolved: BMP reviewed today. Na 129 --> 134. Continue FWF. Hyperkalemia, resolved: BMP reviewed today. K 5.5 --> 3.7. Anasarca: Worsening. Continue Lasix 20 mg IV from BID To TID. Add Zaroxolyn 5 mg PO daily. Continue to monitor. Chronic Respiratory Failure Chronic obstructive pulmonary disease Multilobar pneumonia - Pulmonology following, appreciate input. - Continue tracheostomy with supplemental oxygen. - Tobramycin completed, course ended on 01/20/17. - Levsin PRN for increased secretions. Dysphagia Hypoalbuminemia - PEG placed. Continue TF. - Jevity 1.5 through PEG tube with Corby supplementation. Tolerating well. Sacral/Coccyx wound - Continue specialty bed. - Wound care following, appreciate input. Last note with recommendations to pack wound daily with Santyl to sacrococcygeal wound. On right buttock, right ischium apply single layer Xeroform over open wound beds. Prep periwounds with Cavilon skin prep. Cover Xeroform with bordered gauze dressing. Change dressings EVERY OTHER DAY and PRN for dislodgement or soiling. GI Prophylaxis: Pepcid. DVT prophylaxis: SCDs. Coumadin. Discussed with RN and Dr. Obrien Discharge Planning Patient will need long-term care facility. CM continuing to seek placement. Trell Torres Jr. Feb 28, 2017 17:46
--- NOTE | 2017-02-28 19:44 | HHI.PR ---
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 Trach secretions thick Objective Vital Signs Vital Signs Date Time Temp Pulse Resp B/P Pulse Ox O2 Delivery O2 Flow Rate FiO2 02/28/17 12:21 97.4 72 18 125/80 100 02/28/17 08:00 97.2 76 17 144/77 97 02/28/17 07:15 T-Piece 5.00 28 02/28/17 07:00 83 02/28/17 04:00 97.5 96 20 133/88 98 02/28/17 00:59 98 Trach Collar 28 02/28/17 00:30 T-Piece 5.00 28 02/28/17 00:00 97.2 88 20 131/77 97 02/27/17 21:50 T-Piece 5.00 28 02/27/17 20:00 97.4 96 22 137/77 99 I/O 02/27/17 02/27/17 02/27/17 02/28/17 02/28/17 02/28/17 07:00 15:00 23:00 07:00 15:00 23:00 Intake Total 744 ml 100 ml 778 ml 746 ml Output Total 300 ml 450 ml 1750 ml Balance 444 ml -350 ml 778 ml -1750 ml 746 ml Tube Feeding 744 ml 678 ml 746 ml Tube Irrigant 100 ml 100 ml Output Urine Total 300 ml 450 ml 1750 ml # Bowel Movements 2 2 2 Result Diagram: 02/27/1757 02/27/17 06 Objective Remarks GENERAL: MBMN WF, on Trach collar SKIN: Warm and dry. HEAD: Normocephalic. EYES: No scleral icterus. No injection or drainage. NECK: Supple, trachea midline. No JVD or lymphadenopathy. has trach CARDIOVASCULAR: Regular rate and rhythm without murmurs, gallops, or rubs. RESPIRATORY: Breath sounds equal bilaterally. No accessory muscle use. GASTROINTESTINAL: Abdomen soft, non-tender, nondistended. has PEG MUSCULOSKELETAL: No cyanosis, or edema. BACK: Nontender without obvious deformity. No CVA tenderness. A/P Assessment and Plan RF, S/P Trach CVA Arango arango disease CAD COPD SZ disorder PLAN: Aerosol nebs Cont trach collar supplement 02, keep sat >90% Trach suction prn. tolerates TF Vernon Marx MD Feb 28, 2017 19:44
[2017-03-01] VITALS (9 sets, daily range): BP systolic 110–144; BP diastolic 61–73; PULSE 79–91; RESP 18–22; TEMP 97.4–98.4; O2SAT 100
[2017-03-01] MEDS: CHLORHEXIDINE GLUCONATE 2 % 1 PACK (2 CLOTHS) TOP SCH (04:00)
[2017-03-01] MEDS: FREE WATER G-TUBE SCH ×5 (05:50→17:09)
[2017-03-01] MEDS: FUROSEMIDE 20 MG/2 ML VIAL IV PUSH SCH ×2 (05:50→13:39)
[2017-03-01] MEDS: CHLORHEXIDINE 0.12% (ORAL KIT) 15 ML CUP MT SCH ×2 (08:00→20:00)
[2017-03-01] MEDS: LACTULOSE SYRUP 20 GM/30 ML CUP G-TUBE SCH ×3 (09:55→17:09)
[2017-03-01] MEDS: METOPROLOL TARTRATE 25 MG TAB G-TUBE SCH (09:55)
[2017-03-01] MEDS: FERROUS SULFATE 300 MG /5ML UDC PEG SCH (09:55)
[2017-03-01] MEDS: levETIRAcetam 500 MG/5 ML UDC NG SCH (09:55)
[2017-03-01] MEDS: METOLAZONE 5 MG TAB PO SCH (09:55)
[2017-03-01] MEDS: FAMOTIDINE 20 MG TAB NG SCH (09:56)
[2017-03-01] MEDS: ASCORBIC ACID 500 MG TAB PEG SCH (09:56)
[2017-03-01] MEDS: JUVEN POWDER 1 PACK G-TUBE SCH ×2 (09:56→21:00)
[2017-03-01] MEDS: ATORVASTATIN 40 MG TAB G-TUBE SCH (09:56)
[2017-03-01] MEDS: FOLIC ACID 1 MG TAB OG-TUBE SCH (09:56)
[2017-03-01] MEDS: ASPIRIN 81 MG CHEW TAB NG SCH (09:56)
[2017-03-01] MEDS: SENNOSIDES SYRUP 8.8 MG/5 ML CUP G-TUBE SCH ×2 (09:56→21:00)
[2017-03-01] MEDS: BROMOCRIPTINE MESYLATE 2.5 MG TAB OG-TUBE SCH (09:56)
[2017-03-01] MEDS: POVIDONE IODINE 10% OINT 30 GM TUBE TOPICAL SCH (09:57)
[2017-03-01] MEDS: SODIUM CHLORIDE 0.9% FLUSH 10 ML FLUSH IV FLUSH SCH ×2 (09:57→21:00)
[2017-03-01] MEDS: SODIUM HYPOCHLORITE 0.25% 500 ML BTL TOPICAL SCH (09:57)
[2017-03-01 10:30] LABS: INTERNATIONAL NORMALIZED RATIO 1.9 RATIO; PROTHROMBIN TIME - PATIENT 21.8 SEC (9.8-11.6)
[2017-03-01] MEDS: carBAMazepine SUSP 200 MG/10 ML UDC PEG SCH (11:58)
--- NOTE | 2017-03-01 15:47 | HHI.PR ---
Subjective Remarks Follow up on patient with bilateral frontal CVA, Moyamoya disease, seizure d/o, COPD, multilobar pneumonia, acute respiratory failure Anasarca, and systolic/ diastolic heart failure. Patient seen and examined. Not in acute distress. Resting comfortably. Spoke to RN (Marjorie), no new acute events overnight or since start of shift. Positive BM (loose stools; lactulose continues).. Objective Vitals Vital Signs Date Time Temp Pulse Resp B/P Pulse Ox O2 Delivery O2 Flow Rate FiO2 03/01/17 12:00 97.4 81 18 127/63 100 03/01/17 11:58 100 Trach Collar 5.00 28 Humidified 03/01/17 08:30 99 Trach Collar 5.00 28 Humidified 03/01/17 08:00 97.7 79 18 110/61 100 03/01/17 07:30 82 03/01/17 04:00 97.7 86 19 129/70 100 03/01/17 00:00 98.4 90 19 144/73 100 02/28/17 23:23 99 T-piece 28 02/28/17 22:30 T-Piece 5.00 28 02/28/17 20:00 97.7 86 19 134/69 100 02/28/17 19:00 79 I/O 02/28/17 02/28/17 02/28/17 03/01/17 03/01/17 03/01/17 07:00 15:00 23:00 07:00 15:00 23:00 Intake Total 746 ml Output Total 1750 ml 725 ml 1150 ml Balance -1750 ml 746 ml -725 ml -1150 ml Tube Feeding 746 ml Output Urine Total 1750 ml 725 ml 1150 ml # Bowel Movements 2 2 Result Diagram: 02/27/17 0657 02/27/17 0657 Objective Remarks GENERAL: Pt encountered laying a bed, T-piece in place, eyes mostly closed throughout visit, in NAD. SKIN: Warm and dry. Pitting edema noted along flanks and forearms, improvement is noted. HEAD: Normocephalic. EYES: No scleral icterus. No injection or drainage. Eyes needed to be pried open in order to evaluate. NECK: Supple, t-piece in place. CARDIOVASCULAR: Regular rate and rhythm without murmurs, gallops, or rubs. Per bedside monitor, 87 BPM RESPIRATORY: Breath sounds equal bilaterally, without rhonchi or wheezes. 100% oxygenation per bedside monitor. GASTROINTESTINAL: Abdomen soft, non-tender. Distention noted. G-tube in place MUSCULOSKELETAL: No cyanosis. Bilateral SCD's in place as were bilateral off loading boots. Neurological: Pt not responding to commands, no spontaneous movement observed Procedures PEG 11/24/2016 Percutaneous tracheostomy. 11/18/2016 Moderate encephalopathy with suggestion of left temporal region cortical irritability. No active seizures. Clinical correlation. Echocardiogram Severe dilated left ventricle. Wall thickness is normal. The left ventricular systolic function is moderately reduced with an estimated ejection fraction in the range of 35-40%. Doppler parameters are consistent with a restrictive left ventricular filling pattern indicative of decreased left ventricular diastolic compliance and increase left atrial pressure (grade 3 diastolic dysfunction). There is severe tricuspid regurgitation. There is severe pulmonary hypertension present ( > 70 mmHg). Severe mitral valve regurgitation. Medications and IVs Current Medications Medications (Trade) Dose Ordered Sig/Ora Route Start Time Stop Time Status Last Admin (Peridex 0.12% Liq) 15 ml BID@08,20 MT 11/18/16 08:00 03/01/17 08:00 (NS Flush) 2 ml BID IV FLUSH 11/18/16 09:00 03/01/17 09:57 (Morphine Inj) 2 mg Q2H PRN IV 11/18/16 03:30 01/16/17 08:23 (Zofran Inj) 4 mg Q6H PRN IV 11/18/16 03:30 11/26/16 03:20 Miscellaneous Information 1 Q361D XX 11/18/16 03:30 11/18/16 03:30 (Chlorhexidine 2% Cloth) Taper DAILY@04 TOP 11/18/16 04:00 11/14/17 03:59 02/15/17 04:00 (Chlorhexidine 2% Cloth) 3 pack UNSCH PRN TOP 11/18/16 03:30 (Aspirin Chew) 324 mg DAILY NG 11/18/16 09:00 03/01/17 09:56 (Parlodel) 2.5 mg Q12HR OG-TUBE 11/18/16 09:00 03/01/17 09:56 (Folate) 1 mg DAILY OG-TUBE 11/18/16 09:00 03/01/17 09:56 (Lopressor Inj) 5 mg Q6H PRN IV PUSH 11/23/16 22:45 01/12/17 03:20 (Dulcolax Supp) 10 mg DAILY PRN RECTAL 12/14/16 15:45 (Pepcid) 20 mg BID NG 12/21/16 21:00 03/01/17 09:56 (Keppra Liq) 1,500 mg Q12HR NG 12/21/16 21:00 03/01/17 09:55 (TEGretol LIQ) 200 mg Q12HR PEG 01/06/17 09:00 03/01/17 11:58 (Corby Powder) 1 pack BID G-TUBE 01/13/17 09:00 03/01/17 09:56 (Ferrous Sulfate Liq) 300 mg BID PEG 01/26/17 21:00 03/01/17 09:55 (Vitamin C) 500 mg BID PEG 01/26/17 21:00 03/01/17 09:56 (Free Water) 100 ml Q6HR G-TUBE 01/29/17 12:00 03/01/17 05:50 (Lopressor) 25 mg Q12HR G-TUBE 02/01/17 09:00 03/01/17 09:55 ([place] 5-325 Mg) 1 tab Q4H PRN G-TUBE 02/01/17 11:30 (Tylenol) 650 mg Q6H PRN G-TUBE 02/01/17 09:30 (Lipitor) 40 mg DAILY G-TUBE 02/01/17 09:00 03/01/17 09:56 (Levsin Liq) 0.125 mg Q4H PRN G-TUBE 02/01/17 11:15 02/18/17 20:52 (Senna Liq) 8.8 mg BID G-TUBE 02/01/17 09:00 03/01/17 09:56 (D50w (Vial) Inj) 25 ml UNSCH PRN IV PUSH 02/01/17 09:15 Glucagon 1 mg 1 mg UNSCH PRN OTHER 02/01/17 09:15 (Coumadin Consult Pharmacy) 0 ml @ 0 mls/hr UNSCH OTHER 02/01/17 09:15 (Dakin'S 0.25% Soln) USE DAILY WITH DRESS... DAILY TOPICAL 02/12/17 18:00 03/01/17 09:57 (Betadine 10% Oint) 1 applic DAILY TOPICAL 02/15/17 09:00 03/01/17 09:57 (Lactulose Liq) 30 ml TID G-TUBE 02/21/17 13:00 03/01/17 09:55 (Lasix Inj) 20 mg Q8HR IV PUSH 02/23/17 14:00 03/01/17 13:39 (Coumadin) 10 mg DAILY@16 PO 02/24/17 16:00 02/28/17 16:30 (Zaroxolyn) 5 mg DAILY PO 02/27/17 17:00 03/01/17 09:55 (Entresto 24-26 Mg) 1 tab BID PO 03/02/17 09:00 (Coumadin) 2.5 mg ONCE@1600 ONCE PO 03/01/17 16:00 03/01/17 16:01 Urinary Catheter: Yes Assessment to: Continue Brown insert reason: Prolonged Immobilization Date of Insertion: Jan 29, 2017 A/P Problem List: (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 She was was admitted to [facility] emergency department 11/04/16 with difficulty getting her thoughts together. She was found to have multifocal nonhemorrhagic infarcts in left frontal and parietal regions, right frontal lobe and history of moyamoya disease. She was initially awake and following commands with weakness of RLE and some aphasia. She was transferred to [facility] where he had an cerebral angiogram consistent with moyamoya. There were plans to perform extracranial/intracranial bypass. However she had a seizure and ended up being intubated for status either 4/4 or 4/5.. She was found to have a new right frontal infarct area and she was started on Dilantin and Keppra and it was felt that she would not be a candidate for intervention. She has been intubated 9- 10 days and apparently she has been tolerating C Pap trials to some extent but mental status prevents extubation. Treating team was discussing with family trach/PEG. Apparently family requested transfer back to [place] because they live locally here and wanted her closer to home. Patient remained under critical care medicine until 12/24/2016. Lisinopril discontinued on 02/28 in advance of Entresto for systolic heart failure (start on 03/02). Monitor blood pressure and treat elevations on PRN basis. Monitor labs. Urine output noted to be higher since Zaroxolyn. Bilateral large frontal CVA Moyamoya Disease Seizure Disorder - Continue Keppra 1,500 mg q12h - Continue Tegretol 200 mg q12h - Follow for seizure activity - Continue aspirin - Continue Bromocriptine - Tegretol level WNL. Hyperammonemia: 70 -->37. Lactulose 30 ml PO TID. Positive BM noted. Systolic and diastolic heart failure, acute - Continue Lasix and MACKENZIE inhibitor. - Monitor electrolytes and renal function Atrial Fibrillation, acute: Controlled. - INR 1.9. Follow daily INR. Pharmacy to manage. Watch closely. - Continue Coumadin. Hyponatremia, resolved: BMP reviewed today. Na 129 --> 134. Continue FWF. Hyperkalemia, resolved: BMP reviewed today. K 5.5 --> 3.7. Anasarca: Worsening. Continue Lasix 20 mg IV from BID To TID. Add Zaroxolyn 5 mg PO daily. Continue to monitor. Chronic Respiratory Failure Chronic obstructive pulmonary disease Multilobar pneumonia - Pulmonology following, appreciate input. - Continue tracheostomy with supplemental oxygen. - Tobramycin completed, course ended on 01/20/17. - Levsin PRN for increased secretions. Dysphagia Hypoalbuminemia - PEG placed. Continue TF. - Jevity 1.5 through PEG tube with Corby supplementation. Tolerating well. Sacral/Coccyx wound - Continue specialty bed. - Wound care following, appreciate input. Last note with recommendations to pack wound daily with Santyl to sacrococcygeal wound. On right buttock, right ischium apply single layer Xeroform over open wound beds. Prep periwounds with Cavilon skin prep. Cover Xeroform with bordered gauze dressing. Change dressings EVERY OTHER DAY and PRN for dislodgement or soiling. GI Prophylaxis: Pepcid. DVT prophylaxis: SCDs. Coumadin. Discussed with RN and Dr. Obrien Discharge Planning Patient will need long-term care facility. CM continuing to seek placement. Trell Torres Jr. Mar 01, 2017 15:47
[2017-03-01] MEDS: WARFARIN SOD 10 MG TAB PO SCH (15:57)
[2017-03-01] MEDS ORDERED: WARFARIN SOD 2.5 MG TAB PO ONE (16:00)
--- NOTE | 2017-03-01 19:26 | HHI.PR ---
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 Trach secretions thick No new complaint Objective Vital Signs Vital Signs Date Time Temp Pulse Resp B/P Pulse Ox O2 Delivery O2 Flow Rate FiO2 03/01/17 16:00 97.4 83 18 120/67 100 03/01/17 12:00 97.4 81 18 127/63 100 03/01/17 11:58 100 Trach Collar 5.00 28 Humidified 03/01/17 08:30 99 Trach Collar 5.00 28 Humidified 03/01/17 08:00 97.7 79 18 110/61 100 03/01/17 07:30 82 03/01/17 04:00 97.7 86 19 129/70 100 03/01/17 00:00 98.4 90 19 144/73 100 02/28/17 23:23 99 T-piece 28 02/28/17 22:30 T-Piece 5.00 28 02/28/17 20:00 97.7 86 19 134/69 100 I/O 02/28/17 02/28/17 02/28/17 03/01/17 03/01/17 03/01/17 07:00 15:00 23:00 07:00 15:00 23:00 Intake Total 746 ml 530 ml Output Total 1750 ml 725 ml 1150 ml Balance -1750 ml 746 ml -725 ml -1150 ml 530 ml Tube Feeding 746 ml 330 ml Other 200 ml Output Urine Total 1750 ml 725 ml 1150 ml # Bowel Movements 2 2 Result Diagram: 02/27/17 0657 02/27/17 0657 Objective Remarks GENERAL: MBMN WF, on Trach collar SKIN: Warm and dry. HEAD: Normocephalic. EYES: No scleral icterus. No injection or drainage. NECK: Supple, trachea midline. No JVD or lymphadenopathy. has trach CARDIOVASCULAR: Regular rate and rhythm without murmurs, gallops, or rubs. RESPIRATORY: Breath sounds equal bilaterally. No accessory muscle use. GASTROINTESTINAL: Abdomen soft, non-tender, nondistended. has PEG MUSCULOSKELETAL: No cyanosis, or edema. BACK: Nontender without obvious deformity. No CVA tenderness. A/P Assessment and Plan RF, S/P Trach CVA Arango arango disease CAD COPD SZ disorder PLAN: Aerosol nebs Cont trach collar supplement 02, keep sat >90% Trach suction prn. tolerates TF DW RN at BS. Vernon Marx MD Mar 01, 2017 19:26
[2017-03-02] VITALS (8 sets, daily range): BP systolic 116–151; BP diastolic 58–77; PULSE 80–98; RESP 19–22; TEMP 97.1–98.2; O2SAT 97–100
[2017-03-02] MEDS: FERROUS SULFATE 300 MG /5ML UDC PEG SCH ×3 (00:35→23:18)
[2017-03-02] MEDS: ASCORBIC ACID 500 MG TAB PEG SCH ×3 (00:35→23:18)
[2017-03-02] MEDS: BROMOCRIPTINE MESYLATE 2.5 MG TAB OG-TUBE SCH ×3 (00:35→23:19)
[2017-03-02] MEDS: METOPROLOL TARTRATE 25 MG TAB G-TUBE SCH ×3 (00:35→23:18)
[2017-03-02] MEDS: carBAMazepine SUSP 200 MG/10 ML UDC PEG SCH ×3 (00:35→23:35)
[2017-03-02] MEDS: levETIRAcetam 500 MG/5 ML UDC NG SCH ×3 (00:35→23:18)
[2017-03-02] MEDS: FAMOTIDINE 20 MG TAB NG SCH ×3 (00:35→23:19)
[2017-03-02] MEDS: FUROSEMIDE 20 MG/2 ML VIAL IV PUSH SCH ×4 (00:36→23:20)
[2017-03-02] MEDS: CHLORHEXIDINE GLUCONATE 2 % 1 PACK (2 CLOTHS) TOP SCH (04:00)
[2017-03-02] MEDS: FREE WATER G-TUBE SCH ×5 (05:15→23:21)
[2017-03-02] MEDS: CHLORHEXIDINE 0.12% (ORAL KIT) 15 ML CUP MT SCH ×2 (08:00→20:00)
[2017-03-02 08:49] LABS: INTERNATIONAL NORMALIZED RATIO 2.2 RATIO; PROTHROMBIN TIME - PATIENT 25.1 SEC (9.8-11.6)
[2017-03-02] MEDS: JUVEN POWDER 1 PACK G-TUBE SCH ×2 (09:00→23:19)
[2017-03-02] MEDS: POVIDONE IODINE 10% OINT 30 GM TUBE TOPICAL SCH (09:00)
[2017-03-02] MEDS: SENNOSIDES SYRUP 8.8 MG/5 ML CUP G-TUBE SCH ×2 (09:00→23:18)
[2017-03-02] MEDS: METOLAZONE 5 MG TAB PO SCH (09:44)
[2017-03-02] MEDS: LACTULOSE SYRUP 20 GM/30 ML CUP G-TUBE SCH ×3 (09:44→17:01)
[2017-03-02] MEDS: ATORVASTATIN 40 MG TAB G-TUBE SCH (09:44)
[2017-03-02] MEDS: ASPIRIN 81 MG CHEW TAB NG SCH (09:45)
[2017-03-02] MEDS: SODIUM CHLORIDE 0.9% FLUSH 10 ML FLUSH IV FLUSH SCH ×2 (09:45→23:19)
[2017-03-02] MEDS: SACUBITRIL/VALSARTAN 24 MG-26 MG TAB PO SCH ×2 (09:45→23:18)
[2017-03-02] MEDS: FOLIC ACID 1 MG TAB OG-TUBE SCH (09:45)
[2017-03-02] MEDS: SODIUM HYPOCHLORITE 0.25% 500 ML BTL TOPICAL SCH (09:46)
--- NOTE | 2017-03-02 13:52 | HHI.PR ---
Subjective Remarks Follow up on patient with bilateral frontal CVA, Moyamoya disease, seizure d/o, COPD, multilobar pneumonia, acute respiratory failure Anasarca, and systolic/ diastolic heart failure. Patient seen and examined. Not in acute distress. Resting comfortably. Spoke to RN (Akiko), no new acute events overnight or since start of shift. Positive BM. Pt noted pt has gained 20kg over course of past several weeks. Objective Vitals Vital Signs Date Time Temp Pulse Resp B/P Pulse Ox O2 Delivery O2 Flow Rate FiO2 03/02/17 12:00 97.5 85 19 116/59 97 03/02/17 10:41 100 Trach Collar 4.00 28 Humidified 03/02/17 09:09 82 03/02/17 08:24 100 T-piece 28 03/02/17 08:24 100 T-piece 28 03/02/17 08:00 98.2 86 20 123/58 100 03/02/17 05:45 97.1 87 20 118/65 100 03/02/17 00:30 98.1 98 22 125/67 100 03/01/17 21:50 97.9 91 22 129/69 100 03/01/17 19:20 100 T-piece 5.00 28 03/01/17 19:05 Trach Collar 5.00 28 Humidified 03/01/17 19:05 87 03/01/17 16:00 97.4 83 18 120/67 100 I/O 03/01/17 03/01/17 03/01/17 03/02/17 03/02/17 03/02/17 06:59 14:59 22:59 06:59 14:59 22:59 Intake Total 530 ml 0 ml 320 ml Output Total 1150 ml 200 ml 2300 ml Balance -1150 ml 330 ml -2300 ml 320 ml Intake Oral 0 ml 0 ml Tube Feeding 330 ml 120 ml Other 200 ml 200 ml Output Urine Total 1150 ml 200 ml 2300 ml # Bowel Movements 0 0 Result Diagram: 02/27/1757 02/27/17656 Objective Remarks GENERAL: Pt encountered laying a bed, T-piece in place, eyes variably open throughout visit, in NAD. SKIN: Warm and dry. Pitting edema noted along flanks and forearms, improvement is noted along her flanks. HEAD: Normocephalic. EYES: No scleral icterus. No injection or drainage. NECK: Supple, t-piece in place. CARDIOVASCULAR: Regular rate and rhythm without murmurs, gallops, or rubs. Per bedside monitor, 87 BPM RESPIRATORY: Breath sounds equal bilaterally, without rhonchi or wheezes. 100% oxygenation per bedside monitor. GASTROINTESTINAL: Abdomen soft, non-tender. Distention noted. G-tube in place MUSCULOSKELETAL: No cyanosis. Bilateral SCD's in place as were bilateral off loading boots. Neurological: Pt not responding to commands. Pt observed to have spontaneous movement of both lower extremities. Procedures PEG 11/24/2016 Percutaneous tracheostomy. 11/18/2016 Moderate encephalopathy with suggestion of left temporal region cortical irritability. No active seizures. Clinical correlation. Echocardiogram Severe dilated left ventricle. Wall thickness is normal. The left ventricular systolic function is moderately reduced with an estimated ejection fraction in the range of 35-40%. Doppler parameters are consistent with a restrictive left ventricular filling pattern indicative of decreased left ventricular diastolic compliance and increase left atrial pressure (grade 3 diastolic dysfunction). There is severe tricuspid regurgitation. There is severe pulmonary hypertension present ( > 70 mmHg). Severe mitral valve regurgitation. Medications and IVs Current Medications Medications (Trade) Dose Ordered Sig/Ora Route Start Time Stop Time Status Last Admin (Peridex 0.12% Liq) 15 ml BID@08,20 MT 11/18/16 08:00 03/02/17 08:00 (NS Flush) 2 ml BID IV FLUSH 11/18/16 09:00 03/02/17 09:45 (Morphine Inj) 2 mg Q2H PRN IV 11/18/16 03:30 01/16/17 08:23 (Zofran Inj) 4 mg Q6H PRN IV 11/18/16 03:30 11/26/16 03:20 Miscellaneous Information 1 Q361D XX 11/18/16 03:30 11/18/16 03:30 (Chlorhexidine 2% Cloth) Taper DAILY@04 TOP 11/18/16 04:00 11/14/17 03:59 02/15/17 04:00 (Chlorhexidine 2% Cloth) 3 pack UNSCH PRN TOP 11/18/16 03:30 (Aspirin Chew) 324 mg DAILY NG 11/18/16 09:00 03/02/17 09:45 (Parlodel) 2.5 mg Q12HR OG-TUBE 11/18/16 09:00 03/02/17 09:45 (Folate) 1 mg DAILY OG-TUBE 11/18/16 09:00 03/02/17 09:45 (Lopressor Inj) 5 mg Q6H PRN IV PUSH 11/23/16 22:45 01/12/17 03:20 (Dulcolax Supp) 10 mg DAILY PRN RECTAL 12/14/16 15:45 (Pepcid) 20 mg BID NG 12/21/16 21:00 03/02/17 09:45 (Keppra Liq) 1,500 mg Q12HR NG 12/21/16 21:00 03/02/17 09:44 (TEGretol LIQ) 200 mg Q12HR PEG 01/06/17 09:00 03/02/17 09:44 (Corby Powder) 1 pack BID G-TUBE 01/13/17 09:00 03/02/17 09:00 (Ferrous Sulfate Liq) 300 mg BID PEG 01/26/17 21:00 03/02/17 09:44 (Vitamin C) 500 mg BID PEG 01/26/17 21:00 03/02/17 09:45 (Free Water) 100 ml Q6HR G-TUBE 01/29/17 12:00 03/02/17 09:55 (Lopressor) 25 mg Q12HR G-TUBE 02/01/17 09:00 03/02/17 09:45 ([place] 5-325 Mg) 1 tab Q4H PRN G-TUBE 02/01/17 11:30 (Tylenol) 650 mg Q6H PRN G-TUBE 02/01/17 09:30 (Lipitor) 40 mg DAILY G-TUBE 02/01/17 09:00 03/02/17 09:44 (Levsin Liq) 0.125 mg Q4H PRN G-TUBE 02/01/17 11:15 02/18/17 20:52 (Senna Liq) 8.8 mg BID G-TUBE 02/01/17 09:00 03/01/17 09:56 (D50w (Vial) Inj) 25 ml UNSCH PRN IV PUSH 02/01/17 09:15 Glucagon 1 mg 1 mg UNSCH PRN OTHER 02/01/17 09:15 (Coumadin Consult Pharmacy) 0 ml @ 0 mls/hr UNSCH OTHER 02/01/17 09:15 (Dakin'S 0.25% Soln) USE DAILY WITH DRESS... DAILY TOPICAL 02/12/17 18:00 03/02/17 09:46 (Betadine 10% Oint) 1 applic DAILY TOPICAL 02/15/17 09:00 03/02/17 09:00 (Lactulose Liq) 30 ml TID G-TUBE 02/21/17 13:00 03/02/17 12:48 (Lasix Inj) 20 mg Q8HR IV PUSH 02/23/17 14:00 03/02/17 12:48 (Coumadin) 10 mg DAILY@16 PO 02/24/17 16:00 03/01/17 15:57 (Zaroxolyn) 5 mg DAILY PO 02/27/17 17:00 03/02/17 09:44 (Entresto 24-26 Mg) 1 tab BID PO 03/02/17 09:00 03/02/17 09:45 Urinary Catheter: Yes Assessment to: Continue Brown insert reason: Prolonged Immobilization Date of Insertion: Jan 29, 2017 A/P Problem List: (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 She was was admitted to [facility] emergency department 11/04/16 with difficulty getting her thoughts together. She was found to have multifocal nonhemorrhagic infarcts in left frontal and parietal regions, right frontal lobe and history of moyamoya disease. She was initially awake and following commands with weakness of RLE and some aphasia. She was transferred to [facility] where he had an cerebral angiogram consistent with moyamoya. There were plans to perform extracranial/intracranial bypass. However she had a seizure and ended up being intubated for status either 4 or 4/.. She was found to have a new right frontal infarct area and she was started on Dilantin and Keppra and it was felt that she would not be a candidate for intervention. She has been intubated 9- 10 days and apparently she has been tolerating C Pap trials to some extent but mental status prevents extubation. Treating team was discussing with family trach/PEG. Apparently family requested transfer back to [place] because they live locally here and wanted her closer to home. Patient remained under critical care medicine until 12/24/2016. Entresto initiated today for systolic heart failure. Weight gain discussed with Dr. Obrien. TSH noted on 02/01 was elevated (4.160). Continue diuresis. Bilateral large frontal CVA Moyamoya Disease Seizure Disorder - Continue Keppra 1,500 mg q12h - Continue Tegretol 200 mg q12h - Follow for seizure activity - Continue aspirin - Continue Bromocriptine - Tegretol level WNL. Hyperammonemia: 70 -->37. Lactulose 30 ml PO TID. Positive BM noted. Systolic and diastolic heart failure, acute - Continue Lasix and MACKENZIE inhibitor. - Monitor electrolytes and renal function Atrial Fibrillation, acute: Controlled. - INR 1.9. Follow daily INR. Pharmacy to manage. Watch closely. - Continue Coumadin. Hyponatremia, resolved: BMP reviewed today. Na 129 --> 134. Continue FWF. Hyperkalemia, resolved: BMP reviewed today. K 5.5 --> 3.7. Anasarca: Worsening. Continue Lasix 20 mg IV from BID To TID. Add Zaroxolyn 5 mg PO daily. Continue to monitor. Chronic Respiratory Failure Chronic obstructive pulmonary disease Multilobar pneumonia - Pulmonology following, appreciate input. - Continue tracheostomy with supplemental oxygen. - Tobramycin completed, course ended on 01/20/17. - Levsin PRN for increased secretions. Dysphagia Hypoalbuminemia - PEG placed. Continue TF. - Jevity 1.5 through PEG tube with Corby supplementation. Tolerating well. Sacral/Coccyx wound - Continue specialty bed. - Wound care following, appreciate input. Last note with recommendations to pack wound daily with Santyl to sacrococcygeal wound. On right buttock, right ischium apply single layer Xeroform over open wound beds. Prep periwounds with Cavilon skin prep. Cover Xeroform with bordered gauze dressing. Change dressings EVERY OTHER DAY and PRN for dislodgement or soiling. GI Prophylaxis: Pepcid. DVT prophylaxis: SCDs. Coumadin. Pharmacy consulted to assist manage Coumadin level. Discussed with RN and Dr. Obrien Discharge Planning Patient will need long-term care facility. CM continuing to seek placement. Trell Torres Jr. MADISYN Mar 02, 2017 13:52
[2017-03-02] MEDS: WARFARIN SOD 10 MG TAB PO SCH (15:10)
--- NOTE | 2017-03-02 18:11 | HHI.PR ---
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 Trach secretions thick Objective Vital Signs Vital Signs Date Time Temp Pulse Resp B/P Pulse Ox O2 Delivery O2 Flow Rate FiO2 03/02/17 12:00 97.5 85 19 116/59 97 03/02/17 10:41 100 Trach Collar 4.00 28 Humidified 03/02/17 09:09 82 03/02/17 08:24 100 T-piece 28 03/02/17 08:24 100 T-piece 28 03/02/17 08:00 98.2 86 20 123/58 100 03/02/17 05:45 97.1 87 20 118/65 100 03/02/17 00:30 98.1 98 22 125/67 100 03/01/17 21:50 97.9 91 22 129/69 100 03/01/17 19:20 100 T-piece 5.00 28 03/01/17 19:05 Trach Collar 5.00 28 Humidified 03/01/17 19:05 87 I/O 03/01/17 03/01/17 03/01/17 03/02/17 03/02/17 03/02/17 06:59 14:59 22:59 06:59 14:59 22:59 Intake Total 530 ml 0 ml 320 ml 594 ml Output Total 1150 ml 200 ml 2300 ml Balance -1150 ml 330 ml -2300 ml 320 ml 594 ml Intake Oral 0 ml 0 ml Tube Feeding 330 ml 120 ml 394 ml Other 200 ml 200 ml 200 ml Output Urine Total 1150 ml 200 ml 2300 ml # Bowel Movements 0 0 Result Diagram: 02/27/1757 02/27/17 0657 Objective Remarks GENERAL: MBMN WF, on Trach collar SKIN: Warm and dry. HEAD: Normocephalic. EYES: No scleral icterus. No injection or drainage. NECK: Supple, trachea midline. No JVD or lymphadenopathy. has trach CARDIOVASCULAR: Regular rate and rhythm without murmurs, gallops, or rubs. RESPIRATORY: Breath sounds equal bilaterally. No accessory muscle use. GASTROINTESTINAL: Abdomen soft, non-tender, nondistended. has PEG MUSCULOSKELETAL: No cyanosis, or edema. BACK: Nontender without obvious deformity. No CVA tenderness. A/P Assessment and Plan RF, S/P Trach CVA Arango arango disease CAD COPD SZ disorder PLAN: Aerosol nebs Cont trach collar supplement 02, keep sat >90% Trach suction prn. tolerates TF DW RN at BS. Vernon Marx MD Mar 02, 2017 18:11
[2017-03-03] VITALS (10 sets, daily range): BP systolic 107–134; BP diastolic 59–73; PULSE 78–90; RESP 19–22; TEMP 97.2–98.4; O2SAT 93–100
[2017-03-03] MEDS: CHLORHEXIDINE GLUCONATE 2 % 1 PACK (2 CLOTHS) TOP SCH (04:00)
[2017-03-03] MEDS: FUROSEMIDE 20 MG/2 ML VIAL IV PUSH SCH ×3 (07:52→23:38)
[2017-03-03] MEDS: FREE WATER G-TUBE SCH ×4 (07:52→23:39)
[2017-03-03] MEDS: CHLORHEXIDINE 0.12% (ORAL KIT) 15 ML CUP MT SCH ×2 (08:00→20:00)
[2017-03-03 08:12] LABS: INTERNATIONAL NORMALIZED RATIO 2.3 RATIO
[2017-03-03] MEDS: SENNOSIDES SYRUP 8.8 MG/5 ML CUP G-TUBE SCH ×3 (08:55→23:07)
[2017-03-03] MEDS: LACTULOSE SYRUP 20 GM/30 ML CUP G-TUBE SCH ×3 (08:55→17:21)
[2017-03-03] MEDS: levETIRAcetam 500 MG/5 ML UDC NG SCH ×2 (08:55→23:07)
[2017-03-03] MEDS: FERROUS SULFATE 300 MG /5ML UDC PEG SCH ×2 (08:55→23:07)
[2017-03-03] MEDS: carBAMazepine SUSP 200 MG/10 ML UDC PEG SCH ×2 (08:55→23:07)
[2017-03-03] MEDS: JUVEN POWDER 1 PACK G-TUBE SCH ×2 (08:56→23:09)
[2017-03-03] MEDS: FAMOTIDINE 20 MG TAB NG SCH ×2 (08:56→23:08)
[2017-03-03] MEDS: METOPROLOL TARTRATE 25 MG TAB G-TUBE SCH ×2 (08:56→23:08)
[2017-03-03] MEDS: SODIUM CHLORIDE 0.9% FLUSH 10 ML FLUSH IV FLUSH SCH ×2 (08:56→23:38)
[2017-03-03] MEDS: FOLIC ACID 1 MG TAB OG-TUBE SCH (08:56)
[2017-03-03] MEDS: SACUBITRIL/VALSARTAN 24 MG-26 MG TAB PO SCH ×2 (08:56→23:08)
[2017-03-03] MEDS: METOLAZONE 5 MG TAB PO SCH (08:56)
[2017-03-03] MEDS: POVIDONE IODINE 10% OINT 30 GM TUBE TOPICAL SCH (08:56)
[2017-03-03] MEDS: BROMOCRIPTINE MESYLATE 2.5 MG TAB OG-TUBE SCH ×2 (08:56→23:08)
[2017-03-03] MEDS: ATORVASTATIN 40 MG TAB G-TUBE SCH (08:56)
[2017-03-03] MEDS: ASCORBIC ACID 500 MG TAB PEG SCH ×2 (08:56→23:08)
[2017-03-03] MEDS: SODIUM HYPOCHLORITE 0.25% 500 ML BTL TOPICAL SCH (08:57)
--- NOTE | 2017-03-03 15:25 | HHI.PR ---
Subjective Remarks Follow up on patient with bilateral frontal CVA, Moyamoya disease, seizure d/o, COPD, multilobar pneumonia, acute respiratory failure Anasarca, and systolic/ diastolic heart failure. Patient seen and examined. Not in acute distress. Resting comfortably. Spoke to RN (Alta), pitting edema reported in dependent regions. RN also reported pt with spontaneous movements, facial expression reported to have changed. Otherwise no new acute events overnight or since start of shift. Objective Vitals Vital Signs Date Time Temp Pulse Resp B/P Pulse Ox O2 Delivery O2 Flow Rate FiO2 03/03/17 13:40 97.4 90 20 131/62 99 03/03/17 09:30 81 03/03/17 09:24 100 Trach Collar 6.00 28 Humidified 03/03/17 08:39 100 T-piece 28 03/03/17 08:39 100 T-piece 25 03/03/17 08:12 97.6 86 22 126/59 94 03/03/17 04:30 97.7 78 21 115/66 99 03/03/17 00:30 98.4 85 20 121/60 100 03/02/17 21:00 97.7 80 20 118/67 100 03/02/17 16:00 97.3 84 20 151/77 100 I/O 03/02/17 03/02/17 03/02/17 03/03/17 03/03/17 03/03/17 07:00 15:00 23:00 07:00 15:00 23:00 Intake Total 0 ml 320 ml 594 ml 0 ml Output Total 2300 ml 1225 ml 1000 ml 900 ml 1300 ml Balance -2300 ml -905 ml -406 ml -900 ml -1300 ml Intake Oral 0 ml 0 ml 0 ml Tube Feeding 120 ml 394 ml Other 200 ml 200 ml Output Urine Total 2300 ml 1225 ml 1000 ml 900 ml 1300 ml # Bowel Movements 0 0 2 1 Result Diagram: 02/27/17 0657 02/27/17656 Objective Remarks GENERAL: Pt encountered laying a bed, T-piece in place, eyes closed throughout visit, in NAD. SKIN: Warm and dry. Pitting edema noted along flanks and forearms. HEAD: Normocephalic. EYES: No scleral icterus. No injection or drainage. Eye lids were pried open in order to examine her eyes. NECK: Supple, t-piece in place. CARDIOVASCULAR: Regular rate and rhythm without murmurs, gallops, or rubs. Per bedside monitor, 74 BPM RESPIRATORY: Breath sounds equal bilaterally, without rhonchi or wheezes. 97% oxygenation per bedside monitor. GASTROINTESTINAL: Abdomen soft, non-tender. Distention noted. G-tube in place MUSCULOSKELETAL: No cyanosis. Bilateral SCD's in place as were bilateral off loading boots. Neurological: Pt not responding to commands. Pt observed to have spontaneous movement of both legs. Procedures PEG 11/24/2016 Percutaneous tracheostomy. 11/18/2016 Moderate encephalopathy with suggestion of left temporal region cortical irritability. No active seizures. Clinical correlation. Echocardiogram Severe dilated left ventricle. Wall thickness is normal. The left ventricular systolic function is moderately reduced with an estimated ejection fraction in the range of 35-40%. Doppler parameters are consistent with a restrictive left ventricular filling pattern indicative of decreased left ventricular diastolic compliance and increase left atrial pressure (grade 3 diastolic dysfunction). There is severe tricuspid regurgitation. There is severe pulmonary hypertension present ( > 70 mmHg). Severe mitral valve regurgitation. Medications and IVs Current Medications Medications (Trade) Dose Ordered Sig/Ora Route Start Time Stop Time Status Last Admin (Peridex 0.12% Liq) 15 ml BID@08,20 MT 11/18/16 08:00 03/03/17 08:00 (NS Flush) 2 ml BID IV FLUSH 11/18/16 09:00 03/03/17 08:56 (Morphine Inj) 2 mg Q2H PRN IV 11/18/16 03:30 01/16/17 08:23 (Zofran Inj) 4 mg Q6H PRN IV 11/18/16 03:30 11/26/16 03:20 Miscellaneous Information 1 Q361D XX 11/18/16 03:30 11/18/16 03:30 (Chlorhexidine 2% Cloth) Taper DAILY@04 TOP 11/18/16 04:00 11/14/17 03:59 02/15/17 04:00 (Chlorhexidine 2% Cloth) 3 pack UNSCH PRN TOP 11/18/16 03:30 (Parlodel) 2.5 mg Q12HR OG-TUBE 11/18/16 09:00 03/03/17 08:56 (Folate) 1 mg DAILY OG-TUBE 11/18/16 09:00 03/03/17 08:56 (Lopressor Inj) 5 mg Q6H PRN IV PUSH 11/23/16 22:45 01/12/17 03:20 (Dulcolax Supp) 10 mg DAILY PRN RECTAL 12/14/16 15:45 (Pepcid) 20 mg BID NG 12/21/16 21:00 03/03/17 08:56 (Keppra Liq) 1,500 mg Q12HR NG 12/21/16 21:00 03/03/17 08:55 (TEGretol LIQ) 200 mg Q12HR PEG 01/06/17 09:00 03/03/17 08:55 (Corby Powder) 1 pack BID G-TUBE 01/13/17 09:00 03/03/17 08:56 (Ferrous Sulfate Liq) 300 mg BID PEG 01/26/17 21:00 03/03/17 08:55 (Vitamin C) 500 mg BID PEG 01/26/17 21:00 03/03/17 08:56 (Free Water) 100 ml Q6HR G-TUBE 01/29/17 12:00 03/03/17 09:06 (Lopressor) 25 mg Q12HR G-TUBE 02/01/17 09:00 03/03/17 08:56 ([place] 5-325 Mg) 1 tab Q4H PRN G-TUBE 02/01/17 11:30 (Tylenol) 650 mg Q6H PRN G-TUBE 02/01/17 09:30 (Lipitor) 40 mg DAILY G-TUBE 02/01/17 09:00 03/03/17 08:56 (Levsin Liq) 0.125 mg Q4H PRN G-TUBE 02/01/17 11:15 02/18/17 20:52 (Senna Liq) 8.8 mg BID G-TUBE 02/01/17 09:00 03/03/17 08:55 (D50w (Vial) Inj) 25 ml UNSCH PRN IV PUSH 02/01/17 09:15 Glucagon 1 mg 1 mg UNSCH PRN OTHER 02/01/17 09:15 (Coumadin Consult Pharmacy) 0 ml @ 0 mls/hr UNSCH OTHER 02/01/17 09:15 (Dakin'S 0.25% Soln) USE DAILY WITH DRESS... DAILY TOPICAL 02/12/17 18:00 03/03/17 08:57 (Betadine 10% Oint) 1 applic DAILY TOPICAL 02/15/17 09:00 03/03/17 08:56 (Lactulose Liq) 30 ml TID G-TUBE 02/21/17 13:00 03/03/17 12:02 (Lasix Inj) 20 mg Q8HR IV PUSH 02/23/17 14:00 03/03/17 14:13 (Coumadin) 10 mg DAILY@16 PO 02/24/17 16:00 03/02/17 15:10 (Zaroxolyn) 5 mg DAILY PO 02/27/17 17:00 03/03/17 08:56 (Entresto 24-26 Mg) 1 tab BID PO 03/02/17 09:00 03/03/17 08:56 Urinary Catheter: Yes Assessment to: Continue Brown insert reason: Prolonged Immobilization Date of Insertion: Jan 29, 2017 A/P Problem List: (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 She was was admitted to [facility] emergency department 11/04/16 with difficulty getting her thoughts together. She was found to have multifocal nonhemorrhagic infarcts in left frontal and parietal regions, right frontal lobe and history of moyamoya disease. She was initially awake and following commands with weakness of RLE and some aphasia. She was transferred to [facility] where he had an cerebral angiogram consistent with moyamoya. There were plans to perform extracranial/intracranial bypass. However she had a seizure and ended up being intubated for status either 4/4 or 4/5.. She was found to have a new right frontal infarct area and she was started on Dilantin and Keppra and it was felt that she would not be a candidate for intervention. She has been intubated 9- 10 days and apparently she has been tolerating C Pap trials to some extent but mental status prevents extubation. Treating team was discussing with family trach/PEG. Apparently family requested transfer back to [place] because they live locally here and wanted her closer to home. Patient remained under critical care medicine until 12/24/2016. Urine output remains consistent. Weight increase of 1 kg in 24 hrs. Blood pressure stable with initiation of Entresto. Bilateral large frontal CVA Moyamoya Disease Seizure Disorder - Continue Keppra 1,500 mg q12h - Continue Tegretol 200 mg q12h - Follow for seizure activity - Continue aspirin - Continue Bromocriptine - Tegretol level WNL. Hyperammonemia: 70 -->37. Lactulose 30 ml PO TID. Positive BM noted. Systolic and diastolic heart failure, acute - Continue Lasix and MACKENZIE inhibitor. - Monitor electrolytes and renal function Atrial Fibrillation, acute: Controlled. - INR 1.9. Follow daily INR. Pharmacy to manage. Watch closely. - Continue Coumadin. Hyponatremia, resolved: BMP reviewed today. Na 129 --> 134. Continue FWF. Hyperkalemia, resolved: BMP reviewed today. K 5.5 --> 3.7. Anasarca: Worsening. Continue Lasix 20 mg IV from BID To TID. Add Zaroxolyn 5 mg PO daily. Continue to monitor. Chronic Respiratory Failure Chronic obstructive pulmonary disease Multilobar pneumonia - Pulmonology following, appreciate input. - Continue tracheostomy with supplemental oxygen. - Tobramycin completed, course ended on 01/20/17. - Levsin PRN for increased secretions. Dysphagia Hypoalbuminemia - PEG placed. Continue TF. - Jevity 1.5 through PEG tube with Corby supplementation. Tolerating well. Sacral/Coccyx wound - Continue specialty bed. - Wound care following, appreciate input. Last note with recommendations to pack wound daily with Santyl to sacrococcygeal wound. On right buttock, right ischium apply single layer Xeroform over open wound beds. Prep periwounds with Cavilon skin prep. Cover Xeroform with bordered gauze dressing. Change dressings EVERY OTHER DAY and PRN for dislodgement or soiling. GI Prophylaxis: Pepcid. DVT prophylaxis: SCDs. Coumadin. Pharmacy consulted to assist manage Coumadin level. Discussed with RN and Dr. Yuan Discharge Planning Patient will need long-term care facility. CM continuing to seek placement. Trell Torres Jr. MADISYN Mar 03, 2017 15:25
[2017-03-03] MEDS: WARFARIN SOD 10 MG TAB PO SCH (15:28)
--- NOTE | 2017-03-03 19:14 | HHI.PR ---
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 Trach secretions thick more awake RN noted some movements of extremities Objective Vital Signs Vital Signs Date Time Temp Pulse Resp B/P Pulse Ox O2 Delivery O2 Flow Rate FiO2 03/03/17 17:58 100 T-piece 6.00 28 03/03/17 17:57 100 T-piece 6.00 28 03/03/17 15:59 97.2 79 20 107/59 100 03/03/17 13:40 97.4 90 20 131/62 99 03/03/17 09:30 81 03/03/17 09:24 100 Trach Collar 6.00 28 Humidified 03/03/17 08:39 100 T-piece 28 03/03/17 08:39 100 T-piece 25 03/03/17 08:12 97.6 86 22 126/59 94 03/03/17 04:30 97.7 78 21 115/66 99 03/03/17 00:30 98.4 85 20 121/60 100 03/02/17 21:00 97.7 80 20 118/67 100 I/O 03/02/17 03/02/17 03/02/17 03/03/17 03/03/17 03/03/17 07:00 15:00 23:00 07:00 15:00 23:00 Intake Total 0 ml 320 ml 594 ml 0 ml 830 ml Output Total 2300 ml 1225 ml 1000 ml 900 ml 1300 ml 800 ml Balance -2300 ml -905 ml -406 ml -900 ml -1300 ml 30 ml Intake Oral 0 ml 0 ml 0 ml Tube Feeding 120 ml 394 ml 630 ml Other 200 ml 200 ml 200 ml Output Urine Total 2300 ml 1225 ml 1000 ml 900 ml 1300 ml 800 ml # Bowel Movements 0 0 2 1 1 Result Diagram: 02/27/1765602/27/17656 Objective Remarks GENERAL: MBMN WF, on Trach collar SKIN: Warm and dry. HEAD: Normocephalic. EYES: No scleral icterus. No injection or drainage. NECK: Supple, trachea midline. No JVD or lymphadenopathy. has trach CARDIOVASCULAR: Regular rate and rhythm without murmurs, gallops, or rubs. RESPIRATORY: Breath sounds equal bilaterally. No accessory muscle use. GASTROINTESTINAL: Abdomen soft, non-tender, nondistended. has PEG MUSCULOSKELETAL: No cyanosis, or edema. BACK: Nontender without obvious deformity. No CVA tenderness. A/P Assessment and Plan RF, S/P Trach CVA Arango arango disease CAD COPD SZ disorder PLAN: Aerosol nebs Cont trach collar supplement 02, keep sat >90% Trach suction prn. tolerates TF DW RN at BS. Vernon Marx MD Mar 03, 2017 19:14
[2017-03-04] VITALS (10 sets, daily range): BP systolic 112–142; BP diastolic 61–80; PULSE 64–97; RESP 16–24; TEMP 97.3–98.5; O2SAT 95–100
[2017-03-04] MEDS: CHLORHEXIDINE GLUCONATE 2 % 1 PACK (2 CLOTHS) TOP SCH (04:00)
[2017-03-04] MEDS: FREE WATER G-TUBE SCH ×3 (05:03→17:35)
[2017-03-04] MEDS: FUROSEMIDE 20 MG/2 ML VIAL IV PUSH SCH ×3 (05:03→21:44)
[2017-03-04] MEDS: CHLORHEXIDINE 0.12% (ORAL KIT) 15 ML CUP MT SCH (08:00)
[2017-03-04] MEDS: JUVEN POWDER 1 PACK G-TUBE SCH ×2 (09:00→21:00)
[2017-03-04] MEDS: POVIDONE IODINE 10% OINT 30 GM TUBE TOPICAL SCH (09:00)
[2017-03-04] MEDS: SENNOSIDES SYRUP 8.8 MG/5 ML CUP G-TUBE SCH ×2 (09:00→21:00)
[2017-03-04 09:04] LABS: INTERNATIONAL NORMALIZED RATIO 2.3 RATIO; PROTHROMBIN TIME - PATIENT 26.1 SEC (9.8-11.6)
[2017-03-04] MEDS: ATORVASTATIN 40 MG TAB G-TUBE SCH (09:16)
[2017-03-04] MEDS: FERROUS SULFATE 300 MG /5ML UDC PEG SCH ×2 (09:16→21:44)
[2017-03-04] MEDS: carBAMazepine SUSP 200 MG/10 ML UDC PEG SCH ×2 (09:16→21:44)
[2017-03-04] MEDS: LACTULOSE SYRUP 20 GM/30 ML CUP G-TUBE SCH ×3 (09:16→17:35)
[2017-03-04] MEDS: SACUBITRIL/VALSARTAN 24 MG-26 MG TAB PO SCH ×2 (09:16→21:44)
[2017-03-04] MEDS: ASCORBIC ACID 500 MG TAB PEG SCH ×2 (09:16→21:44)
[2017-03-04] MEDS: levETIRAcetam 500 MG/5 ML UDC NG SCH ×2 (09:16→21:44)
[2017-03-04] MEDS: FAMOTIDINE 20 MG TAB NG SCH ×2 (09:16→21:44)
[2017-03-04] MEDS: BROMOCRIPTINE MESYLATE 2.5 MG TAB OG-TUBE SCH ×2 (09:17→21:55)
[2017-03-04] MEDS: SODIUM CHLORIDE 0.9% FLUSH 10 ML FLUSH IV FLUSH SCH ×2 (09:17→21:00)
[2017-03-04] MEDS: METOPROLOL TARTRATE 25 MG TAB G-TUBE SCH ×2 (09:17→21:44)
[2017-03-04] MEDS: FOLIC ACID 1 MG TAB OG-TUBE SCH (09:17)
[2017-03-04] MEDS: METOLAZONE 5 MG TAB PO SCH (09:17)
[2017-03-04] MEDS: SODIUM HYPOCHLORITE 0.25% 500 ML BTL TOPICAL SCH (09:17)
--- NOTE | 2017-03-04 11:10 | PD.PLAS.PN ---
Subjective Remarks RN requested reevaluation of sacral pressure ulcer due to odor. Objective Vital Signs Date Time Temp Pulse Resp B/P Pulse Ox O2 Delivery O2 Flow Rate FiO2 03/04/17 08:39 97.3 80 24 112/65 95 03/04/17 08:31 100 T-piece 5.00 03/04/17 08:31 100 T-piece 5.00 03/04/17 07:10 83 03/04/17 06:01 97.8 86 19 131/72 100 03/04/17 01:04 98.3 97 19 126/66 97 03/03/17 21:08 98.1 78 19 134/73 93 03/03/17 17:58 100 T-piece 6.00 03/03/17 17:57 100 T-piece 6.00 03/03/17 15:59 97.2 79 20 107/59 100 03/03/17 13:40 97.4 90 20 131/62 99 I/O 03/03/17 03/03/17 03/03/17 03/04/17 03/04/17 03/04/17 07:00 15:00 23:00 07:00 15:00 23:00 Intake Total 0 ml 830 ml 200 ml Output Total 900 ml 1300 ml 800 ml 1700 ml 800 ml Balance -900 ml -1300 ml 30 ml -1700 ml -600 ml Intake Oral 0 ml Tube Feeding 630 ml Other 200 ml 200 ml Output Urine Total 900 ml 1300 ml 800 ml 1700 ml 800 ml # Bowel Movements 2 1 1 1 Laboratory Tests Test 03/04/17 07:22 Prothrombin Time 26.1 Prothromb Time International 2.3 Ratio Exam Findings No significant change in wound appearance. Wound bed a mix of red granulation tissue and black/brown necrotic tissue. Odor is present. No purulent drainage. No evidence of cellulitis to surrounding tissue. Assessment and Plan Diagnosis: (1) Pressure ulcer of sacral region, stage 4 Assessment and Plan There is not a significant amount of necrotic tissue to require a surgical debridement of the wound. Discussed with RN. Will recommend wound vac with veraflow and cleanse choice dressing. Will consult [facility] for evaluation and application. Yuliana Lopez Mar 04, 2017 11:10
--- NOTE | 2017-03-04 12:18 | PD.WCN.NOT ---
Wound Consult Description: Reconsult for possible wound VAC placement per MADISYN Lopez. Communicated with: ANDRE Holm Recommendation: Sacral wound: Change Wound VAC Tuesday, Tuesday, Tuesday Settings @125mmHg low continuous suction Additional Information: Patient seen for Stage IV sacral wound on North with KAITLIN Marquez for possible wound VAC placement. Patient noted on a WAVE specialty surface and further positioned to her right side for assessment after removing heel raiser boots and pausing tube feed. Dressing removed to reveal a vascular full thickness wound on the sacrum with minimal sanguinous drainage that coagulates < 1min. Wound was cleansed with wound cleanser and gauze. Wound has ~15% palpated and visualized bone within the ~85% granulation tissue. Wound measures 3.3cm x 2.3cm x 2.8cm with undermining noted from 7 o'clock to 5 o'clock, deepest is @ 4 o'clock of 2.8cm. Neg Pressure Wound Therapy Wound Location Wound Location: Sacrum Wound Description Length: 3.3cm Width: 2.3cm Depth: 2.8cm Undermining: from 7-5 o'clock with deepest noted @4 o'clock of 2.8cm Wound bed appearance: ~15% bone and ~85% granulation tissue Periwound appearance: Unremarkable Settings Suction: 125 mmHg, Continuous Intensity: Low Other Information: Bridged, Mushroomed Foam type: Black Number of pieces: other (1 piece of coiled black granufoam used in wound bed, 3 pieces used to bridge to left hip with trac pad placement) Additonal Information Stoma paste used in gluteal cleft to obtain and maintain seal Stephany Fang [facility] Mar 04, 2017 12:17
[2017-03-04] MEDS: WARFARIN SOD 10 MG TAB PO SCH (14:58)
--- NOTE | 2017-03-04 15:59 | HHI.PR ---
Subjective Remarks Follow up on patient with bilateral frontal CVA, Moyamoya disease, seizure d/o, COPD, multilobar pneumonia, acute respiratory failure Anasarca, and systolic/ diastolic heart failure. Patient seen and examined. Not in acute distress. Resting comfortably. Spoke to RN (Alta), who again reported pt with spontaneous movements, facial expression reported to have changed. She voiced concern about difficulty turning pt's head/neck as head is turned leftward for prolonged periods of time. RN also reported pt has evidenced "eye defensiveness" when RN examined eyes earlier in the day. Otherwise no new acute events overnight or since start of shift. Objective Vitals Vital Signs Date Time Temp Pulse Resp B/P Pulse Ox O2 Delivery O2 Flow Rate FiO2 03/04/17 15:49 97.7 89 22 142/78 100 03/04/17 14:40 97.5 64 16 138/63 97 03/04/17 11:28 98.1 80 20 132/61 95 03/04/17 11:27 100 Trach Collar 6.00 28 03/04/17 08:39 97.3 80 24 112/65 95 03/04/17 08:31 100 T-piece 5.00 28 03/04/17 08:31 100 T-piece 5.00 28 03/04/17 07:10 83 03/04/17 06:01 97.8 86 19 131/72 100 03/04/17 01:04 98.3 97 19 126/66 97 03/03/17 21:08 98.1 78 19 134/73 93 03/03/17 17:58 100 T-piece 6.00 03/03/17 17:57 100 T-piece 6.00 28 03/03/17 15:59 97.2 79 20 107/59 100 I/O 03/03/17 03/03/17 03/03/17 03/04/17 03/04/17 03/04/17 07:00 15:00 23:00 07:00 15:00 23:00 Intake Total 0 ml 830 ml 200 ml Output Total 900 ml 1300 ml 800 ml 1700 ml 800 ml 450 ml Balance -900 ml -1300 ml 30 ml -1700 ml -600 ml -450 ml Intake Oral 0 ml Tube Feeding 630 ml Other 200 ml 200 ml Output Urine Total 900 ml 1300 ml 800 ml 1700 ml 800 ml 450 ml # Voids 3 # Bowel Movements 2 1 1 1 Objective Remarks GENERAL: Pt encountered laying a bed, T-piece in place, eyes closed throughout visit, in NAD. Pt evidencing 10 kg weight loss since earlier in week. SKIN: Warm and dry. Pitting edema noted along flanks and forearms. HEAD: Normocephalic. EYES: No scleral icterus. No injection or drainage. Eye lids were pried open in order to examine her eyes. NECK: Supple, t-piece in place. CARDIOVASCULAR: Regular rate and rhythm without murmurs, gallops, or rubs. Per bedside monitor, 74 BPM RESPIRATORY: Breath sounds equal bilaterally, without rhonchi or wheezes. 97% oxygenation per bedside monitor. GASTROINTESTINAL: Abdomen soft, non-tender. Distention noted. G-tube in place MUSCULOSKELETAL: No cyanosis. Bilateral SCD's in place as were bilateral off loading boots. Neurological: Pt not responding to commands. Eyes opened when eye right eye lid was pried open. No tracking noted. Procedures PEG 11/24/2016 Percutaneous tracheostomy. 11/18/2016 Moderate encephalopathy with suggestion of left temporal region cortical irritability. No active seizures. Clinical correlation. Echocardiogram Severe dilated left ventricle. Wall thickness is normal. The left ventricular systolic function is moderately reduced with an estimated ejection fraction in the range of 35-40%. Doppler parameters are consistent with a restrictive left ventricular filling pattern indicative of decreased left ventricular diastolic compliance and increase left atrial pressure (grade 3 diastolic dysfunction). There is severe tricuspid regurgitation. There is severe pulmonary hypertension present ( > 70 mmHg). Severe mitral valve regurgitation. Medications and IVs Current Medications Medications (Trade) Dose Ordered Sig/Ora Route Start Time Stop Time Status Last Admin (Peridex 0.12% Liq) 15 ml BID@08,20 MT 11/18/16 08:00 03/04/17 08:00 (NS Flush) 2 ml BID IV FLUSH 11/18/16 09:00 03/04/17 09:17 (Morphine Inj) 2 mg Q2H PRN IV 11/18/16 03:30 01/16/17 08:23 (Zofran Inj) 4 mg Q6H PRN IV 11/18/16 03:30 11/26/16 03:20 Miscellaneous Information 1 Q361D XX 11/18/16 03:30 11/18/16 03:30 (Chlorhexidine 2% Cloth) Taper DAILY@04 TOP 11/18/16 04:00 11/14/17 03:59 02/15/17 04:00 (Chlorhexidine 2% Cloth) 3 pack UNSCH PRN TOP 11/18/16 03:30 (Parlodel) 2.5 mg Q12HR OG-TUBE 11/18/16 09:00 03/04/17 09:17 (Folate) 1 mg DAILY OG-TUBE 11/18/16 09:00 03/04/17 09:17 (Lopressor Inj) 5 mg Q6H PRN IV PUSH 11/23/16 22:45 01/12/17 03:20 (Dulcolax Supp) 10 mg DAILY PRN RECTAL 12/14/16 15:45 (Pepcid) 20 mg BID NG 12/21/16 21:00 03/04/17 09:16 (Keppra Liq) 1,500 mg Q12HR NG 12/21/16 21:00 03/04/17 09:16 (TEGretol LIQ) 200 mg Q12HR PEG 01/06/17 09:00 03/04/17 09:16 (Corby Powder) 1 pack BID G-TUBE 01/13/17 09:00 03/04/17 09:00 (Ferrous Sulfate Liq) 300 mg BID PEG 01/26/17 21:00 03/04/17 09:16 (Vitamin C) 500 mg BID PEG 01/26/17 21:00 03/04/17 09:16 (Free Water) 100 ml Q6HR G-TUBE 01/29/17 12:00 03/04/17 09:17 (Lopressor) 25 mg Q12HR G-TUBE 02/01/17 09:00 03/04/17 09:17 ([place] 5-325 Mg) 1 tab Q4H PRN G-TUBE 02/01/17 11:30 (Tylenol) 650 mg Q6H PRN G-TUBE 02/01/17 09:30 (Lipitor) 40 mg DAILY G-TUBE 02/01/17 09:00 03/04/17 09:16 (Levsin Liq) 0.125 mg Q4H PRN G-TUBE 02/01/17 11:15 02/18/17 20:52 (Senna Liq) 8.8 mg BID G-TUBE 02/01/17 09:00 03/03/17 08:55 (D50w (Vial) Inj) 25 ml UNSCH PRN IV PUSH 02/01/17 09:15 Glucagon 1 mg 1 mg UNSCH PRN OTHER 02/01/17 09:15 (Coumadin Consult Pharmacy) 0 ml @ 0 mls/hr UNSCH OTHER 02/01/17 09:15 (Dakin'S 0.25% Soln) USE DAILY WITH DRESS... DAILY TOPICAL 02/12/17 18:00 03/04/17 09:17 (Betadine 10% Oint) 1 applic DAILY TOPICAL 02/15/17 09:00 03/04/17 09:00 (Lactulose Liq) 30 ml TID G-TUBE 02/21/17 13:00 03/04/17 12:22 (Lasix Inj) 20 mg Q8HR IV PUSH 02/23/17 14:00 03/04/17 14:58 (Coumadin) 10 mg DAILY@16 PO 02/24/17 16:00 03/04/17 14:58 (Zaroxolyn) 5 mg DAILY PO 02/27/17 17:00 03/04/17 09:17 (Entresto 24-26 Mg) 1 tab BID PO 03/02/17 09:00 03/04/17 09:16 Urinary Catheter: Yes Assessment to: Continue Brown insert reason: Prolonged Immobilization Date of Insertion: Jan 29, 2017 A/P Problem List: (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 She was was admitted to [facility] emergency department 11/04/16 with difficulty getting her thoughts together. She was found to have multifocal nonhemorrhagic infarcts in left frontal and parietal regions, right frontal lobe and history of moyamoya disease. She was initially awake and following commands with weakness of RLE and some aphasia. She was transferred to [facility] where he had an cerebral angiogram consistent with moyamoya. There were plans to perform extracranial/intracranial bypass. However she had a seizure and ended up being intubated for status either 4/ or 4.. She was found to have a new right frontal infarct area and she was started on Dilantin and Keppra and it was felt that she would not be a candidate for intervention. She has been intubated 9- 10 days and apparently she has been tolerating C Pap trials to some extent but mental status prevents extubation. Treating team was discussing with family trach/PEG. Apparently family requested transfer back to [place] because they live locally here and wanted her closer to home. Patient remained under critical care medicine until 12/24/2016. Weight loss of 10 kg in 24 hrs. Blood pressure stable. Labs ordered x 3 days. Bilateral large frontal CVA Moyamoya Disease Seizure Disorder - Continue Keppra 1,500 mg q12h - Continue Tegretol 200 mg q12h - Follow for seizure activity - Continue aspirin - Continue Bromocriptine - Tegretol level WNL. Hyperammonemia: 70 -->37. Lactulose 30 ml PO TID. Positive BM noted. Systolic and diastolic heart failure, acute - Continue Lasix and MACKENZIE inhibitor. - Monitor electrolytes and renal function Atrial Fibrillation, acute: Controlled. - INR 1.9. Follow daily INR. Pharmacy to manage. Watch closely. - Continue Coumadin. Hyponatremia, resolved: BMP reviewed today. Na 129 --> 134. Continue FWF. Hyperkalemia, resolved: BMP reviewed today. K 5.5 --> 3.7. Anasarca: Worsening. Continue Lasix 20 mg IV from BID To TID. Add Zaroxolyn 5 mg PO daily. Continue to monitor. Chronic Respiratory Failure Chronic obstructive pulmonary disease Multilobar pneumonia - Pulmonology following, appreciate input. - Continue tracheostomy with supplemental oxygen. - Tobramycin completed, course ended on 01/20/17. - Levsin PRN for increased secretions. Dysphagia Hypoalbuminemia - PEG placed. Continue TF. - Jevity 1.5 through PEG tube with Corby supplementation. Tolerating well. Sacral/Coccyx wound - Continue specialty bed. - Wound care following, appreciate input. Last note with recommendations to pack wound daily with Santyl to sacrococcygeal wound. On right buttock, right ischium apply single layer Xeroform over open wound beds. Prep periwounds with Cavilon skin prep. Cover Xeroform with bordered gauze dressing. Change dressings EVERY OTHER DAY and PRN for dislodgement or soiling. GI Prophylaxis: Pepcid. DVT prophylaxis: SCDs. Coumadin. Pharmacy consulted to assist manage Coumadin level. Discussed with RN and Dr. Yuan Discharge Planning Patient will need long-term care facility. CM continuing to seek placement. Trell Torres Jr. MADISYN Mar 04, 2017 15:59
--- NOTE | 2017-03-04 18:10 | HHI.PR ---
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 Trach secretions thick had small amount of bleed at trach site, better now Objective Vital Signs Vital Signs Date Time Temp Pulse Resp B/P Pulse Ox O2 Delivery O2 Flow Rate FiO2 03/04/17 15:49 97.7 89 22 142/78 100 03/04/17 14:40 /63 03/04/17 11:28 98.1 80 20 132/61 95 03/04/17 11:27 100 Trach Collar 6.00 28 Humidified 03/04/17 08:39 97.3 80 24 112/65 95 03/04/17 08:31 100 T-piece 5.00 28 03/04/17 08:31 100 T-piece 5.00 03/04/17 07:10 83 03/04/17 06:01 97.8 86 19 131/72 100 03/04/17 01:04 98.3 97 19 126/66 97 03/03/17 21:08 98.1 78 19 134/73 93 I/O 03/03/17 03/03/17 03/03/17 03/04/17 03/04/17 03/04/17 07:00 15:00 23:00 07:00 15:00 23:00 Intake Total 0 ml 830 ml 200 ml 782 ml Output Total 900 ml 1300 ml 800 ml 1700 ml 800 ml 450 ml Balance -900 ml -1300 ml 30 ml -1700 ml -600 ml 332 ml Intake Oral 0 ml Tube Feeding 630 ml 582 ml Other 200 ml 200 ml 200 ml Output Urine Total 900 ml 1300 ml 800 ml 1700 ml 800 ml 450 ml # Voids 3 # Bowel Movements 2 1 1 1 Objective Remarks GENERAL: MBMN WF, on Trach collar SKIN: Warm and dry. HEAD: Normocephalic. EYES: No scleral icterus. No injection or drainage. NECK: Supple, trachea midline. No JVD or lymphadenopathy. has trach CARDIOVASCULAR: Regular rate and rhythm without murmurs, gallops, or rubs. RESPIRATORY: Breath sounds equal bilaterally. No accessory muscle use. GASTROINTESTINAL: Abdomen soft, non-tender, nondistended. has PEG MUSCULOSKELETAL: No cyanosis, or edema. BACK: Nontender without obvious deformity. No CVA tenderness. A/P Assessment and Plan RF, S/P Trach CVA Arango arango disease CAD COPD SZ disorder PLAN: Aerosol nebs Cont trach collar supplement 02, keep sat >90% Trach suction prn. tolerates TF DW RN at BS. Vernon Marx MD Mar 04, 2017 18:10
[2017-03-05] VITALS (8 sets, daily range): BP systolic 107–146; BP diastolic 51–82; PULSE 77–99; RESP 18–22; TEMP 97.7–98.6; O2SAT 98–100
[2017-03-05] MEDS: CHLORHEXIDINE GLUCONATE 2 % 1 PACK (2 CLOTHS) TOP SCH (04:00)
[2017-03-05] MEDS: FREE WATER G-TUBE SCH ×5 (06:00→23:03)
[2017-03-05] MEDS: FUROSEMIDE 20 MG/2 ML VIAL IV PUSH SCH ×3 (06:01→22:45)
[2017-03-05] MEDS: CHLORHEXIDINE 0.12% (ORAL KIT) 15 ML CUP MT SCH ×2 (08:00→20:00)
[2017-03-05] MEDS: SODIUM CHLORIDE 0.9% FLUSH 10 ML FLUSH IV FLUSH SCH ×2 (09:00→22:42)
[2017-03-05] MEDS: POVIDONE IODINE 10% OINT 30 GM TUBE TOPICAL SCH (09:00)
[2017-03-05] MEDS: JUVEN POWDER 1 PACK G-TUBE SCH ×2 (09:00→21:00)
[2017-03-05] MEDS: FAMOTIDINE 20 MG TAB NG SCH ×2 (09:00→22:44)
[2017-03-05] MEDS: SENNOSIDES SYRUP 8.8 MG/5 ML CUP G-TUBE SCH ×2 (09:00→22:41)
[2017-03-05] MEDS: FERROUS SULFATE 300 MG /5ML UDC PEG SCH ×2 (10:29→22:44)
[2017-03-05] MEDS: METOLAZONE 5 MG TAB PO SCH (10:30)
[2017-03-05] MEDS: FOLIC ACID 1 MG TAB OG-TUBE SCH (10:30)
[2017-03-05] MEDS: carBAMazepine SUSP 200 MG/10 ML UDC PEG SCH ×2 (10:31→22:44)
[2017-03-05] MEDS: LACTULOSE SYRUP 20 GM/30 ML CUP G-TUBE SCH ×3 (10:31→17:36)
[2017-03-05] MEDS: levETIRAcetam 500 MG/5 ML UDC NG SCH ×2 (10:32→22:43)
[2017-03-05] MEDS: ASCORBIC ACID 500 MG TAB PEG SCH ×2 (10:33→22:44)
[2017-03-05] MEDS: METOPROLOL TARTRATE 25 MG TAB G-TUBE SCH ×2 (10:34→22:41)
[2017-03-05] MEDS: SACUBITRIL/VALSARTAN 24 MG-26 MG TAB PO SCH ×2 (10:34→22:44)
[2017-03-05] MEDS: ATORVASTATIN 40 MG TAB G-TUBE SCH (10:34)
[2017-03-05] MEDS: BROMOCRIPTINE MESYLATE 2.5 MG TAB OG-TUBE SCH ×2 (10:35→22:44)
[2017-03-05] MEDS: SODIUM HYPOCHLORITE 0.25% 500 ML BTL TOPICAL SCH (10:36)
[2017-03-05 11:19] LABS: INTERNATIONAL NORMALIZED RATIO 2.2 RATIO; PROTHROMBIN TIME - PATIENT 25.1 SEC (9.8-11.6)
[2017-03-05 11:32] LABS: BICARBONATE 34.6 MEQ/L (21.0-32.0); POTASSIUM 3.4 MEQ/L (3.5-5.1)
--- NOTE | 2017-03-05 14:22 | HHI.PR ---
Subjective Remarks Follow up on patient with bilateral frontal CVA, Moyamoya disease, seizure d/o, COPD, multilobar pneumonia, acute respiratory failure Anasarca, and systolic/ diastolic heart failure. Patient seen and examined. Not in acute distress. Resting comfortably. Spoke to RN (Jose), no new acute events overnight or since start of shift. Objective Vitals Vital Signs Date Time Temp Pulse Resp B/P Pulse Ox O2 Delivery O2 Flow Rate FiO2 03/05/17 12:56 99 03/05/17 11:56 97.7 94 22 146/73 100 03/05/17 11:41 98 T-piece 28 03/05/17 10:48 98 T-Piece 28 Humidified 03/05/17 08:04 97.7 85 22 117/82 100 03/05/17 05:00 98.6 77 18 107/51 100 03/05/17 02:57 98.1 83 18 113/68 100 03/05/17 00:38 100 T-Piece 28 Humidified 03/04/17 21:05 98 T-piece 6.00 28 03/04/17 20:00 87 03/04/17 15:49 97.7 89 22 142/78 100 03/04/17 14:40 /63 I/O 03/04/17 03/04/17 03/04/17 03/05/17 03/05/17 03/05/17 07:00 15:00 23:00 07:00 15:00 23:00 Intake Total 200 ml 1104 ml 596 ml Output Total 1700 ml 800 ml 450 ml 630 ml 1050 ml Balance -1700 ml -600 ml 654 ml -34 ml -1050 ml Tube Feeding 904 ml 396 ml Other 200 ml 200 ml 200 ml Output Urine Total 1700 ml 800 ml 450 ml 630 ml 1050 ml # Voids 3 # Bowel Movements 1 2 1 Result Diagram: 03/05/17 1056 Imaging Last Impressions Abdomen X-Ray 02/11/17 0000 Signed Impressions: Service Date/Time: Saturday, February 11, 2017 17:52 - CONCLUSION: Minimal colonic distention. Kenneth Frost MD FACR Catheter Change 02/10/17 0000 Signed Impressions: Service Date/Time: February 13:47 - CONCLUSION: Uncomplicated fluoroscopic guided gastrostomy tube replacement. Positioning confirmed. The tube can be used immediately. Nghia Pacheco MD Lower Extremity Ultrasound 02/01/17 0000 Signed Impressions: Service Date/Time: Wednesday, February 01, 2017 13:23 - CONCLUSION: Normal examination. Gray Veronica MD Chest X-Ray 02/01/17 0000 Signed Impressions: Service Date/Time: Wednesday, February 01, 2017 08:45 - CONCLUSION: 1. Stable tracheostomy. 2. Mild interstitial prominence may reflect slight positive fluid balance. Christiano Villagran MD Brain MRI 01/06/17 0000 Signed Impressions: Service Date/Time: January 14:19 - CONCLUSION: Continued evolutionary changes of large bilateral frontal lobe infarcts. Sami Mccarthy MD Objective Remarks GENERAL: Pt encountered laying a bed, T-piece in place, eyes mostly closed throughout visit (though briefly opened when stethoscope was applied to her chest), in NAD. SKIN: Warm and dry. Pitting edema noted along flanks and forearms. HEAD: Normocephalic. EYES: No scleral icterus. No injection or drainage. NECK: Supple, t-piece in place. CARDIOVASCULAR: Regular rate and rhythm without murmurs, gallops, or rubs. Per bedside monitor, 74 BPM RESPIRATORY: Breath sounds equal bilaterally, without rhonchi or wheezes. 100% oxygenation per bedside monitor. GASTROINTESTINAL: Abdomen soft, non-tender. Distention noted. G-tube in place MUSCULOSKELETAL: No cyanosis. Bilateral SCD's in place as were bilateral off loading boots. Pt moved left foot when pedal pulse was palpated. Neurological: Pt not responding to commands. Eyes opened briefly (as noted above). No tracking noted. Procedures PEG 11/24/2016 Percutaneous tracheostomy. 11/18/2016 Moderate encephalopathy with suggestion of left temporal region cortical irritability. No active seizures. Clinical correlation. Echocardiogram Severe dilated left ventricle. Wall thickness is normal. The left ventricular systolic function is moderately reduced with an estimated ejection fraction in the range of 35-40%. Doppler parameters are consistent with a restrictive left ventricular filling pattern indicative of decreased left ventricular diastolic compliance and increase left atrial pressure (grade 3 diastolic dysfunction). There is severe tricuspid regurgitation. There is severe pulmonary hypertension present ( > 70 mmHg). Severe mitral valve regurgitation. Medications and IVs Current Medications Medications (Trade) Dose Ordered Sig/Ora Route Start Time Stop Time Status Last Admin (Peridex 0.12% Liq) 15 ml BID@08,20 MT 11/18/16 08:00 03/05/17 08:00 (NS Flush) 2 ml BID IV FLUSH 11/18/16 09:00 03/05/17 09:00 (Morphine Inj) 2 mg Q2H PRN IV 11/18/16 03:30 01/16/17 08:23 (Zofran Inj) 4 mg Q6H PRN IV 11/18/16 03:30 11/26/16 03:20 Miscellaneous Information 1 Q361D XX 11/18/16 03:30 11/18/16 03:30 (Chlorhexidine 2% Cloth) Taper DAILY@04 TOP 11/18/16 04:00 11/14/17 03:59 02/15/17 04:00 (Chlorhexidine 2% Cloth) 3 pack UNSCH PRN TOP 11/18/16 03:30 (Parlodel) 2.5 mg Q12HR OG-TUBE 11/18/16 09:00 03/05/17 10:35 (Folate) 1 mg DAILY OG-TUBE 11/18/16 09:00 03/05/17 10:30 (Lopressor Inj) 5 mg Q6H PRN IV PUSH 11/23/16 22:45 01/12/17 03:20 (Dulcolax Supp) 10 mg DAILY PRN RECTAL 12/14/16 15:45 (Pepcid) 20 mg BID NG 12/21/16 21:00 03/05/17 09:00 (Keppra Liq) 1,500 mg Q12HR NG 12/21/16 21:00 03/05/17 10:32 (TEGretol LIQ) 200 mg Q12HR PEG 01/06/17 09:00 03/05/17 10:31 (Corby Powder) 1 pack BID G-TUBE 01/13/17 09:00 03/05/17 09:00 (Ferrous Sulfate Liq) 300 mg BID PEG 01/26/17 21:00 03/05/17 10:29 (Vitamin C) 500 mg BID PEG 01/26/17 21:00 03/05/17 10:33 (Free Water) 100 ml Q6HR G-TUBE 01/29/17 12:00 03/05/17 12:00 (Lopressor) 25 mg Q12HR G-TUBE 02/01/17 09:00 03/05/17 10:34 ([place] 5-325 Mg) 1 tab Q4H PRN G-TUBE 02/01/17 11:30 (Tylenol) 650 mg Q6H PRN G-TUBE 02/01/17 09:30 (Lipitor) 40 mg DAILY G-TUBE 02/01/17 09:00 03/05/17 10:34 (Levsin Liq) 0.125 mg Q4H PRN G-TUBE 02/01/17 11:15 02/18/17 20:52 (Senna Liq) 8.8 mg BID G-TUBE 02/01/17 09:00 03/03/17 08:55 (D50w (Vial) Inj) 25 ml UNSCH PRN IV PUSH 02/01/17 09:15 Glucagon 1 mg 1 mg UNSCH PRN OTHER 02/01/17 09:15 (Coumadin Consult Pharmacy) 0 ml @ 0 mls/hr UNSCH OTHER 02/01/17 09:15 (Dakin'S 0.25% Soln) USE DAILY WITH DRESS... DAILY TOPICAL 02/12/17 18:00 03/05/17 10:36 (Betadine 10% Oint) 1 applic DAILY TOPICAL 02/15/17 09:00 03/05/17 09:00 (Lactulose Liq) 30 ml TID G-TUBE 02/21/17 13:00 03/05/17 13:09 (Lasix Inj) 20 mg Q8HR IV PUSH 02/23/17 14:00 03/05/17 13:09 (Coumadin) 10 mg DAILY@16 PO 02/24/17 16:00 03/04/17 14:58 (Zaroxolyn) 5 mg DAILY PO 02/27/17 17:00 03/05/17 10:30 (Entresto 24-26 Mg) 1 tab BID PO 03/02/17 09:00 03/05/17 10:34 Urinary Catheter: Yes Assessment to: Continue Brown insert reason: Prolonged Immobilization Date of Insertion: Jan 29, 2017 A/P Problem List: (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 She was was admitted to [facility] emergency department 11/04/16 with difficulty getting her thoughts together. She was found to have multifocal nonhemorrhagic infarcts in left frontal and parietal regions, right frontal lobe and history of moyamoya disease. She was initially awake and following commands with weakness of RLE and some aphasia. She was transferred to [facility] where he had an cerebral angiogram consistent with moyamoya. There were plans to perform extracranial/intracranial bypass. However she had a seizure and ended up being intubated for status either 4/4 or 4/5.. She was found to have a new right frontal infarct area and she was started on Dilantin and Keppra and it was felt that she would not be a candidate for intervention. She has been intubated 9- 10 days and apparently she has been tolerating C Pap trials to some extent but mental status prevents extubation. Treating team was discussing with family trach/PEG. Apparently family requested transfer back to [place] because they live locally here and wanted her closer to home. Patient remained under critical care medicine until 12/24/2016. Labs reviewed, decrease in potassium and sodium noted. Monitor. Plastic surgery note reviewed, appreciate assistance. Bilateral large frontal CVA Moyamoya Disease Seizure Disorder - Continue Keppra 1,500 mg q12h - Continue Tegretol 200 mg q12h - Follow for seizure activity - Continue aspirin - Continue Bromocriptine - Tegretol level WNL. Hyperammonemia: 70 -->37. Lactulose 30 ml PO TID. Positive BM noted. Systolic and diastolic heart failure, acute - Continue Lasix and MACKENZIE inhibitor. - Monitor electrolytes and renal function Atrial Fibrillation, acute: Controlled. - INR 1.9. Follow daily INR. Pharmacy to manage. Watch closely. - Continue Coumadin. Hyponatremia, resolved: BMP reviewed today. Na 129 --> 134. Continue FWF. Hyperkalemia, resolved: BMP reviewed today. K 5.5 --> 3.7. Anasarca: Worsening. Continue Lasix 20 mg IV from BID To TID. Add Zaroxolyn 5 mg PO daily. Continue to monitor. Chronic Respiratory Failure Chronic obstructive pulmonary disease Multilobar pneumonia - Pulmonology following, appreciate input. - Continue tracheostomy with supplemental oxygen. - Tobramycin completed, course ended on 01/20/17. - Levsin PRN for increased secretions. Dysphagia Hypoalbuminemia - PEG placed. Continue TF. - Jevity 1.5 through PEG tube with Corby supplementation. Tolerating well. Sacral/Coccyx wound - Continue specialty bed. - Wound care following, appreciate input. Last note with recommendations to pack wound daily with Santyl to sacrococcygeal wound. On right buttock, right ischium apply single layer Xeroform over open wound beds. Prep periwounds with Cavilon skin prep. Cover Xeroform with bordered gauze dressing. Change dressings EVERY OTHER DAY and PRN for dislodgement or soiling. GI Prophylaxis: Pepcid. DVT prophylaxis: SCDs. Coumadin. Pharmacy consulted to assist manage Coumadin level. Discussed with RN and Dr. Yuan Discharge Planning Patient will need long-term care facility. CM continuing to seek placement. Trell Torres Jr. Mar 05, 2017 14:22
--- NOTE | 2017-03-05 14:52 | HHI.PR ---
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 Trach secretions thick No bleeding from Trach site Objective Vital Signs Vital Signs Date Time Temp Pulse Resp B/P Pulse Ox O2 Delivery O2 Flow Rate FiO2 03/05/17 12:56 99 03/05/17 11:56 97.7 94 22 146/73 100 03/05/17 11:41 98 T-piece 28 03/05/17 10:48 98 T-Piece 28 Humidified 03/05/17 08:04 97.7 85 22 117/82 100 03/05/17 05:00 98.6 77 18 107/51 100 03/05/17 02:57 98.1 83 18 113/68 100 03/05/17 00:38 100 T-Piece 28 Humidified 03/04/17 21:05 98 T-piece 6.00 28 03/04/17 20:00 87 03/04/17 15:49 97.7 89 22 142/78 100 I/O 03/04/17 03/04/17 03/04/17 03/05/17 03/05/17 03/05/17 06:59 14:59 22:59 06:59 14:59 22:59 Intake Total 200 ml 1104 ml 596 ml Output Total 1700 ml 800 ml 450 ml 630 ml 1050 ml Balance -1700 ml -600 ml 654 ml -34 ml -1050 ml Tube Feeding 904 ml 396 ml Other 200 ml 200 ml 200 ml Output Urine Total 1700 ml 800 ml 450 ml 630 ml 1050 ml # Voids 3 # Bowel Movements 1 2 1 Result Diagram: 03/05/17 1056 Objective Remarks GENERAL: MBMN WF, on Trach collar SKIN: Warm and dry. HEAD: Normocephalic. EYES: No scleral icterus. No injection or drainage. NECK: Supple, trachea midline. No JVD or lymphadenopathy. has trach CARDIOVASCULAR: Regular rate and rhythm without murmurs, gallops, or rubs. RESPIRATORY: Breath sounds equal bilaterally. No accessory muscle use. GASTROINTESTINAL: Abdomen soft, non-tender, nondistended. has PEG MUSCULOSKELETAL: No cyanosis, or edema. BACK: Nontender without obvious deformity. No CVA tenderness. A/P Assessment and Plan RF, S/P Trach CVA Arango arango disease CAD COPD SZ disorder PLAN: Aerosol nebs Cont trach collar supplement 02, keep sat >90% Trach suction prn. tolerates TF DW RN at BS. Vernon Marx MD Mar 05, 2017 14:52
[2017-03-05] MEDS: WARFARIN SOD 10 MG TAB PO SCH (17:36)
[2017-03-06] VITALS (9 sets, daily range): BP systolic 102–156; BP diastolic 50–70; PULSE 79–99; RESP 18–22; TEMP 98.2–99.6; O2SAT 97–100
[2017-03-06] MEDS: CHLORHEXIDINE GLUCONATE 2 % 1 PACK (2 CLOTHS) TOP SCH (04:00)
[2017-03-06] MEDS: FREE WATER G-TUBE SCH ×4 (06:00→23:01)
[2017-03-06] MEDS: FUROSEMIDE 20 MG/2 ML VIAL IV PUSH SCH ×4 (06:05→22:00)
[2017-03-06 07:41] LABS: INTERNATIONAL NORMALIZED RATIO 2.2 RATIO; PROTHROMBIN TIME - PATIENT 25.4 SEC (9.8-11.6)
[2017-03-06] MEDS: CHLORHEXIDINE 0.12% (ORAL KIT) 15 ML CUP MT SCH ×2 (08:00→20:00)
[2017-03-06 08:16] LABS: BICARBONATE 35.5 MEQ/L (21.0-32.0); POTASSIUM 3.3 MEQ/L (3.5-5.1)
[2017-03-06] MEDS: ASCORBIC ACID 500 MG TAB PEG SCH ×2 (08:27→22:49)
[2017-03-06] MEDS: METOLAZONE 5 MG TAB PO SCH (08:28)
[2017-03-06] MEDS: SACUBITRIL/VALSARTAN 24 MG-26 MG TAB PO SCH ×2 (08:28→22:47)
[2017-03-06] MEDS: SENNOSIDES SYRUP 8.8 MG/5 ML CUP G-TUBE SCH ×2 (08:29→22:48)
[2017-03-06] MEDS: levETIRAcetam 500 MG/5 ML UDC NG SCH ×2 (08:29→22:48)
[2017-03-06] MEDS: METOPROLOL TARTRATE 25 MG TAB G-TUBE SCH ×2 (08:30→22:49)
[2017-03-06] MEDS: FAMOTIDINE 20 MG TAB NG SCH ×2 (08:30→22:50)
[2017-03-06] MEDS: ATORVASTATIN 40 MG TAB G-TUBE SCH (08:31)
[2017-03-06] MEDS: LACTULOSE SYRUP 20 GM/30 ML CUP G-TUBE SCH ×3 (08:32→16:51)
[2017-03-06] MEDS: FOLIC ACID 1 MG TAB OG-TUBE SCH (08:32)
[2017-03-06] MEDS: FERROUS SULFATE 300 MG /5ML UDC PEG SCH ×2 (08:32→22:49)
[2017-03-06] MEDS: BROMOCRIPTINE MESYLATE 2.5 MG TAB OG-TUBE SCH ×2 (08:33→22:49)
[2017-03-06] MEDS: carBAMazepine SUSP 200 MG/10 ML UDC PEG SCH ×2 (08:34→22:49)
[2017-03-06] MEDS: SODIUM CHLORIDE 0.9% FLUSH 10 ML FLUSH IV FLUSH SCH ×2 (08:34→22:49)
[2017-03-06] MEDS: POVIDONE IODINE 10% OINT 30 GM TUBE TOPICAL SCH (08:35)
[2017-03-06] MEDS: SODIUM HYPOCHLORITE 0.25% 500 ML BTL TOPICAL SCH (08:36)
[2017-03-06] MEDS: JUVEN POWDER 1 PACK G-TUBE SCH ×2 (08:47→21:00)
--- NOTE | 2017-03-06 14:36 | HHI.PR ---
Subjective Remarks Follow up on patient with bilateral frontal CVA, Moyamoya disease, seizure d/o, COPD, multilobar pneumonia, acute respiratory failure Anasarca, and systolic/ diastolic heart failure. Patient seen and examined. Not in acute distress. Resting comfortably. Spoke to RN (Jose), no new acute events overnight or since start of shift. Objective Vitals Vital Signs Date Time Temp Pulse Resp B/P Pulse Ox O2 Delivery O2 Flow Rate FiO2 03/06/17 13:07 85 03/06/17 12:14 98.5 85 22 102/50 100 03/06/17 09:18 98 T-piece 28 03/06/17 09:18 98 T-piece 28 03/06/17 08:30 98.4 83 20 111/56 98 03/06/17 04:00 99.6 85 18 116/57 100 03/06/17 00:51 98.6 81 18 156/70 100 03/05/17 20:00 100 T-Piece 6.00 28 Humidified 03/05/17 20:00 81 03/05/17 16:20 98.3 86 20 143/56 100 I/O 03/05/17 03/05/17 03/05/17 03/06/17 03/06/17 03/06/17 07:00 15:00 23:00 07:00 15:00 23:00 Intake Total 596 ml 769 ml Output Total 630 ml 1050 ml 600 ml 550 ml Balance -34 ml -1050 ml 769 ml -600 ml -550 ml Tube Feeding 396 ml 769 ml Other 200 ml Output Urine Total 630 ml 1050 ml 600 ml 550 ml # Bowel Movements 2 1 Result Diagram: 03/06/17 0705 Objective Remarks GENERAL: Pt encountered laying a bed, T-piece in place, eyes mostly closed throughout visit (though briefly opened when pt was greeted at start of visit), in NAD. SKIN: Warm and dry. Pitting edema noted along flanks and forearms. HEAD: Normocephalic. EYES: No scleral icterus. No injection or drainage. NECK: Supple, t-piece in place. CARDIOVASCULAR: Regular rate and rhythm without murmurs, gallops, or rubs. Per bedside monitor, 74 BPM at the start of visit. However, pt evidenced several minutes of tachycardia during visit with rate as high as 126. RESPIRATORY: Breath sounds equal bilaterally, without rhonchi or wheezes. 100% oxygenation per bedside monitor. GASTROINTESTINAL: Abdomen soft, non-tender. Distention noted. G-tube in place MUSCULOSKELETAL: No cyanosis. Bilateral SCD's in place as were bilateral off loading boots. Left arm noted to move spontaneously. Neurological: Pt not responding to commands. Eyes opened briefly (as noted above). No tracking noted. Procedures PEG 11/24/2016 Percutaneous tracheostomy. 11/18/2016 Moderate encephalopathy with suggestion of left temporal region cortical irritability. No active seizures. Clinical correlation. Echocardiogram Severe dilated left ventricle. Wall thickness is normal. The left ventricular systolic function is moderately reduced with an estimated ejection fraction in the range of 35-40%. Doppler parameters are consistent with a restrictive left ventricular filling pattern indicative of decreased left ventricular diastolic compliance and increase left atrial pressure (grade 3 diastolic dysfunction). There is severe tricuspid regurgitation. There is severe pulmonary hypertension present ( > 70 mmHg). Severe mitral valve regurgitation. Medications and IVs Current Medications Medications (Trade) Dose Ordered Sig/Ora Route Start Time Stop Time Status Last Admin (Peridex 0.12% Liq) 15 ml BID@08,20 MT 11/18/16 08:00 03/06/17 08:00 (NS Flush) 2 ml BID IV FLUSH 11/18/16 09:00 03/06/17 08:34 (Morphine Inj) 2 mg Q2H PRN IV 11/18/16 03:30 01/16/17 08:23 (Zofran Inj) 4 mg Q6H PRN IV 11/18/16 03:30 11/26/16 03:20 Miscellaneous Information 1 Q361D XX 11/18/16 03:30 11/18/16 03:30 (Chlorhexidine 2% Cloth) Taper DAILY@04 TOP 11/18/16 04:00 11/14/17 03:59 02/15/17 04:00 (Chlorhexidine 2% Cloth) 3 pack UNSCH PRN TOP 11/18/16 03:30 (Parlodel) 2.5 mg Q12HR OG-TUBE 11/18/16 09:00 03/06/17 08:33 (Folate) 1 mg DAILY OG-TUBE 11/18/16 09:00 03/06/17 08:32 (Lopressor Inj) 5 mg Q6H PRN IV PUSH 4/18/17 22:45 01/12/17 03:20 (Dulcolax Supp) 10 mg DAILY PRN RECTAL 12/14/16 15:45 (Pepcid) 20 mg BID NG 12/21/16 21:00 03/06/17 08:30 (Keppra Liq) 1,500 mg Q12HR NG 12/21/16 21:00 03/06/17 08:29 (TEGretol LIQ) 200 mg Q12HR PEG 01/06/17 09:00 03/06/17 08:34 (Corby Powder) 1 pack BID G-TUBE 01/13/17 09:00 03/06/17 08:47 (Ferrous Sulfate Liq) 300 mg BID PEG 01/26/17 21:00 03/06/17 08:32 (Vitamin C) 500 mg BID PEG 01/26/17 21:00 03/06/17 08:27 (Free Water) 100 ml Q6HR G-TUBE 01/29/17 12:00 03/06/17 12:00 (Lopressor) 25 mg Q12HR G-TUBE 02/01/17 09:00 03/05/17 22:41 (Pulteney 5-325 Mg) 1 tab Q4H PRN G-TUBE 02/01/17 11:30 (Tylenol) 650 mg Q6H PRN G-TUBE 02/01/17 09:30 (Lipitor) 40 mg DAILY G-TUBE 02/01/17 09:00 03/06/17 08:31 (Levsin Liq) 0.125 mg Q4H PRN G-TUBE 02/01/17 11:15 02/18/17 20:52 (Senna Liq) 8.8 mg BID G-TUBE 02/01/17 09:00 03/06/17 08:29 (D50w (Vial) Inj) 25 ml UNSCH PRN IV PUSH 02/01/17 09:15 Glucagon 1 mg 1 mg UNSCH PRN OTHER 02/01/17 09:15 (Coumadin Consult Pharmacy) 0 ml @ 0 mls/hr UNSCH OTHER 02/01/17 09:15 (Dakin'S 0.25% Soln) USE DAILY WITH DRESS... DAILY TOPICAL 02/12/17 18:00 03/05/17 10:36 (Betadine 10% Oint) 1 applic DAILY TOPICAL 02/15/17 09:00 03/06/17 08:35 (Lactulose Liq) 30 ml TID G-TUBE 02/21/17 13:00 03/06/17 13:25 (Lasix Inj) 20 mg Q8HR IV PUSH 02/23/17 14:00 03/06/17 06:05 (Coumadin) 10 mg DAILY@16 PO 02/24/17 16:00 03/05/17 17:36 (Zaroxolyn) 5 mg DAILY PO 02/27/17 17:00 03/06/17 08:28 (Entresto 24-26 Mg) 1 tab BID PO 03/02/17 09:00 03/06/17 08:28 Urinary Catheter: Yes Assessment to: Continue Brown insert reason: Prolonged Immobilization Date of Insertion: Jan 29, 2017 A/P Problem List: (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 She was was admitted to [facility] emergency department 11/04/16 with difficulty getting her thoughts together. She was found to have multifocal nonhemorrhagic infarcts in left frontal and parietal regions, right frontal lobe and history of moyamoya disease. She was initially awake and following commands with weakness of RLE and some aphasia. She was transferred to [facility] where he had an cerebral angiogram consistent with moyamoya. There were plans to perform extracranial/intracranial bypass. However she had a seizure and ended up being intubated for status either 4/4 or 4/5.. She was found to have a new right frontal infarct area and she was started on Dilantin and Keppra and it was felt that she would not be a candidate for intervention. She has been intubated 9- 10 days and apparently she has been tolerating C Pap trials to some extent but mental status prevents extubation. Treating team was discussing with family trach/PEG. Apparently family requested transfer back to [place] because they live locally here and wanted her closer to home. Patient remained under critical care medicine until 12/24/2016. Labs reviewed, decrease in potassium and sodium noted. KCL 40 meq ordered. check labs in am. Tachycardia: EKG interpretation was sinus rhythm. Ammonia level 47; continue current lactulose regimen. Bilateral large frontal CVA Moyamoya Disease Seizure Disorder - Continue Keppra 1,500 mg q12h - Continue Tegretol 200 mg q12h - Follow for seizure activity - Continue aspirin - Continue Bromocriptine - Tegretol level WNL. Hyperammonemia: 70 -->37--> 47. Lactulose 30 ml PO TID. Positive BM noted. Systolic and diastolic heart failure, acute - Continue Lasix and MACKENZIE inhibitor. - Monitor electrolytes and renal function Atrial Fibrillation, acute: Controlled. - INR 1.9. Follow daily INR. Pharmacy to manage. Watch closely. - Continue Coumadin. Hyponatremia, resolved: BMP reviewed today. Na 129 --> 134. Continue FWF. Hyperkalemia, resolved: BMP reviewed today. K 5.5 --> 3.7. Hypokalemia: 3.3/ KCL 40 meq ordered. Anasarca: Worsening. Continue Lasix 20 mg IV from BID To TID. Add Zaroxolyn 5 mg PO daily. Continue to monitor. Tachycardia: EKG, sinus rhythm -Monitor. Chronic Respiratory Failure Chronic obstructive pulmonary disease Multilobar pneumonia - Pulmonology following, appreciate input. - Continue tracheostomy with supplemental oxygen. - Tobramycin completed, course ended on 01/20/17. - Levsin PRN for increased secretions. Dysphagia Hypoalbuminemia - PEG placed. Continue TF. - Jevity 1.5 through PEG tube with Corby supplementation. Tolerating well. Sacral/Coccyx wound - Continue specialty bed. - Wound care following, appreciate input. Last note with recommendations to pack wound daily with Santyl to sacrococcygeal wound. On right buttock, right ischium apply single layer Xeroform over open wound beds. Prep periwounds with Cavilon skin prep. Cover Xeroform with bordered gauze dressing. Change dressings EVERY OTHER DAY and PRN for dislodgement or soiling. GI Prophylaxis: Pepcid. DVT prophylaxis: SCDs. Coumadin. Pharmacy consulted to assist manage Coumadin level. Discussed with RN and Dr. Yuan Discharge Planning Patient will need long-term care facility. CM continuing to seek placement. Trell Torres Jr. Mar 06, 2017 14:36
--- NOTE | 2017-03-06 14:40 | EKG ---
Date Performed: 03/06/2017 Time Performed: 11:35:04 PTAGE: 66 years EKG: Sinus rhythm MARKED LEFT AXIS DEVIATION INFERIOR MYOCARDIAL INFARCTION , PROBABLY OLD ANTEROSEPTAL MYOCARDIAL INF ARCTION , PROBABLY OLD Nonspecific ST-T changes Compared to previous tracing T waves are slightly mor e flattened anterolaterally, otherwise no significant change ABNORMAL ECG PREVIOUS TRACING : 02/01/2017 08.42 DOCTOR: Kodak French Interpretating Date/Time 03/06/2017 14:38:50
[2017-03-06] MEDS ORDERED: POTASSIUM CHLORIDE 20 MEQ PWD PACKET PO ONE (15:00)
--- NOTE | 2017-03-06 15:22 | HHI.PR ---
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 Trach secretions thick No bleeding from Trach site No new complaint Objective Vital Signs Vital Signs Date Time Temp Pulse Resp B/P Pulse Ox O2 Delivery O2 Flow Rate FiO2 03/06/17 13:07 85 03/06/17 12:14 98.5 85 22 102/50 100 03/06/17 09:18 98 T-piece 28 03/06/17 09:18 98 T-piece 28 03/06/17 08:30 98.4 83 20 111/56 98 03/06/17 04:00 99.6 85 18 116/57 100 03/06/17 00:51 98.6 81 18 156/70 100 03/05/17 20:00 100 T-Piece 6.00 28 Humidified 03/05/17 20:00 81 03/05/17 16:20 98.3 86 20 143/56 100 I/O 03/05/17 03/05/17 03/05/17 03/06/17 03/06/17 03/06/17 07:00 15:00 23:00 07:00 15:00 23:00 Intake Total 596 ml 769 ml Output Total 630 ml 1050 ml 600 ml 550 ml Balance -34 ml -1050 ml 769 ml -600 ml -550 ml Tube Feeding 396 ml 769 ml Other 200 ml Output Urine Total 630 ml 1050 ml 600 ml 550 ml # Bowel Movements 2 1 Result Diagram: 03/06/17 0705 Objective Remarks GENERAL: MBMN WF, on Trach collar SKIN: Warm and dry. HEAD: Normocephalic. EYES: No scleral icterus. No injection or drainage. NECK: Supple, trachea midline. No JVD or lymphadenopathy. has trach CARDIOVASCULAR: Regular rate and rhythm without murmurs, gallops, or rubs. RESPIRATORY: Breath sounds equal bilaterally. No accessory muscle use. GASTROINTESTINAL: Abdomen soft, non-tender, nondistended. has PEG MUSCULOSKELETAL: No cyanosis, or edema. BACK: Nontender without obvious deformity. No CVA tenderness. A/P Assessment and Plan RF, S/P Trach CVA Arango arango disease CAD COPD SZ disorder PLAN: Aerosol nebs Cont trach collar supplement 02, keep sat >90% Trach suction prn. tolerates TF DW RN at BS. Vernon Marx MD Mar 06, 2017 15:22
[2017-03-06] MEDS: WARFARIN SOD 10 MG TAB PO SCH (16:50)
[2017-03-07] VITALS (9 sets, daily range): BP systolic 122–153; BP diastolic 66–114; PULSE 78–100; RESP 20–22; TEMP 97.3–98.9; O2SAT 96–100
[2017-03-07] MEDS: CHLORHEXIDINE GLUCONATE 2 % 1 PACK (2 CLOTHS) TOP SCH (04:00)
[2017-03-07] MEDS: FREE WATER G-TUBE SCH ×3 (05:02→18:00)
[2017-03-07] MEDS: FUROSEMIDE 20 MG/2 ML VIAL IV PUSH SCH ×3 (05:03→21:51)
[2017-03-07] MEDS: CHLORHEXIDINE 0.12% (ORAL KIT) 15 ML CUP MT SCH ×2 (08:00→22:00)
[2017-03-07] MEDS: levETIRAcetam 500 MG/5 ML UDC NG SCH ×2 (08:40→21:50)
[2017-03-07] MEDS: LACTULOSE SYRUP 20 GM/30 ML CUP G-TUBE SCH ×3 (08:41→18:00)
[2017-03-07] MEDS: SENNOSIDES SYRUP 8.8 MG/5 ML CUP G-TUBE SCH (08:41)
[2017-03-07] MEDS: carBAMazepine SUSP 200 MG/10 ML UDC PEG SCH ×2 (08:41→21:49)
[2017-03-07] MEDS: JUVEN POWDER 1 PACK G-TUBE SCH ×2 (08:41→21:55)
[2017-03-07] MEDS: FERROUS SULFATE 300 MG /5ML UDC PEG SCH ×2 (08:42→21:50)
[2017-03-07] MEDS: ASCORBIC ACID 500 MG TAB PEG SCH ×2 (08:42→21:50)
[2017-03-07] MEDS: BROMOCRIPTINE MESYLATE 2.5 MG TAB OG-TUBE SCH ×2 (08:43→21:59)
[2017-03-07] MEDS: FAMOTIDINE 20 MG TAB NG SCH ×2 (08:43→21:50)
[2017-03-07] MEDS: METOLAZONE 5 MG TAB PO SCH (08:43)
[2017-03-07] MEDS: FOLIC ACID 1 MG TAB OG-TUBE SCH (08:44)
[2017-03-07] MEDS: ATORVASTATIN 40 MG TAB G-TUBE SCH (08:44)
[2017-03-07] MEDS: SACUBITRIL/VALSARTAN 24 MG-26 MG TAB PO SCH ×2 (08:45→21:50)
[2017-03-07] MEDS: METOPROLOL TARTRATE 25 MG TAB G-TUBE SCH ×2 (08:45→21:50)
[2017-03-07] MEDS: POVIDONE IODINE 10% OINT 30 GM TUBE TOPICAL SCH (08:46)
[2017-03-07] MEDS: SODIUM CHLORIDE 0.9% FLUSH 10 ML FLUSH IV FLUSH SCH ×2 (08:46→21:00)
[2017-03-07] MEDS: SODIUM HYPOCHLORITE 0.25% 500 ML BTL TOPICAL SCH (08:46)
[2017-03-07 09:49] LABS: INTERNATIONAL NORMALIZED RATIO 2.4 RATIO; PROTHROMBIN TIME - PATIENT 27.2 SEC (9.8-11.6)
[2017-03-07 10:12] LABS: BICARBONATE 33.9 MEQ/L (21.0-32.0); POTASSIUM 3.5 MEQ/L (3.5-5.1)
--- NOTE | 2017-03-07 15:17 | HHI.PR ---
Subjective Remarks Follow up on patient with bilateral frontal CVA, Moyamoya disease, seizure d/o, COPD, multilobar pneumonia, acute respiratory failure, anasarca, and systolic/ diastolic heart failure. Patient seen and examined. 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 No new acute changes overnight. Anasarca mildly improved. T- piece in place. Nonverbal. Occasional tracking with eyes, does not follow commands. Afebrile. Tolerating TF. Objective Vitals Vital Signs Date Time Temp Pulse Resp B/P Pulse Ox O2 Delivery O2 Flow Rate FiO2 03/07/17 14:47 95 03/07/17 12:00 98.2 78 20 131/74 98 03/07/17 10:30 96 T-piece 5.00 28 03/07/17 10:30 96 T-piece 5.00 28 03/07/17 08:50 99 T-Piece 6.00 28 Humidified 03/07/17 08:00 98.4 94 20 126/71 99 03/07/17 04:00 98.3 100 20 132/79 99 03/07/17 00:00 98.6 99 20 122/66 100 03/06/17 22:04 97 T-piece 6.00 28 03/06/17 22:04 97 T-piece 6.00 28 03/06/17 20:00 99 03/06/17 20:00 97 T-Piece 6.00 28 Humidified 03/06/17 20:00 98.4 92 20 116/58 99 03/06/17 17:02 100 T-Piece 6.00 28 Humidified 03/06/17 16:18 98.2 79 22 143/69 97 I/O 03/06/17 03/06/17 03/06/17 03/07/17 03/07/17 03/07/17 07:00 15:00 23:00 07:00 15:00 23:00 Intake Total 453 ml Output Total 600 ml 550 ml Balance -600 ml -550 ml 453 ml Tube Feeding 453 ml Output Urine Total 600 ml 550 ml # Bowel Movements 1 Result Diagram: 03/07/17 0906 Imaging Last Impressions Abdomen X-Ray 02/11/17 0000 Signed Impressions: Service Date/Time: Saturday, February 11, 2017 17:52 - CONCLUSION: Minimal colonic distention. Kenneth Frost MD FACR Catheter Change 02/10/17 Signed Impressions: Service Date/Time: February 13:47 - CONCLUSION: Uncomplicated fluoroscopic guided gastrostomy tube replacement. Positioning confirmed. The tube can be used immediately. Nghia Pacheco MD Lower Extremity Ultrasound 02/01/17 Signed Impressions: Service Date/Time: Wednesday, February 01, 2017 13:23 - CONCLUSION: Normal examination. Gray Veronica MD Chest X-Ray 02/01/17 Signed Impressions: Service Date/Time: Wednesday, February 01, 2017 08:45 - CONCLUSION: 1. Stable tracheostomy. 2. Mild interstitial prominence may reflect slight positive fluid balance. Christiano Villagran MD Brain MRI 01/06/17 Signed Impressions: Service Date/Time: January 14:19 - CONCLUSION: Continued evolutionary changes of large bilateral frontal lobe infarcts. Sami Mccarthy MD Objective Remarks GENERAL: Well-nourished, well-developed female patient lying in bed in NAD, t- collar in place. SKIN: Warm and dry. Anasarca. HEENT: Normocephalic. Pupils equal and round. No scleral icterus. No injection or drainage. No nasal bleeding or discharge. Mucous membranes pink and moist. NECK: Supple. Trachea midline. CARDIOVASCULAR: Regular rate and rhythm. S1, S2 noted. No murmur appreciated. RESPIRATORY: No accessory muscle use. Distant breath sounds noted. Breath sounds equal bilaterally. GASTROINTESTINAL: Abdomen soft, non-tender, nondistended. Normoactive bowel sounds x4. MUSCULOSKELETAL: No obvious deformities. Extremities without clubbing, cyanosis. NEUROLOGICAL: Does not track with eyes. Occasionally opens to vocal and noxious stimuli. No spontaneous movement in upper and lower extremities. Procedures PEG 11/24/2016 Percutaneous tracheostomy. 11/18/2016 Moderate encephalopathy with suggestion of left temporal region cortical irritability. No active seizures. Clinical correlation. Echocardiogram Severe dilated left ventricle. Wall thickness is normal. The left ventricular systolic function is moderately reduced with an estimated ejection fraction in the range of 35-40%. Doppler parameters are consistent with a restrictive left ventricular filling pattern indicative of decreased left ventricular diastolic compliance and increase left atrial pressure (grade 3 diastolic dysfunction). There is severe tricuspid regurgitation. There is severe pulmonary hypertension present ( > 70 mmHg). Severe mitral valve regurgitation. Urinary Catheter: Yes Assessment to: Continue Brown insert reason: Stage III/IV Press Ulcer Date of Insertion: Feb 28, 2017 A/P Problem List: (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 She was was admitted to [facility] emergency department 11/04/16 with difficulty getting her thoughts together. She was found to have multifocal nonhemorrhagic infarcts in left frontal and parietal regions, right frontal lobe and history of moyamoya disease. She was initially awake and following commands with weakness of RLE and some aphasia. She was transferred to [facility] where he had an cerebral angiogram consistent with moyamoya. There were plans to perform extracranial/intracranial bypass. However she had a seizure and ended up being intubated for status either 4/4 or 4/5.. She was found to have a new right frontal infarct area and she was started on Dilantin and Keppra and it was felt that she would not be a candidate for intervention. She has been intubated 9- 10 days and apparently she has been tolerating C Pap trials to some extent but mental status prevents extubation. Treating team was discussing with family trach/PEG. Apparently family requested transfer back to [place] because they live locally here and wanted her closer to home. Patient remained under critical care medicine until 12/24/2016. Bilateral large frontal CVA Moyamoya Disease Seizure Disorder - Continue Keppra 1,500 mg q12h - Continue Tegretol 200 mg q12h - Follow for seizure activity - Continue aspirin - Continue Bromocriptine - Tegretol level WNL. Hyperammonemia: 70 -->47. Lactulose 30 ml PO TID. Liquid stools noted. Systolic and diastolic heart failure, acute - Continue Lasix and MACKENZIE inhibitor. - Monitor electrolytes and renal function Atrial Fibrillation, acute: Controlled. - INR 2.4. Follow daily INR. Pharmacy to manage. Watch closely. - Continue Coumadin. Hyponatremia, resolved: Na 131. Hyperkalemia, resolved: K 3.5. Anasarca: Worsening. Continue Lasix 20 mg IV TID. Zaroxolyn 5 mg PO daily. Continue to monitor. Chronic Respiratory Failure Chronic obstructive pulmonary disease Multilobar pneumonia - Pulmonology following, appreciate input. - Continue tracheostomy with supplemental oxygen. - Tobramycin completed, course ended on 01/20/17. - Levsin PRN for increased secretions. Dysphagia Hypoalbuminemia - PEG placed. Continue TF. - Jevity 1.5 through PEG tube with Corby supplementation. Tolerating well. Sacral/Coccyx wound - Continue specialty bed. - Wound care following, wound vac continued. GI Prophylaxis: Pepcid. DVT prophylaxis: SCDs. Coumadin. Discussed with Dr. Yuan Discharge Planning Patient will need long-term care facility. CM continuing to seek placement. Harley CM note 03/03/17- No accepting facility at this time. Barrier: payer is Medicaid and pt is too expensive with PEG and trach. Possibly can be placed with one or the other but not both. Jackie Walsh Mar 07, 2017 15:16
--- NOTE | 2017-03-07 15:26 | PD.WCN.NOT ---
Neg Pressure Wound Therapy Wound Location Wound Location: Sacrum Wound Description Length: 3.8cm Width: 3cm Depth: 3 Undermining: from 7-5 o'clock with deepest noted @ 3 o'clock of 3.3cm Wound bed appearance: ~15% bone and ~85% granulation tissue Periwound appearance: Unremarkable Settings Suction: 125 mmHg, Intermittent (Veralfow VAC) Intensity: Low Other Information: Bridged, Mushroomed Number of pieces: 2 (Whitaker foam with holes placed in wound bed base followed by 1 strip of coiled thick whitaker solid foam. Bridged thin whitaker foam to L hip) Additonal Information Patient seen on for wound VAC Veraflow dressing change.Wound VAC Dressing removed to reveal a vascular full thickness wound on the sacrum with minimal sanguinous drainage that coagulates <1min. Wound was cleansed with wound cleanser and gauze. Wound has ~15% palpated and visualized bone within the ~85% granulation tissue. Cleansed wound with wound cleanser. Skin prep applied to periwound and before applying VAC drape bridged to L hip. Applied cleanse choice whitaker foam with holes to wound bed base, followed by 1 strip of thick whitaker foam coiled on top. Bridged 1 strip of thinner whitaker foam to L hip over VAC drape. Eakins seal placed at 12 and 6 o'clock to seal wound VAC dressing. Sensi trac pad placed over mushroom cap of thin whitaker foam to L hip bridged area. Covered all exposed foam with additional VAC drape to seal. Using fill assist, instilled 44ml of normal saline in to wound. Normal saline will dwell in wound for 10 minutes before suctioning at 125 mm/hg.Cycle will repeat every hour. Alma Martinez [facility] Mar 07, 2017 15:26
[2017-03-07] MEDS: WARFARIN SOD 10 MG TAB PO SCH (16:50)
--- NOTE | 2017-03-07 17:34 | HHI.PR ---
Subjective Remarks 66 YOWF with Rf, s/p trach H/O CVA,Raango Arango disease On trach collar No fever. No new complaint Objective Vital Signs Vital Signs Date Time Temp Pulse Resp B/P Pulse Ox O2 Delivery O2 Flow Rate FiO2 03/07/17 16:00 98.9 86 21 124/68 99 03/07/17 14:47 95 03/07/17 12:00 98.2 78 20 131/74 98 03/07/17 10:30 96 T-piece 5.00 28 03/07/17 10:30 96 T-piece 5.00 28 03/07/17 08:50 99 T-Piece 6.00 28 Humidified 03/07/17 08:00 98.4 94 20 126/71 99 03/07/17 04:00 98.3 100 20 132/79 99 03/07/17 00:00 98.6 99 20 122/66 100 03/06/17 22:04 97 T-piece 6.00 28 03/06/17 22:04 97 T-piece 6.00 28 03/06/17 20:00 99 03/06/17 20:00 97 T-Piece 6.00 28 Humidified 03/06/17 20:00 98.4 92 20 116/58 99 I/O 03/06/17 03/06/17 03/06/17 03/07/17 03/07/17 03/07/17 07:00 15:00 23:00 07:00 15:00 23:00 Intake Total 453 ml Output Total 600 ml 550 ml 400 ml Balance -600 ml -550 ml 453 ml -400 ml Tube Feeding 453 ml Output Urine Total 600 ml 550 ml 400 ml # Bowel Movements 1 2 Result Diagram: 03/07/17905 Objective Remarks GENERAL: MBMN WF, on Trach collar SKIN: Warm and dry. HEAD: Normocephalic. EYES: No scleral icterus. No injection or drainage. NECK: Supple, trachea midline. No JVD or lymphadenopathy. has trach CARDIOVASCULAR: Regular rate and rhythm without murmurs, gallops, or rubs. RESPIRATORY: Breath sounds equal bilaterally. No accessory muscle use. GASTROINTESTINAL: Abdomen soft, non-tender, nondistended. has PEG MUSCULOSKELETAL: No cyanosis, or edema. BACK: Nontender without obvious deformity. No CVA tenderness. A/P Assessment and Plan RF, S/P Trach CVA Arango arango disease CAD COPD SZ disorder PLAN: Aerosol nebs Cont trach collar supplement 02, keep sat >90% Trach suction prn. tolerates TF DW RN at BS. Vernon Marx MD Mar 07, 2017 17:34
[2017-03-08] VITALS (9 sets, daily range): BP systolic 110–142; BP diastolic 61–80; PULSE 80–94; RESP 18–22; TEMP 97.3–98.7; O2SAT 94–100
[2017-03-08] MEDS: CHLORHEXIDINE GLUCONATE 2 % 1 PACK (2 CLOTHS) TOP SCH (04:00)
[2017-03-08] MEDS: FREE WATER G-TUBE SCH ×5 (06:00→23:32)
[2017-03-08] MEDS: FUROSEMIDE 20 MG/2 ML VIAL IV PUSH SCH ×3 (07:31→21:45)
[2017-03-08] MEDS: CHLORHEXIDINE 0.12% (ORAL KIT) 15 ML CUP MT SCH ×2 (08:00→20:00)
[2017-03-08] MEDS: SENNOSIDES SYRUP 8.8 MG/5 ML CUP G-TUBE SCH ×2 (08:52→21:00)
[2017-03-08] MEDS: LACTULOSE SYRUP 20 GM/30 ML CUP G-TUBE SCH ×3 (08:55→17:28)
[2017-03-08] MEDS: levETIRAcetam 500 MG/5 ML UDC NG SCH ×2 (08:55→21:46)
[2017-03-08] MEDS: carBAMazepine SUSP 200 MG/10 ML UDC PEG SCH ×2 (08:55→21:45)
[2017-03-08] MEDS: FERROUS SULFATE 300 MG /5ML UDC PEG SCH ×2 (08:55→21:45)
[2017-03-08] MEDS: ASCORBIC ACID 500 MG TAB PEG SCH ×2 (08:56→21:44)
[2017-03-08] MEDS: BROMOCRIPTINE MESYLATE 2.5 MG TAB OG-TUBE SCH ×2 (08:56→21:45)
[2017-03-08] MEDS: ATORVASTATIN 40 MG TAB G-TUBE SCH (08:56)
[2017-03-08] MEDS: POVIDONE IODINE 10% OINT 30 GM TUBE TOPICAL SCH (08:56)
[2017-03-08] MEDS: FAMOTIDINE 20 MG TAB NG SCH ×2 (08:56→21:46)
[2017-03-08] MEDS: METOLAZONE 5 MG TAB PO SCH (08:56)
[2017-03-08] MEDS: SACUBITRIL/VALSARTAN 24 MG-26 MG TAB PO SCH (08:56)
[2017-03-08] MEDS: METOPROLOL TARTRATE 25 MG TAB G-TUBE SCH ×2 (08:56→21:45)
[2017-03-08] MEDS: SODIUM CHLORIDE 0.9% FLUSH 10 ML FLUSH IV FLUSH SCH ×2 (08:56→21:00)
[2017-03-08] MEDS: FOLIC ACID 1 MG TAB OG-TUBE SCH (08:56)
[2017-03-08] MEDS: SODIUM HYPOCHLORITE 0.25% 500 ML BTL TOPICAL SCH (08:57)
[2017-03-08] MEDS: JUVEN POWDER 1 PACK G-TUBE SCH ×2 (09:00→21:00)
[2017-03-08 10:45] LABS: INTERNATIONAL NORMALIZED RATIO 2.3 RATIO; PROTHROMBIN TIME - PATIENT 26.8 SEC (9.8-11.6)
--- NOTE | 2017-03-08 13:04 | PD.WCN.NOT ---
Wound Consult Description: Called via vocera for leaking wound VAC with Veraflow per ANDRE Holm Communicated with: KAITLIN Marquez who contacted MADISYN Smith Recommendation: Telephone orders obtained from MADISYN Smith for standard wound VAC application to sacrum Stage IV. Settings @ 125 mmHg low continuous suction, change twice weekly (Tuesday and Tuesday) with cleansing of 0.25% Dakins in between each wound VAC dressing change. Additional Information: Upon entering room on for eval of leaking wound VAC with Veralflow, machine was not working. Several attempts made to obtain seal, first by removing drape where fluid was visualized leaking from underneath the drape where bridging and trac pad met. The area was dried and reinforced with new drape twice, with unsuccessful results after machine started to fill with NS it immediately started to leak. Entire dressing was removed and a wet to dry dressing was placed. Orders were later obtained for standard wound VAC dressing to be applied. Stephany Fang [facility] Mar 08, 2017 13:04
--- NOTE | 2017-03-08 15:26 | PD.WCN.NOT ---
Wound Consult Description: Apply standard wound VAC Communicated with: ANDRE Holm Recommendation: Telephone orders obtained from MADISYN Smith for standard wound VAC application to sacrum Stage IV. Settings @ 125 mmHg low continuous suction, change twice weekly (Tuesday and Tuesday) with cleansing of 0.25% Dakins in between each wound VAC dressing change. Neg Pressure Wound Therapy Wound Location Wound Location: Sacrum Wound Description Length: Settings Suction: 125 mmHg, Intermittent (Veralfow VAC) Intensity: Low Other Information: Bridged, Mushroomed Foam type: Black Number of pieces: other (4 pieces used in dressing, 1 coiled into wound bed, 2 used in bridging, and 1 mushroomed black foam for trac pad placement) Additonal Information Patient seen on for wound VAC dressing application to sacrum with KAITLIN Marquez at bedside. Patient tube feed placed on hold. Patient was positioned to her left side with maximum assistance from KAITLIN Marquez. Wet to dry dressing removed. Wound was cleansed with 0.25% Dakins as ordered between dressing changes. Periwound was sprayed with Cavilon skin prep prior to protecting skin from foam with drape being placed under foam used to bridge trac pad to right upper lateral thigh/hip area. Wound was lightly packed with black granufoam cut in a cinnamon roll coiled fashion and secured with VAC drape. Stoma paste was used in gluteal cleft to obtain and maintain seal once wound VAC was turned on with settings described above. No leaks noted. Patient had a bm and was cleansed with a new ultrasorb placed underneath patient bottom. Patient was positioned to her right side and elevated head >30 degrees so that tube feed could be resumed. Stephany Fang [facility] Mar 08, 2017 15:26
[2017-03-08] MEDS: WARFARIN SOD 10 MG TAB PEG SCH (15:43)
--- NOTE | 2017-03-08 16:26 | HHI.PR ---
Subjective Remarks Follow up on patient with bilateral frontal CVA, Moyamoya disease, seizure d/o, COPD, multilobar pneumonia, acute respiratory failure, anasarca, and systolic/ diastolic heart failure. Patient seen and examined. Lying in bed comfortably, appears to be in no apparent distress. Spoke to RN, with no new acute complaints overnight. Patient anasarca improving. Wound vac changed today. Tolerating TF. Afebrile. Positive BM. Objective Vitals Vital Signs Date Time Temp Pulse Resp B/P Pulse Ox O2 Delivery O2 Flow Rate FiO2 03/08/17 16:19 97.5 85 18 136/80 100 03/08/17 15:43 100 T-Piece 6.00 28 Humidified 03/08/17 12:22 88 03/08/17 12:21 98.2 94 18 110/65 95 03/08/17 10:59 96 T-piece 28 03/08/17 10:59 96 T-piece 6.00 28 03/08/17 09:29 100 T-Piece 6.00 28 Humidified 03/08/17 08:22 98.2 89 18 139/75 98 03/08/17 04:00 97.3 84 18 119/70 100 03/08/17 00:00 98.7 80 18 117/61 100 03/07/17 20:00 97.3 92 22 153/114 100 03/07/17 19:15 T-Piece 6.00 28 Humidified 03/07/17 18:05 99 T-piece 6.00 28 03/07/17 18:05 99 T-piece 6.00 28 I/O 03/07/17 03/07/17 03/07/17 03/08/17 03/08/17 03/08/17 07:00 15:00 23:00 07:00 15:00 23:00 Intake Total 200 ml 200 ml Output Total 400 ml 1450 ml 350 ml Balance -400 ml -1450 ml -150 ml 200 ml Other 200 ml 200 ml Output Urine Total 400 ml 1450 ml 350 ml # Bowel Movements 2 Result Diagram: 03/07/17 0906 Imaging Last Impressions Abdomen X-Ray 02/11/17 0000 Signed Impressions: Service Date/Time: Saturday, February 11, 2017 17:52 - CONCLUSION: Minimal colonic distention. Kenneth Frost MD FACR Catheter Change 02/10/17 Signed Impressions: Service Date/Time: February 13:47 - CONCLUSION: Uncomplicated fluoroscopic guided gastrostomy tube replacement. Positioning confirmed. The tube can be used immediately. Nghia Pacheco MD Lower Extremity Ultrasound 02/01/17 Signed Impressions: Service Date/Time: Wednesday, February 01, 2017 13:23 - CONCLUSION: Normal examination. Gray Veronica MD Chest X-Ray 02/01/17 Signed Impressions: Service Date/Time: Wednesday, February 01, 2017 08:45 - CONCLUSION: 1. Stable tracheostomy. 2. Mild interstitial prominence may reflect slight positive fluid balance. Christiano Villagran MD Brain MRI 01/06/17 Signed Impressions: Service Date/Time: January 14:19 - CONCLUSION: Continued evolutionary changes of large bilateral frontal lobe infarcts. Sami Mccarthy MD Objective Remarks GENERAL: Well-nourished, well-developed female patient lying in bed in NAD, t- collar in place. bedside O2 sats 100%. SKIN: Warm and dry. Mild anasarca. HEENT: Normocephalic. Pupils equal and round. No scleral icterus. No injection or drainage. No nasal bleeding or discharge. Mucous membranes pink and moist. NECK: Supple. Trachea midline. CARDIOVASCULAR: Regular rate and rhythm. S1, S2 noted. No murmur appreciated. RESPIRATORY: No accessory muscle use. Distant breath sounds noted. Breath sounds equal bilaterally. GASTROINTESTINAL: Abdomen soft, non-tender, nondistended. Normoactive bowel sounds x4. MUSCULOSKELETAL: No obvious deformities. Extremities without clubbing, cyanosis. NEUROLOGICAL: Does not track with eyes. Occasionally opens to vocal and noxious stimuli. No spontaneous movement in upper and lower extremities. Procedures PEG 11/24/2016 Percutaneous tracheostomy. 11/18/2016 Moderate encephalopathy with suggestion of left temporal region cortical irritability. No active seizures. Clinical correlation. Echocardiogram Severe dilated left ventricle. Wall thickness is normal. The left ventricular systolic function is moderately reduced with an estimated ejection fraction in the range of 35-40%. Doppler parameters are consistent with a restrictive left ventricular filling pattern indicative of decreased left ventricular diastolic compliance and increase left atrial pressure (grade 3 diastolic dysfunction). There is severe tricuspid regurgitation. There is severe pulmonary hypertension present ( > 70 mmHg). Severe mitral valve regurgitation. Date of Insertion: Feb 28, 2017 A/P Problem List: (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 She was was admitted to [facility] emergency department 11/04/16 with difficulty getting her thoughts together. She was found to have multifocal nonhemorrhagic infarcts in left frontal and parietal regions, right frontal lobe and history of moyamoya disease. She was initially awake and following commands with weakness of RLE and some aphasia. She was transferred to [facility] where he had an cerebral angiogram consistent with moyamoya. There were plans to perform extracranial/intracranial bypass. However she had a seizure and ended up being intubated for status either 4/4 or 4/5.. She was found to have a new right frontal infarct area and she was started on Dilantin and Keppra and it was felt that she would not be a candidate for intervention. She has been intubated 9- 10 days and apparently she has been tolerating C Pap trials to some extent but mental status prevents extubation. Treating team was discussing with family trach/PEG. Apparently family requested transfer back to [place] because they live locally here and wanted her closer to home. Patient remained under critical care medicine until 12/24/2016. Bilateral large frontal CVA Moyamoya Disease Seizure Disorder - Continue Keppra 1,500 mg q12h - Continue Tegretol 200 mg q12h - Follow for seizure activity - Continue aspirin - Continue Bromocriptine - Tegretol level WNL. Hyperammonemia: 70 -->47. Lactulose 30 ml PO TID. Liquid stools noted. Systolic and diastolic heart failure, acute - Continue Lasix and MACKENZIE inhibitor. - Monitor electrolytes and renal function. Awaiting labs ordered for today. Follow. Atrial Fibrillation, acute: Controlled. - INR 2.3. Follow daily INR. Pharmacy to manage. Watch closely. - Continue Coumadin. Hyponatremia, resolved: Na 131. Awaiting labs, pending. Follow. Hyperkalemia, resolved: K 3.5. Anasarca: Worsening. Continue Lasix 20 mg IV TID. Zaroxolyn 5 mg PO daily. Continue to monitor. Chronic Respiratory Failure Chronic obstructive pulmonary disease Multilobar pneumonia - Pulmonology following, appreciate input. - Continue tracheostomy with supplemental oxygen. - Tobramycin completed, course ended on 01/20/17. - Levsin PRN for increased secretions. Dysphagia Hypoalbuminemia - PEG placed. Continue TF. - Jevity 1.5 through PEG tube with Corby supplementation. Tolerating well. Sacral/Coccyx wound - Continue specialty bed. - Wound care following, wound vac continued. GI Prophylaxis: Pepcid. DVT prophylaxis: SCDs. Coumadin. Discussed with Dr. Yuan Discharge Planning Patient will need long-term care facility. CM continuing to seek placement. Harley LOWE note * 03/07/17- No accepting facility at this time. Barrier: payer is Medicaid and pt is too expensive with PEG and trach. Possibly can be placed with one or the other but not both. Jackie Walsh Mar 08, 2017 16:26
--- NOTE | 2017-03-08 19:50 | HHI.PR ---
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 No new complaint. Objective Vital Signs Vital Signs Date Time Temp Pulse Resp B/P Pulse Ox O2 Delivery O2 Flow Rate FiO2 03/08/17 16:19 97.5 85 18 136/80 100 03/08/17 15:43 100 T-Piece 6.00 28 Humidified 03/08/17 12:22 88 03/08/17 12:21 98.2 94 18 110/65 95 03/08/17 10:59 96 T-piece 28 03/08/17 10:59 96 T-piece 6.00 28 03/08/17 09:29 100 T-Piece 6.00 28 Humidified 03/08/17 08:22 98.2 89 18 139/75 98 03/08/17 04:00 97.3 84 18 119/70 100 03/08/17 00:00 98.7 80 18 117/61 100 03/07/17 20:00 97.3 92 22 153/114 100 I/O 03/07/17 03/07/17 03/07/17 03/08/17 03/08/17 03/08/17 06:59 14:59 22:59 06:59 14:59 22:59 Intake Total 200 ml 200 ml 533 ml Output Total 400 ml 1450 ml 350 ml 1600 ml Balance -400 ml -1450 ml -150 ml -1400 ml 533 ml Tube Feeding 333 ml Other 200 ml 200 ml 200 ml Output Urine Total 400 ml 1450 ml 350 ml 1600 ml # Bowel Movements 2 1 Result Diagram: 03/07/17905 Objective Remarks GENERAL: MBMN WF, on Trach collar SKIN: Warm and dry. HEAD: Normocephalic. EYES: No scleral icterus. No injection or drainage. NECK: Supple, trachea midline. No JVD or lymphadenopathy. has trach CARDIOVASCULAR: Regular rate and rhythm without murmurs, gallops, or rubs. RESPIRATORY: Breath sounds equal bilaterally. No accessory muscle use. GASTROINTESTINAL: Abdomen soft, non-tender, nondistended. has PEG MUSCULOSKELETAL: No cyanosis, or edema. BACK: Nontender without obvious deformity. No CVA tenderness. A/P Assessment and Plan RF, S/P Trach CVA Arango arango disease CAD COPD SZ disorder PLAN: Aerosol nebs Cont trach collar supplement 02, keep sat >90% Trach suction prn. PARTHA RN at BS. TF Vernon Marx MD Mar 08, 2017 19:50
[2017-03-08] MEDS: ACETAMINOPHEN/HYDROcodone 325 MG/5 MG TAB G-TUBE PRN (21:44)
[2017-03-08] MEDS: SACUBITRIL/VALSARTAN 24 MG-26 MG TAB PEG SCH (21:46)
[2017-03-09] VITALS (11 sets, daily range): BP systolic 116–140; BP diastolic 56–70; PULSE 80–108; RESP 18–22; TEMP 97–98; O2SAT 96–100
[2017-03-09] MEDS: CHLORHEXIDINE GLUCONATE 2 % 1 PACK (2 CLOTHS) TOP SCH (03:08)
[2017-03-09] MEDS: FUROSEMIDE 20 MG/2 ML VIAL IV PUSH SCH ×3 (05:07→22:00)
[2017-03-09] MEDS: FREE WATER G-TUBE SCH ×3 (05:07→22:00)
[2017-03-09] MEDS: CHLORHEXIDINE 0.12% (ORAL KIT) 15 ML CUP MT SCH ×2 (07:57→20:00)
[2017-03-09] MEDS: LACTULOSE SYRUP 20 GM/30 ML CUP G-TUBE SCH ×3 (07:58→16:41)
[2017-03-09] MEDS: SENNOSIDES SYRUP 8.8 MG/5 ML CUP G-TUBE SCH ×2 (07:58→21:00)
[2017-03-09] MEDS: FERROUS SULFATE 300 MG /5ML UDC PEG SCH ×2 (07:58→22:00)
[2017-03-09] MEDS: carBAMazepine SUSP 200 MG/10 ML UDC PEG SCH ×2 (07:58→21:59)
[2017-03-09] MEDS: JUVEN POWDER 1 PACK G-TUBE SCH ×2 (07:59→21:00)
[2017-03-09] MEDS: levETIRAcetam 500 MG/5 ML UDC NG SCH ×2 (07:59→22:00)
[2017-03-09] MEDS: METOLAZONE 5 MG TAB PEG SCH (07:59)
[2017-03-09] MEDS: FAMOTIDINE 20 MG TAB NG SCH ×2 (07:59→21:59)
[2017-03-09] MEDS: SACUBITRIL/VALSARTAN 24 MG-26 MG TAB PEG SCH ×2 (07:59→21:59)
[2017-03-09] MEDS: FOLIC ACID 1 MG TAB OG-TUBE SCH (07:59)
[2017-03-09] MEDS: SODIUM CHLORIDE 0.9% FLUSH 10 ML FLUSH IV FLUSH SCH ×2 (07:59→21:00)
[2017-03-09] MEDS: ATORVASTATIN 40 MG TAB G-TUBE SCH (07:59)
[2017-03-09] MEDS: METOPROLOL TARTRATE 25 MG TAB G-TUBE SCH ×2 (07:59→21:59)
[2017-03-09] MEDS: POVIDONE IODINE 10% OINT 30 GM TUBE TOPICAL SCH (08:00)
[2017-03-09] MEDS: ASCORBIC ACID 500 MG TAB PEG SCH ×2 (08:00→21:59)
[2017-03-09] MEDS: BROMOCRIPTINE MESYLATE 2.5 MG TAB OG-TUBE SCH ×2 (08:00→22:00)
[2017-03-09] MEDS: SODIUM HYPOCHLORITE 0.25% 500 ML BTL TOPICAL SCH (08:00)
[2017-03-09 09:40] LABS: INTERNATIONAL NORMALIZED RATIO 2.5 RATIO; PROTHROMBIN TIME - PATIENT 29.1 SEC (9.8-11.6)
[2017-03-09 09:52] LABS: BICARBONATE 34.9 MEQ/L (21.0-32.0); POTASSIUM 3.5 MEQ/L (3.5-5.1)
[2017-03-09 09:55] LABS: AUTOMATED NEUTROPHIL # 5.6 TH/MM3 (1.8-7.7); BASOPHIL # 0.1 TH/MM3 (0-0.2); BASOPHIL % 0.8 % (0.0-2.0); EOSINOPHIL # 0.3 TH/MM3 (0-0.4); EOSINOPHIL % 3.8 % (0.0-4.0); HEMATOCRIT 29.7 % (35.0-46.0); HEMO FLAGS DIFF FINAL; LYMPH % 17.5 % (9.0-44.0); LYMPHOCYTE # 1.4 TH/MM3 (1.0-4.8); MEAN CELL VOLUME 75.5 FL (80.0-100.0); MEAN CORPUSCULAR HEMOGLOBIN 24.5 PG (27.0-34.0); MEAN CORPUSCULAR HGB CONC 32.4 % (32.0-36.0); MONO % 8.3 % (0.0-8.0); NEUT % 69.6 % (16.0-70.0); PLATELET COUNT 380 TH/MM3 (150-450); RED BLOOD COUNT 3.93 MIL/MM3 (4.00-5.30); RED CELL DISTRIBUTION WIDTH 20.7 % (11.6-17.2); WHITE BLOOD COUNT 8.1 TH/MM3 (4.0-11.0)
--- NOTE | 2017-03-09 14:07 | HHI.PR ---
Subjective Remarks Follow up on patient with bilateral frontal CVA, Moyamoya disease, seizure d/o, COPD, multilobar pneumonia, acute respiratory failure, anasarca, and systolic/ diastolic heart failure. Patient seen and examined. No new acute changes overnight. Opens eyes to stimuli. Afebrile. VSS. Tolerating TF. Objective Vitals Vital Signs Date Time Temp Pulse Resp B/P Pulse Ox O2 Delivery O2 Flow Rate FiO2 03/09/17 12:26 97.1 87 20 122/62 99 03/09/17 11:07 96 T-piece 6.00 28 03/09/17 11:07 96 T-piece 6.00 28 03/09/17 08:13 97.0 108 20 116/68 100 03/09/17 07:54 84 03/09/17 07:50 100 T-Piece 6.00 28 Humidified 03/09/17 04:00 98.0 96 22 122/64 99 03/09/17 00:00 98.0 85 22 140/59 98 03/08/17 21:20 98 T-piece 6.00 03/08/17 20:00 98.0 93 22 142/70 94 03/08/17 19:15 98 T-Piece 6.00 28 Humidified 03/08/17 16:19 97.5 85 18 136/80 100 03/08/17 15:43 100 T-Piece 6.00 28 Humidified I/O 03/08/17 03/08/17 03/08/17 03/09/17 03/09/17 03/09/17 07:00 15:00 23:00 07:00 15:00 23:00 Intake Total 200 ml 200 ml 533 ml 586 ml Output Total 350 ml 1600 ml 500 ml 1000 ml Balance -150 ml -1400 ml 33 ml -414 ml Tube Feeding 333 ml 586 ml Other 200 ml 200 ml 200 ml Output Urine Total 350 ml 1600 ml 500 ml 1000 ml # Bowel Movements 2 1 Result Diagram: 03/09/1783003/09/17830 Imaging Last Impressions Abdomen X-Ray 02/11/17 0000 Signed Impressions: Service Date/Time: Saturday, February 11, 2017 17:52 - CONCLUSION: Minimal colonic distention. Kenneth Frost MD FACR Catheter Change 02/10/17 0000 Signed Impressions: Service Date/Time: February 13:47 - CONCLUSION: Uncomplicated fluoroscopic guided gastrostomy tube replacement. Positioning confirmed. The tube can be used immediately. Nghia Pacheco MD Lower Extremity Ultrasound 02/01/17 0000 Signed Impressions: Service Date/Time: Wednesday, February 01, 2017 13:23 - CONCLUSION: Normal examination. Gray Veronica MD Chest X-Ray 02/01/17 0000 Signed Impressions: Service Date/Time: Wednesday, February 01, 2017 08:45 - CONCLUSION: 1. Stable tracheostomy. 2. Mild interstitial prominence may reflect slight positive fluid balance. Christiano Villagran MD Brain MRI 01/06/17 0000 Signed Impressions: Service Date/Time: January 14:19 - CONCLUSION: Continued evolutionary changes of large bilateral frontal lobe infarcts. Sami Mccarthy MD Objective Remarks GENERAL: Well-nourished, well-developed female patient lying in bed in NAD, t- collar in place. bedside O2 sats 100%. SKIN: Warm and dry. Mild anasarca. HEENT: Normocephalic. Pupils equal and round. No scleral icterus. No injection or drainage. No nasal bleeding or discharge. Mucous membranes pink and moist. NECK: Supple. Trachea midline. CARDIOVASCULAR: Regular rate and rhythm. S1, S2 noted. No murmur appreciated. RESPIRATORY: No accessory muscle use. Coarse breath sounds noted. Breath sounds equal bilaterally. GASTROINTESTINAL: Abdomen soft, non-tender, nondistended. Normoactive bowel sounds x4. MUSCULOSKELETAL: No obvious deformities. Extremities without clubbing, cyanosis. NEUROLOGICAL: Does not track with eyes. Occasionally opens to vocal and noxious stimuli. No spontaneous movement in upper and lower extremities. Procedures PEG 11/24/2016 Percutaneous tracheostomy. 11/18/2016 Moderate encephalopathy with suggestion of left temporal region cortical irritability. No active seizures. Clinical correlation. Echocardiogram Severe dilated left ventricle. Wall thickness is normal. The left ventricular systolic function is moderately reduced with an estimated ejection fraction in the range of 35-40%. Doppler parameters are consistent with a restrictive left ventricular filling pattern indicative of decreased left ventricular diastolic compliance and increase left atrial pressure (grade 3 diastolic dysfunction). There is severe tricuspid regurgitation. There is severe pulmonary hypertension present ( > 70 mmHg). Severe mitral valve regurgitation. Urinary Catheter: Yes Assessment to: Continue Brown insert reason: Stage III/IV Press Ulcer Date of Insertion: Feb 28, 2017 A/P Problem List: (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 She was was admitted to [facility] emergency department 11/04/16 with difficulty getting her thoughts together. She was found to have multifocal nonhemorrhagic infarcts in left frontal and parietal regions, right frontal lobe and history of moyamoya disease. She was initially awake and following commands with weakness of RLE and some aphasia. She was transferred to [facility] where he had an cerebral angiogram consistent with moyamoya. There were plans to perform extracranial/intracranial bypass. However she had a seizure and ended up being intubated for status either 4/4 or 4/5.. She was found to have a new right frontal infarct area and she was started on Dilantin and Keppra and it was felt that she would not be a candidate for intervention. She has been intubated 9- 10 days and apparently she has been tolerating C Pap trials to some extent but mental status prevents extubation. Treating team was discussing with family trach/PEG. Apparently family requested transfer back to [place] because they live locally here and wanted her closer to home. Patient remained under critical care medicine until 12/24/2016. Bilateral large frontal CVA Moyamoya Disease Seizure Disorder - Continue Keppra 1,500 mg q12h - Continue Tegretol 200 mg q12h - Follow for seizure activity - Continue aspirin - Continue Bromocriptine - Tegretol level WNL. Hyperammonemia: 70 -->47. Lactulose 30 ml PO TID. Liquid stools noted. Systolic and diastolic heart failure, acute - Continue Lasix and MACKENZIE inhibitor. - Monitor electrolytes and renal function. Atrial Fibrillation, acute: Controlled. - Follow daily INR. Pharmacy to manage. Watch closely. - Continue Coumadin. Hyponatremia: BMP reviewed. Na 130. Will decrease FWF from 100 ml q6hr to q8hr. Anasarca: Continue Lasix 20 mg IV TID. Zaroxolyn 5 mg PO daily. Continue to monitor. Improving slowly. Chronic Respiratory Failure Chronic obstructive pulmonary disease Multilobar pneumonia - Pulmonology following, appreciate input. - Continue tracheostomy with supplemental oxygen. - Tobramycin completed, course ended on 01/20/17. - Levsin PRN for increased secretions. Dysphagia Hypoalbuminemia - PEG placed. Continue TF. - Jevity 1.5 through PEG tube with Corby supplementation. Tolerating well. Sacral/Coccyx wound - Continue specialty bed. - Wound care following, wound vac continued. GI Prophylaxis: Pepcid. DVT prophylaxis: SCDs. Coumadin. Discharge Planning Patient will need long-term care facility. CM continuing to seek placement. Harley LOWE note * 03/07/17- No accepting facility at this time. Barrier: payer is Medicaid and pt is too expensive with PEG and trach. Possibly can be placed with one or the other but not both. Jackie Walsh Mar 09, 2017 14:07
[2017-03-09] MEDS: WARFARIN SOD 10 MG TAB PEG SCH (16:41)
--- NOTE | 2017-03-09 18:52 | HHI.PR ---
Subjective Remarks 66 YOWF with Rf, s/p trach H/O CVA,Arango Aarngo disease On trach collar No fever. Awake, looks around, does't track Objective Vital Signs Vital Signs Date Time Temp Pulse Resp B/P Pulse Ox O2 Delivery O2 Flow Rate FiO2 03/09/17 16:13 97.5 84 20 117/56 98 03/09/17 15:20 80 03/09/17 12:26 97.1 87 20 122/62 99 03/09/17 11:07 96 T-piece 6.00 28 03/09/17 11:07 96 T-piece 6.00 28 03/09/17 08:13 97.0 108 20 116/68 100 03/09/17 07:54 84 03/09/17 07:50 100 T-Piece 6.00 28 Humidified 03/09/17 04:00 98.0 96 22 122/64 99 03/09/17 00:00 98.0 85 22 140/59 98 03/08/17 21:20 98 T-piece 6.00 28 03/08/17 20:00 98.0 93 22 142/70 94 03/08/17 19:15 98 T-Piece 6.00 28 Humidified I/O 03/08/17 03/08/17 03/08/17 03/09/17 03/09/17 03/09/17 07:00 15:00 23:00 07:00 15:00 23:00 Intake Total 200 ml 200 ml 533 ml 586 ml 872 ml Output Total 350 ml 1600 ml 500 ml 1000 ml 600 ml Balance -150 ml -1400 ml 33 ml -414 ml 272 ml Tube Feeding 333 ml 586 ml 612 ml Tube Irrigant 60 ml Other 200 ml 200 ml 200 ml 200 ml Output Urine Total 350 ml 1600 ml 500 ml 1000 ml 600 ml # Bowel Movements 2 1 1 Result Diagram: 03/09/1783003/09/17830 Objective Remarks GENERAL: MBMN WF, on Trach collar SKIN: Warm and dry. HEAD: Normocephalic. EYES: No scleral icterus. No injection or drainage. NECK: Supple, trachea midline. No JVD or lymphadenopathy. has trach CARDIOVASCULAR: Regular rate and rhythm without murmurs, gallops, or rubs. RESPIRATORY: Breath sounds equal bilaterally. No accessory muscle use. GASTROINTESTINAL: Abdomen soft, non-tender, nondistended. has PEG MUSCULOSKELETAL: No cyanosis, or edema. BACK: Nontender without obvious deformity. No CVA tenderness. A/P Assessment and Plan RF, S/P Trach CVA Arango arango disease CAD COPD SZ disorder PLAN: Aerosol nebs Cont trach collar supplement 02, keep sat >90% Trach suction prn. PARTHA RN at BS. TF Vernon Marx MD Mar 09, 2017 18:52
[2017-03-10] VITALS (10 sets, daily range): BP systolic 104–146; BP diastolic 50–77; PULSE 89–101; RESP 18–20; TEMP 97–99.8; O2SAT 91–100
[2017-03-10] MEDS: CHLORHEXIDINE GLUCONATE 2 % 1 PACK (2 CLOTHS) TOP SCH (03:27)
[2017-03-10] MEDS: FREE WATER G-TUBE SCH ×3 (05:49→22:47)
[2017-03-10] MEDS: FUROSEMIDE 20 MG/2 ML VIAL IV PUSH SCH (05:50)
[2017-03-10 08:09] LABS: INTERNATIONAL NORMALIZED RATIO 2.5 RATIO; PROTHROMBIN TIME - PATIENT 28.8 SEC (9.8-11.6)
[2017-03-10] MEDS: carBAMazepine SUSP 200 MG/10 ML UDC PEG SCH ×2 (09:42→22:47)
[2017-03-10] MEDS: ATORVASTATIN 40 MG TAB G-TUBE SCH (09:43)
[2017-03-10] MEDS: METOLAZONE 5 MG TAB PEG SCH (09:43)
[2017-03-10] MEDS: LACTULOSE SYRUP 20 GM/30 ML CUP G-TUBE SCH ×3 (09:43→17:04)
[2017-03-10] MEDS: JUVEN POWDER 1 PACK G-TUBE SCH ×2 (09:43→22:51)
[2017-03-10] MEDS: ASCORBIC ACID 500 MG TAB PEG SCH ×2 (09:43→22:47)
[2017-03-10] MEDS: METOPROLOL TARTRATE 25 MG TAB G-TUBE SCH ×2 (09:43→22:51)
[2017-03-10] MEDS: levETIRAcetam 500 MG/5 ML UDC NG SCH ×2 (09:43→22:45)
[2017-03-10] MEDS: FOLIC ACID 1 MG TAB OG-TUBE SCH (09:43)
[2017-03-10] MEDS: CHLORHEXIDINE 0.12% (ORAL KIT) 15 ML CUP MT SCH ×2 (09:43→22:51)
[2017-03-10] MEDS: SENNOSIDES SYRUP 8.8 MG/5 ML CUP G-TUBE SCH ×2 (09:43→22:45)
[2017-03-10] MEDS: FAMOTIDINE 20 MG TAB NG SCH ×2 (09:43→22:46)
[2017-03-10] MEDS: SACUBITRIL/VALSARTAN 24 MG-26 MG TAB PEG SCH ×2 (09:43→22:46)
[2017-03-10] MEDS: FERROUS SULFATE 300 MG /5ML UDC PEG SCH ×2 (09:43→22:45)
[2017-03-10] MEDS: SODIUM CHLORIDE 0.9% FLUSH 10 ML FLUSH IV FLUSH SCH ×2 (09:43→22:46)
[2017-03-10] MEDS: BROMOCRIPTINE MESYLATE 2.5 MG TAB OG-TUBE SCH ×2 (09:43→22:46)
[2017-03-10] MEDS: SODIUM HYPOCHLORITE 0.25% 500 ML BTL TOPICAL SCH (09:44)
[2017-03-10] MEDS: POVIDONE IODINE 10% OINT 30 GM TUBE TOPICAL SCH (09:44)
--- NOTE | 2017-03-10 13:01 | HHI.PR ---
Subjective Remarks Follow up on patient with bilateral frontal CVA, Moyamoya disease, seizure d/o, COPD, multilobar pneumonia, acute respiratory failure, anasarca, and systolic/ diastolic heart failure. Patient seen and examined. No new acute changes overnight. Opens eyes to stimuli. Afebrile. VSS. Tolerating TF. Objective Vitals Vital Signs Date Time Temp Pulse Resp B/P Pulse Ox O2 Delivery O2 Flow Rate FiO2 03/10/17 12:00 98.4 99 19 106/55 97 03/10/17 09:25 96 T-piece 6.00 28 03/10/17 09:25 96 T-piece 6.00 28 03/10/17 08:50 97 Blow By 28 T-Piece Humidified 03/10/17 08:00 97.2 89 19 109/56 98 03/10/17 04:00 97.0 101 20 146/77 98 03/10/17 01:45 99 T-piece 6.00 03/10/17 00:00 98.4 98 18 111/75 100 03/09/17 22:51 100 T-piece 6.00 03/09/17 22:49 100 T-piece 6.00 03/09/17 20:00 97.0 90 18 131/70 100 03/09/17 16:13 97.5 84 20 117/56 98 03/09/17 15:20 80 I/O 03/09/17 03/09/17 03/09/17 03/10/17 03/10/17 03/10/17 07:00 15:00 23:00 07:00 15:00 23:00 Intake Total 586 ml 872 ml 418 ml Output Total 1000 ml 600 ml 1735 ml Balance -414 ml 272 ml -1317 ml Tube Feeding 586 ml 612 ml 418 ml Tube Irrigant 60 ml Other 200 ml Output Urine Total 1000 ml 600 ml 1735 ml # Bowel Movements 1 1 2 Result Diagram: 03/09/1731 03/09/17830 Imaging Last Impressions Abdomen X-Ray 02/11/17 0000 Signed Impressions: Service Date/Time: Saturday, February 11, 2017 17:52 - CONCLUSION: Minimal colonic distention. Kenneth Frost MD FACR Catheter Change 02/10/17 0000 Signed Impressions: Service Date/Time: February 13:47 - CONCLUSION: Uncomplicated fluoroscopic guided gastrostomy tube replacement. Positioning confirmed. The tube can be used immediately. Nghia Pacheco MD Lower Extremity Ultrasound 02/01/17 0000 Signed Impressions: Service Date/Time: Wednesday, February 01, 2017 13:23 - CONCLUSION: Normal examination. Gray Veronica MD Chest X-Ray 02/01/17 0000 Signed Impressions: Service Date/Time: Wednesday, February 01, 2017 08:45 - CONCLUSION: 1. Stable tracheostomy. 2. Mild interstitial prominence may reflect slight positive fluid balance. Christiano Villagran MD Brain MRI 01/06/17 0000 Signed Impressions: Service Date/Time: January 14:19 - CONCLUSION: Continued evolutionary changes of large bilateral frontal lobe infarcts. Sami Mccarthy MD Objective Remarks GENERAL: obese female patient lying in bed in NAD, t-collar in place. bedside O2 sats 100%. SKIN: Warm and dry. Mild anasarca. HEENT: Normocephalic. Pupils equal and round. No scleral icterus. No injection or drainage. No nasal bleeding or discharge. Mucous membranes pink and moist. NECK: Supple. Trachea midline. CARDIOVASCULAR: Regular rate and rhythm. S1, S2 noted. No murmur appreciated. RESPIRATORY: No accessory muscle use. Coarse breath sounds noted. Breath sounds equal bilaterally. GASTROINTESTINAL: Abdomen soft, non-tender, nondistended. Normoactive bowel sounds x4. MUSCULOSKELETAL: No obvious deformities. Extremities without clubbing, cyanosis. NEUROLOGICAL: Does not track with eyes. Occasionally opens to vocal and noxious stimuli. No spontaneous movement in upper or lower extremities. Procedures PEG 11/24/2016 Percutaneous tracheostomy. 11/18/2016 Moderate encephalopathy with suggestion of left temporal region cortical irritability. No active seizures. Clinical correlation. Echocardiogram Severe dilated left ventricle. Wall thickness is normal. The left ventricular systolic function is moderately reduced with an estimated ejection fraction in the range of 35-40%. Doppler parameters are consistent with a restrictive left ventricular filling pattern indicative of decreased left ventricular diastolic compliance and increase left atrial pressure (grade 3 diastolic dysfunction). There is severe tricuspid regurgitation. There is severe pulmonary hypertension present ( > 70 mmHg). Severe mitral valve regurgitation. 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 She was was admitted to [facility] emergency department 11/04/16 with difficulty getting her thoughts together. She was found to have multifocal ischemic infarcts in left frontal and parietal regions, right frontal lobe and history of moyamoya disease. She was initially awake and following commands with weakness of RLE and some aphasia. She was transferred to [facility] where he had an cerebral angiogram consistent with moyamoya. There were plans to perform extracranial/ intracranial bypass. However she had a seizure and ended up being intubated for status epilepticus 11/2016 She was found to have a new right frontal infarct area and she was started on Dilantin and Keppra and it was felt that she would not be a candidate for intervention. She has been intubated 9-10 days. Treating team was discussing with family trach/PEG. Family requested transfer back to [place] because they live locally here and wanted her closer to home. Patient remained under critical care medicine until 12/24/2016. Bilateral large frontal CVA Moyamoya Disease Seizure Disorder - Continue Keppra 1,500 mg q12h - Continue Tegretol 200 mg q12h - Follow for seizure activity - Continue aspirin - Continue Bromocriptine - Tegretol level WNL. Hyperammonemia: 70 -->47. Lactulose 30 ml PO TID. Liquid stools noted. - recheck ammonia in AM Mixed Systolic and diastolic heart failure, acute - Continue Lasix and MACKENZIE inhibitor. - Monitor electrolytes and renal function. Atrial Fibrillation, acute: Controlled. - Follow daily INR. Pharmacy to manage. Watch closely. - Continue Coumadin. Hyponatremia: BMP reviewed. Na 130. Will decrease FWF from 100 ml q6hr to q8hr. - recheck BMP in AM Anasarca: Continue Lasix 20 mg IV TID. Zaroxolyn 5 mg PO daily. Continue to monitor. Improving slowly. - also check albumin in AM Chronic Respiratory Failure Chronic obstructive pulmonary disease Multilobar pneumonia - Pulmonology following, appreciate input. - Continue tracheostomy with supplemental oxygen. - Tobramycin completed, course ended on 01/20/17. - Levsin PRN for increased secretions. Dysphagia Hypoalbuminemia - PEG placed. Continue TF. - Jevity 1.5 through PEG tube with Corby supplementation. Tolerating well. Sacral/Coccyx wound - Continue specialty bed. - Wound care following, wound vac continued. GI Prophylaxis: Pepcid. DVT prophylaxis: SCDs. Coumadin. Discussed with nursing and Dr. Moreno Discharge Planning CM note 03/10/17- No accepting facility at this time. Barrier: payer is Medicaid and pt is too expensive with PEG and trach. Possibly can be placed with one or the other but not both. Hannah Boston CM Mar 10, 2017 13:01
[2017-03-10] MEDS: WARFARIN SOD 10 MG TAB PEG SCH (15:58)
[2017-03-10] MEDS: HYOSCYAMINE SOLN 0.125 MG/ML 15 ML BTL G-TUBE SCH (18:10)
--- NOTE | 2017-03-10 20:22 | HHI.PR ---
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 Awake, looks around, does't track Lot of thin secretions Objective Vital Signs Vital Signs Date Time Temp Pulse Resp B/P Pulse Ox O2 Delivery O2 Flow Rate FiO2 03/10/17 16:00 99.8 100 19 106/58 98 03/10/17 12:00 98.4 99 19 106/55 97 03/10/17 09:25 96 T-piece 6.00 28 03/10/17 09:25 96 T-piece 6.00 28 03/10/17 08:50 97 Blow By 28 T-Piece Humidified 03/10/17 08:00 97.2 89 19 109/56 98 03/10/17 04:00 97.0 101 20 146/77 98 03/10/17 01:45 99 T-piece 6.00 28 03/10/17 00:00 98.4 98 18 111/75 100 03/09/17 22:51 100 T-piece 6.00 03/09/17 22:49 100 T-piece 6.00 28 I/O 03/09/17 03/09/17 03/09/17 03/10/17 03/10/17 03/10/17 07:00 15:00 23:00 07:00 15:00 23:00 Intake Total 586 ml 872 ml 418 ml Output Total 1000 ml 600 ml 1735 ml 850 ml Balance -414 ml 272 ml -1317 ml -850 ml Tube Feeding 586 ml 612 ml 418 ml Tube Irrigant 60 ml Other 200 ml Output Urine Total 1000 ml 600 ml 1735 ml 850 ml # Bowel Movements 1 1 2 1 Result Diagram: 03/09/1783003/09/17830 Objective Remarks GENERAL: MBMN WF, on Trach collar SKIN: Warm and dry. HEAD: Normocephalic. EYES: No scleral icterus. No injection or drainage. NECK: Supple, trachea midline. No JVD or lymphadenopathy. has trach CARDIOVASCULAR: Regular rate and rhythm without murmurs, gallops, or rubs. RESPIRATORY: Breath sounds equal bilaterally. No accessory muscle use. GASTROINTESTINAL: Abdomen soft, non-tender, nondistended. has PEG MUSCULOSKELETAL: No cyanosis, or edema. BACK: Nontender without obvious deformity. No CVA tenderness. A/P Assessment and Plan RF, S/P Trach CVA Arango arango disease CAD COPD SZ disorder PLAN: Aerosol nebs Cont trach collar supplement 02, keep sat >90% Trach suction prn. PARTHA RN at BS. TF Vernon Newman MD Mar 10, 2017 20:22
[2017-03-11] VITALS (10 sets, daily range): BP systolic 106–157; BP diastolic 54–80; PULSE 80–181; RESP 17–20; TEMP 97.5–99.1; O2SAT 95–100
[2017-03-11] MEDS: HYOSCYAMINE SOLN 0.125 MG/ML 15 ML BTL G-TUBE SCH ×5 (00:15→23:30)
[2017-03-11] MEDS: CHLORHEXIDINE GLUCONATE 2 % 1 PACK (2 CLOTHS) TOP SCH (03:48)
[2017-03-11] MEDS: FREE WATER G-TUBE SCH ×3 (05:08→21:48)
[2017-03-11] MEDS: JUVEN POWDER 1 PACK G-TUBE SCH ×2 (09:59→21:48)
[2017-03-11] MEDS: CHLORHEXIDINE 0.12% (ORAL KIT) 15 ML CUP MT SCH ×2 (09:59→21:48)
[2017-03-11] MEDS: LACTULOSE SYRUP 20 GM/30 ML CUP G-TUBE SCH ×3 (09:59→18:10)
[2017-03-11] MEDS: levETIRAcetam 500 MG/5 ML UDC NG SCH ×2 (09:59→21:47)
[2017-03-11] MEDS: ATORVASTATIN 40 MG TAB G-TUBE SCH (09:59)
[2017-03-11] MEDS: FOLIC ACID 1 MG TAB OG-TUBE SCH (09:59)
[2017-03-11] MEDS: SENNOSIDES SYRUP 8.8 MG/5 ML CUP G-TUBE SCH ×2 (09:59→21:47)
[2017-03-11] MEDS: FERROUS SULFATE 300 MG /5ML UDC PEG SCH ×2 (09:59→21:48)
[2017-03-11] MEDS: FAMOTIDINE 20 MG TAB NG SCH ×2 (09:59→21:48)
[2017-03-11] MEDS: SACUBITRIL/VALSARTAN 24 MG-26 MG TAB PEG SCH ×2 (09:59→21:48)
[2017-03-11] MEDS: SODIUM CHLORIDE 0.9% FLUSH 10 ML FLUSH IV FLUSH SCH ×2 (09:59→21:48)
[2017-03-11] MEDS: BROMOCRIPTINE MESYLATE 2.5 MG TAB OG-TUBE SCH ×2 (09:59→21:48)
[2017-03-11] MEDS: SODIUM HYPOCHLORITE 0.25% 500 ML BTL TOPICAL SCH (10:00)
[2017-03-11] MEDS: ASCORBIC ACID 500 MG TAB PEG SCH ×2 (10:00→21:48)
[2017-03-11] MEDS: METOLAZONE 5 MG TAB PEG SCH (10:00)
[2017-03-11] MEDS: carBAMazepine SUSP 200 MG/10 ML UDC PEG SCH ×2 (10:00→21:47)
[2017-03-11] MEDS: POVIDONE IODINE 10% OINT 30 GM TUBE TOPICAL SCH (10:00)
[2017-03-11] MEDS: METOPROLOL TARTRATE 25 MG TAB G-TUBE SCH ×2 (10:01→21:48)
--- NOTE | 2017-03-11 10:49 | PD.WCN.NOT ---
Wound Consult Description: Sacrum Recommendation: Wound VAC dressing change per orders twice weekly (Tuesday and Tuesday). Additional Information: Wound Vac changed with PERLA Powell at bedside for assistance. Neg Pressure Wound Therapy Wound Location Wound Location: Sacrum Wound Description Length: 3.8cm Width: 3cm Depth: 3cm Underminin-5 o'clock with deepest noted @4 o'clock of 3.3cm Wound bed appearance: ~80% vascular red non granulating tissue and ~20% bone palpated Periwound appearance: Other (There is a dark purple non blanching discoloration noted to the periwound @ 3 o'clock measuring ~1cm x 2cm indicating DTI) Settings Suction: 125 mmHg, Continuous Intensity: Low Other Information: Bridged Foam type: Black Number of pieces: 1 Additonal Information Patient seen on for wound VAC dressing change to sacrum with PERLA Powell at bedside for assistance in repositioning and support of patient. Patient was suctioned via inline suction prior to performing dressing change due to coughing and secretions present. Wound VAC machine was observed and appeared to be working properly without leaks noted. Canister is noted with ~75ml of dark red/brown drainage. Patient tube feed placed on hold. Patient was positioned to her left side with maximum assistance. Foul odor was apparent when patient was turned, machine was not alarming, however there was no suction noted to the dressing at the sacral area, the dressing had partially been removed upon assessment and was not attached. Black granufoam was removed and the wound was cleansed with 0.25% Dakins solution as ordered between dressing changes. There is minimal sanguinous drainage noted to removed gauze used to cleanse wound. Periwound was sprayed with Cavilon skin prep prior to protecting skin from foam with drape being placed over intact skin from periwound up to right lateral upper thigh where trac pad was placed and secured. Black granufoam was cut in a cinnamon roll fashion and inserted into wound using a coiling method and then secured with VAC drape. 1 piece of granufoam was used in all. Stoma paste was applied to periwound to obtain and maintain seal once wound VAC was turned on with settings described above. No leaks noted, seal obtained. Patient had a small soft bm with a montemayor/green color, after cleansing patient, a new ultrasorb was obtained and placed underneath patients bottom. Patient was positioned to her right side and elevated head >30 degrees so that tube feed could be resumed. Patient is noted with bilateral arm shaking that was reported earlier this week that was stated to be consistent with Moyamoya. While in patient room , telemetry called to notify [employer] of heart rate in the low 100's immediately after dressing was completed. Stephany Fang [facility] Mar 11, 2017 10:49
[2017-03-11 12:39] LABS: INTERNATIONAL NORMALIZED RATIO 2.4 RATIO; PROTHROMBIN TIME - PATIENT 28.1 SEC (9.8-11.6)
[2017-03-11 12:52] LABS: BICARBONATE 33.8 MEQ/L (21.0-32.0); POTASSIUM 3.1 MEQ/L (3.5-5.1)
--- NOTE | 2017-03-11 14:30 | HHI.PR ---
Subjective Remarks Follow up on patient with bilateral frontal CVA, Moyamoya disease, seizure d/o, COPD, multilobar pneumonia, acute respiratory failure, anasarca, and systolic/ diastolic heart failure. Patient seen and examined. No new acute changes overnight. Afebrile. VSS. Tolerating TF. Objective Vitals Vital Signs Date Time Temp Pulse Resp B/P Pulse Ox O2 Delivery O2 Flow Rate FiO2 03/11/17 12:35 93 03/11/17 12:00 97.6 86 17 110/57 99 03/11/17 11:30 97 T-piece 28 03/11/17 08:00 98.3 87 17 115/56 99 03/11/17 08:00 98 T-Piece 28 Humidified 03/11/17 04:00 97.5 93 20 106/54 95 03/11/17 01:14 86 03/11/17 00:00 98.6 181 20 120/59 98 03/10/17 21:46 98 T-piece 6.00 28 03/10/17 21:46 98 T-piece 6.00 28 03/10/17 20:00 97.8 95 20 104/50 91 03/10/17 19:30 T-Piece 6.00 28 Humidified 03/10/17 19:30 97.8 95 20 104/51 91 03/10/17 16:00 99.8 100 19 106/58 98 I/O 03/10/17 03/10/17 03/10/17 03/11/17 03/11/17 03/11/17 07:00 15:00 23:00 07:00 15:00 23:00 Intake Total 418 ml 1070 ml 375 ml Output Total 1735 ml 850 ml 1000 ml Balance -1317 ml -850 ml 1070 ml -625 ml Tube Feeding 418 ml 970 ml 275 ml Other 100 ml 100 ml Output Urine Total 1735 ml 850 ml 1000 ml # Bowel Movements 2 1 2 Result Diagram: 03/09/17 0831 03/11/17 1213 Objective Remarks GENERAL: obese female patient lying in bed in NAD, t-collar in place. bedside O2 sats 100%. SKIN: Warm and dry. Mild anasarca. HEENT: Normocephalic. Pupils equal and round. No scleral icterus. No injection or drainage. No nasal bleeding or discharge. Mucous membranes pink and moist. NECK: Supple. Trachea midline. CARDIOVASCULAR: Regular rate and rhythm. S1, S2 noted. No murmur appreciated. RESPIRATORY: No accessory muscle use. Coarse breath sounds noted. Breath sounds equal bilaterally. GASTROINTESTINAL: Abdomen soft, non-tender, nondistended. Normoactive bowel sounds x4. MUSCULOSKELETAL: No obvious deformities. Extremities without clubbing, cyanosis. NEUROLOGICAL: Does not track with eyes. Occasionally opens to vocal and noxious stimuli. No spontaneous movement in upper or lower extremities. Procedures PEG 11/24/2016 Percutaneous tracheostomy. 11/18/2016 Moderate encephalopathy with suggestion of left temporal region cortical irritability. No active seizures. Clinical correlation. Echocardiogram Severe dilated left ventricle. Wall thickness is normal. The left ventricular systolic function is moderately reduced with an estimated ejection fraction in the range of 35-40%. Doppler parameters are consistent with a restrictive left ventricular filling pattern indicative of decreased left ventricular diastolic compliance and increase left atrial pressure (grade 3 diastolic dysfunction). There is severe tricuspid regurgitation. There is severe pulmonary hypertension present ( > 70 mmHg). Severe mitral valve regurgitation. 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 She was was admitted to [facility] emergency department 11/04/16 with difficulty getting her thoughts together. She was found to have multifocal ischemic infarcts in left frontal and parietal regions, right frontal lobe and history of moyamoya disease. She was initially awake and following commands with weakness of RLE and some aphasia. She was transferred to [facility] where he had an cerebral angiogram consistent with moyamoya. There were plans to perform extracranial/ intracranial bypass. However she had a seizure and ended up being intubated for status epilepticus 11/2016 She was found to have a new right frontal infarct area and she was started on Dilantin and Keppra and it was felt that she would not be a candidate for intervention. She has been intubated 9-10 days. Treating team was discussing with family trach/PEG. Family requested transfer back to [place] because they live locally here and wanted her closer to home. Patient remained under critical care medicine until 12/24/2016. Bilateral large frontal CVA Moyamoya Disease Seizure Disorder - Continue Keppra 1,500 mg q12h - Continue Tegretol 200 mg q12h - Follow for seizure activity - Continue aspirin - Continue Bromocriptine - Tegretol level WNL. Hyperammonemia: 70 -->47 --> 40. Lactulose 30 ml PO TID. Liquid stools noted. - recheck ammonia in AM Mixed Systolic and diastolic heart failure, acute - Continue Lasix and MACKENZIE inhibitor. - Monitor electrolytes and renal function. Atrial Fibrillation, acute: Controlled. - Follow daily INR. Pharmacy to manage. Watch closely. - Continue Coumadin. Hyponatremia: BMP reviewed. Na 130 --> 132. continue FWF from 100 ml q6hr to q8hr. - continue to monitor Hypokalemia: potassium 3.1 - add on Mag level - add potassium chloride eff 25 MEQ via PEG x 1 - recheck BMP in AM Anasarca: Continue Lasix 20 mg IV TID. Zaroxolyn 5 mg PO daily. Continue to monitor. Improving slowly. Chronic Respiratory Failure Chronic obstructive pulmonary disease Multilobar pneumonia - Pulmonology following, appreciate input. - Continue tracheostomy with supplemental oxygen. - Tobramycin completed, course ended on 01/20/17. - Levsin for increased secretions. Dysphagia Hypoalbuminemia - PEG placed. Continue TF. - Jevity 1.5 through PEG tube with Corby supplementation. Tolerating well. Sacral/Coccyx wound - Continue specialty bed. - Wound care following, wound vac continued. GI Prophylaxis: Pepcid. DVT prophylaxis: SCDs. Coumadin. Discussed with nursing and Dr. Moreno Discharge Planning CM working on DC arrangements Hannah Rabago Mar 11, 2017 14:30
[2017-03-11] MEDS ORDERED: POTASSIUM CHLORIDE 25 MEQ EFFERVESCENT TAB PEG ONE (15:00)
[2017-03-11] MEDS: WARFARIN SOD 10 MG TAB PEG SCH (15:54)
--- NOTE | 2017-03-11 17:46 | HHI.PR ---
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 Lot of thin secretions Objective Vital Signs Vital Signs Date Time Temp Pulse Resp B/P Pulse Ox O2 Delivery O2 Flow Rate FiO2 03/11/17 17:08 99 T-piece 28 03/11/17 16:00 98.4 86 17 157/80 97 03/11/17 16:00 97.8 80 18 114/62 98 03/11/17 12:35 93 03/11/17 12:00 97.6 86 17 110/57 99 03/11/17 11:30 97 T-piece 28 03/11/17 08:00 98.3 87 17 115/56 99 03/11/17 08:00 98 T-Piece [address] [facility] 03/11/17 04:00 97.5 93 20 106/54 95 03/11/17 01:14 86 03/11/17 00:00 98.6 181 20 120/59 98 03/10/17 21:46 98 T-piece 6.00 03/10/17 21:46 98 T-piece 6.00 28 03/10/17 20:00 97.8 95 20 104/50 91 03/10/17 19:30 T-Piece 6.00 28 03/10/17 19:30 97.8 95 20 104/51 91 I/O 03/10/17 03/10/17 03/10/17 03/11/17 03/11/17 03/11/17 07:00 15:00 23:00 07:00 15:00 23:00 Intake Total 418 ml 1070 ml 375 ml Output Total 1735 ml 850 ml 1000 ml 525 ml Balance -1317 ml -850 ml 1070 ml -625 ml -525 ml Tube Feeding 418 ml 970 ml 275 ml Other 100 ml 100 ml Output Urine Total 1735 ml 850 ml 1000 ml 525 ml # Bowel Movements 2 1 2 1 Result Diagram: 03/09/17 0831 03/11/17 1213 Objective Remarks GENERAL: MBMN WF, on Trach collar SKIN: Warm and dry. HEAD: Normocephalic. EYES: No scleral icterus. No injection or drainage. NECK: Supple, trachea midline. No JVD or lymphadenopathy. has trach CARDIOVASCULAR: Regular rate and rhythm without murmurs, gallops, or rubs. RESPIRATORY: Breath sounds equal bilaterally. No accessory muscle use. GASTROINTESTINAL: Abdomen soft, non-tender, nondistended. has PEG MUSCULOSKELETAL: No cyanosis, or edema. BACK: Nontender without obvious deformity. No CVA tenderness. A/P Assessment and Plan RF, S/P Trach CVA Arango arango disease CAD COPD SZ disorder PLAN: Aerosol nebs Cont trach collar supplement 02, keep sat >90% Trach suction prn. DW RN at BS. TF Levsin prn Stable pulm Available prn over weekend Vernon Marx MD Mar 11, 2017 17:46
[2017-03-12] VITALS (12 sets, daily range): BP systolic 95–164; BP diastolic 55–82; PULSE 81–102; RESP 18–22; TEMP 98.3–98.6; O2SAT 96–100
[2017-03-12] MEDS: CHLORHEXIDINE GLUCONATE 2 % 1 PACK (2 CLOTHS) TOP SCH (03:42)
[2017-03-12] MEDS: HYOSCYAMINE SOLN 0.125 MG/ML 15 ML BTL G-TUBE SCH ×3 (05:24→17:44)
[2017-03-12] MEDS: FREE WATER G-TUBE SCH ×3 (05:24→21:59)
[2017-03-12] MEDS: SODIUM HYPOCHLORITE 0.25% 500 ML BTL TOPICAL SCH (09:00)
[2017-03-12] MEDS: POVIDONE IODINE 10% OINT 30 GM TUBE TOPICAL SCH (09:00)
[2017-03-12] MEDS: ATORVASTATIN 40 MG TAB G-TUBE SCH (09:49)
[2017-03-12] MEDS: BROMOCRIPTINE MESYLATE 2.5 MG TAB OG-TUBE SCH ×2 (09:49→21:59)
[2017-03-12] MEDS: FERROUS SULFATE 300 MG /5ML UDC PEG SCH ×2 (09:49→21:58)
[2017-03-12] MEDS: LACTULOSE SYRUP 20 GM/30 ML CUP G-TUBE SCH ×3 (09:49→17:44)
[2017-03-12] MEDS: METOPROLOL TARTRATE 25 MG TAB G-TUBE SCH ×2 (09:49→21:59)
[2017-03-12] MEDS: METOLAZONE 5 MG TAB PEG SCH (09:49)
[2017-03-12] MEDS: SENNOSIDES SYRUP 8.8 MG/5 ML CUP G-TUBE SCH ×2 (09:49→21:59)
[2017-03-12] MEDS: FAMOTIDINE 20 MG TAB NG SCH ×2 (09:49→21:59)
[2017-03-12] MEDS: carBAMazepine SUSP 200 MG/10 ML UDC PEG SCH ×2 (09:49→21:59)
[2017-03-12] MEDS: levETIRAcetam 500 MG/5 ML UDC NG SCH ×2 (09:49→21:58)
[2017-03-12] MEDS: SACUBITRIL/VALSARTAN 24 MG-26 MG TAB PEG SCH ×2 (09:49→21:59)
[2017-03-12] MEDS: FOLIC ACID 1 MG TAB OG-TUBE SCH (09:49)
[2017-03-12] MEDS: ASCORBIC ACID 500 MG TAB PEG SCH ×2 (09:49→21:59)
[2017-03-12] MEDS: CHLORHEXIDINE 0.12% (ORAL KIT) 15 ML CUP MT SCH ×2 (09:51→21:57)
[2017-03-12] MEDS: JUVEN POWDER 1 PACK G-TUBE SCH ×2 (09:51→21:57)
[2017-03-12] MEDS: SODIUM CHLORIDE 0.9% FLUSH 10 ML FLUSH IV FLUSH SCH ×2 (09:51→21:59)
--- NOTE | 2017-03-12 12:46 | HHI.PR ---
Subjective Remarks Follow up on patient with bilateral frontal CVA, Moyamoya disease, seizure d/o, COPD, multilobar pneumonia, acute respiratory failure, anasarca, and systolic/ diastolic heart failure. Patient seen and examined. No new acute changes overnight. Afebrile. VSS. Tolerating TF. Objective Vitals Vital Signs Date Time Temp Pulse Resp B/P Pulse Ox O2 Delivery O2 Flow Rate FiO2 03/12/17 12:16 98.4 89 20 95/55 97 03/12/17 10:05 100 T-piece 6.00 03/12/17 10:05 100 T-piece 6.00 03/12/17 08:28 98.4 99 20 141/73 99 03/12/17 05:27 100 03/12/17 04:00 98.6 102 20 164/82 100 03/12/17 01:28 T-Piece 6.00 28 03/12/17 01:05 99 T-piece 6.00 03/12/17 00:00 98.4 81 20 110/77 100 03/11/17 20:00 99.1 83 18 116/70 100 03/11/17 17:08 99 T-piece 28 03/11/17 16:00 98.4 86 17 157/80 97 03/11/17 16:00 97.8 80 18 114/62 98 I/O 03/11/17 03/11/17 03/11/17 03/12/17 03/12/17 03/12/17 07:00 15:00 23:00 07:00 15:00 23:00 Intake Total 375 ml 1416 ml Output Total 1000 ml 525 ml 800 ml Balance -625 ml -525 ml 616 ml Tube Feeding 275 ml 1216 ml Other 100 ml 200 ml Output Urine Total 1000 ml 525 ml 800 ml # Bowel Movements 2 1 Result Diagram: 03/09/17 0831 03/11/17 1213 Objective Remarks GENERAL: obese female patient lying in bed in NAD, t-collar in place. bedside O2 sats 100%. SKIN: Warm and dry. Mild anasarca. HEENT: Normocephalic. Pupils equal and round. No scleral icterus. No injection or drainage. No nasal bleeding or discharge. Mucous membranes pink and moist. NECK: Supple. Trachea midline. CARDIOVASCULAR: Regular rate and rhythm. S1, S2 noted. No murmur appreciated. RESPIRATORY: No accessory muscle use. Coarse breath sounds noted. Breath sounds equal bilaterally. GASTROINTESTINAL: Abdomen soft, non-tender, nondistended. Normoactive bowel sounds x4. MUSCULOSKELETAL: No obvious deformities. Extremities without clubbing, cyanosis. NEUROLOGICAL: Does not track with eyes. Occasionally opens to vocal and noxious stimuli. No spontaneous movement in upper or lower extremities. Procedures PEG 11/24/2016 Percutaneous tracheostomy. 11/18/2016 Moderate encephalopathy with suggestion of left temporal region cortical irritability. No active seizures. Clinical correlation. Echocardiogram Severe dilated left ventricle. Wall thickness is normal. The left ventricular systolic function is moderately reduced with an estimated ejection fraction in the range of 35-40%. Doppler parameters are consistent with a restrictive left ventricular filling pattern indicative of decreased left ventricular diastolic compliance and increase left atrial pressure (grade 3 diastolic dysfunction). There is severe tricuspid regurgitation. There is severe pulmonary hypertension present ( > 70 mmHg). Severe mitral valve regurgitation. 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 She was was admitted to [facility] emergency department 11/04/16 with difficulty getting her thoughts together. She was found to have multifocal ischemic infarcts in left frontal and parietal regions, right frontal lobe and history of moyamoya disease. She was initially awake and following commands with weakness of RLE and some aphasia. She was transferred to [facility] where he had an cerebral angiogram consistent with moyamoya. There were plans to perform extracranial/ intracranial bypass. However she had a seizure and ended up being intubated for status epilepticus 11/2016 She was found to have a new right frontal infarct area and she was started on Dilantin and Keppra and it was felt that she would not be a candidate for intervention. She has been intubated 9-10 days. Treating team was discussing with family trach/PEG. Family requested transfer back to [place] because they live locally here and wanted her closer to home. Patient remained under critical care medicine until 12/24/2016. Bilateral large frontal CVA Moyamoya Disease Seizure Disorder - Continue Keppra 1,500 mg q12h - Continue Tegretol 200 mg q12h - Follow for seizure activity - Continue aspirin - Continue Bromocriptine - Tegretol level WNL. Hyperammonemia: 70 -->47 --> 40. - continue Lactulose 30 ml PO TID. Liquid stools noted. - recheck ammonia in AM Mixed Systolic and diastolic heart failure, acute - Continue Lasix and MACKENZIE inhibitor. - Monitor electrolytes and renal function. Atrial Fibrillation, acute: Controlled. - Follow daily INR. Pharmacy to manage. Watch closely. - Continue Coumadin. Hyponatremia: BMP reviewed. Na 130 --> 132. continue FWF from 100 ml q6hr to q8hr. - BMP today pending for today Hypokalemia: potassium 3.1 - add on Mag level - add potassium chloride eff 25 MEQ via PEG x 1 - recheck BMP ordered and pending Anasarca: Continue Lasix 20 mg IV TID. Zaroxolyn 5 mg PO daily. Continue to monitor. Improving slowly. Chronic Respiratory Failure Chronic obstructive pulmonary disease Multilobar pneumonia - Pulmonology following, appreciate input. - Continue tracheostomy with supplemental oxygen. - Tobramycin completed, course ended on 01/20/17. - Levsin for increased secretions. Dysphagia Hypoalbuminemia - PEG placed. Continue TF. - Jevity 1.5 through PEG tube with Corby supplementation. Tolerating well. Sacral/Coccyx wound - Continue specialty bed. - Wound care following, wound vac continued. GI Prophylaxis: Pepcid. DVT prophylaxis: SCDs. Coumadin. Discussed with nursing and Dr. Moreno Discharge Planning CM working on DC arrangements Hannah Rabago Mar 12, 2017 12:45
[2017-03-12 13:17] LABS: POTASSIUM 3.7 MEQ/L (3.5-5.1)
[2017-03-12] MEDS: WARFARIN SOD 10 MG TAB PEG SCH (16:53)
[2017-03-13] VITALS (9 sets, daily range): BP systolic 82–132; BP diastolic 52–67; PULSE 76–101; RESP 18–20; TEMP 98.1–99.2; O2SAT 98–100
[2017-03-13] MEDS: HYOSCYAMINE SOLN 0.125 MG/ML 15 ML BTL G-TUBE SCH ×4 (00:27→17:00)
[2017-03-13] MEDS: CHLORHEXIDINE GLUCONATE 2 % 1 PACK (2 CLOTHS) TOP SCH (03:26)
[2017-03-13] MEDS: FREE WATER G-TUBE SCH ×3 (05:56→21:30)
[2017-03-13] MEDS: POVIDONE IODINE 10% OINT 30 GM TUBE TOPICAL SCH (09:00)
[2017-03-13] MEDS: SODIUM HYPOCHLORITE 0.25% 500 ML BTL TOPICAL SCH (09:00)
[2017-03-13] MEDS: SENNOSIDES SYRUP 8.8 MG/5 ML CUP G-TUBE SCH ×2 (10:04→21:29)
[2017-03-13] MEDS: carBAMazepine SUSP 200 MG/10 ML UDC PEG SCH ×2 (10:04→21:29)
[2017-03-13] MEDS: FOLIC ACID 1 MG TAB OG-TUBE SCH (10:04)
[2017-03-13] MEDS: METOLAZONE 5 MG TAB PEG SCH (10:04)
[2017-03-13] MEDS: FERROUS SULFATE 300 MG /5ML UDC PEG SCH ×2 (10:04→21:29)
[2017-03-13] MEDS: METOPROLOL TARTRATE 25 MG TAB G-TUBE SCH ×2 (10:05→21:29)
[2017-03-13] MEDS: ATORVASTATIN 40 MG TAB G-TUBE SCH (10:05)
[2017-03-13] MEDS: ASCORBIC ACID 500 MG TAB PEG SCH ×2 (10:05→21:29)
[2017-03-13] MEDS: SACUBITRIL/VALSARTAN 24 MG-26 MG TAB PEG SCH ×2 (10:05→21:29)
[2017-03-13] MEDS: BROMOCRIPTINE MESYLATE 2.5 MG TAB OG-TUBE SCH ×2 (10:05→21:29)
[2017-03-13] MEDS: FAMOTIDINE 20 MG TAB NG SCH ×2 (10:05→21:29)
[2017-03-13] MEDS: SODIUM CHLORIDE 0.9% FLUSH 10 ML FLUSH IV FLUSH SCH ×2 (10:05→21:30)
[2017-03-13] MEDS: LACTULOSE SYRUP 20 GM/30 ML CUP G-TUBE SCH ×3 (10:05→17:00)
[2017-03-13] MEDS: JUVEN POWDER 1 PACK G-TUBE SCH ×2 (10:06→21:29)
[2017-03-13] MEDS: CHLORHEXIDINE 0.12% (ORAL KIT) 15 ML CUP MT SCH ×2 (10:06→21:29)
--- NOTE | 2017-03-13 11:56 | HHI.PR ---
Subjective Remarks Follow up on patient with bilateral frontal CVA, Moyamoya disease, seizure d/o, COPD, multilobar pneumonia, acute respiratory failure, anasarca, and systolic/ diastolic heart failure. Patient seen and examined. No new acute changes overnight. Afebrile. VSS. Tolerating TF. Keppra level elevated at 71 Objective Vitals Vital Signs Date Time Temp Pulse Resp B/P Pulse Ox O2 Delivery O2 Flow Rate FiO2 03/13/17 08:24 98.9 87 18 121/63 100 03/13/17 04:00 98.1 101 20 114/61 98 03/13/17 00:56 T-Piece 6.00 28 Humidified 03/13/17 00:00 98.5 92 20 110/63 99 03/12/17 23:11 84 03/12/17 22:36 100 T-piece 5.00 28 03/12/17 20:00 98.5 84 18 117/61 96 03/12/17 17:28 98.3 91 22 106/68 100 03/12/17 12:16 98.4 89 20 95/55 97 I/O 03/12/17 03/12/17 03/12/17 03/13/17 03/13/17 03/13/17 07:00 15:00 23:00 07:00 15:00 23:00 Intake Total 1416 ml 693 ml 895 ml Output Total 800 ml 700 ml 250 ml Balance 616 ml -7 ml 645 ml Tube Feeding 1216 ml 503 ml 695 ml Tube Irrigant 90 ml Other 200 ml 100 ml 200 ml Output Urine Total 800 ml 700 ml 250 ml # Bowel Movements 1 Result Diagram: 03/09/17 0831 03/12/17 1230 Objective Remarks GENERAL: obese female patient lying in bed in NAD, t-collar in place. bedside O2 sats 100%. SKIN: Warm and dry. Mild anasarca. HEENT: Normocephalic. Pupils equal and round. No scleral icterus. No injection or drainage. No nasal bleeding or discharge. Mucous membranes pink and moist. NECK: Supple. Trachea midline. CARDIOVASCULAR: Regular rate and rhythm. S1, S2 noted. No murmur appreciated. RESPIRATORY: No accessory muscle use. Coarse breath sounds noted. Breath sounds equal bilaterally. GASTROINTESTINAL: Abdomen soft, non-tender, nondistended. Normoactive bowel sounds x4. MUSCULOSKELETAL: No obvious deformities. Extremities without clubbing, cyanosis. NEUROLOGICAL: Does not track with eyes. Occasionally opens to vocal and noxious stimuli. No spontaneous movement in upper or lower extremities. Procedures PEG 11/24/2016 Percutaneous tracheostomy. 11/18/2016 Moderate encephalopathy with suggestion of left temporal region cortical irritability. No active seizures. Clinical correlation. Echocardiogram Severe dilated left ventricle. Wall thickness is normal. The left ventricular systolic function is moderately reduced with an estimated ejection fraction in the range of 35-40%. Doppler parameters are consistent with a restrictive left ventricular filling pattern indicative of decreased left ventricular diastolic compliance and increase left atrial pressure (grade 3 diastolic dysfunction). There is severe tricuspid regurgitation. There is severe pulmonary hypertension present ( > 70 mmHg). Severe mitral valve regurgitation. 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 She was was admitted to [facility] emergency department 11/04/16 with difficulty getting her thoughts together. She was found to have multifocal ischemic infarcts in left frontal and parietal regions, right frontal lobe and history of moyamoya disease. She was initially awake and following commands with weakness of RLE and some aphasia. She was transferred to [facility] where he had an cerebral angiogram consistent with moyamoya. There were plans to perform extracranial/ intracranial bypass. However she had a seizure and ended up being intubated for status epilepticus 11/2016 She was found to have a new right frontal infarct area and she was started on Dilantin and Keppra and it was felt that she would not be a candidate for intervention. She has been intubated 9-10 days. Treating team was discussing with family trach/PEG. Family requested transfer back to [place] because they live locally here and wanted her closer to home. Patient remained under critical care medicine until 12/24/2016. Bilateral large frontal CVA Moyamoya Disease Seizure Disorder - Hold Keppra 1,500 mg q12h Keppra level 71- recheck in AM - Continue Tegretol 200 mg q12h - Follow for seizure activity - Continue aspirin - Continue Bromocriptine - Tegretol level WNL. Hyperammonemia: 70 -->47 --> 40 -->39 - continue Lactulose 30 ml PO TID. Liquid stools noted. - continue to monitor ammonia Mixed Systolic and diastolic heart failure, acute - Continue Lasix and MACKENZIE inhibitor. - Monitor electrolytes and renal function. Atrial Fibrillation, acute: Controlled. - Follow daily INR. Pharmacy to manage. Watch closely. - Continue Coumadin. Hyponatremia: BMP reviewed. Na 130 --> 132 --> 129 --> 130 . - FWF from 100 ml q6hr to q8hr. - Hold metolazone x 2 days, monitor BMP closely and monitor patient closely for s/s of fluid overload - BMP in AM Hypokalemia: potassium 3.1 --> 3.7 -->3.6 - Mag level 2.5 Anasarca: Lasix 20 mg IV TID DC by Dr. Moreno on 03/10/17. - per dr. Moreno hold Zaroxolyn 5 mg PO. Continue to monitor. Chronic Respiratory Failure Chronic obstructive pulmonary disease Multilobar pneumonia - Pulmonology following, appreciate input. - Continue tracheostomy with supplemental oxygen. - Tobramycin completed, course ended on 01/20/17. - Levsin for increased secretions. Dysphagia Hypoalbuminemia - PEG placed. Continue TF. - Jevity 1.5 through PEG tube with Corby supplementation. Tolerating well. Sacral/Coccyx wound - Continue specialty bed. - Wound care following, wound vac continued. GI Prophylaxis: Pepcid. DVT prophylaxis: SCDs. Coumadin. Discussed with nursing and Dr. Moreno Discharge Planning CM working on DC arrangements Hannah Rabago Mar 13, 2017 11:56
[2017-03-13 12:43] LABS: INTERNATIONAL NORMALIZED RATIO 2.8 RATIO; PROTHROMBIN TIME - PATIENT 32.6 SEC (9.8-11.6)
[2017-03-13 13:02] LABS: BICARBONATE 34.9 MEQ/L (21.0-32.0); POTASSIUM 3.6 MEQ/L (3.5-5.1)
[2017-03-13] MEDS: WARFARIN SOD 10 MG TAB PEG SCH (16:52)
[2017-03-14] VITALS (10 sets, daily range): BP systolic 88–141; BP diastolic 46–66; PULSE 80–109; RESP 18–29; TEMP 97.4–99.1; O2SAT 98–100
[2017-03-14] MEDS: HYOSCYAMINE SOLN 0.125 MG/ML 15 ML BTL G-TUBE SCH ×4 (00:32→18:18)
[2017-03-14] MEDS: CHLORHEXIDINE GLUCONATE 2 % 1 PACK (2 CLOTHS) TOP SCH (03:06)
[2017-03-14] MEDS: FREE WATER G-TUBE SCH ×2 (06:21→13:00)
[2017-03-14] MEDS: POVIDONE IODINE 10% OINT 30 GM TUBE TOPICAL SCH (09:00)
[2017-03-14] MEDS: FERROUS SULFATE 300 MG /5ML UDC PEG SCH (09:07)
[2017-03-14] MEDS: JUVEN POWDER 1 PACK G-TUBE SCH (09:08)
[2017-03-14] MEDS: carBAMazepine SUSP 200 MG/10 ML UDC PEG SCH (09:08)
[2017-03-14] MEDS: ATORVASTATIN 40 MG TAB G-TUBE SCH (09:08)
[2017-03-14] MEDS: FAMOTIDINE 20 MG TAB NG SCH (09:08)
[2017-03-14] MEDS: BROMOCRIPTINE MESYLATE 2.5 MG TAB OG-TUBE SCH (09:08)
[2017-03-14] MEDS: CHLORHEXIDINE 0.12% (ORAL KIT) 15 ML CUP MT SCH (09:08)
[2017-03-14] MEDS: FOLIC ACID 1 MG TAB OG-TUBE SCH (09:08)
[2017-03-14] MEDS: SACUBITRIL/VALSARTAN 24 MG-26 MG TAB PEG SCH (09:08)
[2017-03-14] MEDS: SODIUM CHLORIDE 0.9% FLUSH 10 ML FLUSH IV FLUSH SCH (09:09)
[2017-03-14] MEDS: LACTULOSE SYRUP 20 GM/30 ML CUP G-TUBE SCH ×3 (09:14→18:18)
[2017-03-14] MEDS: SENNOSIDES SYRUP 8.8 MG/5 ML CUP G-TUBE SCH (09:14)
[2017-03-14] MEDS: METOPROLOL TARTRATE 25 MG TAB G-TUBE SCH (09:14)
[2017-03-14] MEDS: ASCORBIC ACID 500 MG TAB PEG SCH (09:22)
[2017-03-14] MEDS: SODIUM HYPOCHLORITE 0.25% 500 ML BTL TOPICAL SCH (09:23)
[2017-03-14 09:54] LABS: INTERNATIONAL NORMALIZED RATIO 2.6 RATIO; PROTHROMBIN TIME - PATIENT 29.9 SEC (9.8-11.6)
[2017-03-14 10:18] LABS: BICARBONATE 34.6 MEQ/L (21.0-32.0); POTASSIUM 3.6 MEQ/L (3.5-5.1)
--- NOTE | 2017-03-14 10:45 | HHI.PR ---
Subjective Remarks Follow-up visit bilateral frontal CVA, moyamoya disease, seizure disorder, COPD. Patient seen and examined today. Patient does not open her eyes until bilaterals eyes where touched and opened. Occasionally tracks but does not follow commands. Appears comfortable. Objective Vitals Vital Signs Date Time Temp Pulse Resp B/P Pulse Ox O2 Delivery O2 Flow Rate FiO2 03/14/17 08:45 98 T-piece 4.00 28 03/14/17 08:45 98 T-piece 4.00 28 03/14/17 08:00 99.1 98 29 128/66 100 03/14/17 04:41 98.9 94 20 114/65 100 03/14/17 00:41 100 Trach Collar 28 T-Piece Humidified 03/14/17 00:41 109 03/14/17 00:30 99.1 90 20 109/57 100 03/13/17 21:42 100 T-piece 5.00 28 03/13/17 21:42 100 T-piece 28 03/13/17 20:30 99.1 94 20 132/67 100 03/13/17 16:23 98.7 94 19 82/52 98 03/13/17 12:58 99.2 76 20 119/58 98 I/O 03/13/17 03/13/17 03/13/17 03/14/17 03/14/17 03/14/17 06:59 14:59 22:59 06:59 14:59 22:59 Intake Total 895 ml 826 ml 948 ml Output Total 250 ml 600 ml 975 ml Balance 645 ml 226 ml -27 ml Tube Feeding 695 ml 686 ml 748 ml Tube Irrigant 90 ml Other 200 ml 50 ml 200 ml Output Urine Total 250 ml 600 ml 900 ml Drainage Total 75 ml # Bowel Movements 1 Result Diagram: 03/14/17 0921 Imaging Last Impressions Abdomen X-Ray 02/11/17 0000 Signed Impressions: Service Date/Time: Saturday, February 11, 2017 17:52 - CONCLUSION: Minimal colonic distention. Kenneth Frost MD FACR Catheter Change 02/10/17 0000 Signed Impressions: Service Date/Time: February 13:47 - CONCLUSION: Uncomplicated fluoroscopic guided gastrostomy tube replacement. Positioning confirmed. The tube can be used immediately. Nghia Pacheco MD Lower Extremity Ultrasound 02/01/17 0000 Signed Impressions: Service Date/Time: Wednesday, February 01, 2017 13:23 - CONCLUSION: Normal examination. Gray Veronica MD Chest X-Ray 02/01/17 0000 Signed Impressions: Service Date/Time: Wednesday, February 01, 2017 08:45 - CONCLUSION: 1. Stable tracheostomy. 2. Mild interstitial prominence may reflect slight positive fluid balance. Christiano Villagran MD Brain MRI 01/06/17 0000 Signed Impressions: Service Date/Time: January 14:19 - CONCLUSION: Continued evolutionary changes of large bilateral frontal lobe infarcts. Sami Mccarthy MD Objective Remarks GENERAL: obese female patient lying in bed in NAD, t-collar in place. bedside O2 sats 100%. SKIN: Warm and dry. Mild anasarca. HEENT: Normocephalic. Pupils equal and round. No scleral icterus. No injection or drainage. No nasal bleeding or discharge. Mucous membranes pink and moist. NECK: Supple. Trachea midline. CARDIOVASCULAR: Regular rate and rhythm. S1, S2 noted. No murmur appreciated. RESPIRATORY: No accessory muscle use. Coarse breath sounds noted. Breath sounds equal bilaterally. GASTROINTESTINAL: Abdomen soft, non-tender, nondistended. Normoactive bowel sounds x4. MUSCULOSKELETAL: No obvious deformities. Extremities without clubbing, cyanosis. NEUROLOGICAL: Eyes opening, occasionally tracks. Does not follow any commands. No spontaneous movement in upper or lower extremities. Procedures PEG 11/24/2016 Percutaneous tracheostomy. 11/18/2016 Moderate encephalopathy with suggestion of left temporal region cortical irritability. No active seizures. Clinical correlation. Echocardiogram Severe dilated left ventricle. Wall thickness is normal. The left ventricular systolic function is moderately reduced with an estimated ejection fraction in the range of 35-40%. Doppler parameters are consistent with a restrictive left ventricular filling pattern indicative of decreased left ventricular diastolic compliance and increase left atrial pressure (grade 3 diastolic dysfunction). There is severe tricuspid regurgitation. There is severe pulmonary hypertension present ( > 70 mmHg). Severe mitral valve regurgitation. 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 She was was admitted to [facility] emergency department 11/04/16 with difficulty getting her thoughts together. She was found to have multifocal ischemic infarcts in left frontal and parietal regions, right frontal lobe and history of moyamoya disease. She was initially awake and following commands with weakness of RLE and some aphasia. She was transferred to [facility] where he had an cerebral angiogram consistent with moyamoya. There were plans to perform extracranial/ intracranial bypass. However she had a seizure and ended up being intubated for status epilepticus 11/2016 She was found to have a new right frontal infarct area and she was started on Dilantin and Keppra and it was felt that she would not be a candidate for intervention. She has been intubated 9-10 days. Treating team was discussing with family trach/PEG. Family requested transfer back to [place] because they live locally here and wanted her closer to home. Patient remained under critical care medicine until 12/24/2016. Bilateral large frontal CVA Moyamoya Disease Seizure Disorder - Hold Keppra 1,500 mg q12h Keppra level 71- recheck pending results, will hold until results come back - Continue Tegretol 200 mg q12h - Follow for seizure activity - Continue aspirin - Continue Bromocriptine - Tegretol level WNL. Hyperammonemia: 70 -->47 --> 40 -->39 - continue Lactulose 30 ml PO TID. Liquid stools noted. - continue to monitor ammonia Mixed Systolic and diastolic heart failure, acute - Continue Lasix and MACKENZIE inhibitor. - Monitor electrolytes and renal function. Atrial Fibrillation, acute: Controlled. - Follow daily INR. Pharmacy to manage. Watch closely. - Continue Coumadin. Hyponatremia: BMP reviewed. Na 130 --> 132 --> 129 --> 130 --> 130 - Free Water Flushes from 100 ml q6hr to q8hr. - Hold metolazone x 2 days, monitor BMP closely and monitor patient closely for s/s of fluid overload - Monitor BMP Hypokalemia: potassium 3.1 --> 3.7 -->3.6 --> 3.6 - Mag level 2.5 Anasarca: Lasix 20 mg IV TID DC by Dr. Moreno on 03/10/17. - Hold Zaroxolyn 5 mg PO. Continue to monitor. Chronic Respiratory Failure Chronic obstructive pulmonary disease Multilobar pneumonia - Pulmonology following, appreciate input. - Continue tracheostomy with supplemental oxygen. - Tobramycin completed, course ended on 01/20/17. - Levsin for increased secretions. Dysphagia Hypoalbuminemia - PEG placed. Continue TF. - Jevity 1.5 through PEG tube with Corby supplementation. Tolerating well. Sacral/Coccyx wound - Continue specialty bed. - Wound care following, wound vac continued. GI Prophylaxis: Pepcid. DVT prophylaxis: SCDs. Coumadin. Discussed with nursing and Dr. Moreno Discharge Planning Case management following. 03/10/17 now accepting facility at this time. Barrier : payer is Medicaid and pt is too expensive with PEG and trach. Possibly can be placed with one or the other but not both. Octaviano Bennett Mar 14, 2017 10:45 am
[2017-03-14] MEDS: WARFARIN SOD 10 MG TAB PEG SCH (16:47)
--- NOTE | 2017-03-14 19:05 | HHI.PR ---
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 Secretions decreased Objective Vital Signs Vital Signs Date Time Temp Pulse Resp B/P Pulse Ox O2 Delivery O2 Flow Rate FiO2 03/14/17 17:16 98 T-piece 28 03/14/17 16:00 98.6 94 26 121/61 100 03/14/17 12:26 99 Trach Collar 28 T-Piece Humidified 03/14/17 12:00 97.8 80 24 141/53 99 03/14/17 08:45 98 T-piece 4.00 28 03/14/17 08:45 98 T-piece 4.00 28 03/14/17 08:00 99.1 98 29 128/66 100 03/14/17 04:41 98.9 94 20 114/65 100 03/14/17 00:41 100 Trach Collar 28 T-Piece Humidified 03/14/17 00:41 109 03/14/17 00:30 99.1 90 20 109/57 100 03/13/17 21:42 100 T-piece 5.00 03/13/17 21:42 100 T-piece 28 03/13/17 20:30 99.1 94 20 132/67 100 I/O 03/13/17 03/13/17 03/13/17 03/14/17 03/14/17 03/14/17 07:00 15:00 23:00 07:00 15:00 23:00 Intake Total 895 ml 826 ml 948 ml 794 ml 449 ml Output Total 250 ml 600 ml 975 ml 425 ml Balance 645 ml 226 ml -27 ml 794 ml 24 ml Tube Feeding 695 ml 686 ml 748 ml 344 ml 249 ml Tube Irrigant 90 ml 200 ml 50 ml Other 200 ml 50 ml 200 ml 250 ml 150 ml Output Urine Total 250 ml 600 ml 900 ml 425 ml Drainage Total 75 ml # Bowel Movements 1 0 Result Diagram: 03/14/17920 Objective Remarks GENERAL: MBMN WF, on Trach collar SKIN: Warm and dry. HEAD: Normocephalic. EYES: No scleral icterus. No injection or drainage. NECK: Supple, trachea midline. No JVD or lymphadenopathy. has trach CARDIOVASCULAR: Regular rate and rhythm without murmurs, gallops, or rubs. RESPIRATORY: Breath sounds equal bilaterally. No accessory muscle use. GASTROINTESTINAL: Abdomen soft, non-tender, nondistended. has PEG MUSCULOSKELETAL: No cyanosis, or edema. BACK: Nontender without obvious deformity. No CVA tenderness. A/P Assessment and Plan RF, S/P Trach CVA Arango arango disease CAD COPD SZ disorder PLAN: Aerosol nebs Cont trach collar supplement 02, keep sat >90% Trach suction prn. PARTHA RN at . TF Levsin prn Stable pulm DW daughter ,who is RN, at [facility] Vernon Marx MD Mar 14, 2017 19:05
[2017-03-15] VITALS (10 sets, daily range): BP systolic 102–148; BP diastolic 58–72; PULSE 79–99; RESP 18–21; TEMP 97.1–98.9; O2SAT 98–100
[2017-03-15] MEDS: BROMOCRIPTINE MESYLATE 2.5 MG TAB OG-TUBE SCH ×3 (00:01→22:54)
[2017-03-15] MEDS: ASCORBIC ACID 500 MG TAB PEG SCH ×3 (00:01→22:53)
[2017-03-15] MEDS: FERROUS SULFATE 300 MG /5ML UDC PEG SCH ×3 (00:01→22:53)
[2017-03-15] MEDS: FAMOTIDINE 20 MG TAB NG SCH ×3 (00:01→22:53)
[2017-03-15] MEDS: carBAMazepine SUSP 200 MG/10 ML UDC PEG SCH ×3 (00:02→22:53)
[2017-03-15] MEDS: SENNOSIDES SYRUP 8.8 MG/5 ML CUP G-TUBE SCH ×3 (00:02→22:54)
[2017-03-15] MEDS: METOPROLOL TARTRATE 25 MG TAB G-TUBE SCH ×3 (00:02→22:53)
[2017-03-15] MEDS: SACUBITRIL/VALSARTAN 24 MG-26 MG TAB PEG SCH ×3 (00:03→23:21)
[2017-03-15] MEDS: HYOSCYAMINE SOLN 0.125 MG/ML 15 ML BTL G-TUBE SCH ×4 (00:04→17:29)
[2017-03-15] MEDS: JUVEN POWDER 1 PACK G-TUBE SCH ×3 (00:18→22:55)
[2017-03-15] MEDS: CHLORHEXIDINE GLUCONATE 2 % 1 PACK (2 CLOTHS) TOP SCH (04:00)
[2017-03-15] MEDS: CHLORHEXIDINE 0.12% (ORAL KIT) 15 ML CUP MT SCH (08:00)
[2017-03-15] MEDS: POVIDONE IODINE 10% OINT 30 GM TUBE TOPICAL SCH (09:00)
[2017-03-15] MEDS: SODIUM HYPOCHLORITE 0.25% 500 ML BTL TOPICAL SCH (09:00)
[2017-03-15 09:04] LABS: INTERNATIONAL NORMALIZED RATIO 2.6 RATIO; PROTHROMBIN TIME - PATIENT 29.8 SEC (9.8-11.6)
[2017-03-15] MEDS: LACTULOSE SYRUP 20 GM/30 ML CUP G-TUBE SCH ×3 (09:06→17:22)
[2017-03-15] MEDS: FOLIC ACID 1 MG TAB OG-TUBE SCH (09:06)
[2017-03-15] MEDS: ATORVASTATIN 40 MG TAB G-TUBE SCH (09:07)
[2017-03-15] MEDS: SODIUM CHLORIDE 0.9% FLUSH 10 ML FLUSH IV FLUSH SCH ×2 (09:11→22:55)
--- NOTE | 2017-03-15 09:18 | HHI.PR ---
Subjective Remarks Follow-up visit bilateral frontal CVA, moyamoya disease, seizure disorder, COPD , hyponatremia. Patient seen and examined today. Patient is awake and alert. Occasional tracking noted. Does not follow any commands. Appears comfortable. As per nursing, no acute issues overnight. Objective Vitals Vital Signs Date Time Temp Pulse Resp B/P Pulse Ox O2 Delivery O2 Flow Rate FiO2 03/15/17 04:00 98.0 79 18 136/71 99 03/15/17 00:00 98.0 93 18 148/72 98 03/14/17 21:00 90 03/14/17 20:00 97.4 94 18 89/51 100 88/46 03/14/17 17:16 98 T-piece 28 03/14/17 16:00 98.6 94 26 121/61 100 03/14/17 12:26 99 Trach Collar 28 T-Piece Humidified 03/14/17 12:00 97.8 80 24 141/53 99 I/O 03/14/17 03/14/17 03/14/17 03/15/17 03/15/17 03/15/17 07:00 15:00 23:00 07:00 15:00 23:00 Intake Total 948 ml 794 ml 449 ml 250 ml Output Total 975 ml 425 ml 950 ml Balance -27 ml 794 ml 24 ml -950 ml 250 ml Tube Feeding 748 ml 344 ml 249 ml Tube Irrigant 200 ml 50 ml 50 ml Other 200 ml 250 ml 150 ml 200 ml Output Urine Total 900 ml 425 ml 950 ml Drainage Total 75 ml # Bowel Movements 1 0 2 Result Diagram: 03/14/17 0921 Imaging Last Impressions Abdomen X-Ray 02/11/17 0000 Signed Impressions: Service Date/Time: Saturday, February 11, 2017 17:52 - CONCLUSION: Minimal colonic distention. Kenneth Frost MD FACR Catheter Change 02/10/17 0000 Signed Impressions: Service Date/Time: February 13:47 - CONCLUSION: Uncomplicated fluoroscopic guided gastrostomy tube replacement. Positioning confirmed. The tube can be used immediately. Nghia Pacheco MD Lower Extremity Ultrasound 02/01/17 0000 Signed Impressions: Service Date/Time: Wednesday, February 01, 2017 13:23 - CONCLUSION: Normal examination. Gray Veronica MD Chest X-Ray 02/01/17 0000 Signed Impressions: Service Date/Time: Wednesday, February 01, 2017 08:45 - CONCLUSION: 1. Stable tracheostomy. 2. Mild interstitial prominence may reflect slight positive fluid balance. Christiano Villagran MD Brain MRI 01/06/17 0000 Signed Impressions: Service Date/Time: January 14:19 - CONCLUSION: Continued evolutionary changes of large bilateral frontal lobe infarcts. Sami Mccarthy MD Objective Remarks GENERAL: obese female patient lying in bed in NAD, t-collar in place. bedside O2 sats 100%. SKIN: Warm and dry. Anasarca. HEENT: Normocephalic. Pupils equal and round. No scleral icterus. No injection or drainage. No nasal bleeding or discharge. Mucous membranes pink and moist. NECK: Supple. Trachea midline. CARDIOVASCULAR: Regular rate and rhythm. S1, S2 noted. No murmur appreciated. RESPIRATORY: No accessory muscle use. Coarse breath sounds noted. Fine crackles at the bases. GASTROINTESTINAL: Abdomen soft, non-tender, nondistended. Normoactive bowel sounds x4. MUSCULOSKELETAL: No obvious deformities. Extremities without clubbing, cyanosis. Edematous extremities +3. NEUROLOGICAL: Eyes opening, occasionally tracks. Does not follow any commands. No spontaneous movement in upper or lower extremities. Procedures PEG 11/24/2016 Percutaneous tracheostomy. 11/18/2016 Moderate encephalopathy with suggestion of left temporal region cortical irritability. No active seizures. Clinical correlation. Echocardiogram Severe dilated left ventricle. Wall thickness is normal. The left ventricular systolic function is moderately reduced with an estimated ejection fraction in the range of 35-40%. Doppler parameters are consistent with a restrictive left ventricular filling pattern indicative of decreased left ventricular diastolic compliance and increase left atrial pressure (grade 3 diastolic dysfunction). There is severe tricuspid regurgitation. There is severe pulmonary hypertension present ( > 70 mmHg). Severe mitral valve regurgitation. 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 She was was admitted to [facility] emergency department 11/04/16 with difficulty getting her thoughts together. She was found to have multifocal ischemic infarcts in left frontal and parietal regions, right frontal lobe and history of moyamoya disease. She was initially awake and following commands with weakness of RLE and some aphasia. She was transferred to [facility] where he had an cerebral angiogram consistent with moyamoya. There were plans to perform extracranial/ intracranial bypass. However she had a seizure and ended up being intubated for status epilepticus 11/2016 She was found to have a new right frontal infarct area and she was started on Dilantin and Keppra and it was felt that she would not be a candidate for intervention. She has been intubated 9-10 days. Treating team was discussing with family trach/PEG. Family requested transfer back to [place] because they live locally here and wanted her closer to home. Patient remained under critical care medicine until 12/24/2016. Bilateral large frontal CVA Moyamoya Disease Seizure Disorder - Hold Keppra 1,500 mg q12h Keppra level 71- recheck pending results, will hold until results come back - Continue Tegretol 200 mg q12h - Follow for seizure activity - Continue aspirin - Continue Bromocriptine - Tegretol level WNL. Hyperammonemia: 70 -->47 --> 40 -->39 - continue Lactulose 30 ml PO TID. Liquid stools noted. - continue to monitor ammonia Mixed Systolic and diastolic heart failure, acute - Continue Lasix and MACKENZIE inhibitor. - Monitor electrolytes and renal function. Atrial Fibrillation, acute: Controlled. - Follow daily INR. Pharmacy to manage. Watch closely. - Continue Coumadin. Hyponatremia: BMP reviewed. Na 130 --> 132 --> 129 --> 130 --> 130 - Free Water Flushes from 100 ml q6hr to q8hr. - Hold metolazone x 2 days, monitor BMP closely and monitor patient closely for s/s of fluid overload - Monitor BMP Hypokalemia: potassium 3.1 --> 3.7 -->3.6 --> 3.6 --> 3.4 - Mag level 2.5 - Potassium replacement - Monitor BMP Anasarca: Lasix 20 mg IV TID DC by Dr. Moreno on 03/10/17. - Hold Zaroxolyn 5 mg PO. Continue to monitor. - Lasix 40mg x1 dose now, KCL Chronic Respiratory Failure Chronic obstructive pulmonary disease Multilobar pneumonia - Pulmonology following, appreciate input. - Continue tracheostomy with supplemental oxygen. - Tobramycin completed, course ended on 01/20/17. - Levsin for increased secretions. - Lasix 1 dose Dysphagia Hypoalbuminemia - PEG placed. Continue TF. - Jevity 1.5 through PEG tube with Corby supplementation. Tolerating well. Sacral/Coccyx wound - Continue specialty bed. - Wound care following, wound vac continued. GI Prophylaxis: Pepcid. DVT prophylaxis: SCDs. Coumadin. Discussed with nursing and Dr. Moreno Discharge Planning Case management following. 03/10/17 no accepting facility at this time. Barrier: payer is Medicaid and pt is too expensive with PEG and trach. Possibly can be placed with one or the other but not both. Octaviano Bennett Mar 15, 2017 09:18
[2017-03-15 09:33] LABS: BICARBONATE 33.5 MEQ/L (21.0-32.0); POTASSIUM 3.4 MEQ/L (3.5-5.1)
[2017-03-15] MEDS ORDERED: FUROSEMIDE 40 MG/4 ML VIAL IV PUSH ONE (10:30)
[2017-03-15] MEDS ORDERED: POTASSIUM CHLORIDE 20 MEQ PWD PACKET PO ONE ×2 (10:30→14:00)
[2017-03-15 13:53] LABS: BICARBONATE 33.4 MEQ/L (21.0-32.0); POTASSIUM 3.6 MEQ/L (3.5-5.1)
[2017-03-15 13:55] LABS: INDIRECT BILIRUBIN 0.2 MG/DL (0.0-0.8); TOTAL BILIRUBIN ADULT 0.5 MG/DL (0.2-1.0)
[2017-03-15] MEDS: FREE WATER G-TUBE SCH ×2 (14:45→22:55)
--- NOTE | 2017-03-15 14:54 | PD.WCN.NOT ---
Neg Pressure Wound Therapy Wound Location Wound Location: Sacrum Wound Description Length: 4.4 Width: 3.3cm Depth: 3cm Undermining: Circumferential o'clock with deepest noted @ 12o'clock of 3.8cm Wound bed appearance: ~80% vascular red non granulating tissue and ~20% bone palpated Periwound appearance: Other (Periwound presents with partial thickness skin loss between 4 and 7'clock) Settings Suction: 125 mmHg, Continuous Intensity: Low Other Information: Bridged Foam type: Black Number of pieces: 1 Additonal Information Patient seen on 5 North for wound VAC dressing change to sacrum with Aminata POWELL 5 north at bedside for assistance in repositioning and support of patient. Patient was suctioned via inline suction prior to performing dressing change due to coughing and secretions present. Wound VAC machine was observed and appeared to be working properly without leaks noted. Patient tube feed placed on hold. Patient was positioned to her R side with maximum assistance.Canister noted with ~250ml dark red to brown drainage.Turned VAC suction off.Removed current VAC dressing in place, foul odor present with dressing removal. Black granufoam was removed and the wound was cleansed with 0.25% Dakins solution as ordered between dressing changes.There is minimal sanguinous and dark brown drainage noted to removed gauze used to cleanse wound. Periwound was sprayed with Cavilon skin prep prior to protect skin from foam with drape being placed over intact skin from periwound up to L lateral upper thigh where trac pad was placed and secured. Black granufoam was cut in a cinnamon roll fashion and inserted into wound using a coiling method and then secured with VAC drape. 1 piece of granufoam was used in all. Stoma paste was applied to periwound to obtain and maintain seal once wound VAC was turned on with settings described above. No leaks noted, seal obtained. Patient had 2 small soft BM with a montemayor/ green color, after cleansing patient, a new ultrasorb was obtained and placed underneath patients bottom. Patient was positioned to her right side and elevated head >30 degrees so that tube feed could be resumed. [facility] Mar 15, 2017 14:54
[2017-03-15] MEDS: WARFARIN SOD 10 MG TAB PEG SCH (17:22)
--- NOTE | 2017-03-15 19:17 | HHI.PR ---
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 Mod amount of trach secretions Objective Vital Signs Vital Signs Date Time Temp Pulse Resp B/P Pulse Ox O2 Delivery O2 Flow Rate FiO2 03/15/17 17:53 100 T-piece 6.00 28 03/15/17 16:50 98.6 97 18 122/71 100 03/15/17 13:04 100 T-piece 5.00 28 03/15/17 13:02 100 T-piece 5.00 28 03/15/17 12:00 98.9 95 18 102/59 100 03/15/17 09:03 100 T-Piece 03/15/17 08:00 98.7 97 18 121/58 100 03/15/17 04:00 98.0 79 18 136/71 99 03/15/17 00:00 98.0 93 18 148/72 98 03/14/17 22:00 98 T-Piece 03/14/17 21:00 90 03/14/17 20:00 97.4 94 18 89/51 100 88/46 I/O 03/14/17 03/14/17 03/14/17 03/15/17 03/15/17 03/15/17 07:00 15:00 23:00 07:00 15:00 23:00 Intake Total 948 ml 794 ml 449 ml 1290 ml Output Total 975 ml 425 ml 950 ml 1400 ml Balance -27 ml 794 ml 24 ml -950 ml 1290 ml -1400 ml Tube Feeding 748 ml 344 ml 249 ml 840 ml Tube Irrigant 200 ml 50 ml 100 ml Other 200 ml 250 ml 150 ml 350 ml Output Urine Total 900 ml 425 ml 950 ml 1400 ml Drainage Total 75 ml # Bowel Movements 1 0 2 2 Result Diagram: 03/15/17 1330 Objective Remarks GENERAL: MBMN WF, on Trach collar SKIN: Warm and dry. HEAD: Normocephalic. EYES: No scleral icterus. No injection or drainage. NECK: Supple, trachea midline. No JVD or lymphadenopathy. has trach CARDIOVASCULAR: Regular rate and rhythm without murmurs, gallops, or rubs. RESPIRATORY: Breath sounds equal bilaterally. No accessory muscle use. GASTROINTESTINAL: Abdomen soft, non-tender, nondistended. has PEG MUSCULOSKELETAL: No cyanosis, or edema. BACK: Nontender without obvious deformity. No CVA tenderness. A/P Assessment and Plan RF, S/P Trach CVA Arango arango disease CAD COPD SZ disorder PLAN: Aerosol nebs Cont trach collar supplement 02, keep sat >90% Trach suction prn. DW RN at BS. TF Levsin prn Stable pulVernon Cui MD Mar 15, 2017 19:17
[2017-03-15] MEDS: levETIRAcetam 500 MG TAB PO SCH (22:54)
[2017-03-16] VITALS (10 sets, daily range): BP systolic 104–124; BP diastolic 56–70; PULSE 83–104; RESP 19–24; TEMP 97.1–98.9; O2SAT 98–100
[2017-03-16] MEDS: HYOSCYAMINE SOLN 0.125 MG/ML 15 ML BTL G-TUBE SCH ×4 (00:45→16:54)
[2017-03-16] MEDS: CHLORHEXIDINE GLUCONATE 2 % 1 PACK (2 CLOTHS) TOP SCH (04:00)
[2017-03-16] MEDS: CHLORHEXIDINE 0.12% (ORAL KIT) 15 ML CUP MT SCH ×2 (08:00→20:00)
[2017-03-16] MEDS: BROMOCRIPTINE MESYLATE 2.5 MG TAB OG-TUBE SCH (08:50)
[2017-03-16] MEDS: SENNOSIDES SYRUP 8.8 MG/5 ML CUP G-TUBE SCH (08:50)
[2017-03-16] MEDS: FERROUS SULFATE 300 MG /5ML UDC PEG SCH (08:50)
[2017-03-16] MEDS: carBAMazepine SUSP 200 MG/10 ML UDC PEG SCH (08:50)
[2017-03-16] MEDS: LACTULOSE SYRUP 20 GM/30 ML CUP G-TUBE SCH ×3 (08:50→16:53)
[2017-03-16] MEDS: FAMOTIDINE 20 MG TAB NG SCH (08:51)
[2017-03-16] MEDS: ATORVASTATIN 40 MG TAB G-TUBE SCH (08:51)
[2017-03-16] MEDS: SACUBITRIL/VALSARTAN 24 MG-26 MG TAB PEG SCH (08:51)
[2017-03-16] MEDS: levETIRAcetam 500 MG TAB PO SCH (08:51)
[2017-03-16] MEDS: ASCORBIC ACID 500 MG TAB PEG SCH (08:51)
[2017-03-16] MEDS: FOLIC ACID 1 MG TAB OG-TUBE SCH (08:51)
[2017-03-16] MEDS: METOPROLOL TARTRATE 25 MG TAB G-TUBE SCH (08:51)
[2017-03-16] MEDS: SODIUM CHLORIDE 0.9% FLUSH 10 ML FLUSH IV FLUSH SCH ×2 (08:51→21:00)
[2017-03-16] MEDS: FREE WATER G-TUBE SCH ×3 (08:52→22:00)
[2017-03-16] MEDS: JUVEN POWDER 1 PACK G-TUBE SCH ×2 (08:52→21:00)
[2017-03-16] MEDS: POVIDONE IODINE 10% OINT 30 GM TUBE TOPICAL SCH (08:53)
[2017-03-16] MEDS: SODIUM HYPOCHLORITE 0.25% 500 ML BTL TOPICAL SCH (08:53)
[2017-03-16 10:52] LABS: INTERNATIONAL NORMALIZED RATIO 2.5 RATIO; PROTHROMBIN TIME - PATIENT 28.8 SEC (9.8-11.6)
[2017-03-16 11:09] LABS: BICARBONATE 33.3 MEQ/L (21.0-32.0); POTASSIUM 4.2 MEQ/L (3.5-5.1)
--- NOTE | 2017-03-16 11:15 | HHI.PR ---
Subjective Remarks Follow-up visit bilateral frontal CVA, moyamoya disease, seizure disorder, COPD , hyponatremia. Patient seen and examined today. Eyes closed, laying in bed, nonverbal. Does not follow any commands grimaces to painful stimuli. Appears comfortable. As per nursing no acute issues overnight. Continues to be on trach collar, to PEG for tube feeds. Objective Vitals Vital Signs Date Time Temp Pulse Resp B/P Pulse Ox O2 Delivery O2 Flow Rate FiO2 03/16/17 08:00 98.7 104 21 124/60 99 03/16/17 05:50 98.9 88 22 120/70 100 03/16/17 05:35 103 03/16/17 01:11 98 T-piece 6.00 28 03/16/17 00:30 98.8 89 22 115/65 100 03/15/17 22:00 96 03/15/17 21:50 97.1 99 21 110/64 100 03/15/17 19:00 100 T-Piece 03/15/17 17:53 100 T-piece 6.00 28 03/15/17 16:50 98.6 97 18 122/71 100 03/15/17 13:04 100 T-piece 5.00 28 03/15/17 13:02 100 T-piece 5.00 28 03/15/17 12:00 98.9 95 18 102/59 100 I/O 03/15/17 03/15/17 03/15/17 03/16/17 03/16/17 03/16/17 07:00 15:00 23:00 07:00 15:00 23:00 Intake Total 1290 ml 0 ml 0 ml Output Total 950 ml 1700 ml 500 ml Balance -950 ml 1290 ml -1700 ml -500 ml Intake Oral 0 ml 0 ml Tube Feeding 840 ml Tube Irrigant 100 ml Other 350 ml Output Urine Total 950 ml 1700 ml 500 ml # Bowel Movements 2 2 0 2 1 Result Diagram: 03/16/17 1006 Imaging Last Impressions Abdomen X-Ray 02/11/17 0000 Signed Impressions: Service Date/Time: Saturday, February 11, 2017 17:52 - CONCLUSION: Minimal colonic distention. Kenneth Frost MD FACR Catheter Change 02/10/17 0000 Signed Impressions: Service Date/Time: February 13:47 - CONCLUSION: Uncomplicated fluoroscopic guided gastrostomy tube replacement. Positioning confirmed. The tube can be used immediately. Nghia Pacheco MD Lower Extremity Ultrasound 02/01/17 0000 Signed Impressions: Service Date/Time: Wednesday, February 01, 2017 13:23 - CONCLUSION: Normal examination. Gray Veronica MD Chest X-Ray 02/01/17 0000 Signed Impressions: Service Date/Time: Wednesday, February 01, 2017 08:45 - CONCLUSION: 1. Stable tracheostomy. 2. Mild interstitial prominence may reflect slight positive fluid balance. Christiano Villagran MD Brain MRI 01/06/17 0000 Signed Impressions: Service Date/Time: January 14:19 - CONCLUSION: Continued evolutionary changes of large bilateral frontal lobe infarcts. Sami Mccarthy MD Objective Remarks GENERAL: Obese female patient lying in bed in NAD, t-collar in place. bedside O2 sats 100%. SKIN: Warm and dry. Anasarca. HEENT: Normocephalic. No scleral icterus. No injection or drainage. No nasal bleeding or discharge. Mucous membranes pink and moist. NECK: Supple. Trachea midline. CARDIOVASCULAR: Regular rate and rhythm. S1, S2 noted. No murmur appreciated. RESPIRATORY: No accessory muscle use. Coarse breath sounds noted. Fine crackles at the bases. GASTROINTESTINAL: Abdomen soft, non-tender, nondistended. Normoactive bowel sounds x4. PEG in place. MUSCULOSKELETAL: No obvious deformities. Extremities without clubbing, cyanosis. Edematous extremities +2. NEUROLOGICAL: Eyes closed. Does not follow any commands. No spontaneous movement in upper or lower extremities. Procedures PEG 11/24/2016 Percutaneous tracheostomy. 11/18/2016 Moderate encephalopathy with suggestion of left temporal region cortical irritability. No active seizures. Clinical correlation. Echocardiogram Severe dilated left ventricle. Wall thickness is normal. The left ventricular systolic function is moderately reduced with an estimated ejection fraction in the range of 35-40%. Doppler parameters are consistent with a restrictive left ventricular filling pattern indicative of decreased left ventricular diastolic compliance and increase left atrial pressure (grade 3 diastolic dysfunction). There is severe tricuspid regurgitation. There is severe pulmonary hypertension present ( > 70 mmHg). Severe mitral valve regurgitation. 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 She was was admitted to [facility] emergency department 11/04/16 with difficulty getting her thoughts together. She was found to have multifocal ischemic infarcts in left frontal and parietal regions, right frontal lobe and history of moyamoya disease. She was initially awake and following commands with weakness of RLE and some aphasia. She was transferred to [facility] where he had an cerebral angiogram consistent with moyamoya. There were plans to perform extracranial/ intracranial bypass. However she had a seizure and ended up being intubated for status epilepticus 11/2016 She was found to have a new right frontal infarct area and she was started on Dilantin and Keppra and it was felt that she would not be a candidate for intervention. She has been intubated 9-10 days. Treating team was discussing with family trach/PEG. Family requested transfer back to [place] because they live locally here and wanted her closer to home. Patient remained under critical care medicine until 12/24/2016. Bilateral large frontal CVA Moyamoya Disease Seizure Disorder - Continue Tegretol 200 mg q12h - Follow for seizure activity - Continue aspirin - Continue Bromocriptine - Tegretol level WNL. - The level 10.2. Resume Keppra at lower dose 1000 mg twice a day. Hyperammonemia: 70 -->47 --> 40 -->39 - continue Lactulose 30 ml PO TID. Liquid stools noted. - continue to monitor ammonia Mixed Systolic and diastolic heart failure, acute - Continue Lasix 20mg daily - On Entresto - Monitor electrolytes and renal function. Atrial Fibrillation, acute: Controlled. - Follow daily INR. Pharmacy to manage. Watch closely. - Continue Coumadin. Hyponatremia: BMP reviewed. Na 130 --> 132 --> 129 --> 130 --> 130 --> 131 - Free Water Flushes from 100 ml q6hr to q8hr. - Hold metolazone, monitor BMP closely and monitor patient closely for s/s of fluid overload - Monitor BMP - LAsix daily Hypokalemia: potassium --> 3.4 --> 3.6 -->4.2 - Mag level 2.5 - Potassium replacement - Monitor BMP Anasarca: Lasix 20 mg IV TID DC by Dr. Moreno on 03/10/17. - Hold Zaroxolyn 5 mg PO. Continue to monitor. - Lasix daily Chronic Respiratory Failure Chronic obstructive pulmonary disease Multilobar pneumonia - Pulmonology following, appreciate input. - Continue tracheostomy with supplemental oxygen. - Tobramycin completed, course ended on 01/20/17. - Levsin for increased secretions - Wean off O2, possible capping and decannulation Dysphagia Hypoalbuminemia - PEG placed. Continue TF. - Jevity 1.5 through PEG tube with Corby supplementation. Tolerating well. Sacral/Coccyx wound - Continue specialty bed. - Wound care following, wound vac continued. GI Prophylaxis: Pepcid. DVT prophylaxis: SCDs. Coumadin. Discussed with nursing and Dr. Obrien Discharge Planning Case management following. 03/14/17 no accepting facility at this time. Barrier: payer is Medicaid and pt is too expensive with PEG and trach. Possibly can be placed with one or the other but not both. Octaviano Bennett Mar 16, 2017 11:15
[2017-03-16] MEDS: FUROSEMIDE 20 MG/2 ML VIAL IV PUSH SCH (11:45)
[2017-03-16] MEDS: WARFARIN SOD 10 MG TAB PEG SCH (16:53)
--- NOTE | 2017-03-16 17:44 | HHI.PR ---
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 Mod amount of trach secretions No new complaint reported Objective Vital Signs Vital Signs Date Time Temp Pulse Resp B/P Pulse Ox O2 Delivery O2 Flow Rate FiO2 03/16/17 16:00 97.1 86 19 116/61 100 03/16/17 12:00 97.4 88 21 104/56 100 03/16/17 12:00 97.7 92 19 112/61 98 03/16/17 09:00 100 Trach Collar 5.00 28 T-Piece 03/16/17 08:00 98.7 104 21 124/60 99 03/16/17 05:50 98.9 88 22 120/70 100 03/16/17 05:35 103 03/16/17 01:11 98 T-piece 6.00 28 03/16/17 00:30 98.8 89 22 115/65 100 03/15/17 22:00 96 03/15/17 21:50 97.1 99 21 110/64 100 03/15/17 19:00 100 T-Piece 03/15/17 17:53 100 T-piece 6.00 28 I/O 03/15/17 03/15/17 03/15/17 03/16/17 03/16/17 03/16/17 06:59 14:59 22:59 06:59 14:59 22:59 Intake Total 1290 ml 0 ml 0 ml 462 ml Output Total 950 ml 1700 ml 500 ml 25 ml Balance -950 ml 1290 ml -1700 ml -500 ml 437 ml Intake Oral 0 ml 0 ml Tube Feeding 840 ml 362 ml Tube Irrigant 100 ml Other 350 ml 100 ml Output Urine Total 950 ml 1700 ml 500 ml Drainage Total 25 ml # Bowel Movements 2 2 0 2 1 Result Diagram: 03/16/17 1006 Objective Remarks GENERAL: MBMN WF, on Trach collar SKIN: Warm and dry. HEAD: Normocephalic. EYES: No scleral icterus. No injection or drainage. NECK: Supple, trachea midline. No JVD or lymphadenopathy. has trach CARDIOVASCULAR: Regular rate and rhythm without murmurs, gallops, or rubs. RESPIRATORY: Breath sounds equal bilaterally. No accessory muscle use. GASTROINTESTINAL: Abdomen soft, non-tender, nondistended. has PEG MUSCULOSKELETAL: No cyanosis, or edema. BACK: Nontender without obvious deformity. No CVA tenderness. A/P Assessment and Plan RF, S/P Trach CVA Arango arango disease CAD COPD SZ disorder PLAN: Aerosol nebs Cont trach collar supplement 02, keep sat >90% Trach suction prn. PARTHA RN at BS. TF Isabella prn Vernon Marx MD Mar 16, 2017 17:44
[2017-03-16 22:20] LABS: HEMOGLOBIN A1a 1.4 %; HEMOGLOBIN A1b 2.5 %; HEMOGLOBIN Ao 80.1 %; HEMOGLOBIN LA1C 2.4 %; HEMOGLOBIN P3 7.5 %
[2017-03-17] VITALS (9 sets, daily range): BP systolic 114–125; BP diastolic 57–70; PULSE 88–112; RESP 18–23; TEMP 97.3–98.8; O2SAT 99–100
[2017-03-17] MEDS: FAMOTIDINE 20 MG TAB NG SCH ×3 (00:03→22:15)
[2017-03-17] MEDS: SENNOSIDES SYRUP 8.8 MG/5 ML CUP G-TUBE SCH ×3 (00:03→22:15)
[2017-03-17] MEDS: carBAMazepine SUSP 200 MG/10 ML UDC PEG SCH ×3 (00:03→22:15)
[2017-03-17] MEDS: FERROUS SULFATE 300 MG /5ML UDC PEG SCH ×3 (00:04→22:15)
[2017-03-17] MEDS: levETIRAcetam 500 MG TAB PO SCH ×3 (00:04→22:15)
[2017-03-17] MEDS: ASCORBIC ACID 500 MG TAB PEG SCH ×3 (00:04→22:15)
[2017-03-17] MEDS: BROMOCRIPTINE MESYLATE 2.5 MG TAB OG-TUBE SCH ×3 (00:04→22:15)
[2017-03-17] MEDS: SACUBITRIL/VALSARTAN 24 MG-26 MG TAB PEG SCH ×3 (00:04→22:15)
[2017-03-17] MEDS: METOPROLOL TARTRATE 25 MG TAB G-TUBE SCH ×3 (00:04→22:15)
[2017-03-17] MEDS: HYOSCYAMINE SOLN 0.125 MG/ML 15 ML BTL G-TUBE SCH ×5 (00:22→22:15)
[2017-03-17] MEDS: CHLORHEXIDINE GLUCONATE 2 % 1 PACK (2 CLOTHS) TOP SCH (04:00)
[2017-03-17] MEDS: FREE WATER G-TUBE SCH ×3 (06:00→22:15)
[2017-03-17] MEDS ORDERED: DEXTROSE 50% IN WATER 50 ML VIAL(D50) IV PRN (07:45)
[2017-03-17] MEDS ORDERED: GLUCAGON 1 MG/ML VIAL OTHER PRN (07:45)
[2017-03-17] MEDS: CHLORHEXIDINE 0.12% (ORAL KIT) 15 ML CUP MT SCH ×2 (08:00→22:15)
[2017-03-17] MEDS: JUVEN POWDER 1 PACK G-TUBE SCH ×2 (09:00→22:15)
[2017-03-17] MEDS: POTASSIUM CHLORIDE 20 MEQ PWD PACKET NG SCH (09:00)
[2017-03-17] MEDS: SODIUM HYPOCHLORITE 0.25% 500 ML BTL TOPICAL SCH (09:00)
[2017-03-17] MEDS: POVIDONE IODINE 10% OINT 30 GM TUBE TOPICAL SCH (09:00)
[2017-03-17] MEDS: FOLIC ACID 1 MG TAB OG-TUBE SCH (09:17)
[2017-03-17] MEDS: LACTULOSE SYRUP 20 GM/30 ML CUP G-TUBE SCH ×3 (09:17→17:04)
[2017-03-17] MEDS: ATORVASTATIN 40 MG TAB G-TUBE SCH (09:17)
[2017-03-17] MEDS: FUROSEMIDE 20 MG/2 ML VIAL IV PUSH SCH (09:18)
[2017-03-17] MEDS: SODIUM CHLORIDE 0.9% FLUSH 10 ML FLUSH IV FLUSH SCH ×2 (09:18→22:15)
[2017-03-17] MEDS: INSULIN ASPART SUPPLEMENTAL SCALE SQ SCH ×3 (10:34→21:00)
--- NOTE | 2017-03-17 11:40 | HHI.PR ---
Subjective Remarks Follow-up visit bilateral frontal CVA, moyamoya disease, seizure disorder, COPD , hyponatremia. Patient seen and examined today. Eyes opening. Occasionally tracks but does not follow any commands. Laying in bed, nonverbal. Tracheostomy in place, trach collar she is, PEG in place. Appears comfortable. Objective Vitals Vital Signs Date Time Temp Pulse Resp B/P Pulse Ox O2 Delivery O2 Flow Rate FiO2 03/17/17 10:09 94 03/17/17 09:36 100 T-Piece 5.00 28 03/17/17 08:00 98.3 112 18 125/64 99 03/17/17 06:00 98.8 100 20 115/70 100 03/17/17 00:30 98.4 88 23 118/65 100 03/16/17 22:17 100 T-Piece 28 03/16/17 21:30 100 T-piece 6.00 25 03/16/17 21:00 97.4 100 24 120/63 100 03/16/17 20:30 83 03/16/17 16:00 97.1 86 19 116/61 100 03/16/17 12:00 97.4 88 21 104/56 100 03/16/17 12:00 97.7 92 19 112/61 98 I/O 03/16/17 03/16/17 03/16/17 03/17/17 03/17/17 03/17/17 07:00 15:00 23:00 07:00 15:00 23:00 Intake Total 0 ml 462 ml 713 ml Output Total 500 ml 1975 ml 600 ml Balance -500 ml -1513 ml 113 ml Intake Oral 0 ml 0 ml 0 ml Tube Feeding 362 ml 713 ml Other 100 ml Output Urine Total 500 ml 1950 ml 600 ml Drainage Total 25 ml # Bowel Movements 2 1 2 1 Result Diagram: 03/16/17 1006 Objective Remarks GENERAL: Obese female patient lying in bed in NAD, t-collar in place. SKIN: Warm and dry. HEENT: Normocephalic. No scleral icterus. No injection or drainage. No nasal bleeding or discharge. Mucous membranes pink and moist. NECK: Supple. Tracheostomy in place. CARDIOVASCULAR: Regular rate and rhythm. S1, S2 noted. No murmur appreciated. RESPIRATORY: No accessory muscle use. Coarse breath sounds noted. No wheezing. GASTROINTESTINAL: Abdomen soft, non-tender, nondistended. Normoactive bowel sounds x4. PEG in place. MUSCULOSKELETAL: No obvious deformities. Extremities without clubbing, cyanosis. Edematous extremities +1. Hemovac left sacral and thigh area draining serous sanguinous drain. NEUROLOGICAL: Awake and alert. Occasionally tracking. Does not follow any commands. No spontaneous movement in upper or lower extremities. Procedures PEG 11/24/2016 Percutaneous tracheostomy. 11/18/2016 Moderate encephalopathy with suggestion of left temporal region cortical irritability. No active seizures. Clinical correlation. Echocardiogram Severe dilated left ventricle. Wall thickness is normal. The left ventricular systolic function is moderately reduced with an estimated ejection fraction in the range of 35-40%. Doppler parameters are consistent with a restrictive left ventricular filling pattern indicative of decreased left ventricular diastolic compliance and increase left atrial pressure (grade 3 diastolic dysfunction). There is severe tricuspid regurgitation. There is severe pulmonary hypertension present ( > 70 mmHg). Severe mitral valve regurgitation. 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 She was was admitted to [facility] emergency department 11/04/16 with difficulty getting her thoughts together. She was found to have multifocal ischemic infarcts in left frontal and parietal regions, right frontal lobe and history of moyamoya disease. She was initially awake and following commands with weakness of RLE and some aphasia. She was transferred to [facility] where he had an cerebral angiogram consistent with moyamoya. There were plans to perform extracranial/ intracranial bypass. However she had a seizure and ended up being intubated for status epilepticus 11/2016 She was found to have a new right frontal infarct area and she was started on Dilantin and Keppra and it was felt that she would not be a candidate for intervention. She has been intubated 9-10 days. Treating team was discussing with family trach/PEG. Family requested transfer back to [place] because they live locally here and wanted her closer to home. Patient remained under critical care medicine until 12/24/2016. Bilateral large frontal CVA Moyamoya Disease Seizure Disorder - Continue Tegretol 200 mg q12h - Follow for seizure activity - Continue aspirin - Continue Bromocriptine - Tegretol level WNL. - The level 10.2. Resume Keppra at lower dose 1000 mg twice a day. Hyperammonemia: 70 -->47 --> 40 -->39 - continue Lactulose 30 ml PO TID. Liquid stools noted. - continue to monitor ammonia Mixed Systolic and diastolic heart failure, acute - Continue Lasix 20mg daily - On Entresto - Monitor electrolytes and renal function. Atrial Fibrillation, acute: Controlled. - Follow daily INR. Pharmacy to manage. Watch closely. - Continue Coumadin. Hyponatremia: BMP reviewed. Na 130 --> 132 --> 129 --> 130 --> 130 --> 131 - Free Water Flushes from 100 ml q6hr to q8hr. - Hold metolazone, monitor BMP closely and monitor patient closely for s/s of fluid overload - Monitor BMP - LAsix daily - Serum osmolality 343, urine osmolality 385 Hypokalemia: potassium --> 3.4 --> 3.6 -->4.2 - Mag level 2.5 - Potassium replacement - Monitor BMP Anasarca: Lasix 20 mg IV TID DC by Dr. Moreno on 03/10/17. - Hold Zaroxolyn 5 mg PO. Continue to monitor. - Lasix daily Chronic Respiratory Failure Chronic obstructive pulmonary disease Multilobar pneumonia - Pulmonology following, appreciate input. - Continue tracheostomy with supplemental oxygen. Maintain O2 sat greater than 92% - Tobramycin completed, course ended on 01/20/17. - Levsin for increased secretions - Wean off O2, possible capping and decannulation Dysphagia Hypoalbuminemia - PEG placed. Continue TF. - Jevity 1.5 through PEG tube with Corby supplementation. - We'll consult dietitian may possibly benefit with overnight feedings and bolus feedings in the morning. This may benefit the patient she transitioned to long-term care. - Possible switch to glucerna as pt. HgA1c 6.5 New onset DM - HgA1C 6.5 - Insulin S/S. monitor Accu-Cheks. Monitor for hypoglycemia. Sacral/Coccyx wound - Continue specialty bed. - Wound care following, wound vac continued. GI Prophylaxis: Pepcid. DVT prophylaxis: SCDs. Coumadin. Discussed with nursing and Dr. Obrien Discharge Planning Case management following. 03/14/17 no accepting facility at this time. Barrier: payer is Medicaid and pt is too expensive with PEG and trach. Possibly can be placed with one or the other but not both. Octaviano Bennett [facility] Mar 17, 2017 11:40
[2017-03-17 12:10] LABS: INTERNATIONAL NORMALIZED RATIO 1.9 RATIO; PROTHROMBIN TIME - PATIENT 21.9 SEC (9.8-11.6)
[2017-03-17 12:23] LABS: BICARBONATE 33.8 MEQ/L (21.0-32.0); POTASSIUM 3.9 MEQ/L (3.5-5.1)
[2017-03-17] MEDS: WARFARIN SOD 10 MG TAB PEG SCH (15:24)
--- NOTE | 2017-03-17 17:31 | HHI.PR ---
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 Mod amount of trach secretions Objective Vital Signs Vital Signs Date Time Temp Pulse Resp B/P Pulse Ox O2 Delivery O2 Flow Rate FiO2 03/17/17 14:28 99 T-piece 28 03/17/17 10:09 94 03/17/17 09:36 100 T-Piece 5.00 28 03/17/17 08:00 98.3 112 18 125/64 99 03/17/17 06:00 98.8 100 20 115/70 100 03/17/17 00:30 98.4 88 23 118/65 100 03/16/17 22:17 100 T-Piece 28 03/16/17 21:30 100 T-piece 6.00 25 03/16/17 21:00 97.4 100 24 120/63 100 03/16/17 20:30 83 I/O 03/16/17 03/16/17 03/16/17 03/17/17 03/17/17 03/17/17 07:00 15:00 23:00 07:00 15:00 23:00 Intake Total 0 ml 462 ml 713 ml 100 ml 713 ml Output Total 500 ml 1975 ml 600 ml 500 ml 450 ml Balance -500 ml -1513 ml 113 ml -400 ml 263 ml Intake Oral 0 ml 0 ml 0 ml Tube Feeding 362 ml 713 ml 713 ml Other 100 ml 100 ml Output Urine Total 500 ml 1950 ml 600 ml 500 ml Drainage Total 25 ml 450 ml # Bowel Movements 2 1 2 1 1 Result Diagram: 03/17/17 1132 Objective Remarks GENERAL: MBMN WF, on Trach collar SKIN: Warm and dry. HEAD: Normocephalic. EYES: No scleral icterus. No injection or drainage. NECK: Supple, trachea midline. No JVD or lymphadenopathy. has trach CARDIOVASCULAR: Regular rate and rhythm without murmurs, gallops, or rubs. RESPIRATORY: Breath sounds equal bilaterally. No accessory muscle use. GASTROINTESTINAL: Abdomen soft, non-tender, nondistended. has PEG MUSCULOSKELETAL: No cyanosis, or edema. BACK: Nontender without obvious deformity. No CVA tenderness. A/P Assessment and Plan RF, S/P Trach CVA Arango arango disease CAD COPD SZ disorder PLAN: Aerosol nebs Cont trach collar supplement 02, keep sat >90% Trach suction prn. DW RN at BS. TF Vernon Marx MD Mar 17, 2017 17:31
[2017-03-18] VITALS (8 sets, daily range): BP systolic 112–135; BP diastolic 61–70; PULSE 68–108; RESP 17–22; TEMP 97.5–99.1; O2SAT 98–100
[2017-03-18] MEDS: CHLORHEXIDINE GLUCONATE 2 % 1 PACK (2 CLOTHS) TOP SCH (02:54)
[2017-03-18] MEDS: HYOSCYAMINE SOLN 0.125 MG/ML 15 ML BTL G-TUBE SCH ×3 (06:04→16:58)
[2017-03-18] MEDS: FREE WATER G-TUBE SCH ×3 (06:04→22:00)
[2017-03-18] MEDS: INSULIN ASPART SUPPLEMENTAL SCALE SQ SCH ×4 (06:06→21:00)
[2017-03-18] MEDS: LACTULOSE SYRUP 20 GM/30 ML CUP G-TUBE SCH ×3 (07:27→16:58)
[2017-03-18] MEDS: FAMOTIDINE 20 MG TAB NG SCH ×2 (07:27→22:26)
[2017-03-18] MEDS: BROMOCRIPTINE MESYLATE 2.5 MG TAB OG-TUBE SCH ×2 (07:27→22:26)
[2017-03-18] MEDS: carBAMazepine SUSP 200 MG/10 ML UDC PEG SCH ×2 (07:27→22:50)
[2017-03-18] MEDS: levETIRAcetam 500 MG TAB PO SCH ×2 (07:27→22:26)
[2017-03-18] MEDS: METOPROLOL TARTRATE 25 MG TAB G-TUBE SCH ×2 (07:27→22:26)
[2017-03-18] MEDS: SACUBITRIL/VALSARTAN 24 MG-26 MG TAB PEG SCH ×2 (07:27→22:26)
[2017-03-18] MEDS: FERROUS SULFATE 300 MG /5ML UDC PEG SCH ×2 (07:27→22:26)
[2017-03-18] MEDS: ATORVASTATIN 40 MG TAB G-TUBE SCH (07:27)
[2017-03-18] MEDS: ASCORBIC ACID 500 MG TAB PEG SCH ×2 (07:27→22:26)
[2017-03-18] MEDS: JUVEN POWDER 1 PACK G-TUBE SCH ×2 (07:28→21:00)
[2017-03-18] MEDS: SENNOSIDES SYRUP 8.8 MG/5 ML CUP G-TUBE SCH ×2 (07:28→22:27)
[2017-03-18] MEDS: SODIUM CHLORIDE 0.9% FLUSH 10 ML FLUSH IV FLUSH SCH ×2 (07:28→21:00)
[2017-03-18] MEDS: POTASSIUM CHLORIDE 20 MEQ PWD PACKET NG SCH (07:28)
[2017-03-18] MEDS: FUROSEMIDE 20 MG/2 ML VIAL IV PUSH SCH (07:28)
[2017-03-18] MEDS: FOLIC ACID 1 MG TAB OG-TUBE SCH (07:28)
[2017-03-18] MEDS: CHLORHEXIDINE 0.12% (ORAL KIT) 15 ML CUP MT SCH ×2 (07:28→20:00)
[2017-03-18] MEDS: SODIUM HYPOCHLORITE 0.25% 500 ML BTL TOPICAL SCH (07:29)
[2017-03-18] MEDS: POVIDONE IODINE 10% OINT 30 GM TUBE TOPICAL SCH (07:29)
--- NOTE | 2017-03-18 08:45 | HHI.PR ---
Subjective Remarks Follow-up visit bilateral frontal CVA, moyamoya disease, seizure disorder, COPD , hyponatremia. Patient seen and examined today. Patient is awake and alert, occasionally tracks, does not follow any commands. Tracheostomy in place FiO2 28%, O2 sat 97-98%. Appears comfortable. Objective Vitals Vital Signs Date Time Temp Pulse Resp B/P Pulse Ox O2 Delivery O2 Flow Rate FiO2 03/18/17 08:15 108 03/18/17 07:46 98 T-Piece 5.00 28 03/18/17 04:30 99.1 68 17 112/61 98 03/18/17 04:00 T-Piece 6.00 28 03/18/17 00:30 98.6 93 20 125/68 100 03/18/17 00:00 T-Piece 6.00 28 03/17/17 21:50 99 T-piece 6.00 28 03/17/17 20:00 T-Piece 6.00 28 03/17/17 17:48 98 03/17/17 16:00 97.8 95 18 115/57 100 03/17/17 14:28 99 T-piece 28 03/17/17 12:00 97.3 98 18 114/70 100 03/17/17 10:09 94 03/17/17 09:36 100 T-Piece 5.00 28 I/O 03/17/17 03/17/17 03/17/17 03/18/17 03/18/17 03/18/17 06:59 14:59 22:59 06:59 14:59 22:59 Intake Total 713 ml 100 ml 896 ml 420 ml Output Total 600 ml 500 ml 475 ml 760 ml Balance 113 ml -400 ml 421 ml -340 ml Intake Oral 0 ml Tube Feeding 713 ml 896 ml 420 ml Other 100 ml Output Urine Total 600 ml 500 ml 750 ml Drainage Total 475 ml 10 ml # Bowel Movements 1 1 1 Result Diagram: 03/17/17 1132 Imaging Last Impressions Abdomen X-Ray 02/11/17 0000 Signed Impressions: Service Date/Time: Saturday, February 11, 2017 17:52 - CONCLUSION: Minimal colonic distention. Kenneth Frost MD FACR Catheter Change 02/10/17 0000 Signed Impressions: Service Date/Time: February 13:47 - CONCLUSION: Uncomplicated fluoroscopic guided gastrostomy tube replacement. Positioning confirmed. The tube can be used immediately. Nghia Pacheco MD Lower Extremity Ultrasound 02/01/17 0000 Signed Impressions: Service Date/Time: Wednesday, February 01, 2017 13:23 - CONCLUSION: Normal examination. Gray Veronica MD Chest X-Ray 02/01/17 0000 Signed Impressions: Service Date/Time: Wednesday, February 01, 2017 08:45 - CONCLUSION: 1. Stable tracheostomy. 2. Mild interstitial prominence may reflect slight positive fluid balance. Christiano Villagran MD Brain MRI 01/06/17 0000 Signed Impressions: Service Date/Time: January 14:19 - CONCLUSION: Continued evolutionary changes of large bilateral frontal lobe infarcts. Sami Mccarthy MD Objective Remarks GENERAL: Obese female patient lying in bed in NAD, t-collar in place. SKIN: Warm and dry. HEENT: Normocephalic. No scleral icterus. No injection or drainage. No nasal bleeding or discharge. Mucous membranes pink and moist. NECK: Supple. Tracheostomy in place. CARDIOVASCULAR: Regular rate and rhythm. S1, S2 noted. No murmur appreciated. RESPIRATORY: No accessory muscle use. Coarse breath sounds noted. No wheezing. GASTROINTESTINAL: Abdomen soft, non-tender, nondistended. Normoactive bowel sounds x4. PEG in place. MUSCULOSKELETAL: No obvious deformities. Extremities without clubbing, cyanosis. Edematous extremities +1. Hemovac left sacral and thigh area draining serous sanguinous drain. NEUROLOGICAL: Awake and alert. Occasionally tracking. Does not follow any commands. No spontaneous movement in upper or lower extremities. Procedures PEG 11/24/2016 Percutaneous tracheostomy. 11/18/2016 Moderate encephalopathy with suggestion of left temporal region cortical irritability. No active seizures. Clinical correlation. Echocardiogram Severe dilated left ventricle. Wall thickness is normal. The left ventricular systolic function is moderately reduced with an estimated ejection fraction in the range of 35-40%. Doppler parameters are consistent with a restrictive left ventricular filling pattern indicative of decreased left ventricular diastolic compliance and increase left atrial pressure (grade 3 diastolic dysfunction). There is severe tricuspid regurgitation. There is severe pulmonary hypertension present ( > 70 mmHg). Severe mitral valve regurgitation. 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 She was was admitted to [facility] emergency department 11/04/16 with difficulty getting her thoughts together. She was found to have multifocal ischemic infarcts in left frontal and parietal regions, right frontal lobe and history of moyamoya disease. She was initially awake and following commands with weakness of RLE and some aphasia. She was transferred to [facility] where he had an cerebral angiogram consistent with moyamoya. There were plans to perform extracranial/ intracranial bypass. However she had a seizure and ended up being intubated for status epilepticus 11/2016 She was found to have a new right frontal infarct area and she was started on Dilantin and Keppra and it was felt that she would not be a candidate for intervention. She has been intubated 9-10 days. Treating team was discussing with family trach/PEG. Family requested transfer back to [place] because they live locally here and wanted her closer to home. Patient remained under critical care medicine until 12/24/2016. Bilateral large frontal CVA Moyamoya Disease Seizure Disorder - Continue Tegretol 200 mg q12h - Follow for seizure activity - Continue aspirin - Continue Bromocriptine - Tegretol level WNL. - The level 10.2. Resume Keppra at lower dose 1000 mg twice a day. Hyperammonemia: 70 -->47 --> 40 -->39 - continue Lactulose 30 ml PO TID. Liquid stools noted. - continue to monitor ammonia Mixed Systolic and diastolic heart failure, acute - Continue Lasix 20mg daily - On Entresto - Monitor electrolytes and renal function. Atrial Fibrillation, acute: Controlled. - Follow daily INR. Pharmacy to manage. Watch closely. - Continue Coumadin. Hyponatremia: BMP reviewed. Na 129 --> 130 --> 130 --> 131 --> 133 - Free Water Flushes from 100 ml q6hr to q8hr. - Hold metolazone, monitor BMP closely and monitor patient closely for s/s of fluid overload - Monitor BMP - LAsix daily - Serum osmolality 343, urine osmolality 385 Hypokalemia: potassium --> 3.4 --> 3.6 -->4.2 - Mag level 2.5 - Potassium replacement - Monitor BMP Anasarca: Lasix 20 mg IV TID DC by Dr. Moreno on 03/10/17. - Hold Zaroxolyn 5 mg PO. Continue to monitor. - Lasix daily - Improving Chronic Respiratory Failure Chronic obstructive pulmonary disease Multilobar pneumonia - Pulmonology following, appreciate input. - Continue tracheostomy with supplemental oxygen. Maintain O2 sat greater than 92% - Tobramycin completed, course ended on 01/20/17. - Levsin for increased secretions - Wean off O2, possible capping and decannulation Dysphagia Hypoalbuminemia - PEG placed. Continue TF. - Jevity 1.5 through PEG tube with Corby supplementation. - We'll consult dietitian may possibly benefit with overnight feedings and bolus feedings in the morning. This may benefit the patient she transitioned to long-term care. - Switch to glucerna as pt. HgA1c 6.5 New onset DM - HgA1C 6.5 - Insulin S/S. monitor Accu-Cheks. Monitor for hypoglycemia. Sacral/Coccyx wound - Continue specialty bed. - Wound care following, wound vac continued. GI Prophylaxis: Pepcid. DVT prophylaxis: SCDs. Coumadin. Discussed with nursing and Dr. Obrien Discharge Planning Case management following. 03/14/17 no accepting facility at this time. Barrier: payer is Medicaid and pt is too expensive with PEG and trach. Possibly can be placed with one or the other but not both. Octaviano Bennett [employer] Mar 18, 2017 08:45
[2017-03-18 10:31] LABS: INTERNATIONAL NORMALIZED RATIO 1.7 RATIO; PROTHROMBIN TIME - PATIENT 19.8 SEC (9.8-11.6)
[2017-03-18 10:55] LABS: BICARBONATE 32.7 MEQ/L (21.0-32.0); POTASSIUM 4.1 MEQ/L (3.5-5.1)
--- NOTE | 2017-03-18 14:27 | PD.WCN.NOT ---
Neg Pressure Wound Therapy Wound Location Wound Location: Sacrum Wound Description Width: Undermining: Circumferential Wound bed appearance: ~80% vascular red non granulating tissue and ~20% bone palpated Periwound appearance: Other Settings Suction: 125 mmHg, Continuous Intensity: Low Other Information: Bridged Foam type: Black Number of pieces: 1 Additonal Information Patient seen on 5 North for wound VAC dressing change to sacrum with Alta POWELL 5 north at bedside for assistance in repositioning and support of patient. Wound VAC machine was observed and appeared to be working properly without leaks noted. Patient tube feed placed on hold. Patient was positioned to her R side with maximum assistance.Canister noted with ~25 ml dark red to brown drainage.Turned VAC suction off.Current VAC dressing in place appears to be leaking at 6 and 12 o'clock.Removed current VAC dressing in place, foul odor present with dressing removal. Black granufoam was removed and the wound was cleansed with 0.25% Dakins solution as ordered between dressing changes.There is minimal sanguinous and dark brown drainage noted to removed gauze used to cleanse wound. Wound margin at 4 o'clock is noted with some full thickness skin loss.Periwound was sprayed with Cavilon skin prep prior to protect skin from foam with drape being placed over intact skin from periwound up to L lateral upper thigh where trac pad was placed and secured. Black granufoam was cut in a cinnamon roll fashion and inserted into wound using a coiling method and then secured with VAC drape. 1 piece of granufoam was used in all. Stoma paste was applied to periwound to obtain and maintain seal once wound VAC was turned on with settings described above. No leaks noted, seal obtained. Placed new ultra sorb pad under patient after VAC dressing change. Patient was positioned to her right side and elevated head >30 degrees so that tube feed could be resumed. Alma Martinez [facility] Mar 18, 2017 14:27
[2017-03-18] MEDS: WARFARIN SOD 10 MG TAB PEG SCH (15:30)
[2017-03-18] MEDS ORDERED: WARFARIN SOD 2.5 MG TAB PEG SCH (16:00)
--- NOTE | 2017-03-18 17:40 | HHI.PR ---
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 Mod amount of trach secretions opens eyes, does't follow Objective Vital Signs Vital Signs Date Time Temp Pulse Resp B/P Pulse Ox O2 Delivery O2 Flow Rate FiO2 03/18/17 10:23 98 T-piece 28 03/18/17 10:20 98 T-piece 6.00 28 03/18/17 08:15 108 03/18/17 08:00 98.1 102 19 135/69 99 03/18/17 07:46 98 T-Piece 5.00 28 03/18/17 04:30 99.1 68 17 112/61 98 03/18/17 04:00 T-Piece 6.00 28 03/18/17 00:30 98.6 93 20 125/68 100 03/18/17 00:00 T-Piece 6.00 28 03/17/17 21:50 99 T-piece 6.00 28 03/17/17 20:00 T-Piece 6.00 28 03/17/17 17:48 98 I/O 03/17/17 03/17/17 03/17/17 03/18/17 03/18/17 03/18/17 07:00 15:00 23:00 07:00 15:00 23:00 Intake Total 713 ml 100 ml 896 ml 420 ml 100 ml 580 ml Output Total 600 ml 500 ml 475 ml 760 ml Balance 113 ml -400 ml 421 ml -340 ml 100 ml 580 ml Intake Oral 0 ml Tube Feeding 713 ml 896 ml 420 ml 580 ml Other 100 ml 100 ml Output Urine Total 600 ml 500 ml 750 ml Drainage Total 475 ml 10 ml # Bowel Movements 1 1 1 Result Diagram: 03/18/17 0935 Objective Remarks GENERAL: MBMN WF, on Trach collar SKIN: Warm and dry. HEAD: Normocephalic. EYES: No scleral icterus. No injection or drainage. NECK: Supple, trachea midline. No JVD or lymphadenopathy. has trach CARDIOVASCULAR: Regular rate and rhythm without murmurs, gallops, or rubs. RESPIRATORY: Breath sounds equal bilaterally. No accessory muscle use. GASTROINTESTINAL: Abdomen soft, non-tender, nondistended. has PEG MUSCULOSKELETAL: No cyanosis, or edema. BACK: Nontender without obvious deformity. No CVA tenderness. A/P Assessment and Plan RF, S/P Trach CVA Arango arango disease CAD COPD SZ disorder PLAN: Aerosol nebs Cont trach collar supplement 02, keep sat >90% Trach suction prn. PARTHA RN at BS. Vernon Hoyt MD Mar 18, 2017 17:40
[2017-03-19] VITALS (11 sets, daily range): BP systolic 101–125; BP diastolic 50–69; PULSE 83–101; RESP 18–22; TEMP 97.5–99.7; O2SAT 95–100
[2017-03-19] MEDS: HYOSCYAMINE SOLN 0.125 MG/ML 15 ML BTL G-TUBE SCH ×5 (00:08→23:00)
[2017-03-19] MEDS: CHLORHEXIDINE GLUCONATE 2 % 1 PACK (2 CLOTHS) TOP SCH ×2 (00:08→23:00)
[2017-03-19] MEDS: FREE WATER G-TUBE SCH ×3 (06:00→20:56)
[2017-03-19] MEDS: INSULIN ASPART SUPPLEMENTAL SCALE SQ SCH ×3 (06:20→21:00)
[2017-03-19] MEDS: SODIUM CHLORIDE 0.9% FLUSH 10 ML FLUSH IV FLUSH SCH ×2 (07:56→20:56)
[2017-03-19] MEDS: FUROSEMIDE 20 MG/2 ML VIAL IV PUSH SCH (07:56)
[2017-03-19] MEDS: carBAMazepine SUSP 200 MG/10 ML UDC PEG SCH ×2 (07:58→20:56)
[2017-03-19] MEDS: FERROUS SULFATE 300 MG /5ML UDC PEG SCH ×2 (07:58→20:55)
[2017-03-19] MEDS: CHLORHEXIDINE 0.12% (ORAL KIT) 15 ML CUP MT SCH ×2 (07:58→20:00)
[2017-03-19] MEDS: JUVEN POWDER 1 PACK G-TUBE SCH ×2 (07:58→20:56)
[2017-03-19] MEDS: LACTULOSE SYRUP 20 GM/30 ML CUP G-TUBE SCH ×3 (07:58→17:03)
[2017-03-19] MEDS: SENNOSIDES SYRUP 8.8 MG/5 ML CUP G-TUBE SCH ×2 (07:59→20:55)
[2017-03-19] MEDS: ATORVASTATIN 40 MG TAB G-TUBE SCH (07:59)
[2017-03-19] MEDS: FAMOTIDINE 20 MG TAB NG SCH ×2 (07:59→20:56)
[2017-03-19] MEDS: levETIRAcetam 500 MG TAB PO SCH ×2 (07:59→20:56)
[2017-03-19] MEDS: BROMOCRIPTINE MESYLATE 2.5 MG TAB OG-TUBE SCH ×2 (07:59→20:56)
[2017-03-19] MEDS: POTASSIUM CHLORIDE 20 MEQ PWD PACKET NG SCH (07:59)
[2017-03-19] MEDS: FOLIC ACID 1 MG TAB OG-TUBE SCH (07:59)
[2017-03-19] MEDS: METOPROLOL TARTRATE 25 MG TAB G-TUBE SCH ×2 (07:59→20:56)
[2017-03-19] MEDS: SACUBITRIL/VALSARTAN 24 MG-26 MG TAB PEG SCH ×2 (07:59→20:56)
[2017-03-19] MEDS: ASCORBIC ACID 500 MG TAB PEG SCH ×2 (07:59→20:56)
[2017-03-19] MEDS: POVIDONE IODINE 10% OINT 30 GM TUBE TOPICAL SCH (08:00)
[2017-03-19] MEDS: SODIUM HYPOCHLORITE 0.25% 500 ML BTL TOPICAL SCH (08:00)
[2017-03-19 08:14] LABS: AUTOMATED NEUTROPHIL # 9.4 TH/MM3 (1.8-7.7); BASOPHIL # 0.1 TH/MM3 (0-0.2); BASOPHIL % 0.6 % (0.0-2.0); EOSINOPHIL # 0.2 TH/MM3 (0-0.4); EOSINOPHIL % 1.5 % (0.0-4.0); HEMATOCRIT 26.9 % (35.0-46.0); HEMO FLAGS DIFF FINAL; LYMPH % 11.8 % (9.0-44.0); LYMPHOCYTE # 1.4 TH/MM3 (1.0-4.8); MEAN CORPUSCULAR HEMOGLOBIN 24.1 PG (27.0-34.0); MEAN CORPUSCULAR HGB CONC 32.5 % (32.0-36.0); MONO % 6.5 % (0.0-8.0); NEUT % 79.6 % (16.0-70.0); PLATELET COUNT 532 TH/MM3 (150-450); RED BLOOD COUNT 3.63 MIL/MM3 (4.00-5.30); WHITE BLOOD COUNT 11.9 TH/MM3 (4.0-11.0)
[2017-03-19 08:36] LABS: BICARBONATE 29.9 MEQ/L (21.0-32.0); POTASSIUM 4.3 MEQ/L (3.5-5.1)
[2017-03-19 08:37] LABS: INTERNATIONAL NORMALIZED RATIO 1.9 RATIO; PROTHROMBIN TIME - PATIENT 21.4 SEC (9.8-11.6)
--- NOTE | 2017-03-19 09:10 | HHI.PR ---
Subjective Remarks Follow-up visit bilateral frontal CVA, moyamoya disease, seizure disorder, COPD , hyponatremia. Patient seen and examined today. Patient is awake and alert. Does not track or follow any commands. Appears comfortable. No issues overnight. Objective Vitals Vital Signs Date Time Temp Pulse Resp B/P Pulse Ox O2 Delivery O2 Flow Rate FiO2 03/19/17 08:17 98 T-Piece 5.00 28 03/19/17 07:08 98 03/19/17 06:51 97 03/19/17 04:00 99.5 89 20 101/55 95 03/19/17 00:00 97.9 97 22 112/69 100 03/18/17 23:05 100 T-Piece 5.00 28 03/18/17 21:34 100 T-piece 5.00 28 03/18/17 21:34 100 T-piece 5.00 28 03/18/17 20:00 97.5 101 22 117/70 100 03/18/17 10:23 98 T-piece 28 03/18/17 10:20 98 T-piece 6.00 28 I/O 03/18/17 03/18/17 03/18/17 03/19/17 03/19/17 03/19/17 07:00 15:00 23:00 07:00 15:00 23:00 Intake Total 420 ml 100 ml 580 ml 380 ml Output Total 760 ml 500 ml Balance -340 ml 100 ml 580 ml -120 ml Tube Feeding 420 ml 580 ml 380 ml Other 100 ml Output Urine Total 750 ml 500 ml Tube Feeding Residual Discard 0 ml Drainage Total 10 ml # Bowel Movements 1 Result Diagram: 03/19/17 0755 03/19/17 0755 Imaging Last Impressions Abdomen X-Ray 02/11/17 0000 Signed Impressions: Service Date/Time: Saturday, February 11, 2017 17:52 - CONCLUSION: Minimal colonic distention. Kenneth Frost MD FACR Catheter Change 02/10/17 0000 Signed Impressions: Service Date/Time: February 13:47 - CONCLUSION: Uncomplicated fluoroscopic guided gastrostomy tube replacement. Positioning confirmed. The tube can be used immediately. Nghia Pacheco MD Lower Extremity Ultrasound 02/01/17 0000 Signed Impressions: Service Date/Time: Wednesday, February 01, 2017 13:23 - CONCLUSION: Normal examination. Gray A. Jeremías, MD Chest X-Ray 02/01/17 0000 Signed Impressions: Service Date/Time: Wednesday, February 01, 2017 08:45 - CONCLUSION: 1. Stable tracheostomy. 2. Mild interstitial prominence may reflect slight positive fluid balance. Christiano Villagran MD Brain MRI 01/06/17 0000 Signed Impressions: Service Date/Time: January 14:19 - CONCLUSION: Continued evolutionary changes of large bilateral frontal lobe infarcts. Sami Mccarthy MD Objective Remarks GENERAL: Obese female patient lying in bed in NAD, t-collar in place. SKIN: Warm and dry. HEENT: Normocephalic. No scleral icterus. No injection or drainage. No nasal bleeding or discharge. Mucous membranes pink and moist. NECK: Supple. Tracheostomy in place. CARDIOVASCULAR: Regular rate and rhythm. S1, S2 noted. No murmur appreciated. RESPIRATORY: No accessory muscle use. Coarse breath sounds noted. No wheezing. GASTROINTESTINAL: Abdomen soft, non-tender, nondistended. Normoactive bowel sounds x4. PEG in place. MUSCULOSKELETAL: No obvious deformities. Extremities without clubbing, cyanosis. Edematous extremities +1. Hemovac left sacral and thigh area draining sanguinous drain. NEUROLOGICAL: Awake and alert. Occasionally tracking. Does not follow any commands. No spontaneous movement in upper or lower extremities. Procedures PEG 11/24/2016 Percutaneous tracheostomy. 11/18/2016 Moderate encephalopathy with suggestion of left temporal region cortical irritability. No active seizures. Clinical correlation. Echocardiogram Severe dilated left ventricle. Wall thickness is normal. The left ventricular systolic function is moderately reduced with an estimated ejection fraction in the range of 35-40%. Doppler parameters are consistent with a restrictive left ventricular filling pattern indicative of decreased left ventricular diastolic compliance and increase left atrial pressure (grade 3 diastolic dysfunction). There is severe tricuspid regurgitation. There is severe pulmonary hypertension present ( > 70 mmHg). Severe mitral valve regurgitation. 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 She was was admitted to [facility] emergency department 11/04/16 with difficulty getting her thoughts together. She was found to have multifocal ischemic infarcts in left frontal and parietal regions, right frontal lobe and history of moyamoya disease. She was initially awake and following commands with weakness of RLE and some aphasia. She was transferred to [facility] where he had an cerebral angiogram consistent with moyamoya. There were plans to perform extracranial/ intracranial bypass. However she had a seizure and ended up being intubated for status epilepticus 11/2016 She was found to have a new right frontal infarct area and she was started on Dilantin and Keppra and it was felt that she would not be a candidate for intervention. She has been intubated 9-10 days. Treating team was discussing with family trach/PEG. Family requested transfer back to [place] because they live locally here and wanted her closer to home. Patient remained under critical care medicine until 12/24/2016. Bilateral large frontal CVA Moyamoya Disease Seizure Disorder - Continue Tegretol 200 mg q12h - Follow for seizure activity - Continue aspirin - Continue Bromocriptine - Tegretol level WNL. - The level 10.2. Resume Keppra at lower dose 1000 mg twice a day. Hyperammonemia: 70 -->47 --> 40 -->39 -->33 - continue Lactulose 30 ml PO TID. - continue to monitor ammonia Mixed Systolic and diastolic heart failure, acute - Continue Lasix 20mg daily - On Entresto - Monitor electrolytes and renal function. Atrial Fibrillation, acute: Controlled. - Follow daily INR. Pharmacy to manage. Watch closely. - Continue Coumadin. Hyponatremia: BMP reviewed. Na 129 --> 130 --> 130 --> 131 --> 133 -->133 - Free Water Flushes from 100 ml q8hr. - Hold metolazone, monitor BMP closely and monitor patient closely for s/s of fluid overload - Monitor BMP - LAsix daily - Serum osmolality 343, urine osmolality 385 Hypokalemia: potassium --> 3.4 --> 3.6 -->4.2 -->4.3 - Mag level 2.5 - Potassium replacement - Monitor BMP Anasarca: Lasix 20 mg IV TID DC by Dr. Moreno on 03/10/17. - Hold Zaroxolyn 5 mg PO. Continue to monitor. - Lasix daily - Improving Chronic Respiratory Failure Chronic obstructive pulmonary disease Multilobar pneumonia - Pulmonology following, appreciate input. - Continue tracheostomy with supplemental oxygen. Maintain O2 sat greater than 92% - Tobramycin completed, course ended on 01/20/17. - Levsin for increased secretions - Wean off O2, possible capping and decannulation Dysphagia Hypoalbuminemia - PEG placed. Continue TF. - Jevity 1.5 through PEG tube with Corby supplementation. - We'll consult dietitian may possibly benefit with overnight feedings and bolus feedings in the morning. This may benefit the patient she transitioned to long-term care. - Switch to glucerna as pt. HgA1c 6.5 - Dietecian recommends Glucerna 1.5 360 mls at B, L D nad HS Continue Corby as ordered. New onset DM - HgA1C 6.5 - Insulin S/S. monitor Accu-Cheks. Monitor for hypoglycemia. - Change to Glucerna feedings - BG improved. Will decrease ISS to BID Sacral/Coccyx wound - Continue specialty bed. - Wound care following, wound vac continued. Mild Leukocytosis - WBC 11.9, Increase temp 99.7 - Brown cath in place. Will replace catheter. - Increase risk for Sepsis PNA/ UTI secondary to immobility - Monitor for now. Will consider UA and CXR. GI Prophylaxis: Pepcid. DVT prophylaxis: SCDs. Coumadin. Discussed with nursing and Dr. Obrien Discharge Planning Case management following. 03/14/17 no accepting facility at this time. Barrier: payer is Medicaid and pt is too expensive with PEG and trach. Possibly can be placed with one or the other but not both. Octaviano Bennett Mar 19, 2017 09:10
--- NOTE | 2017-03-19 10:18 | HHI.PR ---
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 Mod amount of trach secretions opens eyes, does't follow Levsin helps, radha RN Objective Vital Signs Vital Signs Date Time Temp Pulse Resp B/P Pulse Ox O2 Delivery O2 Flow Rate FiO2 03/19/17 08:17 98 T-Piece 5.00 28 03/19/17 07:08 98 03/19/17 06:51 97 03/19/17 04:00 99.5 89 20 101/55 95 03/19/17 00:00 97.9 97 22 112/69 100 03/18/17 23:05 100 T-Piece 5.00 28 03/18/17 21:34 100 T-piece 5.00 28 03/18/17 21:34 100 T-piece 5.00 28 03/18/17 20:00 97.5 101 22 117/70 100 03/18/17 10:23 98 T-piece 28 03/18/17 10:20 98 T-piece 6.00 28 I/O 03/18/17 03/18/17 03/18/17 03/19/17 03/19/17 03/19/17 07:00 15:00 23:00 07:00 15:00 23:00 Intake Total 420 ml 100 ml 580 ml 380 ml Output Total 760 ml 500 ml Balance -340 ml 100 ml 580 ml -120 ml Tube Feeding 420 ml 580 ml 380 ml Other 100 ml Output Urine Total 750 ml 500 ml Tube Feeding Residual Discard 0 ml Drainage Total 10 ml # Bowel Movements 1 Result Diagram: 03/19/17 0755 03/19/17 0755 Objective Remarks GENERAL: MBMN WF, on Trach collar SKIN: Warm and dry. HEAD: Normocephalic. EYES: No scleral icterus. No injection or drainage. NECK: Supple, trachea midline. No JVD or lymphadenopathy. has trach CARDIOVASCULAR: Regular rate and rhythm without murmurs, gallops, or rubs. RESPIRATORY: Breath sounds equal bilaterally. No accessory muscle use. GASTROINTESTINAL: Abdomen soft, non-tender, nondistended. has PEG MUSCULOSKELETAL: No cyanosis, or edema. BACK: Nontender without obvious deformity. No CVA tenderness. A/P Assessment and Plan RF, S/P Trach CVA Arango arango disease CAD COPD SZ disorder PLAN: Aerosol nebs Cont trach collar supplement 02, keep sat >90% Trach suction prn. DW RN at BS. TF Cont Levsin. Vernon Marx MD Mar 19, 2017 10:18
[2017-03-19] MEDS: WARFARIN SOD 10 MG TAB PEG SCH (15:06)
[2017-03-19 15:35] LABS: BACTERIA, URINE RARE /hpf; BLOOD, URINE NEG (NEG); COMMENT (UR) CATH-CULTURE IND; CULTURE IF INDICATED CATH CULTURE IND; GLUCOSE,URINE NEG (NEG); KETONE, URINE NEG (NEG); NITRITE,URINE NEG (NEG); URINE COLOR YELLOW (YELLW/STRAW)
[2017-03-19] MEDS ORDERED: WARFARIN SOD 2.5 MG TAB PEG SCH (16:00)
[2017-03-20] VITALS (8 sets, daily range): BP systolic 98–160; BP diastolic 57–70; PULSE 85–96; RESP 18–22; TEMP 97.6–98.9; O2SAT 100
[2017-03-20] MEDS: FREE WATER G-TUBE SCH ×3 (05:50→22:00)
[2017-03-20] MEDS: HYOSCYAMINE SOLN 0.125 MG/ML 15 ML BTL G-TUBE SCH ×3 (05:50→17:42)
[2017-03-20] MEDS: CHLORHEXIDINE 0.12% (ORAL KIT) 15 ML CUP MT SCH ×2 (08:00→20:00)
--- NOTE | 2017-03-20 08:48 | HHI.PR ---
Subjective Remarks Follow-up visit bilateral frontal CVA, moyamoya disease, seizure disorder, COPD , hyponatremia. Patient seen and examined today. Patient is awake. Does not follow any commands. Suction patient's moderately colored secretions. Objective Vitals Vital Signs Date Time Temp Pulse Resp B/P Pulse Ox O2 Delivery O2 Flow Rate FiO2 03/20/17 08:30 98.9 93 22 134/62 100 03/20/17 03:56 97.6 85 18 98/62 100 03/20/17 00:00 98.2 85 18 99/57 100 03/19/17 23:23 84 03/19/17 23:23 100 T-Piece 7.00 28 03/19/17 21:57 100 T-piece 7.00 28 03/19/17 21:54 100 T-piece 7.00 28 03/19/17 20:57 97.5 87 18 104/58 100 03/19/17 19:20 100 T-Piece 5.00 28 03/19/17 16:00 97.7 83 20 107/50 100 03/19/17 12:00 97.9 89 21 102/59 100 I/O 03/19/17 03/19/17 03/19/17 03/20/17 03/20/17 03/20/17 07:00 15:00 23:00 07:00 15:00 23:00 Intake Total 380 ml 100 ml 563 ml Output Total 500 ml 75 ml Balance -120 ml 25 ml 563 ml Tube Feeding 380 ml 563 ml Other 100 ml Output Urine Total 500 ml 75 ml Tube Feeding Residual Discard 0 ml # Bowel Movements 1 1 Result Diagram: 03/19/17 0755 03/19/17 0755 Imaging Last Impressions Abdomen X-Ray 02/11/17 0000 Signed Impressions: Service Date/Time: Saturday, February 11, 2017 17:52 - CONCLUSION: Minimal colonic distention. Kenneth Frost MD FACR Catheter Change 02/10/17 0000 Signed Impressions: Service Date/Time: February 13:47 - CONCLUSION: Uncomplicated fluoroscopic guided gastrostomy tube replacement. Positioning confirmed. The tube can be used immediately. Nghia Pacheco MD Lower Extremity Ultrasound 02/01/17 0000 Signed Impressions: Service Date/Time: Wednesday, February 01, 2017 13:23 - CONCLUSION: Normal examination. Gray Veronica MD Chest X-Ray 02/01/17 0000 Signed Impressions: Service Date/Time: Wednesday, February 01, 2017 08:45 - CONCLUSION: 1. Stable tracheostomy. 2. Mild interstitial prominence may reflect slight positive fluid balance. Christiano Villagran MD Brain MRI 01/06/17 0000 Signed Impressions: Service Date/Time: January 14:19 - CONCLUSION: Continued evolutionary changes of large bilateral frontal lobe infarcts. Sami Mccarthy MD Objective Remarks GENERAL: Obese female patient lying in bed in NAD, t-collar in place. SKIN: Warm and dry. HEENT: Normocephalic. No scleral icterus. No injection or drainage. No nasal bleeding or discharge. Mucous membranes pink and moist. NECK: Supple. Tracheostomy in place. CARDIOVASCULAR: Regular rate and rhythm. S1, S2 noted. No murmur appreciated. RESPIRATORY: No accessory muscle use. Coarse breath sounds noted. No wheezing. GASTROINTESTINAL: Abdomen soft, non-tender, nondistended. Normoactive bowel sounds x4. PEG in place. : Brown kevan yellow urine, slightly cloudy. MUSCULOSKELETAL: No obvious deformities. Extremities without clubbing, cyanosis. Edematous extremities +1. Hemovac sacrum draining sanguinous fluid. NEUROLOGICAL: Awake Does not follow any commands. No spontaneous movement in upper or lower extremities. Procedures PEG 11/24/2016 Percutaneous tracheostomy. 11/18/2016 Moderate encephalopathy with suggestion of left temporal region cortical irritability. No active seizures. Clinical correlation. Echocardiogram Severe dilated left ventricle. Wall thickness is normal. The left ventricular systolic function is moderately reduced with an estimated ejection fraction in the range of 35-40%. Doppler parameters are consistent with a restrictive left ventricular filling pattern indicative of decreased left ventricular diastolic compliance and increase left atrial pressure (grade 3 diastolic dysfunction). There is severe tricuspid regurgitation. There is severe pulmonary hypertension present ( > 70 mmHg). Severe mitral valve regurgitation. 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 She was was admitted to [facility] emergency department 11/04/16 with difficulty getting her thoughts together. She was found to have multifocal ischemic infarcts in left frontal and parietal regions, right frontal lobe and history of moyamoya disease. She was initially awake and following commands with weakness of RLE and some aphasia. She was transferred to [facility] where he had an cerebral angiogram consistent with moyamoya. There were plans to perform extracranial/ intracranial bypass. However she had a seizure and ended up being intubated for status epilepticus 11/2016 She was found to have a new right frontal infarct area and she was started on Dilantin and Keppra and it was felt that she would not be a candidate for intervention. She has been intubated 9-10 days. Treating team was discussing with family trach/PEG. Family requested transfer back to [place] because they live locally here and wanted her closer to home. Patient remained under critical care medicine until 12/24/2016. SIRS HR>90s, WBC 12.2 Sepsis - UA positive, pending cultures - CXR ordered, Lactic acid, BC x2 - Patient with increase risk for PNA/ UTI secondary to immobility. Patient also with wound vac. Bilateral large frontal CVA Moyamoya Disease Seizure Disorder - Continue Tegretol 200 mg q12h - Follow for seizure activity - Continue Bromocriptine - Tegretol level WNL. - The level 10.2. Resume Keppra at lower dose 1000 mg twice a day. Hyperammonemia: 70 -->47 --> 40 -->39 -->33 - continue Lactulose 30 ml PO TID. - continue to monitor ammonia Mixed Systolic and diastolic heart failure, acute - Continue Lasix 20mg daily - On Entresto - Monitor electrolytes and renal function. Atrial Fibrillation, acute: Controlled. - Follow daily INR. Pharmacy to manage. Watch closely. - Continue Coumadin. Hyponatremia: BMP reviewed. Na 129 --> 130 --> 130 --> 131 --> 133 -->133 - Free Water Flushes from 100 ml q8hr. - Hold metolazone, monitor BMP closely and monitor patient closely for s/s of fluid overload - Monitor BMP - LAsix daily - Serum osmolality 343, urine osmolality 385 Hypokalemia: potassium --> 3.4 --> 3.6 -->4.2 -->4.3 - Mag level 2.5 - Potassium replacement - Monitor BMP Anasarca: Lasix 20 mg IV TID DC by Dr. Moreno on 03/10/17. - Hold Zaroxolyn 5 mg PO. Continue to monitor. - Lasix daily - Improving Chronic Respiratory Failure Chronic obstructive pulmonary disease Multilobar pneumonia - Pulmonology following, appreciate input. - Continue tracheostomy with supplemental oxygen. Maintain O2 sat greater than 92% - Tobramycin completed, course ended on 01/20/17. - Levsin for increased secretions - Wean off O2, possible capping and decannulation Dysphagia Hypoalbuminemia - PEG placed. Continue TF. - Jevity 1.5 through PEG tube with Corby supplementation. - We'll consult dietitian may possibly benefit with overnight feedings and bolus feedings in the morning. This may benefit the patient she transitioned to long-term care. - Switch to glucerna as pt. HgA1c 6.5 - Dietitian recommends Glucerna 1.5 360 mls at B, L D nad HS Continue Corby as ordered. New onset DM - HgA1C 6.5 - Insulin S/S. monitor Accu-Cheks. Monitor for hypoglycemia. - Change to Glucerna feedings - BG improved. Will decrease ISS to BID Sacral/Coccyx wound - Continue specialty bed. - Wound care following, wound vac continued. GI Prophylaxis: Pepcid. DVT prophylaxis: SCDs. Coumadin. Discussed with nursing and Dr. Obrien Discharge Planning Case management following. 03/14/17 no accepting facility at this time. Barrier: payer is Medicaid and pt is too expensive with PEG and trach. Possibly can be placed with one or the other but not both. The exam, history, and the medical decision-making described in the above note were completed with the assistance of the mid-level provider. I reviewed and agree with the findings presented. I attest that I had a [id number] encounter with the patient on the same day, and personally performed and documented my assessment and findings in the medical record. Patient awake but nonverbal and not following commands which is her baseline. Meets criteria for sepsis with leukocytosis, heart rate over 90 and respiratory rate over 20. Usual thick creamy trach secretions. Brown catheter changed yesterday. She has a wound VAC draining serosanguineous fluid. Vital signs noted as above. Stable BP. Decreased breath sounds equal in expansion. Trach in place Regular rate and rhythm Vac in place Improved edema Sepsis secondary to CAUTI. Brown has been changed. Previous urine culture grew enterococcus sensitive to ciprofloxacin which will be started. Combined systolic and diastolic heart failure. Improving on entresto and Lasix Octaviano Bennett Mar 20, 2017 08:48 Shahram Obrien MD Mar 20, 2017 13:24
[2017-03-20] MEDS: SODIUM CHLORIDE 0.9% FLUSH 10 ML FLUSH IV FLUSH SCH ×2 (09:00→23:06)
[2017-03-20] MEDS: INSULIN ASPART SUPPLEMENTAL SCALE SQ SCH ×2 (09:00→21:00)
[2017-03-20] MEDS: SODIUM HYPOCHLORITE 0.25% 500 ML BTL TOPICAL SCH (09:00)
[2017-03-20 09:07] LABS: HEMATOCRIT 28.1 % (35.0-46.0); MEAN CELL VOLUME 73.9 FL (80.0-100.0); MEAN CORPUSCULAR HGB CONC 31.1 % (32.0-36.0); PLATELET COUNT 558 TH/MM3 (150-450); RED CELL DISTRIBUTION WIDTH 20.2 % (11.6-17.2); REVIEW FLAG FINAL; WHITE BLOOD COUNT 12.2 TH/MM3 (4.0-11.0)
[2017-03-20 09:16] LABS: INTERNATIONAL NORMALIZED RATIO 2.4 RATIO; PROTHROMBIN TIME - PATIENT 27.1 SEC (9.8-11.6)
[2017-03-20 09:27] LABS: BICARBONATE 31.5 MEQ/L (21.0-32.0); POTASSIUM 3.8 MEQ/L (3.5-5.1)
[2017-03-20] MEDS: JUVEN POWDER 1 PACK G-TUBE SCH ×2 (09:48→21:00)
[2017-03-20] MEDS: BROMOCRIPTINE MESYLATE 2.5 MG TAB OG-TUBE SCH ×2 (10:04→23:05)
[2017-03-20] MEDS: ASCORBIC ACID 500 MG TAB PEG SCH ×2 (10:04→23:05)
[2017-03-20] MEDS: FERROUS SULFATE 300 MG /5ML UDC PEG SCH ×2 (10:04→23:05)
[2017-03-20] MEDS: ATORVASTATIN 40 MG TAB G-TUBE SCH (10:05)
[2017-03-20] MEDS: carBAMazepine SUSP 200 MG/10 ML UDC PEG SCH ×2 (10:05→23:05)
[2017-03-20] MEDS: FOLIC ACID 1 MG TAB OG-TUBE SCH (10:05)
[2017-03-20] MEDS: SACUBITRIL/VALSARTAN 24 MG-26 MG TAB PEG SCH ×2 (10:05→23:05)
[2017-03-20] MEDS: FAMOTIDINE 20 MG TAB NG SCH ×2 (10:05→23:05)
[2017-03-20] MEDS: FUROSEMIDE 20 MG/2 ML VIAL IV PUSH SCH (10:06)
[2017-03-20] MEDS: levETIRAcetam 500 MG TAB PO SCH ×2 (10:13→23:05)
[2017-03-20] MEDS: SENNOSIDES SYRUP 8.8 MG/5 ML CUP G-TUBE SCH ×2 (10:14→23:05)
[2017-03-20] MEDS: LACTULOSE SYRUP 20 GM/30 ML CUP G-TUBE SCH ×3 (10:14→17:42)
[2017-03-20] MEDS: METOPROLOL TARTRATE 25 MG TAB G-TUBE SCH ×2 (10:14→23:05)
[2017-03-20] MEDS: POTASSIUM CHLORIDE 20 MEQ PWD PACKET NG SCH (10:14)
[2017-03-20] MEDS: POVIDONE IODINE 10% OINT 30 GM TUBE TOPICAL SCH (10:29)
--- NOTE | 2017-03-20 12:03 | RADRPT ---
EXAM DATE/TIME: 03/20/2017 11:37 [facility] COMPARISON: CHEST SINGLE AP, February 01, 2017, 8:45. INDICATIONS : Congestion. MEDICAL HISTORY : Myocardial infarction. Stroke. Seizures. Hypertension. SURGICAL HISTORY : None. ENCOUNTER: Initial ACUITY: 1 day PAIN SCORE: Non-responsive. LOCATION: Bilateral chest FINDINGS: A single AP portable semierect view of the chest was obtained and again demonstrates the tracheostomy tube in place. Heart size remains mildly prominent with no confluent infiltrates or effusions. Multi ple overlying electrical leads and oxygen tubing are present. The bony thorax remains intact. CONCLUSION: Stable appearance with no acute cardiopulmonary disease. Lenny Kerns MD on March 20, 2017 at 12:00 Board Certified Radiologist. This report was verified electronically.
[2017-03-20] MEDS: CIPROFLOXACIN 400 MG PREMIX 200 ML IV SCH (13:51)
--- NOTE | 2017-03-20 13:55 | HHI.PR ---
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 Mod amount of trach secretions opens eyes, does't follow Levsin helps Objective Vital Signs Vital Signs Date Time Temp Pulse Resp B/P Pulse Ox O2 Delivery O2 Flow Rate FiO2 03/20/17 12:22 98.8 95 22 115/58 100 03/20/17 10:34 100 T-Piece 7.00 28 03/20/17 08:30 98.9 93 22 134/62 100 03/20/17 03:56 97.6 85 18 98/62 100 03/20/17 00:00 98.2 85 18 99/57 100 03/19/17 23:23 84 03/19/17 23:23 100 T-Piece 7.00 28 03/19/17 21:57 100 T-piece 7.00 28 03/19/17 21:54 100 T-piece 7.00 28 03/19/17 20:57 97.5 87 18 104/58 100 03/19/17 19:20 100 T-Piece 5.00 28 03/19/17 16:00 97.7 83 20 107/50 100 I/O 03/19/17 03/19/17 03/19/17 03/20/17 03/20/17 03/20/17 06:59 14:59 22:59 06:59 14:59 22:59 Intake Total 380 ml 100 ml 563 ml 1020 ml Output Total 500 ml 75 ml Balance -120 ml 25 ml 563 ml 1020 ml Tube Feeding 380 ml 563 ml 720 ml Tube Irrigant 50 ml Other 100 ml 250 ml Output Urine Total 500 ml 75 ml Tube Feeding Residual Discard 0 ml # Bowel Movements 1 1 Result Diagram: 03/20/17 0844 03/20/17 0844 Objective Remarks GENERAL: MBMN WF, on Trach collar SKIN: Warm and dry. HEAD: Normocephalic. EYES: No scleral icterus. No injection or drainage. NECK: Supple, trachea midline. No JVD or lymphadenopathy. has trach CARDIOVASCULAR: Regular rate and rhythm without murmurs, gallops, or rubs. RESPIRATORY: Breath sounds equal bilaterally. No accessory muscle use. GASTROINTESTINAL: Abdomen soft, non-tender, nondistended. has PEG MUSCULOSKELETAL: No cyanosis, or edema. BACK: Nontender without obvious deformity. No CVA tenderness. A/P Assessment and Plan RF, S/P Trach CVA Arango arango disease CAD COPD SZ disorder PLAN: Aerosol nebs Cont trach collar supplement 02, keep sat >90% Trach suction prn. DW RN at BS. TF Cont Levsin. Vernon Marx MD Mar 20, 2017 13:55
[2017-03-20] MEDS: WARFARIN SOD 10 MG TAB PEG SCH (16:18)
[2017-03-20] MEDS: RESP: ALBUTEROL 2.5 MG/IPRATROPIUM 0.5 MG NEB (SCH) NEB ×2 (17:05→22:11)
[2017-03-21] VITALS (35 sets, daily range): BP systolic 96–156; BP diastolic 56–77; PULSE 78–150; RESP 18–20; TEMP 97.8–99.2; O2SAT 92–100
[2017-03-21] MEDS: HYOSCYAMINE SOLN 0.125 MG/ML 15 ML BTL G-TUBE SCH ×4 (00:35→17:26)
[2017-03-21] MEDS: CIPROFLOXACIN 400 MG PREMIX 200 ML IV SCH ×2 (00:35→13:31)
[2017-03-21] MEDS: METOPROLOL TARTRATE 5 MG/5 ML VIAL IV PUSH ONE ×2 (02:17→02:21)
[2017-03-21] MEDS ORDERED: METOPROLOL TARTRATE 5 MG/5 ML VIAL IV PUSH PRN (02:30)
--- NOTE | 2017-03-21 02:41 | HHI.PR ---
Addendum to Inpatient Note Addendum Reason: Additional Documentation Additional Information I was contacted by nurse at 0137 because patient had been sustaining a heart rate greater than 144 over 20 minutes duration; I requested stat 12-lead EKG and an updated set of vitals. Temperature 98.9, pulse 150, respiratory rate 20 , blood pressure 104/58, pulse oximetry 100%. I had the nurse call a [facility] so that we could have a nurse available to push rate control medications. I placed an order for BMP, CBC, and magnesium to be drawn stat. The patient was seen and evaluated, she is lying in bed with her eyes open but does not follow commands and is nonverbal. Twelve-lead EKG is reviewed - it looks like atrial fibrillation with rapid ventricular response. Metoprolol 5 mg IV push ordered. The patient's heart rate was 130 following first dose of Metoprolol. I ordered a transfer to [facility] with an additional dose of metoprolol 5 mg IV ordered. We'll await results of labs. . Kierra Gonzales Mar 21, 2017 02:41
[2017-03-21 02:42] LABS: BASOPHIL # 0.1 TH/MM3 (0-0.2); BASOPHIL % 0.7 % (0.0-2.0); EOSINOPHIL # 0.1 TH/MM3 (0-0.4); EOSINOPHIL % 0.8 % (0.0-4.0); HEMATOCRIT 27.6 % (35.0-46.0); HEMO FLAGS DIFF FINAL; LYMPH % 11.4 % (9.0-44.0); LYMPHOCYTE # 1.3 TH/MM3 (1.0-4.8); MEAN CELL VOLUME 74.3 FL (80.0-100.0); MEAN CORPUSCULAR HEMOGLOBIN 23.5 PG (27.0-34.0); MEAN CORPUSCULAR HGB CONC 31.7 % (32.0-36.0); MONO % 8.5 % (0.0-8.0); NEUT % 78.6 % (16.0-70.0); PLATELET COUNT 519 TH/MM3 (150-450); RED BLOOD COUNT 3.72 MIL/MM3 (4.00-5.30); RED CELL DISTRIBUTION WIDTH 20.2 % (11.6-17.2); WHITE BLOOD COUNT 11.5 TH/MM3 (4.0-11.0)
--- NOTE | 2017-03-21 02:47 | HHI.PR ---
Addendum to Inpatient Note Additional Information Subjective: Residents paged to evaluate 66 yo F with history respiratory failure s/p trach, CVA, CAD, Jensen Jensen disease, seizure disorder for tachycardia. At time of evaluation patient's HR was 150. Nurses state she has had several episodes of tachycardia but none sustained for this long. Patient is unable to verbalize at baseline. No change in Oxygen requirement. Objective: Vitals: T: 98.9, HR: 150, RR: 20, BP 104/58, O2 sat: 100% on 5 liters Gen: Well nourished patient in NAD, trach connected to wall O2. Patient gaze deviating to the L with noticeable facial and arm twitching. CV: Tachycardic, regular rhythm, no murmurs appreciated Resp: CTAB, moving air well with no wheezes, crackles appreciated ECG obtained showed sinus tachycardia with no ST elevations/depressions or T wave changes Assessment and Plan: 66 yo F with CVA, CAD, Jensen Jensen disease, seizure disorder with sustained tachycardia SVT vs Afib with RVR Giving Metoprolol Tartrate 5mg IV CBC, BMP, Mg ordered by primary team Transfer to [facility] for close monitoring and further rate control if needed Seen and discussed with Dr. Hilda Giraldo,Noe Patino MD R1 Mar 21, 2017 02:47
[2017-03-21 02:50] LABS: PROTHROMBIN TIME - PATIENT 35.2 SEC (9.8-11.6)
[2017-03-21 03:01] LABS: MAGNESIUM 2.3 MG/DL (1.5-2.5); POTASSIUM 4.4 MEQ/L (3.5-5.1)
[2017-03-21] MEDS: RESP: ALBUTEROL 2.5 MG/IPRATROPIUM 0.5 MG NEB (SCH) NEB (03:23)
[2017-03-21] MEDS: CHLORHEXIDINE GLUCONATE 2 % 1 PACK (2 CLOTHS) TOP SCH (04:00)
[2017-03-21] MEDS: FREE WATER G-TUBE SCH ×3 (06:00→21:58)
[2017-03-21] MEDS ORDERED: METOPROLOL TARTRATE 5 MG/5 ML VIAL IV PUSH ONE (07:00)
[2017-03-21] MEDS: CHLORHEXIDINE 0.12% (ORAL KIT) 15 ML CUP MT SCH ×2 (08:00→20:00)
--- NOTE | 2017-03-21 08:20 | HHI.PR ---
Subjective Remarks Follow-up tachycardia. Transfer to [facility] secondary to sustained tachycardia that is post Lopressor 5 g IV 2. Rapid response team/[facility] attended to the patient. Discussed with RN. Chart reviewed. Telemetry shows heart rate over 140. EKG tracing reviewed with probable occipital junctional rhythm versus sinus tachycardia. Echocardiogram shows combined systolic and diastolic dysfunction with pulmonary hypertension, TR and mitral regurgitation Objective Vitals Vital Signs Date Time Temp Pulse Resp B/P Pulse Ox O2 Delivery O2 Flow Rate FiO2 03/21/17 06:35 139 03/21/17 05:24 98 03/21/17 04:53 106 03/21/17 04:15 98.4 138 18 108/70 92 Manual Cuff/Auscultation 03/21/17 03:23 95 T-piece 35 03/21/17 03:00 98 Trach Collar 58 03/21/17 03:00 138 03/21/17 02:18 132 103/74 03/21/17 02:15 137 98/73 03/21/17 02:10 138 109/71 03/21/17 02:00 99.2 150 18 116/74 100 03/21/17 01:50 95 50 03/21/17 01:43 98.9 150 20 104/58 100 03/21/17 01:40 141 03/21/17 00:00 98.2 93 18 156/72 100 03/20/17 23:33 100 T-piece 6.00 28 03/20/17 23:00 96 03/20/17 21:28 98 T-Piece 28 03/20/17 19:30 98.1 94 18 160/70 100 03/20/17 16:33 98.9 91 20 115/62 100 03/20/17 12:22 98.8 95 22 115/58 100 03/20/17 10:34 100 T-Piece 7.00 28 03/20/17 08:30 98.9 93 22 134/62 100 I/O 03/20/17 03/20/17 03/20/17 03/21/17 03/21/17 03/21/17 07:00 15:00 23:00 07:00 15:00 23:00 Intake Total 1020 ml 660 ml 660 ml Output Total 900 ml 400 ml 150 ml Balance 120 ml 260 ml 510 ml Intake Oral 0 ml IV Total 200 ml Tube Feeding 720 ml 360 ml 360 ml Tube Irrigant 50 ml Other 250 ml 100 ml 300 ml Output Urine Total 900 ml 400 ml 150 ml # Bowel Movements 1 Result Diagram: 03/21/17 0235 03/21/17 0235 Imaging Last Impressions Chest X-Ray 03/20/17 0000 Signed Impressions: Service Date/Time: Monday, March 20, 2017 11:37 - CONCLUSION: Stable appearance with no acute cardiopulmonary disease. Lenny Kerns MD Abdomen X-Ray 02/11/17 0000 Signed Impressions: Service Date/Time: Saturday, February 11, 2017 17:52 - CONCLUSION: Minimal colonic distention. Kenneth Frost MD FACR Catheter Change 02/10/17 0000 Signed Impressions: Service Date/Time: February 13:47 - CONCLUSION: Uncomplicated fluoroscopic guided gastrostomy tube replacement. Positioning confirmed. The tube can be used immediately. Nghia Pacheco MD Lower Extremity Ultrasound 02/01/17 0000 Signed Impressions: Service Date/Time: Wednesday, February 01, 2017 13:23 - CONCLUSION: Normal examination. 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 Sami Mccarthy MD Objective Remarks GENERAL: Obese female patient lying in bed, t-collar in place. SKIN: Warm and dry. HEENT: Normocephalic. No scleral icterus. No injection or drainage. No nasal bleeding or discharge. Mucous membranes pink and moist. NECK: Supple. Tracheostomy in place. CARDIOVASCULAR: Tachycardic RESPIRATORY: No accessory muscle use. Coarse breath sounds noted. No wheezing. GASTROINTESTINAL: Abdomen soft, non-tender, nondistended. Normoactive bowel sounds x4. PEG in place. : Brown kevan yellow urine, slightly cloudy. MUSCULOSKELETAL: No obvious deformities. Extremities without clubbing, cyanosis. Improving edema. Hemovac sacrum draining sanguinous fluid. NEUROLOGICAL: Awake Does not follow any commands. No spontaneous movement in upper or lower extremities. Procedures PEG 11/24/2016 Percutaneous tracheostomy. 11/18/2016 Moderate encephalopathy with suggestion of left temporal region cortical irritability. No active seizures. Clinical correlation. Echocardiogram Severe dilated left ventricle. Wall thickness is normal. The left ventricular systolic function is moderately reduced with an estimated ejection fraction in the range of 35-40%. Doppler parameters are consistent with a restrictive left ventricular filling pattern indicative of decreased left ventricular diastolic compliance and increase left atrial pressure (grade 3 diastolic dysfunction). There is severe tricuspid regurgitation. There is severe pulmonary hypertension present ( > 70 mmHg). Severe mitral valve regurgitation. 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 She was was admitted to [facility] emergency department 11/04/16 with difficulty getting her thoughts together. She was found to have multifocal ischemic infarcts in left frontal and parietal regions, right frontal lobe and history of moyamoya disease. She was initially awake and following commands with weakness of RLE and some aphasia. She was transferred to [facility] where he had an cerebral angiogram consistent with moyamoya. There were plans to perform extracranial/ intracranial bypass. However she had a seizure and ended up being intubated for status epilepticus 11/2016 She was found to have a new right frontal infarct area and she was started on Dilantin and Keppra and it was felt that she would not be a candidate for intervention. She has been intubated 9-10 days. Treating team was discussing with family trach/PEG. Family requested transfer back to [place] because they live locally here and wanted her closer to home. Patient remained under critical care medicine until 12/24/2016. Accelerated junctional rhythm versus sinus tachycardia history of A. fib. TSH not suppressed. Electrolytes unremarkable .echocardiogram showing combined systolic and basilar dysfunction, severe TR, MR and pulmonary hypertension. Increase Lopressor to 50 mg twice a day and start Cardizem drip. Consult cardiology Sepsis secondary to see a UTI - UA positive, pending cultures - Continue IV ciprofloxacin - Patient with increase risk for PNA/ UTI secondary to immobility. Patient also with wound vac. Bilateral large frontal CVA Moyamoya Disease Seizure Disorder - Continue Tegretol 200 mg q12h - Follow for seizure activity - Continue Bromocriptine - Tegretol level WNL. - The level 10.2. Resume Keppra at lower dose 1000 mg twice a day. Hyperammonemia: 70 -->47 --> 40 -->39 -->33 - continue Lactulose 30 ml PO TID. - continue to monitor ammonia Mixed Systolic and diastolic heart failure, acute - Continue Lasix 20mg daily - On Entresto - Monitor electrolytes and renal function. Hyponatremia: BMP reviewed. Stable Hypokalemia: Stable - Mag level 2.5 - Potassium replacement - Monitor BMP Anasarca: Improving - Lasix daily Chronic Respiratory Failure Chronic obstructive pulmonary disease Multilobar pneumonia - Pulmonology following - Continue tracheostomy with supplemental oxygen. Maintain O2 sat greater than 92% - Tobramycin completed, course ended on 01/20/17. - Levsin for increased secretions - Wean off O2, possible capping and decannulation Dysphagia Hypoalbuminemia - PEG placed. Continue TF. - Jevity 1.5 through PEG tube with Corby supplementation. - We'll consult dietitian may possibly benefit with overnight feedings and bolus feedings in the morning. This may benefit the patient when she transitions to long-term care. - Switch to glucerna as pt. HgA1c 6.5 - Dietitian recommends Glucerna 1.5 360 mls at B, L D and HS Continue Corby as ordered. New onset DM - HgA1C 6.5 - Insulin S/S. monitor Accu-Cheks. Monitor for hypoglycemia. - Change to Glucerna feedings - BG improved. Will decrease ISS to BID Sacral/Coccyx wound - Continue specialty bed. - Wound care following, wound vac continued. GI Prophylaxis: Pepcid. DVT prophylaxis: SCDs. Coumadin. Discharge Planning Case management following. 03/14/17 no accepting facility at this time. Barrier: payor is Medicaid and pt is too expensive with PEG and trach. Possibly can be placed with one or the other but not both. Patient is critical and will need to be monitored closely CIC on IV Cardizem drip. Hi likelihood of decompensation Critical care time spent 35 minutes Shahram Obrien MD Mar 21, 2017 08:20
[2017-03-21] MEDS: POVIDONE IODINE 10% OINT 30 GM TUBE TOPICAL SCH (09:00)
[2017-03-21] MEDS: INSULIN ASPART SUPPLEMENTAL SCALE SQ SCH ×2 (09:00→21:00)
[2017-03-21] MEDS: SODIUM HYPOCHLORITE 0.25% 500 ML BTL TOPICAL SCH (09:00)
[2017-03-21] MEDS ORDERED: DILTIAZEM INJ 125 MG in SODIUM CHLORIDE 0.9% INJ 100 ML IV SCH (09:00)
[2017-03-21] MEDS: METOPROLOL TARTRATE 50 MG TAB G-TUBE SCH ×3 (09:00→21:56)
[2017-03-21] MEDS: LACTULOSE SYRUP 20 GM/30 ML CUP G-TUBE SCH ×3 (09:00→17:25)
[2017-03-21] MEDS ORDERED: RESP: ALBUTEROL 0.63 MG/3 ML NEB (PRN) NEB (09:15)
[2017-03-21] MEDS: ASCORBIC ACID 500 MG TAB PEG SCH ×2 (09:28→11:02)
[2017-03-21] MEDS: RESP: IPRATROPIUM 0.5 MG/2.5 ML NEB NEB SCH ×3 (10:59→20:59)
[2017-03-21] MEDS: FUROSEMIDE 20 MG/2 ML VIAL IV PUSH SCH (10:59)
[2017-03-21] MEDS: RESP: ALBUTEROL 0.63 MG/3 ML NEB (SCH) NEB ×3 (10:59→20:00)
[2017-03-21] MEDS: SENNOSIDES SYRUP 8.8 MG/5 ML CUP G-TUBE SCH ×2 (11:00→21:57)
[2017-03-21] MEDS: SACUBITRIL/VALSARTAN 24 MG-26 MG TAB PEG SCH ×2 (11:02→21:57)
[2017-03-21] MEDS: ATORVASTATIN 40 MG TAB G-TUBE SCH (11:02)
[2017-03-21] MEDS: BROMOCRIPTINE MESYLATE 2.5 MG TAB OG-TUBE SCH ×2 (11:02→21:56)
[2017-03-21] MEDS: carBAMazepine SUSP 200 MG/10 ML UDC PEG SCH ×2 (11:02→21:58)
[2017-03-21] MEDS: FAMOTIDINE 20 MG TAB NG SCH ×2 (11:03→21:57)
[2017-03-21] MEDS: FOLIC ACID 1 MG TAB OG-TUBE SCH (11:03)
[2017-03-21] MEDS: POTASSIUM CHLORIDE 20 MEQ PWD PACKET NG SCH (11:03)
[2017-03-21] MEDS: SODIUM CHLORIDE 0.9% FLUSH 10 ML FLUSH IV FLUSH SCH ×2 (11:03→21:00)
[2017-03-21] MEDS: FERROUS SULFATE 300 MG /5ML UDC PEG SCH ×2 (13:18→21:58)
--- NOTE | 2017-03-21 15:05 | HHI.HCPN ---
Reason for visit a. To assist with evaluation and management of symptoms including: encephalopathy, seizure, dyspnea, weakness b. To assist medical decision maker(s) with: better understanding of current medical conditions; weighing benefits/burdens of medical treatment options; making medical treatment decisions. . (Yuridia Almeida) Subjective/Interval History Pt seen to follow up with family regarding goals as she has had recent change in condition, transfer to cardiac unit. 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 Cardiology consult is pending. EKG noted for junctional rhythm vs sinus tach. Pt w hx afib/RVR, prior ECHO= combined systolic and diastolic dysfunction with pulmonary hypertension, TR and mitral regurgitation. She has remained minimally responsive, eyes open, tracks and may follow commands at times for blinking per OT following. Still no purposeful/active movement of extremities. OT following for ROM. Tolerating tube feeds, having bowel movements. Urine from 03/19 positive Klebsiella pneumonia.Cipro added. Blood cultures from 03/20 no growth x1 day. Remains on T piece to tracheostomy FiO2 2850 % fio2. CXR from overnight=Stable appearance with no acute cardiopulmonary disease. Wound care continues to follow for wound to right buttock, as well as significant wound to coccyx with wound VAC in place. Patient seen in room no visitors present. Heart rate at time of my exam regular , rate controlled 100. Patient with eyes open tracks examiner left to right. She does not follow commands for me to stick out tongue, smile, or otherwise move her face or extremities. No apparent distress. D/w primary RN Amanda. . Family/friend interactions Following exam call to Dtr Danita. Updated on transfer, change in condition, current assessment/treatments in place. Review recent diagnostics. All questions answered, no changed in treatment goals at this time. She is appreciative of update. . (Yuridia Almeida) Advance Directives Living Will: Never completed Health Care Surrogate: Never completed Durable Power of Director Of Business Services: Never completed (Yuridia Almeida) Advance Directive Specifics Health Care Surrogate(s): No known written advance directives. Patient currently incapacitated to make her healthcare decisions. According to [place] statutes health care proxy decision-making falls to the majority of adult children. Patient has 3 children. . (Yuridia Almeida) Objective Vital Signs Date Time Temp Pulse Resp B/P Pulse Ox O2 Delivery O2 Flow Rate FiO2 03/21/17 11:32 99.0 92 20 96/56 99 03/21/17 08:25 98 T-piece 50 03/21/17 08:25 98 T-piece 50 03/21/17 08:00 99.1 144 20 102/63 100 03/21/17 08:00 99.1 144 20 102/63 100 03/21/17 07:00 144 03/21/17 06:35 139 03/21/17 05:24 98 03/21/17 04:53 106 03/21/17 04:15 98.4 138 18 108/70 92 Manual Cuff/Auscultation 03/21/17 03:23 95 T-piece 35 03/21/17 03:00 98 Trach Collar 58 03/21/17 03:00 138 03/21/17 02:18 132 103/74 03/21/17 02:15 137 98/73 03/21/17 02:10 138 109/71 03/21/17 02:00 99.2 150 18 116/74 100 03/21/17 01:50 95 50 03/21/17 01:43 98.9 150 20 104/58 100 03/21/17 01:40 141 03/21/17 00:00 98.2 93 18 156/72 100 03/20/17 23:33 100 T-piece 6.00 28 03/20/17 23:00 96 03/20/17 21:28 98 T-Piece 28 03/20/17 19:30 98.1 94 18 160/70 100 03/20/17 16:33 98.9 91 20 115/62 100 Intake & Output 03/21/17 03/21/17 07:00 19:00 Intake Total 660 ml Output Total 550 ml Balance 110 ml Intake Oral 0 ml Tube Feeding 360 ml Other 300 ml Output Urine Total 550 ml Physical Exam CONSTITUTIONAL/GENERAL: Eyes open, tracks examiner, no apparent distress TUBES/LINES/DRAINS: Peripheral IV RT upper extremity, Tracheostomy, PEG, Brown, SCDs, multipodus boots, splint rt arm CARDIOVASCULAR: regular rate and rhythm, no murmur. RESPIRATORY/CHEST: trach midline. Symmetric, unlabored respirations via trach to 50% FIO2 on T piece . Clear to auscultation. GASTROINTESTINAL: Abdomen soft, nondistended. Bowel sounds active. +PEG LUQ site asymptomatic, +TF infusing GENITOURINARY: Without palpable bladder distension. Brown catheter in place- clear yellow urine. NEUROLOGICAL: Eyes open, tracks examiner. Does not follow commands. PSYCHIATRIC: limited assess due to clinical condition-- no signs of anxiety or distress . (Yuridia Almeida) Diagnostic Tests Laboratory Laboratory Tests Test 03/19/17 03/19/17 03/20/17 03/21/17 07:55 14:25 08:44 02:35 White Blood Count 11.9 TH/MM3 12.2 TH/MM3 11.5 TH/MM3 (4.0-11.0) (4.0-11.0) (4.0-11.0) Red Blood Count 3.63 MIL/MM3 3.80 MIL/MM3 3.72 MIL/MM3 (4.00-5.30) (4.00-5.30) (4.00-5.30) Hemoglobin 8.7 GM/DL 8.7 GM/DL 8.8 GM/DL (11.6-15.3) (11.6-15.3) (11.6-15.3) Hematocrit 26.9 % 28.1 % 27.6 % (35.0-46.0) (35.0-46.0) (35.0-46.0) Mean Corpuscular Volume 74.0 FL 73.9 FL 74.3 FL (80.0-100.0) (80.0-100.0) (80.0-100.0) Mean Corpuscular Hemoglobin 24.1 PG 23.0 PG 23.5 PG (27.0-34.0) (27.0-34.0) (27.0-34.0) Mean Corpuscular Hemoglobin 32.5 % 31.1 % 31.7 % Concent (32.0-36.0) (32.0-36.0) (32.0-36.0) Red Cell Distribution Width 20.0 % 20.2 % 20.2 % (11.6-17.2) (11.6-17.2) (11.6-17.2) Platelet Count 532 TH/MM3 558 TH/MM3 519 TH/MM3 (150-450) (150-450) (150-450) Mean Platelet Volume 7.2 FL 6.7 FL 6.8 FL (7.0-11.0) (7.0-11.0) (7.0-11.0) Neutrophils (%) (Auto) 79.6 % 78.6 % (16.0-70.0) (16.0-70.0) Lymphocytes (%) (Auto) 11.8 % 11.4 % (9.0-44.0) (9.0-44.0) Monocytes (%) (Auto) 6.5 % (0.0-8.0) 8.5 % (0.0-8.0) Eosinophils (%) (Auto) 1.5 % (0.0-4.0) 0.8 % (0.0-4.0) Basophils (%) (Auto) 0.6 % (0.0-2.0) 0.7 % (0.0-2.0) Neutrophils # (Auto) 9.4 TH/MM3 9.0 TH/MM3 (1.8-7.7) (1.8-7.7) Lymphocytes # (Auto) 1.4 TH/MM3 1.3 TH/MM3 (1.0-4.8) (1.0-4.8) Monocytes # (Auto) 0.8 TH/MM3 1.0 TH/MM3 (0-0.9) (0-0.9) Eosinophils # (Auto) 0.2 TH/MM3 0.1 TH/MM3 (0-0.4) (0-0.4) Basophils # (Auto) 0.1 TH/MM3 0.1 TH/MM3 (0-0.2) (0-0.2) CBC Comment DIFF FINAL DIFF FINAL Differential Comment Prothrombin Time 21.4 SEC 27.1 SEC 35.2 SEC (9.8-11.6) (9.8-11.6) (9.8-11.6) Prothromb Time International 1.9 RATIO 2.4 RATIO 3.0 RATIO Ratio Sodium Level 133 MEQ/L 131 MEQ/L 131 MEQ/L (136-145) (136-145) (136-145) Potassium Level 4.3 MEQ/L 3.8 MEQ/L 4.4 MEQ/L (3.5-5.1) (3.5-5.1) (3.5-5.1) Chloride Level 94 MEQ/L 93 MEQ/L 92 MEQ/L (98-107) (98-107) (98-107) Carbon Dioxide Level 29.9 MEQ/L 31.5 MEQ/L 31.0 MEQ/L (21.0-32.0) (21.0-32.0) (21.0-32.0) Anion Gap 9 MEQ/L (5-15) 7 MEQ/L (5-15) 8 MEQ/L (5-15) Blood Urea Nitrogen 24 MG/DL (7-18) 28 MG/DL (7-18) 33 MG/DL (7-18) Creatinine 0.43 MG/DL 0.38 MG/DL 0.47 MG/DL (0.50-1.00) (0.50-1.00) (0.50-1.00) Estimat Glomerular Filtration 148 ML/MIN 170 ML/MIN 133 ML/MIN Rate (>89) (>89) (>89) Random Glucose 109 MG/DL 94 MG/DL 117 MG/DL (74-106) (74-106) (74-106) Calcium Level 9.2 MG/DL 8.9 MG/DL 8.6 MG/DL (8.5-10.1) (8.5-10.1) (8.5-10.1) Ammonia 33 MCMOL/L (11-32) Urine Color YELLOW (YELLW/STRAW) Urine Turbidity CLEAR (CLEAR) Urine pH 7.0 (5.0-8.5) Urine Specific [place] 1.026 (1.002-1.035) Urine Protein 30 mg/dL (NEG-TRACE) Urine Glucose (UA) NEG mg/dL (NEG) Urine Ketones NEG mg/dL (NEG) Urine Occult Blood NEG (NEG) Urine Nitrite NEG (NEG) Urine Bilirubin NEG (NEG) Urine Urobilinogen 4.0 MG/DL (LESS THAN 2.0) Urine Leukocyte Esterase MOD (NEG) Urine RBC 4 /hpf (0-3) Urine WBC 19 /hpf (0-5) Urine Bacteria RARE /hpf (NONE) Microscopic Urinalysis Comment CATH-CULTURE IND Magnesium Level 2.3 MG/DL (1.5-2.5) Free Thyroxine 1.25 NG/DL (0.76-1.46) Thyroid Stimulating Hormone 4.720 uIU/ML 3rd Gen (0.358-3.740) (Yuridia Almeida) Result Diagram: 03/21/17 0235 03/21/17 0235 Microbiology Microbiology Date/Time Procedure Status Source Growth 03/19/17 14:25 Urine Culture - Preliminary Resulted Urine Catheterized Urine Klebsiella Pneumoniae Gram Positive Cocci 03/20/17 13:12 Aerobic Blood Culture - Preliminary Resulted Blood Peripheral NO GROWTH IN 1 DAY 03/20/17 13:12 Anaerobic Blood Culture - Preliminary Resulted Blood Peripheral NO GROWTH IN 1 DAY 03/20/17 13:20 Aerobic Blood Culture - Preliminary Resulted Blood Peripheral NO GROWTH IN 1 DAY 03/20/17 13:20 Anaerobic Blood Culture - Preliminary Resulted Blood Peripheral NO GROWTH IN 1 DAY 03/21/17 02:40 Gram Stain - Final Resulted Sputum Endotracheal 03/21/17 02:40 Sputum Culture Resulted Sputum Endotracheal Pending Imaging Last Impressions Chest X-Ray 03/20/17 0000 Signed Impressions: Service Date/Time: Monday, March 20, 2017 11:37 - CONCLUSION: Stable appearance with no acute cardiopulmonary disease. Lenny Kerns MD Abdomen X-Ray 02/11/17 0000 Signed Impressions: Service Date/Time: Saturday, February 11, 2017 17:52 - CONCLUSION: Minimal colonic distention. Kenneth Frost MD FACR Catheter Change 02/10/17 0000 Signed Impressions: Service Date/Time: February 13:47 - CONCLUSION: Uncomplicated fluoroscopic guided gastrostomy tube replacement. Positioning confirmed. The tube can be used immediately. Nghia Pacheco MD Lower Extremity Ultrasound 02/01/17 0000 Signed Impressions: Service Date/Time: Wednesday, February 01, 2017 13:23 - CONCLUSION: Normal examination. 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 Sami Mccarthy MD Procedures 11/22 - PEG placement 11/30 - tracheostomy (Yuridia Almeida) Assessment and Plan Disease Oriented Problem List: (1) CVA (cerebral vascular accident) (2) Moyamoya disease (3) Seizure Comment: On Keppra . (4) Generalized weakness Symptom Scale: (1) Seizure 0-10 Scale: Unable to quantify (2) Generalized weakness 0-10 Scale: Unable to quantify (3) Dyspnea 0-10 Scale: Unable to quantify (4) Constipation 0-10 Scale: Unable to quantify (5) Encephalopathy 0-10 Scale: Unable to quantify Pertinent Non-Medical Issues Psychosocial: Single. Has 2 daughters and one son. Spiritual: unknown. Legal: Patient is incapacitated to make healthcare decisions. No known written advanced directives. According to [place] Statutes, health care proxy decision making falls to majority of adult children. Patient has 2 daughters (Marcelo Joyce) and 1 son (Dwight). Ethical issues impacting care: No known concerns at this time. . Important Contacts * Maria Del Carmen Rivas, daughter: [phone] * Marcelo Rivas, daughter: [phone] * Dwight Rivas, son: [phone] . Prognosis MRI/EEG reviewed by neurology, prognosis felt to be poor, infarct noted to be huge. Repeat MRI done 12/[address] Flores and he feels that she may regain some ability to speak but does note that the infarct was a huge right frontal CVA and increased size of the left frontal CVA. EEG showed some left "sharps" and his recommendation was to continue Keppra. Prognosis remains poor for meaningful recovery in light of the most current studies, current clinical assessment. Code Status: Full Code Plan * Patient is incapacitated to make healthcare decisions. No known written advanced directives. According to [place] Statutes, health care proxy decision making falls to majority of adult children. Patient has 2 daughters (Marcelo Joyce) and 1 son (Dwight). * CODE STATUSFULL CODE * GOALS: Goals have been established as aggressive. There have been differing opinions between the 2 daughters regarding DNR status ; they would continue full CODE STATUS until the family could reach a consensus. Palliative available as needed if there is a change in condition/to revisit goals with family as needed. seen 03/21/17 : Spoke w aliyah Joyce, update provided , goals remain aggressive. SYMPTOMS: * Seizure: hx seizures 2/2 CVA; EEG showed "left sharps" and was continued per neurology. She remains on Keppra, no recent seizures reported. Neuro cont to follow. Tegratol added by neuro. * Weakness: due to prolonged hospital course, bilateral infarcts. Not regaining any purposeful or spontaneous movements as of yet. PT continues to follow working with bed mobility requiring maximum assistance, not demonstrating any participation. Placement is pending-- difficult placement due to trach AND peg tube. Case management following. * Dyspnea: Off sedation. tolerating T Piece. . + some beige secretions req . sx. O2 sats stable. No signs of tachypnea, or dyspnea. She remains at risk for complications due to severe mitral regurgitation, tracheostomy and immobility. * Encephalopathy: some alertness w tracking. not following commands. Ammonia level fluctuates, 33 last weekend. +on lactulose TID. Dr. Flores following. Repeat MRI with no changes. recent repeat eeg= no seizure, + mod to severe encephalopathy Palliative care has established goals with pt family. Palliative available PRN for any changes in condition for clarification of goals of treatment / weighing benefits/burdens of treatment options, or for any symptoms of palliative concern. . (Yuridia Almeida) Attestation To help prompt me to consider important information that might be impacting today's encounter and assessment, information from prior notes written by myself or my colleagues may have been "brought forward" into today's note. My signature on this note, however, is an attestation that I personally performed the exam, history, and/or decision-making noted today, and, unless otherwise indicated, the interactions with patient, family, and staff as well as the review of records all occurred today. I also attest that the listed assessment and stated plan reflect my best clinical judgment today based on the combination of historical information, prior notes, and today's exam/ interactions. When time spent is documented, it refers only to time spent today by the signer, or if indicated, combined time spent today by collaborating physician/nurse practitioner. (Yuridia Almeida) Attestation Discussed with JAYLA, agree with assessment and plan (James Isabel MD) Yuridia Almeida Mar 21, 2017 15:05 James Isabel MD Mar 24, 2017 15:07
[2017-03-21 16:42] LABS: INDIRECT BILIRUBIN 0.2 MG/DL (0.0-0.8); TOTAL BILIRUBIN ADULT 0.5 MG/DL (0.2-1.0)
--- NOTE | 2017-03-21 16:51 | EKG ---
Date Performed: 03/21/2017 Time Performed: 01:57:24 PTAGE: 66 years EKG: Probable accelerated junctional rhythm. Left axis deviation Extensive infarct - age undeter mined Abnormal ECG PREVIOUS TRACING : 03/06/2017 11.35 Compared to prior tracing no significant change DOCTOR: Cezar Bean Interpretating Date/Time 03/21/2017 16:48:32
--- NOTE | 2017-03-21 16:52 | EKG ---
Date Performed: 03/21/2017 Time Performed: 06:55:50 PTAGE: 66 years EKG: Probable accelerated junctional rhythm Left axis deviation rSr'(V1) - probable normal varia nt Extensive infarct - age undetermined Abnormal ECG PREVIOUS TRACING : 03/21/17 @01.57 DOCTOR: Cezar Bean Interpretating Date/Time 03/21/2017 16:49:11
--- NOTE | 2017-03-21 18:43 | HHI.PR ---
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 Mod amount of trach secretions opens eyes, does't follow Tr to [facility] due to Techcardia Was on cardiazem drip, dc'd now Objective Vital Signs Vital Signs Date Time Temp Pulse Resp B/P Pulse Ox O2 Delivery O2 Flow Rate FiO2 03/21/17 18:00 88 03/21/17 17:00 80 03/21/17 16:22 98 T-piece 50 03/21/17 16:22 98 T-piece 50 03/21/17 16:08 97.8 81 18 107/56 99 03/21/17 16:00 78 03/21/17 15:00 80 03/21/17 14:00 80 03/21/17 13:00 90 03/21/17 12:00 88 03/21/17 11:32 99.0 92 20 96/56 99 03/21/17 11:00 92 03/21/17 10:00 140 03/21/17 09:00 142 03/21/17 09:00 99 Trach Collar 58 03/21/17 08:25 98 T-piece 50 03/21/17 08:25 98 T-piece 50 03/21/17 08:00 99.1 144 20 102/63 100 03/21/17 08:00 144 03/21/17 08:00 99.1 144 20 102/63 100 03/21/17 07:00 144 03/21/17 06:35 139 03/21/17 05:24 98 03/21/17 04:53 106 03/21/17 04:15 98.4 138 18 108/70 92 Manual Cuff/Auscultation 03/21/17 03:23 95 T-piece 35 03/21/17 03:00 98 Trach Collar 58 03/21/17 03:00 138 03/21/17 02:18 132 103/74 03/21/17 02:15 137 98/73 03/21/17 02:10 138 109/71 03/21/17 02:00 99.2 150 18 116/74 100 03/21/17 01:50 95 50 03/21/17 01:43 98.9 150 20 104/58 100 03/21/17 01:40 141 03/21/17 00:00 98.2 93 18 156/72 100 03/20/17 23:33 100 T-piece 6.00 28 03/20/17 23:00 96 03/20/17 21:28 98 T-Piece 28 03/20/17 19:30 98.1 94 18 160/70 100 I/O 03/20/17 03/20/17 03/20/17 03/21/17 03/21/17 03/21/17 07:00 15:00 23:00 07:00 15:00 23:00 Intake Total 1020 ml 660 ml 660 ml 1380 ml Output Total 900 ml 400 ml 150 ml 880 ml Balance 120 ml 260 ml 510 ml 500 ml Intake Oral 0 ml 1180 ml IV Total 200 ml 200 ml Tube Feeding 720 ml 360 ml 360 ml Tube Irrigant 50 ml Other 250 ml 100 ml 300 ml Output Urine Total 900 ml 400 ml 150 ml 880 ml # Bowel Movements 1 Result Diagram: 03/21/175 03/21/17234 Objective Remarks GENERAL: MBMN WF, on Trach collar SKIN: Warm and dry. HEAD: Normocephalic. EYES: No scleral icterus. No injection or drainage. NECK: Supple, trachea midline. No JVD or lymphadenopathy. has trach CARDIOVASCULAR: Regular rate and rhythm without murmurs, gallops, or rubs. RESPIRATORY: Breath sounds equal bilaterally. No accessory muscle use. GASTROINTESTINAL: Abdomen soft, non-tender, nondistended. has PEG MUSCULOSKELETAL: No cyanosis, or edema. BACK: Nontender without obvious deformity. No CVA tenderness. A/P Assessment and Plan RF, S/P Trach CVA Arango arango disease CAD COPD SZ disorder PLAN: Aerosol nebs Cont trach collar supplement 02, keep sat >90% Trach suction prn. DW RN at BS. TF Cont Levsin. Lopressor for HR controll Vernon Marx MD Mar 21, 2017 18:43
[2017-03-21] MEDS: JUVEN POWDER 1 PACK G-TUBE SCH (21:00)
[2017-03-21] MEDS: levETIRAcetam 500 MG/5 ML UDC NG SCH (21:57)
[2017-03-22] VITALS (29 sets, daily range): BP systolic 107–139; BP diastolic 64–84; PULSE 78–108; RESP 16–20; TEMP 96.9–98.4; O2SAT 92–100
[2017-03-22] MEDS: CIPROFLOXACIN 400 MG PREMIX 200 ML IV SCH ×2 (00:48→13:15)
[2017-03-22] MEDS: HYOSCYAMINE SOLN 0.125 MG/ML 15 ML BTL G-TUBE SCH ×5 (00:49→23:52)
[2017-03-22] MEDS: CHLORHEXIDINE GLUCONATE 2 % 1 PACK (2 CLOTHS) TOP SCH (01:53)
--- NOTE | 2017-03-22 05:14 | EKG ---
Date Performed: 03/21/2017 Time Performed: 11:53:32 PTAGE: 66 years EKG: Baseline artifact present probable Sinus rhythm Left anterior fascicular block Possible inferior infarct - age undetermined Possible anterior infarc t - age undetermined Low QRS voltages in precordial leads Abnormal ECG Compared to the PREVIOUS TRACING rate has decreased PREVIOUS TRACIN03/21/2017 06.55 DOCTOR: Rusty King Interpretating Date/Time 03/22/2017 05:13:28
[2017-03-22] MEDS: FREE WATER G-TUBE SCH ×3 (05:37→21:59)
[2017-03-22 06:45] LABS: AUTOMATED NEUTROPHIL # 6.6 TH/MM3 (1.8-7.7); BASOPHIL # 0.1 TH/MM3 (0-0.2); BASOPHIL % 0.7 % (0.0-2.0); EOSINOPHIL # 0.2 TH/MM3 (0-0.4); EOSINOPHIL % 2.2 % (0.0-4.0); HEMATOCRIT 24.6 % (35.0-46.0); HEMO FLAGS DIFF FINAL; LYMPHOCYTE # 1.3 TH/MM3 (1.0-4.8); MEAN CELL VOLUME 73.3 FL (80.0-100.0); MEAN CORPUSCULAR HEMOGLOBIN 24.2 PG (27.0-34.0); MONO % 9.6 % (0.0-8.0); NEUT % 73.5 % (16.0-70.0); PLATELET COUNT 475 TH/MM3 (150-450); RED BLOOD COUNT 3.35 MIL/MM3 (4.00-5.30); RED CELL DISTRIBUTION WIDTH 19.7 % (11.6-17.2)
[2017-03-22 06:59] LABS: INTERNATIONAL NORMALIZED RATIO 2.3 RATIO; PROTHROMBIN TIME - PATIENT 26.1 SEC (9.8-11.6)
[2017-03-22 07:35] LABS: BICARBONATE 30.3 MEQ/L (21.0-32.0); MAGNESIUM 2.4 MG/DL (1.5-2.5); POTASSIUM 3.8 MEQ/L (3.5-5.1)
[2017-03-22] MEDS: RESP: IPRATROPIUM 0.5 MG/2.5 ML NEB NEB SCH ×4 (07:40→22:17)
[2017-03-22] MEDS: RESP: ALBUTEROL 0.63 MG/3 ML NEB (SCH) NEB ×4 (07:40→22:17)
--- NOTE | 2017-03-22 08:27 | MB ---
cc: BENTLEY LEAL DATE OF CONSULTATION 03/21/2017 REASON FOR CONSULTATION Ms. Rivas is a 65 year-old white female with a history of CVA. She was brought to the hospital in October with speech difficulty and right extremity weakness. 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 She had seizures, status epilepticus. She has been in the hospital since that time. She had tracheostomy. Yesterday she developed narrow complex tachycardia in the 140's. She was otherwise hemodynamically stable. PAST MEDICAL HISTORY 1. Postop coronary disease 2. CVA 3. COPD 4. Hypertension 5. There is a history of hyponatremia and respiratory failure. MEDICATIONS Include: 1. Keppra 2. Albuterol 3. Atrovent 4. Lopressor 50 mg q.12 h 5. Diltiazem IV 6. Cipro 7. Potassium 8. Furosemide 9. Levsin 10. Entresto 11. Lactulose 12. Atorvastatin 13. Senna 14. Iron 15. Vitamin C 16. Arginine 17. Carbamazepine 18. Famotidine ALLERGIES None SOCIAL HISTORY The patient used to drink wine. She has no history of smoking. FAMILY HISTORY Negative for heart disease. REVIEW OF SYSTEMS Otherwise negative. PHYSICAL EXAMINATION Blood pressure is 107/56, pulse 88 and regular. HEENT: Negative. NECK: Neck is positive for tracheostomy tube, +2 carotid upstrokes. No bruits. LUNGS: Clear. HEART: Regular with no murmur, gallop or rub. ABDOMEN: Soft. No bruits. EXTREMITIES: Without edema 1 to 2+ distal pulses. NEUROLOGIC: The patient is awake, but does not follow any commands.. EKG shows narrow complex tachycardia in the 140's. Follow up EKG shows sinus rhythm. LABORATORY ERIC Hemoglobin 8.8, potassium 4.4, creatinine 0.5, AST 42, ALT 39. DIAGNOSIS 1. Narrow complex tachycardia. 2. CVA 3. Seizure 4. Moyamoya disease 5. Respiratory failure 6. Status post tracheostomy 7. COPD 8. Hyponatremia DISPOSITION Ms. Rivas will continue her current medical program with metoprolol 50 mg twice a day per PEG tube. Her heart rate has been controlled with beta-blockers. She will be monitored on telemetry. I will follow her for cardiology as needed during her hospitalization. MD ABRAHAM Hawthorne /6:51 PM /8:10 AM MATTHEW
[2017-03-22] MEDS: INSULIN ASPART SUPPLEMENTAL SCALE SQ SCH ×2 (09:00→22:04)
[2017-03-22] MEDS: POVIDONE IODINE 10% OINT 30 GM TUBE TOPICAL SCH (09:00)
[2017-03-22] MEDS: POTASSIUM CHLORIDE 20 MEQ PWD PACKET NG SCH (09:00)
[2017-03-22] MEDS: JUVEN POWDER 1 PACK G-TUBE SCH ×2 (09:00→21:00)
[2017-03-22] MEDS: BROMOCRIPTINE MESYLATE 2.5 MG TAB OG-TUBE SCH ×2 (09:37→21:57)
[2017-03-22] MEDS: SENNOSIDES SYRUP 8.8 MG/5 ML CUP G-TUBE SCH ×2 (09:37→21:00)
[2017-03-22] MEDS: FERROUS SULFATE 300 MG /5ML UDC PEG SCH ×2 (09:38→21:58)
[2017-03-22] MEDS: levETIRAcetam 500 MG/5 ML UDC NG SCH ×2 (09:38→21:57)
[2017-03-22] MEDS: carBAMazepine SUSP 200 MG/10 ML UDC PEG SCH ×2 (09:38→21:59)
[2017-03-22] MEDS: LACTULOSE SYRUP 20 GM/30 ML CUP G-TUBE SCH ×3 (09:38→18:27)
[2017-03-22] MEDS: ATORVASTATIN 40 MG TAB G-TUBE SCH (09:39)
[2017-03-22] MEDS: ASCORBIC ACID 500 MG TAB PEG SCH ×2 (09:39→21:57)
[2017-03-22] MEDS: FOLIC ACID 1 MG TAB OG-TUBE SCH (09:39)
[2017-03-22] MEDS: FAMOTIDINE 20 MG TAB NG SCH ×2 (09:39→21:58)
[2017-03-22] MEDS: SACUBITRIL/VALSARTAN 24 MG-26 MG TAB PEG SCH ×2 (09:39→22:33)
[2017-03-22] MEDS: METOPROLOL TARTRATE 50 MG TAB G-TUBE SCH ×2 (09:39→21:57)
[2017-03-22] MEDS: SODIUM CHLORIDE 0.9% FLUSH 10 ML FLUSH IV FLUSH SCH ×2 (09:40→22:33)
[2017-03-22] MEDS: FUROSEMIDE 20 MG/2 ML VIAL IV PUSH SCH (09:40)
--- NOTE | 2017-03-22 12:26 | PD.CARD.PN ---
Subjective Subjective Remarks In no distress, poorly responsive Objective Medications Current Medications Medications (Trade) Dose Ordered Sig/Ora Route Start Time Stop Time Status Last Admin (Peridex 0.12% Liq) 15 ml BID@08,20 MT 11/18/16 08:00 03/19/17 20:00 (NS Flush) 2 ml BID IV FLUSH 11/18/16 09:00 03/22/17 09:40 (Morphine Inj) 2 mg Q2H PRN IV 11/18/16 03:30 01/16/17 08:23 (Zofran Inj) 4 mg Q6H PRN IV 11/18/16 03:30 11/26/16 03:20 Miscellaneous Information 1 Q361D XX 11/18/16 03:30 11/18/16 03:30 (Chlorhexidine 2% Cloth) Taper DAILY@04 TOP 11/18/16 04:00 11/14/17 03:59 02/15/17 04:00 (Chlorhexidine 2% Cloth) 3 pack UNSCH PRN TOP 11/18/16 03:30 (Parlodel) 2.5 mg Q12HR OG-TUBE 11/18/16 09:00 03/22/17 09:37 (Folate) 1 mg DAILY OG-TUBE 11/18/16 09:00 03/22/17 09:39 (Dulcolax Supp) 10 mg DAILY PRN RECTAL 12/14/16 15:45 (Pepcid) 20 mg BID NG 12/21/16 21:00 03/22/17 09:39 (TEGretol LIQ) 200 mg Q12HR PEG 01/06/17 09:00 03/22/17 09:38 (Corby Powder) 1 pack BID G-TUBE 01/13/17 09:00 03/22/17 09:00 (Ferrous Sulfate Liq) 300 mg BID PEG 01/26/17 21:00 03/22/17 09:38 (Vitamin C) 500 mg BID PEG 01/26/17 21:00 03/22/17 09:39 ([place] 5-325 Mg) 1 tab Q4H PRN G-TUBE 02/01/17 11:30 03/08/17 21:44 (Tylenol) 650 mg Q6H PRN G-TUBE 02/01/17 09:30 (Lipitor) 40 mg DAILY G-TUBE 02/01/17 09:00 03/22/17 09:39 (Senna Liq) 8.8 mg BID G-TUBE 02/01/17 09:00 03/22/17 09:37 (D50w (Vial) Inj) 25 ml UNSCH PRN IV PUSH 02/01/17 09:15 Glucagon 1 mg 1 mg UNSCH PRN OTHER 02/01/17 09:15 (Coumadin Consult Pharmacy) 0 ml @ 0 mls/hr UNSCH OTHER 02/01/17 09:15 (Dakin'S 0.25% Soln) USE DAILY WITH DRESS... DAILY TOPICAL 02/12/17 18:00 03/18/17 07:29 (Betadine 10% Oint) 1 applic DAILY TOPICAL 02/15/17 09:00 03/18/17 07:29 (Lactulose Liq) 30 ml TID G-TUBE 02/21/17 13:00 03/22/17 09:38 (Zaroxolyn) 5 mg DAILY PEG 03/09/17 09:00 Hold 03/13/17 10:04 (Coumadin) 10 mg DAILY@16 PEG 03/08/17 16:00 03/20/17 16:18 (Entresto 24-26 Mg) 1 tab BID PEG 03/08/17 21:00 03/22/17 09:39 (Free Water) VOLUME OF WATER: ( 300 ) ML Q8HR G-TUBE 03/09/17 14:00 03/22/17 05:37 (Levsin Liq) 0.125 mg Q6H G-TUBE 03/10/17 18:00 03/22/17 12:00 (Lasix Inj) 20 mg DAILY IV PUSH 03/16/17 11:30 03/22/17 09:40 (KCl Powder) 20 meq DAILY NG 03/17/17 09:00 03/22/17 09:00 Insulin Aspart 1 1 BID SQ 03/20/17 21:00 (Cipro 400 Mg Premix) 200 ml @ 200 mls/hr Q12H IV 03/20/17 13:00 04/03/17 12:59 03/22/17 00:48 Metoprolol Tartrate 50 mg 50 mg Q12HR G-TUBE 03/21/17 09:00 03/22/17 09:39 (Cardizem Inj/NS Inj) 125 ml @ 0 mls/hr TITRATE IV 03/21/17 09:00 03/21/17 09:25 (Keppra Liq) 1,000 mg Q12HR NG 03/21/17 21:00 03/22/17 09:38 Vital Signs / I&O Vital Signs Date Time Temp Pulse Resp B/P Pulse Ox O2 Delivery O2 Flow Rate FiO2 03/22/17 09:01 10 Trach Collar 5.00 03/22/17 07:45 99 T-piece 35 03/22/17 07:45 99 T-piece 35 03/22/17 07:01 94 03/22/17 06:11 92 03/22/17 05:00 96 03/22/17 04:00 92 03/22/17 03:00 96.9 92 107/68 99 03/22/17 03:00 103 03/22/17 02:00 100 03/22/17 01:00 90 03/22/17 00:00 90 03/21/17 23:00 97.8 89 97/72 98 03/21/17 23:00 88 03/21/17 22:00 102 03/21/17 21:00 102 03/21/17 21:00 95 T-piece 6.00 35 03/21/17 20:00 88 03/21/17 19:15 Trach Collar 28 03/21/17 19:00 Trach Collar 03/21/17 19:00 100 03/21/17 19:00 98.6 113 121/77 97 03/21/17 18:00 88 03/21/17 17:00 80 03/21/17 16:22 98 T-piece 50 03/21/17 16:22 98 T-piece 50 03/21/17 16:08 97.8 81 18 107/56 99 03/21/17 16:00 78 03/21/17 15:00 80 03/21/17 14:00 80 03/21/17 13:00 90 I/O 03/21/17 03/21/17 03/21/17 03/22/17 03/22/17 03/22/17 07:00 15:00 23:00 07:00 15:00 23:00 Intake Total 660 ml 1380 ml 240 ml Output Total 150 ml 880 ml 600 ml Balance 510 ml 500 ml -360 ml Intake Oral 0 ml 1180 ml 240 ml IV Total 200 ml Tube Feeding 360 ml Other 300 ml Output Urine Total 150 ml 880 ml 600 ml Physical Exam GENERAL: In NAD, poorly responsive SKIN: Warm and dry. HEAD: Normocephalic. EYES: No scleral icterus. No injection or drainage. NECK: Supple, trachea midline. No JVD or lymphadenopathy. Trach in place CARDIOVASCULAR: Regular rate and rhythm without murmurs, gallops, or rubs. RESPIRATORY: Breath sounds equal bilaterally. No accessory muscle use. GASTROINTESTINAL: Abdomen soft, non-tender, nondistended. MUSCULOSKELETAL: No cyanosis, or edema. Laboratory Laboratory Tests Test 03/22/17 05:50 White Blood Count 9.0 TH/MM3 Red Blood Count 3.35 MIL/MM3 Hemoglobin 8.1 GM/DL Hematocrit 24.6 % Mean Corpuscular Volume 73.3 FL Mean Corpuscular Hemoglobin 24.2 PG Mean Corpuscular Hemoglobin 33.0 % Concent Red Cell Distribution Width 19.7 % Platelet Count 475 TH/MM3 Mean Platelet Volume 7.5 FL Neutrophils (%) (Auto) 73.5 % Lymphocytes (%) (Auto) 14.0 % Monocytes (%) (Auto) 9.6 % Eosinophils (%) (Auto) 2.2 % Basophils (%) (Auto) 0.7 % Neutrophils # (Auto) 6.6 TH/MM3 Lymphocytes # (Auto) 1.3 TH/MM3 Monocytes # (Auto) 0.9 TH/MM3 Eosinophils # (Auto) 0.2 TH/MM3 Basophils # (Auto) 0.1 TH/MM3 CBC Comment DIFF FINAL Differential Comment Prothrombin Time 26.1 SEC Prothromb Time International 2.3 RATIO Ratio Sodium Level 129 MEQ/L Potassium Level 3.8 MEQ/L Chloride Level 92 MEQ/L Carbon Dioxide Level 30.3 MEQ/L Anion Gap 7 MEQ/L Blood Urea Nitrogen 29 MG/DL Creatinine 0.33 MG/DL Estimat Glomerular Filtration 201 ML/MIN Rate Random Glucose 108 MG/DL Calcium Level 8.5 MG/DL Magnesium Level 2.4 MG/DL Imaging Last Impressions Chest X-Ray 03/20/17 0000 Signed Impressions: Service Date/Time: Monday, March 20, 2017 11:37 - CONCLUSION: Stable appearance with no acute cardiopulmonary disease. Lenny Kerns MD Abdomen X-Ray 02/11/17 Signed Impressions: Service Date/Time: Saturday, February 11, 2017 17:52 - CONCLUSION: Minimal colonic distention. Kenneth Frost MD FACR Catheter Change 02/10/17 Signed Impressions: Service Date/Time: February 13:47 - CONCLUSION: Uncomplicated fluoroscopic guided gastrostomy tube replacement. Positioning confirmed. The tube can be used immediately. Nghia Pacheco MD Lower Extremity Ultrasound 02/01/17 Signed Impressions: Service Date/Time: Wednesday, February 01, 2017 13:23 - CONCLUSION: Normal examination. Gray Veronica MD Brain MRI 01/06/17 Signed Impressions: Service Date/Time: January 14:19 - CONCLUSION: Continued evolutionary changes of large bilateral frontal lobe infarcts. Sami Mccarthy MD Assessment and Plan Problem List: (1) Narrow complex tachycardia (2) CVA (cerebral vascular accident) (3) Seizure (4) Moyamoya disease (5) Encephalopathy (6) Accelerated essential hypertension (7) Respiratory failure, acute Assessment and Plan Rhythm stable. Continue current program with metoprolol. OK to transfer back to floor. No new cardiac issues. Klaus Panchal MD Mar 22, 2017 12:26
--- NOTE | 2017-03-22 12:44 | HHI.PR ---
Subjective Remarks Follow-up tachycardia. Heart rate controlled on Lopressor off Cardizem drip since yesterday. Discussed with RN okay to transfer back to [facility] floor on telemetry Objective Vitals Vital Signs Date Time Temp Pulse Resp B/P Pulse Ox O2 Delivery O2 Flow Rate FiO2 03/22/17 09:01 10 Trach Collar 5.00 03/22/17 07:45 99 T-piece 35 03/22/17 07:45 99 T-piece 35 03/22/17 07:01 94 03/22/17 06:11 92 03/22/17 05:00 96 03/22/17 04:00 92 03/22/17 03:00 96.9 92 107/68 99 03/22/17 03:00 103 03/22/17 02:00 100 03/22/17 01:00 90 03/22/17 00:00 90 03/21/17 23:00 97.8 89 97/72 98 03/21/17 23:00 88 03/21/17 22:00 102 03/21/17 21:00 102 03/21/17 21:00 95 T-piece 6.00 35 03/21/17 20:00 88 03/21/17 19:15 Trach Collar 28 03/21/17 19:00 Trach Collar 03/21/17 19:00 100 03/21/17 19:00 98.6 113 121/77 97 03/21/17 18:00 88 03/21/17 17:00 80 03/21/17 16:22 98 T-piece 50 03/21/17 16:22 98 T-piece 50 03/21/17 16:08 97.8 81 18 107/56 99 03/21/17 16:00 78 03/21/17 15:00 80 03/21/17 14:00 80 03/21/17 13:00 90 I/O 03/21/17 03/21/17 03/21/17 03/22/17 03/22/17 03/22/17 06:59 14:59 22:59 06:59 14:59 22:59 Intake Total 660 ml 1380 ml 240 ml Output Total 150 ml 880 ml 600 ml Balance 510 ml 500 ml -360 ml Intake Oral 0 ml 1180 ml 240 ml IV Total 200 ml Tube Feeding 360 ml Other 300 ml Output Urine Total 150 ml 880 ml 600 ml Result Diagram: 03/22/17 0550 03/22/17 0550 Objective Remarks GENERAL: Obese female patient lying in bed, t-collar in place. SKIN: Warm and dry. HEENT: Normocephalic. No scleral icterus. No injection or drainage. No nasal bleeding or discharge. Mucous membranes pink and moist. NECK: Supple. Tracheostomy in place. CARDIOVASCULAR: Regular rate and rhythm RESPIRATORY: No accessory muscle use. Coarse breath sounds noted. No wheezing. GASTROINTESTINAL: Abdomen soft, non-tender, nondistended. Normoactive bowel sounds x4. PEG in place. : Brown kevan yellow urine, slightly cloudy. MUSCULOSKELETAL: No obvious deformities. Extremities without clubbing, cyanosis. Improving edema. Hemovac sacrum draining sanguinous fluid. NEUROLOGICAL: Awake Does not follow any commands. No spontaneous movement in upper or lower extremities. Procedures PEG 11/24/2016 Percutaneous tracheostomy. 11/18/2016 Moderate encephalopathy with suggestion of left temporal region cortical irritability. No active seizures. Clinical correlation. Echocardiogram Severe dilated left ventricle. Wall thickness is normal. The left ventricular systolic function is moderately reduced with an estimated ejection fraction in the range of 35-40%. Doppler parameters are consistent with a restrictive left ventricular filling pattern indicative of decreased left ventricular diastolic compliance and increase left atrial pressure (grade 3 diastolic dysfunction). There is severe tricuspid regurgitation. There is severe pulmonary hypertension present ( > 70 mmHg). Severe mitral valve regurgitation. 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 She was was admitted to [facility] emergency department 11/04/16 with difficulty getting her thoughts together. She was found to have multifocal ischemic infarcts in left frontal and parietal regions, right frontal lobe and history of moyamoya disease. She was initially awake and following commands with weakness of RLE and some aphasia. She was transferred to [facility] where he had an cerebral angiogram consistent with moyamoya. There were plans to perform extracranial/ intracranial bypass. However she had a seizure and ended up being intubated for status epilepticus 11/2016 She was found to have a new right frontal infarct area and she was started on Dilantin and Keppra and it was felt that she would not be a candidate for intervention. She has been intubated 9-10 days. Treating team was discussing with family trach/PEG. Family requested transfer back to [place] because they live locally here and wanted her closer to home. Patient remained under critical care medicine until 12/24/2016. Narrow complex tachycardia history of A. fib. TSH not suppressed. Electrolytes unremarkable .echocardiogram showing combined systolic and basilar dysfunction, severe TR, MR and pulmonary hypertension. Rate controlled on Lopressor 50 mg twice a day status post Cardizem drip. Cardiology following Sepsis - UA positive, culture polymicrobial less than 10,000 colonies will discontinue IV ciprofloxacin - Viridans strep in 2 out of 4 bottles. Repeat blood culture in the morning. Consult ID - Patient with increase risk for PNA/ UTI secondary to immobility. Patient also with wound vac. Bilateral large frontal CVA Moyamoya Disease Seizure Disorder - Continue Tegretol 200 mg q12h - Follow for seizure activity - Continue Bromocriptine - Tegretol level WNL. - The level 10.2. Resume Keppra at lower dose 1000 mg twice a day. Hyperammonemia: 70 -->47 --> 40 -->39 -->33 - continue Lactulose 30 ml PO TID. - continue to monitor ammonia Mixed Systolic and diastolic heart failure, acute - Continue Lasix 20mg daily - On Entresto - Monitor electrolytes and renal function. Hyponatremia: Slight drop will monitor consider stopping Tegretol Hypokalemia: Stable - Mag level 2.5 - Potassium replacement - Monitor BMP Anasarca: Improving - Lasix daily Chronic Respiratory Failure Chronic obstructive pulmonary disease Multilobar pneumonia - Pulmonology following - Continue tracheostomy with supplemental oxygen. Maintain O2 sat greater than 92% - Tobramycin completed, course ended on 01/20/17. - Levsin for increased secretions - Wean off O2, possible capping and decannulation Dysphagia Hypoalbuminemia - PEG placed. Continue TF. - Jevity 1.5 through PEG tube with Corby supplementation. - We'll consult dietitian may possibly benefit with overnight feedings and bolus feedings in the morning. This may benefit the patient when she transitions to long-term care. - Switch to glucerna as pt. HgA1c 6.5 - Dietitian recommends Glucerna 1.5 360 mls at B, L D and HS Continue Corby as ordered. New onset DM - HgA1C 6.5 - Insulin S/S. monitor Accu-Cheks. Monitor for hypoglycemia. - Change to Glucerna feedings - BG improved. Will decrease ISS to BID Sacral/Coccyx wound - Continue specialty bed. - Wound care following, wound vac continued. GI Prophylaxis: Pepcid. DVT prophylaxis: SCDs. Coumadin. Discharge Planning Case management following. 03/14/17 no accepting facility at this time. Barrier: payor is Medicaid and pt is too expensive with PEG and trach. Possibly can be placed with one or the other but not both. Shahram Obrien MD Mar 22, 2017 12:44 Shahram Obrien MD Mar 22, 2017 12:44
[2017-03-22] MEDS: SODIUM HYPOCHLORITE 0.25% 500 ML BTL TOPICAL SCH (15:00)
[2017-03-22] MEDS: WARFARIN SOD 10 MG TAB PEG SCH (16:07)
--- NOTE | 2017-03-22 16:36 | PD.WCN.NOT ---
Neg Pressure Wound Therapy Wound Location Wound Location: Sacrum Wound Description Width: Undermining: Circumferential Wound bed appearance: ~80% vascular red non granulating tissue and ~20% bone palpated Periwound appearance: Other (Maceration noted at 9 o'clock while patient was positioned to R side and partial thickness skin loss 4 o'clock) Settings Suction: 125 mmHg, Continuous Intensity: Low Other Information: Bridged Foam type: Black Number of pieces: 1 Additonal Information Patient seen on CIC for wound VAC dressing change to sacrum. Wound VAC dressing changed with the assistance of Stephany MADRIGAL and senior mortgage underwriter. Davon POWELL CIC and PERLA at bedside for assistance in repositioning and support of patient. Wound VAC machine was observed and appeared to be working properly without leaks noted. Patient tube feed placed on hold. Patient was positioned to her R side with maximum assistance.Canister noted with ~400ml dark red to brown drainage.Turned VAC suction off.Removed current VAC dressing in place, foul odor present with dressing removal. Black granufoam was removed and the wound was cleansed with 0.25% Dakins solution as ordered between dressing changes.There is minimal sanguinous and dark brown drainage noted to removed gauze used to cleanse wound.Maceration is noted to periwound at 9 o'clock. Wound margin at 4 o'clock is noted with some full thickness skin loss.Patient repositioned to L side for bridging.Periwound is erythematous where VAC drape and foam were previously bridged. Periwound was sprayed with Cavilon skin prep prior to protect skin from foam with drape being placed over intact skin from periwound up to R lateral upper thigh where trac pad was placed and secured. Black granufoam was cut in a cinnamon roll fashion and inserted into wound using a coiling method and then secured with VAC drape. 1 piece of granufoam was used in all.Wound VAC machine turned on with settings described above. No leaks noted, seal obtained. Placed new ultra sorb pad under patient after VAC dressing change. ANDRE Mays and PERLA at bedside performing care Alma Martinez Mar 22, 2017 16:36
--- NOTE | 2017-03-22 16:47 | HHI.IDPN ---
Subjective Subjective Remarks Ms. Rivas is a 66-year-old female with past medical history significant for stroke who was on warfarin but had discontinued it, prior history of moyamoya disease. With this background patient was admitted to [facility] on November 04, 2016 with history of difficulty getting her thoughts together. She was found to have multifocal nonhemorrhagic infarcts in the left frontal and parietal regions, right frontal lobe and history of moyamoya disease. Review of records it appears that there were plans for extracranial intracranial bypass. However she had a seizure and ended up being intubated for status epilepticus. Subsequently she was found to have a new right frontal infarct and she was started on Dilantin and Keppra and deemed to be a suitable candidate for any further surgical intervention at that point. At the request of the family patient was transferred back to [facility]. At [place] palliative care has been involved and per review of the records it appears that patient is currently full code and patient's family agreed to a trach and PEG tube placement. Upon further review of records it appears that patient isn't being treated for pneumonia due to a fever on November 27 with Zosyn IV and cultures with MSSA and pseudomonas aeruginosa. No reported seizures recently. Neurologically patient opens eyes spontaneously, but remains nonresponsive does not follow any commands. At the time of my evaluation patient is is in the [facility] currently not on any pressors, has a Yates in place. RN reports take white secretions moderate amounts. ID reconsulted for Strep bacteremia. Chart reviewed briefly. No central lines in place or PICC etc,. Has a PIV. No fevers on day of culture order. Minimal if any elevation in WBC which could be circardian change. No neuro change. Has diarrhea but Cdiff negative. Trach site with no e.o infection PEG tube site ok with no e.o infection. Antibiotics Was on Cipro but discontinued. Lines Line sites with no e.o infection. Past Medical History reviewed Allergies: Uncoded Allergies: YES, CAN'T REM. RELAXING MED. (Adverse Reaction, Intermediate, NECK TWISTS TO SIDE, 12/07/09) Objective . Vital Signs Date Time Temp Pulse Resp B/P Pulse Ox O2 Delivery O2 Flow Rate FiO2 03/22/17 13:01 108 03/22/17 12:00 92 03/22/17 11:00 95 03/22/17 10:00 90 03/22/17 09:01 10 Trach Collar 5.00 03/22/17 09:00 92 03/22/17 08:00 90 03/22/17 07:45 99 T-piece 35 03/22/17 07:45 99 T-piece 35 03/22/17 07:01 94 03/22/17 06:11 92 03/22/17 05:00 96 03/22/17 04:00 92 03/22/17 03:00 96.9 92 107/68 99 03/22/17 03:00 103 03/22/17 02:00 100 03/22/17 01:00 90 03/22/17 00:00 90 03/21/17 23:00 97.8 89 97/72 98 03/21/17 23:00 88 03/21/17 22:00 102 03/21/17 21:00 102 03/21/17 21:00 95 T-piece 6.00 35 03/21/17 20:00 88 03/21/17 19:15 Trach Collar 28 03/21/17 19:00 Trach Collar 03/21/17 19:00 100 03/21/17 19:00 98.6 113 121/77 97 03/21/17 18:00 88 03/21/17 17:00 80 03/21/17 03/21/17 03/22/17 15:00 23:00 07:00 Intake Total 1380 ml 240 ml Output Total 880 ml 600 ml Balance 500 ml -360 ml Intake Oral 1180 ml 240 ml IV Total 200 ml Output Urine Total 880 ml 600 ml . Laboratory Tests Test 03/21/17 03/22/17 02:35 05:50 White Blood Count 11.5 TH/MM3 9.0 TH/MM3 Red Blood Count 3.72 MIL/MM3 3.35 MIL/MM3 Hemoglobin 8.8 GM/DL 8.1 GM/DL Hematocrit 27.6 % 24.6 % Mean Corpuscular Volume 74.3 FL 73.3 FL Mean Corpuscular Hemoglobin 23.5 PG 24.2 PG Mean Corpuscular Hemoglobin 31.7 % 33.0 % Concent Red Cell Distribution Width 20.2 % 19.7 % Platelet Count 519 TH/MM3 475 TH/MM3 Mean Platelet Volume 6.8 FL 7.5 FL Neutrophils (%) (Auto) 78.6 % 73.5 % Lymphocytes (%) (Auto) 11.4 % 14.0 % Monocytes (%) (Auto) 8.5 % 9.6 % Eosinophils (%) (Auto) 0.8 % 2.2 % Basophils (%) (Auto) 0.7 % 0.7 % Neutrophils # (Auto) 9.0 TH/MM3 6.6 TH/MM3 Lymphocytes # (Auto) 1.3 TH/MM3 1.3 TH/MM3 Monocytes # (Auto) 1.0 TH/MM3 0.9 TH/MM3 Eosinophils # (Auto) 0.1 TH/MM3 0.2 TH/MM3 Basophils # (Auto) 0.1 TH/MM3 0.1 TH/MM3 CBC Comment DIFF FINAL DIFF FINAL Differential Comment Laboratory Tests Test 03/21/17 03/22/17 02:35 05:50 Sodium Level 131 MEQ/L 129 MEQ/L Potassium Level 4.4 MEQ/L 3.8 MEQ/L Chloride Level 92 MEQ/L 92 MEQ/L Carbon Dioxide Level 31.0 MEQ/L 30.3 MEQ/L Anion Gap 8 MEQ/L 7 MEQ/L Blood Urea Nitrogen 33 MG/DL 29 MG/DL Creatinine 0.47 MG/DL 0.33 MG/DL Estimat Glomerular Filtration 133 ML/MIN 201 ML/MIN Rate Random Glucose 117 MG/DL 108 MG/DL Calcium Level 8.6 MG/DL 8.5 MG/DL Magnesium Level 2.3 MG/DL 2.4 MG/DL Total Bilirubin 0.5 MG/DL Direct Bilirubin 0.3 MG/DL Indirect Bilirubin 0.2 MG/DL Aspartate Amino Transf 42 U/L (AST/SGOT) Alanine Aminotransferase 39 U/L (ALT/SGPT) Alkaline Phosphatase 157 U/L Total Protein 7.8 GM/DL Albumin 2.7 GM/DL Free Thyroxine 1.25 NG/DL Thyroid Stimulating Hormone 4.720 uIU/ML 3rd Gen Microbiology Date/Time Procedure Status Source Growth 03/20/17 13:12 Aerobic Blood Culture - Preliminary Resulted Blood Peripheral NO GROWTH IN 2 DAYS 03/20/17 13:12 Anaerobic Blood Culture - Preliminary Resulted Viridans Streptococcus Grp 03/20/17 13:20 Aerobic Blood Culture - Preliminary Resulted Blood Peripheral Gram Positive Cocci 03/20/17 13:20 Anaerobic Blood Culture - Final Resulted Viridans Streptococcus Grp 03/21/17 02:40 Gram Stain - Final Resulted Sputum Endotracheal 03/21/17 02:40 Sputum Culture - Preliminary Resulted Gram Negative Kenneth Staphylococcus Aureus Imaging Last Impressions Chest X-Ray 01/09/17 0000 Signed Impressions: Service Date/Time: Monday, January 09, 2017 11:56 - CONCLUSION: Mild bilateral pulmonary vasculature indistinctness suggesting pulmonary vascular congestion/mild pulmonary edema. Sami Mccarthy MD Brain MRI 01/06/17 0000 Signed Impressions: Service Date/Time: January 14:19 - CONCLUSION: Continued evolutionary changes of large bilateral frontal lobe infarcts. Sami Mccarthy MD Abdomen X-Ray 11/26/16 0000 Signed Impressions: Service Date/Time: Saturday, November 26, 2016 10:18 - CONCLUSION: Distended stomach otherwise nonspecific abdomen. Jackson Murillo MD Physical Exam GENERAL: Chronically ill appearing patient, in no apparent distress. SKIN: No rashes, ecchymoses or lesions. Cool and dry. HEAD: Atraumatic. Normocephalic. No temporal or scalp tenderness. EYES: Pupils equal round and reactive. Extraocular motions intact. No scleral icterus. No injection or drainage. ENT: Trach site with no e.o infection. CARDIOVASCULAR: Regular rate and rhythm without murmurs, gallops, or rubs. RESPIRATORY: Clear to auscultation. Breath sounds equal bilaterally. No wheezes , rales, or rhonchi. GASTROINTESTINAL: Abdomen soft, non-tender, nondistended. PEG tube site with no e.o infection. MUSCULOSKELETAL: Extremities without clubbing, cyanosis, or edema. NEUROLOGICAL: Opens eyes spontaneously.Tearful. Did not follow commands. Non verbal. Psych: ? depressed. IV line sites with no e.o infection Laboratory Assessment & Plan Remarks Strep viridans bacteremia : ? real vs contaminated skin collection. Sputum with GNR and Staph aureus ? colonization. CXR normal, not much secretions. Urine with Kleb pneumo and E.coli : ? colonization. Bilateral frontal CVA left greater than right Moyamoya - confirmed by arteriogram at [facility] 10/22 Seizure disorder NOS Vent dependent respiratory failure COPD Coronary artery disease with prior myocardial infarction Hypertension Right ICA occlusion Dyslipidemia Recs Continue to observe off antibiotics. No source of infection. suspect her resp secretions are contaminating her skin. when blood cultures ordered pt did not have fevers, WBC was 11.5 with nothing to suggest new infection Cipro was stopped and patient continues to do well. Will repeat blood cultures and reassess. If overnight any change in clinical condition please start patient on Cefepime IV and Vanco IV. change yates and obtain new UA. Follow cultures Follow clinically. d/w RN and . Cheyenne Mcbride MD Mar 22, 2017 16:47
--- NOTE | 2017-03-22 19:14 | HHI.PR ---
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 Mod amount of trach secretions opens eyes, does't follow had VAC devise placed ID evaluating pt Objective Vital Signs Vital Signs Date Time Temp Pulse Resp B/P Pulse Ox O2 Delivery O2 Flow Rate FiO2 03/22/17 17:01 88 03/22/17 16:01 97.8 95 20 111/64 95 03/22/17 16:00 94 03/22/17 15:00 88 03/22/17 14:00 78 03/22/17 13:01 108 03/22/17 12:01 97.6 94 20 118/74 100 03/22/17 12:00 92 03/22/17 11:00 95 03/22/17 10:00 90 03/22/17 09:01 97.9 100 18 139/84 100 03/22/17 09:01 10 Trach Collar 5.00 03/22/17 09:00 92 03/22/17 08:00 90 03/22/17 07:45 99 T-piece 35 03/22/17 07:45 99 T-piece 35 03/22/17 07:01 94 03/22/17 06:11 92 03/22/17 05:00 96 03/22/17 04:00 92 03/22/17 03:00 96.9 92 107/68 99 03/22/17 03:00 103 03/22/17 02:00 100 03/22/17 01:00 90 03/22/17 00:00 90 03/21/17 23:00 97.8 89 97/72 98 03/21/17 23:00 88 03/21/17 22:00 102 03/21/17 21:00 102 03/21/17 21:00 95 T-piece 6.00 35 03/21/17 20:00 88 03/21/17 19:15 Trach Collar 28 I/O 03/21/17 03/21/17 03/21/17 03/22/17 03/22/17 03/22/17 06:59 14:59 22:59 06:59 14:59 22:59 Intake Total 660 ml 1380 ml 240 ml Output Total 150 ml 880 ml 600 ml Balance 510 ml 500 ml -360 ml Intake Oral 0 ml 1180 ml 240 ml IV Total 200 ml Tube Feeding 360 ml Other 300 ml Output Urine Total 150 ml 880 ml 600 ml Result Diagram: 03/22/17 0550 03/22/17 0550 Objective Remarks GENERAL: MBMN WF, on Trach collar SKIN: Warm and dry. HEAD: Normocephalic. EYES: No scleral icterus. No injection or drainage. NECK: Supple, trachea midline. No JVD or lymphadenopathy. has trach CARDIOVASCULAR: Regular rate and rhythm without murmurs, gallops, or rubs. RESPIRATORY: Breath sounds equal bilaterally. No accessory muscle use. GASTROINTESTINAL: Abdomen soft, non-tender, nondistended. has PEG MUSCULOSKELETAL: No cyanosis, or edema. BACK: Nontender without obvious deformity. No CVA tenderness. A/P Assessment and Plan RF, S/P Trach CVA Arango arango disease CAD COPD SZ disorder PLAN: Aerosol nebs Cont trach collar supplement 02, keep sat >90% Trach suction prn. DW RN at BS. TF Cont Levsin. Lopressor for HR controll Off Abx per Vernon Sky MD Mar 22, 2017 19:14
[2017-03-22] MEDS: CHLORHEXIDINE 0.12% (ORAL KIT) 15 ML CUP MT SCH (20:00)
[2017-03-23] VITALS (25 sets, daily range): BP systolic 101–118; BP diastolic 53–71; PULSE 1–105; RESP 0–20; TEMP 97.7–99; O2SAT 95–100
[2017-03-23] MEDS: CHLORHEXIDINE GLUCONATE 2 % 1 PACK (2 CLOTHS) TOP SCH (04:00)
[2017-03-23] MEDS: HYOSCYAMINE SOLN 0.125 MG/ML 15 ML BTL G-TUBE SCH ×4 (05:08→23:55)
[2017-03-23] MEDS: FREE WATER G-TUBE SCH ×3 (05:08→21:41)
[2017-03-23 06:58] LABS: INTERNATIONAL NORMALIZED RATIO 1.9 RATIO; PROTHROMBIN TIME - PATIENT 22.1 SEC (9.8-11.6)
[2017-03-23 07:14] LABS: BICARBONATE 31.9 MEQ/L (21.0-32.0); MAGNESIUM 2.4 MG/DL (1.5-2.5)
[2017-03-23] MEDS: RESP: ALBUTEROL 0.63 MG/3 ML NEB (SCH) NEB ×4 (07:31→21:41)
[2017-03-23] MEDS: RESP: IPRATROPIUM 0.5 MG/2.5 ML NEB NEB SCH ×4 (07:31→21:41)
[2017-03-23] MEDS: INSULIN ASPART SUPPLEMENTAL SCALE SQ SCH ×2 (09:00→21:00)
[2017-03-23] MEDS: POTASSIUM CHLORIDE 20 MEQ PWD PACKET NG SCH (09:00)
[2017-03-23] MEDS: JUVEN POWDER 1 PACK G-TUBE SCH ×2 (09:00→21:00)
[2017-03-23] MEDS: SENNOSIDES SYRUP 8.8 MG/5 ML CUP G-TUBE SCH ×2 (09:26→21:00)
[2017-03-23] MEDS: FERROUS SULFATE 300 MG /5ML UDC PEG SCH ×2 (09:26→21:39)
[2017-03-23] MEDS: carBAMazepine SUSP 200 MG/10 ML UDC PEG SCH ×2 (09:26→21:39)
[2017-03-23] MEDS: LACTULOSE SYRUP 20 GM/30 ML CUP G-TUBE SCH ×3 (09:26→18:33)
[2017-03-23] MEDS: levETIRAcetam 500 MG/5 ML UDC NG SCH ×2 (09:26→21:39)
[2017-03-23] MEDS: BROMOCRIPTINE MESYLATE 2.5 MG TAB OG-TUBE SCH ×2 (09:27→21:39)
[2017-03-23] MEDS: FUROSEMIDE 20 MG/2 ML VIAL IV PUSH SCH (09:27)
[2017-03-23] MEDS: SODIUM CHLORIDE 0.9% FLUSH 10 ML FLUSH IV FLUSH SCH ×2 (09:27→21:41)
[2017-03-23] MEDS: ASCORBIC ACID 500 MG TAB PEG SCH ×2 (09:27→21:41)
[2017-03-23] MEDS: METOPROLOL TARTRATE 50 MG TAB G-TUBE SCH ×2 (09:28→21:39)
[2017-03-23] MEDS: FAMOTIDINE 20 MG TAB NG SCH ×2 (09:28→21:39)
[2017-03-23] MEDS: ATORVASTATIN 40 MG TAB G-TUBE SCH (09:28)
[2017-03-23] MEDS: FOLIC ACID 1 MG TAB OG-TUBE SCH (09:28)
[2017-03-23] MEDS: SACUBITRIL/VALSARTAN 24 MG-26 MG TAB PEG SCH ×2 (09:28→21:39)
--- NOTE | 2017-03-23 10:23 | HHI.PR ---
Subjective Remarks Follow-up bacteremia. No fever. Remains nonresponsive but discussed with RN usual sandoval trach secretions. Soft bowel movement. Discussed with RN and ID Objective Vitals Vital Signs Date Time Temp Pulse Resp B/P Pulse Ox O2 Delivery O2 Flow Rate FiO2 03/23/17 07:34 100 T-piece 28 03/23/17 07:34 100 T-piece 28 03/23/17 07:01 105 03/23/17 06:00 78 03/23/17 05:00 88 03/23/17 04:00 97.7 105 16 111/71 98 03/23/17 04:00 89 03/23/17 04:00 97.7 105 16 111/71 98 03/23/17 03:00 86 03/23/17 02:00 92 03/23/17 01:00 88 03/23/17 00:00 98.3 90 16 101/66 98 03/23/17 00:00 89 03/22/17 23:00 90 03/22/17 22:18 92 T-piece 6.00 28 03/22/17 22:00 90 03/22/17 21:00 90 03/22/17 20:00 98.4 92 16 131/72 99 03/22/17 20:00 Trach Collar 5.00 35 03/22/17 20:00 91 03/22/17 19:00 88 03/22/17 18:01 92 03/22/17 17:01 88 03/22/17 16:01 97.8 95 20 111/64 95 03/22/17 16:00 94 03/22/17 15:00 88 03/22/17 14:00 78 03/22/17 13:01 108 03/22/17 12:01 97.6 94 20 118/74 100 03/22/17 12:00 92 03/22/17 11:00 95 I/O 03/22/17 03/22/17 03/22/17 03/23/17 03/23/17 03/23/17 07:00 15:00 23:00 07:00 15:00 23:00 Intake Total 240 ml 1042 ml 1100 ml Output Total 600 ml 1350 ml 500 ml Balance -360 ml -308 ml 600 ml Intake Oral 240 ml 490 ml IV Total 552 ml Tube Feeding 700 ml Other 400 ml Output Urine Total 600 ml 1350 ml 500 ml # Bowel Movements 1 1 Result Diagram: 03/22/17 0550 03/23/17 0540 Imaging Last Impressions Chest X-Ray 03/20/17 0000 Signed Impressions: Service Date/Time: Monday, March 20, 2017 11:37 - CONCLUSION: Stable appearance with no acute cardiopulmonary disease. Lenny Kerns MD Abdomen X-Ray 02/11/17 0000 Signed Impressions: Service Date/Time: Saturday, February 11, 2017 17:52 - CONCLUSION: Minimal colonic distention. Kenneth Frost MD FACR Catheter Change 02/10/17 0000 Signed Impressions: Service Date/Time: February 13:47 - CONCLUSION: Uncomplicated fluoroscopic guided gastrostomy tube replacement. Positioning confirmed. The tube can be used immediately. Nghia Pacheco MD Lower Extremity Ultrasound 02/01/17 0000 Signed Impressions: Service Date/Time: Wednesday, February 01, 2017 13:23 - CONCLUSION: Normal examination. 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 Sami Mccarthy MD Objective Remarks GENERAL: Obese female patient lying in bed, t-collar in place. SKIN: Warm and dry. HEENT: Normocephalic. No scleral icterus. No injection or drainage. No nasal bleeding or discharge. Mucous membranes pink and moist. NECK: Supple. Tracheostomy in place. CARDIOVASCULAR: Regular rate and rhythm RESPIRATORY: No accessory muscle use. Coarse breath sounds noted. No wheezing. GASTROINTESTINAL: Abdomen soft, non-tender, nondistended. Normoactive bowel sounds x4. PEG in place. : Brown kevan yellow urine. MUSCULOSKELETAL: No obvious deformities. Extremities without clubbing, cyanosis. Improving edema. Hemovac sacrum draining sanguinous fluid. NEUROLOGICAL: Eyes open. Does not follow any commands. No spontaneous movement in upper or lower extremities. Procedures PEG 11/24/2016 Percutaneous tracheostomy. 11/18/2016 Moderate encephalopathy with suggestion of left temporal region cortical irritability. No active seizures. Clinical correlation. Echocardiogram Severe dilated left ventricle. Wall thickness is normal. The left ventricular systolic function is moderately reduced with an estimated ejection fraction in the range of 35-40%. Doppler parameters are consistent with a restrictive left ventricular filling pattern indicative of decreased left ventricular diastolic compliance and increase left atrial pressure (grade 3 diastolic dysfunction). There is severe tricuspid regurgitation. There is severe pulmonary hypertension present ( > 70 mmHg). Severe mitral valve regurgitation. 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 She was was admitted to [facility] emergency department 11/04/16 with difficulty getting her thoughts together. She was found to have multifocal ischemic infarcts in left frontal and parietal regions, right frontal lobe and history of moyamoya disease. She was initially awake and following commands with weakness of RLE and some aphasia. She was transferred to [facility] where he had an cerebral angiogram consistent with moyamoya. There were plans to perform extracranial/ intracranial bypass. However she had a seizure and ended up being intubated for status epilepticus 11/2016 She was found to have a new right frontal infarct area and she was started on Dilantin and Keppra and it was felt that she would not be a candidate for intervention. She has been intubated 9-10 days. Treating team was discussing with family trach/PEG. Family requested transfer back to [place] because they live locally here and wanted her closer to home. Patient remained under critical care medicine until 12/24/2016. Narrow complex tachycardia history of A. fib. TSH not suppressed. Electrolytes unremarkable .echocardiogram showing combined systolic and basilar dysfunction, severe TR, MR and pulmonary hypertension. Rate controlled on Lopressor 50 mg twice a day status post Cardizem drip. Cardiology following Sepsis - UA positive, culture polymicrobial likely colonization discontinued IV ciprofloxacin. Brown catheter recently changed - Viridans strep in 2 anaerobic bottles. GPC in 2 aerobic bottles. No leukocytosis. Discussed with ID, real versus pseudo-bacteremia. Repeated blood culture this morning. - Patient with increase risk for PNA/ UTI. Patient also with wound vac. Bilateral large frontal CVA Moyamoya Disease Seizure Disorder - Continue Tegretol 200 mg q12h - Follow for seizure activity - Continue Bromocriptine - Tegretol level WNL. Resume Keppra at lower dose 1000 mg twice a day. Hyperammonemia: - continue Lactulose 30 ml PO TID. - continue to monitor ammonia Mixed Systolic and diastolic heart failure, acute - Continue Lasix 20mg daily - On Entresto - Monitor electrolytes and renal function. Hyponatremia: Stable Hypokalemia: Stable - Monitor BMP Anasarca: Improving - Lasix daily Chronic Respiratory Failure Chronic obstructive pulmonary disease Multilobar pneumonia - Pulmonology following - Continue tracheostomy with supplemental oxygen. Maintain O2 sat greater than 92% - Tobramycin completed, course ended on 01/20/17. - Levsin for increased secretions - Wean off O2, possible capping and decannulation Dysphagia Hypoalbuminemia - PEG placed. Continue TF. - Jevity 1.5 through PEG tube with Corby supplementation. - We'll consult dietitian may possibly benefit with overnight feedings and bolus feedings in the morning. This may benefit the patient when she transitions to long-term care. - Switch to glucerna as pt. HgA1c 6.5 - Dietitian recommends Glucerna 1.5 360 mls at B, L D and HS Continue Corby as ordered. New onset DM - HgA1C 6.5 - Insulin S/S. monitor Accu-Cheks. Monitor for hypoglycemia. - Change to Glucerna feedings - BG improved. Will decrease ISS to BID Sacral/Coccyx wound - Continue specialty bed. - Wound care following, wound vac continued. GI Prophylaxis: Pepcid. DVT prophylaxis: SCDs. Coumadin. Discharge Planning Case management following. 03/14/17 no accepting facility at this time. Barrier: payor is Medicaid and pt is too expensive with PEG and trach. Possibly can be placed with one or the other but not both. Shahram Obrien MD Mar 23, 2017 10:23
--- NOTE | 2017-03-23 13:31 | PD.CARD.PN ---
Subjective Subjective Remarks Poorly responsive, HR better controlled Objective Medications Current Medications Medications (Trade) Dose Ordered Sig/Ora Route Start Time Stop Time Status Last Admin (Peridex 0.12% Liq) 15 ml BID@08,20 MT 11/18/16 08:00 03/19/17 20:00 (NS Flush) 2 ml BID IV FLUSH 11/18/16 09:00 03/23/17 09:27 (Morphine Inj) 2 mg Q2H PRN IV 11/18/16 03:30 01/16/17 08:23 (Zofran Inj) 4 mg Q6H PRN IV 11/18/16 03:30 11/26/16 03:20 Miscellaneous Information 1 Q361D XX 11/18/16 03:30 11/18/16 03:30 (Chlorhexidine 2% Cloth) Taper DAILY@04 TOP 11/18/16 04:00 11/14/17 03:59 02/15/17 04:00 (Chlorhexidine 2% Cloth) 3 pack UNSCH PRN TOP 11/18/16 03:30 (Parlodel) 2.5 mg Q12HR OG-TUBE 11/18/16 09:00 03/23/17 09:27 (Folate) 1 mg DAILY OG-TUBE 11/18/16 09:00 03/23/17 09:28 (Dulcolax Supp) 10 mg DAILY PRN RECTAL 12/14/16 15:45 (Pepcid) 20 mg BID NG 12/21/16 21:00 03/23/17 09:28 (TEGretol LIQ) 200 mg Q12HR PEG 01/06/17 09:00 03/23/17 09:26 (Corby Powder) 1 pack BID G-TUBE 01/13/17 09:00 03/23/17 09:00 (Ferrous Sulfate Liq) 300 mg BID PEG 01/26/17 21:00 03/23/17 09:26 (Vitamin C) 500 mg BID PEG 01/26/17 21:00 03/23/17 09:27 ([place] 5-325 Mg) 1 tab Q4H PRN G-TUBE 02/01/17 11:30 03/08/17 21:44 (Tylenol) 650 mg Q6H PRN G-TUBE 02/01/17 09:30 (Lipitor) 40 mg DAILY G-TUBE 02/01/17 09:00 03/23/17 09:28 (Senna Liq) 8.8 mg BID G-TUBE 02/01/17 09:00 03/23/17 09:26 (D50w (Vial) Inj) 25 ml UNSCH PRN IV PUSH 02/01/17 09:15 Glucagon 1 mg 1 mg UNSCH PRN OTHER 02/01/17 09:15 (Coumadin Consult Pharmacy) 0 ml @ 0 mls/hr UNSCH OTHER 02/01/17 09:15 (Dakin'S 0.25% Soln) USE DAILY WITH DRESS... DAILY TOPICAL 02/12/17 18:00 03/22/17 15:00 (Betadine 10% Oint) 1 applic DAILY TOPICAL 02/15/17 09:00 03/18/17 07:29 (Lactulose Liq) 30 ml TID G-TUBE 02/21/17 13:00 03/23/17 09:26 (Zaroxolyn) 5 mg DAILY PEG 03/09/17 09:00 Hold 03/13/17 10:04 (Coumadin) 10 mg DAILY@16 PEG 03/08/17 16:00 03/22/17 16:07 (Entresto 24-26 Mg) 1 tab BID PEG 03/08/17 21:00 03/23/17 09:28 (Free Water) VOLUME OF WATER: ( 300 ) ML Q8HR G-TUBE 03/09/17 14:00 03/23/17 05:08 (Levsin Liq) 0.125 mg Q6H G-TUBE 03/10/17 18:00 03/23/17 05:08 (Lasix Inj) 20 mg DAILY IV PUSH 03/16/17 11:30 03/23/17 09:27 (KCl Powder) 20 meq DAILY NG 03/17/17 09:00 03/23/17 09:00 (NovoLOG SUPPLEMENTAL SCALE) 1 BID SQ 03/20/17 21:00 03/22/17 22:04 Metoprolol Tartrate 50 mg 50 mg Q12HR G-TUBE 03/21/17 09:00 03/23/17 09:28 (Cardizem Inj/NS Inj) 125 ml @ 0 mls/hr TITRATE IV 03/21/17 09:00 03/21/17 09:25 (Keppra Liq) 1,000 mg Q12HR NG 03/21/17 21:00 03/23/17 09:26 Vital Signs / I&O Vital Signs Date Time Temp Pulse Resp B/P Pulse Ox O2 Delivery O2 Flow Rate FiO2 03/23/17 12:01 98.5 86 18 106/64 99 03/23/17 09:01 97.8 85 18 115/71 100 03/23/17 09:01 10 Trach Collar 5.00 03/23/17 07:34 100 T-piece 28 03/23/17 07:34 100 T-piece 28 03/23/17 07:01 105 03/23/17 06:00 78 03/23/17 05:00 88 03/23/17 04:00 97.7 105 16 111/71 98 03/23/17 04:00 89 03/23/17 04:00 97.7 105 16 111/71 98 03/23/17 03:00 86 03/23/17 02:00 92 03/23/17 01:00 88 03/23/17 00:00 98.3 90 16 101/66 98 03/23/17 00:00 89 03/22/17 23:00 90 03/22/17 22:18 92 T-piece 6.00 28 03/22/17 22:00 90 03/22/17 21:00 90 03/22/17 20:00 98.4 92 16 131/72 99 03/22/17 20:00 Trach Collar 5.00 35 03/22/17 20:00 91 03/22/17 19:00 88 03/22/17 18:01 92 03/22/17 17:01 88 03/22/17 16:01 97.8 95 20 111/64 95 03/22/17 16:00 94 03/22/17 15:00 88 03/22/17 14:00 78 I/O 03/22/17 03/22/17 03/22/17 03/23/17 03/23/17 03/23/17 06:59 14:59 22:59 06:59 14:59 22:59 Intake Total 240 ml 1042 ml 1100 ml Output Total 600 ml 1350 ml 500 ml Balance -360 ml -308 ml 600 ml Intake Oral 240 ml 490 ml IV Total 552 ml Tube Feeding 700 ml Other 400 ml Output Urine Total 600 ml 1350 ml 500 ml # Bowel Movements 1 1 Physical Exam GENERAL: In NAD, poorly responsive SKIN: Warm and dry. HEAD: Normocephalic. EYES: No scleral icterus. No injection or drainage. NECK: Supple, trachea midline. No JVD or lymphadenopathy. Trach in place CARDIOVASCULAR: Regular rate and rhythm without murmurs, gallops, or rubs. RESPIRATORY: Breath sounds equal bilaterally. No accessory muscle use. GASTROINTESTINAL: Abdomen soft, non-tender, nondistended. MUSCULOSKELETAL: No cyanosis, or edema. Laboratory Laboratory Tests Test 03/23/17 05:40 Prothrombin Time 22.1 SEC Prothromb Time International 1.9 RATIO Ratio Sodium Level 132 MEQ/L Potassium Level 4.0 MEQ/L Chloride Level 94 MEQ/L Carbon Dioxide Level 31.9 MEQ/L Anion Gap 6 MEQ/L Blood Urea Nitrogen 26 MG/DL Creatinine 0.48 MG/DL Estimat Glomerular Filtration 130 ML/MIN Rate Random Glucose 113 MG/DL Calcium Level 8.8 MG/DL Magnesium Level 2.4 MG/DL Imaging Last Impressions Chest X-Ray 03/20/17 0000 Signed Impressions: Service Date/Time: Monday, March 20, 2017 11:37 - CONCLUSION: Stable appearance with no acute cardiopulmonary disease. Lenny Kerns MD Abdomen X-Ray 02/11/17 0000 Signed Impressions: Service Date/Time: Saturday, February 11, 2017 17:52 - CONCLUSION: Minimal colonic distention. Kenneth Frost MD FACR Catheter Change 02/10/17 0000 Signed Impressions: Service Date/Time: February 13:47 - CONCLUSION: Uncomplicated fluoroscopic guided gastrostomy tube replacement. Positioning confirmed. The tube can be used immediately. Nghia Pacheco MD Lower Extremity Ultrasound 02/01/17 0000 Signed Impressions: Service Date/Time: Wednesday, February 01, 2017 13:23 - CONCLUSION: Normal examination. 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 Sami Mccarthy MD Assessment and Plan Problem List: (1) Narrow complex tachycardia (2) CVA (cerebral vascular accident) (3) Seizure (4) Moyamoya disease (5) Encephalopathy (6) Accelerated essential hypertension (7) Respiratory failure, acute Assessment and Plan Rhythm now stable. Continue current program with metoprolol. Transfer back to floor today. No new cardiac issues. Klaus Panchal MD Mar 23, 2017 13:30
[2017-03-23] MEDS: WARFARIN SOD 10 MG TAB PEG SCH (18:33)
--- NOTE | 2017-03-23 18:54 | HHI.PR ---
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 Mod amount of trach secretions had VAC devise placed ID evaluating pt On Entresto 24-26 mg Objective Vital Signs Vital Signs Date Time Temp Pulse Resp B/P Pulse Ox O2 Delivery O2 Flow Rate FiO2 03/23/17 15:45 98.3 1 0 101/53 100 03/23/17 13:01 76 03/23/17 12:01 98.5 86 18 106/64 99 03/23/17 12:00 72 03/23/17 11:00 80 03/23/17 10:00 82 03/23/17 09:01 97.8 85 18 115/71 100 03/23/17 09:01 10 Trach Collar 5.00 03/23/17 09:00 82 03/23/17 08:00 84 03/23/17 07:34 100 T-piece 28 03/23/17 07:34 100 T-piece 28 03/23/17 07:01 105 03/23/17 06:00 78 03/23/17 05:00 88 03/23/17 04:00 97.7 105 16 111/71 98 03/23/17 04:00 89 03/23/17 04:00 97.7 105 16 111/71 98 03/23/17 03:00 86 03/23/17 02:00 92 03/23/17 01:00 88 03/23/17 00:00 98.3 90 16 101/66 98 03/23/17 00:00 89 03/22/17 23:00 90 03/22/17 22:18 92 T-piece 6.00 28 03/22/17 22:00 90 03/22/17 21:00 90 03/22/17 20:00 98.4 92 16 131/72 99 03/22/17 20:00 Trach Collar 5.00 35 03/22/17 20:00 91 03/22/17 19:00 88 I/O 03/22/17 03/22/17 03/22/17 03/23/17 03/23/17 03/23/17 07:00 15:00 23:00 07:00 15:00 23:00 Intake Total 240 ml 1042 ml 1100 ml Output Total 600 ml 1350 ml 500 ml Balance -360 ml -308 ml 600 ml Intake Oral 240 ml 490 ml IV Total 552 ml Tube Feeding 700 ml Other 400 ml Output Urine Total 600 ml 1350 ml 500 ml # Bowel Movements 1 1 Result Diagram: 03/22/17 0550 03/23/17 0540 Objective Remarks GENERAL: MBMN WF, on Trach collar SKIN: Warm and dry. HEAD: Normocephalic. EYES: No scleral icterus. No injection or drainage. NECK: Supple, trachea midline. No JVD or lymphadenopathy. has trach CARDIOVASCULAR: Regular rate and rhythm without murmurs, gallops, or rubs. RESPIRATORY: Breath sounds equal bilaterally. No accessory muscle use. GASTROINTESTINAL: Abdomen soft, non-tender, nondistended. has PEG MUSCULOSKELETAL: No cyanosis, or edema. BACK: Nontender without obvious deformity. No CVA tenderness. A/P Assessment and Plan RF, S/P Trach CVA Arango arango disease CAD COPD SZ disorder PLAN: Aerosol nebs Cont trach collar supplement 02, keep sat >90% Trach suction prn. DW RN at BS. TF Cont Levsin. Lopressor for HR controll Vernon Marx MD Mar 23, 2017 18:54
[2017-03-23] MEDS: CHLORHEXIDINE 0.12% (ORAL KIT) 15 ML CUP MT SCH (20:00)
[2017-03-24] VITALS (17 sets, daily range): BP systolic 115–139; BP diastolic 74–84; PULSE 69–95; RESP 20–24; TEMP 97.8–99.1; O2SAT 93–100
[2017-03-24] MEDS: CHLORHEXIDINE GLUCONATE 2 % 1 PACK (2 CLOTHS) TOP SCH ×2 (04:00→23:07)
[2017-03-24] MEDS: HYOSCYAMINE SOLN 0.125 MG/ML 15 ML BTL G-TUBE SCH ×4 (05:34→23:49)
[2017-03-24] MEDS: FREE WATER G-TUBE SCH ×3 (05:34→21:51)
[2017-03-24 06:52] LABS: INTERNATIONAL NORMALIZED RATIO 1.9 RATIO; PROTHROMBIN TIME - PATIENT 21.5 SEC (9.8-11.6)
[2017-03-24] MEDS: CHLORHEXIDINE 0.12% (ORAL KIT) 15 ML CUP MT SCH ×2 (08:00→20:00)
[2017-03-24] MEDS: POTASSIUM CHLORIDE 20 MEQ PWD PACKET NG SCH (09:00)
[2017-03-24] MEDS: JUVEN POWDER 1 PACK G-TUBE SCH ×2 (09:00→21:00)
[2017-03-24] MEDS: POVIDONE IODINE 10% OINT 30 GM TUBE TOPICAL SCH (09:00)
[2017-03-24] MEDS: SODIUM HYPOCHLORITE 0.25% 500 ML BTL TOPICAL SCH ×3 (09:00→10:44)
[2017-03-24] MEDS: INSULIN ASPART SUPPLEMENTAL SCALE SQ SCH ×2 (09:00→21:00)
[2017-03-24] MEDS: SENNOSIDES SYRUP 8.8 MG/5 ML CUP G-TUBE SCH ×2 (09:00→21:48)
[2017-03-24] MEDS: RESP: ALBUTEROL 0.63 MG/3 ML NEB (SCH) NEB ×3 (09:21→15:49)
[2017-03-24] MEDS: RESP: IPRATROPIUM 0.5 MG/2.5 ML NEB NEB SCH ×3 (09:21→15:49)
[2017-03-24] MEDS: FAMOTIDINE 20 MG TAB NG SCH ×2 (10:07→21:48)
[2017-03-24] MEDS: FERROUS SULFATE 300 MG /5ML UDC PEG SCH ×2 (10:07→21:48)
[2017-03-24] MEDS: ASCORBIC ACID 500 MG TAB PEG SCH ×2 (10:08→21:48)
[2017-03-24] MEDS: ATORVASTATIN 40 MG TAB G-TUBE SCH (10:08)
[2017-03-24] MEDS: BROMOCRIPTINE MESYLATE 2.5 MG TAB OG-TUBE SCH ×2 (10:08→21:55)
[2017-03-24] MEDS: METOPROLOL TARTRATE 50 MG TAB G-TUBE SCH ×2 (10:08→21:48)
[2017-03-24] MEDS: FOLIC ACID 1 MG TAB OG-TUBE SCH (10:09)
[2017-03-24] MEDS: SACUBITRIL/VALSARTAN 24 MG-26 MG TAB PEG SCH ×2 (10:09→21:54)
[2017-03-24] MEDS: LACTULOSE SYRUP 20 GM/30 ML CUP G-TUBE SCH ×3 (10:09→18:54)
[2017-03-24] MEDS: levETIRAcetam 500 MG/5 ML UDC NG SCH ×2 (10:10→21:47)
[2017-03-24] MEDS: carBAMazepine SUSP 200 MG/10 ML UDC PEG SCH ×2 (10:10→21:55)
[2017-03-24] MEDS: SODIUM CHLORIDE 0.9% FLUSH 10 ML FLUSH IV FLUSH SCH ×2 (10:11→21:48)
[2017-03-24] MEDS: FUROSEMIDE 20 MG/2 ML VIAL IV PUSH SCH (10:11)
--- NOTE | 2017-03-24 13:37 | PD.CARD.PN ---
Subjective Subjective Remarks Unresponsive, but hemodynamically stable Objective Medications Current Medications Medications (Trade) Dose Ordered Sig/Ora Route Start Time Stop Time Status Last Admin (Peridex 0.12% Liq) 15 ml BID@08,20 MT 11/18/16 08:00 03/24/17 08:00 (NS Flush) 2 ml BID IV FLUSH 11/18/16 09:00 03/24/17 10:11 (Morphine Inj) 2 mg Q2H PRN IV 11/18/16 03:30 01/16/17 08:23 (Zofran Inj) 4 mg Q6H PRN IV 11/18/16 03:30 11/26/16 03:20 Miscellaneous Information 1 Q361D XX 11/18/16 03:30 11/18/16 03:30 (Chlorhexidine 2% Cloth) Taper DAILY@04 TOP 11/18/16 04:00 11/14/17 03:59 02/15/17 04:00 (Chlorhexidine 2% Cloth) 3 pack UNSCH PRN TOP 11/18/16 03:30 (Parlodel) 2.5 mg Q12HR OG-TUBE 11/18/16 09:00 03/24/17 10:08 (Folate) 1 mg DAILY OG-TUBE 11/18/16 09:00 03/24/17 10:09 (Dulcolax Supp) 10 mg DAILY PRN RECTAL 12/14/16 15:45 (Pepcid) 20 mg BID NG 12/21/16 21:00 03/24/17 10:07 (TEGretol LIQ) 200 mg Q12HR PEG 01/06/17 09:00 03/24/17 10:10 (Corby Powder) 1 pack BID G-TUBE 01/13/17 09:00 03/24/17 09:00 (Ferrous Sulfate Liq) 300 mg BID PEG 01/26/17 21:00 03/24/17 10:07 (Vitamin C) 500 mg BID PEG 01/26/17 21:00 03/24/17 10:08 ([place] 5-325 Mg) 1 tab Q4H PRN G-TUBE 02/01/17 11:30 03/08/17 21:44 (Tylenol) 650 mg Q6H PRN G-TUBE 02/01/17 09:30 (Lipitor) 40 mg DAILY G-TUBE 02/01/17 09:00 03/24/17 10:08 (Senna Liq) 8.8 mg BID G-TUBE 02/01/17 09:00 03/23/17 21:00 (D50w (Vial) Inj) 25 ml UNSCH PRN IV PUSH 02/01/17 09:15 Glucagon 1 mg 1 mg UNSCH PRN OTHER 02/01/17 09:15 (Coumadin Consult Pharmacy) 0 ml @ 0 mls/hr UNSCH OTHER 02/01/17 09:15 (Dakin'S 0.25% Soln) USE DAILY WITH DRESS... DAILY TOPICAL 02/12/17 18:00 03/24/17 10:13 (Betadine 10% Oint) 1 applic DAILY TOPICAL 02/15/17 09:00 03/18/17 07:29 (Lactulose Liq) 30 ml TID G-TUBE 02/21/17 13:00 03/24/17 13:23 (Zaroxolyn) 5 mg DAILY PEG 03/09/17 09:00 Hold 03/13/17 10:04 (Coumadin) 10 mg DAILY@16 PEG 03/08/17 16:00 03/23/17 18:33 (Entresto 24-26 Mg) 1 tab BID PEG 03/08/17 21:00 03/24/17 10:09 (Free Water) VOLUME OF WATER: ( 300 ) ML Q8HR G-TUBE 03/09/17 14:00 03/24/17 13:24 (Levsin Liq) 0.125 mg Q6H G-TUBE 03/10/17 18:00 03/24/17 12:00 (Lasix Inj) 20 mg DAILY IV PUSH 03/16/17 11:30 03/24/17 10:11 (KCl Powder) 20 meq DAILY NG 03/17/17 09:00 03/24/17 09:00 (NovoLOG SUPPLEMENTAL SCALE) 1 BID SQ 03/20/17 21:00 03/22/17 22:04 Metoprolol Tartrate 50 mg 50 mg Q12HR G-TUBE 03/21/17 09:00 03/24/17 10:08 (Cardizem Inj/NS Inj) 125 ml @ 0 mls/hr TITRATE IV 03/21/17 09:00 03/21/17 09:25 (Keppra Liq) 1,000 mg Q12HR NG 03/21/17 21:00 03/24/17 10:10 Vital Signs / I&O Vital Signs Date Time Temp Pulse Resp B/P Pulse Ox O2 Delivery O2 Flow Rate FiO2 03/24/17 13:00 80 03/24/17 12:00 82 03/24/17 11:00 98.5 94 22 139/77 99 03/24/17 11:00 95 03/24/17 10:00 92 03/24/17 09:22 97 T-piece 4.00 28 03/24/17 09:00 84 03/24/17 08:00 84 03/24/17 07:15 98.4 84 24 134/84 96 03/24/17 07:15 Trach Collar 6.00 28 03/24/17 07:00 85 03/24/17 04:00 84 03/24/17 04:00 99.0 91 20 130/82 99 03/24/17 01:06 93 T-piece 6.00 03/24/17 00:00 87 03/24/17 00:00 99.1 87 20 122/84 93 03/23/17 21:41 98 T-piece 6.00 28 03/23/17 20:00 85 03/23/17 20:00 99.0 89 20 118/66 95 03/23/17 20:00 97 Trach Collar 5.00 28 03/23/17 18:01 82 03/23/17 17:00 84 03/23/17 16:00 80 03/23/17 15:45 98.3 1 0 101/53 100 03/23/17 15:00 85 03/23/17 14:00 80 I/O 03/23/17 03/23/17 03/23/17 03/24/17 03/24/17 03/24/17 07:00 15:00 23:00 07:00 15:00 23:00 Intake Total 1100 ml 820 ml Output Total 500 ml 700 ml 700 ml Balance 600 ml 120 ml -700 ml Tube Feeding 700 ml 720 ml Other 400 ml 100 ml Output Urine Total 500 ml 700 ml 700 ml # Voids 1 # Bowel Movements 1 1 Physical Exam GENERAL: In NAD, poorly responsive SKIN: Warm and dry. HEAD: Normocephalic. EYES: No scleral icterus. No injection or drainage. NECK: Supple, trachea midline. No JVD or lymphadenopathy. Trach in place CARDIOVASCULAR: Regular rate and rhythm without murmurs, gallops, or rubs. RESPIRATORY: Breath sounds equal bilaterally. No accessory muscle use. GASTROINTESTINAL: Abdomen soft, non-tender, nondistended. MUSCULOSKELETAL: No cyanosis, or edema. Laboratory Laboratory Tests Test 03/24/17 05:35 Prothrombin Time 21.5 SEC Prothromb Time International 1.9 RATIO Ratio Imaging Last Impressions Chest X-Ray 03/20/17 0000 Signed Impressions: Service Date/Time: Monday, March 20, 2017 11:37 - CONCLUSION: Stable appearance with no acute cardiopulmonary disease. Lenny Kerns MD Abdomen X-Ray 02/11/17 0000 Signed Impressions: Service Date/Time: Saturday, February 11, 2017 17:52 - CONCLUSION: Minimal colonic distention. Kenneth Frost MD FACR Catheter Change 02/10/17 0000 Signed Impressions: Service Date/Time: February 13:47 - CONCLUSION: Uncomplicated fluoroscopic guided gastrostomy tube replacement. Positioning confirmed. The tube can be used immediately. Nghia Pacheco MD Lower Extremity Ultrasound 02/01/17 0000 Signed Impressions: Service Date/Time: Wednesday, February 01, 2017 13:23 - CONCLUSION: Normal examination. 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 Sami Mccarthy MD Assessment and Plan Problem List: (1) Narrow complex tachycardia (2) CVA (cerebral vascular accident) (3) Seizure (4) Moyamoya disease (5) Encephalopathy (6) Accelerated essential hypertension (7) Respiratory failure, acute Assessment and Plan Rhythm remains stable, no recent cardiac issues. Continue current program including metoprolol. Transfer back to floor. Klaus Panchal MD Mar 24, 2017 13:37
--- NOTE | 2017-03-24 14:48 | HHI.PR ---
Subjective Remarks f/u on unresponsiveness. no acute issues o/n. fluctuating btw 4-6L. Objective Vital Signs Date Time Temp Pulse Resp B/P Pulse Ox O2 Delivery O2 Flow Rate FiO2 03/24/17 14:00 69 03/24/17 13:00 80 03/24/17 12:00 82 03/24/17 11:00 98.5 94 22 139/77 99 03/24/17 11:00 95 03/24/17 10:00 92 03/24/17 09:22 97 T-piece 4.00 28 03/24/17 09:00 84 03/24/17 08:00 84 03/24/17 07:15 98.4 84 24 134/84 96 03/24/17 07:15 Trach Collar 6.00 28 03/24/17 07:00 85 03/24/17 04:00 84 03/24/17 04:00 99.0 91 20 130/82 99 03/24/17 01:06 93 T-piece 6.00 03/24/17 00:00 87 03/24/17 00:00 99.1 87 20 122/84 93 03/23/17 21:41 98 T-piece 6.00 28 03/23/17 20:00 85 03/23/17 20:00 99.0 89 20 118/66 95 03/23/17 20:00 97 Trach Collar 5.00 28 03/23/17 18:01 82 03/23/17 17:00 84 03/23/17 16:00 80 03/23/17 15:45 98.3 1 0 101/53 100 03/23/17 15:00 85 I/O 03/23/17 03/23/17 03/23/17 03/24/17 03/24/17 03/24/17 07:00 15:00 23:00 07:00 15:00 23:00 Intake Total 1100 ml 820 ml Output Total 500 ml 700 ml 700 ml Balance 600 ml 120 ml -700 ml Tube Feeding 700 ml 720 ml Other 400 ml 100 ml Output Urine Total 500 ml 700 ml 700 ml # Voids 1 # Bowel Movements 1 1 Result Diagram: 03/22/17 0550 03/23/17 0540 Procedures 11/24/2016 Percutaneous tracheostomy. Objective Remarks GENERAL: on trach, NAD, awake, occasionally looking speaker, does not track. CARDIOVASCULAR: Regular rate and rhythm without murmurs, gallops, or rubs. RESPIRATORY: Breath sounds equal and clear bilaterally. Unlabored breathing GASTROINTESTINAL: Abdomen soft, non-tender, nondistended. MUSCULOSKELETAL: No cyanosis, or edema. A/P Assessment and Plan 65-year-old female with past medical history of CVA for which she at one point was on warfarin but had been discontinued. She was was admitted to [facility] emergency department 11/04/16 with difficulty getting her thoughts together. She was found to have multifocal ischemic infarcts in left frontal and parietal regions, right frontal lobe and history of moyamoya disease. She was initially awake and following commands with weakness of RLE and some aphasia. She was transferred to [facility] where he had an cerebral angiogram consistent with moyamoya. There were plans to perform extracranial/ intracranial bypass. However she had a seizure and ended up being intubated for status epilepticus 11/2016 She was found to have a new right frontal infarct area and she was started on Dilantin and Keppra and it was felt that she would not be a candidate for intervention. She has been intubated 9-10 days. Treating team was discussing with family trach/PEG. Family requested transfer back to [place] because they live locally here and wanted her closer to home. Patient remained under critical care medicine until 12/24/2016. arhythmias - Narrow complex tachycardia history of A. fib. TSH not suppressed. Electrolytes unremarkable .echocardiogram showing combined systolic and basilar dysfunction, severe TR, MR and pulmonary hypertension. Rate controlled on Lopressor 50 mg twice a day status post Cardizem drip. Cardiology following Sepsis - UA positive, culture polymicrobial likely colonization discontinued IV ciprofloxacin. Brown catheter recently changed - Viridans strep in 2 anaerobic bottles. GPC in 2 aerobic bottles. No leukocytosis. Real versus pseudo-bacteremia. Repeated blood culture yesterday - Patient with increase risk for PNA/ UTI. Patient also with wound vac. Bilateral large frontal CVA Moyamoya Disease Seizure Disorder - Tegretol 200 mg q12h - Follow for seizure activity - Continue Bromocriptine - Tegretol level WNL. Keppra at lower dose 1000 mg twice a day. Hyperammonemia: - continue Lactulose 30 ml PO TID. - continue to monitor ammonia Mixed Systolic and diastolic heart failure, acute - Continue Lasix 20mg daily - On Entresto - Monitor electrolytes and renal function. Hyponatremia: Stable Hypokalemia: Stable - Monitor BMP Anasarca: Improving - Lasix daily Chronic Respiratory Failure Chronic obstructive pulmonary disease Multilobar pneumonia - Pulmonology following - Continue tracheostomy with supplemental oxygen to Maintain O2 sat greater than 92% - Tobramycin course ended on 01/20/17. - Levsin for increased secretions - Wean off O2, possible capping and decannulation Dysphagia Hypoalbuminemia - PEG placed. Continue TF. - Jevity 1.5 through PEG tube with Corby supplementation. - glucerna as pt. HgA1c 6.5 - Dietitian recommends Glucerna 1.5 360 mls at B, L D and HS Continue Corby as ordered. New onset DM - HgA1C 6.5 - Insulin S/S. monitor Accu-Cheks. Monitor for hypoglycemia. - ISS BID Sacral/Coccyx wound - Continue specialty bed. - Wound care following, wound vac continued. GI Prophylaxis: Pepcid. DVT prophylaxis: SCDs. Coumadin. Gil Melgar MD Mar 24, 2017 14:48
--- NOTE | 2017-03-24 16:18 | HHI.IDPN ---
Subjective Subjective Remarks Ms. Rivas is a 66-year-old female with past medical history significant for stroke who was on warfarin but had discontinued it, prior history of moyamoya disease. With this background patient was admitted to [facility] on November 04, 2016 with history of difficulty getting her thoughts together. She was found to have multifocal nonhemorrhagic infarcts in the left frontal and parietal regions, right frontal lobe and history of moyamoya disease. Review of records it appears that there were plans for extracranial intracranial bypass. However she had a seizure and ended up being intubated for status epilepticus. Subsequently she was found to have a new right frontal infarct and she was started on Dilantin and Keppra and deemed to be a suitable candidate for any further surgical intervention at that point. At the request of the family patient was transferred back to [facility]. At [facility] palliative care has been involved and per review of the records it appears that patient is currently full code and patient's family agreed to a trach and PEG tube placement. Upon further review of records it appears that patient isn't being treated for pneumonia due to a fever on November 27 with Zosyn IV and cultures with MSSA and pseudomonas aeruginosa. No reported seizures recently. Neurologically patient opens eyes spontaneously, but remains nonresponsive does not follow any commands. At the time of my evaluation patient is is in the [facility] currently not on any pressors, has a Brown in place. RN reports take white secretions moderate amounts. ID reconsulted for Strep bacteremia. Chart reviewed briefly. Had a chance to examine the sacral decub site. Wound vac in place but noted wound care notes and also noted minimal erythema in periwound site. No central lines in place or PICC etc,. Has a PIV. No fevers on day of culture order. No neuro change. Has diarrhea but Cdiff negative. Trach site with no e.o infection PEG tube site ok with no e.o infection. Antibiotics Was on Cipro but discontinued. Lines Line sites with no e.o infection. Past Medical History reviewed Allergies: Uncoded Allergies: YES, CAN'T REM. RELAXING MED. (Adverse Reaction, Intermediate, NECK TWISTS TO SIDE, 12/07/09) Objective . Vital Signs Date Time Temp Pulse Resp B/P Pulse Ox O2 Delivery O2 Flow Rate FiO2 03/24/17 16:00 93 03/24/17 15:00 91 03/24/17 15:00 97.8 82 22 129/79 100 03/24/17 14:00 69 03/24/17 13:00 80 03/24/17 12:00 82 03/24/17 11:00 98.5 94 22 139/77 99 03/24/17 11:00 95 03/24/17 10:00 92 03/24/17 09:22 97 T-piece 4.00 28 03/24/17 09:00 84 03/24/17 08:00 84 03/24/17 07:15 98.4 84 24 134/84 96 03/24/17 07:15 Trach Collar 6.00 28 03/24/17 07:00 85 03/24/17 04:00 84 03/24/17 04:00 99.0 91 20 130/82 99 03/24/17 01:06 93 T-piece 6.00 03/24/17 00:00 87 03/24/17 00:00 99.1 87 20 122/84 93 03/23/17 21:41 98 T-piece 6.00 28 03/23/17 20:00 85 03/23/17 20:00 99.0 89 20 118/66 95 03/23/17 20:00 97 Trach Collar 5.00 28 03/23/17 18:01 82 03/23/17 17:00 84 03/23/17 03/23/17 03/24/17 14:59 22:59 06:59 Intake Total 820 ml Output Total 700 ml 700 ml Balance 120 ml -700 ml Tube Feeding 720 ml Other 100 ml Output Urine Total 700 ml 700 ml # Voids 1 # Bowel Movements 1 . Laboratory Tests Test 03/23/17 05:40 Sodium Level 132 MEQ/L Potassium Level 4.0 MEQ/L Chloride Level 94 MEQ/L Carbon Dioxide Level 31.9 MEQ/L Anion Gap 6 MEQ/L Blood Urea Nitrogen 26 MG/DL Creatinine 0.48 MG/DL Estimat Glomerular Filtration 130 ML/MIN Rate Random Glucose 113 MG/DL Calcium Level 8.8 MG/DL Magnesium Level 2.4 MG/DL Microbiology Date/Time Procedure Status Source Growth 03/23/17 05:30 Aerobic Blood Culture - Preliminary Resulted Blood Peripheral NO GROWTH IN 1 DAY 03/23/17 05:30 Anaerobic Blood Culture - Final Resulted Blood Peripheral QNS - SEE AEROBE REPORT 03/23/17 05:40 Aerobic Blood Culture - Preliminary Resulted Blood Peripheral NO GROWTH IN 1 DAY 03/23/17 05:40 Anaerobic Blood Culture - Preliminary Resulted Blood Peripheral NO GROWTH IN 1 DAY Imaging Last Impressions Chest X-Ray 01/09/17 0000 Signed Impressions: Service Date/Time: Monday, January 09, 2017 11:56 - CONCLUSION: Mild bilateral pulmonary vasculature indistinctness suggesting pulmonary vascular congestion/mild pulmonary edema. Sami Mccarthy MD Brain MRI 01/06/17 0000 Signed Impressions: Service Date/Time: January 14:19 - CONCLUSION: Continued evolutionary changes of large bilateral frontal lobe infarcts. Sami Mccarthy MD Abdomen X-Ray 11/26/16 0000 Signed Impressions: Service Date/Time: Saturday, November 26, 2016 10:18 - CONCLUSION: Distended stomach otherwise nonspecific abdomen. Jackson Murillo MD Physical Exam GENERAL: Chronically ill appearing patient, in no apparent distress. SKIN: No rashes, ecchymoses or lesions. Cool and dry. HEAD: Atraumatic. Normocephalic. No temporal or scalp tenderness. EYES: Pupils equal round and reactive. Extraocular motions intact. No scleral icterus. No injection or drainage. ENT: Trach site with no e.o infection. CARDIOVASCULAR: Regular rate and rhythm without murmurs, gallops, or rubs. RESPIRATORY: Clear to auscultation. Breath sounds equal bilaterally. No wheezes , rales, or rhonchi. GASTROINTESTINAL: Abdomen soft, non-tender, nondistended. PEG tube site with no e.o infection. MUSCULOSKELETAL: Extremities without clubbing, cyanosis, or edema. NEUROLOGICAL: Opens eyes spontaneously.Tearful. Did not follow commands. Non verbal. Wound vac on sacrum: stool contamination of wound vac site. Surrounding erythema noted around wound vac site. Psych: ? depressed. IV line sites with no e.o infection Assessment & Plan Remarks Strep viridans bacteremia : ? Sacral decub infection cellulitis vs deeper infection ? ostemyelitis. Sputum with GNR and Staph aureus ? colonization. CXR normal, not much secretions. Urine with Kleb pneumo and E.coli : ? colonization. Bilateral frontal CVA left greater than right Moyamoya - confirmed by arteriogram at [facility] 10/22 Seizure disorder NOS Vent dependent respiratory failure COPD Coronary artery disease with prior myocardial infarction Hypertension Right ICA occlusion Dyslipidemia Recs Start Ceftriaxone IV Follow repeat blood cultures If repeat blood cultures negative plan on 2 weeks of Ceftriaxone IV. Follow cultures Follow clinically. d/w RN who assisted me in examining her back. Cheyenne Mcbride MD Mar 24, 2017 16:18
[2017-03-24] MEDS: WARFARIN SOD 10 MG TAB PEG SCH (16:54)
--- NOTE | 2017-03-24 18:42 | HHI.PR ---
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 Mod amount of trach secretions had VAC devise placed On Entresto 24-26 mg Objective Vital Signs Vital Signs Date Time Temp Pulse Resp B/P Pulse Ox O2 Delivery O2 Flow Rate FiO2 03/24/17 17:00 89 03/24/17 16:00 93 03/24/17 15:00 91 03/24/17 15:00 97.8 82 22 129/79 100 03/24/17 14:00 69 03/24/17 13:00 80 03/24/17 12:00 82 03/24/17 11:00 98.5 94 22 139/77 99 03/24/17 11:00 95 03/24/17 10:00 92 03/24/17 09:22 97 T-piece 4.00 28 03/24/17 09:00 84 03/24/17 08:00 84 03/24/17 07:15 98.4 84 24 134/84 96 03/24/17 07:15 Trach Collar 6.00 28 03/24/17 07:00 85 03/24/17 04:00 84 03/24/17 04:00 99.0 91 20 130/82 99 03/24/17 01:06 93 T-piece 6.00 03/24/17 00:00 87 03/24/17 00:00 99.1 87 20 122/84 93 03/23/17 21:41 98 T-piece 6.00 28 03/23/17 20:00 85 03/23/17 20:00 99.0 89 20 118/66 95 03/23/17 20:00 97 Trach Collar 5.00 28 I/O 03/23/17 03/23/17 03/23/17 03/24/17 03/24/17 03/24/17 06:59 14:59 22:59 06:59 14:59 22:59 Intake Total 1100 ml 820 ml 1500 ml Output Total 500 ml 700 ml 700 ml 1330 ml Balance 600 ml 120 ml -700 ml 170 ml Tube Feeding 700 ml 720 ml 720 ml Other 400 ml 100 ml 780 ml Output Urine Total 500 ml 700 ml 700 ml 1300 ml Drainage Total 30 ml # Voids 1 # Bowel Movements 1 1 2 Result Diagram: 03/22/17 0550 03/23/17 0540 Objective Remarks GENERAL: MBMN WF, on Trach collar SKIN: Warm and dry. HEAD: Normocephalic. EYES: No scleral icterus. No injection or drainage. NECK: Supple, trachea midline. No JVD or lymphadenopathy. has trach CARDIOVASCULAR: Regular rate and rhythm without murmurs, gallops, or rubs. RESPIRATORY: Breath sounds equal bilaterally. No accessory muscle use. GASTROINTESTINAL: Abdomen soft, non-tender, nondistended. has PEG MUSCULOSKELETAL: No cyanosis, or edema. BACK: Nontender without obvious deformity. No CVA tenderness. A/P Assessment and Plan RF, S/P Trach CVA Arango arango disease CAD COPD SZ disorder PLAN: Aerosol nebs Cont trach collar supplement 02, keep sat >90% Trach suction prn. PARTHA RN at BS. TF Cont Levsin. Vernon Marx MD Mar 24, 2017 18:42
[2017-03-24] MEDS: cefTRIAXone INJ 2,000 MG in SODIUM CHLORIDE 0.9% INJ 100 ML IV SCH (18:55)
[2017-03-25] VITALS (12 sets, daily range): BP systolic 97–121; BP diastolic 54–75; PULSE 69–143; RESP 18–20; TEMP 97.6–98.6; O2SAT 94–100
[2017-03-25] MEDS: FREE WATER G-TUBE SCH ×3 (05:17→21:28)
[2017-03-25] MEDS: HYOSCYAMINE SOLN 0.125 MG/ML 15 ML BTL G-TUBE SCH ×3 (05:17→16:25)
[2017-03-25] MEDS: RESP: ALBUTEROL 0.63 MG/3 ML NEB (SCH) NEB ×3 (08:00→11:23)
[2017-03-25] MEDS: RESP: IPRATROPIUM 0.5 MG/2.5 ML NEB NEB SCH ×5 (08:00→19:21)
--- NOTE | 2017-03-25 08:51 | HHI.PR ---
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 Mod amount of trach secretions had VAC devise On Entresto 24-26 mg Objective Vital Signs Vital Signs Date Time Temp Pulse Resp B/P Pulse Ox O2 Delivery O2 Flow Rate FiO2 03/25/17 08:49 100 T-piece 5.00 28 03/25/17 08:48 100 T-piece 5.00 28 03/25/17 04:00 98.6 79 20 115/61 99 03/25/17 02:01 99 T-piece 28 03/25/17 00:00 97.6 69 20 97/54 94 03/24/17 23:49 Trach Collar 5.00 03/24/17 20:00 98.8 86 22 115/74 98 03/24/17 17:00 89 03/24/17 16:00 93 03/24/17 15:00 91 03/24/17 15:00 97.8 82 22 129/79 100 03/24/17 14:00 69 03/24/17 13:00 80 03/24/17 12:00 82 03/24/17 11:00 98.5 94 22 139/77 99 03/24/17 11:00 95 03/24/17 10:00 92 03/24/17 09:22 97 T-piece 4.00 28 03/24/17 09:00 84 I/O 03/24/17 03/24/17 03/24/17 03/25/17 03/25/17 03/25/17 07:00 15:00 23:00 07:00 15:00 23:00 Intake Total 2145 ml Output Total 700 ml 1330 ml 350 ml Balance -700 ml 815 ml -350 ml IV Total 105 ml Tube Feeding 960 ml Other 1080 ml Output Urine Total 700 ml 1300 ml 350 ml Drainage Total 30 ml # Voids 1 1 # Bowel Movements 3 Result Diagram: 03/22/17 0550 03/23/17 0540 Objective Remarks GENERAL: MBMN WF, on Trach collar SKIN: Warm and dry. HEAD: Normocephalic. EYES: No scleral icterus. No injection or drainage. NECK: Supple, trachea midline. No JVD or lymphadenopathy. has trach CARDIOVASCULAR: Regular rate and rhythm without murmurs, gallops, or rubs. RESPIRATORY: Breath sounds equal bilaterally. No accessory muscle use. GASTROINTESTINAL: Abdomen soft, non-tender, nondistended. has PEG MUSCULOSKELETAL: No cyanosis, or edema. BACK: Nontender without obvious deformity. No CVA tenderness. A/P Assessment and Plan RF, S/P Trach CVA Arango arango disease CAD COPD SZ disorder PLAN: Aerosol nebs Cont trach collar supplement 02, keep sat >90% Trach suction prn. DW RN at BS. TF Cont Levsin. Available prn over weekend. Vernon Marx MD Mar 25, 2017 08:51
--- NOTE | 2017-03-25 09:14 | PD.CARD.PN ---
Subjective Subjective Remarks Awake, not responsive Objective Medications Current Medications Medications (Trade) Dose Ordered Sig/Ora Route Start Time Stop Time Status Last Admin (Peridex 0.12% Liq) 15 ml BID@08,20 MT 11/18/16 08:00 03/24/17 20:00 (NS Flush) 2 ml BID IV FLUSH 11/18/16 09:00 03/24/17 21:48 (Morphine Inj) 2 mg Q2H PRN IV 11/18/16 03:30 01/16/17 08:23 (Zofran Inj) 4 mg Q6H PRN IV 11/18/16 03:30 11/26/16 03:20 Miscellaneous Information 1 Q361D XX 11/18/16 03:30 11/18/16 03:30 (Chlorhexidine 2% Cloth) Taper DAILY@04 TOP 11/18/16 04:00 11/14/17 03:59 02/15/17 04:00 (Chlorhexidine 2% Cloth) 3 pack UNSCH PRN TOP 11/18/16 03:30 (Parlodel) 2.5 mg Q12HR OG-TUBE 11/18/16 09:00 03/24/17 21:55 (Folate) 1 mg DAILY OG-TUBE 11/18/16 09:00 03/24/17 10:09 (Dulcolax Supp) 10 mg DAILY PRN RECTAL 12/14/16 15:45 (Pepcid) 20 mg BID NG 12/21/16 21:00 03/24/17 21:48 (TEGretol LIQ) 200 mg Q12HR PEG 01/06/17 09:00 03/24/17 21:55 (Corby Powder) 1 pack BID G-TUBE 01/13/17 09:00 03/24/17 21:00 (Ferrous Sulfate Liq) 300 mg BID PEG 01/26/17 21:00 03/24/17 21:48 (Vitamin C) 500 mg BID PEG 01/26/17 21:00 03/24/17 21:48 (Belton 5-325 Mg) 1 tab Q4H PRN G-TUBE 02/01/17 11:30 03/08/17 21:44 (Tylenol) 650 mg Q6H PRN G-TUBE 02/01/17 09:30 (Lipitor) 40 mg DAILY G-TUBE 02/01/17 09:00 03/24/17 10:08 (Senna Liq) 8.8 mg BID G-TUBE 02/01/17 09:00 03/24/17 21:48 (D50w (Vial) Inj) 25 ml UNSCH PRN IV PUSH 02/01/17 09:15 Glucagon 1 mg 1 mg UNSCH PRN OTHER 02/01/17 09:15 (Coumadin Consult Pharmacy) 0 ml @ 0 mls/hr UNSCH OTHER 02/01/17 09:15 (Dakin'S 0.25% Soln) USE DAILY WITH DRESS... DAILY TOPICAL 02/12/17 18:00 03/24/17 10:13 (Betadine 10% Oint) 1 applic DAILY TOPICAL 02/15/17 09:00 03/18/17 07:29 (Lactulose Liq) 30 ml TID G-TUBE 02/21/17 13:00 03/24/17 18:54 (Zaroxolyn) 5 mg DAILY PEG 03/09/17 09:00 Hold 03/13/17 10:04 (Coumadin) 10 mg DAILY@16 PEG 03/08/17 16:00 03/24/17 16:54 (Entresto 24-26 Mg) 1 tab BID PEG 03/08/17 21:00 03/24/17 21:54 (Free Water) VOLUME OF WATER: ( 300 ) ML Q8HR G-TUBE 03/09/17 14:00 03/25/17 05:17 (Levsin Liq) 0.125 mg Q6H G-TUBE 03/10/17 18:00 03/25/17 05:17 (Lasix Inj) 20 mg DAILY IV PUSH 03/16/17 11:30 03/24/17 10:11 (KCl Powder) 20 meq DAILY NG 03/17/17 09:00 03/24/17 09:00 (NovoLOG SUPPLEMENTAL SCALE) 1 BID SQ 03/20/17 21:00 03/22/17 22:04 Metoprolol Tartrate 50 mg 50 mg Q12HR G-TUBE 03/21/17 09:00 03/24/17 21:48 (Cardizem Inj/NS Inj) 125 ml @ 0 mls/hr TITRATE IV 03/21/17 09:00 03/21/17 09:25 Levetriacetam 1000 mg 1,000 mg Q12HR NG 03/21/17 21:00 03/24/17 21:47 (Rocephin Inj/NS Inj) 100 ml @ 200 mls/hr Q24H IV 03/24/17 18:00 03/24/17 18:55 Vital Signs / I&O Vital Signs Date Time Temp Pulse Resp B/P Pulse Ox O2 Delivery O2 Flow Rate FiO2 03/25/17 08:49 100 T-piece 5.00 28 03/25/17 08:48 100 T-piece 5.00 28 03/25/17 08:00 98.4 83 18 117/63 95 03/25/17 04:00 98.6 79 20 115/61 99 03/25/17 02:01 99 T-piece 28 03/25/17 00:00 97.6 69 20 97/54 94 03/24/17 23:49 Trach Collar 5.00 03/24/17 20:00 98.8 86 22 115/74 98 03/24/17 17:00 89 03/24/17 16:00 93 03/24/17 15:00 91 03/24/17 15:00 97.8 82 22 129/79 100 03/24/17 14:00 69 03/24/17 13:00 80 03/24/17 12:00 82 03/24/17 11:00 98.5 94 22 139/77 99 03/24/17 11:00 95 03/24/17 10:00 92 03/24/17 09:22 97 T-piece 4.00 28 I/O 03/24/17 03/24/17 03/24/17 03/25/17 03/25/17 03/25/17 06:59 14:59 22:59 06:59 14:59 22:59 Intake Total 2145 ml Output Total 700 ml 1330 ml 350 ml Balance -700 ml 815 ml -350 ml IV Total 105 ml Tube Feeding 960 ml Other 1080 ml Output Urine Total 700 ml 1300 ml 350 ml Drainage Total 30 ml # Voids 1 1 # Bowel Movements 3 Physical Exam GENERAL: In NAD, poorly responsive SKIN: Warm and dry. HEAD: Normocephalic. EYES: No scleral icterus. No injection or drainage. NECK: Supple, trachea midline. No JVD or lymphadenopathy. Trach in place CARDIOVASCULAR: Regular rate and rhythm without murmurs, gallops, or rubs. RESPIRATORY: Breath sounds equal bilaterally. No accessory muscle use. GASTROINTESTINAL: Abdomen soft, non-tender, nondistended. MUSCULOSKELETAL: No cyanosis, or edema. Laboratory Laboratory Tests Test 03/21/17 03/22/17 03/23/17 03/24/17 02:35 05:50 05:40 05:35 Total Bilirubin 0.5 MG/DL Direct Bilirubin 0.3 MG/DL Indirect Bilirubin 0.2 MG/DL Aspartate Amino Transf 42 U/L (AST/SGOT) Alanine Aminotransferase 39 U/L (ALT/SGPT) Alkaline Phosphatase 157 U/L Total Protein 7.8 GM/DL Albumin 2.7 GM/DL Free Thyroxine 1.25 NG/DL Thyroid Stimulating Hormone 4.720 uIU/ML 3rd Gen White Blood Count 9.0 TH/MM3 Red Blood Count 3.35 MIL/MM3 Hemoglobin 8.1 GM/DL Hematocrit 24.6 % Mean Corpuscular Volume 73.3 FL Mean Corpuscular Hemoglobin 24.2 PG Mean Corpuscular Hemoglobin 33.0 % Concent Red Cell Distribution Width 19.7 % Platelet Count 475 TH/MM3 Mean Platelet Volume 7.5 FL Neutrophils (%) (Auto) 73.5 % Lymphocytes (%) (Auto) 14.0 % Monocytes (%) (Auto) 9.6 % Eosinophils (%) (Auto) 2.2 % Basophils (%) (Auto) 0.7 % Neutrophils # (Auto) 6.6 TH/MM3 Lymphocytes # (Auto) 1.3 TH/MM3 Monocytes # (Auto) 0.9 TH/MM3 Eosinophils # (Auto) 0.2 TH/MM3 Basophils # (Auto) 0.1 TH/MM3 CBC Comment DIFF FINAL Differential Comment Sodium Level 132 MEQ/L Potassium Level 4.0 MEQ/L Chloride Level 94 MEQ/L Carbon Dioxide Level 31.9 MEQ/L Anion Gap 6 MEQ/L Blood Urea Nitrogen 26 MG/DL Creatinine 0.48 MG/DL Estimat Glomerular Filtration 130 ML/MIN Rate Random Glucose 113 MG/DL Calcium Level 8.8 MG/DL Magnesium Level 2.4 MG/DL Prothrombin Time 21.5 SEC Prothromb Time International 1.9 RATIO Ratio Imaging Last Impressions Chest X-Ray 03/20/17 0000 Signed Impressions: Service Date/Time: Monday, March 20, 2017 11:37 - CONCLUSION: Stable appearance with no acute cardiopulmonary disease. Lenny Kerns MD Abdomen X-Ray 02/11/17 0000 Signed Impressions: Service Date/Time: Saturday, February 11, 2017 17:52 - CONCLUSION: Minimal colonic distention. Kenneth Frost MD FACR Catheter Change 02/10/17 0000 Signed Impressions: Service Date/Time: February 13:47 - CONCLUSION: Uncomplicated fluoroscopic guided gastrostomy tube replacement. Positioning confirmed. The tube can be used immediately. Nghia Pacheco MD Lower Extremity Ultrasound 02/01/17 0000 Signed Impressions: Service Date/Time: Wednesday, February 01, 2017 13:23 - CONCLUSION: Normal examination. 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 Sami Mccarthy MD Assessment and Plan Problem List: (1) Narrow complex tachycardia (2) CVA (cerebral vascular accident) (3) Seizure (4) Moyamoya disease (5) Encephalopathy (6) Accelerated essential hypertension (7) Respiratory failure, acute Assessment and Plan No new cardiac issues. Remains stable from cardiac standpoint. Rhythm stable. Continue current program including metoprolol. Anticipate transfer to long-term care facility. Klaus Panchal MD Mar 25, 2017 09:13
[2017-03-25 09:17] LABS: INTERNATIONAL NORMALIZED RATIO 2.5 RATIO; PROTHROMBIN TIME - PATIENT 28.3 SEC (9.8-11.6)
[2017-03-25] MEDS: SENNOSIDES SYRUP 8.8 MG/5 ML CUP G-TUBE SCH ×2 (10:18→21:29)
[2017-03-25] MEDS: FOLIC ACID 1 MG TAB OG-TUBE SCH (10:18)
[2017-03-25] MEDS: FERROUS SULFATE 300 MG /5ML UDC PEG SCH ×2 (10:18→21:28)
[2017-03-25] MEDS: ATORVASTATIN 40 MG TAB G-TUBE SCH (10:19)
[2017-03-25] MEDS: METOPROLOL TARTRATE 50 MG TAB G-TUBE SCH (10:19)
[2017-03-25] MEDS: FUROSEMIDE 20 MG/2 ML VIAL IV PUSH SCH (10:19)
[2017-03-25] MEDS: levETIRAcetam 500 MG/5 ML UDC NG SCH ×2 (10:19→21:29)
[2017-03-25] MEDS: ASCORBIC ACID 500 MG TAB PEG SCH ×2 (10:19→21:28)
[2017-03-25] MEDS: LACTULOSE SYRUP 20 GM/30 ML CUP G-TUBE SCH ×3 (10:19→18:04)
[2017-03-25] MEDS: FAMOTIDINE 20 MG TAB NG SCH ×2 (10:19→21:26)
[2017-03-25] MEDS: POTASSIUM CHLORIDE 20 MEQ PWD PACKET NG SCH (10:20)
[2017-03-25] MEDS: SODIUM CHLORIDE 0.9% FLUSH 10 ML FLUSH IV FLUSH SCH ×2 (10:20→21:29)
[2017-03-25] MEDS: CHLORHEXIDINE 0.12% (ORAL KIT) 15 ML CUP MT SCH ×2 (10:20→20:00)
[2017-03-25] MEDS: JUVEN POWDER 1 PACK G-TUBE SCH ×2 (10:20→21:00)
[2017-03-25] MEDS: SACUBITRIL/VALSARTAN 24 MG-26 MG TAB PEG SCH ×2 (10:21→21:27)
[2017-03-25] MEDS: carBAMazepine SUSP 200 MG/10 ML UDC PEG SCH ×2 (10:21→21:27)
[2017-03-25] MEDS: BROMOCRIPTINE MESYLATE 2.5 MG TAB OG-TUBE SCH ×2 (10:22→21:00)
[2017-03-25] MEDS: SODIUM HYPOCHLORITE 0.25% 500 ML BTL TOPICAL SCH (10:23)
[2017-03-25] MEDS: POVIDONE IODINE 10% OINT 30 GM TUBE TOPICAL SCH (10:23)
[2017-03-25] MEDS: INSULIN ASPART SUPPLEMENTAL SCALE SQ SCH ×2 (10:25→21:00)
[2017-03-25 11:02] LABS: AUTOMATED NEUTROPHIL # 9.4 TH/MM3 (1.8-7.7); BASOPHIL # 0.1 TH/MM3 (0-0.2); BASOPHIL % 0.5 % (0.0-2.0); EOSINOPHIL # 0.3 TH/MM3 (0-0.4); EOSINOPHIL % 2.5 % (0.0-4.0); HEMATOCRIT 31.3 % (35.0-46.0); HEMO FLAGS DIFF FINAL; LYMPH % 14.5 % (9.0-44.0); LYMPHOCYTE # 1.9 TH/MM3 (1.0-4.8); MEAN CELL VOLUME 76.2 FL (80.0-100.0); MEAN CORPUSCULAR HEMOGLOBIN 23.4 PG (27.0-34.0); MEAN CORPUSCULAR HGB CONC 30.7 % (32.0-36.0); MONO % 9.4 % (0.0-8.0); NEUT % 73.1 % (16.0-70.0); PLATELET COUNT 536 TH/MM3 (150-450); RED CELL DISTRIBUTION WIDTH 20.3 % (11.6-17.2); WHITE BLOOD COUNT 12.8 TH/MM3 (4.0-11.0)
--- NOTE | 2017-03-25 15:46 | PD.WCN.NOT ---
Wound Consult Description: Patient seen on Van for wound VAC dressing change to sacral Stage IV pressure injury Communicated with: MADISYN Lopez RN Recommendation: Povidone-Iodine wet to dry BID and PRN for saturation or dislodgement Cover with dry cover (bordered gauze) Date dressing Additional Information: Patient seen on Van for wound VAC dressing change. Patient positioned to her left side with assistance from [employer]. Dressing of black granufoam was removed from sacrum wound to reveal a necrotic, malodorus, vascular wound bed with ~80% necrotic adherent yellow/black tissue and ~10% muscle and ~10% bone visualized. Periwound is noted with discolored, thickened, blanchable erythema. Wound margins are open and noted with necrotic loosely adherent yellow/montemayor tissue at 4 o'clock. Wound was cleansed with 0.25% Dakins and gauze as ordered between dressing changes. A dressing of 0.25% Dakins moistened gauze was inserted into wound bed and covered with dry 4x4 gauze and secured with bordered gauze until orders could be obtained from physician for BID Povidone-Iodine wet to dry dressing changes. Neg Pressure Wound Therapy Wound Location Wound Location: sacral Wound Description Width: Additonal Information Wound VAC discontinued per MADISYN Lopez Audra [facility] Mar 25, 2017 15:45
[2017-03-25] MEDS ORDERED: WARFARIN SOD 5 MG TAB PO ONE (16:00)
[2017-03-25] MEDS: cefTRIAXone INJ 2,000 MG in SODIUM CHLORIDE 0.9% INJ 100 ML IV SCH (16:25)
[2017-03-25] MEDS: ACETAMINOPHEN/HYDROcodone 325 MG/5 MG TAB G-TUBE PRN (16:36)
[2017-03-25] MEDS ORDERED: METOPROLOL TARTRATE 25 MG TAB G-TUBE ONE (17:00)
--- NOTE | 2017-03-25 17:45 | HHI.PR ---
Subjective Remarks f/u on unresponsiveness. no acute issues o/n. fluctuating btw 4-6L. started on rocephin by ID for strep bacteremia, so far repeat bld cultures are NGTD. Nursing witnessed that Pt had a heart rate elevation to the 140s which spontaneously came down to the 90s then rebounded into the 140s. Patient clinically appeared to have no changes in her status per nursing. Concerned that patient is having residuals with her bolus feeds Objective Vital Signs Date Time Temp Pulse Resp B/P Pulse Ox O2 Delivery O2 Flow Rate FiO2 03/25/17 16:00 98.5 91 18 120/75 98 03/25/17 15:18 100 T-piece 6.00 28 03/25/17 12:00 98.3 89 18 121/63 100 03/25/17 10:53 T-Piece 5.00 03/25/17 10:53 84 03/25/17 08:49 100 T-piece 5.00 28 03/25/17 08:48 100 T-piece 5.00 28 03/25/17 08:00 98.4 83 18 117/63 95 03/25/17 04:00 98.6 79 20 115/61 99 03/25/17 02:01 99 T-piece 28 03/25/17 00:00 97.6 69 20 97/54 94 03/24/17 23:49 Trach Collar 5.00 03/24/17 20:00 98.8 86 22 115/74 98 I/O 03/24/17 03/24/17 03/24/17 03/25/17 03/25/17 03/25/17 07:00 15:00 23:00 07:00 15:00 23:00 Intake Total 2145 ml Output Total 700 ml 1330 ml 350 ml 1600 ml Balance -700 ml 815 ml -350 ml -1600 ml IV Total 105 ml Tube Feeding 960 ml Other 1080 ml Output Urine Total 700 ml 1300 ml 350 ml 1600 ml Drainage Total 30 ml # Voids 1 1 # Bowel Movements 3 1 Result Diagram: 03/25/17 0838 03/23/17 0540 Procedures 11/24/2016 Percutaneous tracheostomy. Objective Remarks GENERAL: on trach, NAD, not awaking to her name today, keeps eyes closed and spontaneously moves her head slightly intermittently, no tremor CARDIOVASCULAR: Regular rate and rhythm without murmurs, gallops, or rubs. RESPIRATORY: Breath sounds equal and clear bilaterally. Unlabored breathing GASTROINTESTINAL: Abdomen soft, non-tender, minimal distention A/P Assessment and Plan 65-year-old female with past medical history of CVA for which she at one point was on warfarin but had been discontinued. She was was admitted to [facility] emergency department 11/04/16 with difficulty getting her thoughts together. She was found to have multifocal ischemic infarcts in left frontal and parietal regions, right frontal lobe and history of moyamoya disease. She was initially awake and following commands with weakness of RLE and some aphasia. She was transferred to [facility] where he had an cerebral angiogram consistent with moyamoya. There were plans to perform extracranial/ intracranial bypass. However she had a seizure and ended up being intubated for status epilepticus 11/2016 She was found to have a new right frontal infarct area and she was started on Dilantin and Keppra and it was felt that she would not be a candidate for intervention. She has been intubated 9-10 days. Treating team was discussing with family trach/PEG. Family requested transfer back to [place] because they live locally here and wanted her closer to home. Patient remained under critical care medicine until 12/24/2016. arrhythmias - Narrow complex tachycardia history of A. fib. TSH not suppressed. Electrolytes unremarkable .echocardiogram showing combined systolic and basilar dysfunction, severe TR, MR and pulmonary hypertension. Rate controlled on Lopressor 50 mg twice a day status post Cardizem drip. --> Cardiology following - increased Lopressor to 75 mg twice a day response to fluctuating tachycardia Sepsis - UA positive, culture polymicrobial likely colonization discontinued IV ciprofloxacin. Brown catheter recently changed - Viridans strep in 2 anaerobic bottles. GPC in 2 aerobic bottles. No leukocytosis. Real versus pseudo-bacteremia. Repeated blood culture 2 days ago , so far NGTD On rocephin per ID now. - Patient with increase risk for PNA/ UTI. Patient also with wound vac. Bilateral large frontal CVA Moyamoya Disease Seizure Disorder - Tegretol 200 mg q12h - Follow for seizure activity - Continue Bromocriptine - Tegretol level WNL. Keppra at lower dose 1000 mg twice a day. Hyperammonemia: - continue Lactulose 30 ml PO TID. - continue to monitor ammonia Mixed Systolic and diastolic heart failure, acute - Continue Lasix 20mg daily - On Entresto - Monitor electrolytes and renal function. Hyponatremia: Stable Hypokalemia: Stable - Monitor BMP Anasarca: Improving - Lasix daily Chronic Respiratory Failure Chronic obstructive pulmonary disease Multilobar pneumonia - Pulmonology following - Continue tracheostomy with supplemental oxygen to Maintain O2 sat greater than 92% - Tobramycin course ended on 01/20/17. - Levsin for increased secretions - Wean off O2, possible capping and decannulation Dysphagia Hypoalbuminemia - PEG placed. Continue TF. - Jevity 1.5 through PEG tube with Corby supplementation. - glucerna as pt. HgA1c 6.5 - Dietitian recommends Glucerna 1.5 360 mls at B, L D and HS Continue Corby as ordered. Will start reglan if having BMs to assist with residuals. New onset DM - HgA1C 6.5 - Insulin S/S. monitor Accu-Cheks. Monitor for hypoglycemia. - ISS BID Sacral/Coccyx wound - Continue specialty bed. - Wound care following, wound vac continued. GI Prophylaxis: Pepcid. DVT prophylaxis: SCDs. Coumadin. Gil Melgar MD Mar 25, 2017 17:45 Gil Melgar MD Mar 25, 2017 17:45
[2017-03-25] MEDS: METOPROLOL TARTRATE 25 MG TAB G-TUBE SCH (21:26)
[2017-03-26] VITALS (9 sets, daily range): BP systolic 101–126; BP diastolic 54–69; PULSE 76–110; RESP 20–24; TEMP 98.3–100.7; O2SAT 97–100
[2017-03-26] MEDS: HYOSCYAMINE SOLN 0.125 MG/ML 15 ML BTL G-TUBE SCH ×4 (00:25→16:35)
[2017-03-26] MEDS: ACETAMINOPHEN 325 MG TAB G-TUBE PRN (02:43)
[2017-03-26] MEDS: CHLORHEXIDINE GLUCONATE 2 % 1 PACK (2 CLOTHS) TOP SCH (04:00)
[2017-03-26] MEDS: FREE WATER G-TUBE SCH ×3 (05:10→21:35)
[2017-03-26] MEDS: RESP: IPRATROPIUM 0.5 MG/2.5 ML NEB NEB SCH ×4 (08:26→20:40)
[2017-03-26] MEDS: FERROUS SULFATE 300 MG /5ML UDC PEG SCH ×2 (09:00→21:32)
[2017-03-26] MEDS: ASCORBIC ACID 500 MG TAB PEG SCH ×2 (09:00→21:32)
[2017-03-26] MEDS: SODIUM HYPOCHLORITE 0.25% 500 ML BTL TOPICAL SCH (09:00)
[2017-03-26] MEDS: INSULIN ASPART SUPPLEMENTAL SCALE SQ SCH ×2 (09:00→21:00)
[2017-03-26] MEDS: LACTULOSE SYRUP 20 GM/30 ML CUP G-TUBE SCH ×3 (09:00→16:34)
[2017-03-26] MEDS: FOLIC ACID 1 MG TAB OG-TUBE SCH (09:00)
[2017-03-26] MEDS: ATORVASTATIN 40 MG TAB G-TUBE SCH (09:01)
[2017-03-26] MEDS: SENNOSIDES SYRUP 8.8 MG/5 ML CUP G-TUBE SCH ×2 (09:01→21:35)
[2017-03-26] MEDS: METOPROLOL TARTRATE 25 MG TAB G-TUBE SCH ×2 (09:01→21:33)
[2017-03-26] MEDS: FUROSEMIDE 20 MG/2 ML VIAL IV PUSH SCH (09:01)
[2017-03-26] MEDS: FAMOTIDINE 20 MG TAB NG SCH ×2 (09:01→21:33)
[2017-03-26] MEDS: levETIRAcetam 500 MG/5 ML UDC NG SCH ×2 (09:01→21:32)
[2017-03-26] MEDS: JUVEN POWDER 1 PACK G-TUBE SCH ×2 (09:02→21:00)
[2017-03-26] MEDS: SODIUM CHLORIDE 0.9% FLUSH 10 ML FLUSH IV FLUSH SCH ×2 (09:02→21:34)
[2017-03-26] MEDS: POTASSIUM CHLORIDE 20 MEQ PWD PACKET NG SCH (09:02)
[2017-03-26] MEDS: CHLORHEXIDINE 0.12% (ORAL KIT) 15 ML CUP MT SCH ×2 (09:02→20:00)
[2017-03-26] MEDS: POVIDONE IODINE 10% OINT 30 GM TUBE TOPICAL SCH (09:03)
[2017-03-26] MEDS: SACUBITRIL/VALSARTAN 24 MG-26 MG TAB PEG SCH ×2 (09:35→21:32)
[2017-03-26] MEDS: BROMOCRIPTINE MESYLATE 2.5 MG TAB OG-TUBE SCH ×2 (09:35→21:33)
[2017-03-26] MEDS: carBAMazepine SUSP 200 MG/10 ML UDC PEG SCH ×2 (09:36→21:34)
[2017-03-26 11:10] LABS: INTERNATIONAL NORMALIZED RATIO 2.4 RATIO; PROTHROMBIN TIME - PATIENT 27.2 SEC (9.8-11.6)
[2017-03-26] MEDS ORDERED: WARFARIN SOD 5 MG TAB PO SCH (16:00)
[2017-03-26] MEDS: cefTRIAXone INJ 2,000 MG in SODIUM CHLORIDE 0.9% INJ 100 ML IV SCH (16:34)
--- NOTE | 2017-03-26 18:19 | HHI.PR ---
Subjective Remarks f/u on unresponsiveness. no acute issues o/n. fluctuating btw 4-6L. on rocephin by ID for strep bacteremia, so far repeat bld cultures are NGTD. HR stable today, no fevers noted. pt tolerating bolus feeds well today per nursing Objective Vital Signs Date Time Temp Pulse Resp B/P Pulse Ox O2 Delivery O2 Flow Rate FiO2 03/26/17 16:45 99 T-Piece 5.00 28 03/26/17 16:00 98.3 88 22 107/61 98 03/26/17 12:53 98 T-Piece 5.00 28 03/26/17 12:00 98.5 76 22 101/60 100 03/26/17 11:21 90 03/26/17 08:52 100 T-Piece 5.00 28 03/26/17 08:30 98 T-piece 5.00 28 03/26/17 08:30 98 T-piece 5.00 28 03/26/17 08:00 99.7 91 24 126/67 100 03/26/17 04:35 T-Piece 5.00 03/26/17 04:00 98.5 93 22 122/69 98 03/26/17 00:00 100.7 110 22 116/54 97 03/26/17 00:00 T-Piece 5.00 03/25/17 20:40 86 03/25/17 20:00 T-Piece 5.00 03/25/17 20:00 97.7 86 20 112/66 99 I/O 03/25/17 03/25/17 03/25/17 03/26/17 03/26/17 03/26/17 07:00 15:00 23:00 07:00 15:00 23:00 Intake Total 405 ml 660 ml Output Total 350 ml 1600 ml 925 ml Balance -350 ml -1600 ml 405 ml 660 ml -925 ml IV Total 105 ml Tube Feeding 360 ml Other 300 ml 300 ml Output Urine Total 350 ml 1600 ml 925 ml # Bowel Movements 1 1 Result Diagram: 03/25/17 0838 03/23/17 0540 Procedures 11/24/2016 Percutaneous tracheostomy. Objective Remarks GENERAL: on trach, NAD, not awaking to her name today, keeps eyes closed, not moving her head CARDIOVASCULAR: Regular rate and rhythm without murmurs, gallops, or rubs. RESPIRATORY: Breath sounds are coarse BL Unlabored breathing, on trach GASTROINTESTINAL: Abdomen soft, non-tender, minimal distention A/P Assessment and Plan 65-year-old female with past medical history of CVA for which she at one point was on warfarin but had been discontinued. She was was admitted to [facility] emergency department 11/04/16 with difficulty getting her thoughts together. She was found to have multifocal ischemic infarcts in left frontal and parietal regions, right frontal lobe and history of moyamoya disease. She was initially awake and following commands with weakness of RLE and some aphasia. She was transferred to [facility] where he had an cerebral angiogram consistent with moyamoya. There were plans to perform extracranial/ intracranial bypass. However she had a seizure and ended up being intubated for status epilepticus 11/2016 She was found to have a new right frontal infarct area and she was started on Dilantin and Keppra and it was felt that she would not be a candidate for intervention. She has been intubated 9-10 days. Treating team was discussing with family trach/PEG. Family requested transfer back to [place] because they live locally here and wanted her closer to home. Patient remained under critical care medicine until 12/24/2016. arrhythmias - Narrow complex tachycardia history of A. fib. TSH not suppressed. Electrolytes unremarkable .echocardiogram showing combined systolic and basilar dysfunction, severe TR, MR and pulmonary hypertension. Rate controlled on Lopressor 50 mg twice a day status post Cardizem drip. --> Cardiology following - increased Lopressor to 75 mg twice a day response to fluctuating tachycardia - now stable Sepsis - UA positive, culture polymicrobial likely colonization discontinued IV ciprofloxacin. Brown catheter recently changed - Viridans strep in 2 anaerobic bottles. GPC in 2 aerobic bottles. No leukocytosis. Real versus pseudo-bacteremia. Repeated blood culture 3 days ago , so far NGTD On rocephin per ID now. - Patient with increase risk for PNA/ UTI. Patient also with wound vac. Bilateral large frontal CVA Moyamoya Disease Seizure Disorder - Tegretol 200 mg q12h - Follow for seizure activity - Continue Bromocriptine - Tegretol level WNL. Keppra at lower dose 1000 mg twice a day. Hyperammonemia: - continue Lactulose 30 ml PO TID. - continue to monitor ammonia Mixed Systolic and diastolic heart failure, acute - Continue Lasix 20mg daily - On Entresto - Monitor electrolytes and renal function. Hyponatremia: Stable Hypokalemia: Stable - Monitor BMP Anasarca: Improving - Lasix daily Chronic Respiratory Failure Chronic obstructive pulmonary disease Multilobar pneumonia - Pulmonology following - Continue tracheostomy with supplemental oxygen to Maintain O2 sat greater than 92% - Tobramycin course ended on 01/20/17. - Levsin for increased secretions - Wean off O2, possible capping and decannulation Dysphagia Hypoalbuminemia - PEG placed. Continue TF. - Jevity 1.5 through PEG tube with Corby supplementation. - glucerna as pt. HgA1c 6.5 - Dietitian recommends Glucerna 1.5 360 mls at B, L D and HS Continue [place] as ordered. New onset DM - HgA1C 6.5 - Insulin S/S. monitor Accu-Cheks. Monitor for hypoglycemia. - ISS BID Sacral/Coccyx wound - Continue specialty bed. - Wound care following GI Prophylaxis: Pepcid. DVT prophylaxis: SCDs. Coumadin. Gil Melgar MD Mar 26, 2017 18:19
[2017-03-27] VITALS (9 sets, daily range): BP systolic 105–129; BP diastolic 52–75; PULSE 76–94; RESP 16–20; TEMP 98.1–99.3; O2SAT 96–100
[2017-03-27] MEDS: HYOSCYAMINE SOLN 0.125 MG/ML 15 ML BTL G-TUBE SCH ×4 (01:31→16:47)
[2017-03-27] MEDS: CHLORHEXIDINE GLUCONATE 2 % 1 PACK (2 CLOTHS) TOP SCH (03:29)
[2017-03-27] MEDS: FREE WATER G-TUBE SCH ×3 (04:47→21:46)
[2017-03-27 05:36] LABS: AUTOMATED NEUTROPHIL # 5.8 TH/MM3 (1.8-7.7); BASOPHIL # 0.1 TH/MM3 (0-0.2); EOSINOPHIL # 0.2 TH/MM3 (0-0.4); EOSINOPHIL % 2.6 % (0.0-4.0); HEMO FLAGS DIFF FINAL; LYMPH % 20.2 % (9.0-44.0); LYMPHOCYTE # 1.8 TH/MM3 (1.0-4.8); MEAN CORPUSCULAR HEMOGLOBIN 23.7 PG (27.0-34.0); MONO % 9.7 % (0.0-8.0); NEUT % 66.5 % (16.0-70.0); PLATELET COUNT 556 TH/MM3 (150-450); RED BLOOD COUNT 3.52 MIL/MM3 (4.00-5.30); RED CELL DISTRIBUTION WIDTH 19.7 % (11.6-17.2); WHITE BLOOD COUNT 8.8 TH/MM3 (4.0-11.0)
[2017-03-27 05:38] LABS: INTERNATIONAL NORMALIZED RATIO 1.7 RATIO; PROTHROMBIN TIME - PATIENT 19.2 SEC (9.8-11.6)
[2017-03-27] MEDS: INSULIN ASPART SUPPLEMENTAL SCALE SQ SCH ×2 (09:00→21:00)
[2017-03-27] MEDS: LACTULOSE SYRUP 20 GM/30 ML CUP G-TUBE SCH ×3 (09:00→16:47)
[2017-03-27] MEDS: SODIUM HYPOCHLORITE 0.25% 500 ML BTL TOPICAL SCH (09:00)
[2017-03-27] MEDS: METOPROLOL TARTRATE 25 MG TAB G-TUBE SCH ×2 (09:59→17:13)
[2017-03-27] MEDS: JUVEN POWDER 1 PACK G-TUBE SCH ×2 (09:59→21:44)
[2017-03-27] MEDS: ASCORBIC ACID 500 MG TAB PEG SCH ×2 (09:59→21:43)
[2017-03-27] MEDS: FOLIC ACID 1 MG TAB OG-TUBE SCH (09:59)
[2017-03-27] MEDS: carBAMazepine SUSP 200 MG/10 ML UDC PEG SCH ×2 (09:59→21:43)
[2017-03-27] MEDS: FAMOTIDINE 20 MG TAB NG SCH ×2 (09:59→21:43)
[2017-03-27] MEDS: levETIRAcetam 500 MG/5 ML UDC NG SCH ×2 (09:59→21:43)
[2017-03-27] MEDS: FUROSEMIDE 20 MG/2 ML VIAL IV PUSH SCH (09:59)
[2017-03-27] MEDS: POVIDONE IODINE 10% OINT 30 GM TUBE TOPICAL SCH (09:59)
[2017-03-27] MEDS: BROMOCRIPTINE MESYLATE 2.5 MG TAB OG-TUBE SCH ×2 (09:59→21:42)
[2017-03-27] MEDS: ATORVASTATIN 40 MG TAB G-TUBE SCH (09:59)
[2017-03-27] MEDS: CHLORHEXIDINE 0.12% (ORAL KIT) 15 ML CUP MT SCH ×2 (09:59→19:31)
[2017-03-27] MEDS: SODIUM CHLORIDE 0.9% FLUSH 10 ML FLUSH IV FLUSH SCH ×2 (09:59→21:42)
[2017-03-27] MEDS: SACUBITRIL/VALSARTAN 24 MG-26 MG TAB PEG SCH ×2 (09:59→21:00)
[2017-03-27] MEDS: SENNOSIDES SYRUP 8.8 MG/5 ML CUP G-TUBE SCH ×2 (09:59→21:00)
[2017-03-27] MEDS: FERROUS SULFATE 300 MG /5ML UDC PEG SCH ×2 (09:59→21:43)
[2017-03-27] MEDS: POTASSIUM CHLORIDE 20 MEQ PWD PACKET NG SCH (09:59)
[2017-03-27] MEDS: MORPHINE SULFATE 4 MG/ML INJ IV PRN (10:13)
[2017-03-27] MEDS ORDERED: ADENOSINE IV SOLN 3 MG/ML 2 ML VIAL ONE ×3 (10:57→11:10)
--- NOTE | 2017-03-27 13:02 | PD.CARD.PN ---
Subjective Subjective Remarks Covering Dr. Panchal. CTSP due to tachycardia with rates 150-170. Hemodynamics stable. Objective Medications Current Medications Medications (Trade) Dose Ordered Sig/Ora Route PRN Reason Start Time Stop Time Status Last Admin Dose Admin Chlorhexidine Gluconate (Peridex 0.12% Liq) 15 ml BID@08,20 MT 11/18/16 08:00 03/26/17 20:00 Sodium Chloride (NS Flush) 2 ml BID IV FLUSH 11/18/16 09:00 03/26/17 21:34 Morphine Sulfate (Morphine Inj) 2 mg Q2H PRN IV PAIN SCALE 6 TO 10 11/18/16 03:30 01/16/17 08:23 Ondansetron HCl (Zofran Inj) 4 mg Q6H PRN IV NAUSEA OR VOMITING 11/18/16 03:30 11/26/16 03:20 Miscellaneous Information 1 Q361D XX 11/18/16 03:30 11/18/16 03:30 Chlorhexidine Gluconate (Chlorhexidine 2% Cloth) Taper DAILY@04 TOP 11/18/16 04:00 11/14/17 03:59 03/27/17 03:29 Chlorhexidine Gluconate (Chlorhexidine 2% Cloth) 3 pack UNSCH PRN TOP HYGIENIC CARE 11/18/16 03:30 Bromocriptine Mesylate (Parlodel) 2.5 mg Q12HR OG-TUBE 11/18/16 09:00 03/26/17 21:33 Folic Acid (Folate) 1 mg DAILY OG-TUBE 11/18/16 09:00 03/26/17 09:00 Bisacodyl (Dulcolax Supp) 10 mg DAILY PRN RECTAL CONSTIPATION 12/14/16 15:45 Famotidine (Pepcid) 20 mg BID NG 12/21/16 21:00 03/26/17 21:33 Carbamazepine (TEGretol LIQ) 200 mg Q12HR PEG 01/06/17 09:00 03/26/17 21:34 Arginine HCl (Corby Powder) 1 pack BID G-TUBE 01/13/17 09:00 03/26/17 21:00 Ferrous Sulfate (Ferrous Sulfate Liq) 300 mg BID PEG 01/26/17 21:00 03/26/17 21:32 Ascorbic Acid (Vitamin C) 500 mg BID PEG 01/26/17 21:00 03/26/17 21:32 Acetaminophen/ Hydrocodone Bitart ([place] 5-325 Mg) 1 tab Q4H PRN G-TUBE PAIN SCALE 1 - 5 02/01/17 11:30 03/25/17 16:36 Acetaminophen (Tylenol) 650 mg Q6H PRN G-TUBE FEVER >101F 02/01/17 09:30 03/26/17 02:43 Atorvastatin Calcium (Lipitor) 40 mg DAILY G-TUBE 02/01/17 09:00 03/26/17 09:01 Sennosides (Senna Liq) 8.8 mg BID G-TUBE 02/01/17 09:00 03/26/17 21:35 Dextrose (D50w (Vial) Inj) 25 ml UNSCH PRN IV PUSH HYPOGLYCEMIA - SEE COMMENTS 02/01/17 09:15 Glucagon (Glucagon Inj) 1 mg UNSCH PRN OTHER HYPOGLYCEMIA-SEE COMMENTS 02/01/17 09:15 Pharmacy Profile Note 0 ml @ 0 mls/hr UNSCH OTHER 02/01/17 09:15 Sodium Hypochlorite (Dakin'S 0.25% Soln) USE DAILY WITH DRESS... DAILY TOPICAL 02/12/17 18:00 03/25/17 10:23 Povidone Iodine (Betadine 10% Oint) 1 applic DAILY TOPICAL 02/15/17 09:00 03/26/17 09:03 Lactulose (Lactulose Liq) 30 ml TID G-TUBE 02/21/17 13:00 03/26/17 16:34 Metolazone (Zaroxolyn) 5 mg DAILY PEG 03/09/17 09:00 Future Hold 03/13/17 10:04 Warfarin Sodium (Coumadin) 10 mg DAILY@16 PEG 03/08/17 16:00 Future Hold 03/24/17 16:54 Sacubitril/ Valsartan (Entresto 24-26 Mg) 1 tab BID PEG 03/08/17 21:00 03/26/17 21:32 Water (Free Water) VOLUME OF WATER: ( 300 ) ML Q8HR G-TUBE 03/09/17 14:00 03/27/17 04:47 Hyoscyamine Sulfate (Levsin Liq) 0.125 mg Q6H G-TUBE 03/10/17 18:00 03/27/17 04:47 Furosemide (Lasix Inj) 20 mg DAILY IV PUSH 03/16/17 11:30 03/26/17 09:01 Potassium Chloride (KCl Powder) 20 meq DAILY NG 03/17/17 09:00 03/26/17 09:02 Insulin Aspart (NovoLOG SUPPLEMENTAL SCALE) 1 BID SQ 03/20/17 21:00 03/22/17 22:04 Albuterol Sulfate (Albuterol Neb) 0.63 mg Q4HR NEB PRN NEB SHORTNESS OF BREATH 03/21/17 09:15 Ipratropium [place] (Atrovent Neb) 0.5 mg QID NEB NEB 03/21/17 12:00 03/26/17 20:40 Levetriacetam (Keppra Liq) 1,000 mg Q12HR NG 03/21/17 21:00 03/26/17 21:32 Ceftriaxone Sodium 2000 mg/ Sodium Chloride 100 ml @ 200 mls/hr Q24H IV 03/24/17 18:00 03/26/17 16:34 Metoprolol Tartrate (Lopressor) 75 mg BID G-TUBE 03/25/17 21:00 03/26/17 21:33 Vital Signs / I&O Vital Signs Date Time Temp Pulse Resp B/P (MAP) Pulse Ox O2 Delivery O2 Flow Rate FiO2 03/27/17 07:24 98 T-Piece 5.00 28 03/27/17 04:00 99.1 90 20 111/54 (73) 97 03/27/17 00:00 99.3 80 20 105/52 (69) 100 03/26/17 20:50 97 T-piece 5.00 28 03/26/17 20:00 101 03/26/17 20:00 T-Piece 5.00 28 03/26/17 20:00 99.6 100 20 111/54 (73) 100 03/26/17 16:45 99 T-Piece 5.00 28 03/26/17 16:00 98.3 88 22 107/61 (76) 98 I/O 03/26/17 03/26/17 03/26/17 03/27/17 03/27/17 03/27/17 06:59 14:59 22:59 06:59 14:59 22:59 Intake Total 660 ml 350 ml Output Total 925 ml 500 ml Balance 660 ml -925 ml 350 ml -500 ml Tube Feeding 360 ml 350 ml Other 300 ml Output Urine Total 925 ml 500 ml # Bowel Movements 1 Physical Exam Physical Exam On mechanical vent support. GENERAL: In NAD, poorly responsive SKIN: Warm and dry. HEAD: Normocephalic. EYES: No scleral icterus. No injection or drainage. NECK: Supple, trachea midline. No JVD or lymphadenopathy. Trach in place CARDIOVASCULAR: Regular rate and rhythm without murmurs, gallops, or rubs. RESPIRATORY: Breath sounds equal bilaterally. No accessory muscle use. GASTROINTESTINAL: Abdomen soft, non-tender, nondistended. MUSCULOSKELETAL: No cyanosis, or edema. Laboratory Laboratory Tests Test 03/27/17 04:18 White Blood Count 8.8 TH/MM3 Red Blood Count 3.52 MIL/MM3 Hemoglobin 8.3 GM/DL Hematocrit 26.0 % Mean Corpuscular Volume 74.0 FL Mean Corpuscular Hemoglobin 23.7 PG Mean Corpuscular Hemoglobin Concent 32.0 % Red Cell Distribution Width 19.7 % Platelet Count 556 TH/MM3 Mean Platelet Volume 7.3 FL Neutrophils (%) (Auto) 66.5 % Lymphocytes (%) (Auto) 20.2 % Monocytes (%) (Auto) 9.7 % Eosinophils (%) (Auto) 2.6 % Basophils (%) (Auto) 1.0 % Neutrophils # (Auto) 5.8 TH/MM3 Lymphocytes # (Auto) 1.8 TH/MM3 Monocytes # (Auto) 0.9 TH/MM3 Eosinophils # (Auto) 0.2 TH/MM3 Basophils # (Auto) 0.1 TH/MM3 CBC Comment DIFF FINAL Differential Comment Prothrombin Time 19.2 SEC Prothromb Time International Ratio 1.7 RATIO Assessment and Plan Problem List: (1) Narrow complex tachycardia ICD Codes: I47.1 - Supraventricular tachycardia Status: Acute (2) CVA (cerebral vascular accident) ICD Codes: I63.9 - Cerebral infarction, unspecified Status: Acute (3) Seizure ICD Codes: R56.9 - Unspecified convulsions Status: Acute (4) Moyamoya disease ICD Codes: I67.5 - Moyamoya disease Status: Acute (5) Encephalopathy ICD Codes: G93.40 - Encephalopathy, unspecified Status: Acute (6) Accelerated essential hypertension ICD Codes: I10 - Accelerated essential hypertension Status: Acute (7) Respiratory failure, acute ICD Codes: J96.00 - Acute respiratory failure, unspecified whether with hypoxia or hypercapnia Status: Acute Assessment and Plan Recurrent PSVT reponded to Adenosine 6 mg IVP. Now in sinus rhythm. Increase metoprolol 50 mg q6h via ngt. Dr. Bean is covering for Dr. Panchal tomorrow. Discussed Condition With Discussed with hospitalist and staff research scientist. Jeison Flannery MD Mar 27, 2017 13:02
[2017-03-27 14:38] LABS: BICARBONATE 31.2 MEQ/L (21.0-32.0); MAGNESIUM 2.3 MG/DL (1.5-2.5); POTASSIUM 4.3 MEQ/L (3.5-5.1)
--- NOTE | 2017-03-27 14:42 | HHI.PR ---
Subjective Remarks Called to the floor for critical alert. Nursing staff was cleaning the patient entering her over when her heart rate jumped from the 90s to the 160s within a matter of a few seconds. Patient was awake and diaphoretic; her blood pressure is holding steady and saturations were holding good on supplemental O2 with no increase in oxygen demand. Patient's diminished mental status did not change either. Evaluated telemetry strips which appeared to be nonspecified SVT. Cardiology contacted, pushed adenosine 6 mg IV, heart rate initially responded for a few seconds, did note a separate P waves however SVT recurred again into the 160s. Has preparations were being made for repeat dosing, the patient's heart rate slowed down into the 110s. Aggregate critical care time was 35 minutes spent at bedside or in hospital no. Time to perform other separately billable procedures were not included in the critical care time. My time did not include minutes spent treating any other patients simultaneously or on activities that did not directly contra be due to the patient's treatment. The services are provided to the patient were to treat and/or prevent clinically significant deterioration echo result in: Organ failure, , disability or eminent clinical deterioration in the patient's condition. I provided critical care services requiring my management , as noted above: Chart was reviewed, medications were ordered, vital signs were assessed. Discussed care of patient with seafood harvester on-call. Objective Vital Signs Date Time Temp Pulse Resp B/P (MAP) Pulse Ox O2 Delivery O2 Flow Rate FiO2 03/27/17 14:14 93 03/27/17 12:00 98.1 82 16 122/70 (87) 98 03/27/17 08:00 98.7 94 18 129/62 (84) 100 03/27/17 07:24 98 T-Piece 5.00 28 03/27/17 04:00 99.1 90 20 111/54 (73) 97 03/27/17 00:00 99.3 80 20 105/52 (69) 100 03/26/17 20:50 97 T-piece 5.00 28 03/26/17 20:00 101 03/26/17 20:00 T-Piece 5.00 28 03/26/17 20:00 99.6 100 20 111/54 (73) 100 03/26/17 16:45 99 T-Piece 5.00 28 03/26/17 16:00 98.3 88 22 107/61 (27) 98 I/O 03/26/17 03/26/17 03/26/17 03/27/17 03/27/17 03/27/17 07:00 15:00 23:00 07:00 15:00 23:00 Intake Total 660 ml 350 ml Output Total 925 ml 500 ml Balance 660 ml -925 ml 350 ml -500 ml Tube Feeding 360 ml 350 ml Other 300 ml Output Urine Total 925 ml 500 ml # Bowel Movements 1 Result Diagram: 03/27/17 0418 03/23/17 0540 Procedures 11/24/2016 Percutaneous tracheostomy. Objective Remarks GENERAL: on trach, NAD, not awaking to her name today, keeps eyes closed, not moving her head CARDIOVASCULAR: Regular rate and rhythm without murmurs, gallops, or rubs. RESPIRATORY: Breath sounds are coarse BL Unlabored breathing, on trach GASTROINTESTINAL: Abdomen soft, non-tender, minimal distention A/P Assessment and Plan 65-year-old female with past medical history of CVA for which she at one point was on warfarin but had been discontinued. She was was admitted to [facility] emergency department 11/04/16 with difficulty getting her thoughts together. She was found to have multifocal ischemic infarcts in left frontal and parietal regions, right frontal lobe and history of moyamoya disease. She was initially awake and following commands with weakness of RLE and some aphasia. She was transferred to [facility] where he had an cerebral angiogram consistent with moyamoya. There were plans to perform extracranial/ intracranial bypass. However she had a seizure and ended up being intubated for status epilepticus 11/2016 She was found to have a new right frontal infarct area and she was started on Dilantin and Keppra and it was felt that she would not be a candidate for intervention. She has been intubated 9-10 days. Treating team was discussing with family trach/PEG. Family requested transfer back to [place] because they live locally here and wanted her closer to home. Patient remained under critical care medicine until 12/24/2016. arrhythmias - Narrow complex tachycardia history of A. fib. TSH not suppressed. Electrolytes unremarkable .echocardiogram showing combined systolic and basilar dysfunction, severe TR, MR and pulmonary hypertension. Rate controlled on Lopressor 50 mg twice a day status post Cardizem drip. --> Cardiology following - increased Lopressor to 75 mg twice a day response to fluctuating tachycardia - now stable -- underwent adenosine x1 dosing for PSVT which eventually stabilized HR, increased lopressor further. Sepsis - UA positive, culture polymicrobial likely colonization discontinued IV ciprofloxacin. Brown catheter recently changed - Viridans strep in 2 anaerobic bottles. GPC in 2 aerobic bottles. No leukocytosis. Real versus pseudo-bacteremia. Repeated blood culture 4 days ago , so far NGTD On rocephin per ID now. - Patient with increase risk for PNA/ UTI. Patient also with wound vac. Bilateral large frontal CVA Moyamoya Disease Seizure Disorder - Tegretol 200 mg q12h - Follow for seizure activity - Continue Bromocriptine - Tegretol level WNL. Keppra at lower dose 1000 mg twice a day. Hyperammonemia: - continue Lactulose 30 ml PO TID. - continue to monitor ammonia Mixed Systolic and diastolic heart failure, acute - Continue Lasix 20mg daily - On Entresto - Monitor electrolytes and renal function. Hyponatremia: Stable Hypokalemia: Stable - Monitor BMP Anasarca: Improving - Lasix daily Chronic Respiratory Failure Chronic obstructive pulmonary disease Multilobar pneumonia - Pulmonology following - Continue tracheostomy with supplemental oxygen to Maintain O2 sat greater than 92% - Tobramycin course ended on 01/20/17. - Levsin for increased secretions - Wean off O2, possible capping and decannulation Dysphagia Hypoalbuminemia - PEG placed. Continue TF. - Jevity 1.5 through PEG tube with Corby supplementation. - glucerna as pt. HgA1c 6.5 - Dietitian recommends Glucerna 1.5 360 mls at B, L D and HS Continue Corby as ordered. New onset DM - HgA1C 6.5 - Insulin S/S. monitor Accu-Cheks. Monitor for hypoglycemia. - ISS BID Sacral/Coccyx wound - Continue specialty bed. - Wound care following GI Prophylaxis: Pepcid. DVT prophylaxis: SCDs. Coumadin. Gil Melgar MD Mar 27, 2017 14:42
--- NOTE | 2017-03-27 15:18 | EKG ---
Date Performed: 03/27/2017 Time Performed: 10:50:06 PTAGE: 66 years EKG: Probable supraventricular tachycardia. Left anterior fascicular block Extensive infarct - a ge undetermined Low QRS voltages in precordial leads Abnormal ECG PREVIOUS TRACING : 03/21/2017 11.53 Compared to previous tracing, the supraventricular tachycar amparo is new. DOCTOR: [employer] French Interpretating Date/Time 03/27/2017 15:16:06
[2017-03-27] MEDS ORDERED: WARFARIN SOD 7.5 MG TAB PO ONE (16:00)
[2017-03-27] MEDS: RESP: IPRATROPIUM 0.5 MG/2.5 ML NEB NEB SCH ×3 (16:57→22:16)
[2017-03-27] MEDS: cefTRIAXone INJ 2,000 MG in SODIUM CHLORIDE 0.9% INJ 100 ML IV SCH (17:14)
[2017-03-28] VITALS (9 sets, daily range): BP systolic 102–126; BP diastolic 56–72; PULSE 79–88; RESP 18–20; TEMP 98.2–99.1; O2SAT 98–100
[2017-03-28] MEDS: HYOSCYAMINE SOLN 0.125 MG/ML 15 ML BTL G-TUBE SCH ×5 (01:06→22:42)
[2017-03-28] MEDS: METOPROLOL TARTRATE 25 MG TAB G-TUBE SCH ×6 (01:07→22:41)
[2017-03-28] MEDS: CHLORHEXIDINE GLUCONATE 2 % 1 PACK (2 CLOTHS) TOP SCH (04:03)
[2017-03-28] MEDS: FREE WATER G-TUBE SCH ×3 (06:22→22:00)
[2017-03-28] MEDS: RESP: IPRATROPIUM 0.5 MG/2.5 ML NEB NEB SCH ×4 (08:21→20:21)
[2017-03-28] MEDS: LACTULOSE SYRUP 20 GM/30 ML CUP G-TUBE SCH ×3 (09:00→16:20)
[2017-03-28] MEDS: SENNOSIDES SYRUP 8.8 MG/5 ML CUP G-TUBE SCH ×2 (09:00→22:40)
[2017-03-28] MEDS: SODIUM HYPOCHLORITE 0.25% 500 ML BTL TOPICAL SCH (09:00)
[2017-03-28] MEDS: INSULIN ASPART SUPPLEMENTAL SCALE SQ SCH ×2 (09:00→21:00)
[2017-03-28] MEDS: SACUBITRIL/VALSARTAN 24 MG-26 MG TAB PEG SCH ×2 (09:22→22:41)
[2017-03-28] MEDS: FERROUS SULFATE 300 MG /5ML UDC PEG SCH ×2 (09:22→22:40)
[2017-03-28] MEDS: levETIRAcetam 500 MG/5 ML UDC NG SCH ×2 (09:23→22:40)
[2017-03-28] MEDS: FAMOTIDINE 20 MG TAB NG SCH ×2 (09:23→22:41)
[2017-03-28] MEDS: ASCORBIC ACID 500 MG TAB PEG SCH ×2 (09:23→22:41)
[2017-03-28] MEDS: carBAMazepine SUSP 200 MG/10 ML UDC PEG SCH ×2 (09:23→22:40)
[2017-03-28] MEDS: FOLIC ACID 1 MG TAB OG-TUBE SCH (09:23)
[2017-03-28] MEDS: ATORVASTATIN 40 MG TAB G-TUBE SCH (09:23)
[2017-03-28] MEDS: CHLORHEXIDINE 0.12% (ORAL KIT) 15 ML CUP MT SCH ×2 (09:24→20:00)
[2017-03-28] MEDS: FUROSEMIDE 20 MG/2 ML VIAL IV PUSH SCH (09:24)
[2017-03-28] MEDS: POTASSIUM CHLORIDE 20 MEQ PWD PACKET NG SCH (09:24)
[2017-03-28] MEDS: BROMOCRIPTINE MESYLATE 2.5 MG TAB OG-TUBE SCH ×2 (09:25→22:41)
[2017-03-28] MEDS: JUVEN POWDER 1 PACK G-TUBE SCH ×2 (09:25→21:00)
[2017-03-28] MEDS: POVIDONE IODINE 10% OINT 30 GM TUBE TOPICAL SCH (09:26)
[2017-03-28] MEDS: SODIUM CHLORIDE 0.9% FLUSH 10 ML FLUSH IV FLUSH SCH ×2 (09:26→22:42)
[2017-03-28 09:34] LABS: INTERNATIONAL NORMALIZED RATIO 1.9 RATIO; PROTHROMBIN TIME - PATIENT 21.7 SEC (9.8-11.6)
[2017-03-28 10:06] LABS: BICARBONATE 30.1 MEQ/L (21.0-32.0); POTASSIUM 3.9 MEQ/L (3.5-5.1)
--- NOTE | 2017-03-28 14:51 | PD.CARD.PN ---
Subjective Subjective Remarks No acute cardiac events. SVT yesterday, responded to adenosine. metoprolol started. tele NSR today. BP stable. (Juana Nettles) Objective Medications Current Medications Medications (Trade) Dose Ordered Sig/Ora Route Start Time Stop Time Status Last Admin (Peridex 0.12% Liq) 15 ml BID@08,20 MT 11/18/16 08:00 03/28/17 09:24 (NS Flush) 2 ml BID IV FLUSH 11/18/16 09:00 03/28/17 09:26 (Morphine Inj) 2 mg Q2H PRN IV 11/18/16 03:30 03/27/17 10:13 (Zofran Inj) 4 mg Q6H PRN IV 11/18/16 03:30 11/26/16 03:20 Miscellaneous Information 1 Q361D XX 11/18/16 03:30 11/18/16 03:30 (Chlorhexidine 2% Cloth) Taper DAILY@04 TOP 11/18/16 04:00 11/14/17 03:59 03/28/17 04:03 (Chlorhexidine 2% Cloth) 3 pack UNSCH PRN TOP 11/18/16 03:30 (Parlodel) 2.5 mg Q12HR OG-TUBE 11/18/16 09:00 03/28/17 09:25 (Folate) 1 mg DAILY OG-TUBE 11/18/16 09:00 03/28/17 09:23 (Dulcolax Supp) 10 mg DAILY PRN RECTAL 12/14/16 15:45 (Pepcid) 20 mg BID NG 12/21/16 21:00 03/28/17 09:23 (TEGretol LIQ) 200 mg Q12HR PEG 01/06/17 09:00 03/28/17 09:23 ([place] Powder) 1 pack BID G-TUBE 01/13/17 09:00 03/28/17 09:25 (Ferrous Sulfate Liq) 300 mg BID PEG 01/26/17 21:00 03/28/17 09:22 (Vitamin C) 500 mg BID PEG 01/26/17 21:00 03/28/17 09:23 ([place] 5-325 Mg) 1 tab Q4H PRN G-TUBE 02/01/17 11:30 03/25/17 16:36 (Tylenol) 650 mg Q6H PRN G-TUBE 02/01/17 09:30 03/26/17 02:43 (Lipitor) 40 mg DAILY G-TUBE 02/01/17 09:00 03/28/17 09:23 (Senna Liq) 8.8 mg BID G-TUBE 02/01/17 09:00 03/27/17 09:59 (D50w (Vial) Inj) 25 ml UNSCH PRN IV PUSH 02/01/17 09:15 (Glucagon Inj) 1 mg UNSCH PRN OTHER 02/01/17 09:15 Pharmacy Profile Note 0 ml @ 0 mls/hr UNSCH OTHER 02/01/17 09:15 (Dakin'S 0.25% Soln) USE DAILY WITH DRESS... DAILY TOPICAL 02/12/17 18:00 03/25/17 10:23 (Betadine 10% Oint) 1 applic DAILY TOPICAL 02/15/17 09:00 03/28/17 09:26 (Lactulose Liq) 30 ml TID G-TUBE 02/21/17 13:00 03/26/17 16:34 (Zaroxolyn) 5 mg DAILY PEG 03/09/17 09:00 Future Hold 03/13/17 10:04 (Entresto 24-26 Mg) 1 tab BID PEG 03/08/17 21:00 03/28/17 09:22 (Free Water) VOLUME OF WATER: ( 300 ) ML Q8HR G-TUBE 03/09/17 14:00 03/28/17 13:53 (Levsin Liq) 0.125 mg Q6H G-TUBE 03/10/17 18:00 03/28/17 06:21 (Lasix Inj) 20 mg DAILY IV PUSH 03/16/17 11:30 03/28/17 09:24 (KCl Powder) 20 meq DAILY NG 03/17/17 09:00 03/28/17 09:24 (NovoLOG SUPPLEMENTAL SCALE) 1 BID SQ 03/20/17 21:00 03/22/17 22:04 (Albuterol Neb) 0.63 mg Q4HR NEB PRN NEB 03/21/17 09:15 (Atrovent Neb) 0.5 mg QID NEB NEB 03/21/17 12:00 03/28/17 11:11 (Keppra Liq) 1,000 mg Q12HR NG 03/21/17 21:00 03/28/17 09:23 Ceftriaxone Sodium 2000 mg/ Sodium Chloride 100 ml @ 200 mls/hr Q24H IV 03/24/17 18:00 03/27/17 17:14 (Lopressor) 50 mg Q6HR G-TUBE 03/27/17 18:00 03/28/17 12:13 (Coumadin) 7.5 mg DAILY@1600 PO 03/28/17 16:00 Vital Signs / I&O Vital Signs Date Time Temp Pulse Resp B/P (MAP) Pulse Ox O2 Delivery O2 Flow Rate FiO2 03/28/17 09:21 100 T-Piece 5.00 28 03/28/17 08:24 98 T-piece 5.00 28 03/28/17 08:00 98.8 88 20 116/56 (76) 100 03/28/17 04:00 98.7 81 18 118/56 (76) 100 03/28/17 00:00 98.2 79 18 102/60 (74) 100 03/28/17 00:00 T-Piece 5.00 28 03/27/17 22:18 100 T-piece 6.00 28 03/27/17 20:00 76 03/27/17 20:00 98.2 78 19 105/64 (78) 96 03/27/17 20:00 T-Piece 5.00 28 03/27/17 16:00 98.7 81 18 113/75 (88) 100 03/27/17 16:00 100 T-Piece 5.00 28 I/O 03/27/17 03/27/17 03/27/17 03/28/17 03/28/17 03/28/17 06:59 14:59 22:59 06:59 14:59 22:59 Intake Total 0 ml 200 ml Output Total 500 ml 800 ml 650 ml Balance -500 ml -800 ml 200 ml -650 ml Intake Oral 0 ml IV Total 200 ml Output Urine Total 500 ml 800 ml 650 ml # Bowel Movements 0 1 Physical Exam GENERAL: critically ill patient SKIN: Warm and dry. HEAD: Atraumatic. Normocephalic. EYES: Pupils equal and round. No scleral icterus. No injection or drainage. ENT: No nasal bleeding or discharge. NECK: Tracheostomy CARDIOVASCULAR: Regular rate and rhythm. RESPIRATORY: No accessory muscle use. Clear to auscultation. GASTROINTESTINAL: Abdomen soft, non-tender, nondistended MUSCULOSKELETAL: No obvious deformities. NEUROLOGICAL: unresponsive Laboratory Laboratory Tests Test 03/28/17 08:22 Prothrombin Time 21.7 SEC Prothromb Time International Ratio 1.9 RATIO Blood Urea Nitrogen 25 MG/DL Creatinine 0.33 MG/DL Random Glucose 87 MG/DL Calcium Level 8.7 MG/DL Sodium Level 134 MEQ/L Potassium Level 3.9 MEQ/L Chloride Level 97 MEQ/L Carbon Dioxide Level 30.1 MEQ/L Anion Gap 7 MEQ/L Estimat Glomerular Filtration Rate 201 ML/MIN (Juana Nettles) Assessment and Plan Problem List: (1) Narrow complex tachycardia ICD Codes: I47.1 - Supraventricular tachycardia Status: Acute (2) CVA (cerebral vascular accident) ICD Codes: I63.9 - Cerebral infarction, unspecified Status: Acute (3) Seizure ICD Codes: R56.9 - Unspecified convulsions Status: Acute (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 BP and HR stable. NSR today. Dr Panchal will return tomorrow Patient seen and evaluated by Dr Bean who completed face to face encounter and participated in evaluation and management (Juana Nettles) Assessment and Plan The exam, history, and the medical decision-making described in the above note were completed with the assistance of the mid-level provider. I reviewed and agree with the findings presented. I attest that I had a [id number] encounter with the patient on the same day, and personally performed and documented my assessment and findings in the medical record. Stable no chest pain or sob no more psvt (Cezar Bean MD) Juana Nettles Mar 28, 2017 14:51 Cezar Bean MD Mar 28, 2017 19:00
[2017-03-28] MEDS: cefTRIAXone INJ 2,000 MG in SODIUM CHLORIDE 0.9% INJ 100 ML IV SCH (16:50)
[2017-03-28] MEDS: WARFARIN SOD 7.5 MG TAB PO SCH (16:50)
--- NOTE | 2017-03-28 18:04 | HHI.PR ---
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 Mod amount of trach secretions Gets wound packed with Betadine. Objective Vital Signs Vital Signs Date Time Temp Pulse Resp B/P (MAP) Pulse Ox O2 Delivery O2 Flow Rate FiO2 03/28/17 16:00 T-Piece 5.00 28 03/28/17 12:00 T-Piece 5.00 28 03/28/17 09:21 100 T-Piece 5.00 28 03/28/17 08:24 98 T-piece 5.00 28 03/28/17 08:00 98.8 88 20 116/56 (76) 100 03/28/17 04:00 98.7 81 18 118/56 (76) 100 03/28/17 00:00 98.2 79 18 102/60 (74) 100 03/28/17 00:00 T-Piece 5.00 28 03/27/17 22:18 100 T-piece 6.00 28 03/27/17 20:00 76 03/27/17 20:00 98.2 78 19 105/64 (78) 96 03/27/17 20:00 T-Piece 5.00 28 I/O 03/27/17 03/27/17 03/27/17 03/28/17 03/28/17 03/28/17 06:59 14:59 22:59 06:59 14:59 22:59 Intake Total 0 ml 200 ml 1580 ml Output Total 500 ml 800 ml 650 ml Balance -500 ml -800 ml 200 ml -650 ml 1580 ml Intake Oral 0 ml IV Total 200 ml 200 ml Tube Feeding 1080 ml Other 300 ml Output Urine Total 500 ml 800 ml 650 ml # Bowel Movements 0 1 Result Diagram: 03/27/17 0418 03/28/17 0822 Objective Remarks GENERAL: MBMN WF, on Trach collar SKIN: Warm and dry. HEAD: Normocephalic. EYES: No scleral icterus. No injection or drainage. NECK: Supple, trachea midline. No JVD or lymphadenopathy. has trach CARDIOVASCULAR: Regular rate and rhythm without murmurs, gallops, or rubs. RESPIRATORY: Breath sounds equal bilaterally. No accessory muscle use. GASTROINTESTINAL: Abdomen soft, non-tender, nondistended. has PEG MUSCULOSKELETAL: No cyanosis, or edema. BACK: Nontender without obvious deformity. No CVA tenderness. A/P Assessment and Plan RF, S/P Trach CVA Arango arango disease CAD COPD SZ disorder PLAN: Aerosol nebs Cont trach collar supplement 02, keep sat >90% Trach suction prn. DW RN at BS. TF Cont Levsin.prn Vernon Marx MD Mar 28, 2017 18:03
--- NOTE | 2017-03-28 19:16 | HHI.PR ---
Subjective Remarks No acute events reported overnight, patient tolerating her boluses well. Heart rate has been relatively stable since yesterday. Daughter at bedside today. Objective Vital Signs Date Time Temp Pulse Resp B/P (MAP) Pulse Ox O2 Delivery O2 Flow Rate FiO2 03/28/17 16:00 T-Piece 5.00 28 03/28/17 12:00 T-Piece 5.00 28 03/28/17 10:00 82 03/28/17 09:21 100 T-Piece 5.00 28 03/28/17 08:24 98 T-piece 5.00 28 03/28/17 08:00 98.8 88 20 116/56 (76) 100 03/28/17 04:00 98.7 81 18 118/56 (76) 100 03/28/17 00:00 98.2 79 18 102/60 (74) 100 03/28/17 00:00 T-Piece 5.00 28 03/27/17 22:18 100 T-piece 6.00 28 03/27/17 20:00 76 03/27/17 20:00 98.2 78 19 105/64 (78) 96 03/27/17 20:00 T-Piece 5.00 28 I/O 03/27/17 03/27/17 03/27/17 03/28/17 03/28/17 03/28/17 07:00 15:00 23:00 07:00 15:00 23:00 Intake Total 0 ml 200 ml 1580 ml Output Total 500 ml 800 ml 650 ml Balance -500 ml -800 ml 200 ml -650 ml 1580 ml Intake Oral 0 ml IV Total 200 ml 200 ml Tube Feeding 1080 ml Other 300 ml Output Urine Total 500 ml 800 ml 650 ml # Bowel Movements 0 1 Result Diagram: 03/27/17 0418 03/28/17 0822 Procedures 11/24/2016 Percutaneous tracheostomy. Objective Remarks GENERAL: on trach, NAD, awake, making eye contact today Respiratory: Currently on trach with mild secretions, unlabored breathing, GASTROINTESTINAL: Abdomen soft, non-tender, minimal distention Cardiovascular: Mild lower extremity edema, regular rate and rhythm, no murmurs A/P Assessment and Plan 65-year-old female with past medical history of CVA for which she at one point was on warfarin but had been discontinued. She was was admitted to [facility] emergency department 11/04/16 with difficulty getting her thoughts together. She was found to have multifocal ischemic infarcts in left frontal and parietal regions, right frontal lobe and history of moyamoya disease. She was initially awake and following commands with weakness of RLE and some aphasia. She was transferred to [facility] where he had an cerebral angiogram consistent with moyamoya. There were plans to perform extracranial/ intracranial bypass. However she had a seizure and ended up being intubated for status epilepticus 11/2016 She was found to have a new right frontal infarct area and she was started on Dilantin and Keppra and it was felt that she would not be a candidate for intervention. She has been intubated 9-10 days. Treating team was discussing with family trach/PEG. Family requested transfer back to [place] because they live locally here and wanted her closer to home. Patient remained under critical care medicine until 12/24/2016. arrhythmias - Narrow complex tachycardia history of A. fib. TSH not suppressed. Electrolytes unremarkable .echocardiogram showing combined systolic and basilar dysfunction, severe TR, MR and pulmonary hypertension. Rate controlled on Lopressor 50 mg twice a day status post Cardizem drip. --> Cardiology following - increased Lopressor to 75 mg twice a day response to fluctuating tachycardia - now stable -- underwent adenosine x1 dosing for PSVT which eventually stabilized HR, increased lopressor further. - STABLE so far. Sepsis - UA positive, culture polymicrobial likely colonization discontinued IV ciprofloxacin. Brown catheter recently changed - Viridans strep in 2 anaerobic bottles. GPC in 2 aerobic bottles. No leukocytosis. Real versus pseudo-bacteremia. Repeated blood culture 5 days ago , so far NGTD On rocephin per ID now. - Patient with increase risk for PNA/ UTI. Bilateral large frontal CVA Moyamoya Disease Seizure Disorder - Tegretol 200 mg q12h - Follow for seizure activity - Continue Bromocriptine - Tegretol level WNL. Keppra at lower dose 1000 mg twice a day. Hyperammonemia: - continue Lactulose 30 ml PO TID. - continue to monitor ammonia Mixed Systolic and diastolic heart failure, acute - Continue Lasix 20mg daily - On Entresto - Monitor electrolytes and renal function. Hyponatremia: Stable Hypokalemia: Stable - Monitor BMP Anasarca: Improving - Lasix daily Chronic Respiratory Failure Chronic obstructive pulmonary disease Multilobar pneumonia - Pulmonology following - Continue tracheostomy with supplemental oxygen to Maintain O2 sat greater than 92% - Tobramycin course ended on 01/20/17. - Levsin for increased secretions - Wean off O2, possible capping and decannulation Dysphagia Hypoalbuminemia - PEG placed. Continue TF. - Jevity 1.5 through PEG tube with [place] supplementation. - glucerna as pt. HgA1c 6.5 - Dietitian recommends Glucerna 1.5 360 mls at B, L D and HS Continue Corby as ordered. New onset DM - HgA1C 6.5 - Insulin S/S. monitor Accu-Cheks. Monitor for hypoglycemia. - ISS BID Sacral/Coccyx wound - Continue specialty bed. - Wound care following GI Prophylaxis: Pepcid. DVT prophylaxis: SCDs. Coumadin. Placement pending facilites that would take pt with trach and peg. Currently afebrile, likely resolving from infectious/state. Gil Melgar MD Mar 28, 2017 19:16
[2017-03-29] VITALS (10 sets, daily range): BP systolic 99–128; BP diastolic 58–75; PULSE 72–94; RESP 20; TEMP 97.5–99; O2SAT 81–100
[2017-03-29] MEDS: CHLORHEXIDINE GLUCONATE 2 % 1 PACK (2 CLOTHS) TOP SCH (04:00)
[2017-03-29] MEDS: FREE WATER G-TUBE SCH ×3 (06:00→22:00)
[2017-03-29] MEDS: HYOSCYAMINE SOLN 0.125 MG/ML 15 ML BTL G-TUBE SCH ×4 (06:00→23:01)
[2017-03-29] MEDS: METOPROLOL TARTRATE 25 MG TAB G-TUBE SCH ×4 (06:08→23:01)
[2017-03-29 07:23] LABS: PROTHROMBIN TIME - PATIENT 22.8 SEC (9.8-11.6)
[2017-03-29] MEDS: CHLORHEXIDINE 0.12% (ORAL KIT) 15 ML CUP MT SCH ×2 (08:00→20:00)
[2017-03-29] MEDS: POTASSIUM CHLORIDE 20 MEQ PWD PACKET NG SCH (09:00)
[2017-03-29] MEDS: INSULIN ASPART SUPPLEMENTAL SCALE SQ SCH ×2 (09:00→21:00)
[2017-03-29] MEDS: SODIUM CHLORIDE 0.9% FLUSH 10 ML FLUSH IV FLUSH SCH ×2 (09:00→22:39)
[2017-03-29] MEDS: JUVEN POWDER 1 PACK G-TUBE SCH ×2 (09:00→22:39)
[2017-03-29] MEDS: SODIUM HYPOCHLORITE 0.25% 500 ML BTL TOPICAL SCH (09:00)
[2017-03-29] MEDS: POVIDONE IODINE 10% OINT 30 GM TUBE TOPICAL SCH (09:00)
[2017-03-29] MEDS: RESP: IPRATROPIUM 0.5 MG/2.5 ML NEB NEB SCH ×4 (09:28→19:35)
[2017-03-29] MEDS: LACTULOSE SYRUP 20 GM/30 ML CUP G-TUBE SCH ×3 (10:06→17:44)
[2017-03-29] MEDS: FERROUS SULFATE 300 MG /5ML UDC PEG SCH ×2 (10:06→22:38)
[2017-03-29] MEDS: levETIRAcetam 500 MG/5 ML UDC NG SCH ×2 (10:06→22:38)
[2017-03-29] MEDS: SENNOSIDES SYRUP 8.8 MG/5 ML CUP G-TUBE SCH ×2 (10:06→22:38)
[2017-03-29] MEDS: carBAMazepine SUSP 200 MG/10 ML UDC PEG SCH ×2 (10:06→22:39)
[2017-03-29] MEDS: ATORVASTATIN 40 MG TAB G-TUBE SCH (10:07)
[2017-03-29] MEDS: ASCORBIC ACID 500 MG TAB PEG SCH ×2 (10:07→22:41)
[2017-03-29] MEDS: FUROSEMIDE 20 MG/2 ML VIAL IV PUSH SCH (10:07)
[2017-03-29] MEDS: SACUBITRIL/VALSARTAN 24 MG-26 MG TAB PEG SCH ×2 (10:08→21:00)
[2017-03-29] MEDS: BROMOCRIPTINE MESYLATE 2.5 MG TAB OG-TUBE SCH ×2 (10:08→22:40)
[2017-03-29] MEDS: FOLIC ACID 1 MG TAB OG-TUBE SCH (10:08)
[2017-03-29] MEDS: FAMOTIDINE 20 MG TAB NG SCH ×2 (10:08→22:40)
--- NOTE | 2017-03-29 16:14 | PD.CARD.PN ---
Subjective Subjective Remarks Poorly responsive, no change in overall condition Objective Medications Current Medications Medications (Trade) Dose Ordered Sig/Ora Route Start Time Stop Time Status Last Admin (Peridex 0.12% Liq) 15 ml BID@08,20 MT 11/18/16 08:00 03/29/17 08:00 (NS Flush) 2 ml BID IV FLUSH 11/18/16 09:00 03/29/17 09:00 (Morphine Inj) 2 mg Q2H PRN IV 11/18/16 03:30 03/27/17 10:13 (Zofran Inj) 4 mg Q6H PRN IV 11/18/16 03:30 11/26/16 03:20 Miscellaneous Information 1 Q361D XX 11/18/16 03:30 11/18/16 03:30 (Chlorhexidine 2% Cloth) Taper DAILY@04 TOP 11/18/16 04:00 11/14/17 03:59 03/28/17 04:03 (Chlorhexidine 2% Cloth) 3 pack UNSCH PRN TOP 11/18/16 03:30 (Parlodel) 2.5 mg Q12HR OG-TUBE 11/18/16 09:00 03/29/17 10:08 (Folate) 1 mg DAILY OG-TUBE 11/18/16 09:00 03/29/17 10:08 (Dulcolax Supp) 10 mg DAILY PRN RECTAL 12/14/16 15:45 (Pepcid) 20 mg BID NG 12/21/16 21:00 03/29/17 10:08 (TEGretol LIQ) 200 mg Q12HR PEG 01/06/17 09:00 03/29/17 10:06 ([place] Powder) 1 pack BID G-TUBE 01/13/17 09:00 03/29/17 09:00 (Ferrous Sulfate Liq) 300 mg BID PEG 01/26/17 21:00 03/29/17 10:06 (Vitamin C) 500 mg BID PEG 01/26/17 21:00 03/29/17 10:07 ([place] 5-325 Mg) 1 tab Q4H PRN G-TUBE 02/01/17 11:30 03/25/17 16:36 (Tylenol) 650 mg Q6H PRN G-TUBE 02/01/17 09:30 03/26/17 02:43 (Lipitor) 40 mg DAILY G-TUBE 02/01/17 09:00 03/29/17 10:07 (Senna Liq) 8.8 mg BID G-TUBE 02/01/17 09:00 03/29/17 10:06 (D50w (Vial) Inj) 25 ml UNSCH PRN IV PUSH 02/01/17 09:15 (Glucagon Inj) 1 mg UNSCH PRN OTHER 02/01/17 09:15 Pharmacy Profile Note 0 ml @ 0 mls/hr UNSCH OTHER 02/01/17 09:15 (Dakin'S 0.25% Soln) USE DAILY WITH DRESS... DAILY TOPICAL 02/12/17 18:00 03/29/17 09:00 (Betadine 10% Oint) 1 applic DAILY TOPICAL 02/15/17 09:00 03/29/17 09:00 (Lactulose Liq) 30 ml TID G-TUBE 02/21/17 13:00 03/29/17 15:35 (Zaroxolyn) 5 mg DAILY PEG 03/09/17 09:00 Future Hold 03/13/17 10:04 (Entresto 24-26 Mg) 1 tab BID PEG 03/08/17 21:00 03/29/17 10:08 (Free Water) VOLUME OF WATER: ( 300 ) ML Q8HR G-TUBE 03/09/17 14:00 03/29/17 14:00 (Levsin Liq) 0.125 mg Q6H G-TUBE 03/10/17 18:00 03/29/17 12:00 (Lasix Inj) 20 mg DAILY IV PUSH 03/16/17 11:30 03/29/17 10:07 (KCl Powder) 20 meq DAILY NG 03/17/17 09:00 03/29/17 09:00 (NovoLOG SUPPLEMENTAL SCALE) 1 BID SQ 03/20/17 21:00 03/22/17 22:04 (Albuterol Neb) 0.63 mg Q4HR NEB PRN NEB 03/21/17 09:15 (Atrovent Neb) 0.5 mg QID NEB NEB 03/21/17 12:00 03/29/17 16:04 (Keppra Liq) 1,000 mg Q12HR NG 03/21/17 21:00 03/29/17 10:06 Ceftriaxone Sodium 2000 mg/ Sodium Chloride 100 ml @ 200 mls/hr Q24H IV 03/24/17 18:00 03/28/17 16:50 (Lopressor) 50 mg Q6HR G-TUBE 03/27/17 18:00 03/29/17 15:34 (Coumadin) 7.5 mg DAILY@1600 PO 03/28/17 16:00 03/28/17 16:50 Vital Signs / I&O Vital Signs Date Time Temp Pulse Resp B/P (MAP) Pulse Ox O2 Delivery O2 Flow Rate FiO2 03/29/17 16:06 100 T-piece 28 03/29/17 09:31 100 T-piece 5.00 28 03/29/17 08:00 97.5 78 20 117/68 (84) 100 03/29/17 04:00 T-Piece 28 03/29/17 04:00 98.7 82 20 120/69 (86) 03/29/17 00:00 98.3 73 20 99/58 (72) 98 03/29/17 00:00 T-Piece 28 03/28/17 20:21 100 T-piece 28 03/28/17 20:00 T-Piece 28 03/28/17 20:00 99.1 82 20 126/72 (90) I/O 03/28/17 03/28/17 03/28/17 03/29/17 03/29/17 03/29/17 06:59 14:59 22:59 06:59 14:59 22:59 Intake Total 1580 ml 1010 ml Output Total 650 ml 1475 ml 450 ml Balance -650 ml 105 ml 560 ml Intake Oral 0 ml IV Total 200 ml Tube Feeding 1080 ml 360 ml Tube Irrigant 50 ml Other 300 ml 600 ml Output Urine Total 650 ml 1475 ml 450 ml # Bowel Movements 1 0 1 Physical Exam GENERAL: In NAD, poorly responsive SKIN: Warm and dry. HEAD: Normocephalic. EYES: No scleral icterus. No injection or drainage. NECK: Supple, trachea midline. No JVD or lymphadenopathy. Trach in place CARDIOVASCULAR: Regular rate and rhythm without murmurs, gallops, or rubs. RESPIRATORY: Breath sounds equal bilaterally. No accessory muscle use. GASTROINTESTINAL: Abdomen soft, non-tender, nondistended. MUSCULOSKELETAL: No cyanosis, or edema. Laboratory Laboratory Tests Test 03/29/17 06:46 Prothrombin Time 22.8 SEC Prothromb Time International Ratio 2.0 RATIO Imaging Last Impressions Chest X-Ray 03/20/17 0000 Signed Impressions: Service Date/Time: Monday, March 20, 2017 11:37 - CONCLUSION: Stable appearance with no acute cardiopulmonary disease. Lenny Kerns MD Abdomen X-Ray 02/11/17 0000 Signed Impressions: Service Date/Time: Saturday, February 11, 2017 17:52 - CONCLUSION: Minimal colonic distention. Kenneth Frost MD FACR Catheter Change 02/10/17 0000 Signed Impressions: Service Date/Time: February 13:47 - CONCLUSION: Uncomplicated fluoroscopic guided gastrostomy tube replacement. Positioning confirmed. The tube can be used immediately. Nghia Pacheco MD Lower Extremity Ultrasound 02/01/17 0000 Signed Impressions: Service Date/Time: Wednesday, February 01, 2017 13:23 - CONCLUSION: Normal examination. 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 No new cardiac issues. Remains stable from cardiac standpoint. Continue current program including metoprolol. Anticipate transfer to long-term care facility. Klaus Panchal MD Mar 29, 2017 16:13
[2017-03-29] MEDS: cefTRIAXone INJ 2,000 MG in SODIUM CHLORIDE 0.9% INJ 100 ML IV SCH (17:44)
[2017-03-29] MEDS: WARFARIN SOD 7.5 MG TAB PO SCH (17:44)
--- NOTE | 2017-03-29 19:25 | HHI.PR ---
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 Mod amount of trach secretions Gets wound packed with Betadine. No new complaint Objective Vital Signs Vital Signs Date Time Temp Pulse Resp B/P (MAP) Pulse Ox O2 Delivery O2 Flow Rate FiO2 03/29/17 16:06 100 T-piece 28 03/29/17 16:00 98.9 94 20 127/75 (92) 100 03/29/17 12:00 98.4 84 20 128/65 (86) 100 03/29/17 09:31 100 T-piece 5.00 28 03/29/17 08:00 T-Piece 28 03/29/17 08:00 97.5 78 20 117/68 (84) 100 03/29/17 07:55 72 03/29/17 04:00 T-Piece 28 03/29/17 04:00 98.7 82 20 120/69 (86) 03/29/17 00:00 98.3 73 20 99/58 (72) 98 03/29/17 00:00 T-Piece 28 03/28/17 20:21 100 T-piece 28 03/28/17 20:00 T-Piece 28 03/28/17 20:00 99.1 82 20 126/72 (90) I/O 03/28/17 03/28/17 03/28/17 03/29/17 03/29/17 03/29/17 06:59 14:59 22:59 06:59 14:59 22:59 Intake Total 1580 ml 1010 ml 1380 ml Output Total 650 ml 1475 ml 450 ml 900 ml Balance -650 ml 105 ml 560 ml 480 ml Intake Oral 0 ml 0 ml IV Total 200 ml Tube Feeding 1080 ml 360 ml 1080 ml Tube Irrigant 50 ml Other 300 ml 600 ml 300 ml Output Urine Total 650 ml 1475 ml 450 ml 900 ml # Bowel Movements 1 0 1 2 Result Diagram: 03/27/178 03/28/17821 Objective Remarks GENERAL: MBMN WF, on Trach collar SKIN: Warm and dry. HEAD: Normocephalic. EYES: No scleral icterus. No injection or drainage. NECK: Supple, trachea midline. No JVD or lymphadenopathy. has trach CARDIOVASCULAR: Regular rate and rhythm without murmurs, gallops, or rubs. RESPIRATORY: Breath sounds equal bilaterally. No accessory muscle use. GASTROINTESTINAL: Abdomen soft, non-tender, nondistended. has PEG MUSCULOSKELETAL: No cyanosis, or edema. BACK: Nontender without obvious deformity. No CVA tenderness. A/P Assessment and Plan RF, S/P Trach CVA Arango arango disease CAD COPD SZ disorder PLAN: Aerosol nebs Cont trach collar supplement 02, keep sat >90% Trach suction prn. DW RN at BS. TF Cont Levsin.prn DW Dr.Masood Marx,Vernon Stearns MD Mar 29, 2017 19:25
--- NOTE | 2017-03-29 20:17 | HHI.PR ---
Subjective Remarks Nursing reports no acute events during the day, patient having normal to formed bowel movements. Spoke with infectious disease, patient to have 8 more days of IV antibiotics it could be receiving this as well at a rehabilitation facility, spoke with pulmonology, patient is also stable for discharge from respiratory standpoint as long as a rehabilitation facility is willing to take her with her tracheostomy. Objective Vital Signs Date Time Temp Pulse Resp B/P (MAP) Pulse Ox O2 Delivery O2 Flow Rate FiO2 03/29/17 16:06 100 T-piece 28 03/29/17 16:00 98.9 94 20 127/75 (92) 100 03/29/17 12:00 98.4 84 20 128/65 (86) 100 03/29/17 09:31 100 T-piece 5.00 28 03/29/17 08:00 T-Piece 28 03/29/17 08:00 97.5 78 20 117/68 (84) 100 03/29/17 07:55 72 03/29/17 04:00 T-Piece 28 03/29/17 04:00 98.7 82 20 120/69 (86) 03/29/17 00:00 98.3 73 20 99/58 (72) 98 03/29/17 00:00 T-Piece 28 03/28/17 20:21 100 T-piece 28 I/O 03/28/17 03/28/17 03/28/17 03/29/17 03/29/17 03/29/17 07:00 15:00 23:00 07:00 15:00 23:00 Intake Total 1580 ml 1010 ml 1380 ml Output Total 650 ml 1475 ml 450 ml 900 ml Balance -650 ml 105 ml 560 ml 480 ml Intake Oral 0 ml 0 ml IV Total 200 ml Tube Feeding 1080 ml 360 ml 1080 ml Tube Irrigant 50 ml Other 300 ml 600 ml 300 ml Output Urine Total 650 ml 1475 ml 450 ml 900 ml # Bowel Movements 1 0 1 2 Result Diagram: 03/27/17 0418 03/28/17 08 Procedures 11/24/2016 Percutaneous tracheostomy. Objective Remarks GENERAL: on trach, NAD, not arousable today Respiratory: Currently on trach, no secretions noted on trach , unlabored breathing, GASTROINTESTINAL: Abdomen soft, non-tender, minimal distention Cardiovascular: Mild lower extremity edema, regular rate and rhythm, no murmurs A/P Assessment and Plan 65-year-old female with past medical history of CVA for which she at one point was on warfarin but had been discontinued. She was was admitted to [facility] emergency department 11/04/16 with difficulty getting her thoughts together. She was found to have multifocal ischemic infarcts in left frontal and parietal regions, right frontal lobe and history of moyamoya disease. She was initially awake and following commands with weakness of RLE and some aphasia. She was transferred to [facility] where he had an cerebral angiogram consistent with moyamoya. There were plans to perform extracranial/ intracranial bypass. However she had a seizure and ended up being intubated for status epilepticus 11/2016 She was found to have a new right frontal infarct area and she was started on Dilantin and Keppra and it was felt that she would not be a candidate for intervention. She has been intubated 9-10 days. Treating team was discussing with family trach/PEG. Family requested transfer back to [place] because they live locally here and wanted her closer to home. Patient remained under critical care medicine until 12/24/2016. arrhythmias - Narrow complex tachycardia history of A. fib. TSH not suppressed. Electrolytes unremarkable .echocardiogram showing combined systolic and basilar dysfunction, severe TR, MR and pulmonary hypertension. Rate controlled on Lopressor 50 mg twice a day status post Cardizem drip. --> Cardiology following - increased Lopressor to 75 mg twice a day response to fluctuating tachycardia - now stable -- underwent adenosine x1 dosing for PSVT which eventually stabilized HR, increased lopressor further. - STABLE so far. Sepsis - UA positive, culture polymicrobial likely colonization discontinued IV ciprofloxacin. Brown catheter recently changed - Viridans strep in 2 anaerobic bottles. GPC in 2 aerobic bottles. No leukocytosis. Real versus pseudo-bacteremia. Repeated blood culture 6 days ago , so far NGTD On rocephin per ID now. 8 more days of IV Rocephin per ID, can be discharged if secured placement. - Patient with increase risk for PNA/ UTI. Bilateral large frontal CVA Moyamoya Disease Seizure Disorder - Tegretol 200 mg q12h - Follow for seizure activity - Continue Bromocriptine - Tegretol level WNL. Keppra at lower dose 1000 mg twice a day. Hyperammonemia: - continue Lactulose 30 ml PO TID. - continue to monitor ammonia Mixed Systolic and diastolic heart failure, acute - Continue Lasix 20mg daily - On Entresto - Monitor electrolytes and renal function. Hyponatremia: Stable Hypokalemia: Stable - Monitor BMP Anasarca: Improving - Lasix daily Chronic Respiratory Failure Chronic obstructive pulmonary disease Multilobar pneumonia - Pulmonology following - Continue tracheostomy with supplemental oxygen to Maintain O2 sat greater than 92% - Tobramycin course ended on 01/20/17. - Levsin for increased secretions - Wean off O2, possible capping and decannulation Dysphagia Hypoalbuminemia - PEG placed. Continue TF. - Jevity 1.5 through PEG tube with Corby supplementation. - glucerna as pt. HgA1c 6.5 - Dietitian recommends Glucerna 1.5 360 mls at B, L D and HS Continue Corby as ordered. New onset DM - HgA1C 6.5 - Insulin S/S. monitor Accu-Cheks. Monitor for hypoglycemia. - ISS BID Sacral/Coccyx wound - Continue specialty bed. - Wound care following GI Prophylaxis: Pepcid. DVT prophylaxis: SCDs. Coumadin. Difficulty finding placement facilities that would take pt with trach and peg. Currently afebrile, likely resolving from infectious/state. Gil Melgar MD Mar 29, 2017 20:16
[2017-03-30] VITALS (9 sets, daily range): BP systolic 108–127; BP diastolic 57–76; PULSE 71–104; RESP 16–20; TEMP 98.2–98.7; O2SAT 94–100
[2017-03-30] MEDS: CHLORHEXIDINE GLUCONATE 2 % 1 PACK (2 CLOTHS) TOP SCH (04:00)
[2017-03-30] MEDS: HYOSCYAMINE SOLN 0.125 MG/ML 15 ML BTL G-TUBE SCH ×3 (05:52→18:00)
[2017-03-30] MEDS: METOPROLOL TARTRATE 25 MG TAB G-TUBE SCH ×3 (05:52→18:32)
[2017-03-30] MEDS: FREE WATER G-TUBE SCH ×3 (05:52→21:08)
[2017-03-30] MEDS: RESP: IPRATROPIUM 0.5 MG/2.5 ML NEB NEB SCH ×4 (07:50→19:57)
[2017-03-30] MEDS: CHLORHEXIDINE 0.12% (ORAL KIT) 15 ML CUP MT SCH ×2 (08:00→20:00)
[2017-03-30 08:41] LABS: PROTHROMBIN TIME - PATIENT 22.3 SEC (9.8-11.6)
[2017-03-30] MEDS: INSULIN ASPART SUPPLEMENTAL SCALE SQ SCH ×2 (09:00→21:00)
[2017-03-30] MEDS: SODIUM HYPOCHLORITE 0.25% 500 ML BTL TOPICAL SCH (09:00)
[2017-03-30] MEDS: POTASSIUM CHLORIDE 20 MEQ PWD PACKET NG SCH (09:00)
[2017-03-30] MEDS: JUVEN POWDER 1 PACK G-TUBE SCH ×2 (09:00→21:00)
[2017-03-30] MEDS: POVIDONE IODINE 10% OINT 30 GM TUBE TOPICAL SCH (09:00)
[2017-03-30] MEDS: SODIUM CHLORIDE 0.9% FLUSH 10 ML FLUSH IV FLUSH SCH ×2 (09:00→21:07)
[2017-03-30] MEDS: SENNOSIDES SYRUP 8.8 MG/5 ML CUP G-TUBE SCH ×2 (11:05→21:06)
[2017-03-30] MEDS: FERROUS SULFATE 300 MG /5ML UDC PEG SCH ×2 (11:05→21:06)
[2017-03-30] MEDS: FOLIC ACID 1 MG TAB OG-TUBE SCH (11:05)
[2017-03-30] MEDS: LACTULOSE SYRUP 20 GM/30 ML CUP G-TUBE SCH ×3 (11:05→18:32)
[2017-03-30] MEDS: FUROSEMIDE 20 MG/2 ML VIAL IV PUSH SCH (11:06)
[2017-03-30] MEDS: levETIRAcetam 500 MG/5 ML UDC NG SCH ×2 (11:06→21:06)
[2017-03-30] MEDS: carBAMazepine SUSP 200 MG/10 ML UDC PEG SCH ×2 (11:06→21:06)
[2017-03-30] MEDS: SACUBITRIL/VALSARTAN 24 MG-26 MG TAB PEG SCH ×2 (11:07→21:07)
[2017-03-30] MEDS: ATORVASTATIN 40 MG TAB G-TUBE SCH (11:07)
[2017-03-30] MEDS: FAMOTIDINE 20 MG TAB NG SCH ×2 (11:07→21:07)
[2017-03-30] MEDS: BROMOCRIPTINE MESYLATE 2.5 MG TAB OG-TUBE SCH ×2 (11:07→21:07)
[2017-03-30] MEDS: ASCORBIC ACID 500 MG TAB PEG SCH ×2 (11:07→21:07)
[2017-03-30] MEDS: WARFARIN SOD 7.5 MG TAB PO SCH (15:56)
--- NOTE | 2017-03-30 16:34 | PD.WCN.NOT ---
Wound Consult Description: sacral Communicated with: ANDRE Dacosta Recommendation: Povidone-Iodine moist to dry BID and PRN for saturation or dislodgement Cover with dry cover (bordered gauze or ABD pad ok) Date dressing Additional Information: Patient seen on with ANDRE Dacosta for follow up of sacral wound. Patient was positioned to her right side for assessment. Bordered gauze and betadine soaked abhi removed to reveal a moderately vascular ~90% beefy red wound bed with ~10% palpated bone, mild odor, and without necrotic tissue visualized indicating an improving wound when compared to last assessment by keno writer / runner. Wound was cleansed with NS and gauze. Wound was measured 4.3cm x 4cm x 4cm with undermining noted from 7 o'clock - 5 o'clock with the deepest undermining of 5 cm noted @12 o'clock. Rolled gauze was moistened with Povidone-Iodine solution and inserted into wound bed and covered with an ABD pad secured with paper tape. Recommend to continue betadine moistened gauze packing with dry cover for one more week and then patient will be reassessed for alternative dressings. Stephany Fang [facility] Mar 30, 2017 16:34
--- NOTE | 2017-03-30 17:49 | PD.CARD.PN ---
Subjective Subjective Remarks Unresponsive, no significant arrhythmias Objective Medications Current Medications Medications (Trade) Dose Ordered Sig/Ora Route Start Time Stop Time Status Last Admin (Peridex 0.12% Liq) 15 ml BID@08,20 MT 11/18/16 08:00 03/30/17 08:00 (NS Flush) 2 ml BID IV FLUSH 11/18/16 09:00 03/30/17 09:00 (Morphine Inj) 2 mg Q2H PRN IV 11/18/16 03:30 03/27/17 10:13 (Zofran Inj) 4 mg Q6H PRN IV 11/18/16 03:30 11/26/16 03:20 Miscellaneous Information 1 Q361D XX 11/18/16 03:30 11/18/16 03:30 (Chlorhexidine 2% Cloth) Taper DAILY@04 TOP 11/18/16 04:00 11/14/17 03:59 03/28/17 04:03 (Chlorhexidine 2% Cloth) 3 pack UNSCH PRN TOP 11/18/16 03:30 (Parlodel) 2.5 mg Q12HR OG-TUBE 11/18/16 09:00 03/30/17 11:07 (Folate) 1 mg DAILY OG-TUBE 11/18/16 09:00 03/30/17 11:05 (Dulcolax Supp) 10 mg DAILY PRN RECTAL 12/14/16 15:45 (Pepcid) 20 mg BID NG 12/21/16 21:00 03/30/17 11:07 (TEGretol LIQ) 200 mg Q12HR PEG 01/06/17 09:00 03/30/17 11:06 (Corby Powder) 1 pack BID G-TUBE 01/13/17 09:00 03/30/17 09:00 (Ferrous Sulfate Liq) 300 mg BID PEG 01/26/17 21:00 03/30/17 11:05 (Vitamin C) 500 mg BID PEG 01/26/17 21:00 03/30/17 11:07 (Newington 5-325 Mg) 1 tab Q4H PRN G-TUBE 02/01/17 11:30 03/25/17 16:36 (Tylenol) 650 mg Q6H PRN G-TUBE 02/01/17 09:30 03/26/17 02:43 (Lipitor) 40 mg DAILY G-TUBE 02/01/17 09:00 03/30/17 11:07 (Senna Liq) 8.8 mg BID G-TUBE 02/01/17 09:00 03/30/17 11:05 (D50w (Vial) Inj) 25 ml UNSCH PRN IV PUSH 02/01/17 09:15 (Glucagon Inj) 1 mg UNSCH PRN OTHER 02/01/17 09:15 Pharmacy Profile Note 0 ml @ 0 mls/hr UNSCH OTHER 02/01/17 09:15 (Dakin'S 0.25% Soln) USE DAILY WITH DRESS... DAILY TOPICAL 02/12/17 18:00 03/30/17 09:00 (Betadine 10% Oint) 1 applic DAILY TOPICAL 02/15/17 09:00 03/30/17 09:00 (Lactulose Liq) 30 ml TID G-TUBE 02/21/17 13:00 03/30/17 15:56 (Zaroxolyn) 5 mg DAILY PEG 03/09/17 09:00 Future Hold 03/13/17 10:04 (Entresto 24-26 Mg) 1 tab BID PEG 03/08/17 21:00 03/30/17 11:07 (Free Water) VOLUME OF WATER: ( 300 ) ML Q8HR G-TUBE 03/09/17 14:00 03/30/17 14:00 (Levsin Liq) 0.125 mg Q6H G-TUBE 03/10/17 18:00 03/30/17 11:09 (Lasix Inj) 20 mg DAILY IV PUSH 03/16/17 11:30 03/30/17 11:06 (KCl Powder) 20 meq DAILY NG 03/17/17 09:00 03/30/17 09:00 (NovoLOG SUPPLEMENTAL SCALE) 1 BID SQ 03/20/17 21:00 03/22/17 22:04 (Albuterol Neb) 0.63 mg Q4HR NEB PRN NEB 03/21/17 09:15 (Atrovent Neb) 0.5 mg QID NEB NEB 03/21/17 12:00 03/30/17 16:00 (Keppra Liq) 1,000 mg Q12HR NG 03/21/17 21:00 03/30/17 11:06 Ceftriaxone Sodium 2000 mg/ Sodium Chloride 100 ml @ 200 mls/hr Q24H IV 03/24/17 18:00 03/29/17 17:44 (Lopressor) 50 mg Q6HR G-TUBE 03/27/17 18:00 03/30/17 11:05 (Coumadin) 7.5 mg DAILY@1600 PO 03/28/17 16:00 03/30/17 15:56 Vital Signs / I&O Vital Signs Date Time Temp Pulse Resp B/P (MAP) Pulse Ox O2 Delivery O2 Flow Rate FiO2 03/30/17 16:16 98.5 94 20 108/60 (76) 94 03/30/17 12:08 98.2 78 19 127/59 (81) 100 03/30/17 08:08 98.5 76 20 114/76 (89) 100 03/30/17 08:05 100 T-piece 5.00 28 03/30/17 04:00 98.6 79 20 112/65 (81) 100 03/30/17 00:00 T-Piece 28 03/30/17 00:00 98.7 82 20 116/ 99 03/29/17 20:22 83 03/29/17 20:00 99.0 81 20 111/59 (76) 81 03/29/17 20:00 T-Piece 28 I/O 03/29/17 03/29/17 03/29/17 03/30/17 03/30/17 03/30/17 07:00 15:00 23:00 07:00 15:00 23:00 Intake Total 1010 ml 1380 ml 1250 ml Output Total 450 ml 900 ml 500 ml Balance 560 ml 480 ml 750 ml Intake Oral 0 ml 240 ml Tube Feeding 360 ml 1080 ml 360 ml Tube Irrigant 50 ml 50 ml Other 600 ml 300 ml 600 ml Output Urine Total 450 ml 900 ml 500 ml # Bowel Movements 1 2 Physical Exam GENERAL: In NAD, poorly responsive SKIN: Warm and dry. HEAD: Normocephalic. EYES: No scleral icterus. No injection or drainage. NECK: Supple, trachea midline. No JVD or lymphadenopathy. Trach in place CARDIOVASCULAR: Regular rate and rhythm without murmurs, gallops, or rubs. RESPIRATORY: Breath sounds equal bilaterally. No accessory muscle use. GASTROINTESTINAL: Abdomen soft, non-tender, nondistended. MUSCULOSKELETAL: No cyanosis, or edema. Laboratory Laboratory Tests Test 03/30/17 08:03 Prothrombin Time 22.3 SEC Prothromb Time International Ratio 2.0 RATIO Imaging Last Impressions Chest X-Ray 03/20/17 0000 Signed Impressions: Service Date/Time: Monday, March 20, 2017 11:37 - CONCLUSION: Stable appearance with no acute cardiopulmonary disease. Lenny Kerns MD Abdomen X-Ray 02/11/17 0000 Signed Impressions: Service Date/Time: Saturday, February 11, 2017 17:52 - CONCLUSION: Minimal colonic distention. Kenneth Frost MD FACR Catheter Change 02/10/17 0000 Signed Impressions: Service Date/Time: February 13:47 - CONCLUSION: Uncomplicated fluoroscopic guided gastrostomy tube replacement. Positioning confirmed. The tube can be used immediately. Nghia Pacheco MD Lower Extremity Ultrasound 02/01/17 0000 Signed Impressions: Service Date/Time: Wednesday, February 01, 2017 13:23 - CONCLUSION: Normal examination. 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 Sami Mccarthy MD Assessment and Plan Problem List: (1) Narrow complex tachycardia ICD Codes: I47.1 - Supraventricular tachycardia Status: Acute (2) CVA (cerebral vascular accident) ICD Codes: I63.9 - Cerebral infarction, unspecified Status: Acute (3) Seizure ICD Codes: R56.9 - Unspecified convulsions Status: Acute (4) Moyamoya disease ICD Codes: I67.5 - Moyamoya disease Status: Acute (5) Encephalopathy ICD Codes: G93.40 - Encephalopathy, unspecified Status: Acute (6) Accelerated essential hypertension ICD Codes: I10 - Accelerated essential hypertension Status: Acute (7) Respiratory failure, acute ICD Codes: J96.00 - Acute respiratory failure, unspecified whether with hypoxia or hypercapnia Status: Acute Assessment and Plan No new cardiac issues. Telemetry with no significant arrhythmias on metoprolol. Remains stable from cardiac standpoint. Continue current program including metoprolol. Anticipate transfer to long-term care facility. Klaus Panchal MD Mar 30, 2017 17:49
[2017-03-30] MEDS: cefTRIAXone INJ 2,000 MG in SODIUM CHLORIDE 0.9% INJ 100 ML IV SCH (18:32)
--- NOTE | 2017-03-30 20:19 | HHI.PR ---
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 Mod amount of trach secretions Gets wound packed with Betadine. Objective Vital Signs Vital Signs Date Time Temp Pulse Resp B/P (MAP) Pulse Ox O2 Delivery O2 Flow Rate FiO2 03/30/17 19:45 100 T-piece 6.00 28 03/30/17 16:16 98.5 94 20 108/60 (76) 94 03/30/17 12:08 98.2 78 19 127/59 (81) 100 03/30/17 08:08 98.5 76 20 114/76 (89) 100 03/30/17 08:05 71 03/30/17 08:05 100 T-piece 5.00 28 03/30/17 08:00 T-Piece 28 03/30/17 04:00 98.6 79 20 112/65 (81) 100 03/30/17 00:00 T-Piece 28 03/30/17 00:00 98.7 82 20 116/ 99 03/29/17 20:22 83 I/O 03/29/17 03/29/17 03/29/17 03/30/17 03/30/17 03/30/17 07:00 15:00 23:00 07:00 15:00 23:00 Intake Total 1010 ml 1380 ml 1250 ml 1380 ml Output Total 450 ml 900 ml 500 ml 1400 ml Balance 560 ml 480 ml 750 ml -20 ml Intake Oral 0 ml 240 ml Tube Feeding 360 ml 1080 ml 360 ml 1080 ml Tube Irrigant 50 ml 50 ml Other 600 ml 300 ml 600 ml 300 ml Output Urine Total 450 ml 900 ml 500 ml 1400 ml # Bowel Movements 1 2 0 Result Diagram: 03/27/17 0418 03/28/17821 Objective Remarks GENERAL: MBMN WF, on Trach collar SKIN: Warm and dry. HEAD: Normocephalic. EYES: No scleral icterus. No injection or drainage. NECK: Supple, trachea midline. No JVD or lymphadenopathy. has trach CARDIOVASCULAR: Regular rate and rhythm without murmurs, gallops, or rubs. RESPIRATORY: Breath sounds equal bilaterally. No accessory muscle use. GASTROINTESTINAL: Abdomen soft, non-tender, nondistended. has PEG MUSCULOSKELETAL: No cyanosis, or edema. BACK: Nontender without obvious deformity. No CVA tenderness. A/P Assessment and Plan RF, S/P Trach CVA Arango arango disease CAD COPD SZ disorder PLAN: Aerosol nebs Cont trach collar supplement 02, keep sat >90% Trach suction prn. PARTHA RN at BS. TF Cont Levsin.prn Vernon Marx MD Mar 30, 2017 20:19
--- NOTE | 2017-03-30 21:34 | HHI.PR ---
Subjective Remarks Spoke with case management, no facility willing to take pt in current state since insurance will only cover either services for trach OR peg but not both. No family at bedside today. resp status stable on trach. Objective Vital Signs Date Time Temp Pulse Resp B/P (MAP) Pulse Ox O2 Delivery O2 Flow Rate FiO2 03/30/17 20:42 98.4 90 16 110/57 (74) 99 03/30/17 19:45 100 T-piece 6.00 28 03/30/17 16:16 98.5 94 20 108/60 (76) 94 03/30/17 12:08 98.2 78 19 127/59 (81) 100 03/30/17 08:08 98.5 76 20 114/76 (89) 100 03/30/17 08:05 71 03/30/17 08:05 100 T-piece 5.00 28 03/30/17 08:00 T-Piece 28 03/30/17 04:00 98.6 79 20 112/65 (81) 100 03/30/17 00:00 T-Piece 28 03/30/17 00:00 98.7 82 20 116/ 99 I/O 03/29/17 03/29/17 03/29/17 03/30/17 03/30/17 03/30/17 06:59 14:59 22:59 06:59 14:59 22:59 Intake Total 1010 ml 1380 ml 1250 ml 1380 ml Output Total 450 ml 900 ml 500 ml 1400 ml Balance 560 ml 480 ml 750 ml -20 ml Intake Oral 0 ml 240 ml Tube Feeding 360 ml 1080 ml 360 ml 1080 ml Tube Irrigant 50 ml 50 ml Other 600 ml 300 ml 600 ml 300 ml Output Urine Total 450 ml 900 ml 500 ml 1400 ml # Bowel Movements 1 2 0 Result Diagram: 03/27/17 0418 03/28/17 0822 Procedures 11/24/2016 Percutaneous tracheostomy. Objective Remarks GENERAL: on trach, NAD, easily aroused today Respiratory: Currently on trach, no secretions noted on trach , unlabored breathing, GASTROINTESTINAL: Abdomen soft, non-tender, minimal distention Cardiovascular: Mild lower extremity edema, atrophied legs, regular rate and rhythm, no murmurs A/P Assessment and Plan 65-year-old female with past medical history of CVA for which she at one point was on warfarin but had been discontinued. She was was admitted to [facility] emergency department 11/04/16 with difficulty getting her thoughts together. She was found to have multifocal ischemic infarcts in left frontal and parietal regions, right frontal lobe and history of moyamoya disease. She was initially awake and following commands with weakness of RLE and some aphasia. She was transferred to [facility] where he had an cerebral angiogram consistent with moyamoya. There were plans to perform extracranial/ intracranial bypass. However she had a seizure and ended up being intubated for status epilepticus 11/2016 She was found to have a new right frontal infarct area and she was started on Dilantin and Keppra and it was felt that she would not be a candidate for intervention. She has been intubated 9-10 days. Treating team was discussing with family trach/PEG. Family requested transfer back to [place] because they live locally here and wanted her closer to home. Patient remained under critical care medicine until 12/24/2016. afib + recent SVT - cardiology following, on lopressor has been uptitrated by cardiology, on warfarin for afib anticoagulation. Viridans strep bacteremia in 2 anaerobic bottles. GPC in 2 aerobic bottles. Real versus pseudo-bacteremia. Repeated blood culture 7 days ago, so far NGTD. On rocephin per ID now. 7 more days of IV Rocephin per ID, can be discharged if secured placement. - Bilateral large frontal CVA - atorvastatin, touch base w/ neurology in AM since prior recommendation was to hold anticoagulation due to size of CVA; pt currently on warfarin for afib. Moyamoya Disease Seizure Disorder - Tegretol 200 mg q12h - Continue Bromocriptine - Keppra 1000 mg twice a day. Hyperammonemia: - continue Lactulose 30 ml PO TID. - f/u AM ammonia level Mixed Systolic and diastolic heart failure, acute - Continue Lasix 20mg daily - On Entresto - Monitor electrolytes and renal function. Hyponatremia: f/u bmp in AM Hypokalemia: Stable, f/u in AM - Monitor BMP Anasarca: stable w/ lasix daily Chronic Respiratory Failure Chronic obstructive pulmonary disease - Pulmonology following - Continue tracheostomy with supplemental oxygen to Maintain O2 sat greater than 92% - Levsin for increased secretions - Wean off O2, possible capping and decannulation Dysphagia Hypoalbuminemia - PEG placed. Continue TF bolus schedule. New onset DM - HgA1C 6.5 - Insulin S/S. monitor Accu-Cheks. Monitor for hypoglycemia. - ISS BID Sacral/Coccyx wound - Continue specialty bed. - Wound care following GI Prophylaxis: Pepcid. DVT prophylaxis: SCDs. Coumadin for afib. Difficulty finding placement facilities that would take pt with trach and peg. Currently afebrile, likely resolving from infectious/state. ID ok w/ midline for IV rocephin if placement found (7 more days of abx at this point). Gil Melgar MD Mar 30, 2017 21:34
[2017-03-31] VITALS (11 sets, daily range): BP systolic 100–124; BP diastolic 59–71; PULSE 76–95; RESP 18–21; TEMP 97.6–98.7; O2SAT 97–100
[2017-03-31] MEDS: METOPROLOL TARTRATE 25 MG TAB G-TUBE SCH ×5 (00:34→23:52)
[2017-03-31] MEDS: HYOSCYAMINE SOLN 0.125 MG/ML 15 ML BTL G-TUBE SCH ×4 (00:36→23:52)
[2017-03-31] MEDS: CHLORHEXIDINE GLUCONATE 2 % 1 PACK (2 CLOTHS) TOP SCH (03:20)
[2017-03-31] MEDS: FREE WATER G-TUBE SCH ×3 (05:33→21:21)
[2017-03-31] MEDS: CHLORHEXIDINE 0.12% (ORAL KIT) 15 ML CUP MT SCH ×2 (08:00→20:00)
[2017-03-31] MEDS: RESP: IPRATROPIUM 0.5 MG/2.5 ML NEB NEB SCH ×4 (08:05→20:13)
--- NOTE | 2017-03-31 08:19 | HHI.PR ---
Subjective Remarks no sz reported to me recently Objective Vital Signs Date Time Temp Pulse Resp B/P (MAP) Pulse Ox O2 Delivery O2 Flow Rate FiO2 03/31/17 08:05 97 T-piece 28 03/31/17 05:04 97.6 90 18 113/69 (84) 100 03/31/17 04:00 T-Piece 6.00 28 Humidified 03/31/17 00:55 97.7 89 18 100/59 (73) 98 03/31/17 00:37 98 T-piece 6.00 28 03/30/17 23:54 T-Piece 6.00 28 Humidified 03/30/17 20:42 98.4 90 16 110/57 (74) 99 03/30/17 20:00 T-Piece 6.00 28 Humidified 03/30/17 19:59 104 03/30/17 19:45 100 T-piece 6.00 28 03/30/17 16:16 98.5 94 20 108/60 (76) 94 03/30/17 12:08 98.2 78 19 127/59 (81) 100 I/O 03/30/17 03/30/17 03/30/17 03/31/17 03/31/17 03/31/17 07:00 15:00 23:00 07:00 15:00 23:00 Intake Total 1250 ml 1380 ml 480 ml Output Total 500 ml 1400 ml 500 ml Balance 750 ml -20 ml -20 ml Intake Oral 240 ml 480 ml Tube Feeding 360 ml 1080 ml Tube Irrigant 50 ml Other 600 ml 300 ml Output Urine Total 500 ml 1400 ml 500 ml # Bowel Movements 0 Result Diagram: 03/27/17 0418 03/28/17 0822 Procedures 11/24/2016 Percutaneous tracheostomy. Objective Remarks not following commands pupils = does moves eyes around and tracks me and rxt to threat nl no command following no change stable again nl tone ble inc tone and spastic bue Assessment and Plan Assessment and Plan imp huge r frontal cva and inc size left frontal cva may eventually awaken and interact more mri no change resolving cva eeg some left sharps stay on keppra no anticoag now due to size of cva trached and pegged I THINK SHE LOOKS BETTER AND EVENTUALLY MAY INTERACT MORE AND SPEAK WE WILL HAVE TO WAIT AND SEE SOME DAMAGE TO LANGUAGE AREA IN FRONT I THINK BY MRI no change here 01/06/17 focal sz add tegretol check eeg and mri - 01/07/17 no more sz mri not new eeg neg on cbz 4.6 and keppra follow level i will be out of town call neuro isf any new sz 01/24/17 no more sz reported on cbz level 7 and keppra eeg neg sz mri no major change stable neuro check cbz labs ast alt cbc bmp in one month 02/09/17 stable neuro no improvement na down recently if no other reason could be tegretol let me know if u think that is cause call me 03/31/17 stable neuro check cbz level Terrence Flores MD Mar 31, 2017 08:19
[2017-03-31 08:37] LABS: BICARBONATE 30.5 MEQ/L (21.0-32.0); INTERNATIONAL NORMALIZED RATIO 2.3 RATIO; POTASSIUM 4.3 MEQ/L (3.5-5.1); PROTHROMBIN TIME - PATIENT 26.5 SEC (9.8-11.6)
[2017-03-31] MEDS: ASCORBIC ACID 500 MG TAB PEG SCH ×2 (08:46→21:19)
[2017-03-31] MEDS: FERROUS SULFATE 300 MG /5ML UDC PEG SCH ×2 (08:46→21:19)
[2017-03-31] MEDS: BROMOCRIPTINE MESYLATE 2.5 MG TAB OG-TUBE SCH ×2 (08:46→21:19)
[2017-03-31] MEDS: carBAMazepine SUSP 200 MG/10 ML UDC PEG SCH ×2 (08:49→21:19)
[2017-03-31] MEDS: POTASSIUM CHLORIDE 20 MEQ PWD PACKET NG SCH (08:50)
[2017-03-31] MEDS: SACUBITRIL/VALSARTAN 24 MG-26 MG TAB PEG SCH ×2 (08:51→21:19)
[2017-03-31] MEDS: FUROSEMIDE 20 MG/2 ML VIAL IV PUSH SCH (08:51)
[2017-03-31] MEDS: ATORVASTATIN 40 MG TAB G-TUBE SCH (08:51)
[2017-03-31] MEDS: FAMOTIDINE 20 MG TAB NG SCH ×2 (08:52→21:19)
[2017-03-31] MEDS: FOLIC ACID 1 MG TAB OG-TUBE SCH (08:52)
[2017-03-31] MEDS: JUVEN POWDER 1 PACK G-TUBE SCH ×2 (08:55→21:00)
[2017-03-31] MEDS: levETIRAcetam 500 MG/5 ML UDC NG SCH ×2 (08:56→21:20)
[2017-03-31] MEDS: SENNOSIDES SYRUP 8.8 MG/5 ML CUP G-TUBE SCH ×2 (09:00→21:20)
[2017-03-31] MEDS: SODIUM HYPOCHLORITE 0.25% 500 ML BTL TOPICAL SCH (09:00)
[2017-03-31] MEDS: INSULIN ASPART SUPPLEMENTAL SCALE SQ SCH ×2 (09:00→21:00)
[2017-03-31] MEDS: SODIUM CHLORIDE 0.9% FLUSH 10 ML FLUSH IV FLUSH SCH ×2 (09:00→21:20)
[2017-03-31] MEDS: LACTULOSE SYRUP 20 GM/30 ML CUP G-TUBE SCH ×3 (09:39→17:31)
--- NOTE | 2017-03-31 10:33 | PD.CARD.PN ---
Subjective Subjective Remarks Unresponsive, rhythm stable Objective Medications Current Medications Medications (Trade) Dose Ordered Sig/Ora Route Start Time Stop Time Status Last Admin (Peridex 0.12% Liq) 15 ml BID@08,20 MT 11/18/16 08:00 03/30/17 20:00 (NS Flush) 2 ml BID IV FLUSH 11/18/16 09:00 03/30/17 21:07 (Morphine Inj) 2 mg Q2H PRN IV 11/18/16 03:30 03/27/17 10:13 (Zofran Inj) 4 mg Q6H PRN IV 11/18/16 03:30 11/26/16 03:20 Miscellaneous Information 1 Q361D XX 11/18/16 03:30 11/18/16 03:30 (Chlorhexidine 2% Cloth) 3 pack Taper DAILY@04 TOP 11/18/16 04:00 11/14/17 03:59 03/28/17 04:03 (Chlorhexidine 2% Cloth) 3 pack UNSCH PRN TOP 11/18/16 03:30 (Parlodel) 2.5 mg Q12HR OG-TUBE 11/18/16 09:00 03/31/17 08:46 (Folate) 1 mg DAILY OG-TUBE 11/18/16 09:00 03/31/17 08:52 (Dulcolax Supp) 10 mg DAILY PRN RECTAL 12/14/16 15:45 (Pepcid) 20 mg BID NG 12/21/16 21:00 03/31/17 08:52 (TEGretol LIQ) 200 mg Q12HR PEG 01/06/17 09:00 03/31/17 08:49 ([place] Powder) 1 pack BID G-TUBE 01/13/17 09:00 03/31/17 08:55 (Ferrous Sulfate Liq) 300 mg BID PEG 01/26/17 21:00 03/31/17 08:46 (Vitamin C) 500 mg BID PEG 01/26/17 21:00 03/31/17 08:46 ([place] 5-325 Mg) 1 tab Q4H PRN G-TUBE 02/01/17 11:30 03/25/17 16:36 (Tylenol) 650 mg Q6H PRN G-TUBE 02/01/17 09:30 03/26/17 02:43 (Lipitor) 40 mg DAILY G-TUBE 02/01/17 09:00 03/31/17 08:51 (Senna Liq) 8.8 mg BID G-TUBE 02/01/17 09:00 03/30/17 21:06 (D50w (Vial) Inj) 25 ml UNSCH PRN IV PUSH 02/01/17 09:15 (Glucagon Inj) 1 mg UNSCH PRN OTHER 02/01/17 09:15 Pharmacy Profile Note 0 ml @ 0 mls/hr UNSCH OTHER 02/01/17 09:15 (Dakin'S 0.25% Soln) USE DAILY WITH DRESS... DAILY TOPICAL 02/12/17 18:00 03/30/17 09:00 (Betadine 10% Oint) 1 applic DAILY TOPICAL 02/15/17 09:00 03/30/17 09:00 (Lactulose Liq) 30 ml TID G-TUBE 02/21/17 13:00 03/31/17 09:39 (Zaroxolyn) 5 mg DAILY PEG 03/09/17 09:00 Future Hold 03/13/17 10:04 (Entresto 24-26 Mg) 1 tab BID PEG 03/08/17 21:00 03/31/17 08:51 (Free Water) VOLUME OF WATER: ( 300 ) ML Q8HR G-TUBE 03/09/17 14:00 03/31/17 05:33 (Levsin Liq) 0.125 mg Q6H G-TUBE 03/10/17 18:00 03/31/17 05:33 (Lasix Inj) 20 mg DAILY IV PUSH 03/16/17 11:30 03/31/17 08:51 (KCl Powder) 20 meq DAILY NG 03/17/17 09:00 03/31/17 08:50 (NovoLOG SUPPLEMENTAL SCALE) 1 BID SQ 03/20/17 21:00 03/22/17 22:04 (Albuterol Neb) 0.63 mg Q4HR NEB PRN NEB 03/21/17 09:15 (Atrovent Neb) 0.5 mg QID NEB NEB 03/21/17 12:00 03/31/17 08:05 (Keppra Liq) 1,000 mg Q12HR NG 03/21/17 21:00 03/31/17 08:56 Ceftriaxone Sodium 2000 mg/ Sodium Chloride 100 ml @ 200 mls/hr Q24H IV 03/24/17 18:00 03/30/17 18:32 (Lopressor) 50 mg Q6HR G-TUBE 03/27/17 18:00 03/31/17 05:32 (Coumadin) 7.5 mg DAILY@1600 PO 03/28/17 16:00 03/30/17 15:56 Vital Signs / I&O Vital Signs Date Time Temp Pulse Resp B/P (MAP) Pulse Ox O2 Delivery O2 Flow Rate FiO2 03/31/17 08:08 98.6 81 20 119/70 (86) 100 03/31/17 08:05 97 T-piece 28 03/31/17 05:04 97.6 90 18 113/69 (84) 100 03/31/17 04:00 T-Piece 6.00 28 Humidified 03/31/17 00:55 97.7 89 18 100/59 (73) 98 03/31/17 00:37 98 T-piece 6.00 28 03/30/17 23:54 T-Piece 6.00 28 Humidified 03/30/17 20:42 98.4 90 16 110/57 (74) 99 03/30/17 20:00 T-Piece 6.00 28 Humidified 03/30/17 19:59 104 03/30/17 19:45 100 T-piece 6.00 28 03/30/17 16:16 98.5 94 20 108/60 (76) 94 03/30/17 12:08 98.2 78 19 127/59 (81) 100 I/O 03/30/17 03/30/17 03/30/17 03/31/17 03/31/17 03/31/17 06:59 14:59 22:59 06:59 14:59 22:59 Intake Total 1250 ml 1380 ml 480 ml Output Total 500 ml 1400 ml 500 ml Balance 750 ml -20 ml -20 ml Intake Oral 240 ml 480 ml Tube Feeding 360 ml 1080 ml Tube Irrigant 50 ml Other 600 ml 300 ml Output Urine Total 500 ml 1400 ml 500 ml # Bowel Movements 0 Physical Exam GENERAL: In NAD, poorly responsive SKIN: Warm and dry. HEAD: Normocephalic. EYES: No scleral icterus. No injection or drainage. NECK: Supple, trachea midline. No JVD or lymphadenopathy. Trach in place CARDIOVASCULAR: Regular rate and rhythm without murmurs, gallops, or rubs. RESPIRATORY: Breath sounds equal bilaterally. No accessory muscle use. GASTROINTESTINAL: Abdomen soft, non-tender, nondistended. MUSCULOSKELETAL: No cyanosis, or edema. Laboratory Laboratory Tests Test 03/31/17 07:40 Prothrombin Time 26.5 SEC Prothromb Time International Ratio 2.3 RATIO Blood Urea Nitrogen 19 MG/DL Creatinine 0.40 MG/DL Random Glucose 105 MG/DL Calcium Level 8.9 MG/DL Sodium Level 135 MEQ/L Potassium Level 4.3 MEQ/L Chloride Level 98 MEQ/L Carbon Dioxide Level 30.5 MEQ/L Anion Gap 7 MEQ/L Estimat Glomerular Filtration Rate 161 ML/MIN Ammonia 22 MCMOL/L Imaging Last Impressions Chest X-Ray 03/20/17 0000 Signed Impressions: Service Date/Time: Monday, March 20, 2017 11:37 - CONCLUSION: Stable appearance with no acute cardiopulmonary disease. Lenny Kerns MD Abdomen X-Ray 02/11/17 0000 Signed Impressions: Service Date/Time: Saturday, February 11, 2017 17:52 - CONCLUSION: Minimal colonic distention. Kenneth Frost MD FACR Catheter Change 02/10/17 0000 Signed Impressions: Service Date/Time: February 13:47 - CONCLUSION: Uncomplicated fluoroscopic guided gastrostomy tube replacement. Positioning confirmed. The tube can be used immediately. Nghia Pacheco MD Lower Extremity Ultrasound 02/01/17 0000 Signed Impressions: Service Date/Time: Wednesday, February 01, 2017 13:23 - CONCLUSION: Normal examination. 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 Telemetry with no significant arrhythmias on metoprolol. No new cardiac issues. Continue current program including metoprolol. Transfer to long-term care facility would likely be the next step. Klaus Panchal MD Mar 31, 2017 10:33
--- NOTE | 2017-03-31 14:32 | HHI.IDPN ---
Subjective Subjective Remarks Ms. Rivas is a 66-year-old female with past medical history significant for stroke who was on warfarin but had discontinued it, prior history of moyamoya disease. With this background patient was admitted to [facility] on November 04, 2016 with history of difficulty getting her thoughts together. She was found to have multifocal nonhemorrhagic infarcts in the left frontal and parietal regions, right frontal lobe and history of moyamoya disease. Review of records it appears that there were plans for extracranial intracranial bypass. However she had a seizure and ended up being intubated for status epilepticus. Subsequently she was found to have a new right frontal infarct and she was started on Dilantin and Keppra and deemed to be a suitable candidate for any further surgical intervention at that point. At the request of the family patient was transferred back to [facility]. At [place] palliative care has been involved and per review of the records it appears that patient is currently full code and patient's family agreed to a trach and PEG tube placement. Upon further review of records it appears that patient isn't being treated for pneumonia due to a fever on November 27 with Zosyn IV and cultures with MSSA and pseudomonas aeruginosa. No reported seizures recently. Neurologically patient opens eyes spontaneously, but remains nonresponsive does not follow any commands. At the time of my evaluation patient is is in the [facility]MC currently not on any pressors, has a Brown in place. RN reports take white secretions moderate amounts. ID reconsulted for Strep bacteremia. No central lines in place or PICC etc,. Has a PIV. No fevers No neuro change. Trach site with no e.o infection PEG tube site ok with no e.o infection. Antibiotics Rocephin IV Lines Line sites with no e.o infection. Past Medical History reviewed Allergies: Uncoded Allergies: YES, CAN'T REM. RELAXING MED. (Adverse Reaction, Intermediate, NECK TWISTS TO SIDE, 12/07/09) Objective . Vital Signs Date Time Temp Pulse Resp B/P (MAP) Pulse Ox O2 Delivery O2 Flow Rate FiO2 03/31/17 12:33 98.7 86 21 124/71 (88) 100 03/31/17 08:08 98.6 81 20 119/70 (86) 100 03/31/17 08:05 97 T-piece 28 03/31/17 05:04 97.6 90 18 113/69 (84) 100 03/31/17 04:00 T-Piece 6.00 28 Humidified 03/31/17 00:55 97.7 89 18 100/59 (73) 98 03/31/17 00:37 98 T-piece 6.00 28 03/30/17 23:54 T-Piece 6.00 28 Humidified 03/30/17 20:42 98.4 90 16 110/57 (74) 99 03/30/17 20:00 T-Piece 6.00 28 Humidified 03/30/17 19:59 104 03/30/17 19:45 100 T-piece 6.00 28 03/30/17 16:16 98.5 94 20 108/60 (76) 94 . Laboratory Tests Test 03/31/17 07:40 Blood Urea Nitrogen 19 MG/DL Creatinine 0.40 MG/DL Random Glucose 105 MG/DL Calcium Level 8.9 MG/DL Sodium Level 135 MEQ/L Potassium Level 4.3 MEQ/L Chloride Level 98 MEQ/L Carbon Dioxide Level 30.5 MEQ/L Anion Gap 7 MEQ/L Estimat Glomerular Filtration Rate 161 ML/MIN Ammonia 22 MCMOL/L Imaging Last Impressions Chest X-Ray 01/09/17 0000 Signed Impressions: Service Date/Time: Monday, January 09, 2017 11:56 - CONCLUSION: Mild bilateral pulmonary vasculature indistinctness suggesting pulmonary vascular congestion/mild pulmonary edema. Sami Mccarthy MD Brain MRI 01/06/17 0000 Signed Impressions: Service Date/Time: January 14:19 - CONCLUSION: Continued evolutionary changes of large bilateral frontal lobe infarcts. Sami Mccarthy MD Abdomen X-Ray 11/26/16 0000 Signed Impressions: Service Date/Time: Saturday, November 26, 2016 10:18 - CONCLUSION: Distended stomach otherwise nonspecific abdomen. K. David Murillo MD Physical Exam GENERAL: Chronically ill appearing patient, in no apparent distress. SKIN: No rashes, ecchymoses or lesions. Cool and dry. HEAD: Atraumatic. Normocephalic. No temporal or scalp tenderness. EYES: Pupils equal round and reactive. Extraocular motions intact. No scleral icterus. No injection or drainage. ENT: Trach site with no e.o infection. CARDIOVASCULAR: Regular rate and rhythm without murmurs, gallops, or rubs. RESPIRATORY: Clear to auscultation. Breath sounds equal bilaterally. No wheezes , rales, or rhonchi. GASTROINTESTINAL: Abdomen soft, non-tender, nondistended. PEG tube site with no e.o infection. MUSCULOSKELETAL: Extremities without clubbing, cyanosis, or edema. NEUROLOGICAL: Opens eyes spontaneously. Did not follow commands. Non verbal. IV line sites with no e.o infection Assessment & Plan Remarks Strep viridans bacteremia : ? Sacral decub infection cellulitis vs deeper infection ? ostemyelitis. Sputum with GNR and Staph aureus ? colonization. CXR normal, not much secretions. Urine with Kleb pneumo and E.coli : ? colonization. Bilateral frontal CVA left greater than right Moyamoya - confirmed by arteriogram at [facility] 10/22 Seizure disorder NOS Vent dependent respiratory failure COPD Coronary artery disease with prior myocardial infarction Hypertension Right ICA occlusion Dyslipidemia Recs Continue Ceftriaxone IV (Stop date 04/05/2017) Follow cultures Follow clinically. Will sign off please call back if any change in clinical condition or questions. Cheyenne Mcbride MD Mar 31, 2017 14:32
--- NOTE | 2017-03-31 16:24 | HHI.PR ---
Subjective Remarks Follow-up visit bilateral frontal CVA, moyamoya disease, seizure disorder, COPD , hyponatremia. recently diagnosed with Strep bacteremia Patient seen and examined today. Patient is awake and non-verbal. Does not follow any commands. T-piece in place. Per RN (Sarah) no acute issues over night or since start of shift. Objective Vitals Vital Signs Date Time Temp Pulse Resp B/P (MAP) Pulse Ox O2 Delivery O2 Flow Rate FiO2 03/31/17 15:44 88 03/31/17 12:33 98.7 86 21 124/71 (88) 100 03/31/17 08:08 98.6 81 20 119/70 (86) 100 03/31/17 08:05 97 T-piece 28 03/31/17 05:04 97.6 90 18 113/69 (84) 100 03/31/17 04:00 T-Piece 6.00 28 Humidified 03/31/17 00:55 97.7 89 18 100/59 (73) 98 03/31/17 00:37 98 T-piece 6.00 28 03/30/17 23:54 T-Piece 6.00 28 Humidified 03/30/17 20:42 98.4 90 16 110/57 (74) 99 03/30/17 20:00 T-Piece 6.00 28 Humidified 03/30/17 19:59 104 03/30/17 19:45 100 T-piece 6.00 28 03/30/17 16:16 98.5 94 20 108/60 (76) 94 I/O 03/30/17 03/30/17 03/30/17 03/31/17 03/31/17 03/31/17 07:00 15:00 23:00 07:00 15:00 23:00 Intake Total 1250 ml 1380 ml 480 ml Output Total 500 ml 1400 ml 500 ml Balance 750 ml -20 ml -20 ml Intake Oral 240 ml 480 ml Tube Feeding 360 ml 1080 ml Tube Irrigant 50 ml Other 600 ml 300 ml Output Urine Total 500 ml 1400 ml 500 ml # Bowel Movements 0 Result Diagram: 03/27/17 0418 03/31/17 8140 Objective Remarks GENERAL: Pt encountered laying a bed, T-piece in place, eyes open throughout, in NAD. SKIN: Warm and dry. Pitting edema noted along forearms. HEAD: Normocephalic. EYES: No scleral icterus. No injection or drainage. NECK: Supple, t-piece in place. CARDIOVASCULAR: Regular rate and rhythm without murmurs, gallops, or rubs. RESPIRATORY: Breath sounds equal bilaterally, without rhonchi or wheezes. 100% oxygenation per bedside monitor. GASTROINTESTINAL: Abdomen soft, non-tender non-distended. G-tube in place MUSCULOSKELETAL: No cyanosis. Bilateral SCD's in place as were bilateral off loading boots. Neurological: Pt not responding to commands. Eyes opened (as noted above). No tracking noted. Procedures PEG 11/24/2016 Percutaneous tracheostomy. 11/18/2016 Moderate encephalopathy with suggestion of left temporal region cortical irritability. No active seizures. Clinical correlation. Echocardiogram Severe dilated left ventricle. Wall thickness is normal. The left ventricular systolic function is moderately reduced with an estimated ejection fraction in the range of 35-40%. Doppler parameters are consistent with a restrictive left ventricular filling pattern indicative of decreased left ventricular diastolic compliance and increase left atrial pressure (grade 3 diastolic dysfunction). There is severe tricuspid regurgitation. There is severe pulmonary hypertension present ( > 70 mmHg). Severe mitral valve regurgitation. Medications and IVs Current Medications Medications (Trade) Dose Ordered Sig/Ora Route Start Time Stop Time Status Last Admin (Peridex 0.12% Liq) 15 ml BID@08,20 MT 11/18/16 08:00 03/30/17 20:00 (NS Flush) 2 ml BID IV FLUSH 11/18/16 09:00 03/31/17 09:00 (Morphine Inj) 2 mg Q2H PRN IV 11/18/16 03:30 03/27/17 10:13 (Zofran Inj) 4 mg Q6H PRN IV 11/18/16 03:30 11/26/16 03:20 Miscellaneous Information 1 Q361D XX 11/18/16 03:30 11/18/16 03:30 (Chlorhexidine 2% Cloth) 3 pack Taper DAILY@04 TOP 11/18/16 04:00 11/14/17 03:59 03/28/17 04:03 (Chlorhexidine 2% Cloth) 3 pack UNSCH PRN TOP 11/18/16 03:30 (Parlodel) 2.5 mg Q12HR OG-TUBE 11/18/16 09:00 03/31/17 08:46 (Folate) 1 mg DAILY OG-TUBE 11/18/16 09:00 03/31/17 08:52 (Dulcolax Supp) 10 mg DAILY PRN RECTAL 12/14/16 15:45 (Pepcid) 20 mg BID NG 12/21/16 21:00 03/31/17 08:52 (TEGretol LIQ) 200 mg Q12HR PEG 01/06/17 09:00 03/31/17 08:49 (Corby Powder) 1 pack BID G-TUBE 01/13/17 09:00 03/31/17 08:55 (Ferrous Sulfate Liq) 300 mg BID PEG 01/26/17 21:00 03/31/17 08:46 (Vitamin C) 500 mg BID PEG 01/26/17 21:00 03/31/17 08:46 ([place] 5-325 Mg) 1 tab Q4H PRN G-TUBE 02/01/17 11:30 03/25/17 16:36 (Tylenol) 650 mg Q6H PRN G-TUBE 02/01/17 09:30 03/26/17 02:43 (Lipitor) 40 mg DAILY G-TUBE 02/01/17 09:00 03/31/17 08:51 (Senna Liq) 8.8 mg BID G-TUBE 02/01/17 09:00 03/30/17 21:06 (D50w (Vial) Inj) 25 ml UNSCH PRN IV PUSH 02/01/17 09:15 (Glucagon Inj) 1 mg UNSCH PRN OTHER 02/01/17 09:15 Pharmacy Profile Note 0 ml @ 0 mls/hr UNSCH OTHER 02/01/17 09:15 (Dakin'S 0.25% Soln) USE DAILY WITH DRESS... DAILY TOPICAL 02/12/17 18:00 03/30/17 09:00 (Betadine 10% Oint) 1 applic DAILY TOPICAL 02/15/17 09:00 03/30/17 09:00 (Lactulose Liq) 30 ml TID G-TUBE 02/21/17 13:00 03/31/17 12:55 (Zaroxolyn) 5 mg DAILY PEG 03/09/17 09:00 Future Hold 03/13/17 10:04 (Entresto 24-26 Mg) 1 tab BID PEG 03/08/17 21:00 03/31/17 08:51 (Free Water) VOLUME OF WATER: ( 300 ) ML Q8HR G-TUBE 03/09/17 14:00 03/31/17 05:33 (Levsin Liq) 0.125 mg Q6H G-TUBE 03/10/17 18:00 03/31/17 05:33 (Lasix Inj) 20 mg DAILY IV PUSH 03/16/17 11:30 03/31/17 08:51 (KCl Powder) 20 meq DAILY NG 03/17/17 09:00 03/31/17 08:50 (NovoLOG SUPPLEMENTAL SCALE) 1 BID SQ 03/20/17 21:00 03/22/17 22:04 (Albuterol Neb) 0.63 mg Q4HR NEB PRN NEB 03/21/17 09:15 (Atrovent Neb) 0.5 mg QID NEB NEB 03/21/17 12:00 03/31/17 15:56 (Keppra Liq) 1,000 mg Q12HR NG 03/21/17 21:00 03/31/17 08:56 Ceftriaxone Sodium 2000 mg/ Sodium Chloride 100 ml @ 200 mls/hr Q24H IV 03/24/17 18:00 04/05/17 17:59 03/30/17 18:32 (Lopressor) 50 mg Q6HR G-TUBE 03/27/17 18:00 03/31/17 11:23 (Coumadin) 7.5 mg DAILY@1600 PO 03/28/17 16:00 03/30/17 15:56 Urinary Catheter: Yes Assessment to: Continue Brown insert reason: Prolonged Immobilization Date of Insertion: Feb 28, 2017 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 Status: Acute (2) Seizure ICD Code: R56.9 - Unspecified convulsions Status: Acute (3) CVA (cerebral vascular accident) ICD Code: I63.9 - Cerebral infarction, unspecified Status: Acute (4) Respiratory failure, acute ICD Code: J96.00 - Acute respiratory failure, unspecified whether with hypoxia or hypercapnia Status: Acute (5) COPD (chronic obstructive pulmonary disease) ICD Code: J44.9 - Chronic obstructive pulmonary disease, unspecified Status: Chronic (6) Acute hypernatremia ICD Code: E87.0 - Hyperosmolality and hypernatremia Status: Resolved Assessment and Plan 66-year-old female with past medical history of CVA for which she at one point was on warfarin but had been discontinued. She was was admitted to [facility] emergency department 11/04/16 with difficulty getting her thoughts together. She was found to have multifocal ischemic infarcts in left frontal and parietal regions, right frontal lobe and history of moyamoya disease. She was initially awake and following commands with weakness of RLE and some aphasia. She was transferred to [facility] where he had an cerebral angiogram consistent with moyamoya. There were plans to perform extracranial/ intracranial bypass. However she had a seizure and ended up being intubated for status epilepticus 11/2016 She was found to have a new right frontal infarct area and she was started on Dilantin and Keppra and it was felt that she would not be a candidate for intervention. She has been intubated 9-10 days. Treating team was discussing with family trach/PEG. Family requested transfer back to [place] because they live locally here and wanted her closer to home. Patient remained under critical care medicine until 12/24/2016. Moved from ICU to medical surgery unit. Hypertension: Stable. systolic dysfunction: Continue Entresto. Viridans strep bacteremia IV Rocephin per ID until 04/04/17, can be discharged if secured placement. - Moyamoya Disease Seizure Disorder - Tegretol 200 mg q12h - Continue Bromocriptine - Keppra 1000 mg twice a day. Hyperammonemia: - continue Lactulose 30 ml PO TID. - f/u AM ammonia level, -level is 22 Mixed Systolic and diastolic heart failure, acute - Continue Lasix 20mg daily - On Entresto - Monitor electrolytes and renal function. Hyponatremia: f/u bmp in AM, 135 Hypokalemia: Stable, f/u in AM - Monitor BMP -Stable Anasarca: stable w/ lasix daily Chronic Respiratory Failure Chronic obstructive pulmonary disease - Pulmonology following - Continue tracheostomy with supplemental oxygen to Maintain O2 sat greater than 92% - Levsin for increased secretions - Wean off O2, possible capping and decannulation Dysphagia Hypoalbuminemia - PEG placed. Continue TF bolus schedule. New onset DM - HgA1C 6.5 - Insulin S/S. monitor Accu-Cheks. Monitor for hypoglycemia. - ISS BID Sacral/Coccyx wound - Continue specialty bed. - Wound care following GI Prophylaxis: Pepcid. DVT prophylaxis: SCDs. Coumadin for afib. Case discussed with RN and Drs. Yuan and Abdulkadir (cardiology). Discharge Planning Difficulty finding placement facilities that would take pt with trach and peg. CM continuing to address placement. Trell Torres Jr. MADISYN Mar 31, 2017 16:24
[2017-03-31] MEDS: WARFARIN SOD 7.5 MG TAB PO SCH (16:46)
[2017-03-31] MEDS: cefTRIAXone INJ 2,000 MG in SODIUM CHLORIDE 0.9% INJ 100 ML IV SCH (17:32)
[2017-03-31] MEDS: POVIDONE IODINE 10% OINT 30 GM TUBE TOPICAL SCH (17:36)
--- NOTE | 2017-03-31 19:18 | HHI.PR ---
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 Mod amount of trach secretions Gets wound packed with Betadine. Has strep bactremia Objective Vital Signs Vital Signs Date Time Temp Pulse Resp B/P (MAP) Pulse Ox O2 Delivery O2 Flow Rate FiO2 03/31/17 16:26 98.2 95 20 115/64 (81) 99 03/31/17 15:44 88 03/31/17 12:33 98.7 86 21 124/71 (88) 100 03/31/17 08:08 98.6 81 20 119/70 (86) 100 03/31/17 08:05 97 T-piece 28 03/31/17 05:04 97.6 90 18 113/69 (84) 100 03/31/17 04:00 T-Piece 6.00 28 Humidified 03/31/17 00:55 97.7 89 18 100/59 (73) 98 03/31/17 00:37 98 T-piece 6.00 28 03/30/17 23:54 T-Piece 6.00 28 Humidified 03/30/17 20:42 98.4 90 16 110/57 (74) 99 03/30/17 20:00 T-Piece 6.00 28 Humidified 03/30/17 19:59 104 03/30/17 19:45 100 T-piece 6.00 28 I/O 03/30/17 03/30/17 03/30/17 03/31/17 03/31/17 03/31/17 06:59 14:59 22:59 06:59 14:59 22:59 Intake Total 1250 ml 1380 ml 480 ml 1080 ml Output Total 500 ml 1400 ml 500 ml 650 ml Balance 750 ml -20 ml -20 ml 430 ml Intake Oral 240 ml 480 ml Tube Feeding 360 ml 1080 ml 720 ml Tube Irrigant 50 ml 60 ml Other 600 ml 300 ml 300 ml Output Urine Total 500 ml 1400 ml 500 ml 650 ml # Bowel Movements 0 0 Result Diagram: 03/27/17 0418 03/31/17 0740 Objective Remarks GENERAL: MBMN WF, on Trach collar SKIN: Warm and dry. HEAD: Normocephalic. EYES: No scleral icterus. No injection or drainage. NECK: Supple, trachea midline. No JVD or lymphadenopathy. has trach CARDIOVASCULAR: Regular rate and rhythm without murmurs, gallops, or rubs. RESPIRATORY: Breath sounds equal bilaterally. No accessory muscle use. GASTROINTESTINAL: Abdomen soft, non-tender, nondistended. has PEG MUSCULOSKELETAL: No cyanosis, or edema. BACK: Nontender without obvious deformity. No CVA tenderness. A/P Assessment and Plan RF, S/P Trach CVA Arango arango disease CAD COPD SZ disorder PLAN: Aerosol nebs Cont trach collar supplement 02, keep sat >90% Trach suction prn. DW RN at BS. TF Cont Levsin.prn Rocephin per Vernon Sky MD Mar 31, 2017 19:18
[2017-04-01] VITALS (9 sets, daily range): BP systolic 80–125; BP diastolic 51–67; PULSE 79–105; RESP 17–20; TEMP 97.2–98.9; O2SAT 95–100
[2017-04-01] MEDS: CHLORHEXIDINE GLUCONATE 2 % 1 PACK (2 CLOTHS) TOP SCH (04:00)
[2017-04-01] MEDS: METOPROLOL TARTRATE 25 MG TAB G-TUBE SCH ×2 (05:24→11:42)
[2017-04-01] MEDS: HYOSCYAMINE SOLN 0.125 MG/ML 15 ML BTL G-TUBE SCH ×3 (05:25→18:00)
[2017-04-01] MEDS: FREE WATER G-TUBE SCH ×3 (05:25→22:00)
[2017-04-01] MEDS: CHLORHEXIDINE 0.12% (ORAL KIT) 15 ML CUP MT SCH ×2 (08:00→20:00)
[2017-04-01 08:33] LABS: HEMATOCRIT 29.4 % (35.0-46.0); MEAN CELL VOLUME 75.3 FL (80.0-100.0); MEAN CORPUSCULAR HEMOGLOBIN 22.8 PG (27.0-34.0); MEAN CORPUSCULAR HGB CONC 30.3 % (32.0-36.0); PLATELET COUNT 593 TH/MM3 (150-450); RED BLOOD COUNT 3.91 MIL/MM3 (4.00-5.30); RED CELL DISTRIBUTION WIDTH 20.2 % (11.6-17.2); REVIEW FLAG FINAL; WHITE BLOOD COUNT 10.6 TH/MM3 (4.0-11.0)
[2017-04-01 08:36] LABS: INTERNATIONAL NORMALIZED RATIO 2.1 RATIO; PROTHROMBIN TIME - PATIENT 24.2 SEC (9.8-11.6)
[2017-04-01 08:47] LABS: BICARBONATE 26.2 MEQ/L (21.0-32.0); POTASSIUM 4.6 MEQ/L (3.5-5.1)
[2017-04-01] MEDS: INSULIN ASPART SUPPLEMENTAL SCALE SQ SCH ×2 (09:00→21:00)
[2017-04-01] MEDS: SODIUM HYPOCHLORITE 0.25% 500 ML BTL TOPICAL SCH (09:00)
[2017-04-01] MEDS: SODIUM CHLORIDE 0.9% FLUSH 10 ML FLUSH IV FLUSH SCH ×2 (09:00→22:40)
[2017-04-01] MEDS: RESP: IPRATROPIUM 0.5 MG/2.5 ML NEB NEB SCH ×3 (09:18→20:00)
[2017-04-01] MEDS: BROMOCRIPTINE MESYLATE 2.5 MG TAB OG-TUBE SCH ×2 (11:00→22:39)
[2017-04-01] MEDS: FAMOTIDINE 20 MG TAB NG SCH ×2 (11:00→22:39)
[2017-04-01] MEDS: FOLIC ACID 1 MG TAB OG-TUBE SCH (11:00)
[2017-04-01] MEDS: carBAMazepine SUSP 200 MG/10 ML UDC PEG SCH ×2 (11:00→22:39)
[2017-04-01] MEDS: levETIRAcetam 500 MG/5 ML UDC NG SCH ×2 (11:00→22:40)
[2017-04-01] MEDS: ASCORBIC ACID 500 MG TAB PEG SCH ×2 (11:01→22:39)
[2017-04-01] MEDS: SENNOSIDES SYRUP 8.8 MG/5 ML CUP G-TUBE SCH ×2 (11:01→22:40)
[2017-04-01] MEDS: FUROSEMIDE 20 MG/2 ML VIAL IV PUSH SCH (11:01)
[2017-04-01] MEDS: LACTULOSE SYRUP 20 GM/30 ML CUP G-TUBE SCH ×2 (11:01→11:43)
[2017-04-01] MEDS: ATORVASTATIN 40 MG TAB G-TUBE SCH (11:02)
[2017-04-01] MEDS: POTASSIUM CHLORIDE 20 MEQ PWD PACKET NG SCH (11:02)
[2017-04-01] MEDS: FERROUS SULFATE 300 MG /5ML UDC PEG SCH ×2 (11:10→22:39)
[2017-04-01] MEDS: SACUBITRIL/VALSARTAN 24 MG-26 MG TAB PEG SCH ×2 (11:12→21:00)
[2017-04-01] MEDS: JUVEN POWDER 1 PACK G-TUBE SCH ×2 (11:15→21:00)
[2017-04-01] MEDS: POVIDONE IODINE 10% OINT 30 GM TUBE TOPICAL SCH (11:42)
--- NOTE | 2017-04-01 12:12 | HHI.PR ---
Subjective Remarks Follow-up visit bilateral frontal CVA, moyamoya disease, seizure disorder, COPD , hyponatremia. recently diagnosed with Strep bacteremia Patient seen and examined today. Patient was sleeping and briefly awakened when her eyes were examined. She remains non-verbal. Pt does not follow any commands. T-piece in place. Per RN (Paige) no acute issues over night or since start of shift. Objective Vitals Vital Signs Date Time Temp Pulse Resp B/P (MAP) Pulse Ox O2 Delivery O2 Flow Rate FiO2 04/01/17 09:19 100 T-piece 6.00 28 04/01/17 08:00 98.4 79 18 111/56 (74) 100 04/01/17 04:00 97.2 99 20 114/67 (83) 100 03/31/17 20:20 76 03/31/17 20:14 100 T-piece 6.00 28 03/31/17 20:00 T-Piece 6.00 28 03/31/17 20:00 98.3 82 20 119/62 (81) 99 03/31/17 16:26 98.2 95 20 115/64 (81) 99 03/31/17 15:44 88 03/31/17 12:33 98.7 86 21 124/71 (88) 100 I/O 03/31/17 03/31/17 03/31/17 04/01/17 04/01/17 04/01/17 07:00 15:00 23:00 07:00 15:00 23:00 Intake Total 480 ml 1080 ml Output Total 500 ml 650 ml 525 ml Balance -20 ml 430 ml -525 ml Intake Oral 480 ml Tube Feeding 720 ml Tube Irrigant 60 ml Other 300 ml Output Urine Total 500 ml 650 ml 525 ml # Bowel Movements 0 Result Diagram: 04/01/1770004/01/17 0701 Objective Remarks GENERAL: Pt encountered laying a bed, T-piece in place, eyes closed throughout, in NAD. SKIN: Warm and dry. Pitting edema noted along forearms and feet HEAD: Normocephalic. EYES: No scleral icterus. No injection or drainage. NECK: Supple, t-piece in place. CARDIOVASCULAR: Regular rate (72 bpm) and rhythm without murmurs, gallops, or rubs. RESPIRATORY: Breath sounds equal bilaterally, without rhonchi or wheezes. 100% oxygenation per bedside monitor. GASTROINTESTINAL: Abdomen soft, non-tender non-distended. G-tube in place MUSCULOSKELETAL: No cyanosis. Bilateral SCD's in place as were bilateral off loading boots. Neurological: Pt not responding to commands. Procedures PEG 11/24/2016 Percutaneous tracheostomy. 11/18/2016 Moderate encephalopathy with suggestion of left temporal region cortical irritability. No active seizures. Clinical correlation. Echocardiogram Severe dilated left ventricle. Wall thickness is normal. The left ventricular systolic function is moderately reduced with an estimated ejection fraction in the range of 35-40%. Doppler parameters are consistent with a restrictive left ventricular filling pattern indicative of decreased left ventricular diastolic compliance and increase left atrial pressure (grade 3 diastolic dysfunction). There is severe tricuspid regurgitation. There is severe pulmonary hypertension present ( > 70 mmHg). Severe mitral valve regurgitation. Medications and IVs Current Medications Medications (Trade) Dose Ordered Sig/Ora Route Start Time Stop Time Status Last Admin (Peridex 0.12% Liq) 15 ml BID@08,20 MT 11/18/16 08:00 04/01/17 08:00 (NS Flush) 2 ml BID IV FLUSH 11/18/16 09:00 04/01/17 09:00 (Morphine Inj) 2 mg Q2H PRN IV 11/18/16 03:30 03/27/17 10:13 (Zofran Inj) 4 mg Q6H PRN IV 11/18/16 03:30 11/26/16 03:20 Miscellaneous Information 1 Q361D XX 11/18/16 03:30 11/18/16 03:30 (Chlorhexidine 2% Cloth) 3 pack Taper DAILY@04 TOP 11/18/16 04:00 11/14/17 03:59 03/28/17 04:03 (Chlorhexidine 2% Cloth) 3 pack UNSCH PRN TOP 11/18/16 03:30 (Parlodel) 2.5 mg Q12HR OG-TUBE 11/18/16 09:00 04/01/17 11:00 (Folate) 1 mg DAILY OG-TUBE 11/18/16 09:00 04/01/17 11:00 (Dulcolax Supp) 10 mg DAILY PRN RECTAL 12/14/16 15:45 (Pepcid) 20 mg BID NG 12/21/16 21:00 04/01/17 11:00 (TEGretol LIQ) 200 mg Q12HR PEG 01/06/17 09:00 04/01/17 11:00 ([place] Powder) 1 pack BID G-TUBE 01/13/17 09:00 04/01/17 11:15 (Ferrous Sulfate Liq) 300 mg BID PEG 01/26/17 21:00 04/01/17 11:10 (Vitamin C) 500 mg BID PEG 01/26/17 21:00 04/01/17 11:01 ([place] 5-325 Mg) 1 tab Q4H PRN G-TUBE 02/01/17 11:30 03/25/17 16:36 (Tylenol) 650 mg Q6H PRN G-TUBE 02/01/17 09:30 03/26/17 02:43 (Lipitor) 40 mg DAILY G-TUBE 02/01/17 09:00 04/01/17 11:02 (Senna Liq) 8.8 mg BID G-TUBE 02/01/17 09:00 04/01/17 11:01 (D50w (Vial) Inj) 25 ml UNSCH PRN IV PUSH 02/01/17 09:15 (Glucagon Inj) 1 mg UNSCH PRN OTHER 02/01/17 09:15 Pharmacy Profile Note 0 ml @ 0 mls/hr UNSCH OTHER 02/01/17 09:15 (Dakin'S 0.25% Soln) USE DAILY WITH DRESS... DAILY TOPICAL 02/12/17 18:00 04/01/17 09:00 (Betadine 10% Oint) 1 applic DAILY TOPICAL 02/15/17 09:00 04/01/17 11:42 (Lactulose Liq) 30 ml TID G-TUBE 02/21/17 13:00 04/01/17 11:01 (Zaroxolyn) 5 mg DAILY PEG 03/09/17 09:00 Future Hold 03/13/17 10:04 (Entresto 24-26 Mg) 1 tab BID PEG 03/08/17 21:00 04/01/17 11:12 (Free Water) VOLUME OF WATER: ( 300 ) ML Q8HR G-TUBE 03/09/17 14:00 04/01/17 05:25 (Levsin Liq) 0.125 mg Q6H G-TUBE 8/3/17 18:00 04/01/17 11:16 (Lasix Inj) 20 mg DAILY IV PUSH 03/16/17 11:30 04/01/17 11:01 (KCl Powder) 20 meq DAILY NG 03/17/17 09:00 04/01/17 11:02 (NovoLOG SUPPLEMENTAL SCALE) 1 BID SQ 03/20/17 21:00 03/22/17 22:04 (Albuterol Neb) 0.63 mg Q4HR NEB PRN NEB 03/21/17 09:15 (Atrovent Neb) 0.5 mg QID NEB NEB 03/21/17 12:00 04/01/17 09:18 (Keppra Liq) 1,000 mg Q12HR NG 03/21/17 21:00 04/01/17 11:00 Ceftriaxone Sodium 2000 mg/ Sodium Chloride 100 ml @ 200 mls/hr Q24H IV 03/24/17 18:00 04/05/17 17:59 03/31/17 17:32 (Lopressor) 50 mg Q6HR G-TUBE 03/27/17 18:00 04/01/17 11:42 (Coumadin) 7.5 mg DAILY@1600 PO 03/28/17 16:00 03/31/17 16:46 Urinary Catheter: Yes Assessment to: Continue Brown insert reason: Prolonged Immobilization 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 Status: Acute (2) Seizure ICD Code: R56.9 - Unspecified convulsions Status: Acute (3) CVA (cerebral vascular accident) ICD Code: I63.9 - Cerebral infarction, unspecified Status: Acute (4) Respiratory failure, acute ICD Code: J96.00 - Acute respiratory failure, unspecified whether with hypoxia or hypercapnia Status: Acute (5) COPD (chronic obstructive pulmonary disease) ICD Code: J44.9 - Chronic obstructive pulmonary disease, unspecified Status: Chronic (6) Acute hypernatremia ICD Code: E87.0 - Hyperosmolality and hypernatremia Status: Resolved (7) Microcytic anemia ICD Code: D50.9 - Iron deficiency anemia, unspecified Assessment and Plan 66-year-old female with past medical history of CVA for which she at one point was on warfarin but had been discontinued. She was was admitted to [facility] emergency department 11/04/16 with difficulty getting her thoughts together. She was found to have multifocal ischemic infarcts in left frontal and parietal regions, right frontal lobe and history of moyamoya disease. She was initially awake and following commands with weakness of RLE and some aphasia. She was transferred to [facility] where he had an cerebral angiogram consistent with moyamoya. There were plans to perform extracranial/ intracranial bypass. However she had a seizure and ended up being intubated for status epilepticus 11/2016 She was found to have a new right frontal infarct area and she was started on Dilantin and Keppra and it was felt that she would not be a candidate for intervention. She has been intubated 9-10 days. Treating team was discussing with family trach/PEG. Family requested transfer back to [place] because they live locally here and wanted her closer to home. Patient remained under critical care medicine until 12/24/2016. Hypertension: Stable. Systolic dysfunction: Continue Entresto. Viridans strep bacteremia IV Rocephin per ID until 04/05/17, can be discharged if secured placement. Replace Brown catheter. Normocytic Anemia: continues with improvement noted. Continue to monitor - Moyamoya Disease Seizure Disorder - Tegretol 200 mg q12h - Continue Bromocriptine - Keppra 1000 mg twice a day. Hyperammonemia: - continue Lactulose 30 ml PO TID. - f/u AM ammonia level, -level is 22 Mixed Systolic and diastolic heart failure, acute - Continue Lasix 20mg daily - On Entresto - Monitor electrolytes and renal function. Hyponatremia: f/u bmp in AM, 135 Hypokalemia: Stable, f/u in AM - Monitor BMP -Stable Anasarca: stable w/ lasix daily Chronic Respiratory Failure Chronic obstructive pulmonary disease - Pulmonology following - Continue tracheostomy with supplemental oxygen to Maintain O2 sat greater than 92% - Levsin for increased secretions - Wean off O2, possible capping and decannulation Dysphagia Hypoalbuminemia - PEG placed. Continue TF bolus schedule. New onset DM - HgA1C 6.5 - Insulin S/S. monitor Accu-Cheks. Monitor for hypoglycemia. - ISS BID Sacral/Coccyx wound - Continue specialty bed. - Wound care following GI Prophylaxis: Pepcid. DVT prophylaxis: SCDs. Coumadin for afib. Case discussed with RN and Dr. Yuan. Discharge Planning Difficulty finding placement facilities that would take pt with trach and peg. CM continuing to address placement. Trell Torres Jr. MADISYN Apr 01, 2017 12:12
[2017-04-01] MEDS: WARFARIN SOD 7.5 MG TAB PO SCH (16:10)
--- NOTE | 2017-04-01 18:52 | HHI.PR ---
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 Mod amount of trach secretions Objective Vital Signs Vital Signs Date Time Temp Pulse Resp B/P (MAP) Pulse Ox O2 Delivery O2 Flow Rate FiO2 04/01/17 16:00 98.5 85 18 107/53 (71) 95 04/01/17 12:00 98.0 91 18 125/58 (80) 95 04/01/17 09:19 100 T-piece 6.00 28 04/01/17 08:00 98.4 79 18 111/56 (74) 100 04/01/17 04:00 97.2 99 20 114/67 (83) 100 03/31/17 20:20 76 03/31/17 20:14 100 T-piece 6.00 28 03/31/17 20:00 T-Piece 6.00 28 03/31/17 20:00 98.3 82 20 119/62 (81) 99 I/O 03/31/17 03/31/17 03/31/17 04/01/17 04/01/17 04/01/17 07:00 15:00 23:00 07:00 15:00 23:00 Intake Total 480 ml 1080 ml Output Total 500 ml 650 ml 525 ml 1800 ml Balance -20 ml 430 ml -525 ml -1800 ml Intake Oral 480 ml Tube Feeding 720 ml Tube Irrigant 60 ml Other 300 ml Output Urine Total 500 ml 650 ml 525 ml 1800 ml # Bowel Movements 0 1 Result Diagram: 04/01/17 0701 04/01/17 0701 Objective Remarks GENERAL: MBMN WF, on Trach collar SKIN: Warm and dry. HEAD: Normocephalic. EYES: No scleral icterus. No injection or drainage. NECK: Supple, trachea midline. No JVD or lymphadenopathy. has trach CARDIOVASCULAR: Regular rate and rhythm without murmurs, gallops, or rubs. RESPIRATORY: Breath sounds equal bilaterally. No accessory muscle use. GASTROINTESTINAL: Abdomen soft, non-tender, nondistended. has PEG MUSCULOSKELETAL: No cyanosis, or edema. BACK: Nontender without obvious deformity. No CVA tenderness. A/P Assessment and Plan RF, S/P Trach CVA Arango arango disease CAD COPD SZ disorder PLAN: Aerosol nebs Cont trach collar supplement 02, keep sat >90% DW RN at BS. TF Cont Levsin.prn Samuel per Vernon Sky MD Apr 01, 2017 18:52
--- NOTE | 2017-04-01 19:39 | PD.CARD.PN ---
Subjective Subjective Remarks Unresponsive, no change in overall status Objective Medications Current Medications Medications (Trade) Dose Ordered Sig/Ora Route Start Time Stop Time Status Last Admin (Peridex 0.12% Liq) 15 ml BID@08,20 MT 11/18/16 08:00 04/01/17 08:00 (NS Flush) 2 ml BID IV FLUSH 11/18/16 09:00 04/01/17 09:00 (Morphine Inj) 2 mg Q2H PRN IV 11/18/16 03:30 03/27/17 10:13 (Zofran Inj) 4 mg Q6H PRN IV 11/18/16 03:30 11/26/16 03:20 Miscellaneous Information 1 Q361D XX 11/18/16 03:30 11/18/16 03:30 (Chlorhexidine 2% Cloth) 3 pack Taper DAILY@04 TOP 11/18/16 04:00 11/14/17 03:59 03/28/17 04:03 (Chlorhexidine 2% Cloth) 3 pack UNSCH PRN TOP 11/18/16 03:30 (Parlodel) 2.5 mg Q12HR OG-TUBE 11/18/16 09:00 04/01/17 11:00 (Folate) 1 mg DAILY OG-TUBE 11/18/16 09:00 04/01/17 11:00 (Dulcolax Supp) 10 mg DAILY PRN RECTAL 12/14/16 15:45 (Pepcid) 20 mg BID NG 12/21/16 21:00 04/01/17 11:00 (TEGretol LIQ) 200 mg Q12HR PEG 01/06/17 09:00 04/01/17 11:00 ([place] Powder) 1 pack BID G-TUBE 01/13/17 09:00 04/01/17 11:15 (Ferrous Sulfate Liq) 300 mg BID PEG 01/26/17 21:00 04/01/17 11:10 (Vitamin C) 500 mg BID PEG 01/26/17 21:00 04/01/17 11:01 ([place] 5-325 Mg) 1 tab Q4H PRN G-TUBE 02/01/17 11:30 03/25/17 16:36 (Tylenol) 650 mg Q6H PRN G-TUBE 02/01/17 09:30 03/26/17 02:43 (Lipitor) 40 mg DAILY G-TUBE 02/01/17 09:00 04/01/17 11:02 (Senna Liq) 8.8 mg BID G-TUBE 02/01/17 09:00 04/01/17 11:01 (D50w (Vial) Inj) 25 ml UNSCH PRN IV PUSH 02/01/17 09:15 (Glucagon Inj) 1 mg UNSCH PRN OTHER 02/01/17 09:15 Pharmacy Profile Note 0 ml @ 0 mls/hr UNSCH OTHER 02/01/17 09:15 (Dakin'S 0.25% Soln) USE DAILY WITH DRESS... DAILY TOPICAL 02/12/17 18:00 04/01/17 09:00 (Betadine 10% Oint) 1 applic DAILY TOPICAL 02/15/17 09:00 04/01/17 11:42 (Lactulose Liq) 30 ml TID G-TUBE 02/21/17 13:00 03/27/17 09:00 (Zaroxolyn) 5 mg DAILY PEG 03/09/17 09:00 Future Hold 03/13/17 10:04 (Entresto 24-26 Mg) 1 tab BID PEG 03/08/17 21:00 04/01/17 11:12 (Free Water) VOLUME OF WATER: ( 300 ) ML Q8HR G-TUBE 03/09/17 14:00 04/01/17 13:02 (Levsin Liq) 0.125 mg Q6H G-TUBE 03/10/17 18:00 04/01/17 11:16 (Lasix Inj) 20 mg DAILY IV PUSH 03/16/17 11:30 04/01/17 11:01 (KCl Powder) 20 meq DAILY NG 03/17/17 09:00 04/01/17 11:02 (NovoLOG SUPPLEMENTAL SCALE) 1 BID SQ 03/20/17 21:00 03/22/17 22:04 (Albuterol Neb) 0.63 mg Q4HR NEB PRN NEB 03/21/17 09:15 (Atrovent Neb) 0.5 mg QID NEB NEB 03/21/17 12:00 04/01/17 12:32 (Keppra Liq) 1,000 mg Q12HR NG 03/21/17 21:00 04/01/17 11:00 Ceftriaxone Sodium 2000 mg/ Sodium Chloride 100 ml @ 200 mls/hr Q24H IV 03/24/17 18:00 04/05/17 17:59 03/31/17 17:32 (Lopressor) 50 mg Q6HR G-TUBE 03/27/17 18:00 04/01/17 11:42 (Coumadin) 7.5 mg DAILY@1600 PO 03/28/17 16:00 04/01/17 16:10 Vital Signs / I&O Vital Signs Date Time Temp Pulse Resp B/P (MAP) Pulse Ox O2 Delivery O2 Flow Rate FiO2 04/01/17 16:00 98.5 85 18 107/53 (71) 95 04/01/17 12:00 98.0 91 18 125/58 (80) 95 04/01/17 09:19 100 T-piece 6.00 28 04/01/17 08:00 98.4 79 18 111/56 (74) 100 04/01/17 04:00 97.2 99 20 114/67 (83) 100 03/31/17 20:20 76 03/31/17 20:14 100 T-piece 6.00 28 03/31/17 20:00 T-Piece 6.00 28 03/31/17 20:00 98.3 82 20 119/62 (81) 99 I/O 03/31/17 03/31/17 03/31/17 04/01/17 04/01/17 04/01/17 07:00 15:00 23:00 07:00 15:00 23:00 Intake Total 480 ml 1080 ml Output Total 500 ml 650 ml 525 ml 1800 ml Balance -20 ml 430 ml -525 ml -1800 ml Intake Oral 480 ml Tube Feeding 720 ml Tube Irrigant 60 ml Other 300 ml Output Urine Total 500 ml 650 ml 525 ml 1800 ml # Bowel Movements 0 1 Physical Exam GENERAL: In NAD, poorly responsive SKIN: Warm and dry. HEAD: Normocephalic. EYES: No scleral icterus. No injection or drainage. NECK: Supple, trachea midline. No JVD or lymphadenopathy. Trach in place CARDIOVASCULAR: Regular rate and rhythm without murmurs, gallops, or rubs. RESPIRATORY: Breath sounds equal bilaterally. No accessory muscle use. GASTROINTESTINAL: Abdomen soft, non-tender, nondistended. MUSCULOSKELETAL: No cyanosis, or edema. Laboratory Laboratory Tests Test 8/25/17 07:01 White Blood Count 10.6 TH/MM3 Red Blood Count 3.91 MIL/MM3 Hemoglobin 8.9 GM/DL Hematocrit 29.4 % Mean Corpuscular Volume 75.3 FL Mean Corpuscular Hemoglobin 22.8 PG Mean Corpuscular Hemoglobin Concent 30.3 % Red Cell Distribution Width 20.2 % Platelet Count 593 TH/MM3 Mean Platelet Volume 7.5 FL Prothrombin Time 24.2 SEC Prothromb Time International Ratio 2.1 RATIO Blood Urea Nitrogen 20 MG/DL Creatinine 0.36 MG/DL Random Glucose 89 MG/DL Calcium Level 8.6 MG/DL Sodium Level 135 MEQ/L Potassium Level 4.6 MEQ/L Chloride Level 98 MEQ/L Carbon Dioxide Level 26.2 MEQ/L Anion Gap 11 MEQ/L Estimat Glomerular Filtration Rate 181 ML/MIN Imaging Last Impressions Chest X-Ray 03/20/17 0000 Signed Impressions: Service Date/Time: Monday, March 20, 2017 11:37 - CONCLUSION: Stable appearance with no acute cardiopulmonary disease. Lenny Kerns MD Abdomen X-Ray 02/11/17 0000 Signed Impressions: Service Date/Time: Saturday, February 11, 2017 17:52 - CONCLUSION: Minimal colonic distention. Kenneth Frost MD FACR Catheter Change 02/10/17 0000 Signed Impressions: Service Date/Time: February 13:47 - CONCLUSION: Uncomplicated fluoroscopic guided gastrostomy tube replacement. Positioning confirmed. The tube can be used immediately. Nghia Pacheco MD Lower Extremity Ultrasound 02/01/17 0000 Signed Impressions: Service Date/Time: Wednesday, February 01, 2017 13:23 - CONCLUSION: Normal examination. 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 Sami Mccarthy MD Assessment and Plan Problem List: (1) Narrow complex tachycardia ICD Codes: I47.1 - Supraventricular tachycardia Status: Acute (2) CVA (cerebral vascular accident) ICD Codes: I63.9 - Cerebral infarction, unspecified Status: Acute (3) Seizure ICD Codes: R56.9 - Unspecified convulsions Status: Acute (4) Moyamoya disease ICD Codes: I67.5 - Moyamoya disease Status: Acute (5) Encephalopathy ICD Codes: G93.40 - Encephalopathy, unspecified Status: Acute (6) Accelerated essential hypertension ICD Codes: I10 - Accelerated essential hypertension Status: Acute (7) Respiratory failure, acute ICD Codes: J96.00 - Acute respiratory failure, unspecified whether with hypoxia or hypercapnia Status: Acute Assessment and Plan No new cardiac issues. Remains stable from cardiac standpoint. Telemetry with no significant arrhythmias on metoprolol. Continue current program including metoprolol. Recommend to transfer to long-term care facility. Klaus Panchal MD Apr 01, 2017 19:39
[2017-04-02] VITALS (10 sets, daily range): BP systolic 109–131; BP diastolic 59–70; PULSE 75–95; RESP 19–20; TEMP 97.3–98.8; O2SAT 95–100
[2017-04-02] MEDS: METOPROLOL TARTRATE 25 MG TAB G-TUBE SCH ×4 (01:23→18:11)
[2017-04-02] MEDS: CHLORHEXIDINE GLUCONATE 2 % 1 PACK (2 CLOTHS) TOP SCH (04:00)
[2017-04-02] MEDS: HYOSCYAMINE SOLN 0.125 MG/ML 15 ML BTL G-TUBE SCH ×4 (06:00→18:00)
[2017-04-02] MEDS: FREE WATER G-TUBE SCH ×3 (06:00→21:46)
[2017-04-02] MEDS: CHLORHEXIDINE 0.12% (ORAL KIT) 15 ML CUP MT SCH ×2 (08:00→21:46)
[2017-04-02 08:13] LABS: INTERNATIONAL NORMALIZED RATIO 2.3 RATIO
[2017-04-02] MEDS: RESP: IPRATROPIUM 0.5 MG/2.5 ML NEB NEB SCH ×3 (08:14→22:41)
[2017-04-02] MEDS: JUVEN POWDER 1 PACK G-TUBE SCH ×2 (09:00→21:45)
[2017-04-02] MEDS: SODIUM HYPOCHLORITE 0.25% 500 ML BTL TOPICAL SCH (09:00)
[2017-04-02] MEDS: POTASSIUM CHLORIDE 20 MEQ PWD PACKET NG SCH (09:00)
[2017-04-02] MEDS: POVIDONE IODINE 10% OINT 30 GM TUBE TOPICAL SCH (09:00)
[2017-04-02] MEDS: INSULIN ASPART SUPPLEMENTAL SCALE SQ SCH ×2 (09:00→21:00)
--- NOTE | 2017-04-02 09:46 | HHI.PR ---
Subjective Remarks Follow-up visit bilateral frontal CVA, moyamoya disease, seizure disorder, COPD , hyponatremia. recently diagnosed with Strep bacteremia Patient seen and examined today. Patient was sleeping and did not awaken or respond when her eye lids were opened. She remains non-verbal. Pt does not follow any commands. T-piece in place. Per RN (Amanda) no acute issues over night or since start of shift.No issues reported with pt being placed on continuous feeds. Objective Vitals Vital Signs Date Time Temp Pulse Resp B/P (MAP) Pulse Ox O2 Delivery O2 Flow Rate FiO2 04/02/17 08:17 100 T-piece 4.00 28 04/02/17 04:00 97.3 82 19 121/70 (87) 100 04/02/17 00:00 98.2 95 19 131/63 (85) 100 04/01/17 22:45 105/55 (72) 04/01/17 20:50 96 T-piece 5.00 28 04/01/17 20:50 96 T-piece 5.00 28 04/01/17 20:09 97 T-Piece 5.00 28 04/01/17 20:05 105 04/01/17 20:00 98.9 96 17 80/51 (61) 100 04/01/17 16:00 98.5 85 18 107/53 (71) 95 04/01/17 12:00 98.0 91 18 125/58 (80) 95 I/O 04/01/17 04/01/17 04/01/17 04/02/17 04/02/17 04/02/17 06:59 14:59 22:59 06:59 14:59 22:59 Intake Total 920 ml 920 ml Output Total 525 ml 1800 ml 600 ml Balance -525 ml 920 ml -880 ml -600 ml Intake Oral 920 ml 920 ml Output Urine Total 525 ml 1800 ml 600 ml # Bowel Movements 1 1 Result Diagram: 04/01/17 0704/01/17 07 Objective Remarks GENERAL: Pt encountered laying a bed, T-piece in place, eyes closed throughout, in NAD. SKIN: Warm and dry. No pitting edema noted along forearms and fee this morning. HEAD: Normocephalic. EYES: No scleral icterus. No injection or drainage. NECK: Supple, t-piece in place. CARDIOVASCULAR: Regular rate (74 bpm) and rhythm without murmurs, gallops, or rubs. RESPIRATORY: Breath sounds equal bilaterally, without rhonchi or wheezes. 99% oxygenation per bedside monitor. GASTROINTESTINAL: Abdomen soft, non-tender non-distended. G-tube in place MUSCULOSKELETAL: No cyanosis. Bilateral SCD's in place as were bilateral off loading boots. Neurological: Pt not responding to commands. Procedures PEG 11/24/2016 Percutaneous tracheostomy. 11/18/2016 Moderate encephalopathy with suggestion of left temporal region cortical irritability. No active seizures. Clinical correlation. Echocardiogram Severe dilated left ventricle. Wall thickness is normal. The left ventricular systolic function is moderately reduced with an estimated ejection fraction in the range of 35-40%. Doppler parameters are consistent with a restrictive left ventricular filling pattern indicative of decreased left ventricular diastolic compliance and increase left atrial pressure (grade 3 diastolic dysfunction). There is severe tricuspid regurgitation. There is severe pulmonary hypertension present ( > 70 mmHg). Severe mitral valve regurgitation. Medications and IVs Current Medications Medications (Trade) Dose Ordered Sig/Ora Route Start Time Stop Time Status Last Admin (Peridex 0.12% Liq) 15 ml BID@08,20 MT 11/18/16 08:00 04/01/17 20:00 (NS Flush) 2 ml BID IV FLUSH 11/18/16 09:00 04/01/17 22:40 (Morphine Inj) 2 mg Q2H PRN IV 11/18/16 03:30 03/27/17 10:13 (Zofran Inj) 4 mg Q6H PRN IV 11/18/16 03:30 11/26/16 03:20 Miscellaneous Information 1 Q361D XX 11/18/16 03:30 11/18/16 03:30 (Chlorhexidine 2% Cloth) 3 pack Taper DAILY@04 TOP 11/18/16 04:00 11/14/17 03:59 03/28/17 04:03 (Chlorhexidine 2% Cloth) 3 pack UNSCH PRN TOP 11/18/16 03:30 (Parlodel) 2.5 mg Q12HR OG-TUBE 11/18/16 09:00 04/01/17 22:39 (Folate) 1 mg DAILY OG-TUBE 11/18/16 09:00 04/01/17 11:00 (Dulcolax Supp) 10 mg DAILY PRN RECTAL 12/14/16 15:45 (Pepcid) 20 mg BID NG 12/21/16 21:00 04/01/17 22:39 (TEGretol LIQ) 200 mg Q12HR PEG 01/06/17 09:00 04/01/17 22:39 ([place] Powder) 1 pack BID G-TUBE 01/13/17 09:00 04/01/17 21:00 (Ferrous Sulfate Liq) 300 mg BID PEG 01/26/17 21:00 04/01/17 22:39 (Vitamin C) 500 mg BID PEG 01/26/17 21:00 04/01/17 22:39 ([place] 5-325 Mg) 1 tab Q4H PRN G-TUBE 02/01/17 11:30 03/25/17 16:36 (Tylenol) 650 mg Q6H PRN G-TUBE 02/01/17 09:30 03/26/17 02:43 (Lipitor) 40 mg DAILY G-TUBE 02/01/17 09:00 04/01/17 11:02 (Senna Liq) 8.8 mg BID G-TUBE 02/01/17 09:00 04/01/17 22:40 (D50w (Vial) Inj) 25 ml UNSCH PRN IV PUSH 02/01/17 09:15 (Glucagon Inj) 1 mg UNSCH PRN OTHER 02/01/17 09:15 Pharmacy Profile Note 0 ml @ 0 mls/hr UNSCH OTHER 02/01/17 09:15 (Dakin'S 0.25% Soln) USE DAILY WITH DRESS... DAILY TOPICAL 02/12/17 18:00 04/01/17 09:00 (Betadine 10% Oint) 1 applic DAILY TOPICAL 02/15/17 09:00 04/01/17 11:42 (Lactulose Liq) 30 ml TID G-TUBE 02/21/17 13:00 03/27/17 09:00 (Zaroxolyn) 5 mg DAILY PEG 03/09/17 09:00 Future Hold 03/13/17 10:04 (Entresto 24-26 Mg) 1 tab BID PEG 03/08/17 21:00 04/01/17 11:12 (Free Water) VOLUME OF WATER: ( 300 ) ML Q8HR G-TUBE 03/09/17 14:00 04/02/17 06:00 (Levsin Liq) 0.125 mg Q6H G-TUBE 03/10/17 18:00 04/02/17 06:00 (Lasix Inj) 20 mg DAILY IV PUSH 03/16/17 11:30 04/01/17 11:01 (KCl Powder) 20 meq DAILY NG 03/17/17 09:00 04/01/17 11:02 (NovoLOG SUPPLEMENTAL SCALE) 1 BID SQ 03/20/17 21:00 03/22/17 22:04 (Albuterol Neb) 0.63 mg Q4HR NEB PRN NEB 03/21/17 09:15 (Atrovent Neb) 0.5 mg QID NEB NEB 03/21/17 12:00 04/02/17 08:14 (Keppra Liq) 1,000 mg Q12HR NG 03/21/17 21:00 04/01/17 22:40 Ceftriaxone Sodium 2000 mg/ Sodium Chloride 100 ml @ 200 mls/hr Q24H IV 03/24/17 18:00 04/05/17 17:59 03/31/17 17:32 (Lopressor) 50 mg Q6HR G-TUBE 03/27/17 18:00 04/02/17 06:31 (Coumadin) 7.5 mg DAILY@1600 PO 03/28/17 16:00 04/01/17 16:10 Urinary Catheter: Yes Assessment to: Continue Brown insert reason: Prolonged Immobilization 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 Status: Acute (2) Seizure ICD Code: R56.9 - Unspecified convulsions Status: Acute (3) CVA (cerebral vascular accident) ICD Code: I63.9 - Cerebral infarction, unspecified Status: Acute (4) Respiratory failure, acute ICD Code: J96.00 - Acute respiratory failure, unspecified whether with hypoxia or hypercapnia Status: Acute (5) COPD (chronic obstructive pulmonary disease) ICD Code: J44.9 - Chronic obstructive pulmonary disease, unspecified Status: Chronic (6) Acute hypernatremia ICD Code: E87.0 - Hyperosmolality and hypernatremia Status: Resolved (7) Microcytic anemia ICD Code: D50.9 - Iron deficiency anemia, unspecified Assessment and Plan 66-year-old female with past medical history of CVA for which she at one point was on warfarin but had been discontinued. She was was admitted to [facility] emergency department 11/04/16 with difficulty getting her thoughts together. She was found to have multifocal ischemic infarcts in left frontal and parietal regions, right frontal lobe and history of moyamoya disease. She was initially awake and following commands with weakness of RLE and some aphasia. She was transferred to [facility] where he had an cerebral angiogram consistent with moyamoya. There were plans to perform extracranial/ intracranial bypass. However she had a seizure and ended up being intubated for status epilepticus 11/2016 She was found to have a new right frontal infarct area and she was started on Dilantin and Keppra and it was felt that she would not be a candidate for intervention. She has been intubated 9-10 days. Treating team was discussing with family trach/PEG. Family requested transfer back to [place] because they live locally here and wanted her closer to home. Patient remained under critical care medicine until 12/24/2016. Systolic dysfunction: Continue Entresto, edema lessening. Viridans strep bacteremia IV Rocephin per ID until 04/05/17, can be discharged if secured placement. Pt afebrile. INR level 2.3 Diet: Pt was resumed on continuous tube feeds yesterday. Residual was 0 this am. Moyamoya Disease Seizure Disorder - Tegretol 200 mg q12h - Continue Bromocriptine - Keppra 1000 mg twice a day. Hyperammonemia: - continue Lactulose 30 ml PO TID. - f/u AM ammonia level, -level is 22 Mixed Systolic and diastolic heart failure, acute - Continue Lasix 20mg daily - On Entresto - Monitor electrolytes and renal function. Hyponatremia: f/u bmp in AM, 135 Hypokalemia: Stable, f/u in AM - Monitor BMP -Stable Anasarca: stable w/ lasix daily Chronic Respiratory Failure Chronic obstructive pulmonary disease - Pulmonology following - Continue tracheostomy with supplemental oxygen to Maintain O2 sat greater than 92% - Levsin for increased secretions - Wean off O2, possible capping and decannulation Dysphagia Hypoalbuminemia - PEG placed. Continue TF bolus schedule. New onset DM - HgA1C 6.5 - Insulin S/S. monitor Accu-Cheks. Monitor for hypoglycemia. - ISS BID Sacral/Coccyx wound - Continue specialty bed. - Wound care following GI Prophylaxis: Pepcid. DVT prophylaxis: SCDs. Coumadin for afib. Case discussed with RN and Dr. Yuan. Discharge Planning CM notes reviewed. Difficulty finding placement facilities that would take pt with trach and peg. CM continuing to address placement. Trell Torres Jr. Apr 02, 2017 09:46
[2017-04-02] MEDS: carBAMazepine SUSP 200 MG/10 ML UDC PEG SCH ×2 (09:53→21:43)
[2017-04-02] MEDS: FERROUS SULFATE 300 MG /5ML UDC PEG SCH ×2 (09:53→21:45)
[2017-04-02] MEDS: LACTULOSE SYRUP 20 GM/30 ML CUP G-TUBE SCH ×3 (09:53→18:11)
[2017-04-02] MEDS: levETIRAcetam 500 MG/5 ML UDC NG SCH ×2 (09:54→21:44)
[2017-04-02] MEDS: SENNOSIDES SYRUP 8.8 MG/5 ML CUP G-TUBE SCH ×2 (09:54→21:44)
[2017-04-02] MEDS: ATORVASTATIN 40 MG TAB G-TUBE SCH (09:55)
[2017-04-02] MEDS: ASCORBIC ACID 500 MG TAB PEG SCH ×2 (09:55→21:45)
[2017-04-02] MEDS: SACUBITRIL/VALSARTAN 24 MG-26 MG TAB PEG SCH ×2 (09:55→21:45)
[2017-04-02] MEDS: FAMOTIDINE 20 MG TAB NG SCH ×2 (09:55→21:45)
[2017-04-02] MEDS: BROMOCRIPTINE MESYLATE 2.5 MG TAB OG-TUBE SCH ×2 (09:55→21:45)
[2017-04-02] MEDS: FUROSEMIDE 20 MG/2 ML VIAL IV PUSH SCH (09:55)
[2017-04-02] MEDS: SODIUM CHLORIDE 0.9% FLUSH 10 ML FLUSH IV FLUSH SCH ×2 (09:56→21:44)
[2017-04-02] MEDS: FOLIC ACID 1 MG TAB OG-TUBE SCH (09:56)
[2017-04-02] MEDS: cefTRIAXone INJ 2,000 MG in SODIUM CHLORIDE 0.9% INJ 100 ML IV SCH ×2 (18:00→18:12)
[2017-04-02] MEDS: WARFARIN SOD 7.5 MG TAB PO SCH (18:11)
--- NOTE | 2017-04-02 18:24 | HHI.PR ---
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 Mod amount of trach secretions Awake, no new complaint reported Objective Vital Signs Vital Signs Date Time Temp Pulse Resp B/P (MAP) Pulse Ox O2 Delivery O2 Flow Rate FiO2 04/02/17 12:00 98.8 81 20 118/59 (78) 100 04/02/17 09:00 78 04/02/17 08:30 78 04/02/17 08:17 100 T-piece 4.00 28 04/02/17 08:00 98.7 84 20 100 04/02/17 07:15 T-Piece 3.50 28 04/02/17 07:15 T-Piece 3.50 28 04/02/17 04:00 97.3 82 19 121/70 (87) 100 04/02/17 00:00 98.2 95 19 131/63 (85) 100 04/01/17 22:45 105/55 (72) 04/01/17 20:50 96 T-piece 5.00 28 04/01/17 20:50 96 T-piece 5.00 28 04/01/17 20:09 97 T-Piece 5.00 28 04/01/17 20:05 105 04/01/17 20:00 98.9 96 17 80/51 (61) 100 I/O 04/01/17 04/01/17 04/01/17 04/02/17 04/02/17 04/02/17 07:00 15:00 23:00 07:00 15:00 23:00 Intake Total 920 ml 920 ml Output Total 525 ml 1800 ml 600 ml Balance -525 ml 920 ml -880 ml -600 ml Intake Oral 920 ml 920 ml Output Urine Total 525 ml 1800 ml 600 ml # Bowel Movements 1 1 Result Diagram: 04/01/1770004/01/17700 Objective Remarks GENERAL: MBMN WF, on Trach collar SKIN: Warm and dry. HEAD: Normocephalic. EYES: No scleral icterus. No injection or drainage. NECK: Supple, trachea midline. No JVD or lymphadenopathy. has trach CARDIOVASCULAR: Regular rate and rhythm without murmurs, gallops, or rubs. RESPIRATORY: Breath sounds equal bilaterally. No accessory muscle use. GASTROINTESTINAL: Abdomen soft, non-tender, nondistended. has PEG MUSCULOSKELETAL: No cyanosis, or edema. BACK: Nontender without obvious deformity. No CVA tenderness. A/P Assessment and Plan RF, S/P Trach CVA Arango arango disease CAD COPD SZ disorder PLAN: Aerosol nebs Cont trach collar supplement 02, keep sat >90% DW RN at BS. TF Cont Levsin.prn Samuel per Vernon Sky MD Apr 02, 2017 18:24
[2017-04-03] VITALS (10 sets, daily range): BP systolic 107–138; BP diastolic 53–69; PULSE 70–100; RESP 20; TEMP 97.2–98.8; O2SAT 93–100
[2017-04-03] MEDS: METOPROLOL TARTRATE 25 MG TAB G-TUBE SCH ×4 (01:26→17:31)
[2017-04-03] MEDS: HYOSCYAMINE SOLN 0.125 MG/ML 15 ML BTL G-TUBE SCH ×4 (01:26→17:31)
[2017-04-03] MEDS: CHLORHEXIDINE GLUCONATE 2 % 1 PACK (2 CLOTHS) TOP SCH (04:00)
[2017-04-03] MEDS: FREE WATER G-TUBE SCH ×3 (05:05→21:31)
[2017-04-03] MEDS: CHLORHEXIDINE 0.12% (ORAL KIT) 15 ML CUP MT SCH ×2 (08:00→21:29)
[2017-04-03] MEDS: RESP: IPRATROPIUM 0.5 MG/2.5 ML NEB NEB SCH ×4 (08:34→20:07)
[2017-04-03] MEDS: SENNOSIDES SYRUP 8.8 MG/5 ML CUP G-TUBE SCH ×2 (09:00→21:31)
[2017-04-03] MEDS: INSULIN ASPART SUPPLEMENTAL SCALE SQ SCH ×2 (09:00→21:00)
[2017-04-03] MEDS: POTASSIUM CHLORIDE 20 MEQ PWD PACKET NG SCH (09:00)
[2017-04-03] MEDS: POVIDONE IODINE 10% OINT 30 GM TUBE TOPICAL SCH (09:00)
[2017-04-03] MEDS: FAMOTIDINE 20 MG TAB NG SCH ×2 (09:00→21:30)
[2017-04-03] MEDS: JUVEN POWDER 1 PACK G-TUBE SCH ×2 (09:00→21:29)
[2017-04-03] MEDS: SODIUM HYPOCHLORITE 0.25% 500 ML BTL TOPICAL SCH (09:00)
[2017-04-03] MEDS: LACTULOSE SYRUP 20 GM/30 ML CUP G-TUBE SCH ×3 (09:00→17:31)
--- NOTE | 2017-04-03 09:23 | HHI.PR ---
Subjective Remarks Follow-up visit bilateral frontal CVA, moyamoya disease, seizure disorder, COPD , hyponatremia. Recently diagnosed with Strep bacteremia Patient seen and examined today. Patient was sleeping and did not awaken or respond when her eye lids were opened. She remains non-verbal. Pt does not follow any commands. T-piece in place. VSS. Per RN (Amanda) pt with three episodes of diarrhea yesterday (one during the day and two over night) otherwise no acute issues over night or since start of shift.. Objective Vitals Vital Signs Date Time Temp Pulse Resp B/P (MAP) Pulse Ox O2 Delivery O2 Flow Rate FiO2 04/03/17 08:35 99 T-piece 4.00 28 04/03/17 06:00 97.4 100 20 138/69 (92) 93 04/03/17 00:00 97.2 84 20 113/55 (74) 100 04/02/17 22:45 100 T-piece 5.00 28 04/02/17 22:45 100 T-piece 5.00 28 04/02/17 20:00 75 04/02/17 20:00 98.5 82 20 115/62 (79) 95 04/02/17 19:15 T-Piece 3.50 28 04/02/17 16:00 97.8 77 20 109/59 (76) 97 04/02/17 12:00 98.8 81 20 118/59 (78) 100 I/O 04/02/17 04/02/17 04/02/17 04/03/17 04/03/17 04/03/17 07:00 15:00 23:00 07:00 15:00 23:00 Intake Total 903 ml Output Total 600 ml 850 ml 350 ml Balance -600 ml 53 ml -350 ml Intake Oral 0 ml IV Total 100 ml Tube Feeding 803 ml Output Urine Total 600 ml 850 ml 350 ml # Bowel Movements 1 1 2 Result Diagram: 04/01/1770004/01/17700 Objective Remarks GENERAL: Pt encountered laying a bed, T-piece in place, eyes closed throughout, in NAD. SKIN: Warm and dry. No pitting edema noted along forearms and feet this morning. HEAD: Normocephalic. EYES: No scleral icterus. No injection or drainage. NECK: Supple, t-piece in place. CARDIOVASCULAR: Regular rate (83 bpm) and rhythm without murmurs, gallops, or rubs. RESPIRATORY: Breath sounds equal bilaterally, without rhonchi or wheezes. 100% oxygenation per bedside monitor. GASTROINTESTINAL: Abdomen soft, non-tender non-distended. G-tube in place MUSCULOSKELETAL: No cyanosis. Bilateral SCD's in place as were bilateral off loading boots. Neurological: Pt not responding to commands. Procedures PEG 11/24/2016 Percutaneous tracheostomy. 11/18/2016 Moderate encephalopathy with suggestion of left temporal region cortical irritability. No active seizures. Clinical correlation. Echocardiogram Severe dilated left ventricle. Wall thickness is normal. The left ventricular systolic function is moderately reduced with an estimated ejection fraction in the range of 35-40%. Doppler parameters are consistent with a restrictive left ventricular filling pattern indicative of decreased left ventricular diastolic compliance and increase left atrial pressure (grade 3 diastolic dysfunction). There is severe tricuspid regurgitation. There is severe pulmonary hypertension present ( > 70 mmHg). Severe mitral valve regurgitation. Medications and IVs Current Medications Medications (Trade) Dose Ordered Sig/Ora Route Start Time Stop Time Status Last Admin (Peridex 0.12% Liq) 15 ml BID@08,20 MT 11/18/16 08:00 04/02/17 21:46 (NS Flush) 2 ml BID IV FLUSH 11/18/16 09:00 04/02/17 21:44 (Morphine Inj) 2 mg Q2H PRN IV 11/18/16 03:30 03/27/17 10:13 (Zofran Inj) 4 mg Q6H PRN IV 11/18/16 03:30 11/26/16 03:20 Miscellaneous Information 1 Q361D XX 11/18/16 03:30 11/18/16 03:30 (Chlorhexidine 2% Cloth) 3 pack Taper DAILY@04 TOP 11/18/16 04:00 11/14/17 03:59 03/28/17 04:03 (Chlorhexidine 2% Cloth) 3 pack UNSCH PRN TOP 11/18/16 03:30 (Parlodel) 2.5 mg Q12HR OG-TUBE 11/18/16 09:00 04/02/17 21:45 (Folate) 1 mg DAILY OG-TUBE 11/18/16 09:00 04/02/17 09:56 (Dulcolax Supp) 10 mg DAILY PRN RECTAL 5/9/17 15:45 (Pepcid) 20 mg BID NG 12/21/16 21:00 04/02/17 21:45 (TEGretol LIQ) 200 mg Q12HR PEG 01/06/17 09:00 04/02/17 21:43 (Corby Powder) 1 pack BID G-TUBE 01/13/17 09:00 04/02/17 21:45 (Ferrous Sulfate Liq) 300 mg BID PEG 01/26/17 21:00 04/02/17 21:45 (Vitamin C) 500 mg BID PEG 01/26/17 21:00 04/02/17 21:45 ([place] 5-325 Mg) 1 tab Q4H PRN G-TUBE 02/01/17 11:30 03/25/17 16:36 (Tylenol) 650 mg Q6H PRN G-TUBE 02/01/17 09:30 03/26/17 02:43 (Lipitor) 40 mg DAILY G-TUBE 02/01/17 09:00 04/02/17 09:55 (Senna Liq) 8.8 mg BID G-TUBE 02/01/17 09:00 04/02/17 21:44 (D50w (Vial) Inj) 25 ml UNSCH PRN IV PUSH 02/01/17 09:15 (Glucagon Inj) 1 mg UNSCH PRN OTHER 02/01/17 09:15 Pharmacy Profile Note 0 ml @ 0 mls/hr UNSCH OTHER 02/01/17 09:15 (Dakin'S 0.25% Soln) USE DAILY WITH DRESS... DAILY TOPICAL 02/12/17 18:00 04/01/17 09:00 (Betadine 10% Oint) 1 applic DAILY TOPICAL 02/15/17 09:00 04/02/17 09:00 (Lactulose Liq) 30 ml TID G-TUBE 02/21/17 13:00 04/02/17 18:11 (Zaroxolyn) 5 mg DAILY PEG 03/09/17 09:00 Future Hold 03/13/17 10:04 (Entresto 24-26 Mg) 1 tab BID PEG 03/08/17 21:00 04/02/17 21:45 (Free Water) VOLUME OF WATER: ( 300 ) ML Q8HR G-TUBE 03/09/17 14:00 04/03/17 05:05 (Levsin Liq) 0.125 mg Q6H G-TUBE 03/10/17 18:00 04/03/17 05:06 (Lasix Inj) 20 mg DAILY IV PUSH 03/16/17 11:30 04/02/17 09:55 (KCl Powder) 20 meq DAILY NG 03/17/17 09:00 04/02/17 09:00 (NovoLOG SUPPLEMENTAL SCALE) 1 BID SQ 03/20/17 21:00 03/22/17 22:04 (Albuterol Neb) 0.63 mg Q4HR NEB PRN NEB 03/21/17 09:15 (Atrovent Neb) 0.5 mg QID NEB NEB 03/21/17 12:00 04/03/17 08:34 (Keppra Liq) 1,000 mg Q12HR NG 03/21/17 21:00 04/02/17 21:44 Ceftriaxone Sodium 2000 mg/ Sodium Chloride 100 ml @ 200 mls/hr Q24H IV 03/24/17 18:00 04/05/17 17:59 04/02/17 18:12 (Lopressor) 50 mg Q6HR G-TUBE 03/27/17 18:00 04/03/17 05:06 (Coumadin) 7.5 mg DAILY@1600 PO 03/28/17 16:00 04/02/17 18:11 Urinary Catheter: Yes Assessment to: Continue Brown insert reason: Prolonged Immobilization 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 Status: Acute (2) Seizure ICD Code: R56.9 - Unspecified convulsions Status: Acute (3) CVA (cerebral vascular accident) ICD Code: I63.9 - Cerebral infarction, unspecified Status: Acute (4) Respiratory failure, acute ICD Code: J96.00 - Acute respiratory failure, unspecified whether with hypoxia or hypercapnia Status: Acute (5) COPD (chronic obstructive pulmonary disease) ICD Code: J44.9 - Chronic obstructive pulmonary disease, unspecified Status: Chronic (6) Acute hypernatremia ICD Code: E87.0 - Hyperosmolality and hypernatremia Status: Resolved (7) Microcytic anemia ICD Code: D50.9 - Iron deficiency anemia, unspecified Assessment and Plan 66-year-old female with past medical history of CVA for which she at one point was on warfarin but had been discontinued. She was was admitted to [facility] emergency department 11/04/16 with difficulty getting her thoughts together. She was found to have multifocal ischemic infarcts in left frontal and parietal regions, right frontal lobe and history of moyamoya disease. She was initially awake and following commands with weakness of RLE and some aphasia. She was transferred to [facility] where he had an cerebral angiogram consistent with moyamoya. There were plans to perform extracranial/ intracranial bypass. However she had a seizure and ended up being intubated for status epilepticus 11/2016 She was found to have a new right frontal infarct area and she was started on Dilantin and Keppra and it was felt that she would not be a candidate for intervention. She has been intubated 9-10 days. Treating team was discussing with family trach/PEG. Family requested transfer back to [place] because they live locally here and wanted her closer to home. Patient remained under critical care medicine until 12/24/2016. Viridans strep bacteremia IV Rocephin per ID until 04/05/17, Pt afebrile. VSS WBC's WNL on 04/01. Continue to monitor for infection. INR level on 04/02 was, 2.3 today's level not yet resulted Diet: Continuous feeding, 60 ml/ hr no issues reported. Diarrhea: Three episodes reported within past 24 hours. Will hold one dose of lactulose. Monitor. Diabetes: blood glucose varied from 119- 140 over past 24 hours.No insulin administered. Moyamoya Disease Seizure Disorder - Tegretol 200 mg q12h - Continue Bromocriptine - Keppra 1000 mg twice a day. Hyperammonemia: - continue Lactulose 30 ml PO TID. - f/u AM ammonia level, -level is 22 Mixed Systolic and diastolic heart failure, acute - Continue Lasix 20mg daily - On Entresto - Monitor electrolytes and renal function. Hyponatremia: f/u bmp in AM, 135 Hypokalemia: Stable, f/u in AM - Monitor BMP -Stable Anasarca: stable w/ lasix daily Chronic Respiratory Failure Chronic obstructive pulmonary disease - Pulmonology following - Continue tracheostomy with supplemental oxygen to Maintain O2 sat greater than 92% - Levsin for increased secretions - Wean off O2, possible capping and decannulation Dysphagia Hypoalbuminemia - PEG placed. Continue TF bolus schedule. New onset DM - HgA1C 6.5 - Insulin S/S. monitor Accu-Cheks. Monitor for hypoglycemia. - ISS BID Sacral/Coccyx wound - Continue specialty bed. - Wound care following GI Prophylaxis: Pepcid. DVT prophylaxis: SCDs. Coumadin for afib. Case discussed with RN and Dr. Packer. Discharge Planning CM notes reviewed. Difficulty finding placement facilities that would take pt with trach and peg. CM continuing to address placement. Trell Torres Jr. Apr 03, 2017 09:22
[2017-04-03] MEDS: carBAMazepine SUSP 200 MG/10 ML UDC PEG SCH ×2 (10:00→21:30)
[2017-04-03] MEDS: levETIRAcetam 500 MG/5 ML UDC NG SCH ×2 (10:01→21:30)
[2017-04-03] MEDS: FERROUS SULFATE 300 MG /5ML UDC PEG SCH ×2 (10:01→21:30)
[2017-04-03] MEDS: FUROSEMIDE 20 MG/2 ML VIAL IV PUSH SCH (10:02)
[2017-04-03] MEDS: FOLIC ACID 1 MG TAB OG-TUBE SCH (10:02)
[2017-04-03] MEDS: SACUBITRIL/VALSARTAN 24 MG-26 MG TAB PEG SCH ×2 (10:02→21:30)
[2017-04-03] MEDS: ATORVASTATIN 40 MG TAB G-TUBE SCH (10:02)
[2017-04-03] MEDS: ASCORBIC ACID 500 MG TAB PEG SCH ×2 (10:02→21:30)
[2017-04-03] MEDS: BROMOCRIPTINE MESYLATE 2.5 MG TAB OG-TUBE SCH ×2 (10:02→21:30)
[2017-04-03] MEDS: SODIUM CHLORIDE 0.9% FLUSH 10 ML FLUSH IV FLUSH SCH ×2 (10:03→21:00)
[2017-04-03 10:45] LABS: INTERNATIONAL NORMALIZED RATIO 1.8 RATIO; PROTHROMBIN TIME - PATIENT 20.6 SEC (9.8-11.6)
--- NOTE | 2017-04-03 15:49 | HHI.PR ---
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 Mod amount of trach secretions Objective Vital Signs Vital Signs Date Time Temp Pulse Resp B/P (MAP) Pulse Ox O2 Delivery O2 Flow Rate FiO2 04/03/17 12:00 98.7 81 20 107/53 (71) 100 04/03/17 08:35 99 T-piece 4.00 28 04/03/17 08:20 88 04/03/17 08:00 98.3 81 20 115/58 (77) 100 04/03/17 07:15 T-Piece 4.00 28 04/03/17 06:00 97.4 100 20 138/69 (92) 93 04/03/17 00:00 97.2 84 20 113/55 (74) 100 04/02/17 22:45 100 T-piece 5.00 28 04/02/17 22:45 100 T-piece 5.00 28 04/02/17 20:00 75 04/02/17 20:00 98.5 82 20 115/62 (79) 95 04/02/17 19:15 T-Piece 3.50 28 04/02/17 16:00 97.8 77 20 109/59 (76) 97 I/O 04/02/17 04/02/17 04/02/17 04/03/17 04/03/17 04/03/17 07:00 15:00 23:00 07:00 15:00 23:00 Intake Total 903 ml Output Total 600 ml 850 ml 350 ml Balance -600 ml 53 ml -350 ml Intake Oral 0 ml IV Total 100 ml Tube Feeding 803 ml Output Urine Total 600 ml 850 ml 350 ml # Bowel Movements 1 1 2 Result Diagram: 04/01/1770004/01/17700 Objective Remarks GENERAL: MBMN WF, on Trach collar SKIN: Warm and dry. HEAD: Normocephalic. EYES: No scleral icterus. No injection or drainage. NECK: Supple, trachea midline. No JVD or lymphadenopathy. has trach CARDIOVASCULAR: Regular rate and rhythm without murmurs, gallops, or rubs. RESPIRATORY: Breath sounds equal bilaterally. No accessory muscle use. GASTROINTESTINAL: Abdomen soft, non-tender, nondistended. has PEG MUSCULOSKELETAL: No cyanosis, or edema. BACK: Nontender without obvious deformity. No CVA tenderness. A/P Assessment and Plan RF, S/P Trach CVA Arango arango disease CAD COPD SZ disorder PLAN: Aerosol nebs Cont trach collar supplement 02, keep sat >90%. TF Cont Levsin.prn Samuel per Vernon Sky MD Apr 03, 2017 15:49
[2017-04-03] MEDS ORDERED: WARFARIN SOD 1 MG TAB PO ONE (16:00)
[2017-04-03] MEDS: WARFARIN SOD 7.5 MG TAB PO SCH (17:30)
[2017-04-03] MEDS: cefTRIAXone INJ 2,000 MG in SODIUM CHLORIDE 0.9% INJ 100 ML IV SCH (17:31)
[2017-04-04] VITALS (10 sets, daily range): BP systolic 105–122; BP diastolic 53–65; PULSE 71–94; RESP 18–22; TEMP 96.2–98.5; O2SAT 98–100
[2017-04-04] MEDS: METOPROLOL TARTRATE 25 MG TAB G-TUBE SCH ×5 (00:46→23:24)
[2017-04-04] MEDS: CHLORHEXIDINE GLUCONATE 2 % 1 PACK (2 CLOTHS) TOP SCH (04:00)
[2017-04-04] MEDS: FREE WATER G-TUBE SCH ×3 (05:02→22:25)
[2017-04-04] MEDS: HYOSCYAMINE SOLN 0.125 MG/ML 15 ML BTL G-TUBE SCH ×5 (05:03→23:19)
[2017-04-04 06:20] LABS: INTERNATIONAL NORMALIZED RATIO 1.8 RATIO; PROTHROMBIN TIME - PATIENT 20.6 SEC (9.8-11.6)
[2017-04-04] MEDS ORDERED: ENOXAPARIN SODIUM 40 MG/0.4 ML SYRINGE SQ ONE (08:00)
[2017-04-04] MEDS: FAMOTIDINE 20 MG TAB NG SCH ×2 (08:14→22:24)
[2017-04-04] MEDS: ATORVASTATIN 40 MG TAB G-TUBE SCH (08:14)
[2017-04-04] MEDS: FERROUS SULFATE 300 MG /5ML UDC PEG SCH ×2 (08:14→22:24)
[2017-04-04] MEDS: carBAMazepine SUSP 200 MG/10 ML UDC PEG SCH ×2 (08:14→22:25)
[2017-04-04] MEDS: LACTULOSE SYRUP 20 GM/30 ML CUP G-TUBE SCH ×3 (08:14→17:36)
[2017-04-04] MEDS: FOLIC ACID 1 MG TAB OG-TUBE SCH (08:14)
[2017-04-04] MEDS: ASCORBIC ACID 500 MG TAB PEG SCH ×2 (08:14→22:25)
[2017-04-04] MEDS: SACUBITRIL/VALSARTAN 24 MG-26 MG TAB PEG SCH ×2 (08:14→21:00)
[2017-04-04] MEDS: FUROSEMIDE 20 MG/2 ML VIAL IV PUSH SCH (08:15)
[2017-04-04] MEDS: SENNOSIDES SYRUP 8.8 MG/5 ML CUP G-TUBE SCH ×2 (08:15→22:23)
[2017-04-04] MEDS: BROMOCRIPTINE MESYLATE 2.5 MG TAB OG-TUBE SCH ×2 (08:16→22:24)
[2017-04-04] MEDS: levETIRAcetam 500 MG/5 ML UDC NG SCH ×2 (08:16→22:24)
[2017-04-04] MEDS: POTASSIUM CHLORIDE 20 MEQ PWD PACKET NG SCH (09:00)
[2017-04-04] MEDS: INSULIN ASPART SUPPLEMENTAL SCALE SQ SCH ×2 (09:00→21:00)
[2017-04-04] MEDS: JUVEN POWDER 1 PACK G-TUBE SCH ×2 (09:00→22:22)
[2017-04-04] MEDS: RESP: IPRATROPIUM 0.5 MG/2.5 ML NEB NEB SCH ×4 (09:53→20:15)
--- NOTE | 2017-04-04 10:55 | HHI.PR ---
Subjective Remarks Follow-up visit bilateral frontal CVA, moyamoya disease, seizure disorder, COPD , hyponatremia. Recently diagnosed with Strep bacteremia Patient seen and examined today. Patient was awake. She remains non-verbal. Pt does not follow any commands. T-piece in place. VSS. Per RN ([facility]) no acute issues over night or since start of shift. Objective Vitals Vital Signs Date Time Temp Pulse Resp B/P (MAP) Pulse Ox O2 Delivery O2 Flow Rate FiO2 04/04/17 09:53 98 Trach Collar 5.00 28 04/04/17 09:53 98 Trach Collar 5.00 28 04/04/17 08:07 96.2 89 22 113/59 (77) 98 04/04/17 04:00 97.5 76 18 122/65 (84) 100 04/04/17 03:47 100 T-Piece 4.00 04/04/17 00:00 100 T-Piece 4.00 04/04/17 00:00 98.1 86 20 120/63 (82) 99 04/03/17 20:15 100 T-piece 6.00 28 04/03/17 20:15 100 T-piece 6.00 28 04/03/17 20:02 70 04/03/17 20:00 98.1 82 20 109/67 (81) 99 04/03/17 20:00 100 T-Piece 4.00 04/03/17 16:00 98.8 95 20 118/59 (78) 95 04/03/17 12:00 98.7 81 20 107/53 (71) 100 I/O 04/03/17 04/03/17 04/03/17 04/04/17 04/04/17 04/04/17 07:00 15:00 23:00 07:00 15:00 23:00 Intake Total 100 ml 0 ml Output Total 350 ml 1800 ml 700 ml Balance -350 ml -1700 ml -700 ml Intake Oral 0 ml 0 ml IV Total 100 ml Output Urine Total 350 ml 1800 ml 700 ml # Bowel Movements 2 1 Result Diagram: 04/01/1770004/01/17700 Objective Remarks GENERAL: Pt encountered laying a bed, T-piece in place, eyes open throughout, in NAD. SKIN: Warm and dry. No pitting edema noted along forearms and feet this morning. HEAD: Normocephalic. EYES: No scleral icterus. No injection or drainage. NECK: Supple, t-piece in place. CARDIOVASCULAR: Regular rate (95 bpm) and rhythm without murmurs, gallops, or rubs. RESPIRATORY: Breath sounds equal bilaterally, without rhonchi or wheezes. 100% oxygenation per bedside monitor. GASTROINTESTINAL: Abdomen soft, non-tender non-distended. G-tube in place MUSCULOSKELETAL: No cyanosis. Bilateral SCD's in place as were bilateral off loading boots. Neurological: Pt not responding to commands. Procedures PEG 11/24/2016 Percutaneous tracheostomy. 11/18/2016 Moderate encephalopathy with suggestion of left temporal region cortical irritability. No active seizures. Clinical correlation. Echocardiogram Severe dilated left ventricle. Wall thickness is normal. The left ventricular systolic function is moderately reduced with an estimated ejection fraction in the range of 35-40%. Doppler parameters are consistent with a restrictive left ventricular filling pattern indicative of decreased left ventricular diastolic compliance and increase left atrial pressure (grade 3 diastolic dysfunction). There is severe tricuspid regurgitation. There is severe pulmonary hypertension present ( > 70 mmHg). Severe mitral valve regurgitation. Medications and IVs Current Medications Medications (Trade) Dose Ordered Sig/Ora Route Start Time Stop Time Status Last Admin (Peridex 0.12% Liq) 15 ml BID@08,20 MT 11/18/16 08:00 04/03/17 21:29 (NS Flush) 2 ml BID IV FLUSH 11/18/16 09:00 04/03/17 21:00 (Morphine Inj) 2 mg Q2H PRN IV 11/18/16 03:30 03/27/17 10:13 (Zofran Inj) 4 mg Q6H PRN IV 11/18/16 03:30 11/26/16 03:20 Miscellaneous Information 1 Q361D XX 11/18/16 03:30 11/18/16 03:30 (Chlorhexidine 2% Cloth) 3 pack Taper DAILY@04 TOP 11/18/16 04:00 11/14/17 03:59 03/28/17 04:03 (Chlorhexidine 2% Cloth) 3 pack UNSCH PRN TOP 11/18/16 03:30 (Parlodel) 2.5 mg Q12HR OG-TUBE 11/18/16 09:00 04/04/17 08:16 (Folate) 1 mg DAILY OG-TUBE 11/18/16 09:00 04/04/17 08:14 (Dulcolax Supp) 10 mg DAILY PRN RECTAL 12/14/16 15:45 (Pepcid) 20 mg BID NG 12/21/16 21:00 04/04/17 08:14 (TEGretol LIQ) 200 mg Q12HR PEG 01/06/17 09:00 04/04/17 08:14 (Corby Powder) 1 pack BID G-TUBE 01/13/17 09:00 04/03/17 21:29 (Ferrous Sulfate Liq) 300 mg BID PEG 01/26/17 21:00 04/04/17 08:14 (Vitamin C) 500 mg BID PEG 01/26/17 21:00 04/04/17 08:14 ([place] 5-325 Mg) 1 tab Q4H PRN G-TUBE 02/01/17 11:30 03/25/17 16:36 (Tylenol) 650 mg Q6H PRN G-TUBE 02/01/17 09:30 03/26/17 02:43 (Lipitor) 40 mg DAILY G-TUBE 02/01/17 09:00 04/04/17 08:14 (Senna Liq) 8.8 mg BID G-TUBE 02/01/17 09:00 04/04/17 08:15 (D50w (Vial) Inj) 25 ml UNSCH PRN IV PUSH 02/01/17 09:15 (Glucagon Inj) 1 mg UNSCH PRN OTHER 02/01/17 09:15 Pharmacy Profile Note 0 ml @ 0 mls/hr UNSCH OTHER 02/01/17 09:15 (Dakin'S 0.25% Soln) USE DAILY WITH DRESS... DAILY TOPICAL 02/12/17 18:00 04/01/17 09:00 (Betadine 10% Oint) 1 applic DAILY TOPICAL 02/15/17 09:00 04/03/17 09:00 (Lactulose Liq) 30 ml TID G-TUBE 02/21/17 13:00 04/04/17 08:14 (Zaroxolyn) 5 mg DAILY PEG 03/09/17 09:00 Future Hold 03/13/17 10:04 (Entresto 24-26 Mg) 1 tab BID PEG 03/08/17 21:00 04/04/17 08:14 (Free Water) VOLUME OF WATER: ( 300 ) ML Q8HR G-TUBE 03/09/17 14:00 04/04/17 05:02 (Levsin Liq) 0.125 mg Q6H G-TUBE 03/10/17 18:00 04/04/17 05:03 (Lasix Inj) 20 mg DAILY IV PUSH 03/16/17 11:30 04/04/17 08:15 (KCl Powder) 20 meq DAILY NG 03/17/17 09:00 04/03/17 09:00 (NovoLOG SUPPLEMENTAL SCALE) 1 BID SQ 03/20/17 21:00 03/22/17 22:04 (Albuterol Neb) 0.63 mg Q4HR NEB PRN NEB 03/21/17 09:15 (Atrovent Neb) 0.5 mg QID NEB NEB 03/21/17 12:00 04/04/17 09:53 (Keppra Liq) 1,000 mg Q12HR NG 03/21/17 21:00 04/04/17 08:16 Ceftriaxone Sodium 2000 mg/ Sodium Chloride 100 ml @ 200 mls/hr Q24H IV 03/24/17 18:00 04/05/17 17:59 04/03/17 17:31 (Lopressor) 50 mg Q6HR G-TUBE 03/27/17 18:00 04/04/17 05:03 (Coumadin) 7.5 mg DAILY@1600 PO 03/28/17 16:00 04/03/17 17:30 (Coumadin) 1 mg ONCE ONCE PO 04/04/17 16:00 04/04/17 16:01 Urinary Catheter: Yes Assessment to: Continue Brown insert reason: Prolonged Immobilization 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 Status: Acute (2) Seizure ICD Code: R56.9 - Unspecified convulsions Status: Acute (3) CVA (cerebral vascular accident) ICD Code: I63.9 - Cerebral infarction, unspecified Status: Acute (4) Respiratory failure, acute ICD Code: J96.00 - Acute respiratory failure, unspecified whether with hypoxia or hypercapnia Status: Acute (5) COPD (chronic obstructive pulmonary disease) ICD Code: J44.9 - Chronic obstructive pulmonary disease, unspecified Status: Chronic (6) Acute hypernatremia ICD Code: E87.0 - Hyperosmolality and hypernatremia Status: Resolved (7) Microcytic anemia ICD Code: D50.9 - Iron deficiency anemia, unspecified Assessment and Plan 66-year-old female with past medical history of CVA for which she at one point was on warfarin but had been discontinued. She was was admitted to [facility] emergency department 11/04/16 with difficulty getting her thoughts together. She was found to have multifocal ischemic infarcts in left frontal and parietal regions, right frontal lobe and history of moyamoya disease. She was initially awake and following commands with weakness of RLE and some aphasia. She was transferred to [facility] where he had an cerebral angiogram consistent with moyamoya. There were plans to perform extracranial/ intracranial bypass. However she had a seizure and ended up being intubated for status epilepticus 11/2016 She was found to have a new right frontal infarct area and she was started on Dilantin and Keppra and it was felt that she would not be a candidate for intervention. She has been intubated 9-10 days. Treating team was discussing with family trach/PEG. Family requested transfer back to [place] because they live locally here and wanted her closer to home. Patient remained under critical care medicine until 12/24/2016. Viridans strep bacteremia IV Rocephin per ID until 04/05/17, Pt afebrile. VSS. Continue to monitor for infection. INR level 1.8 Supplemented with Lovenox 40 mg. Will consult pharmacy for Coumadin management. Discussed with Dr. Packer who has ordered Coumadin 1 mg in addition to pt's regularly scheduled dose this afternoon. Diet: Continuous feeding, 60 ml/ hr no issues reported. Diabetes: stable Moyamoya Disease Seizure Disorder - Tegretol 200 mg q12h - Continue Bromocriptine - Keppra 1000 mg twice a day. Hyperammonemia: - continue Lactulose 30 ml PO TID. - f/u AM ammonia level, -level is 22 Mixed Systolic and diastolic heart failure, acute - Continue Lasix 20mg daily - On Entresto - Monitor electrolytes and renal function. Hyponatremia: f/u bmp in AM, 135 Hypokalemia: Stable, f/u in AM - Monitor BMP -Stable Anasarca: stable w/ lasix daily Chronic Respiratory Failure Chronic obstructive pulmonary disease - Pulmonology following - Continue tracheostomy with supplemental oxygen to Maintain O2 sat greater than 92% - Levsin for increased secretions - Wean off O2, possible capping and decannulation Dysphagia Hypoalbuminemia - PEG placed. TF continuous schedule 60 per hour. New onset DM - HgA1C 6.5 - Insulin S/S. monitor Accu-Cheks. Monitor for hypoglycemia. - ISS BID Sacral/Coccyx wound - Continue specialty bed. - Wound care following GI Prophylaxis: Pepcid. DVT prophylaxis: SCDs. Coumadin for afib. Case discussed with RN and Dr. Packer. Discharge Planning CM notes reviewed. Difficulty finding placement facilities that would take pt with trach and peg. CM continuing to address placement. Trell Torres Jr. Apr 04, 2017 10:55
[2017-04-04] MEDS ORDERED: WARFARIN SOD 1 MG TAB PO ONE (16:00)
[2017-04-04] MEDS: cefTRIAXone INJ 2,000 MG in SODIUM CHLORIDE 0.9% INJ 100 ML IV SCH (17:35)
[2017-04-04] MEDS: WARFARIN SOD 7.5 MG TAB PO SCH (17:36)
--- NOTE | 2017-04-04 18:39 | PD.CARD.PN ---
Subjective Subjective Remarks Unresponsive, no change Objective Medications Current Medications Medications (Trade) Dose Ordered Sig/Ora Route Start Time Stop Time Status Last Admin (Peridex 0.12% Liq) 15 ml BID@08,20 MT 11/18/16 08:00 04/03/17 21:29 (NS Flush) 2 ml BID IV FLUSH 11/18/16 09:00 04/03/17 21:00 (Morphine Inj) 2 mg Q2H PRN IV 11/18/16 03:30 03/27/17 10:13 (Zofran Inj) 4 mg Q6H PRN IV 11/18/16 03:30 11/26/16 03:20 Miscellaneous Information 1 Q361D XX 11/18/16 03:30 11/18/16 03:30 (Chlorhexidine 2% Cloth) 3 pack Taper DAILY@04 TOP 11/18/16 04:00 11/14/17 03:59 03/28/17 04:03 (Chlorhexidine 2% Cloth) 3 pack UNSCH PRN TOP 11/18/16 03:30 (Parlodel) 2.5 mg Q12HR OG-TUBE 11/18/16 09:00 04/04/17 08:16 (Folate) 1 mg DAILY OG-TUBE 11/18/16 09:00 04/04/17 08:14 (Dulcolax Supp) 10 mg DAILY PRN RECTAL 12/14/16 15:45 (Pepcid) 20 mg BID NG 12/21/16 21:00 04/04/17 08:14 (TEGretol LIQ) 200 mg Q12HR PEG 01/06/17 09:00 04/04/17 08:14 (Corby Powder) 1 pack BID G-TUBE 01/13/17 09:00 04/04/17 09:00 (Ferrous Sulfate Liq) 300 mg BID PEG 01/26/17 21:00 04/04/17 08:14 (Vitamin C) 500 mg BID PEG 01/26/17 21:00 04/04/17 08:14 ([place] 5-325 Mg) 1 tab Q4H PRN G-TUBE 02/01/17 11:30 03/25/17 16:36 (Tylenol) 650 mg Q6H PRN G-TUBE 02/01/17 09:30 03/26/17 02:43 (Lipitor) 40 mg DAILY G-TUBE 02/01/17 09:00 04/04/17 08:14 (Senna Liq) 8.8 mg BID G-TUBE 02/01/17 09:00 04/04/17 08:15 (D50w (Vial) Inj) 25 ml UNSCH PRN IV PUSH 02/01/17 09:15 (Glucagon Inj) 1 mg UNSCH PRN OTHER 02/01/17 09:15 Pharmacy Profile Note 0 ml @ 0 mls/hr UNSCH OTHER 02/01/17 09:15 (Dakin'S 0.25% Soln) USE DAILY WITH DRESS... DAILY TOPICAL 02/12/17 18:00 04/01/17 09:00 (Betadine 10% Oint) 1 applic DAILY TOPICAL 02/15/17 09:00 04/03/17 09:00 (Lactulose Liq) 30 ml TID G-TUBE 02/21/17 13:00 04/04/17 17:36 (Zaroxolyn) 5 mg DAILY PEG 03/09/17 09:00 Future Hold 03/13/17 10:04 (Entresto 24-26 Mg) 1 tab BID PEG 03/08/17 21:00 04/04/17 08:14 (Free Water) VOLUME OF WATER: ( 300 ) ML Q8HR G-TUBE 03/09/17 14:00 04/04/17 14:00 (Levsin Liq) 0.125 mg Q6H G-TUBE 03/10/17 18:00 04/01/17 18:00 (Lasix Inj) 20 mg DAILY IV PUSH 03/16/17 11:30 04/04/17 08:15 (KCl Powder) 20 meq DAILY NG 03/17/17 09:00 04/04/17 09:00 (NovoLOG SUPPLEMENTAL SCALE) 1 BID SQ 03/20/17 21:00 03/22/17 22:04 (Albuterol Neb) 0.63 mg Q4HR NEB PRN NEB 03/21/17 09:15 (Atrovent Neb) 0.5 mg QID NEB NEB 03/21/17 12:00 04/04/17 15:37 (Keppra Liq) 1,000 mg Q12HR NG 03/21/17 21:00 04/04/17 08:16 Ceftriaxone Sodium 2000 mg/ Sodium Chloride 100 ml @ 200 mls/hr Q24H IV 03/24/17 18:00 04/05/17 17:59 04/04/17 17:35 (Lopressor) 50 mg Q6HR G-TUBE 03/27/17 18:00 04/04/17 17:35 (Coumadin) 7.5 mg DAILY@1600 PO 03/28/17 16:00 04/04/17 17:36 Pharmacy Profile Note 0 ml @ 0 mls/hr UNSCH OTHER 04/04/17 11:00 Vital Signs / I&O Vital Signs Date Time Temp Pulse Resp B/P (MAP) Pulse Ox O2 Delivery O2 Flow Rate FiO2 04/04/17 12:07 98.5 94 22 111/53 (72) 99 04/04/17 09:53 98 Trach Collar 5.00 28 04/04/17 09:53 98 Trach Collar 5.00 28 04/04/17 08:07 96.2 89 22 113/59 (77) 98 04/04/17 04:00 97.5 76 18 122/65 (84) 100 04/04/17 03:47 100 T-Piece 4.00 28 04/04/17 00:00 100 T-Piece 4.00 28 04/04/17 00:00 98.1 86 20 120/63 (82) 99 04/03/17 20:15 100 T-piece 6.00 28 04/03/17 20:15 100 T-piece 6.00 28 04/03/17 20:02 70 04/03/17 20:00 98.1 82 20 109/67 (81) 99 04/03/17 20:00 100 T-Piece 4.00 28 I/O 04/03/17 04/03/17 04/03/17 04/04/17 04/04/17 04/04/17 07:00 15:00 23:00 07:00 15:00 23:00 Intake Total 100 ml 0 ml Output Total 350 ml 1800 ml 700 ml Balance -350 ml -1700 ml -700 ml Intake Oral 0 ml 0 ml IV Total 100 ml Output Urine Total 350 ml 1800 ml 700 ml # Bowel Movements 2 1 Physical Exam GENERAL: In NAD, poorly responsive SKIN: Warm and dry. HEAD: Normocephalic. EYES: No scleral icterus. No injection or drainage. NECK: Supple, trachea midline. No JVD or lymphadenopathy. Trach in place CARDIOVASCULAR: Regular rate and rhythm without murmurs, gallops, or rubs. RESPIRATORY: Breath sounds equal bilaterally. No accessory muscle use. GASTROINTESTINAL: Abdomen soft, non-tender, nondistended. MUSCULOSKELETAL: No cyanosis, or edema. Laboratory Laboratory Tests Test 04/04/17 05:50 Prothrombin Time 20.6 SEC Prothromb Time International Ratio 1.8 RATIO Imaging Last Impressions Chest X-Ray 03/20/17 0000 Signed Impressions: Service Date/Time: Monday, March 20, 2017 11:37 - CONCLUSION: Stable appearance with no acute cardiopulmonary disease. Lenny Kerns MD Abdomen X-Ray 02/11/17 0000 Signed Impressions: Service Date/Time: Saturday, February 11, 2017 17:52 - CONCLUSION: Minimal colonic distention. Kenneth Frost MD FACR Catheter Change 02/10/17 0000 Signed Impressions: Service Date/Time: February 13:47 - CONCLUSION: Uncomplicated fluoroscopic guided gastrostomy tube replacement. Positioning confirmed. The tube can be used immediately. Nghia Pacheco MD Lower Extremity Ultrasound 02/01/17 0000 Signed Impressions: Service Date/Time: Wednesday, February 01, 2017 13:23 - CONCLUSION: Normal examination. 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 Sami Mccarthy MD Assessment and Plan Problem List: (1) Narrow complex tachycardia ICD Codes: I47.1 - Supraventricular tachycardia Status: Acute (2) CVA (cerebral vascular accident) ICD Codes: I63.9 - Cerebral infarction, unspecified Status: Acute (3) Seizure ICD Codes: R56.9 - Unspecified convulsions Status: Acute (4) Moyamoya disease ICD Codes: I67.5 - Moyamoya disease Status: Acute (5) Encephalopathy ICD Codes: G93.40 - Encephalopathy, unspecified Status: Acute (6) Accelerated essential hypertension ICD Codes: I10 - Accelerated essential hypertension Status: Acute (7) Respiratory failure, acute ICD Codes: J96.00 - Acute respiratory failure, unspecified whether with hypoxia or hypercapnia Status: Acute Assessment and Plan Telemetry with no recent arrhythmias on metoprolol. Continue current program including metoprolol. No new cardiac problems. Recommend to transfer to long- term care facility. Klaus Panchal MD Apr 04, 2017 18:39
--- NOTE | 2017-04-04 21:20 | HHI.PR ---
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 Mod amount of trach secretions Objective Vital Signs Vital Signs Date Time Temp Pulse Resp B/P (MAP) Pulse Ox O2 Delivery O2 Flow Rate FiO2 04/04/17 20:21 100 T-piece 4.00 28 04/04/17 16:07 98.0 88 22 110/60 (77) 98 04/04/17 12:07 98.5 94 22 111/53 (72) 99 04/04/17 09:53 98 Trach Collar 5.00 28 04/04/17 09:53 98 Trach Collar 5.00 28 04/04/17 08:07 96.2 89 22 113/59 (77) 98 04/04/17 08:00 74 04/04/17 08:00 96 T-Piece 5.00 28 04/04/17 04:00 97.5 76 18 122/65 (84) 100 04/04/17 03:47 100 T-Piece 4.00 04/04/17 00:00 100 T-Piece 4.00 28 04/04/17 00:00 98.1 86 20 120/63 (82) 99 I/O 04/03/17 04/03/17 04/03/17 04/04/17 04/04/17 04/04/17 07:00 15:00 23:00 07:00 15:00 23:00 Intake Total 100 ml 0 ml 0 ml 100 ml Output Total 350 ml 1800 ml 700 ml 700 ml Balance -350 ml -1700 ml -700 ml -700 ml 100 ml Intake Oral 0 ml 0 ml 0 ml IV Total 100 ml 100 ml Output Urine Total 350 ml 1800 ml 700 ml 700 ml # Bowel Movements 2 1 0 Result Diagram: 04/01/17 0704/01/17 07 Objective Remarks GENERAL: MBMN WF, on Trach collar SKIN: Warm and dry. HEAD: Normocephalic. EYES: No scleral icterus. No injection or drainage. NECK: Supple, trachea midline. No JVD or lymphadenopathy. has trach CARDIOVASCULAR: Regular rate and rhythm without murmurs, gallops, or rubs. RESPIRATORY: Breath sounds equal bilaterally. No accessory muscle use. GASTROINTESTINAL: Abdomen soft, non-tender, nondistended. has PEG MUSCULOSKELETAL: No cyanosis, or edema. BACK: Nontender without obvious deformity. No CVA tenderness. A/P Assessment and Plan RF, S/P Trach CVA Arango arango disease CAD COPD SZ disorder PLAN: Aerosol nebs Cont trach collar supplement 02, keep sat >90%. TF Cont Levsin.Vernon West MD Apr 04, 2017 21:20
[2017-04-04] MEDS: SODIUM CHLORIDE 0.9% FLUSH 10 ML FLUSH IV FLUSH SCH (22:20)
[2017-04-04] MEDS: CHLORHEXIDINE 0.12% (ORAL KIT) 15 ML CUP MT SCH (22:21)
[2017-04-04] MEDS: POVIDONE IODINE 10% OINT 30 GM TUBE TOPICAL SCH (23:20)
[2017-04-05] VITALS (9 sets, daily range): BP systolic 110–139; BP diastolic 53–68; PULSE 73–93; RESP 16–22; TEMP 97.4–99.3; O2SAT 97–100
[2017-04-05] MEDS: CHLORHEXIDINE GLUCONATE 2 % 1 PACK (2 CLOTHS) TOP SCH (03:05)
[2017-04-05] MEDS: HYOSCYAMINE SOLN 0.125 MG/ML 15 ML BTL G-TUBE SCH ×3 (05:01→18:00)
[2017-04-05] MEDS: METOPROLOL TARTRATE 25 MG TAB G-TUBE SCH ×3 (05:01→17:43)
[2017-04-05] MEDS: FREE WATER G-TUBE SCH ×3 (05:02→21:06)
[2017-04-05] MEDS: RESP: IPRATROPIUM 0.5 MG/2.5 ML NEB NEB SCH ×4 (07:49→19:17)
[2017-04-05] MEDS: JUVEN POWDER 1 PACK G-TUBE SCH ×2 (09:00→20:51)
[2017-04-05] MEDS: POVIDONE IODINE 10% OINT 30 GM TUBE TOPICAL SCH (09:00)
[2017-04-05] MEDS: SENNOSIDES SYRUP 8.8 MG/5 ML CUP G-TUBE SCH ×2 (09:00→20:53)
[2017-04-05] MEDS: POTASSIUM CHLORIDE 20 MEQ PWD PACKET NG SCH (09:00)
[2017-04-05] MEDS: SODIUM HYPOCHLORITE 0.25% 500 ML BTL TOPICAL SCH (09:00)
[2017-04-05] MEDS: INSULIN ASPART SUPPLEMENTAL SCALE SQ SCH ×2 (09:00→21:00)
[2017-04-05] MEDS: ASCORBIC ACID 500 MG TAB PEG SCH ×2 (09:15→20:52)
[2017-04-05] MEDS: SACUBITRIL/VALSARTAN 24 MG-26 MG TAB PEG SCH ×2 (09:15→20:49)
[2017-04-05] MEDS: FOLIC ACID 1 MG TAB OG-TUBE SCH (09:15)
[2017-04-05] MEDS: FAMOTIDINE 20 MG TAB NG SCH ×2 (09:15→20:47)
[2017-04-05] MEDS: BROMOCRIPTINE MESYLATE 2.5 MG TAB OG-TUBE SCH ×2 (09:15→20:47)
[2017-04-05] MEDS: FUROSEMIDE 20 MG/2 ML VIAL IV PUSH SCH (09:16)
[2017-04-05] MEDS: SODIUM CHLORIDE 0.9% FLUSH 10 ML FLUSH IV FLUSH SCH ×2 (09:16→21:05)
[2017-04-05] MEDS: ATORVASTATIN 40 MG TAB G-TUBE SCH (09:16)
[2017-04-05] MEDS: levETIRAcetam 500 MG/5 ML UDC NG SCH ×2 (09:17→20:48)
[2017-04-05] MEDS: LACTULOSE SYRUP 20 GM/30 ML CUP G-TUBE SCH ×3 (09:17→17:44)
--- NOTE | 2017-04-05 09:17 | HHI.PR ---
Subjective Remarks Follow up on patient with Moyamoya disease s/p bilateral frontal CVA. Patient seen and examined today. Patient does not open her eyes. Does not respond to commands. Discussed with nursing staff - request to change yates indication and possibly discontinue continuous pulse ox. No acute issues noted. Objective Vitals Vital Signs Date Time Temp Pulse Resp B/P (MAP) Pulse Ox O2 Delivery O2 Flow Rate FiO2 04/05/17 07:56 100 T-piece 5.00 28 04/05/17 07:56 100 T-piece 5.00 28 04/05/17 06:31 97.8 73 18 110/60 (77) 97 04/05/17 01:26 98.2 75 16 115/62 (79) 99 04/04/17 21:51 97.8 77 18 105/55 (72) 99 04/04/17 20:21 100 T-piece 4.00 28 04/04/17 20:00 Trach Collar 5.00 28 04/04/17 20:00 71 04/04/17 16:07 98.0 88 22 110/60 (77) 98 04/04/17 12:07 98.5 94 22 111/53 (72) 99 04/04/17 09:53 98 Trach Collar 5.00 28 04/04/17 09:53 98 Trach Collar 5.00 28 I/O 04/04/17 04/04/17 04/04/17 04/05/17 04/05/17 04/05/17 07:00 15:00 23:00 07:00 15:00 23:00 Intake Total 0 ml 0 ml 100 ml 1194 ml Output Total 700 ml 700 ml 900 ml Balance -700 ml -700 ml 100 ml 294 ml Intake Oral 0 ml 0 ml IV Total 100 ml Tube Feeding 1194 ml Output Urine Total 700 ml 700 ml 900 ml # Bowel Movements 1 0 2 Result Diagram: 04/01/17 0701 04/01/17 0701 Imaging Last Impressions Chest X-Ray 03/20/17 0000 Signed Impressions: Service Date/Time: Monday, March 20, 2017 11:37 - CONCLUSION: Stable appearance with no acute cardiopulmonary disease. Lenny Kerns MD Abdomen X-Ray 02/11/17 0000 Signed Impressions: Service Date/Time: Saturday, February 11, 2017 17:52 - CONCLUSION: Minimal colonic distention. Kenneth Frost MD FACR Catheter Change 02/10/17 0000 Signed Impressions: Service Date/Time: February 13:47 - CONCLUSION: Uncomplicated fluoroscopic guided gastrostomy tube replacement. Positioning confirmed. The tube can be used immediately. Nghia Pacheco MD Lower Extremity Ultrasound 02/01/17 0000 Signed Impressions: Service Date/Time: Wednesday, February 01, 2017 13:23 - CONCLUSION: Normal examination. 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 Sami Mccarthy MD Objective Remarks GENERAL: WDWN female, lying in hospital bed. INAD. Does not open her eyes. Does not follow any commands. SKIN: Warm and dry. HEENT: Normocephalic. No nasal bleeding or discharge noted. Dry mucus membranes. NECK: Trachea midline. T piece in place thick whitish secretions noted in tubing. CARDIOVASCULAR: Regular rate and rhythm without murmurs, gallops, or rubs. RESPIRATORY: Coarse BS noted. No accessory muscle use. 99% oxygenation per bedside monitor. GASTROINTESTINAL: Abdomen soft, non-tender, nondistended. PEG in place, site with some mild crusting noted. MUSCULOSKELETAL: No cyanosis. Bilateral SCDs in place. NEUROLOGICAL: Nonverbal. Does not respond to voice or noxious stimulus. No spontaneous movement appreciated. Procedures PEG 11/24/2016 Percutaneous tracheostomy. 11/18/2016 Moderate encephalopathy with suggestion of left temporal region cortical irritability. No active seizures. Clinical correlation. Echocardiogram Severe dilated left ventricle. Wall thickness is normal. The left ventricular systolic function is moderately reduced with an estimated ejection fraction in the range of 35-40%. Doppler parameters are consistent with a restrictive left ventricular filling pattern indicative of decreased left ventricular diastolic compliance and increase left atrial pressure (grade 3 diastolic dysfunction). There is severe tricuspid regurgitation. There is severe pulmonary hypertension present ( > 70 mmHg). Severe mitral valve regurgitation. Medications and IVs Current Medications Medications (Trade) Dose Ordered Sig/Ora Route Start Time Stop Time Status Last Admin (Peridex 0.12% Liq) 15 ml BID@08,20 MT 11/18/16 08:00 04/04/17 22:21 (NS Flush) 2 ml BID IV FLUSH 11/18/16 09:00 04/04/17 22:20 (Morphine Inj) 2 mg Q2H PRN IV 11/18/16 03:30 03/27/17 10:13 (Zofran Inj) 4 mg Q6H PRN IV 11/18/16 03:30 11/26/16 03:20 Miscellaneous Information 1 Q361D XX 11/18/16 03:30 11/18/16 03:30 (Chlorhexidine 2% Cloth) Taper DAILY@04 TOP 11/18/16 04:00 11/14/17 03:59 03/28/17 04:03 (Chlorhexidine 2% Cloth) 3 pack UNSCH PRN TOP 11/18/16 03:30 (Parlodel) 2.5 mg Q12HR OG-TUBE 11/18/16 09:00 04/04/17 22:24 (Folate) 1 mg DAILY OG-TUBE 11/18/16 09:00 04/04/17 08:14 (Dulcolax Supp) 10 mg DAILY PRN RECTAL 12/14/16 15:45 (Pepcid) 20 mg BID NG 12/21/16 21:00 04/04/17 22:24 (TEGretol LIQ) 200 mg Q12HR PEG 01/06/17 09:00 04/04/17 22:25 (Corby Powder) 1 pack BID G-TUBE 01/13/17 09:00 04/04/17 22:22 (Ferrous Sulfate Liq) 300 mg BID PEG 01/26/17 21:00 04/04/17 22:24 (Vitamin C) 500 mg BID PEG 01/26/17 21:00 04/04/17 22:25 (Dearing 5-325 Mg) 1 tab Q4H PRN G-TUBE 02/01/17 11:30 03/25/17 16:36 (Tylenol) 650 mg Q6H PRN G-TUBE 02/01/17 09:30 03/26/17 02:43 (Lipitor) 40 mg DAILY G-TUBE 02/01/17 09:00 04/04/17 08:14 (Senna Liq) 8.8 mg BID G-TUBE 02/01/17 09:00 04/04/17 22:23 (D50w (Vial) Inj) 25 ml UNSCH PRN IV PUSH 02/01/17 09:15 (Glucagon Inj) 1 mg UNSCH PRN OTHER 02/01/17 09:15 Pharmacy Profile Note 0 ml @ 0 mls/hr UNSCH OTHER 02/01/17 09:15 (Dakin'S 0.25% Soln) USE DAILY WITH DRESS... DAILY TOPICAL 02/12/17 18:00 04/01/17 09:00 (Betadine 10% Oint) 1 applic DAILY TOPICAL 02/15/17 09:00 04/04/17 23:20 (Lactulose Liq) 30 ml TID G-TUBE 02/21/17 13:00 04/04/17 17:36 (Zaroxolyn) 5 mg DAILY PEG 03/09/17 09:00 Future Hold 03/13/17 10:04 (Entresto 24-26 Mg) 1 tab BID PEG 03/08/17 21:00 04/04/17 08:14 (Free Water) VOLUME OF WATER: ( 300 ) ML Q8HR G-TUBE 03/09/17 14:00 04/05/17 05:02 (Levsin Liq) 0.125 mg Q6H G-TUBE 03/10/17 18:00 04/05/17 05:01 (Lasix Inj) 20 mg DAILY IV PUSH 03/16/17 11:30 04/04/17 08:15 (KCl Powder) 20 meq DAILY NG 03/17/17 09:00 04/04/17 09:00 (NovoLOG SUPPLEMENTAL SCALE) 1 BID SQ 03/20/17 21:00 03/22/17 22:04 (Albuterol Neb) 0.63 mg Q4HR NEB PRN NEB 03/21/17 09:15 (Atrovent Neb) 0.5 mg QID NEB NEB 03/21/17 12:00 04/05/17 07:49 (Keppra Liq) 1,000 mg Q12HR NG 03/21/17 21:00 04/04/17 22:24 Ceftriaxone Sodium 2000 mg/ Sodium Chloride 100 ml @ 200 mls/hr Q24H IV 03/24/17 18:00 04/05/17 17:59 04/04/17 17:35 (Lopressor) 50 mg Q6HR G-TUBE 03/27/17 18:00 04/05/17 05:01 (Coumadin) 7.5 mg DAILY@1600 PO 03/28/17 16:00 04/04/17 17:36 Pharmacy Profile Note 0 ml @ 0 mls/hr UNSCH OTHER 04/04/17 11:00 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 Status: Acute (2) Seizure ICD Code: R56.9 - Unspecified convulsions Status: Acute (3) CVA (cerebral vascular accident) ICD Code: I63.9 - Cerebral infarction, unspecified Status: Acute (4) Respiratory failure, acute ICD Code: J96.00 - Acute respiratory failure, unspecified whether with hypoxia or hypercapnia Status: Acute (5) COPD (chronic obstructive pulmonary disease) ICD Code: J44.9 - Chronic obstructive pulmonary disease, unspecified Status: Chronic (6) Acute hypernatremia ICD Code: E87.0 - Hyperosmolality and hypernatremia Status: Resolved (7) Microcytic anemia ICD Code: D50.9 - Iron deficiency anemia, unspecified Assessment and Plan Ms. Rivas is a 66-year-old female with a history of stroke who was admitted to the [facility] on 11/04/2016 due to difficulty getting her thoughts together. She was found to have multifocal nonhemorrhagic infarctions in the frontal and parietal regions. She was initially awake and following commands with weakness of RLE and some aphasia. She was transferred to [facility] where he had an cerebral angiogram consistent with moyamoya. There were plans to perform extracranial/intracranial bypass. However, she had a seizure and ended up being intubated for status epilepticus 11/09 or 11/10. She was found to have a new right frontal infarct area and she was started on Dilantin and Keppra and it was felt that she would not be a candidate for intervention. She has since undergone PEG placement. Apparently family requested transfer back to [place] because they live locally and wanted her closer to home. Patient remained under critical care medicine until 12/24/2016. Viridans strep bacteremia - ID following. Per ID, sputum cx with GNR and staph aureus ? colonization. Urine with Kleb pneumo and E Coli ? colonization - Repeat blood cx 03/23 shows no growth in 5 days. 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 at [facility] October 2016 Seizure disorder - Continue Keppra 1000mg BID - Continue Tegretol 200mg q 12h - Follow for seizure activity - no recent seizure activity noted - Continue Bromocriptine - Keppra level 10.2 03/14. Obtain new level. - Tegretol level 7.1 03/31 Hyperammonemia - trending down - continue Lactulose 30mg TID - continue to monitor ammonia level as indicated Hyponatremia - possible secondary to Tegretol - appears stable - repeat labs ordered to monitor Mixed systolic and diastolic heart failure, stable - echocardiogram 02/02/17 shows EF 35-40%, grade 3 diastolic dysfunction, severe tricuspid regurgitation, severe pulmonary HTN and severe mitral valve regurgitation. - continue Lasix 20mg daily - continue on Entresto - monitor electrolytes and renal function - monitor for s/sxs of fluid overload Chronic respiratory failure COPD Multilobar pneumonia, resolved - Pulmonary medicine following, appreciate assistance - Status post tracheostomy on 11/24/2016. Currently on T piece. Continue on Levsin prn for secretions. O2 sats 99%. Will defer discontinuation of continuous pulse ox to pulm. - completed antibiotic course with Tobramycin, course ended on 01/20/17. - Continue DuoNebs when necessary - supplement O2 to keep O2 sats > 90% Atrial fibrillation plus recent SVT - Cardiology following - rate controlled - Continue Metoprolol 25mg q12hr and Coumadin - confirmed with Dr. Flores patient to continue Coumadin WITHOUT ASA. - INR subtherapeutic at 1.6. Cover with Lovenox. Pharmacy to dose. Additional 2.5mg Coumadin ordered. Repeat INR in am. Anasarca - Continue Lasix 20 mg IV daily Dysphagia Hypoalbuminemia - s/p PEG placement - continue Jevity 1.5 through PEG tube with Corby supplementation. - Continue TF continuous 60ml per hour New onset DM - HgbA1c 6.5 - continue with accucheks and ISS Sacral/Coccyx wound - Specialty bed ordered, continue - Wound care following - per their recs, pack wound daily with Santyl to sacrococcygeal wound. On right buttock, right ischium apply single layer Xeroform over open wound beds. Prep periwounds with Cavilon skin prep. Cover Xeroform with bordered gauze dressing. Change dressings EVERY OTHER DAY and PRN for dislodgement or soiling. - continue frequent turning/off loading Q2H Anemia, microcytic, hypochromic - stable - iron studies-iron 33, TIBC 307, % sat 10.8, ferritin 346. Continue iron supplementation. - stool hemoccult negative - monitor intermittently GI Prophylaxis: Pepcid. DVT prophylaxis: SCDs. Coumadin. Full code. Discussed with nursing staff, patient and Dr. Packer Discharge Planning Patient will need long-term care facility. CM continuing to seek placement. Last CM note:02/22/17- No accepting facility at this time. Barrier: payer is Medicaid and pt is too expensive with PEG and trach. Possibly can be placed with one or the other but not both. Tova March Apr 05, 2017 09:17
[2017-04-05] MEDS: carBAMazepine SUSP 200 MG/10 ML UDC PEG SCH ×2 (09:18→20:46)
[2017-04-05] MEDS: FERROUS SULFATE 300 MG /5ML UDC PEG SCH ×2 (09:18→20:47)
[2017-04-05 11:02] LABS: INTERNATIONAL NORMALIZED RATIO 1.6 RATIO; PROTHROMBIN TIME - PATIENT 18.5 SEC (9.8-11.6)
--- NOTE | 2017-04-05 13:48 | PD.CARD.PN ---
Subjective Subjective Remarks Unresponsive, comfortable Objective Medications Current Medications Medications (Trade) Dose Ordered Sig/Ora Route Start Time Stop Time Status Last Admin (Peridex 0.12% Liq) 15 ml BID@08,20 MT 11/18/16 08:00 04/04/17 22:21 (NS Flush) 2 ml BID IV FLUSH 11/18/16 09:00 04/05/17 09:16 (Morphine Inj) 2 mg Q2H PRN IV 11/18/16 03:30 03/27/17 10:13 (Zofran Inj) 4 mg Q6H PRN IV 11/18/16 03:30 11/26/16 03:20 Miscellaneous Information 1 Q361D XX 11/18/16 03:30 11/18/16 03:30 (Chlorhexidine 2% Cloth) Taper DAILY@04 TOP 11/18/16 04:00 11/14/17 03:59 03/28/17 04:03 (Chlorhexidine 2% Cloth) 3 pack UNSCH PRN TOP 11/18/16 03:30 (Parlodel) 2.5 mg Q12HR OG-TUBE 11/18/16 09:00 04/05/17 09:15 (Folate) 1 mg DAILY OG-TUBE 11/18/16 09:00 04/05/17 09:15 (Dulcolax Supp) 10 mg DAILY PRN RECTAL 12/14/16 15:45 (Pepcid) 20 mg BID NG 12/21/16 21:00 04/05/17 09:15 (TEGretol LIQ) 200 mg Q12HR PEG 01/06/17 09:00 04/05/17 09:18 (Corby Powder) 1 pack BID G-TUBE 01/13/17 09:00 04/05/17 09:00 (Ferrous Sulfate Liq) 300 mg BID PEG 01/26/17 21:00 04/05/17 09:18 (Vitamin C) 500 mg BID PEG 01/26/17 21:00 04/05/17 09:15 (Bearden 5-325 Mg) 1 tab Q4H PRN G-TUBE 02/01/17 11:30 03/25/17 16:36 (Tylenol) 650 mg Q6H PRN G-TUBE 02/01/17 09:30 03/26/17 02:43 (Lipitor) 40 mg DAILY G-TUBE 02/01/17 09:00 04/05/17 09:16 (Senna Liq) 8.8 mg BID G-TUBE 02/01/17 09:00 04/04/17 22:23 (D50w (Vial) Inj) 25 ml UNSCH PRN IV PUSH 02/01/17 09:15 (Glucagon Inj) 1 mg UNSCH PRN OTHER 02/01/17 09:15 (Dakin'S 0.25% Soln) USE DAILY WITH DRESS... DAILY TOPICAL 02/12/17 18:00 04/01/17 09:00 (Betadine 10% Oint) 1 applic DAILY TOPICAL 02/15/17 09:00 04/05/17 09:00 (Lactulose Liq) 30 ml TID G-TUBE 02/21/17 13:00 04/05/17 12:53 (Zaroxolyn) 5 mg DAILY PEG 03/09/17 09:00 Future Hold 03/13/17 10:04 (Entresto 24-26 Mg) 1 tab BID PEG 03/08/17 21:00 04/05/17 09:15 (Free Water) VOLUME OF WATER: ( 300 ) ML Q8HR G-TUBE 03/09/17 14:00 04/05/17 12:53 (Levsin Liq) 0.125 mg Q6H G-TUBE 03/10/17 18:00 04/05/17 12:00 (Lasix Inj) 20 mg DAILY IV PUSH 03/16/17 11:30 04/05/17 09:16 (KCl Powder) 20 meq DAILY NG 03/17/17 09:00 04/05/17 09:00 (NovoLOG SUPPLEMENTAL SCALE) 1 BID SQ 03/20/17 21:00 03/22/17 22:04 (Albuterol Neb) 0.63 mg Q4HR NEB PRN NEB 03/21/17 09:15 (Atrovent Neb) 0.5 mg QID NEB NEB 03/21/17 12:00 04/05/17 12:16 (Keppra Liq) 1,000 mg Q12HR NG 03/21/17 21:00 04/05/17 09:17 Ceftriaxone Sodium 2000 mg/ Sodium Chloride 100 ml @ 200 mls/hr Q24H IV 03/24/17 18:00 04/05/17 17:59 04/04/17 17:35 (Lopressor) 50 mg Q6HR G-TUBE 03/27/17 18:00 04/05/17 12:53 (Coumadin) 7.5 mg DAILY@1600 PO 03/28/17 16:00 04/04/17 17:36 Pharmacy Profile Note 0 ml @ 0 mls/hr UNSCH OTHER 04/04/17 11:00 (Coumadin) 2.5 mg ONCE@1600 ONCE PO 04/05/17 16:00 04/05/17 16:01 Vital Signs / I&O Vital Signs Date Time Temp Pulse Resp B/P (MAP) Pulse Ox O2 Delivery O2 Flow Rate FiO2 04/05/17 08:07 97.4 88 22 115/68 (84) 99 04/05/17 07:56 100 T-piece 5.00 28 04/05/17 07:56 100 T-piece 5.00 28 04/05/17 06:31 97.8 73 18 110/60 (77) 97 04/05/17 01:26 98.2 75 16 115/62 (79) 99 04/04/17 21:51 97.8 77 18 105/55 (72) 99 04/04/17 20:21 100 T-piece 4.00 28 04/04/17 20:00 Trach Collar 5.00 04/04/17 20:00 71 04/04/17 16:07 98.0 88 22 110/60 (77) 98 I/O 04/04/17 04/04/17 04/04/17 04/05/17 04/05/17 04/05/17 06:59 14:59 22:59 06:59 14:59 22:59 Intake Total 0 ml 0 ml 100 ml 1194 ml Output Total 700 ml 700 ml 900 ml Balance -700 ml -700 ml 100 ml 294 ml Intake Oral 0 ml 0 ml IV Total 100 ml Tube Feeding 1194 ml Output Urine Total 700 ml 700 ml 900 ml # Bowel Movements 1 0 2 Physical Exam GENERAL: In NAD SKIN: Warm and dry. HEAD: Normocephalic. EYES: No scleral icterus. No injection or drainage. NECK: Supple, trachea midline. No JVD or lymphadenopathy. Trach in place CARDIOVASCULAR: Regular rate and rhythm without murmurs, gallops, or rubs. RESPIRATORY: Breath sounds equal bilaterally. No accessory muscle use. GASTROINTESTINAL: Abdomen soft, non-tender, nondistended. MUSCULOSKELETAL: No cyanosis, or edema. Laboratory Laboratory Tests Test 04/05/17 10:15 Prothrombin Time 18.5 SEC Prothromb Time International Ratio 1.6 RATIO Imaging Last Impressions Chest X-Ray 03/20/17 0000 Signed Impressions: Service Date/Time: Monday, March 20, 2017 11:37 - CONCLUSION: Stable appearance with no acute cardiopulmonary disease. Lenny Kerns MD Abdomen X-Ray 02/11/17 0000 Signed Impressions: Service Date/Time: Saturday, February 11, 2017 17:52 - CONCLUSION: Minimal colonic distention. Kenneth Frost MD FACR Catheter Change 02/10/17 0000 Signed Impressions: Service Date/Time: February 13:47 - CONCLUSION: Uncomplicated fluoroscopic guided gastrostomy tube replacement. Positioning confirmed. The tube can be used immediately. Nghia Pacheco MD Lower Extremity Ultrasound 02/01/17 0000 Signed Impressions: Service Date/Time: Wednesday, February 01, 2017 13:23 - CONCLUSION: Normal examination. 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 Telemetry with no recent arrhythmias. Continue current program including metoprolol. No new cardiac problems. Transfer to [facility] if possible. Klaus Panchal MD Apr 05, 2017 13:48
[2017-04-05] MEDS: WARFARIN SOD 7.5 MG TAB PO SCH (16:00)
[2017-04-05] MEDS ORDERED: WARFARIN SOD 2.5 MG TAB PO ONE (16:00)
[2017-04-05 16:15] LABS: BICARBONATE 30.3 MEQ/L (21.0-32.0); POTASSIUM 4.1 MEQ/L (3.5-5.1)
[2017-04-05] MEDS ORDERED: ENOXAPARIN SODIUM 40 MG/0.4 ML SYRINGE SQ ONE (17:00)
--- NOTE | 2017-04-05 20:11 | HHI.PR ---
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 Mod amount of trach secretions No new complaint reported Objective Vital Signs Vital Signs Date Time Temp Pulse Resp B/P (MAP) Pulse Ox O2 Delivery O2 Flow Rate FiO2 04/05/17 16:05 97.6 83 22 129/60 (83) 98 04/05/17 15:28 100 T-piece 6.00 28 04/05/17 12:05 99.3 93 22 139/63 (88) 100 04/05/17 08:07 97.4 88 22 115/68 (84) 99 04/05/17 08:00 96 Trach Collar 5.00 04/05/17 08:00 86 04/05/17 07:56 100 T-piece 5.00 28 04/05/17 07:56 100 T-piece 5.00 28 04/05/17 06:31 97.8 73 18 110/60 (77) 97 04/05/17 01:26 98.2 75 16 115/62 (79) 99 04/04/17 21:51 97.8 77 18 105/55 (72) 99 04/04/17 20:21 100 T-piece 4.00 28 I/O 04/04/17 04/04/17 04/04/17 04/05/17 04/05/17 04/05/17 07:00 15:00 23:00 07:00 15:00 23:00 Intake Total 0 ml 0 ml 100 ml 1194 ml 0 ml Output Total 700 ml 700 ml 900 ml 2000 ml Balance -700 ml -700 ml 100 ml 294 ml -2000 ml Intake Oral 0 ml 0 ml 0 ml IV Total 100 ml Tube Feeding 1194 ml Output Urine Total 700 ml 700 ml 900 ml 2000 ml # Bowel Movements 1 0 2 1 Result Diagram: 04/01/17 0701 04/05/17 1530 Objective Remarks GENERAL: MBMN WF, on Trach collar SKIN: Warm and dry. HEAD: Normocephalic. EYES: No scleral icterus. No injection or drainage. NECK: Supple, trachea midline. No JVD or lymphadenopathy. has trach CARDIOVASCULAR: Regular rate and rhythm without murmurs, gallops, or rubs. RESPIRATORY: Breath sounds equal bilaterally. No accessory muscle use. GASTROINTESTINAL: Abdomen soft, non-tender, nondistended. has PEG MUSCULOSKELETAL: No cyanosis, or edema. BACK: Nontender without obvious deformity. No CVA tenderness. A/P Assessment and Plan RF, S/P Trach CVA Arango arango disease CAD COPD SZ disorder PLAN: Aerosol nebs Cont trach collar supplement 02, keep sat >90%. TF Cont Levsin.Vernon West MD Apr 05, 2017 20:11
[2017-04-05] MEDS: CHLORHEXIDINE 0.12% (ORAL KIT) 15 ML CUP MT SCH (20:52)
[2017-04-06] VITALS (9 sets, daily range): BP systolic 97–130; BP diastolic 50–69; PULSE 78–110; RESP 16–22; TEMP 98–98.7; O2SAT 98–100
[2017-04-06] MEDS: HYOSCYAMINE SOLN 0.125 MG/ML 15 ML BTL G-TUBE SCH ×5 (00:47→23:46)
[2017-04-06] MEDS: METOPROLOL TARTRATE 25 MG TAB G-TUBE SCH ×5 (00:47→23:49)
[2017-04-06] MEDS: CHLORHEXIDINE GLUCONATE 2 % 1 PACK (2 CLOTHS) TOP SCH (04:33)
[2017-04-06] MEDS: FREE WATER G-TUBE SCH ×3 (04:33→21:49)
[2017-04-06] MEDS: CHLORHEXIDINE 0.12% (ORAL KIT) 15 ML CUP MT SCH ×2 (08:00→20:00)
[2017-04-06 08:54] LABS: INTERNATIONAL NORMALIZED RATIO 1.9 RATIO; PROTHROMBIN TIME - PATIENT 21.4 SEC (9.8-11.6)
[2017-04-06] MEDS: SODIUM CHLORIDE 0.9% FLUSH 10 ML FLUSH IV FLUSH SCH ×2 (09:00→21:48)
[2017-04-06] MEDS: POVIDONE IODINE 10% OINT 30 GM TUBE TOPICAL SCH (09:00)
[2017-04-06] MEDS: JUVEN POWDER 1 PACK G-TUBE SCH ×2 (09:00→21:00)
[2017-04-06] MEDS: POTASSIUM CHLORIDE 20 MEQ PWD PACKET NG SCH (09:00)
[2017-04-06] MEDS: SODIUM HYPOCHLORITE 0.25% 500 ML BTL TOPICAL SCH ×2 (09:00→11:22)
[2017-04-06] MEDS: INSULIN ASPART SUPPLEMENTAL SCALE SQ SCH ×2 (09:00→21:00)
[2017-04-06] MEDS: RESP: IPRATROPIUM 0.5 MG/2.5 ML NEB NEB SCH ×4 (09:23→19:19)
[2017-04-06] MEDS: LACTULOSE SYRUP 20 GM/30 ML CUP G-TUBE SCH ×3 (11:26→18:00)
[2017-04-06] MEDS: FERROUS SULFATE 300 MG /5ML UDC PEG SCH ×2 (11:29→21:47)
[2017-04-06] MEDS: carBAMazepine SUSP 200 MG/10 ML UDC PEG SCH ×2 (11:29→21:47)
[2017-04-06] MEDS: SENNOSIDES SYRUP 8.8 MG/5 ML CUP G-TUBE SCH ×2 (11:29→21:00)
[2017-04-06] MEDS: levETIRAcetam 500 MG/5 ML UDC NG SCH ×2 (11:29→21:47)
[2017-04-06] MEDS: BROMOCRIPTINE MESYLATE 2.5 MG TAB OG-TUBE SCH ×2 (11:30→21:47)
[2017-04-06] MEDS: FAMOTIDINE 20 MG TAB NG SCH ×2 (11:30→21:47)
[2017-04-06] MEDS: SACUBITRIL/VALSARTAN 24 MG-26 MG TAB PEG SCH ×2 (11:30→21:47)
[2017-04-06] MEDS: METOLAZONE 5 MG TAB PEG SCH (11:31)
[2017-04-06] MEDS: ATORVASTATIN 40 MG TAB G-TUBE SCH (11:31)
[2017-04-06] MEDS: ASCORBIC ACID 500 MG TAB PEG SCH ×2 (11:31→21:47)
[2017-04-06] MEDS: FOLIC ACID 1 MG TAB OG-TUBE SCH (11:31)
[2017-04-06] MEDS: FUROSEMIDE 20 MG/2 ML VIAL IV PUSH SCH (11:51)
[2017-04-06] MEDS ORDERED: ENOXAPARIN SODIUM 40 MG/0.4 ML SYRINGE SQ ONE (13:15)
--- NOTE | 2017-04-06 13:15 | HHI.PR ---
Subjective Remarks Follow up on patient with Moyamoya disease s/p bilateral frontal CVA. Patient seen and examined today. Patient opens her eyes to voice. Does not track. Does not follow commands. Discussed with nursing staff, patients sacral wound has become much more foul smelling with necrotic appearing tissue in wound bed. Objective Vitals Vital Signs Date Time Temp Pulse Resp B/P (MAP) Pulse Ox O2 Delivery O2 Flow Rate FiO2 04/06/17 09:23 100 T-piece 28 04/06/17 09:23 100 T-piece 28 04/06/17 08:00 98.3 83 16 110/59 (76) 100 04/06/17 04:00 98.4 85 22 100/50 (67) 100 04/06/17 00:00 98.7 89 22 115/57 (76) 100 04/05/17 20:00 98.3 84 22 116/53 (74) 98 04/05/17 20:00 75 04/05/17 20:00 Trach Collar 5.00 28 04/05/17 16:05 97.6 83 22 129/60 (83) 98 04/05/17 15:28 100 T-piece 6.00 28 I/O 04/05/17 04/05/17 04/05/17 04/06/17 04/06/17 04/06/17 06:59 14:59 22:59 06:59 14:59 22:59 Intake Total 1194 ml 0 ml 1027 ml Output Total 900 ml 2000 ml 300 ml 300 ml Balance 294 ml -2000 ml -300 ml 727 ml Intake Oral 0 ml Tube Feeding 1194 ml 427 ml Other 600 ml Output Urine Total 900 ml 2000 ml 300 ml 300 ml # Bowel Movements 2 1 0 0 Result Diagram: 04/05/17 1530 Imaging Last Impressions Chest X-Ray 03/20/17 0000 Signed Impressions: Service Date/Time: Monday, March 20, 2017 11:37 - CONCLUSION: Stable appearance with no acute cardiopulmonary disease. Lenny Kerns MD Abdomen X-Ray 02/11/17 0000 Signed Impressions: Service Date/Time: Saturday, February 11, 2017 17:52 - CONCLUSION: Minimal colonic distention. Kenneth Frost MD FACR Catheter Change 02/10/17 0000 Signed Impressions: Service Date/Time: February 13:47 - CONCLUSION: Uncomplicated fluoroscopic guided gastrostomy tube replacement. Positioning confirmed. The tube can be used immediately. Nghia Pacheco MD Lower Extremity Ultrasound 02/01/17 0000 Signed Impressions: Service Date/Time: Wednesday, February 01, 2017 13:23 - CONCLUSION: Normal examination. 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 Sami Mccarthy MD Objective Remarks GENERAL: WDWN female, lying in hospital bed, INAD. Opens her eyes to voice. Does not follow any commands. Appears comfortable. SKIN: Warm and dry. Per RN, sacral wound foul smelling with necrotic appearing tissue in wound bed. HEENT: Normocephalic. No nasal bleeding or discharge noted. Dry mucus membranes. NECK: Trachea midline. T piece in place with scant secretions noted in tubing. CARDIOVASCULAR: Regular rate and rhythm without murmurs, gallops, or rubs. RESPIRATORY: Coarse BS noted. No accessory muscle use. GASTROINTESTINAL: Abdomen soft, non-tender, nondistended. PEG in place, site with some mild crusting noted. MUSCULOSKELETAL: No cyanosis. Bilateral SCDs in place. NEUROLOGICAL: Nonverbal. Does not respond to voice or noxious stimulus. No spontaneous movement appreciated. Procedures PEG 11/24/2016 Percutaneous tracheostomy. 11/18/2016 Moderate encephalopathy with suggestion of left temporal region cortical irritability. No active seizures. Clinical correlation. Echocardiogram Severe dilated left ventricle. Wall thickness is normal. The left ventricular systolic function is moderately reduced with an estimated ejection fraction in the range of 35-40%. Doppler parameters are consistent with a restrictive left ventricular filling pattern indicative of decreased left ventricular diastolic compliance and increase left atrial pressure (grade 3 diastolic dysfunction). There is severe tricuspid regurgitation. There is severe pulmonary hypertension present ( > 70 mmHg). Severe mitral valve regurgitation. Medications and IVs Current Medications Medications (Trade) Dose Ordered Sig/Ora Route Start Time Stop Time Status Last Admin (Peridex 0.12% Liq) 15 ml BID@08,20 MT 11/18/16 08:00 04/06/17 08:00 (NS Flush) 2 ml BID IV FLUSH 11/18/16 09:00 04/06/17 09:00 (Morphine Inj) 2 mg Q2H PRN IV 11/18/16 03:30 03/27/17 10:13 (Zofran Inj) 4 mg Q6H PRN IV 11/18/16 03:30 11/26/16 03:20 Miscellaneous Information 1 Q361D XX 11/18/16 03:30 11/18/16 03:30 (Chlorhexidine 2% Cloth) Taper DAILY@04 TOP 11/18/16 04:00 11/14/17 03:59 04/06/17 04:33 (Chlorhexidine 2% Cloth) 3 pack UNSCH PRN TOP 11/18/16 03:30 (Parlodel) 2.5 mg Q12HR OG-TUBE 11/18/16 09:00 04/06/17 11:30 (Folate) 1 mg DAILY OG-TUBE 11/18/16 09:00 04/06/17 11:31 (Dulcolax Supp) 10 mg DAILY PRN RECTAL 12/14/16 15:45 (Pepcid) 20 mg BID NG 12/21/16 21:00 04/06/17 11:30 (TEGretol LIQ) 200 mg Q12HR PEG 01/06/17 09:00 04/06/17 11:29 (Corby Powder) 1 pack BID G-TUBE 01/13/17 09:00 04/06/17 09:00 (Ferrous Sulfate Liq) 300 mg BID PEG 01/26/17 21:00 04/06/17 11:29 (Vitamin C) 500 mg BID PEG 01/26/17 21:00 04/06/17 11:31 (Loring 5-325 Mg) 1 tab Q4H PRN G-TUBE 02/01/17 11:30 03/25/17 16:36 (Tylenol) 650 mg Q6H PRN G-TUBE 02/01/17 09:30 03/26/17 02:43 (Lipitor) 40 mg DAILY G-TUBE 02/01/17 09:00 04/06/17 11:31 (Senna Liq) 8.8 mg BID G-TUBE 02/01/17 09:00 04/06/17 11:29 (D50w (Vial) Inj) 25 ml UNSCH PRN IV PUSH 02/01/17 09:15 (Glucagon Inj) 1 mg UNSCH PRN OTHER 02/01/17 09:15 (Dakin'S 0.25% Soln) USE DAILY WITH DRESS... DAILY TOPICAL 02/12/17 18:00 04/06/17 09:00 (Betadine 10% Oint) 1 applic DAILY TOPICAL 02/15/17 09:00 04/06/17 09:00 (Lactulose Liq) 30 ml TID G-TUBE 02/21/17 13:00 04/06/17 11:26 (Zaroxolyn) 5 mg DAILY PEG 03/09/17 09:00 Future Hold 04/06/17 11:31 (Entresto 24-26 Mg) 1 tab BID PEG 03/08/17 21:00 04/06/17 11:30 (Free Water) VOLUME OF WATER: ( 300 ) ML Q8HR G-TUBE 03/09/17 14:00 04/06/17 04:33 (Levsin Liq) 0.125 mg Q6H G-TUBE 03/10/17 18:00 04/06/17 11:53 (Lasix Inj) 20 mg DAILY IV PUSH 03/16/17 11:30 04/06/17 11:51 (KCl Powder) 20 meq DAILY NG 03/17/17 09:00 04/06/17 09:00 (NovoLOG SUPPLEMENTAL SCALE) 1 BID SQ 03/20/17 21:00 03/22/17 22:04 (Albuterol Neb) 0.63 mg Q4HR NEB PRN NEB 03/21/17 09:15 (Atrovent Neb) 0.5 mg QID NEB NEB 03/21/17 12:00 04/06/17 09:23 (Keppra Liq) 1,000 mg Q12HR NG 03/21/17 21:00 04/06/17 11:29 (Lopressor) 50 mg Q6HR G-TUBE 03/27/17 18:00 04/06/17 04:37 (Coumadin) 7.5 mg DAILY@16 PO 04/05/17 16:00 04/05/17 16:00 Pharmacy Profile Note 0 ml @ 0 mls/hr UNSCH OTHER 04/05/17 14:45 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 Status: Acute (2) Seizure ICD Code: R56.9 - Unspecified convulsions Status: Acute (3) CVA (cerebral vascular accident) ICD Code: I63.9 - Cerebral infarction, unspecified Status: Acute (4) Respiratory failure, acute ICD Code: J96.00 - Acute respiratory failure, unspecified whether with hypoxia or hypercapnia Status: Acute (5) COPD (chronic obstructive pulmonary disease) ICD Code: J44.9 - Chronic obstructive pulmonary disease, unspecified Status: Chronic (6) Acute hypernatremia ICD Code: E87.0 - Hyperosmolality and hypernatremia Status: Resolved (7) Microcytic anemia ICD Code: D50.9 - Iron deficiency anemia, unspecified Assessment and Plan Ms. Rivas is a 66-year-old female with a history of stroke who was admitted to the [facility] on 11/04/2016 due to difficulty getting her thoughts together. She was found to have multifocal nonhemorrhagic infarctions in the frontal and parietal regions. She was initially awake and following commands with weakness of RLE and some aphasia. She was transferred to [facility] where he had an cerebral angiogram consistent with moyamoya. There were plans to perform extracranial/intracranial bypass. However, she had a seizure and ended up being intubated for status epilepticus 11/09 or 11/10. She was found to have a new right frontal infarct area and she was started on Dilantin and Keppra and it was felt that she would not be a candidate for intervention. She has since undergone PEG placement. Apparently family requested transfer back to [place] because they live locally and wanted her closer to home. Patient remained under critical care medicine until 12/24/2016. Viridans strep bacteremia - ID following. Per ID, sputum cx with GNR and staph aureus ? colonization. Urine with Kleb pneumo and E Coli ? colonization - Repeat blood cx 03/23 shows no growth in 5 days. 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 at [facility] October 2016 Seizure disorder - Continue Keppra 1000mg BID - Continue Tegretol 200mg q 12h - Follow for seizure activity - no recent seizure activity noted - Continue Bromocriptine - Keppra level 10.2 03/14. Obtain new level - pending - Tegretol level 7.1 03/31 Hyperammonemia - trending down - continue Lactulose 30mg TID - continue to monitor ammonia level as indicated Hyponatremia - possible secondary to Tegretol - improved Mixed systolic and diastolic heart failure, stable - echocardiogram 02/02/17 shows EF 35-40%, grade 3 diastolic dysfunction, severe tricuspid regurgitation, severe pulmonary HTN and severe mitral valve regurgitation. - continue Lasix 20mg daily - continue on Entresto - monitor electrolytes and renal function - monitor for s/sxs of fluid overload Chronic respiratory failure COPD Multilobar pneumonia, resolved - Pulmonary medicine following, appreciate assistance - Status post tracheostomy on 11/24/2016. Currently on T piece. Continue on Levsin prn for secretions. - completed antibiotic course with Tobramycin, course ended on 01/20/17. - Continue DuoNebs when necessary - supplement O2 to keep O2 sats > 90% Atrial fibrillation plus recent SVT - Cardiology following, stable - rate controlled - Continue Metoprolol 25mg q12hr and Coumadin - confirmed with Dr. Flores patient to continue Coumadin WITHOUT ASA. - INR subtherapeutic at 1.9. Cover with Lovenox. Pharmacy to dose. Repeat INR in am. Anasarca - Continue Lasix 20 mg IV daily Dysphagia Hypoalbuminemia - s/p PEG placement - continue Jevity 1.5 through PEG tube with Corby supplementation. - Continue TF continuous 60ml per hour New onset DM - HgbA1c 6.5 - continue with accucheks and ISS Sacral/Coccyx wound - Specialty bed ordered, continue - Wound care following - per their last note 03/30, improving wound when compared to last. Recommend to continue betadine moistened gauze packing with dry cover for one more week and then patient will be reassessed for alternative dressings. RN reports today that wound is much more foul smelling with necrotic appearing tissue in wound bed. Will reconsult wound care for their assessment/recommendations. - continue frequent turning/off loading Q2H Anemia, microcytic, hypochromic - stable - iron studies-iron 33, TIBC 307, % sat 10.8, ferritin 346. Continue iron supplementation. - stool hemoccult negative - monitor intermittently GI Prophylaxis: Pepcid. DVT prophylaxis: SCDs. Coumadin. Full code. Discussed with nursing staff, patient and Dr. Packer Discharge Planning Patient will need long-term care facility. CM continuing to seek placement. Last CM note:02/22/17- No accepting facility at this time. Barrier: payer is Medicaid and pt is too expensive with PEG and trach. Possibly can be placed with one or the other but not both. Tova March Apr 06, 2017 13:15
[2017-04-06] MEDS: WARFARIN SOD 7.5 MG TAB PO SCH (16:42)
--- NOTE | 2017-04-06 17:02 | PD.CARD.PN ---
Subjective Subjective Remarks No response, comfortable Objective Medications Active Medications Enoxaparin Sodium (Lovenox Inj) 40 mg ONCE ONCE SQ Last administered on t 13:15; Admin Dose 40 MG; Start 04/06/17 at 13:15; Stop 04/06/17 at 13:16; Status DC Vital Signs / I&O Vital Signs Date Time Temp Pulse Resp B/P (MAP) Pulse Ox O2 Delivery O2 Flow Rate FiO2 04/06/17 12:00 98.5 110 18 129/59 (82) 100 04/06/17 09:23 100 T-piece 28 04/06/17 09:23 100 T-piece 28 04/06/17 08:00 98.3 83 16 110/59 (76) 100 04/06/17 04:00 98.4 85 22 100/50 (67) 100 04/06/17 00:00 98.7 89 22 115/57 (76) 100 04/05/17 20:00 98.3 84 22 116/53 (74) 98 04/05/17 20:00 75 04/05/17 20:00 Trach Collar 5.00 28 I/O 04/05/17 04/05/17 04/05/17 04/06/17 04/06/17 04/06/17 07:00 15:00 23:00 07:00 15:00 23:00 Intake Total 1194 ml 0 ml 1027 ml Output Total 900 ml 2000 ml 300 ml 300 ml Balance 294 ml -2000 ml -300 ml 727 ml Intake Oral 0 ml Tube Feeding 1194 ml 427 ml Other 600 ml Output Urine Total 900 ml 2000 ml 300 ml 300 ml # Bowel Movements 2 1 0 0 Physical Exam GENERAL: In NAD SKIN: Warm and dry. HEAD: Normocephalic. EYES: No scleral icterus. No injection or drainage. NECK: Supple, trachea midline. No JVD or lymphadenopathy. Trach in place CARDIOVASCULAR: Regular rate and rhythm without murmurs, gallops, or rubs. RESPIRATORY: Breath sounds equal bilaterally. No accessory muscle use. GASTROINTESTINAL: Abdomen soft, non-tender, nondistended. MUSCULOSKELETAL: No cyanosis, or edema. Laboratory Laboratory Tests Test 04/06/17 08:26 Prothrombin Time 21.4 SEC Prothromb Time International Ratio 1.9 RATIO Assessment and Plan Problem List: (1) Narrow complex tachycardia ICD Codes: I47.1 - Supraventricular tachycardia Status: Acute (2) CVA (cerebral vascular accident) ICD Codes: I63.9 - Cerebral infarction, unspecified Status: Acute (3) Seizure ICD Codes: R56.9 - Unspecified convulsions Status: Acute (4) Moyamoya disease ICD Codes: I67.5 - Moyamoya disease Status: Acute (5) Encephalopathy ICD Codes: G93.40 - Encephalopathy, unspecified Status: Acute (6) Accelerated essential hypertension ICD Codes: I10 - Accelerated essential hypertension Status: Acute (7) Respiratory failure, acute ICD Codes: J96.00 - Acute respiratory failure, unspecified whether with hypoxia or hypercapnia Status: Acute Assessment and Plan No new cardiac issues. Telemetry with no recent arrhythmias. Continue current program including metoprolol. No change in neurologic status. Transfer to long- term care facility if possible. Klaus Panchal MD Apr 06, 2017 17:02
--- NOTE | 2017-04-06 19:28 | HHI.PR ---
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 Mod amount of trach secretions Objective Vital Signs Vital Signs Date Time Temp Pulse Resp B/P (MAP) Pulse Ox O2 Delivery O2 Flow Rate FiO2 04/06/17 19:19 100 T-piece 5.00 28 04/06/17 16:00 98.0 80 18 130/69 (89) 100 04/06/17 12:00 98.5 110 18 129/59 (82) 100 04/06/17 09:23 100 T-piece 28 04/06/17 09:23 100 T-piece 28 04/06/17 08:00 98.3 83 16 110/59 (76) 100 04/06/17 04:00 98.4 85 22 100/50 (67) 100 04/06/17 00:00 98.7 89 22 115/57 (76) 100 04/05/17 20:00 98.3 84 22 116/53 (74) 98 04/05/17 20:00 75 04/05/17 20:00 Trach Collar 5.00 28 I/O 04/05/17 04/05/17 04/05/17 04/06/17 04/06/17 04/06/17 07:00 15:00 23:00 07:00 15:00 23:00 Intake Total 1194 ml 0 ml 1027 ml Output Total 900 ml 2000 ml 300 ml 300 ml 2600 ml Balance 294 ml -2000 ml -300 ml 727 ml -2600 ml Intake Oral 0 ml Tube Feeding 1194 ml 427 ml Other 600 ml Output Urine Total 900 ml 2000 ml 300 ml 300 ml 2600 ml # Bowel Movements 2 1 0 0 3 Result Diagram: 04/05/17 1530 Objective Remarks GENERAL: MBMN WF, on Trach collar SKIN: Warm and dry. HEAD: Normocephalic. EYES: No scleral icterus. No injection or drainage. NECK: Supple, trachea midline. No JVD or lymphadenopathy. has trach CARDIOVASCULAR: Regular rate and rhythm without murmurs, gallops, or rubs. RESPIRATORY: Breath sounds equal bilaterally. No accessory muscle use. GASTROINTESTINAL: Abdomen soft, non-tender, nondistended. has PEG MUSCULOSKELETAL: No cyanosis, or edema. BACK: Nontender without obvious deformity. No CVA tenderness. A/P Assessment and Plan RF, S/P Trach CVA Arango arango disease CAD COPD SZ disorder PLAN: Aerosol nebs Cont trach collar supplement 02, keep sat >90%. TF Cont Levsin.Vernon West MD Apr 06, 2017 19:28
[2017-04-07] VITALS (10 sets, daily range): BP systolic 107–129; BP diastolic 54–77; PULSE 58–99; RESP 16–20; TEMP 97.5–99; O2SAT 97–100
[2017-04-07] MEDS: CHLORHEXIDINE GLUCONATE 2 % 1 PACK (2 CLOTHS) TOP SCH (03:52)
[2017-04-07] MEDS: METOPROLOL TARTRATE 25 MG TAB G-TUBE SCH ×3 (06:00→17:10)
[2017-04-07] MEDS: HYOSCYAMINE SOLN 0.125 MG/ML 15 ML BTL G-TUBE SCH ×3 (06:00→17:09)
[2017-04-07] MEDS: FREE WATER G-TUBE SCH ×3 (06:00→22:00)
[2017-04-07] MEDS: CHLORHEXIDINE 0.12% (ORAL KIT) 15 ML CUP MT SCH ×2 (08:00→20:00)
[2017-04-07 08:41] LABS: PROTHROMBIN TIME - PATIENT 22.3 SEC (9.8-11.6)
[2017-04-07] MEDS: carBAMazepine SUSP 200 MG/10 ML UDC PEG SCH ×2 (08:44→22:08)
[2017-04-07] MEDS: levETIRAcetam 500 MG/5 ML UDC NG SCH (08:44)
[2017-04-07] MEDS: SENNOSIDES SYRUP 8.8 MG/5 ML CUP G-TUBE SCH ×2 (08:45→21:00)
[2017-04-07] MEDS: LACTULOSE SYRUP 20 GM/30 ML CUP G-TUBE SCH ×2 (08:46→22:07)
[2017-04-07] MEDS: ASCORBIC ACID 500 MG TAB PEG SCH ×2 (08:47→22:09)
[2017-04-07] MEDS: POTASSIUM CHLORIDE 20 MEQ PWD PACKET NG SCH (08:47)
[2017-04-07] MEDS: FERROUS SULFATE 300 MG /5ML UDC PEG SCH ×2 (08:47→22:08)
[2017-04-07] MEDS: FOLIC ACID 1 MG TAB OG-TUBE SCH (08:48)
[2017-04-07] MEDS: FAMOTIDINE 20 MG TAB NG SCH (08:48)
[2017-04-07] MEDS: SACUBITRIL/VALSARTAN 24 MG-26 MG TAB PEG SCH ×2 (08:48→22:10)
[2017-04-07] MEDS: BROMOCRIPTINE MESYLATE 2.5 MG TAB OG-TUBE SCH (08:48)
[2017-04-07] MEDS: ATORVASTATIN 40 MG TAB G-TUBE SCH (08:48)
[2017-04-07] MEDS: SODIUM CHLORIDE 0.9% FLUSH 10 ML FLUSH IV FLUSH SCH ×2 (08:49→22:09)
[2017-04-07] MEDS: JUVEN POWDER 1 PACK G-TUBE SCH ×2 (08:49→21:00)
[2017-04-07] MEDS: FUROSEMIDE 20 MG/2 ML VIAL IV PUSH SCH (08:50)
[2017-04-07] MEDS: SODIUM HYPOCHLORITE 0.25% 500 ML BTL TOPICAL SCH (09:00)
[2017-04-07] MEDS: INSULIN ASPART SUPPLEMENTAL SCALE SQ SCH ×2 (09:00→21:00)
[2017-04-07] MEDS: POVIDONE IODINE 10% OINT 30 GM TUBE TOPICAL SCH (09:00)
[2017-04-07] MEDS: RESP: IPRATROPIUM 0.5 MG/2.5 ML NEB NEB SCH ×4 (09:23→20:47)
--- NOTE | 2017-04-07 11:53 | HHI.PR ---
Subjective Remarks Follow up on patient with Moyamoya disease s/p bilateral frontal CVA. Patient seen and examined today. Patient with eyes closed. Does not follow commands. Discussed with nursing staff - no acute issues reported. Contacted by wound care nurse yesterday who will come today to evaluate sacral wound. Objective Vitals Vital Signs Date Time Temp Pulse Resp B/P (MAP) Pulse Ox O2 Delivery O2 Flow Rate FiO2 04/07/17 09:24 100 T-piece 4.00 28 04/07/17 09:00 92 T-Piece 5.00 28 04/07/17 08:00 98.4 87 17 122/77 (92) 100 04/07/17 08:00 97.5 58 16 129/67 (87) 98 04/07/17 04:00 98.3 85 20 107/54 (71) 100 04/07/17 04:00 Trach Collar 5.00 28 04/07/17 00:00 98.6 83 18 114/60 (78) 100 04/07/17 00:00 Trach Collar 5.00 28 04/06/17 20:00 78 04/06/17 20:00 Trach Collar 5.00 28 04/06/17 20:00 98.3 84 20 97/59 (72) 98 04/06/17 19:19 100 T-piece 5.00 28 04/06/17 16:00 98.0 80 18 130/69 (89) 100 04/06/17 12:00 98.5 110 18 129/59 (82) 100 I/O 04/06/17 04/06/17 04/06/17 04/07/17 04/07/17 04/07/17 06:59 14:59 22:59 06:59 14:59 22:59 Intake Total 1027 ml 836 ml 350 ml Output Total 300 ml 2600 ml 1200 ml 1150 ml Balance 727 ml -2600 ml -364 ml -800 ml Intake Oral 0 ml Tube Feeding 427 ml 536 ml 150 ml Tube Irrigant 200 ml Other 600 ml 300 ml Output Urine Total 300 ml 2600 ml 1200 ml 1150 ml # Bowel Movements 0 3 0 Result Diagram: 04/05/17 1530 Imaging Last Impressions Chest X-Ray 03/20/17 0000 Signed Impressions: Service Date/Time: Monday, March 20, 2017 11:37 - CONCLUSION: Stable appearance with no acute cardiopulmonary disease. Lenny Kerns MD Abdomen X-Ray 02/11/17 0000 Signed Impressions: Service Date/Time: Saturday, February 11, 2017 17:52 - CONCLUSION: Minimal colonic distention. Kenneth Frost MD FACR Catheter Change 02/10/17 0000 Signed Impressions: Service Date/Time: February 13:47 - CONCLUSION: Uncomplicated fluoroscopic guided gastrostomy tube replacement. Positioning confirmed. The tube can be used immediately. Nghia Pacheco MD Lower Extremity Ultrasound 02/01/17 0000 Signed Impressions: Service Date/Time: Wednesday, February 01, 2017 13:23 - CONCLUSION: Normal examination. Gray Veronica MD Brain MRI 01/06/17 0000 Signed Impressions: Service Date/Time: , January 06, 2017 14:19 - CONCLUSION: Continued evolutionary changes of large bilateral frontal lobe infarcts. Sami Mccarthy MD Objective Remarks GENERAL: WDWN female, lying in hospital bed, INAD. Does not open eyes. Does not follow any commands. Appears comfortable. SKIN: Warm and dry. Per RN, sacral wound foul smelling with necrotic appearing tissue in wound bed. HEENT: Normocephalic. No nasal bleeding or discharge noted. Dry mucus membranes. NECK: Trachea midline. T piece in place with scant secretions noted in tubing. CARDIOVASCULAR: Regular rate and rhythm without murmurs, gallops, or rubs. RESPIRATORY: Coarse BS noted. No accessory muscle use. GASTROINTESTINAL: Abdomen soft, non-tender, nondistended. PEG in place, site unchanged. MUSCULOSKELETAL: No cyanosis. Bilateral SCDs in place. NEUROLOGICAL: Nonverbal. Does not respond to voice or noxious stimulus. No spontaneous movement appreciated. Procedures PEG 11/24/2016 Percutaneous tracheostomy. 11/18/2016 Moderate encephalopathy with suggestion of left temporal region cortical irritability. No active seizures. Clinical correlation. Echocardiogram Severe dilated left ventricle. Wall thickness is normal. The left ventricular systolic function is moderately reduced with an estimated ejection fraction in the range of 35-40%. Doppler parameters are consistent with a restrictive left ventricular filling pattern indicative of decreased left ventricular diastolic compliance and increase left atrial pressure (grade 3 diastolic dysfunction). There is severe tricuspid regurgitation. There is severe pulmonary hypertension present ( > 70 mmHg). Severe mitral valve regurgitation. Medications and IVs Current Medications Medications (Trade) Dose Ordered Sig/Ora Route Start Time Stop Time Status Last Admin (Peridex 0.12% Liq) 15 ml BID@08,20 MT 11/18/16 08:00 04/07/17 08:00 (NS Flush) 2 ml BID IV FLUSH 11/18/16 09:00 04/07/17 08:49 (Morphine Inj) 2 mg Q2H PRN IV 11/18/16 03:30 03/27/17 10:13 (Zofran Inj) 4 mg Q6H PRN IV 11/18/16 03:30 11/26/16 03:20 Miscellaneous Information 1 Q361D XX 11/18/16 03:30 11/18/16 03:30 (Chlorhexidine 2% Cloth) Taper DAILY@04 TOP 11/18/16 04:00 11/14/17 03:59 04/06/17 04:33 (Chlorhexidine 2% Cloth) 3 pack UNSCH PRN TOP 11/18/16 03:30 (Parlodel) 2.5 mg Q12HR OG-TUBE 11/18/16 09:00 04/06/17 21:47 (Folate) 1 mg DAILY OG-TUBE 11/18/16 09:00 04/06/17 11:31 (Dulcolax Supp) 10 mg DAILY PRN RECTAL 12/14/16 15:45 (Pepcid) 20 mg BID NG 12/21/16 21:00 04/06/17 21:47 (TEGretol LIQ) 200 mg Q12HR PEG 01/06/17 09:00 04/07/17 08:44 (Corby Powder) 1 pack BID G-TUBE 01/13/17 09:00 04/07/17 08:49 (Ferrous Sulfate Liq) 300 mg BID PEG 01/26/17 21:00 04/07/17 08:47 (Vitamin C) 500 mg BID PEG 01/26/17 21:00 04/07/17 08:47 (Thornton 5-325 Mg) 1 tab Q4H PRN G-TUBE 02/01/17 11:30 03/25/17 16:36 (Tylenol) 650 mg Q6H PRN G-TUBE 02/01/17 09:30 03/26/17 02:43 (Lipitor) 40 mg DAILY G-TUBE 02/01/17 09:00 04/07/17 08:48 (Senna Liq) 8.8 mg BID G-TUBE 02/01/17 09:00 04/06/17 11:29 (D50w (Vial) Inj) 25 ml UNSCH PRN IV PUSH 02/01/17 09:15 (Glucagon Inj) 1 mg UNSCH PRN OTHER 02/01/17 09:15 (Dakin'S 0.25% Soln) USE DAILY WITH DRESS... DAILY TOPICAL 02/12/17 18:00 04/06/17 09:00 (Betadine 10% Oint) 1 applic DAILY TOPICAL 02/15/17 09:00 04/06/17 09:00 (Lactulose Liq) 30 ml TID G-TUBE 02/21/17 13:00 04/06/17 11:26 (Zaroxolyn) 5 mg DAILY PEG 03/09/17 09:00 Future Hold 04/06/17 11:31 (Entresto 24-26 Mg) 1 tab BID PEG 03/08/17 21:00 04/07/17 08:48 (Free Water) VOLUME OF WATER: ( 300 ) ML Q8HR G-TUBE 03/09/17 14:00 04/07/17 06:00 (Levsin Liq) 0.125 mg Q6H G-TUBE 03/10/17 18:00 04/07/17 06:00 (Lasix Inj) 20 mg DAILY IV PUSH 03/16/17 11:30 04/07/17 08:50 (KCl Powder) 20 meq DAILY NG 03/17/17 09:00 04/06/17 09:00 (NovoLOG SUPPLEMENTAL SCALE) 1 BID SQ 03/20/17 21:00 03/22/17 22:04 (Albuterol Neb) 0.63 mg Q4HR NEB PRN NEB 03/21/17 09:15 (Atrovent Neb) 0.5 mg QID NEB NEB 03/21/17 12:00 04/07/17 09:23 (Keppra Liq) 1,000 mg Q12HR NG 03/21/17 21:00 04/07/17 08:44 (Lopressor) 50 mg Q6HR G-TUBE 03/27/17 18:00 04/06/17 18:31 (Coumadin) 7.5 mg DAILY@16 PO 04/05/17 16:00 04/06/17 16:42 Pharmacy Profile Note 0 ml @ 0 mls/hr UNSCH OTHER 04/05/17 14:45 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 Status: Acute (2) Seizure ICD Code: R56.9 - Unspecified convulsions Status: Acute (3) CVA (cerebral vascular accident) ICD Code: I63.9 - Cerebral infarction, unspecified Status: Acute (4) Respiratory failure, acute ICD Code: J96.00 - Acute respiratory failure, unspecified whether with hypoxia or hypercapnia Status: Acute (5) COPD (chronic obstructive pulmonary disease) ICD Code: J44.9 - Chronic obstructive pulmonary disease, unspecified Status: Chronic (6) Acute hypernatremia ICD Code: E87.0 - Hyperosmolality and hypernatremia Status: Resolved (7) Microcytic anemia ICD Code: D50.9 - Iron deficiency anemia, unspecified Assessment and Plan Ms. Rivas is a 66-year-old female with a history of stroke who was admitted to the [facility] on 11/04/2016 due to difficulty getting her thoughts together. She was found to have multifocal nonhemorrhagic infarctions in the frontal and parietal regions. She was initially awake and following commands with weakness of RLE and some aphasia. She was transferred to [facility] where he had an cerebral angiogram consistent with moyamoya. There were plans to perform extracranial/intracranial bypass. However, she had a seizure and ended up being intubated for status epilepticus 11/09 or 11/10. She was found to have a new right frontal infarct area and she was started on Dilantin and Keppra and it was felt that she would not be a candidate for intervention. She has since undergone PEG placement. Apparently family requested transfer back to [place] because they live locally and wanted her closer to home. Patient remained under critical care medicine until 12/24/2016. Viridans strep bacteremia - resolved - ID following. Per ID, sputum cx with GNR and staph aureus ? colonization. Urine with Kleb pneumo and E Coli ? colonization - Repeat blood cx 03/23 shows no growth in 5 days. 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 at [facility] October 2016 Seizure disorder - Continue Keppra 1000mg BID - Continue Tegretol 200mg q 12h - Follow for seizure activity - no recent seizure activity noted - Continue Bromocriptine - Keppra level 10.2 03/14. Obtain new level - pending - Tegretol level 7.1 03/31 Hyperammonemia - trending down - continue Lactulose 30mg BID - continue to monitor ammonia level as indicated Hyponatremia - possible secondary to Tegretol - improved Mixed systolic and diastolic heart failure, stable - echocardiogram 02/02/17 shows EF 35-40%, grade 3 diastolic dysfunction, severe tricuspid regurgitation, severe pulmonary HTN and severe mitral valve regurgitation. - continue Lasix 20mg daily - continue on Entresto - monitor electrolytes and renal function - monitor for s/sxs of fluid overload Chronic respiratory failure COPD Multilobar pneumonia, resolved - Pulmonary medicine following, appreciate assistance - Status post tracheostomy on 11/24/2016. Currently on T piece. Continue on Levsin prn for secretions. - completed antibiotic course with Tobramycin, course ended on 01/20/17. - Continue DuoNebs when necessary - supplement O2 to keep O2 sats > 90% Atrial fibrillation plus recent SVT - Cardiology following, stable - rate controlled - Continue Metoprolol 25mg q12hr and Coumadin - confirmed with Dr. Flores patient to continue Coumadin WITHOUT ASA. - INR 2.0. Pharmacy to dose. Continue to monitor INR. Anasarca - Continue Lasix 20 mg IV daily Dysphagia Hypoalbuminemia - s/p PEG placement - continue Jevity 1.5 through PEG tube with Corby supplementation. - Continue TF continuous 60ml per hour New onset DM - HgbA1c 6.5 - continue with accucheks and ISS - BS controlled Sacral/Coccyx wound - Specialty bed ordered, continue - Wound care following - per their last note 03/30, improving wound when compared to last. Recommend to continue betadine moistened gauze packing with dry cover for one more week and then patient will be reassessed for alternative dressings. RN reports today that wound is much more foul smelling with necrotic appearing tissue in wound bed. Will reconsult wound care for their assessment/recommendations - discussed with Stephany vending machine refiller, she will assess wound today - continue frequent turning/off loading Q2H Anemia, microcytic, hypochromic - stable - iron studies-iron 33, TIBC 307, % sat 10.8, ferritin 346. Continue iron supplementation. - stool hemoccult negative - monitor intermittently GI Prophylaxis: Pepcid. DVT prophylaxis: SCDs. Coumadin. Full code. Discussed with nursing staff and Dr. Packer Discharge Planning Patient will need long-term care facility. CM continuing to seek placement. Last CM note:02/22/17- No accepting facility at this time. Barrier: payer is Medicaid and pt is too expensive with PEG and trach. Possibly can be placed with one or the other but not both. Tova March Apr 07, 2017 11:53
--- NOTE | 2017-04-07 13:28 | PD.CARD.PN ---
Subjective Subjective Remarks No change, remains unresponsive Objective Medications Active Medications Bromocriptine Mesylate (Parlodel) 2.5 mg Q12HR PEG; Start 04/07/17 at 21:00; Status UNV Famotidine (Pepcid) 20 mg BID PEG; Start 04/07/17 at 21:00; Status UNV Folic Acid (Folate) 1 mg DAILY PEG; Start 04/08/17 at 09:00; Status UNV Lactulose (Lactulose Liq) 30 ml BID G-TUBE; Start 04/07/17 at 21:00; Status UNV Levetriacetam (Keppra Liq) 1,000 mg Q12HR PEG; Start 04/07/17 at 21:00; Status UNV Potassium Chloride (KCl Powder) 20 meq DAILY PEG; Start 04/08/17 at 09:00; Status UNV Warfarin Sodium (Coumadin) 7.5 mg DAILY@16 PEG; Start 04/07/17 at 16:00; Status UNV Vital Signs / I&O Vital Signs Date Time Temp Pulse Resp B/P (MAP) Pulse Ox O2 Delivery O2 Flow Rate FiO2 04/07/17 12:00 100 T-Piece 5.00 28 04/07/17 12:00 97.8 93 17 128/61 (83) 100 04/07/17 09:24 100 T-piece 4.00 28 04/07/17 09:00 92 T-Piece 5.00 28 04/07/17 08:00 98.4 87 17 122/77 (92) 100 04/07/17 08:00 97.5 58 16 129/67 (87) 98 04/07/17 04:00 98.3 85 20 107/54 (71) 100 04/07/17 04:00 Trach Collar 5.00 28 04/07/17 00:00 98.6 83 18 114/60 (78) 100 04/07/17 00:00 Trach Collar 5.00 28 04/06/17 20:00 78 04/06/17 20:00 Trach Collar 5.00 28 04/06/17 20:00 98.3 84 20 97/59 (72) 98 04/06/17 19:19 100 T-piece 5.00 28 04/06/17 16:00 98.0 80 18 130/69 (89) 100 I/O 04/06/17 04/06/17 04/06/17 04/07/17 04/07/17 04/07/17 07:00 15:00 23:00 07:00 15:00 23:00 Intake Total 1027 ml 836 ml 350 ml Output Total 300 ml 2600 ml 1200 ml 1150 ml Balance 727 ml -2600 ml -364 ml -800 ml Intake Oral 0 ml Tube Feeding 427 ml 536 ml 150 ml Tube Irrigant 200 ml Other 600 ml 300 ml Output Urine Total 300 ml 2600 ml 1200 ml 1150 ml # Bowel Movements 0 3 0 Physical Exam GENERAL: In NAD SKIN: Warm and dry. HEAD: Normocephalic. EYES: No scleral icterus. No injection or drainage. NECK: Supple, trachea midline. No JVD or lymphadenopathy. Trach in place CARDIOVASCULAR: Regular rate and rhythm without murmurs, gallops, or rubs. RESPIRATORY: Breath sounds equal bilaterally. No accessory muscle use. GASTROINTESTINAL: Abdomen soft, non-tender, nondistended. MUSCULOSKELETAL: No cyanosis, or edema. Laboratory Laboratory Tests Test 04/07/17 08:13 Prothrombin Time 22.3 SEC Prothromb Time International Ratio 2.0 RATIO Assessment and Plan Problem List: (1) Narrow complex tachycardia ICD Codes: I47.1 - Supraventricular tachycardia Status: Acute (2) CVA (cerebral vascular accident) ICD Codes: I63.9 - Cerebral infarction, unspecified Status: Acute (3) Seizure ICD Codes: R56.9 - Unspecified convulsions Status: Acute (4) Moyamoya disease ICD Codes: I67.5 - Moyamoya disease Status: Acute (5) Encephalopathy ICD Codes: G93.40 - Encephalopathy, unspecified Status: Acute (6) Accelerated essential hypertension ICD Codes: I10 - Accelerated essential hypertension Status: Acute (7) Respiratory failure, acute ICD Codes: J96.00 - Acute respiratory failure, unspecified whether with hypoxia or hypercapnia Status: Acute Assessment and Plan No new cardiac issues. Telemetry with no recent arrhythmias. Continue current program including metoprolol. No change in neurologic status. Remains stable from cardiac standpoint. Klaus Panchal MD Apr 07, 2017 13:28
--- NOTE | 2017-04-07 13:42 | PD.WCN.NOT ---
Wound Consult Description: Stage IV Sacral Wound Communicated with: MADISYN Lopez PA Carolyn, RN Recommendation: Apply nickel thick Santyl to necrotic tissue in wound bed prior to packing with Quarter strength Dakins moist to dry gauze dressing. Additional Information: Patient seen on for re-evaluation of sacral wound with ANDRE Dacosta and PERLA Cuellar. Tube feed placed on hold prior to lowering head of bed and positioning patient to her right side for assessment. Dressing and packing removed from sacrum wound. Sacral wound visualized after cleansing and noted with ~40% vascular muscle tissue ~40% loosely adherent montemayor slough and ~20% sharp bone. Wound measures 5cm x 4cm x 4cm with undermining from 9-3 o'clock with deepest noted from 12-1 o'clock of 5cm. Wound is malodorous with minimal sanguinous drainage noted. Wound margins are epiboled @ 9 o'clock and open from 10- 8 o'clock. Periwound is blanching discoloration with partial thickness skinloss noted from 11-12 measuring ~1cm. Rolled gauze was moistened with Povodine-Iodine and gently inserted into wound bed. Periwound was covered in thick application of Calazime skin protectant and then the entire area was covered and secured with an ABD pad. Heels were visualized after removing SCD's and heel raiser boots and noted to be unremarkable. Patient was repositioned to her right side with assistance from PERLA Cuellar and patients head of bed raised per protocol for restarting tube feed. Stephany Fang [facility] Apr 07, 2017 13:42
[2017-04-07] MEDS ORDERED: WARFARIN SOD 7.5 MG TAB PEG SCH (16:00)
[2017-04-07] MEDS: COLLAGENASE OINT 30 GM TUBE TOPICAL SCH (16:30)
--- NOTE | 2017-04-07 18:53 | HHI.PR ---
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 Mod amount of trach secretions Objective Vital Signs Vital Signs Date Time Temp Pulse Resp B/P (MAP) Pulse Ox O2 Delivery O2 Flow Rate FiO2 04/07/17 16:00 100 T-Piece 4.00 28 04/07/17 16:00 98.1 99 17 124/61 (82) 100 04/07/17 15:51 98 T-piece 4.00 28 04/07/17 12:00 100 T-Piece 5.00 28 04/07/17 12:00 97.8 93 17 128/61 (83) 100 04/07/17 09:24 100 T-piece 4.00 28 04/07/17 09:00 92 T-Piece 5.00 28 04/07/17 08:00 98.4 87 17 122/77 (92) 100 04/07/17 04:00 98.3 85 20 107/54 (71) 100 04/07/17 04:00 Trach Collar 5.00 28 04/07/17 00:00 98.6 83 18 114/60 (78) 100 04/07/17 00:00 Trach Collar 5.00 28 04/06/17 20:00 78 04/06/17 20:00 Trach Collar 5.00 28 04/06/17 20:00 98.3 84 20 97/59 (72) 98 04/06/17 19:19 100 T-piece 5.00 28 I/O 04/06/17 04/06/17 04/06/17 04/07/17 04/07/17 04/07/17 07:00 15:00 23:00 07:00 15:00 23:00 Intake Total 1027 ml 836 ml 350 ml 614 ml Output Total 300 ml 2600 ml 1200 ml 1150 ml 450 ml Balance 727 ml -2600 ml -364 ml -800 ml 164 ml Intake Oral 0 ml Tube Feeding 427 ml 536 ml 150 ml 364 ml Tube Irrigant 200 ml 250 ml Other 600 ml 300 ml Output Urine Total 300 ml 2600 ml 1200 ml 1150 ml 450 ml # Bowel Movements 0 3 0 Result Diagram: 04/05/17 1530 Objective Remarks GENERAL: MBMN WF, on Trach collar SKIN: Warm and dry. HEAD: Normocephalic. EYES: No scleral icterus. No injection or drainage. NECK: Supple, trachea midline. No JVD or lymphadenopathy. has trach CARDIOVASCULAR: Regular rate and rhythm without murmurs, gallops, or rubs. RESPIRATORY: Breath sounds equal bilaterally. No accessory muscle use. GASTROINTESTINAL: Abdomen soft, non-tender, nondistended. has PEG MUSCULOSKELETAL: No cyanosis, or edema. BACK: Nontender without obvious deformity. No CVA tenderness. A/P Assessment and Plan RF, S/P Trach CVA Arango arango disease CAD COPD SZ disorder PLAN: Aerosol nebs Cont trach collar supplement 02, keep sat >90%. TF Cont Levsin.prn Vernon Catalan RN, MD Apr 07, 2017 18:53
[2017-04-07] MEDS: levETIRAcetam 500 MG/5 ML UDC PEG SCH (22:08)
[2017-04-07] MEDS: BROMOCRIPTINE MESYLATE 2.5 MG TAB PEG SCH (22:08)
[2017-04-07] MEDS: ACETAMINOPHEN 325 MG TAB G-TUBE PRN (22:09)
[2017-04-07] MEDS: FAMOTIDINE 20 MG TAB PEG SCH (22:09)
[2017-04-08] VITALS (9 sets, daily range): BP systolic 100–123; BP diastolic 51–69; PULSE 79–98; RESP 16–20; TEMP 96.5–98.9; O2SAT 96–100
[2017-04-08] MEDS: CHLORHEXIDINE GLUCONATE 2 % 1 PACK (2 CLOTHS) TOP SCH (04:00)
[2017-04-08] MEDS: FREE WATER G-TUBE SCH ×3 (06:00→22:00)
[2017-04-08] MEDS: METOPROLOL TARTRATE 25 MG TAB G-TUBE SCH ×4 (06:00→18:37)
[2017-04-08] MEDS: HYOSCYAMINE SOLN 0.125 MG/ML 15 ML BTL G-TUBE SCH ×4 (06:00→18:38)
[2017-04-08] MEDS: RESP: IPRATROPIUM 0.5 MG/2.5 ML NEB NEB SCH ×4 (07:51→19:19)
[2017-04-08] MEDS: CHLORHEXIDINE 0.12% (ORAL KIT) 15 ML CUP MT SCH ×2 (08:00→20:00)
--- NOTE | 2017-04-08 08:54 | HHI.PR ---
Subjective Remarks Ms. Rivas is a 66-year-old female with a history of stroke who was admitted to the [facility] on 11/04/2016 due to difficulty getting her thoughts together. She was found to have multifocal nonhemorrhagic infarctions in the frontal and parietal regions. She was initially awake and following commands with weakness of RLE and some aphasia. She was transferred to [facility] where he had an cerebral angiogram consistent with moyamoya. There were plans to perform extracranial/intracranial bypass. However she had a seizure and ended up being intubated for status either 4/ or 4/.. She was found to have a new right frontal infarct area and she was started on Dilantin and Keppra and it was felt that she would not be a candidate for intervention. She has been intubated 9-10 days and apparently she has been tolerating C Pap trials to some extent but mental status prevents extubation. Treating team was discussing with family trach/PEG. Apparently family requested transfer back to [place] because they live locally here and wanted her closer to home. Patient remained under critical care medicine until 12/24/2016. Follow up on patient with Moyamoya disease s/p bilateral frontal CVA. Patient seen and examined today. does not follow commands, non verbal, discussed with nurse Miss Wright no new complaint continue with PEG in place, Brown Cath, Decubitus ulcer on wound care, Tracheostomy in place. Objective Vital Signs Date Time Temp Pulse Resp B/P (MAP) Pulse Ox O2 Delivery O2 Flow Rate FiO2 04/08/17 07:53 100 T-piece 28 04/08/17 04:00 Trach Collar 4.00 28 04/08/17 04:00 98.7 80 17 100/51 (67) 98 04/08/17 00:00 98.6 90 16 119/59 (79) 96 04/08/17 00:00 Trach Collar 4.00 28 04/07/17 20:49 97 T-piece 28 04/07/17 20:49 97 T-piece 28 04/07/17 20:45 99.0 90 17 114/56 (75) 97 04/07/17 20:00 87 04/07/17 20:00 Trach Collar 4.00 28 04/07/17 16:00 100 T-Piece 4.00 28 04/07/17 16:00 98.1 99 17 124/61 (82) 100 04/07/17 15:51 98 T-piece 4.00 28 04/07/17 12:00 100 T-Piece 5.00 28 04/07/17 12:00 97.8 93 17 128/61 (83) 100 04/07/17 09:24 100 T-piece 4.00 28 04/07/17 09:00 92 T-Piece 5.00 28 I/O 04/07/17 04/07/17 04/07/17 04/08/17 04/08/17 04/08/17 07:00 15:00 23:00 07:00 15:00 23:00 Intake Total 836 ml 350 ml 614 ml 1169 ml Output Total 1200 ml 1150 ml 450 ml 550 ml Balance -364 ml -800 ml 164 ml 619 ml Intake Oral 0 ml Tube Feeding 536 ml 150 ml 364 ml 569 ml Tube Irrigant 200 ml 250 ml Other 300 ml 600 ml Output Urine Total 1200 ml 1150 ml 450 ml 550 ml # Bowel Movements 0 Result Diagram: 04/05/17 1530 Imaging Last Impressions Chest X-Ray 03/20/17 0000 Signed Impressions: Service Date/Time: Monday, March 20, 2017 11:37 - CONCLUSION: Stable appearance with no acute cardiopulmonary disease. Lenny Kerns MD Abdomen X-Ray 02/11/17 0000 Signed Impressions: Service Date/Time: Saturday, February 11, 2017 17:52 - CONCLUSION: Minimal colonic distention. Kenneth Frost MD FACR Catheter Change 02/10/17 0000 Signed Impressions: Service Date/Time: February 13:47 - CONCLUSION: Uncomplicated fluoroscopic guided gastrostomy tube replacement. Positioning confirmed. The tube can be used immediately. Nghia Pacheco MD Lower Extremity Ultrasound 02/01/17 0000 Signed Impressions: Service Date/Time: Wednesday, February 01, 2017 13:23 - CONCLUSION: Normal examination. 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 Sami Mccarthy MD Procedures 11/24/2016 Percutaneous tracheostomy. Other Results Laboratory Tests Test 11/17/16 23:30 11/18/16 04:09 11/18/16 04:35 11/29/16 10:45 Nasal Screen MRSA (PCR) NEGATIVE Blood Gas Puncture Site RT RADIAL Blood Gas Patient Temperature 98.6 Blood Gas HCO3 29 mmol/L Blood Gas Base Excess 4.7 mmol/L Blood Gas Oxygen Saturation 97 % Arterial Blood pH 7.47 Arterial Blood Partial Pressure CO2 40 mmHg Arterial Blood Partial Pressure O2 146 mmHg Arterial Blood Oxygen Content 12.5 Vol % Arterial Blood Carboxyhemoglobin 1.6 % Arterial Blood Methemoglobin 0.8 % Blood Gas Hemoglobin 9.0 G/DL Oxygen Delivery Device VENTILATOR Blood Gas Ventilator Setting AC 10/450/PEEP5 Blood Gas Inspired Oxygen 40 % Phenytoin (Dilantin) Level 1.4 MCG/ML Urine Squamous Epithelial Cells 1 /hpf Urine Transitional Epithelial Cells <1 /hpf Urine Calcium Oxalate Crystals RARE /hpf Urine Hyaline Casts 4 /lpf Test 12/18/16 05:52 12/20/16 22:39 01/09/17 15:19 01/09/17 21:00 Differential Total Cells Counted 100 Neutrophils % (Manual) 56 % Band Neutrophils % 4 % Lymphocytes % 23 % Monocytes % 12 % Eosinophils % 3 % Basophils % 2 % Neutrophils # (Manual) 5.0 TH/MM3 Platelet Estimate HIGH Platelet Morphology Comment NORMAL Vancomycin Level Trough 12.4 MCG/ML Procalcitonin 0.34 ng/mL Urine Eosinophils NONE SEEN /HPF Test 01/25/17 14:48 01/25/17 18:25 01/28/17 08:59 02/01/17 13:12 Iron Level 33 MCG/DL Total Iron Binding Capacity 307 MCG/DL Percent Iron Saturation 10.8 % Ferritin 346 NG/ML Urine Mucus FEW /lpf Blood Urea Nitrogen 23 MG/DL Creatinine 0.40 MG/DL Random Glucose 151 MG/DL Calcium Level 8.4 MG/DL Phosphorus Level 3.0 MG/DL Magnesium Level 2.1 MG/DL Sodium Level 133 MEQ/L Potassium Level 3.5 MEQ/L Chloride Level 96 MEQ/L Carbon Dioxide Level 27.6 MEQ/L Activated Partial Thromboplast Time 34.5 SEC B-Type Natriuretic Peptide 689 PG/ML Test 02/18/17 21:30 02/19/17 16:35 03/15/17 13:30 03/15/17 16:35 Stool C. difficile Toxin (PCR) NEGATIVE Stl C. difficile Toxin Epiderm 027 PRESUMPTIVE NEGATIVE Hematology Comments Serum Osmolality 343 MOSM/KG Urine Osmolality 385 MOSM/KG Test 03/16/17 16:26 03/19/17 14:25 03/21/17 02:35 03/27/17 04:18 Hemoglobin A1c 6.5 % Urine Color YELLOW Urine Turbidity CLEAR Urine pH 7.0 Urine Specific [place] 1.026 Urine Protein 30 mg/dL Urine Glucose (UA) NEG mg/dL Urine Ketones NEG mg/dL Urine Occult Blood NEG Urine Nitrite NEG Urine Bilirubin NEG Urine Urobilinogen 4.0 MG/DL Urine Leukocyte Esterase MOD Urine RBC 4 /hpf Urine WBC 19 /hpf Urine Bacteria RARE /hpf Microscopic Urinalysis Comment CATH-CULTURE IND Total Bilirubin 0.5 MG/DL Direct Bilirubin 0.3 MG/DL Indirect Bilirubin 0.2 MG/DL Aspartate Amino Transf (AST/SGOT) 42 U/L Alanine Aminotransferase (ALT/SGPT) 39 U/L Alkaline Phosphatase 157 U/L Total Protein 7.8 GM/DL Albumin 2.7 GM/DL Free Thyroxine 1.25 NG/DL Thyroid Stimulating Hormone 3rd Gen 4.720 uIU/ML Neutrophils (%) (Auto) 66.5 % Lymphocytes (%) (Auto) 20.2 % Monocytes (%) (Auto) 9.7 % Eosinophils (%) (Auto) 2.6 % Basophils (%) (Auto) 1.0 % Neutrophils # (Auto) 5.8 TH/MM3 Lymphocytes # (Auto) 1.8 TH/MM3 Monocytes # (Auto) 0.9 TH/MM3 Eosinophils # (Auto) 0.2 TH/MM3 Basophils # (Auto) 0.1 TH/MM3 CBC Comment DIFF FINAL Differential Comment Test 03/27/17 14:08 03/31/17 07:40 04/01/17 07:01 04/05/17 15:30 Fasting Glucose 107 MG/DL Magnesium Level 2.3 MG/DL Ammonia 22 MCMOL/L Carbamazepine (Tegretol) Level 7.1 MCG/ML White Blood Count 10.6 TH/MM3 Red Blood Count 3.91 MIL/MM3 Hemoglobin 8.9 GM/DL Hematocrit 29.4 % Mean Corpuscular Volume 75.3 FL Mean Corpuscular Hemoglobin 22.8 PG Mean Corpuscular Hemoglobin Concent 30.3 % Red Cell Distribution Width 20.2 % Platelet Count 593 TH/MM3 Mean Platelet Volume 7.5 FL Blood Urea Nitrogen 17 MG/DL Creatinine 0.39 MG/DL Random Glucose 116 MG/DL Calcium Level 8.7 MG/DL Sodium Level 137 MEQ/L Potassium Level 4.1 MEQ/L Chloride Level 97 MEQ/L Carbon Dioxide Level 30.3 MEQ/L Anion Gap 10 MEQ/L Estimat Glomerular Filtration Rate 165 ML/MIN Levetiracetam (Keppra) Level 25.3 mcg/mL Test 04/07/17 08:13 Prothrombin Time 22.3 SEC Prothromb Time International Ratio 2.0 RATIO Objective Remarks GENERAL: does not respond to verbal commands. Currently on T piece. SKIN: Warm and dry. HEAD: Normocephalic. EYES: No scleral icterus. No injection or drainage. NECK: Supple, trachea midline. No JVD or lymphadenopathy. CARDIOVASCULAR: Regular rhythm, tachycardic without murmurs, gallops, or rubs. RESPIRATORY: Breath sounds equal bilaterally. No accessory muscle use. GASTROINTESTINAL: Abdomen soft, obese, non-tender, nondistended. PEG tube in place. MUSCULOSKELETAL: No cyanosis, or edema. Medications and IVs Current Medications Medications (Trade) Dose Ordered Sig/Ora Route Start Time Stop Time Status Last Admin (Peridex 0.12% Liq) 15 ml BID@08,20 MT 11/18/16 08:00 04/07/17 20:00 (NS Flush) 2 ml BID IV FLUSH 11/18/16 09:00 04/07/17 22:09 (Morphine Inj) 2 mg Q2H PRN IV 11/18/16 03:30 03/27/17 10:13 (Zofran Inj) 4 mg Q6H PRN IV 11/18/16 03:30 11/26/16 03:20 Miscellaneous Information 1 Q361D XX 11/18/16 03:30 11/18/16 03:30 (Chlorhexidine 2% Cloth) Taper DAILY@04 TOP 11/18/16 04:00 11/14/17 03:59 04/06/17 04:33 (Chlorhexidine 2% Cloth) 3 pack UNSCH PRN TOP 11/18/16 03:30 (Dulcolax Supp) 10 mg DAILY PRN RECTAL 12/14/16 15:45 (TEGretol LIQ) 200 mg Q12HR PEG 01/06/17 09:00 04/07/17 22:08 (Corby Powder) 1 pack BID G-TUBE 01/13/17 09:00 04/07/17 21:00 (Ferrous Sulfate Liq) 300 mg BID PEG 01/26/17 21:00 04/07/17 22:08 (Vitamin C) 500 mg BID PEG 01/26/17 21:00 04/07/17 22:09 ([place] 5-325 Mg) 1 tab Q4H PRN G-TUBE 02/01/17 11:30 03/25/17 16:36 (Tylenol) 650 mg Q6H PRN G-TUBE 02/01/17 09:30 04/07/17 22:09 (Lipitor) 40 mg DAILY G-TUBE 02/01/17 09:00 04/07/17 08:48 (Senna Liq) 8.8 mg BID G-TUBE 02/01/17 09:00 04/07/17 21:00 (D50w (Vial) Inj) 25 ml UNSCH PRN IV PUSH 02/01/17 09:15 (Glucagon Inj) 1 mg UNSCH PRN OTHER 02/01/17 09:15 (Dakin'S 0.25% Soln) USE DAILY WITH DRESS... DAILY TOPICAL 02/12/17 18:00 04/06/17 09:00 (Betadine 10% Oint) 1 applic DAILY TOPICAL 02/15/17 09:00 04/06/17 09:00 (Zaroxolyn) 5 mg DAILY PEG 03/09/17 09:00 Future Hold 04/06/17 11:31 (Entresto 24-26 Mg) 1 tab BID PEG 03/08/17 21:00 04/07/17 22:10 (Free Water) VOLUME OF WATER: ( 300 ) ML Q8HR G-TUBE 03/09/17 14:00 04/08/17 06:00 (Levsin Liq) 0.125 mg Q6H G-TUBE 03/10/17 18:00 04/08/17 06:00 (Lasix Inj) 20 mg DAILY IV PUSH 03/16/17 11:30 04/07/17 08:50 (NovoLOG SUPPLEMENTAL SCALE) 1 BID SQ 03/20/17 21:00 03/22/17 22:04 (Albuterol Neb) 0.63 mg Q4HR NEB PRN NEB 03/21/17 09:15 (Atrovent Neb) 0.5 mg QID NEB NEB 03/21/17 12:00 04/08/17 07:51 (Lopressor) 50 mg Q6HR G-TUBE 03/27/17 18:00 04/07/17 17:10 Pharmacy Profile Note 0 ml @ 0 mls/hr UNSCH OTHER 04/05/17 14:45 (Parlodel) 2.5 mg Q12HR PEG 04/07/17 21:00 04/07/17 22:08 (Pepcid) 20 mg BID PEG 04/07/17 21:00 04/07/17 22:09 (Folate) 1 mg DAILY PEG 04/08/17 09:00 (Lactulose Liq) 30 ml BID G-TUBE 04/07/17 21:00 04/07/17 22:07 (Keppra Liq) 1,000 mg Q12HR PEG 04/07/17 21:00 04/07/17 22:08 (KCl Powder) 20 meq DAILY PEG 04/08/17 09:00 (Coumadin) 7.5 mg DAILY@16 PEG 04/07/17 16:00 04/07/17 16:28 (Santyl Oint) 1 applic DAILY TOPICAL 04/07/17 16:30 A/P Assessment and Plan Viridans strep bacteremia - resolved - ID following. Per ID, sputum cx with GNR and staph aureus ? colonization. Urine with Kleb pneumo and E Coli ? colonization - Repeat blood cx 03/23 shows no growth in 5 days. 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 at [facility] October 2016 Seizure disorder - Continue Keppra 1000mg BID - Continue Tegretol 200mg q 12h - Follow for seizure activity - no recent seizure activity noted - Continue Bromocriptine - Keppra level 10.2 03/14. Obtain new level - pending - Tegretol level 7.1 03/31 Hyperammonemia - trending down - continue Lactulose 30mg BID - continue to monitor ammonia level as indicated Hyponatremia - possible secondary to Tegretol - improved Mixed systolic and diastolic heart failure, stable - echocardiogram 02/02/17 shows EF 35-40%, grade 3 diastolic dysfunction, severe tricuspid regurgitation, severe pulmonary HTN and severe mitral valve regurgitation. - continue Lasix 20mg daily - continue on Entresto - monitor electrolytes and renal function - monitor for s/sxs of fluid overload Chronic respiratory failure COPD Multilobar pneumonia, resolved - Pulmonary medicine following, appreciate assistance - Status post tracheostomy on 11/24/2016. Currently on T piece. Continue on Levsin prn for secretions. - completed antibiotic course with Tobramycin, course ended on 01/20/17. - Continue DuoNebs when necessary - supplement O2 to keep O2 sats > 90% Atrial fibrillation plus recent SVT - Cardiology following, stable - rate controlled - Continue Metoprolol 25mg q12hr and Coumadin - confirmed with Dr. Flores patient to continue Coumadin WITHOUT ASA. - INR 2.0. Pharmacy to dose. Continue to monitor INR. Anasarca - Continue Lasix 20 mg IV daily Dysphagia Hypoalbuminemia - s/p PEG placement - continue Jevity 1.5 through PEG tube with Corby supplementation. - Continue TF continuous 60ml per hour New onset DM - HgbA1c 6.5 - continue with accucheks and ISS - BS controlled Sacral/Coccyx wound - Specialty bed ordered, continue - Wound care following - per their last note 03/30, improving wound when compared to last. Recommend to continue betadine moistened gauze packing with dry cover for one more week and then patient will be reassessed for alternative dressings. RN reports today that wound is much more foul smelling with necrotic appearing tissue in wound bed. Will reconsult wound care for their assessment/recommendations - discussed with Stephany clipper machine operator, she will assess wound today - continue frequent turning/off loading Q2H Anemia, microcytic, hypochromic - stable - iron studies-iron 33, TIBC 307, % sat 10.8, ferritin 346. Continue iron supplementation. - stool hemoccult negative - monitor intermittently GI Prophylaxis: Pepcid. DVT prophylaxis: SCDs. Coumadin. Full code. Discharge Planning Last CM note:02/22/17- No accepting facility at this time. Barrier: payer is Medicaid and pt is too expensive with PEG and trach. Possibly can be placed with one or the other but not both. Adrian Chang MD Apr 08, 2017 08:54
[2017-04-08] MEDS: INSULIN ASPART SUPPLEMENTAL SCALE SQ SCH ×2 (09:00→21:00)
[2017-04-08] MEDS: POVIDONE IODINE 10% OINT 30 GM TUBE TOPICAL SCH (09:00)
[2017-04-08] MEDS: SODIUM HYPOCHLORITE 0.25% 500 ML BTL TOPICAL SCH (09:00)
--- NOTE | 2017-04-08 09:51 | PD.PLAS.PN ---
Subjective Remarks Patient being reevaluated today for stage 4 sacral pressure ulcer. No change in overall condition. She is being followed by law clerk. Objective Vital Signs Date Time Temp Pulse Resp B/P (MAP) Pulse Ox O2 Delivery O2 Flow Rate FiO2 04/08/17 07:53 100 T-piece 28 04/08/17 04:00 Trach Collar 4.00 28 04/08/17 04:00 98.7 80 17 100/51 (67) 98 04/08/17 00:00 98.6 90 16 119/59 (79) 96 04/08/17 00:00 Trach Collar 4.00 28 04/07/17 20:49 97 T-piece 28 04/07/17 20:49 97 T-piece 28 04/07/17 20:45 99.0 90 17 114/56 (75) 97 04/07/17 20:00 87 04/07/17 20:00 Trach Collar 4.00 28 04/07/17 16:00 100 T-Piece 4.00 28 04/07/17 16:00 98.1 99 17 124/61 (82) 100 04/07/17 15:51 98 T-piece 4.00 28 04/07/17 12:00 100 T-Piece 5.00 28 04/07/17 12:00 97.8 93 17 128/61 (83) 100 I/O 04/07/17 04/07/17 04/07/17 04/08/17 04/08/17 04/08/17 06:59 14:59 22:59 06:59 14:59 22:59 Intake Total 836 ml 350 ml 614 ml 1169 ml Output Total 1200 ml 1150 ml 450 ml 550 ml Balance -364 ml -800 ml 164 ml 619 ml Intake Oral 0 ml Tube Feeding 536 ml 150 ml 364 ml 569 ml Tube Irrigant 200 ml 250 ml Other 300 ml 600 ml Output Urine Total 1200 ml 1150 ml 450 ml 550 ml # Bowel Movements 0 Date/Time Source Procedure Growth Status 03/23/17 05:40 Blood Peripheral Aerobic Blood Culture - Final NO GROWTH IN 5 DAYS Complete 03/23/17 05:40 Blood Peripheral Anaerobic Blood Culture - Final NO GROWTH IN 5 DAYS Complete 01/27/17 02:00 Stool Stool Stool Occult Blood (SHERYL) - Final HEMOCCULT NEGATIVE Complete 03/21/17 02:40 Sputum Endotracheal Gram Stain - Final Complete 03/21/17 02:40 Sputum Culture - Final Pseudomonas Aeruginosa Staphylococcus Aureus Complete 03/19/17 14:25 Urine Catheterized Urine Urine Culture - Final Klebsiella Pneumoniae Enterococcus Faecalis Complete Result Diagram: 04/05/17 1530 Exam Findings See WOCN note for wound measurements. Wound bed mostly clean with some areas of herrera necrotic tissue. Bone is palpable. There is no cellulitis to periwound skin, no evidence of infection. Strong foul odor from wound. Assessment and Plan Diagnosis: (1) Pressure ulcer of sacral region, stage 4 ICD Codes: L89.154 - Pressure ulcer of sacral region, stage 4 Status: Acute Assessment and Plan Wound is repacked with Dakin's soaked gauze. RN is advised that Santyl was ordered and should be applied today. New daily dressing protocol should include cleansing the wound with gauze and dakin's solutions, then applying a nickel-thick portion of santyl to the entire wound bed, then packing with dakin' s soaked gauze. This should be covered with ABD and secured with tape. Yuliana Lopez Apr 08, 2017 09:51
[2017-04-08] MEDS: JUVEN POWDER 1 PACK G-TUBE SCH ×2 (10:04→21:00)
[2017-04-08] MEDS: FOLIC ACID 1 MG TAB PEG SCH (10:04)
[2017-04-08] MEDS: POTASSIUM CHLORIDE 20 MEQ PWD PACKET PEG SCH (10:04)
[2017-04-08] MEDS: BROMOCRIPTINE MESYLATE 2.5 MG TAB PEG SCH ×2 (10:05→22:57)
[2017-04-08] MEDS: SACUBITRIL/VALSARTAN 24 MG-26 MG TAB PEG SCH ×2 (10:05→22:58)
[2017-04-08] MEDS: FAMOTIDINE 20 MG TAB PEG SCH ×2 (10:05→22:57)
[2017-04-08] MEDS: ATORVASTATIN 40 MG TAB G-TUBE SCH (10:06)
[2017-04-08] MEDS: LACTULOSE SYRUP 20 GM/30 ML CUP G-TUBE SCH ×2 (10:06→22:58)
[2017-04-08] MEDS: ASCORBIC ACID 500 MG TAB PEG SCH ×2 (10:06→22:58)
[2017-04-08] MEDS: FERROUS SULFATE 300 MG /5ML UDC PEG SCH ×2 (10:07→22:58)
[2017-04-08] MEDS: SENNOSIDES SYRUP 8.8 MG/5 ML CUP G-TUBE SCH ×2 (10:07→22:58)
[2017-04-08] MEDS: levETIRAcetam 500 MG/5 ML UDC PEG SCH ×2 (10:07→22:57)
[2017-04-08] MEDS: carBAMazepine SUSP 200 MG/10 ML UDC PEG SCH ×2 (10:07→22:59)
[2017-04-08] MEDS: FUROSEMIDE 20 MG/2 ML VIAL IV PUSH SCH (10:08)
[2017-04-08] MEDS: SODIUM CHLORIDE 0.9% FLUSH 10 ML FLUSH IV FLUSH SCH ×2 (10:09→22:59)
[2017-04-08] MEDS: COLLAGENASE OINT 30 GM TUBE TOPICAL SCH (10:13)
[2017-04-08 10:34] LABS: INTERNATIONAL NORMALIZED RATIO 1.5 RATIO; PROTHROMBIN TIME - PATIENT 17.4 SEC (9.8-11.6)
--- NOTE | 2017-04-08 13:16 | PD.CARD.PN ---
Subjective Subjective Remarks No change, remains unresponsive Objective Medications Active Medications Bromocriptine Mesylate (Parlodel) 2.5 mg Q12HR PEG Last administered on 10:05; Admin Dose 2.5 MG; Start 04/07/17 at 21:00 Collagenase (Santyl Oint) 1 applic DAILY TOPICAL Last administered on 04/08/17 10:13; Admin Dose 1 APPLIC; Start 04/07/17 at 16:30 Famotidine (Pepcid) 20 mg BID PEG Last administered on 04/08/17 10:05; Admin Dose 20 MG; Start 04/07/17 at 21:00 Folic Acid (Folate) 1 mg DAILY PEG Last administered on 04/08/17 10:04; Admin Dose 1 MG; Start 04/08/17 at 09:00 Lactulose (Lactulose Liq) 30 ml BID G-TUBE Last administered on 04/08/17 10:06; Admin Dose 30 ML; Start 04/07/17 at 21:00 Levetriacetam (Keppra Liq) 1,000 mg Q12HR PEG Last administered on 04/08/17 10: 07; Admin Dose 1,000 MG; Start 04/07/17 at 21:00 Patient Medication Teaching (Coumadin Booklet) 1 ONCE ONCE OTHER Last administered on 04/07/17 16:27; Admin Dose 1; Start 04/07/17 at 13:45; Stop at 13:46; Status DC Potassium Chloride (KCl Powder) 20 meq DAILY PEG Last administered on 04/08/17 10:04; Admin Dose 20 MEQ; Start 04/08/17 at 09:00 Warfarin Sodium (Coumadin) 7.5 mg DAILY@16 PEG Last administered on 04/07/17 16 :28; Admin Dose 7.5 MG; Start 04/07/17 at 16:00; Stop 04/08/17 at 11:21; Status DC Warfarin Sodium (Coumadin) 7.5 mg DAILY@16 PEG; Start 04/09/17 at 16:00 Warfarin Sodium (Coumadin) 10 mg ONCE@1600 ONCE PO; Start 04/08/17 at 16:00; Stop 04/08/17 at 16:01 Vital Signs / I&O Vital Signs Date Time Temp Pulse Resp B/P (MAP) Pulse Ox O2 Delivery O2 Flow Rate FiO2 04/08/17 12:00 98.6 92 20 110/58 (75) 100 04/08/17 08:59 87 04/08/17 08:00 96.5 82 20 104/60 (75) 100 04/08/17 07:53 100 T-piece 28 04/08/17 04:00 Trach Collar 4.00 28 04/08/17 04:00 98.7 80 17 100/51 (67) 98 04/08/17 00:00 98.6 90 16 119/59 (79) 96 04/08/17 00:00 Trach Collar 4.00 28 04/07/17 20:49 97 T-piece 28 04/07/17 20:49 97 T-piece 28 04/07/17 20:45 99.0 90 17 114/56 (75) 97 04/07/17 20:00 87 04/07/17 20:00 Trach Collar 4.00 28 04/07/17 16:00 100 T-Piece 4.00 28 04/07/17 16:00 98.1 99 17 124/61 (82) 100 04/07/17 15:51 98 T-piece 4.00 28 I/O 04/07/17 04/07/17 04/07/17 04/08/17 04/08/17 04/08/17 06:59 14:59 22:59 06:59 14:59 22:59 Intake Total 836 ml 350 ml 614 ml 1169 ml Output Total 1200 ml 1150 ml 450 ml 550 ml Balance -364 ml -800 ml 164 ml 619 ml Intake Oral 0 ml Tube Feeding 536 ml 150 ml 364 ml 569 ml Tube Irrigant 200 ml 250 ml Other 300 ml 600 ml Output Urine Total 1200 ml 1150 ml 450 ml 550 ml # Bowel Movements 0 Physical Exam GENERAL: In NAD SKIN: Warm and dry. HEAD: Normocephalic. EYES: No scleral icterus. No injection or drainage. NECK: Supple, trachea midline. No JVD or lymphadenopathy. Trach in place CARDIOVASCULAR: Regular rate and rhythm without murmurs, gallops, or rubs. RESPIRATORY: Breath sounds equal bilaterally. No accessory muscle use. GASTROINTESTINAL: Abdomen soft, non-tender, nondistended. MUSCULOSKELETAL: No cyanosis, or edema. Laboratory Laboratory Tests Test 04/08/17 09:56 Prothrombin Time 17.4 SEC Prothromb Time International Ratio 1.5 RATIO Assessment and Plan Problem List: (1) Narrow complex tachycardia ICD Codes: I47.1 - Supraventricular tachycardia Status: Acute (2) CVA (cerebral vascular accident) ICD Codes: I63.9 - Cerebral infarction, unspecified Status: Acute (3) Seizure ICD Codes: R56.9 - Unspecified convulsions Status: Acute (4) Moyamoya disease ICD Codes: I67.5 - Moyamoya disease Status: Acute (5) Encephalopathy ICD Codes: G93.40 - Encephalopathy, unspecified Status: Acute (6) Accelerated essential hypertension ICD Codes: I10 - Accelerated essential hypertension Status: Acute (7) Respiratory failure, acute ICD Codes: J96.00 - Acute respiratory failure, unspecified whether with hypoxia or hypercapnia Status: Acute Assessment and Plan No new cardiac issues, remains stable from cardiac standpoint. Telemetry with no recent arrhythmias. Continue current program including metoprolol, titrate if necessary. No change in neurologic status. Will sign off. Klaus Panchal MD Apr 08, 2017 13:16
[2017-04-08] MEDS ORDERED: WARFARIN SOD 5 MG TAB PO ONE (16:00)
--- NOTE | 2017-04-08 18:12 | HHI.PR ---
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 Mod amount of trach secretions No new complaint Objective Vital Signs Vital Signs Date Time Temp Pulse Resp B/P (MAP) Pulse Ox O2 Delivery O2 Flow Rate FiO2 04/08/17 15:35 99 T-piece 6.00 28 04/08/17 12:00 98.6 92 20 110/58 (75) 100 04/08/17 08:59 87 04/08/17 08:00 96.5 82 20 104/60 (75) 100 04/08/17 07:53 100 T-piece 28 04/08/17 04:00 Trach Collar 4.00 28 04/08/17 04:00 98.7 80 17 100/51 (67) 98 04/08/17 00:00 98.6 90 16 119/59 (79) 96 04/08/17 00:00 Trach Collar 4.00 28 04/07/17 20:49 97 T-piece 28 04/07/17 20:49 97 T-piece 28 04/07/17 20:45 99.0 90 17 114/56 (75) 97 04/07/17 20:00 87 04/07/17 20:00 Trach Collar 4.00 28 I/O 04/07/17 04/07/17 04/07/17 04/08/17 04/08/17 04/08/17 07:00 15:00 23:00 07:00 15:00 23:00 Intake Total 836 ml 350 ml 614 ml 1169 ml Output Total 1200 ml 1150 ml 450 ml 550 ml Balance -364 ml -800 ml 164 ml 619 ml Intake Oral 0 ml Tube Feeding 536 ml 150 ml 364 ml 569 ml Tube Irrigant 200 ml 250 ml Other 300 ml 600 ml Output Urine Total 1200 ml 1150 ml 450 ml 550 ml # Bowel Movements 0 Result Diagram: 04/05/17 1530 Objective Remarks GENERAL: MBMN WF, on Trach collar SKIN: Warm and dry. HEAD: Normocephalic. EYES: No scleral icterus. No injection or drainage. NECK: Supple, trachea midline. No JVD or lymphadenopathy. has trach CARDIOVASCULAR: Regular rate and rhythm without murmurs, gallops, or rubs. RESPIRATORY: Breath sounds equal bilaterally. No accessory muscle use. GASTROINTESTINAL: Abdomen soft, non-tender, nondistended. has PEG MUSCULOSKELETAL: No cyanosis, or edema. BACK: Nontender without obvious deformity. No CVA tenderness. A/P Assessment and Plan RF, S/P Trach CVA Arango arango disease CAD COPD SZ disorder PLAN: Aerosol nebs Cont trach collar supplement 02, keep sat >90%. TF Cont Levsin.prn DW RN Available prn over weekend. Vernon Marx MD Apr 08, 2017 18:12
[2017-04-09] VITALS (8 sets, daily range): BP systolic 117–134; BP diastolic 58–82; PULSE 81–114; RESP 18–20; TEMP 97.8–99.1; O2SAT 95–100
[2017-04-09] MEDS: HYOSCYAMINE SOLN 0.125 MG/ML 15 ML BTL G-TUBE SCH ×4 (02:27→17:01)
[2017-04-09] MEDS: METOPROLOL TARTRATE 25 MG TAB G-TUBE SCH ×4 (02:27→17:01)
[2017-04-09] MEDS: CHLORHEXIDINE GLUCONATE 2 % 1 PACK (2 CLOTHS) TOP SCH (04:00)
[2017-04-09] MEDS: FREE WATER G-TUBE SCH ×3 (06:00→22:00)
[2017-04-09] MEDS: CHLORHEXIDINE 0.12% (ORAL KIT) 15 ML CUP MT SCH ×2 (08:00→20:22)
[2017-04-09] MEDS: RESP: IPRATROPIUM 0.5 MG/2.5 ML NEB NEB SCH ×4 (08:06→21:40)
[2017-04-09 08:48] LABS: INTERNATIONAL NORMALIZED RATIO 1.5 RATIO; PROTHROMBIN TIME - PATIENT 16.7 SEC (9.8-11.6)
[2017-04-09] MEDS: POVIDONE IODINE 10% OINT 30 GM TUBE TOPICAL SCH (09:00)
[2017-04-09] MEDS: INSULIN ASPART SUPPLEMENTAL SCALE SQ SCH ×2 (09:00→20:25)
[2017-04-09] MEDS: JUVEN POWDER 1 PACK G-TUBE SCH ×2 (09:00→21:00)
[2017-04-09] MEDS: POTASSIUM CHLORIDE 20 MEQ PWD PACKET PEG SCH (09:00)
[2017-04-09] MEDS: FERROUS SULFATE 300 MG /5ML UDC PEG SCH ×2 (09:17→20:23)
[2017-04-09] MEDS: LACTULOSE SYRUP 20 GM/30 ML CUP G-TUBE SCH ×2 (09:17→20:22)
[2017-04-09] MEDS: SENNOSIDES SYRUP 8.8 MG/5 ML CUP G-TUBE SCH ×2 (09:17→20:22)
[2017-04-09] MEDS: carBAMazepine SUSP 200 MG/10 ML UDC PEG SCH ×2 (09:18→20:22)
[2017-04-09] MEDS: levETIRAcetam 500 MG/5 ML UDC PEG SCH ×2 (09:18→20:23)
[2017-04-09] MEDS: FUROSEMIDE 20 MG/2 ML VIAL IV PUSH SCH (09:18)
[2017-04-09] MEDS: SODIUM CHLORIDE 0.9% FLUSH 10 ML FLUSH IV FLUSH SCH ×2 (09:19→20:21)
[2017-04-09] MEDS: BROMOCRIPTINE MESYLATE 2.5 MG TAB PEG SCH ×2 (09:19→20:23)
[2017-04-09] MEDS: FAMOTIDINE 20 MG TAB PEG SCH ×2 (09:19→20:23)
[2017-04-09] MEDS: ATORVASTATIN 40 MG TAB G-TUBE SCH (09:19)
[2017-04-09] MEDS: ASCORBIC ACID 500 MG TAB PEG SCH ×2 (09:19→20:23)
[2017-04-09] MEDS: FOLIC ACID 1 MG TAB PEG SCH (09:19)
[2017-04-09] MEDS: SACUBITRIL/VALSARTAN 24 MG-26 MG TAB PEG SCH ×2 (09:19→20:23)
[2017-04-09] MEDS: COLLAGENASE OINT 30 GM TUBE TOPICAL SCH (09:20)
[2017-04-09] MEDS: SODIUM HYPOCHLORITE 0.25% 500 ML BTL TOPICAL SCH (09:21)
--- NOTE | 2017-04-09 12:51 | HHI.PR ---
Subjective Remarks No acute events overnight. Afebrile, vital signs stable. 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 Objective Vitals Vital Signs Date Time Temp Pulse Resp B/P (MAP) Pulse Ox O2 Delivery O2 Flow Rate FiO2 04/09/17 08:07 100 T-piece 28 04/09/17 08:00 98.7 81 20 117/60 (79) 100 04/09/17 04:00 99.1 82 20 121/58 (79) 95 04/09/17 00:16 97.9 91 20 128/68 (88) 100 04/08/17 21:20 97 Trach Collar 4.00 28 T-Piece Humidified 04/08/17 20:00 79 04/08/17 20:00 98.9 98 20 122/60 (80) 99 04/08/17 16:00 98.9 90 20 123/69 (87) 100 04/08/17 15:35 99 T-piece 6.00 28 I/O 04/08/17 04/08/17 04/08/17 04/09/17 04/09/17 04/09/17 07:00 15:00 23:00 07:00 15:00 23:00 Intake Total 1169 ml 1020 ml Output Total 550 ml 1925 ml Balance 619 ml -905 ml Intake Oral 0 ml Tube Feeding 569 ml 720 ml Other 600 ml 300 ml Output Urine Total 550 ml 1925 ml Result Diagram: 04/05/17 1530 Objective Remarks GENERAL: does not respond to verbal commands. Currently on T piece. SKIN: Warm and dry. HEAD: Normocephalic. EYES: No scleral icterus. No injection or drainage. NECK: Supple, trachea midline. No JVD or lymphadenopathy. CARDIOVASCULAR: Regular rhythm, tachycardic without murmurs, gallops, or rubs. RESPIRATORY: Breath sounds equal bilaterally. No accessory muscle use. GASTROINTESTINAL: Abdomen soft, obese, non-tender, nondistended. PEG tube in place. MUSCULOSKELETAL: No cyanosis, or edema. Procedures PEG 11/24/2016 Percutaneous tracheostomy. 11/18/2016 Moderate encephalopathy with suggestion of left temporal region cortical irritability. No active seizures. Clinical correlation. Echocardiogram Severe dilated left ventricle. Wall thickness is normal. The left ventricular systolic function is moderately reduced with an estimated ejection fraction in the range of 35-40%. Doppler parameters are consistent with a restrictive left ventricular filling pattern indicative of decreased left ventricular diastolic compliance and increase left atrial pressure (grade 3 diastolic dysfunction). There is severe tricuspid regurgitation. There is severe pulmonary hypertension present ( > 70 mmHg). Severe mitral valve regurgitation. 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 Status: Acute (2) Seizure ICD Code: R56.9 - Unspecified convulsions Status: Acute (3) CVA (cerebral vascular accident) ICD Code: I63.9 - Cerebral infarction, unspecified Status: Acute (4) Respiratory failure, acute ICD Code: J96.00 - Acute respiratory failure, unspecified whether with hypoxia or hypercapnia Status: Acute (5) COPD (chronic obstructive pulmonary disease) ICD Code: J44.9 - Chronic obstructive pulmonary disease, unspecified Status: Chronic (6) Acute hypernatremia ICD Code: E87.0 - Hyperosmolality and hypernatremia Status: Resolved (7) Microcytic anemia ICD Code: D50.9 - Iron deficiency anemia, unspecified Assessment and Plan Viridans strep bacteremia - resolved - ID following. Per ID, sputum cx with GNR and staph aureus ? colonization. Urine with Kleb pneumo and E Coli ? colonization - Repeat blood cx 03/23 shows no growth in 5 days. - completed Rocephin on 04/05/17 per ID - continue precautions Bilateral frontal CVA Moyamoya - confirmed by arteriogram at [facility] October 2016 Seizure disorder - Continue Keppra 1000mg BID - Continue Tegretol 200mg q 12h - Follow for seizure activity - no recent seizure activity noted - Continue Bromocriptine - Keppra level 25.3 - 04/05 - Tegretol level 7.1 03/31 Hyperammonemia - resolved - continue Lactulose 30mg BID - continue to monitor ammonia level as indicated Hyponatremia - improved Mixed systolic and diastolic heart failure, stable - echocardiogram 02/02/17 shows EF 35-40%, grade 3 diastolic dysfunction, severe tricuspid regurgitation, severe pulmonary HTN and severe mitral valve regurgitation. - continue Lasix 20mg daily - continue on Entresto - monitor electrolytes and renal function - monitor for s/sxs of fluid overload Chronic respiratory failure COPD Multilobar pneumonia, resolved - Pulmonary medicine following, appreciate assistance - Status post tracheostomy on 11/24/2016. Currently on T piece. Continue on Levsin prn for secretions. - completed antibiotic course with Tobramycin, course ended on 01/20/17. - Continue DuoNebs when necessary - supplement O2 to keep O2 sats > 90% Atrial fibrillation plus recent SVT - Cardiology signed off, stable - rate controlled - Continue Metoprolol 25mg q12hr and Coumadin - confirmed with Dr. Flores patient to continue Coumadin WITHOUT ASA. - INR 2.0. Pharmacy to dose. Continue to monitor INR. Anasarca - Continue Lasix 20 mg IV daily Dysphagia Hypoalbuminemia - s/p PEG placement - continue Jevity 1.5 through PEG tube with Corby supplementation. - Continue TF continuous 60ml per hour New onset DM - HgbA1c 6.5 - continue with accucheks and ISS - BS controlled Sacral/Coccyx wound - Specialty bed ordered, continue - Wound care following - per their last note 03/30, improving wound when compared to last. Recommend to continue betadine moistened gauze packing with dry cover for one more week and then patient will be reassessed for alternative dressings. Plastic surgery consulted, appreciate recommendations - continue frequent turning/off loading Q2H Anemia, microcytic, hypochromic - stable - iron studies-iron 33, TIBC 307, % sat 10.8, ferritin 346. Continue iron supplementation. - stool hemoccult negative - monitor intermittently GI Prophylaxis: Pepcid. DVT prophylaxis: SCDs. Coumadin. Discharge Planning Pending placement. Patient is a difficult placement as she is medicated with PEG and trach. Case management continues to work on placement. CM notes reviewed. Tamar Talamantes MD R3 Apr 09, 2017 12:51
[2017-04-09] MEDS ORDERED: WARFARIN SOD 2.5 MG TAB PO ONE (16:30)
[2017-04-09] MEDS: WARFARIN SOD 7.5 MG TAB PEG SCH (17:01)
[2017-04-09] MEDS: ACETAMINOPHEN/HYDROcodone 325 MG/5 MG TAB G-TUBE PRN (20:25)
[2017-04-10] VITALS (8 sets, daily range): BP systolic 113–139; BP diastolic 56–83; PULSE 81–114; RESP 18–20; TEMP 97–98.3; O2SAT 94–100
[2017-04-10] MEDS: HYOSCYAMINE SOLN 0.125 MG/ML 15 ML BTL G-TUBE SCH ×5 (00:13→23:41)
[2017-04-10] MEDS: METOPROLOL TARTRATE 25 MG TAB G-TUBE SCH ×4 (00:15→19:24)
[2017-04-10] MEDS: CHLORHEXIDINE GLUCONATE 2 % 1 PACK (2 CLOTHS) TOP SCH (04:00)
[2017-04-10] MEDS: FREE WATER G-TUBE SCH ×3 (06:00→21:19)
[2017-04-10] MEDS: RESP: IPRATROPIUM 0.5 MG/2.5 ML NEB NEB SCH ×4 (08:32→20:11)
[2017-04-10] MEDS: SODIUM CHLORIDE 0.9% FLUSH 10 ML FLUSH IV FLUSH SCH ×2 (09:00→21:14)
[2017-04-10] MEDS: INSULIN ASPART SUPPLEMENTAL SCALE SQ SCH ×2 (09:00→21:00)
[2017-04-10] MEDS: JUVEN POWDER 1 PACK G-TUBE SCH ×2 (09:00→21:15)
[2017-04-10] MEDS: POTASSIUM CHLORIDE 20 MEQ PWD PACKET PEG SCH (09:00)
[2017-04-10] MEDS: POVIDONE IODINE 10% OINT 30 GM TUBE TOPICAL SCH (09:00)
[2017-04-10] MEDS: FAMOTIDINE 20 MG TAB PEG SCH ×2 (09:28→21:17)
[2017-04-10] MEDS: FERROUS SULFATE 300 MG /5ML UDC PEG SCH ×2 (09:28→21:16)
[2017-04-10] MEDS: SACUBITRIL/VALSARTAN 24 MG-26 MG TAB PEG SCH ×2 (09:28→21:17)
[2017-04-10] MEDS: FOLIC ACID 1 MG TAB PEG SCH (09:28)
[2017-04-10] MEDS: BROMOCRIPTINE MESYLATE 2.5 MG TAB PEG SCH ×2 (09:28→21:16)
[2017-04-10] MEDS: carBAMazepine SUSP 200 MG/10 ML UDC PEG SCH ×2 (09:28→21:16)
[2017-04-10] MEDS: ATORVASTATIN 40 MG TAB G-TUBE SCH (09:28)
[2017-04-10] MEDS: ASCORBIC ACID 500 MG TAB PEG SCH ×2 (09:28→21:16)
[2017-04-10] MEDS: LACTULOSE SYRUP 20 GM/30 ML CUP G-TUBE SCH ×2 (09:29→21:00)
[2017-04-10] MEDS: SENNOSIDES SYRUP 8.8 MG/5 ML CUP G-TUBE SCH ×2 (09:29→21:00)
[2017-04-10] MEDS: FUROSEMIDE 20 MG/2 ML VIAL IV PUSH SCH (09:29)
[2017-04-10] MEDS: levETIRAcetam 500 MG/5 ML UDC PEG SCH ×2 (09:29→21:18)
[2017-04-10 10:53] LABS: INTERNATIONAL NORMALIZED RATIO 1.5 RATIO; PROTHROMBIN TIME - PATIENT 16.8 SEC (9.8-11.6)
--- NOTE | 2017-04-10 11:44 | HHI.PR ---
Subjective Remarks 04/10/2017: No acute events overnight. Afebrile, vital signs stable. 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 Objective Vitals Vital Signs Date Time Temp Pulse Resp B/P (MAP) Pulse Ox O2 Delivery O2 Flow Rate FiO2 04/10/17 08:35 99 T-piece 6.00 28 04/10/17 08:00 114 04/10/17 08:00 98.1 84 18 117/57 (77) 100 04/10/17 08:00 95 Trach Collar 28 T-Piece Humidified 04/10/17 04:00 97.4 88 18 113/58 (76) 95 04/10/17 00:00 98.3 94 20 128/63 (84) 94 04/09/17 21:46 98 T-piece 5.00 28 04/09/17 20:00 114 04/09/17 20:00 98.6 111 20 134/82 (99) 96 04/09/17 20:00 95 Trach Collar 28 T-Piece Humidified 04/09/17 16:00 97.8 89 18 129/60 (83) 96 04/09/17 12:00 98.5 87 18 119/61 (80) 100 I/O 04/09/17 04/09/17 04/09/17 04/10/17 04/10/17 04/10/17 07:00 15:00 23:00 07:00 15:00 23:00 Intake Total 1683 ml Output Total 2200 ml 400 ml Balance -2200 ml 1283 ml Intake Oral 0 ml Tube Feeding 1083 ml Other 600 ml Output Urine Total 2200 ml 400 ml # Bowel Movements 2 1 Objective Remarks GENERAL: does not respond to verbal commands. Currently on T piece. SKIN: Warm and dry. HEAD: Normocephalic. EYES: No scleral icterus. No injection or drainage. NECK: Supple, trachea midline. No JVD or lymphadenopathy. CARDIOVASCULAR: Regular rhythm, tachycardic without murmurs, gallops, or rubs. RESPIRATORY: Breath sounds equal bilaterally. No accessory muscle use. GASTROINTESTINAL: Abdomen soft, obese, non-tender, nondistended. PEG tube in place. MUSCULOSKELETAL: No cyanosis, or edema. Procedures PEG 11/24/2016 Percutaneous tracheostomy. 11/18/2016 Moderate encephalopathy with suggestion of left temporal region cortical irritability. No active seizures. Clinical correlation. Echocardiogram Severe dilated left ventricle. Wall thickness is normal. The left ventricular systolic function is moderately reduced with an estimated ejection fraction in the range of 35-40%. Doppler parameters are consistent with a restrictive left ventricular filling pattern indicative of decreased left ventricular diastolic compliance and increase left atrial pressure (grade 3 diastolic dysfunction). There is severe tricuspid regurgitation. There is severe pulmonary hypertension present ( > 70 mmHg). Severe mitral valve regurgitation. 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 Status: Acute (2) Seizure ICD Code: R56.9 - Unspecified convulsions Status: Acute (3) CVA (cerebral vascular accident) ICD Code: I63.9 - Cerebral infarction, unspecified Status: Acute (4) Respiratory failure, acute ICD Code: J96.00 - Acute respiratory failure, unspecified whether with hypoxia or hypercapnia Status: Acute (5) COPD (chronic obstructive pulmonary disease) ICD Code: J44.9 - Chronic obstructive pulmonary disease, unspecified Status: Chronic (6) Acute hypernatremia ICD Code: E87.0 - Hyperosmolality and hypernatremia Status: Resolved (7) Microcytic anemia ICD Code: D50.9 - Iron deficiency anemia, unspecified Assessment and Plan Viridans strep bacteremia - resolved - ID following. Per ID, sputum cx with GNR and staph aureus ? colonization. Urine with Kleb pneumo and E Coli ? colonization - Repeat blood cx 03/23 shows no growth in 5 days. - completed Rocephin on 04/05/17 per ID - continue precautions Bilateral frontal CVA Moyamoya - confirmed by arteriogram at [facility] October 2016 Seizure disorder - Continue Keppra 1000mg BID - Continue Tegretol 200mg q 12h - Follow for seizure activity - no recent seizure activity noted - Continue Bromocriptine - Keppra level 25.3 - 04/05 - Tegretol level 7.1 03/31 Hyperammonemia - resolved - continue Lactulose 30mg BID - continue to monitor ammonia level as indicated Hyponatremia - improved Mixed systolic and diastolic heart failure, stable - echocardiogram 02/02/17 shows EF 35-40%, grade 3 diastolic dysfunction, severe tricuspid regurgitation, severe pulmonary HTN and severe mitral valve regurgitation. - continue Lasix 20mg daily - continue on Entresto - monitor electrolytes and renal function - monitor for s/sxs of fluid overload Chronic respiratory failure COPD Multilobar pneumonia, resolved - Pulmonary medicine following, appreciate assistance - Status post tracheostomy on 11/24/2016. Currently on T piece. Continue on Levsin prn for secretions. - completed antibiotic course with Tobramycin, course ended on 01/20/17. - Continue DuoNebs when necessary - supplement O2 to keep O2 sats > 90% Atrial fibrillation plus recent SVT - Cardiology signed off, stable - rate controlled - Continue Metoprolol 25mg q12hr and Coumadin - confirmed with Dr. Flores patient to continue Coumadin WITHOUT ASA. - INR 2.0. Pharmacy to dose. Continue to monitor INR. Anasarca - Continue Lasix 20 mg IV daily Dysphagia Hypoalbuminemia - s/p PEG placement - continue Jevity 1.5 through PEG tube with Corby supplementation. - Continue TF continuous 60ml per hour New onset DM - HgbA1c 6.5 - continue with accucheks and ISS - BS controlled Sacral/Coccyx wound - Specialty bed ordered, continue - Wound care following - per their last note 03/30, improving wound when compared to last. Recommend to continue betadine moistened gauze packing with dry cover for one more week and then patient will be reassessed for alternative dressings. Plastic surgery consulted, appreciate recommendations - continue frequent turning/off loading Q2H Anemia, microcytic, hypochromic - stable - iron studies-iron 33, TIBC 307, % sat 10.8, ferritin 346. Continue iron supplementation. - stool hemoccult negative - monitor intermittently GI Prophylaxis: Pepcid. DVT prophylaxis: SCDs. Coumadin. Discharge Planning Pending placement. Patient is a difficult placement as she is medicated with PEG and trach. Case management continues to work on placement. CM notes reviewed. Tamar Talamantes MD R3 Apr 10, 2017 11:44
[2017-04-10] MEDS: WARFARIN SOD 7.5 MG TAB PEG SCH (15:49)
[2017-04-10] MEDS ORDERED: WARFARIN SOD 3 MG TAB PO ONE (16:00)
[2017-04-10] MEDS: CHLORHEXIDINE 0.12% (ORAL KIT) 15 ML CUP MT SCH (21:33)
[2017-04-10] MEDS: SODIUM HYPOCHLORITE 0.25% 500 ML BTL TOPICAL SCH (23:42)
[2017-04-10] MEDS: COLLAGENASE OINT 30 GM TUBE TOPICAL SCH (23:42)
[2017-04-11] VITALS (11 sets, daily range): BP systolic 95–132; BP diastolic 53–70; PULSE 85–107; RESP 20; TEMP 97.3–98.6; O2SAT 97–100
[2017-04-11] MEDS: CHLORHEXIDINE GLUCONATE 2 % 1 PACK (2 CLOTHS) TOP SCH (04:00)
[2017-04-11] MEDS: FREE WATER G-TUBE SCH ×3 (05:34→22:17)
[2017-04-11] MEDS: HYOSCYAMINE SOLN 0.125 MG/ML 15 ML BTL G-TUBE SCH ×3 (05:34→17:36)
[2017-04-11] MEDS: METOPROLOL TARTRATE 25 MG TAB G-TUBE SCH ×4 (05:35→17:35)
[2017-04-11] MEDS: RESP: IPRATROPIUM 0.5 MG/2.5 ML NEB NEB SCH ×4 (08:00→20:58)
[2017-04-11] MEDS: INSULIN ASPART SUPPLEMENTAL SCALE SQ SCH ×2 (09:00→21:00)
[2017-04-11] MEDS: POVIDONE IODINE 10% OINT 30 GM TUBE TOPICAL SCH (09:00)
[2017-04-11] MEDS: SENNOSIDES SYRUP 8.8 MG/5 ML CUP G-TUBE SCH ×2 (10:12→22:13)
[2017-04-11] MEDS: LACTULOSE SYRUP 20 GM/30 ML CUP G-TUBE SCH ×2 (10:12→22:13)
[2017-04-11] MEDS: levETIRAcetam 500 MG/5 ML UDC PEG SCH ×2 (10:12→22:13)
[2017-04-11] MEDS: FERROUS SULFATE 300 MG /5ML UDC PEG SCH ×2 (10:13→22:13)
[2017-04-11] MEDS: FUROSEMIDE 20 MG/2 ML VIAL IV PUSH SCH (10:13)
[2017-04-11] MEDS: carBAMazepine SUSP 200 MG/10 ML UDC PEG SCH ×2 (10:14→22:14)
[2017-04-11] MEDS: ATORVASTATIN 40 MG TAB G-TUBE SCH (10:14)
[2017-04-11] MEDS: FAMOTIDINE 20 MG TAB PEG SCH ×2 (10:14→22:16)
[2017-04-11] MEDS: BROMOCRIPTINE MESYLATE 2.5 MG TAB PEG SCH ×2 (10:14→22:14)
[2017-04-11] MEDS: FOLIC ACID 1 MG TAB PEG SCH (10:14)
[2017-04-11] MEDS: ASCORBIC ACID 500 MG TAB PEG SCH ×2 (10:14→22:16)
[2017-04-11] MEDS: POTASSIUM CHLORIDE 20 MEQ PWD PACKET PEG SCH (10:15)
[2017-04-11] MEDS: SODIUM CHLORIDE 0.9% FLUSH 10 ML FLUSH IV FLUSH SCH ×2 (10:16→22:17)
[2017-04-11] MEDS: SACUBITRIL/VALSARTAN 24 MG-26 MG TAB PEG SCH ×2 (10:19→22:15)
[2017-04-11 10:23] LABS: INTERNATIONAL NORMALIZED RATIO 1.6 RATIO; PROTHROMBIN TIME - PATIENT 18.1 SEC (9.8-11.6)
[2017-04-11] MEDS: COLLAGENASE OINT 30 GM TUBE TOPICAL SCH (10:35)
[2017-04-11] MEDS: SODIUM HYPOCHLORITE 0.25% 500 ML BTL TOPICAL SCH (10:35)
[2017-04-11] MEDS: JUVEN POWDER 1 PACK G-TUBE SCH ×2 (10:45→22:18)
[2017-04-11] MEDS: CHLORHEXIDINE 0.12% (ORAL KIT) 15 ML CUP MT SCH ×2 (10:45→22:18)
--- NOTE | 2017-04-11 14:06 | HHI.PR ---
Subjective Remarks Follow up on patient with Moyamoya dz, bilateral frontal CVAs. Patient seen and examined today. Daughter is at the bedside. Patients with eyes open. Appears to track some. Able to grasp finger but not on command. Objective Vitals Vital Signs Date Time Temp Pulse Resp B/P (MAP) Pulse Ox O2 Delivery O2 Flow Rate FiO2 04/11/17 12:07 100 T-piece 7.00 28 04/11/17 12:00 98.0 107 20 130/70 (90) 100 04/11/17 09:01 100 T-piece 6.00 28 04/11/17 08:00 97.3 87 20 106/57 (73) 100 04/11/17 07:41 89 04/11/17 04:00 98.5 85 20 95/53 (67) 99 04/11/17 00:00 98.6 97 20 116/57 (76) 100 04/10/17 20:00 89 04/10/17 20:00 100 Trach Collar 5.00 28 T-Piece Humidified 04/10/17 20:00 98.3 95 20 122/56 (78) 99 04/10/17 16:00 97.0 90 20 130/71 (90) 99 04/10/17 15:53 96 T-piece 5.00 28 I/O 04/10/17 04/10/17 04/10/17 04/11/17 04/11/17 04/11/17 07:00 15:00 23:00 07:00 15:00 23:00 Intake Total 1683 ml 1165 ml Output Total 400 ml 600 ml 1000 ml Balance 1283 ml -600 ml 165 ml Intake Oral 0 ml 0 ml Tube Feeding 1083 ml 565 ml Other 600 ml 600 ml Output Urine Total 400 ml 600 ml 1000 ml # Bowel Movements 1 1 2 Imaging Last Impressions Chest X-Ray 03/20/17 0000 Signed Impressions: Service Date/Time: Monday, March 20, 2017 11:37 - CONCLUSION: Stable appearance with no acute cardiopulmonary disease. Lenny Kerns MD Abdomen X-Ray 02/11/17 0000 Signed Impressions: Service Date/Time: Saturday, February 11, 2017 17:52 - CONCLUSION: Minimal colonic distention. Kenneth Frost MD FACR Catheter Change 02/10/17 0000 Signed Impressions: Service Date/Time: February 13:47 - CONCLUSION: Uncomplicated fluoroscopic guided gastrostomy tube replacement. Positioning confirmed. The tube can be used immediately. Nghia Pacheco MD Lower Extremity Ultrasound 02/01/17 0000 Signed Impressions: Service Date/Time: Wednesday, February 01, 2017 13:23 - CONCLUSION: Normal examination. 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 Sami Mccarthy MD Objective Remarks GENERAL: WDWN female, lying in hospital bed, INAD. Eyes open. Appears to track some. Appears comfortable. Daughter is at the bedside. SKIN: Warm and dry. HEENT: Normocephalic. No nasal bleeding or discharge noted. Dry mucus membranes. NECK: Trachea midline. T piece in place with scant secretions noted in tubing. CARDIOVASCULAR: Regular rate and rhythm without murmurs, gallops, or rubs. RESPIRATORY: Upper airway sounds noted. No accessory muscle use. GASTROINTESTINAL: Abdomen soft, non-tender, nondistended. PEG in place, site unchanged. MUSCULOSKELETAL: No cyanosis. Bilateral SCDs in place. NEUROLOGICAL: Nonverbal. Able to grasp finger. No spontaneous movement appreciated. Procedures PEG 11/24/2016 Percutaneous tracheostomy. 11/18/2016 Moderate encephalopathy with suggestion of left temporal region cortical irritability. No active seizures. Clinical correlation. Echocardiogram Severe dilated left ventricle. Wall thickness is normal. The left ventricular systolic function is moderately reduced with an estimated ejection fraction in the range of 35-40%. Doppler parameters are consistent with a restrictive left ventricular filling pattern indicative of decreased left ventricular diastolic compliance and increase left atrial pressure (grade 3 diastolic dysfunction). There is severe tricuspid regurgitation. There is severe pulmonary hypertension present ( > 70 mmHg). Severe mitral valve regurgitation. Medications and IVs Current Medications Medications (Trade) Dose Ordered Sig/Ora Route Start Time Stop Time Status Last Admin (Peridex 0.12% Liq) 15 ml BID@08,20 MT 11/18/16 08:00 04/11/17 10:45 (NS Flush) 2 ml BID IV FLUSH 11/18/16 09:00 04/11/17 10:16 (Morphine Inj) 2 mg Q2H PRN IV 11/18/16 03:30 03/27/17 10:13 (Zofran Inj) 4 mg Q6H PRN IV 11/18/16 03:30 11/26/16 03:20 Miscellaneous Information 1 Q361D XX 11/18/16 03:30 11/18/16 03:30 (Chlorhexidine 2% Cloth) Taper DAILY@04 TOP 11/18/16 04:00 11/14/17 03:59 04/06/17 04:33 (Chlorhexidine 2% Cloth) 3 pack UNSCH PRN TOP 11/18/16 03:30 (Dulcolax Supp) 10 mg DAILY PRN RECTAL 12/14/16 15:45 (TEGretol LIQ) 200 mg Q12HR PEG 01/06/17 09:00 04/11/17 10:14 (Corby Powder) 1 pack BID G-TUBE 01/13/17 09:00 04/11/17 10:45 (Ferrous Sulfate Liq) 300 mg BID PEG 01/26/17 21:00 04/11/17 10:13 (Vitamin C) 500 mg BID PEG 01/26/17 21:00 04/11/17 10:14 (Buckner 5-325 Mg) 1 tab Q4H PRN G-TUBE 02/01/17 11:30 04/09/17 20:25 (Tylenol) 650 mg Q6H PRN G-TUBE 02/01/17 09:30 04/07/17 22:09 (Lipitor) 40 mg DAILY G-TUBE 02/01/17 09:00 04/11/17 10:14 (Senna Liq) 8.8 mg BID G-TUBE 02/01/17 09:00 04/11/17 10:12 (D50w (Vial) Inj) 25 ml UNSCH PRN IV PUSH 02/01/17 09:15 (Glucagon Inj) 1 mg UNSCH PRN OTHER 02/01/17 09:15 (Dakin'S 0.25% Soln) USE DAILY WITH DRESS... DAILY TOPICAL 02/12/17 18:00 04/11/17 10:35 (Betadine 10% Oint) 1 applic DAILY TOPICAL 02/15/17 09:00 04/10/17 09:00 (Zaroxolyn) 5 mg DAILY PEG 03/09/17 09:00 Future Hold 04/06/17 11:31 (Entresto 24-26 Mg) 1 tab BID PEG 03/08/17 21:00 04/11/17 10:19 (Free Water) VOLUME OF WATER: ( 300 ) ML Q8HR G-TUBE 03/09/17 14:00 04/11/17 13:03 (Levsin Liq) 0.125 mg Q6H G-TUBE 03/10/17 18:00 04/11/17 13:02 (Lasix Inj) 20 mg DAILY IV PUSH 03/16/17 11:30 04/11/17 10:13 (NovoLOG SUPPLEMENTAL SCALE) 1 BID SQ 03/20/17 21:00 03/22/17 22:04 (Albuterol Neb) 0.63 mg Q4HR NEB PRN NEB 03/21/17 09:15 (Atrovent Neb) 0.5 mg QID NEB NEB 03/21/17 12:00 04/11/17 11:57 (Lopressor) 50 mg Q6HR G-TUBE 03/27/17 18:00 04/11/17 13:01 Pharmacy Profile Note 0 ml @ 0 mls/hr UNSCH OTHER 04/05/17 14:45 (Parlodel) 2.5 mg Q12HR PEG 04/07/17 21:00 04/11/17 10:14 (Pepcid) 20 mg BID PEG 04/07/17 21:00 04/11/17 10:14 (Folate) 1 mg DAILY PEG 04/08/17 09:00 04/11/17 10:14 (Lactulose Liq) 30 ml BID G-TUBE 04/07/17 21:00 04/11/17 10:12 (Keppra Liq) 1,000 mg Q12HR PEG 04/07/17 21:00 04/11/17 10:12 (KCl Powder) 20 meq DAILY PEG 04/08/17 09:00 04/11/17 10:15 (Santyl Oint) 1 applic DAILY TOPICAL 04/07/17 16:30 04/11/17 10:35 (Coumadin) 7.5 mg DAILY@16 PEG 04/09/17 16:00 04/10/17 15:49 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 Status: Acute (2) Seizure ICD Code: R56.9 - Unspecified convulsions Status: Acute (3) CVA (cerebral vascular accident) ICD Code: I63.9 - Cerebral infarction, unspecified Status: Acute (4) Respiratory failure, acute ICD Code: J96.00 - Acute respiratory failure, unspecified whether with hypoxia or hypercapnia Status: Acute (5) COPD (chronic obstructive pulmonary disease) ICD Code: J44.9 - Chronic obstructive pulmonary disease, unspecified Status: Chronic (6) Acute hypernatremia ICD Code: E87.0 - Hyperosmolality and hypernatremia Status: Resolved (7) Microcytic anemia ICD Code: D50.9 - Iron deficiency anemia, unspecified Assessment and Plan Ms. Rivas is a 66-year-old female with a history of stroke who was admitted to the [facility] on 11/04/2016 due to difficulty getting her thoughts together. She was found to have multifocal nonhemorrhagic infarctions in the frontal and parietal regions. She was initially awake and following commands with weakness of RLE and some aphasia. She was transferred to [facility] where he had an cerebral angiogram consistent with moyamoya. There were plans to perform extracranial/intracranial bypass. However, she had a seizure and ended up being intubated for status epilepticus 11/09 or 11/10. She was found to have a new right frontal infarct area and she was started on Dilantin and Keppra and it was felt that she would not be a candidate for intervention. She has since undergone PEG placement. Apparently family requested transfer back to [place] because they live locally and wanted her closer to home. Patient remained under critical care medicine until 12/24/2016. Viridans strep bacteremia - resolved - ID following. Per ID, sputum cx with GNR and staph aureus ? colonization. Urine with Kleb pneumo and E Coli ? colonization - Repeat blood cx 03/23 shows no growth in 5 days. 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 at [facility] October 2016 Seizure disorder - Continue Keppra 1000mg BID - Continue Tegretol 200mg q 12h - Follow for seizure activity - no recent seizure activity noted - Continue Bromocriptine - Keppra level 25.3 04/05 - Tegretol level 7.1 03/31 Hyperammonemia - trending down - continue Lactulose 30mg BID - continue to monitor ammonia level as indicated - repeat level ordered for tomorrow Hyponatremia - improved Mixed systolic and diastolic heart failure, stable - echocardiogram 02/02/17 shows EF 35-40%, grade 3 diastolic dysfunction, severe tricuspid regurgitation, severe pulmonary HTN and severe mitral valve regurgitation. - continue Lasix 20mg daily - continue on Entresto - monitor electrolytes and renal function - monitor for s/sxs of fluid overload Chronic respiratory failure COPD Multilobar pneumonia, resolved - Pulmonary medicine following, appreciate assistance - Status post tracheostomy on 11/24/2016. Currently on T piece. Continue on Levsin prn for secretions. - completed antibiotic course with Tobramycin, course ended on 01/20/17. - Continue DuoNebs when necessary - supplement O2 to keep O2 sats > 90% Atrial fibrillation plus recent SVT - Cardiology signed off, stable - rate controlled - Continue Metoprolol 25mg q12hr and Coumadin - confirmed with Dr. Flores patient to continue Coumadin WITHOUT ASA. - INR subtherapeutic 1.6. Pharmacy to dose. Continue to monitor INR. Anasarca - Continue Lasix 20 mg IV daily Dysphagia Hypoalbuminemia - s/p PEG placement - continue Jevity 1.5 through PEG tube with Corby supplementation. - Continue TF continuous 60ml per hour New onset DM - HgbA1c 6.5 - continue with accucheks and ISS - BS controlled Sacral/Coccyx wound - Specialty bed ordered, continue - Wound care following - per theirs and plastics recs - Daily cleansing the wound with gauze and dakin's solutions, then applying a nickel-thick portion of santyl to the entire wound bed, then packing with dakin's soaked gauze. This should be covered with ABD and secured with tape. Anemia, microcytic, hypochromic - stable - iron studies-iron 33, TIBC 307, % sat 10.8, ferritin 346. Continue iron supplementation. - stool hemoccult negative - monitor intermittently - am labs ordered GI Prophylaxis: Pepcid. DVT prophylaxis: SCDs. Coumadin. Full code. Discussed with patients daughter and Dr. Boateng Discharge Planning Patient will need long-term care facility. CM continuing to seek placement. Last CM note:02/22/17- No accepting facility at this time. Barrier: payer is Medicaid and pt is too expensive with PEG and trach. Possibly can be placed with one or the other but not both. Attending Statement The exam, history, and the medical decision-making described in the above note were completed with the assistance of the mid-level provider. I reviewed and agree with the findings presented. I attest that I had a [id number] encounter with the patient on the same day, and personally performed and documented my assessment and findings in the medical record. daughter at bedside, thinks mother is squeezing her hand, no concerns about pt at this time. pt is non verbal on exam, pt has eyes open, is non verbal. HR appears regular, lungs w some upper airway noise but no wheezing. pt does seem to be holding my hand but not on command Per CM notes, it is a difficult placement at this time due to pt's insurance. For now will continue management. Tova March Apr 11, 2017 14:06 Reina Boateng MD Apr 11, 2017 16:18
[2017-04-11] MEDS ORDERED: WARFARIN SOD 2.5 MG TAB PEG ONE (17:15)
--- NOTE | 2017-04-11 17:22 | HHI.PR ---
Subjective Remarks 66 YOWF with Rf, s/p trach H/O CVA,Arango Arango disease On trach collar Mod amount of trach secretions No new complaint Objective Vital Signs Vital Signs Date Time Temp Pulse Resp B/P (MAP) Pulse Ox O2 Delivery O2 Flow Rate FiO2 04/11/17 16:26 99 T-piece 6.00 28 04/11/17 12:07 100 T-piece 7.00 28 04/11/17 12:00 98.0 107 20 130/70 (90) 100 04/11/17 09:01 100 T-piece 6.00 28 04/11/17 08:00 97.3 87 20 106/57 (73) 100 04/11/17 07:41 89 04/11/17 04:00 98.5 85 20 95/53 (67) 99 04/11/17 00:00 98.6 97 20 116/57 (76) 100 04/10/17 20:00 89 04/10/17 20:00 100 Trach Collar 5.00 28 T-Piece Humidified 04/10/17 20:00 98.3 95 20 122/56 (78) 99 I/O 04/10/17 04/10/17 04/10/17 04/11/17 04/11/17 04/11/17 07:00 15:00 23:00 07:00 15:00 23:00 Intake Total 1683 ml 1165 ml Output Total 400 ml 600 ml 1000 ml Balance 1283 ml -600 ml 165 ml Intake Oral 0 ml 0 ml Tube Feeding 1083 ml 565 ml Other 600 ml 600 ml Output Urine Total 400 ml 600 ml 1000 ml # Bowel Movements 1 1 2 Objective Remarks GENERAL: MBMN WF, on Trach collar SKIN: Warm and dry. HEAD: Normocephalic. EYES: No scleral icterus. No injection or drainage. NECK: Supple, trachea midline. No JVD or lymphadenopathy. has trach CARDIOVASCULAR: Regular rate and rhythm without murmurs, gallops, or rubs. RESPIRATORY: Breath sounds equal bilaterally. No accessory muscle use. GASTROINTESTINAL: Abdomen soft, non-tender, nondistended. has PEG MUSCULOSKELETAL: No cyanosis, or edema. BACK: Nontender without obvious deformity. No CVA tenderness. A/P Assessment and Plan RF, S/P Trach CVA Arango arango disease CAD COPD SZ disorder PLAN: Aerosol nebs Cont trach collar supplement keep sat >90%. TF Cont Levsin.prn Vernon Catalan RN, MD Apr 11, 2017 17:22
[2017-04-11] MEDS: WARFARIN SOD 7.5 MG TAB PEG SCH (17:35)
[2017-04-12] VITALS (12 sets, daily range): BP systolic 94–144; BP diastolic 54–86; PULSE 79–103; RESP 18–20; TEMP 97.8–99.9; O2SAT 97–100
[2017-04-12] MEDS: METOPROLOL TARTRATE 25 MG TAB G-TUBE SCH ×4 (01:40→17:31)
[2017-04-12] MEDS: HYOSCYAMINE SOLN 0.125 MG/ML 15 ML BTL G-TUBE SCH ×5 (01:41→22:37)
[2017-04-12] MEDS: CHLORHEXIDINE GLUCONATE 2 % 1 PACK (2 CLOTHS) TOP SCH (04:00)
[2017-04-12] MEDS: FREE WATER G-TUBE SCH ×3 (06:25→22:41)
[2017-04-12] MEDS: RESP: IPRATROPIUM 0.5 MG/2.5 ML NEB NEB SCH ×4 (08:08→20:52)
[2017-04-12] MEDS: LACTULOSE SYRUP 20 GM/30 ML CUP G-TUBE SCH ×2 (08:49→22:39)
[2017-04-12] MEDS: SENNOSIDES SYRUP 8.8 MG/5 ML CUP G-TUBE SCH ×2 (08:49→22:39)
[2017-04-12] MEDS: FERROUS SULFATE 300 MG /5ML UDC PEG SCH ×2 (08:49→22:39)
[2017-04-12] MEDS: levETIRAcetam 500 MG/5 ML UDC PEG SCH ×2 (08:49→22:39)
[2017-04-12] MEDS: FAMOTIDINE 20 MG TAB PEG SCH ×2 (08:50→22:40)
[2017-04-12] MEDS: carBAMazepine SUSP 200 MG/10 ML UDC PEG SCH ×2 (08:50→22:40)
[2017-04-12] MEDS: ATORVASTATIN 40 MG TAB G-TUBE SCH (08:51)
[2017-04-12] MEDS: BROMOCRIPTINE MESYLATE 2.5 MG TAB PEG SCH ×2 (08:51→22:40)
[2017-04-12] MEDS: SACUBITRIL/VALSARTAN 24 MG-26 MG TAB PEG SCH ×2 (08:51→22:40)
[2017-04-12] MEDS: SODIUM CHLORIDE 0.9% FLUSH 10 ML FLUSH IV FLUSH SCH ×2 (08:53→22:42)
[2017-04-12] MEDS: ASCORBIC ACID 500 MG TAB PEG SCH ×2 (08:53→22:40)
[2017-04-12] MEDS: FUROSEMIDE 20 MG/2 ML VIAL IV PUSH SCH (08:53)
[2017-04-12] MEDS: SODIUM HYPOCHLORITE 0.25% 500 ML BTL TOPICAL SCH (08:56)
[2017-04-12] MEDS: CHLORHEXIDINE 0.12% (ORAL KIT) 15 ML CUP MT SCH ×2 (08:56→22:36)
[2017-04-12] MEDS: POVIDONE IODINE 10% OINT 30 GM TUBE TOPICAL SCH (08:57)
[2017-04-12] MEDS: COLLAGENASE OINT 30 GM TUBE TOPICAL SCH (08:58)
[2017-04-12] MEDS: FOLIC ACID 1 MG TAB PEG SCH (08:59)
[2017-04-12] MEDS: POTASSIUM CHLORIDE 20 MEQ PWD PACKET PEG SCH (08:59)
[2017-04-12] MEDS: JUVEN POWDER 1 PACK G-TUBE SCH ×2 (08:59→22:42)
[2017-04-12] MEDS: INSULIN ASPART SUPPLEMENTAL SCALE SQ SCH ×2 (09:00→21:00)
[2017-04-12 09:13] LABS: AUTOMATED NEUTROPHIL # 9.2 TH/MM3 (1.8-7.7); BASOPHIL # 0.1 TH/MM3 (0-0.2); BASOPHIL % 0.4 % (0.0-2.0); EOSINOPHIL # 0.3 TH/MM3 (0-0.4); EOSINOPHIL % 2.1 % (0.0-4.0); HEMO FLAGS DIFF FINAL; LYMPH % 13.9 % (9.0-44.0); LYMPHOCYTE # 1.7 TH/MM3 (1.0-4.8); MEAN CELL VOLUME 75.1 FL (80.0-100.0); MEAN CORPUSCULAR HEMOGLOBIN 23.2 PG (27.0-34.0); MEAN CORPUSCULAR HGB CONC 30.9 % (32.0-36.0); MONO % 8.7 % (0.0-8.0); NEUT % 74.9 % (16.0-70.0); PLATELET COUNT 597 TH/MM3 (150-450); RED BLOOD COUNT 4.26 MIL/MM3 (4.00-5.30); RED CELL DISTRIBUTION WIDTH 19.9 % (11.6-17.2); WHITE BLOOD COUNT 12.2 TH/MM3 (4.0-11.0)
[2017-04-12 09:20] LABS: INTERNATIONAL NORMALIZED RATIO 1.8 RATIO; PROTHROMBIN TIME - PATIENT 20.4 SEC (9.8-11.6)
[2017-04-12 10:00] LABS: BICARBONATE 26.1 MEQ/L (21.0-32.0)
[2017-04-12 10:09] LABS: POTASSIUM 4.1 MEQ/L (3.5-5.1)
[2017-04-12] MEDS: WARFARIN SOD 7.5 MG TAB PEG SCH (17:30)
--- NOTE | 2017-04-12 19:14 | HHI.PR ---
Subjective Remarks Follow up on patient with Moyamoya disease, bilateral frontal CVAs. Patient seen and examined today. non-verbal and not involved in her care. Patients with eyes open. Discussed with RN at bed side who was performing wound care. No acute issues noted overnight or since start of shift. Objective Vitals Vital Signs Date Time Temp Pulse Resp B/P (MAP) Pulse Ox O2 Delivery O2 Flow Rate FiO2 04/12/17 16:58 100 T-piece 6.00 28 04/12/17 16:00 99.9 92 20 97/55 (69) 99 04/12/17 12:27 100 T-piece 6.00 28 04/12/17 12:00 98.4 94 20 107/66 (80) 97 04/12/17 08:30 100 Trach Collar 6.00 28 T-Piece Humidified 04/12/17 08:30 79 04/12/17 08:13 100 T-piece 6.00 28 04/12/17 08:11 100 T-piece 6.00 28 04/12/17 08:00 98.4 83 20 94/54 (67) 100 04/12/17 04:00 98.5 98 20 144/86 (105) 97 04/12/17 00:00 97.8 103 18 128/64 (85) 100 04/11/17 20:58 97 T-piece 7.00 28 04/11/17 20:00 104 04/11/17 20:00 100 Trach Collar 7.00 28 T-Piece Humidified 04/11/17 20:00 98.3 104 20 132/62 (85) 100 I/O 04/11/17 04/11/17 04/11/17 04/12/17 04/12/17 04/12/17 06:59 14:59 22:59 06:59 14:59 22:59 Intake Total 1165 ml 991 ml 1071 ml 463 ml Output Total 1000 ml 900 ml 900 ml 800 ml Balance 165 ml 91 ml 171 ml 463 ml -800 ml Intake Oral 0 ml 0 ml IV Total 0 ml Tube Feeding 565 ml 691 ml 671 ml 463 ml Tube Irrigant 300 ml 400 ml Other 600 ml Output Urine Total 1000 ml 900 ml 900 ml 800 ml # Bowel Movements 2 2 1 1 Result Diagram: 04/12/17 0845 04/12/17 0845 Objective Remarks GENERAL: Pt encountered laying a bed, T-piece in place, eyes open throughout, in NAD. SKIN: Warm and dry. No pitting edema noted along forearms and feet this afternoon. sacral wound noted measuring roughly 8 cm long by 2 cm wide. Depth not determined. Tissue evidencing various degrees of healing. HEAD: Normocephalic. EYES: No scleral icterus. No injection or drainage. NECK: Supple, t-piece in place. CARDIOVASCULAR: Regular rate and rhythm without murmurs, gallops, or rubs. RESPIRATORY: Breath sounds equal bilaterally, without rhonchi or wheezes. 100% oxygenation per bedside monitor. GASTROINTESTINAL: Abdomen soft, non-tender non-distended. G-tube in place MUSCULOSKELETAL: No cyanosis. Bilateral SCD's in place as were bilateral off loading boots. Neurological: Pt not responding to commands. Procedures PEG 11/24/2016 Percutaneous tracheostomy. 11/18/2016 Moderate encephalopathy with suggestion of left temporal region cortical irritability. No active seizures. Clinical correlation. Echocardiogram Severe dilated left ventricle. Wall thickness is normal. The left ventricular systolic function is moderately reduced with an estimated ejection fraction in the range of 35-40%. Doppler parameters are consistent with a restrictive left ventricular filling pattern indicative of decreased left ventricular diastolic compliance and increase left atrial pressure (grade 3 diastolic dysfunction). There is severe tricuspid regurgitation. There is severe pulmonary hypertension present ( > 70 mmHg). Severe mitral valve regurgitation. Medications and IVs Current Medications Medications (Trade) Dose Ordered Sig/Ora Route Start Time Stop Time Status Last Admin (Peridex 0.12% Liq) 15 ml BID@08,20 MT 11/18/16 08:00 04/12/17 08:56 (NS Flush) 2 ml BID IV FLUSH 11/18/16 09:00 04/12/17 08:53 (Morphine Inj) 2 mg Q2H PRN IV 11/18/16 03:30 03/27/17 10:13 (Zofran Inj) 4 mg Q6H PRN IV 11/18/16 03:30 11/26/16 03:20 Miscellaneous Information 1 Q361D XX 11/18/16 03:30 11/18/16 03:30 (Chlorhexidine 2% Cloth) Taper DAILY@04 TOP 11/18/16 04:00 11/14/17 03:59 04/06/17 04:33 (Chlorhexidine 2% Cloth) 3 pack UNSCH PRN TOP 11/18/16 03:30 (Dulcolax Supp) 10 mg DAILY PRN RECTAL 12/14/16 15:45 (TEGretol LIQ) 200 mg Q12HR PEG 01/06/17 09:00 04/12/17 08:50 (Corby Powder) 1 pack BID G-TUBE 01/13/17 09:00 04/12/17 08:59 (Ferrous Sulfate Liq) 300 mg BID PEG 01/26/17 21:00 04/12/17 08:49 (Vitamin C) 500 mg BID PEG 01/26/17 21:00 04/12/17 08:53 ([place] 5-325 Mg) 1 tab Q4H PRN G-TUBE 02/01/17 11:30 04/09/17 20:25 (Tylenol) 650 mg Q6H PRN G-TUBE 02/01/17 09:30 04/07/17 22:09 (Lipitor) 40 mg DAILY G-TUBE 02/01/17 09:00 04/12/17 08:51 (Senna Liq) 8.8 mg BID G-TUBE 02/01/17 09:00 04/12/17 08:49 (D50w (Vial) Inj) 25 ml UNSCH PRN IV PUSH 02/01/17 09:15 (Glucagon Inj) 1 mg UNSCH PRN OTHER 02/01/17 09:15 (Dakin'S 0.25% Soln) USE DAILY WITH DRESS... DAILY TOPICAL 02/12/17 18:00 04/12/17 08:56 (Betadine 10% Oint) 1 applic DAILY TOPICAL 02/15/17 09:00 04/12/17 08:57 (Zaroxolyn) 5 mg DAILY PEG 03/09/17 09:00 Future Hold 04/06/17 11:31 (Entresto 24-26 Mg) 1 tab BID PEG 03/08/17 21:00 04/12/17 08:51 (Free Water) VOLUME OF WATER: ( 300 ) ML Q8HR G-TUBE 03/09/17 14:00 04/12/17 14:00 (Levsin Liq) 0.125 mg Q6H G-TUBE 03/10/17 18:00 04/12/17 17:31 (Lasix Inj) 20 mg DAILY IV PUSH 03/16/17 11:30 04/11/17 10:13 (NovoLOG SUPPLEMENTAL SCALE) 1 BID SQ 03/20/17 21:00 03/22/17 22:04 (Albuterol Neb) 0.63 mg Q4HR NEB PRN NEB 03/21/17 09:15 (Atrovent Neb) 0.5 mg QID NEB NEB 03/21/17 12:00 04/12/17 16:57 (Lopressor) 50 mg Q6HR G-TUBE 03/27/17 18:00 04/12/17 14:02 Pharmacy Profile Note 0 ml @ 0 mls/hr UNSCH OTHER 04/05/17 14:45 (Parlodel) 2.5 mg Q12HR PEG 04/07/17 21:00 04/12/17 08:51 (Pepcid) 20 mg BID PEG 04/07/17 21:00 04/12/17 08:50 (Folate) 1 mg DAILY PEG 04/08/17 09:00 04/12/17 08:59 (Lactulose Liq) 30 ml BID G-TUBE 04/07/17 21:00 04/12/17 08:49 (Keppra Liq) 1,000 mg Q12HR PEG 04/07/17 21:00 04/12/17 08:49 (KCl Powder) 20 meq DAILY PEG 04/08/17 09:00 04/12/17 08:59 (Santyl Oint) 1 applic DAILY TOPICAL 04/07/17 16:30 04/12/17 08:58 (Coumadin) 7.5 mg DAILY@16 PEG 04/09/17 16:00 04/12/17 17:30 Urinary Catheter: Yes Assessment to: Continue Brown insert reason: Prolonged Immobilization 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 Status: Acute (2) Seizure ICD Code: R56.9 - Unspecified convulsions Status: Acute (3) CVA (cerebral vascular accident) ICD Code: I63.9 - Cerebral infarction, unspecified Status: Acute (4) Respiratory failure, acute ICD Code: J96.00 - Acute respiratory failure, unspecified whether with hypoxia or hypercapnia Status: Acute (5) COPD (chronic obstructive pulmonary disease) ICD Code: J44.9 - Chronic obstructive pulmonary disease, unspecified Status: Chronic (6) Acute hypernatremia ICD Code: E87.0 - Hyperosmolality and hypernatremia Status: Resolved (7) Microcytic anemia ICD Code: D50.9 - Iron deficiency anemia, unspecified Assessment and Plan Ms. Rivas is a 66-year-old female with a history of stroke who was admitted to the [facility] on 11/04/2016 due to difficulty getting her thoughts together. She was found to have multifocal nonhemorrhagic infarctions in the frontal and parietal regions. She was initially awake and following commands with weakness of RLE and some aphasia. She was transferred to [facility] where he had an cerebral angiogram consistent with moyamoya. There were plans to perform extracranial/intracranial bypass. However, she had a seizure and ended up being intubated for status epilepticus 11/09 or 11/10. She was found to have a new right frontal infarct area and she was started on Dilantin and Keppra and it was felt that she would not be a candidate for intervention. She has since undergone PEG placement. Apparently family requested transfer back to [place] because they live locally and wanted her closer to home. Patient remained under critical care medicine until 12/24/2016. Hypotension: RN holding afternoon metoprolol. Monitor. hyperammonemia: Level 17. INR subtherapeutic. Lovenox 40 mg Viridans strep bacteremia - resolved - ID following. Per ID, sputum cx with GNR and staph aureus ? colonization. Urine with Kleb pneumo and E Coli ? colonization - Repeat blood cx 03/23 shows no growth in 5 days. 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 at [facility] October 2016 Seizure disorder - Continue Keppra 1000mg BID - Continue Tegretol 200mg q 12h - Follow for seizure activity - no recent seizure activity noted - Continue Bromocriptine - Keppra level 25.3 04/05 - Tegretol level 7.1 03/31 Hyperammonemia - trending down - continue Lactulose 30mg BID - continue to monitor ammonia level as indicated - repeat level ordered for 9/5, level was 17. Hyponatremia - improved Mixed systolic and diastolic heart failure, stable - echocardiogram 02/02/17 shows EF 35-40%, grade 3 diastolic dysfunction, severe tricuspid regurgitation, severe pulmonary HTN and severe mitral valve regurgitation. - continue Lasix 20mg daily - continue on Entresto - monitor electrolytes and renal function - monitor for s/sxs of fluid overload Chronic respiratory failure COPD Multilobar pneumonia, resolved - Pulmonary medicine following, appreciate assistance - Status post tracheostomy on 11/24/2016. Currently on T piece. Continue on Levsin prn for secretions. - completed antibiotic course with Tobramycin, course ended on 01/20/17. - Continue DuoNebs when necessary - supplement O2 to keep O2 sats > 90% Atrial fibrillation plus recent SVT - Cardiology signed off, stable - rate controlled - Continue Metoprolol 25mg q12hr and Coumadin - confirmed with Dr. Flores patient to continue Coumadin WITHOUT ASA. - INR subtherapeutic 1.6. Pharmacy to dose. Continue to monitor INR. Anasarca - Continue Lasix 20 mg IV daily Dysphagia Hypoalbuminemia - s/p PEG placement - continue Jevity 1.5 through PEG tube with Corby supplementation. - Continue TF continuous 60ml per hour New onset DM - HgbA1c 6.5 - continue with accu-checks and sliding scale insulin - BS controlled Sacral/Coccyx wound - Specialty bed ordered, continue - Wound care following - per theirs and plastics recs - Daily cleansing the wound with gauze and Dakin's solutions, then applying a nickel-thick portion of santyl to the entire wound bed, then packing with Dakin's soaked gauze. This should be covered with ABD and secured with tape. Anemia, microcytic, hypochromic - stable - iron studies-iron 33, TIBC 307, % sat 10.8, ferritin 346. Continue iron supplementation. - stool hemoccult negative - monitor intermittently - am labs ordered GI Prophylaxis: Pepcid. DVT prophylaxis: SCDs. Coumadin. Full code. Discussed with RN and Dr. Melgar Discharge Planning CM notes reviewed. Difficulty finding placement facilities that would take pt with trach and peg. CM continuing to address placement. Trell Torres Jr. Apr 12, 2017 19:14
--- NOTE | 2017-04-12 19:54 | HHI.PR ---
Subjective Remarks 66 YOWF with Rf, s/p trach H/O CVA,Arango Arango disease On trach collar Mod amount of trach secretions Objective Vital Signs Vital Signs Date Time Temp Pulse Resp B/P (MAP) Pulse Ox O2 Delivery O2 Flow Rate FiO2 04/12/17 16:58 100 T-piece 6.00 28 04/12/17 16:00 99.9 92 20 97/55 (69) 99 04/12/17 12:27 100 T-piece 6.00 28 04/12/17 12:00 98.4 94 20 107/66 (80) 97 04/12/17 08:30 100 Trach Collar 6.00 28 T-Piece Humidified 04/12/17 08:30 79 04/12/17 08:13 100 T-piece 6.00 28 04/12/17 08:11 100 T-piece 6.00 28 04/12/17 08:00 98.4 83 20 94/54 (67) 100 04/12/17 04:00 98.5 98 20 144/86 (105) 97 04/12/17 00:00 97.8 103 18 128/64 (85) 100 04/11/17 20:58 97 T-piece 7.00 28 04/11/17 20:00 104 04/11/17 20:00 100 Trach Collar 7.00 28 T-Piece Humidified 04/11/17 20:00 98.3 104 20 132/62 (85) 100 I/O 04/11/17 04/11/17 04/11/17 04/12/17 04/12/17 04/12/17 07:00 15:00 23:00 07:00 15:00 23:00 Intake Total 1165 ml 991 ml 1071 ml 463 ml Output Total 1000 ml 900 ml 900 ml 800 ml Balance 165 ml 91 ml 171 ml 463 ml -800 ml Intake Oral 0 ml 0 ml IV Total 0 ml Tube Feeding 565 ml 691 ml 671 ml 463 ml Tube Irrigant 300 ml 400 ml Other 600 ml Output Urine Total 1000 ml 900 ml 900 ml 800 ml # Bowel Movements 2 2 1 1 Result Diagram: 04/12/17 0845 04/12/17 0845 Objective Remarks GENERAL: MBMN WF, on Trach collar SKIN: Warm and dry. HEAD: Normocephalic. EYES: No scleral icterus. No injection or drainage. NECK: Supple, trachea midline. No JVD or lymphadenopathy. has trach CARDIOVASCULAR: Regular rate and rhythm without murmurs, gallops, or rubs. RESPIRATORY: Breath sounds equal bilaterally. No accessory muscle use. GASTROINTESTINAL: Abdomen soft, non-tender, nondistended. has PEG MUSCULOSKELETAL: No cyanosis, or edema. BACK: Nontender without obvious deformity. No CVA tenderness. A/P Assessment and Plan RF, S/P Trach CVA Arango arango disease CAD COPD SZ disorder PLAN: Aerosol nebs Cont trach collar supplement 02, keep sat >90%. TF Cont Levsin.prn Vernon Marx MD Apr 12, 2017 19:54
[2017-04-12] MEDS ORDERED: ENOXAPARIN SODIUM 40 MG/0.4 ML SYRINGE SQ ONE (21:00)
[2017-04-13] VITALS (9 sets, daily range): BP systolic 111–130; BP diastolic 54–85; PULSE 84–100; RESP 18–20; TEMP 98–98.6; O2SAT 96–100
[2017-04-13] MEDS: CHLORHEXIDINE GLUCONATE 2 % 1 PACK (2 CLOTHS) TOP SCH (04:00)
[2017-04-13] MEDS: FREE WATER G-TUBE SCH ×3 (07:11→21:23)
[2017-04-13] MEDS: HYOSCYAMINE SOLN 0.125 MG/ML 15 ML BTL G-TUBE SCH ×3 (07:11→17:42)
[2017-04-13] MEDS: METOPROLOL TARTRATE 25 MG TAB G-TUBE SCH ×4 (07:11→17:42)
[2017-04-13 07:45] LABS: INTERNATIONAL NORMALIZED RATIO 1.7 RATIO; PROTHROMBIN TIME - PATIENT 19.1 SEC (9.8-11.6)
[2017-04-13] MEDS: RESP: IPRATROPIUM 0.5 MG/2.5 ML NEB NEB SCH ×4 (08:26→19:23)
[2017-04-13] MEDS: INSULIN ASPART SUPPLEMENTAL SCALE SQ SCH ×2 (09:00→21:00)
[2017-04-13] MEDS: ATORVASTATIN 40 MG TAB G-TUBE SCH (09:45)
[2017-04-13] MEDS: BROMOCRIPTINE MESYLATE 2.5 MG TAB PEG SCH ×2 (09:45→21:21)
[2017-04-13] MEDS: carBAMazepine SUSP 200 MG/10 ML UDC PEG SCH ×2 (09:45→21:21)
[2017-04-13] MEDS: FAMOTIDINE 20 MG TAB PEG SCH ×2 (09:45→21:21)
[2017-04-13] MEDS: FERROUS SULFATE 300 MG /5ML UDC PEG SCH ×2 (09:45→21:21)
[2017-04-13] MEDS: FUROSEMIDE 20 MG/2 ML VIAL IV PUSH SCH (09:45)
[2017-04-13] MEDS: ASCORBIC ACID 500 MG TAB PEG SCH ×2 (09:45→21:21)
[2017-04-13] MEDS: FOLIC ACID 1 MG TAB PEG SCH (09:45)
[2017-04-13] MEDS: LACTULOSE SYRUP 20 GM/30 ML CUP G-TUBE SCH ×2 (09:45→21:21)
[2017-04-13] MEDS: levETIRAcetam 500 MG/5 ML UDC PEG SCH ×2 (09:46→21:21)
[2017-04-13] MEDS: SENNOSIDES SYRUP 8.8 MG/5 ML CUP G-TUBE SCH ×2 (09:46→21:21)
[2017-04-13] MEDS: SODIUM CHLORIDE 0.9% FLUSH 10 ML FLUSH IV FLUSH SCH ×2 (09:46→21:22)
[2017-04-13] MEDS: SACUBITRIL/VALSARTAN 24 MG-26 MG TAB PEG SCH ×2 (09:46→21:21)
[2017-04-13] MEDS: SODIUM HYPOCHLORITE 0.25% 500 ML BTL TOPICAL SCH (09:47)
[2017-04-13] MEDS: COLLAGENASE OINT 30 GM TUBE TOPICAL SCH (09:47)
[2017-04-13] MEDS: POVIDONE IODINE 10% OINT 30 GM TUBE TOPICAL SCH (10:07)
[2017-04-13] MEDS: JUVEN POWDER 1 PACK G-TUBE SCH ×2 (10:07→21:22)
[2017-04-13] MEDS: CHLORHEXIDINE 0.12% (ORAL KIT) 15 ML CUP MT SCH ×2 (10:08→21:22)
[2017-04-13] MEDS: POTASSIUM CHLORIDE 20 MEQ PWD PACKET PEG SCH (10:09)
[2017-04-13] MEDS ORDERED: WARFARIN SOD 2.5 MG TAB PEG ONE (16:00)
--- NOTE | 2017-04-13 17:01 | HHI.PR ---
Subjective Remarks Follow up on patient with Moyamoya disease, bilateral frontal CVAs. Patient seen and examined today. non-verbal and not involved in her care. Patients with eyes open. 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 Discussed with RN (Cathy). No acute issues noted overnight or since start of shift. RN reported pt "gripped my hand when I asked her to." Objective Vitals Vital Signs Date Time Temp Pulse Resp B/P (MAP) Pulse Ox O2 Delivery O2 Flow Rate FiO2 04/13/17 15:16 100 T-piece 6.00 28 04/13/17 15:16 100 T-piece 6.00 28 04/13/17 09:10 86 04/13/17 09:10 T-Piece 6.00 28 04/13/17 08:26 98 T-piece 28 04/13/17 08:26 98 T-piece 28 04/13/17 08:00 98.6 87 19 120/56 (77) 98 04/13/17 04:00 98.4 84 18 113/55 (74) 100 04/13/17 00:00 98.0 89 18 111/59 (76) 100 04/12/17 20:54 99 T-piece 28 04/12/17 20:00 100 Trach Collar 7.00 28 T-Piece Humidified 04/12/17 20:00 98.9 87 18 101/56 (71) 98 04/12/17 16:58 100 T-piece 6.00 28 I/O 04/12/17 04/12/17 04/12/17 04/13/17 04/13/17 04/13/17 07:00 15:00 23:00 07:00 15:00 23:00 Intake Total 1071 ml 463 ml 0 ml Output Total 900 ml 800 ml 1300 ml Balance 171 ml 463 ml -800 ml -1300 ml Intake Oral 0 ml 0 ml IV Total 0 ml Tube Feeding 671 ml 463 ml Tube Irrigant 400 ml Output Urine Total 900 ml 800 ml 1300 ml # Bowel Movements 1 1 0 Result Diagram: 04/12/17 0845 04/12/17 0845 Imaging Last Impressions Chest X-Ray 03/20/17 0000 Signed Impressions: Service Date/Time: Monday, March 20, 2017 11:37 - CONCLUSION: Stable appearance with no acute cardiopulmonary disease. Lenny Kerns MD Abdomen X-Ray 02/11/17 0000 Signed Impressions: Service Date/Time: Saturday, February 11, 2017 17:52 - CONCLUSION: Minimal colonic distention. Kenneth Frost MD FACR Catheter Change 02/10/17 0000 Signed Impressions: Service Date/Time: February 13:47 - CONCLUSION: Uncomplicated fluoroscopic guided gastrostomy tube replacement. Positioning confirmed. The tube can be used immediately. Nghia Pacheco MD Lower Extremity Ultrasound 02/01/17 0000 Signed Impressions: Service Date/Time: Wednesday, February 01, 2017 13:23 - CONCLUSION: Normal examination. 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 Sami Mccarthy MD Objective Remarks GENERAL: Pt encountered laying a bed, T-piece in place, eyes open throughout, in NAD. SKIN: Warm and dry. No pitting edema noted along forearms and feet this afternoon. HEAD: Normocephalic. EYES: No scleral icterus. No injection or drainage. NECK: Supple, t-piece in place. CARDIOVASCULAR: Regular rate and rhythm without murmurs, gallops, or rubs. RESPIRATORY: Breath sounds equal bilaterally, without rhonchi or wheezes. 100% oxygenation per bedside monitor. GASTROINTESTINAL: Abdomen soft, non-tender non-distended. G-tube in place MUSCULOSKELETAL: No cyanosis. Bilateral SCD's in place as were bilateral off loading boots. Neurological: Pt tracking on a limited basis and followed limited command. Procedures PEG 11/24/2016 Percutaneous tracheostomy. 11/18/2016 Moderate encephalopathy with suggestion of left temporal region cortical irritability. No active seizures. Clinical correlation. Echocardiogram Severe dilated left ventricle. Wall thickness is normal. The left ventricular systolic function is moderately reduced with an estimated ejection fraction in the range of 35-40%. Doppler parameters are consistent with a restrictive left ventricular filling pattern indicative of decreased left ventricular diastolic compliance and increase left atrial pressure (grade 3 diastolic dysfunction). There is severe tricuspid regurgitation. There is severe pulmonary hypertension present ( > 70 mmHg). Severe mitral valve regurgitation. Medications and IVs Current Medications Medications (Trade) Dose Ordered Sig/Ora Route Start Time Stop Time Status Last Admin (Peridex 0.12% Liq) 15 ml BID@08,20 MT 11/18/16 08:00 04/13/17 10:08 (NS Flush) 2 ml BID IV FLUSH 11/18/16 09:00 04/13/17 09:46 (Morphine Inj) 2 mg Q2H PRN IV 11/18/16 03:30 03/27/17 10:13 (Zofran Inj) 4 mg Q6H PRN IV 11/18/16 03:30 11/26/16 03:20 Miscellaneous Information 1 Q361D XX 11/18/16 03:30 11/18/16 03:30 (Chlorhexidine 2% Cloth) Taper DAILY@04 TOP 11/18/16 04:00 11/14/17 03:59 04/06/17 04:33 (Chlorhexidine 2% Cloth) 3 pack UNSCH PRN TOP 11/18/16 03:30 (Dulcolax Supp) 10 mg DAILY PRN RECTAL 12/14/16 15:45 (TEGretol LIQ) 200 mg Q12HR PEG 01/06/17 09:00 04/13/17 09:45 (Corby Powder) 1 pack BID G-TUBE 01/13/17 09:00 04/13/17 10:07 (Ferrous Sulfate Liq) 300 mg BID PEG 01/26/17 21:00 04/13/17 09:45 (Vitamin C) 500 mg BID PEG 01/26/17 21:00 04/13/17 09:45 ([place] 5-325 Mg) 1 tab Q4H PRN G-TUBE 02/01/17 11:30 04/09/17 20:25 (Tylenol) 650 mg Q6H PRN G-TUBE 02/01/17 09:30 04/07/17 22:09 (Lipitor) 40 mg DAILY G-TUBE 02/01/17 09:00 04/13/17 09:45 (Senna Liq) 8.8 mg BID G-TUBE 02/01/17 09:00 04/13/17 09:46 (D50w (Vial) Inj) 25 ml UNSCH PRN IV PUSH 02/01/17 09:15 (Glucagon Inj) 1 mg UNSCH PRN OTHER 02/01/17 09:15 (Dakin'S 0.25% Soln) USE DAILY WITH DRESS... DAILY TOPICAL 02/12/17 18:00 04/13/17 09:47 (Betadine 10% Oint) 1 applic DAILY TOPICAL 02/15/17 09:00 04/13/17 10:07 (Zaroxolyn) 5 mg DAILY PEG 03/09/17 09:00 Future Hold 04/06/17 11:31 (Entresto 24-26 Mg) 1 tab BID PEG 03/08/17 21:00 04/13/17 09:46 (Free Water) VOLUME OF WATER: ( 300 ) ML Q8HR G-TUBE 03/09/17 14:00 04/13/17 15:23 (Levsin Liq) 0.125 mg Q6H G-TUBE 03/10/17 18:00 04/13/17 12:24 (Lasix Inj) 20 mg DAILY IV PUSH 03/16/17 11:30 04/13/17 09:45 (NovoLOG SUPPLEMENTAL SCALE) 1 BID SQ 03/20/17 21:00 03/22/17 22:04 (Albuterol Neb) 0.63 mg Q4HR NEB PRN NEB 03/21/17 09:15 (Atrovent Neb) 0.5 mg QID NEB NEB 03/21/17 12:00 04/13/17 15:16 (Lopressor) 50 mg Q6HR G-TUBE 03/27/17 18:00 04/13/17 12:22 Pharmacy Profile Note 0 ml @ 0 mls/hr UNSCH OTHER 04/05/17 14:45 (Parlodel) 2.5 mg Q12HR PEG 04/07/17 21:00 04/13/17 09:45 (Pepcid) 20 mg BID PEG 04/07/17 21:00 04/13/17 09:45 (Folate) 1 mg DAILY PEG 04/08/17 09:00 04/13/17 09:45 (Lactulose Liq) 30 ml BID G-TUBE 04/07/17 21:00 04/13/17 09:45 (Keppra Liq) 1,000 mg Q12HR PEG 04/07/17 21:00 04/13/17 09:46 (KCl Powder) 20 meq DAILY PEG 04/08/17 09:00 04/13/17 10:09 (Santyl Oint) 1 applic DAILY TOPICAL 04/07/17 16:30 04/13/17 09:47 (Coumadin) 7.5 mg DAILY@16 PEG 04/09/17 16:00 04/12/17 17:30 Urinary Catheter: Yes Assessment to: Continue Brown insert reason: Prolonged Immobilization 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 Status: Acute (2) Seizure ICD Code: R56.9 - Unspecified convulsions Status: Acute (3) CVA (cerebral vascular accident) ICD Code: I63.9 - Cerebral infarction, unspecified Status: Acute (4) Respiratory failure, acute ICD Code: J96.00 - Acute respiratory failure, unspecified whether with hypoxia or hypercapnia Status: Acute (5) COPD (chronic obstructive pulmonary disease) ICD Code: J44.9 - Chronic obstructive pulmonary disease, unspecified Status: Chronic (6) Acute hypernatremia ICD Code: E87.0 - Hyperosmolality and hypernatremia Status: Resolved (7) Microcytic anemia ICD Code: D50.9 - Iron deficiency anemia, unspecified Assessment and Plan Ms. Rivas is a 66-year-old female with a history of stroke who was admitted to the [facility] on 11/04/2016 due to difficulty getting her thoughts together. She was found to have multifocal nonhemorrhagic infarctions in the frontal and parietal regions. She was initially awake and following commands with weakness of RLE and some aphasia. She was transferred to [facility] where he had an cerebral angiogram consistent with moyamoya. There were plans to perform extracranial/intracranial bypass. However, she had a seizure and ended up being intubated for status epilepticus 11/09 or 11/10. She was found to have a new right frontal infarct area and she was started on Dilantin and Keppra and it was felt that she would not be a candidate for intervention. She has since undergone PEG placement. Apparently family requested transfer back to [place] because they live locally and wanted her closer to home. Patient remained under critical care medicine until 12/24/2016. INR subtherapeutic (1.7). Lovenox 40 mg once ordered. Pharmacy continues to adjust Warfarin. Viridans strep bacteremia - resolved - ID following. Per ID, sputum cx with GNR and staph aureus ? colonization. Urine with Kleb pneumo and E Coli ? colonization - Repeat blood cx 03/23 shows no growth in 5 days. 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 at [facility] October 2016 Seizure disorder - Continue Keppra 1000mg BID - Continue Tegretol 200mg q 12h - Follow for seizure activity - no recent seizure activity noted - Continue Bromocriptine - Keppra level 25.3 04/05 - Tegretol level 7.1 03/31 Hyperammonemia - trending down - continue Lactulose 30mg BID - continue to monitor ammonia level as indicated - repeat level ordered for 04/12, level was 17. Hyponatremia - improved Mixed systolic and diastolic heart failure, stable - echocardiogram 02/02/17 shows EF 35-40%, grade 3 diastolic dysfunction, severe tricuspid regurgitation, severe pulmonary HTN and severe mitral valve regurgitation. - continue Lasix 20mg daily - continue on Entresto - monitor electrolytes and renal function - monitor for s/sxs of fluid overload Chronic respiratory failure COPD Multilobar pneumonia, resolved - Pulmonary medicine following, appreciate assistance - Status post tracheostomy on 11/24/2016. Currently on T piece. Continue on Levsin prn for secretions. - completed antibiotic course with Tobramycin, course ended on 01/20/17. - Continue DuoNebs when necessary - supplement O2 to keep O2 sats > 90% Atrial fibrillation plus recent SVT - Cardiology signed off, stable - rate controlled - Continue Metoprolol 25mg q12hr and Coumadin - confirmed with Dr. Flores patient to continue Coumadin WITHOUT ASA. - INR subtherapeutic 1.6. Pharmacy to dose. Continue to monitor INR. Anasarca - Continue Lasix 20 mg IV daily Dysphagia Hypoalbuminemia - s/p PEG placement - continue Jevity 1.5 through PEG tube with Corby supplementation. - Continue TF continuous 60ml per hour New onset DM - HgbA1c 6.5 - continue with accu-checks and sliding scale insulin - BS controlled Sacral/Coccyx wound - Specialty bed ordered, continue - Wound care following - per theirs and plastics recs - Daily cleansing the wound with gauze and Dakin's solutions, then applying a nickel-thick portion of santyl to the entire wound bed, then packing with Dakin's soaked gauze. This should be covered with ABD and secured with tape. Anemia, microcytic, hypochromic - stable - iron studies-iron 33, TIBC 307, % sat 10.8, ferritin 346. Continue iron supplementation. - stool hemoccult negative - monitor intermittently - am labs ordered GI Prophylaxis: Pepcid. DVT prophylaxis: SCDs. Coumadin. Full code. Discussed with RN and Dr. Melgar Discharge Planning CM notes reviewed. Difficulty finding placement facilities that would take pt with trach and peg. CM continuing to address placement. Trell Torres Jr. MADISYN Apr 13, 2017 17:01
[2017-04-13] MEDS: WARFARIN SOD 7.5 MG TAB PEG SCH (17:41)
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
[2017-04-13] MEDS ORDERED: ENOXAPARIN SODIUM 40 MG/0.4 ML SYRINGE SQ ONE (18:00)
[2017-04-14] VITALS (9 sets, daily range): BP systolic 97–121; BP diastolic 53–66; PULSE 81–98; RESP 18–26; TEMP 98–99.5; O2SAT 98–100
[2017-04-14] MEDS: CHLORHEXIDINE GLUCONATE 2 % 1 PACK (2 CLOTHS) TOP SCH (04:00)
[2017-04-14] MEDS: METOPROLOL TARTRATE 25 MG TAB G-TUBE SCH ×6 (06:04→23:50)
[2017-04-14] MEDS: FREE WATER G-TUBE SCH ×3 (06:04→22:00)
[2017-04-14] MEDS: HYOSCYAMINE SOLN 0.125 MG/ML 15 ML BTL G-TUBE SCH ×5 (06:04→23:49)
[2017-04-14] MEDS: RESP: IPRATROPIUM 0.5 MG/2.5 ML NEB NEB SCH ×4 (08:03→19:33)
[2017-04-14] MEDS: INSULIN ASPART SUPPLEMENTAL SCALE SQ SCH ×2 (09:00→21:00)
[2017-04-14 10:09] LABS: INTERNATIONAL NORMALIZED RATIO 1.7 RATIO; PROTHROMBIN TIME - PATIENT 19.4 SEC (9.8-11.6)
[2017-04-14] MEDS: LACTULOSE SYRUP 20 GM/30 ML CUP G-TUBE SCH ×2 (13:19→22:31)
[2017-04-14] MEDS: ATORVASTATIN 40 MG TAB G-TUBE SCH (13:19)
[2017-04-14] MEDS: JUVEN POWDER 1 PACK G-TUBE SCH ×2 (13:19→21:00)
[2017-04-14] MEDS: CHLORHEXIDINE 0.12% (ORAL KIT) 15 ML CUP MT SCH ×2 (13:19→20:00)
[2017-04-14] MEDS: SACUBITRIL/VALSARTAN 24 MG-26 MG TAB PEG SCH ×2 (13:20→22:33)
[2017-04-14] MEDS: SENNOSIDES SYRUP 8.8 MG/5 ML CUP G-TUBE SCH ×2 (13:20→22:31)
[2017-04-14] MEDS: SODIUM CHLORIDE 0.9% FLUSH 10 ML FLUSH IV FLUSH SCH ×2 (13:20→21:00)
[2017-04-14] MEDS: FERROUS SULFATE 300 MG /5ML UDC PEG SCH ×2 (13:21→22:31)
[2017-04-14] MEDS: POTASSIUM CHLORIDE 20 MEQ PWD PACKET PEG SCH (13:21)
[2017-04-14] MEDS: FOLIC ACID 1 MG TAB PEG SCH (13:21)
[2017-04-14] MEDS: FUROSEMIDE 20 MG/2 ML VIAL IV PUSH SCH (13:21)
[2017-04-14] MEDS: FAMOTIDINE 20 MG TAB PEG SCH ×2 (13:22→22:33)
[2017-04-14] MEDS: ASCORBIC ACID 500 MG TAB PEG SCH ×2 (13:22→22:33)
[2017-04-14] MEDS: levETIRAcetam 500 MG/5 ML UDC PEG SCH ×2 (13:22→22:33)
[2017-04-14] MEDS: BROMOCRIPTINE MESYLATE 2.5 MG TAB PEG SCH ×2 (13:22→22:33)
[2017-04-14] MEDS: carBAMazepine SUSP 200 MG/10 ML UDC PEG SCH ×2 (13:22→22:33)
[2017-04-14] MEDS: POVIDONE IODINE 10% OINT 30 GM TUBE TOPICAL SCH (13:23)
[2017-04-14] MEDS: SODIUM HYPOCHLORITE 0.25% 500 ML BTL TOPICAL SCH (13:23)
[2017-04-14] MEDS: COLLAGENASE OINT 30 GM TUBE TOPICAL SCH (13:24)
[2017-04-14] MEDS ORDERED: ENOXAPARIN SODIUM 40 MG/0.4 ML SYRINGE SQ ONE (15:45)
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
[2017-04-14] MEDS ORDERED: WARFARIN SOD 2.5 MG TAB PEG ONE (16:00)
[2017-04-14] MEDS: WARFARIN SOD 7.5 MG TAB PEG SCH (16:00)
--- NOTE | 2017-04-14 16:54 | HHI.PR ---
Subjective Remarks 66 YOWF with Rf, s/p trach H/O CVA,Arango Arango disease On trach collar Mod amount of trach secretions. Objective Vital Signs Vital Signs Date Time Temp Pulse Resp B/P (MAP) Pulse Ox O2 Delivery O2 Flow Rate FiO2 04/14/17 15:25 99 T-piece 6.00 28 04/14/17 12:00 99.5 92 26 101/58 (72) 100 04/14/17 08:05 100 T-piece 28 04/14/17 08:05 100 T-piece 28 04/14/17 08:00 98.6 81 26 113/66 (82) 100 04/14/17 04:00 98.4 90 20 100/57 (71) 100 04/14/17 00:00 98.5 92 18 101/57 (72) 98 04/13/17 20:00 98.5 100 20 130/85 (100) 98 04/13/17 20:00 100 Trach Collar 7.00 28 T-Piece Humidified I/O 04/13/17 04/13/17 04/13/17 04/14/17 04/14/17 04/14/17 07:00 15:00 23:00 07:00 15:00 23:00 Intake Total 0 ml 0 ml Output Total 1300 ml 600 ml Balance -1300 ml -600 ml Intake Oral 0 ml 0 ml Output Urine Total 1300 ml 600 ml # Bowel Movements 0 1 Result Diagram: 04/12/17 0845 04/12/17 0845 Objective Remarks GENERAL: MBMN WF, on Trach collar SKIN: Warm and dry. HEAD: Normocephalic. EYES: No scleral icterus. No injection or drainage. NECK: Supple, trachea midline. No JVD or lymphadenopathy. has trach CARDIOVASCULAR: Regular rate and rhythm without murmurs, gallops, or rubs. RESPIRATORY: Breath sounds equal bilaterally. No accessory muscle use. GASTROINTESTINAL: Abdomen soft, non-tender, nondistended. has PEG MUSCULOSKELETAL: No cyanosis, or edema. BACK: Nontender without obvious deformity. No CVA tenderness. A/P Assessment and Plan RF, S/P Trach CVA Arango arango disease CAD COPD SZ disorder PLAN: Aerosol nebs Cont trach collar supplement 02, keep sat >90%. TF Cont [email or web address] Suction prn Vernon Marx MD Apr 14, 2017 16:54
[2017-04-15] VITALS (9 sets, daily range): BP systolic 98–126; BP diastolic 51–65; PULSE 80–98; RESP 16–20; TEMP 97.7–98.9; O2SAT 97–100
[2017-04-15] MEDS: CHLORHEXIDINE GLUCONATE 2 % 1 PACK (2 CLOTHS) TOP SCH (03:36)
[2017-04-15] MEDS: FREE WATER G-TUBE SCH ×3 (05:38→21:17)
[2017-04-15] MEDS: METOPROLOL TARTRATE 25 MG TAB G-TUBE SCH ×2 (05:39→13:22)
[2017-04-15] MEDS: HYOSCYAMINE SOLN 0.125 MG/ML 15 ML BTL G-TUBE SCH ×2 (05:39→13:22)
[2017-04-15 07:48] LABS: INTERNATIONAL NORMALIZED RATIO 1.6 RATIO; PROTHROMBIN TIME - PATIENT 18.2 SEC (9.8-11.6)
[2017-04-15] MEDS ORDERED: ENOXAPARIN SODIUM 40 MG/0.4 ML SYRINGE SQ ONE (08:30)
[2017-04-15] MEDS: INSULIN ASPART SUPPLEMENTAL SCALE SQ SCH ×2 (09:00→21:00)
[2017-04-15] MEDS: RESP: IPRATROPIUM 0.5 MG/2.5 ML NEB NEB SCH ×4 (10:28→19:53)
--- NOTE | 2017-04-15 10:45 | HHI.PR ---
Subjective Remarks 66 YOWF with Rf, s/p trach H/O CVA,Arango Arango disease On trach collar Mod amount of trach secretions. no fever Objective Vital Signs Vital Signs Date Time Temp Pulse Resp B/P (MAP) Pulse Ox O2 Delivery O2 Flow Rate FiO2 04/15/17 10:29 100 T-piece 5.00 28 04/15/17 08:00 98.9 90 20 107/56 (73) 100 04/15/17 04:00 98.9 98 20 98/51 (67) 97 04/15/17 00:00 98.5 95 20 106/52 (70) 98 04/14/17 22:35 95 Trach Collar 7.00 28 T-Piece Humidified 04/14/17 20:15 88 04/14/17 20:00 98.0 98 20 121/57 (78) 100 04/14/17 16:00 98.7 89 26 97/53 (68) 100 04/14/17 15:25 99 T-piece 6.00 28 04/14/17 12:00 99.5 92 26 101/58 (72) 100 I/O 04/14/17 04/14/17 04/14/17 04/15/17 04/15/17 04/15/17 06:59 14:59 22:59 06:59 14:59 22:59 Intake Total 0 ml 723 ml Output Total 600 ml 450 ml 350 ml Balance -600 ml -450 ml 373 ml Intake Oral 0 ml 0 ml Tube Feeding 723 ml Output Urine Total 600 ml 450 ml 350 ml # Bowel Movements 1 1 2 Result Diagram: 04/12/17 0845 04/12/17 0845 Objective Remarks GENERAL: MBMN WF, on Trach collar SKIN: Warm and dry. HEAD: Normocephalic. EYES: No scleral icterus. No injection or drainage. NECK: Supple, trachea midline. No JVD or lymphadenopathy. has trach CARDIOVASCULAR: Regular rate and rhythm without murmurs, gallops, or rubs. RESPIRATORY: Breath sounds equal bilaterally. No accessory muscle use. GASTROINTESTINAL: Abdomen soft, non-tender, nondistended. has PEG MUSCULOSKELETAL: No cyanosis, or edema. BACK: Nontender without obvious deformity. No CVA tenderness. A/P Assessment and Plan RF, S/P Trach CVA Arango arango disease CAD COPD SZ disorder PLAN: Aerosol nebs Cont trach collar supplement 02, keep sat >90%. TF Cont Levsin.prn Suction prn Pulm coverage available prn until Tuesday Vernon Marx MD Apr 15, 2017 10:45
[2017-04-15] MEDS: CHLORHEXIDINE 0.12% (ORAL KIT) 15 ML CUP MT SCH ×2 (11:02→21:16)
[2017-04-15] MEDS: LACTULOSE SYRUP 20 GM/30 ML CUP G-TUBE SCH ×2 (11:03→21:15)
[2017-04-15] MEDS: JUVEN POWDER 1 PACK G-TUBE SCH ×2 (11:03→21:16)
[2017-04-15] MEDS: ATORVASTATIN 40 MG TAB G-TUBE SCH (11:04)
[2017-04-15] MEDS: SODIUM CHLORIDE 0.9% FLUSH 10 ML FLUSH IV FLUSH SCH ×2 (11:04→21:00)
[2017-04-15] MEDS: SENNOSIDES SYRUP 8.8 MG/5 ML CUP G-TUBE SCH ×2 (11:04→21:15)
[2017-04-15] MEDS: FUROSEMIDE 20 MG/2 ML VIAL IV PUSH SCH (11:04)
[2017-04-15] MEDS: SACUBITRIL/VALSARTAN 24 MG-26 MG TAB PEG SCH ×2 (11:05→21:16)
[2017-04-15] MEDS: FERROUS SULFATE 300 MG /5ML UDC PEG SCH ×2 (11:05→21:15)
[2017-04-15] MEDS: FOLIC ACID 1 MG TAB PEG SCH (11:05)
[2017-04-15] MEDS: POTASSIUM CHLORIDE 20 MEQ PWD PACKET PEG SCH (11:06)
[2017-04-15] MEDS: levETIRAcetam 500 MG/5 ML UDC PEG SCH ×2 (11:06→21:15)
[2017-04-15] MEDS: BROMOCRIPTINE MESYLATE 2.5 MG TAB PEG SCH ×2 (11:08→21:16)
[2017-04-15] MEDS: FAMOTIDINE 20 MG TAB PEG SCH ×2 (11:08→21:16)
[2017-04-15] MEDS: carBAMazepine SUSP 200 MG/10 ML UDC PEG SCH ×2 (11:09→21:16)
[2017-04-15] MEDS: POVIDONE IODINE 10% OINT 30 GM TUBE TOPICAL SCH (11:09)
[2017-04-15] MEDS: ASCORBIC ACID 500 MG TAB PEG SCH ×2 (11:09→21:16)
[2017-04-15] MEDS: SODIUM HYPOCHLORITE 0.25% 500 ML BTL TOPICAL SCH (11:10)
[2017-04-15] MEDS: COLLAGENASE OINT 30 GM TUBE TOPICAL SCH (11:10)
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
[2017-04-15] MEDS ORDERED: WARFARIN SOD 5 MG TAB PO ONE (16:00)
[2017-04-16] VITALS (10 sets, daily range): BP systolic 110–128; BP diastolic 56–62; PULSE 88–110; RESP 16–22; TEMP 97.7–98.4; O2SAT 98–100
[2017-04-16] MEDS: METOPROLOL TARTRATE 25 MG TAB G-TUBE SCH ×6 (00:09→23:16)
[2017-04-16] MEDS: HYOSCYAMINE SOLN 0.125 MG/ML 15 ML BTL G-TUBE SCH ×5 (00:09→23:16)
[2017-04-16] MEDS: CHLORHEXIDINE GLUCONATE 2 % 1 PACK (2 CLOTHS) TOP SCH (03:06)
[2017-04-16] MEDS: FREE WATER G-TUBE SCH ×3 (05:14→21:20)
[2017-04-16 07:10] LABS: INTERNATIONAL NORMALIZED RATIO 1.3 RATIO
[2017-04-16] MEDS ORDERED: ENOXAPARIN SODIUM 40 MG/0.4 ML SYRINGE SQ ONE (08:00)
[2017-04-16] MEDS: RESP: IPRATROPIUM 0.5 MG/2.5 ML NEB NEB SCH ×4 (08:25→20:36)
[2017-04-16] MEDS: carBAMazepine SUSP 200 MG/10 ML UDC PEG SCH ×2 (10:27→21:20)
[2017-04-16] MEDS: ATORVASTATIN 40 MG TAB G-TUBE SCH (10:27)
[2017-04-16] MEDS: FOLIC ACID 1 MG TAB PEG SCH (10:27)
[2017-04-16] MEDS: BROMOCRIPTINE MESYLATE 2.5 MG TAB PEG SCH ×2 (10:27→21:19)
[2017-04-16] MEDS: SACUBITRIL/VALSARTAN 24 MG-26 MG TAB PEG SCH ×2 (10:27→21:20)
[2017-04-16] MEDS: ASCORBIC ACID 500 MG TAB PEG SCH ×2 (10:28→21:19)
[2017-04-16] MEDS: levETIRAcetam 500 MG/5 ML UDC PEG SCH ×2 (10:28→21:20)
[2017-04-16] MEDS: FUROSEMIDE 20 MG/2 ML VIAL IV PUSH SCH (10:28)
[2017-04-16] MEDS: FAMOTIDINE 20 MG TAB PEG SCH ×2 (10:28→21:19)
[2017-04-16] MEDS: SODIUM CHLORIDE 0.9% FLUSH 10 ML FLUSH IV FLUSH SCH ×2 (10:28→21:00)
[2017-04-16] MEDS: POTASSIUM CHLORIDE 20 MEQ PWD PACKET PEG SCH (10:28)
[2017-04-16] MEDS: FERROUS SULFATE 300 MG /5ML UDC PEG SCH ×2 (10:28→21:19)
[2017-04-16] MEDS: POVIDONE IODINE 10% OINT 30 GM TUBE TOPICAL SCH (10:29)
[2017-04-16] MEDS: SODIUM HYPOCHLORITE 0.25% 500 ML BTL TOPICAL SCH (10:29)
[2017-04-16] MEDS: CHLORHEXIDINE 0.12% (ORAL KIT) 15 ML CUP MT SCH ×2 (10:29→20:00)
[2017-04-16] MEDS: SENNOSIDES SYRUP 8.8 MG/5 ML CUP G-TUBE SCH ×2 (10:29→21:00)
[2017-04-16] MEDS: COLLAGENASE OINT 30 GM TUBE TOPICAL SCH (10:29)
[2017-04-16] MEDS: LACTULOSE SYRUP 20 GM/30 ML CUP G-TUBE SCH ×2 (10:29→21:00)
[2017-04-16] MEDS: JUVEN POWDER 1 PACK G-TUBE SCH ×2 (10:29→21:00)
[2017-04-16] MEDS ORDERED: ENOXAPARIN SODIUM 60 MG/0.6 ML SYRINGE SQ ONE (10:30)
[2017-04-16] MEDS: INSULIN ASPART SUPPLEMENTAL SCALE SQ SCH ×2 (10:42→21:00)
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
[2017-04-16] MEDS ORDERED: WARFARIN SOD 5 MG TAB PO ONE (16:00)
[2017-04-16] MEDS: WARFARIN SOD 7.5 MG TAB PEG SCH (16:40)
[2017-04-16] MEDS ORDERED: ENOXAPARIN SODIUM 100 MG/ML SYRINGE SQ ONE (20:00)
[2017-04-17] VITALS (9 sets, daily range): BP systolic 105–121; BP diastolic 60–70; PULSE 86–95; RESP 18–22; TEMP 97.1–99.1; O2SAT 96–100
[2017-04-17] MEDS: CHLORHEXIDINE GLUCONATE 2 % 1 PACK (2 CLOTHS) TOP SCH (04:00)
[2017-04-17] MEDS: FREE WATER G-TUBE SCH ×3 (05:01→21:38)
[2017-04-17] MEDS: METOPROLOL TARTRATE 25 MG TAB G-TUBE SCH ×4 (05:02→23:15)
[2017-04-17] MEDS: HYOSCYAMINE SOLN 0.125 MG/ML 15 ML BTL G-TUBE SCH ×4 (05:02→23:15)
[2017-04-17] MEDS: CHLORHEXIDINE 0.12% (ORAL KIT) 15 ML CUP MT SCH ×2 (08:00→21:38)
[2017-04-17] MEDS: RESP: IPRATROPIUM 0.5 MG/2.5 ML NEB NEB SCH ×4 (08:48→20:46)
[2017-04-17] MEDS: POVIDONE IODINE 10% OINT 30 GM TUBE TOPICAL SCH (09:00)
[2017-04-17] MEDS: COLLAGENASE OINT 30 GM TUBE TOPICAL SCH (09:00)
[2017-04-17] MEDS: JUVEN POWDER 1 PACK G-TUBE SCH ×2 (09:00→21:00)
[2017-04-17] MEDS: SODIUM CHLORIDE 0.9% FLUSH 10 ML FLUSH IV FLUSH SCH ×2 (09:00→21:00)
[2017-04-17] MEDS: SODIUM HYPOCHLORITE 0.25% 500 ML BTL TOPICAL SCH (09:00)
[2017-04-17] MEDS: INSULIN ASPART SUPPLEMENTAL SCALE SQ SCH ×2 (09:00→21:00)
[2017-04-17] MEDS: FERROUS SULFATE 300 MG /5ML UDC PEG SCH ×2 (09:44→21:37)
[2017-04-17] MEDS: LACTULOSE SYRUP 20 GM/30 ML CUP G-TUBE SCH ×2 (09:44→21:00)
[2017-04-17] MEDS: ASCORBIC ACID 500 MG TAB PEG SCH ×2 (09:45→21:37)
[2017-04-17] MEDS: BROMOCRIPTINE MESYLATE 2.5 MG TAB PEG SCH ×2 (09:45→21:37)
[2017-04-17] MEDS: SACUBITRIL/VALSARTAN 24 MG-26 MG TAB PEG SCH ×2 (09:45→21:37)
[2017-04-17] MEDS: carBAMazepine SUSP 200 MG/10 ML UDC PEG SCH ×2 (09:45→21:37)
[2017-04-17] MEDS: FAMOTIDINE 20 MG TAB PEG SCH ×2 (09:45→21:37)
[2017-04-17] MEDS: ATORVASTATIN 40 MG TAB G-TUBE SCH (09:45)
[2017-04-17] MEDS: FUROSEMIDE 20 MG/2 ML VIAL IV PUSH SCH (09:46)
[2017-04-17] MEDS: FOLIC ACID 1 MG TAB PEG SCH (09:47)
[2017-04-17] MEDS: POTASSIUM CHLORIDE 20 MEQ PWD PACKET PEG SCH (09:48)
[2017-04-17] MEDS: levETIRAcetam 500 MG/5 ML UDC PEG SCH ×2 (09:48→21:37)
[2017-04-17] MEDS: SENNOSIDES SYRUP 8.8 MG/5 ML CUP G-TUBE SCH ×2 (09:50→21:00)
[2017-04-17 10:46] LABS: INTERNATIONAL NORMALIZED RATIO 1.3 RATIO; PROTHROMBIN TIME - PATIENT 14.8 SEC (9.8-11.6)
[2017-04-17] MEDS ORDERED: WARFARIN SOD 5 MG TAB PO ONE (11:15)
--- NOTE | 2017-04-17 13:54 | HHI.PR ---
Subjective Remarks Follow-up for severe stroke Patient seems to be tracking at times. When I asked to squeeze my hand she does squeeze my hand but doesn't let go when I asked to so unsure if she's following commands. Otherwise no acute events. Dealt with patient's nurse she had no complaints but asked if patient continues to need Accu-Cheks and she has not been requiring any supplemental insulin. Objective Vitals Vital Signs Date Time Temp Pulse Resp B/P (MAP) Pulse Ox O2 Delivery O2 Flow Rate FiO2 04/17/17 12:07 98.3 88 22 106/63 (77) 100 04/17/17 08:43 100 T-piece 28 04/17/17 08:07 98.2 86 22 119/70 (86) 96 04/17/17 04:00 97.6 88 18 105/61 (76) 99 04/17/17 04:00 100 T-Piece 6.00 28 04/17/17 00:00 99 T-Piece 6.00 28 04/17/17 00:00 97.2 87 18 118/66 (83) 100 04/16/17 20:36 100 T-piece 6.00 28 04/16/17 20:36 100 T-piece 6.00 28 04/16/17 20:00 98.4 88 18 128/58 (81) 100 04/16/17 20:00 T-Piece 6.00 28 04/16/17 20:00 110 04/16/17 16:00 97.7 90 20 110/61 (77) 100 I/O 04/16/17 04/16/17 04/16/17 04/17/17 04/17/17 04/17/17 06:59 14:59 22:59 06:59 14:59 22:59 Intake Total 726 ml Output Total 850 ml 700 ml Balance -850 ml 26 ml Intake Oral 0 ml Tube Feeding 726 ml Output Urine Total 850 ml 700 ml # Bowel Movements 1 1 Objective Remarks GENERAL: Pt encountered laying a bed, T-piece in place. SKIN: Warm and dry. No pitting edema noted along forearms and feet this afternoon. HEAD: Normocephalic. EYES: No scleral icterus. No injection or drainage. NECK: Supple, t-piece in place. CARDIOVASCULAR: Regular rate and rhythm without murmurs, gallops, or rubs. Per bedside monitor, heart rate was in the 100. RESPIRATORY: Breath sounds equal bilaterally, without rhonchi or wheezes. 100% oxygenation per bedside monitor. Pt noted to have a episode of coughing during visit. GASTROINTESTINAL: Abdomen soft, non-tender non-distended. G-tube in place MUSCULOSKELETAL: No cyanosis. Bilateral SCD's in place as were bilateral off loading boots. Neurological: When I came into the room and introduced myself she did not open her eyes. But when I try to open her eyes myself she open her eyes. At time she seems to be tracking but this is not consistent so unsure if she is really tracking. She is able to squeeze my hand but when I asked her to let go she cannot let go. Otherwise she does not follow any commands. Procedures PEG 11/24/2016 Percutaneous tracheostomy. 11/18/2016 Moderate encephalopathy with suggestion of left temporal region cortical irritability. No active seizures. Clinical correlation. Echocardiogram Severe dilated left ventricle. Wall thickness is normal. The left ventricular systolic function is moderately reduced with an estimated ejection fraction in the range of 35-40%. Doppler parameters are consistent with a restrictive left ventricular filling pattern indicative of decreased left ventricular diastolic compliance and increase left atrial pressure (grade 3 diastolic dysfunction). There is severe tricuspid regurgitation. There is severe pulmonary hypertension present ( > 70 mmHg). Severe mitral valve regurgitation. 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 Status: Acute (2) Seizure ICD Code: R56.9 - Unspecified convulsions Status: Acute (3) CVA (cerebral vascular accident) ICD Code: I63.9 - Cerebral infarction, unspecified Status: Acute (4) Respiratory failure, acute ICD Code: J96.00 - Acute respiratory failure, unspecified whether with hypoxia or hypercapnia Status: Acute (5) COPD (chronic obstructive pulmonary disease) ICD Code: J44.9 - Chronic obstructive pulmonary disease, unspecified Status: Chronic (6) Acute hypernatremia ICD Code: E87.0 - Hyperosmolality and hypernatremia Status: Resolved (7) Microcytic anemia ICD Code: D50.9 - Iron deficiency anemia, unspecified Assessment and Plan Ms. Rivas is a 66-year-old female with a history of stroke who was admitted to the [facility] on 11/04/2016 due to difficulty getting her thoughts together. She was found to have multifocal nonhemorrhagic infarctions in the frontal and parietal regions. She was initially awake and following commands with weakness of RLE and some aphasia. She was transferred to [facility] where he had an cerebral angiogram consistent with moyamoya. There were plans to perform extracranial/intracranial bypass. However, she had a seizure and ended up being intubated for status epilepticus 11/09 or 11/10. She was found to have a new right frontal infarct area and she was started on Dilantin and Keppra and it was felt that she would not be a candidate for intervention. She has since undergone PEG placement. Apparently family requested transfer back to [place] because they live locally and wanted her closer to home. Patient remained under critical care medicine until 12/24/2016. INR remains subtherapeutic (1.3). [id number] score 7. Bridging dose of 90 mg BID ordered. Pharmacy continues to adjust Warfarin. . Viridans strep bacteremia - resolved - ID following. Per ID, sputum cx with GNR and staph aureus ? colonization. Urine with Kleb pneumo and E Coli ? colonization - Repeat blood cx 03/23 shows no growth in 5 days. 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 at [facility] October 2016 Seizure disorder - Continue Keppra 1000mg BID - Continue Tegretol 200mg q 12h - Follow for seizure activity - no recent seizure activity noted - Continue Bromocriptine - Keppra level 25.3 04/05 - Tegretol level 7.1 03/31 Hyperammonemia - trending down - continue Lactulose 30mg BID - continue to monitor ammonia level as indicated - repeat level ordered for 04/12, level was 17. Hyponatremia - improved Mixed systolic and diastolic heart failure, stable - echocardiogram 02/02/17 shows EF 35-40%, grade 3 diastolic dysfunction, severe tricuspid regurgitation, severe pulmonary HTN and severe mitral valve regurgitation. - continue Lasix 20mg daily - continue on Entresto - monitor electrolytes and renal function - monitor for s/sxs of fluid overload Chronic respiratory failure COPD Multilobar pneumonia, resolved - Pulmonary medicine following, appreciate assistance - Status post tracheostomy on 11/24/2016. Currently on T piece. Continue on Levsin prn for secretions. - completed antibiotic course with Tobramycin, course ended on 01/20/17. - Continue DuoNebs when necessary - supplement O2 to keep O2 sats > 90% Atrial fibrillation plus recent SVT - Cardiology signed off, stable - rate controlled - Continue Metoprolol 25mg q12hr and Coumadin - confirmed with Dr. lFores patient to continue Coumadin WITHOUT ASA. - INR subtherapeutic 1.3. Pharmacy to dose. Continue to monitor INR. Anasarca - Continue Lasix 20 mg IV daily Dysphagia Hypoalbuminemia - s/p PEG placement - continue Jevity 1.5 through PEG tube with Corby supplementation. - Continue TF continuous 60ml per hour New onset DM - HgbA1c 6.5 - Will DC Accu-Cheks since patient has not required any insulin. Dealt with patient's nurse. - BS controlled Sacral/Coccyx wound - Specialty bed ordered, continue - Wound care following - per theirs and plastics recs - Daily cleansing the wound with gauze and Dakin's solutions, then applying a nickel-thick portion of santyl to the entire wound bed, then packing with Dakin's soaked gauze. This should be covered with ABD and secured with tape. Anemia, microcytic, hypochromic - stable - iron studies-iron 33, TIBC 307, % sat 10.8, ferritin 346. Continue iron supplementation. - stool hemoccult negative - monitor intermittently GI Prophylaxis: Pepcid. DVT prophylaxis: SCDs. Coumadin. Full code. Lis Alan MD Apr 17, 2017 13:54
[2017-04-17] MEDS: WARFARIN SOD 7.5 MG TAB PEG SCH (17:07)
[2017-04-18] VITALS (9 sets, daily range): BP systolic 113–140; BP diastolic 51–82; PULSE 84–96; RESP 18–20; TEMP 96.5–98.8; O2SAT 97–100
[2017-04-18] MEDS: CHLORHEXIDINE GLUCONATE 2 % 1 PACK (2 CLOTHS) TOP SCH (04:00)
[2017-04-18] MEDS: METOPROLOL TARTRATE 25 MG TAB G-TUBE SCH ×3 (05:15→18:00)
[2017-04-18] MEDS: FREE WATER G-TUBE SCH ×3 (05:15→21:49)
[2017-04-18] MEDS: HYOSCYAMINE SOLN 0.125 MG/ML 15 ML BTL G-TUBE SCH ×3 (05:15→18:00)
[2017-04-18] MEDS: RESP: IPRATROPIUM 0.5 MG/2.5 ML NEB NEB SCH ×4 (07:46→19:56)
[2017-04-18] MEDS: INSULIN ASPART SUPPLEMENTAL SCALE SQ SCH ×2 (07:55→19:34)
[2017-04-18] MEDS: CHLORHEXIDINE 0.12% (ORAL KIT) 15 ML CUP MT SCH ×2 (08:00→20:00)
[2017-04-18] MEDS: FUROSEMIDE 20 MG/2 ML VIAL IV PUSH SCH (08:39)
[2017-04-18] MEDS: ASCORBIC ACID 500 MG TAB PEG SCH ×2 (08:39→21:49)
[2017-04-18] MEDS: FERROUS SULFATE 300 MG /5ML UDC PEG SCH ×2 (08:39→21:46)
[2017-04-18] MEDS: carBAMazepine SUSP 200 MG/10 ML UDC PEG SCH ×2 (08:39→21:49)
[2017-04-18] MEDS: BROMOCRIPTINE MESYLATE 2.5 MG TAB PEG SCH ×2 (08:39→21:00)
[2017-04-18] MEDS: LACTULOSE SYRUP 20 GM/30 ML CUP G-TUBE SCH ×2 (08:39→21:00)
[2017-04-18] MEDS: FOLIC ACID 1 MG TAB PEG SCH (08:39)
[2017-04-18] MEDS: SODIUM CHLORIDE 0.9% FLUSH 10 ML FLUSH IV FLUSH SCH ×2 (08:39→21:45)
[2017-04-18] MEDS: SACUBITRIL/VALSARTAN 24 MG-26 MG TAB PEG SCH ×2 (08:39→21:46)
[2017-04-18] MEDS: SENNOSIDES SYRUP 8.8 MG/5 ML CUP G-TUBE SCH ×2 (08:40→21:00)
[2017-04-18] MEDS: POTASSIUM CHLORIDE 20 MEQ PWD PACKET PEG SCH (08:40)
[2017-04-18] MEDS: ATORVASTATIN 40 MG TAB G-TUBE SCH (08:40)
[2017-04-18] MEDS: levETIRAcetam 500 MG/5 ML UDC PEG SCH ×2 (08:40→21:46)
[2017-04-18] MEDS: FAMOTIDINE 20 MG TAB PEG SCH ×2 (08:40→21:46)
[2017-04-18] MEDS: POVIDONE IODINE 10% OINT 30 GM TUBE TOPICAL SCH (08:41)
[2017-04-18] MEDS: COLLAGENASE OINT 30 GM TUBE TOPICAL SCH (08:41)
[2017-04-18] MEDS: SODIUM HYPOCHLORITE 0.25% 500 ML BTL TOPICAL SCH (08:41)
[2017-04-18] MEDS: JUVEN POWDER 1 PACK G-TUBE SCH ×2 (08:41→21:00)
[2017-04-18 12:37] LABS: INTERNATIONAL NORMALIZED RATIO 1.6 RATIO; PROTHROMBIN TIME - PATIENT 17.9 SEC (9.8-11.6)
--- NOTE | 2017-04-18 13:13 | HHI.PR ---
Subjective Remarks Follow-up for CVA Patient is nonverbal and does not follow any commands. No acute events overnight. Objective Vitals Vital Signs Date Time Temp Pulse Resp B/P (MAP) Pulse Ox O2 Delivery O2 Flow Rate FiO2 04/18/17 09:31 T-Piece 6.00 28 04/18/17 08:07 97.0 86 19 113/67 (82) 98 04/18/17 07:52 100 T-piece 5.00 28 04/18/17 07:52 100 T-piece 5.00 28 04/18/17 04:00 98.6 91 19 117/66 (83) 100 04/18/17 00:00 98.8 86 18 118/62 (80) 100 04/18/17 00:00 T-Piece 6.00 28 04/17/17 20:49 100 T-piece 28 04/17/17 20:49 100 T-piece 28 04/17/17 20:00 T-Piece 6.00 28 04/17/17 20:00 89 04/17/17 20:00 99.1 88 20 121/60 (80) 100 04/17/17 18:45 T-Piece 6.00 28 04/17/17 16:07 97.1 95 22 121/70 (87) 100 I/O 04/17/17 04/17/17 04/17/17 04/18/17 04/18/17 04/18/17 07:00 15:00 23:00 07:00 15:00 23:00 Intake Total 0 ml 0 ml Output Total 1600 ml 550 ml Balance -1600 ml -550 ml Intake Oral 0 ml 0 ml Output Urine Total 1600 ml 550 ml # Bowel Movements 1 2 Objective Remarks GENERAL: Pt encountered laying a bed, T-piece in place. SKIN: Warm and dry. No pitting edema noted along forearms and feet this afternoon. HEAD: Normocephalic. EYES: No scleral icterus. No injection or drainage. NECK: Supple, t-piece in place. CARDIOVASCULAR: Regular rate and rhythm without murmurs, gallops, or rubs. Per bedside monitor, heart rate was in the 100. RESPIRATORY: Bilateral transmitted upper respiratory sounds otherwise no wheezing or crackles. GASTROINTESTINAL: Abdomen soft, non-tender non-distended. G-tube in place MUSCULOSKELETAL: No cyanosis. Bilateral SCD's in place as were bilateral off loading boots. Neurological: eyes are open. When I asked her to squeeze my hand she did not. She did not track. Procedures PEG 11/24/2016 Percutaneous tracheostomy. 11/18/2016 Moderate encephalopathy with suggestion of left temporal region cortical irritability. No active seizures. Clinical correlation. Echocardiogram Severe dilated left ventricle. Wall thickness is normal. The left ventricular systolic function is moderately reduced with an estimated ejection fraction in the range of 35-40%. Doppler parameters are consistent with a restrictive left ventricular filling pattern indicative of decreased left ventricular diastolic compliance and increase left atrial pressure (grade 3 diastolic dysfunction). There is severe tricuspid regurgitation. There is severe pulmonary hypertension present ( > 70 mmHg). Severe mitral valve regurgitation. Medications and IVs Current Medications Chlorhexidine Gluconate (Peridex 0.12% Liq) 15 ml BID@08,20 MT Last administered on 04/18/17 08:00; Start 11/18/16 at 08:00 Sodium Chloride 1,000 ml @ 84 mls/hr [id number] IV Last administered on 15:29; Start 11/18/16 at 03:24; Stop 11/19/16 at 15:19; Status DC Sodium Chloride (NS Flush) 2 ml BID IV FLUSH Last administered on 04/18/17 08: 39; Start 11/18/16 at 09:00 Acetaminophen (Tylenol) 650 mg Q6H PRN PO FEVER >101F Last administered on 01/01 16:01; Start 11/18/16 at 03:30; Stop 02/01/17 at 08:46; Status DC Acetaminophen/ Hydrocodone Bitart ([place] 5-325 Mg) 1 tab Q4H PRN PO PAIN SCALE 1 - 5 Last administered on 01/17/17 09:16; Start 11/18/16 at 03:30; Stop 02/01/17 at 08:46; Status DC Morphine Sulfate (Morphine Inj) 2 mg Q2H PRN IV PAIN SCALE 6 TO 10 Last administered on 03/27/17 10:13; Start 11/18/16 at 03:30 Pantoprazole Sodium (Protonix Inj) 40 mg DAILY IV Last administered on 08:30; Start 11/18/16 at 09:00; Stop 12/21/16 at 11:34; Status DC Ondansetron HCl (Zofran Inj) 4 mg Q6H PRN IV NAUSEA OR VOMITING Last administered on 11/26/16 03:20; Start 11/18/16 at 03:30 Docusate Sodium (Colace) 100 mg BID OG-TUBE Last administered on 11/19/16 08: 23; Start 11/18/16 at 09:00; Stop 11/19/16 at 23:57; Status DC Albuterol/ Ipratropium (Duoneb Neb) 1 ampule Q6HR NEB INH Last administered on 11/22/16 03:35; Start 11/18/16 at 04:00; Stop 11/22/16 at 04:00; Status DC Albuterol Sulfate (Albuterol Neb) 2.5 mg Q2HR NEB PRN INH SOB/WHEEZING Last administered on 01/26/17 00:54; Start 11/18/16 at 03:30; Stop 03/21/17 at 08:08 ; Status DC Miscellaneous Information 1 [id number] Last administered on 11/18/16 03:30; Start 11/18/16 at 03:30 Chlorhexidine Gluconate (Chlorhexidine 2% Cloth) Taper DAILY@04 TOP Last administered on 04/06/17 04:33; Start 11/18/16 at 04:00; Stop 11/14/17 at 03:59 Chlorhexidine Gluconate (Chlorhexidine 2% Cloth) 3 pack UNSCH PRN TOP HYGIENIC CARE; Start 11/18/16 at 03:30 Heparin Sodium (Porcine) (Heparin Inj) 5,000 units Q8HR SQ Last administered on 11/19/16 14:20; Start 11/18/16 at 06:00; Stop 11/19/16 at 15:08; Status DC Aspirin (Aspirin Chew) 324 mg DAILY NG Last administered on 03/02/17 09:45; Start 11/18/16 at 09:00; Stop 03/02/17 at 15:58; Status DC Levetriacetam 100 ml @ 400 mls/hr Q12HR IV Last administered on 12/21/16 08: 30; Start 11/18/16 at 09:00; Stop 12/21/16 at 11:34; Status DC Levetriacetam 500 mg/Sodium Chloride 105 ml @ 420 mls/hr Q12HR IV Last administered on 12/21/16 08:30; Start 11/18/16 at 09:00; Stop 12/21/16 at 11:35 ; Status DC Atorvastatin Calcium (Lipitor) 40 mg DAILY PO Last administered on 01/31/17 08 :37; Start 11/18/16 at 09:00; Stop 02/01/17 at 08:46; Status DC Bromocriptine Mesylate (Parlodel) 2.5 mg Q12HR OG-TUBE Last administered on 21:47; Start 11/18/16 at 09:00; Stop 04/07/17 at 11:49; Status DC Folic Acid (Folate) 1 mg DAILY OG-TUBE Last administered on 04/06/17 11:31; Start 11/18/16 at 09:00; Stop 04/07/17 at 11:49; Status DC Potassium Chloride 100 ml @ 50 mls/hr Q2H PRN IV For Potassium 2.8 - 3.2 mEq/L ; Start 11/18/16 at 13:30; Stop 01/18/17 at 14:42; Status DC Potassium Chloride 100 ml @ 50 mls/hr Q2H PRN IV For Potassium 2.8 - 3.2 mEq/ L Last administered on 11/27/16 14:13; Start 11/18/16 at 13:30; Stop 01/18/17 at 14:42; Status DC Potassium Bicarb/ Potassium Chloride (K-Lyte Cl Eff) 50 meq UNSCH PRN PO For Potassium 3.3 - 3.5 mEq/L Last administered on 11/29/16 06:20; Start 11/18/16 at 13:30; Stop 01/18/17 at 14:42; Status DC Potassium Chloride 100 ml @ 25 mls/hr UNSCH PRN IV For Potassium 3.3 - 3.5 mEq /L; Start 11/18/16 at 13:30; Stop 01/18/17 at 14:42; Status DC Potassium Chloride 100 ml @ 50 mls/hr Q2H PRN IV For Potassium 3.3 - 3.5 mEq/ L Last administered on 11/24/16 06:27; Start 11/18/16 at 13:30; Stop 01/18/17 at 14:42; Status DC Magnesium Sulfate 4 gm/Sodium Chloride 100 ml @ 50 mls/hr UNSCH PRN IV For Magnesium 0.9 - 1.1 mg/dL; Start 11/18/16 at 13:30; Stop 01/18/17 at 14:42; Status DC Magnesium Oxide (Mag-Ox) 800 mg UNSCH PRN PO For Magnesium 1.2 - 1.6 mg/dL; Start 11/18/16 at 13:30; Stop 01/18/17 at 14:42; Status DC Magnesium Sulfate 2 gm/Sodium Chloride 100 ml @ 50 mls/hr UNSCH PRN IV For Magnesium 1.2 - 1.6 mg/dL; Start 11/18/16 at 13:30; Stop 01/18/17 at 14:42; Status DC Potassium Phosphate (K-Phos) 2,000 mg Q4H PRN PO For Phosphorus < 2.5 mg/dL; Start 11/18/16 at 13:30; Stop 01/18/17 at 14:42; Status DC Sodium Phosphate 30 mmol/Sodium Chloride 250 ml @ 42 mls/hr UNSCH PRN IV For Phosphorus < 2.5 mg/dL; Start 11/18/16 at 13:30; Stop 01/18/17 at 14:42; Status DC Potassium Phosphate (K-Phos) 2,000 mg UNSCH PRN PO/TUBE SEE LABEL COMMENTS; Start 11/18/16 at 13:30; Stop 01/18/17 at 14:42; Status DC Potassium Phosphate 30 mmol/ Sodium Chloride 260 ml @ 42 mls/hr UNSCH PRN IV SEE LABEL COMMENTS; Start 11/18/16 at 13:30; Stop 01/18/17 at 14:42; Status DC Bisacodyl (Dulcolax Supp) 10 mg DAILY PRN RECTAL CONSTIPATION; Start 11/19/16 at 12:45; Stop 11/19/16 at 15:15; Status DC Sennosides (Senna Liq) 8.8 mg BID PO Last administered on 01/18/17 08:54; Start 11/19/16 at 21:00; Stop 02/01/17 at 08:46; Status DC Docusate Sodium (Colace Liq) 100 mg Q12HR PO Last administered on 01/18/17 08: 52; Start 11/19/16 at 21:00; Stop 01/19/17 at 10:44; Status DC Polyethylene Glycol (Miralax) 17 gm DAILY PO Last administered on 01/18/17 08: 54; Start 11/21/16 at 18:00; Stop 01/20/17 at 13:15; Status DC Bisacodyl (Dulcolax Supp) 10 mg ONCE ONCE RECTAL Last administered on 08:12; Start 11/21/16 at 08:00; Stop 11/21/16 at 08:01; Status DC Cefazolin Sodium/ Dextrose 50 ml @ 100 mls/hr ONCE ONCE IV Last administered on 11/22/16 13:23; Start 11/22/16 at 05:00; Stop 11/22/16 at 05:29; Status DC Dextrose (D50w (Vial) Inj) 25 ml UNSCH PRN IV PUSH HYPOGLYCEMIA-SEE COMMENTS; Start 11/22/16 at 08:00; Stop 02/01/17 at 09:08; Status DC Glucagon (Glucagon Inj) 1 mg UNSCH PRN OTHER HYPOGLYCEMIA-SEE COMMENTS; Start 11/22/16 at 08:00; Stop 02/01/17 at 09:08; Status DC Insulin Human Regular (NovoLIN R SUPPLEMENTAL SCALE) 1 Q6H SQ Last administered on 01/31/17 08:00; Start 11/22/16 at 08:00; Stop 02/01/17 at 08:46 ; Status DC Albuterol/ Ipratropium (Duoneb Neb) 1 ampule Q6HR NEB NEB Last administered on 11/26/16 07:49; Start 11/22/16 at 10:00; Stop 11/26/16 at 10:00; Status DC Bumetanide (Bumex Inj) 1 mg DAILY IV PUSH Last administered on 12/16/16 08:59 ; Start 11/22/16 at 12:15; Stop 12/17/16 at 08:01; Status DC Propofol (Diprivan 200 Mg/20 ml Inj) 50 mg STK-MED ONCE IV ; Start 11/22/16 at 14:32; Stop 11/22/16 at 15:24; Status DC Miscellaneous Information Hold Anticoagulation after midni... ONCE ONCE OTHER ; Start 11/22/16 at 15:45; Stop 11/22/16 at 15:47; Status DC Midazolam HCl (Versed Inj) 4 mg ONCE ONCE IV PUSH ; Start 11/23/16 at 09:15; Stop 11/23/16 at 10:16; Status DC Vecuronium [place] (Norcuron 10 Mg Inj) 10 mg ONCE ONCE IV PUSH ; Start at 09:15; Stop 11/23/16 at 10:17; Status DC Fentanyl Citrate (fentaNYL INJ) 200 mcg ONCE ONCE IV PUSH ; Start 11/23/16 at 09:15; Stop 11/23/16 at 10:16; Status DC Metoprolol Tartrate (Lopressor Inj) 5 mg Q6H PRN IV PUSH SBP > 170 Last administered on 01/12/17 03:20; Start 11/23/16 at 22:45; Stop 03/20/17 at 07:36 ; Status DC Fentanyl Citrate (fentaNYL INJ) 200 mcg ONCE ONCE IV PUSH Last administered on 11/24/16 14:00; Start 11/24/16 at 12:30; Stop 11/24/16 at 12:31; Status DC Midazolam HCl (Versed Inj) 4 mg ONCE ONCE IV PUSH ; Start 11/24/16 at 12:30; Stop 11/24/16 at 12:31; Status DC Vecuronium [place] (Norcuron 10 Mg Inj) 10 mg ONCE ONCE IV PUSH ; Start at 12:30; Stop 11/24/16 at 12:31; Status DC Lactulose (Lactulose Liq) 15 ml BID PO Last administered on 01/21/17 21:21; Start 11/26/16 at 09:00; Stop 01/22/17 at 07:29; Status DC Ceftriaxone Sodium 1000 mg/ Sodium Chloride 100 ml @ 200 mls/hr Q24H IV Last administered on 11/26/16 10:30; Start 11/26/16 at 10:00; Stop 11/27/16 at 03:34 ; Status DC Piperacillin Sod/ Tazobactam Sod 100 ml @ 200 mls/hr Q6H IV Last administered on 11/29/16 04:00; Start 11/27/16 at 04:00; Stop 11/29/16 at 09:46; Status DC Pharmacy Profile Note 0 ml @ 0 mls/hr UNSCH OTHER ; Start 11/27/16 at 03:45; Stop 11/29/16 at 09:46; Status DC Vancomycin HCl 1000 mg/Sodium Chloride 250 ml @ 250 mls/hr ONCE ONCE IV ; Start 11/27/16 at 03:45; Stop 11/27/16 at 04:44; Status Cancel Vancomycin HCl 1500 mg/Sodium Chloride 515 ml @ 257.5 mls/ hr ONCE ONCE IV Last administered on 11/27/16 04:18; Start 11/27/16 at 05:00; Stop 11/27/16 at 06:59; Status DC Gelatin (Gelfoam 12 Mm/7 Mm Top) 1 foam STK-MED ONCE .ROUTE Last administered on 11/27/16 04:08; Start 11/27/16 at 04:08; Stop 11/27/16 at 04:09; Status DC Gelatin (Gelfoam 12 Mm/7 Mm Top) 3 foam STK-MED ONCE .ROUTE Last administered on 11/27/16 05:38; Start 11/27/16 at 05:38; Stop 11/27/16 at 05:39; Status DC Vancomycin HCl 1000 mg/Sodium Chloride 250 ml @ 250 mls/hr Q12H IV Last administered on 11/28/16 16:12; Start 11/27/16 at 16:00; Stop 11/28/16 at 18:29 ; Status DC Miscellaneous Information SPECIFIC LAB TO BE MERLY... ONCE ONCE .XX ; Start 11/28 at 15:45; Stop 11/28/16 at 15:51; Status DC Vancomycin HCl 1250 mg/Sodium Chloride 250 ml @ 250 mls/hr Q24H IV ; Start at 16:00; Stop 11/29/16 at 16:00; Status DC Miscellaneous Information SPECIFIC LAB TO BE MERLY... ONCE ONCE .XX ; Start 12/01 at 15:45; Stop 12/01/16 at 15:45; Status DC Ceftriaxone Sodium 1000 mg/ Sodium Chloride 100 ml @ 200 mls/hr Q24H IV Last administered on 12/10/16 09:56; Start 11/29/16 at 11:00; Stop 12/10/16 at 17:17; Status DC Magnesium Sulfate 2 gm/Sodium Chloride 104 ml @ 52 mls/hr ONCE ONCE IV Last administered on 12/06/16 15:43; Start 12/06/16 at 15:30; Stop 12/06/16 at 17:29; Status DC Bisacodyl (Dulcolax Supp) 10 mg DAILY PRN RECTAL CONSTIPATION; Start 12/14/16 at 15:45 Piperacillin Sod/ Tazobactam Sod 50 ml @ 100 mls/hr Q6H IV Last administered on 01/09/17 09:04; Start 12/19/16 at 10:00; Stop 01/09/17 at 11:54; Status DC Pharmacy Profile Note 0 ml @ 0 mls/hr UNSCH OTHER ; Start 12/19/16 at 10:00; Stop 12/21/16 at 11:35; Status DC Vancomycin HCl 1000 mg/Sodium Chloride 250 ml @ 250 mls/hr Q12H IV Last administered on 12/20/16 22:58; Start 12/19/16 at 11:00; Stop 12/21/16 at 08:33 ; Status DC Miscellaneous Information SPECIFIC LAB TO BE DRAWN:VANCOMYCIN TROUGH DATE TO... ONCE ONCE .XX Last administered on 12/20/16 22:45; Start 12/20/16 at 22:45; Stop 12/20/16 at 22:46; Status DC Vancomycin HCl 1250 mg/Sodium Chloride 262.5 ml @ 250 mls/hr Q12H IV Last administered on 12/21/16 10:39; Start 12/21/16 at 11:00; Stop 12/21/16 at 11:35 ; Status DC Miscellaneous Information SPECIFIC LAB TO BE DRAWN:VANCOMYCIN TROUGH DATE TO... ONCE ONCE .XX ; Start 12/23/16 at 10:45; Stop 12/23/16 at 10:46; Status Cancel Famotidine (Pepcid) 20 mg BID NG Last administered on 04/06/17 21:47; Start at 21:00; Stop 04/07/17 at 11:50; Status DC Levetriacetam (Keppra Liq) 1,500 mg Q12HR NG Last administered on 03/12/17 21: 58; Start 12/21/16 at 21:00; Stop 03/21/17 at 13:07; Status DC Albuterol/ Ipratropium (Duoneb Neb) 1 ampule QID NEB NEB Last administered on 12/28/16 12:04; Start 12/21/16 at 12:00; Stop 12/28/16 at 12:56; Status DC Hyoscyamine Sulfate (Levsin Liq) 0.125 mg Q4H PRN PO secretions Last administered on 01/24/17 01:45; Start 12/28/16 at 07:15; Stop 02/01/17 at 08:46 ; Status DC Iron Sucrose 100 mg/Sodium Chloride 105 ml @ 105 mls/hr Q24H IV Last administered on 01/04/17 13:33; Start 01/02/17 at 15:00; Stop 01/04/17 at 15:59 ; Status DC Collagenase (Santyl Oint) 1 applic DAILY TOPICAL Last administered on 09:00; Start 01/04/17 at 11:30; Stop 01/27/17 at 16:16; Status DC Carbamazepine (TEGretol LIQ) 200 mg Q12HR PEG Last administered on 04/18/17 08 :39; Start 01/06/17 at 09:00 Water (Free Water) 200 ml Q8HR G-TUBE Last administered on 01/14/17 13:53; Start 01/09/17 at 14:00; Stop 01/14/17 at 15:15; Status DC Tobramycin Sulfate (Tobramycin Neb) 80 mg Q12HR NEB NEB Last administered on 19:01; Start 01/09/17 at 20:00; Stop 01/20/17 at 19:59; Status DC Arginine HCl ([place] Powder) 1 pack BID G-TUBE Last administered on 04/18/17 08 :41; Start 01/13/17 at 09:00 Water (Free Water) 200 ml Q6HR G-TUBE Last administered on 01/29/17 05:05; Start 01/14/17 at 18:00; Stop 01/29/17 at 08:00; Status DC Hyoscyamine Sulfate (Levsin) 0.125 mg Q8HR PO Last administered on 02/01/17 05 :26; Start 01/19/17 at 22:00; Stop 02/01/17 at 08:46; Status DC Polyethylene Glycol (Miralax) 17 gm DAILY@18 PO Last administered on 01/21/17 17:28; Start 01/20/17 at 18:00; Stop 01/22/17 at 07:29; Status DC Lactulose (Lactulose Liq) 15 ml BID PO Last administered on 01/28/17 22:21; Start 01/23/17 at 11:00; Stop 01/29/17 at 07:59; Status DC Ceftriaxone Sodium 1000 mg/ Sodium Chloride 100 ml @ 200 mls/hr Q24H IV Last administered on 01/27/17 09:30; Start 01/26/17 at 08:00; Stop 01/27/17 at 12:24 ; Status DC Ferrous Sulfate (Ferrous Sulfate Liq) 300 mg BID PEG Last administered on 08:39; Start 01/26/17 at 21:00 Ascorbic Acid (Vitamin C) 500 mg BID PEG Last administered on 04/18/17 08:39; Start 01/26/17 at 21:00 Lactulose (Lactulose Liq) 30 ml BID PO Last administered on 01/31/17 21:21; Start 01/29/17 at 09:00; Stop 02/01/17 at 08:26; Status DC Water (Free Water) 100 ml Q6HR G-TUBE Last administered on 03/09/17 05:07; Start 01/29/17 at 12:00; Stop 03/09/17 at 13:57; Status DC Lactulose (Lactulose Liq) 45 ml TID PO ; Start 02/01/17 at 09:00; Stop 02/01/17 at 09:00; Status DC Diltiazem HCl (Cardizem Inj) 15 mg ONCE ONCE IV Last administered on 08:45; Start 02/01/17 at 08:45; Stop 02/01/17 at 08:46; Status DC Metoprolol Tartrate (Lopressor) 25 mg Q12HR G-TUBE Last administered on 23:05; Start 02/01/17 at 09:00; Stop 03/21/17 at 07:59; Status DC Acetaminophen/ Hydrocodone Bitart ([place] 5-325 Mg) 1 tab Q4H PRN G-TUBE PAIN SCALE 1 - 5 Last administered on 04/09/17 20:25; Start 02/01/17 at 11:30 Acetaminophen (Tylenol) 650 mg Q6H PRN G-TUBE FEVER >101F Last administered on 04/07/17 22:09; Start 02/01/17 at 09:30 Atorvastatin Calcium (Lipitor) 40 mg DAILY G-TUBE Last administered on 08:40; Start 02/01/17 at 09:00 Hyoscyamine Sulfate (Levsin Liq) 0.125 mg Q4H PRN G-TUBE secretions Last administered on 02/18/17 20:52; Start 02/01/17 at 11:15; Stop 03/10/17 at 17:15 ; Status DC Hyoscyamine Sulfate (Levsin) 0.125 mg Q8HR G-TUBE Last administered on 13:30; Start 02/01/17 at 14:00; Stop 02/11/17 at 18:00; Status DC Lactulose (Lactulose Liq) 45 ml TID G-TUBE Last administered on 02/20/17 14:37 ; Start 02/01/17 at 09:00; Stop 02/21/17 at 11:04; Status DC Insulin Human Regular (NovoLIN R SUPPLEMENTAL SCALE) 1 Q6H SQ Last administered on 02/01/17 16:58; Start 02/01/17 at 14:00; Stop 02/02/17 at 15:08 ; Status DC Sennosides (Senna Liq) 8.8 mg BID G-TUBE Last administered on 04/18/17 08:40 ; Start 02/01/17 at 09:00 Dextrose (D50w (Vial) Inj) 25 ml UNSCH PRN IV PUSH HYPOGLYCEMIA - SEE COMMENTS ; Start 02/01/17 at 09:15 Glucagon (Glucagon Inj) 1 mg UNSCH PRN OTHER HYPOGLYCEMIA-SEE COMMENTS; Start 02/01/17 at 09:15 Enoxaparin Sodium (Lovenox Inj) 100 mg Q12H SQ Last administered on 02/04/17 09:09; Start 02/01/17 at 10:00; Stop 02/04/17 at 13:06; Status DC Warfarin Sodium (Coumadin) 10 mg ONCE ONCE PO Last administered on 02/01/17 16:25; Start 02/01/17 at 16:00; Stop 02/01/17 at 16:01; Status DC Patient Medication Teaching (Coumadin Booklet) 1 ONCE ONCE OTHER ; Start at 16:00; Stop 02/01/17 at 16:01; Status DC Pharmacy Profile Note 0 ml @ 0 mls/hr UNSCH OTHER ; Start 02/01/17 at 09:15; Stop 04/05/17 at 12:40; Status DC Potassium Bicarb/ Potassium Chloride (K-Lyte Cl Eff) 50 meq ONCE ONCE G-TUBE Last administered on 02/01/17 16:23; Start 02/01/17 at 14:45; Stop 02/01/17 at 14:50; Status DC Furosemide (Lasix Inj) 20 mg ONCE ONCE IV PUSH Last administered on 02/01/17 16:24; Start 02/01/17 at 14:45; Stop 02/01/17 at 14:50; Status DC Potassium Bicarb/ Potassium Chloride (K-Lyte Cl Eff) 25 meq ONCE ONCE PO Last administered on 02/01/17 19:49; Start 02/01/17 at 19:00; Stop 02/01/17 at 19:01; Status DC Warfarin Sodium (Coumadin) 10 mg ONCE PO Last administered on 02/02/17 22:03; Start 02/02/17 at 16:00; Stop 02/02/17 at 23:59; Status DC Furosemide (Lasix) 20 mg DAILY PO Last administered on 02/06/17 09:30; Start at 09:00; Stop 02/06/17 at 11:59; Status DC Lisinopril (Prinivil) 5 mg DAILY@1600 PO Last administered on 02/28/17 16:30; Start 02/03/17 at 16:00; Stop 02/28/17 at 17:44; Status DC Warfarin Sodium (Coumadin) 10 mg ONCE ONCE PO Last administered on 02/03/17 16:49; Start 02/03/17 at 16:00; Stop 02/03/17 at 16:01; Status DC Warfarin Sodium (Coumadin) 5 mg DAILY@1600 PO Last administered on 02/05/17 16: 45; Start 02/04/17 at 16:00; Stop 02/06/17 at 12:31; Status DC Collagenase (Santyl Oint) 1 applic DAILY TOPICAL Last administered on 08:40; Start 02/04/17 at 15:00; Stop 02/23/17 at 11:55; Status DC Warfarin Sodium (Coumadin) 8 mg DAILY@1600 PO ; Start 02/06/17 at 16:00; Status Cancel Warfarin Sodium (Coumadin) 10 mg DAILY@1600 PO Last administered on 02/06/17 17 :28; Start 02/06/17 at 16:00; Stop 02/07/17 at 09:22; Status DC Albumin Human (Albumin 5% Inj) 12.5 gm Q12H IV Last administered on 02/26/17 13:03; Start 02/06/17 at 14:00; Stop 02/26/17 at 15:46; Status DC Furosemide (Lasix Inj) 20 mg BID IV PUSH Last administered on 02/22/17 22:16; Start 02/06/17 at 14:00; Stop 02/23/17 at 07:55; Status DC Warfarin Sodium (Coumadin) 7.5 mg DAILY@16 PO Last administered on 02/18/17 17 :35; Start 02/07/17 at 16:00; Stop 02/19/17 at 15:20; Status DC Nystatin (Mycostatin Liq) 5 ml QID SWISH-SWAL Last administered on 02/21/17 08:09; Start 02/08/17 at 18:00; Stop 02/21/17 at 11:04; Status DC Iohexol (Omnipaque 350 Inj) 10 ml STK-MED ONCE G-TUBE Last administered on 14:25; Start 02/10/17 at 15:17; Stop 02/10/17 at 15:18; Status DC Sodium Hypochlorite (Dakin'S 0.25% Soln) USE DAILY WITH DRESS... DAILY TOPICAL Last administered on 04/18/17 08:41; Start 02/12/17 at 18:00 Povidone Iodine (Betadine 10% Oint) 1 applic DAILY TOPICAL Last administered on 04/18/17 08:41; Start 02/15/17 at 09:00 Pharmacy Profile Note 0 ml @ 0 mls/hr UNSCH OTHER ; Start 02/14/17 at 18:00; Stop 02/14/17 at 19:02; Status DC Warfarin Sodium (Coumadin) 2.5 mg ONCE@1600 ONCE PO Last administered on 15:19; Start 02/15/17 at 16:00; Stop 02/15/17 at 16:01; Status DC Enoxaparin Sodium (Lovenox Inj) 100 mg Q12H SQ Last administered on 02/19/17 05:18; Start 02/15/17 at 16:30; Stop 02/19/17 at 16:47; Status DC Warfarin Sodium (Coumadin) 2.5 mg ONCE@1600 ONCE PO Last administered on 16:51; Start 02/16/17 at 16:00; Stop 02/16/17 at 16:01; Status DC Warfarin Sodium (Coumadin) 5 mg DAILY@1600 PO ; Start 02/19/17 at 16:00; Status Cancel Warfarin Sodium (Coumadin) 4 mg DAILY@1600 PO Last administered on 02/19/17 17 :23; Start 02/19/17 at 16:15; Stop 02/20/17 at 12:31; Status DC Warfarin Sodium (Coumadin) 10 mg DAILY@1600 PO ; Start 02/20/17 at 16:00; Status Cancel Warfarin Sodium (Coumadin) 8 mg DAILY@1600 PO Last administered on 02/23/17 15 :12; Start 02/21/17 at 16:00; Stop 02/24/17 at 12:14; Status DC Warfarin Sodium (Coumadin) 10 mg ONCE ONCE PO Last administered on 02/20/17 17:58; Start 02/20/17 at 16:00; Stop 02/20/17 at 16:01; Status DC Lactulose (Lactulose Liq) 30 ml TID G-TUBE Last administered on 04/06/17 11:26 ; Start 02/21/17 at 13:00; Stop 04/07/17 at 11:50; Status DC Warfarin Sodium (Coumadin) 2 mg ONCE@1600 ONCE PO Last administered on 15:34; Start 02/22/17 at 16:00; Stop 02/22/17 at 16:01; Status DC Furosemide (Lasix Inj) 20 mg Q8HR IV PUSH Last administered on 03/10/17 05:50; Start 02/23/17 at 14:00; Stop 03/10/17 at 09:51; Status DC Warfarin Sodium (Coumadin) 2 mg ONCE@1600 ONCE PO Last administered on 15:12; Start 02/23/17 at 16:00; Stop 02/23/17 at 16:01; Status DC Warfarin Sodium (Coumadin) 10 mg DAILY@16 PO Last administered on 03/07/17 16: 50; Start 02/24/17 at 16:00; Stop 03/08/17 at 14:05; Status DC Bacitracin (Bacitracin Oint Packet) 0.9 gm ONCE ONCE TOPICAL Last administered on 02/25/17 12:30; Start 02/25/17 at 09:00; Stop 02/25/17 at 09:01 ; Status DC Metolazone (Zaroxolyn) 5 mg DAILY PO Last administered on 03/08/17 08:56; Start 02/27/17 at 17:00; Stop 03/08/17 at 14:03; Status DC Sacubitril/ Valsartan (Entresto 24-26 Mg) 1 tab BID PO Last administered on 03/08 08:56; Start 03/02/17 at 09:00; Stop 03/08/17 at 14:06; Status DC Warfarin Sodium (Coumadin) 2.5 mg ONCE@1600 ONCE PO Last administered on 15:56; Start 03/01/17 at 16:00; Stop 03/01/17 at 16:01; Status DC Potassium Chloride (KCl Powder) 40 meq ONCE ONCE PO Last administered on 15:00; Start 03/06/17 at 15:00; Stop 03/06/17 at 15:01; Status DC Metolazone (Zaroxolyn) 5 mg DAILY PEG Last administered on 04/06/17 11:31; Start 03/09/17 at 09:00; Status Future Hold Warfarin Sodium (Coumadin) 10 mg DAILY@16 PEG Last administered on 03/24/17 16 :54; Start 03/08/17 at 16:00; Stop 03/28/17 at 12:27; Status DC Sacubitril/ Valsartan (Entresto 24-26 Mg) 1 tab BID PEG Last administered on 08:39; Start 03/08/17 at 21:00 Water (Free Water) VOLUME OF WATER: ( 300 ) ML Q8HR G-TUBE Last administered on 04/18/17 05:15; Start 03/09/17 at 14:00 Hyoscyamine Sulfate (Levsin Liq) 0.125 mg Q6H G-TUBE Last administered on 04/18 05:15; Start 03/10/17 at 18:00 Potassium Bicarb/ Potassium Chloride (K-Lyte Cl Eff) 25 meq ONCE ONCE PEG Last administered on 03/11/17 15:54; Start 03/11/17 at 15:00; Stop 03/11/17 at 15: 01; Status DC Potassium Chloride (KCl Powder) 40 meq ONCE ONCE PO Last administered on 11:33; Start 03/15/17 at 10:30; Stop 03/15/17 at 10:46; Status DC Furosemide (Lasix Inj) 40 mg ONCE ONCE IV PUSH Last administered on 03/15/17 11:33; Start 03/15/17 at 10:30; Stop 03/15/17 at 10:46; Status DC Potassium Chloride (KCl Powder) 20 meq ONCE ONCE PO Last administered on 14:49; Start 03/15/17 at 14:00; Stop 03/15/17 at 14:01; Status DC Levetriacetam (Keppra) 1,000 mg Q12HR PO Last administered on 03/20/17 23:05; Start 03/15/17 at 21:00; Stop 03/21/17 at 13:07; Status DC Furosemide (Lasix Inj) 20 mg DAILY IV PUSH Last administered on 04/18/17 08:39 ; Start 03/16/17 at 11:30 Potassium Chloride (KCl Powder) 20 meq DAILY NG Last administered on 04/06/17 09:00; Start 03/17/17 at 09:00; Stop 04/07/17 at 11:50; Status DC Dextrose (D50w (Vial) Inj) 50 ml UNSCH PRN IV HYPOGLYCEMIA-SEE COMMENTS; Start 03/17/17 at 07:45; Stop 03/20/17 at 07:36; Status DC Glucagon (Glucagon Inj) 1 mg UNSCH PRN OTHER HYPOGLYCEMIA-SEE COMMENTS; Start 03/17/17 at 07:45; Stop 03/20/17 at 07:36; Status DC Insulin Aspart (NovoLOG SUPPLEMENTAL SCALE) 1 ACHS SLIDING SCALE SQ Last administered on 03/17/17 15:30; Start 03/17/17 at 11:00; Stop 03/19/17 at 11:39 ; Status DC Warfarin Sodium (Coumadin) 2.5 mg ONCE PEG Last administered on 03/18/17 15:30 ; Start 03/18/17 at 16:00; Stop 03/18/17 at 23:59; Status DC Warfarin Sodium (Coumadin) 2.5 mg DAILY@1600 PEG Last administered on 15:06; Start 03/19/17 at 16:00; Stop 03/20/17 at 10:03; Status DC Patient Medication Teaching (Coumadin Booklet) 1 ONCE ONCE OTHER Last administered on 03/19/17 15:06; Start 03/19/17 at 16:00; Stop 03/19/17 at 16:01 ; Status DC Insulin Aspart (NovoLOG SUPPLEMENTAL SCALE) 1 BID SQ ; Start 03/19/17 at 21:00; Stop 03/20/17 at 12:44; Status DC Albuterol/ Ipratropium (Duoneb Neb) 1 ampule Q6HR NEB NEB Last administered on 03/21/17 03:23; Start 03/20/17 at 16:00; Stop 03/21/17 at 08:08; Status DC Insulin Aspart (NovoLOG SUPPLEMENTAL SCALE) 1 BID SQ Last administered on 22:04; Start 03/20/17 at 21:00 Ciprofloxacin/ Dextrose 200 ml @ 200 mls/hr Q12H IV Last administered on 13:15; Start 03/20/17 at 13:00; Stop 03/22/17 at 14:40; Status DC Metoprolol Tartrate (Lopressor Inj) 5 mg ONCE ONCE IV PUSH Last administered on 03/21/17 02:21; Start 03/21/17 at 02:00; Stop 03/21/17 at 02:01; Status DC Metoprolol Tartrate (Lopressor Inj) 5 mg ONCE PRN IV PUSH HR sustained > 130 Last administered on 03/21/17 03:04; Start 03/21/17 at 02:30; Stop 03/21/17 at 07:59; Status DC Metoprolol Tartrate (Lopressor Inj) 5 mg ONCE ONCE IV PUSH ; Start 03/21/17 at 07:00; Stop 03/21/17 at 07:01; Status DC Metoprolol Tartrate (Lopressor) 50 mg Q12HR G-TUBE Last administered on 10:19; Start 03/21/17 at 09:00; Stop 03/25/17 at 17:48; Status DC Diltiazem HCl 125 mg/Sodium Chloride 125 ml @ 0 mls/hr TITRATE IV Last administered on 03/21/17 09:25; Start 03/21/17 at 09:00; Stop 03/25/17 at 16:54 ; Status DC Albuterol Sulfate (Albuterol Neb) 0.63 mg Q4HR NEB PRN NEB SHORTNESS OF BREATH ; Start 03/21/17 at 09:15 Albuterol Sulfate (Albuterol Neb) 0.63 mg QID NEB NEB Last administered on 11:23; Start 03/21/17 at 12:00; Stop 03/25/17 at 12:00; Status DC Ipratropium [place] (Atrovent Neb) 0.5 mg QID NEB NEB Last administered on 11:03; Start 03/21/17 at 12:00 Levetriacetam (Keppra Liq) 1,000 mg Q12HR NG Last administered on 04/07/17 08 :44; Start 03/21/17 at 21:00; Stop 04/07/17 at 11:50; Status DC Ceftriaxone Sodium 2000 mg/ Sodium Chloride 100 ml @ 200 mls/hr Q24H IV Last administered on 04/04/17 17:35; Start 03/24/17 at 18:00; Stop 04/05/17 at 17:59 ; Status DC Warfarin Sodium (Coumadin) 5 mg ONCE ONCE PO Last administered on 03/25/17 16 :25; Start 03/25/17 at 16:00; Stop 03/25/17 at 16:01; Status DC Metoprolol Tartrate (Lopressor) 25 mg ONCE ONCE G-TUBE Last administered on 18:04; Start 03/25/17 at 17:00; Stop 03/25/17 at 17:01; Status DC Metoprolol Tartrate (Lopressor) 75 mg BID G-TUBE Last administered on 09:59; Start 03/25/17 at 21:00; Stop 03/27/17 at 13:08; Status DC Warfarin Sodium (Coumadin) 5 mg ONCE PO Last administered on 03/26/17 16:34; Start 03/26/17 at 16:00; Stop 03/26/17 at 23:59; Status DC Adenosine (Adenocard Inj) 6 mg STK-MED ONCE .ROUTE ; Start 03/27/17 at 10:57; Stop 03/27/17 at 12:14; Status DC Adenosine (Adenocard Inj) 6 mg STK-MED ONCE .ROUTE ; Start 03/27/17 at 11:10; Stop 03/27/17 at 12:15; Status DC Adenosine (Adenocard Inj) 6 mg STK-MED ONCE .ROUTE ; Start 03/27/17 at 11:10; Stop 03/27/17 at 12:15; Status DC Metoprolol Tartrate (Lopressor) 50 mg Q6HR G-TUBE Last administered on 05:15; Start 03/27/17 at 18:00 Warfarin Sodium (Coumadin) 7.5 mg ONCE ONCE PO Last administered on 03/27/17 17:13; Start 03/27/17 at 16:00; Stop 03/27/17 at 16:01; Status DC Warfarin Sodium (Coumadin) 7.5 mg DAILY@1600 PO Last administered on 04/04/17 17:36; Start 03/28/17 at 16:00; Stop 04/05/17 at 14:27; Status DC Warfarin Sodium (Coumadin) 1 mg ONCE@1600 ONCE PO Last administered on 17:31; Start 04/03/17 at 16:00; Stop 04/03/17 at 16:01; Status DC Enoxaparin Sodium (Lovenox Inj) 40 mg ONCE ONCE SQ Last administered on 08:00; Start 04/04/17 at 08:00; Stop 04/04/17 at 08:10; Status DC Warfarin Sodium (Coumadin) 1 mg ONCE ONCE PO Last administered on 04/04/17 17 :36; Start 04/04/17 at 16:00; Stop 04/04/17 at 16:01; Status DC Pharmacy Profile Note 0 ml @ 0 mls/hr UNSCH OTHER ; Start 04/04/17 at 11:00; Stop 04/05/17 at 14:27; Status DC Warfarin Sodium (Coumadin) 2.5 mg ONCE@1600 ONCE PO Last administered on 16:00; Start 04/05/17 at 16:00; Stop 04/05/17 at 16:01; Status DC Warfarin Sodium (Coumadin) 7.5 mg DAILY@16 PO Last administered on 04/06/17 16 :42; Start 04/05/17 at 16:00; Stop 04/07/17 at 11:50; Status DC Pharmacy Profile Note 0 ml @ 0 mls/hr UNSCH OTHER ; Start 04/05/17 at 14:45 Enoxaparin Sodium (Lovenox Inj) 40 mg ONCE ONCE SQ Last administered on 17:44; Start 04/05/17 at 17:00; Stop 04/05/17 at 17:01; Status DC Enoxaparin Sodium (Lovenox Inj) 40 mg ONCE ONCE SQ Last administered on 13:15; Start 04/06/17 at 13:15; Stop 04/06/17 at 13:16; Status DC Bromocriptine Mesylate (Parlodel) 2.5 mg Q12HR PEG Last administered on 08:39; Start 04/07/17 at 21:00 Famotidine (Pepcid) 20 mg BID PEG Last administered on 04/18/17 08:40; Start 04/07/17 at 21:00 Folic Acid (Folate) 1 mg DAILY PEG Last administered on 04/18/17 08:39; Start 04/08/17 at 09:00 Lactulose (Lactulose Liq) 30 ml BID G-TUBE Last administered on 04/18/17 08:39 ; Start 04/07/17 at 21:00 Levetriacetam (Keppra Liq) 1,000 mg Q12HR PEG Last administered on 04/18/17 08:40; Start 04/07/17 at 21:00 Potassium Chloride (KCl Powder) 20 meq DAILY PEG Last administered on 08:40; Start 04/08/17 at 09:00 Warfarin Sodium (Coumadin) 7.5 mg DAILY@16 PEG Last administered on 04/07/17 16:28; Start 04/07/17 at 16:00; Stop 04/08/17 at 11:21; Status DC Patient Medication Teaching (Coumadin Booklet) 1 ONCE ONCE OTHER Last administered on 04/07/17 16:27; Start 04/07/17 at 13:45; Stop 04/07/17 at 13:46 ; Status DC Collagenase (Santyl Oint) 1 applic DAILY TOPICAL Last administered on 08:41; Start 04/07/17 at 16:30 Warfarin Sodium (Coumadin) 7.5 mg DAILY@16 PEG Last administered on 04/17/17 17:07; Start 04/09/17 at 16:00 Warfarin Sodium (Coumadin) 10 mg ONCE@1600 ONCE PO Last administered on 16:12; Start 04/08/17 at 16:00; Stop 04/08/17 at 16:01; Status DC Warfarin Sodium (Coumadin) 2.5 mg ONCE ONCE PO Last administered on 04/09/17 17:00; Start 04/09/17 at 16:30; Stop 04/09/17 at 16:31; Status DC Warfarin Sodium (Coumadin) 3 mg ONCE@1600 ONCE PO Last administered on 15:49; Start 04/10/17 at 16:00; Stop 04/10/17 at 16:01; Status DC Warfarin Sodium (Coumadin) 2.5 mg ONCE ONCE PEG Last administered on 04/11/17 17:35; Start 04/11/17 at 17:15; Stop 04/11/17 at 17:16; Status DC Enoxaparin Sodium (Lovenox Inj) 40 mg ONCE ONCE SQ Last administered on 22:41; Start 04/12/17 at 21:00; Stop 04/12/17 at 21:01; Status DC Warfarin Sodium (Coumadin) 2.5 mg ONCE ONCE PEG Last administered on 04/13/17 17:42; Start 04/13/17 at 16:00; Stop 04/13/17 at 16:02; Status DC Enoxaparin Sodium (Lovenox Inj) 40 mg ONCE ONCE SQ Last administered on 17:49; Start 04/13/17 at 18:00; Stop 04/13/17 at 18:01; Status DC Warfarin Sodium (Coumadin) 2.5 mg ONCE ONCE PEG Last administered on 04/14/17 16:00; Start 04/14/17 at 16:00; Stop 04/14/17 at 16:01; Status DC Enoxaparin Sodium (Lovenox Inj) 40 mg ONCE ONCE SQ Last administered on 15:45; Start 04/14/17 at 15:45; Stop 04/14/17 at 15:50; Status DC Enoxaparin Sodium (Lovenox Inj) 40 mg ONCE ONCE SQ Last administered on 11:03; Start 04/15/17 at 08:30; Stop 04/15/17 at 08:31; Status DC Warfarin Sodium (Coumadin) 5 mg ONCE ONCE PO ; Start 04/15/17 at 16:00; Stop 04/15/17 at 16:01; Status DC Enoxaparin Sodium (Lovenox Inj) 40 mg ONCE ONCE SQ Last administered on 10:27; Start 04/16/17 at 08:00; Stop 04/16/17 at 08:01; Status DC Enoxaparin Sodium (Lovenox Inj) 50 mg ONCE ONCE SQ ; Start 04/16/17 at 10:30; Stop 04/16/17 at 10:31; Status DC Enoxaparin Sodium (Lovenox Inj) 90 mg ONCE ONCE SQ Last administered on 21:21; Start 04/16/17 at 20:00; Stop 04/16/17 at 20:01; Status DC Warfarin Sodium (Coumadin) 5 mg ONCE ONCE PO Last administered on 04/16/17 16: 40; Start 04/16/17 at 16:00; Stop 04/16/17 at 16:01; Status DC Warfarin Sodium (Coumadin) 5 mg ONCE ONCE PO Last administered on 04/17/17 13 :35; Start 04/17/17 at 11:15; Stop 04/17/17 at 11:16; Status DC 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 Status: Acute (2) Seizure ICD Code: R56.9 - Unspecified convulsions Status: Acute (3) CVA (cerebral vascular accident) ICD Code: I63.9 - Cerebral infarction, unspecified Status: Acute (4) Respiratory failure, acute ICD Code: J96.00 - Acute respiratory failure, unspecified whether with hypoxia or hypercapnia Status: Acute (5) COPD (chronic obstructive pulmonary disease) ICD Code: J44.9 - Chronic obstructive pulmonary disease, unspecified Status: Chronic (6) Acute hypernatremia ICD Code: E87.0 - Hyperosmolality and hypernatremia Status: Resolved (7) Microcytic anemia ICD Code: D50.9 - Iron deficiency anemia, unspecified Assessment and Plan Ms. Rivas is a 66-year-old female with a history of stroke who was admitted to the [facility] on 11/04/2016 due to difficulty getting her thoughts together. She was found to have multifocal nonhemorrhagic infarctions in the frontal and parietal regions. She was initially awake and following commands with weakness of RLE and some aphasia. She was transferred to [facility] where he had an cerebral angiogram consistent with moyamoya. There were plans to perform extracranial/intracranial bypass. However, she had a seizure and ended up being intubated for status epilepticus 11/09 or 11/10. She was found to have a new right frontal infarct area and she was started on Dilantin and Keppra and it was felt that she would not be a candidate for intervention. She has since undergone PEG placement. Apparently family requested transfer back to [place] because they live locally and wanted her closer to home. Patient remained under critical care medicine until 12/24/2016. Viridans strep bacteremia - resolved - ID following. Per ID, sputum cx with GNR and staph aureus ? colonization. Urine with Kleb pneumo and E Coli ? colonization - Repeat blood cx 03/23 shows no growth in 5 days. 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 Hyponatremia - improved Mixed systolic and diastolic heart failure, stable - echocardiogram 02/02/17 shows EF 35-40%, grade 3 diastolic dysfunction, severe tricuspid regurgitation, severe pulmonary HTN and severe mitral valve regurgitation. - continue Lasix 20mg daily - continue on Entresto - monitor electrolytes and renal function - monitor for s/sxs of fluid overload Chronic respiratory failure COPD Multilobar pneumonia, resolved - Pulmonary medicine following, appreciate assistance - Status post tracheostomy on 11/24/2016. Currently on T piece. Continue on Levsin prn for secretions. - completed antibiotic course with Tobramycin, course ended on 01/20/17. - Continue DuoNebs when necessary - supplement O2 to keep O2 sats > 90% Atrial fibrillation plus recent SVT - Cardiology signed off, stable - rate controlled - Continue Metoprolol 25mg q12hr and Coumadin - confirmed with Dr. Flores patient to continue Coumadin WITHOUT ASA. - INR subtherapeutic 1.6 bridging with Lovenox. Pharmacy to dose. Continue to monitor INR. Anasarca - Continue Lasix 20 mg IV daily Dysphagia Hypoalbuminemia - s/p PEG placement - continue Jevity 1.5 through PEG tube with [place] supplementation. - Continue TF continuous 60ml per hour New onset DM - HgbA1c 6.5 - Will DC Accu-Cheks since patient has not required any insulin. Dealt with patient's nurse. - BS controlled Sacral/Coccyx wound - Specialty bed ordered, continue - Wound care following - per theirs and plastics recs - Daily cleansing the wound with gauze and Dakin's solutions, then applying a nickel-thick portion of santyl to the entire wound bed, then packing with Dakin's soaked gauze. This should be covered with ABD and secured with tape. Anemia, microcytic, hypochromic - stable - iron studies-iron 33, TIBC 307, % sat 10.8, ferritin 346. Continue iron supplementation. - stool hemoccult negative - monitor intermittently GI Prophylaxis: Pepcid. DVT prophylaxis: SCDs. Coumadin. Full code. Lis Alan MD Apr 18, 2017 13:13
[2017-04-18] MEDS ORDERED: WARFARIN SOD 10 MG TAB PO SCH ×2 (16:00)
[2017-04-18] MEDS ORDERED: WARFARIN SOD 6 MG TAB PO SCH (16:00)
[2017-04-18] MEDS ORDERED: WARFARIN SOD 4 MG TAB PO SCH (16:00)
[2017-04-18] MEDS ORDERED: WARFARIN SOD 4 MG TAB PEG SCH (16:15)
[2017-04-18] MEDS: WARFARIN SOD 10 MG TAB PEG SCH (18:00)
[2017-04-19] VITALS (11 sets, daily range): BP systolic 112–146; BP diastolic 56–83; PULSE 76–104; RESP 18–26; TEMP 97.8–99.4; O2SAT 96–100
[2017-04-19] MEDS: HYOSCYAMINE SOLN 0.125 MG/ML 15 ML BTL G-TUBE SCH ×5 (01:28→23:12)
[2017-04-19] MEDS: METOPROLOL TARTRATE 25 MG TAB G-TUBE SCH ×5 (01:28→23:09)
[2017-04-19] MEDS: CHLORHEXIDINE GLUCONATE 2 % 1 PACK (2 CLOTHS) TOP SCH (03:02)
[2017-04-19] MEDS: FREE WATER G-TUBE SCH ×3 (05:45→23:11)
[2017-04-19] MEDS: RESP: IPRATROPIUM 0.5 MG/2.5 ML NEB NEB SCH ×4 (08:27→20:32)
[2017-04-19] MEDS: SENNOSIDES SYRUP 8.8 MG/5 ML CUP G-TUBE SCH ×2 (09:00→21:00)
[2017-04-19] MEDS: INSULIN ASPART SUPPLEMENTAL SCALE SQ SCH ×2 (09:00→21:00)
[2017-04-19] MEDS: POVIDONE IODINE 10% OINT 30 GM TUBE TOPICAL SCH (09:00)
[2017-04-19 09:52] LABS: INTERNATIONAL NORMALIZED RATIO 2.1 RATIO; PROTHROMBIN TIME - PATIENT 23.8 SEC (9.8-11.6)
[2017-04-19] MEDS: ASCORBIC ACID 500 MG TAB PEG SCH ×2 (09:52→23:09)
[2017-04-19] MEDS: LACTULOSE SYRUP 20 GM/30 ML CUP G-TUBE SCH ×2 (09:52→21:00)
[2017-04-19] MEDS: FAMOTIDINE 20 MG TAB PEG SCH ×2 (09:52→23:09)
[2017-04-19] MEDS: POTASSIUM CHLORIDE 20 MEQ PWD PACKET PEG SCH (09:53)
[2017-04-19] MEDS: BROMOCRIPTINE MESYLATE 2.5 MG TAB PEG SCH ×2 (09:53→23:09)
[2017-04-19] MEDS: FERROUS SULFATE 300 MG /5ML UDC PEG SCH ×2 (09:53→23:09)
[2017-04-19] MEDS: SACUBITRIL/VALSARTAN 24 MG-26 MG TAB PEG SCH ×2 (09:53→23:09)
[2017-04-19] MEDS: carBAMazepine SUSP 200 MG/10 ML UDC PEG SCH ×2 (09:53→23:10)
[2017-04-19] MEDS: FUROSEMIDE 20 MG/2 ML VIAL IV PUSH SCH (09:54)
[2017-04-19] MEDS: ATORVASTATIN 40 MG TAB G-TUBE SCH (09:54)
[2017-04-19] MEDS: levETIRAcetam 500 MG/5 ML UDC PEG SCH (09:54)
[2017-04-19] MEDS: FOLIC ACID 1 MG TAB PEG SCH (09:54)
[2017-04-19] MEDS: CHLORHEXIDINE 0.12% (ORAL KIT) 15 ML CUP MT SCH ×2 (09:55→23:07)
[2017-04-19] MEDS: JUVEN POWDER 1 PACK G-TUBE SCH ×2 (09:55→23:08)
[2017-04-19] MEDS: SODIUM CHLORIDE 0.9% FLUSH 10 ML FLUSH IV FLUSH SCH ×2 (09:55→23:08)
[2017-04-19] MEDS: SODIUM HYPOCHLORITE 0.25% 500 ML BTL TOPICAL SCH (10:07)
[2017-04-19] MEDS: COLLAGENASE OINT 30 GM TUBE TOPICAL SCH (10:07)
--- NOTE | 2017-04-19 13:49 | HHI.PR ---
Subjective Remarks 66 YOWF with Rf, s/p trach H/O CVA,Arango Arango disease On trach collar Mod amount of trach secretions. no fever No new complaint Objective Vital Signs Vital Signs Date Time Temp Pulse Resp B/P (MAP) Pulse Ox O2 Delivery O2 Flow Rate FiO2 04/19/17 12:08 99 T-Piece 4.00 28 04/19/17 10:10 99 T-Piece 4.00 28 04/19/17 10:10 85 04/19/17 08:27 96 T-piece 4.00 28 04/19/17 08:08 98.4 87 20 146/65 (92) 100 04/19/17 04:00 T-Piece 5.00 28 04/19/17 04:00 98.7 78 18 112/56 (74) 99 04/19/17 00:00 98.7 104 18 118/83 (95) 100 04/19/17 00:00 T-Piece 5.00 28 04/18/17 20:10 86 04/18/17 20:00 T-Piece 6.00 28 04/18/17 20:00 98.4 96 20 140/82 (101) 100 04/18/17 19:59 100 T-piece 5.00 28 04/18/17 18:07 96.5 94 19 122/51 (74) 100 I/O 04/18/17 04/18/17 04/18/17 04/19/17 04/19/17 04/19/17 07:00 15:00 23:00 07:00 15:00 23:00 Intake Total 720 ml 0 ml 720 ml Output Total 550 ml 1000 ml 350 ml Balance 170 ml -1000 ml 370 ml Intake Oral 0 ml 0 ml 0 ml Tube Feeding 720 ml 720 ml Output Urine Total 550 ml 1000 ml 350 ml # Bowel Movements 2 1 2 Objective Remarks GENERAL: MBMN WF, on Trach collar SKIN: Warm and dry. HEAD: Normocephalic. EYES: No scleral icterus. No injection or drainage. NECK: Supple, trachea midline. No JVD or lymphadenopathy. has trach CARDIOVASCULAR: Regular rate and rhythm without murmurs, gallops, or rubs. RESPIRATORY: Breath sounds equal bilaterally. No accessory muscle use. GASTROINTESTINAL: Abdomen soft, non-tender, nondistended. has PEG MUSCULOSKELETAL: No cyanosis, or edema. BACK: Nontender without obvious deformity. No CVA tenderness. A/P Assessment and Plan RF, S/P Trach CVA Arango arango disease CAD COPD SZ disorder PLAN: Aerosol nebs Cont trach collar supplement 02, keep sat >90%. TF Cont Levsin.prn Suction prn Vernon Marx MD Apr 19, 2017 13:49
--- NOTE | 2017-04-19 14:53 | HHI.PR ---
Subjective Remarks Flow for CVA Patient is nonverbal and does not follow any commands. No acute issues. Objective Vitals Vital Signs Date Time Temp Pulse Resp B/P (MAP) Pulse Ox O2 Delivery O2 Flow Rate FiO2 04/19/17 12:08 97.8 86 20 126/60 (82) 99 04/19/17 12:08 99 T-Piece 4.00 28 04/19/17 10:10 99 T-Piece 4.00 28 04/19/17 10:10 85 04/19/17 08:27 96 T-piece 4.00 28 04/19/17 08:08 98.4 87 20 146/65 (92) 100 04/19/17 04:00 T-Piece 5.00 28 04/19/17 04:00 98.7 78 18 112/56 (74) 99 04/19/17 00:00 98.7 104 18 118/83 (95) 100 04/19/17 00:00 T-Piece 5.00 28 04/18/17 20:10 86 04/18/17 20:00 T-Piece 6.00 28 04/18/17 20:00 98.4 96 20 140/82 (101) 100 04/18/17 19:59 100 T-piece 5.00 28 04/18/17 18:07 96.5 94 19 122/51 (74) 100 I/O 04/18/17 04/18/17 04/18/17 04/19/17 04/19/17 04/19/17 07:00 15:00 23:00 07:00 15:00 23:00 Intake Total 720 ml 0 ml 720 ml Output Total 550 ml 1000 ml 350 ml Balance 170 ml -1000 ml 370 ml Intake Oral 0 ml 0 ml 0 ml Tube Feeding 720 ml 720 ml Output Urine Total 550 ml 1000 ml 350 ml # Bowel Movements 2 1 2 Objective Remarks GENERAL: Pt encountered laying a bed, T-piece in place. SKIN: Warm and dry. No pitting edema noted along forearms and feet this afternoon. HEAD: Normocephalic. EYES: No scleral icterus. No injection or drainage. NECK: Supple, t-piece in place. CARDIOVASCULAR: Regular rate and rhythm without murmurs, gallops, or rubs. Per bedside monitor, heart rate was in the 100. RESPIRATORY: Bilateral transmitted upper respiratory sounds otherwise no wheezing or crackles. GASTROINTESTINAL: Abdomen soft, non-tender non-distended. G-tube in place MUSCULOSKELETAL: No cyanosis. Bilateral SCD's in place as were bilateral off loading boots. Neurological: eyes are close and open briefly with noxious stimuli. Does not follow any commands. Procedures PEG 11/24/2016 Percutaneous tracheostomy. 11/18/2016 Moderate encephalopathy with suggestion of left temporal region cortical irritability. No active seizures. Clinical correlation. Echocardiogram Severe dilated left ventricle. Wall thickness is normal. The left ventricular systolic function is moderately reduced with an estimated ejection fraction in the range of 35-40%. Doppler parameters are consistent with a restrictive left ventricular filling pattern indicative of decreased left ventricular diastolic compliance and increase left atrial pressure (grade 3 diastolic dysfunction). There is severe tricuspid regurgitation. There is severe pulmonary hypertension present ( > 70 mmHg). Severe mitral valve regurgitation. Medications and IVs Current Medications Chlorhexidine Gluconate (Peridex 0.12% Liq) 15 ml BID@08,20 MT Last administered on 04/19/17 09:55; Start 11/18/16 at 08:00 Sodium Chloride 1,000 ml @ 84 mls/hr [id number] IV Last administered on 15:29; Start 11/18/16 at 03:24; Stop 11/19/16 at 15:19; Status DC Sodium Chloride (NS Flush) 2 ml BID IV FLUSH Last administered on 04/19/17 09: 55; Start 11/18/16 at 09:00 Acetaminophen (Tylenol) 650 mg Q6H PRN PO FEVER >101F Last administered on 01/01 16:01; Start 11/18/16 at 03:30; Stop 02/01/17 at 08:46; Status DC Acetaminophen/ Hydrocodone Bitart ([place] 5-325 Mg) 1 tab Q4H PRN PO PAIN SCALE 1 - 5 Last administered on 01/17/17 09:16; Start 11/18/16 at 03:30; Stop 02/01/17 at 08:46; Status DC Morphine Sulfate (Morphine Inj) 2 mg Q2H PRN IV PAIN SCALE 6 TO 10 Last administered on 03/27/17 10:13; Start 11/18/16 at 03:30 Pantoprazole Sodium (Protonix Inj) 40 mg DAILY IV Last administered on 08:30; Start 11/18/16 at 09:00; Stop 12/21/16 at 11:34; Status DC Ondansetron HCl (Zofran Inj) 4 mg Q6H PRN IV NAUSEA OR VOMITING Last administered on 11/26/16 03:20; Start 11/18/16 at 03:30 Docusate Sodium (Colace) 100 mg BID OG-TUBE Last administered on 11/19/16 08: 23; Start 11/18/16 at 09:00; Stop 11/19/16 at 23:57; Status DC Albuterol/ Ipratropium (Duoneb Neb) 1 ampule Q6HR NEB INH Last administered on 11/22/16 03:35; Start 11/18/16 at 04:00; Stop 11/22/16 at 04:00; Status DC Albuterol Sulfate (Albuterol Neb) 2.5 mg Q2HR NEB PRN INH SOB/WHEEZING Last administered on 01/26/17 00:54; Start 11/18/16 at 03:30; Stop 03/21/17 at 08:08 ; Status DC Miscellaneous Information 1 [id number] Last administered on 11/18/16 03:30; Start 11/18/16 at 03:30 Chlorhexidine Gluconate (Chlorhexidine 2% Cloth) 3 pack Taper DAILY@04 TOP Last administered on 04/06/17 04:33; Start 11/18/16 at 04:00; Stop 11/14/17 at 03:59 Chlorhexidine Gluconate (Chlorhexidine 2% Cloth) 3 pack UNSCH PRN TOP HYGIENIC CARE; Start 11/18/16 at 03:30 Heparin Sodium (Porcine) (Heparin Inj) 5,000 units Q8HR SQ Last administered on 11/19/16 14:20; Start 11/18/16 at 06:00; Stop 11/19/16 at 15:08; Status DC Aspirin (Aspirin Chew) 324 mg DAILY NG Last administered on 03/02/17 09:45; Start 11/18/16 at 09:00; Stop 03/02/17 at 15:58; Status DC Levetriacetam 100 ml @ 400 mls/hr Q12HR IV Last administered on 12/21/16 08: 30; Start 11/18/16 at 09:00; Stop 12/21/16 at 11:34; Status DC Levetriacetam 500 mg/Sodium Chloride 105 ml @ 420 mls/hr Q12HR IV Last administered on 12/21/16 08:30; Start 11/18/16 at 09:00; Stop 12/21/16 at 11:35 ; Status DC Atorvastatin Calcium (Lipitor) 40 mg DAILY PO Last administered on 01/31/17 08 :37; Start 11/18/16 at 09:00; Stop 02/01/17 at 08:46; Status DC Bromocriptine Mesylate (Parlodel) 2.5 mg Q12HR OG-TUBE Last administered on 21:47; Start 11/18/16 at 09:00; Stop 04/07/17 at 11:49; Status DC Folic Acid (Folate) 1 mg DAILY OG-TUBE Last administered on 04/06/17 11:31; Start 11/18/16 at 09:00; Stop 04/07/17 at 11:49; Status DC Potassium Chloride 100 ml @ 50 mls/hr Q2H PRN IV For Potassium 2.8 - 3.2 mEq/L ; Start 11/18/16 at 13:30; Stop 01/18/17 at 14:42; Status DC Potassium Chloride 100 ml @ 50 mls/hr Q2H PRN IV For Potassium 2.8 - 3.2 mEq/ L Last administered on 11/27/16 14:13; Start 11/18/16 at 13:30; Stop 01/18/17 at 14:42; Status DC Potassium Bicarb/ Potassium Chloride (K-Lyte Cl Eff) 50 meq UNSCH PRN PO For Potassium 3.3 - 3.5 mEq/L Last administered on 11/29/16 06:20; Start 11/18/16 at 13:30; Stop 01/18/17 at 14:42; Status DC Potassium Chloride 100 ml @ 25 mls/hr UNSCH PRN IV For Potassium 3.3 - 3.5 mEq /L; Start 11/18/16 at 13:30; Stop 01/18/17 at 14:42; Status DC Potassium Chloride 100 ml @ 50 mls/hr Q2H PRN IV For Potassium 3.3 - 3.5 mEq/ L Last administered on 4/19/17at 06:27; Start 11/18/16 at 13:30; Stop 01/18/17 at 14:42; Status DC Magnesium Sulfate 4 gm/Sodium Chloride 100 ml @ 50 mls/hr UNSCH PRN IV For Magnesium 0.9 - 1.1 mg/dL; Start 11/18/16 at 13:30; Stop 01/18/17 at 14:42; Status DC Magnesium Oxide (Mag-Ox) 800 mg UNSCH PRN PO For Magnesium 1.2 - 1.6 mg/dL; Start 11/18/16 at 13:30; Stop 01/18/17 at 14:42; Status DC Magnesium Sulfate 2 gm/Sodium Chloride 100 ml @ 50 mls/hr UNSCH PRN IV For Magnesium 1.2 - 1.6 mg/dL; Start 11/18/16 at 13:30; Stop 01/18/17 at 14:42; Status DC Potassium Phosphate (K-Phos) 2,000 mg Q4H PRN PO For Phosphorus < 2.5 mg/dL; Start 11/18/16 at 13:30; Stop 01/18/17 at 14:42; Status DC Sodium Phosphate 30 mmol/Sodium Chloride 250 ml @ 42 mls/hr UNSCH PRN IV For Phosphorus < 2.5 mg/dL; Start 11/18/16 at 13:30; Stop 01/18/17 at 14:42; Status DC Potassium Phosphate (K-Phos) 2,000 mg UNSCH PRN PO/TUBE SEE LABEL COMMENTS; Start 11/18/16 at 13:30; Stop 01/18/17 at 14:42; Status DC Potassium Phosphate 30 mmol/ Sodium Chloride 260 ml @ 42 mls/hr UNSCH PRN IV SEE LABEL COMMENTS; Start 11/18/16 at 13:30; Stop 01/18/17 at 14:42; Status DC Bisacodyl (Dulcolax Supp) 10 mg DAILY PRN RECTAL CONSTIPATION; Start 11/19/16 at 12:45; Stop 11/19/16 at 15:15; Status DC Sennosides (Senna Liq) 8.8 mg BID PO Last administered on 01/18/17t 08:54; Start 11/19/16 at 21:00; Stop 02/01/17 at 08:46; Status DC Docusate Sodium (Colace Liq) 100 mg Q12HR PO Last administered on 01/18/17 08: 52; Start 11/19/16 at 21:00; Stop 01/19/17 at 10:44; Status DC Polyethylene Glycol (Miralax) 17 gm DAILY PO Last administered on 01/18/17 08: 54; Start 11/21/16 at 18:00; Stop 01/20/17 at 13:15; Status DC Bisacodyl (Dulcolax Supp) 10 mg ONCE ONCE RECTAL Last administered on 08:12; Start 11/21/16 at 08:00; Stop 11/21/16 at 08:01; Status DC Cefazolin Sodium/ Dextrose 50 ml @ 100 mls/hr ONCE ONCE IV Last administered on 11/22/16 13:23; Start 11/22/16 at 05:00; Stop 11/22/16 at 05:29; Status DC Dextrose (D50w (Vial) Inj) 25 ml UNSCH PRN IV PUSH HYPOGLYCEMIA-SEE COMMENTS; Start 11/22/16 at 08:00; Stop 02/01/17 at 09:08; Status DC Glucagon (Glucagon Inj) 1 mg UNSCH PRN OTHER HYPOGLYCEMIA-SEE COMMENTS; Start 11/22/16 at 08:00; Stop 02/01/17 at 09:08; Status DC Insulin Human Regular (NovoLIN R SUPPLEMENTAL SCALE) 1 Q6H SQ Last administered on 01/31/17 08:00; Start 11/22/16 at 08:00; Stop 02/01/17 at 08:46 ; Status DC Albuterol/ Ipratropium (Duoneb Neb) 1 ampule Q6HR NEB NEB Last administered on 11/26/16 07:49; Start 11/22/16 at 10:00; Stop 11/26/16 at 10:00; Status DC Bumetanide (Bumex Inj) 1 mg DAILY IV PUSH Last administered on 12/16/16 08:59 ; Start 11/22/16 at 12:15; Stop 12/17/16 at 08:01; Status DC Propofol (Diprivan 200 Mg/20 ml Inj) 50 mg STK-MED ONCE IV ; Start 11/22/16 at 14:32; Stop 11/22/16 at 15:24; Status DC Miscellaneous Information Hold Anticoagulation after midni... ONCE ONCE OTHER ; Start 11/22/16 at 15:45; Stop 11/22/16 at 15:47; Status DC Midazolam HCl (Versed Inj) 4 mg ONCE ONCE IV PUSH ; Start 11/23/16 at 09:15; Stop 11/23/16 at 10:16; Status DC Vecuronium [place] (Norcuron 10 Mg Inj) 10 mg ONCE ONCE IV PUSH ; Start at 09:15; Stop 11/23/16 at 10:17; Status DC Fentanyl Citrate (fentaNYL INJ) 200 mcg ONCE ONCE IV PUSH ; Start 11/23/16 at 09:15; Stop 11/23/16 at 10:16; Status DC Metoprolol Tartrate (Lopressor Inj) 5 mg Q6H PRN IV PUSH SBP > 170 Last administered on 01/12/17 03:20; Start 11/23/16 at 22:45; Stop 03/20/17 at 07:36 ; Status DC Fentanyl Citrate (fentaNYL INJ) 200 mcg ONCE ONCE IV PUSH Last administered on 11/24/16 14:00; Start 11/24/16 at 12:30; Stop 11/24/16 at 12:31; Status DC Midazolam HCl (Versed Inj) 4 mg ONCE ONCE IV PUSH ; Start 11/24/16 at 12:30; Stop 11/24/16 at 12:31; Status DC Vecuronium [place] (Norcuron 10 Mg Inj) 10 mg ONCE ONCE IV PUSH ; Start at 12:30; Stop 11/24/16 at 12:31; Status DC Lactulose (Lactulose Liq) 15 ml BID PO Last administered on 01/21/17 21:21; Start 11/26/16 at 09:00; Stop 01/22/17 at 07:29; Status DC Ceftriaxone Sodium 1000 mg/ Sodium Chloride 100 ml @ 200 mls/hr Q24H IV Last administered on 11/26/16 10:30; Start 11/26/16 at 10:00; Stop 11/27/16 at 03:34 ; Status DC Piperacillin Sod/ Tazobactam Sod 100 ml @ 200 mls/hr Q6H IV Last administered on 11/29/16 04:00; Start 11/27/16 at 04:00; Stop 11/29/16 at 09:46; Status DC Pharmacy Profile Note 0 ml @ 0 mls/hr UNSCH OTHER ; Start 11/27/16 at 03:45; Stop 11/29/16 at 09:46; Status DC Vancomycin HCl 1000 mg/Sodium Chloride 250 ml @ 250 mls/hr ONCE ONCE IV ; Start 11/27/16 at 03:45; Stop 11/27/16 at 04:44; Status Cancel Vancomycin HCl 1500 mg/Sodium Chloride 515 ml @ 257.5 mls/ hr ONCE ONCE IV Last administered on 11/27/16 04:18; Start 11/27/16 at 05:00; Stop 11/27/16 at 06:59; Status DC Gelatin (Gelfoam 12 Mm/7 Mm Top) 1 foam STK-MED ONCE .ROUTE Last administered on 11/27/16 04:08; Start 11/27/16 at 04:08; Stop 11/27/16 at 04:09; Status DC Gelatin (Gelfoam 12 Mm/7 Mm Top) 3 foam STK-MED ONCE .ROUTE Last administered on 11/27/16 05:38; Start 11/27/16 at 05:38; Stop 11/27/16 at 05:39; Status DC Vancomycin HCl 1000 mg/Sodium Chloride 250 ml @ 250 mls/hr Q12H IV Last administered on 11/28/16 16:12; Start 11/27/16 at 16:00; Stop 11/28/16 at 18:29 ; Status DC Miscellaneous Information SPECIFIC LAB TO BE MERLY... ONCE ONCE .XX ; Start 11/28 at 15:45; Stop 11/28/16 at 15:51; Status DC Vancomycin HCl 1250 mg/Sodium Chloride 250 ml @ 250 mls/hr Q24H IV ; Start at 16:00; Stop 11/29/16 at 16:00; Status DC Miscellaneous Information SPECIFIC LAB TO BE MERLY... ONCE ONCE .XX ; Start 12/01 at 15:45; Stop 12/01/16 at 15:45; Status DC Ceftriaxone Sodium 1000 mg/ Sodium Chloride 100 ml @ 200 mls/hr Q24H IV Last administered on 12/10/16 09:56; Start 11/29/16 at 11:00; Stop 12/10/16 at 17:17; Status DC Magnesium Sulfate 2 gm/Sodium Chloride 104 ml @ 52 mls/hr ONCE ONCE IV Last administered on 12/06/16 15:43; Start 12/06/16 at 15:30; Stop 12/06/16 at 17:29; Status DC Bisacodyl (Dulcolax Supp) 10 mg DAILY PRN RECTAL CONSTIPATION; Start 12/14/16 at 15:45 Piperacillin Sod/ Tazobactam Sod 50 ml @ 100 mls/hr Q6H IV Last administered on 01/09/17 09:04; Start 12/19/16 at 10:00; Stop 01/09/17 at 11:54; Status DC Pharmacy Profile Note 0 ml @ 0 mls/hr UNSCH OTHER ; Start 12/19/16 at 10:00; Stop 12/21/16 at 11:35; Status DC Vancomycin HCl 1000 mg/Sodium Chloride 250 ml @ 250 mls/hr Q12H IV Last administered on 12/20/16 22:58; Start 12/19/16 at 11:00; Stop 12/21/16 at 08:33 ; Status DC Miscellaneous Information SPECIFIC LAB TO BE DRAWN:VANCOMYCIN TROUGH DATE TO... ONCE ONCE .XX Last administered on 12/20/16 22:45; Start 12/20/16 at 22:45; Stop 12/20/16 at 22:46; Status DC Vancomycin HCl 1250 mg/Sodium Chloride 262.5 ml @ 250 mls/hr Q12H IV Last administered on 12/21/16 10:39; Start 12/21/16 at 11:00; Stop 12/21/16 at 11:35 ; Status DC Miscellaneous Information SPECIFIC LAB TO BE DRAWN:VANCOMYCIN TROUGH DATE TO... ONCE ONCE .XX ; Start 12/23/16 at 10:45; Stop 12/23/16 at 10:46; Status Cancel Famotidine (Pepcid) 20 mg BID NG Last administered on 04/06/17 21:47; Start at 21:00; Stop 04/07/17 at 11:50; Status DC Levetriacetam (Keppra Liq) 1,500 mg Q12HR NG Last administered on 03/12/17 21: 58; Start 12/21/16 at 21:00; Stop 03/21/17 at 13:07; Status DC Albuterol/ Ipratropium (Duoneb Neb) 1 ampule QID NEB NEB Last administered on 12/28/16 12:04; Start 12/21/16 at 12:00; Stop 12/28/16 at 12:56; Status DC Hyoscyamine Sulfate (Levsin Liq) 0.125 mg Q4H PRN PO secretions Last administered on 01/24/17 01:45; Start 12/28/16 at 07:15; Stop 02/01/17 at 08:46 ; Status DC Iron Sucrose 100 mg/Sodium Chloride 105 ml @ 105 mls/hr Q24H IV Last administered on 01/04/17 13:33; Start 01/02/17 at 15:00; Stop 01/04/17 at 15:59 ; Status DC Collagenase (Santyl Oint) 1 applic DAILY TOPICAL Last administered on 09:00; Start 01/04/17 at 11:30; Stop 01/27/17 at 16:16; Status DC Carbamazepine (TEGretol LIQ) 200 mg Q12HR PEG Last administered on 04/19/17 09 :53; Start 01/06/17 at 09:00 Water (Free Water) 200 ml Q8HR G-TUBE Last administered on 01/14/17 13:53; Start 01/09/17 at 14:00; Stop 01/14/17 at 15:15; Status DC Tobramycin Sulfate (Tobramycin Neb) 80 mg Q12HR NEB NEB Last administered on 19:01; Start 01/09/17 at 20:00; Stop 01/20/17 at 19:59; Status DC Arginine HCl ([place] Powder) 1 pack BID G-TUBE Last administered on 04/19/17 09 :55; Start 01/13/17 at 09:00 Water (Free Water) 200 ml Q6HR G-TUBE Last administered on 01/29/17 05:05; Start 01/14/17 at 18:00; Stop 01/29/17 at 08:00; Status DC Hyoscyamine Sulfate (Levsin) 0.125 mg Q8HR PO Last administered on 02/01/17 05 :26; Start 01/19/17 at 22:00; Stop 02/01/17 at 08:46; Status DC Polyethylene Glycol (Miralax) 17 gm DAILY@18 PO Last administered on 01/21/17 17:28; Start 01/20/17 at 18:00; Stop 01/22/17 at 07:29; Status DC Lactulose (Lactulose Liq) 15 ml BID PO Last administered on 01/28/17 22:21; Start 01/23/17 at 11:00; Stop 01/29/17 at 07:59; Status DC Ceftriaxone Sodium 1000 mg/ Sodium Chloride 100 ml @ 200 mls/hr Q24H IV Last administered on 01/27/17 09:30; Start 01/26/17 at 08:00; Stop 01/27/17 at 12:24 ; Status DC Ferrous Sulfate (Ferrous Sulfate Liq) 300 mg BID PEG Last administered on 09:53; Start 01/26/17 at 21:00 Ascorbic Acid (Vitamin C) 500 mg BID PEG Last administered on 04/19/17 09:52; Start 01/26/17 at 21:00 Lactulose (Lactulose Liq) 30 ml BID PO Last administered on 01/31/17 21:21; Start 01/29/17 at 09:00; Stop 02/01/17 at 08:26; Status DC Water (Free Water) 100 ml Q6HR G-TUBE Last administered on 03/09/17 05:07; Start 01/29/17 at 12:00; Stop 03/09/17 at 13:57; Status DC Lactulose (Lactulose Liq) 45 ml TID PO ; Start 02/01/17 at 09:00; Stop 02/01/17 at 09:00; Status DC Diltiazem HCl (Cardizem Inj) 15 mg ONCE ONCE IV Last administered on 08:45; Start 02/01/17 at 08:45; Stop 02/01/17 at 08:46; Status DC Metoprolol Tartrate (Lopressor) 25 mg Q12HR G-TUBE Last administered on 23:05; Start 02/01/17 at 09:00; Stop 03/21/17 at 07:59; Status DC Acetaminophen/ Hydrocodone Bitart ([place] 5-325 Mg) 1 tab Q4H PRN G-TUBE PAIN SCALE 1 - 5 Last administered on 04/09/17 20:25; Start 02/01/17 at 11:30 Acetaminophen (Tylenol) 650 mg Q6H PRN G-TUBE FEVER >101F Last administered on 04/07/17 22:09; Start 02/01/17 at 09:30 Atorvastatin Calcium (Lipitor) 40 mg DAILY G-TUBE Last administered on 09:54; Start 02/01/17 at 09:00 Hyoscyamine Sulfate (Levsin Liq) 0.125 mg Q4H PRN G-TUBE secretions Last administered on 02/18/17 20:52; Start 02/01/17 at 11:15; Stop 03/10/17 at 17:15 ; Status DC Hyoscyamine Sulfate (Levsin) 0.125 mg Q8HR G-TUBE Last administered on 13:30; Start 02/01/17 at 14:00; Stop 02/11/17 at 18:00; Status DC Lactulose (Lactulose Liq) 45 ml TID G-TUBE Last administered on 02/20/17 14:37 ; Start 02/01/17 at 09:00; Stop 02/21/17 at 11:04; Status DC Insulin Human Regular (NovoLIN R SUPPLEMENTAL SCALE) 1 Q6H SQ Last administered on 02/01/17 16:58; Start 02/01/17 at 14:00; Stop 02/02/17 at 15:08 ; Status DC Sennosides (Senna Liq) 8.8 mg BID G-TUBE Last administered on 04/18/17 08:40 ; Start 02/01/17 at 09:00 Dextrose (D50w (Vial) Inj) 25 ml UNSCH PRN IV PUSH HYPOGLYCEMIA - SEE COMMENTS ; Start 02/01/17 at 09:15 Glucagon (Glucagon Inj) 1 mg UNSCH PRN OTHER HYPOGLYCEMIA-SEE COMMENTS; Start 02/01/17 at 09:15 Enoxaparin Sodium (Lovenox Inj) 100 mg Q12H SQ Last administered on 02/04/17 09:09; Start 02/01/17 at 10:00; Stop 02/04/17 at 13:06; Status DC Warfarin Sodium (Coumadin) 10 mg ONCE ONCE PO Last administered on 02/01/17 16:25; Start 02/01/17 at 16:00; Stop 02/01/17 at 16:01; Status DC Patient Medication Teaching (Coumadin Booklet) 1 ONCE ONCE OTHER ; Start at 16:00; Stop 02/01/17 at 16:01; Status DC Pharmacy Profile Note 0 ml @ 0 mls/hr UNSCH OTHER ; Start 02/01/17 at 09:15; Stop 04/05/17 at 12:40; Status DC Potassium Bicarb/ Potassium Chloride (K-Lyte Cl Eff) 50 meq ONCE ONCE G-TUBE Last administered on 02/01/17 16:23; Start 02/01/17 at 14:45; Stop 02/01/17 at 14:50; Status DC Furosemide (Lasix Inj) 20 mg ONCE ONCE IV PUSH Last administered on 02/01/17 16:24; Start 02/01/17 at 14:45; Stop 02/01/17 at 14:50; Status DC Potassium Bicarb/ Potassium Chloride (K-Lyte Cl Eff) 25 meq ONCE ONCE PO Last administered on 02/01/17 19:49; Start 02/01/17 at 19:00; Stop 02/01/17 at 19:01; Status DC Warfarin Sodium (Coumadin) 10 mg ONCE PO Last administered on 02/02/17 22:03; Start 02/02/17 at 16:00; Stop 02/02/17 at 23:59; Status DC Furosemide (Lasix) 20 mg DAILY PO Last administered on 02/06/17 09:30; Start at 09:00; Stop 02/06/17 at 11:59; Status DC Lisinopril (Prinivil) 5 mg DAILY@1600 PO Last administered on 02/28/17 16:30; Start 02/03/17 at 16:00; Stop 02/28/17 at 17:44; Status DC Warfarin Sodium (Coumadin) 10 mg ONCE ONCE PO Last administered on 02/03/17 16:49; Start 02/03/17 at 16:00; Stop 02/03/17 at 16:01; Status DC Warfarin Sodium (Coumadin) 5 mg DAILY@1600 PO Last administered on 02/05/17 16: 45; Start 02/04/17 at 16:00; Stop 02/06/17 at 12:31; Status DC Collagenase (Santyl Oint) 1 applic DAILY TOPICAL Last administered on 08:40; Start 02/04/17 at 15:00; Stop 02/23/17 at 11:55; Status DC Warfarin Sodium (Coumadin) 8 mg DAILY@1600 PO ; Start 02/06/17 at 16:00; Status Cancel Warfarin Sodium (Coumadin) 10 mg DAILY@1600 PO Last administered on 02/06/17 17 :28; Start 02/06/17 at 16:00; Stop 02/07/17 at 09:22; Status DC Albumin Human (Albumin 5% Inj) 12.5 gm Q12H IV Last administered on 02/26/17 13:03; Start 02/06/17 at 14:00; Stop 02/26/17 at 15:46; Status DC Furosemide (Lasix Inj) 20 mg BID IV PUSH Last administered on 02/22/17 22:16; Start 02/06/17 at 14:00; Stop 02/23/17 at 07:55; Status DC Warfarin Sodium (Coumadin) 7.5 mg DAILY@16 PO Last administered on 02/18/17 17 :35; Start 02/07/17 at 16:00; Stop 02/19/17 at 15:20; Status DC Nystatin (Mycostatin Liq) 5 ml QID SWISH-SWAL Last administered on 02/21/17 08:09; Start 02/08/17 at 18:00; Stop 02/21/17 at 11:04; Status DC Iohexol (Omnipaque 350 Inj) 10 ml STK-MED ONCE G-TUBE Last administered on 14:25; Start 02/10/17 at 15:17; Stop 02/10/17 at 15:18; Status DC Sodium Hypochlorite ([place] 0.25% Soln) USE DAILY WITH DRESS... DAILY TOPICAL Last administered on 04/19/17 10:07; Start 02/12/17 at 18:00 Povidone Iodine (Betadine 10% Oint) 1 applic DAILY TOPICAL Last administered on 04/18/17 08:41; Start 02/15/17 at 09:00 Pharmacy Profile Note 0 ml @ 0 mls/hr UNSCH OTHER ; Start 02/14/17 at 18:00; Stop 02/14/17 at 19:02; Status DC Warfarin Sodium (Coumadin) 2.5 mg ONCE@1600 ONCE PO Last administered on 15:19; Start 02/15/17 at 16:00; Stop 02/15/17 at 16:01; Status DC Enoxaparin Sodium (Lovenox Inj) 100 mg Q12H SQ Last administered on 02/19/17 05:18; Start 02/15/17 at 16:30; Stop 02/19/17 at 16:47; Status DC Warfarin Sodium (Coumadin) 2.5 mg ONCE@1600 ONCE PO Last administered on 16:51; Start 02/16/17 at 16:00; Stop 02/16/17 at 16:01; Status DC Warfarin Sodium (Coumadin) 5 mg DAILY@1600 PO ; Start 02/19/17 at 16:00; Status Cancel Warfarin Sodium (Coumadin) 4 mg DAILY@1600 PO Last administered on 02/19/17 17 :23; Start 02/19/17 at 16:15; Stop 02/20/17 at 12:31; Status DC Warfarin Sodium (Coumadin) 10 mg DAILY@1600 PO ; Start 02/20/17 at 16:00; Status Cancel Warfarin Sodium (Coumadin) 8 mg DAILY@1600 PO Last administered on 02/23/17 15 :12; Start 02/21/17 at 16:00; Stop 02/24/17 at 12:14; Status DC Warfarin Sodium (Coumadin) 10 mg ONCE ONCE PO Last administered on 02/20/17 17:58; Start 02/20/17 at 16:00; Stop 02/20/17 at 16:01; Status DC Lactulose (Lactulose Liq) 30 ml TID G-TUBE Last administered on 04/06/17 11:26 ; Start 02/21/17 at 13:00; Stop 04/07/17 at 11:50; Status DC Warfarin Sodium (Coumadin) 2 mg ONCE@1600 ONCE PO Last administered on 15:34; Start 02/22/17 at 16:00; Stop 02/22/17 at 16:01; Status DC Furosemide (Lasix Inj) 20 mg Q8HR IV PUSH Last administered on 03/10/17 05:50; Start 02/23/17 at 14:00; Stop 03/10/17 at 09:51; Status DC Warfarin Sodium (Coumadin) 2 mg ONCE@1600 ONCE PO Last administered on 15:12; Start 02/23/17 at 16:00; Stop 02/23/17 at 16:01; Status DC Warfarin Sodium (Coumadin) 10 mg DAILY@16 PO Last administered on 03/07/17 16: 50; Start 02/24/17 at 16:00; Stop 03/08/17 at 14:05; Status DC Bacitracin (Bacitracin Oint Packet) 0.9 gm ONCE ONCE TOPICAL Last administered on 02/25/17 12:30; Start 02/25/17 at 09:00; Stop 02/25/17 at 09:01 ; Status DC Metolazone (Zaroxolyn) 5 mg DAILY PO Last administered on 03/08/17 08:56; Start 02/27/17 at 17:00; Stop 03/08/17 at 14:03; Status DC Sacubitril/ Valsartan (Entresto 24-26 Mg) 1 tab BID PO Last administered on 03/08 08:56; Start 03/02/17 at 09:00; Stop 03/08/17 at 14:06; Status DC Warfarin Sodium (Coumadin) 2.5 mg ONCE@1600 ONCE PO Last administered on 15:56; Start 03/01/17 at 16:00; Stop 03/01/17 at 16:01; Status DC Potassium Chloride (KCl Powder) 40 meq ONCE ONCE PO Last administered on 15:00; Start 03/06/17 at 15:00; Stop 03/06/17 at 15:01; Status DC Metolazone (Zaroxolyn) 5 mg DAILY PEG Last administered on 04/06/17 11:31; Start 03/09/17 at 09:00; Status Future Hold Warfarin Sodium (Coumadin) 10 mg DAILY@16 PEG Last administered on 03/24/17 16 :54; Start 03/08/17 at 16:00; Stop 03/28/17 at 12:27; Status DC Sacubitril/ Valsartan (Entresto 24-26 Mg) 1 tab BID PEG Last administered on 09:53; Start 03/08/17 at 21:00 Water (Free Water) VOLUME OF WATER: ( 300 ) ML Q8HR G-TUBE Last administered on 04/19/17 14:13; Start 03/09/17 at 14:00 Hyoscyamine Sulfate (Levsin Liq) 0.125 mg Q6H G-TUBE Last administered on 04/19 05:25; Start 03/10/17 at 18:00 Potassium Bicarb/ Potassium Chloride (K-Lyte Cl Eff) 25 meq ONCE ONCE PEG Last administered on 03/11/17 15:54; Start 03/11/17 at 15:00; Stop 03/11/17 at 15: 01; Status DC Potassium Chloride (KCl Powder) 40 meq ONCE ONCE PO Last administered on 11:33; Start 03/15/17 at 10:30; Stop 03/15/17 at 10:46; Status DC Furosemide (Lasix Inj) 40 mg ONCE ONCE IV PUSH Last administered on 03/15/17 11:33; Start 03/15/17 at 10:30; Stop 03/15/17 at 10:46; Status DC Potassium Chloride (KCl Powder) 20 meq ONCE ONCE PO Last administered on 14:49; Start 03/15/17 at 14:00; Stop 03/15/17 at 14:01; Status DC Levetriacetam (Keppra) 1,000 mg Q12HR PO Last administered on 03/20/17 23:05; Start 03/15/17 at 21:00; Stop 03/21/17 at 13:07; Status DC Furosemide (Lasix Inj) 20 mg DAILY IV PUSH Last administered on 04/19/17 09:54 ; Start 03/16/17 at 11:30 Potassium Chloride (KCl Powder) 20 meq DAILY NG Last administered on 04/06/17 09:00; Start 03/17/17 at 09:00; Stop 04/07/17 at 11:50; Status DC Dextrose (D50w (Vial) Inj) 50 ml UNSCH PRN IV HYPOGLYCEMIA-SEE COMMENTS; Start 03/17/17 at 07:45; Stop 03/20/17 at 07:36; Status DC Glucagon (Glucagon Inj) 1 mg UNSCH PRN OTHER HYPOGLYCEMIA-SEE COMMENTS; Start 03/17/17 at 07:45; Stop 03/20/17 at 07:36; Status DC Insulin Aspart (NovoLOG SUPPLEMENTAL SCALE) 1 ACHS SLIDING SCALE SQ Last administered on 03/17/17 15:30; Start 03/17/17 at 11:00; Stop 03/19/17 at 11:39 ; Status DC Warfarin Sodium (Coumadin) 2.5 mg ONCE PEG Last administered on 03/18/17 15:30 ; Start 03/18/17 at 16:00; Stop 03/18/17 at 23:59; Status DC Warfarin Sodium (Coumadin) 2.5 mg DAILY@1600 PEG Last administered on 15:06; Start 03/19/17 at 16:00; Stop 03/20/17 at 10:03; Status DC Patient Medication Teaching (Coumadin Booklet) 1 ONCE ONCE OTHER Last administered on 03/19/17 15:06; Start 03/19/17 at 16:00; Stop 03/19/17 at 16:01 ; Status DC Insulin Aspart (NovoLOG SUPPLEMENTAL SCALE) 1 BID SQ ; Start 03/19/17 at 21:00; Stop 03/20/17 at 12:44; Status DC Albuterol/ Ipratropium (Duoneb Neb) 1 ampule Q6HR NEB NEB Last administered on 03/21/17 03:23; Start 03/20/17 at 16:00; Stop 03/21/17 at 08:08; Status DC Insulin Aspart (NovoLOG SUPPLEMENTAL SCALE) 1 BID SQ Last administered on 22:04; Start 03/20/17 at 21:00 Ciprofloxacin/ Dextrose 200 ml @ 200 mls/hr Q12H IV Last administered on 13:15; Start 03/20/17 at 13:00; Stop 03/22/17 at 14:40; Status DC Metoprolol Tartrate (Lopressor Inj) 5 mg ONCE ONCE IV PUSH Last administered on 03/21/17 02:21; Start 03/21/17 at 02:00; Stop 03/21/17 at 02:01; Status DC Metoprolol Tartrate (Lopressor Inj) 5 mg ONCE PRN IV PUSH HR sustained > 130 Last administered on 03/21/17 03:04; Start 03/21/17 at 02:30; Stop 03/21/17 at 07:59; Status DC Metoprolol Tartrate (Lopressor Inj) 5 mg ONCE ONCE IV PUSH ; Start 03/21/17 at 07:00; Stop 03/21/17 at 07:01; Status DC Metoprolol Tartrate (Lopressor) 50 mg Q12HR G-TUBE Last administered on 10:19; Start 03/21/17 at 09:00; Stop 03/25/17 at 17:48; Status DC Diltiazem HCl 125 mg/Sodium Chloride 125 ml @ 0 mls/hr TITRATE IV Last administered on 03/21/17 09:25; Start 03/21/17 at 09:00; Stop 03/25/17 at 16:54 ; Status DC Albuterol Sulfate (Albuterol Neb) 0.63 mg Q4HR NEB PRN NEB SHORTNESS OF BREATH ; Start 03/21/17 at 09:15 Albuterol Sulfate (Albuterol Neb) 0.63 mg QID NEB NEB Last administered on 11:23; Start 03/21/17 at 12:00; Stop 03/25/17 at 12:00; Status DC Ipratropium [place] (Atrovent Neb) 0.5 mg QID NEB NEB Last administered on 11:18; Start 03/21/17 at 12:00 Levetriacetam (Keppra Liq) 1,000 mg Q12HR NG Last administered on 04/07/17 08 :44; Start 03/21/17 at 21:00; Stop 04/07/17 at 11:50; Status DC Ceftriaxone Sodium 2000 mg/ Sodium Chloride 100 ml @ 200 mls/hr Q24H IV Last administered on 04/04/17 17:35; Start 03/24/17 at 18:00; Stop 04/05/17 at 17:59 ; Status DC Warfarin Sodium (Coumadin) 5 mg ONCE ONCE PO Last administered on 03/25/17 16 :25; Start 03/25/17 at 16:00; Stop 03/25/17 at 16:01; Status DC Metoprolol Tartrate (Lopressor) 25 mg ONCE ONCE G-TUBE Last administered on 18:04; Start 03/25/17 at 17:00; Stop 03/25/17 at 17:01; Status DC Metoprolol Tartrate (Lopressor) 75 mg BID G-TUBE Last administered on 09:59; Start 03/25/17 at 21:00; Stop 03/27/17 at 13:08; Status DC Warfarin Sodium (Coumadin) 5 mg ONCE PO Last administered on 03/26/17 16:34; Start 03/26/17 at 16:00; Stop 03/26/17 at 23:59; Status DC Adenosine (Adenocard Inj) 6 mg STK-MED ONCE .ROUTE ; Start 03/27/17 at 10:57; Stop 03/27/17 at 12:14; Status DC Adenosine (Adenocard Inj) 6 mg STK-MED ONCE .ROUTE ; Start 03/27/17 at 11:10; Stop 03/27/17 at 12:15; Status DC Adenosine (Adenocard Inj) 6 mg STK-MED ONCE .ROUTE ; Start 03/27/17 at 11:10; Stop 03/27/17 at 12:15; Status DC Metoprolol Tartrate (Lopressor) 50 mg Q6HR G-TUBE Last administered on 12:01; Start 03/27/17 at 18:00 Warfarin Sodium (Coumadin) 7.5 mg ONCE ONCE PO Last administered on 03/27/17 17:13; Start 03/27/17 at 16:00; Stop 03/27/17 at 16:01; Status DC Warfarin Sodium (Coumadin) 7.5 mg DAILY@1600 PO Last administered on 04/04/17 17:36; Start 03/28/17 at 16:00; Stop 04/05/17 at 14:27; Status DC Warfarin Sodium (Coumadin) 1 mg ONCE@1600 ONCE PO Last administered on 17:31; Start 04/03/17 at 16:00; Stop 04/03/17 at 16:01; Status DC Enoxaparin Sodium (Lovenox Inj) 40 mg ONCE ONCE SQ Last administered on 08:00; Start 04/04/17 at 08:00; Stop 04/04/17 at 08:10; Status DC Warfarin Sodium (Coumadin) 1 mg ONCE ONCE PO Last administered on 04/04/17 17 :36; Start 04/04/17 at 16:00; Stop 04/04/17 at 16:01; Status DC Pharmacy Profile Note 0 ml @ 0 mls/hr UNSCH OTHER ; Start 04/04/17 at 11:00; Stop 04/05/17 at 14:27; Status DC Warfarin Sodium (Coumadin) 2.5 mg ONCE@1600 ONCE PO Last administered on 16:00; Start 04/05/17 at 16:00; Stop 04/05/17 at 16:01; Status DC Warfarin Sodium (Coumadin) 7.5 mg DAILY@16 PO Last administered on 04/06/17 16 :42; Start 04/05/17 at 16:00; Stop 04/07/17 at 11:50; Status DC Pharmacy Profile Note 0 ml @ 0 mls/hr UNSCH OTHER ; Start 04/05/17 at 14:45 Enoxaparin Sodium (Lovenox Inj) 40 mg ONCE ONCE SQ Last administered on 17:44; Start 04/05/17 at 17:00; Stop 04/05/17 at 17:01; Status DC Enoxaparin Sodium (Lovenox Inj) 40 mg ONCE ONCE SQ Last administered on 13:15; Start 04/06/17 at 13:15; Stop 04/06/17 at 13:16; Status DC Bromocriptine Mesylate (Parlodel) 2.5 mg Q12HR PEG Last administered on 09:53; Start 04/07/17 at 21:00 Famotidine (Pepcid) 20 mg BID PEG Last administered on 04/19/17 09:52; Start 04/07/17 at 21:00 Folic Acid (Folate) 1 mg DAILY PEG Last administered on 04/19/17 09:54; Start 04/08/17 at 09:00 Lactulose (Lactulose Liq) 30 ml BID G-TUBE Last administered on 04/19/17 09:52 ; Start 04/07/17 at 21:00 Levetriacetam (Keppra Liq) 1,000 mg Q12HR PEG Last administered on 04/19/17 09:54; Start 04/07/17 at 21:00 Potassium Chloride (KCl Powder) 20 meq DAILY PEG Last administered on 09:53; Start 04/08/17 at 09:00 Warfarin Sodium (Coumadin) 7.5 mg DAILY@16 PEG Last administered on 04/07/17 16:28; Start 04/07/17 at 16:00; Stop 04/08/17 at 11:21; Status DC Patient Medication Teaching (Coumadin Booklet) 1 ONCE ONCE OTHER Last administered on 04/07/17 16:27; Start 04/07/17 at 13:45; Stop 04/07/17 at 13:46 ; Status DC Collagenase (Santyl Oint) 1 applic DAILY TOPICAL Last administered on 10:07; Start 04/07/17 at 16:30 Warfarin Sodium (Coumadin) 7.5 mg DAILY@16 PEG Last administered on 04/17/17 17:07; Start 04/09/17 at 16:00; Stop 04/18/17 at 16:02; Status DC Warfarin Sodium (Coumadin) 10 mg ONCE@1600 ONCE PO Last administered on 16:12; Start 04/08/17 at 16:00; Stop 04/08/17 at 16:01; Status DC Warfarin Sodium (Coumadin) 2.5 mg ONCE ONCE PO Last administered on 04/09/17 17:00; Start 04/09/17 at 16:30; Stop 04/09/17 at 16:31; Status DC Warfarin Sodium (Coumadin) 3 mg ONCE@1600 ONCE PO Last administered on 15:49; Start 04/10/17 at 16:00; Stop 04/10/17 at 16:01; Status DC Warfarin Sodium (Coumadin) 2.5 mg ONCE ONCE PEG Last administered on 04/11/17 17:35; Start 04/11/17 at 17:15; Stop 04/11/17 at 17:16; Status DC Enoxaparin Sodium (Lovenox Inj) 40 mg ONCE ONCE SQ Last administered on 22:41; Start 04/12/17 at 21:00; Stop 04/12/17 at 21:01; Status DC Warfarin Sodium (Coumadin) 2.5 mg ONCE ONCE PEG Last administered on 04/13/17 17:42; Start 04/13/17 at 16:00; Stop 04/13/17 at 16:02; Status DC Enoxaparin Sodium (Lovenox Inj) 40 mg ONCE ONCE SQ Last administered on 17:49; Start 04/13/17 at 18:00; Stop 04/13/17 at 18:01; Status DC Warfarin Sodium (Coumadin) 2.5 mg ONCE ONCE PEG Last administered on 04/14/17 16:00; Start 04/14/17 at 16:00; Stop 04/14/17 at 16:01; Status DC Enoxaparin Sodium (Lovenox Inj) 40 mg ONCE ONCE SQ Last administered on 15:45; Start 04/14/17 at 15:45; Stop 04/14/17 at 15:50; Status DC Enoxaparin Sodium (Lovenox Inj) 40 mg ONCE ONCE SQ Last administered on 11:03; Start 04/15/17 at 08:30; Stop 04/15/17 at 08:31; Status DC Warfarin Sodium (Coumadin) 5 mg ONCE ONCE PO ; Start 04/15/17 at 16:00; Stop 04/15/17 at 16:01; Status DC Enoxaparin Sodium (Lovenox Inj) 40 mg ONCE ONCE SQ Last administered on 10:27; Start 04/16/17 at 08:00; Stop 04/16/17 at 08:01; Status DC Enoxaparin Sodium (Lovenox Inj) 50 mg ONCE ONCE SQ ; Start 04/16/17 at 10:30; Stop 04/16/17 at 10:31; Status DC Enoxaparin Sodium (Lovenox Inj) 90 mg ONCE ONCE SQ Last administered on 21:21; Start 04/16/17 at 20:00; Stop 04/16/17 at 20:01; Status DC Warfarin Sodium (Coumadin) 5 mg ONCE ONCE PO Last administered on 04/16/17 16: 40; Start 04/16/17 at 16:00; Stop 04/16/17 at 16:01; Status DC Warfarin Sodium (Coumadin) 5 mg ONCE ONCE PO Last administered on 04/17/17 13 :35; Start 04/17/17 at 11:15; Stop 04/17/17 at 11:16; Status DC Warfarin Sodium (Coumadin) 10 mg DAILY@1600 PO ; Start 04/18/17 at 16:00; Status Cancel Warfarin Sodium (Coumadin) 12 mg DAILY@1600 PO ; Start 04/18/17 at 16:00; Status Cancel Warfarin Sodium (Coumadin) 10 mg DAILY@1600 PO ; Start 04/18/17 at 16:00; Status Cancel Warfarin Sodium (Coumadin) 4 mg DAILY@1600 PO ; Start 04/18/17 at 16:00; Status Cancel Warfarin Sodium (Coumadin) 10 mg DAILY@1600 PEG Last administered on 04/18/17 18:00; Start 04/18/17 at 16:15 Warfarin Sodium (Coumadin) 4 mg DAILY@1600 PEG Last administered on 04/18/17 18:00; Start 04/18/17 at 16:15; Stop 04/19/17 at 10:50; Status DC Warfarin Sodium (Coumadin) 2.5 mg DAILY@1600 PEG ; Start 04/19/17 at 16:00 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 Status: Acute (2) Seizure ICD Code: R56.9 - Unspecified convulsions Status: Acute (3) CVA (cerebral vascular accident) ICD Code: I63.9 - Cerebral infarction, unspecified Status: Acute (4) Respiratory failure, acute ICD Code: J96.00 - Acute respiratory failure, unspecified whether with hypoxia or hypercapnia Status: Acute (5) COPD (chronic obstructive pulmonary disease) ICD Code: J44.9 - Chronic obstructive pulmonary disease, unspecified Status: Chronic (6) Acute hypernatremia ICD Code: E87.0 - Hyperosmolality and hypernatremia Status: Resolved (7) Microcytic anemia ICD Code: D50.9 - Iron deficiency anemia, unspecified Assessment and Plan Ms. Rivas is a 66-year-old female with a history of stroke who was admitted to the [facility] on 11/04/2016 due to difficulty getting her thoughts together. She was found to have multifocal nonhemorrhagic infarctions in the frontal and parietal regions. She was initially awake and following commands with weakness of RLE and some aphasia. She was transferred to [facility] where he had an cerebral angiogram consistent with moyamoya. There were plans to perform extracranial/intracranial bypass. However, she had a seizure and ended up being intubated for status epilepticus 11/09 or 11/10. She was found to have a new right frontal infarct area and she was started on Dilantin and Keppra and it was felt that she would not be a candidate for intervention. She has since undergone PEG placement. Apparently family requested transfer back to [place] because they live locally and wanted her closer to home. Patient remained under critical care medicine until 12/24/2016. Viridans strep bacteremia - resolved - ID following. Per ID, sputum cx with GNR and staph aureus ? colonization. Urine with Kleb pneumo and E Coli ? colonization - Repeat blood cx 03/23 shows no growth in 5 days. 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 Hyponatremia - improved Mixed systolic and diastolic heart failure, stable - echocardiogram 02/02/17 shows EF 35-40%, grade 3 diastolic dysfunction, severe tricuspid regurgitation, severe pulmonary HTN and severe mitral valve regurgitation. - continue Lasix 20mg daily - continue on Entresto - monitor electrolytes and renal function - monitor for s/sxs of fluid overload Chronic respiratory failure COPD Multilobar pneumonia, resolved - Pulmonary medicine following, appreciate assistance - Status post tracheostomy on 11/24/2016. Currently on T piece. Continue on Levsin prn for secretions. - completed antibiotic course with Tobramycin, course ended on 01/20/17. - Continue DuoNebs when necessary - supplement O2 to keep O2 sats > 90% Atrial fibrillation plus recent SVT - Cardiology signed off, stable - rate controlled - Continue Metoprolol 25mg q12hr and Coumadin - confirmed with Dr. Flores patient to continue Coumadin WITHOUT ASA. - INR subtherapeutic 2.1 today. Being managed by pharmacy. Anasarca - Continue Lasix 20 mg IV daily Dysphagia Hypoalbuminemia - s/p PEG placement - continue Jevity 1.5 through PEG tube with Corby supplementation. - Continue TF continuous 60ml per hour New onset DM - HgbA1c 6.5 Sacral/Coccyx wound - Specialty bed ordered, continue - Wound care following - per theirs and plastics recs - Daily cleansing the wound with gauze and Dakin's solutions, then applying a nickel-thick portion of santyl to the entire wound bed, then packing with Dakin's soaked gauze. This should be covered with ABD and secured with tape. Anemia, microcytic, hypochromic - stable - iron studies-iron 33, TIBC 307, % sat 10.8, ferritin 346. Continue iron supplementation. - stool hemoccult negative - monitor intermittently GI Prophylaxis: Pepcid. DVT prophylaxis: SCDs. Coumadin. Full code. Discharge Planning Difficult placement. Lis Alan MD Apr 19, 2017 14:53
[2017-04-19] MEDS ORDERED: WARFARIN SOD 2.5 MG TAB PEG SCH (16:00)
[2017-04-19] MEDS: WARFARIN SOD 10 MG TAB PEG SCH (17:36)
[2017-04-20] VITALS (9 sets, daily range): BP systolic 107–142; BP diastolic 52–65; PULSE 78–90; RESP 18–30; TEMP 97.3–98.4; O2SAT 97–100
[2017-04-20] MEDS: levETIRAcetam 500 MG/5 ML UDC PEG SCH ×3 (00:14→22:20)
[2017-04-20] MEDS: CHLORHEXIDINE GLUCONATE 2 % 1 PACK (2 CLOTHS) TOP SCH (04:00)
[2017-04-20] MEDS: HYOSCYAMINE SOLN 0.125 MG/ML 15 ML BTL G-TUBE SCH ×3 (06:00→17:53)
[2017-04-20] MEDS: FREE WATER G-TUBE SCH ×3 (06:28→22:23)
[2017-04-20] MEDS: METOPROLOL TARTRATE 25 MG TAB G-TUBE SCH ×3 (06:29→17:53)
[2017-04-20] MEDS: CHLORHEXIDINE 0.12% (ORAL KIT) 15 ML CUP MT SCH ×2 (07:45→22:22)
[2017-04-20] MEDS: RESP: IPRATROPIUM 0.5 MG/2.5 ML NEB NEB SCH ×4 (08:57→19:30)
[2017-04-20] MEDS: INSULIN ASPART SUPPLEMENTAL SCALE SQ SCH ×2 (09:00→21:00)
[2017-04-20] MEDS: LACTULOSE SYRUP 20 GM/30 ML CUP G-TUBE SCH ×2 (09:00→22:20)
[2017-04-20] MEDS: POVIDONE IODINE 10% OINT 30 GM TUBE TOPICAL SCH (09:00)
[2017-04-20] MEDS: SENNOSIDES SYRUP 8.8 MG/5 ML CUP G-TUBE SCH ×2 (09:00→22:20)
[2017-04-20] MEDS: SACUBITRIL/VALSARTAN 24 MG-26 MG TAB PEG SCH ×2 (10:16→22:21)
[2017-04-20] MEDS: BROMOCRIPTINE MESYLATE 2.5 MG TAB PEG SCH ×2 (10:16→22:20)
[2017-04-20] MEDS: ATORVASTATIN 40 MG TAB G-TUBE SCH (10:16)
[2017-04-20] MEDS: FERROUS SULFATE 300 MG /5ML UDC PEG SCH ×2 (10:16→22:20)
[2017-04-20] MEDS: JUVEN POWDER 1 PACK G-TUBE SCH ×2 (10:16→22:22)
[2017-04-20] MEDS: FOLIC ACID 1 MG TAB PEG SCH (10:17)
[2017-04-20] MEDS: ASCORBIC ACID 500 MG TAB PEG SCH ×2 (10:17→22:21)
[2017-04-20] MEDS: FAMOTIDINE 20 MG TAB PEG SCH ×2 (10:17→22:20)
[2017-04-20] MEDS: FUROSEMIDE 20 MG/2 ML VIAL IV PUSH SCH (10:17)
[2017-04-20] MEDS: carBAMazepine SUSP 200 MG/10 ML UDC PEG SCH ×2 (10:17→22:19)
[2017-04-20] MEDS: SODIUM CHLORIDE 0.9% FLUSH 10 ML FLUSH IV FLUSH SCH ×2 (10:18→22:22)
[2017-04-20] MEDS: SODIUM HYPOCHLORITE 0.25% 500 ML BTL TOPICAL SCH (10:18)
[2017-04-20] MEDS: COLLAGENASE OINT 30 GM TUBE TOPICAL SCH (10:18)
[2017-04-20] MEDS: POTASSIUM CHLORIDE 20 MEQ PWD PACKET PEG SCH (10:18)
[2017-04-20 10:19] LABS: INTERNATIONAL NORMALIZED RATIO 2.4 RATIO; PROTHROMBIN TIME - PATIENT 28.1 SEC (9.8-11.6)
--- NOTE | 2017-04-20 14:39 | HHI.PR ---
Subjective Remarks Follow up CVA. Patient seen and examined. Does not follow commands. Occasionally tracking with eyes. Upper extremity posturing. Sats 100%. Appears comfortable. Afebrile. No new acute events overnight. Objective Vitals Vital Signs Date Time Temp Pulse Resp B/P (MAP) Pulse Ox O2 Delivery O2 Flow Rate FiO2 04/20/17 12:33 99 T-Piece 4.00 28 04/20/17 12:00 97.3 80 18 107/58 (74) 97 04/20/17 10:32 78 04/20/17 10:32 98 T-Piece 4.00 28 04/20/17 09:04 100 T-piece 28 04/20/17 09:04 100 T-piece 28 04/20/17 08:00 98.4 79 18 111/52 (71) 97 04/20/17 05:28 98.3 84 30 112/54 (73) 98 04/19/17 23:50 99.4 90 18 132/63 (86) 100 04/19/17 21:28 98.9 87 26 130/59 (82) 100 04/19/17 20:00 76 04/19/17 19:15 98 T-Piece 4.00 28 04/19/17 17:57 98 T-Piece 4.00 28 04/19/17 16:08 98.3 85 20 130/62 (84) 99 04/19/17 15:45 100 T-piece 5.00 28 04/19/17 15:45 100 T-piece 5.00 28 I/O 04/19/17 04/19/17 04/19/17 04/20/17 04/20/17 04/20/17 07:00 15:00 23:00 07:00 15:00 23:00 Intake Total 720 ml 774 ml 824 ml Output Total 350 ml 1300 ml 400 ml Balance 370 ml -526 ml 424 ml Intake Oral 0 ml 0 ml 0 ml Tube Feeding 720 ml 474 ml 224 ml Other 300 ml 600 ml Output Urine Total 350 ml 1300 ml 400 ml # Bowel Movements 2 3 1 Imaging Last Impressions Chest X-Ray 03/20/17 0000 Signed Impressions: Service Date/Time: Monday, March 20, 2017 11:37 - CONCLUSION: Stable appearance with no acute cardiopulmonary disease. Lenny Kerns MD Abdomen X-Ray 02/11/17 0000 Signed Impressions: Service Date/Time: Saturday, February 11, 2017 17:52 - CONCLUSION: Minimal colonic distention. Kenneth Frost MD FACR Catheter Change 02/10/17 0000 Signed Impressions: Service Date/Time: February 13:47 - CONCLUSION: Uncomplicated fluoroscopic guided gastrostomy tube replacement. Positioning confirmed. The tube can be used immediately. Nghia Pacheco MD Lower Extremity Ultrasound 02/01/17 0000 Signed Impressions: Service Date/Time: Wednesday, February 01, 2017 13:23 - CONCLUSION: Normal examination. 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 Sami Mccarthy MD Objective Remarks GENERAL: Well-nourished, well-developed female patient lying in bed in NAD, t- collar in place. bedside O2 sats 100%. SKIN: Warm and dry. Mild anasarca. HEENT: Normocephalic. Pupils equal and round. No scleral icterus. No injection or drainage. No nasal bleeding or discharge. Mucous membranes pink and moist. NECK: Supple. Trachea midline. CARDIOVASCULAR: Regular rate and rhythm. S1, S2 noted. No murmur appreciated. RESPIRATORY: No accessory muscle use. Coarse breath sounds noted. Breath sounds equal bilaterally. GASTROINTESTINAL: Abdomen soft, non-tender, nondistended. Normoactive bowel sounds x4. MUSCULOSKELETAL: No obvious deformities. Extremities without clubbing, cyanosis. NEUROLOGICAL: Does not track with eyes. Occasionally opens to vocal and noxious stimuli. No spontaneous movement in upper and lower extremities. Procedures PEG 11/24/2016 Percutaneous tracheostomy. 11/18/2016 Moderate encephalopathy with suggestion of left temporal region cortical irritability. No active seizures. Clinical correlation. Echocardiogram Severe dilated left ventricle. Wall thickness is normal. The left ventricular systolic function is moderately reduced with an estimated ejection fraction in the range of 35-40%. Doppler parameters are consistent with a restrictive left ventricular filling pattern indicative of decreased left ventricular diastolic compliance and increase left atrial pressure (grade 3 diastolic dysfunction). There is severe tricuspid regurgitation. There is severe pulmonary hypertension present ( > 70 mmHg). Severe mitral valve regurgitation. 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 Status: Acute (2) Seizure ICD Code: R56.9 - Unspecified convulsions Status: Acute (3) CVA (cerebral vascular accident) ICD Code: I63.9 - Cerebral infarction, unspecified Status: Acute (4) Respiratory failure, acute ICD Code: J96.00 - Acute respiratory failure, unspecified whether with hypoxia or hypercapnia Status: Acute (5) COPD (chronic obstructive pulmonary disease) ICD Code: J44.9 - Chronic obstructive pulmonary disease, unspecified Status: Chronic (6) Acute hypernatremia ICD Code: E87.0 - Hyperosmolality and hypernatremia Status: Resolved (7) Microcytic anemia ICD Code: D50.9 - Iron deficiency anemia, unspecified Assessment and Plan Ms. Rivas is a 66-year-old female with a history of stroke who was admitted to the [facility] on 11/04/2016 due to difficulty getting her thoughts together. She was found to have multifocal nonhemorrhagic infarctions in the frontal and parietal regions. She was initially awake and following commands with weakness of RLE and some aphasia. She was transferred to [facility] where he had an cerebral angiogram consistent with moyamoya. There were plans to perform extracranial/intracranial bypass. However, she had a seizure and ended up being intubated for status epilepticus 11/09 or 11/10. She was found to have a new right frontal infarct area and she was started on Dilantin and Keppra and it was felt that she would not be a candidate for intervention. She has since undergone PEG placement. Apparently family requested transfer back to [place] because they live locally and wanted her closer to home. Patient remained under critical care medicine until 12/24/2016. Viridans strep bacteremia, resolved - Per ID, sputum cx with GNR and staph aureus ? colonization. Urine with Kleb pneumo and E Coli ? colonization - Repeat blood cx 03/23 shows no growth in 5 days. 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 at [facility] October 2016 Seizure disorder - Continue Keppra 1000mg BID - Continue Tegretol 200mg q 12h - Follow for seizure activity - no recent seizure activity noted - Continue Bromocriptine - Keppra level 25.3 04/05 - Tegretol level 7.1 03/31 Hyperammonemia - continue Lactulose 30mg BID - continue to monitor ammonia level as indicated - repeat level ordered for 04/12, level was 17. Hyponatremia, improved Mixed systolic and diastolic heart failure, stable - echocardiogram 02/02/17 shows EF 35-40%, grade 3 diastolic dysfunction, severe tricuspid regurgitation, severe pulmonary HTN and severe mitral valve regurgitation. - continue Lasix 20mg daily - continue on Entresto - monitor electrolytes and renal function - monitor for s/sxs of fluid overload Chronic respiratory failure COPD Multilobar pneumonia, resolved - Pulmonary medicine following, appreciate assistance - Status post tracheostomy on 11/24/2016. Currently on T piece. Continue on Levsin prn for secretions. - completed antibiotic course with Tobramycin, course ended on 01/20/17. - Continue DuoNebs when necessary - supplement O2 to keep O2 sats > 90% Atrial fibrillation plus recent SVT - Cardiology signed off, stable - rate controlled - Continue Metoprolol 50mg q6hr and Coumadin - confirmed with Dr. Flores patient to continue Coumadin WITHOUT ASA. - INR subtherapeutic 2.4 today. Being managed by pharmacy. Anasarca - Continue Lasix 20 mg IV daily Dysphagia Hypoalbuminemia - s/p PEG placement - continue Jevity 1.5 through PEG tube with Corby supplementation. - Continue TF continuous 60ml per hour New onset DM - HgbA1c 6.5. ACCU check BID per protocol. Sacral/Coccyx wound - Specialty bed ordered, continue - Wound care following - per theirs and plastics recs - Daily cleansing the wound with gauze and Dakin's solutions, then applying a nickel-thick portion of santyl to the entire wound bed, then packing with Dakin's soaked gauze. This should be covered with ABD and secured with tape. Anemia, microcytic, hypochromic, stable. - iron studies-iron 33, TIBC 307, % sat 10.8, ferritin 346. Continue iron supplementation. - stool hemoccult negative - monitor intermittently GI Prophylaxis: Pepcid. DVT prophylaxis: SCDs. Coumadin. Full code. Discharge Planning Difficult placement. Jackie Walsh Apr 20, 2017 14:39
[2017-04-20] MEDS ORDERED: WARFARIN SOD 4 MG TAB PEG SCH (16:00)
--- NOTE | 2017-04-20 19:01 | HHI.PR ---
Subjective Remarks 66 YOWF with Rf, s/p trach H/O CVA,Arango Arango disease On trach collar Mod amount of trach secretions. no fever Objective Vital Signs Vital Signs Date Time Temp Pulse Resp B/P (MAP) Pulse Ox O2 Delivery O2 Flow Rate FiO2 04/20/17 16:00 98.0 90 18 142/63 (89) 99 04/20/17 12:33 99 T-Piece 4.00 28 04/20/17 12:00 97.3 80 18 107/58 (74) 97 04/20/17 10:32 78 04/20/17 10:32 98 T-Piece 4.00 28 04/20/17 09:04 100 T-piece 28 04/20/17 09:04 100 T-piece 28 04/20/17 08:00 98.4 79 18 111/52 (71) 97 04/20/17 05:28 98.3 84 30 112/54 (73) 98 04/19/17 23:50 99.4 90 18 132/63 (86) 100 04/19/17 21:28 98.9 87 26 130/59 (82) 100 04/19/17 20:00 76 04/19/17 19:15 98 T-Piece 4.00 28 I/O 04/19/17 04/19/17 04/19/17 04/20/17 04/20/17 04/20/17 07:00 15:00 23:00 07:00 15:00 23:00 Intake Total 720 ml 774 ml 824 ml 738 ml Output Total 350 ml 1300 ml 400 ml 1400 ml Balance 370 ml -526 ml 424 ml -662 ml Intake Oral 0 ml 0 ml 0 ml Tube Feeding 720 ml 474 ml 224 ml 438 ml Other 300 ml 600 ml 300 ml Output Urine Total 350 ml 1300 ml 400 ml 1400 ml # Bowel Movements 2 3 1 0 Objective Remarks GENERAL: MBMN WF, on Trach collar SKIN: Warm and dry. HEAD: Normocephalic. EYES: No scleral icterus. No injection or drainage. NECK: Supple, trachea midline. No JVD or lymphadenopathy. has trach CARDIOVASCULAR: Regular rate and rhythm without murmurs, gallops, or rubs. RESPIRATORY: Breath sounds equal bilaterally. No accessory muscle use. GASTROINTESTINAL: Abdomen soft, non-tender, nondistended. has PEG MUSCULOSKELETAL: No cyanosis, or edema. BACK: Nontender without obvious deformity. No CVA tenderness. A/P Assessment and Plan RF, S/P Trach CVA Arango arango disease CAD COPD SZ disorder PLAN: Aerosol nebs Cont trach collar supplement 02, keep sat >90%. TF Cont Levsin.prn Suction prn Vernon Marx MD Apr 20, 2017 19:01
[2017-04-21] VITALS (9 sets, daily range): BP systolic 108–135; BP diastolic 53–75; PULSE 82–100; RESP 16–22; TEMP 98.3–99.6; O2SAT 95–100
[2017-04-21] MEDS: METOPROLOL TARTRATE 25 MG TAB G-TUBE SCH ×4 (01:20→17:43)
[2017-04-21] MEDS: HYOSCYAMINE SOLN 0.125 MG/ML 15 ML BTL G-TUBE SCH ×4 (01:20→17:43)
[2017-04-21] MEDS: CHLORHEXIDINE GLUCONATE 2 % 1 PACK (2 CLOTHS) TOP SCH (04:00)
[2017-04-21] MEDS: FREE WATER G-TUBE SCH ×3 (06:03→22:20)
[2017-04-21] MEDS: INSULIN ASPART SUPPLEMENTAL SCALE SQ SCH ×2 (08:08→21:00)
[2017-04-21] MEDS: RESP: IPRATROPIUM 0.5 MG/2.5 ML NEB NEB SCH ×4 (08:23→20:31)
--- NOTE | 2017-04-21 09:24 | HHI.PR ---
Subjective Remarks Follow up CVA. Patient seen and examined. PITCH GATHERER at bedside bathing patient. Patient on t-piece 28%. Sats 99% on bedside monitor. Sacral wound assessed, dressing removed, moderate amount of serosanguineous drainage, malodorous, wound edges blanching. Denies any new acute events overnight. VSS. Afebrile. Tolerating TF. Objective Vitals Vital Signs Date Time Temp Pulse Resp B/P (MAP) Pulse Ox O2 Delivery O2 Flow Rate FiO2 04/21/17 08:23 100 T-piece 28 04/21/17 08:23 100 T-piece 28 04/21/17 04:50 98.3 88 16 135/61 (85) 98 04/20/17 23:50 98.1 87 18 122/54 (76) 98 04/20/17 21:50 98.1 89 18 132/65 (87) 99 04/20/17 20:00 100 Trach Collar 4.00 28 T-Piece Humidified 04/20/17 19:31 100 Trach Collar 5.00 28 04/20/17 16:00 98.0 90 18 142/63 (89) 99 04/20/17 12:33 99 T-Piece 4.00 28 04/20/17 12:00 97.3 80 18 107/58 (74) 97 04/20/17 10:32 78 04/20/17 10:32 98 T-Piece 4.00 28 I/O 04/20/17 04/20/17 04/20/17 04/21/17 04/21/17 04/21/17 07:00 15:00 23:00 07:00 15:00 23:00 Intake Total 824 ml 738 ml 0 ml Output Total 400 ml 1400 ml 550 ml Balance 424 ml -662 ml -550 ml Intake Oral 0 ml 0 ml Tube Feeding 224 ml 438 ml Other 600 ml 300 ml Output Urine Total 400 ml 1400 ml 550 ml # Bowel Movements 1 0 0 Imaging Last Impressions Chest X-Ray 03/20/17 0000 Signed Impressions: Service Date/Time: Monday, March 20, 2017 11:37 - CONCLUSION: Stable appearance with no acute cardiopulmonary disease. Lenny Kerns MD Abdomen X-Ray 02/11/17 0000 Signed Impressions: Service Date/Time: Saturday, February 11, 2017 17:52 - CONCLUSION: Minimal colonic distention. Kenneth Frost MD FACR Catheter Change 02/10/17 0000 Signed Impressions: Service Date/Time: February 13:47 - CONCLUSION: Uncomplicated fluoroscopic guided gastrostomy tube replacement. Positioning confirmed. The tube can be used immediately. Nghia Pacheco MD Lower Extremity Ultrasound 02/01/17 0000 Signed Impressions: Service Date/Time: Wednesday, February 01, 2017 13:23 - CONCLUSION: Normal examination. 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 Sami Mccarthy MD Objective Remarks GENERAL: Well-nourished, well-developed female patient lying in bed in NAD, t- collar in place. bedside O2 sats 100%. SKIN: Warm and dry. Mild anasarca. HEENT: Normocephalic. Pupils equal and round. No scleral icterus. No injection or drainage. No nasal bleeding or discharge. Mucous membranes pink and moist. NECK: Supple. Trachea midline. CARDIOVASCULAR: Regular rate and rhythm. S1, S2 noted. No murmur appreciated. RESPIRATORY: No accessory muscle use. Coarse breath sounds noted. Breath sounds equal bilaterally. GASTROINTESTINAL: Abdomen soft, non-tender, nondistended. Normoactive bowel sounds x4. MUSCULOSKELETAL: No obvious deformities. Extremities without clubbing, cyanosis. NEUROLOGICAL: Does not track with eyes. Occasionally opens to vocal and noxious stimuli. No spontaneous movement in upper and lower extremities. Procedures PEG 11/24/2016 Percutaneous tracheostomy. 11/18/2016 Moderate encephalopathy with suggestion of left temporal region cortical irritability. No active seizures. Clinical correlation. Echocardiogram Severe dilated left ventricle. Wall thickness is normal. The left ventricular systolic function is moderately reduced with an estimated ejection fraction in the range of 35-40%. Doppler parameters are consistent with a restrictive left ventricular filling pattern indicative of decreased left ventricular diastolic compliance and increase left atrial pressure (grade 3 diastolic dysfunction). There is severe tricuspid regurgitation. There is severe pulmonary hypertension present ( > 70 mmHg). Severe mitral valve regurgitation. 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 Status: Acute (2) Seizure ICD Code: R56.9 - Unspecified convulsions Status: Acute (3) CVA (cerebral vascular accident) ICD Code: I63.9 - Cerebral infarction, unspecified Status: Acute (4) Respiratory failure, acute ICD Code: J96.00 - Acute respiratory failure, unspecified whether with hypoxia or hypercapnia Status: Acute (5) COPD (chronic obstructive pulmonary disease) ICD Code: J44.9 - Chronic obstructive pulmonary disease, unspecified Status: Chronic (6) Acute hypernatremia ICD Code: E87.0 - Hyperosmolality and hypernatremia Status: Resolved (7) Microcytic anemia ICD Code: D50.9 - Iron deficiency anemia, unspecified Assessment and Plan Ms. Rivas is a 66-year-old female with a history of stroke who was admitted to the [facility] on 11/04/2016 due to difficulty getting her thoughts together. She was found to have multifocal nonhemorrhagic infarctions in the frontal and parietal regions. She was initially awake and following commands with weakness of RLE and some aphasia. She was transferred to [facility] where he had an cerebral angiogram consistent with moyamoya. There were plans to perform extracranial/intracranial bypass. However, she had a seizure and ended up being intubated for status epilepticus 11/09 or 11/10. She was found to have a new right frontal infarct area and she was started on Dilantin and Keppra and it was felt that she would not be a candidate for intervention. She has since undergone PEG placement. Apparently family requested transfer back to [place] because they live locally and wanted her closer to home. Patient remained under critical care medicine until 12/24/2016. Viridans strep bacteremia, resolved - Per ID, sputum cx with GNR and staph aureus ? colonization. Urine with Kleb pneumo and E Coli ? colonization - Repeat blood cx 03/23 shows no growth in 5 days. 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 - Repeat level today 04/21. Follow. Hyponatremia, improved. Follow BMP today. Mixed systolic and diastolic heart failure, stable - echocardiogram 02/02/17 shows EF 35-40%, grade 3 diastolic dysfunction, severe tricuspid regurgitation, severe pulmonary HTN and severe mitral valve regurgitation. - continue Lasix 20mg daily - continue on Entresto - monitor electrolytes and renal function - monitor for s/sxs of fluid overload Chronic respiratory failure COPD Multilobar pneumonia, resolved - Pulmonary medicine following, appreciate assistance - Status post tracheostomy on 11/24/2016. Currently on T piece. Continue on Levsin prn for secretions. - completed antibiotic course with Tobramycin, course ended on 01/20/17. - Continue DuoNebs when necessary - supplement O2 to keep O2 sats > 90% Atrial fibrillation plus recent SVT - Cardiology signed off, stable - rate controlled. - Continue Metoprolol 50mg q6hr and Coumadin - confirmed with Dr. Flores patient to continue Coumadin WITHOUT ASA. - INR subtherapeutic 2.4 today. Being managed by pharmacy. Anasarca, improving. - Continue Lasix 20 mg IV daily. Dysphagia Hypoalbuminemia - s/p PEG placement - continue Jevity 1.5 through PEG tube with Corby supplementation. - Continue TF continuous 60ml per hour New onset DM - HgbA1c 6.5. ACCU check BID per protocol. Sacral/Coccyx wound - Specialty bed ordered, continue - Wound care following - per theirs and plastics recs - Daily cleansing the wound with gauze and Dakin's solutions, then applying a nickel-thick portion of santyl to the entire wound bed, then packing with Dakin's soaked gauze. This should be covered with ABD and secured with tape. Anemia, microcytic, hypochromic, stable. - iron studies-iron 33, TIBC 307, % sat 10.8, ferritin 346. Continue iron supplementation. - stool hemoccult negative - monitor intermittently GI Prophylaxis: Pepcid. DVT prophylaxis: SCDs. Coumadin. Full code. D/w bedside RN and Dr. Trejo. Discharge Planning Difficult placement. Jackie Walsh Apr 21, 2017 09:24
[2017-04-21 09:30] LABS: INTERNATIONAL NORMALIZED RATIO 2.3 RATIO; PROTHROMBIN TIME - PATIENT 26.1 SEC (9.8-11.6)
[2017-04-21 09:31] LABS: BICARBONATE 27.8 MEQ/L (21.0-32.0); POTASSIUM 4.2 MEQ/L (3.5-5.1)
[2017-04-21 09:44] LABS: AUTOMATED NEUTROPHIL # 6.2 TH/MM3 (1.8-7.7); BASOPHIL # 0.1 TH/MM3 (0-0.2); BASOPHIL % 0.8 % (0.0-2.0); EOSINOPHIL # 0.4 TH/MM3 (0-0.4); EOSINOPHIL % 4.1 % (0.0-4.0); HEMATOCRIT 31.5 % (35.0-46.0); HEMO FLAGS DIFF FINAL; LYMPH % 21.4 % (9.0-44.0); LYMPHOCYTE # 2.1 TH/MM3 (1.0-4.8); MEAN CELL VOLUME 77.2 FL (80.0-100.0); MEAN CORPUSCULAR HEMOGLOBIN 23.8 PG (27.0-34.0); MEAN CORPUSCULAR HGB CONC 30.9 % (32.0-36.0); MONO % 10.4 % (0.0-8.0); NEUT % 63.3 % (16.0-70.0); PLATELET COUNT 602 TH/MM3 (150-450); RED BLOOD COUNT 4.09 MIL/MM3 (4.00-5.30); RED CELL DISTRIBUTION WIDTH 20.4 % (11.6-17.2); WHITE BLOOD COUNT 9.9 TH/MM3 (4.0-11.0)
[2017-04-21] MEDS: LACTULOSE SYRUP 20 GM/30 ML CUP G-TUBE SCH ×2 (09:57→22:18)
[2017-04-21] MEDS: ASCORBIC ACID 500 MG TAB PEG SCH ×2 (10:00→22:18)
[2017-04-21] MEDS: carBAMazepine SUSP 200 MG/10 ML UDC PEG SCH ×2 (10:00→22:17)
[2017-04-21] MEDS: levETIRAcetam 500 MG/5 ML UDC PEG SCH ×2 (10:01→22:18)
[2017-04-21] MEDS: BROMOCRIPTINE MESYLATE 2.5 MG TAB PEG SCH ×2 (10:01→22:17)
[2017-04-21] MEDS: FUROSEMIDE 20 MG/2 ML VIAL IV PUSH SCH (10:02)
[2017-04-21] MEDS: SENNOSIDES SYRUP 8.8 MG/5 ML CUP G-TUBE SCH ×2 (10:02→22:18)
[2017-04-21] MEDS: FOLIC ACID 1 MG TAB PEG SCH (10:02)
[2017-04-21] MEDS: FERROUS SULFATE 300 MG /5ML UDC PEG SCH ×2 (10:02→22:17)
[2017-04-21] MEDS: FAMOTIDINE 20 MG TAB PEG SCH ×2 (10:02→22:17)
[2017-04-21] MEDS: POTASSIUM CHLORIDE 20 MEQ PWD PACKET PEG SCH (10:02)
[2017-04-21] MEDS: ATORVASTATIN 40 MG TAB G-TUBE SCH (10:02)
[2017-04-21] MEDS: COLLAGENASE OINT 30 GM TUBE TOPICAL SCH (10:03)
[2017-04-21] MEDS: SODIUM HYPOCHLORITE 0.25% 500 ML BTL TOPICAL SCH (10:03)
[2017-04-21] MEDS: SODIUM CHLORIDE 0.9% FLUSH 10 ML FLUSH IV FLUSH SCH ×2 (10:03→22:19)
[2017-04-21] MEDS: SACUBITRIL/VALSARTAN 24 MG-26 MG TAB PEG SCH ×2 (10:03→22:18)
[2017-04-21] MEDS: POVIDONE IODINE 10% OINT 30 GM TUBE TOPICAL SCH (10:04)
[2017-04-21] MEDS: CHLORHEXIDINE 0.12% (ORAL KIT) 15 ML CUP MT SCH ×2 (10:05→22:19)
[2017-04-21] MEDS: JUVEN POWDER 1 PACK G-TUBE SCH ×2 (10:05→22:19)
--- NOTE | 2017-04-21 16:30 | HHI.PR ---
Subjective Remarks 66 YOWF with Rf, s/p trach H/O CVA,Arango Arango disease. On trach collar Mod amount of trach secretions. no fever. Objective Vital Signs Vital Signs Date Time Temp Pulse Resp B/P (MAP) Pulse Ox O2 Delivery O2 Flow Rate FiO2 04/21/17 12:00 98.5 100 22 131/75 (93) 100 04/21/17 08:23 100 T-piece 28 04/21/17 08:23 100 T-piece 28 04/21/17 08:00 98.3 84 20 121/57 (78) 100 04/21/17 04:50 98.3 88 16 135/61 (85) 98 04/20/17 23:50 98.1 87 18 122/54 (76) 98 04/20/17 21:50 98.1 89 18 132/65 (87) 99 04/20/17 20:00 100 Trach Collar 4.00 28 T-Piece Humidified 04/20/17 19:31 100 Trach Collar 5.00 28 I/O 04/20/17 04/20/17 04/20/17 04/21/17 04/21/17 04/21/17 07:00 15:00 23:00 07:00 15:00 23:00 Intake Total 824 ml 738 ml 0 ml Output Total 400 ml 1400 ml 550 ml Balance 424 ml -662 ml -550 ml Intake Oral 0 ml 0 ml Tube Feeding 224 ml 438 ml Other 600 ml 300 ml Output Urine Total 400 ml 1400 ml 550 ml # Bowel Movements 1 0 0 Result Diagram: 04/21/17 0732 04/21/17 0732 Objective Remarks GENERAL: MBMN WF, on Trach collar SKIN: Warm and dry. HEAD: Normocephalic. EYES: No scleral icterus. No injection or drainage. NECK: Supple, trachea midline. No JVD or lymphadenopathy. has trach CARDIOVASCULAR: Regular rate and rhythm without murmurs, gallops, or rubs. RESPIRATORY: Breath sounds equal bilaterally. No accessory muscle use. GASTROINTESTINAL: Abdomen soft, non-tender, nondistended. has PEG MUSCULOSKELETAL: No cyanosis, or edema. BACK: Nontender without obvious deformity. No CVA tenderness. A/P Assessment and Plan RF, S/P Trach CVA Arango arango disease CAD COPD SZ disorder PLAN: Aerosol nebs Cont trach collar supplement 02, keep sat >90%. TF Cont Levsin.Vernon West MD Apr 21, 2017 16:30
[2017-04-21] MEDS: WARFARIN SOD 10 MG TAB PEG SCH (17:43)
[2017-04-22] VITALS (9 sets, daily range): BP systolic 96–126; BP diastolic 51–69; PULSE 77–100; RESP 18–22; TEMP 98.3–99.6; O2SAT 95–100
[2017-04-22] MEDS: CHLORHEXIDINE GLUCONATE 2 % 1 PACK (2 CLOTHS) TOP SCH (03:45)
[2017-04-22] MEDS: HYOSCYAMINE SOLN 0.125 MG/ML 15 ML BTL G-TUBE SCH ×4 (05:53→17:26)
[2017-04-22] MEDS: METOPROLOL TARTRATE 25 MG TAB G-TUBE SCH ×4 (05:54→17:26)
[2017-04-22] MEDS: FREE WATER G-TUBE SCH ×3 (05:54→23:34)
[2017-04-22] MEDS: RESP: IPRATROPIUM 0.5 MG/2.5 ML NEB NEB SCH ×4 (08:19→21:31)
[2017-04-22] MEDS: POVIDONE IODINE 10% OINT 30 GM TUBE TOPICAL SCH (09:00)
[2017-04-22] MEDS ORDERED: LACTULOSE SYRUP 20 GM/30 ML CUP G-TUBE SCH (09:00)
[2017-04-22] MEDS: SENNOSIDES SYRUP 8.8 MG/5 ML CUP G-TUBE SCH ×3 (09:00→23:33)
[2017-04-22] MEDS: FERROUS SULFATE 300 MG /5ML UDC PEG SCH ×2 (09:48→23:33)
[2017-04-22] MEDS: SODIUM CHLORIDE 0.9% FLUSH 10 ML FLUSH IV FLUSH SCH ×2 (09:48→23:36)
[2017-04-22] MEDS: FUROSEMIDE 20 MG/2 ML VIAL IV PUSH SCH (09:48)
[2017-04-22] MEDS: carBAMazepine SUSP 200 MG/10 ML UDC PEG SCH ×2 (09:48→23:35)
[2017-04-22] MEDS: POTASSIUM CHLORIDE 20 MEQ PWD PACKET PEG SCH (09:49)
[2017-04-22] MEDS: FAMOTIDINE 20 MG TAB PEG SCH ×2 (09:50→23:33)
[2017-04-22] MEDS: ASCORBIC ACID 500 MG TAB PEG SCH ×2 (09:50→23:33)
[2017-04-22] MEDS: FOLIC ACID 1 MG TAB PEG SCH (09:50)
[2017-04-22] MEDS: ATORVASTATIN 40 MG TAB G-TUBE SCH (09:50)
[2017-04-22] MEDS: levETIRAcetam 500 MG/5 ML UDC PEG SCH ×2 (09:50→23:33)
[2017-04-22] MEDS: BROMOCRIPTINE MESYLATE 2.5 MG TAB PEG SCH ×2 (09:50→23:35)
[2017-04-22] MEDS: SACUBITRIL/VALSARTAN 24 MG-26 MG TAB PEG SCH ×2 (09:50→23:34)
[2017-04-22] MEDS: CHLORHEXIDINE 0.12% (ORAL KIT) 15 ML CUP MT SCH ×2 (09:51→23:36)
[2017-04-22] MEDS: JUVEN POWDER 1 PACK G-TUBE SCH ×2 (09:52→23:36)
[2017-04-22] MEDS: COLLAGENASE OINT 30 GM TUBE TOPICAL SCH (09:53)
[2017-04-22] MEDS: SODIUM HYPOCHLORITE 0.25% 500 ML BTL TOPICAL SCH (09:53)
--- NOTE | 2017-04-22 10:09 | HHI.PR ---
Subjective Remarks Follow up CVA. Patient seen and examined. RN at bedside. Denies any new acute events overnight. Patient lying in bed comfortably in no apparent distress. Opens eyes to vocal and noxious stimuli. Does not follow commands. Tracks occasionally with eyes. Positive BM. Afebrile. VSS. Tolerating TF. Continue on t -piece, 28% FiO2. Objective Vitals Vital Signs Date Time Temp Pulse Resp B/P (MAP) Pulse Ox O2 Delivery O2 Flow Rate FiO2 04/22/17 08:19 98 T-piece 5.00 28 04/22/17 08:00 99.2 89 18 115/66 (82) 98 04/22/17 05:46 98.3 100 20 120/58 (78) 100 04/21/17 23:40 99.4 97 18 108/54 (72) 98 04/21/17 20:35 95 T-piece 6.00 28 04/21/17 20:00 99.6 94 20 109/53 (71) 98 04/21/17 20:00 86 04/21/17 20:00 100 Trach Collar 6.00 28 T-Piece Humidified 04/21/17 16:00 98.7 98 16 117/53 (74) 100 04/21/17 12:00 98.5 100 22 131/75 (93) 100 I/O 04/21/17 04/21/17 04/21/17 04/22/17 04/22/17 04/22/17 07:00 15:00 23:00 07:00 15:00 23:00 Intake Total 0 ml 1493 ml 1037 ml Output Total 550 ml 1650 ml 600 ml Balance -550 ml -157 ml 437 ml Intake Oral 0 ml 0 ml Tube Feeding 1193 ml 637 ml Other 300 ml 400 ml Output Urine Total 550 ml 1650 ml 600 ml # Bowel Movements 0 0 Result Diagram: 04/21/17 0732 04/21/17 0732 Imaging Last Impressions Chest X-Ray 03/20/17 0000 Signed Impressions: Service Date/Time: Monday, March 20, 2017 11:37 - CONCLUSION: Stable appearance with no acute cardiopulmonary disease. Lenny Kerns MD Abdomen X-Ray 02/11/17 0000 Signed Impressions: Service Date/Time: Saturday, February 11, 2017 17:52 - CONCLUSION: Minimal colonic distention. Kenneth Frost MD FACR Catheter Change 02/10/17 0000 Signed Impressions: Service Date/Time: February 13:47 - CONCLUSION: Uncomplicated fluoroscopic guided gastrostomy tube replacement. Positioning confirmed. The tube can be used immediately. Nghia Pacheco MD Lower Extremity Ultrasound 02/01/17 0000 Signed Impressions: Service Date/Time: Wednesday, February 01, 2017 13:23 - CONCLUSION: Normal examination. 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 Sami Mccarthy MD Objective Remarks GENERAL: Well-nourished, well-developed female patient lying in bed in NAD, t- collar in place. bedside O2 sats 100%. SKIN: Warm and dry. Mild anasarca. HEENT: Normocephalic. Pupils equal and round. No scleral icterus. No injection or drainage. No nasal bleeding or discharge. Mucous membranes pink and moist. NECK: Supple. Trachea midline. CARDIOVASCULAR: Regular rate and rhythm. S1, S2 noted. No murmur appreciated. RESPIRATORY: No accessory muscle use. Coarse breath sounds noted. Breath sounds equal bilaterally. GASTROINTESTINAL: Abdomen soft, non-tender, nondistended. Normoactive bowel sounds x4. MUSCULOSKELETAL: No obvious deformities. Extremities without clubbing, cyanosis. NEUROLOGICAL: Does not track with eyes. Occasionally opens to vocal and noxious stimuli. No spontaneous movement in upper and lower extremities. Procedures PEG 11/24/2016 Percutaneous tracheostomy. 11/18/2016 Moderate encephalopathy with suggestion of left temporal region cortical irritability. No active seizures. Clinical correlation. Echocardiogram Severe dilated left ventricle. Wall thickness is normal. The left ventricular systolic function is moderately reduced with an estimated ejection fraction in the range of 35-40%. Doppler parameters are consistent with a restrictive left ventricular filling pattern indicative of decreased left ventricular diastolic compliance and increase left atrial pressure (grade 3 diastolic dysfunction). There is severe tricuspid regurgitation. There is severe pulmonary hypertension present ( > 70 mmHg). Severe mitral valve regurgitation. 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 Status: Acute (2) Seizure ICD Code: R56.9 - Unspecified convulsions Status: Acute (3) CVA (cerebral vascular accident) ICD Code: I63.9 - Cerebral infarction, unspecified Status: Acute (4) Respiratory failure, acute ICD Code: J96.00 - Acute respiratory failure, unspecified whether with hypoxia or hypercapnia Status: Acute (5) COPD (chronic obstructive pulmonary disease) ICD Code: J44.9 - Chronic obstructive pulmonary disease, unspecified Status: Chronic (6) Acute hypernatremia ICD Code: E87.0 - Hyperosmolality and hypernatremia Status: Resolved (7) Microcytic anemia ICD Code: D50.9 - Iron deficiency anemia, unspecified Assessment and Plan Ms. Rivas is a 66-year-old female with a history of stroke who was admitted to the [facility] on 11/04/2016 due to difficulty getting her thoughts together. She was found to have multifocal nonhemorrhagic infarctions in the frontal and parietal regions. She was initially awake and following commands with weakness of RLE and some aphasia. She was transferred to [facility] where he had an cerebral angiogram consistent with moyamoya. There were plans to perform extracranial/intracranial bypass. However, she had a seizure and ended up being intubated for status epilepticus 11/09 or 11/10. She was found to have a new right frontal infarct area and she was started on Dilantin and Keppra and it was felt that she would not be a candidate for intervention. She has since undergone PEG placement. Apparently family requested transfer back to [place] because they live locally and wanted her closer to home. Patient remained under critical care medicine until 12/24/2016. Viridans strep bacteremia, resolved - Per ID, sputum cx with GNR and staph aureus ? colonization. Urine with Kleb pneumo and E Coli ? colonization - Repeat blood cx 03/23 shows no growth in 5 days. 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 - continue to monitor ammonia level as indicated - repeat level ordered for 04/12, level was 17. - Repeat level 20. Will DC Lactulose. Continue to monitor for any encephalopathy. Will recheck as needed. Hyponatremia, improved. BMP reviewed today. Mixed systolic and diastolic heart failure, stable - echocardiogram 02/02/17 shows EF 35-40%, grade 3 diastolic dysfunction, severe tricuspid regurgitation, severe pulmonary HTN and severe mitral valve regurgitation. - continue Lasix 20mg daily - continue on Entresto - monitor electrolytes and renal function - monitor for s/sxs of fluid overload Chronic respiratory failure COPD Multilobar pneumonia, resolved - Pulmonary medicine following, appreciate assistance - Status post tracheostomy on 11/24/2016. Currently on T piece. Continue on Levsin prn for secretions. - completed antibiotic course with Tobramycin, course ended on 01/20/17. - Continue DuoNebs when necessary - supplement O2 to keep O2 sats > 90% Atrial fibrillation plus recent SVT - Cardiology signed off, stable - rate controlled. - Continue Metoprolol 50mg q6hr and Coumadin - confirmed with Dr. Flores patient to continue Coumadin WITHOUT ASA. - INR subtherapeutic 2.3 today. Being managed by pharmacy. Anasarca, improving. - Continue Lasix 20 mg IV daily. Dysphagia Hypoalbuminemia - s/p PEG placement - continue Jevity 1.5 through PEG tube with Corby supplementation. - Continue TF continuous 60ml per hour Sacral/Coccyx wound - Specialty bed ordered, continue - Wound care following - per theirs and plastics recs - Daily cleansing the wound with gauze and Dakin's solutions, then applying a nickel-thick portion of santyl to the entire wound bed, then packing with Dakin's soaked gauze. This should be covered with ABD and secured with tape. Anemia, microcytic, hypochromic, stable. - iron studies-iron 33, TIBC 307, % sat 10.8, ferritin 346. Continue iron supplementation. - stool Hemoccult negative - monitor intermittently GI Prophylaxis: Pepcid. DVT prophylaxis: SCDs. Coumadin. Full code. D/w bedside RN and Dr. Trejo. Discharge Planning Difficult placement. Jackie Walsh Apr 22, 2017 10:09
[2017-04-22 10:36] LABS: INTERNATIONAL NORMALIZED RATIO 2.1 RATIO; PROTHROMBIN TIME - PATIENT 24.4 SEC (9.8-11.6)
[2017-04-22] MEDS ORDERED: WARFARIN SOD 2.5 MG TAB PEG ONE (16:00)
[2017-04-22] MEDS: WARFARIN SOD 10 MG TAB PEG SCH (17:25)
--- NOTE | 2017-04-22 18:48 | HHI.PR ---
Subjective Remarks 66 YOWF with Rf, s/p trach H/O CVA,Arango Arango disease. On trach collar Mod amount of trach secretions. no fever. Sat 96-100% Objective Vital Signs Vital Signs Date Time Temp Pulse Resp B/P (MAP) Pulse Ox O2 Delivery O2 Flow Rate FiO2 04/22/17 16:00 99.6 92 18 126/58 (80) 100 04/22/17 16:00 T-Piece 5.00 28 04/22/17 12:00 T-Piece 5.00 28 04/22/17 12:00 98.8 99 20 120/69 (86) 100 04/22/17 09:15 T-Piece 5.00 28 04/22/17 08:27 93 04/22/17 08:19 98 T-piece 5.00 28 04/22/17 08:00 99.2 89 18 115/66 (82) 98 04/22/17 05:46 98.3 100 20 120/58 (78) 100 04/21/17 23:40 99.4 97 18 108/54 (72) 98 04/21/17 20:35 95 T-piece 6.00 28 04/21/17 20:00 99.6 94 20 109/53 (71) 98 04/21/17 20:00 86 04/21/17 20:00 100 Trach Collar 6.00 28 T-Piece Humidified I/O 04/21/17 04/21/17 04/21/17 04/22/17 04/22/17 04/22/17 07:00 15:00 23:00 07:00 15:00 23:00 Intake Total 0 ml 1493 ml 1037 ml 0 ml Output Total 550 ml 1650 ml 600 ml 1150 ml Balance -550 ml -157 ml 437 ml -1150 ml Intake Oral 0 ml 0 ml 0 ml Tube Feeding 1193 ml 637 ml Other 300 ml 400 ml Output Urine Total 550 ml 1650 ml 600 ml 1150 ml # Bowel Movements 0 0 0 Result Diagram: 04/21/1773104/21/1732 Objective Remarks GENERAL: MBMN WF, on Trach collar SKIN: Warm and dry. HEAD: Normocephalic. EYES: No scleral icterus. No injection or drainage. NECK: Supple, trachea midline. No JVD or lymphadenopathy. has trach CARDIOVASCULAR: Regular rate and rhythm without murmurs, gallops, or rubs. RESPIRATORY: Breath sounds equal bilaterally. No accessory muscle use. GASTROINTESTINAL: Abdomen soft, non-tender, nondistended. has PEG MUSCULOSKELETAL: No cyanosis, or edema. BACK: Nontender without obvious deformity. No CVA tenderness. A/P Assessment and Plan RF, S/P Trach CVA Arango arango disease CAD COPD SZ disorder PLAN: Aerosol nebs Cont trach collar supplement 02, keep sat >90%. TF Cont Levsin.prn Vernon Marx MD Apr 22, 2017 18:48
[2017-04-23] VITALS (11 sets, daily range): BP systolic 95–121; BP diastolic 49–66; PULSE 87–95; RESP 17–22; TEMP 97.9–99.1; O2SAT 93–100
[2017-04-23] MEDS: CHLORHEXIDINE GLUCONATE 2 % 1 PACK (2 CLOTHS) TOP SCH (02:22)
[2017-04-23] MEDS: HYOSCYAMINE SOLN 0.125 MG/ML 15 ML BTL G-TUBE SCH ×4 (06:42→19:01)
[2017-04-23] MEDS: METOPROLOL TARTRATE 25 MG TAB G-TUBE SCH ×4 (06:42→19:01)
[2017-04-23] MEDS: FREE WATER G-TUBE SCH ×3 (06:43→22:50)
[2017-04-23] MEDS: RESP: IPRATROPIUM 0.5 MG/2.5 ML NEB NEB SCH ×4 (08:52→21:01)
[2017-04-23] MEDS: CHLORHEXIDINE 0.12% (ORAL KIT) 15 ML CUP MT SCH ×2 (11:02→22:50)
[2017-04-23] MEDS: JUVEN POWDER 1 PACK G-TUBE SCH ×2 (11:02→22:50)
[2017-04-23] MEDS: ATORVASTATIN 40 MG TAB G-TUBE SCH (11:03)
[2017-04-23] MEDS: SENNOSIDES SYRUP 8.8 MG/5 ML CUP G-TUBE SCH ×2 (11:03→22:48)
[2017-04-23] MEDS: SODIUM CHLORIDE 0.9% FLUSH 10 ML FLUSH IV FLUSH SCH ×2 (11:03→22:49)
[2017-04-23] MEDS: SACUBITRIL/VALSARTAN 24 MG-26 MG TAB PEG SCH ×2 (11:04→22:49)
[2017-04-23] MEDS: FOLIC ACID 1 MG TAB PEG SCH (11:04)
[2017-04-23] MEDS: FERROUS SULFATE 300 MG /5ML UDC PEG SCH ×2 (11:04→22:48)
[2017-04-23] MEDS: FUROSEMIDE 20 MG/2 ML VIAL IV PUSH SCH (11:04)
[2017-04-23] MEDS: BROMOCRIPTINE MESYLATE 2.5 MG TAB PEG SCH ×2 (11:05→22:48)
[2017-04-23] MEDS: POTASSIUM CHLORIDE 20 MEQ PWD PACKET PEG SCH (11:05)
[2017-04-23] MEDS: levETIRAcetam 500 MG/5 ML UDC PEG SCH ×2 (11:05→22:49)
[2017-04-23] MEDS: FAMOTIDINE 20 MG TAB PEG SCH ×2 (11:05→22:49)
[2017-04-23] MEDS: POVIDONE IODINE 10% OINT 30 GM TUBE TOPICAL SCH (11:06)
[2017-04-23] MEDS: ASCORBIC ACID 500 MG TAB PEG SCH ×2 (11:06→22:49)
[2017-04-23] MEDS: carBAMazepine SUSP 200 MG/10 ML UDC PEG SCH ×2 (11:06→22:49)
[2017-04-23] MEDS: COLLAGENASE OINT 30 GM TUBE TOPICAL SCH (11:07)
[2017-04-23] MEDS: SODIUM HYPOCHLORITE 0.25% 500 ML BTL TOPICAL SCH (11:07)
[2017-04-23 12:11] LABS: INTERNATIONAL NORMALIZED RATIO 2.4 RATIO; PROTHROMBIN TIME - PATIENT 27.2 SEC (9.8-11.6)
--- NOTE | 2017-04-23 13:41 | HHI.PR ---
Subjective Remarks Discussed with the nurse. No change. Patient at baseline. Family in the room. Patient with eyes opened, tracking. Doesn't appear in distress. Objective Vitals Vital Signs Date Time Temp Pulse Resp B/P (MAP) Pulse Ox O2 Delivery O2 Flow Rate FiO2 04/23/17 12:07 98.7 95 20 104/59 (74) 100 04/23/17 08:55 97 T-piece 5.00 28 04/23/17 08:55 97 T-piece 5.00 28 04/23/17 08:07 99.1 87 17 95/51 (66) 96 04/23/17 04:00 98.1 87 22 102/66 (78) 93 04/23/17 01:52 121/57 (78) 04/23/17 00:00 97.9 90 20 96/49 (65) 99 04/22/17 21:32 95 T-piece 28 04/22/17 21:00 98/60 (73) 04/22/17 20:00 100 Trach Collar 5.00 28 T-Piece Humidified 04/22/17 20:00 77 04/22/17 20:00 98.4 81 22 96/51 (66) 95 04/22/17 16:00 99.6 92 18 126/58 (80) 100 04/22/17 16:00 T-Piece 5.00 28 I/O 04/22/17 04/22/17 04/22/17 04/23/17 04/23/17 04/23/17 07:00 15:00 23:00 07:00 15:00 23:00 Intake Total 1037 ml 0 ml 1538 ml Output Total 600 ml 1150 ml 700 ml Balance 437 ml -1150 ml 838 ml Intake Oral 0 ml Tube Feeding 637 ml 1138 ml Other 400 ml 400 ml Output Urine Total 600 ml 1150 ml 700 ml # Bowel Movements 0 Result Diagram: 04/21/17 0732 04/21/17 0732 Imaging Last Impressions Chest X-Ray 03/20/17 0000 Signed Impressions: Service Date/Time: Monday, March 20, 2017 11:37 - CONCLUSION: Stable appearance with no acute cardiopulmonary disease. Lenny Kerns MD Abdomen X-Ray 02/11/17 0000 Signed Impressions: Service Date/Time: Saturday, February 11, 2017 17:52 - CONCLUSION: Minimal colonic distention. Kenneth Frost MD FACR Catheter Change 02/10/17 0000 Signed Impressions: Service Date/Time: February 13:47 - CONCLUSION: Uncomplicated fluoroscopic guided gastrostomy tube replacement. Positioning confirmed. The tube can be used immediately. Nghia Pacheco MD Lower Extremity Ultrasound 02/01/17 0000 Signed Impressions: Service Date/Time: Wednesday, February 01, 2017 13:23 - CONCLUSION: Normal examination. 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 Sami Mccarthy MD Objective Remarks GENERAL: Alert, sleepy, eyes open, does not respond to verbal commands. On T piece. SKIN: Warm and dry. HEAD: Normocephalic. EYES: No scleral icterus. No injection or drainage. NECK: Supple, trachea midline. No JVD or lymphadenopathy. CARDIOVASCULAR: Regular rhythm, tachycardic without murmurs, gallops, or rubs. RESPIRATORY: Breath sounds equal bilaterally. No accessory muscle use. GASTROINTESTINAL: Abdomen soft, obese, non-tender, nondistended. MUSCULOSKELETAL: No cyanosis, or edema. Procedures PEG 11/24/2016 Percutaneous tracheostomy. 11/18/2016 Moderate encephalopathy with suggestion of left temporal region cortical irritability. No active seizures. Clinical correlation. Echocardiogram Severe dilated left ventricle. Wall thickness is normal. The left ventricular systolic function is moderately reduced with an estimated ejection fraction in the range of 35-40%. Doppler parameters are consistent with a restrictive left ventricular filling pattern indicative of decreased left ventricular diastolic compliance and increase left atrial pressure (grade 3 diastolic dysfunction). There is severe tricuspid regurgitation. There is severe pulmonary hypertension present ( > 70 mmHg). Severe mitral valve regurgitation. 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 Status: Acute (2) Seizure ICD Code: R56.9 - Unspecified convulsions Status: Acute (3) CVA (cerebral vascular accident) ICD Code: I63.9 - Cerebral infarction, unspecified Status: Acute (4) Respiratory failure, acute ICD Code: J96.00 - Acute respiratory failure, unspecified whether with hypoxia or hypercapnia Status: Acute (5) COPD (chronic obstructive pulmonary disease) ICD Code: J44.9 - Chronic obstructive pulmonary disease, unspecified Status: Chronic (6) Acute hypernatremia ICD Code: E87.0 - Hyperosmolality and hypernatremia Status: Resolved (7) Microcytic anemia ICD Code: D50.9 - Iron deficiency anemia, unspecified Assessment and Plan Ms. Rivas is a 66-year-old female with a history of stroke who was admitted to the [facility] on 11/04/2016 due to difficulty getting her thoughts together. She was found to have multifocal nonhemorrhagic infarctions in the frontal and parietal regions. She was initially awake and following commands with weakness of RLE and some aphasia. She was transferred to [facility] where he had an cerebral angiogram consistent with moyamoya. There were plans to perform extracranial/intracranial bypass. However, she had a seizure and ended up being intubated for status epilepticus 11/09 or 11/10. She was found to have a new right frontal infarct area and she was started on Dilantin and Keppra and it was felt that she would not be a candidate for intervention. She has since undergone PEG placement. Apparently family requested transfer back to [place] because they live locally and wanted her closer to home. Patient remained under critical care medicine until 12/24/2016. Viridans strep bacteremia, resolved Per ID, sputum cx with GNR and staph aureus ? colonization. Urine with Kleb pneumo and E Coli ? colonization Repeat blood cx 03/23 shows no growth in 5 days. on IV Rocephin ended 04/05/17 per ID continue precautions Bilateral frontal CVA Moyamoya - confirmed by arteriogram at [facility] October 2016 Seizure disorder Continue Keppra 1000mg BID Continue Tegretol 200mg q 12h Follow for seizure activity - no recent seizure activity noted Continue Bromocriptine Keppra level 25.3 04/05 Tegretol level 7.1 03/31 Hyperammonemia, resolved. continue to monitor ammonia level as indicated repeat level ordered for 04/12, level was 17. Repeat level 20. Will DC Lactulose. Continue to monitor for any encephalopathy. Will recheck as needed. Hyponatremia, improved. Monitor Na Mixed systolic and diastolic heart failure, stable - Echocardiogram 02/02/17 shows EF 35-40%, grade 3 diastolic dysfunction, severe tricuspid regurgitation, severe pulmonary HTN and severe mitral valve regurgitation. continue Lasix 20mg daily continue on Entresto monitor electrolytes and renal function monitor for s/sxs of fluid overload Chronic respiratory failure COPD Multilobar pneumonia, resolved Pulmonary medicine following, appreciate assistance Status post tracheostomy on 11/24/2016. Currently on T piece. Continue on Levsin prn for secretions. completed antibiotic course with Tobramycin, course ended on 01/20/17. Continue DuoNebs when necessary supplement O2 to keep O2 sats > 90% Atrial fibrillation plus recent SVT Cardiology signed off, stable rate controlled. Continue Metoprolol 50mg q6hr and Coumadin - confirmed with Dr. Flores patient to continue Coumadin WITHOUT ASA. INR subtherapeutic 2.3 today. Being managed by pharmacy. Anasarca, improving. Continue Lasix 20 mg IV daily. Dysphagia Hypoalbuminemia s/p PEG placement continue Jevity 1.5 through PEG tube with Corby supplementation. Continue TF continuous 60ml per hour Sacral/Coccyx wound Specialty bed ordered, continue Wound care following - per theirs and plastics recs - Daily cleansing the wound with gauze and Dakin's solutions, then applying a nickel-thick portion of santyl to the entire wound bed, then packing with Dakin's soaked gauze. This should be covered with ABD and secured with tape. Anemia, microcytic, hypochromic, stable. iron studies-iron 33, TIBC 307, % sat 10.8, ferritin 346. Continue iron supplementation. stool Hemoccult negative monitor intermittently GI Prophylaxis: Pepcid. DVT prophylaxis: SCDs. Coumadin. Full code. Discussed with the patient, nurse. Discharge Planning Difficult placement. Angela Trejo MD Apr 23, 2017 13:41
--- NOTE | 2017-04-23 15:56 | HHI.PR ---
Subjective Remarks 66 YOWF with Rf, s/p trach H/O CVA,Arango Arango disease. On trach collar Mod amount of trach secretions. no fever. Sat 96-100% No new complaint Objective Vital Signs Vital Signs Date Time Temp Pulse Resp B/P (MAP) Pulse Ox O2 Delivery O2 Flow Rate FiO2 04/23/17 12:07 98.7 95 20 104/59 (74) 100 04/23/17 08:55 97 T-piece 5.00 28 04/23/17 08:55 97 T-piece 5.00 28 04/23/17 08:07 99.1 87 17 95/51 (66) 96 04/23/17 04:00 98.1 87 22 102/66 (78) 93 04/23/17 01:52 121/57 (78) 04/23/17 00:00 97.9 90 20 96/49 (65) 99 04/22/17 21:32 95 T-piece 28 04/22/17 21:00 98/60 (73) 04/22/17 20:00 100 Trach Collar 5.00 28 T-Piece Humidified 04/22/17 20:00 77 04/22/17 20:00 98.4 81 22 96/51 (66) 95 04/22/17 16:00 99.6 92 18 126/58 (80) 100 04/22/17 16:00 T-Piece 5.00 28 I/O 04/22/17 04/22/17 04/22/17 04/23/17 04/23/17 04/23/17 07:00 15:00 23:00 07:00 15:00 23:00 Intake Total 1037 ml 0 ml 1538 ml Output Total 600 ml 1150 ml 700 ml Balance 437 ml -1150 ml 838 ml Intake Oral 0 ml Tube Feeding 637 ml 1138 ml Other 400 ml 400 ml Output Urine Total 600 ml 1150 ml 700 ml # Bowel Movements 0 Result Diagram: 04/21/1773104/21/17731 Objective Remarks GENERAL: MBMN WF, on Trach collar SKIN: Warm and dry. HEAD: Normocephalic. EYES: No scleral icterus. No injection or drainage. NECK: Supple, trachea midline. No JVD or lymphadenopathy. has trach CARDIOVASCULAR: Regular rate and rhythm without murmurs, gallops, or rubs. RESPIRATORY: Breath sounds equal bilaterally. No accessory muscle use. GASTROINTESTINAL: Abdomen soft, non-tender, nondistended. has PEG MUSCULOSKELETAL: No cyanosis, or edema. BACK: Nontender without obvious deformity. No CVA tenderness. A/P Assessment and Plan RF, S/P Trach CVA Arango arango disease CAD COPD SZ disorder PLAN: Aerosol nebs Cont trach collar supplement 02, keep sat >90%. TF [email or web address] Vernon Marx MD Apr 23, 2017 15:56
[2017-04-23] MEDS: WARFARIN SOD 10 MG TAB PEG SCH (16:00)
[2017-04-24] VITALS (10 sets, daily range): BP systolic 101–130; BP diastolic 58–84; PULSE 89–108; RESP 12–22; TEMP 97.6–99.5; O2SAT 93–100
[2017-04-24] MEDS: HYOSCYAMINE SOLN 0.125 MG/ML 15 ML BTL G-TUBE SCH ×4 (01:33→17:38)
[2017-04-24] MEDS: METOPROLOL TARTRATE 25 MG TAB G-TUBE SCH ×4 (01:33→17:38)
[2017-04-24] MEDS: CHLORHEXIDINE GLUCONATE 2 % 1 PACK (2 CLOTHS) TOP SCH (04:00)
[2017-04-24] MEDS: FREE WATER G-TUBE SCH ×3 (05:24→21:43)
[2017-04-24] MEDS: CHLORHEXIDINE 0.12% (ORAL KIT) 15 ML CUP MT SCH ×2 (08:00→21:33)
[2017-04-24] MEDS: RESP: IPRATROPIUM 0.5 MG/2.5 ML NEB NEB SCH ×4 (09:11→21:25)
[2017-04-24 09:14] LABS: INTERNATIONAL NORMALIZED RATIO 2.3 RATIO; PROTHROMBIN TIME - PATIENT 26.1 SEC (9.8-11.6)
--- NOTE | 2017-04-24 09:59 | HHI.PR ---
Subjective Remarks With eyes open appears in nad. No change sine yesterday. O2 sat going down at times, needs suctioning, otherwise VSS Objective Vitals Vital Signs Date Time Temp Pulse Resp B/P (MAP) Pulse Ox O2 Delivery O2 Flow Rate FiO2 04/24/17 09:10 93 T-piece 5.00 28 04/24/17 09:10 93 T-piece 5.00 28 04/24/17 08:10 99.1 94 21 129/64 (85) 98 04/24/17 04:00 98.2 101 18 124/68 (86) 98 04/24/17 00:00 97.6 108 20 101/58 (72) 100 04/23/17 21:10 100 T-piece 28 04/23/17 20:00 94 04/23/17 20:00 100 Trach Collar 5.00 28 T-Piece Humidified 04/23/17 20:00 99.0 87 20 108/57 (74) 100 04/23/17 19:07 100 Trach Collar 5.00 28 T-Piece Humidified 04/23/17 16:50 98 T-piece 5.00 28 04/23/17 16:07 98.9 92 22 105/53 (70) 100 04/23/17 12:07 98.7 95 20 104/59 (74) 100 I/O 04/23/17 04/23/17 04/23/17 04/24/17 04/24/17 04/24/17 07:00 15:00 23:00 07:00 15:00 23:00 Intake Total 1538 ml 0 ml Output Total 700 ml 1000 ml 450 ml Balance 838 ml -1000 ml -450 ml Intake Oral 0 ml Tube Feeding 1138 ml Other 400 ml Output Urine Total 700 ml 1000 ml 450 ml # Bowel Movements 1 1 Result Diagram: 04/21/1732 04/21/17 0732 Objective Remarks GENERAL: Alert, sleepy, eyes open, does not respond to verbal commands. On T piece. SKIN: Warm and dry. HEAD: Normocephalic. EYES: No scleral icterus. No injection or drainage. NECK: Supple, trachea midline. No JVD or lymphadenopathy. CARDIOVASCULAR: Regular rhythm, tachycardic without murmurs, gallops, or rubs. RESPIRATORY: Breath sounds equal bilaterally. No accessory muscle use. GASTROINTESTINAL: Abdomen soft, obese, non-tender, nondistended. MUSCULOSKELETAL: No cyanosis, or edema. Procedures PEG 11/24/2016 Percutaneous tracheostomy. 11/18/2016 Moderate encephalopathy with suggestion of left temporal region cortical irritability. No active seizures. Clinical correlation. Echocardiogram Severe dilated left ventricle. Wall thickness is normal. The left ventricular systolic function is moderately reduced with an estimated ejection fraction in the range of 35-40%. Doppler parameters are consistent with a restrictive left ventricular filling pattern indicative of decreased left ventricular diastolic compliance and increase left atrial pressure (grade 3 diastolic dysfunction). There is severe tricuspid regurgitation. There is severe pulmonary hypertension present ( > 70 mmHg). Severe mitral valve regurgitation. 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 Status: Acute (2) Seizure ICD Code: R56.9 - Unspecified convulsions Status: Acute (3) CVA (cerebral vascular accident) ICD Code: I63.9 - Cerebral infarction, unspecified Status: Acute (4) Respiratory failure, acute ICD Code: J96.00 - Acute respiratory failure, unspecified whether with hypoxia or hypercapnia Status: Acute (5) COPD (chronic obstructive pulmonary disease) ICD Code: J44.9 - Chronic obstructive pulmonary disease, unspecified Status: Chronic (6) Acute hypernatremia ICD Code: E87.0 - Hyperosmolality and hypernatremia Status: Resolved (7) Microcytic anemia ICD Code: D50.9 - Iron deficiency anemia, unspecified Assessment and Plan Ms. Rivas is a 66-year-old female with a history of stroke who was admitted to the [facility] on 11/04/2016 due to difficulty getting her thoughts together. She was found to have multifocal nonhemorrhagic infarctions in the frontal and parietal regions. She was initially awake and following commands with weakness of RLE and some aphasia. She was transferred to [facility] where he had an cerebral angiogram consistent with moyamoya. There were plans to perform extracranial/intracranial bypass. However, she had a seizure and ended up being intubated for status epilepticus 11/09 or 11/10. She was found to have a new right frontal infarct area and she was started on Dilantin and Keppra and it was felt that she would not be a candidate for intervention. She has since undergone PEG placement. Apparently family requested transfer back to [place] because they live locally and wanted her closer to home. Patient remained under critical care medicine until 12/24/2016. Viridans strep bacteremia, resolved Per ID, sputum cx with GNR and staph aureus ? colonization. Urine with Kleb pneumo and E Coli ? colonization Repeat blood cx 03/23 shows no growth in 5 days. on IV Rocephin ended 04/05/17 per ID continue precautions Bilateral frontal CVA Moyamoya - confirmed by arteriogram at [facility] October 2016 Seizure disorder Continue Keppra 1000mg BID Continue Tegretol 200mg q 12h Follow for seizure activity - no recent seizure activity noted Continue Bromocriptine Keppra level 25.3 04/05 Tegretol level 7.1 03/31 Hyperammonemia, resolved. continue to monitor ammonia level as indicated repeat level ordered for 04/12, level was 17. Repeat level 20. Will DC Lactulose. Continue to monitor for any encephalopathy. Will recheck as needed. Hyponatremia, improved. Monitor Na Mixed systolic and diastolic heart failure, stable - Echocardiogram 02/02/17 shows EF 35-40%, grade 3 diastolic dysfunction, severe tricuspid regurgitation, severe pulmonary HTN and severe mitral valve regurgitation. continue Lasix 20mg daily continue on Entresto monitor electrolytes and renal function monitor for s/sxs of fluid overload Chronic respiratory failure COPD Multilobar pneumonia, resolved Pulmonary medicine following, appreciate assistance Status post tracheostomy on 11/24/2016. Currently on T piece. Continue on Levsin prn for secretions. completed antibiotic course with Tobramycin, course ended on 01/20/17. Continue DuoNebs when necessary supplement O2 to keep O2 sats > 90% Atrial fibrillation plus recent SVT Cardiology signed off, stable rate controlled. Continue Metoprolol 50mg q6hr and Coumadin - confirmed with Dr. Flores patient to continue Coumadin WITHOUT ASA. INR subtherapeutic 2.3 today. Being managed by pharmacy. Anasarca, improving. Continue Lasix 20 mg IV daily. Dysphagia Hypoalbuminemia s/p PEG placement continue Jevity 1.5 through PEG tube with Corby supplementation. Continue TF continuous 60ml per hour Sacral/Coccyx wound Specialty bed ordered, continue Wound care following - per theirs and plastics recs - Daily cleansing the wound with gauze and Dakin's solutions, then applying a nickel-thick portion of santyl to the entire wound bed, then packing with Dakin's soaked gauze. This should be covered with ABD and secured with tape. Anemia, microcytic, hypochromic, stable. iron studies-iron 33, TIBC 307, % sat 10.8, ferritin 346. Continue iron supplementation. stool Hemoccult negative monitor intermittently GI Prophylaxis: Pepcid. DVT prophylaxis: SCDs. Coumadin. Full code. Discussed with the patient, nurse. Discharge Planning Difficult placement. Angela Trejo MD Apr 24, 2017 09:59
[2017-04-24] MEDS: carBAMazepine SUSP 200 MG/10 ML UDC PEG SCH ×2 (11:02→21:33)
[2017-04-24] MEDS: JUVEN POWDER 1 PACK G-TUBE SCH ×2 (11:02→21:33)
[2017-04-24] MEDS: FERROUS SULFATE 300 MG /5ML UDC PEG SCH ×2 (11:02→21:34)
[2017-04-24] MEDS: SENNOSIDES SYRUP 8.8 MG/5 ML CUP G-TUBE SCH ×2 (11:03→21:35)
[2017-04-24] MEDS: FUROSEMIDE 20 MG/2 ML VIAL IV PUSH SCH (11:03)
[2017-04-24] MEDS: BROMOCRIPTINE MESYLATE 2.5 MG TAB PEG SCH ×2 (11:04→21:34)
[2017-04-24] MEDS: ATORVASTATIN 40 MG TAB G-TUBE SCH (11:04)
[2017-04-24] MEDS: FOLIC ACID 1 MG TAB PEG SCH (11:04)
[2017-04-24] MEDS: ASCORBIC ACID 500 MG TAB PEG SCH ×2 (11:04→21:34)
[2017-04-24] MEDS: levETIRAcetam 500 MG/5 ML UDC PEG SCH ×2 (11:04→21:43)
[2017-04-24] MEDS: FAMOTIDINE 20 MG TAB PEG SCH ×2 (11:04→21:34)
[2017-04-24] MEDS: POTASSIUM CHLORIDE 20 MEQ PWD PACKET PEG SCH (11:04)
[2017-04-24] MEDS: POVIDONE IODINE 10% OINT 30 GM TUBE TOPICAL SCH (11:05)
[2017-04-24] MEDS: SODIUM HYPOCHLORITE 0.25% 500 ML BTL TOPICAL SCH (11:06)
[2017-04-24] MEDS: COLLAGENASE OINT 30 GM TUBE TOPICAL SCH (11:06)
[2017-04-24] MEDS: SACUBITRIL/VALSARTAN 24 MG-26 MG TAB PEG SCH ×2 (11:34→21:34)
[2017-04-24] MEDS: SODIUM CHLORIDE 0.9% FLUSH 10 ML FLUSH IV FLUSH SCH ×2 (11:34→21:34)
--- NOTE | 2017-04-24 16:21 | HHI.PR ---
Subjective Remarks 66 YOWF with Rf, s/p trach H/O CVA,Arango Arango disease. On trach collar Mod amount of trach secretions. no fever. No new complaint Objective Vital Signs Vital Signs Date Time Temp Pulse Resp B/P (MAP) Pulse Ox O2 Delivery O2 Flow Rate FiO2 04/24/17 13:57 100 Trach Collar 5.00 28 T-Piece Humidified 04/24/17 12:35 99.5 89 22 121/61 (81) 100 04/24/17 11:32 90 04/24/17 09:10 93 T-piece 5.00 28 04/24/17 09:10 93 T-piece 5.00 28 04/24/17 08:10 99.1 94 21 129/64 (85) 98 04/24/17 04:00 98.2 101 18 124/68 (86) 98 04/24/17 00:00 97.6 108 20 101/58 (72) 100 04/23/17 21:10 100 T-piece 28 04/23/17 20:00 94 04/23/17 20:00 100 Trach Collar 5.00 28 T-Piece Humidified 04/23/17 20:00 99.0 87 20 108/57 (74) 100 04/23/17 19:07 100 Trach Collar 5.00 28 T-Piece Humidified 04/23/17 16:50 98 T-piece 5.00 28 I/O 04/23/17 04/23/17 04/23/17 04/24/17 04/24/17 04/24/17 07:00 15:00 23:00 07:00 15:00 23:00 Intake Total 1538 ml 960 ml 0 ml Output Total 700 ml 1000 ml 450 ml Balance 838 ml -40 ml -450 ml Intake Oral 0 ml Tube Feeding 1138 ml 660 ml Other 400 ml 300 ml Output Urine Total 700 ml 1000 ml 450 ml # Bowel Movements 1 1 Result Diagram: 04/21/1773104/21/17731 Objective Remarks GENERAL: MBMN WF, on Trach collar SKIN: Warm and dry. HEAD: Normocephalic. EYES: No scleral icterus. No injection or drainage. NECK: Supple, trachea midline. No JVD or lymphadenopathy. has trach CARDIOVASCULAR: Regular rate and rhythm without murmurs, gallops, or rubs. RESPIRATORY: Breath sounds equal bilaterally. No accessory muscle use. GASTROINTESTINAL: Abdomen soft, non-tender, nondistended. has PEG MUSCULOSKELETAL: No cyanosis, or edema. BACK: Nontender without obvious deformity. No CVA tenderness. A/P Assessment and Plan RF, S/P Trach CVA Arango arango disease CAD COPD SZ disorder PLAN: Aerosol nebs Cont trach collar supplement 02, keep sat >90%. TF [email or web address] Vernon Marx MD Apr 24, 2017 16:21
[2017-04-24] MEDS: WARFARIN SOD 10 MG TAB PEG SCH (17:37)
[2017-04-25] VITALS (10 sets, daily range): BP systolic 119–152; BP diastolic 58–68; PULSE 84–94; RESP 12–22; TEMP 97.8–99.2; O2SAT 97–100
[2017-04-25] MEDS: METOPROLOL TARTRATE 25 MG TAB G-TUBE SCH ×4 (00:26→18:00)
[2017-04-25] MEDS: HYOSCYAMINE SOLN 0.125 MG/ML 15 ML BTL G-TUBE SCH ×4 (00:27→18:00)
[2017-04-25] MEDS: CHLORHEXIDINE GLUCONATE 2 % 1 PACK (2 CLOTHS) TOP SCH (04:00)
[2017-04-25] MEDS: FREE WATER G-TUBE SCH ×3 (05:12→21:43)
[2017-04-25] MEDS: CHLORHEXIDINE 0.12% (ORAL KIT) 15 ML CUP MT SCH ×2 (08:00→21:43)
[2017-04-25] MEDS: RESP: IPRATROPIUM 0.5 MG/2.5 ML NEB NEB SCH ×4 (08:57→20:03)
[2017-04-25 08:58] LABS: INTERNATIONAL NORMALIZED RATIO 2.3 RATIO; PROTHROMBIN TIME - PATIENT 25.8 SEC (9.8-11.6)
[2017-04-25] MEDS: POVIDONE IODINE 10% OINT 30 GM TUBE TOPICAL SCH (09:00)
[2017-04-25] MEDS: COLLAGENASE OINT 30 GM TUBE TOPICAL SCH (09:00)
[2017-04-25] MEDS: JUVEN POWDER 1 PACK G-TUBE SCH ×2 (09:00→21:43)
[2017-04-25] MEDS: POTASSIUM CHLORIDE 20 MEQ PWD PACKET PEG SCH (09:00)
[2017-04-25] MEDS: ASCORBIC ACID 500 MG TAB PEG SCH ×2 (10:31→21:42)
[2017-04-25] MEDS: ATORVASTATIN 40 MG TAB G-TUBE SCH (10:32)
[2017-04-25] MEDS: carBAMazepine SUSP 200 MG/10 ML UDC PEG SCH ×2 (10:32→21:42)
[2017-04-25] MEDS: FAMOTIDINE 20 MG TAB PEG SCH ×2 (10:32→21:42)
[2017-04-25] MEDS: FOLIC ACID 1 MG TAB PEG SCH (10:32)
[2017-04-25] MEDS: levETIRAcetam 500 MG/5 ML UDC PEG SCH ×2 (10:33→21:41)
[2017-04-25] MEDS: SACUBITRIL/VALSARTAN 24 MG-26 MG TAB PEG SCH ×2 (10:33→21:42)
[2017-04-25] MEDS: SODIUM CHLORIDE 0.9% FLUSH 10 ML FLUSH IV FLUSH SCH ×2 (10:34→21:42)
[2017-04-25] MEDS: FERROUS SULFATE 300 MG /5ML UDC PEG SCH ×2 (10:34→21:41)
[2017-04-25] MEDS: SENNOSIDES SYRUP 8.8 MG/5 ML CUP G-TUBE SCH ×2 (10:34→21:41)
[2017-04-25] MEDS: BROMOCRIPTINE MESYLATE 2.5 MG TAB PEG SCH ×2 (10:34→21:42)
--- NOTE | 2017-04-25 10:39 | HHI.PR ---
Subjective Remarks Coughing, with some secretions in the morning. Satting well. No change at baseline. Objective Vitals Vital Signs Date Time Temp Pulse Resp B/P (MAP) Pulse Ox O2 Delivery O2 Flow Rate FiO2 04/25/17 09:01 100 T-piece 5.00 28 04/25/17 09:00 100 T-piece 5.00 28 04/25/17 08:00 98.2 86 20 152/68 (96) 100 04/25/17 04:00 98.2 94 20 139/66 (90) 100 04/25/17 00:00 99.2 91 22 119/59 (79) 100 04/24/17 21:25 100 T-piece 4.00 28 04/24/17 20:00 Trach Collar 5.00 28 T-Piece Humidified 04/24/17 20:00 89 04/24/17 20:00 99.4 89 21 130/84 (99) 98 04/24/17 16:10 98.5 93 21 127/66 (86) 99 04/24/17 13:57 100 Trach Collar 5.00 28 T-Piece Humidified 04/24/17 12:35 99.5 89 22 121/61 (81) 100 04/24/17 11:32 90 I/O 04/24/17 04/24/17 04/24/17 04/25/17 04/25/17 04/25/17 07:00 15:00 23:00 07:00 15:00 23:00 Intake Total 0 ml 960 ml 1320 ml Output Total 450 ml 650 ml 550 ml Balance -450 ml 310 ml 770 ml Intake Oral 0 ml Tube Feeding 660 ml 720 ml Other 300 ml 600 ml Output Urine Total 450 ml 650 ml 550 ml # Bowel Movements 1 1 Result Diagram: 04/21/1773104/21/17 0732 Objective Remarks GENERAL: Alert, sleepy, eyes open, does not respond to verbal commands. On T piece. SKIN: Warm and dry. HEAD: Normocephalic. EYES: No scleral icterus. No injection or drainage. NECK: Supple, trachea midline. No JVD or lymphadenopathy. CARDIOVASCULAR: Regular rhythm, tachycardic without murmurs, gallops, or rubs. RESPIRATORY: Breath sounds equal bilaterally. No accessory muscle use. GASTROINTESTINAL: Abdomen soft, obese, non-tender, nondistended. MUSCULOSKELETAL: No cyanosis, or edema. Procedures PEG 11/24/2016 Percutaneous tracheostomy. 11/18/2016 Moderate encephalopathy with suggestion of left temporal region cortical irritability. No active seizures. Clinical correlation. Echocardiogram Severe dilated left ventricle. Wall thickness is normal. The left ventricular systolic function is moderately reduced with an estimated ejection fraction in the range of 35-40%. Doppler parameters are consistent with a restrictive left ventricular filling pattern indicative of decreased left ventricular diastolic compliance and increase left atrial pressure (grade 3 diastolic dysfunction). There is severe tricuspid regurgitation. There is severe pulmonary hypertension present ( > 70 mmHg). Severe mitral valve regurgitation. 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 Status: Acute (2) Seizure ICD Code: R56.9 - Unspecified convulsions Status: Acute (3) CVA (cerebral vascular accident) ICD Code: I63.9 - Cerebral infarction, unspecified Status: Acute (4) Respiratory failure, acute ICD Code: J96.00 - Acute respiratory failure, unspecified whether with hypoxia or hypercapnia Status: Acute (5) COPD (chronic obstructive pulmonary disease) ICD Code: J44.9 - Chronic obstructive pulmonary disease, unspecified Status: Chronic (6) Acute hypernatremia ICD Code: E87.0 - Hyperosmolality and hypernatremia Status: Resolved (7) Microcytic anemia ICD Code: D50.9 - Iron deficiency anemia, unspecified Assessment and Plan Ms. Rivas is a 66-year-old female with a history of stroke who was admitted to the [facility] on 11/04/2016 due to difficulty getting her thoughts together. She was found to have multifocal nonhemorrhagic infarctions in the frontal and parietal regions. She was initially awake and following commands with weakness of RLE and some aphasia. She was transferred to [facility] where he had an cerebral angiogram consistent with moyamoya. There were plans to perform extracranial/intracranial bypass. However, she had a seizure and ended up being intubated for status epilepticus 11/09 or 11/10. She was found to have a new right frontal infarct area and she was started on Dilantin and Keppra and it was felt that she would not be a candidate for intervention. She has since undergone PEG placement. Apparently family requested transfer back to [place] because they live locally and wanted her closer to home. Patient remained under critical care medicine until 12/24/2016. Viridans strep bacteremia, resolved Per ID, sputum cx with GNR and staph aureus ? colonization. Urine with Kleb pneumo and E Coli ? colonization Repeat blood cx 03/23 shows no growth in 5 days. on IV Rocephin ended 04/05/17 per ID continue precautions Bilateral frontal CVA Moyamoya - confirmed by arteriogram at [facility] October 2016 Seizure disorder Continue Keppra 1000mg BID Continue Tegretol 200mg q 12h Follow for seizure activity - no recent seizure activity noted Continue Bromocriptine Keppra level 25.3 04/05 Tegretol level 7.1 03/31 Hyperammonemia, resolved. continue to monitor ammonia level as indicated repeat level ordered for 04/12, level was 17. Repeat level 20. Will DC Lactulose. Continue to monitor for any encephalopathy. Will recheck as needed. Hyponatremia, improved. Monitor Na Mixed systolic and diastolic heart failure, stable - Echocardiogram 02/02/17 shows EF 35-40%, grade 3 diastolic dysfunction, severe tricuspid regurgitation, severe pulmonary HTN and severe mitral valve regurgitation. continue Lasix 20mg daily continue on Entresto monitor electrolytes and renal function monitor for s/sxs of fluid overload Chronic respiratory failure COPD Multilobar pneumonia, resolved Pulmonary medicine following, appreciate assistance Status post tracheostomy on 11/24/2016. Currently on T piece. Continue on Levsin prn for secretions. completed antibiotic course with Tobramycin, course ended on 01/20/17. Continue DuoNebs when necessary supplement O2 to keep O2 sats > 90% Atrial fibrillation plus recent SVT Cardiology signed off, stable rate controlled. Continue Metoprolol 50mg q6hr and Coumadin - confirmed with Dr. Flores patient to continue Coumadin WITHOUT ASA. INR subtherapeutic 2.3 today. Being managed by pharmacy. Anasarca, improving. Continue Lasix 20 mg IV daily. Dysphagia Hypoalbuminemia s/p PEG placement continue Jevity 1.5 through PEG tube with Corby supplementation. Continue TF continuous 60ml per hour Sacral/Coccyx wound Specialty bed ordered, continue Wound care following - per theirs and plastics recs - Daily cleansing the wound with gauze and Dakin's solutions, then applying a nickel-thick portion of santyl to the entire wound bed, then packing with Dakin's soaked gauze. This should be covered with ABD and secured with tape. Anemia, microcytic, hypochromic, stable. iron studies-iron 33, TIBC 307, % sat 10.8, ferritin 346. Continue iron supplementation. stool Hemoccult negative monitor intermittently GI Prophylaxis: Pepcid. DVT prophylaxis: SCDs. Coumadin. Full code. Discussed with the patient, nurse. Discharge Planning Difficult placement. Angela Trejo MD Apr 25, 2017 10:39
[2017-04-25] MEDS: FUROSEMIDE 20 MG/2 ML VIAL IV PUSH SCH (10:57)
[2017-04-25] MEDS: WARFARIN SOD 10 MG TAB PEG SCH (16:00)
[2017-04-25] MEDS: SODIUM HYPOCHLORITE 0.25% 500 ML BTL TOPICAL SCH (18:00)
--- NOTE | 2017-04-25 19:47 | HHI.PR ---
Subjective Remarks 66 YOWF with Rf, s/p trach H/O CVA,Arango Arango disease. On trach collar Mod amount of trach secretions. no fever. Objective Vital Signs Vital Signs Date Time Temp Pulse Resp B/P (MAP) Pulse Ox O2 Delivery O2 Flow Rate FiO2 04/25/17 09:01 100 T-piece 5.00 28 04/25/17 09:00 100 T-piece 5.00 28 04/25/17 08:00 98.2 86 20 152/68 (96) 100 04/25/17 04:00 98.2 94 20 139/66 (90) 100 04/25/17 00:00 99.2 91 22 119/59 (79) 100 04/24/17 21:25 100 T-piece 4.00 28 04/24/17 20:00 Trach Collar 5.00 28 T-Piece Humidified 04/24/17 20:00 89 04/24/17 20:00 99.4 89 21 130/84 (99) 98 I/O 04/24/17 04/24/17 04/24/17 04/25/17 04/25/17 04/25/17 07:00 15:00 23:00 07:00 15:00 23:00 Intake Total 0 ml 960 ml 1320 ml Output Total 450 ml 650 ml 550 ml Balance -450 ml 310 ml 770 ml Intake Oral 0 ml Tube Feeding 660 ml 720 ml Other 300 ml 600 ml Output Urine Total 450 ml 650 ml 550 ml # Bowel Movements 1 1 Result Diagram: 04/21/17 0732 04/21/17 0732 Objective Remarks GENERAL: MBMN WF, on Trach collar SKIN: Warm and dry. HEAD: Normocephalic. EYES: No scleral icterus. No injection or drainage. NECK: Supple, trachea midline. No JVD or lymphadenopathy. has trach CARDIOVASCULAR: Regular rate and rhythm without murmurs, gallops, or rubs. RESPIRATORY: Breath sounds equal bilaterally. No accessory muscle use. GASTROINTESTINAL: Abdomen soft, non-tender, nondistended. has PEG MUSCULOSKELETAL: No cyanosis, or edema. BACK: Nontender without obvious deformity. No CVA tenderness. A/P Assessment and Plan RF, S/P Trach CVA Arango arango disease CAD COPD SZ disorder PLAN: Aerosol nebs Cont trach collar supplement 02, keep sat >90%. TF [email or web address] Cont same treatment Vernon Marx MD Apr 25, 2017 19:47
[2017-04-26] VITALS (9 sets, daily range): BP systolic 108–123; BP diastolic 50–69; PULSE 76–95; RESP 16–20; TEMP 97.4–98.2; O2SAT 98–100
[2017-04-26] MEDS: CHLORHEXIDINE GLUCONATE 2 % 1 PACK (2 CLOTHS) TOP SCH (03:56)
[2017-04-26] MEDS: METOPROLOL TARTRATE 25 MG TAB G-TUBE SCH ×4 (06:02→18:00)
[2017-04-26] MEDS: FREE WATER G-TUBE SCH ×3 (06:02→21:01)
[2017-04-26] MEDS: HYOSCYAMINE SOLN 0.125 MG/ML 15 ML BTL G-TUBE SCH ×4 (06:02→18:00)
[2017-04-26] MEDS: CHLORHEXIDINE 0.12% (ORAL KIT) 15 ML CUP MT SCH ×2 (08:00→20:00)
[2017-04-26] MEDS: RESP: IPRATROPIUM 0.5 MG/2.5 ML NEB NEB SCH ×4 (08:18→19:03)
[2017-04-26] MEDS: JUVEN POWDER 1 PACK G-TUBE SCH ×2 (09:00→21:02)
[2017-04-26] MEDS: POTASSIUM CHLORIDE 20 MEQ PWD PACKET PEG SCH (09:00)
[2017-04-26] MEDS: POVIDONE IODINE 10% OINT 30 GM TUBE TOPICAL SCH (09:00)
[2017-04-26] MEDS: FOLIC ACID 1 MG TAB PEG SCH (10:25)
[2017-04-26] MEDS: FERROUS SULFATE 300 MG /5ML UDC PEG SCH ×2 (10:25→20:59)
[2017-04-26] MEDS: levETIRAcetam 500 MG/5 ML UDC PEG SCH ×2 (10:25→21:01)
[2017-04-26] MEDS: SENNOSIDES SYRUP 8.8 MG/5 ML CUP G-TUBE SCH ×2 (10:25→21:01)
[2017-04-26] MEDS: FUROSEMIDE 20 MG/2 ML VIAL IV PUSH SCH (10:25)
[2017-04-26] MEDS: ATORVASTATIN 40 MG TAB G-TUBE SCH (10:26)
[2017-04-26] MEDS: SODIUM CHLORIDE 0.9% FLUSH 10 ML FLUSH IV FLUSH SCH ×2 (10:26→21:02)
[2017-04-26] MEDS: SACUBITRIL/VALSARTAN 24 MG-26 MG TAB PEG SCH ×2 (10:26→21:00)
[2017-04-26] MEDS: ASCORBIC ACID 500 MG TAB PEG SCH ×2 (10:27→21:00)
[2017-04-26] MEDS: carBAMazepine SUSP 200 MG/10 ML UDC PEG SCH ×2 (10:27→20:59)
[2017-04-26] MEDS: BROMOCRIPTINE MESYLATE 2.5 MG TAB PEG SCH ×2 (10:27→21:00)
[2017-04-26] MEDS: FAMOTIDINE 20 MG TAB PEG SCH ×2 (10:27→21:00)
[2017-04-26 10:48] LABS: INTERNATIONAL NORMALIZED RATIO 2.6 RATIO; PROTHROMBIN TIME - PATIENT 29.4 SEC (9.8-11.6)
--- NOTE | 2017-04-26 10:51 | HHI.PR ---
Subjective Remarks Patient appears in nad. No acute events overnight, at baseline. VSS Objective Vitals Vital Signs Date Time Temp Pulse Resp B/P (MAP) Pulse Ox O2 Delivery O2 Flow Rate FiO2 04/26/17 08:20 100 T-piece 4.00 28 04/26/17 08:20 100 T-piece 4.00 28 04/26/17 08:00 98.1 82 20 121/57 (78) 100 04/26/17 05:59 97.6 81 16 123/59 (80) 100 04/26/17 00:00 98.0 87 18 108/69 (82) 100 04/25/17 20:05 100 T-piece 5.00 28 04/25/17 20:00 98.5 90 20 152/66 (94) 100 04/25/17 20:00 84 04/25/17 20:00 100 Trach Collar 5.00 28 T-Piece Humidified 04/25/17 16:00 98.2 91 20 122/58 (79) 99 04/25/17 12:00 97.8 90 20 121/60 (80) 97 I/O 04/25/17 04/25/17 04/25/17 04/26/17 04/26/17 04/26/17 07:00 15:00 23:00 07:00 15:00 23:00 Intake Total 1320 ml 0 ml Output Total 550 ml 1000 ml 600 ml Balance 770 ml -1000 ml -600 ml Intake Oral 0 ml Tube Feeding 720 ml Other 600 ml Output Urine Total 550 ml 1000 ml 600 ml # Voids 3 # Bowel Movements 1 0 Objective Remarks GENERAL: Alert, sleepy, eyes open, does not respond to verbal commands. On T piece. SKIN: Warm and dry. HEAD: Normocephalic. EYES: No scleral icterus. No injection or drainage. NECK: Supple, trachea midline. No JVD or lymphadenopathy. CARDIOVASCULAR: Regular rhythm, tachycardic without murmurs, gallops, or rubs. RESPIRATORY: Breath sounds equal bilaterally. No accessory muscle use. GASTROINTESTINAL: Abdomen soft, obese, non-tender, nondistended. MUSCULOSKELETAL: No cyanosis, or edema. Procedures PEG 11/24/2016 Percutaneous tracheostomy. 11/18/2016 Moderate encephalopathy with suggestion of left temporal region cortical irritability. No active seizures. Clinical correlation. Echocardiogram Severe dilated left ventricle. Wall thickness is normal. The left ventricular systolic function is moderately reduced with an estimated ejection fraction in the range of 35-40%. Doppler parameters are consistent with a restrictive left ventricular filling pattern indicative of decreased left ventricular diastolic compliance and increase left atrial pressure (grade 3 diastolic dysfunction). There is severe tricuspid regurgitation. There is severe pulmonary hypertension present ( > 70 mmHg). Severe mitral valve regurgitation. 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 Status: Acute (2) Seizure ICD Code: R56.9 - Unspecified convulsions Status: Acute (3) CVA (cerebral vascular accident) ICD Code: I63.9 - Cerebral infarction, unspecified Status: Acute (4) Respiratory failure, acute ICD Code: J96.00 - Acute respiratory failure, unspecified whether with hypoxia or hypercapnia Status: Acute (5) COPD (chronic obstructive pulmonary disease) ICD Code: J44.9 - Chronic obstructive pulmonary disease, unspecified Status: Chronic (6) Acute hypernatremia ICD Code: E87.0 - Hyperosmolality and hypernatremia Status: Resolved (7) Microcytic anemia ICD Code: D50.9 - Iron deficiency anemia, unspecified Assessment and Plan Ms. Rivas is a 66-year-old female with a history of stroke who was admitted to the [facility] on 11/04/2016 due to difficulty getting her thoughts together. She was found to have multifocal nonhemorrhagic infarctions in the frontal and parietal regions. She was initially awake and following commands with weakness of RLE and some aphasia. She was transferred to [facility] where he had an cerebral angiogram consistent with moyamoya. There were plans to perform extracranial/intracranial bypass. However, she had a seizure and ended up being intubated for status epilepticus 11/09 or 11/10. She was found to have a new right frontal infarct area and she was started on Dilantin and Keppra and it was felt that she would not be a candidate for intervention. She has since undergone PEG placement. Apparently family requested transfer back to [place] because they live locally and wanted her closer to home. Patient remained under critical care medicine until 12/24/2016. Viridans strep bacteremia, resolved Per ID, sputum cx with GNR and staph aureus ? colonization. Urine with Kleb pneumo and E Coli ? colonization Repeat blood cx 03/23 shows no growth in 5 days. on IV Rocephin ended 04/05/17 per ID continue precautions Bilateral frontal CVA Moyamoya - confirmed by arteriogram at [facility] October 2016 Seizure disorder Continue Keppra 1000mg BID Continue Tegretol 200mg q 12h Follow for seizure activity - no recent seizure activity noted Continue Bromocriptine Keppra level 25.3 04/05 Tegretol level 7.1 03/31 Hyperammonemia, resolved. continue to monitor ammonia level as indicated repeat level ordered for 04/12, level was 17. Repeat level 20. Will DC Lactulose. Continue to monitor for any encephalopathy. Will recheck as needed. Hyponatremia, improved. Monitor Na Mixed systolic and diastolic heart failure, stable - Echocardiogram 02/02/17 shows EF 35-40%, grade 3 diastolic dysfunction, severe tricuspid regurgitation, severe pulmonary HTN and severe mitral valve regurgitation. continue Lasix 20mg daily continue on Entresto monitor electrolytes and renal function monitor for s/sxs of fluid overload Chronic respiratory failure COPD Multilobar pneumonia, resolved Pulmonary medicine following, appreciate assistance Status post tracheostomy on 11/24/2016. Currently on T piece. Continue on Levsin prn for secretions. completed antibiotic course with Tobramycin, course ended on 01/20/17. Continue DuoNebs when necessary supplement O2 to keep O2 sats > 90% Atrial fibrillation plus recent SVT Cardiology signed off, stable rate controlled. Continue Metoprolol 50mg q6hr and Coumadin - confirmed with Dr. Flores patient to continue Coumadin WITHOUT ASA. INR subtherapeutic 2.3 today. Being managed by pharmacy. Anasarca, improving. Continue Lasix 20 mg IV daily. Dysphagia Hypoalbuminemia s/p PEG placement continue Jevity 1.5 through PEG tube with Corby supplementation. Continue TF continuous 60ml per hour Sacral/Coccyx wound Specialty bed ordered, continue Wound care following - per theirs and plastics recs - Daily cleansing the wound with gauze and Dakin's solutions, then applying a nickel-thick portion of santyl to the entire wound bed, then packing with Dakin's soaked gauze. This should be covered with ABD and secured with tape. Anemia, microcytic, hypochromic, stable. iron studies-iron 33, TIBC 307, % sat 10.8, ferritin 346. Continue iron supplementation. stool Hemoccult negative monitor intermittently GI Prophylaxis: Pepcid. DVT prophylaxis: SCDs. Coumadin. Full code. Discussed with the patient, nurse. Discharge Planning Difficult placement. Angela Trejo MD Apr 26, 2017 10:51
[2017-04-26] MEDS: WARFARIN SOD 10 MG TAB PEG SCH (16:00)
[2017-04-26] MEDS: SODIUM HYPOCHLORITE 0.25% 500 ML BTL TOPICAL SCH (16:30)
[2017-04-26] MEDS: COLLAGENASE OINT 30 GM TUBE TOPICAL SCH (18:00)
--- NOTE | 2017-04-26 18:02 | HHI.PR ---
Subjective Remarks 66 YOWF with Rf, s/p trach H/O CVA,Arango Arango disease. On trach collar Mod amount of trach secretions. no fever. Tolerates TF Objective Vital Signs Vital Signs Date Time Temp Pulse Resp B/P (MAP) Pulse Ox O2 Delivery O2 Flow Rate FiO2 04/26/17 15:35 98 T-piece 6.00 28 04/26/17 15:35 98 T-piece 6.00 28 04/26/17 08:45 76 04/26/17 08:20 100 T-piece 4.00 28 04/26/17 08:20 100 T-piece 4.00 28 04/26/17 08:00 98.1 82 20 121/57 (78) 100 04/26/17 05:59 97.6 81 16 123/59 (80) 100 04/26/17 00:00 98.0 87 18 108/69 (82) 100 04/25/17 20:05 100 T-piece 5.00 28 04/25/17 20:00 98.5 90 20 152/66 (94) 100 04/25/17 20:00 84 04/25/17 20:00 100 Trach Collar 5.00 28 T-Piece Humidified I/O 04/25/17 04/25/17 04/25/17 04/26/17 04/26/17 04/26/17 07:00 15:00 23:00 07:00 15:00 23:00 Intake Total 1320 ml 0 ml Output Total 550 ml 1000 ml 600 ml Balance 770 ml -1000 ml -600 ml Intake Oral 0 ml Tube Feeding 720 ml Other 600 ml Output Urine Total 550 ml 1000 ml 600 ml # Voids 3 # Bowel Movements 1 0 Objective Remarks GENERAL: MBMN WF, on Trach collar SKIN: Warm and dry. HEAD: Normocephalic. EYES: No scleral icterus. No injection or drainage. NECK: Supple, trachea midline. No JVD or lymphadenopathy. has trach CARDIOVASCULAR: Regular rate and rhythm without murmurs, gallops, or rubs. RESPIRATORY: Breath sounds equal bilaterally. No accessory muscle use. GASTROINTESTINAL: Abdomen soft, non-tender, nondistended. has PEG MUSCULOSKELETAL: No cyanosis, or edema. BACK: Nontender without obvious deformity. No CVA tenderness. A/P Assessment and Plan RF, S/P Trach CVA Arango arango disease CAD COPD SZ disorder PLAN: Aerosol nebs Cont trach collar supplement 02, keep sat >90%. TF Isabella.Vernon West MD Apr 26, 2017 18:02
[2017-04-27] VITALS (8 sets, daily range): BP systolic 119–127; BP diastolic 56–72; PULSE 78–98; RESP 18–20; TEMP 96.6–99.4; O2SAT 96–100
[2017-04-27] MEDS: METOPROLOL TARTRATE 25 MG TAB G-TUBE SCH ×4 (00:27→16:52)
[2017-04-27] MEDS: HYOSCYAMINE SOLN 0.125 MG/ML 15 ML BTL G-TUBE SCH ×4 (00:28→16:52)
[2017-04-27] MEDS: CHLORHEXIDINE GLUCONATE 2 % 1 PACK (2 CLOTHS) TOP SCH (02:32)
[2017-04-27] MEDS: FREE WATER G-TUBE SCH ×3 (05:47→20:49)
[2017-04-27] MEDS: RESP: IPRATROPIUM 0.5 MG/2.5 ML NEB NEB SCH ×4 (07:50→19:16)
[2017-04-27] MEDS: CHLORHEXIDINE 0.12% (ORAL KIT) 15 ML CUP MT SCH ×2 (08:00→20:46)
[2017-04-27] MEDS: POTASSIUM CHLORIDE 20 MEQ PWD PACKET PEG SCH (09:00)
[2017-04-27] MEDS: BROMOCRIPTINE MESYLATE 2.5 MG TAB PEG SCH ×2 (09:00→20:48)
[2017-04-27] MEDS: SODIUM CHLORIDE 0.9% FLUSH 10 ML FLUSH IV FLUSH SCH ×2 (09:00→20:48)
[2017-04-27] MEDS: COLLAGENASE OINT 30 GM TUBE TOPICAL SCH (09:00)
[2017-04-27] MEDS: SODIUM HYPOCHLORITE 0.25% 500 ML BTL TOPICAL SCH (09:00)
[2017-04-27] MEDS: JUVEN POWDER 1 PACK G-TUBE SCH ×2 (09:00→20:47)
[2017-04-27] MEDS: POVIDONE IODINE 10% OINT 30 GM TUBE TOPICAL SCH (09:00)
[2017-04-27] MEDS: carBAMazepine SUSP 200 MG/10 ML UDC PEG SCH ×2 (09:10→20:47)
[2017-04-27] MEDS: FERROUS SULFATE 300 MG /5ML UDC PEG SCH ×2 (09:10→20:47)
[2017-04-27] MEDS: ATORVASTATIN 40 MG TAB G-TUBE SCH (09:11)
[2017-04-27] MEDS: SENNOSIDES SYRUP 8.8 MG/5 ML CUP G-TUBE SCH ×2 (09:11→20:47)
[2017-04-27] MEDS: SACUBITRIL/VALSARTAN 24 MG-26 MG TAB PEG SCH ×2 (09:11→20:47)
[2017-04-27] MEDS: ASCORBIC ACID 500 MG TAB PEG SCH ×2 (09:11→20:48)
[2017-04-27] MEDS: FAMOTIDINE 20 MG TAB PEG SCH ×2 (09:12→20:48)
[2017-04-27] MEDS: FUROSEMIDE 20 MG/2 ML VIAL IV PUSH SCH (09:12)
[2017-04-27] MEDS: FOLIC ACID 1 MG TAB PEG SCH (09:14)
[2017-04-27] MEDS: levETIRAcetam 500 MG/5 ML UDC PEG SCH ×2 (09:14→20:49)
[2017-04-27 09:31] LABS: INTERNATIONAL NORMALIZED RATIO 2.5 RATIO; PROTHROMBIN TIME - PATIENT 28.8 SEC (9.8-11.6)
--- NOTE | 2017-04-27 12:04 | HHI.PR ---
Subjective Remarks Patient in nad, appears at baseline. Tracking more today. Normal BM being changed. VSS. Objective Vitals Vital Signs Date Time Temp Pulse Resp B/P (MAP) Pulse Ox O2 Delivery O2 Flow Rate FiO2 04/27/17 08:00 96.6 93 20 123/63 (83) 100 04/27/17 07:51 97 T-piece 28 04/27/17 04:00 98.6 92 18 121/58 (79) 100 04/27/17 00:00 98.4 88 18 119/59 (79) 100 04/26/17 20:00 97.6 95 18 108/50 (69) 100 04/26/17 16:00 98.2 91 20 121/56 (77) 100 04/26/17 15:35 98 T-piece 6.00 28 04/26/17 15:35 98 T-piece 6.00 28 I/O 04/26/17 04/26/17 04/26/17 04/27/17 04/27/17 04/27/17 07:00 15:00 23:00 07:00 15:00 23:00 Intake Total 0 ml 1050 ml Output Total 600 ml 800 ml 300 ml Balance -600 ml -800 ml 750 ml Intake Oral 0 ml Tube Feeding 650 ml Other 400 ml Output Urine Total 600 ml 800 ml 300 ml # Voids 3 # Bowel Movements 0 1 Objective Remarks GENERAL: Alert, sleepy, eyes open, does not respond to verbal commands. On T piece. SKIN: Warm and dry. HEAD: Normocephalic. EYES: No scleral icterus. No injection or drainage. NECK: Supple, trachea midline. No JVD or lymphadenopathy. CARDIOVASCULAR: Regular rhythm, tachycardic without murmurs, gallops, or rubs. RESPIRATORY: Breath sounds equal bilaterally. No accessory muscle use. GASTROINTESTINAL: Abdomen soft, obese, non-tender, nondistended. MUSCULOSKELETAL: No cyanosis, or edema. Procedures PEG 11/24/2016 Percutaneous tracheostomy. 11/18/2016 Moderate encephalopathy with suggestion of left temporal region cortical irritability. No active seizures. Clinical correlation. Echocardiogram Severe dilated left ventricle. Wall thickness is normal. The left ventricular systolic function is moderately reduced with an estimated ejection fraction in the range of 35-40%. Doppler parameters are consistent with a restrictive left ventricular filling pattern indicative of decreased left ventricular diastolic compliance and increase left atrial pressure (grade 3 diastolic dysfunction). There is severe tricuspid regurgitation. There is severe pulmonary hypertension present ( > 70 mmHg). Severe mitral valve regurgitation. 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 Status: Acute (2) Seizure ICD Code: R56.9 - Unspecified convulsions Status: Acute (3) CVA (cerebral vascular accident) ICD Code: I63.9 - Cerebral infarction, unspecified Status: Acute (4) Respiratory failure, acute ICD Code: J96.00 - Acute respiratory failure, unspecified whether with hypoxia or hypercapnia Status: Acute (5) COPD (chronic obstructive pulmonary disease) ICD Code: J44.9 - Chronic obstructive pulmonary disease, unspecified Status: Chronic (6) Acute hypernatremia ICD Code: E87.0 - Hyperosmolality and hypernatremia Status: Resolved (7) Microcytic anemia ICD Code: D50.9 - Iron deficiency anemia, unspecified Assessment and Plan Ms. Rivas is a 66-year-old female with a history of stroke who was admitted to the [facility] on 11/04/2016 due to difficulty getting her thoughts together. She was found to have multifocal nonhemorrhagic infarctions in the frontal and parietal regions. She was initially awake and following commands with weakness of RLE and some aphasia. She was transferred to [facility] where he had an cerebral angiogram consistent with moyamoya. There were plans to perform extracranial/intracranial bypass. However, she had a seizure and ended up being intubated for status epilepticus 11/09 or 11/10. She was found to have a new right frontal infarct area and she was started on Dilantin and Keppra and it was felt that she would not be a candidate for intervention. She has since undergone PEG placement. Apparently family requested transfer back to [place] because they live locally and wanted her closer to home. Patient remained under critical care medicine until 12/24/2016. Viridans strep bacteremia, resolved Per ID, sputum cx with GNR and staph aureus ? colonization. Urine with Kleb pneumo and E Coli ? colonization Repeat blood cx 03/23 shows no growth in 5 days. on IV Rocephin ended 04/05/17 per ID continue precautions Bilateral frontal CVA Moyamoya - confirmed by arteriogram at [facility] October 2016 Seizure disorder Continue Keppra 1000mg BID Continue Tegretol 200mg q 12h Follow for seizure activity - no recent seizure activity noted Continue Bromocriptine Keppra level 25.3 04/05 Tegretol level 7.1 03/31 Hyperammonemia, resolved. continue to monitor ammonia level as indicated repeat level ordered for 04/12, level was 17. Repeat level 20. Will DC Lactulose. Continue to monitor for any encephalopathy. Will recheck as needed. Hyponatremia, improved. Monitor Na Mixed systolic and diastolic heart failure, stable - Echocardiogram 02/02/17 shows EF 35-40%, grade 3 diastolic dysfunction, severe tricuspid regurgitation, severe pulmonary HTN and severe mitral valve regurgitation. continue Lasix 20mg daily continue on Entresto monitor electrolytes and renal function monitor for s/sxs of fluid overload Chronic respiratory failure COPD Multilobar pneumonia, resolved Pulmonary medicine following, appreciate assistance Status post tracheostomy on 11/24/2016. Currently on T piece. Continue on Levsin prn for secretions. completed antibiotic course with Tobramycin, course ended on 01/20/17. Continue DuoNebs when necessary supplement O2 to keep O2 sats > 90% Atrial fibrillation plus recent SVT Cardiology signed off, stable rate controlled. Continue Metoprolol 50mg q6hr and Coumadin - confirmed with Dr. Flores patient to continue Coumadin WITHOUT ASA. INR subtherapeutic 2.3 today. Being managed by pharmacy. Anasarca, improving. Continue Lasix 20 mg IV daily. Dysphagia Hypoalbuminemia s/p PEG placement continue Jevity 1.5 through PEG tube with Corby supplementation. Continue TF continuous 60ml per hour Sacral/Coccyx wound Specialty bed ordered, continue Wound care following - per theirs and plastics recs - Daily cleansing the wound with gauze and Dakin's solutions, then applying a nickel-thick portion of santyl to the entire wound bed, then packing with Dakin's soaked gauze. This should be covered with ABD and secured with tape. Anemia, microcytic, hypochromic, stable. iron studies-iron 33, TIBC 307, % sat 10.8, ferritin 346. Continue iron supplementation. stool Hemoccult negative monitor intermittently GI Prophylaxis: Pepcid. DVT prophylaxis: SCDs. Coumadin. Full code. Discussed with the patient, nurse. Discharge Planning Difficult placement. Angela Trejo MD Apr 27, 2017 12:04
[2017-04-27] MEDS: WARFARIN SOD 10 MG TAB PEG SCH (16:52)
--- NOTE | 2017-04-27 18:59 | HHI.PR ---
Subjective Remarks 66 YOWF with Rf, s/p trach H/O CVA,Arango Arango disease. On trach collar Mod amount of trach secretions. no fever. Tolerates TF DW RN Autumn' sometime she tracks" Objective Vital Signs Vital Signs Date Time Temp Pulse Resp B/P (MAP) Pulse Ox O2 Delivery O2 Flow Rate FiO2 04/27/17 16:00 96.7 98 20 126/56 (79) 100 04/27/17 15:46 98 T-piece 6.00 28 04/27/17 12:00 96.7 93 20 121/64 (83) 98 04/27/17 08:00 96 Trach Collar 6.00 28 T-Piece Humidified 04/27/17 08:00 78 04/27/17 08:00 96.6 93 20 123/63 (83) 100 04/27/17 07:51 97 T-piece 28 04/27/17 04:00 98.6 92 18 121/58 (79) 100 04/27/17 00:00 98.4 88 18 119/59 (79) 100 04/26/17 20:00 97.6 95 18 108/50 (69) 100 I/O 04/26/17 04/26/17 04/26/17 04/27/17 04/27/17 04/27/17 07:00 15:00 23:00 07:00 15:00 23:00 Intake Total 0 ml 1050 ml 0 ml 1020 ml Output Total 600 ml 800 ml 300 ml 900 ml Balance -600 ml -800 ml 750 ml -900 ml 1020 ml Intake Oral 0 ml 0 ml Tube Feeding 650 ml 720 ml Other 400 ml 300 ml Output Urine Total 600 ml 800 ml 300 ml 900 ml # Voids 3 # Bowel Movements 0 1 1 Objective Remarks GENERAL: MBMN WF, on Trach collar SKIN: Warm and dry. HEAD: Normocephalic. EYES: No scleral icterus. No injection or drainage. NECK: Supple, trachea midline. No JVD or lymphadenopathy. has trach CARDIOVASCULAR: Regular rate and rhythm without murmurs, gallops, or rubs. RESPIRATORY: Breath sounds equal bilaterally. No accessory muscle use. GASTROINTESTINAL: Abdomen soft, non-tender, nondistended. has PEG MUSCULOSKELETAL: No cyanosis, or edema. BACK: Nontender without obvious deformity. No CVA tenderness. A/P Assessment and Plan RF, S/P Trach CVA Arango arango disease CAD COPD SZ disorder PLAN: Aerosol nebs Cont trach collar supplement 02, keep sat >90%. SHAWN Mason.fernanda CHAVIS RN. Vernon Maxr MD Apr 27, 2017 18:59
[2017-04-28] VITALS (8 sets, daily range): BP systolic 114–127; BP diastolic 57–69; PULSE 86–100; RESP 18–20; TEMP 98.2–99; O2SAT 97–100
[2017-04-28] MEDS: METOPROLOL TARTRATE 25 MG TAB G-TUBE SCH ×4 (00:01→16:53)
[2017-04-28] MEDS: CHLORHEXIDINE GLUCONATE 2 % 1 PACK (2 CLOTHS) TOP SCH (00:01)
[2017-04-28] MEDS: HYOSCYAMINE SOLN 0.125 MG/ML 15 ML BTL G-TUBE SCH ×4 (05:39→16:53)
[2017-04-28] MEDS: FREE WATER G-TUBE SCH ×3 (05:39→21:00)
[2017-04-28] MEDS: RESP: IPRATROPIUM 0.5 MG/2.5 ML NEB NEB SCH ×4 (07:47→19:02)
[2017-04-28] MEDS: CHLORHEXIDINE 0.12% (ORAL KIT) 15 ML CUP MT SCH ×2 (08:00→20:59)
[2017-04-28 08:44] LABS: INTERNATIONAL NORMALIZED RATIO 2.2 RATIO; PROTHROMBIN TIME - PATIENT 25.7 SEC (9.8-11.6)
[2017-04-28] MEDS: FUROSEMIDE 20 MG/2 ML VIAL IV PUSH SCH ×2 (09:00→09:55)
[2017-04-28] MEDS: levETIRAcetam 500 MG/5 ML UDC PEG SCH ×2 (09:00→20:56)
[2017-04-28] MEDS: SODIUM CHLORIDE 0.9% FLUSH 10 ML FLUSH IV FLUSH SCH ×2 (09:00→20:57)
[2017-04-28] MEDS: JUVEN POWDER 1 PACK G-TUBE SCH ×2 (09:00→20:58)
--- NOTE | 2017-04-28 09:14 | HHI.PR ---
Subjective Remarks Patient in nad, opens eyes. VSS. no events overnight Objective Vitals Vital Signs Date Time Temp Pulse Resp B/P (MAP) Pulse Ox O2 Delivery O2 Flow Rate FiO2 04/28/17 08:00 98.6 100 20 127/66 (86) 100 04/28/17 07:45 99 T-piece 28 04/28/17 04:00 Trach Collar 6.00 28 T-Piece 04/28/17 04:00 98.2 91 18 117/57 (77) 97 04/28/17 00:00 Trach Collar 6.00 28 T-Piece Humidified 04/28/17 00:00 98.4 86 18 121/69 (86) 100 04/27/17 20:00 99.4 88 18 127/72 (90) 96 04/27/17 20:00 92 04/27/17 20:00 Trach Collar 6.00 28 T-Piece Humidified 04/27/17 16:00 96.7 98 20 126/56 (79) 100 04/27/17 15:46 98 T-piece 6.00 28 04/27/17 12:00 96.7 93 20 121/64 (83) 98 I/O 04/27/17 04/27/17 04/27/17 04/28/17 04/28/17 04/28/17 07:00 15:00 23:00 07:00 15:00 23:00 Intake Total 1050 ml 0 ml 1020 ml 1338 ml Output Total 300 ml 900 ml 850 ml Balance 750 ml -900 ml 1020 ml 488 ml Intake Oral 0 ml 0 ml Tube Feeding 650 ml 720 ml 738 ml Other 400 ml 300 ml 600 ml Output Urine Total 300 ml 900 ml 850 ml # Bowel Movements 1 1 Objective Remarks GENERAL: Alert, sleepy, eyes open, does not respond to verbal commands. On T piece. SKIN: Warm and dry. HEAD: Normocephalic. EYES: No scleral icterus. No injection or drainage. NECK: Supple, trachea midline. No JVD or lymphadenopathy. CARDIOVASCULAR: Regular rhythm, tachycardic without murmurs, gallops, or rubs. RESPIRATORY: Breath sounds equal bilaterally. No accessory muscle use. GASTROINTESTINAL: Abdomen soft, obese, non-tender, nondistended. MUSCULOSKELETAL: No cyanosis, or edema. Procedures PEG 11/24/2016 Percutaneous tracheostomy. 11/18/2016 Moderate encephalopathy with suggestion of left temporal region cortical irritability. No active seizures. Clinical correlation. Echocardiogram Severe dilated left ventricle. Wall thickness is normal. The left ventricular systolic function is moderately reduced with an estimated ejection fraction in the range of 35-40%. Doppler parameters are consistent with a restrictive left ventricular filling pattern indicative of decreased left ventricular diastolic compliance and increase left atrial pressure (grade 3 diastolic dysfunction). There is severe tricuspid regurgitation. There is severe pulmonary hypertension present ( > 70 mmHg). Severe mitral valve regurgitation. 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 Status: Acute (2) Seizure ICD Code: R56.9 - Unspecified convulsions Status: Acute (3) CVA (cerebral vascular accident) ICD Code: I63.9 - Cerebral infarction, unspecified Status: Acute (4) Respiratory failure, acute ICD Code: J96.00 - Acute respiratory failure, unspecified whether with hypoxia or hypercapnia Status: Acute (5) COPD (chronic obstructive pulmonary disease) ICD Code: J44.9 - Chronic obstructive pulmonary disease, unspecified Status: Chronic (6) Acute hypernatremia ICD Code: E87.0 - Hyperosmolality and hypernatremia Status: Resolved (7) Microcytic anemia ICD Code: D50.9 - Iron deficiency anemia, unspecified Assessment and Plan Ms. Rivas is a 66-year-old female with a history of stroke who was admitted to the [facility] on 11/04/2016 due to difficulty getting her thoughts together. She was found to have multifocal nonhemorrhagic infarctions in the frontal and parietal regions. She was initially awake and following commands with weakness of RLE and some aphasia. She was transferred to [facility] where he had an cerebral angiogram consistent with moyamoya. There were plans to perform extracranial/intracranial bypass. However, she had a seizure and ended up being intubated for status epilepticus 11/09 or 11/10. She was found to have a new right frontal infarct area and she was started on Dilantin and Keppra and it was felt that she would not be a candidate for intervention. She has since undergone PEG placement. Apparently family requested transfer back to [place] because they live locally and wanted her closer to home. Patient remained under critical care medicine until 12/24/2016. Viridans strep bacteremia, resolved Per ID, sputum cx with GNR and staph aureus ? colonization. Urine with Kleb pneumo and E Coli ? colonization Repeat blood cx 03/23 shows no growth in 5 days. 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 continue to monitor ammonia level as indicated repeat level ordered for 04/12, level was 17. Repeat level 20. Will DC Lactulose. Continue to monitor for any encephalopathy. Will recheck as needed. Hyponatremia, improved. Monitor Na Mixed systolic and diastolic heart failure, stable - Echocardiogram 02/02/17 shows EF 35-40%, grade 3 diastolic dysfunction, severe tricuspid regurgitation, severe pulmonary HTN and severe mitral valve regurgitation. continue Lasix 20mg daily continue on Entresto monitor electrolytes and renal function monitor for s/sxs of fluid overload Chronic respiratory failure COPD Multilobar pneumonia, resolved Pulmonary medicine following, appreciate assistance Status post tracheostomy on 11/24/2016. Currently on T piece. Continue on Levsin prn for secretions. completed antibiotic course with Tobramycin, course ended on 01/20/17. Continue DuoNebs when necessary supplement O2 to keep O2 sats > 90% Atrial fibrillation plus recent SVT Cardiology signed off, stable rate controlled. Continue Metoprolol 50mg q6hr and Coumadin - confirmed with Dr. Flores patient to continue Coumadin WITHOUT ASA. INR subtherapeutic 2.3 today. Being managed by pharmacy. Anasarca, improving. Continue Lasix 20 mg IV daily. Dysphagia Hypoalbuminemia s/p PEG placement continue Jevity 1.5 through PEG tube with Corby supplementation. Continue TF continuous 60ml per hour Sacral/Coccyx wound Specialty bed ordered, continue Wound care following - per theirs and plastics recs - Daily cleansing the wound with gauze and Dakin's solutions, then applying a nickel-thick portion of santyl to the entire wound bed, then packing with Dakin's soaked gauze. This should be covered with ABD and secured with tape. Anemia, microcytic, hypochromic, stable. iron studies-iron 33, TIBC 307, % sat 10.8, ferritin 346. Continue iron supplementation. stool Hemoccult negative monitor intermittently GI Prophylaxis: Pepcid. DVT prophylaxis: SCDs. Coumadin. Full code. Discussed with the patient, nurse. Discharge Planning Difficult placement. Angela Trejo MD Apr 28, 2017 09:14
[2017-04-28] MEDS: SENNOSIDES SYRUP 8.8 MG/5 ML CUP G-TUBE SCH ×2 (09:53→20:57)
[2017-04-28] MEDS: BROMOCRIPTINE MESYLATE 2.5 MG TAB PEG SCH ×2 (09:54→20:57)
[2017-04-28] MEDS: FERROUS SULFATE 300 MG /5ML UDC PEG SCH ×2 (09:54→20:56)
[2017-04-28] MEDS: carBAMazepine SUSP 200 MG/10 ML UDC PEG SCH ×2 (09:54→20:56)
[2017-04-28] MEDS: FAMOTIDINE 20 MG TAB PEG SCH ×2 (09:54→20:57)
[2017-04-28] MEDS: ASCORBIC ACID 500 MG TAB PEG SCH ×2 (09:54→20:56)
[2017-04-28] MEDS: SACUBITRIL/VALSARTAN 24 MG-26 MG TAB PEG SCH ×2 (09:55→20:57)
[2017-04-28] MEDS: FOLIC ACID 1 MG TAB PEG SCH (09:55)
[2017-04-28] MEDS: ATORVASTATIN 40 MG TAB G-TUBE SCH (09:56)
[2017-04-28] MEDS: COLLAGENASE OINT 30 GM TUBE TOPICAL SCH (09:57)
[2017-04-28] MEDS: POVIDONE IODINE 10% OINT 30 GM TUBE TOPICAL SCH (09:57)
[2017-04-28] MEDS: POTASSIUM CHLORIDE 20 MEQ PWD PACKET PEG SCH (09:57)
[2017-04-28] MEDS: SODIUM HYPOCHLORITE 0.25% 500 ML BTL TOPICAL SCH (09:57)
[2017-04-28] MEDS: WARFARIN SOD 10 MG TAB PEG SCH (16:53)
--- NOTE | 2017-04-28 17:09 | HHI.PR ---
Subjective Remarks 66 YOWF with Rf, s/p trach H/O CVA,Arango Arango disease. On trach collar Mod amount of trach secretions. no fever. Tolerates TF Objective Vital Signs Vital Signs Date Time Temp Pulse Resp B/P (MAP) Pulse Ox O2 Delivery O2 Flow Rate FiO2 04/28/17 16:00 98.6 88 20 124/58 (80) 99 04/28/17 15:16 99 T-piece 6.00 28 04/28/17 12:00 99.0 91 20 114/58 (76) 99 04/28/17 08:00 98.6 100 20 127/66 (86) 100 04/28/17 08:00 Trach Collar 7.00 T-Piece 04/28/17 08:00 96 04/28/17 07:45 99 T-piece 28 04/28/17 04:00 Trach Collar 6.00 28 T-Piece 04/28/17 04:00 98.2 91 18 117/57 (77) 97 04/28/17 00:00 Trach Collar 6.00 28 T-Piece Humidified 04/28/17 00:00 98.4 86 18 121/69 (86) 100 04/27/17 20:00 99.4 88 18 127/72 (90) 96 04/27/17 20:00 92 04/27/17 20:00 Trach Collar 6.00 28 T-Piece Humidified I/O 04/27/17 04/27/17 04/27/17 04/28/17 04/28/17 04/28/17 07:00 15:00 23:00 07:00 15:00 23:00 Intake Total 1050 ml 0 ml 1020 ml 1338 ml Output Total 300 ml 900 ml 850 ml Balance 750 ml -900 ml 1020 ml 488 ml Intake Oral 0 ml 0 ml Tube Feeding 650 ml 720 ml 738 ml Other 400 ml 300 ml 600 ml Output Urine Total 300 ml 900 ml 850 ml # Bowel Movements 1 1 Objective Remarks GENERAL: MBMN WF, on Trach collar SKIN: Warm and dry. HEAD: Normocephalic. EYES: No scleral icterus. No injection or drainage. NECK: Supple, trachea midline. No JVD or lymphadenopathy. has trach CARDIOVASCULAR: Regular rate and rhythm without murmurs, gallops, or rubs. RESPIRATORY: Breath sounds equal bilaterally. No accessory muscle use. GASTROINTESTINAL: Abdomen soft, non-tender, nondistended. has PEG MUSCULOSKELETAL: No cyanosis, or edema. BACK: Nontender without obvious deformity. No CVA tenderness. A/P Assessment and Plan RF, S/P Trach CVA Arango arango disease CAD COPD SZ disorder PLAN: Aerosol nebs Cont trach collar supplement 02, keep sat >90%. TF Isabella.annikan PARTHA POWELL. Vernon Marx MD Apr 28, 2017 17:09
--- NOTE | 2017-04-28 18:29 | PD.WCN.NOT ---
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 Communicated with: ANDRE Wright modesta discussed order change with attending physician Doctor Maya Recommendation: Apply nickel thick Santyl to necrotic tissue in wound bed prior to packing with Quarter strength Dakins moist to dry gauze dressing. Additional Information: Patient seen on for re-evaluation of sacral wound with Adriana POWELL. Tube feed placed on hold prior to lowering head of bed and positioning patient to her right side for assessment. Dressing and packing removed from sacrum wound. Sacral wound visualized after cleansing and noted with ~20% vascular muscle tissue ~40% loosely adherent montemayor slough, ~20% sharp bone. and ~20% red granulation tissue. Wound measures 5cm x 3cm x 4.3cm with undermining from 7-5 o 'clock with deepest noted from 12-1 o'clock of ~7cm. Wound is malodorous with minimal sanguinous drainage noted. Wound margins are epiboled @ 9 o'clock and open from 10- 8 o'clock. Periwound is noted blanching discoloration from 11 to 8o'clock and DTI from 9 to 10 o'clock measuring ~2cm x ~1cm. Cleansed wound with dakins 0.25%.Applied tyrone thick santyl ointment to wound bed. Rolled gauze was moistened with Dakins 0.25% and gently inserted into wound bed. Skin prep was applied to periwound and before entire area was covered and secured with an ABD pad. Patient was repositioned to her right side with assistance from Adriana POWELL and patients head of bed raised per protocol for restarting tube feed. Quarter strength dakin's solution was recommended, but 0.25% or half strength dakins solution was ordered with santyl ointment and moist to dry dressings. Alma Martinez [facility] Apr 28, 2017 18:29
[2017-04-29] VITALS (9 sets, daily range): BP systolic 97–128; BP diastolic 46–62; PULSE 80–108; RESP 16–21; TEMP 97.6–98.6; O2SAT 96–100
[2017-04-29] MEDS: METOPROLOL TARTRATE 25 MG TAB G-TUBE SCH ×4 (01:13→19:01)
[2017-04-29] MEDS: CHLORHEXIDINE GLUCONATE 2 % 1 PACK (2 CLOTHS) TOP SCH (03:19)
[2017-04-29 06:00] LABS: INTERNATIONAL NORMALIZED RATIO 2.3 RATIO; PROTHROMBIN TIME - PATIENT 25.9 SEC (9.8-11.6)
[2017-04-29] MEDS: HYOSCYAMINE SOLN 0.125 MG/ML 15 ML BTL G-TUBE SCH ×4 (06:00→19:01)
[2017-04-29] MEDS: FREE WATER G-TUBE SCH ×2 (06:01→13:36)
[2017-04-29] MEDS: RESP: IPRATROPIUM 0.5 MG/2.5 ML NEB NEB SCH ×4 (07:50→20:02)
[2017-04-29] MEDS: CHLORHEXIDINE 0.12% (ORAL KIT) 15 ML CUP MT SCH (08:00)
[2017-04-29] MEDS: SODIUM CHLORIDE 0.9% FLUSH 10 ML FLUSH IV FLUSH SCH (08:46)
[2017-04-29] MEDS: BROMOCRIPTINE MESYLATE 2.5 MG TAB PEG SCH (08:48)
[2017-04-29] MEDS: ATORVASTATIN 40 MG TAB G-TUBE SCH (08:48)
[2017-04-29] MEDS: levETIRAcetam 500 MG/5 ML UDC PEG SCH (08:48)
[2017-04-29] MEDS: FOLIC ACID 1 MG TAB PEG SCH (08:48)
[2017-04-29] MEDS: FERROUS SULFATE 300 MG /5ML UDC PEG SCH (08:48)
[2017-04-29] MEDS: SENNOSIDES SYRUP 8.8 MG/5 ML CUP G-TUBE SCH ×2 (08:48→21:00)
[2017-04-29] MEDS: SACUBITRIL/VALSARTAN 24 MG-26 MG TAB PEG SCH (08:48)
[2017-04-29] MEDS: carBAMazepine SUSP 200 MG/10 ML UDC PEG SCH (08:49)
[2017-04-29] MEDS: JUVEN POWDER 1 PACK G-TUBE SCH (08:49)
[2017-04-29] MEDS: ASCORBIC ACID 500 MG TAB PEG SCH (08:49)
[2017-04-29] MEDS: FUROSEMIDE 20 MG/2 ML VIAL IV PUSH SCH (08:49)
[2017-04-29] MEDS: FAMOTIDINE 20 MG TAB PEG SCH (08:49)
[2017-04-29] MEDS: COLLAGENASE OINT 30 GM TUBE TOPICAL SCH (08:50)
[2017-04-29] MEDS: POVIDONE IODINE 10% OINT 30 GM TUBE TOPICAL SCH (08:50)
[2017-04-29] MEDS: POTASSIUM CHLORIDE 20 MEQ PWD PACKET PEG SCH (08:50)
[2017-04-29] MEDS: SODIUM HYPOCHLORITE 0.125% 500 ML BTL TOPICAL SCH (08:50)
--- NOTE | 2017-04-29 11:17 | HHI.PR ---
Subjective Remarks in bed, no events overnight. opens eyes. VSS. Discussed with wound care will change wound care recommendations, new recommendations ordered Discussed with the nurse for frequent repositioning. Objective Vitals Vital Signs Date Time Temp Pulse Resp B/P (MAP) Pulse Ox O2 Delivery O2 Flow Rate FiO2 04/29/17 08:11 97.8 99 21 118/56 (76) 100 04/29/17 07:56 100 T-piece 28 04/29/17 07:56 100 T-piece 28 04/29/17 04:00 98.3 98 20 125/59 (81) 100 04/29/17 00:00 98.6 83 16 105/51 (69) 96 04/28/17 20:00 89 04/28/17 20:00 Trach Collar 7.00 T-Piece 04/28/17 20:00 98.4 86 18 122/63 (82) 99 04/28/17 16:00 98.6 88 20 124/58 (80) 99 04/28/17 15:16 99 T-piece 6.00 28 04/28/17 12:00 99.0 91 20 114/58 (76) 99 I/O 04/28/17 04/28/17 04/28/17 04/29/17 04/29/17 04/29/17 07:00 15:00 23:00 07:00 15:00 23:00 Intake Total 1338 ml 922 ml Output Total 850 ml 500 ml 600 ml Balance 488 ml -500 ml 322 ml Intake Oral 0 ml 0 ml Tube Feeding 738 ml 622 ml Other 600 ml 300 ml Output Urine Total 850 ml 500 ml 600 ml # Bowel Movements 1 1 1 Imaging Last Impressions Chest X-Ray 03/20/17 0000 Signed Impressions: Service Date/Time: Monday, March 20, 2017 11:37 - CONCLUSION: Stable appearance with no acute cardiopulmonary disease. Lenny Kerns MD Abdomen X-Ray 02/11/17 0000 Signed Impressions: Service Date/Time: Saturday, February 11, 2017 17:52 - CONCLUSION: Minimal colonic distention. Kenneth Frost MD FACR Catheter Change 02/10/17 0000 Signed Impressions: Service Date/Time: February 13:47 - CONCLUSION: Uncomplicated fluoroscopic guided gastrostomy tube replacement. Positioning confirmed. The tube can be used immediately. Nghia Pacheco MD Lower Extremity Ultrasound 02/01/17 0000 Signed Impressions: Service Date/Time: Wednesday, February 01, 2017 13:23 - CONCLUSION: Normal examination. 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 Sami Mccarthy MD Objective Remarks GENERAL: Alert, sleepy, eyes open, does not respond to verbal commands. On T piece. SKIN: Warm and dry. Coccyx pressure wound stage 3 HEAD: Normocephalic. EYES: No scleral icterus. No injection or drainage. NECK: Supple, trachea midline. No JVD or lymphadenopathy. CARDIOVASCULAR: Regular rhythm, tachycardic without murmurs, gallops, or rubs. RESPIRATORY: Breath sounds equal bilaterally. No accessory muscle use. GASTROINTESTINAL: Abdomen soft, obese, non-tender, nondistended. MUSCULOSKELETAL: No cyanosis, or edema. Procedures PEG 11/24/2016 Percutaneous tracheostomy. 11/18/2016 Moderate encephalopathy with suggestion of left temporal region cortical irritability. No active seizures. Clinical correlation. Echocardiogram Severe dilated left ventricle. Wall thickness is normal. The left ventricular systolic function is moderately reduced with an estimated ejection fraction in the range of 35-40%. Doppler parameters are consistent with a restrictive left ventricular filling pattern indicative of decreased left ventricular diastolic compliance and increase left atrial pressure (grade 3 diastolic dysfunction). There is severe tricuspid regurgitation. There is severe pulmonary hypertension present ( > 70 mmHg). Severe mitral valve regurgitation. 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 Status: Acute (2) Seizure ICD Code: R56.9 - Unspecified convulsions Status: Acute (3) CVA (cerebral vascular accident) ICD Code: I63.9 - Cerebral infarction, unspecified Status: Acute (4) Respiratory failure, acute ICD Code: J96.00 - Acute respiratory failure, unspecified whether with hypoxia or hypercapnia Status: Acute (5) COPD (chronic obstructive pulmonary disease) ICD Code: J44.9 - Chronic obstructive pulmonary disease, unspecified Status: Chronic (6) Acute hypernatremia ICD Code: E87.0 - Hyperosmolality and hypernatremia Status: Resolved (7) Microcytic anemia ICD Code: D50.9 - Iron deficiency anemia, unspecified Assessment and Plan Ms. Rivas is a 66-year-old female with a history of stroke who was admitted to the [facility] on 11/04/2016 due to difficulty getting her thoughts together. She was found to have multifocal nonhemorrhagic infarctions in the frontal and parietal regions. She was initially awake and following commands with weakness of RLE and some aphasia. She was transferred to [facility] where he had an cerebral angiogram consistent with moyamoya. There were plans to perform extracranial/intracranial bypass. However, she had a seizure and ended up being intubated for status epilepticus 11/09 or 11/10. She was found to have a new right frontal infarct area and she was started on Dilantin and Keppra and it was felt that she would not be a candidate for intervention. She has since undergone PEG placement. Apparently family requested transfer back to [place] because they live locally and wanted her closer to home. Patient remained under critical care medicine until 12/24/2016. Viridans strep bacteremia, resolved Per ID, sputum cx with GNR and staph aureus ? colonization. Urine with Kleb pneumo and E Coli ? colonization Repeat blood cx 03/23 shows no growth in 5 days. on IV Rocephin ended 04/05/17 per ID continue precautions Bilateral frontal CVA Moyamoya - confirmed by arteriogram at [facility] October 2016 Seizure disorder Continue Keppra 1000mg BID Continue Tegretol 200mg q 12h Follow for seizure activity - no recent seizure activity noted Continue Bromocriptine Keppra level 25.3 04/05 Tegretol level 7.1 03/31 Hyperammonemia, resolved. continue to monitor ammonia level as indicated repeat level ordered for 04/12, level was 17. Repeat level 20. Will DC Lactulose. Continue to monitor for any encephalopathy. Will recheck as needed. Hyponatremia, improved. Monitor Na Mixed systolic and diastolic heart failure, stable - Echocardiogram 02/02/17 shows EF 35-40%, grade 3 diastolic dysfunction, severe tricuspid regurgitation, severe pulmonary HTN and severe mitral valve regurgitation. continue Lasix 20mg daily continue on Entresto monitor electrolytes and renal function monitor for s/sxs of fluid overload Chronic respiratory failure COPD Multilobar pneumonia, resolved Pulmonary medicine following, appreciate assistance Status post tracheostomy on 11/24/2016. Currently on T piece. Continue on Levsin prn for secretions. completed antibiotic course with Tobramycin, course ended on 01/20/17. Continue DuoNebs when necessary supplement O2 to keep O2 sats > 90% Atrial fibrillation plus recent SVT Cardiology signed off, stable rate controlled. Continue Metoprolol 50mg q6hr and Coumadin - confirmed with Dr. Flores patient to continue Coumadin WITHOUT ASA. INR subtherapeutic 2.3 today. Being managed by pharmacy. Anasarca, improving. Continue Lasix 20 mg IV daily. Dysphagia Hypoalbuminemia s/p PEG placement continue Jevity 1.5 through PEG tube with Corby supplementation. Continue TF continuous 60ml per hour Sacral/Coccyx wound Specialty bed Wound care following - per theirs and plastics recs - Daily cleansing the wound with gauze and Dakin's solutions (strength changed), then applying a nickel-thick portion of santyl to the entire wound bed, then packing with Dakin's soaked gauze. This should be covered with ABD and secured with tape. Reposition q2 hrs Anemia, microcytic, hypochromic, stable. iron studies-iron 33, TIBC 307, % sat 10.8, ferritin 346. Continue iron supplementation. stool Hemoccult negative monitor intermittently GI Prophylaxis: Pepcid. DVT prophylaxis: SCDs. Coumadin. Full code. Discussed with the patient, nurse. Discharge Planning Difficult placement. Angela Trejo MD Apr 29, 2017 11:17
--- NOTE | 2017-04-29 11:45 | HHI.PR ---
Subjective Remarks 66 YOWF with Rf, s/p trach H/O CVA,Arango Arango disease. On trach collar Mod amount of trach secretions. no fever. Tolerates TF Awake ,looks around Objective Vital Signs Vital Signs Date Time Temp Pulse Resp B/P (MAP) Pulse Ox O2 Delivery O2 Flow Rate FiO2 04/29/17 08:11 97.8 99 21 118/56 (76) 100 04/29/17 07:56 100 T-piece 28 04/29/17 07:56 100 T-piece 28 04/29/17 04:00 98.3 98 20 125/59 (81) 100 04/29/17 00:00 98.6 83 16 105/51 (69) 96 04/28/17 20:00 89 04/28/17 20:00 Trach Collar 7.00 T-Piece 04/28/17 20:00 98.4 86 18 122/63 (82) 99 04/28/17 16:00 98.6 88 20 124/58 (80) 99 04/28/17 15:16 99 T-piece 6.00 28 04/28/17 12:00 99.0 91 20 114/58 (76) 99 I/O 04/28/17 04/28/17 04/28/17 04/29/17 04/29/17 04/29/17 07:00 15:00 23:00 07:00 15:00 23:00 Intake Total 1338 ml 922 ml Output Total 850 ml 500 ml 600 ml Balance 488 ml -500 ml 322 ml Intake Oral 0 ml 0 ml Tube Feeding 738 ml 622 ml Other 600 ml 300 ml Output Urine Total 850 ml 500 ml 600 ml # Bowel Movements 1 1 1 Objective Remarks GENERAL: MBMN WF, on Trach collar SKIN: Warm and dry. HEAD: Normocephalic. EYES: No scleral icterus. No injection or drainage. NECK: Supple, trachea midline. No JVD or lymphadenopathy. has trach CARDIOVASCULAR: Regular rate and rhythm without murmurs, gallops, or rubs. RESPIRATORY: Breath sounds equal bilaterally. No accessory muscle use. GASTROINTESTINAL: Abdomen soft, non-tender, nondistended. has PEG MUSCULOSKELETAL: No cyanosis, or edema. BACK: Nontender without obvious deformity. No CVA tenderness. A/P Assessment and Plan RF, S/P Trach CVA Arango arango disease CAD COPD SZ disorder PLAN: Aerosol nebs Cont trach collar supplement 02, keep sat >90%. SHAWN Mason.prn PARTHA RN. Available prn over weekend Vernon Marx MD Apr 29, 2017 11:45
[2017-04-29] MEDS: WARFARIN SOD 10 MG TAB PEG SCH (16:29)
[2017-04-30] VITALS (8 sets, daily range): BP systolic 94–165; BP diastolic 53–72; PULSE 96–113; RESP 18–23; TEMP 96.1–99.7; O2SAT 96–100
[2017-04-30] MEDS: SODIUM CHLORIDE 0.9% FLUSH 10 ML FLUSH IV FLUSH SCH ×3 (01:03→19:57)
[2017-04-30] MEDS: CHLORHEXIDINE 0.12% (ORAL KIT) 15 ML CUP MT SCH ×3 (01:03→19:57)
[2017-04-30] MEDS: JUVEN POWDER 1 PACK G-TUBE SCH ×3 (01:03→19:57)
[2017-04-30] MEDS: FERROUS SULFATE 300 MG /5ML UDC PEG SCH ×3 (01:03→19:55)
[2017-04-30] MEDS: BROMOCRIPTINE MESYLATE 2.5 MG TAB PEG SCH ×3 (01:04→19:56)
[2017-04-30] MEDS: carBAMazepine SUSP 200 MG/10 ML UDC PEG SCH ×3 (01:04→19:56)
[2017-04-30] MEDS: FAMOTIDINE 20 MG TAB PEG SCH ×3 (01:04→19:56)
[2017-04-30] MEDS: ASCORBIC ACID 500 MG TAB PEG SCH ×3 (01:04→19:57)
[2017-04-30] MEDS: SACUBITRIL/VALSARTAN 24 MG-26 MG TAB PEG SCH ×3 (01:04→19:57)
[2017-04-30] MEDS: levETIRAcetam 500 MG/5 ML UDC PEG SCH ×3 (01:04→19:56)
[2017-04-30] MEDS: FREE WATER G-TUBE SCH ×4 (01:05→21:30)
[2017-04-30] MEDS: METOPROLOL TARTRATE 25 MG TAB G-TUBE SCH ×4 (01:05→18:30)
[2017-04-30] MEDS: HYOSCYAMINE SOLN 0.125 MG/ML 15 ML BTL G-TUBE SCH ×4 (01:05→18:27)
[2017-04-30] MEDS: CHLORHEXIDINE GLUCONATE 2 % 1 PACK (2 CLOTHS) TOP SCH (04:00)
[2017-04-30] MEDS: RESP: IPRATROPIUM 0.5 MG/2.5 ML NEB NEB SCH ×4 (07:49→21:42)
[2017-04-30 08:25] LABS: INTERNATIONAL NORMALIZED RATIO 1.6 RATIO; PROTHROMBIN TIME - PATIENT 18.4 SEC (9.8-11.6)
[2017-04-30] MEDS: SENNOSIDES SYRUP 8.8 MG/5 ML CUP G-TUBE SCH ×2 (08:51→19:56)
[2017-04-30] MEDS: FOLIC ACID 1 MG TAB PEG SCH (08:52)
[2017-04-30] MEDS: ATORVASTATIN 40 MG TAB G-TUBE SCH (08:53)
[2017-04-30] MEDS: POTASSIUM CHLORIDE 20 MEQ PWD PACKET PEG SCH (08:53)
[2017-04-30] MEDS: FUROSEMIDE 20 MG/2 ML VIAL IV PUSH SCH (08:54)
[2017-04-30] MEDS: SODIUM HYPOCHLORITE 0.125% 500 ML BTL TOPICAL SCH (08:54)
[2017-04-30] MEDS: POVIDONE IODINE 10% OINT 30 GM TUBE TOPICAL SCH (08:54)
[2017-04-30] MEDS: COLLAGENASE OINT 30 GM TUBE TOPICAL SCH (08:55)
--- NOTE | 2017-04-30 09:42 | HHI.PR ---
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, + tracking attempts to speak Objective Vitals Vital Signs Date Time Temp Pulse Resp B/P (MAP) Pulse Ox O2 Delivery O2 Flow Rate FiO2 04/30/17 08:00 96.1 96 22 122/59 (80) 100 04/30/17 07:53 100 T-piece 28 04/30/17 04:00 99.7 97 21 94/53 (67) 100 04/30/17 00:00 98.9 113 19 165/61 (95) 100 04/29/17 20:03 100 T-piece 5.00 28 04/29/17 20:03 100 T-piece 5.00 28 04/29/17 20:00 97.6 108 20 128/58 (81) 99 04/29/17 20:00 Trach Collar 7.00 T-Piece 04/29/17 20:00 80 04/29/17 16:48 Trach Collar 6.00 28 T-Piece 04/29/17 16:11 97.9 98 20 108/62 (77) 100 04/29/17 12:27 98.5 98 20 97/46 (63) 96 I/O 04/29/17 04/29/17 04/29/17 04/30/17 04/30/17 04/30/17 07:00 15:00 23:00 07:00 15:00 23:00 Intake Total 922 ml 1288 ml 560 ml Output Total 600 ml 850 ml 600 ml Balance 322 ml 438 ml -40 ml Intake Oral 0 ml 0 ml Tube Feeding 622 ml 988 ml 260 ml Other 300 ml 300 ml 300 ml Output Urine Total 600 ml 850 ml 600 ml # Bowel Movements 1 1 2 Imaging Last Impressions Chest X-Ray 03/20/17 0000 Signed Impressions: Service Date/Time: Monday, March 20, 2017 11:37 - CONCLUSION: Stable appearance with no acute cardiopulmonary disease. Lenny Kerns MD Abdomen X-Ray 02/11/17 0000 Signed Impressions: Service Date/Time: Saturday, February 11, 2017 17:52 - CONCLUSION: Minimal colonic distention. Kenneth Frost MD FACR Catheter Change 02/10/17 0000 Signed Impressions: Service Date/Time: February 13:47 - CONCLUSION: Uncomplicated fluoroscopic guided gastrostomy tube replacement. Positioning confirmed. The tube can be used immediately. Nghia Pacheco MD Lower Extremity Ultrasound 02/01/17 0000 Signed Impressions: Service Date/Time: Wednesday, February 01, 2017 13:23 - CONCLUSION: Normal examination. 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 Sami Mccarthy MD Objective Remarks good sats ats 28% trach collar awake and alert, non verbal trach collar in place lungs- no rales or wheezes regular rhythm abdomen- PEG site no signs of infection, good bowel sounds extremities- SCDs, some wrist contractures, hands gripped when held sacrococcygeal area- stage IV decubitus ulcer Procedures PEG 11/24/2016 Percutaneous tracheostomy. 11/18/2016 Moderate encephalopathy with suggestion of left temporal region cortical irritability. No active seizures. Clinical correlation. Echocardiogram Severe dilated left ventricle. Wall thickness is normal. The left ventricular systolic function is moderately reduced with an estimated ejection fraction in the range of 35-40%. Doppler parameters are consistent with a restrictive left ventricular filling pattern indicative of decreased left ventricular diastolic compliance and increase left atrial pressure (grade 3 diastolic dysfunction). There is severe tricuspid regurgitation. There is severe pulmonary hypertension present ( > 70 mmHg). Severe mitral valve regurgitation. 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 Status: Acute (2) Seizure ICD Code: R56.9 - Unspecified convulsions Status: Acute (3) CVA (cerebral vascular accident) ICD Code: I63.9 - Cerebral infarction, unspecified Status: Acute (4) Respiratory failure, acute ICD Code: J96.00 - Acute respiratory failure, unspecified whether with hypoxia or hypercapnia Status: Acute (5) COPD (chronic obstructive pulmonary disease) ICD Code: J44.9 - Chronic obstructive pulmonary disease, unspecified Status: Chronic (6) Acute hypernatremia ICD Code: E87.0 - Hyperosmolality and hypernatremia Status: Resolved (7) Microcytic anemia ICD Code: D50.9 - Iron deficiency anemia, unspecified Assessment and Plan Ms. Rivas is a 66-year-old female with a history of stroke who was admitted to the [facility] on 11/04/2016 due to difficulty getting her thoughts together. She was found to have multifocal nonhemorrhagic infarctions in the frontal and parietal regions. She was initially awake and following commands with weakness of RLE and some aphasia. She was transferred to [facility] where he had an cerebral angiogram consistent with moyamoya. There were plans to perform extracranial/intracranial bypass. However, she had a seizure and ended up being intubated for status epilepticus 11/09 or 11/10. She was found to have a new right frontal infarct area and she was started on Dilantin and Keppra and it was felt that she would not be a candidate for intervention. She has since undergone PEG placement. Apparently family requested transfer back to [place] because they live locally and wanted her closer to home. Patient remained under critical care medicine until 12/24/2016. Viridans strep bacteremia, resolved Per ID, sputum cx with GNR and staph aureus ? colonization. Urine with Kleb pneumo and E Coli ? colonization Repeat blood cx 03/23 shows no growth in 5 days. S/P IV Rocephin course 04/05/17 per ID continue precautions Bilateral frontal CVA Moyamoya - confirmed by arteriogram at [facility] October 2016 Seizure disorder Continue Keppra 1000mg BID Continue Tegretol 200mg q 12h Follow for seizure activity - no recent seizure activity noted Continue Bromocriptine Keppra level 25.3 04/05 Tegretol level 7.1 03/31 Hyperammonemia, resolved. continue to monitor ammonia level as indicated repeat level ordered for 04/12, level was 17. off Lactulose. Continue to monitor for any encephalopathy. Will recheck as needed. Hyponatremia, improved. Monitor Na periodically Mixed systolic and diastolic heart failure, stable - Echocardiogram 02/02/17 shows EF 35-40%, grade 3 diastolic dysfunction, severe tricuspid regurgitation, severe pulmonary HTN and severe mitral valve regurgitation. continue Lasix 20mg daily- change to pEG route continue on Entresto monitor electrolytes and renal function monitor for s/sxs of fluid overload Chronic respiratory failure COPD Multilobar pneumonia, resolved Pulmonary medicine following, appreciate assistance Status post tracheostomy on 11/24/2016. Currently on T piece. Continue on Levsin prn for secretions. completed antibiotic course with Tobramycin, course ended on 01/20/17. Continue DuoNebs when necessary supplement O2 to keep O2 sats > 90% Atrial fibrillation - recent SVT- in SR rate controlled Cardiology signed off, stable rate controlled. Continue Metoprolol 50mg q6hr and Coumadin - confirmed with Dr. Flores patient to continue Coumadin WITHOUT ASA. INR subtherapeutic 2.3 today. Being managed by pharmacy. Anasarca, improving. Continue Lasix 20 mg daily per PEG Dysphagia Hypoalbuminemia s/p PEG placement continue Jevity 1.5 through PEG tube with Corby supplementation. Continue TF continuous 60ml per hour Sacral/Coccyx wound-stage IV Specialty bed Wound care following - per theirs and plastics recs - Daily cleansing the wound with gauze and Dakin's solutions (strength changed), then applying a nickel-thick portion of santyl to the entire wound bed, then packing with Dakin's soaked gauze. This should be covered with ABD and secured with tape. Reposition q2 hrs Anemia, microcytic, hypochromic, stable. iron studies-iron 33, TIBC 307, % sat 10.8, ferritin 346. Continue iron supplementation. stool Hemoccult negative monitor intermittently GI Prophylaxis: Pepcid. DVT prophylaxis: SCDs. Coumadin. Full code. Discussed with the nurse. Discharge Planning Difficult placement. Olena Smith MD Apr 30, 2017 09:42
[2017-04-30] MEDS ORDERED: WARFARIN SOD 2.5 MG TAB PO ONE (16:00)
[2017-04-30] MEDS: WARFARIN SOD 10 MG TAB PEG SCH (18:26)
[2017-05-01] VITALS (9 sets, daily range): BP systolic 95–130; BP diastolic 50–75; PULSE 76–103; RESP 18–24; TEMP 96–99.1; O2SAT 96–100
[2017-05-01] MEDS: METOPROLOL TARTRATE 25 MG TAB G-TUBE SCH ×4 (00:02→18:29)
[2017-05-01] MEDS: HYOSCYAMINE SOLN 0.125 MG/ML 15 ML BTL G-TUBE SCH ×4 (00:02→18:29)
[2017-05-01] MEDS: CHLORHEXIDINE GLUCONATE 2 % 1 PACK (2 CLOTHS) TOP SCH (03:43)
[2017-05-01] MEDS: FREE WATER G-TUBE SCH ×3 (05:01→21:59)
[2017-05-01] MEDS: RESP: IPRATROPIUM 0.5 MG/2.5 ML NEB NEB SCH ×4 (07:53→19:47)
[2017-05-01] MEDS: CHLORHEXIDINE 0.12% (ORAL KIT) 15 ML CUP MT SCH ×2 (08:00→20:00)
--- NOTE | 2017-05-01 08:26 | HHI.PR ---
Subjective Remarks awake, tolerating tube feedings needs frequent suctioning Objective Vitals Vital Signs Date Time Temp Pulse Resp B/P (MAP) Pulse Ox O2 Delivery O2 Flow Rate FiO2 05/01/17 07:58 97 T-piece 28 05/01/17 04:00 98.5 100 18 118/58 (78) 96 05/01/17 00:00 99.1 103 18 130/58 (82) 98 05/01/17 00:00 Trach Collar 6.00 28 T-Piece 04/30/17 21:49 96 T-piece 4.00 28 04/30/17 20:00 Trach Collar 6.00 28 T-Piece 04/30/17 20:00 98 04/30/17 20:00 99.2 105 18 122/57 (78) 97 04/30/17 16:00 96.4 98 23 119/67 (84) 100 04/30/17 12:00 96.2 99 22 108/72 (84) 100 04/30/17 09:42 Trach Collar 6.00 28 T-Piece I/O 04/30/17 04/30/17 04/30/17 05/01/17 05/01/17 05/01/17 07:00 15:00 23:00 07:00 15:00 23:00 Intake Total 560 ml 1320 ml Output Total 600 ml 1000 ml Balance -40 ml -1000 ml 1320 ml Intake Oral 0 ml Tube Feeding 260 ml 720 ml Other 300 ml 600 ml Output Urine Total 600 ml 1000 ml # Bowel Movements 2 0 Imaging Last Impressions Chest X-Ray 03/20/17 0000 Signed Impressions: Service Date/Time: Monday, March 20, 2017 11:37 - CONCLUSION: Stable appearance with no acute cardiopulmonary disease. Lenny Kerns MD Abdomen X-Ray 02/11/17 0000 Signed Impressions: Service Date/Time: Saturday, February 11, 2017 17:52 - CONCLUSION: Minimal colonic distention. Kenneth Frost MD FACR Catheter Change 02/10/17 0000 Signed Impressions: Service Date/Time: February 13:47 - CONCLUSION: Uncomplicated fluoroscopic guided gastrostomy tube replacement. Positioning confirmed. The tube can be used immediately. Nghia Pacheco MD Lower Extremity Ultrasound 02/01/17 0000 Signed Impressions: Service Date/Time: Wednesday, February 01, 2017 13:23 - CONCLUSION: Normal examination. 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 Sami Mccarthy MD Objective Remarks good sats 28% Sats awake and alert, non verbal t- piece in place lungs- no rales or wheezes regular rhythm abdomen- PEG site no signs of infection, good bowel sounds extremities- SCDs, some wrist contractures, hands gripped when held sacrococcygeal area- stage IV decubitus ulcer 04/30 exam Procedures PEG 11/24/2016 Percutaneous tracheostomy. 11/18/2016 Moderate encephalopathy with suggestion of left temporal region cortical irritability. No active seizures. Clinical correlation. Echocardiogram Severe dilated left ventricle. Wall thickness is normal. The left ventricular systolic function is moderately reduced with an estimated ejection fraction in the range of 35-40%. Doppler parameters are consistent with a restrictive left ventricular filling pattern indicative of decreased left ventricular diastolic compliance and increase left atrial pressure (grade 3 diastolic dysfunction). There is severe tricuspid regurgitation. There is severe pulmonary hypertension present ( > 70 mmHg). Severe mitral valve regurgitation. 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 Status: Acute (2) Seizure ICD Code: R56.9 - Unspecified convulsions Status: Acute (3) CVA (cerebral vascular accident) ICD Code: I63.9 - Cerebral infarction, unspecified Status: Acute (4) Respiratory failure, acute ICD Code: J96.00 - Acute respiratory failure, unspecified whether with hypoxia or hypercapnia Status: Acute (5) COPD (chronic obstructive pulmonary disease) ICD Code: J44.9 - Chronic obstructive pulmonary disease, unspecified Status: Chronic (6) Acute hypernatremia ICD Code: E87.0 - Hyperosmolality and hypernatremia Status: Resolved (7) Microcytic anemia ICD Code: D50.9 - Iron deficiency anemia, unspecified Assessment and Plan Ms. Rivas is a 66-year-old female with a history of stroke who was admitted to the [facility] on 11/04/2016 due to difficulty getting her thoughts together. She was found to have multifocal nonhemorrhagic infarctions in the frontal and parietal regions. She was initially awake and following commands with weakness of RLE and some aphasia. She was transferred to [facility] where he had an cerebral angiogram consistent with moyamoya. There were plans to perform extracranial/intracranial bypass. However, she had a seizure and ended up being intubated for status epilepticus 11/09 or 11/10. She was found to have a new right frontal infarct area and she was started on Dilantin and Keppra and it was felt that she would not be a candidate for intervention. She has since undergone PEG placement. Apparently family requested transfer back to [place] because they live locally and wanted her closer to home. Patient remained under critical care medicine until 12/24/2016. Viridans strep bacteremia, resolved Per ID, sputum cx with GNR and staph aureus ? colonization. Urine with Kleb pneumo and E Coli ? colonization Repeat blood cx 03/23 shows no growth in 5 days. S/P IV Rocephin course 04/05/17 per ID continue precautions Bilateral frontal CVA Moyamoya - confirmed by arteriogram at [facility] October 2016 Seizure disorder Continue Keppra 1000mg BID Continue Tegretol 200mg q 12h Follow for seizure activity - no recent seizure activity noted Continue Bromocriptine Keppra level 25.3 04/05 Tegretol level 7.1 03/31 Hyperammonemia, resolved. continue to monitor ammonia level as indicated repeat level ordered for 04/12, level was 17. off Lactulose. Continue to monitor for any encephalopathy. Will recheck as needed. Hyponatremia, improved. Monitor Na periodically Mixed systolic and diastolic heart failure, stable - Echocardiogram 02/02/17 shows EF 35-40%, grade 3 diastolic dysfunction, severe tricuspid regurgitation, severe pulmonary HTN and severe mitral valve regurgitation. continue Lasix 20mg daily- change to pEG route continue on Entresto monitor electrolytes and renal function monitor for s/sxs of fluid overload Chronic respiratory failure on t piece 28% COPD Multilobar pneumonia, resolved Pulmonary medicine following, appreciate assistance Status post tracheostomy on 11/24/2016. Currently on T piece. Continue on Levsin prn for secretions. completed antibiotic course with Tobramycin, course ended on 01/20/17. Continue DuoNebs when necessary supplement O2 to keep O2 sats > 90% Atrial fibrillation - recent SVT- in SR rate controlled Cardiology signed off, stable rate controlled. Continue Metoprolol 50mg q6hr and Coumadin - confirmed with Dr. Flores patient to continue Coumadin WITHOUT ASA. INR daily- Pharmacy dosing Anasarca, improving. Continue Lasix 20 mg daily per PEG Dysphagia Hypoalbuminemia s/p PEG placement continue Jevity 1.5 through PEG tube with Corby supplementation. Continue TF continuous 60ml per hour Sacral/Coccyx wound-stage IV Specialty bed Wound care following - per theirs and plastics recs - Daily cleansing the wound with gauze and Dakin's solutions (strength changed), then applying a nickel-thick portion of santyl to the entire wound bed, then packing with Dakin's soaked gauze. This should be covered with ABD and secured with tape. Reposition q2 hrs Anemia, microcytic, hypochromic, stable. iron studies-iron 33, TIBC 307, % sat 10.8, ferritin 346. Continue iron supplementation. stool Hemoccult negative monitor intermittently GI Prophylaxis: Pepcid. DVT prophylaxis: SCDs. Coumadin. Full code. 05/01 Discussed with the nurse. and respiratory therapist- regarding trial of trac capping- still requriing frequent suctioning- with moderate secretions Discharge Planning Difficult placement. Olena Smith MD May 01, 2017 08:26
[2017-05-01] MEDS: COLLAGENASE OINT 30 GM TUBE TOPICAL SCH (09:00)
[2017-05-01 09:30] LABS: INTERNATIONAL NORMALIZED RATIO 1.3 RATIO; PROTHROMBIN TIME - PATIENT 14.8 SEC (9.8-11.6)
[2017-05-01] MEDS: FOLIC ACID 1 MG TAB PEG SCH (09:57)
[2017-05-01] MEDS: ATORVASTATIN 40 MG TAB G-TUBE SCH (09:57)
[2017-05-01] MEDS: FUROSEMIDE 20 MG TAB PEG SCH (09:58)
[2017-05-01] MEDS: FERROUS SULFATE 300 MG /5ML UDC PEG SCH ×2 (09:58→20:47)
[2017-05-01] MEDS: FAMOTIDINE 20 MG TAB PEG SCH ×2 (09:58→20:46)
[2017-05-01] MEDS: carBAMazepine SUSP 200 MG/10 ML UDC PEG SCH ×2 (09:58→20:47)
[2017-05-01] MEDS: levETIRAcetam 500 MG/5 ML UDC PEG SCH ×2 (09:58→20:47)
[2017-05-01] MEDS: SENNOSIDES SYRUP 8.8 MG/5 ML CUP G-TUBE SCH ×2 (09:58→20:47)
[2017-05-01] MEDS: BROMOCRIPTINE MESYLATE 2.5 MG TAB PEG SCH ×2 (09:58→20:46)
[2017-05-01] MEDS: SACUBITRIL/VALSARTAN 24 MG-26 MG TAB PEG SCH ×2 (09:58→20:46)
[2017-05-01] MEDS: ASCORBIC ACID 500 MG TAB PEG SCH ×2 (14:14→20:46)
[2017-05-01] MEDS: WARFARIN SOD 10 MG TAB PEG SCH (15:32)
[2017-05-01] MEDS: POTASSIUM CHLORIDE 20 MEQ PWD PACKET PEG SCH (15:33)
[2017-05-01] MEDS: JUVEN POWDER 1 PACK G-TUBE SCH ×2 (15:34→20:47)
[2017-05-01] MEDS: POVIDONE IODINE 10% OINT 30 GM TUBE TOPICAL SCH (15:34)
[2017-05-01] MEDS: SODIUM CHLORIDE 0.9% FLUSH 10 ML FLUSH IV FLUSH SCH (21:00)
[2017-05-02] VITALS (10 sets, daily range): BP systolic 98–137; BP diastolic 52–63; PULSE 74–98; RESP 18–20; TEMP 96.4–98.6; O2SAT 94–100
[2017-05-02] MEDS: HYOSCYAMINE SOLN 0.125 MG/ML 15 ML BTL G-TUBE SCH ×4 (00:36→16:54)
[2017-05-02] MEDS: METOPROLOL TARTRATE 25 MG TAB G-TUBE SCH ×4 (00:37→16:55)
[2017-05-02] MEDS: CHLORHEXIDINE GLUCONATE 2 % 1 PACK (2 CLOTHS) TOP SCH (03:10)
[2017-05-02] MEDS: SODIUM HYPOCHLORITE 0.125% 500 ML BTL TOPICAL SCH ×2 (03:58→09:00)
[2017-05-02] MEDS: FREE WATER G-TUBE SCH ×3 (05:09→21:18)
[2017-05-02] MEDS: CHLORHEXIDINE 0.12% (ORAL KIT) 15 ML CUP MT SCH ×2 (08:00→21:17)
[2017-05-02] MEDS: RESP: IPRATROPIUM 0.5 MG/2.5 ML NEB NEB SCH (08:00)
[2017-05-02] MEDS: POVIDONE IODINE 10% OINT 30 GM TUBE TOPICAL SCH (09:00)
[2017-05-02] MEDS: COLLAGENASE OINT 30 GM TUBE TOPICAL SCH (09:00)
[2017-05-02] MEDS: carBAMazepine SUSP 200 MG/10 ML UDC PEG SCH ×2 (09:32→21:18)
[2017-05-02] MEDS: levETIRAcetam 500 MG/5 ML UDC PEG SCH ×2 (09:32→21:17)
[2017-05-02] MEDS: FERROUS SULFATE 300 MG /5ML UDC PEG SCH ×2 (09:32→21:17)
[2017-05-02] MEDS: SACUBITRIL/VALSARTAN 24 MG-26 MG TAB PEG SCH ×2 (09:33→21:18)
[2017-05-02] MEDS: ATORVASTATIN 40 MG TAB G-TUBE SCH (09:33)
[2017-05-02] MEDS: FUROSEMIDE 20 MG TAB PEG SCH (09:33)
[2017-05-02] MEDS: FOLIC ACID 1 MG TAB PEG SCH (09:33)
[2017-05-02] MEDS: BROMOCRIPTINE MESYLATE 2.5 MG TAB PEG SCH ×2 (09:34→21:18)
[2017-05-02] MEDS: FAMOTIDINE 20 MG TAB PEG SCH ×2 (09:34→21:18)
[2017-05-02] MEDS: ASCORBIC ACID 500 MG TAB PEG SCH ×2 (09:34→21:18)
[2017-05-02] MEDS: POTASSIUM CHLORIDE 20 MEQ PWD PACKET PEG SCH (09:35)
[2017-05-02] MEDS: SENNOSIDES SYRUP 8.8 MG/5 ML CUP G-TUBE SCH ×2 (09:35→21:17)
[2017-05-02] MEDS: JUVEN POWDER 1 PACK G-TUBE SCH ×2 (09:36→21:00)
[2017-05-02] MEDS: SODIUM CHLORIDE 0.9% FLUSH 10 ML FLUSH IV FLUSH SCH ×2 (09:36→21:18)
[2017-05-02 09:44] LABS: INTERNATIONAL NORMALIZED RATIO 1.6 RATIO; PROTHROMBIN TIME - PATIENT 18.3 SEC (9.8-11.6)
--- NOTE | 2017-05-02 14:09 | HHI.PR ---
Subjective Remarks Follow up on patient with MoyaMoya dz, bilateral frontal CVA. Patient seen and examined. Patient opens her eyes to voice but then closes them again. Does not track. Does not follow commands. Discussed with nursing staff - no acute issues overnight. Objective Vitals Vital Signs Date Time Temp Pulse Resp B/P (MAP) Pulse Ox O2 Delivery O2 Flow Rate FiO2 05/02/17 12:00 97.2 98 20 110/56 (74) 98 05/02/17 09:05 97 T-piece 05/02/17 08:00 97.7 81 20 105/53 (70) 94 05/02/17 08:00 88 05/02/17 04:59 100 Trach Collar 6.00 28 T-Piece Humidified 05/02/17 04:00 98.2 95 18 108/63 (78) 100 108/ 05/02/17 00:21 Trach Collar 6.00 28 T-Piece Humidified 05/02/17 00:00 98.6 82 18 98/61 (73) 100 05/01/17 20:25 80 05/01/17 20:00 Trach Collar 6.00 28 T-Piece Humidified 05/01/17 20:00 98.1 85 18 95/56 (69) 100 05/01/17 19:52 100 T-piece 28 05/01/17 16:00 97.1 76 21 110/63 (79) 100 05/01/17 15:50 Trach Collar 6.00 28 T-Piece I/O 05/01/17 05/01/17 05/01/17 05/02/17 05/02/17 05/02/17 07:00 15:00 23:00 07:00 15:00 23:00 Intake Total 1320 ml 800 ml 1320 ml Output Total 1000 ml Balance 1320 ml -1000 ml 800 ml 1320 ml Tube Feeding 720 ml 440 ml 720 ml Tube Irrigant 60 ml Other 600 ml 300 ml 600 ml Output Urine Total 1000 ml # Bowel Movements 0 Imaging Last Impressions Chest X-Ray 03/20/17 0000 Signed Impressions: Service Date/Time: Monday, March 20, 2017 11:37 - CONCLUSION: Stable appearance with no acute cardiopulmonary disease. Lenny Kerns MD Abdomen X-Ray 02/11/17 0000 Signed Impressions: Service Date/Time: Saturday, February 11, 2017 17:52 - CONCLUSION: Minimal colonic distention. Kenneth Frost MD FACR Catheter Change 02/10/17 0000 Signed Impressions: Service Date/Time: February 13:47 - CONCLUSION: Uncomplicated fluoroscopic guided gastrostomy tube replacement. Positioning confirmed. The tube can be used immediately. Nghia Pacheco MD Lower Extremity Ultrasound 02/01/17 0000 Signed Impressions: Service Date/Time: Wednesday, February 01, 2017 13:23 - CONCLUSION: Normal examination. 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 Sami Mccarthy MD Objective Remarks GENERAL: WDWN female, lying in hospital bed, INAD. Eyes open to voice but then patient closes for remainder of visit. Does not track. SKIN: Warm and dry. (+)sacrococcygeal area - stage IV decub ulcer not examined today. HEENT: Normocephalic. No nasal bleeding or discharge noted. Dry mucus membranes. NECK: Trachea midline. T piece in place with scant secretions noted in tubing. CARDIOVASCULAR: Regular rate and rhythm without murmurs, gallops, or rubs. RESPIRATORY: Upper airway sounds noted. No accessory muscle use. GASTROINTESTINAL: Abdomen soft, non-tender, nondistended. PEG in place, site unchanged. MUSCULOSKELETAL: No cyanosis. Bilateral SCDs in place. 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 NEUROLOGICAL: Nonverbal. Able to grasp finger. No spontaneous movement appreciated. Procedures PEG 11/24/2016 Percutaneous tracheostomy. 11/18/2016 Moderate encephalopathy with suggestion of left temporal region cortical irritability. No active seizures. Clinical correlation. Echocardiogram Severe dilated left ventricle. Wall thickness is normal. The left ventricular systolic function is moderately reduced with an estimated ejection fraction in the range of 35-40%. Doppler parameters are consistent with a restrictive left ventricular filling pattern indicative of decreased left ventricular diastolic compliance and increase left atrial pressure (grade 3 diastolic dysfunction). There is severe tricuspid regurgitation. There is severe pulmonary hypertension present ( > 70 mmHg). Severe mitral valve regurgitation. Medications and IVs Current Medications Medications (Trade) Dose Ordered Sig/Ora Route Start Time Stop Time Status Last Admin (Peridex 0.12% Liq) 15 ml BID@08,20 MT 11/18/16 08:00 05/02/17 08:00 (NS Flush) 2 ml BID IV FLUSH 11/18/16 09:00 05/02/17 09:36 (Morphine Inj) 2 mg Q2H PRN IV 11/18/16 03:30 03/27/17 10:13 (Zofran Inj) 4 mg Q6H PRN IV 11/18/16 03:30 11/26/16 03:20 Miscellaneous Information 1 Q361D XX 11/18/16 03:30 11/18/16 03:30 (Chlorhexidine 2% Cloth) Taper DAILY@04 TOP 11/18/16 04:00 11/14/17 03:59 04/06/17 04:33 (Chlorhexidine 2% Cloth) 3 pack UNSCH PRN TOP 11/18/16 03:30 (Dulcolax Supp) 10 mg DAILY PRN RECTAL 12/14/16 15:45 (TEGretol LIQ) 200 mg Q12HR PEG 01/06/17 09:00 05/02/17 09:32 (Corby Powder) 1 pack BID G-TUBE 01/13/17 09:00 05/02/17 09:36 (Ferrous Sulfate Liq) 300 mg BID PEG 01/26/17 21:00 05/02/17 09:32 (Vitamin C) 500 mg BID PEG 01/26/17 21:00 05/02/17 09:34 ([place] 5-325 Mg) 1 tab Q4H PRN G-TUBE 02/01/17 11:30 04/09/17 20:25 (Tylenol) 650 mg Q6H PRN G-TUBE 02/01/17 09:30 04/07/17 22:09 (Lipitor) 40 mg DAILY G-TUBE 02/01/17 09:00 05/02/17 09:33 (Senna Liq) 8.8 mg BID G-TUBE 02/01/17 09:00 05/02/17 09:35 (D50w (Vial) Inj) 25 ml UNSCH PRN IV PUSH 02/01/17 09:15 (Glucagon Inj) 1 mg UNSCH PRN OTHER 02/01/17 09:15 (Betadine 10% Oint) 1 applic DAILY TOPICAL 02/15/17 09:00 05/02/17 09:00 (Zaroxolyn) 5 mg DAILY PEG 03/09/17 09:00 Future Hold 04/06/17 11:31 (Entresto 24-26 Mg) 1 tab BID PEG 03/08/17 21:00 05/02/17 09:33 (Free Water) VOLUME OF WATER: ( 300 ) ML Q8HR G-TUBE 03/09/17 14:00 05/02/17 05:09 (Levsin Liq) 0.125 mg Q6H G-TUBE 03/10/17 18:00 05/02/17 05:09 (Albuterol Neb) 0.63 mg Q4HR NEB PRN NEB 03/21/17 09:15 (Lopressor) 50 mg Q6HR G-TUBE 03/27/17 18:00 05/02/17 05:08 Pharmacy Profile Note 0 ml @ 0 mls/hr UNSCH OTHER 04/05/17 14:45 (Parlodel) 2.5 mg Q12HR PEG 04/07/17 21:00 05/02/17 09:34 (Pepcid) 20 mg BID PEG 04/07/17 21:00 05/02/17 09:34 (Folate) 1 mg DAILY PEG 04/08/17 09:00 05/02/17 09:33 (Keppra Liq) 1,000 mg Q12HR PEG 04/07/17 21:00 05/02/17 09:32 (KCl Powder) 20 meq DAILY PEG 04/08/17 09:00 05/02/17 09:35 (Santyl Oint) 1 applic DAILY TOPICAL 04/07/17 16:30 05/02/17 09:00 (Coumadin) 10 mg DAILY@1600 PEG 04/21/17 16:00 05/01/17 15:32 (Dakin'S 0.125% Soln) USE DAILY WITH DRESS... 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 Status: Acute (2) Seizure ICD Code: R56.9 - Unspecified convulsions Status: Acute (3) CVA (cerebral vascular accident) ICD Code: I63.9 - Cerebral infarction, unspecified Status: Acute (4) Respiratory failure, acute ICD Code: J96.00 - Acute respiratory failure, unspecified whether with hypoxia or hypercapnia Status: Acute (5) COPD (chronic obstructive pulmonary disease) ICD Code: J44.9 - Chronic obstructive pulmonary disease, unspecified Status: Chronic (6) Acute hypernatremia ICD Code: E87.0 - Hyperosmolality and hypernatremia Status: Resolved (7) Microcytic anemia ICD Code: D50.9 - Iron deficiency anemia, unspecified Assessment and Plan Ms. Rivas is a 66-year-old female with a history of stroke who was admitted to the [facility] on 11/04/2016 due to difficulty getting her thoughts together. She was found to have multifocal nonhemorrhagic infarctions in the frontal and parietal regions. She was initially awake and following commands with weakness of RLE and some aphasia. She was transferred to [facility] where he had an cerebral angiogram consistent with moyamoya. There were plans to perform extracranial/intracranial bypass. However, she had a seizure and ended up being intubated for status epilepticus 11/09 or 11/10. She was found to have a new right frontal infarct area and she was started on Dilantin and Keppra and it was felt that she would not be a candidate for intervention. She has since undergone PEG placement. Apparently family requested transfer back to [place] because they live locally and wanted her closer to home. Patient remained under critical care medicine until 12/24/2016. Viridans strep bacteremia - resolved - ID following. Per ID, sputum cx with GNR and staph aureus ? colonization. Urine with Kleb pneumo and E Coli ? colonization - Repeat blood cx 03/23 shows no growth in 5 days. 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 at [facility] October 2016 Seizure disorder - Continue Keppra 1000mg BID - Continue Tegretol 200mg q 12h - Follow for seizure activity - no recent seizure activity noted - Continue Bromocriptine - Keppra level 25.3 04/05 - Tegretol level 7.1 03/31 Hyperammonemia, resolved - continue to monitor ammonia level as indicated - off lactulose - monitor for any encephalopathy Hyponatremia - improved - monitor Na level intermittently Mixed systolic and diastolic heart failure, stable - echocardiogram 02/02/17 shows EF 35-40%, grade 3 diastolic dysfunction, severe tricuspid regurgitation, severe pulmonary HTN and severe mitral valve regurgitation. - continue Lasix 20mg daily - continue on Entresto - monitor electrolytes and renal function - monitor for s/sxs of fluid overload Chronic respiratory failure COPD Multilobar pneumonia, resolved - Pulmonary medicine following, appreciate assistance - Status post tracheostomy on 11/24/2016. Currently on T piece. Continue on Levsin prn for secretions. - completed antibiotic course with Tobramycin, course ended on 01/20/17. - Continue DuoNebs when necessary - supplement O2 to keep O2 sats > 90% Atrial fibrillation plus recent SVT - Cardiology signed off, stable - rate controlled - Continue Metoprolol 25mg q12hr and Coumadin - confirmed with Dr. Flores patient to continue Coumadin WITHOUT ASA. - INR subtherapeutic 1.6. Pharmacy to dose. Continue to monitor INR. Anasarca - Continue Lasix 20 mg daily per PEG Dysphagia Hypoalbuminemia - s/p PEG placement - continue Jevity 1.5 through PEG tube with Corby supplementation. - Continue TF continuous 60ml per hour Sacral/Coccyx wound stage IV - Specialty bed ordered, continue - Wound care following - per theirs and plastics recs - Daily cleansing the wound with gauze and dakin's solutions, then applying a nickel-thick portion of santyl to the entire wound bed, then packing with dakin's soaked gauze. This should be covered with ABD and secured with tape. - log roll q2h Anemia, microcytic, hypochromic - stable - iron studies-iron 33, TIBC 307, % sat 10.8, ferritin 346. Continue iron supplementation. - stool hemoccult negative - monitor intermittently GI Prophylaxis: Pepcid. DVT prophylaxis: SCDs. Coumadin. Full code. Discussed with nursing staff and Dr. Smith Discharge Planning Patient will need long-term care facility. CM continuing to seek placement. Tova March May 02, 2017 14:09
[2017-05-02] MEDS: WARFARIN SOD 10 MG TAB PEG SCH (16:54)
--- NOTE | 2017-05-02 19:41 | HHI.PR ---
Subjective Remarks 66 YOWF with Rf, s/p trach H/O CVA,Arango Arango disease. On trach collar Mod amount of trach secretions. no fever. Tolerates TF Objective Vital Signs Vital Signs Date Time Temp Pulse Resp B/P (MAP) Pulse Ox O2 Delivery O2 Flow Rate FiO2 05/02/17 17:40 99 T-piece 6.00 28 05/02/17 16:00 96.8 90 20 137/60 (85) 98 05/02/17 12:00 97.2 98 20 110/56 (74) 98 05/02/17 09:05 97 T-piece 05/02/17 08:00 97.7 81 20 105/53 (70) 94 05/02/17 08:00 88 05/02/17 08:00 98 Trach Collar 6.00 28 T-Piece Humidified 05/02/17 04:59 100 Trach Collar 6.00 28 T-Piece Humidified 05/02/17 04:00 98.2 95 18 108/63 (78) 100 108/ 05/02/17 00:21 Trach Collar 6.00 28 T-Piece Humidified 05/02/17 00:00 98.6 82 18 98/61 (73) 100 05/01/17 20:25 80 05/01/17 20:00 Trach Collar 6.00 28 T-Piece Humidified 05/01/17 20:00 98.1 85 18 95/56 (69) 100 05/01/17 19:52 100 T-piece 28 I/O 05/01/17 05/01/17 05/01/17 05/02/17 05/02/17 05/02/17 07:00 15:00 23:00 07:00 15:00 23:00 Intake Total 1320 ml 800 ml 1320 ml 1020 ml Output Total 1000 ml 650 ml Balance 1320 ml -1000 ml 800 ml 1320 ml 370 ml Tube Feeding 720 ml 440 ml 720 ml 720 ml Tube Irrigant 60 ml 300 ml Other 600 ml 300 ml 600 ml Output Urine Total 1000 ml 650 ml # Bowel Movements 0 2 Objective Remarks GENERAL: MBMN WF, on Trach collar SKIN: Warm and dry. HEAD: Normocephalic. EYES: No scleral icterus. No injection or drainage. NECK: Supple, trachea midline. No JVD or lymphadenopathy. has trach CARDIOVASCULAR: Regular rate and rhythm without murmurs, gallops, or rubs. RESPIRATORY: Breath sounds equal bilaterally. No accessory muscle use. GASTROINTESTINAL: Abdomen soft, non-tender, nondistended. has PEG MUSCULOSKELETAL: No cyanosis, or edema. BACK: Nontender without obvious deformity. No CVA tenderness. A/P Assessment and Plan RF, S/P Trach CVA Arango arango disease CAD COPD SZ disorder PLAN: Aerosol nebs Cont trach collar supplement 02, keep sat >90%. TF Isabella.prn PARTHA POWELL. Vernon Marx MD May 02, 2017 19:41
[2017-05-03] VITALS (9 sets, daily range): BP systolic 112–137; BP diastolic 57–66; PULSE 76–92; RESP 18–20; TEMP 98.1–98.7; O2SAT 97–100
[2017-05-03] MEDS: METOPROLOL TARTRATE 25 MG TAB G-TUBE SCH ×5 (00:07→23:39)
[2017-05-03] MEDS: HYOSCYAMINE SOLN 0.125 MG/ML 15 ML BTL G-TUBE SCH ×5 (00:07→23:39)
[2017-05-03] MEDS: CHLORHEXIDINE GLUCONATE 2 % 1 PACK (2 CLOTHS) TOP SCH (03:42)
[2017-05-03] MEDS: FREE WATER G-TUBE SCH ×3 (06:00→20:58)
[2017-05-03] MEDS: CHLORHEXIDINE 0.12% (ORAL KIT) 15 ML CUP MT SCH ×2 (08:00→20:57)
[2017-05-03] MEDS: SENNOSIDES SYRUP 8.8 MG/5 ML CUP G-TUBE SCH ×2 (08:21→20:56)
[2017-05-03] MEDS: levETIRAcetam 500 MG/5 ML UDC PEG SCH ×2 (08:21→20:56)
[2017-05-03] MEDS: FUROSEMIDE 20 MG TAB PEG SCH (08:21)
[2017-05-03] MEDS: SACUBITRIL/VALSARTAN 24 MG-26 MG TAB PEG SCH ×2 (08:21→20:56)
[2017-05-03] MEDS: FOLIC ACID 1 MG TAB PEG SCH (08:21)
[2017-05-03] MEDS: ATORVASTATIN 40 MG TAB G-TUBE SCH (08:21)
[2017-05-03] MEDS: ASCORBIC ACID 500 MG TAB PEG SCH ×2 (08:21→20:56)
[2017-05-03] MEDS: FERROUS SULFATE 300 MG /5ML UDC PEG SCH ×2 (08:21→20:56)
[2017-05-03] MEDS: BROMOCRIPTINE MESYLATE 2.5 MG TAB PEG SCH ×2 (08:21→20:56)
[2017-05-03] MEDS: FAMOTIDINE 20 MG TAB PEG SCH ×2 (08:22→20:56)
[2017-05-03] MEDS: SODIUM CHLORIDE 0.9% FLUSH 10 ML FLUSH IV FLUSH SCH ×2 (08:22→20:57)
[2017-05-03] MEDS: carBAMazepine SUSP 200 MG/10 ML UDC PEG SCH ×2 (08:22→20:58)
[2017-05-03] MEDS: POTASSIUM CHLORIDE 20 MEQ PWD PACKET PEG SCH (08:23)
[2017-05-03] MEDS: JUVEN POWDER 1 PACK G-TUBE SCH ×2 (08:23→20:56)
[2017-05-03 08:29] LABS: AUTOMATED NEUTROPHIL # 6.8 TH/MM3 (1.8-7.7); BASOPHIL # 0.1 TH/MM3 (0-0.2); BASOPHIL % 0.8 % (0.0-2.0); EOSINOPHIL # 0.3 TH/MM3 (0-0.4); EOSINOPHIL % 3.2 % (0.0-4.0); HEMATOCRIT 30.3 % (35.0-46.0); HEMO FLAGS DIFF FINAL; LYMPHOCYTE # 1.8 TH/MM3 (1.0-4.8); MEAN CELL VOLUME 74.4 FL (80.0-100.0); MEAN CORPUSCULAR HEMOGLOBIN 23.4 PG (27.0-34.0); MEAN CORPUSCULAR HGB CONC 31.4 % (32.0-36.0); MONO % 7.2 % (0.0-8.0); NEUT % 69.8 % (16.0-70.0); PLATELET COUNT 583 TH/MM3 (150-450); RED BLOOD COUNT 4.07 MIL/MM3 (4.00-5.30); RED CELL DISTRIBUTION WIDTH 20.9 % (11.6-17.2); WHITE BLOOD COUNT 9.7 TH/MM3 (4.0-11.0)
[2017-05-03 08:33] LABS: INTERNATIONAL NORMALIZED RATIO 1.9 RATIO; PROTHROMBIN TIME - PATIENT 21.6 SEC (9.8-11.6)
[2017-05-03] MEDS: COLLAGENASE OINT 30 GM TUBE TOPICAL SCH (08:38)
[2017-05-03] MEDS: SODIUM HYPOCHLORITE 0.125% 500 ML BTL TOPICAL SCH (08:38)
[2017-05-03] MEDS: POVIDONE IODINE 10% OINT 30 GM TUBE TOPICAL SCH (08:39)
[2017-05-03 08:49] LABS: BICARBONATE 29.8 MEQ/L (21.0-32.0); MAGNESIUM 2.2 MG/DL (1.5-2.5); POTASSIUM 4.2 MEQ/L (3.5-5.1)
--- NOTE | 2017-05-03 10:44 | HHI.PR ---
Subjective Remarks Follow up on patient with Jensen Jensen dz, bilateral frontal CVA. Patient seen and examined. Lying in bed awake, tracks occasionally with eyes. Does not follow commands. Able to hand grasp bilaterally. No reports of any acute events overnight. Afebrile. VSS. Continued trach collar. Objective Vitals Vital Signs Date Time Temp Pulse Resp B/P (MAP) Pulse Ox O2 Delivery O2 Flow Rate FiO2 05/03/17 08:40 90 05/03/17 08:40 T-Piece 6.00 28 05/03/17 08:36 97 T-piece 5.00 28 05/03/17 08:00 98.7 87 18 121/60 (80) 98 05/03/17 04:54 98.3 92 20 137/65 (89) 99 05/03/17 04:00 T-Piece 6.00 28 05/03/17 00:00 T-Piece 6.00 28 05/02/17 23:45 96.7 91 20 106/52 (70) 99 05/02/17 20:31 74 05/02/17 20:00 T-Piece 6.00 28 05/02/17 19:55 96.4 87 20 125/61 (82) 100 Automatic Cuff 05/02/17 17:40 99 T-piece 6.00 28 05/02/17 16:00 96.8 90 20 137/60 (85) 98 05/02/17 12:00 97.2 98 20 110/56 (74) 98 I/O 05/02/17 05/02/17 05/02/17 05/03/17 05/03/17 05/03/17 07:00 15:00 23:00 07:00 15:00 23:00 Intake Total 1320 ml 1020 ml 0 ml Output Total 650 ml 400 ml Balance 1320 ml 370 ml -400 ml Intake Oral 0 ml Tube Feeding 720 ml 720 ml Tube Irrigant 300 ml Other 600 ml Output Urine Total 650 ml 400 ml # Bowel Movements 2 1 Result Diagram: 05/03/17 0654 05/03/17 0654 Imaging Last Impressions Chest X-Ray 03/20/17 0000 Signed Impressions: Service Date/Time: Monday, March 20, 2017 11:37 - CONCLUSION: Stable appearance with no acute cardiopulmonary disease. Lenny Kerns MD Abdomen X-Ray 02/11/17 0000 Signed Impressions: Service Date/Time: Saturday, February 11, 2017 17:52 - CONCLUSION: Minimal colonic distention. Kenneth Frost MD FACR Catheter Change 02/10/17 0000 Signed Impressions: Service Date/Time: February 13:47 - CONCLUSION: Uncomplicated fluoroscopic guided gastrostomy tube replacement. Positioning confirmed. The tube can be used immediately. Nghia Pacheco MD Lower Extremity Ultrasound 02/01/17 0000 Signed Impressions: Service Date/Time: Wednesday, February 01, 2017 13:23 - CONCLUSION: Normal examination. 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 Sami Mccarthy MD Objective Remarks GENERAL: WDWN female, lying in hospital bed, INAD. Eyes open to voice. Does not track. SKIN: Warm and dry. (+)sacrococcygeal area - stage IV decub ulcer. HEENT: Normocephalic. No nasal bleeding or discharge noted. Dry mucus membranes. NECK: Trachea midline. T piece in place with scant secretions noted in tubing. CARDIOVASCULAR: Regular rate and rhythm without murmurs, gallops, or rubs. RESPIRATORY: Upper airway sounds noted. No accessory muscle use. GASTROINTESTINAL: Abdomen soft, non-tender, nondistended. PEG in place, site unchanged. MUSCULOSKELETAL: No cyanosis. Bilateral SCDs in place. 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 NEUROLOGICAL: Nonverbal. Able to grasp finger. No spontaneous movement appreciated. Procedures 11/24/2016 Percutaneous tracheostomy. 11/18/2016 Moderate encephalopathy with suggestion of left temporal region cortical irritability. No active seizures. Clinical correlation. Echocardiogram Severe dilated left ventricle. Wall thickness is normal. The left ventricular systolic function is moderately reduced with an estimated ejection fraction in the range of 35-40%. Doppler parameters are consistent with a restrictive left ventricular filling pattern indicative of decreased left ventricular diastolic compliance and increase left atrial pressure (grade 3 diastolic dysfunction). There is severe tricuspid regurgitation. There is severe pulmonary hypertension present ( > 70 mmHg). Severe mitral valve regurgitation. 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 Status: Acute (2) Seizure ICD Code: R56.9 - Unspecified convulsions Status: Acute (3) CVA (cerebral vascular accident) ICD Code: I63.9 - Cerebral infarction, unspecified Status: Acute (4) Respiratory failure, acute ICD Code: J96.00 - Acute respiratory failure, unspecified whether with hypoxia or hypercapnia Status: Acute (5) COPD (chronic obstructive pulmonary disease) ICD Code: J44.9 - Chronic obstructive pulmonary disease, unspecified Status: Chronic (6) Acute hypernatremia ICD Code: E87.0 - Hyperosmolality and hypernatremia Status: Resolved (7) Microcytic anemia ICD Code: D50.9 - Iron deficiency anemia, unspecified Assessment and Plan Ms. Rivas is a 66-year-old female with a history of stroke who was admitted to the [facility] on 11/04/2016 due to difficulty getting her thoughts together. She was found to have multifocal nonhemorrhagic infarctions in the frontal and parietal regions. She was initially awake and following commands with weakness of RLE and some aphasia. She was transferred to [facility] where he had an cerebral angiogram consistent with moyamoya. There were plans to perform extracranial/intracranial bypass. However, she had a seizure and ended up being intubated for status epilepticus 11/09 or 11/10. She was found to have a new right frontal infarct area and she was started on Dilantin and Keppra and it was felt that she would not be a candidate for intervention. She has since undergone PEG placement. Apparently family requested transfer back to [place] because they live locally and wanted her closer to home. Patient remained under critical care medicine until 12/24/2016. Viridans strep bacteremia - resolved - ID following. Per ID, sputum cx with GNR and staph aureus ? colonization. Urine with Kleb pneumo and E Coli ? colonization - Repeat blood cx 03/23 shows no growth in 5 days. 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 at [facility] October 2016 Seizure disorder - Continue Keppra 1000mg BID - Continue Tegretol 200mg q 12h - Follow for seizure activity - no recent seizure activity noted - Continue Bromocriptine - Keppra level 25.3 04/05 - Tegretol level 7.1 03/31 Hyperammonemia, resolved. - continue to monitor ammonia level as indicated - off lactulose - monitor for any encephalopathy Hyponatremia, improved. - monitor Na level intermittently Mixed systolic and diastolic heart failure, stable - echocardiogram 02/02/17 shows EF 35-40%, grade 3 diastolic dysfunction, severe tricuspid regurgitation, severe pulmonary HTN and severe mitral valve regurgitation. - continue Lasix 20mg daily - continue on Entresto - monitor electrolytes and renal function - monitor for s/sxs of fluid overload Chronic respiratory failure COPD Multilobar pneumonia, resolved - Pulmonary medicine following, appreciate assistance - Status post tracheostomy on 11/24/2016. Currently on T piece. Continue on Levsin prn for secretions. - completed antibiotic course with Tobramycin, course ended on 01/20/17. - Continue DuoNebs when necessary - supplement O2 to keep O2 sats > 90% Atrial fibrillation - Cardiology signed off, stable - rate controlled - Continue Metoprolol 50 mg q6hr and Coumadin - confirmed with Dr. Flores patient to continue Coumadin WITHOUT ASA. - INR subtherapeutic 1.9. Pharmacy to dose. Continue to monitor INR. Anasarca, improved. - Continue Lasix 20 mg daily per PEG Dysphagia Hypoalbuminemia - s/p PEG placement - continue Glucerna 1.5 60 ml/hr through PEG tube with Corby supplementation. Sacral/Coccyx wound stage IV - Specialty bed ordered, continue - Wound care following - Apply nickel thick Santyl to necrotic tissue in wound bed prior to packing with Quarter strength Dakins moist to dry gauze dressing.This should be covered with ABD and secured with tape. - log roll q2h Anemia, microcytic, hypochromic - stable - iron studies-iron 33, TIBC 307, % sat 10.8, ferritin 346. Continue iron supplementation. - stool Hemoccult negative - monitor intermittently GI Prophylaxis: Pepcid. DVT prophylaxis: SCDs. Coumadin. Full code. Discussed with nursing staff and Dr. Smith Discharge Planning Patient will need long-term care facility. CM continuing to seek placement. Jackie WalshP May 03, 2017 10:44
[2017-05-03] MEDS: WARFARIN SOD 10 MG TAB PEG SCH (17:14)
[2017-05-03 18:32] LABS: BLOOD GAS BASE EXCESS 5.9 mmol/L (-2-2); BLOOD GAS CARBOXYHEMOGLOBIN 1.7 % (0-4); BLOOD GAS HCO3 29 mmol/L (22-26); BLOOD GAS METHEMOGLOBIN 0.5 % (0-2); BLOOD GAS O2 HGB SATURATION 97 % (90-100); BLOOD GAS OXYGEN CONTENT 12.3 Vol % (12.0-20.0); BLOOD GAS PCO2 39 mmHg (38-42); BLOOD GAS PO2 151 mmHg (61-120); BLOOD GAS TOTAL HGB 8.7 G/DL (12.0-16.0); CRITICAL VALUE NO; FIO2 28 %; LITER FLOW 5 L/M; OXYGEN DEVICE MASK; TEMP CORR TO 98.6
[2017-05-03 18:33] LABS: DRAW SITE RT RADIAL; NUMBER OF ARTERIAL PUNCTURES 1; STAT NO; ULNAR PULSE PRESENT
--- NOTE | 2017-05-03 18:36 | RADRPT ---
EXAM DATE/TIME: 05/03/2017 18:00 [place] COMPARISON: CHEST SINGLE AP, March 20, 2017, 11:37. INDICATIONS : Congestion. MEDICAL HISTORY : Hypertension. Cerebrovascular disease. Chronic obstructive pulmonary disease. Coronary artery di sease with history of myocardial infarction SURGICAL HISTORY : None. ENCOUNTER: Subsequent ACUITY: 4 - 6 days PAIN SCORE: Non-responsive. LOCATION: Bilateral chest FINDINGS: Mild coarse chronic appearing interstitial opacities are again seen without evidence of an acute infi ltrate. No pleural effusion. No pneumothorax. Heart size stable, upper limits of normal. Tortuous and atherosclerotic aorta again seen. Tracheostom y tube remains in place. CONCLUSION: Similar findings to the March comparison with interstitial opacities and borderline cardiomegaly wit h a tracheostomy tube. No acute lobar consolidation demonstrated. Nghia Nuno MD on May 03, 2017 at 18:33 Board Certified Radiologist. This report was verified electronically.
--- NOTE | 2017-05-03 18:40 | HHI.PR ---
Subjective Remarks 66 YOWF with Rf, s/p trach H/O CVA,Arango Arango disease. On trach collar Mod amount of trach secretions. no fever. Tolerates TF ABG on 28% trach collar 7.39 Objective Vital Signs Vital Signs Date Time Temp Pulse Resp B/P (MAP) Pulse Ox O2 Delivery O2 Flow Rate FiO2 05/03/17 17:03 99 T-piece 6.00 28 05/03/17 17:02 99 T-piece 6.00 28 05/03/17 16:00 98.5 85 18 112/66 (81) 99 05/03/17 12:00 98.7 91 18 115/57 (76) 99 05/03/17 08:40 90 05/03/17 08:40 T-Piece 6.00 28 05/03/17 08:36 97 T-piece 5.00 28 05/03/17 08:00 98.7 87 18 121/60 (80) 98 05/03/17 04:54 98.3 92 20 137/65 (89) 99 05/03/17 04:00 T-Piece 6.00 28 05/03/17 00:00 T-Piece 6.00 28 05/02/17 23:45 96.7 91 20 106/52 (70) 99 05/02/17 20:31 74 05/02/17 20:00 T-Piece 6.00 05/02/17 19:55 96.4 87 20 125/61 (82) 100 Automatic Cuff I/O 05/02/17 05/02/17 05/02/17 05/03/17 05/03/17 05/03/17 07:00 15:00 23:00 07:00 15:00 23:00 Intake Total 1320 ml 1020 ml 0 ml 1833 ml Output Total 650 ml 400 ml 400 ml Balance 1320 ml 370 ml -400 ml 1433 ml Intake Oral 0 ml 0 ml Tube Feeding 720 ml 720 ml 1833 ml Tube Irrigant 300 ml Other 600 ml Output Urine Total 650 ml 400 ml 400 ml # Bowel Movements 2 1 1 Result Diagram: 05/03/17 0654 05/03/17 0654 Objective Remarks GENERAL: MBMN WF, on Trach collar SKIN: Warm and dry. HEAD: Normocephalic. EYES: No scleral icterus. No injection or drainage. NECK: Supple, trachea midline. No JVD or lymphadenopathy. has trach CARDIOVASCULAR: Regular rate and rhythm without murmurs, gallops, or rubs. RESPIRATORY: Breath sounds equal bilaterally. No accessory muscle use. GASTROINTESTINAL: Abdomen soft, non-tender, nondistended. has PEG MUSCULOSKELETAL: No cyanosis, or edema. BACK: Nontender without obvious deformity. No CVA tenderness. A/P Assessment and Plan RF, S/P Trach CVA Arango arango disease CAD COPD SZ disorder PLAN: Aerosol nebs Cont trach collar supplement 02, keep sat >90%. TF Levsin.prn PARTHA RN. Wean 02 Vernon Marx MD May 03, 2017 18:40
[2017-05-04] VITALS (9 sets, daily range): BP systolic 104–142; BP diastolic 59–68; PULSE 86–102; RESP 16–18; TEMP 97.7–98.9; O2SAT 96–100
[2017-05-04] MEDS: CHLORHEXIDINE GLUCONATE 2 % 1 PACK (2 CLOTHS) TOP SCH (02:44)
[2017-05-04] MEDS: HYOSCYAMINE SOLN 0.125 MG/ML 15 ML BTL G-TUBE SCH ×3 (05:02→16:50)
[2017-05-04] MEDS: FREE WATER G-TUBE SCH ×3 (05:02→22:27)
[2017-05-04] MEDS: METOPROLOL TARTRATE 25 MG TAB G-TUBE SCH ×3 (05:04→16:49)
[2017-05-04] MEDS: CHLORHEXIDINE 0.12% (ORAL KIT) 15 ML CUP MT SCH ×2 (08:00→22:28)
[2017-05-04] MEDS: carBAMazepine SUSP 200 MG/10 ML UDC PEG SCH ×2 (08:36→22:26)
[2017-05-04] MEDS: SENNOSIDES SYRUP 8.8 MG/5 ML CUP G-TUBE SCH ×2 (08:36→22:21)
[2017-05-04] MEDS: levETIRAcetam 500 MG/5 ML UDC PEG SCH ×2 (08:36→22:23)
[2017-05-04] MEDS: SACUBITRIL/VALSARTAN 24 MG-26 MG TAB PEG SCH ×2 (08:37→22:22)
[2017-05-04] MEDS: BROMOCRIPTINE MESYLATE 2.5 MG TAB PEG SCH ×2 (08:37→22:24)
[2017-05-04] MEDS: SODIUM HYPOCHLORITE 0.125% 500 ML BTL TOPICAL SCH (08:37)
[2017-05-04] MEDS: FOLIC ACID 1 MG TAB PEG SCH (08:37)
[2017-05-04] MEDS: FUROSEMIDE 20 MG TAB PEG SCH (08:37)
[2017-05-04] MEDS: ASCORBIC ACID 500 MG TAB PEG SCH ×2 (08:37→22:25)
[2017-05-04] MEDS: ATORVASTATIN 40 MG TAB G-TUBE SCH (08:37)
[2017-05-04] MEDS: FAMOTIDINE 20 MG TAB PEG SCH ×2 (08:37→22:24)
[2017-05-04] MEDS: FERROUS SULFATE 300 MG /5ML UDC PEG SCH ×2 (08:37→22:23)
[2017-05-04] MEDS: COLLAGENASE OINT 30 GM TUBE TOPICAL SCH (08:38)
[2017-05-04] MEDS: SODIUM CHLORIDE 0.9% FLUSH 10 ML FLUSH IV FLUSH SCH ×2 (08:38→22:21)
[2017-05-04] MEDS: POTASSIUM CHLORIDE 20 MEQ PWD PACKET PEG SCH (08:55)
[2017-05-04] MEDS: JUVEN POWDER 1 PACK G-TUBE SCH ×2 (08:55→22:27)
[2017-05-04] MEDS: POVIDONE IODINE 10% OINT 30 GM TUBE TOPICAL SCH (08:57)
[2017-05-04 09:15] LABS: INTERNATIONAL NORMALIZED RATIO 1.8 RATIO; PROTHROMBIN TIME - PATIENT 20.4 SEC (9.8-11.6)
--- NOTE | 2017-05-04 09:29 | HHI.PR ---
Subjective Remarks Follow up on patient with Jensen Jensen dz, bilateral frontal CVA. Patient seen and examined. Lying in bed sleeping, awakens to voice. Does not follow commands. Tracking with eyes. Finger grasp in bilateral upper extremities. Continue on t-collar, to 28% FiO2. Normal respirations, occasional Mahad marcelo. Afebrile. Vitals stable. Objective Vitals Vital Signs Date Time Temp Pulse Resp B/P (MAP) Pulse Ox O2 Delivery O2 Flow Rate FiO2 05/04/17 08:00 98.8 91 18 123/60 (81) 98 05/04/17 04:00 98.5 99 18 105/64 (78) 100 05/04/17 04:00 T-Piece 6.00 28 05/04/17 00:00 T-Piece 6.00 28 05/04/17 00:00 97.7 99 18 105/64 (78) 100 05/03/17 20:00 T-Piece 6.00 28 05/03/17 20:00 98.1 87 18 119/59 (79) 100 05/03/17 20:00 76 05/03/17 17:03 99 T-piece 6.00 28 05/03/17 17:02 99 T-piece 6.00 28 05/03/17 16:00 98.5 85 18 112/66 (81) 99 05/03/17 12:00 98.7 91 18 115/57 (76) 99 I/O 05/03/17 05/03/17 05/03/17 05/04/17 05/04/17 05/04/17 07:00 15:00 23:00 07:00 15:00 23:00 Intake Total 0 ml 1833 ml 1200 ml Output Total 400 ml 400 ml 1200 ml Balance -400 ml 1433 ml 0 ml Intake Oral 0 ml 0 ml Tube Feeding 1833 ml 600 ml Tube Irrigant 600 ml Output Urine Total 400 ml 400 ml 1200 ml # Bowel Movements 1 1 2 Result Diagram: 05/03/17 0654 05/03/17 0654 Imaging Last Impressions Chest X-Ray 05/03/17 0000 Signed Impressions: Service Date/Time: Wednesday, May 03, 2017 18:00 - CONCLUSION: Similar findings to the March comparison with interstitial opacities and borderline cardiomegaly with a tracheostomy tube. No acute lobar consolidation demonstrated. Nghia Nuno MD Abdomen X-Ray 02/11/17 0000 Signed Impressions: Service Date/Time: Saturday, February 11, 2017 17:52 - CONCLUSION: Minimal colonic distention. Kenneth Frost MD FACR Catheter Change 02/10/17 0000 Signed Impressions: Service Date/Time: February 13:47 - CONCLUSION: Uncomplicated fluoroscopic guided gastrostomy tube replacement. Positioning confirmed. The tube can be used immediately. Nghia Pacheco MD Lower Extremity Ultrasound 02/01/17 0000 Signed Impressions: Service Date/Time: Wednesday, February 01, 2017 13:23 - CONCLUSION: Normal examination. 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 Sami Mccarthy MD Objective Remarks GENERAL: WDWN female, lying in hospital bed, INAD. Eyes open to voice. Does not track. SKIN: Warm and dry. (+)sacrococcygeal area - stage IV decub ulcer. HEENT: Normocephalic. No nasal bleeding or discharge noted. Dry mucus membranes. NECK: Trachea midline. T piece in place with scant secretions noted in tubing. CARDIOVASCULAR: Regular rate and rhythm without murmurs, gallops, or rubs. RESPIRATORY: Upper airway sounds noted. No accessory muscle use. GASTROINTESTINAL: Abdomen soft, non-tender, nondistended. PEG in place, site unchanged. MUSCULOSKELETAL: No cyanosis. Bilateral SCDs in place. Band Saw Filer fingers. NEUROLOGICAL: Nonverbal. Able to grasp finger. No spontaneous movement appreciated. Procedures 11/24/2016 Percutaneous tracheostomy. 11/18/2016 Moderate encephalopathy with suggestion of left temporal region cortical irritability. No active seizures. Clinical correlation. Echocardiogram Severe dilated left ventricle. Wall thickness is normal. The left ventricular systolic function is moderately reduced with an estimated ejection fraction in the range of 35-40%. Doppler parameters are consistent with a restrictive left ventricular filling pattern indicative of decreased left ventricular diastolic compliance and increase left atrial pressure (grade 3 diastolic dysfunction). There is severe tricuspid regurgitation. There is severe pulmonary hypertension present ( > 70 mmHg). Severe mitral valve regurgitation. 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 Status: Acute (2) Seizure ICD Code: R56.9 - Unspecified convulsions Status: Acute (3) CVA (cerebral vascular accident) ICD Code: I63.9 - Cerebral infarction, unspecified Status: Acute (4) Respiratory failure, acute ICD Code: J96.00 - Acute respiratory failure, unspecified whether with hypoxia or hypercapnia Status: Acute (5) COPD (chronic obstructive pulmonary disease) ICD Code: J44.9 - Chronic obstructive pulmonary disease, unspecified Status: Chronic (6) Acute hypernatremia ICD Code: E87.0 - Hyperosmolality and hypernatremia Status: Resolved (7) Microcytic anemia ICD Code: D50.9 - Iron deficiency anemia, unspecified Assessment and Plan Ms. Rivas is a 66-year-old female with a history of stroke who was admitted to the [facility] on 11/04/2016 due to difficulty getting her thoughts together. She was found to have multifocal nonhemorrhagic infarctions in the frontal and parietal regions. She was initially awake and following commands with weakness of RLE and some aphasia. She was transferred to [facility] where he had an cerebral angiogram consistent with moyamoya. There were plans to perform extracranial/intracranial bypass. However, she had a seizure and ended up being intubated for status epilepticus 11/09 or 11/10. She was found to have a new right frontal infarct area and she was started on Dilantin and Keppra and it was felt that she would not be a candidate for intervention. She has since undergone PEG placement. Apparently family requested transfer back to [place] because they live locally and wanted her closer to home. Patient remained under critical care medicine until 12/24/2016. Viridans strep bacteremia - resolved. Per ID, sputum cx with GNR and staph aureus ? colonization. Urine with Kleb pneumo and E Coli ? colonization - Repeat blood cx 03/23 shows no growth in 5 days. - Status post IV Rocephin ended 04/05/17 per ID - continue precautions Bilateral frontal CVA Moyamoya - confirmed by arteriogram at [facility] October 2016 Seizure disorder - Continue Keppra 1000mg BID - Continue Tegretol 200mg q 12h - Follow for seizure activity - no recent seizure activity noted - Continue Bromocriptine - Keppra level 25.3 04/05 - Tegretol level 7.1 03/31 Hyperammonemia, resolved. - continue to monitor ammonia level as indicated - off lactulose - monitor for any encephalopathy Hyponatremia, improved. - monitor Na level intermittently. BMP reviewed Na 136. Mixed systolic and diastolic heart failure, stable - echocardiogram 02/02/17 shows EF 35-40%, grade 3 diastolic dysfunction, severe tricuspid regurgitation, severe pulmonary HTN and severe mitral valve regurgitation. - continue Lasix 20mg daily - continue on Entresto - monitor electrolytes and renal function - monitor for s/sxs of fluid overload Chronic respiratory failure COPD Multilobar pneumonia, resolved - Pulmonary medicine following, appreciate assistance - Status post tracheostomy on 11/24/2016. Currently on T piece. Continue on Levsin prn for secretions. - completed antibiotic course with Tobramycin, course ended on 01/20/17. - Continue DuoNebs when necessary - supplement O2 to keep O2 sats > 90% Atrial fibrillation - Cardiology signed off, stable - rate controlled - Continue Metoprolol 50 mg q6hr and Coumadin - confirmed with Dr. Flores patient to continue Coumadin WITHOUT ASA. - INR 1.9. Pharmacy to dose. Continue to monitor INR. Anasarca, improved. - Continue Lasix 20 mg daily per PEG Dysphagia Hypoalbuminemia - s/p PEG placement - continue Glucerna 1.5 60 ml/hr through PEG tube with Corby supplementation. Sacral/Coccyx wound stage IV - Specialty bed ordered, continue - Wound care following - Apply nickel thick Santyl to necrotic tissue in wound bed prior to packing with Quarter strength Dakins moist to dry gauze dressing.This should be covered with ABD and secured with tape. - log roll q2h Anemia, microcytic, hypochromic - stable - iron studies-iron 33, TIBC 307, % sat 10.8, ferritin 346. Continue iron supplementation. - stool Hemoccult negative - monitor intermittently GI Prophylaxis: Pepcid. DVT prophylaxis: SCDs. Coumadin. Full code. Discussed with nursing staff and Dr. Smith Discharge Planning Patient will need long-term care facility. CM continuing to seek placement. Jackie Walsh May 04, 2017 09:29
--- NOTE | 2017-05-04 14:59 | EKG ---
Date Performed: 05/03/2017 Time Performed: 22:12:22 PTAGE: 66 years EKG: Sinus rhythm LEFT ANTERIOR FASCICULAR BLOCK INFERIOR MYOCARDIAL INFARCTION , PROBABLY OLD ANTEROSEPTAL MYOCARDIAL INFARCTION , OF INDETERMINATE AGE ABNORMAL ECG PREVIOUS TRACING : 03/27/2017 10.50 Compared to the previous tracing narrow complex tachycardia no longer present DOCTOR: Klaus Panchal Interpretating Date/Time 05/04/2017 14:57:32
[2017-05-04] MEDS ORDERED: WARFARIN SOD 2.5 MG TAB PEG ONE (16:00)
[2017-05-04] MEDS: WARFARIN SOD 10 MG TAB PEG SCH (16:49)
--- NOTE | 2017-05-04 17:18 | HHI.PR ---
Subjective Remarks 66 YOWF with Rf, s/p trach H/O CVA,Arango Arango disease. On trach collar Mod amount of trach secretions. no fever. Tolerates TF Objective Vital Signs Vital Signs Date Time Temp Pulse Resp B/P (MAP) Pulse Ox O2 Delivery O2 Flow Rate FiO2 05/04/17 16:00 98.8 91 18 104/67 (79) 96 05/04/17 12:00 98.9 98 18 124/59 (80) 99 05/04/17 08:50 T-Piece 6.00 28 05/04/17 08:50 93 05/04/17 08:45 100 T-piece 28 05/04/17 08:00 98.8 91 18 123/60 (81) 98 05/04/17 04:00 98.5 99 18 105/64 (78) 100 05/04/17 04:00 T-Piece 6.00 28 05/04/17 00:00 T-Piece 6.00 28 05/04/17 00:00 97.7 99 18 105/64 (78) 100 05/03/17 20:00 T-Piece 6.00 28 05/03/17 20:00 98.1 87 18 119/59 (79) 100 05/03/17 20:00 76 I/O 05/03/17 05/03/17 05/03/17 05/04/17 05/04/17 05/04/17 07:00 15:00 23:00 07:00 15:00 23:00 Intake Total 0 ml 1833 ml 1200 ml Output Total 400 ml 400 ml 1200 ml Balance -400 ml 1433 ml 0 ml Intake Oral 0 ml 0 ml Tube Feeding 1833 ml 600 ml Tube Irrigant 600 ml Output Urine Total 400 ml 400 ml 1200 ml # Bowel Movements 1 1 2 Result Diagram: 05/03/17 0654 05/03/17 0654 Objective Remarks GENERAL: MBMN WF, on Trach collar SKIN: Warm and dry. HEAD: Normocephalic. EYES: No scleral icterus. No injection or drainage. NECK: Supple, trachea midline. No JVD or lymphadenopathy. has trach CARDIOVASCULAR: Regular rate and rhythm without murmurs, gallops, or rubs. RESPIRATORY: Breath sounds equal bilaterally. No accessory muscle use. GASTROINTESTINAL: Abdomen soft, non-tender, nondistended. has PEG MUSCULOSKELETAL: No cyanosis, or edema. BACK: Nontender without obvious deformity. No CVA tenderness. A/P Assessment and Plan RF, S/P Trach CVA Arango arango disease CAD COPD SZ disorder PLAN: Aerosol nebs Cont trach collar supplement 02, keep sat >90%. TF Levsin.prn PARTHA RN. Wean 02 Vernon Marx MD May 04, 2017 17:18
[2017-05-05] VITALS (11 sets, daily range): BP systolic 107–140; BP diastolic 56–68; PULSE 85–102; RESP 16–20; TEMP 97.5–98.9; O2SAT 96–100
[2017-05-05] MEDS: METOPROLOL TARTRATE 25 MG TAB G-TUBE SCH ×4 (00:22→18:02)
[2017-05-05] MEDS: HYOSCYAMINE SOLN 0.125 MG/ML 15 ML BTL G-TUBE SCH ×4 (00:22→17:26)
[2017-05-05] MEDS: CHLORHEXIDINE GLUCONATE 2 % 1 PACK (2 CLOTHS) TOP SCH (04:37)
[2017-05-05] MEDS: FREE WATER G-TUBE SCH ×3 (05:23→21:02)
[2017-05-05] MEDS: CHLORHEXIDINE 0.12% (ORAL KIT) 15 ML CUP MT SCH ×2 (08:00→20:00)
[2017-05-05] MEDS: SACUBITRIL/VALSARTAN 24 MG-26 MG TAB PEG SCH ×2 (08:55→21:01)
[2017-05-05] MEDS: FERROUS SULFATE 300 MG /5ML UDC PEG SCH ×2 (08:55→21:00)
[2017-05-05] MEDS: ATORVASTATIN 40 MG TAB G-TUBE SCH (08:55)
[2017-05-05] MEDS: BROMOCRIPTINE MESYLATE 2.5 MG TAB PEG SCH ×2 (08:55→21:00)
[2017-05-05] MEDS: carBAMazepine SUSP 200 MG/10 ML UDC PEG SCH ×2 (08:55→21:00)
[2017-05-05] MEDS: FAMOTIDINE 20 MG TAB PEG SCH ×2 (08:56→21:01)
[2017-05-05] MEDS: ASCORBIC ACID 500 MG TAB PEG SCH ×2 (08:56→21:00)
[2017-05-05] MEDS: FOLIC ACID 1 MG TAB PEG SCH (08:56)
[2017-05-05] MEDS: SENNOSIDES SYRUP 8.8 MG/5 ML CUP G-TUBE SCH ×2 (08:57→21:00)
[2017-05-05] MEDS: levETIRAcetam 500 MG/5 ML UDC PEG SCH ×2 (08:57→21:00)
[2017-05-05] MEDS: FUROSEMIDE 20 MG TAB PEG SCH (08:57)
[2017-05-05] MEDS: POTASSIUM CHLORIDE 20 MEQ PWD PACKET PEG SCH (08:57)
[2017-05-05] MEDS: SODIUM CHLORIDE 0.9% FLUSH 10 ML FLUSH IV FLUSH SCH ×2 (08:58→21:01)
[2017-05-05] MEDS: POVIDONE IODINE 10% OINT 30 GM TUBE TOPICAL SCH (09:00)
[2017-05-05] MEDS: JUVEN POWDER 1 PACK G-TUBE SCH ×2 (09:00→21:00)
[2017-05-05] MEDS: COLLAGENASE OINT 30 GM TUBE TOPICAL SCH (09:03)
[2017-05-05] MEDS: SODIUM HYPOCHLORITE 0.125% 500 ML BTL TOPICAL SCH (09:03)
--- NOTE | 2017-05-05 11:08 | HHI.PR ---
Subjective Remarks Follow-up visit moyamoya disease, bilateral frontal CVA. Patient seen and examined today. Laying in bed, eyes open. Does not follow any commands or track. Patient noted to have facial grimacing when bilateral hallux is touched. Continue on tracheostomy collar 28% FiO2. Appears comfortable. Objective Vitals Vital Signs Date Time Temp Pulse Resp B/P (MAP) Pulse Ox O2 Delivery O2 Flow Rate FiO2 05/05/17 08:30 99 T-piece 28 05/05/17 08:00 98.9 102 18 124/60 (81) 99 05/05/17 07:50 T-Piece 6.00 28 05/05/17 05:23 98.7 99 16 129/68 (88) 100 05/05/17 00:10 98.7 101 16 128/68 (88) 100 05/04/17 21:38 98.8 102 16 142/68 (92) 100 05/04/17 20:00 T-Piece 6.00 05/04/17 20:00 86 05/04/17 16:00 98.8 91 18 104/67 (79) 96 05/04/17 12:00 98.9 98 18 124/59 (80) 99 I/O 05/04/17 05/04/17 05/04/17 05/05/17 05/05/17 05/05/17 07:00 15:00 23:00 07:00 15:00 23:00 Intake Total 1200 ml 1135 ml 0 ml Output Total 1200 ml 900 ml 850 ml Balance 0 ml 235 ml -850 ml Intake Oral 0 ml 0 ml Tube Feeding 600 ml 1135 ml Tube Irrigant 600 ml Output Urine Total 1200 ml 900 ml 850 ml # Bowel Movements 2 1 0 Result Diagram: 05/03/17 0654 05/03/17 0654 Imaging Last Impressions Chest X-Ray 05/03/17 0000 Signed Impressions: Service Date/Time: Wednesday, May 03, 2017 18:00 - CONCLUSION: Similar findings to the March comparison with interstitial opacities and borderline cardiomegaly with a tracheostomy tube. No acute lobar consolidation demonstrated. Nghia Nuno MD Abdomen X-Ray 02/11/17 0000 Signed Impressions: Service Date/Time: Saturday, February 11, 2017 17:52 - CONCLUSION: Minimal colonic distention. Kenneth Frost MD FACR Catheter Change 02/10/17 0000 Signed Impressions: Service Date/Time: February 13:47 - CONCLUSION: Uncomplicated fluoroscopic guided gastrostomy tube replacement. Positioning confirmed. The tube can be used immediately. Nghia Pacheco MD Lower Extremity Ultrasound 02/01/17 0000 Signed Impressions: Service Date/Time: Wednesday, February 01, 2017 13:23 - CONCLUSION: Normal examination. 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 Sami Mccarthy MD Objective Remarks GENERAL: Obese female patient lying in bed in NAD, t-collar in place. SKIN: Warm and dry. HEENT: Normocephalic. No scleral icterus. No injection or drainage. No nasal bleeding or discharge. Mucous membranes pink and moist. NECK: Supple. Tracheostomy in place. CARDIOVASCULAR: Regular rate and rhythm. S1, S2 noted. No murmur appreciated. RESPIRATORY: No accessory muscle use. Coarse breath sounds noted. No wheezing. GASTROINTESTINAL: Abdomen soft, non-tender, nondistended. Normoactive bowel sounds x4. PEG in place. : Brown kevan yellow urine. MUSCULOSKELETAL: No obvious deformities. Extremities without clubbing, cyanosis. Edematous extremities trace bilaterally. Bilateral hallux, ingrown toenail, positive edema, draining serous drainage. NEUROLOGICAL: Awake and alert. Does not follow any commands. No spontaneous movement in upper or lower extremities. Procedures 11/24/2016 Percutaneous tracheostomy. 11/18/2016 Moderate encephalopathy with suggestion of left temporal region cortical irritability. No active seizures. Clinical correlation. Echocardiogram Severe dilated left ventricle. Wall thickness is normal. The left ventricular systolic function is moderately reduced with an estimated ejection fraction in the range of 35-40%. Doppler parameters are consistent with a restrictive left ventricular filling pattern indicative of decreased left ventricular diastolic compliance and increase left atrial pressure (grade 3 diastolic dysfunction). There is severe tricuspid regurgitation. There is severe pulmonary hypertension present ( > 70 mmHg). Severe mitral valve regurgitation. 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 Status: Acute (2) Seizure ICD Code: R56.9 - Unspecified convulsions Status: Acute (3) CVA (cerebral vascular accident) ICD Code: I63.9 - Cerebral infarction, unspecified Status: Acute (4) Respiratory failure, acute ICD Code: J96.00 - Acute respiratory failure, unspecified whether with hypoxia or hypercapnia Status: Acute (5) COPD (chronic obstructive pulmonary disease) ICD Code: J44.9 - Chronic obstructive pulmonary disease, unspecified Status: Chronic (6) Acute hypernatremia ICD Code: E87.0 - Hyperosmolality and hypernatremia Status: Resolved (7) Microcytic anemia ICD Code: D50.9 - Iron deficiency anemia, unspecified Assessment and Plan 65-year-old female with past medical history of CVA for which she at one point was on warfarin but had been discontinued. She was was admitted to [facility] emergency department 11/04/16 with difficulty getting her thoughts together. She was found to have multifocal ischemic infarcts in left frontal and parietal regions, right frontal lobe and history of moyamoya disease. She was initially awake and following commands with weakness of RLE and some aphasia. She was transferred to [facility] where he had an cerebral angiogram consistent with moyamoya. There were plans to perform extracranial/ intracranial bypass. However she had a seizure and ended up being intubated for status epilepticus 11/2016 She was found to have a new right frontal infarct area and she was started on Dilantin and Keppra and it was felt that she would not be a candidate for intervention. She has been intubated 9-10 days. Treating team was discussing with family trach/PEG. Family requested transfer back to [place] because they live locally here and wanted her closer to home. Patient remained under critical care medicine until 12/24/2016. Bilateral Hallux ingrown toenail - Podiatry consulted - Monitor for signs and symptoms of infection. Viridans strep bacteremia - resolved. Per ID, sputum cx with GNR and staph aureus ? colonization. Urine with Kleb pneumo and E Coli ? colonization - Repeat blood cx 03/23 shows no growth in 5 days. 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 - Continue aspirin - Continue Bromocriptine - Tegretol level WNL. Keppra level within normal. - Continue seizure precautions. Mixed Systolic and diastolic heart failure, acute - echocardiogram 02/02/17 shows EF 35-40%, grade 3 diastolic dysfunction, severe tricuspid regurgitation, severe pulmonary HTN and severe mitral valve regurgitation. - Continue Lasix 20mg daily - On Entresto - Monitor electrolytes and renal function. Monitor for signs and symptoms of overload. Atrial Fibrillation, acute: Controlled. - Follow daily INR. Pharmacy to manage. Watch closely. - Continue Coumadin. Hyponatremia: BMP reviewed. Na 136. - Continue to monitor intermittently Anasarca - Lasix 20 mg daily - Improving Chronic Respiratory Failure Chronic obstructive pulmonary disease Multilobar pneumonia - Pulmonology following, appreciate input. - Continue tracheostomy with supplemental oxygen. Maintain O2 sat greater than 92% - Tobramycin completed, course ended on 01/20/17. - Continue duo nebs when necessary Dysphagia Hypoalbuminemia - PEG placed. Continue TF. - Glucerna 1.5 at 60 ML's an hour - Continue Corby as ordered. Sacral/Coccyx wound - Continue specialty bed. - Wound care following - Apply nickel thick Santyl to necrotic tissue in wound bed prior to packing with Quarter strength Dakins moist to dry gauze dressing.This should be covered with ABD and secured with tape. - Log roll q2h GI Prophylaxis: Pepcid. DVT prophylaxis: SCDs. Coumadin. Discussed with nursing and Dr. Smith Discharge Planning Case management following. Possible placement rehabilitation in [place] or locally. Awaiting for placement. Octaviano Bennett May 05, 2017 11:08
[2017-05-05 12:36] LABS: INTERNATIONAL NORMALIZED RATIO 2.2 RATIO; PROTHROMBIN TIME - PATIENT 25.3 SEC (9.8-11.6)
[2017-05-05] MEDS: WARFARIN SOD 10 MG TAB PEG SCH (16:57)
--- NOTE | 2017-05-05 20:36 | HHI.PR ---
Subjective Remarks 66 YOWF with Rf, s/p trach H/O CVA,Arango Arango disease. On trach collar Mod amount of trach secretions. no fever. Objective Vital Signs Vital Signs Date Time Temp Pulse Resp B/P (MAP) Pulse Ox O2 Delivery O2 Flow Rate FiO2 05/05/17 16:00 98.5 93 16 131/63 (85) 100 05/05/17 13:39 89 20 137/63 (87) 05/05/17 12:00 98.5 85 16 107/56 (73) 100 05/05/17 08:30 99 T-piece 28 05/05/17 08:12 98 05/05/17 08:00 98.9 102 18 124/60 (81) 99 05/05/17 07:50 T-Piece 6.00 05/05/17 05:23 98.7 99 16 129/68 (88) 100 05/05/17 00:10 98.7 101 16 128/68 (88) 100 05/04/17 21:38 98.8 102 16 142/68 (92) 100 I/O 05/04/17 05/04/17 05/04/17 05/05/17 05/05/17 05/05/17 07:00 15:00 23:00 07:00 15:00 23:00 Intake Total 1200 ml 1135 ml 0 ml 0 ml Output Total 1200 ml 900 ml 850 ml 750 ml Balance 0 ml 235 ml -850 ml -750 ml Intake Oral 0 ml 0 ml 0 ml Tube Feeding 600 ml 1135 ml Tube Irrigant 600 ml Output Urine Total 1200 ml 900 ml 850 ml 750 ml # Bowel Movements 2 1 0 3 Result Diagram: 05/03/1754 05/03/17 0654 Objective Remarks GENERAL: MBMN WF, on Trach collar SKIN: Warm and dry. HEAD: Normocephalic. EYES: No scleral icterus. No injection or drainage. NECK: Supple, trachea midline. No JVD or lymphadenopathy. has trach CARDIOVASCULAR: Regular rate and rhythm without murmurs, gallops, or rubs. RESPIRATORY: Breath sounds equal bilaterally. No accessory muscle use. GASTROINTESTINAL: Abdomen soft, non-tender, nondistended. has PEG MUSCULOSKELETAL: No cyanosis, or edema. BACK: Nontender without obvious deformity. No CVA tenderness. A/P Assessment and Plan RF, S/P Trach CVA Arango arango disease CAD COPD SZ disorder PLAN: Aerosol nebs Cont trach collar supplement 02, keep sat >90%. SHAWN Mason.fernanda CHAVIS RN. Wean 02 Vernon Marx MD May 05, 2017 20:36
[2017-05-06] VITALS (8 sets, daily range): BP systolic 96–135; BP diastolic 46–63; PULSE 71–102; RESP 20–24; TEMP 97.7–98.7; O2SAT 97–100
[2017-05-06] MEDS: HYOSCYAMINE SOLN 0.125 MG/ML 15 ML BTL G-TUBE SCH ×4 (00:26→17:33)
[2017-05-06] MEDS: METOPROLOL TARTRATE 25 MG TAB G-TUBE SCH ×4 (00:26→17:33)
[2017-05-06] MEDS: CHLORHEXIDINE GLUCONATE 2 % 1 PACK (2 CLOTHS) TOP SCH (03:46)
[2017-05-06] MEDS: FREE WATER G-TUBE SCH ×3 (05:47→20:47)
--- NOTE | 2017-05-06 07:08 | MB ---
cc: ANILA HARRIS DPM DATE OF CONSULTATION 05/05/2017 DATE OF 1950 REASON FOR CONSULTATION Bilateral hallux ingrown. HISTORY OF PRESENT ILLNESS The patient is a 65-year-old female with a history of CVA brought to the hospital October. She had multiple complications thereafter. PAST MEDICAL HISTORY 1. Coronary disease 2. CVA 3. COPD 4. Hypertension MEDICATIONS Per HPI. ALLERGIES None SOCIAL HISTORY Unable to obtain. FAMILY HISTORY Noncontributory REVIEW OF SYSTEMS Unable to obtain. PHYSICAL EXAMINATION Lower extremity warm to warm. Muscle strength, unable to determine, protective sensation unable to determine. One through five bilaterally elongated, dystrophic. On the bilateral hallux and lateral borders distal there is some granulation tissue, some erythema, no active drainage. No purulence. The nails were manually debrided one through five and an aggressive bilateral was carried out on bilateral hallux in the lateral borders. There is no purulence. There is some bleeding for about 30 seconds. Then an order was placed to have nursing carry out coverlet with triple antibiotic daily for 7-10 days until resolution. If there is recurrence of ingrown, then we can plan for long border partial nail avulsion at bedside. Podiatry signing off. Please reconsult if there is any additional concern. Anila Harris DPM SR/LINDA /11:14 PM /6:53 AM
[2017-05-06] MEDS: CHLORHEXIDINE 0.12% (ORAL KIT) 15 ML CUP MT SCH ×2 (08:00→20:00)
[2017-05-06] MEDS: BROMOCRIPTINE MESYLATE 2.5 MG TAB PEG SCH ×2 (08:13→20:47)
[2017-05-06] MEDS: levETIRAcetam 500 MG/5 ML UDC PEG SCH ×2 (08:13→20:47)
[2017-05-06] MEDS: SODIUM CHLORIDE 0.9% FLUSH 10 ML FLUSH IV FLUSH SCH ×2 (08:13→20:48)
[2017-05-06] MEDS: NEOMYCIN/POLYMYXIN/BACITRACIN OINT 15 GM TUBE TOPICAL SCH (08:13)
[2017-05-06] MEDS: ATORVASTATIN 40 MG TAB G-TUBE SCH (08:13)
[2017-05-06] MEDS: FOLIC ACID 1 MG TAB PEG SCH (08:14)
[2017-05-06] MEDS: FUROSEMIDE 20 MG TAB PEG SCH (08:14)
[2017-05-06] MEDS: POTASSIUM CHLORIDE 20 MEQ PWD PACKET PEG SCH (08:14)
[2017-05-06] MEDS: ASCORBIC ACID 500 MG TAB PEG SCH ×2 (08:14→20:47)
[2017-05-06] MEDS: COLLAGENASE OINT 30 GM TUBE TOPICAL SCH (08:15)
[2017-05-06] MEDS: POVIDONE IODINE 10% OINT 30 GM TUBE TOPICAL SCH (08:15)
[2017-05-06] MEDS: carBAMazepine SUSP 200 MG/10 ML UDC PEG SCH ×2 (08:16→20:47)
[2017-05-06] MEDS: FAMOTIDINE 20 MG TAB PEG SCH ×2 (08:16→20:47)
[2017-05-06] MEDS: SODIUM HYPOCHLORITE 0.125% 500 ML BTL TOPICAL SCH (08:16)
[2017-05-06] MEDS: FERROUS SULFATE 300 MG /5ML UDC PEG SCH ×2 (08:16→20:47)
[2017-05-06] MEDS: SENNOSIDES SYRUP 8.8 MG/5 ML CUP G-TUBE SCH ×2 (08:23→20:48)
[2017-05-06] MEDS: JUVEN POWDER 1 PACK G-TUBE SCH ×2 (08:23→20:48)
[2017-05-06 08:45] LABS: INTERNATIONAL NORMALIZED RATIO 2.4 RATIO; PROTHROMBIN TIME - PATIENT 27.9 SEC (9.8-11.6)
[2017-05-06] MEDS: SACUBITRIL/VALSARTAN 24 MG-26 MG TAB PEG SCH ×2 (09:41→20:47)
--- NOTE | 2017-05-06 11:38 | HHI.PR ---
Subjective Remarks Follow-up visit moyamoya disease, bilateral frontal CVA. Patient seen and examined today. Laying in bed, eyes open. Occupational therapy at bedside doing AROM exercises for patient. Does not follow any commands or track. Retracting lower extremity to painful stimulation. Appears comfortable. As per nursing, no acute issues overnight. Objective Vitals Vital Signs Date Time Temp Pulse Resp B/P (MAP) Pulse Ox O2 Delivery O2 Flow Rate FiO2 05/06/17 09:00 98 T-piece 5.00 28 05/06/17 08:00 98.4 80 24 114/57 (76) 100 05/06/17 08:00 T-Piece 6.00 05/06/17 08:00 94 05/06/17 04:00 T-Piece 6.00 05/06/17 04:00 97.7 102 20 135/63 (87) 100 05/06/17 00:13 98.7 87 20 121/58 (79) 98 05/06/17 00:00 T-Piece 6.00 05/05/17 23:50 96 6.00 28 05/05/17 21:52 98 T-piece 28 05/05/17 20:00 92 05/05/17 20:00 T-Piece 6.00 28 05/05/17 20:00 97.5 95 20 140/62 (88) 100 05/05/17 16:00 98.5 93 16 131/63 (85) 100 05/05/17 13:39 89 20 137/63 (87) 05/05/17 12:00 98.5 85 16 107/56 (73) 100 I/O 05/05/17 05/05/17 05/05/17 05/06/17 05/06/17 05/06/17 07:00 15:00 23:00 07:00 15:00 23:00 Intake Total 0 ml 0 ml Output Total 850 ml 750 ml 850 ml Balance -850 ml -750 ml -850 ml Intake Oral 0 ml 0 ml Output Urine Total 850 ml 750 ml 850 ml # Bowel Movements 0 3 Result Diagram: 05/03/17 0654 05/03/17 0654 Imaging Last Impressions Chest X-Ray 05/03/17 0000 Signed Impressions: Service Date/Time: Wednesday, May 03, 2017 18:00 - CONCLUSION: Similar findings to the March comparison with interstitial opacities and borderline cardiomegaly with a tracheostomy tube. No acute lobar consolidation demonstrated. Nghia Nuno MD Abdomen X-Ray 02/11/17 0000 Signed Impressions: Service Date/Time: Saturday, February 11, 2017 17:52 - CONCLUSION: Minimal colonic distention. Kenneth Frost MD FACR Catheter Change 02/10/17 0000 Signed Impressions: Service Date/Time: February 13:47 - CONCLUSION: Uncomplicated fluoroscopic guided gastrostomy tube replacement. Positioning confirmed. The tube can be used immediately. Nghia Pacheco MD Lower Extremity Ultrasound 02/01/17 0000 Signed Impressions: Service Date/Time: Wednesday, February 01, 2017 13:23 - CONCLUSION: Normal examination. 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 Sami Mccarthy MD Objective Remarks GENERAL: Obese female patient lying in bed in NAD, t-collar in place. SKIN: Warm and dry. HEENT: Normocephalic. No scleral icterus. No injection or drainage. No nasal bleeding or discharge. Mucous membranes pink and moist. NECK: Supple. Tracheostomy in place. CARDIOVASCULAR: Regular rate and rhythm. S1, S2 noted. No murmur appreciated. RESPIRATORY: No accessory muscle use. Coarse breath sounds noted. No wheezing. GASTROINTESTINAL: Abdomen soft, non-tender, nondistended. Normoactive bowel sounds x4. PEG in place. : Brown kevan yellow urine. MUSCULOSKELETAL: No obvious deformities. Extremities without clubbing, cyanosis. Edematous extremities trace bilaterally. Bilateral hallux, ingrown toenail, positive edema, draining serous drainage. NEUROLOGICAL: Awake and alert. Does not follow any commands. No spontaneous movement in upper or lower extremities. Procedures 11/24/2016 Percutaneous tracheostomy. 11/18/2016 Moderate encephalopathy with suggestion of left temporal region cortical irritability. No active seizures. Clinical correlation. Echocardiogram Severe dilated left ventricle. Wall thickness is normal. The left ventricular systolic function is moderately reduced with an estimated ejection fraction in the range of 35-40%. Doppler parameters are consistent with a restrictive left ventricular filling pattern indicative of decreased left ventricular diastolic compliance and increase left atrial pressure (grade 3 diastolic dysfunction). There is severe tricuspid regurgitation. There is severe pulmonary hypertension present ( > 70 mmHg). Severe mitral valve regurgitation. 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 Status: Acute (2) Seizure ICD Code: R56.9 - Unspecified convulsions Status: Acute (3) CVA (cerebral vascular accident) ICD Code: I63.9 - Cerebral infarction, unspecified Status: Acute (4) Respiratory failure, acute ICD Code: J96.00 - Acute respiratory failure, unspecified whether with hypoxia or hypercapnia Status: Acute (5) COPD (chronic obstructive pulmonary disease) ICD Code: J44.9 - Chronic obstructive pulmonary disease, unspecified Status: Chronic (6) Acute hypernatremia ICD Code: E87.0 - Hyperosmolality and hypernatremia Status: Resolved (7) Microcytic anemia ICD Code: D50.9 - Iron deficiency anemia, unspecified Assessment and Plan 65-year-old female with past medical history of CVA for which she at one point was on warfarin but had been discontinued. She was was admitted to [facility] emergency department 11/04/16 with difficulty getting her thoughts together. She was found to have multifocal ischemic infarcts in left frontal and parietal regions, right frontal lobe and history of moyamoya disease. She was initially awake and following commands with weakness of RLE and some aphasia. She was transferred to [facility] where he had an cerebral angiogram consistent with moyamoya. There were plans to perform extracranial/ intracranial bypass. However she had a seizure and ended up being intubated for status epilepticus 11/2016 She was found to have a new right frontal infarct area and she was started on Dilantin and Keppra and it was felt that she would not be a candidate for intervention. She has been intubated 9-10 days. Treating team was discussing with family trach/PEG. Family requested transfer back to [place] because they live locally here and wanted her closer to home. Patient remained under critical care medicine until 12/24/2016. Bilateral Hallux ingrown toenail - Podiatry consulted. Nails were manually debrided. Triple antibiotic 7-10 days. - Monitor for signs and symptoms of infection. - No purulent drainage noted. Continues to have some edema on the lateral side of bilateral hallux Viridans strep bacteremia - resolved. Per ID, sputum cx with GNR and staph aureus ? colonization. Urine with Kleb pneumo and E Coli ? colonization - Repeat blood cx 03/23 shows no growth in 5 days. 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 - Continue aspirin - Continue Bromocriptine - Tegretol level WNL. Keppra level within normal. - Continue seizure precautions. Mixed Systolic and diastolic heart failure, acute - echocardiogram 02/02/17 shows EF 35-40%, grade 3 diastolic dysfunction, severe tricuspid regurgitation, severe pulmonary HTN and severe mitral valve regurgitation. - Continue Lasix 20mg daily - On Entresto - Monitor electrolytes and renal function. Monitor for signs and symptoms of overload. Atrial Fibrillation, acute: Controlled. - Follow daily INR. - Continue Coumadin. - Therapeutic Range Hyponatremia: BMP reviewed. Na 136. - Continue to monitor intermittently Anasarca - Lasix 20 mg daily - Improving Chronic Respiratory Failure Chronic obstructive pulmonary disease Multilobar pneumonia - Pulmonology following, appreciate input. - Continue tracheostomy with supplemental oxygen. Maintain O2 sat greater than 92% - Tobramycin completed, course ended on 01/20/17. - Continue duo nebs when necessary Dysphagia Hypoalbuminemia - PEG placed. Continue TF. - Glucerna 1.5 at 60 ML's an hour - Continue Corby as ordered. Sacral/Coccyx wound - Continue specialty bed. - Wound care following - Apply nickel thick Santyl to necrotic tissue in wound bed prior to packing with Quarter strength Dakins moist to dry gauze dressing.This should be covered with ABD and secured with tape. - Log roll q2h GI Prophylaxis: Pepcid. DVT prophylaxis: SCDs. Coumadin. Discussed with nursing and Dr. Smith Discharge Planning Case management following. Possible placement rehabilitation in [place] or locally. Awaiting for placement. Octaviano Bennett May 06, 2017 11:38
[2017-05-06] MEDS: WARFARIN SOD 10 MG TAB PEG SCH (16:16)
--- NOTE | 2017-05-06 16:37 | HHI.PR ---
Subjective Remarks 66 YOWF with Rf, s/p trach H/O CVA,Arango Arango disease. On trach collar Mod amount of trach secretions. no fever. Objective Vital Signs Vital Signs Date Time Temp Pulse Resp B/P (MAP) Pulse Ox O2 Delivery O2 Flow Rate FiO2 05/06/17 12:00 98.2 89 22 100/49 (66) 99 05/06/17 12:00 96/46 (63) 05/06/17 09:00 98 T-piece 5.00 28 05/06/17 08:00 98.4 80 24 114/57 (76) 100 05/06/17 08:00 T-Piece 6.00 28 05/06/17 08:00 94 05/06/17 04:00 T-Piece 6.00 28 05/06/17 04:00 97.7 102 20 135/63 (87) 100 05/06/17 00:13 98.7 87 20 121/58 (79) 98 05/06/17 00:00 T-Piece 6.00 28 05/05/17 23:50 96 6.00 28 05/05/17 21:52 98 T-piece 28 05/05/17 20:00 92 05/05/17 20:00 T-Piece 6.00 28 05/05/17 20:00 97.5 95 20 140/62 (88) 100 I/O 05/05/17 05/05/17 05/05/17 05/06/17 05/06/17 05/06/17 07:00 15:00 23:00 07:00 15:00 23:00 Intake Total 0 ml 0 ml Output Total 850 ml 750 ml 850 ml Balance -850 ml -750 ml -850 ml Intake Oral 0 ml 0 ml Output Urine Total 850 ml 750 ml 850 ml # Bowel Movements 0 3 Result Diagram: 05/03/1754 05/03/17 06 Objective Remarks GENERAL: MBMN WF, on Trach collar SKIN: Warm and dry. HEAD: Normocephalic. EYES: No scleral icterus. No injection or drainage. NECK: Supple, trachea midline. No JVD or lymphadenopathy. has trach CARDIOVASCULAR: Regular rate and rhythm without murmurs, gallops, or rubs. RESPIRATORY: Breath sounds equal bilaterally. No accessory muscle use. GASTROINTESTINAL: Abdomen soft, non-tender, nondistended. has PEG MUSCULOSKELETAL: No cyanosis, or edema. BACK: Nontender without obvious deformity. No CVA tenderness. A/P Assessment and Plan RF, S/P Trach CVA Arango arango disease CAD COPD SZ disorder PLAN: Aerosol nebs Cont trach collar supplement 02, keep sat >90%. TF Levsin.prn PARTHA RN. Wean 02 Available prn over weekend. Vernon Marx MD May 06, 2017 16:37
[2017-05-07] VITALS (7 sets, daily range): BP systolic 108–127; BP diastolic 57–63; PULSE 75–102; RESP 18–24; TEMP 98.2–99.1; O2SAT 98–100
[2017-05-07] MEDS: METOPROLOL TARTRATE 25 MG TAB G-TUBE SCH ×4 (00:08→17:22)
[2017-05-07] MEDS: CHLORHEXIDINE GLUCONATE 2 % 1 PACK (2 CLOTHS) TOP SCH (03:44)
[2017-05-07] MEDS: HYOSCYAMINE SOLN 0.125 MG/ML 15 ML BTL G-TUBE SCH ×4 (05:30→17:23)
[2017-05-07] MEDS: FREE WATER G-TUBE SCH ×3 (05:30→21:49)
[2017-05-07 07:29] LABS: INTERNATIONAL NORMALIZED RATIO 2.8 RATIO; PROTHROMBIN TIME - PATIENT 32.3 SEC (9.8-11.6)
[2017-05-07] MEDS: SENNOSIDES SYRUP 8.8 MG/5 ML CUP G-TUBE SCH ×2 (09:00→21:00)
[2017-05-07] MEDS: levETIRAcetam 500 MG/5 ML UDC PEG SCH ×2 (10:32→21:47)
[2017-05-07] MEDS: FERROUS SULFATE 300 MG /5ML UDC PEG SCH ×2 (10:32→21:48)
[2017-05-07] MEDS: carBAMazepine SUSP 200 MG/10 ML UDC PEG SCH ×2 (10:32→21:48)
[2017-05-07] MEDS: ASCORBIC ACID 500 MG TAB PEG SCH ×2 (10:33→21:47)
[2017-05-07] MEDS: POTASSIUM CHLORIDE 20 MEQ PWD PACKET PEG SCH (10:33)
[2017-05-07] MEDS: FAMOTIDINE 20 MG TAB PEG SCH ×2 (10:33→21:47)
[2017-05-07] MEDS: SACUBITRIL/VALSARTAN 24 MG-26 MG TAB PEG SCH ×2 (10:33→21:47)
[2017-05-07] MEDS: FOLIC ACID 1 MG TAB PEG SCH (10:33)
[2017-05-07] MEDS: FUROSEMIDE 20 MG TAB PEG SCH (10:33)
[2017-05-07] MEDS: ATORVASTATIN 40 MG TAB G-TUBE SCH (10:33)
[2017-05-07] MEDS: CHLORHEXIDINE 0.12% (ORAL KIT) 15 ML CUP MT SCH ×2 (10:34→20:24)
[2017-05-07] MEDS: JUVEN POWDER 1 PACK G-TUBE SCH ×2 (10:34→21:48)
[2017-05-07] MEDS: SODIUM CHLORIDE 0.9% FLUSH 10 ML FLUSH IV FLUSH SCH ×2 (10:34→21:48)
[2017-05-07] MEDS: COLLAGENASE OINT 30 GM TUBE TOPICAL SCH (10:35)
[2017-05-07] MEDS: SODIUM HYPOCHLORITE 0.125% 500 ML BTL TOPICAL SCH (10:35)
[2017-05-07] MEDS: POVIDONE IODINE 10% OINT 30 GM TUBE TOPICAL SCH (10:35)
[2017-05-07] MEDS: NEOMYCIN/POLYMYXIN/BACITRACIN OINT 15 GM TUBE TOPICAL SCH (10:35)
[2017-05-07] MEDS: BROMOCRIPTINE MESYLATE 2.5 MG TAB PEG SCH ×2 (10:35→21:47)
--- NOTE | 2017-05-07 10:49 | HHI.PR ---
Subjective Remarks Follow-up visit moyamoya disease, bilateral frontal CVA. Patient seen and examined today. Laying in bed, eyes open. Does not follow commands and does not track. As per nursing no acute issues overnight. Objective Vitals Vital Signs Date Time Temp Pulse Resp B/P (MAP) Pulse Ox O2 Delivery O2 Flow Rate FiO2 05/07/17 08:05 98 T-piece 28 05/07/17 08:00 99.0 95 24 116/63 (80) 98 05/07/17 04:00 98.6 98 20 115/57 (76) 98 05/07/17 04:00 T-Piece 6.00 28 05/07/17 00:00 T-Piece 6.00 28 05/07/17 00:00 98.2 102 24 127/63 (84) 100 05/06/17 20:00 71 05/06/17 20:00 T-Piece 6.00 28 05/06/17 20:00 98.4 92 24 131/61 (84) 100 05/06/17 17:30 88 20 119/54 (75) 05/06/17 16:00 98.4 85 22 97/62 (74) 97 05/06/17 12:00 98.2 89 22 100/49 (66) 99 05/06/17 12:00 96/46 (63) I/O 05/06/17 05/06/17 05/06/17 05/07/17 05/07/17 05/07/17 07:00 15:00 23:00 07:00 15:00 23:00 Intake Total 860 ml 1249 ml Output Total 850 ml 650 ml 600 ml Balance -850 ml -650 ml 860 ml 649 ml Intake Oral 0 ml Tube Feeding 460 ml 649 ml Tube Irrigant 100 ml Other 300 ml 600 ml Output Urine Total 850 ml 650 ml 600 ml # Voids 0 # Bowel Movements 1 Result Diagram: 05/03/17 0654 05/03/17 0654 Imaging Last Impressions Chest X-Ray 05/03/17 0000 Signed Impressions: Service Date/Time: Wednesday, May 03, 2017 18:00 - CONCLUSION: Similar findings to the March comparison with interstitial opacities and borderline cardiomegaly with a tracheostomy tube. No acute lobar consolidation demonstrated. Nghia Nuno MD Abdomen X-Ray 02/11/17 0000 Signed Impressions: Service Date/Time: Saturday, February 11, 2017 17:52 - CONCLUSION: Minimal colonic distention. Kenneth Frost MD FACR Catheter Change 02/10/17 0000 Signed Impressions: Service Date/Time: February 13:47 - CONCLUSION: Uncomplicated fluoroscopic guided gastrostomy tube replacement. Positioning confirmed. The tube can be used immediately. Nghia Pacheco MD Lower Extremity Ultrasound 02/01/17 0000 Signed Impressions: Service Date/Time: Wednesday, February 01, 2017 13:23 - CONCLUSION: Normal examination. 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 Sami Mccarthy MD Objective Remarks GENERAL: Obese female patient lying in bed in NAD, t-collar in place. SKIN: Warm and dry. HEENT: Normocephalic. No scleral icterus. No injection or drainage. No nasal bleeding or discharge. Mucous membranes pink and moist. NECK: Supple. Tracheostomy in place. CARDIOVASCULAR: Regular rate and rhythm. S1, S2 noted. No murmur appreciated. RESPIRATORY: No accessory muscle use. Coarse breath sounds noted. No wheezing. GASTROINTESTINAL: Abdomen soft, non-tender, nondistended. Normoactive bowel sounds x4. PEG in place. : Brown kevan yellow urine. MUSCULOSKELETAL: No obvious deformities. Extremities without clubbing, cyanosis. Edematous extremities trace bilaterally. Bilateral hallux, positive edema. NEUROLOGICAL: Awake and alert. Does not follow any commands. No spontaneous movement in upper or lower extremities. Procedures 11/24/2016 Percutaneous tracheostomy. 11/18/2016 Moderate encephalopathy with suggestion of left temporal region cortical irritability. No active seizures. Clinical correlation. Echocardiogram Severe dilated left ventricle. Wall thickness is normal. The left ventricular systolic function is moderately reduced with an estimated ejection fraction in the range of 35-40%. Doppler parameters are consistent with a restrictive left ventricular filling pattern indicative of decreased left ventricular diastolic compliance and increase left atrial pressure (grade 3 diastolic dysfunction). There is severe tricuspid regurgitation. There is severe pulmonary hypertension present ( > 70 mmHg). Severe mitral valve regurgitation. 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 Status: Acute (2) Seizure ICD Code: R56.9 - Unspecified convulsions Status: Acute (3) CVA (cerebral vascular accident) ICD Code: I63.9 - Cerebral infarction, unspecified Status: Acute (4) Respiratory failure, acute ICD Code: J96.00 - Acute respiratory failure, unspecified whether with hypoxia or hypercapnia Status: Acute (5) COPD (chronic obstructive pulmonary disease) ICD Code: J44.9 - Chronic obstructive pulmonary disease, unspecified Status: Chronic (6) Acute hypernatremia ICD Code: E87.0 - Hyperosmolality and hypernatremia Status: Resolved (7) Microcytic anemia ICD Code: D50.9 - Iron deficiency anemia, unspecified Assessment and Plan 65-year-old female with past medical history of CVA for which she at one point was on warfarin but had been discontinued. She was was admitted to [facility] emergency department 11/04/16 with difficulty getting her thoughts together. She was found to have multifocal ischemic infarcts in left frontal and parietal regions, right frontal lobe and history of moyamoya disease. She was initially awake and following commands with weakness of RLE and some aphasia. She was transferred to [facility] where he had an cerebral angiogram consistent with moyamoya. There were plans to perform extracranial/ intracranial bypass. However she had a seizure and ended up being intubated for status epilepticus 11/2016 She was found to have a new right frontal infarct area and she was started on Dilantin and Keppra and it was felt that she would not be a candidate for intervention. She has been intubated 9-10 days. Treating team was discussing with family trach/PEG. Family requested transfer back to [place] because they live locally here and wanted her closer to home. Patient remained under critical care medicine until 12/24/2016. Bilateral Hallux ingrown toenail - Podiatry consulted. Nails were manually debrided. Triple antibiotic 7-10 days. - Monitor for signs and symptoms of infection. - No purulent drainage noted. Continues to have some edema on the lateral side of bilateral hallux Viridans strep bacteremia - resolved. Per ID, sputum cx with GNR and staph aureus ? colonization. Urine with Kleb pneumo and E Coli ? colonization - Repeat blood cx 03/23 shows no growth in 5 days. 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 - Continue aspirin - Continue Bromocriptine - Tegretol level WNL. Keppra level within normal. - Continue seizure precautions. Mixed Systolic and diastolic heart failure, acute - echocardiogram 02/02/17 shows EF 35-40%, grade 3 diastolic dysfunction, severe tricuspid regurgitation, severe pulmonary HTN and severe mitral valve regurgitation. - Continue Lasix 20mg daily - On Entresto - Monitor electrolytes and renal function. Monitor for signs and symptoms of overload. Atrial Fibrillation, acute: Controlled. - Follow daily INR. - Continue Coumadin. - Therapeutic Range Hyponatremia: BMP reviewed. Na 136. - Continue to monitor intermittently Anasarca - Lasix 20 mg daily - Improving Chronic Respiratory Failure Chronic obstructive pulmonary disease Multilobar pneumonia - Pulmonology following, appreciate input. - Continue tracheostomy with supplemental oxygen. Maintain O2 sat greater than 92% - Tobramycin completed, course ended on 01/20/17. - Continue duo nebs when necessary - Wean off tracheostomy. Levsin PRN for secretions. - Monitor Respiratory status Dysphagia Hypoalbuminemia - PEG placed. Continue TF. - Glucerna 1.5 at 60 ML's an hour - Continue Corby as ordered. Sacral/Coccyx wound - Continue specialty bed. - Wound care following - Apply nickel thick Santyl to necrotic tissue in wound bed prior to packing with Quarter strength Dakins moist to dry gauze dressing.This should be covered with ABD and secured with tape. - Log roll q2h GI Prophylaxis: Pepcid. DVT prophylaxis: SCDs. Coumadin. Discussed with nursing and Dr. Smith Discharge Planning Case management following. Possible placement rehabilitation in [place] or locally. Awaiting for placement. Octaviano Bennett May 07, 2017 10:49
[2017-05-07] MEDS: WARFARIN SOD 10 MG TAB PEG SCH (15:39)
[2017-05-07] MEDS ORDERED: WARFARIN SOD 3 MG TAB PEG SCH (16:00)
[2017-05-08] VITALS (9 sets, daily range): BP systolic 94–133; BP diastolic 56–76; PULSE 76–101; RESP 18–20; TEMP 98.2–98.9; O2SAT 97–100
[2017-05-08] MEDS: METOPROLOL TARTRATE 25 MG TAB G-TUBE SCH ×4 (01:46→16:09)
[2017-05-08] MEDS: HYOSCYAMINE SOLN 0.125 MG/ML 15 ML BTL G-TUBE SCH ×4 (01:47→16:09)
[2017-05-08] MEDS: CHLORHEXIDINE GLUCONATE 2 % 1 PACK (2 CLOTHS) TOP SCH (04:00)
[2017-05-08] MEDS: FREE WATER G-TUBE SCH ×3 (06:04→21:48)
[2017-05-08 08:01] LABS: INTERNATIONAL NORMALIZED RATIO 2.5 RATIO; PROTHROMBIN TIME - PATIENT 28.8 SEC (9.8-11.6)
[2017-05-08] MEDS: SENNOSIDES SYRUP 8.8 MG/5 ML CUP G-TUBE SCH ×2 (09:00→21:00)
[2017-05-08] MEDS: JUVEN POWDER 1 PACK G-TUBE SCH ×2 (09:10→21:48)
[2017-05-08] MEDS: CHLORHEXIDINE 0.12% (ORAL KIT) 15 ML CUP MT SCH ×2 (09:10→20:10)
[2017-05-08] MEDS: FERROUS SULFATE 300 MG /5ML UDC PEG SCH ×2 (09:16→21:47)
[2017-05-08] MEDS: carBAMazepine SUSP 200 MG/10 ML UDC PEG SCH ×2 (09:16→21:47)
[2017-05-08] MEDS: FOLIC ACID 1 MG TAB PEG SCH (09:16)
[2017-05-08] MEDS: POTASSIUM CHLORIDE 20 MEQ PWD PACKET PEG SCH (09:17)
[2017-05-08] MEDS: FUROSEMIDE 20 MG TAB PEG SCH (09:17)
[2017-05-08] MEDS: SODIUM CHLORIDE 0.9% FLUSH 10 ML FLUSH IV FLUSH SCH ×2 (09:17→21:49)
[2017-05-08] MEDS: SACUBITRIL/VALSARTAN 24 MG-26 MG TAB PEG SCH ×2 (09:17→21:47)
[2017-05-08] MEDS: FAMOTIDINE 20 MG TAB PEG SCH ×2 (09:17→21:47)
[2017-05-08] MEDS: BROMOCRIPTINE MESYLATE 2.5 MG TAB PEG SCH ×2 (09:17→21:48)
[2017-05-08] MEDS: ATORVASTATIN 40 MG TAB G-TUBE SCH (09:17)
[2017-05-08] MEDS: ASCORBIC ACID 500 MG TAB PEG SCH ×2 (09:17→21:47)
[2017-05-08] MEDS: levETIRAcetam 500 MG/5 ML UDC PEG SCH ×2 (09:17→21:47)
[2017-05-08] MEDS: SODIUM HYPOCHLORITE 0.125% 500 ML BTL TOPICAL SCH (09:18)
[2017-05-08] MEDS: NEOMYCIN/POLYMYXIN/BACITRACIN OINT 15 GM TUBE TOPICAL SCH (09:18)
[2017-05-08] MEDS: COLLAGENASE OINT 30 GM TUBE TOPICAL SCH (09:18)
[2017-05-08] MEDS: POVIDONE IODINE 10% OINT 30 GM TUBE TOPICAL SCH (09:18)
--- NOTE | 2017-05-08 11:16 | HHI.PR ---
Subjective Remarks Follow-up visit moyamoya disease, bilateral frontal CVA. Patient seen and examined today. Laying in bed, eyes closed. Does not follow commands. Grimaces to painful stimulus As per nursing no acute issues overnight. Objective Vitals Vital Signs Date Time Temp Pulse Resp B/P (MAP) Pulse Ox O2 Delivery O2 Flow Rate FiO2 05/08/17 08:40 98.9 90 18 130/63 (85) 100 05/08/17 08:09 97 T-piece 5.00 28 05/08/17 04:00 98.2 94 18 133/68 (89) 98 05/08/17 00:00 98.6 95 20 122/56 (78) 100 05/07/17 20:00 Trach Collar 5.00 T-Piece 05/07/17 20:00 98.9 92 18 05/07/17 20:00 75 05/07/17 16:00 99.1 87 24 108/57 (74) 100 05/07/17 12:00 98.4 96 24 115/59 (77) 100 I/O 05/07/17 05/07/17 05/07/17 05/08/17 05/08/17 05/08/17 07:00 15:00 23:00 07:00 15:00 23:00 Intake Total 1249 ml Output Total 600 ml 725 ml 750 ml Balance 649 ml -725 ml -750 ml Intake Oral 0 ml Tube Feeding 649 ml Other 600 ml Output Urine Total 600 ml 725 ml 750 ml # Bowel Movements 1 Imaging Last Impressions Chest X-Ray 05/03/17 0000 Signed Impressions: Service Date/Time: Wednesday, May 03, 2017 18:00 - CONCLUSION: Similar findings to the March comparison with interstitial opacities and borderline cardiomegaly with a tracheostomy tube. No acute lobar consolidation demonstrated. Nghia Nuno MD Abdomen X-Ray 02/11/17 0000 Signed Impressions: Service Date/Time: Saturday, February 11, 2017 17:52 - CONCLUSION: Minimal colonic distention. Kenneth Frost MD FACR Catheter Change 02/10/17 0000 Signed Impressions: Service Date/Time: February 13:47 - CONCLUSION: Uncomplicated fluoroscopic guided gastrostomy tube replacement. Positioning confirmed. The tube can be used immediately. Nghia Pacheco MD Lower Extremity Ultrasound 02/01/17 0000 Signed Impressions: Service Date/Time: Wednesday, February 01, 2017 13:23 - CONCLUSION: Normal examination. 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 Sami Mccarthy MD Objective Remarks GENERAL: Obese female patient lying in bed in NAD, t-collar in place. SKIN: Warm and dry. HEENT: Normocephalic. No scleral icterus. No injection or drainage. No nasal bleeding or discharge. Mucous membranes pink and moist. NECK: Supple. Tracheostomy in place. CARDIOVASCULAR: Regular rate and rhythm. S1, S2 noted. No murmur appreciated. RESPIRATORY: No accessory muscle use. Coarse breath sounds noted. No wheezing. GASTROINTESTINAL: Abdomen soft, non-tender, nondistended. Normoactive bowel sounds x4. PEG in place. : Brown kevan yellow urine. MUSCULOSKELETAL: No obvious deformities. Extremities without clubbing, cyanosis. Edematous extremities trace bilaterally. Anasarca. Bilateral hallux, trace edema - improving NEUROLOGICAL: Does not follow any commands. No spontaneous movement in upper or lower extremities. Procedures 11/24/2016 Percutaneous tracheostomy. 11/18/2016 Moderate encephalopathy with suggestion of left temporal region cortical irritability. No active seizures. Clinical correlation. Echocardiogram Severe dilated left ventricle. Wall thickness is normal. The left ventricular systolic function is moderately reduced with an estimated ejection fraction in the range of 35-40%. Doppler parameters are consistent with a restrictive left ventricular filling pattern indicative of decreased left ventricular diastolic compliance and increase left atrial pressure (grade 3 diastolic dysfunction). There is severe tricuspid regurgitation. There is severe pulmonary hypertension present ( > 70 mmHg). Severe mitral valve regurgitation. 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 Status: Acute (2) Seizure ICD Code: R56.9 - Unspecified convulsions Status: Acute (3) CVA (cerebral vascular accident) ICD Code: I63.9 - Cerebral infarction, unspecified Status: Acute (4) Respiratory failure, acute ICD Code: J96.00 - Acute respiratory failure, unspecified whether with hypoxia or hypercapnia Status: Acute (5) COPD (chronic obstructive pulmonary disease) ICD Code: J44.9 - Chronic obstructive pulmonary disease, unspecified Status: Chronic (6) Acute hypernatremia ICD Code: E87.0 - Hyperosmolality and hypernatremia Status: Resolved (7) Microcytic anemia ICD Code: D50.9 - Iron deficiency anemia, unspecified Assessment and Plan 65-year-old female with past medical history of CVA for which she at one point was on warfarin but had been discontinued. She was was admitted to [facility] emergency department 11/04/16 with difficulty getting her thoughts together. She was found to have multifocal ischemic infarcts in left frontal and parietal regions, right frontal lobe and history of moyamoya disease. She was initially awake and following commands with weakness of RLE and some aphasia. She was transferred to [facility] where he had an cerebral angiogram consistent with moyamoya. There were plans to perform extracranial/ intracranial bypass. However she had a seizure and ended up being intubated for status epilepticus 11/2016 She was found to have a new right frontal infarct area and she was started on Dilantin and Keppra and it was felt that she would not be a candidate for intervention. She has been intubated 9-10 days. Treating team was discussing with family trach/PEG. Family requested transfer back to [place] because they live locally here and wanted her closer to home. Patient remained under critical care medicine until 12/24/2016. Bilateral Hallux ingrown toenail - Podiatry consulted. Nails were manually debrided. Triple antibiotic 7-10 days. - Monitor for signs and symptoms of infection. - No purulent drainage noted. Edema on the lateral side of bilateral hallux resolving. Viridans strep bacteremia - resolved. Per ID, sputum cx with GNR and staph aureus ? colonization. Urine with Kleb pneumo and E Coli ? colonization - Repeat blood cx 03/23 shows no growth in 5 days. 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 - Continue aspirin - Continue Bromocriptine - Tegretol level WNL. Keppra level within normal. - Continue seizure precautions. Mixed Systolic and diastolic heart failure, acute - echocardiogram 02/02/17 shows EF 35-40%, grade 3 diastolic dysfunction, severe tricuspid regurgitation, severe pulmonary HTN and severe mitral valve regurgitation. - Continue Lasix 20mg daily - On Entresto - Monitor electrolytes and renal function. Monitor for signs and symptoms of overload. Atrial Fibrillation, acute: Controlled. - Follow daily INR. - Continue Coumadin. - Therapeutic Range Hyponatremia: BMP reviewed. Na 136. - Continue to monitor intermittently Anasarca - Lasix 20 mg daily - Improving Chronic Respiratory Failure Chronic obstructive pulmonary disease Multilobar pneumonia - Pulmonology following, appreciate input. - Continue tracheostomy with supplemental oxygen. Maintain O2 sat greater than 92% - Tobramycin completed, course ended on 01/20/17. - Continue duo nebs when necessary - Wean off tracheostomy. Levsin PRN for secretions. - Monitor Respiratory status Dysphagia Hypoalbuminemia - PEG placed. Continue TF. - Glucerna 1.5 at 60 ML's an hour - Continue Corby as ordered. Sacral/Coccyx wound - Continue specialty bed. - Wound care following - Apply nickel thick Santyl to necrotic tissue in wound bed prior to packing with Quarter strength Dakins moist to dry gauze dressing.This should be covered with ABD and secured with tape. - Log roll q2h GI Prophylaxis: Pepcid. DVT prophylaxis: SCDs. Coumadin. Discussed with nursing and Dr. Smith Discharge Planning Case management following. Possible placement rehabilitation in [place] or locally. Awaiting for placement. Octaviano Bennett May 08, 2017 11:16
[2017-05-08] MEDS ORDERED: WARFARIN SOD 3 MG TAB PEG SCH (16:00)
[2017-05-08] MEDS: WARFARIN SOD 10 MG TAB PO SCH (16:07)
[2017-05-09] VITALS (9 sets, daily range): BP systolic 106–127; BP diastolic 57–61; PULSE 67–100; RESP 16–20; TEMP 97.3–98.8; O2SAT 99–100
[2017-05-09] MEDS: HYOSCYAMINE SOLN 0.125 MG/ML 15 ML BTL G-TUBE SCH ×4 (01:29→19:11)
[2017-05-09] MEDS: METOPROLOL TARTRATE 25 MG TAB G-TUBE SCH ×4 (01:29→19:34)
[2017-05-09] MEDS: CHLORHEXIDINE GLUCONATE 2 % 1 PACK (2 CLOTHS) TOP SCH (04:00)
[2017-05-09] MEDS: FREE WATER G-TUBE SCH ×3 (05:38→22:22)
--- NOTE | 2017-05-09 11:31 | HHI.PR ---
Subjective Remarks Ms. Rivas is a 66-year-old female with a history of stroke who was admitted to the [facility] on 11/04/2016 due to difficulty getting her thoughts together. She was found to have multifocal nonhemorrhagic infarctions in the frontal and parietal regions. She was initially awake and following commands with weakness of RLE and some aphasia. She was transferred to [facility] where he had an cerebral angiogram consistent with moyamoya. There were plans to perform extracranial/intracranial bypass. However she had a seizure and ended up being intubated for status either 4/4 or 4/5.. She was found to have a new right frontal infarct area and she was started on Dilantin and Keppra and it was felt that she would not be a candidate for intervention. She has been intubated 9-10 days and apparently she has been tolerating C Pap trials to some extent but mental status prevents extubation. Treating team was discussing with family trach/PEG. Apparently family requested transfer back to [place] because they live locally here and wanted her closer to home. Patient remained under critical care medicine until 12/24/2016. Follow-up visit moyamoya disease, bilateral frontal CVA. Patient seen and examined today. Laying in bed, eyes closed. Does not follow commands. Grimaces to painful stimulus As per nursing no acute issues overnight. Objective Vital Signs Date Time Temp Pulse Resp B/P (MAP) Pulse Ox O2 Delivery O2 Flow Rate FiO2 05/09/17 10:26 97.9 83 16 113/61 (78) 100 05/09/17 08:41 99 Trach Collar 5.00 05/09/17 04:00 98.8 89 20 121/57 (78) 100 05/09/17 04:00 Trach Collar 5.00 28 T-Piece 05/09/17 00:00 98.4 100 20 127/59 (81) 100 05/09/17 00:00 Trach Collar 5.00 28 T-Piece 05/08/17 20:00 98.9 76 18 109/56 (73) 100 05/08/17 20:00 77 05/08/17 20:00 Trach Collar 5.00 28 T-Piece 05/08/17 17:06 98.6 89 18 112/76 (88) 100 05/08/17 16:18 99 T-piece 5.00 28 05/08/17 11:30 98.6 92 18 103/57 (72) 99 I/O 05/08/17 05/08/17 05/08/17 05/09/17 05/09/17 05/09/17 07:00 15:00 23:00 07:00 15:00 23:00 Output Total 750 ml 751 ml 1000 ml Balance -750 ml -751 ml -1000 ml Output Urine Total 750 ml 750 ml 1000 ml Stool Total 1 ml # Bowel Movements 2 Imaging Last Impressions Chest X-Ray 05/03/17 0000 Signed Impressions: Service Date/Time: Wednesday, May 03, 2017 18:00 - CONCLUSION: Similar findings to the March comparison with interstitial opacities and borderline cardiomegaly with a tracheostomy tube. No acute lobar consolidation demonstrated. Nghia Nuno MD Abdomen X-Ray 02/11/17 0000 Signed Impressions: Service Date/Time: Saturday, February 11, 2017 17:52 - CONCLUSION: Minimal colonic distention. Kenneth Frost MD FACR Catheter Change 02/10/17 0000 Signed Impressions: Service Date/Time: February 13:47 - CONCLUSION: Uncomplicated fluoroscopic guided gastrostomy tube replacement. Positioning confirmed. The tube can be used immediately. Nghia Pacheco MD Lower Extremity Ultrasound 02/01/17 0000 Signed Impressions: Service Date/Time: Wednesday, February 01, 2017 13:23 - CONCLUSION: Normal examination. 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 Sami Mccarthy MD Procedures 11/24/2016 Percutaneous tracheostomy. 11/18/2016 Moderate encephalopathy with suggestion of left temporal region cortical irritability. No active seizures. Clinical correlation. Echocardiogram Severe dilated left ventricle. Wall thickness is normal. The left ventricular systolic function is moderately reduced with an estimated ejection fraction in the range of 35-40%. Doppler parameters are consistent with a restrictive left ventricular filling pattern indicative of decreased left ventricular diastolic compliance and increase left atrial pressure (grade 3 diastolic dysfunction). There is severe tricuspid regurgitation. There is severe pulmonary hypertension present ( > 70 mmHg). Severe mitral valve regurgitation. Other Results Laboratory Tests Test 11/17/16 23:30 11/18/16 04:09 11/18/16 04:35 11/29/16 10:45 Nasal Screen MRSA (PCR) NEGATIVE Blood Gas Ventilator Setting AC 10/450/PEEP5 Phenytoin (Dilantin) Level 1.4 MCG/ML Urine Squamous Epithelial Cells 1 /hpf Urine Transitional Epithelial Cells <1 /hpf Urine Calcium Oxalate Crystals RARE /hpf Urine Hyaline Casts 4 /lpf Test 12/18/16 05:52 12/20/16 22:39 01/09/17 15:19 01/09/17 21:00 Differential Total Cells Counted 100 Neutrophils % (Manual) 56 % Band Neutrophils % 4 % Lymphocytes % 23 % Monocytes % 12 % Eosinophils % 3 % Basophils % 2 % Neutrophils # (Manual) 5.0 TH/MM3 Platelet Estimate HIGH Platelet Morphology Comment NORMAL Vancomycin Level Trough 12.4 MCG/ML Procalcitonin 0.34 ng/mL Urine Eosinophils NONE SEEN /HPF Test 01/25/17 14:48 01/25/17 18:25 02/01/17 13:12 02/18/17 21:30 Iron Level 33 MCG/DL Total Iron Binding Capacity 307 MCG/DL Percent Iron Saturation 10.8 % Ferritin 346 NG/ML Urine Mucus FEW /lpf Activated Partial Thromboplast Time 34.5 SEC B-Type Natriuretic Peptide 689 PG/ML Stool C. difficile Toxin (PCR) NEGATIVE Stl C. difficile Toxin Epiderm 027 PRESUMPTIVE NEGATIVE Test 02/19/17 16:35 03/15/17 13:30 03/15/17 16:35 03/16/17 16:26 Hematology Comments Serum Osmolality 343 MOSM/KG Urine Osmolality 385 MOSM/KG Hemoglobin A1c 6.5 % Test 03/19/17 14:25 03/21/17 02:35 03/27/17 14:08 03/31/17 07:40 Urine Color YELLOW Urine Turbidity CLEAR Urine pH 7.0 Urine Specific [place] 1.026 Urine Protein 30 mg/dL Urine Glucose (UA) NEG mg/dL Urine Ketones NEG mg/dL Urine Occult Blood NEG Urine Nitrite NEG Urine Bilirubin NEG Urine Urobilinogen 4.0 MG/DL Urine Leukocyte Esterase MOD Urine RBC 4 /hpf Urine WBC 19 /hpf Urine Bacteria RARE /hpf Microscopic Urinalysis Comment CATH-CULTURE IND Total Bilirubin 0.5 MG/DL Direct Bilirubin 0.3 MG/DL Indirect Bilirubin 0.2 MG/DL Aspartate Amino Transf (AST/SGOT) 42 U/L Alanine Aminotransferase (ALT/SGPT) 39 U/L Alkaline Phosphatase 157 U/L Total Protein 7.8 GM/DL Albumin 2.7 GM/DL Free Thyroxine 1.25 NG/DL Thyroid Stimulating Hormone 3rd Gen 4.720 uIU/ML Fasting Glucose 107 MG/DL Carbamazepine (Tegretol) Level 7.1 MCG/ML Test 04/05/17 15:30 04/21/17 08:58 05/03/17 06:54 05/03/17 18:17 Levetiracetam (Keppra) Level 25.3 mcg/mL Ammonia 20 MCMOL/L White Blood Count 9.7 TH/MM3 Red Blood Count 4.07 MIL/MM3 Hemoglobin 9.5 GM/DL Hematocrit 30.3 % Mean Corpuscular Volume 74.4 FL Mean Corpuscular Hemoglobin 23.4 PG Mean Corpuscular Hemoglobin Concent 31.4 % Red Cell Distribution Width 20.9 % Platelet Count 583 TH/MM3 Mean Platelet Volume 7.9 FL Neutrophils (%) (Auto) 69.8 % Lymphocytes (%) (Auto) 19.0 % Monocytes (%) (Auto) 7.2 % Eosinophils (%) (Auto) 3.2 % Basophils (%) (Auto) 0.8 % Neutrophils # (Auto) 6.8 TH/MM3 Lymphocytes # (Auto) 1.8 TH/MM3 Monocytes # (Auto) 0.7 TH/MM3 Eosinophils # (Auto) 0.3 TH/MM3 Basophils # (Auto) 0.1 TH/MM3 CBC Comment DIFF FINAL Differential Comment Blood Urea Nitrogen 23 MG/DL Creatinine 0.43 MG/DL Random Glucose 122 MG/DL Calcium Level 8.9 MG/DL Phosphorus Level 4.1 MG/DL Magnesium Level 2.2 MG/DL Sodium Level 136 MEQ/L Potassium Level 4.2 MEQ/L Chloride Level 99 MEQ/L Carbon Dioxide Level 29.8 MEQ/L Anion Gap 7 MEQ/L Estimat Glomerular Filtration Rate 148 ML/MIN Blood Gas Puncture Site RT RADIAL Blood Gas Patient Temperature 98.6 Blood Gas HCO3 29 mmol/L Blood Gas Base Excess 5.9 mmol/L Blood Gas Oxygen Saturation 97 % Arterial Blood pH 7.49 Arterial Blood Partial Pressure CO2 39 mmHg Arterial Blood Partial Pressure O2 151 mmHg Arterial Blood Oxygen Content 12.3 Vol % Arterial Blood Carboxyhemoglobin 1.7 % Arterial Blood Methemoglobin 0.5 % Blood Gas Hemoglobin 8.7 G/DL Oxygen Delivery Device MASK Blood Gas Liter Flow 5 L/M Blood Gas Inspired Oxygen 28 % Test 05/08/17 07:00 Prothrombin Time 28.8 SEC Prothromb Time International Ratio 2.5 RATIO Objective Remarks GENERAL: Obese female patient lying in bed in NAD, t-collar in place. SKIN: Warm and dry. HEENT: Normocephalic. No scleral icterus. No injection or drainage. No nasal bleeding or discharge. Mucous membranes pink and moist. NECK: Supple. Tracheostomy in place. CARDIOVASCULAR: Regular rate and rhythm. S1, S2 noted. No murmur appreciated. RESPIRATORY: No accessory muscle use. Coarse breath sounds noted. No wheezing. GASTROINTESTINAL: Abdomen soft, non-tender, nondistended. Normoactive bowel sounds x4. PEG in place. : Brown kevan yellow urine. MUSCULOSKELETAL: No obvious deformities. Extremities without clubbing, cyanosis. Edematous extremities trace bilaterally. Anasarca. Bilateral hallux, trace edema - improving NEUROLOGICAL: Does not follow any commands. No spontaneous movement in upper or lower extremities. Medications and IVs Current Medications Medications (Trade) Dose Ordered Sig/Ora Route Start Time Stop Time Status Last Admin (Peridex 0.12% Liq) 15 ml BID@08,20 MT 11/18/16 08:00 05/08/17 20:10 (NS Flush) 2 ml BID IV FLUSH 11/18/16 09:00 05/08/17 21:49 (Morphine Inj) 2 mg Q2H PRN IV 11/18/16 03:30 03/27/17 10:13 (Zofran Inj) 4 mg Q6H PRN IV 11/18/16 03:30 11/26/16 03:20 Miscellaneous Information 1 Q361D XX 11/18/16 03:30 11/18/16 03:30 (Chlorhexidine 2% Cloth) 3 pack Taper DAILY@04 TOP 11/18/16 04:00 11/14/17 03:59 04/06/17 04:33 (Chlorhexidine 2% Cloth) 3 pack UNSCH PRN TOP 11/18/16 03:30 (Dulcolax Supp) 10 mg DAILY PRN RECTAL 12/14/16 15:45 (TEGretol LIQ) 200 mg Q12HR PEG 01/06/17 09:00 05/08/17 21:47 (Corby Powder) 1 pack BID G-TUBE 01/13/17 09:00 05/08/17 21:48 (Ferrous Sulfate Liq) 300 mg BID PEG 01/26/17 21:00 05/08/17 21:47 (Vitamin C) 500 mg BID PEG 01/26/17 21:00 05/08/17 21:47 ([place] 5-325 Mg) 1 tab Q4H PRN G-TUBE 02/01/17 11:30 04/09/17 20:25 (Tylenol) 650 mg Q6H PRN G-TUBE 02/01/17 09:30 04/07/17 22:09 (Lipitor) 40 mg DAILY G-TUBE 02/01/17 09:00 05/08/17 09:17 (Senna Liq) 8.8 mg BID G-TUBE 02/01/17 09:00 05/06/17 20:48 (D50w (Vial) Inj) 25 ml UNSCH PRN IV PUSH 02/01/17 09:15 (Glucagon Inj) 1 mg UNSCH PRN OTHER 02/01/17 09:15 (Betadine 10% Oint) 1 applic DAILY TOPICAL 02/15/17 09:00 05/08/17 09:18 (Zaroxolyn) 5 mg DAILY PEG 03/09/17 09:00 Future Hold 04/06/17 11:31 (Entresto 24-26 Mg) 1 tab BID PEG 03/08/17 21:00 05/08/17 21:47 (Free Water) VOLUME OF WATER: ( 300 ) ML Q8HR G-TUBE 03/09/17 14:00 05/09/17 05:38 (Levsin Liq) 0.125 mg Q6H G-TUBE 03/10/17 18:00 05/09/17 05:38 (Albuterol Neb) 0.63 mg Q4HR NEB PRN NEB 03/21/17 09:15 (Lopressor) 50 mg Q6HR G-TUBE 03/27/17 18:00 05/09/17 05:38 Pharmacy Profile Note 0 ml @ 0 mls/hr UNSCH OTHER 04/05/17 14:45 (Parlodel) 2.5 mg Q12HR PEG 04/07/17 21:00 05/08/17 21:48 (Pepcid) 20 mg BID PEG 04/07/17 21:00 05/08/17 21:47 (Folate) 1 mg DAILY PEG 04/08/17 09:00 05/08/17 09:16 (Keppra Liq) 1,000 mg Q12HR PEG 04/07/17 21:00 05/08/17 21:47 (KCl Powder) 20 meq DAILY PEG 04/08/17 09:00 05/08/17 09:17 (Santyl Oint) 1 applic DAILY TOPICAL 04/07/17 16:30 05/08/17 09:18 (Dakin'S 0.125% Soln) USE DAILY WITH DRESS... DAILY TOPICAL 04/29/17 09:00 05/08/17 09:18 (Lasix) 20 mg DAILY PEG 05/01/17 09:00 05/08/17 09:17 (Neosporin Oint) 1 applic DAILY TOPICAL 05/06/17 09:00 05/12/17 08:59 05/08/17 09:18 (Coumadin) 10 mg DAILY@1600 PO 05/08/17 16:00 05/08/17 16:07 A/P Assessment and Plan 65-year-old female with past medical history of CVA for which she at one point was on warfarin but had been discontinued. She was was admitted to [facility] emergency department 11/04/16 with difficulty getting her thoughts together. She was found to have multifocal ischemic infarcts in left frontal and parietal regions, right frontal lobe and history of moyamoya disease. She was initially awake and following commands with weakness of RLE and some aphasia. She was transferred to [facility] where he had an cerebral angiogram consistent with moyamoya. There were plans to perform extracranial/ intracranial bypass. However she had a seizure and ended up being intubated for status epilepticus 11/2016 She was found to have a new right frontal infarct area and she was started on Dilantin and Keppra and it was felt that she would not be a candidate for intervention. She has been intubated 9-10 days. Treating team was discussing with family trach/PEG. Family requested transfer back to [place] because they live locally here and wanted her closer to home. Patient remained under critical care medicine until 12/24/2016. Bilateral Hallux ingrown toenail - Podiatry consulted. Nails were manually debrided. Triple antibiotic 7-10 days. - Monitor for signs and symptoms of infection. - No purulent drainage noted. Edema on the lateral side of bilateral hallux resolving. Viridans strep bacteremia - resolved. Per ID, sputum cx with GNR and staph aureus ? colonization. Urine with Kleb pneumo and E Coli ? colonization - Repeat blood cx 03/23 shows no growth in 5 days. 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 - Continue aspirin - Continue Bromocriptine - Tegretol level WNL. Keppra level within normal. - Continue seizure precautions. Mixed Systolic and diastolic heart failure, acute - echocardiogram 02/02/17 shows EF 35-40%, grade 3 diastolic dysfunction, severe tricuspid regurgitation, severe pulmonary HTN and severe mitral valve regurgitation. - Continue Lasix 20mg daily - On Entresto - Monitor electrolytes and renal function. Monitor for signs and symptoms of overload. Atrial Fibrillation, acute: Controlled. - Follow daily INR. - Continue Coumadin. - Therapeutic Range Hyponatremia: BMP reviewed. Na 136. - Continue to monitor intermittently Anasarca - Lasix 20 mg daily - Improving Chronic Respiratory Failure Chronic obstructive pulmonary disease Multilobar pneumonia - Pulmonology following, appreciate input. - Continue tracheostomy with supplemental oxygen. Maintain O2 sat greater than 92% - Tobramycin completed, course ended on 01/20/17. - Continue duo nebs when necessary - Wean off tracheostomy. Levsin PRN for secretions. - Monitor Respiratory status Dysphagia Hypoalbuminemia - PEG placed. Continue TF. - Glucerna 1.5 at 60 ML's an hour - Continue Corby as ordered. Sacral/Coccyx wound - Continue specialty bed. - Wound care following - Apply nickel thick Santyl to necrotic tissue in wound bed prior to packing with Quarter strength Dakins moist to dry gauze dressing.This should be covered with ABD and secured with tape. - Log roll q2h GI Prophylaxis: Pepcid. DVT prophylaxis: SCDs. Coumadin. Discharge Planning 05/09/17 Spoke with Nieves from [facility] and she will follow up with Dylan and Marycarmen for financial part to determine the contract needs. 05/05/17 This pt has been accepted at [facility] in [place] per Day[facility] ([phone]) she has been trying to contact dtr Conrad for consents. LISA spoke with Conrad and she refuses to call Dayan[facility] back or complete admit packet because she does not want pt to be placed in [place]. Referral given to Nieves with [facility] and she is still reviewing pt and will speak with Dylan for contract information. 05/03/17 Spoke to pt dtr and she does not want pt to transfer to [place]/ Rehab. Call placed to Nieves with [facility] to see if she would re-evaluate this pt and placed consult via computer. [facility] was informed. Spoke to dtr and she will call [facility] back but has not answered their calls as of yet. Adrian Chang MD May 09, 2017 11:31
[2017-05-09] MEDS: SENNOSIDES SYRUP 8.8 MG/5 ML CUP G-TUBE SCH ×2 (11:42→22:21)
[2017-05-09] MEDS: BROMOCRIPTINE MESYLATE 2.5 MG TAB PEG SCH ×2 (11:42→22:23)
[2017-05-09] MEDS: carBAMazepine SUSP 200 MG/10 ML UDC PEG SCH ×2 (11:42→22:45)
[2017-05-09] MEDS: FAMOTIDINE 20 MG TAB PEG SCH ×2 (11:42→22:23)
[2017-05-09] MEDS: ATORVASTATIN 40 MG TAB G-TUBE SCH (11:43)
[2017-05-09] MEDS: FERROUS SULFATE 300 MG /5ML UDC PEG SCH ×2 (11:43→22:24)
[2017-05-09] MEDS: SACUBITRIL/VALSARTAN 24 MG-26 MG TAB PEG SCH ×2 (11:43→22:23)
[2017-05-09] MEDS: FOLIC ACID 1 MG TAB PEG SCH (11:44)
[2017-05-09] MEDS: ASCORBIC ACID 500 MG TAB PEG SCH ×2 (11:44→22:23)
[2017-05-09] MEDS: FUROSEMIDE 20 MG TAB PEG SCH (11:45)
[2017-05-09] MEDS: POTASSIUM CHLORIDE 20 MEQ PWD PACKET PEG SCH (11:48)
[2017-05-09] MEDS: SODIUM CHLORIDE 0.9% FLUSH 10 ML FLUSH IV FLUSH SCH ×2 (11:48→22:21)
[2017-05-09] MEDS: levETIRAcetam 500 MG/5 ML UDC PEG SCH ×2 (11:48→22:23)
[2017-05-09] MEDS: POVIDONE IODINE 10% OINT 30 GM TUBE TOPICAL SCH (12:00)
[2017-05-09] MEDS: SODIUM HYPOCHLORITE 0.125% 500 ML BTL TOPICAL SCH (12:11)
[2017-05-09] MEDS: COLLAGENASE OINT 30 GM TUBE TOPICAL SCH (12:11)
[2017-05-09] MEDS: CHLORHEXIDINE 0.12% (ORAL KIT) 15 ML CUP MT SCH ×2 (12:12→22:21)
[2017-05-09] MEDS: JUVEN POWDER 1 PACK G-TUBE SCH ×2 (12:12→22:52)
[2017-05-09 12:26] LABS: INTERNATIONAL NORMALIZED RATIO 2.4 RATIO; PROTHROMBIN TIME - PATIENT 27.6 SEC (9.8-11.6)
[2017-05-09] MEDS: NEOMYCIN/POLYMYXIN/BACITRACIN OINT 15 GM TUBE TOPICAL SCH (12:41)
--- NOTE | 2017-05-09 18:20 | HHI.PR ---
Subjective Remarks 66 YOWF with Rf, s/p trach H/O CVA,Arango Arango disease. On trach collar Mod amount of trach secretions. no fever. Awake, looks around Objective Vital Signs Vital Signs Date Time Temp Pulse Resp B/P (MAP) Pulse Ox O2 Delivery O2 Flow Rate FiO2 05/09/17 16:00 97.8 77 16 106/61 (76) 100 05/09/17 12:00 97.3 99 16 125/60 (81) 100 05/09/17 10:26 97.9 83 16 113/61 (78) 100 05/09/17 08:41 99 Trach Collar 5.00 05/09/17 04:00 98.8 89 20 121/57 (78) 100 05/09/17 04:00 Trach Collar 5.00 28 T-Piece 05/09/17 00:00 98.4 100 20 127/59 (81) 100 05/09/17 00:00 Trach Collar 5.00 28 T-Piece 05/08/17 20:00 98.9 76 18 109/56 (73) 100 05/08/17 20:00 77 05/08/17 20:00 Trach Collar 5.00 28 T-Piece I/O 05/08/17 05/08/17 05/08/17 05/09/17 05/09/17 05/09/17 07:00 15:00 23:00 07:00 15:00 23:00 Intake Total 0 ml Output Total 750 ml 751 ml 1000 ml 1050 ml Balance -750 ml -751 ml -1000 ml -1050 ml Intake Oral 0 ml Output Urine Total 750 ml 750 ml 1000 ml 1050 ml Stool Total 1 ml # Voids 0 # Bowel Movements 2 0 Objective Remarks GENERAL: MBMN WF, on Trach collar SKIN: Warm and dry. HEAD: Normocephalic. EYES: No scleral icterus. No injection or drainage. NECK: Supple, trachea midline. No JVD or lymphadenopathy. has trach CARDIOVASCULAR: Regular rate and rhythm without murmurs, gallops, or rubs. RESPIRATORY: Breath sounds equal bilaterally. No accessory muscle use. GASTROINTESTINAL: Abdomen soft, non-tender, nondistended. has PEG MUSCULOSKELETAL: No cyanosis, or edema. BACK: Nontender without obvious deformity. No CVA tenderness. A/P Assessment and Plan RF, S/P Trach CVA Arango arango disease CAD COPD SZ disorder PLAN: Aerosol nebs Cont trach collar supplement 02, keep sat >90%. TF Isabella.fernanda CHAVIS RN. Wean 02 Vernon Marx MD May 09, 2017 18:20
[2017-05-09] MEDS: WARFARIN SOD 10 MG TAB PO SCH (19:10)
[2017-05-10] VITALS (10 sets, daily range): BP systolic 112–125; BP diastolic 55–65; PULSE 67–108; RESP 16–20; TEMP 97.8–98.8; O2SAT 98–100
[2017-05-10] MEDS: CHLORHEXIDINE GLUCONATE 2 % 1 PACK (2 CLOTHS) TOP SCH (03:57)
[2017-05-10] MEDS: METOPROLOL TARTRATE 25 MG TAB G-TUBE SCH ×4 (05:39→17:28)
[2017-05-10] MEDS: HYOSCYAMINE SOLN 0.125 MG/ML 15 ML BTL G-TUBE SCH ×4 (05:40→17:28)
[2017-05-10] MEDS: FREE WATER G-TUBE SCH ×3 (05:40→22:07)
[2017-05-10] MEDS: JUVEN POWDER 1 PACK G-TUBE SCH ×2 (09:00→22:06)
[2017-05-10] MEDS: POTASSIUM CHLORIDE 20 MEQ PWD PACKET PEG SCH (09:00)
[2017-05-10] MEDS: NEOMYCIN/POLYMYXIN/BACITRACIN OINT 15 GM TUBE TOPICAL SCH (09:00)
[2017-05-10] MEDS: SODIUM HYPOCHLORITE 0.125% 500 ML BTL TOPICAL SCH (09:00)
[2017-05-10] MEDS: POVIDONE IODINE 10% OINT 30 GM TUBE TOPICAL SCH (09:00)
[2017-05-10] MEDS: COLLAGENASE OINT 30 GM TUBE TOPICAL SCH (09:00)
[2017-05-10] MEDS ORDERED: INFLUENZA VIRUS VACCINE (QUADRIVALENT) 0.5 ML SYR IM ONE (09:00)
[2017-05-10 10:13] LABS: INTERNATIONAL NORMALIZED RATIO 2.4 RATIO; PROTHROMBIN TIME - PATIENT 27.4 SEC (9.8-11.6)
[2017-05-10] MEDS: BROMOCRIPTINE MESYLATE 2.5 MG TAB PEG SCH ×2 (10:15→22:05)
[2017-05-10] MEDS: FUROSEMIDE 20 MG TAB PEG SCH (10:16)
[2017-05-10] MEDS: FERROUS SULFATE 300 MG /5ML UDC PEG SCH ×2 (10:16→22:05)
[2017-05-10] MEDS: SACUBITRIL/VALSARTAN 24 MG-26 MG TAB PEG SCH ×2 (10:16→22:05)
[2017-05-10] MEDS: ATORVASTATIN 40 MG TAB G-TUBE SCH (10:16)
[2017-05-10] MEDS: FOLIC ACID 1 MG TAB PEG SCH (10:17)
[2017-05-10] MEDS: FAMOTIDINE 20 MG TAB PEG SCH ×2 (10:17→22:05)
[2017-05-10] MEDS: carBAMazepine SUSP 200 MG/10 ML UDC PEG SCH ×2 (10:17→22:05)
[2017-05-10] MEDS: ASCORBIC ACID 500 MG TAB PEG SCH ×2 (10:17→22:05)
[2017-05-10] MEDS: SENNOSIDES SYRUP 8.8 MG/5 ML CUP G-TUBE SCH ×2 (10:18→22:04)
[2017-05-10] MEDS: SODIUM CHLORIDE 0.9% FLUSH 10 ML FLUSH IV FLUSH SCH ×2 (10:18→22:06)
[2017-05-10] MEDS: levETIRAcetam 500 MG/5 ML UDC PEG SCH ×2 (10:18→22:04)
[2017-05-10 10:31] LABS: BICARBONATE 29.3 MEQ/L (21.0-32.0); POTASSIUM 4.2 MEQ/L (3.5-5.1)
--- NOTE | 2017-05-10 14:42 | HHI.PR ---
Subjective Remarks Ms. Rivas is a 66-year-old female with a history of stroke who was admitted to the [facility] on 11/04/2016 due to difficulty getting her thoughts together. She was found to have multifocal nonhemorrhagic infarctions in the frontal and parietal regions. She was initially awake and following commands with weakness of RLE and some aphasia. She was transferred to [facility] where he had an cerebral angiogram consistent with moyamoya. There were plans to perform extracranial/intracranial bypass. However she had a seizure and ended up being intubated for status either 4/4 or 4/5.. She was found to have a new right frontal infarct area and she was started on Dilantin and Keppra and it was felt that she would not be a candidate for intervention. She has been intubated 9-10 days and apparently she has been tolerating C Pap trials to some extent but mental status prevents extubation. Treating team was discussing with family trach/PEG. Apparently family requested transfer back to [place] because they live locally here and wanted her closer to home. Patient remained under critical care medicine until 12/24/2016. Follow-up visit moyamoya disease, bilateral frontal CVA. Patient seen and examined today. discussed with nurse No new issues. Objective Vital Signs Date Time Temp Pulse Resp B/P (MAP) Pulse Ox O2 Delivery O2 Flow Rate FiO2 05/10/17 08:00 97.9 95 18 116/55 (75) 100 Manual Cuff/Auscultation 05/10/17 07:38 99 T-piece 5.00 28 05/10/17 04:00 97.8 108 16 123/64 (83) 100 05/10/17 00:00 97.8 82 16 121/65 (83) 100 05/09/17 20:06 67 05/09/17 20:00 T-Piece 5.00 05/09/17 20:00 97.8 83 18 125/60 (81) 100 05/09/17 16:00 97.8 77 16 106/61 (76) 100 I/O 05/09/17 05/09/17 05/09/17 05/10/17 05/10/17 05/10/17 07:00 15:00 23:00 07:00 15:00 23:00 Intake Total 0 ml Output Total 1000 ml 1050 ml 1450 ml Balance -1000 ml -1050 ml -1450 ml Intake Oral 0 ml Output Urine Total 1000 ml 1050 ml 1450 ml # Voids 0 # Bowel Movements 2 0 3 Result Diagram: 05/10/17 0901 Imaging Last Impressions Chest X-Ray 05/03/17 0000 Signed Impressions: Service Date/Time: Wednesday, May 03, 2017 18:00 - CONCLUSION: Similar findings to the March comparison with interstitial opacities and borderline cardiomegaly with a tracheostomy tube. No acute lobar consolidation demonstrated. Nghia Nuno MD Abdomen X-Ray 02/11/17 0000 Signed Impressions: Service Date/Time: Saturday, February 11, 2017 17:52 - CONCLUSION: Minimal colonic distention. Kenneth Frost MD FACR Catheter Change 02/10/17 0000 Signed Impressions: Service Date/Time: February 13:47 - CONCLUSION: Uncomplicated fluoroscopic guided gastrostomy tube replacement. Positioning confirmed. The tube can be used immediately. Nghia Pacheco MD Lower Extremity Ultrasound 02/01/17 0000 Signed Impressions: Service Date/Time: Wednesday, February 01, 2017 13:23 - CONCLUSION: Normal examination. 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 Sami Mccarthy MD Procedures 11/24/2016 Percutaneous tracheostomy. 11/18/2016 Moderate encephalopathy with suggestion of left temporal region cortical irritability. No active seizures. Clinical correlation. Echocardiogram Severe dilated left ventricle. Wall thickness is normal. The left ventricular systolic function is moderately reduced with an estimated ejection fraction in the range of 35-40%. Doppler parameters are consistent with a restrictive left ventricular filling pattern indicative of decreased left ventricular diastolic compliance and increase left atrial pressure (grade 3 diastolic dysfunction). There is severe tricuspid regurgitation. There is severe pulmonary hypertension present ( > 70 mmHg). Severe mitral valve regurgitation. Other Results Laboratory Tests Test 11/17/16 23:30 11/18/16 04:09 11/18/16 04:35 11/29/16 10:45 Nasal Screen MRSA (PCR) NEGATIVE Blood Gas Ventilator Setting AC 10/450/PEEP5 Phenytoin (Dilantin) Level 1.4 MCG/ML Urine Squamous Epithelial Cells 1 /hpf Urine Transitional Epithelial Cells <1 /hpf Urine Calcium Oxalate Crystals RARE /hpf Urine Hyaline Casts 4 /lpf Test 12/18/16 05:52 12/20/16 22:39 01/09/17 15:19 01/09/17 21:00 Differential Total Cells Counted 100 Neutrophils % (Manual) 56 % Band Neutrophils % 4 % Lymphocytes % 23 % Monocytes % 12 % Eosinophils % 3 % Basophils % 2 % Neutrophils # (Manual) 5.0 TH/MM3 Platelet Estimate HIGH Platelet Morphology Comment NORMAL Vancomycin Level Trough 12.4 MCG/ML Procalcitonin 0.34 ng/mL Urine Eosinophils NONE SEEN /HPF Test 01/25/17 14:48 01/25/17 18:25 02/01/17 13:12 02/18/17 21:30 Iron Level 33 MCG/DL Total Iron Binding Capacity 307 MCG/DL Percent Iron Saturation 10.8 % Ferritin 346 NG/ML Urine Mucus FEW /lpf Activated Partial Thromboplast Time 34.5 SEC B-Type Natriuretic Peptide 689 PG/ML Stool C. difficile Toxin (PCR) NEGATIVE Stl C. difficile Toxin Epiderm 027 PRESUMPTIVE NEGATIVE Test 02/19/17 16:35 03/15/17 13:30 03/15/17 16:35 03/16/17 16:26 Hematology Comments Serum Osmolality 343 MOSM/KG Urine Osmolality 385 MOSM/KG Hemoglobin A1c 6.5 % Test 03/19/17 14:25 03/21/17 02:35 03/27/17 14:08 03/31/17 07:40 Urine Color YELLOW Urine Turbidity CLEAR Urine pH 7.0 Urine Specific [place] 1.026 Urine Protein 30 mg/dL Urine Glucose (UA) NEG mg/dL Urine Ketones NEG mg/dL Urine Occult Blood NEG Urine Nitrite NEG Urine Bilirubin NEG Urine Urobilinogen 4.0 MG/DL Urine Leukocyte Esterase MOD Urine RBC 4 /hpf Urine WBC 19 /hpf Urine Bacteria RARE /hpf Microscopic Urinalysis Comment CATH-CULTURE IND Total Bilirubin 0.5 MG/DL Direct Bilirubin 0.3 MG/DL Indirect Bilirubin 0.2 MG/DL Aspartate Amino Transf (AST/SGOT) 42 U/L Alanine Aminotransferase (ALT/SGPT) 39 U/L Alkaline Phosphatase 157 U/L Total Protein 7.8 GM/DL Albumin 2.7 GM/DL Free Thyroxine 1.25 NG/DL Thyroid Stimulating Hormone 3rd Gen 4.720 uIU/ML Fasting Glucose 107 MG/DL Carbamazepine (Tegretol) Level 7.1 MCG/ML Test 04/05/17 15:30 04/21/17 08:58 05/03/17 06:54 05/03/17 18:17 Levetiracetam (Keppra) Level 25.3 mcg/mL Ammonia 20 MCMOL/L White Blood Count 9.7 TH/MM3 Red Blood Count 4.07 MIL/MM3 Hemoglobin 9.5 GM/DL Hematocrit 30.3 % Mean Corpuscular Volume 74.4 FL Mean Corpuscular Hemoglobin 23.4 PG Mean Corpuscular Hemoglobin Concent 31.4 % Red Cell Distribution Width 20.9 % Platelet Count 583 TH/MM3 Mean Platelet Volume 7.9 FL Neutrophils (%) (Auto) 69.8 % Lymphocytes (%) (Auto) 19.0 % Monocytes (%) (Auto) 7.2 % Eosinophils (%) (Auto) 3.2 % Basophils (%) (Auto) 0.8 % Neutrophils # (Auto) 6.8 TH/MM3 Lymphocytes # (Auto) 1.8 TH/MM3 Monocytes # (Auto) 0.7 TH/MM3 Eosinophils # (Auto) 0.3 TH/MM3 Basophils # (Auto) 0.1 TH/MM3 CBC Comment DIFF FINAL Differential Comment Blood Urea Nitrogen 23 MG/DL Creatinine 0.43 MG/DL Random Glucose 122 MG/DL Calcium Level 8.9 MG/DL Phosphorus Level 4.1 MG/DL Magnesium Level 2.2 MG/DL Sodium Level 136 MEQ/L Potassium Level 4.2 MEQ/L Chloride Level 99 MEQ/L Carbon Dioxide Level 29.8 MEQ/L Blood Gas Puncture Site RT RADIAL Blood Gas Patient Temperature 98.6 Blood Gas HCO3 29 mmol/L Blood Gas Base Excess 5.9 mmol/L Blood Gas Oxygen Saturation 97 % Arterial Blood pH 7.49 Arterial Blood Partial Pressure CO2 39 mmHg Arterial Blood Partial Pressure O2 151 mmHg Arterial Blood Oxygen Content 12.3 Vol % Arterial Blood Carboxyhemoglobin 1.7 % Arterial Blood Methemoglobin 0.5 % Blood Gas Hemoglobin 8.7 G/DL Oxygen Delivery Device MASK Blood Gas Liter Flow 5 L/M Blood Gas Inspired Oxygen 28 % Test 05/10/17 09:01 05/10/17 09:05 Blood Urea Nitrogen 16 MG/DL Creatinine 0.38 MG/DL Random Glucose 106 MG/DL Calcium Level 9.2 MG/DL Sodium Level 137 MEQ/L Potassium Level 4.2 MEQ/L Chloride Level 100 MEQ/L Carbon Dioxide Level 29.3 MEQ/L Anion Gap 8 MEQ/L Estimat Glomerular Filtration Rate 170 ML/MIN Prothrombin Time 27.4 SEC Prothromb Time International Ratio 2.4 RATIO Objective Remarks GENERAL: Obese female patient lying in bed in NAD, t-collar in place. SKIN: Warm and dry. HEENT: Normocephalic. No scleral icterus. No injection or drainage. No nasal bleeding or discharge. Mucous membranes pink and moist. NECK: Supple. Tracheostomy in place. CARDIOVASCULAR: Regular rate and rhythm. S1, S2 noted. No murmur appreciated. RESPIRATORY: No accessory muscle use. Coarse breath sounds noted. No wheezing. GASTROINTESTINAL: Abdomen soft, non-tender, nondistended. Normoactive bowel sounds x4. PEG in place. : Brown kevan yellow urine. MUSCULOSKELETAL: No obvious deformities. Extremities without clubbing, cyanosis. Edematous extremities trace bilaterally. Anasarca. Bilateral hallux, trace edema - improving NEUROLOGICAL: Does not follow any commands. No spontaneous movement in upper or lower extremities. Medications and IVs Current Medications Medications (Trade) Dose Ordered Sig/Ora Route Start Time Stop Time Status Last Admin (Peridex 0.12% Liq) 15 ml BID@08,20 MT 11/18/16 08:00 05/09/17 22:21 (NS Flush) 2 ml BID IV FLUSH 11/18/16 09:00 05/10/17 10:18 (Morphine Inj) 2 mg Q2H PRN IV 11/18/16 03:30 03/27/17 10:13 (Zofran Inj) 4 mg Q6H PRN IV 11/18/16 03:30 11/26/16 03:20 Miscellaneous Information 1 Q361D XX 11/18/16 03:30 11/18/16 03:30 (Chlorhexidine 2% Cloth) 3 pack Taper DAILY@04 TOP 11/18/16 04:00 11/14/17 03:59 04/06/17 04:33 (Chlorhexidine 2% Cloth) 3 pack UNSCH PRN TOP 11/18/16 03:30 (Dulcolax Supp) 10 mg DAILY PRN RECTAL 12/14/16 15:45 (TEGretol LIQ) 200 mg Q12HR PEG 01/06/17 09:00 05/10/17 10:17 (Corby Powder) 1 pack BID G-TUBE 01/13/17 09:00 05/10/17 09:00 (Ferrous Sulfate Liq) 300 mg BID PEG 01/26/17 21:00 05/10/17 10:16 (Vitamin C) 500 mg BID PEG 01/26/17 21:00 05/10/17 10:17 (Chandler 5-325 Mg) 1 tab Q4H PRN G-TUBE 02/01/17 11:30 04/09/17 20:25 (Tylenol) 650 mg Q6H PRN G-TUBE 02/01/17 09:30 04/07/17 22:09 (Lipitor) 40 mg DAILY G-TUBE 02/01/17 09:00 05/10/17 10:16 (Senna Liq) 8.8 mg BID G-TUBE 02/01/17 09:00 05/10/17 10:18 (D50w (Vial) Inj) 25 ml UNSCH PRN IV PUSH 02/01/17 09:15 (Glucagon Inj) 1 mg UNSCH PRN OTHER 02/01/17 09:15 (Betadine 10% Oint) 1 applic DAILY TOPICAL 02/15/17 09:00 05/10/17 09:00 (Zaroxolyn) 5 mg DAILY PEG 03/09/17 09:00 Future Hold 04/06/17 11:31 (Entresto 24-26 Mg) 1 tab BID PEG 03/08/17 21:00 05/10/17 10:16 (Free Water) VOLUME OF WATER: ( 300 ) ML Q8HR G-TUBE 03/09/17 14:00 05/10/17 13:07 (Levsin Liq) 0.125 mg Q6H G-TUBE 03/10/17 18:00 05/10/17 13:07 (Albuterol Neb) 0.63 mg Q4HR NEB PRN NEB 03/21/17 09:15 (Lopressor) 50 mg Q6HR G-TUBE 03/27/17 18:00 05/10/17 13:07 Pharmacy Profile Note 0 ml @ 0 mls/hr UNSCH OTHER 04/05/17 14:45 (Parlodel) 2.5 mg Q12HR PEG 04/07/17 21:00 05/10/17 10:15 (Pepcid) 20 mg BID PEG 04/07/17 21:00 05/10/17 10:17 (Folate) 1 mg DAILY PEG 04/08/17 09:00 05/10/17 10:17 (Keppra Liq) 1,000 mg Q12HR PEG 04/07/17 21:00 05/10/17 10:18 (KCl Powder) 20 meq DAILY PEG 04/08/17 09:00 05/10/17 09:00 (Santyl Oint) 1 applic DAILY TOPICAL 04/07/17 16:30 05/10/17 09:00 (Dakin'S 0.125% Soln) USE DAILY WITH DRESS... DAILY TOPICAL 04/29/17 09:00 05/10/17 09:00 (Lasix) 20 mg DAILY PEG 05/01/17 09:00 05/10/17 10:16 (Neosporin Oint) 1 applic DAILY TOPICAL 05/06/17 09:00 05/12/17 08:59 05/10/17 09:00 (Coumadin) 10 mg DAILY@1600 PO 05/08/17 16:00 05/09/17 19:10 A/P Assessment and Plan 65-year-old female with past medical history of CVA for which she at one point was on warfarin but had been discontinued. She was was admitted to [facility] emergency department 11/04/16 with difficulty getting her thoughts together. She was found to have multifocal ischemic infarcts in left frontal and parietal regions, right frontal lobe and history of moyamoya disease. She was initially awake and following commands with weakness of RLE and some aphasia. She was transferred to [facility] where he had an cerebral angiogram consistent with moyamoya. There were plans to perform extracranial/ intracranial bypass. However she had a seizure and ended up being intubated for status epilepticus 11/2016 She was found to have a new right frontal infarct area and she was started on Dilantin and Keppra and it was felt that she would not be a candidate for intervention. She has been intubated 9-10 days. Treating team was discussing with family trach/PEG. Family requested transfer back to [place] because they live locally here and wanted her closer to home. Patient remained under critical care medicine until 12/24/2016. Bilateral Hallux ingrown toenail - Podiatry consulted. Nails were manually debrided. Triple antibiotic 7-10 days. - Monitor for signs and symptoms of infection. - No purulent drainage noted. Edema on the lateral side of bilateral hallux resolving. Viridans strep bacteremia - resolved. Per ID, sputum cx with GNR and staph aureus ? colonization. Urine with Kleb pneumo and E Coli ? colonization - Repeat blood cx 03/23 shows no growth in 5 days. 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 - Continue aspirin - Continue Bromocriptine - Tegretol level WNL. Keppra level within normal. - Continue seizure precautions. Mixed Systolic and diastolic heart failure, acute - echocardiogram 02/02/17 shows EF 35-40%, grade 3 diastolic dysfunction, severe tricuspid regurgitation, severe pulmonary HTN and severe mitral valve regurgitation. - Continue Lasix 20mg daily - On Entresto - Monitor electrolytes and renal function. Monitor for signs and symptoms of overload. Atrial Fibrillation, acute: Controlled. - Follow daily INR. - Continue Coumadin. - Therapeutic Range Hyponatremia: BMP reviewed. Na 136. - Continue to monitor intermittently Anasarca - Lasix 20 mg daily - Improving Chronic Respiratory Failure Chronic obstructive pulmonary disease Multilobar pneumonia - Pulmonology following, appreciate input. - Continue tracheostomy with supplemental oxygen. Maintain O2 sat greater than 92% - Tobramycin completed, course ended on 01/20/17. - Continue duo nebs when necessary - Wean off tracheostomy. Levsin PRN for secretions. - Monitor Respiratory status Dysphagia Hypoalbuminemia - PEG placed. Continue TF. - Glucerna 1.5 at 60 ML's an hour - Continue Corby as ordered. Sacral/Coccyx wound - Continue specialty bed. - Wound care following - Apply nickel thick Santyl to necrotic tissue in wound bed prior to packing with Quarter strength Dakins moist to dry gauze dressing.This should be covered with ABD and secured with tape. - Log roll q2h GI Prophylaxis: Pepcid. DVT prophylaxis: SCDs. Coumadin. Discharge Planning 05/09/17 Spoke with Nieves from [facility] and she will follow up with Dylan and Marycarmen for financial part to determine the contract needs. 05/05/17 This pt has been accepted at [facility] [place] per Dayanara ([phone]) she has been trying to contact dtr Conrad for consents. LISA spoke with Conrad and she refuses to call Dayanara back or complete admit packet because she does not want pt to be placed in [place]. Referral given to Nieves with [facility] and she is still reviewing pt and will speak with Dylan for contract information. 05/03/17 Spoke to pt dtr and she does not want pt to transfer to [facility]. Call placed to Nieves with [facility] to see if she would re-evaluate this pt and placed consult via computer. [facility] was informed. Spoke to dtr and she will call [facility] back but has not answered their calls as of yet. Adrian Chang MD May 10, 2017 14:42
[2017-05-10] MEDS: WARFARIN SOD 10 MG TAB PO SCH (16:04)
--- NOTE | 2017-05-10 19:17 | HHI.PR ---
Subjective Remarks 66 YOWF with Rf, s/p trach H/O CVA,Arango Arnago disease. On trach collar Mod amount of trach secretions. no fever. Awake, looks around No new complaint Objective Vital Signs Vital Signs Date Time Temp Pulse Resp B/P (MAP) Pulse Ox O2 Delivery O2 Flow Rate FiO2 05/10/17 18:16 100 T-piece 6.00 28 05/10/17 16:00 98.2 78 16 112/57 (75) 98 05/10/17 12:00 98.8 90 18 121/59 (79) 100 05/10/17 08:00 Trach Collar 28 T-Piece 05/10/17 08:00 97.9 95 18 116/55 (75) 100 Manual Cuff/Auscultation 05/10/17 07:56 85 05/10/17 07:38 99 T-piece 5.00 28 05/10/17 04:00 97.8 108 16 123/64 (83) 100 05/10/17 00:00 97.8 82 16 121/65 (83) 100 05/09/17 20:06 67 05/09/17 20:00 T-Piece 5.00 05/09/17 20:00 97.8 83 18 125/60 (81) 100 I/O 05/09/17 05/09/17 05/09/17 05/10/17 05/10/17 05/10/17 07:00 15:00 23:00 07:00 15:00 23:00 Intake Total 0 ml 0 ml Output Total 1000 ml 1050 ml 1450 ml 1475 ml Balance -1000 ml -1050 ml -1450 ml -1475 ml Intake Oral 0 ml 0 ml Output Urine Total 1000 ml 1050 ml 1450 ml 1475 ml # Voids 0 # Bowel Movements 2 0 3 1 Result Diagram: 05/10/17 0901 Objective Remarks GENERAL: MBMN WF, on Trach collar SKIN: Warm and dry. HEAD: Normocephalic. EYES: No scleral icterus. No injection or drainage. NECK: Supple, trachea midline. No JVD or lymphadenopathy. has trach CARDIOVASCULAR: Regular rate and rhythm without murmurs, gallops, or rubs. RESPIRATORY: Breath sounds equal bilaterally. No accessory muscle use. GASTROINTESTINAL: Abdomen soft, non-tender, nondistended. has PEG MUSCULOSKELETAL: No cyanosis, or edema. BACK: Nontender without obvious deformity. No CVA tenderness. A/P Assessment and Plan RF, S/P Trach CVA Arango arango disease CAD COPD SZ disorder PLAN: Aerosol nebs Cont trach collar supplement 02, keep sat >90%. TF Levsin.prn PARTHA RN. Vernon Marx MD May 10, 2017 19:17
[2017-05-10] MEDS: CHLORHEXIDINE 0.12% (ORAL KIT) 15 ML CUP MT SCH (22:07)
[2017-05-11] VITALS (9 sets, daily range): BP systolic 111–132; BP diastolic 59–67; PULSE 80–98; RESP 16–20; TEMP 97.2–98.6; O2SAT 96–100
[2017-05-11] MEDS: METOPROLOL TARTRATE 25 MG TAB G-TUBE SCH ×5 (00:21→23:00)
[2017-05-11] MEDS: HYOSCYAMINE SOLN 0.125 MG/ML 15 ML BTL G-TUBE SCH ×5 (00:22→22:58)
[2017-05-11] MEDS: CHLORHEXIDINE GLUCONATE 2 % 1 PACK (2 CLOTHS) TOP SCH (03:15)
[2017-05-11] MEDS: FREE WATER G-TUBE SCH ×3 (05:17→22:58)
[2017-05-11] MEDS: CHLORHEXIDINE 0.12% (ORAL KIT) 15 ML CUP MT SCH ×2 (08:00→23:36)
[2017-05-11 08:57] LABS: INTERNATIONAL NORMALIZED RATIO 2.9 RATIO; PROTHROMBIN TIME - PATIENT 33.2 SEC (9.8-11.6)
[2017-05-11] MEDS: POVIDONE IODINE 10% OINT 30 GM TUBE TOPICAL SCH (09:00)
[2017-05-11] MEDS: POTASSIUM CHLORIDE 20 MEQ PWD PACKET PEG SCH (09:00)
[2017-05-11] MEDS: COLLAGENASE OINT 30 GM TUBE TOPICAL SCH (09:00)
[2017-05-11] MEDS: SODIUM HYPOCHLORITE 0.125% 500 ML BTL TOPICAL SCH (09:00)
[2017-05-11] MEDS: NEOMYCIN/POLYMYXIN/BACITRACIN OINT 15 GM TUBE TOPICAL SCH (09:00)
[2017-05-11] MEDS: FUROSEMIDE 20 MG TAB PEG SCH (09:00)
[2017-05-11] MEDS: JUVEN POWDER 1 PACK G-TUBE SCH ×2 (09:00→22:54)
[2017-05-11] MEDS: BROMOCRIPTINE MESYLATE 2.5 MG TAB PEG SCH ×2 (09:48→22:57)
[2017-05-11] MEDS: carBAMazepine SUSP 200 MG/10 ML UDC PEG SCH ×2 (09:48→22:57)
[2017-05-11] MEDS: levETIRAcetam 500 MG/5 ML UDC PEG SCH ×2 (09:48→22:56)
[2017-05-11] MEDS: FERROUS SULFATE 300 MG /5ML UDC PEG SCH ×2 (09:48→22:57)
[2017-05-11] MEDS: ATORVASTATIN 40 MG TAB G-TUBE SCH (09:48)
[2017-05-11] MEDS: SACUBITRIL/VALSARTAN 24 MG-26 MG TAB PEG SCH ×2 (09:48→22:57)
[2017-05-11] MEDS: SODIUM CHLORIDE 0.9% FLUSH 10 ML FLUSH IV FLUSH SCH ×2 (09:49→22:55)
[2017-05-11] MEDS: SENNOSIDES SYRUP 8.8 MG/5 ML CUP G-TUBE SCH ×2 (09:49→21:00)
--- NOTE | 2017-05-11 12:08 | HHI.PR ---
Subjective Remarks Ms. Rivas is a 66-year-old female with a history of stroke who was admitted to the [facility] on 11/04/2016 due to difficulty getting her thoughts together. She was found to have multifocal nonhemorrhagic infarctions in the frontal and parietal regions. She was initially awake and following commands with weakness of RLE and some aphasia. She was transferred to [facility] where he had an cerebral angiogram consistent with moyamoya. There were plans to perform extracranial/intracranial bypass. However she had a seizure and ended up being intubated for status either 4/4 or 4/.. She was found to have a new right frontal infarct area and she was started on Dilantin and Keppra and it was felt that she would not be a candidate for intervention. She has been intubated 9-10 days and apparently she has been tolerating C Pap trials to some extent but mental status prevents extubation. Treating team was discussing with family trach/PEG. Apparently family requested transfer back to [place] because they live locally here and wanted her closer to home. Patient remained under critical care medicine until 12/24/2016. Follow-up visit moyamoya disease, bilateral frontal CVA. Discussed with nurse Miss Dacosta, no new issues. Objective Vital Signs Date Time Temp Pulse Resp B/P (MAP) Pulse Ox O2 Delivery O2 Flow Rate FiO2 05/11/17 11:12 96 T-piece 6.00 28 05/11/17 08:00 98.4 84 16 111/67 (82) 100 05/11/17 04:00 98.6 95 20 131/59 (83) 100 05/11/17 00:00 97.2 91 20 132/62 (85) 05/10/17 22:26 T-Piece 5.00 05/10/17 20:37 67 05/10/17 20:00 98.2 88 20 125/61 (82) 100 05/10/17 18:16 100 T-piece 6.00 28 05/10/17 16:00 98.2 78 16 112/57 (75) 98 I/O 05/10/17 05/10/17 05/10/17 05/11/17 05/11/17 05/11/17 07:00 15:00 23:00 07:00 15:00 23:00 Intake Total 0 ml 968 ml Output Total 1450 ml 1775 ml 400 ml Balance -1450 ml -1775 ml 568 ml Intake Oral 0 ml Tube Feeding 968 ml Output Urine Total 1450 ml 1775 ml 400 ml # Bowel Movements 3 1 Result Diagram: 05/10/17 0901 Imaging Last Impressions Chest X-Ray 05/03/17 0000 Signed Impressions: Service Date/Time: Wednesday, May 03, 2017 18:00 - CONCLUSION: Similar findings to the March comparison with interstitial opacities and borderline cardiomegaly with a tracheostomy tube. No acute lobar consolidation demonstrated. Nghia Nuno MD Abdomen X-Ray 02/11/17 0000 Signed Impressions: Service Date/Time: Saturday, February 11, 2017 17:52 - CONCLUSION: Minimal colonic distention. Kenneth Frost MD FACR Catheter Change 02/10/17 0000 Signed Impressions: Service Date/Time: February 13:47 - CONCLUSION: Uncomplicated fluoroscopic guided gastrostomy tube replacement. Positioning confirmed. The tube can be used immediately. Nghia Pacheco MD Lower Extremity Ultrasound 02/01/17 0000 Signed Impressions: Service Date/Time: Wednesday, February 01, 2017 13:23 - CONCLUSION: Normal examination. 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 Sami Mccarthy MD Procedures 11/24/2016 Percutaneous tracheostomy. 11/18/2016 Moderate encephalopathy with suggestion of left temporal region cortical irritability. No active seizures. Clinical correlation. Echocardiogram Severe dilated left ventricle. Wall thickness is normal. The left ventricular systolic function is moderately reduced with an estimated ejection fraction in the range of 35-40%. Doppler parameters are consistent with a restrictive left ventricular filling pattern indicative of decreased left ventricular diastolic compliance and increase left atrial pressure (grade 3 diastolic dysfunction). There is severe tricuspid regurgitation. There is severe pulmonary hypertension present ( > 70 mmHg). Severe mitral valve regurgitation. Other Results Laboratory Tests Test 11/17/16 23:30 11/18/16 04:09 11/18/16 04:35 11/29/16 10:45 Nasal Screen MRSA (PCR) NEGATIVE Blood Gas Ventilator Setting AC 10/450/PEEP5 Phenytoin (Dilantin) Level 1.4 MCG/ML Urine Squamous Epithelial Cells 1 /hpf Urine Transitional Epithelial Cells <1 /hpf Urine Calcium Oxalate Crystals RARE /hpf Urine Hyaline Casts 4 /lpf Test 12/18/16 05:52 12/20/16 22:39 01/09/17 15:19 01/09/17 21:00 Differential Total Cells Counted 100 Neutrophils % (Manual) 56 % Band Neutrophils % 4 % Lymphocytes % 23 % Monocytes % 12 % Eosinophils % 3 % Basophils % 2 % Neutrophils # (Manual) 5.0 TH/MM3 Platelet Estimate HIGH Platelet Morphology Comment NORMAL Vancomycin Level Trough 12.4 MCG/ML Procalcitonin 0.34 ng/mL Urine Eosinophils NONE SEEN /HPF Test 01/25/17 14:48 01/25/17 18:25 02/01/17 13:12 02/18/17 21:30 Iron Level 33 MCG/DL Total Iron Binding Capacity 307 MCG/DL Percent Iron Saturation 10.8 % Ferritin 346 NG/ML Urine Mucus FEW /lpf Activated Partial Thromboplast Time 34.5 SEC B-Type Natriuretic Peptide 689 PG/ML Stool C. difficile Toxin (PCR) NEGATIVE Stl C. difficile Toxin Epiderm 027 PRESUMPTIVE NEGATIVE Test 02/19/17 16:35 03/15/17 13:30 03/15/17 16:35 03/16/17 16:26 Hematology Comments Serum Osmolality 343 MOSM/KG Urine Osmolality 385 MOSM/KG Hemoglobin A1c 6.5 % Test 03/19/17 14:25 03/21/17 02:35 03/27/17 14:08 03/31/17 07:40 Urine Color YELLOW Urine Turbidity CLEAR Urine pH 7.0 Urine Specific [place] 1.026 Urine Protein 30 mg/dL Urine Glucose (UA) NEG mg/dL Urine Ketones NEG mg/dL Urine Occult Blood NEG Urine Nitrite NEG Urine Bilirubin NEG Urine Urobilinogen 4.0 MG/DL Urine Leukocyte Esterase MOD Urine RBC 4 /hpf Urine WBC 19 /hpf Urine Bacteria RARE /hpf Microscopic Urinalysis Comment CATH-CULTURE IND Total Bilirubin 0.5 MG/DL Direct Bilirubin 0.3 MG/DL Indirect Bilirubin 0.2 MG/DL Aspartate Amino Transf (AST/SGOT) 42 U/L Alanine Aminotransferase (ALT/SGPT) 39 U/L Alkaline Phosphatase 157 U/L Total Protein 7.8 GM/DL Albumin 2.7 GM/DL Free Thyroxine 1.25 NG/DL Thyroid Stimulating Hormone 3rd Gen 4.720 uIU/ML Fasting Glucose 107 MG/DL Carbamazepine (Tegretol) Level 7.1 MCG/ML Test 04/05/17 15:30 04/21/17 08:58 05/03/17 06:54 05/03/17 18:17 Levetiracetam (Keppra) Level 25.3 mcg/mL Ammonia 20 MCMOL/L White Blood Count 9.7 TH/MM3 Red Blood Count 4.07 MIL/MM3 Hemoglobin 9.5 GM/DL Hematocrit 30.3 % Mean Corpuscular Volume 74.4 FL Mean Corpuscular Hemoglobin 23.4 PG Mean Corpuscular Hemoglobin Concent 31.4 % Red Cell Distribution Width 20.9 % Platelet Count 583 TH/MM3 Mean Platelet Volume 7.9 FL Neutrophils (%) (Auto) 69.8 % Lymphocytes (%) (Auto) 19.0 % Monocytes (%) (Auto) 7.2 % Eosinophils (%) (Auto) 3.2 % Basophils (%) (Auto) 0.8 % Neutrophils # (Auto) 6.8 TH/MM3 Lymphocytes # (Auto) 1.8 TH/MM3 Monocytes # (Auto) 0.7 TH/MM3 Eosinophils # (Auto) 0.3 TH/MM3 Basophils # (Auto) 0.1 TH/MM3 CBC Comment DIFF FINAL Differential Comment Blood Urea Nitrogen 23 MG/DL Creatinine 0.43 MG/DL Random Glucose 122 MG/DL Calcium Level 8.9 MG/DL Phosphorus Level 4.1 MG/DL Magnesium Level 2.2 MG/DL Sodium Level 136 MEQ/L Potassium Level 4.2 MEQ/L Chloride Level 99 MEQ/L Carbon Dioxide Level 29.8 MEQ/L Blood Gas Puncture Site RT RADIAL Blood Gas Patient Temperature 98.6 Blood Gas HCO3 29 mmol/L Blood Gas Base Excess 5.9 mmol/L Blood Gas Oxygen Saturation 97 % Arterial Blood pH 7.49 Arterial Blood Partial Pressure CO2 39 mmHg Arterial Blood Partial Pressure O2 151 mmHg Arterial Blood Oxygen Content 12.3 Vol % Arterial Blood Carboxyhemoglobin 1.7 % Arterial Blood Methemoglobin 0.5 % Blood Gas Hemoglobin 8.7 G/DL Oxygen Delivery Device MASK Blood Gas Liter Flow 5 L/M Blood Gas Inspired Oxygen 28 % Test 05/10/17 09:01 05/11/17 08:00 Blood Urea Nitrogen 16 MG/DL Creatinine 0.38 MG/DL Random Glucose 106 MG/DL Calcium Level 9.2 MG/DL Sodium Level 137 MEQ/L Potassium Level 4.2 MEQ/L Chloride Level 100 MEQ/L Carbon Dioxide Level 29.3 MEQ/L Anion Gap 8 MEQ/L Estimat Glomerular Filtration Rate 170 ML/MIN Prothrombin Time 33.2 SEC Prothromb Time International Ratio 2.9 RATIO Objective Remarks GENERAL: Obese female patient lying in bed in NAD, t-collar in place. SKIN: Warm and dry. HEENT: Normocephalic. No scleral icterus. No injection or drainage. No nasal bleeding or discharge. Mucous membranes pink and moist. NECK: Supple. Tracheostomy in place. CARDIOVASCULAR: Regular rate and rhythm. S1, S2 noted. No murmur appreciated. RESPIRATORY: No accessory muscle use. Coarse breath sounds noted. No wheezing. GASTROINTESTINAL: Abdomen soft, non-tender, nondistended. Normoactive bowel sounds x4. PEG in place. : Brown kevan yellow urine. MUSCULOSKELETAL: No obvious deformities. Extremities without clubbing, cyanosis. Edematous extremities trace bilaterally. Anasarca. Bilateral hallux, trace edema - improving NEUROLOGICAL: Does not follow any commands. No spontaneous movement in upper or lower extremities. Medications and IVs Current Medications Medications (Trade) Dose Ordered Sig/Ora Route Start Time Stop Time Status Last Admin (Peridex 0.12% Liq) 15 ml BID@08,20 MT 11/18/16 08:00 05/10/17 22:07 (NS Flush) 2 ml BID IV FLUSH 11/18/16 09:00 05/11/17 09:49 (Morphine Inj) 2 mg Q2H PRN IV 11/18/16 03:30 03/27/17 10:13 (Zofran Inj) 4 mg Q6H PRN IV 11/18/16 03:30 11/26/16 03:20 Miscellaneous Information 1 Q361D XX 11/18/16 03:30 11/18/16 03:30 (Chlorhexidine 2% Cloth) 3 pack Taper DAILY@04 TOP 11/18/16 04:00 11/14/17 03:59 04/06/17 04:33 (Chlorhexidine 2% Cloth) 3 pack UNSCH PRN TOP 11/18/16 03:30 (Dulcolax Supp) 10 mg DAILY PRN RECTAL 12/14/16 15:45 (TEGretol LIQ) 200 mg Q12HR PEG 01/06/17 09:00 05/11/17 09:48 (Corby Powder) 1 pack BID G-TUBE 01/13/17 09:00 05/11/17 09:00 (Ferrous Sulfate Liq) 300 mg BID PEG 01/26/17 21:00 05/11/17 09:48 (Vitamin C) 500 mg BID PEG 01/26/17 21:00 05/10/17 22:05 (Arlee 5-325 Mg) 1 tab Q4H PRN G-TUBE 02/01/17 11:30 04/09/17 20:25 (Tylenol) 650 mg Q6H PRN G-TUBE 02/01/17 09:30 04/07/17 22:09 (Lipitor) 40 mg DAILY G-TUBE 02/01/17 09:00 05/11/17 09:48 (Senna Liq) 8.8 mg BID G-TUBE 02/01/17 09:00 05/11/17 09:49 (D50w (Vial) Inj) 25 ml UNSCH PRN IV PUSH 02/01/17 09:15 (Glucagon Inj) 1 mg UNSCH PRN OTHER 02/01/17 09:15 (Betadine 10% Oint) 1 applic DAILY TOPICAL 02/15/17 09:00 05/10/17 09:00 (Zaroxolyn) 5 mg DAILY PEG 03/09/17 09:00 Future Hold 04/06/17 11:31 (Entresto 24-26 Mg) 1 tab BID PEG 03/08/17 21:00 05/11/17 09:48 (Free Water) VOLUME OF WATER: ( 300 ) ML Q8HR G-TUBE 03/09/17 14:00 05/11/17 05:17 (Levsin Liq) 0.125 mg Q6H G-TUBE 03/10/17 18:00 05/11/17 05:17 (Albuterol Neb) 0.63 mg Q4HR NEB PRN NEB 03/21/17 09:15 (Lopressor) 50 mg Q6HR G-TUBE 03/27/17 18:00 05/11/17 05:16 Pharmacy Profile Note 0 ml @ 0 mls/hr UNSCH OTHER 04/05/17 14:45 (Parlodel) 2.5 mg Q12HR PEG 04/07/17 21:00 05/11/17 09:48 (Pepcid) 20 mg BID PEG 04/07/17 21:00 05/10/17 22:05 (Folate) 1 mg DAILY PEG 04/08/17 09:00 05/10/17 10:17 (Keppra Liq) 1,000 mg Q12HR PEG 04/07/17 21:00 05/11/17 09:48 (KCl Powder) 20 meq DAILY PEG 04/08/17 09:00 05/10/17 09:00 (Santyl Oint) 1 applic DAILY TOPICAL 04/07/17 16:30 05/10/17 09:00 (Dakin'S 0.125% Soln) USE DAILY WITH DRESS... DAILY TOPICAL 04/29/17 09:00 05/10/17 09:00 (Lasix) 20 mg DAILY PEG 05/01/17 09:00 05/10/17 10:16 (Neosporin Oint) 1 applic DAILY TOPICAL 05/06/17 09:00 05/12/17 08:59 05/10/17 09:00 (Coumadin) 10 mg DAILY@1600 PO 05/08/17 16:00 Future Hold 05/10/17 16:04 A/P Assessment and Plan 65-year-old female with past medical history of CVA for which she at one point was on warfarin but had been discontinued. She was was admitted to [facility] emergency department 11/04/16 with difficulty getting her thoughts together. She was found to have multifocal ischemic infarcts in left frontal and parietal regions, right frontal lobe and history of moyamoya disease. She was initially awake and following commands with weakness of RLE and some aphasia. She was transferred to [facility] where he had an cerebral angiogram consistent with moyamoya. There were plans to perform extracranial/ intracranial bypass. However she had a seizure and ended up being intubated for status epilepticus 11/2016 She was found to have a new right frontal infarct area and she was started on Dilantin and Keppra and it was felt that she would not be a candidate for intervention. She has been intubated 9-10 days. Treating team was discussing with family trach/PEG. Family requested transfer back to [place] because they live locally here and wanted her closer to home. Patient remained under critical care medicine until 12/24/2016. Bilateral Hallux ingrown toenail - Podiatry consulted. Nails were manually debrided. Triple antibiotic 7-10 days. - Monitor for signs and symptoms of infection. - No purulent drainage noted. Edema on the lateral side of bilateral hallux resolving. Viridans strep bacteremia - resolved. Per ID, sputum cx with GNR and staph aureus ? colonization. Urine with Kleb pneumo and E Coli ? colonization - Repeat blood cx 03/23 shows no growth in 5 days. 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 - Continue aspirin - Continue Bromocriptine - Tegretol level WNL. Keppra level within normal. - Continue seizure precautions. Mixed Systolic and diastolic heart failure, acute - echocardiogram 02/02/17 shows EF 35-40%, grade 3 diastolic dysfunction, severe tricuspid regurgitation, severe pulmonary HTN and severe mitral valve regurgitation. - Continue Lasix 20mg daily - On Entresto - Monitor electrolytes and renal function. Monitor for signs and symptoms of overload. Atrial Fibrillation, acute: Controlled. - Follow daily INR. - Continue Coumadin. - Therapeutic Range Hyponatremia: BMP reviewed. Na 136. - Continue to monitor intermittently Anasarca - Lasix 20 mg daily - Improving Chronic Respiratory Failure Chronic obstructive pulmonary disease Multilobar pneumonia - Pulmonology following, appreciate input. - Continue tracheostomy with supplemental oxygen. Maintain O2 sat greater than 92% - Tobramycin completed, course ended on 01/20/17. - Continue duo nebs when necessary - Wean off tracheostomy. Levsin PRN for secretions. - Monitor Respiratory status Dysphagia Hypoalbuminemia - PEG placed. Continue TF. - Glucerna 1.5 at 60 ML's an hour - Continue Corby as ordered. Sacral/Coccyx wound - Continue specialty bed. - Wound care following - Apply nickel thick Santyl to necrotic tissue in wound bed prior to packing with Quarter strength Dakins moist to dry gauze dressing.This should be covered with ABD and secured with tape. - Log roll q2h GI Prophylaxis: Pepcid. DVT prophylaxis: SCDs. Coumadin. Discharge Planning 05/09/17 Spoke with Nieves from [facility] and she will follow up with Dylan and Marycarmen for financial part to determine the contract needs. 05/05/17 This pt has been accepted at [facility] in [place] per Dayanara ([phone]) she has been trying to contact dtr Conrad for consents. LISA spoke with Conrad and she refuses to call Dayanara back or complete admit packet because she does not want pt to be placed in [place]. Referral given to Nieves with [facility] and she is still reviewing pt and will speak with Dylan for contract information. 05/03/17 Spoke to pt dtr and she does not want pt to transfer to [place]. Call placed to Nieves with [facility] to see if she would re-evaluate this pt and placed consult via computer. Dylan [facility] Specialist was informed. Spoke to dtr and she will call [facility] back but has not answered their calls as of yet. Adrian Chang MD May 11, 2017 12:08
[2017-05-11] MEDS: FAMOTIDINE 20 MG TAB PEG SCH ×2 (13:08→22:57)
[2017-05-11] MEDS: ASCORBIC ACID 500 MG TAB PEG SCH ×2 (13:08→22:57)
[2017-05-11] MEDS: FOLIC ACID 1 MG TAB PEG SCH (13:08)
--- NOTE | 2017-05-11 15:39 | HHI.PR ---
Subjective Remarks 66 YOWF with Rf, s/p trach H/O CVA,Arango Arango disease. On trach collar Mod amount of trach secretions. no fever. No new complaint Objective Vital Signs Vital Signs Date Time Temp Pulse Resp B/P (MAP) Pulse Ox O2 Delivery O2 Flow Rate FiO2 05/11/17 12:00 98.3 98 16 119/65 (83) 98 05/11/17 11:12 96 T-piece 6.00 28 05/11/17 09:00 Trach Collar 28 T-Piece 05/11/17 08:00 98.4 84 16 111/67 (82) 100 05/11/17 04:00 98.6 95 20 131/59 (83) 100 05/11/17 00:00 97.2 91 20 132/62 (85) 05/10/17 22:26 T-Piece 5.00 05/10/17 20:37 67 05/10/17 20:00 98.2 88 20 125/61 (82) 100 05/10/17 18:16 100 T-piece 6.00 28 05/10/17 16:00 98.2 78 16 112/57 (75) 98 I/O 05/10/17 05/10/17 05/10/17 05/11/17 05/11/17 05/11/17 07:00 15:00 23:00 07:00 15:00 23:00 Intake Total 0 ml 968 ml Output Total 1450 ml 1775 ml 400 ml Balance -1450 ml -1775 ml 568 ml Intake Oral 0 ml Tube Feeding 968 ml Output Urine Total 1450 ml 1775 ml 400 ml # Bowel Movements 3 1 Result Diagram: 05/10/17900 Objective Remarks GENERAL: MBMN WF, on Trach collar SKIN: Warm and dry. HEAD: Normocephalic. EYES: No scleral icterus. No injection or drainage. NECK: Supple, trachea midline. No JVD or lymphadenopathy. has trach CARDIOVASCULAR: Regular rate and rhythm without murmurs, gallops, or rubs. RESPIRATORY: Breath sounds equal bilaterally. No accessory muscle use. GASTROINTESTINAL: Abdomen soft, non-tender, nondistended. has PEG MUSCULOSKELETAL: No cyanosis, or edema. BACK: Nontender without obvious deformity. No CVA tenderness. A/P Assessment and Plan RF, S/P Trach CVA Arango arango disease CAD COPD SZ disorder PLAN: Aerosol nebs Cont trach collar supplement 02, keep sat >90%. SHAWN CHAVIS RN. Vernon Marx MD May 11, 2017 15:39
[2017-05-12] VITALS (8 sets, daily range): BP systolic 104–141; BP diastolic 53–65; PULSE 78–103; RESP 17–20; TEMP 97.2–100; O2SAT 97–100
[2017-05-12] MEDS: CHLORHEXIDINE GLUCONATE 2 % 1 PACK (2 CLOTHS) TOP SCH (04:00)
[2017-05-12] MEDS: HYOSCYAMINE SOLN 0.125 MG/ML 15 ML BTL G-TUBE SCH ×4 (07:21→23:15)
[2017-05-12] MEDS: METOPROLOL TARTRATE 25 MG TAB G-TUBE SCH ×4 (07:21→23:15)
[2017-05-12] MEDS: FREE WATER G-TUBE SCH ×3 (07:21→20:31)
[2017-05-12] MEDS: CHLORHEXIDINE 0.12% (ORAL KIT) 15 ML CUP MT SCH ×2 (08:00→20:00)
[2017-05-12] MEDS: COLLAGENASE OINT 30 GM TUBE TOPICAL SCH (09:00)
[2017-05-12] MEDS: POTASSIUM CHLORIDE 20 MEQ PWD PACKET PEG SCH (09:00)
[2017-05-12] MEDS: SODIUM CHLORIDE 0.9% FLUSH 10 ML FLUSH IV FLUSH SCH ×2 (09:00→20:06)
[2017-05-12] MEDS: JUVEN POWDER 1 PACK G-TUBE SCH ×2 (09:00→20:31)
[2017-05-12] MEDS: POVIDONE IODINE 10% OINT 30 GM TUBE TOPICAL SCH (09:00)
[2017-05-12] MEDS: levETIRAcetam 500 MG/5 ML UDC PEG SCH ×2 (10:19→20:05)
[2017-05-12] MEDS: BROMOCRIPTINE MESYLATE 2.5 MG TAB PEG SCH ×2 (10:19→20:05)
[2017-05-12] MEDS: SENNOSIDES SYRUP 8.8 MG/5 ML CUP G-TUBE SCH ×2 (10:19→20:05)
[2017-05-12] MEDS: carBAMazepine SUSP 200 MG/10 ML UDC PEG SCH ×2 (10:19→20:05)
[2017-05-12] MEDS: FERROUS SULFATE 300 MG /5ML UDC PEG SCH ×2 (10:19→20:05)
[2017-05-12] MEDS: ASCORBIC ACID 500 MG TAB PEG SCH ×2 (10:20→20:05)
[2017-05-12] MEDS: SACUBITRIL/VALSARTAN 24 MG-26 MG TAB PEG SCH ×2 (10:20→20:05)
[2017-05-12] MEDS: FUROSEMIDE 20 MG TAB PEG SCH (10:20)
[2017-05-12] MEDS: FOLIC ACID 1 MG TAB PEG SCH (10:20)
[2017-05-12] MEDS: ATORVASTATIN 40 MG TAB G-TUBE SCH (10:20)
[2017-05-12] MEDS: FAMOTIDINE 20 MG TAB PEG SCH ×2 (10:21→20:05)
[2017-05-12] MEDS: SODIUM HYPOCHLORITE 0.125% 500 ML BTL TOPICAL SCH (10:22)
--- NOTE | 2017-05-12 11:31 | PD.WCN.NOT ---
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 Communicated with: KasieRN Student RN's Recommendation: Apply nickel thick Santyl to necrotic tissue in wound bed prior to lightly packing with Quarter strength Dakins moist to dry gauze dressing secured with dry cover. Additional Information: Patient seen on 4 for wound assessment. Patient was positioned to her left side upon entering room with WAVE bed in use. Tube feed placed on hold prior to assessment. Soft heel raiser boots and SCD's removed for visualization of feet and legs. Dried blood is noted to bilateral great toes from previous nail clippings per podiatry. Left lateral malleolus is noted with dried blood that appears to have been remnants of a scrape possibly caused from SCD positioning with folds and wrinkles noted. SCD's were repositioned and wrinkles/ folds were removed for appropriate fitting. Right heel is noted with non blanching erythema measuring ~1cm x 1cm that was left open to air and floated after heel was positioned properly within the heel raiser boot and secured. Patient was positioned further onto her left side with assistance from Nursing Students at bedside and pillows were removed for assessment of wound to sacrum/ coccyx. Bordered gauze and packing was removed to reveal a moderately vascular wound bed with ~70% red non granulating tissue that presents as muscle, ~20% montemayor/yellow adherent necrotic tissue, and ~10% bone palpated. Wound was cleansed with Quarter strength DAKINS solution moistened gauze prior to measuring wound. Wound is 7.4cm x 4cm x 3.5cm with undermining noted from 9o' clock to 5o'clock with the deepest measuring 6.4cm @12 and @3 o'clock. Wound margins are open from 11 o'clock to 7 o'clock and epibole from 7o'clock -11 o' clock. There is minimal sanguinous drainage and no odor noted to wound at this time. When wound is <10% necrotic a wound VAC may be appropriate for application if ok with Plastic Surgeon. No new recommendations at this time. Patient had a small black/green soft bm during assessment. Stephany Fang [facility] May 12, 2017 11:14
--- NOTE | 2017-05-12 11:57 | HHI.PR ---
Subjective Remarks The pt was resting comfortably in bed. No acute concerns reported. Discussed with case management. Objective Vitals Vital Signs Date Time Temp Pulse Resp B/P (MAP) Pulse Ox O2 Delivery O2 Flow Rate FiO2 05/12/17 08:00 100.0 103 18 115/58 (77) 97 05/12/17 04:00 97.3 99 19 134/62 (86) 100 05/12/17 00:00 98.8 89 17 127/61 (83) 100 05/11/17 20:00 98.3 83 18 117/63 (81) 100 05/11/17 19:15 Trach Collar 28 T-Piece 05/11/17 17:41 98 T-piece 6.00 28 05/11/17 16:00 98.0 82 18 126/59 (81) 98 05/11/17 12:00 98.3 98 16 119/65 (83) 98 I/O 05/11/17 05/11/17 05/11/17 05/12/17 05/12/17 05/12/17 07:00 15:00 23:00 07:00 15:00 23:00 Intake Total 968 ml 0 ml 1861 ml Output Total 400 ml 700 ml Balance 568 ml -700 ml 1861 ml Intake Oral 0 ml Tube Feeding 968 ml 1261 ml Other 600 ml Output Urine Total 400 ml 700 ml # Bowel Movements 1 Result Diagram: 05/10/17 0901 Imaging Last Impressions Chest X-Ray 05/03/17 0000 Signed Impressions: Service Date/Time: Wednesday, May 03, 2017 18:00 - CONCLUSION: Similar findings to the March comparison with interstitial opacities and borderline cardiomegaly with a tracheostomy tube. No acute lobar consolidation demonstrated. Nghia Nuno MD Abdomen X-Ray 02/11/17 0000 Signed Impressions: Service Date/Time: Saturday, February 11, 2017 17:52 - CONCLUSION: Minimal colonic distention. Kenneth Frost MD FACR Catheter Change 02/10/17 0000 Signed Impressions: Service Date/Time: February 13:47 - CONCLUSION: Uncomplicated fluoroscopic guided gastrostomy tube replacement. Positioning confirmed. The tube can be used immediately. Nghia Pacheco MD Lower Extremity Ultrasound 02/01/17 0000 Signed Impressions: Service Date/Time: Wednesday, February 01, 2017 13:23 - CONCLUSION: Normal examination. 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 Sami Mccarthy MD Objective Remarks GENERAL: Obese female patient lying in bed in NAD, t-collar in place. SKIN: Warm and dry. HEENT: Normocephalic. No scleral icterus. No injection or drainage. No nasal bleeding or discharge. Mucous membranes pink and moist. NECK: Supple. Tracheostomy in place. CARDIOVASCULAR: Regular rate and rhythm. S1, S2 noted. No murmur appreciated. RESPIRATORY: No accessory muscle use. Coarse breath sounds noted. No wheezing. GASTROINTESTINAL: Abdomen soft, non-tender, nondistended. Normoactive bowel sounds x4. PEG in place. MUSCULOSKELETAL: No obvious deformities. Extremities without clubbing, cyanosis. Edematous extremities trace bilaterally. Anasarca. Bilateral hallux, trace edema - improving NEUROLOGICAL: Does not follow any commands. No spontaneous movement in upper or lower extremities. PSYCH: Flat affect. Procedures 11/24/2016 Percutaneous tracheostomy. 11/18/2016 Moderate encephalopathy with suggestion of left temporal region cortical irritability. No active seizures. Clinical correlation. Echocardiogram Severe dilated left ventricle. Wall thickness is normal. The left ventricular systolic function is moderately reduced with an estimated ejection fraction in the range of 35-40%. Doppler parameters are consistent with a restrictive left ventricular filling pattern indicative of decreased left ventricular diastolic compliance and increase left atrial pressure (grade 3 diastolic dysfunction). There is severe tricuspid regurgitation. There is severe pulmonary hypertension present ( > 70 mmHg). Severe mitral valve regurgitation. Medications and IVs Current Medications Medications (Trade) Dose Ordered Sig/Ora Route Start Time Stop Time Status Last Admin (Peridex 0.12% Liq) 15 ml BID@08,20 MT 11/18/16 08:00 05/11/17 23:36 (NS Flush) 2 ml BID IV FLUSH 11/18/16 09:00 05/11/17 22:55 (Morphine Inj) 2 mg Q2H PRN IV 11/18/16 03:30 03/27/17 10:13 (Zofran Inj) 4 mg Q6H PRN IV 11/18/16 03:30 11/26/16 03:20 Miscellaneous Information 1 Q361D XX 11/18/16 03:30 11/18/16 03:30 (Chlorhexidine 2% Cloth) 3 pack Taper DAILY@04 TOP 11/18/16 04:00 11/14/17 03:59 04/06/17 04:33 (Chlorhexidine 2% Cloth) 3 pack UNSCH PRN TOP 11/18/16 03:30 (Dulcolax Supp) 10 mg DAILY PRN RECTAL 12/14/16 15:45 (TEGretol LIQ) 200 mg Q12HR PEG 01/06/17 09:00 05/12/17 10:19 (Corby Powder) 1 pack BID G-TUBE 01/13/17 09:00 05/11/17 22:54 (Ferrous Sulfate Liq) 300 mg BID PEG 01/26/17 21:00 05/12/17 10:19 (Vitamin C) 500 mg BID PEG 01/26/17 21:00 05/12/17 10:20 (Berkeley 5-325 Mg) 1 tab Q4H PRN G-TUBE 02/01/17 11:30 04/09/17 20:25 (Tylenol) 650 mg Q6H PRN G-TUBE 02/01/17 09:30 04/07/17 22:09 (Lipitor) 40 mg DAILY G-TUBE 02/01/17 09:00 05/12/17 10:20 (Senna Liq) 8.8 mg BID G-TUBE 02/01/17 09:00 05/12/17 10:19 (D50w (Vial) Inj) 25 ml UNSCH PRN IV PUSH 02/01/17 09:15 (Glucagon Inj) 1 mg UNSCH PRN OTHER 02/01/17 09:15 (Betadine 10% Oint) 1 applic DAILY TOPICAL 02/15/17 09:00 05/12/17 09:00 (Zaroxolyn) 5 mg DAILY PEG 03/09/17 09:00 Future Hold 04/06/17 11:31 (Entresto 24-26 Mg) 1 tab BID PEG 03/08/17 21:00 05/12/17 10:20 (Free Water) VOLUME OF WATER: ( 300 ) ML Q8HR G-TUBE 03/09/17 14:00 05/12/17 07:21 (Levsin Liq) 0.125 mg Q6H G-TUBE 03/10/17 18:00 05/12/17 10:24 (Albuterol Neb) 0.63 mg Q4HR NEB PRN NEB 03/21/17 09:15 (Lopressor) 50 mg Q6HR G-TUBE 03/27/17 18:00 05/12/17 07:21 Pharmacy Profile Note 0 ml @ 0 mls/hr UNSCH OTHER 04/05/17 14:45 (Parlodel) 2.5 mg Q12HR PEG 04/07/17 21:00 05/12/17 10:19 (Pepcid) 20 mg BID PEG 04/07/17 21:00 05/12/17 10:21 (Folate) 1 mg DAILY PEG 04/08/17 09:00 05/12/17 10:20 (Keppra Liq) 1,000 mg Q12HR PEG 04/07/17 21:00 05/12/17 10:19 (KCl Powder) 20 meq DAILY PEG 04/08/17 09:00 05/12/17 09:00 (Santyl Oint) 1 applic DAILY TOPICAL 04/07/17 16:30 05/12/17 09:00 (Dakin'S 0.125% Soln) USE DAILY WITH DRESS... 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 Status: Acute (2) Seizure ICD Code: R56.9 - Unspecified convulsions Status: Acute (3) CVA (cerebral vascular accident) ICD Code: I63.9 - Cerebral infarction, unspecified Status: Acute (4) Respiratory failure, acute ICD Code: J96.00 - Acute respiratory failure, unspecified whether with hypoxia or hypercapnia Status: Acute (5) COPD (chronic obstructive pulmonary disease) ICD Code: J44.9 - Chronic obstructive pulmonary disease, unspecified Status: Chronic (6) Acute hypernatremia ICD Code: E87.0 - Hyperosmolality and hypernatremia Status: Resolved (7) Microcytic anemia ICD Code: D50.9 - Iron deficiency anemia, unspecified Assessment and Plan 65-year-old female with past medical history of CVA for which she at one point was on warfarin but had been discontinued. She was was admitted to [facility] emergency department 11/04/16 with difficulty getting her thoughts together. She was found to have multifocal ischemic infarcts in left frontal and parietal regions, right frontal lobe and history of moyamoya disease. She was initially awake and following commands with weakness of RLE and some aphasia. She was transferred to [facility] where he had an cerebral angiogram consistent with moyamoya. There were plans to perform extracranial/ intracranial bypass. However she had a seizure and ended up being intubated for status epilepticus 11/2016 She was found to have a new right frontal infarct area and she was started on Dilantin and Keppra and it was felt that she would not be a candidate for intervention. She has been intubated 9-10 days. Treating team was discussing with family trach/PEG. Family requested transfer back to [place] because they live locally here and wanted her closer to home. Patient remained under critical care medicine until 12/24/2016. Bilateral Hallux ingrown toenail - Podiatry consulted. Nails were manually debrided. Triple antibiotic 7-10 days. - Monitor for signs and symptoms of infection. - No purulent drainage noted. Edema on the lateral side of bilateral hallux resolving. Viridans strep bacteremia - resolved. Per ID, sputum cx with GNR and staph aureus ? colonization. Urine with Kleb pneumo and E Coli ? colonization - Repeat blood cx 03/23 shows no growth in 5 days. 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 - Continue aspirin - Continue Bromocriptine - Tegretol level WNL. Keppra level within normal. - Continue seizure precautions. Mixed Systolic and diastolic heart failure, acute - echocardiogram 02/02/17 shows EF 35-40%, grade 3 diastolic dysfunction, severe tricuspid regurgitation, severe pulmonary HTN and severe mitral valve regurgitation. - Continue Lasix 20mg daily - On Entresto - Monitor electrolytes and renal function. Monitor for signs and symptoms of overload. Atrial Fibrillation, acute: Controlled. - Follow daily INR. 2 05/12. - Continue Coumadin. - Therapeutic Range Hyponatremia: BMP reviewed. Na 136. - Continue to monitor intermittently Anasarca - Lasix 20 mg daily - Improving Chronic Respiratory Failure Chronic obstructive pulmonary disease Multilobar pneumonia - Pulmonology following, appreciate input. - Continue tracheostomy with supplemental oxygen. Maintain O2 sat greater than 92% - Tobramycin completed, course ended on 01/20/17. - Continue duo nebs when necessary - Wean off tracheostomy. Levsin PRN for secretions. - Monitor Respiratory status Dysphagia Hypoalbuminemia - PEG placed. Continue TF. - Glucerna 1.5 at 60 ML's an hour - Continue Corby as ordered. Sacral/Coccyx wound - Continue specialty bed. - Wound care following - Apply nickel thick Santyl to necrotic tissue in wound bed prior to packing with Quarter strength Dakins moist to dry gauze dressing.This should be covered with ABD and secured with tape. - Log roll q2h GI Prophylaxis: Pepcid. DVT prophylaxis: SCDs. Coumadin. Discharge Planning D/c to SNF 05/13 Lenny Luz DO May 12, 2017 11:57
[2017-05-12] MEDS: ACETAMINOPHEN 325 MG TAB G-TUBE PRN (13:28)
--- NOTE | 2017-05-12 13:57 | HHI.HCPN ---
Reason for visit a. To assist with evaluation and management of symptoms including: encephalopathy, seizure, dyspnea, weakness b. To assist medical decision maker(s) with: better understanding of current medical conditions; weighing benefits/burdens of medical treatment options; making medical treatment decisions. . (Grecia Ernst) Subjective/Interval History Pt seen to follow up with family regarding goals as she has been approved for Medicaid, now has a payor source and discharge to rehabilitation is pending. Call placed to daughter Maria Del Carmen, and to call back. Per mattress spring encaser note, the daughter has been informed of plan to discharge patient 05/13 to [facility]. Patient seen during wound care visit for dressing change to coccyx wound. Eyes are open, she tracks to the left more consistently but will try to turn the head to the right with some stimulation to the right cheek and encouragement. Consistent right mouth twitching seen, concerning as patient has seizure disorder. Bilateral upper extremities with 4/5 strength in resisting arm extension. Bilateral lower extremities without spontaneous or purposeful movement. Patient consistently not responding to direction for any other purposeful movement. . Family/friend interactions Call placed to nadeem Joyce, voicemail left for call back. . (Grecia Ernst) Advance Directives Living Will: Never completed Health Care Surrogate: Never completed Durable Power of Asphalt Paving Foreman: Never completed (Grecia Ernst) Advance Directive Specifics Health Care Surrogate(s): No known written advance directives. Patient currently incapacitated to make her healthcare decisions. According to [place] statutes health care proxy decision-making falls to the majority of adult children. Patient has 3 children. . (Grecia Ernst) Objective Vital Signs Date Time Temp Pulse Resp B/P (MAP) Pulse Ox O2 Delivery O2 Flow Rate FiO2 05/12/17 12:00 99.0 95 18 108/55 (72) 99 05/12/17 08:00 100.0 103 18 115/58 (77) 97 05/12/17 04:00 97.3 99 19 134/62 (86) 100 05/12/17 00:00 98.8 89 17 127/61 (83) 100 05/11/17 20:00 98.3 83 18 117/63 (81) 100 05/11/17 19:15 Trach Collar 28 T-Piece 05/11/17 17:41 98 T-piece 6.00 28 05/11/17 16:00 98.0 82 18 126/59 (81) 98 Intake & Output 05/12/17 05/12/17 07:00 19:00 Intake Total 1861 ml Balance 1861 ml Tube Feeding 1261 ml Other 600 ml . Physical Exam CONSTITUTIONAL/GENERAL: Eyes open, tracks examiner, no apparent distress TUBES/LINES/DRAINS: Peripheral IV RT upper extremity, Tracheostomy, PEG, Brown, SCDs, multipodus boots, splint rt arm CARDIOVASCULAR: regular rate and rhythm, no murmur. RESPIRATORY/CHEST: trach midline. Symmetric, unlabored respirations via trach to 28% FIO2 on T piece . Clear to auscultation. GASTROINTESTINAL: Abdomen soft, nondistended. Bowel sounds active. +PEG LUQ site asymptomatic, +TF infusing GENITOURINARY: Without palpable bladder distension. Brown catheter in place- clear yellow urine. NEUROLOGICAL: Eyes open, tracks examiner. Does not follow commands. 4/5 upper arm extremity strength to resistance. PSYCHIATRIC: Calm, no agitation seen. . (Grecia Ernst) Diagnostic Tests Laboratory Laboratory Tests Test 05/10/17 09:01 05/10/17 09:05 05/11/17 08:00 05/12/17 08:13 Blood Urea Nitrogen 16 MG/DL (7-18) Creatinine 0.38 MG/DL (0.50-1.00) Random Glucose 106 MG/DL (74-106) Calcium Level 9.2 MG/DL (8.5-10.1) Sodium Level 137 MEQ/L (136-145) Potassium Level 4.2 MEQ/L (3.5-5.1) Chloride Level 100 MEQ/L (98-107) Carbon Dioxide Level 29.3 MEQ/L (21.0-32.0) Anion Gap 8 MEQ/L (5-15) Estimat Glomerular Filtration Rate 170 ML/MIN (>89) Prothrombin Time 27.4 SEC (9.8-11.6) 33.2 SEC (9.8-11.6) 23.0 SEC (9.8-11.6) Prothromb Time International Ratio 2.4 RATIO 2.9 RATIO 2.0 RATIO . (Grecia Ernst) Result Diagram: 05/10/17 0901 Procedures 11/22 - PEG placement 11/30 - tracheostomy . (Grecia Ernst) Assessment and Plan Disease Oriented Problem List: (1) CVA (cerebral vascular accident) (2) Moyamoya disease (3) Seizure Comment: On Keppra . (4) Generalized weakness Symptom Scale: (1) Seizure 0-10 Scale: Unable to quantify (2) Generalized weakness 0-10 Scale: Unable to quantify (3) Dyspnea 0-10 Scale: Unable to quantify (4) Constipation 0-10 Scale: Unable to quantify (5) Encephalopathy 0-10 Scale: Unable to quantify Pertinent Non-Medical Issues Psychosocial: Single. Has 2 daughters and one son. Spiritual: unknown. Legal: Patient is incapacitated to make healthcare decisions. No known written advanced directives. According to [place] Statutes, health care proxy decision making falls to majority of adult children. Patient has 2 daughters (Marcelo Joyce) and 1 son (Dwight). Ethical issues impacting care: No known concerns at this time. . Important Contacts * Maria Del Carmen Rivas, daughter: [phone] * Marcelo Rivas, daughter: [phone] * Dwight Rivas, son: [phone] . Prognosis MRI/EEG reviewed by neurology, prognosis felt to be poor, infarct noted to be huge. Repeat MRI done 12/[address] Flores and he feels that she may regain some ability to speak but does note that the infarct was a huge right frontal CVA and increased size of the left frontal CVA. EEG showed some left "sharps" and his recommendation was to continue Keppra. Prognosis remains poor for meaningful recovery in light of the most current studies, current clinical assessment. Code Status: Full Code Plan * Patient is incapacitated to make healthcare decisions. No known written advanced directives. According to [place] Statutes, health care proxy decision making falls to majority of adult children. Patient has 2 daughters (Marcelo Joyce) and 1 son (Dwight). * CODE STATUSFULL CODE * GOALS: Goals have been established as aggressive. There have been differing opinions between the 2 daughters regarding DNR status ; they would continue full CODE STATUS until the family could reach a consensus. Palliative available as needed if there is a change in condition/to revisit goals with family as needed. seen 03/21/17 : Spoke w dtr Maria Del Carmen, update provided , goals remain aggressive. SYMPTOMS: * Seizure: hx seizures 2/2 CVA; on Keppra. Right mouth twitching seen today, seizure precautions intact. * Weakness: due to prolonged hospital course, bilateral infarcts. Continues to receive PT/OT for passive range of motion. * Dyspnea: Off sedation. tolerating T Piece. She remains at risk for complications due to severe mitral regurgitation, tracheostomy and immobility. * Encephalopathy: Alert w/tracking. not following commands. Dr. Flores following PRN. No recent EEG or imaging studies. Plan for transfer to [facility] in a.m. Palliative care has established goals with pt family. Palliative available PRN for any changes in condition for clarification of goals of treatment / weighing benefits/burdens of treatment options, or for any symptoms of palliative concern. . (Grecia Ernst) Attestation To help prompt me to consider important information that might be impacting today's encounter and assessment, information from prior notes written by myself or my colleagues may have been "brought forward" into today's note. My signature on this note, however, is an attestation that I personally performed the exam, history, and/or decision-making noted today, and, unless otherwise indicated, the interactions with patient, family, and staff as well as the review of records all occurred today. I also attest that the listed assessment and stated plan reflect my best clinical judgment today based on the combination of historical information, prior notes, and today's exam/ interactions. When time spent is documented, it refers only to time spent today by the signer, or if indicated, combined time spent today by collaborating physician/nurse practitioner. (Grecia Ernst) Collaborating MD Comments Chart reviewed. Case discussed with palliative care MANAGER CARGO. Above MANAGER CARGO note reviewed and I concur. . (Stephen Lombardo MD) Grecia Ernst May 12, 2017 13:57 Stephen Lombardo MD May 15, 2017 18:27
--- NOTE | 2017-05-12 16:45 | HHI.PR ---
Subjective Remarks 66 YOWF with Rf, s/p trach H/O CVA,Arango Arango disease. On trach collar Mod amount of trach secretions. no fever. Sleeping Objective Vital Signs Vital Signs Date Time Temp Pulse Resp B/P (MAP) Pulse Ox O2 Delivery O2 Flow Rate FiO2 05/12/17 14:07 99 T-piece 28 05/12/17 12:00 99.0 95 18 108/55 (72) 99 05/12/17 09:00 100 T-Piece 6.00 28 05/12/17 08:00 100.0 103 18 115/58 (77) 97 05/12/17 04:00 97.3 99 19 134/62 (86) 100 05/12/17 00:00 98.8 89 17 127/61 (83) 100 05/11/17 20:00 98.3 83 18 117/63 (81) 100 05/11/17 19:15 Trach Collar 28 T-Piece 05/11/17 17:41 98 T-piece 6.00 28 I/O 05/11/17 05/11/17 05/11/17 05/12/17 05/12/17 05/12/17 07:00 15:00 23:00 07:00 15:00 23:00 Intake Total 968 ml 0 ml 1861 ml Output Total 400 ml 700 ml Balance 568 ml -700 ml 1861 ml Intake Oral 0 ml Tube Feeding 968 ml 1261 ml Other 600 ml Output Urine Total 400 ml 700 ml # Bowel Movements 1 Result Diagram: 05/10/17 09 Objective Remarks GENERAL: MBMN WF, on Trach collar SKIN: Warm and dry. HEAD: Normocephalic. EYES: No scleral icterus. No injection or drainage. NECK: Supple, trachea midline. No JVD or lymphadenopathy. has trach CARDIOVASCULAR: Regular rate and rhythm without murmurs, gallops, or rubs. RESPIRATORY: Breath sounds equal bilaterally. No accessory muscle use. GASTROINTESTINAL: Abdomen soft, non-tender, nondistended. has PEG MUSCULOSKELETAL: No cyanosis, or edema. BACK: Nontender without obvious deformity. No CVA tenderness. A/P Assessment and Plan RF, S/P Trach CVA Arango arango disease CAD COPD SZ disorder PLAN: Aerosol nebs Cont trach collar supplement 02, keep sat >90%. SHAWN CHAVIS RN. Vernon Marx MD May 12, 2017 16:45
[2017-05-12] MEDS: WARFARIN SOD 10 MG TAB PO SCH (17:46)
[2017-05-13] VITALS: BP 114/53; PULSE 85; RESP 20; TEMP 99; O2SAT 100
[2017-05-13] MEDS: CHLORHEXIDINE GLUCONATE 2 % 1 PACK (2 CLOTHS) TOP SCH (03:21)
[2017-05-13 04:00] VITALS: BP 109/53; PULSE 86; RESP 20; TEMP 98.6; O2SAT 100
[2017-05-13 04:29] VITALS: PULSE 78
[2017-05-13] MEDS: METOPROLOL TARTRATE 25 MG TAB G-TUBE SCH ×2 (05:46→14:21)
[2017-05-13] MEDS: HYOSCYAMINE SOLN 0.125 MG/ML 15 ML BTL G-TUBE SCH ×2 (05:46→12:00)
[2017-05-13] MEDS: FREE WATER G-TUBE SCH ×2 (05:47→14:00)
[2017-05-13 08:00] VITALS: BP 110/56; PULSE 92; RESP 18; TEMP 98.5; O2SAT 99
[2017-05-13] MEDS: CHLORHEXIDINE 0.12% (ORAL KIT) 15 ML CUP MT SCH (08:00)
[2017-05-13 08:58] VITALS: O2SAT 97
[2017-05-13] MEDS: POTASSIUM CHLORIDE 20 MEQ PWD PACKET PEG SCH (09:00)
[2017-05-13] MEDS: SODIUM CHLORIDE 0.9% FLUSH 10 ML FLUSH IV FLUSH SCH (09:00)
[2017-05-13] MEDS: SODIUM HYPOCHLORITE 0.125% 500 ML BTL TOPICAL SCH (09:00)
[2017-05-13] MEDS: COLLAGENASE OINT 30 GM TUBE TOPICAL SCH (09:00)
[2017-05-13] MEDS: JUVEN POWDER 1 PACK G-TUBE SCH (09:00)
[2017-05-13] MEDS: POVIDONE IODINE 10% OINT 30 GM TUBE TOPICAL SCH (09:00)
--- NOTE | 2017-05-13 09:14 | HHI.DS ---
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 Status: Acute (2) Seizure ICD Code: R56.9 - Unspecified convulsions Status: Acute (3) CVA (cerebral vascular accident) ICD Code: I63.9 - Cerebral infarction, unspecified Status: Acute (4) Respiratory failure, acute ICD Code: J96.00 - Acute respiratory failure, unspecified whether with hypoxia or hypercapnia Status: Acute (5) COPD (chronic obstructive pulmonary disease) ICD Code: J44.9 - Chronic obstructive pulmonary disease, unspecified Status: Chronic (6) Acute hypernatremia ICD Code: E87.0 - Hyperosmolality and hypernatremia Status: Resolved (7) Microcytic anemia ICD Code: D50.9 - Iron deficiency anemia, unspecified Procedures 11/24/2016 Percutaneous tracheostomy. 11/18/2016 Moderate encephalopathy with suggestion of left temporal region cortical irritability. No active seizures. Clinical correlation. Echocardiogram Severe dilated left ventricle. Wall thickness is normal. The left ventricular systolic function is moderately reduced with an estimated ejection fraction in the range of 35-40%. Doppler parameters are consistent with a restrictive left ventricular filling pattern indicative of decreased left ventricular diastolic compliance and increase left atrial pressure (grade 3 diastolic dysfunction). There is severe tricuspid regurgitation. There is severe pulmonary hypertension present ( > 70 mmHg). Severe mitral valve regurgitation. Brief History - From Admission 65-year-old female with past medical history of stroke for which she at one point was on warfarin but had been discontinued. She was was admitted to [facility] emergency department 11/04/16 with difficulty getting her thoughts together. She was found to have multifocal nonhemorrhagic infarcts in left frontal and parietal regions, right frontal lobe and history of moyamoya disease. She was initially awake and following commands with weakness of RLE and some aphasia. She was transferred to [facility] where he had an cerebral angiogram consistent with moyamoya. There were plans to perform extracranial/intracranial bypass. However she had a seizure and ended up being intubated for status either 11/09 or 4/.. She was found to have a new right frontal infarct area and she was started on Dilantin and Keppra and it was felt that she would not be a candidate for intervention. She has been intubated 9-10 days and apparently she has been tolerating C Pap trials to some extent but mental status prevents extubation. Treating team was discussing with family trach/PEG. Apparently family requested transfer back to [place] because they live locally here and wanted her closer to home. Apparently she had been sedated initially with propofol but then was on Precedex from 11/12-11/14. Appears she has been off all continuous sedation since 11/14. CBC/BMP: 05/10/17 0901 Significant Findings Laboratory Tests Test 05/11/17 08:00 05/12/17 08:13 Prothrombin Time 33.2 SEC (9.8-11.6) 23.0 SEC (9.8-11.6) Imaging Last Impressions Chest X-Ray 05/03/17 0000 Signed Impressions: Service Date/Time: Wednesday, May 03, 2017 18:00 - CONCLUSION: Similar findings to the March comparison with interstitial opacities and borderline cardiomegaly with a tracheostomy tube. No acute lobar consolidation demonstrated. Nghia Nuno MD Abdomen X-Ray 02/11/17 0000 Signed Impressions: Service Date/Time: Saturday, February 11, 2017 17:52 - CONCLUSION: Minimal colonic distention. Kenneth Frost MD FACR Catheter Change 02/10/17 0000 Signed Impressions: Service Date/Time: February 13:47 - CONCLUSION: Uncomplicated fluoroscopic guided gastrostomy tube replacement. Positioning confirmed. The tube can be used immediately. Nghia Pacheco MD Lower Extremity Ultrasound 02/01/17 0000 Signed Impressions: Service Date/Time: Wednesday, February 01, 2017 13:23 - CONCLUSION: Normal examination. 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 Sami Mccarthy MD PE at Discharge GENERAL: Obese female patient lying in bed in NAD, t-collar in place. SKIN: Warm and dry. HEENT: Normocephalic. No scleral icterus. No injection or drainage. No nasal bleeding or discharge. Mucous membranes pink and moist. NECK: Supple. Tracheostomy in place. CARDIOVASCULAR: Regular rate and rhythm. S1, S2 noted. No murmur appreciated. RESPIRATORY: No accessory muscle use. Coarse breath sounds noted. No wheezing. GASTROINTESTINAL: Abdomen soft, non-tender, nondistended. Normoactive bowel sounds x4. PEG in place. MUSCULOSKELETAL: No obvious deformities. Extremities without clubbing, cyanosis. Edematous extremities trace bilaterally. Anasarca. Bilateral hallux, trace edema - improving NEUROLOGICAL: Does not follow any commands. No spontaneous movement in upper or lower extremities. PSYCH: Flat affect. Pt update on day of discharge The patient was resting in bed comfortably. Hospital Course Encephalopathy/ Acute respiratory failure/ Seizure disorder/ Failure to thrive She was was admitted to [facility] emergency department 11/04/16 with difficulty getting her thoughts together. She was found to have multifocal ischemic infarcts in the left frontal and parietal regions, right frontal lobe and she has a history of moyamoya disease. She was initially awake and following commands with weakness of her RLE and some aphasia. She was transferred to the [facility] where she had a cerebral angiogram consistent with moyamoya. There were plans to perform extracranial/intracranial bypass. However, she had a seizure and ended up being intubated for status epilepticus on 11/2016. She was found to have a new right frontal infarct area and she was started on Dilantin and Keppra and it was felt that she would not be a candidate for intervention. She was intubated. Treating team was discussing with family trach/PEG. Family requested transfer back to [place] because they live locally here and wanted her closer to home. Patient remained under critical care medicine care until 12/24/2016. She was continued on Tegretol 200 mg q12h, Keppra 1000 mg twice a day. She was followed by neurology. Aspirin was changed to Coumadin. She was continued on bromocriptine. She was placed on seizure precautions. Pulmonology followed the pt. She is s/p tracheostomy and PEG. She was continued on tracheostomy with supplemental oxygen. Tobramycin course ended on 01/20/17. She continued Duonebs when necessary. She received Levsin PRN secretions. She was continued on tube feeds along with Corby. She worked with PT/ OT/ ST. 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 Cardiology was consulted. She was continued on Lasix 20mg daily and Entresto. Atrial Fibrillation Cardiology was consulted. She was started on Lopressor and Coumadin. INR is therapeutic. Sacral/Coccyx wound She was placed on a specialty bed. Wound care was consulted and recommended to apply nickel thick Santyl to necrotic tissue in wound bed prior to packing with quarter strength Dakins solution on moist to dry gauze dressing; This should be covered with ABD and secured with tape. She was turned frequently. Viridans strep bacteremia Status post IV Rocephin course which ended 04/05/17 per infectious disease. Bilateral Hallux ingrown toenail Podiatry was consulted. Nails were manually debrided. She received triple antibiotic for 7-10 days. Pt Condition on Discharge: Stable Discharge Disposition: Discharge to SNF Discharge Time: > 30 minutes Discharge Instructions DIET: Follow Instructions for: On Tube Feeding Additional Diet Instructions: Jevity 1.5 sarika goal of 60 Activities you can perform: Weight Bearing as So Follow up Referrals: Neurology - 1 Week PCP Follow-up - 1 Week Pulmonology - 1 Week New Orders: COMP MET PROF (CMP) - 2-3 Days PT/INR - 05/14/17 New Medications: Ascorbic Acid (C 500/Constance Hips) 500 Mg Tab 500 MG PEG BID for Supplement, #30 TAB Atorvastatin (Atorvastatin) 40 Mg Tab 40 MG G-TUBE DAILY for Cholesterol Management, #30 TAB Bromocriptine (Bromocriptine) 2.5 Mg Tab 2.5 MG OG-TUBE Q12HR for Agitation, #30 TAB Carbamazepine (Carbamazepine) 200 Mg/10 Ml Oral.susp 200 MG PEG Q12HR for Seizure Control, #1 BOTTLE Collagenase (Santyl) 250 Unit/Gram Oin 1 APPLIC TOPICAL DAILY for Wound, #1 TUBE Docusate Sodium Liq (Docusate Sodium Liq) 50 Mg/5 Ml Liq 100 MG PO Q12HR for constipation, #60 ML Famotidine (Famotidine) 20 Mg Tab 20 MG PEG BID for GERD, #60 TAB Ferrous Sulfate Liq (Ferrous Sulfate Liq) 300 Mg/5 Ml Soln 300 MG PEG BID for Anemia for 30 Days, #1 BOTTLE Folic Acid (Folic Acid) 1 Mg Tablet 1 MG PEG DAILY for Supplement, #30 TAB Furosemide (Furosemide) 20 Mg Tab 20 MG PEG DAILY for Swelling, #30 TAB Hyoscyamine Liq Drops (Hyosyne Liq Drops) 0.125 Mg/Ml Soln 0.125 MG G-TUBE Q6H for Secretions for 30 Days, #1 BOTTLE Levetiracetam Liq (Keppra Liq) 500 Mg/5 Ml Soln 1000 MG PEG Q12HR for Seizure Control, #1 BOTTLE Metoprolol Tartrate (Metoprolol Tartrate) 25 Mg Tab 50 MG G-TUBE Q6HR for Heart rate, #90 TAB Nutritional Supplements (Corby Nutrivigor) 7 Gram-7 Gram-1.5 Gram Pow 1 PACK G-TUBE BID for Nutrition, #30 PKT Potassium Chloride Powder (Potassium Chloride Powder) 20 Meq Powderpack 20 MEQ PEG DAILY for Lasix, #30 PKG Sacubitril-Valsartan (Entresto) 24-26 Mg Tab 1 TAB PEG BID for Heart, #30 TAB Sodium Hypochlorite Topical (Dakins Solution Quarter Strength Topical) 0.125% Soln 0 ML TOPICAL DAILY for Wound, #1 BOTTLE Warfarin (Coumadin) 10 Mg Tab 10 MG PO DAILY@1600 for Blood thinner, #30 TAB Water For Injection, Sterile (Sterile Water For Injecti) 1 Inj Inj 100 ML G-TUBE Q8HR for Tube feeds, #60 INJECTION Continued Medications: Albuterol 18 GM Inh (Ventolin Hfa 18 GM Inh) 90 Mcg/Act Aer 1 PUFF INH Q4H PRN for SHORTNESS OF BREATH, #1 INHALER 3 Refills Albuterol Neb (Albuterol Neb) 2.5 Mg/3 Ml Neb 2.5 MG NEB Q4HR NEB for Breathing Treatment, #60 NEBULE 3 Refills While awake Fluticasone-Salmeterol Inh (Advair Diskus Inh) 250-50 Mcg/Blist Aer 1 PUFF INH BID, #1 INHALER 3 Refills Rinse mouth after use. Lenny Luz DO May 13, 2017 09:13
[2017-05-13] MEDS ORDERED: COUM10TA PO (09:25)
[2017-05-13] MEDS ORDERED: WATE1INJ2 G-TUBE (09:25)
[2017-05-13] MEDS ORDERED: FURO20TA PEG (09:25)
[2017-05-13] MEDS ORDERED: LEVE500S PEG (09:25)
[2017-05-13] MEDS ORDERED: HYOS0.1231 G-TUBE (09:25)
[2017-05-13] MEDS ORDERED: DAKI0.12 TOPICAL (09:25)
[2017-05-13] MEDS ORDERED: COLL30T TOPICAL (09:25)
[2017-05-13] MEDS ORDERED: [UNRECOGNIZED DRUG - CODE] PEG (09:25)
[2017-05-13] MEDS ORDERED: ATOR40TA16 G-TUBE (09:25)
[2017-05-13] MEDS ORDERED: FAMO20TA2 PEG (09:25)
[2017-05-13] MEDS ORDERED: VITA500T2 PEG (09:25)
[2017-05-13] MEDS ORDERED: METO25TA3 G-TUBE (09:25)
[2017-05-13] MEDS ORDERED: FERR300S PEG (09:25)
[2017-05-13] MEDS ORDERED: FOLI1TAB6 PEG (09:25)
[2017-05-13] MEDS ORDERED: JUVEPOW3 G-TUBE (09:25)
[2017-05-13] MEDS ORDERED: POTA10PO PEG (09:25)
[2017-05-13] MEDS ORDERED: SACU1TAB PEG (09:25)
--- NOTE | 2017-05-13 09:41 | HHI.DCPOC ---
Discharge Care Plan Diagnosis: (1) Atrial fibrillation (2) COPD (chronic obstructive pulmonary disease) (3) Encephalopathy (4) Dyspnea (5) Generalized weakness (6) CVA (cerebral vascular accident) (7) Respiratory failure, acute (8) Seizure (9) Moyamoya disease Goals to Promote Your Health * To prevent worsening of your condition and complications * To maintain your health at the optimal level Directions to Meet Your Goals Take your medications as prescribed Follow your dietary instruction Follow activity as directed Keep your appointments as scheduled Take your immunizations and boosters as scheduled If your symptoms worsen call your PCP, if no PCP go to Urgent Care Center or Emergency Room Smoking is Dangerous to Your Health. Avoid second hand smoke Call the 24-hour hour crisis hotline for domestic abuse at Lenny Luz DO May 13, 2017 09:41
[2017-05-13] MEDS: levETIRAcetam 500 MG/5 ML UDC PEG SCH (10:36)
[2017-05-13] MEDS: BROMOCRIPTINE MESYLATE 2.5 MG TAB PEG SCH (10:36)
[2017-05-13] MEDS: FERROUS SULFATE 300 MG /5ML UDC PEG SCH (10:36)
[2017-05-13] MEDS: carBAMazepine SUSP 200 MG/10 ML UDC PEG SCH (10:36)
[2017-05-13] MEDS: ATORVASTATIN 40 MG TAB G-TUBE SCH (10:36)
[2017-05-13] MEDS: SENNOSIDES SYRUP 8.8 MG/5 ML CUP G-TUBE SCH (10:37)
[2017-05-13] MEDS: FUROSEMIDE 20 MG TAB PEG SCH (10:37)
[2017-05-13] MEDS: FAMOTIDINE 20 MG TAB PEG SCH (10:37)
[2017-05-13] MEDS: ASCORBIC ACID 500 MG TAB PEG SCH (10:37)
[2017-05-13] MEDS: FOLIC ACID 1 MG TAB PEG SCH (10:37)
[2017-05-13] MEDS: SACUBITRIL/VALSARTAN 24 MG-26 MG TAB PEG SCH (10:37)
[2017-05-13 12:00] VITALS: BP 103/51; PULSE 94; RESP 18; TEMP 98.4; O2SAT 100
[2017-05-13] MEDS: ACETAMINOPHEN/HYDROcodone 325 MG/5 MG TAB G-TUBE PRN (14:21)
[2017-05-13 14:27] LABS: INTERNATIONAL NORMALIZED RATIO 1.6 RATIO; PROTHROMBIN TIME - PATIENT 17.6 SEC (9.8-11.6)
== END 2017-05-13 14:50 | DRG 4 ==
LOC: MERGE 22:55 → HIMN 22:55 → N05A 01-17 19:14 → HCIS 03-21 02:50 → N04A 03-24 17:45
PROVIDERS: ADMIT Hospitalist; ATTEND Hospitalist
PROC: 5A1955Z Respiratory Ventilation, Greater than 96 Consecutive Hours (ICD-10-PCS; 2016-11-17)
PROC: 0DH63UZ Insertion of Feeding Device into Stomach, Percutaneous Approach (ICD-10-PCS; 2016-11-22)
PROC: 0B113F4 Bypass Trachea to Cutaneous with Tracheostomy Device, Percutaneous Approach (ICD-10-PCS; principal; 2016-11-24)
PROC: 0BJ08ZZ Inspection of Tracheobronchial Tree, Via Natural or Artificial Opening Endoscopic (ICD-10-PCS; 2016-11-30)
PROC: 0HBRXZZ Excision of Toe Nail, External Approach (ICD-10-PCS; 2017-05-05)
PROC: 0HBRXZZ Excision of Toe Nail, External Approach (ICD-10-PCS; 2017-05-05)
PROC: 0HBRXZZ Excision of Toe Nail, External Approach (ICD-10-PCS; 2017-05-05)
PROC: 0HBRXZZ Excision of Toe Nail, External Approach (ICD-10-PCS; 2017-05-05)
PROC: 0HBRXZZ Excision of Toe Nail, External Approach (ICD-10-PCS; 2017-05-05)
DX: I63.9 Cerebral infarction, unspecified (principal); I50.41 Acute combined systolic (congestive) and diastolic (congestive) heart failure; G93.40 Encephalopathy, unspecified; J15.0 Pneumonia due to Klebsiella pneumoniae; J15.211 Pneumonia due to Methicillin susceptible Staphylococcus aureus; A41.9 Sepsis, unspecified organism; J96.21 Acute and chronic respiratory failure with hypoxia; E72.20 Disorder of urea cycle metabolism, unspecified; I13.0 Hypertensive heart and chronic kidney disease with heart failure and stage 1 through stage 4 chronic kidney disease, or unspecified chronic kidney disease; I67.5 Moyamoya disease; E87.0 Hyperosmolality and hypernatremia; J44.0 Chronic obstructive pulmonary disease with (acute) lower respiratory infection; I47.1 Supraventricular tachycardia; Z99.11 Dependence on respirator [ventilator] status; E87.1 Hypo-osmolality and hyponatremia; B37.0 Candidal stomatitis; N39.0 Urinary tract infection, site not specified; L89.154 Pressure ulcer of sacral region, stage 4; R13.10 Dysphagia, unspecified; J44.9 Chronic obstructive pulmonary disease, unspecified; R47.01 Aphasia; I25.10 Atherosclerotic heart disease of native coronary artery without angina pectoris; N18.9 Chronic kidney disease, unspecified; G40.901 Epilepsy, unspecified, not intractable, with status epilepticus; I65.21 Occlusion and stenosis of right carotid artery; I25.2 Old myocardial infarction; E78.5 Hyperlipidemia, unspecified; Z51.5 Encounter for palliative care; K44.9 Diaphragmatic hernia without obstruction or gangrene; Z62.810 Personal history of physical and sexual abuse in childhood; Z23 Encounter for immunization; Z86.73 Personal history of transient ischemic attack (TIA), and cerebral infarction without residual deficits; I48.91 Unspecified atrial fibrillation; K59.00 Constipation, unspecified; L60.0 Ingrowing nail; I08.1 Rheumatic disorders of both mitral and tricuspid valves; I27.20 Pulmonary hypertension, unspecified; K80.20 Calculus of gallbladder without cholecystitis without obstruction; R62.7 Adult failure to thrive; E87.6 Hypokalemia; R19.7 Diarrhea, unspecified; E11.22 Type 2 diabetes mellitus with diabetic chronic kidney disease; E11.65 Type 2 diabetes mellitus with hyperglycemia; E88.09 Other disorders of plasma-protein metabolism, not elsewhere classified; E87.5 Hyperkalemia; D50.9 Iron deficiency anemia, unspecified
CPT/HCPCS: 36600; 49450; 70551; 71010; 74000; 76705; 76937; 80048; 80053; 80076; 80156; 80177; 80185; 80202; 81001; 82040; 82140; 82272; 82565; 82728; 82805; 82948; 83036; 83540; 83550; 83735; 83880; 83930; 83935; 84100; 84132; 84145; 84439; 84443; 84450; 84460; 85007; 85025; 85027; 85610; 85730; 86403; 87040; 87070; 87077; 87086; 87147; 87186; 87205; 87493; 87641; 90686; 93005; 93306; 93970; 94002; 94003; 94640; 94664; 94762; 95819; A7520; A7521; C9113; J0153; J0690; J0696; J0744; J1644; J1650; J1756; J1815; J1940; J1953; J2270; J2405; J2543; J3010; J3370; J3475; J3480; J7030; J7040; J7050; J7613; J7644; J7685; P9045; Q2038; Q9967

== ENCOUNTER 2017-05-22 04:42 | Inpatient (IN) | payer MEDICAID, OTHER ==
[2017-05-22] VITALS (9 sets, daily range): BP systolic 100–160; BP diastolic 54–82; PULSE 64–92; RESP 14–20; TEMP 96.2–98.1; O2SAT 94–100
[~2017-05-22] VITALS: Ht 167.6 cm; Wt 76.0 kg
[~2017-05-22 04:42] MED LIST changes: +ATOR40TA16 G-TUBE; +BROM2.5 OG-TUBE; +COLL30T TOPICAL; +COUM10TA PO; +DAKI0.12 TOPICAL; +DOCU100S PO; +FAMO20TA2 PEG; +FERR300S PEG; +FOLI1TAB6 PEG; +FURO20TA PEG; +HYOS0.1231 G-TUBE; +JUVEPOW3 G-TUBE; +LEVE500S PEG; +METO25TA3 G-TUBE; +POTA10PO PEG; +SACU1TAB PEG; +VITA500T2 PEG; +WATE1INJ2 G-TUBE; +[UNRECOGNIZED DRUG - CODE] PEG
[2017-05-22 05:22] LABS: BASOPHIL # 0.1 TH/MM3 (0-0.2); BASOPHIL % 1.2 % (0.0-2.0); EOSINOPHIL # 0.4 TH/MM3 (0-0.4); EOSINOPHIL % 5.1 % (0.0-4.0); HEMATOCRIT 32.3 % (35.0-46.0); HEMO FLAGS DIFF FINAL; LYMPHOCYTE # 2.4 TH/MM3 (1.0-4.8); MEAN CELL VOLUME 74.6 FL (80.0-100.0); MEAN CORPUSCULAR HEMOGLOBIN 23.2 PG (27.0-34.0); MEAN CORPUSCULAR HGB CONC 31.1 % (32.0-36.0); MONO % 7.8 % (0.0-8.0); NEUT % 57.9 % (16.0-70.0); PLATELET COUNT 627 TH/MM3 (150-450); RED BLOOD COUNT 4.33 MIL/MM3 (4.00-5.30); RED CELL DISTRIBUTION WIDTH 20.7 % (11.6-17.2); WHITE BLOOD COUNT 8.7 TH/MM3 (4.0-11.0)
[2017-05-22 05:26] LABS: APTT (PATIENT) 40.5 SEC (24.3-30.1); INTERNATIONAL NORMALIZED RATIO 1.3 RATIO; PROTHROMBIN TIME - PATIENT 15.1 SEC (9.8-11.6)
[2017-05-22 05:31] LABS: BACTERIA, URINE MANY /hpf; BLOOD, URINE MOD (NEG); CALCIUM OXALATE CRYSTALS,URINE OCC /hpf; GLUCOSE,URINE NEG (NEG); HYALINE CAST, URINE 4 /lpf (RARE); KETONE, URINE NEG (NEG); MUCUS URINE FEW /lpf (OCC); NITRITE,URINE NEG (NEG); PH, URINE 5.5 (5.0-8.5); SQUAMOUS EPITHELIAL CELL URINE <1 /hpf (0-5); URINE COLOR YELLOW (YELLW/STRAW)
[2017-05-22 05:48] LABS: BICARBONATE 28.3 MEQ/L (21.0-32.0); POTASSIUM 3.9 MEQ/L (3.5-5.1)
--- NOTE | 2017-05-22 05:55 | RADRPT ---
EXAM DATE/TIME: 05/22/2017 05:17 [facility] COMPARISON: MRI BRAIN W/O CONTRAST, November 18, 2016, 18:14. CT BRAIN W/O CONTRAST, November 06, 2016, 15:21. INDICATIONS : Trauma, fall. Laceration to forehead. RADIATION DOSE: 56.35 CTDIvol (mGy) MEDICAL HISTORY : Cardiovascular disease. Hypertension. Hepatitis C.CVA. SURGICAL HISTORY : None. ENCOUNTER: Initial ACUITY: 1 day PAIN SCALE: Non-responsive LOCATION: cranial TECHNIQUE: Multiple contiguous axial images were obtained of the head. Using automated exposure control and adj ustment of the mA and/or kV according to patient size, radiation dose was kept as low as reasonably a chievable to obtain optimal diagnostic quality images. DICOM format image data is available electro nically for review and comparison. FINDINGS: CEREBRUM: There are large areas of low density involving the frontal and parietal lobes bilaterally a more prom inent on the left likely from prior infarcts. There is some sulcal calcification in the regions of th e infarcts. The ventricles are distended especially the left lateral ventricle. The basal cisterns ar e open. The cortical sulci are widened. No acute areas of hemorrhage, mass effect or acute infarction are seen. POSTERIOR FOSSA: The cerebellum and brainstem are intact. The 4th ventricle is midline. The cerebellopontine angle i s unremarkable. EXTRACRANIAL: The visualized portion of the orbits is intact. SKULL: The calvaria is intact. No evidence of skull fracture. CONCLUSION: Large bilateral areas of prior infarction involving the frontal parietal lobes. An acute abnormality is not seen. Nghia Camacho MD on May 22, 2017 at 5:50 Board Certified Radiologist. This report was verified electronically.
--- NOTE | 2017-05-22 05:59 | RADRPT ---
EXAM DATE/TIME: 05/22/2017 05:17 [facility] COMPARISON: No previous studies available for comparison. INDICATIONS : Trauma, fall. Laceration to forehead. RADIATION DOSE: 35.42 CTDIvol (mGy) MEDICAL HISTORY : Hepatitis C. Cardiovascular disease Hypertension. SURGICAL HISTORY : None. ENCOUNTER: Initial ACUITY: 1 day PAIN SCALE: Non-responsive LOCATION: neck TECHNIQUE: Volumetric scanning of the cervical spine was performed. Multiplanar reconstructions in the sagittal, coronal and oblique axial planes were performed. Using automated exposure control and adjustment o f the mA and/or kV according to patient size, radiation dose was kept as low as reasonably achievable to obtain optimal diagnostic quality images. DICOM format image data is available electronically f or review and comparison. FINDINGS: VERTEBRAE: Normal vertebral body height. ALIGNMENT: No evidence of subluxation. C2-C3: The bony spinal canal is normal in size. No evidence of disc bulge or herniation. The neural forami na are bilaterally patent. There is bilateral facet hypertrophy. C3-C4: The bony spinal canal is normal in size. No evidence of disc bulge or herniation. The neural forami na are bilaterally patent. There is bilateral facet hypertrophy. C4-C5: The disc demonstrates decreased height. A significant impression on the thecal sac is not seen. There is mild facet and uncovertebral hypertrophy. There is mild narrowing of the right neural foramina. T he left neural foramen is patent. Anterior marginal osteophytes are seen. C5-C6: The disc demonstrates decreased height. There is minimal posterior osteophytic ridging. Anterior oste ophytic ridging is present. There is uncovertebral hypertrophy. There is narrowing of the right neura l foramen. The left neural foramina is patent. C6-C7: The bony spinal canal is normal in size. No evidence of disc bulge or herniation. The neural forami na are bilaterally patent. There is mild uncovertebral hypertrophy. C7-T1: The bony spinal canal is normal in size. No evidence of disc bulge or herniation. The neural forami na are bilaterally patent. CONCLUSION: Degenerative change. Nghia Camacho MD on May 22, 2017 at 5:53 Board Certified Radiologist. This report was verified electronically.
[2017-05-22 06:02] LABS: COMMENT (UR) CATH-CULTURE IND; CULTURE IF INDICATED CATH CULTURE IND
--- NOTE | 2017-05-22 06:17 | PD ---
HPI Chief Complaint: Fall Time Seen by Provider: 04:52 Travel History International Travel<30 days: No Contact w/Intl Traveler<30days: No Traveled to known affect area: No History of Present Illness HPI 66yo F with PMH of encephalopathy, COPD, HTN, epilepsy was sent in from [facility] for evaluation of head trauma. They said that pt was in the bed at 2am but when they reevaluated her at 4am, found her on the floor. Pt is s/p tracheostomy, peg tube and nonverbal, not immobile. Pt is at her normal baseline mental status. Unknown how she got on the floor. PFSH Past Medical History Hx Anticoagulant Therapy: Yes Arthritis: Yes (KNEES) Autoimmune Disease: No Anxiety: Yes Depression: Yes Heart Rhythm Problems: No Cancer: No Cardiovascular Problems: Yes High Cholesterol: No Chest Pain: No Congestive Heart Failure: No Cerebrovascular Accident: Yes Diabetes: No Patient Takes Glucophage: No Diminished Hearing: No Endocrine: No Gastrointestinal Disorders: No (PER PT, "BAD LIVER") Genitourinary: No Hepatitis: Yes (C) Hypertension: Yes Immune Disorder: No Musculoskeletal: No Neurologic: Yes (Recent CVA (November 2016)) Psychiatric: No Reproductive: No Respiratory: No Immunizations Current: Yes Myocardial Infarction: Yes (2015) Seizures: Yes (November 2016) Thyroid Disease: No Tetanus Vaccination: < 5 Years Influenza Vaccination: Yes ?: Not Menopausal: Yes : 3 Para: 3 Miscarriage: 0 : 0 Past Surgical History Other Surgery: No Social History Alcohol Use: Yes (HX) Tobacco Use: No Substance Use: No Allergies-Medications (Allergen,Severity, Reaction): Coded Allergies: No Known Allergies (Unverified , 05/09/17) Reported Meds & Prescriptions Reported Meds & Active Scripts Active Cephalexin Liq (Cephalexin Monohydrate) 250 Mg/5 Ml Susp 250 Mg PO Q6H 7 Days Sterile Water For Injecti (Water For Injection, Sterile) 1 Inj Inj 100 Ml G- TUBE Q8HR C 500/Constance Hips (Ascorbic Acid) 500 Mg Tab 500 Mg PEG BID Folic Acid 1 Mg Tablet 1 Mg PEG DAILY Santyl (Collagenase) 250 Unit/Gram Oin 1 Applic TOPICAL DAILY Famotidine 20 Mg Tab 20 Mg PEG BID Furosemide 20 Mg Tab 20 Mg PEG DAILY Corby Nutrivigor (Nutritional Supplements) 7 Gram-7 Gram-1.5 Gram Pow 1 Pack G- TUBE BID Potassium Chloride Powder (Potassium Chloride) 20 Meq Powderpack 20 Meq PEG DAILY Dakins Solution Quarter Strength Topical (Sodium Hypochlorite Topical) 0.125% Soln 0 Ml TOPICAL DAILY Keppra Liq (Levetiracetam) 500 Mg/5 Ml Soln 1,000 Mg PEG Q12HR Carbamazepine 200 Mg/10 Ml Oral.susp 200 Mg PEG Q12HR Entresto (Sacubitril-Valsartan) 24-26 Mg Tab 1 Tab PEG BID Metoprolol Tartrate 25 Mg Tab 50 Mg G-TUBE Q6HR Atorvastatin (Atorvastatin Calcium) 40 Mg Tab 40 Mg G-TUBE DAILY Coumadin (Warfarin) 10 Mg Tab 10 Mg PO DAILY@1600 Ferrous Sulfate Liq (Ferrous Sulfate) 300 Mg/5 Ml Soln 300 Mg PEG BID 30 Days Hyosyne Liq Drops (Hyoscyamine Sulfate) 0.125 Mg/Ml Soln 0.125 Mg G-TUBE Q6H 30 Days Docusate Sodium Liq (Docusate Sodium) 50 Mg/5 Ml Liq 100 Mg PO Q12HR Bromocriptine (Bromocriptine Mesylate) 2.5 Mg Tab 2.5 Mg OG-TUBE Q12HR Advair Diskus Inh (Fluticasone-Salmeterol Inh) 250-50 Mcg/Blist Aer 1 Puff INH BID Rinse mouth after use. Albuterol Neb (Albuterol Sulfate) 2.5 Mg/3 Ml Neb 2.5 Mg NEB Q4HR NEB While awake Ventolin Hfa 18 GM Inh (Albuterol Sulfate) 90 Mcg/Act Aer 1 Puff INH Q4H PRN Review of Systems Except as stated in HPI: all other systems reviewed are Neg Physical Exam Narrative GENERAL: 66yo F not in distress. SKIN: Focused skin assessment warm/dry. HEAD: +3cm abrasion in mid forehead. EYES: Pupils equal and round. No scleral icterus. No injection or drainage. ENT: No nasal bleeding or discharge. Mucous membranes pink and moist. NECK: Trachea midline. No JVD. CARDIOVASCULAR: Regular rate and rhythm. No murmur appreciated. RESPIRATORY: No accessory muscle use. Clear to auscultation. Breath sounds equal bilaterally. GASTROINTESTINAL: Abdomen soft, non-tender, nondistended. G-tube in place. BACK: Large stage 4 decubitous ulcer with no dressing. MUSCULOSKELETAL: No obvious deformities. No clubbing. No cyanosis. No edema. NEUROLOGICAL:Opens eyes. Nonverbal. Does not follow commands. Data Data Last Documented VS Vital Signs Date Time Temp Pulse Resp B/P (MAP) Pulse Ox O2 Delivery O2 Flow Rate FiO2 05/22/17 08:10 76 14 132/69 (90) 94 Trach Collar 05/22/17 08:00 5.00 21 05/22/17 04:[address] Brain W/O Iv Contrast(Rout) (05/22/17 ) Ct Cerv Spine W/O Contrast (05/22/17 ) Complete Blood Count With Diff (05/22/17 04:52) Basic Metabolic Panel (Bmp) (05/22/17 04:52) Prothrombin Time / Inr (Pt) (05/22/17 04:52) Act Partial Throm Time (Ptt) (05/22/17 04:52) Electrocardiogram (05/22/17 ) Urinalysis - C+S If Indicated (05/22/17 04:52) Urine Culture (05/22/17 05:05) Ed Discharge Order (05/22/17 07:23) Ceftriaxone Inj (Rocephin Inj) (05/22/17 07:45) Comprehensive Metabolic Panel (05/23/17 06:00) Free Thyroxine (T4) (05/23/17 06:00) Hemoglobin (Hgb) A1c (05/23/17 06:00) Magnesium (Mg) (05/23/17 06:00) Phosphorus (Po4) (05/23/17 06:00) Thyroid Stimulating Hormone (05/23/17 06:00) Complete Blood Count With Diff (05/23/17 06:00) Bedside Glucose JESSI.CSUGAR (05/22/17 08:59) Blood Glucose Goal (Criteria) (05/22/17 08:59) Hypoglycemia 70 Mg/Dl Or < (05/22/17 08:59) Notify Dr: Other (05/22/17 08:59) Dextrose 50% In Laura (Vial) Inj (D50w (Vi (05/22/17 09:00) Glucagon Inj (Glucagon Inj) (05/22/17 09:00) Dietary (Dietitian) Consult (05/22/17 ) Case Management Consult (05/22/17 ) Insulin Aspart Supplemtl Scale (Novolog (05/22/17 12:00) Admit To Inpatient (05/22/17 ) Vital Signs (Adult) Q4H (05/22/17 09:00) Neuro Checks Q4H (05/22/17 09:00) Activity Bed Rest (05/22/17 09:00) [employer] / Telemetry .CONTINUOUS (05/22/17 09:00) Intake + Output JESSI.QSHIFT (05/22/17 09:00) Sodium Chlor 0.9% 1000 Ml Inj (Ns 1000 M (05/22/17 09:00) Sodium Chloride 0.9% Flush (Ns Flush) (05/22/17 09:00) Sodium Chloride 0.9% Flush (Ns Flush) (05/22/17 09:00) Acetaminophen (Tylenol) (05/22/17 09:00) Ondansetron Inj (Zofran Inj) (05/22/17 09:00) Prochlorperazine Supp (Compazine Supp) (05/22/17 09:00) Blood Culture (05/22/17 09:00) Pt Request For Service (05/22/17 09:00) Ot Request For Service (05/22/17 09:00) Case Management Consult (05/22/17 09:00) Consult Wound / Ostomy Nurse (05/22/17 09:00) Scd Bilateral/Knee High JESSI.BID (05/22/17 09:00) Madhav Bilateral/Knee High JESSI.QSHIFT (05/22/17 09:15) Acetaminophen (Tylenol) (05/22/17 09:00) Oxycodone-Acetamin 5-325 Mg (Percocet (05/22/17 09:00) Oxycodone-Acetamin 10-325 Mg (Percocet 1 (05/22/17 09:00) Morphine Inj (Morphine Inj) (05/22/17 09:00) Naloxone Inj (Narcan Inj) (05/22/17 09:00) Docusate Sodium-Senna (Sanam-Colace) (05/22/17 09:00) Magnesium Hydroxide Liq (Milk Of Magnesi (05/22/17 09:00) Sennosides (Senokot) (05/22/17 09:00) Bisacodyl Supp (Dulcolax Supp) (05/22/17 09:00) Lactulose Liq (Lactulose Liq) (05/22/17 09:00) Inpatient Certification (05/22/17 ) Ascorbic Acid (Vitamin C) (05/22/17 09:30) Atorvastatin (Lipitor) (05/22/17 09:30) Bromocriptine (Parlodel) (05/22/17 09:45) Carbamazepine Liq (Tegretol Liq) (05/22/17 09:30) Collagenase Oint (Santyl Oint) (05/22/17 10:00) Docusate Sodium Liq (Colace Liq) (05/22/17 09:30) Famotidine (Pepcid) (05/22/17 09:30) Ferrous Sulfate Liq (Ferrous Sulfate Liq (05/22/17 09:30) Folic Acid (Folate) (05/22/17 09:30) Furosemide (Lasix) (05/22/17 09:30) Hyoscyamine Liq (Levsin Liq) (05/22/17 10:00) Levetiracetam Liq (Keppra Liq) (05/22/17 09:30) Arginine/Glutamine/Calcium Pow (Corby Po (05/22/17 09:15) Potassium Chloride Powder (Kcl Powder) (05/22/17 09:30) Sacubitril-Valsartan 24-26 Mg (Entresto (05/22/17 09:15) Sodium Hypochlorite 0.125% Shannan (Dakin's (05/22/17 10:00) Warfarin (Coumadin) (05/22/17 16:00) Water Sterile For Inj (Sterile Water For (05/22/17 10:45) Budeson-Formot 160-4.5 Mg Inh (Symbicort (05/22/17 09:45) Morphine Inj (Morphine Inj) (05/22/17 09:15) Prothrombin Time / Inr (Pt) (05/23/17 06:00) Prothrombin Time / Inr (Pt) (05/24/17 06:00) Prothrombin Time / Inr (Pt) (05/25/17 06:00) Prothrombin Time / Inr (Pt) (05/26/17 06:00) Prothrombin Time / Inr (Pt) (05/27/17 06:00) Prothrombin Time / Inr (Pt) (05/28/17 06:00) Prothrombin Time / Inr (Pt) (05/29/17 06:00) Ct Abd/Pel W Iv Contrast(Rout) (05/22/17 ) Ceftriaxone Inj (Rocephin Inj) (05/23/17 08:00) Albuterol Neb (Albuterol Neb) (05/22/17 12:00) Metoprolol Tartrate (Lopressor) (05/22/17 12:00) Oral Contrast - Adult (05/22/17 09:27) Warfarin (Coumadin) Pt Teach (Coumadin B (05/22/17 16:00) Diatrizoate Liq ( Gastroview Liq) (05/22/17 10:45) Admit Order (Ed Use Only) (05/22/17 10:45) Labs Laboratory Tests Test 05/22/17 05:00 05/22/17 05:05 White Blood Count 8.7 TH/MM3 Red Blood Count 4.33 MIL/MM3 Hemoglobin 10.0 GM/DL Hematocrit 32.3 % Mean Corpuscular Volume 74.6 FL Mean Corpuscular Hemoglobin 23.2 PG Mean Corpuscular Hemoglobin Concent 31.1 % Red Cell Distribution Width 20.7 % Platelet Count 627 TH/MM3 Mean Platelet Volume 6.9 FL Neutrophils (%) (Auto) 57.9 % Lymphocytes (%) (Auto) 28.0 % Monocytes (%) (Auto) 7.8 % Eosinophils (%) (Auto) 5.1 % Basophils (%) (Auto) 1.2 % Neutrophils # (Auto) 5.0 TH/MM3 Lymphocytes # (Auto) 2.4 TH/MM3 Monocytes # (Auto) 0.7 TH/MM3 Eosinophils # (Auto) 0.4 TH/MM3 Basophils # (Auto) 0.1 TH/MM3 CBC Comment DIFF FINAL Differential Comment Prothrombin Time 15.1 SEC Prothromb Time International Ratio 1.3 RATIO Activated Partial Thromboplast Time 40.5 SEC Blood Urea Nitrogen 17 MG/DL Creatinine 0.48 MG/DL Random Glucose 121 MG/DL Calcium Level 9.1 MG/DL Sodium Level 135 MEQ/L Potassium Level 3.9 MEQ/L Chloride Level 99 MEQ/L Carbon Dioxide Level 28.3 MEQ/L Anion Gap 8 MEQ/L Estimat Glomerular Filtration Rate 130 ML/MIN Urine Color YELLOW Urine Turbidity CLOUDY Urine pH 5.5 Urine Specific Wylie 1.015 Urine Protein 30 mg/dL Urine Glucose (UA) NEG mg/dL Urine Ketones NEG mg/dL Urine Occult Blood MOD Urine Nitrite NEG Urine Bilirubin NEG Urine Urobilinogen 4.0 MG/DL Urine Leukocyte Esterase LARGE Urine RBC /hpf Urine WBC 148 /hpf Urine WBC Clumps MOD Urine Squamous Epithelial Cells <1 /hpf Urine Calcium Oxalate Crystals OCC /hpf Urine Amorphous Sediment RARE Urine Bacteria MANY /hpf Urine Hyaline Casts 4 /lpf Urine Mucus FEW /lpf Microscopic Urinalysis Comment CATH-CULTURE IND MDM Medical Decision Making Medical Screen Exam Complete: Yes Emergency Medical Condition: Yes Interpretation(s) EKG: NSR 89bpm. LAD. No ST segment elevation or depression. Laboratory Tests Test 05/22/17 05:00 05/22/17 05:05 White Blood Count 8.7 TH/MM3 (4.0-11.0) Red Blood Count 4.33 MIL/MM3 (4.00-5.30) Hemoglobin 10.0 GM/DL (11.6-15.3) Hematocrit 32.3 % (35.0-46.0) Mean Corpuscular Volume 74.6 FL (80.0-100.0) Mean Corpuscular Hemoglobin 23.2 PG (27.0-34.0) Mean Corpuscular Hemoglobin Concent 31.1 % (32.0-36.0) Red Cell Distribution Width 20.7 % (11.6-17.2) Platelet Count 627 TH/MM3 (150-450) Mean Platelet Volume 6.9 FL (7.0-11.0) Neutrophils (%) (Auto) 57.9 % (16.0-70.0) Lymphocytes (%) (Auto) 28.0 % (9.0-44.0) Monocytes (%) (Auto) 7.8 % (0.0-8.0) Eosinophils (%) (Auto) 5.1 % (0.0-4.0) Basophils (%) (Auto) 1.2 % (0.0-2.0) Neutrophils # (Auto) 5.0 TH/MM3 (1.8-7.7) Lymphocytes # (Auto) 2.4 TH/MM3 (1.0-4.8) Monocytes # (Auto) 0.7 TH/MM3 (0-0.9) Eosinophils # (Auto) 0.4 TH/MM3 (0-0.4) Basophils # (Auto) 0.1 TH/MM3 (0-0.2) CBC Comment DIFF FINAL Differential Comment Prothrombin Time 15.1 SEC (9.8-11.6) Prothromb Time International Ratio 1.3 RATIO Activated Partial Thromboplast Time 40.5 SEC (24.3-30.1) Blood Urea Nitrogen 17 MG/DL (7-18) Creatinine 0.48 MG/DL (0.50-1.00) Random Glucose 121 MG/DL (74-106) Calcium Level 9.1 MG/DL (8.5-10.1) Sodium Level 135 MEQ/L (136-145) Potassium Level 3.9 MEQ/L (3.5-5.1) Chloride Level 99 MEQ/L (98-107) Carbon Dioxide Level 28.3 MEQ/L (21.0-32.0) Anion Gap 8 MEQ/L (5-15) Estimat Glomerular Filtration Rate 130 ML/MIN (>89) Urine Color YELLOW (YELLW/STRAW) Urine Turbidity CLOUDY (CLEAR) Urine pH 5.5 (5.0-8.5) Urine Specific Wylie 1.015 (1.002-1.035) Urine Protein 30 mg/dL (NEG-TRACE) Urine Glucose (UA) NEG mg/dL (NEG) Urine Ketones NEG mg/dL (NEG) Urine Occult Blood MOD (NEG) Urine Nitrite NEG (NEG) Urine Bilirubin NEG (NEG) Urine Urobilinogen 4.0 MG/DL (LESS THAN Urine Leukocyte Esterase LARGE (NEG) Urine RBC /hpf (0-3) Urine WBC 148 /hpf (0-5) Urine WBC Clumps MOD (NONE) Urine Squamous Epithelial Cells <1 /hpf (0-5) Urine Calcium Oxalate Crystals OCC /hpf (NONE) Urine Amorphous Sediment RARE Urine Bacteria MANY /hpf (NONE) Urine Hyaline Casts 4 /lpf (RARE) Urine Mucus FEW /lpf (OCC) Microscopic Urinalysis Comment CATH-CULTURE IND Differential Diagnosis Fall vs. head trauma vs. ICH vs. UTI vs. dehydration Narrative Course 66yo F who is immobile found [facility] the floor in [facility]. Pt has forehead abrasion. Labs reviewed, no leukocytosis. H/H 10/32.3 and is at baseline. BMP unremarkable. INR 1.3. UA showed large leukocyte. WBC 148. Pt given ceftriaxone 1gm IV. CT cspine showed degenerative changes. CT brain showed large bilateral prior infarction frontal parietal lobes. No acute changes. Pt has large stage 4 sacral decubitous ulcer that was not dressed and it is questionable how an immobile patient was found on the floor. Sign out to next team to admit. Diagnosis Primary Impression: UTI (urinary tract infection) Qualified Codes: N39.0 - Urinary tract infection, site not specified; R31.9 - Hematuria, unspecified Admitting Information Admitting Physician Requests: Stella Deal DO May 22, 2017 06:17
[2017-05-22] MEDS ORDERED: CEPH-460 PO (07:22)
[2017-05-22] MEDS ORDERED: CEPH250S PO (07:25)
--- NOTE | 2017-05-22 07:26 | EKG ---
Date Performed: 05/22/2017 Time Performed: 06:48:28 PTAGE: 66 years EKG: Sinus rhythm LEFT ANTERIOR FASCICULAR BLOCK MODERATE VOLTAGE CRITERIA FOR LVH, CONSIDER NORMAL VARIANT POSSIBLE A NTEROSEPTAL MYOCARDIAL INFARCTION ABNORMAL ECG No significant change from prior electrocardiogram. PREVIOUS TRACING : 05/03/2017 22.12 DOCTOR: Rusty King Interpretating Date/Time 05/22/2017 07:25:00
[2017-05-22] MEDS ORDERED: cefTRIAXone INJ 1,000 MG in SODIUM CHLORIDE 0.9% INJ 100 ML IV ONE (07:45)
[2017-05-22] MEDS ORDERED: oxyCODONE/ACETAMINOPHEN 5 MG/325 MG TAB PO PRN (09:00)
[2017-05-22] MEDS ORDERED: NALOXONE HCL 0.4 MG/ML AMP IV PUSH PRN (09:00)
[2017-05-22] MEDS ORDERED: MAGNESIUM HYDROXIDE SUSP 30 ML CUP PO PRN (09:00)
[2017-05-22] MEDS ORDERED: BISACODYL 10 MG SUPP RECTAL PRN (09:00)
[2017-05-22] MEDS ORDERED: oxyCODONE/ACETAMINOPHEN 10 MG/325 MG TAB PO PRN (09:00)
[2017-05-22] MEDS ORDERED: DEXTROSE 50% IN WATER 50 ML VIAL(D50) IV PUSH PRN (09:00)
[2017-05-22] MEDS ORDERED: ACETAMINOPHEN 325 MG TAB PO PRN ×2 (09:00)
[2017-05-22] MEDS ORDERED: DOCUSATE SODIUM 50 MG/SENNA 8.6 MG TAB PO SCH (09:00)
[2017-05-22] MEDS ORDERED: SODIUM CHLORIDE 0.9% FLUSH 10 ML FLUSH IV FLUSH PRN (09:00)
[2017-05-22] MEDS ORDERED: PROCHLORPERAZINE 25 MG SUPP RECTAL PRN (09:00)
[2017-05-22] MEDS ORDERED: ONDANSETRON HCL 4 MG/2 ML VIAL IVP PRN (09:00)
[2017-05-22] MEDS ORDERED: GLUCAGON 1 MG/ML VIAL OTHER PRN (09:00)
[2017-05-22] MEDS ORDERED: LACTULOSE SYRUP 20 GM/30 ML CUP PO PRN (09:00)
[2017-05-22] MEDS ORDERED: MORPHINE SULFATE 4 MG/ML INJ IV PUSH PRN (09:00)
[2017-05-22] MEDS ORDERED: SENNOSIDES 8.6 MG TAB PO PRN (09:00)
[2017-05-22] MEDS: JUVEN POWDER 1 PACK G-TUBE SCH ×2 (09:15→21:00)
[2017-05-22] MEDS ORDERED: MORPHINE SULFATE 2 MG/ML INJ IV PUSH PRN (09:15)
[2017-05-22] MEDS: FUROSEMIDE 20 MG TAB PEG SCH (09:30)
[2017-05-22] MEDS: ASCORBIC ACID 500 MG TAB PEG SCH ×2 (09:30→21:00)
[2017-05-22] MEDS: DOCUSATE SODIUM 100 MG/10 ML UDC PO SCH ×2 (09:30→21:00)
[2017-05-22] MEDS: ATORVASTATIN 40 MG TAB G-TUBE SCH (09:30)
[2017-05-22] MEDS: BUDESONIDE-FORMOTEROL 160/4.5 MCG INHALER INH SCH (09:45)
[2017-05-22] MEDS: COLLAGENASE OINT 30 GM TUBE TOPICAL SCH (10:00)
[2017-05-22] MEDS: SODIUM HYPOCHLORITE 0.125% 500 ML BTL TOPICAL SCH (10:00)
[2017-05-22] MEDS: STERILE WATER FOR INJ SCH ×3 (10:45→22:00)
[2017-05-22] MEDS ORDERED: DIATRIZOATE MEGLUM/DIATRIZOATE SOD 9 ML CUP ONE (10:45)
[2017-05-22] MEDS: SODIUM CHLORIDE 0.9% FLUSH 10 ML FLUSH IV FLUSH SCH ×2 (11:09→21:00)
[2017-05-22] MEDS: SODIUM CHLOR 0.9% 1000 ML INJ 1,000 ML IV SCH ×2 (11:09→19:00)
[2017-05-22] MEDS: FERROUS SULFATE 300 MG /5ML UDC PEG SCH ×2 (11:46→21:00)
[2017-05-22] MEDS: levETIRAcetam 500 MG/5 ML UDC PEG SCH ×2 (11:46→21:00)
[2017-05-22] MEDS: BROMOCRIPTINE MESYLATE 2.5 MG TAB OG-TUBE SCH ×2 (11:47→21:00)
[2017-05-22] MEDS: SACUBITRIL/VALSARTAN 24 MG-26 MG TAB PEG SCH ×2 (11:47→21:00)
[2017-05-22] MEDS: carBAMazepine SUSP 200 MG/10 ML UDC PEG SCH ×2 (11:47→21:00)
[2017-05-22] MEDS: POTASSIUM CHLORIDE 20 MEQ PWD PACKET PEG SCH (11:48)
[2017-05-22] MEDS: FAMOTIDINE 20 MG TAB PEG SCH ×2 (11:48→21:00)
[2017-05-22] MEDS: FOLIC ACID 1 MG TAB PEG SCH (11:48)
[2017-05-22] MEDS: RESP: ALBUTEROL 2.5 MG/3 ML NEB (SCH) INH ×4 (11:50→23:38)
[2017-05-22] MEDS: HYOSCYAMINE SOLN 0.125 MG/ML 15 ML BTL G-TUBE SCH ×2 (11:58→18:49)
[2017-05-22] MEDS: INSULIN ASPART SUPPLEMENTAL SCALE SQ SCH ×3 (12:00→21:00)
[2017-05-22] MEDS ORDERED: IOHEXOL 350 MG/ML 10 ML VIAL (for RAD DIAG) IVCONTRAST ONE (12:35)
[2017-05-22] MEDS: METOPROLOL TARTRATE 50 MG TAB G-TUBE SCH ×2 (13:13→18:49)
--- NOTE | 2017-05-22 13:21 | RADRPT ---
EXAM DATE/TIME: 05/22/2017 12:29 [facility] COMPARISON: CT ABDOMEN & PELVIS W CONTRAST, April 20, 2015, 6:30. INDICATIONS : Fall.Abscess. IV CONTRAST: 96 cc Omnipaque 350 (iohexol) IV ORAL CONTRAST: Prescribed oral contrast ingested. RADIATION DOSE: 16.09 CTDIvol (mGy) MEDICAL HISTORY : Cerebrovascular disease. Cardiovascular disease Non responsive, parapalegic. SURGICAL HISTORY : Peg tube. ENCOUNTER: Initial ACUITY: 1 day PAIN SCALE: Non-responsive LOCATION: middle forehead. TECHNIQUE: Volumetric scanning of the abdomen and pelvis was performed. Using automated exposure control and ad justment of the mA and/or kV according to patient size, radiation dose was kept as low as reasonably achievable to obtain optimal diagnostic quality images. DICOM format image data is available electro nically for review and comparison. FINDINGS: LOWER LUNGS: The visualized lower lungs are clear. Heart size is enlarged. No significant change compared to the p rior study. LIVER: Homogeneous density without lesion. There is no dilation of the biliary tree. Large stable calcified gallstone the gallbladder. No surrounding inflammatory changes. No change compared to 2015.. SPLEEN: Normal size without lesion. PANCREAS: Within normal limits. KIDNEYS: Normal in size and shape. There is no mass, stone or hydronephrosis. ADRENAL GLANDS: Within normal limits. VASCULAR: There is no aortic aneurysm. BOWEL/MESENTERY: The stomach, small bowel, and colon demonstrate no acute abnormality. There is no free intraperitone al air or fluid. There is a G-tube in the stomach. ABDOMINAL WALL: Within normal limits. RETROPERITONEUM: There is no lymphadenopathy. BLADDER: Brown catheter in urinary bladder. Urinary bladder is decompressed. REPRODUCTIVE: Within normal limits. INGUINAL: There is no lymphadenopathy or hernia. MUSCULOSKELETAL: There is primary degenerative changes of the lumbar spine with curvature to the right. There is a lar ge posterior decubitus ulcer just to the right of midline just below the coccyx bone. No loculated fl uid collections are seen to suggest an abscess. There is some thickened soft tissue suggestive of inf lammatory type changes. The decubitus ulcer is close to the distal coccyx bone. CONCLUSION: 1. Large posterior decubitus ulcer just to the right of midline just below the coccyx bone. No locula william fluid collections are seen to suggest an abscess. 2. Large stable calcified gallstone in the gallbladder. No biliary tract obstruction. No change linda red to 2015. 3. Gastrostomy tube in the stomach. Clif Jacobo MD on May 22, 2017 at 13:12 Board Certified Radiologist. This report was verified electronically.
--- NOTE | 2017-05-22 13:40 | HHI.HP ---
[facility] Unknown Admission Diagnosis sepsis, urinary tract infection, stage 4 sacral decubitus ulcer. Diagnoses: (1) UTI (urinary tract infection) Diagnosis: Principal (2) Pressure ulcer of sacral region, stage 4 Diagnosis: Secondary (3) COPD (chronic obstructive pulmonary disease) Diagnosis: Secondary (4) Encephalopathy Diagnosis: Secondary (5) Fall Diagnosis: Principal Chief Complaint: FALL Travel History International Travel<30 Days: No Contact w/Intl Traveler <30 Da: No Traveled to Known Affected Are: No History of Present Illness Patient is a 66-year-old female with history of chronic encephalopathy, COPD, hypertension, epilepsy. Who was sent in from [facility] for evaluation of head trauma. Per the report from the facility. They said she was in the bed at 2 AM but then when they reevaluated at 4 AM was found to be on the floor. Patient is status post tracheostomy, PEG tube placement is nonverbal and not to mobile. Patient is at her baseline mental status, it is unknown how patient appeared on the floor Patient found to have a urinary tract infection as well as a larger sacral decubitus. The emergency room physician did not feel comfortable with her going back to the detention facility at this time and we will admit her Review of Systems ROS Limitations: Altered Mental Status Past Family Social History Past Medical History OSTEOARTHRITIS COPD Hypertension Encephalopathy Anxiety depression CVA Bad liver Hepatitis C Cirrhosis History of anticoagulation therapy History of myocardial infarction History of seizures Past Surgical History Status post tracheostomy Status post PEG tube placement Reported Medications Reported Meds & Active Scripts Active Cephalexin Liq (Cephalexin Monohydrate) 250 Mg/5 Ml Susp 250 Mg PO Q6H 7 Days Sterile Water For Injecti (Water For Injection, Sterile) 1 Inj Inj 100 Ml G- TUBE Q8HR C 500/Constance Hips (Ascorbic Acid) 500 Mg Tab 500 Mg PEG BID Folic Acid 1 Mg Tablet 1 Mg PEG DAILY Santyl (Collagenase) 250 Unit/Gram Oin 1 Applic TOPICAL DAILY Famotidine 20 Mg Tab 20 Mg PEG BID Furosemide 20 Mg Tab 20 Mg PEG DAILY Corby Nutrivigor (Nutritional Supplements) 7 Gram-7 Gram-1.5 Gram Pow 1 Pack G- TUBE BID Potassium Chloride Powder (Potassium Chloride) 20 Meq Powderpack 20 Meq PEG DAILY Dakins Solution Quarter Strength Topical (Sodium Hypochlorite Topical) 0.125% Soln 0 Ml TOPICAL DAILY Keppra Liq (Levetiracetam) 500 Mg/5 Ml Soln 1,000 Mg PEG Q12HR Carbamazepine 200 Mg/10 Ml Oral.susp 200 Mg PEG Q12HR Entresto (Sacubitril-Valsartan) 24-26 Mg Tab 1 Tab PEG BID Metoprolol Tartrate 25 Mg Tab 50 Mg G-TUBE Q6HR Atorvastatin (Atorvastatin Calcium) 40 Mg Tab 40 Mg G-TUBE DAILY Coumadin (Warfarin) 10 Mg Tab 10 Mg PO DAILY@1600 Ferrous Sulfate Liq (Ferrous Sulfate) 300 Mg/5 Ml Soln 300 Mg PEG BID 30 Days Hyosyne Liq Drops (Hyoscyamine Sulfate) 0.125 Mg/Ml Soln 0.125 Mg G-TUBE Q6H 30 Days Docusate Sodium Liq (Docusate Sodium) 50 Mg/5 Ml Liq 100 Mg PO Q12HR Bromocriptine (Bromocriptine Mesylate) 2.5 Mg Tab 2.5 Mg OG-TUBE Q12HR Advair Diskus Inh (Fluticasone-Salmeterol Inh) 250-50 Mcg/Blist Aer 1 Puff INH BID Rinse mouth after use. Albuterol Neb (Albuterol Sulfate) 2.5 Mg/3 Ml Neb 2.5 Mg NEB Q4HR NEB While awake Ventolin Hfa 18 GM Inh (Albuterol Sulfate) 90 Mcg/Act Aer 1 Puff INH Q4H PRN Allergies: Coded Allergies: No Known Allergies (Unverified , 05/09/17) Active Ordered Medications Current Medications Ceftriaxone Sodium 1000 mg/ Sodium Chloride 100 ml @ 200 mls/hr ONCE ONCE IV Last administered on 05/22/17t 08:08; Start 05/22/17 at 07:45; Stop 05/22/17 at 08:14; Status DC Dextrose (D50w (Vial) Inj) 50 ml UNSCH PRN IV PUSH HYPOGLYCEMIA-SEE COMMENTS; Start 05/22/17 at 09:00 Glucagon (Glucagon Inj) 1 mg UNSCH PRN OTHER HYPOGLYCEMIA-SEE COMMENTS; Start 05/22/17 at 09:00 Insulin Aspart (NovoLOG SUPPLEMENTAL SCALE) 1 ACHS SLIDING SCALE SQ ; Start at 12:00 Sodium Chloride 1,000 ml @ 100 mls/hr Q10H IV Last administered on 05/22/17 11:09; Start 05/22/17 at 09:00 Sodium Chloride (NS Flush) 2 ml UNSCH PRN IV FLUSH FLUSH AFTER USING IV ACCESS ; Start 05/22/17 at 09:00 Sodium Chloride (NS Flush) 2 ml BID IV FLUSH Last administered on 05/22/17 11 :09; Start 05/22/17 at 09:00 Acetaminophen (Tylenol) 650 mg Q4H PRN PO TEMP > 100.4; Start 05/22/17 at 09: 00 Ondansetron HCl (Zofran Inj) 4 mg Q6H PRN IVP NAUSEA OR VOMITING; Start at 09:00 Prochlorperazine (Compazine Supp) 25 mg Q12H PRN RECTAL NAUSEA OR VOMITING; Start 05/22/17 at 09:00 Acetaminophen (Tylenol) 650 mg Q6H PRN PO PAIN SCALE 1 TO 2; Start 05/22/17 at 09:00 Oxycodone/ Acetaminophen (Percocet 5-325 Mg) 1 tab Q6H PRN PO PAIN SCALE 3 TO 5; Start 05/22/17 at 09:00 Oxycodone/ Acetaminophen (Percocet 10-325 Mg) 1 tab Q6H PRN PO PAIN SCALE 6 TO 10; Start 05/22/17 at 09:00 Morphine Sulfate (Morphine Inj) 2 mg Q3H PRN IV PUSH Pain 3-5; if unable to take PO; Start 05/22/17 at 09:15 Morphine Sulfate (Morphine Inj) 4 mg Q3H PRN IV PUSH Pain 6-10;if unable to take PO; Start 05/22/17 at 09:00 Naloxone HCl (Narcan Inj) 0.4 mg UNSCH PRN IV PUSH SEE LABEL COMMENTS; Start 05/22/17 at 09:00 Senna/Docusate Sodium (Sanam-Colace) 1 tab BID PO ; Start 05/22/17 at 09:00; Stop 05/22/17 at 10:34; Status DC Magnesium Hydroxide (Milk Of Magnesia Liq) 30 ml Q12H PRN PO Mild constipation ; Start 05/22/17 at 09:00 Sennosides (Senokot) 17.2 mg Q12H PRN PO Moderate constipation; Start at 09:00 Bisacodyl (Dulcolax Supp) 10 mg DAILY PRN RECTAL SEVERE CONSITIPATION; Start 05/22/17 at 09:00 Lactulose (Lactulose Liq) 30 ml DAILY PRN PO SEVERE CONSITIPATION; Start 05/22 at 09:00 Albuterol Sulfate (Albuterol Neb) 2.5 mg Q4HR NEB INH Last administered on 11:50; Start 05/22/17 at 12:00 Ascorbic Acid (Vitamin C) 500 mg BID PEG ; Start 05/22/17 at 09:30 Atorvastatin Calcium (Lipitor) 40 mg DAILY G-TUBE ; Start 05/22/17 at 09:30 Bromocriptine Mesylate (Parlodel) 2.5 mg Q12HR OG-TUBE Last administered on 11:47; Start 05/22/17 at 09:45 Carbamazepine (TEGretol LIQ) 200 mg Q12HR PEG Last administered on 05/22/17 11:47; Start 05/22/17 at 09:30 Collagenase (Santyl Oint) 1 applic DAILY TOPICAL ; Start 05/22/17 at 10:00 Docusate Sodium (Colace Liq) 100 mg Q12HR PO ; Start 05/22/17 at 09:30 Famotidine (Pepcid) 20 mg BID PEG Last administered on 05/22/17 11:48; Start 05/22/17 at 09:30 Ferrous Sulfate (Ferrous Sulfate Liq) 300 mg BID PEG Last administered on 05/22 11:46; Start 05/22/17 at 09:30 Folic Acid (Folate) 1 mg DAILY PEG Last administered on 05/22/17 11:48; Start 05/22/17 at 09:30 Furosemide (Lasix) 20 mg DAILY PEG ; Start 05/22/17 at 09:30 Hyoscyamine Sulfate (Levsin Liq) 0.125 mg Q6H G-TUBE Last administered on 11:58; Start 05/22/17 at 10:00 Levetriacetam (Keppra Liq) 1,000 mg Q12HR PEG Last administered on 05/22/17 11:46; Start 05/22/17 at 09:30 Metoprolol Tartrate (Lopressor) 50 mg Q6HR G-TUBE ; Start 05/22/17 at 12:00 Arginine HCl (Corby Powder) 1 pack BID G-TUBE ; Start 05/22/17 at 09:15 Potassium Chloride (KCl Powder) 20 meq DAILY PEG Last administered on 11:48; Start 05/22/17 at 09:30 Sacubitril/ Valsartan (Entresto 24-26 Mg) 1 tab BID PEG Last administered on 11:47; Start 05/22/17 at 09:15 Sodium Hypochlorite (Dakin'S 0.125% Soln) DAILY TOPICAL ; Start 05/22/17 at 10 :00 Warfarin Sodium (Coumadin) 10 mg DAILY@1600 PO ; Start 05/22/17 at 16:00 Sterile Water (Sterile Water For Inj) 100 ml Q8HR .XX ; Start 05/22/17 at 10:45 Budesonide/ Formoterol Fumarate (Symbicort 160-4.5 Inh) 2 puff BID INH ; Start 05/22/17 at 09:45 Ceftriaxone Sodium 2000 mg/ Sodium Chloride 100 ml @ 200 mls/hr Q24H IV ; Start 05/23/17 at 08:00 Patient Medication Teaching (Coumadin Booklet) 1 ONCE ONCE .XX ; Start at 16:00; Stop 05/22/17 at 16:01 Diatrizoate Meglum/ Diatrizoate Sod ( Gastroview Liq) 9 ml STK-MED ONCE .ROUTE Last administered on 05/22/17 10:51; Start 05/22/17 at 10:45; Stop 05/22/17 at 10:46; Status DC Iohexol (Omnipaque 350 Inj) 96 ml STK-MED ONCE IVCONTRAST Last administered on 05/22/17 12:35; Start 05/22/17 at 12:35; Stop 05/22/17 at 12:36; Status DC Family History Thyroid Hypertension Arrhythmia Blood Clots Carcinomas cancer Social History hISTORY OF TOBACCO AND ALCOHOL Probable illicit drug use Physical Exam Vital Signs Vital Signs Date Time Temp Pulse Resp B/P (MAP) Pulse Ox O2 Delivery O2 Flow Rate FiO2 10/15/17 12:50 90 20 142/82 (102) 100 Trach Collar 7.00 05/22/17 11:01 85 20 153/75 (101) 99 Trach Collar 7.00 05/22/17 08:10 76 14 132/69 (90) 94 Trach Collar 05/22/17 08:00 95 Trach Collar 5.00 21 05/22/17 05:10 98 Trach Collar 21 05/22/17 04:49 98.1 92 20 160/82 (108) 100 Physical Exam GENERAL: This is a well-nourished, well-developed patient, in no apparent distress. Very lethargic follows no commands SKIN: No rashes, ecchymoses or lesions. Cool and dry. Large sacral decub stage IV plus HEAD: Atraumatic. Normocephalic. No temporal or scalp tenderness. EYES: Pupils equal round and reactive. Extraocular motions not able to assess. No scleral icterus. No injection or drainage. ENT: Nose without bleeding, purulent drainage or septal hematoma. Throat without erythema, tonsillar hypertrophy or exudate. Uvula midline. Airway patent. Oral mucosa moist NECK: Trachea midline. No JVD or lymphadenopathy. Supple, nontender, no meningeal signs. Tracheostomy in place CARDIOVASCULAR: Regular rate and rhythm without murmurs, gallops, or rubs. S1- S2 no S3 or S4 RESPIRATORY: Clear to auscultation. Breath sounds equal bilaterally. No wheezes , rales, Scattered rhonchi GASTROINTESTINAL: Abdomen soft, non-tender, nondistended. No hepato-splenomegaly , or palpable masses. No guarding. PEG tube in place Brown catheter in place MUSCULOSKELETAL: Extremities without clubbing, cyanosis, or edema. No joint tenderness, effusion, or edema noted. No calf tenderness. Negative Homans sign bilaterally. NEUROLOGICAL: Awake follows no commands. Not able to assess Cranial nerves II through XII . Not able to assess if Motor and sensory grossly within normal limits. 3out of 5 muscle strength in all muscle groups. Nonverbal speech. Cannot assess insight and judgment Cannot assess mood and behavior Totally nonverbal Laboratory Laboratory Tests Test 05/22/17 05:00 05/22/17 05:05 White Blood Count 8.7 Red Blood Count 4.33 Hemoglobin 10.0 Hematocrit 32.3 Mean Corpuscular Volume 74.6 Mean Corpuscular Hemoglobin 23.2 Mean Corpuscular Hemoglobin Concent 31.1 Red Cell Distribution Width 20.7 Platelet Count 627 Mean Platelet Volume 6.9 Neutrophils (%) (Auto) 57.9 Lymphocytes (%) (Auto) 28.0 Monocytes (%) (Auto) 7.8 Eosinophils (%) (Auto) 5.1 Basophils (%) (Auto) 1.2 Neutrophils # (Auto) 5.0 Lymphocytes # (Auto) 2.4 Monocytes # (Auto) 0.7 Eosinophils # (Auto) 0.4 Basophils # (Auto) 0.1 CBC Comment DIFF FINAL Differential Comment Prothrombin Time 15.1 Prothromb Time International Ratio 1.3 Activated Partial Thromboplast Time 40.5 Blood Urea Nitrogen 17 Creatinine 0.48 Random Glucose 121 Calcium Level 9.1 Sodium Level 135 Potassium Level 3.9 Chloride Level 99 Carbon Dioxide Level 28.3 Anion Gap 8 Estimat Glomerular Filtration Rate 130 Urine Color YELLOW Urine Turbidity CLOUDY Urine pH 5.5 Urine Specific Gloster 1.015 Urine Protein 30 Urine Glucose (UA) NEG Urine Ketones NEG Urine Occult Blood MOD Urine Nitrite NEG Urine Bilirubin NEG Urine Urobilinogen 4.0 Urine Leukocyte Esterase LARGE Urine RBC Urine WBC 148 Urine WBC Clumps MOD Urine Squamous Epithelial Cells <1 Urine Calcium Oxalate Crystals OCC Urine Amorphous Sediment RARE Urine Bacteria MANY Urine Hyaline Casts 4 Urine Mucus FEW Microscopic Urinalysis Comment CATH-CULTURE IND Date/Time Source Procedure Growth Status 05/22/17 05:05 Urine Catheterized Urine Urine Culture Pending Received Result Diagram: 05/22/17 0500 05/22/17 0500 Caprini VTE Risk Assessment Caprini VTE Risk Assessment: Mod/High Risk (score >= 2) Caprini Risk Assessment Model Point Value = 1 Point Value = 2 Point Value = 3 Point Value = 5 Age 41-60 Minor surgery BMI > 25 kg/m2 Swollen legs Varicose veins or History of unexplained or recurrent spontaneous Oral contraceptives or hormone replacement Sepsis (< 1 month) Serious lung disease, including pneumonia (< 1 month) Abnormal pulmonary function Acute myocardial infarction Congestive heart failure (< 1 month) History of inflammatory bowel disease Medical patient at bed rest Age 61-74 Arthroscopic surgery Major open surgery (> 45 min) Laparoscopic surgery (> 45 min) Malignancy Confined to bed (> 72 hours) Immobilizing plaster cast Central venous access Age >= 75 History of VTE Family history of VTE Factor V Leiden Prothrombin [id number] Lupus anticoagulant Anticardiolipin antibodies Elevated serum homocysteine Heparin-induced thrombocytopenia Other congenital or acquired thrombophilia Stroke (< 1 month) Elective arthroplasty Hip, pelvis, or leg fracture Acute spinal cord injury (< 1 month) Prophylaxis Regimen Total Risk Factor Score Risk Level Prophylaxis Regimen 0-1 Low Early ambulation 2 Moderate Order ONE of the following: *Sequential Compression Device (SCD) *Heparin 5000 units SQ BID 3-4 Higher Order ONE of the following medications: *Heparin 5000 units SQ TID *Enoxaparin/Lovenox 40 mg SQ daily (WT < 150 kg, CrCl > 30 mL/min) *Enoxaparin/Lovenox 30 mg SQ daily (WT < 150 kg, CrCl > 10-29 mL/min) *Enoxaparin/Lovenox 30 mg SQ BID (WT < 150 kg, CrCl > 30 mL/min) AND/OR *Sequential Compression Device (SCD) 5 or more Highest Order ONE of the following medications: *Heparin 5000 units SQ TID (Preferred with Epidurals) *Enoxaparin/Lovenox 40 mg SQ daily (WT < 150 kg, CrCl > 30 mL/min) *Enoxaparin/Lovenox 30 mg SQ daily (WT < 150 kg, CrCl > 10-29 mL/min) *Enoxaparin/Lovenox 30 mg SQ BID (WT < 150 kg, CrCl > 30 mL/min) AND *Sequential Compression Device (SCD) Assessment and Plan Problem List: (1) Alcohol use ICD Code: Z78.9 - Other specified health status Status: Resolved (2) Fall ICD Code: W19.XXXA - Unspecified fall, initial encounter (3) Pressure ulcer of sacral region, stage 4 ICD Code: L89.154 - Pressure ulcer of sacral region, stage 4 Status: Acute (4) Encephalopathy ICD Code: G93.40 - Encephalopathy, unspecified Status: Acute (5) COPD (chronic obstructive pulmonary disease) ICD Code: J44.9 - Chronic obstructive pulmonary disease, unspecified Status: Chronic (6) UTI (urinary tract infection) ICD Code: N39.0 - Urinary tract infection, site not specified Status: Acute (7) Atrial fibrillation ICD Code: I48.91 - Unspecified atrial fibrillation Assessment and Plan Urinary tract infection we'll treat with Rocephin 2 g IV daily Chronic decubitus ulcer worsening we'll ask wound care to eval and treat COPD continue on neb treatments as needed Chronic penitentiary resident Chronic atrial fibrillation Chronic cardiomyopathy with an EF of 35% History of m[place]amoya status post multiple infarcts Chronic encephalopathy History of multiple strokes Continue physical therapy and occupational therapy Continue current medications Guarded prognosis Remains full code Code Status Full code Discussed Condition With Emergency room physician and RN Patient unable to participate Physician Certification 2 Midnight Certification Type: Admission for Inpatient Services Order for Inpatient Services The services are ordered in accordance with Medicare regulations or non- Medicare payer requirements, as applicable. In the case of services not specified as inpatient-only, they are appropriately provided as inpatient services in accordance with the 2-midnight benchmark. Estimated LOS (days): 2 2 days is the estimated time the patient will need to remain in the hospital, assuming treatment plan goals are met and no additional complications. Post-Hospital Plan: SNF Problem Qualifiers (1) UTI (urinary tract infection): Qualified Codes: N39.0 - Urinary tract infection, site not specified; R31.9 - Hematuria, unspecified Kenneth Carrillo DO May 22, 2017 13:40
[2017-05-22] MEDS: WARFARIN SOD 10 MG TAB PO SCH (18:49)
[2017-05-23] VITALS (7 sets, daily range): BP systolic 97–140; BP diastolic 54–86; PULSE 70–97; RESP 17–21; TEMP 96.9–98.7; O2SAT 94–100
[2017-05-23] MEDS: HYOSCYAMINE SOLN 0.125 MG/ML 15 ML BTL G-TUBE SCH ×5 (04:07→22:56)
[2017-05-23] MEDS: RESP: ALBUTEROL 2.5 MG/3 ML NEB (SCH) INH ×5 (04:17→21:05)
[2017-05-23] MEDS: SODIUM CHLOR 0.9% 1000 ML INJ 1,000 ML IV SCH ×3 (05:00→22:57)
[2017-05-23] MEDS: METOPROLOL TARTRATE 50 MG TAB G-TUBE SCH ×5 (05:29→22:56)
[2017-05-23] MEDS: STERILE WATER FOR INJ SCH ×4 (05:33→22:00)
[2017-05-23 07:49] LABS: AUTOMATED NEUTROPHIL # 6.3 TH/MM3 (1.8-7.7); BASOPHIL # 0.1 TH/MM3 (0-0.2); BASOPHIL % 0.8 % (0.0-2.0); EOSINOPHIL # 0.3 TH/MM3 (0-0.4); EOSINOPHIL % 3.4 % (0.0-4.0); HEMATOCRIT 30.1 % (35.0-46.0); HEMO FLAGS DIFF FINAL; LYMPH % 18.2 % (9.0-44.0); LYMPHOCYTE # 1.6 TH/MM3 (1.0-4.8); MEAN CELL VOLUME 74.9 FL (80.0-100.0); MEAN CORPUSCULAR HEMOGLOBIN 23.3 PG (27.0-34.0); MEAN CORPUSCULAR HGB CONC 31.1 % (32.0-36.0); MONO % 6.6 % (0.0-8.0); PLATELET COUNT 548 TH/MM3 (150-450); RED BLOOD COUNT 4.01 MIL/MM3 (4.00-5.30); RED CELL DISTRIBUTION WIDTH 20.8 % (11.6-17.2); WHITE BLOOD COUNT 8.8 TH/MM3 (4.0-11.0)
[2017-05-23 07:54] LABS: INTERNATIONAL NORMALIZED RATIO 1.8 RATIO; PROTHROMBIN TIME - PATIENT 20.7 SEC (9.8-11.6)
[2017-05-23] MEDS: INSULIN ASPART SUPPLEMENTAL SCALE SQ SCH ×4 (07:56→21:00)
[2017-05-23 08:11] LABS: ALT (GPT) 30 U/L (10-53); ANION GAP 9 MEQ/L (5-15); AST (GOT) 24 U/L (15-37); BICARBONATE 26.4 MEQ/L (21.0-32.0); BLOOD UREA NITROGEN 12 MG/DL (7-18); CHLORIDE 104 MEQ/L (98-107); GLOMERULAR FILTRATION RATE 137 ML/MIN (>89); MAGNESIUM 2.1 MG/DL (1.5-2.5); POTASSIUM 3.7 MEQ/L (3.5-5.1); SODIUM (NA) 139 MEQ/L (136-145)
[2017-05-23 08:19] LABS: ALKALINE PHOSPHATASE 169 U/L (45-117); TOTAL BILIRUBIN ADULT 0.2 MG/DL (0.2-1.0)
[2017-05-23] MEDS: DOCUSATE SODIUM 100 MG/10 ML UDC PO SCH ×2 (08:56→21:56)
[2017-05-23] MEDS: ATORVASTATIN 40 MG TAB G-TUBE SCH (08:56)
[2017-05-23] MEDS: ASCORBIC ACID 500 MG TAB PEG SCH ×2 (08:56→21:58)
[2017-05-23] MEDS: FUROSEMIDE 20 MG TAB PEG SCH (08:56)
[2017-05-23] MEDS: cefTRIAXone INJ 2,000 MG in SODIUM CHLORIDE 0.9% INJ 100 ML IV SCH (08:56)
[2017-05-23] MEDS: FAMOTIDINE 20 MG TAB PEG SCH ×2 (08:56→21:56)
[2017-05-23] MEDS: FOLIC ACID 1 MG TAB PEG SCH (08:56)
[2017-05-23] MEDS: SODIUM HYPOCHLORITE 0.125% 500 ML BTL TOPICAL SCH (08:57)
[2017-05-23] MEDS: levETIRAcetam 500 MG/5 ML UDC PEG SCH ×2 (08:57→21:00)
[2017-05-23] MEDS: SODIUM CHLORIDE 0.9% FLUSH 10 ML FLUSH IV FLUSH SCH ×2 (08:58→21:00)
[2017-05-23] MEDS: BUDESONIDE-FORMOTEROL 160/4.5 MCG INHALER INH SCH ×2 (09:00→21:00)
[2017-05-23] MEDS: COLLAGENASE OINT 30 GM TUBE TOPICAL SCH (09:00)
[2017-05-23] MEDS: POTASSIUM CHLORIDE 20 MEQ PWD PACKET PEG SCH (09:00)
[2017-05-23] MEDS: JUVEN POWDER 1 PACK G-TUBE SCH ×2 (09:00→21:00)
[2017-05-23] MEDS: BROMOCRIPTINE MESYLATE 2.5 MG TAB OG-TUBE SCH ×2 (10:56→21:59)
[2017-05-23] MEDS: SACUBITRIL/VALSARTAN 24 MG-26 MG TAB PEG SCH ×2 (10:56→21:58)
[2017-05-23] MEDS: carBAMazepine SUSP 200 MG/10 ML UDC PEG SCH ×2 (10:56→21:56)
[2017-05-23] MEDS: FERROUS SULFATE 300 MG /5ML UDC PEG SCH ×2 (10:56→21:56)
--- NOTE | 2017-05-23 15:09 | PD.WCN.NOT ---
Wound Consult Description: Received consult for Pressure ulcer to sacral buttocks area from Doctor Gerardo. Communicated with: ANDRE byers and Randal Trejo for orders Recommendation: 1.Please cleanse wound to Sacrococcygeal are with wound cleanser or normal saline and pat dry before applying skin prep to periwound. Then Apply wound VAC dressing starting on 05/24 and change this Tuesday05/27/2017 and then change Tuesday, Tuesday and Tuesday. Please bridge granufoam to hip area, with settings at 125 mm/hg low continuous suction. Please apply moist to dry dressing until wound VAC dressing can be applied and change as needed. 2. Please paint L lateral malleolus stable eschar with povidone-iodine BID and leave open to air 3.Please order Wave bed from [facility]. 4.Turn patient to offload pressure from sacrococcygeal area every 2 hours 5. Please apply heel raiser boots to bilateral feet Additional Information: Patient seen on Santino byers for evaluation of sacral/ buttocks pressure ulcer. Patient assessed with Carly byers at around 1300.Patient turned to R side with the assistance of ANDRE Carroll and machine sign writer. Removed adhesive foam dressing and packing in place to reveal stage 4 pressure injury to sacrococcygeal area. Patient is known to inpatient wound care and was previously followed for this stage 4 pressure injury.Wound presents with ~40% muscle tissue, ~20% bone, 20% red non granulation tissue and ~20% dark red non granulation tissue. Wound has no foul odor and appears clean. Periwound is unremarkable. Wound margins are uneven and wound has overall an oval shape. Wound measures ~7cm x ~4cm x 4.4 cm undermining noted from 9 to 4 o'clock, deepest at 9 o'clock 6.3cm. Cleansed wound with normal saline. and packed wound with moistened rolled gauze. Skin prep was then sprayed on periwound before applying ABD pad secured with foam tape. Transferred patient as recommended above on Wave bed from [facility].Patient could benefit from wound VAC dressing Wound is clean, and deep with moderate sero-sanguinous drainage with no foul odor at this time Patient also noted with unstageable pressure injury to L lateral malleolus. Wound measures ~1cmx ~1cm of black stable eschar. Wound left open to air. Applied heel raiser boots with attached positioning wedge to offload pressure from L lateral malleolus. Alma [facility] May 23, 2017 15:09
[2017-05-23] MEDS: WARFARIN SOD 10 MG TAB PO SCH (16:56)
[2017-05-23 17:07] LABS: HEMOGLOBIN A1a 1.2 %; HEMOGLOBIN A1b 1.8 %; HEMOGLOBIN Ao 84.7 %; HEMOGLOBIN P3 5.9 %
--- NOTE | 2017-05-23 18:37 | HHI.PR ---
Subjective Remarks Armen tin bed, appears in nad, watching TV, looks at me when I called her name. Patient is known to me from previous admission. Has sacral wound discussed with Sheen from wound care appreciate recommendations , will place wound vac VsS Breathing well, sattign well on trach, was suctioned well by the nurse. Objective Vitals Vital Signs Date Time Temp Pulse Resp B/P (MAP) Pulse Ox O2 Delivery O2 Flow Rate FiO2 05/23/17 16:00 98.5 80 20 131/72 (91) 97 05/23/17 12:00 98.7 97 19 117/59 (78) 96 05/23/17 08:00 98.6 89 17 140/86 (104) 97 05/23/17 04:45 98.3 70 20 119/56 (77) 94 05/23/17 01:13 96.9 80 21 126/61 (82) 99 05/22/17 20:13 97 T-piece 6.00 21 05/22/17 20:00 96.2 92 20 100/54 (69) 100 05/22/17 20:00 64 I/O 05/22/17 05/22/17 05/22/17 05/23/17 05/23/17 05/23/17 07:00 15:00 23:00 07:00 15:00 23:00 Intake Total 100 ml 1000 ml 0 ml Output Total 300 ml 0 ml 500 ml Balance -200 ml 1000 ml -500 ml 0 ml Intake Oral 0 ml IV Total 100 ml 1000 ml Output Urine Total 300 ml 500 ml Tube Feeding Residual Discard 0 ml # Voids 0 # Bowel Movements 1 Result Diagram: 05/23/17 0658 05/23/17 0658 Imaging Last Impressions Head CT 05/22/17 0000 Signed Impressions: Service Date/Time: Monday, May 22, 2017 05:17 - CONCLUSION: Large bilateral areas of prior infarction involving the frontal parietal lobes. An acute abnormality is not seen. Nghia Camacho MD Cervical Spine CT 05/22/17 0000 Signed Impressions: Service Date/Time: Monday, May 22, 2017 05:17 - CONCLUSION: Degenerative change. Nghia Camacho MD Abdomen/Pelvis CT 05/22/17 0000 Signed Impressions: Service Date/Time: Monday, May 22, 2017 12:29 - CONCLUSION: 1. Large posterior decubitus ulcer just to the right of midline just below the coccyx bone. No loculated fluid collections are seen to suggest an abscess. 2. Large stable calcified gallstone in the gallbladder. No biliary tract obstruction. No change compared to 2015. 3. Gastrostomy tube in the stomach. Clif Jacobo MD Objective Remarks GENERAL: This is a well-nourished, well-developed patient, in no apparent distress. Very lethargic follows no commands SKIN: No rashes, ecchymoses or lesions. Cool and dry. Large sacral decub stage IV plus NECK: Tracheostomy in place CARDIOVASCULAR: Regular rate and rhythm without murmurs, gallops, or rubs. S1- S2 no S3 or S4 RESPIRATORY: Clear to auscultation. Breath sounds equal bilaterally. No wheezes , rales, Scattered rhonchi GASTROINTESTINAL: Abdomen soft, non-tender, nondistended. No hepato-splenomegaly , or palpable masses. No guarding. PEG tube in place Brown catheter in place MUSCULOSKELETAL: Extremities without clubbing, cyanosis, or edema. No joint tenderness, effusion, or edema noted. No calf tenderness. Negative Homans sign bilaterally. NEUROLOGICAL: Awake, tracking. Cannot assess CN, strength,/sensory, insight and judgment, mood and behavior 2/2 clinical status, appears at baseline. Nonverbal at baseline. A/P Problem List: (1) Alcohol use ICD Code: Z78.9 - Other specified health status Status: Resolved (2) Fall ICD Code: W19.XXXA - Unspecified fall, initial encounter (3) Pressure ulcer of sacral region, stage 4 ICD Code: L89.154 - Pressure ulcer of sacral region, stage 4 Status: Acute (4) Encephalopathy ICD Code: G93.40 - Encephalopathy, unspecified Status: Acute (5) COPD (chronic obstructive pulmonary disease) ICD Code: J44.9 - Chronic obstructive pulmonary disease, unspecified Status: Chronic (6) UTI (urinary tract infection) ICD Code: N39.0 - Urinary tract infection, site not specified Status: Acute (7) Atrial fibrillation ICD Code: I48.91 - Unspecified atrial fibrillation Assessment and Plan Urinary tract infection we'll treat with Rocephin 2 g IV daily. Monitor VS, Monitor Ucx and blood cx Chronic decubitus ulcer worsening wound care evaluated patient .discused with Sheen will place vound vac Chronic respiratory failure on trach at baseline. Continue meds, continue suctioning. COPD continue on neb treatments as needed. Chronic custodial resident Chronic atrial fibrillation restart home meds . Monitor Chronic cardiomyopathy with an EF of 35%, restart home meds History of [place] status post multiple infarcts Chronic encephalopathy at baseline History of multiple strokes Continue physical therapy and occupational therapy Continue current medications Guarded prognosis Code Status Full code Discussed Condition With NurseAlma from wound care Problem Qualifiers (1) UTI (urinary tract infection): Qualified Codes: N39.0 - Urinary tract infection, site not specified; R31.9 - Hematuria, unspecified Angela Trejo MD May 23, 2017 18:37
[2017-05-24] VITALS (8 sets, daily range): BP systolic 117–153; BP diastolic 60–69; PULSE 75–99; RESP 18–20; TEMP 97.4–98.8; O2SAT 96–99
[2017-05-24] MEDS: RESP: ALBUTEROL 2.5 MG/3 ML NEB (SCH) INH ×6 (00:34→20:18)
[2017-05-24] MEDS: HYOSCYAMINE SOLN 0.125 MG/ML 15 ML BTL G-TUBE SCH ×4 (04:48→21:39)
[2017-05-24] MEDS: STERILE WATER FOR INJ SCH ×3 (04:49→21:35)
[2017-05-24] MEDS: METOPROLOL TARTRATE 50 MG TAB G-TUBE SCH ×4 (04:49→18:48)
[2017-05-24 07:09] LABS: INTERNATIONAL NORMALIZED RATIO 3.3 RATIO; PROTHROMBIN TIME - PATIENT 38.6 SEC (9.8-11.6)
[2017-05-24] MEDS: INSULIN ASPART SUPPLEMENTAL SCALE SQ SCH ×4 (08:00→21:00)
--- NOTE | 2017-05-24 08:33 | HHI.PR ---
Subjective Remarks Patien tinbed at baseline. Doesn;t appear in distress. No events overnight. Plan for wound vac placement. Objective Vitals Vital Signs Date Time Temp Pulse Resp B/P (MAP) Pulse Ox O2 Delivery O2 Flow Rate FiO2 05/24/17 08:10 98.6 99 20 147/69 (95) 97 05/24/17 04:00 98.8 91 18 117/63 (81) 97 05/24/17 00:00 97.6 89 18 133/60 (84) 97 05/23/17 21:12 96 T-piece 6.00 21 05/23/17 20:00 98.0 83 18 107/68 (81) 100 05/23/17 16:00 98.5 80 20 131/72 (91) 97 05/23/17 12:00 98.7 97 19 117/59 (78) 96 I/O 05/23/17 05/23/17 05/23/17 05/24/17 05/24/17 05/24/17 07:00 15:00 23:00 07:00 15:00 23:00 Intake Total 0 ml 100 ml 4375 ml 0 ml Output Total 500 ml 800 ml 1000 ml Balance -500 ml 0 ml -700 ml 3375 ml 0 ml Intake Oral 0 ml 0 ml IV Total 3053 ml Tube Feeding 1222 ml Other 100 ml 100 ml Output Urine Total 500 ml 800 ml 1000 ml # Bowel Movements 1 1 Result Diagram: 05/23/17 0658 05/23/17 0658 Imaging Last Impressions Head CT 05/22/17 0000 Signed Impressions: Service Date/Time: Monday, May 22, 2017 05:17 - CONCLUSION: Large bilateral areas of prior infarction involving the frontal parietal lobes. An acute abnormality is not seen. Nghia Camacho MD Cervical Spine CT 05/22/17 0000 Signed Impressions: Service Date/Time: Monday, May 22, 2017 05:17 - CONCLUSION: Degenerative change. Nghia Camacho MD Abdomen/Pelvis CT 05/22/17 0000 Signed Impressions: Service Date/Time: Monday, May 22, 2017 12:29 - CONCLUSION: 1. Large posterior decubitus ulcer just to the right of midline just below the coccyx bone. No loculated fluid collections are seen to suggest an abscess. 2. Large stable calcified gallstone in the gallbladder. No biliary tract obstruction. No change compared to 2015. 3. Gastrostomy tube in the stomach. Clif Jacobo MD Objective Remarks GENERAL: This is a well-nourished, well-developed patient, in no apparent distress. Very lethargic follows no commands SKIN: No rashes, ecchymoses or lesions. Cool and dry. Large sacral decub stage IV plus NECK: Tracheostomy in place CARDIOVASCULAR: Regular rate and rhythm without murmurs, gallops, or rubs. S1- S2 no S3 or S4 RESPIRATORY: Clear to auscultation. Breath sounds equal bilaterally. No wheezes , rales, Scattered rhonchi GASTROINTESTINAL: Abdomen soft, non-tender, nondistended. No hepato-splenomegaly , or palpable masses. No guarding. PEG tube in place Brown catheter in place MUSCULOSKELETAL: Extremities without clubbing, cyanosis, or edema. No joint tenderness, effusion, or edema noted. No calf tenderness. Negative Homans sign bilaterally. NEUROLOGICAL: Awake, tracking. Cannot assess CN, strength,/sensory, insight and judgment, mood and behavior 2/2 clinical status, appears at baseline. Nonverbal at baseline. A/P Problem List: (1) Alcohol use ICD Code: Z78.9 - Other specified health status Status: Resolved (2) Fall ICD Code: W19.XXXA - Unspecified fall, initial encounter (3) Pressure ulcer of sacral region, stage 4 ICD Code: L89.154 - Pressure ulcer of sacral region, stage 4 Status: Acute (4) Encephalopathy ICD Code: G93.40 - Encephalopathy, unspecified Status: Acute (5) COPD (chronic obstructive pulmonary disease) ICD Code: J44.9 - Chronic obstructive pulmonary disease, unspecified Status: Chronic (6) UTI (urinary tract infection) ICD Code: N39.0 - Urinary tract infection, site not specified Status: Acute (7) Atrial fibrillation ICD Code: I48.91 - Unspecified atrial fibrillation Assessment and Plan Urinary tract infection we'll treat with Rocephin 2 g IV daily. Monitor VS, Monitor Ucx with enterococcus species and blood cx NTD Chronic decubitus ulcer worsening wound care evaluated patient .discussed with Vernell will place vound vac today. Chronic respiratory failure on trach at baseline. Continue meds, continue suctioning. COPD continue on neb treatments as needed. Chronic shelter resident Chronic atrial fibrillation restart home meds . Monitor Chronic cardiomyopathy with an EF of 35%, restart home meds History of moyamoya status post multiple infarcts Chronic encephalopathy at baseline History of multiple strokes Continue physical therapy and occupational therapy Continue current medications Code Status Full code Discussed Condition With Nurse, Alma from wound care DC plan: DC to SNF poss tomorrow if Blood cx negative. Problem Qualifiers (1) UTI (urinary tract infection): Qualified Codes: N39.0 - Urinary tract infection, site not specified; R31.9 - Hematuria, unspecified Angela Trejo MD May 24, 2017 08:33
[2017-05-24] MEDS: SODIUM CHLORIDE 0.9% FLUSH 10 ML FLUSH IV FLUSH SCH ×2 (09:00→21:00)
[2017-05-24] MEDS: BUDESONIDE-FORMOTEROL 160/4.5 MCG INHALER INH SCH ×2 (09:00→21:00)
[2017-05-24] MEDS: SODIUM HYPOCHLORITE 0.125% 500 ML BTL TOPICAL SCH (09:00)
[2017-05-24] MEDS: cefTRIAXone INJ 2,000 MG in SODIUM CHLORIDE 0.9% INJ 100 ML IV SCH (11:12)
[2017-05-24] MEDS: levETIRAcetam 500 MG/5 ML UDC PEG SCH ×2 (11:13→22:15)
[2017-05-24] MEDS: DOCUSATE SODIUM 100 MG/10 ML UDC PO SCH ×2 (11:14→21:31)
[2017-05-24] MEDS: carBAMazepine SUSP 200 MG/10 ML UDC PEG SCH ×2 (11:14→21:31)
[2017-05-24] MEDS: FERROUS SULFATE 300 MG /5ML UDC PEG SCH ×2 (11:15→21:31)
[2017-05-24] MEDS: FUROSEMIDE 20 MG TAB PEG SCH (11:16)
[2017-05-24] MEDS: FOLIC ACID 1 MG TAB PEG SCH (11:16)
[2017-05-24] MEDS: BROMOCRIPTINE MESYLATE 2.5 MG TAB OG-TUBE SCH ×2 (11:17→21:30)
[2017-05-24] MEDS: ASCORBIC ACID 500 MG TAB PEG SCH ×2 (11:17→21:31)
[2017-05-24] MEDS: FAMOTIDINE 20 MG TAB PEG SCH ×2 (11:17→21:30)
[2017-05-24] MEDS: SACUBITRIL/VALSARTAN 24 MG-26 MG TAB PEG SCH ×2 (11:18→21:30)
[2017-05-24] MEDS: ATORVASTATIN 40 MG TAB G-TUBE SCH (11:19)
[2017-05-24] MEDS: POTASSIUM CHLORIDE 20 MEQ PWD PACKET PEG SCH (11:21)
[2017-05-24] MEDS: COLLAGENASE OINT 30 GM TUBE TOPICAL SCH (11:24)
[2017-05-24] MEDS: JUVEN POWDER 1 PACK G-TUBE SCH ×2 (11:32→21:00)
[2017-05-24] MEDS: SODIUM CHLOR 0.9% 1000 ML INJ 1,000 ML IV SCH ×2 (11:43→21:34)
--- NOTE | 2017-05-24 16:28 | PD.WCN.NOT ---
Neg Pressure Wound Therapy Wound Location Wound Location: Sacrococcygeal area Wound Description Length: ~7cm Width: ~4cm Depth: 4.4 cm Undermining: undermining noted from 9 to 4 o'clock, deepest at 9 o'clock 6.3cm Wound bed appearance: Wound presents with ~40% muscle tissue, ~20% bone, 20% red non granulation tissue and ~20% dark red non granulation tissue. Wound has no foul odor and appears clean. Periwound is unremarkable. Wound margins are uneven and wound has overall an oval shape, with epibole from 9 to 12 o'clock. Periwound appearance: Unremarkable Settings Suction: 125 mmHg, Continuous Intensity: Low Other Information: Bridged, Windowpaned Foam type: Black Number of pieces: 2 Additonal Information Patinet seen today for wound VAC application for wound to sacrococcygeal area. wound description and measurements noted above. Removed moist to dry dressing in place to reveal stage 4 pressure injury.Cleansed wound and Irrigated wound with 60 ml of normal saline and applied skin prep to periwound and up to L hip area and let dry. Window paned wound with VAC drape and bridged drape up to L hip. Applied stoma paste to creases in the skin to seal VAC. Protected exposed bone with adaptic (oil emlusion gauze) before applying granufoam cut into long strip and coiled in to wound bed in a cinnamon roll fashion to reach undermined area. Applied another small piece of granufoam to include all wound bed in VAC dressing. Bridged granufoam over VAC drape to L hip area.Applied sensi trac pad in place with mushroom cap of granufoam over bridged area on L hip.Covered all exposed granufoam with additional VAC drape to seal dressing Wound VAC suctioning at 125mm/hg low continuous suction without leaks. Patient positioned to L side with pillow in place for support. Next VAC dressing change is due on 05/27/2017. Alma [facility] May 24, 2017 16:28
[2017-05-25] VITALS: BP 129/59; PULSE 88; RESP 18; TEMP 96.5; O2SAT 97
[2017-05-25] MEDS: METOPROLOL TARTRATE 50 MG TAB G-TUBE SCH ×3 (00:23→13:01)
[2017-05-25] MEDS: RESP: ALBUTEROL 2.5 MG/3 ML NEB (SCH) INH ×3 (00:28→09:11)
[2017-05-25 00:29] VITALS: O2SAT 99
[2017-05-25 04:00] VITALS: BP 139/66; PULSE 95; RESP 18; TEMP 97.6; O2SAT 97
[2017-05-25] MEDS: HYOSCYAMINE SOLN 0.125 MG/ML 15 ML BTL G-TUBE SCH ×2 (05:29→08:06)
[2017-05-25] MEDS: STERILE WATER FOR INJ SCH (05:29)
[2017-05-25] MEDS: SODIUM CHLOR 0.9% 1000 ML INJ 1,000 ML IV SCH (05:34)
[2017-05-25] MEDS: cefTRIAXone INJ 2,000 MG in SODIUM CHLORIDE 0.9% INJ 100 ML IV SCH (07:55)
[2017-05-25] MEDS: levETIRAcetam 500 MG/5 ML UDC PEG SCH (07:58)
[2017-05-25] MEDS: carBAMazepine SUSP 200 MG/10 ML UDC PEG SCH (07:59)
[2017-05-25 08:00] VITALS: BP 143/69; PULSE 92; RESP 20; TEMP 98.1; O2SAT 95
[2017-05-25] MEDS: INSULIN ASPART SUPPLEMENTAL SCALE SQ SCH ×2 (08:00→11:59)
[2017-05-25] MEDS: FAMOTIDINE 20 MG TAB PEG SCH (08:00)
[2017-05-25] MEDS: SACUBITRIL/VALSARTAN 24 MG-26 MG TAB PEG SCH (08:01)
[2017-05-25] MEDS: BROMOCRIPTINE MESYLATE 2.5 MG TAB OG-TUBE SCH (08:01)
[2017-05-25] MEDS: ATORVASTATIN 40 MG TAB G-TUBE SCH (08:02)
[2017-05-25] MEDS: FUROSEMIDE 20 MG TAB PEG SCH (08:02)
[2017-05-25] MEDS: FOLIC ACID 1 MG TAB PEG SCH (08:03)
[2017-05-25] MEDS: ASCORBIC ACID 500 MG TAB PEG SCH (08:03)
[2017-05-25] MEDS: POTASSIUM CHLORIDE 20 MEQ PWD PACKET PEG SCH (08:04)
[2017-05-25] MEDS: FERROUS SULFATE 300 MG /5ML UDC PEG SCH (08:05)
[2017-05-25] MEDS: DOCUSATE SODIUM 100 MG/10 ML UDC PO SCH (08:05)
[2017-05-25] MEDS: BUDESONIDE-FORMOTEROL 160/4.5 MCG INHALER INH SCH (08:08)
[2017-05-25] MEDS: SODIUM CHLORIDE 0.9% FLUSH 10 ML FLUSH IV FLUSH SCH (08:08)
[2017-05-25] MEDS: JUVEN POWDER 1 PACK G-TUBE SCH (08:09)
[2017-05-25] MEDS: SODIUM HYPOCHLORITE 0.125% 500 ML BTL TOPICAL SCH (08:10)
[2017-05-25] MEDS: COLLAGENASE OINT 30 GM TUBE TOPICAL SCH (08:10)
--- NOTE | 2017-05-25 08:13 | HHI.DS ---
Discharge Summary Admission Date May 22, 2017 at 10:47 Discharge Date: May 25, 2017 Admitting Diagnosis sepsis, urinary tract infection, stage 4 sacral decubitus ulcer. (1) Alcohol use ICD Code: Z78.9 - Other specified health status Status: Resolved (2) Fall ICD Code: W19.XXXA - Unspecified fall, initial encounter (3) Pressure ulcer of sacral region, stage 4 ICD Code: L89.154 - Pressure ulcer of sacral region, stage 4 Status: Acute (4) Encephalopathy ICD Code: G93.40 - Encephalopathy, unspecified Status: Acute (5) COPD (chronic obstructive pulmonary disease) ICD Code: J44.9 - Chronic obstructive pulmonary disease, unspecified Status: Chronic (6) UTI (urinary tract infection) ICD Code: N39.0 - Urinary tract infection, site not specified Status: Acute (7) Atrial fibrillation ICD Code: I48.91 - Unspecified atrial fibrillation Procedures none Brief History - From Admission Patient is a 66-year-old female with history of chronic encephalopathy, COPD, hypertension, epilepsy. Who was sent in from [facility] for evaluation of head trauma. Per the report from the facility. They said she was in the bed at 2 AM but then when they reevaluated at 4 AM was found to be on the floor. Patient is status post tracheostomy, PEG tube placement is nonverbal and not to mobile. Patient is at her baseline mental status, it is unknown how patient appeared on the floor Patient found to have a urinary tract infection as well as a larger sacral decubitus. The emergency room physician did not feel comfortable with her going back to the residential facility at this time and we will admit her CBC/BMP: 05/23/17 0658 05/23/17 0658 Significant Findings Laboratory Tests Test 05/22/17 19:31 05/23/17 06:58 05/24/17 06:20 05/25/17 07:31 Hemoglobin 9.4 GM/DL (11.6-15.3) Hematocrit 30.1 % (35.0-46.0) Mean Corpuscular Volume 74.9 FL (80.0-100.0) Mean Corpuscular Hemoglobin 23.3 PG (27.0-34.0) Mean Corpuscular Hemoglobin Concent 31.1 % (32.0-36.0) Red Cell Distribution Width 20.8 % (11.6-17.2) Platelet Count 548 TH/MM3 (150-450) Neutrophils (%) (Auto) 71.0 % (16.0-70.0) Prothrombin Time 20.7 SEC (9.8-11.6) 38.6 SEC (9.8-11.6) Creatinine 0.46 MG/DL (0.50-1.00) Random Glucose 116 MG/DL (74-106) Albumin 2.1 GM/DL (3.4-5.0) Calcium Level 8.3 MG/DL (8.5-10.1) Alkaline Phosphatase 169 U/L (45-117) Thyroid Stimulating Hormone 3rd Gen 3.920 uIU/ML (0.358-3.740) Imaging Last Impressions Head CT 05/22/17 0000 Signed Impressions: Service Date/Time: Monday, May 22, 2017 05:17 - CONCLUSION: Large bilateral areas of prior infarction involving the frontal parietal lobes. An acute abnormality is not seen. Nghia Camacho MD Cervical Spine CT 05/22/17 0000 Signed Impressions: Service Date/Time: Monday, May 22, 2017 05:17 - CONCLUSION: Degenerative change. Nghia Camacho MD Abdomen/Pelvis CT 05/22/17 0000 Signed Impressions: Service Date/Time: Monday, May 22, 2017 12:29 - CONCLUSION: 1. Large posterior decubitus ulcer just to the right of midline just below the coccyx bone. No loculated fluid collections are seen to suggest an abscess. 2. Large stable calcified gallstone in the gallbladder. No biliary tract obstruction. No change compared to 2015. 3. Gastrostomy tube in the stomach. Clif Jacobo MD PE at Discharge GENERAL: This is a well-nourished, well-developed patient, in no apparent distress. Very lethargic follows no commands SKIN: No rashes, ecchymoses or lesions. Cool and dry. Large sacral decub stage IV plus NECK: Tracheostomy in place CARDIOVASCULAR: Regular rate and rhythm without murmurs, gallops, or rubs. S1- S2 no S3 or S4 RESPIRATORY: Clear to auscultation. Breath sounds equal bilaterally. No wheezes , rales, Scattered rhonchi GASTROINTESTINAL: Abdomen soft, non-tender, nondistended. No hepato-splenomegaly , or palpable masses. No guarding. PEG tube in place Brown catheter in place MUSCULOSKELETAL: Extremities without clubbing, cyanosis, or edema. No joint tenderness, effusion, or edema noted. No calf tenderness. Negative Homans sign bilaterally. NEUROLOGICAL: Awake, tracking. Cannot assess CN, strength,/sensory, insight and judgment, mood and behavior 2/2 clinical status, appears at baseline. Nonverbal at baseline. Pt update on day of discharge Appears at baseline. No acute events overnight. VSS Spoke with microbiology labs blood cultures NTD Hospital Course Patient is a 66-year-old female with history of chronic encephalopathy, COPD, hypertension, epilepsy. Who was sent in from [facility] for evaluation of head trauma. Per the report from the facility. They said she was in the bed at 2 AM but then when they reevaluated at 4 AM was found to be on the floor. Patient is status post tracheostomy, PEG tube placement is nonverbal and not to mobile. Patient is at her baseline mental status, it is unknown how patient appeared on the floor Patient found to have a urinary tract infection as well as a larger sacral decubitus. The emergency room physician did not feel comfortable with her going back to the residential facility at this time and we will admit her Patient had CT head at baseline. Patient is at her baseline. She has a stage 4 sacral wound, , wound care recommends wound vac. Patient to have wound vac at [facility]. Also patient with enterococcus UTI, received rocephin, brit on PO antibiotic. Wound vac and nursing for wound care at [facility] DC in stable conditin to f/u as OP with PCP and consultants. Urinary tract infection we'll treat with Rocephin 2 g IV daily. Monitor VS, Monitor Ucx with enterococcus species and blood cx NTD Chronic decubitus ulcer worsening wound care evaluated patient .discussed with Vernell will place vound vac today. Chronic respiratory failure on trach at baseline. Continue meds, continue suctioning. COPD continue on neb treatments as needed. Chronic halfway resident Chronic atrial fibrillation restart home meds . Monitor Chronic cardiomyopathy with an EF of 35%, restart home meds History of moyamoya status post multiple infarcts Chronic encephalopathy at baseline History of multiple strokes Continue physical therapy and occupational therapy Continue current medications Code Status Full code Discussed Condition With Nurse, Alma from wound care DC plan: DC to SNF poss tomorrow if Blood cx negative. Pt Condition on Discharge: Stable Discharge Disposition: Discharge to SNF Discharge Time: > 30 minutes Discharge Instructions DIET: Follow Instructions for: Heart Healthy Diet, On Tube Feeding Additional Diet Instructions: JEVITY 1.5 CONTINUOUS VIA G-TUBE GOAL RATE OF 50ML/HR Activities you can perform: Regular-No Restrictions Follow up Referrals: PCP Follow-up - 2-3 Days New Medications: Lactobacillus Acidophilus (Lactinex) 1 Chew 1 TAB CHEW DAILY for Nutritional Supplement for 30 Days, #30 TAB 0 Refills Linezolid (Linezolid) 600 Mg Tab 600 MG PO Q12H for Infection for 14 Days, #28 TAB 0 Refills Continued Medications: Albuterol 18 GM Inh (Ventolin Hfa 18 GM Inh) 90 Mcg/Act Aer 1 PUFF INH Q4H PRN for SHORTNESS OF BREATH, #1 INHALER 3 Refills Albuterol Neb (Albuterol Neb) 2.5 Mg/3 Ml Neb 2.5 MG NEB Q4HR NEB for Breathing Treatment, #60 NEBULE 3 Refills While awake Ascorbic Acid (C 500/Constance Hips) 500 Mg Tab 500 MG PEG BID for Supplement, #30 TAB Atorvastatin (Atorvastatin) 40 Mg Tab 40 MG G-TUBE DAILY for Cholesterol Management, #30 TAB Bromocriptine (Bromocriptine) 2.5 Mg Tab 2.5 MG OG-TUBE Q12HR for Agitation, #30 TAB Carbamazepine (Carbamazepine) 200 Mg/10 Ml Oral.susp 200 MG PEG Q12HR for Seizure Control, #1 BOTTLE Collagenase (Santyl) 250 Unit/Gram Oin 1 APPLIC TOPICAL DAILY for Wound, #1 TUBE Docusate Sodium Liq (Docusate Sodium Liq) 50 Mg/5 Ml Liq 100 MG PO Q12HR for constipation, #60 ML Famotidine (Famotidine) 20 Mg Tab 20 MG PEG BID for GERD, #60 TAB Ferrous Sulfate Liq (Ferrous Sulfate Liq) 300 Mg/5 Ml Soln 300 MG PEG BID for Anemia for 30 Days, #1 BOTTLE Fluticasone-Salmeterol Inh (Advair Diskus Inh) 250-50 Mcg/Blist Aer 1 PUFF INH BID, #1 INHALER 3 Refills Rinse mouth after use. Folic Acid (Folic Acid) 1 Mg Tablet 1 MG PEG DAILY for Supplement, #30 TAB Furosemide (Furosemide) 20 Mg Tab 20 MG PEG DAILY for Swelling, #30 TAB Hyoscyamine Liq Drops (Hyosyne Liq Drops) 0.125 Mg/Ml Soln 0.125 MG G-TUBE Q6H for Secretions for 30 Days, #1 BOTTLE Levetiracetam Liq (Keppra Liq) 500 Mg/5 Ml Soln 1000 MG PEG Q12HR for Seizure Control, #1 BOTTLE Metoprolol Tartrate (Metoprolol Tartrate) 25 Mg Tab 50 MG G-TUBE Q6HR for Heart rate, #90 TAB Nutritional Supplements (Corby Nutrivigor) 7 Gram-7 Gram-1.5 Gram Pow 1 PACK G-TUBE BID for Nutrition, #30 PKT Potassium Chloride Powder (Potassium Chloride Powder) 20 Meq Powderpack 20 MEQ PEG DAILY for Lasix, #30 PKG Sacubitril-Valsartan (Entresto) 24-26 Mg Tab 1 TAB PEG BID for Heart, #30 TAB Sodium Hypochlorite Topical (Dakins Solution Quarter Strength Topical) 0.125% Soln 0 ML TOPICAL DAILY for Wound, #1 BOTTLE Warfarin (Coumadin) 10 Mg Tab 10 MG PO DAILY@1600 for Blood thinner, #30 TAB Water For Injection, Sterile (Sterile Water For Injecti) 1 Inj Inj 100 ML G-TUBE Q8HR for Tube feeds, #60 INJECTION Angela Trejo MD May 25, 2017 08:13
[2017-05-25 08:18] LABS: PROTHROMBIN TIME - PATIENT 22.3 SEC (9.8-11.6)
[2017-05-25 09:12] VITALS: O2SAT 93
[2017-05-25] MEDS ORDERED: LINE1TAB PO (10:32)
[2017-05-25] MEDS ORDERED: LACTCHW3 CHEW (10:34)
[2017-05-25 12:00] VITALS: BP 128/62; PULSE 95; RESP 22; TEMP 97.9; O2SAT 96
--- NOTE | 2017-05-27 18:18 | PQ ---
Physician Query Response Document PATIENT: RYAN BLACKMON : 1950 ADMIT DATE: 05/22/2017 10:47 AM DISCH DATE: 05/25/2017 1:47 PM RESPONDING PROVIDER #: itzel QUERY TEXT: Rule Out Sepsis Clarification Sepsis is documented in the Medical Record. Please clarify whether: -- Patient has sepsis - Please document confirmed, suspected or probable causative organism - Please document confirmed, suspected or probable localized infection - Please clarify if sepsis is related to a device - Please clarify if sepsis was present on admission -- Sepsis was ruled out (include corresponding diagnosis for patient?s clinical picture and treatment ) -- Patient had sepsis which is resolved -- Other, please specify If you have any additional questions/comments and/or concerns, please do not hesitate to reach out to the CDI/Coding Hotline, Ext. [phone]. The patient's Clinical Indicators include: H D/S - Lists sepsis as Admitting diagnosis. No other mention of sepsis in chart. Blood cultures - no growth in 3 days. No sepsis criteria documented in ED record. Query created by: Prudence Gonzales on 05/26/2017 4:52 PM RESPONSE TEXT: Patient doesn't meet sepsis criteria on this admission She had tachycardia but no fever, leukocytosis eyc. Patient with UTI. Sacral wounds nut no sepsis Electronically signed by: Angela Trejo MD 05/27/2017 6:14 PM
== END 2017-05-25 13:47 | DRG 689 ==
LOC: NEPE 04:42 → NEDA 10:47 → N07A 17:21
PROVIDERS: ADMIT Hospitalist; ATTEND Hospitalist
DX: N39.0 Urinary tract infection, site not specified (principal); G93.40 Encephalopathy, unspecified; L89.154 Pressure ulcer of sacral region, stage 4; J96.10 Chronic respiratory failure, unspecified whether with hypoxia or hypercapnia; Z93.0 Tracheostomy status; I42.9 Cardiomyopathy, unspecified; B95.2 Enterococcus as the cause of diseases classified elsewhere; J44.9 Chronic obstructive pulmonary disease, unspecified; M19.90 Unspecified osteoarthritis, unspecified site; I10 Essential (primary) hypertension; Z86.73 Personal history of transient ischemic attack (TIA), and cerebral infarction without residual deficits; B19.20 Unspecified viral hepatitis C without hepatic coma; I25.2 Old myocardial infarction; Z93.1 Gastrostomy status; I48.2 Chronic atrial fibrillation; S00.81XA Abrasion of other part of head, initial encounter; W06.XXXA Fall from bed, initial encounter; Y92.129 Unspecified place in nursing home as the place of occurrence of the external cause; R56.9 Unspecified convulsions; Z87.891 Personal history of nicotine dependence
CPT/HCPCS: 70450; 72125; 74177; 80048; 80053; 81001; 82948; 83036; 83605; 83735; 84100; 84439; 84443; 85025; 85610; 85730; 87040; 87077; 87086; 87186; 93005; 94640; 94664; 96365; A7520; J0696; J1815; J7030; J7613; Q9963; Q9967